=== PATIENT | female | born 1980 | race American Indian/Alaskan Native ===

== ENCOUNTER 2019-09-05 09:51 | Emergency (ER) | payer SELFPAY ==
[2019-09-05] MEDS ORDERED: ALBUTEROL 2.5 MG/3 ML NEBU IH ONE (10:27)
[2019-09-05] MEDS ORDERED: IPRATROPIUM 0.02% NEBU 2.5 ML IH ONE (10:27)
[2019-09-05] MEDS ORDERED: methylPREDNISolone Sod Succinate 125 MG/2 ML INJ IV ONE (10:27)
[2019-09-05] MEDS ORDERED: FUROSEMIDE 40 MG/4 ML INJ IV ONE ×2 (10:30→14:28)
[2019-09-05] MEDS ORDERED: NITROGLYCERIN 2% OINT 1 GM TP ONE (10:32)
--- NOTE | 2019-09-05 10:34 | Emergency Department Report ---
ED Shortness of Breath HPI - General Chief Complaint: Dyspnea/Respdistress Stated Complaint: DIFFICULTY BREATHING Time Seen by Provider: 09/05/19 10:14 Source: patient Mode of arrival: Stretcher Limitations: No Limitations - History of Present Illness Initial Comments: Mrs. Mclean is a 39-year-old female with history of hypertension who presents with cough wheezing fever for 2 weeks. [place] No other sick contacts. No previous history of lung disease. She arrived per EMS. She has not been taking her blood pressure medication on a regular basis. MD Complaint: shortness of breath -: Gradual, week(s) (2) Severity: severe Consistency: constant Improves With: nothing Worsens With: nothing - Related Data Home Medications Medication Instructions Recorded Confirmed Last Taken Amlodipine Besylate [Norvasc] 10 mg PO DAILY 09/05/19 09/05/19 09/04/19 Allergies Allergy/AdvReac Type Severity Reaction Status Date / Time No Known Allergies Allergy Unverified 09/05/19 10:15 ED Review of Systems ROS: Stated complaint: DIFFICULTY BREATHING Other details as noted in HPI Comment: All other systems reviewed and negative Constitutional: denies: fever, malaise Respiratory: cough, shortness of breath, wheezing Cardiovascular: denies: chest pain Gastrointestinal: denies: abdominal pain, nausea, vomiting ED Past Medical Hx - Past Medical History Previous Medical History?: Yes Hx Hypertension: Yes Hx Heart Attack/AMI: Yes - Surgical History Past Surgical History?: Yes Additional Surgical History: c section - Social History Smoking Status: Never Smoker Substance Use Type: None - Medications Home Medications: Home Medications Medication Instructions Recorded Confirmed Last Taken Type Amlodipine Besylate [Norvasc] 10 mg PO DAILY 09/05/19 09/05/19 09/04/19 History ED Physical Exam - General Limitations: No Limitations General appearance: alert, anxious, in distress, other (Tripod position obvious work of breathing patient appears uncomfortable) - Head Head exam: Present: atraumatic, normocephalic - Eye Eye exam: Present: normal appearance - ENT ENT exam: Present: mucous membranes moist - Neck Neck exam: Present: normal inspection, full ROM - Respiratory Respiratory exam: Present: respiratory distress, rales, decreased breath sounds, prolonged expiratory. Absent: chest wall tenderness - Cardiovascular Cardiovascular Exam: Present: normal rhythm, tachycardia, normal heart sounds. Absent: systolic murmur, diastolic murmur, rubs, gallop - GI/Abdominal GI/Abdominal exam: Present: soft, normal bowel sounds. Absent: distended, tenderness, guarding, rebound - Extremities Exam Extremities exam: Present: normal inspection - Neurological Exam Neurological exam: Present: alert, oriented X3 - Psychiatric Psychiatric exam: Present: normal affect, normal mood - Skin Skin exam: Present: warm, dry, intact, normal color. Absent: rash ED Course Vital Signs 09/05/19 09/05/19 09/05/19 10:00 10:10 10:30 Temperature 98.5 F Pulse Rate 110 H 114 H 106 H Respiratory 22 22 16 Rate Blood Pressure 251/168 251/168 Blood Pressure [Left] O2 Sat by Pulse 97 96 Oximetry 09/05/19 09/05/19 09/05/19 10:58 11:00 11:30 Temperature Pulse Rate 104 H 92 H 90 Respiratory 15 17 Rate Blood Pressure 249/144 249/144 225/149 Blood Pressure 225/149 [Left] O2 Sat by Pulse 97 98 Oximetry 09/05/19 09/05/19 09/05/19 12:04 12:25 12:30 Temperature Pulse Rate 92 H 85 Respiratory 13 Rate Blood Pressure 218/130 234/137 234/137 Blood Pressure [Left] O2 Sat by Pulse 97 99 Oximetry 09/05/19 09/05/19 09/05/19 12:46 12:58 13:27 Temperature Pulse Rate 87 86 82 Respiratory 15 Rate Blood Pressure 195/137 Blood Pressure 195/137 182/115 [Left] O2 Sat by Pulse Oximetry ED Medical Decision Making - Lab Data Result diagrams: 09/05/19 10:43 09/05/19 10:43 - Radiology Data Radiology results: report reviewed AP portable chest: Mild cardiomegaly with interstitial pulmonary edema no infiltrate - Medical Decision Making Hypertensive urgency, acute new onset congestive heart failure, pulmonary edema, admitted to the hospital service. Critical care attestation.: If time is entered above; I have spent that time in minutes in the direct care of this critically ill patient, excluding procedure time. ED Disposition Clinical Impression: New onset of congestive heart failure, Hypertensive emergency, Pulmonary edema Disposition: OP ADMIT IP TO THIS HOSP Is pt being admited?: Yes Does the pt Need Aspirin: No Condition: Stable
[2019-09-05 11:04] LABS: Basophils # (Auto) 0.1 K/mm3 (0.0-0.1); Basophils % (Auto) 0.9 % (0.0-1.8); Eosinophils # (Auto) 0.3 K/mm3 (0.0-0.4); Eosinophils % (Auto) 2.1 % (0.0-4.3); Hematocrit 30.7 % (30.3-42.9); Hemoglobin 9.4 gm/dl (10.1-14.3); Lymphocytes # (Auto) 2.1 K/mm3 (1.2-5.4); Mean Corpuscular HGB Conc 31 % (30-34); Mean Corpuscular Volume 71 fl (79-97); Monocytes # (Auto) 0.7 K/mm3 (0.0-0.8); Monocytes % (Auto) 5.9 % (0.0-7.3); Platelet Count 550 K/mm3 (140-440); Red Blood Count 4.35 M/mm3 (3.65-5.03); Red Cell Distribution Width 17.8 % (13.2-15.2)
--- NOTE | 2019-09-05 11:05 | XRay Report ---
CHEST 1 VIEW INDICATION: Dyspnea. Shortness of breath for 3 weeks COMPARISON: None FINDINGS: Support devices: None. Heart: Mild cardiomegaly. Lungs/Pleura: Mild edema. No pleural effusion. Additional findings: None. IMPRESSION: 1. Mild cardiomegaly with mild edema. Signer Name: Reinier Barrow MD Signed: 09/05/2019 11:00 AM Workstation Name: [id number]
[2019-09-05 11:23] LABS: C-Reactive Protein 0.7 mg/dL (0.00-1.30)
--- NOTE | 2019-09-05 14:17 | Event Note ---
Date: 09/05/19 39-year-old female presents to ED for evaluation. Patient seen and evaluated in the emergency department and found to have accelerated hypertension secondary to medication noncompliance. Patient treated with antihypertensive therapy and supportive care with resolution of symptoms. Patient medically optimized and back to usual state of health. Patient counseled regarding medication noncompliance. Patient reports noncompliance with antihypertensive therapy for the past 2 months. Patient counseled and informed that noncompliance with medi cation may result in worsening symptoms and even . Patient knowledges understanding instructions. Patient reports she will attempt to be more compliant in the future. Patient instructed to follow-up with primary care physician within 3 to 5 days with blood pressure log that is taken twice a day before meals. Patient struck to follow-up with cardiology as directed. ED Physical Exam - General Limitations: No Limitations General appearance: alert, anxious, in distress, other (Tripod position obvious work of breathing patient appears uncomfortable) - Head Head exam: Present: atraumatic, normocephalic - Eye Eye exam: Present: normal appearance - ENT ENT exam: Present: mucous membranes moist - Neck Neck exam: Present: normal inspection, full ROM - Respiratory Respiratory exam: Present: respiratory distress, rales, decreased breath sounds, prolonged expiratory. Absent: chest wall tenderness - Cardiovascular Cardiovascular Exam: Present: normal rhythm, tachycardia, normal heart sounds. Absent: systolic murmur, diastolic murmur, rubs, gallop - GI/Abdominal GI/Abdominal exam: Present: soft, normal bowel sounds. Absent: distended, tenderness, guarding, rebound - Extremities Exam Extremities exam: Present: normal inspection - Neurological Exam Neurological exam: Present: alert, oriented X3 - Psychiatric Psychiatric exam: Present: normal affect, normal mood - Skin Skin exam: Present: warm, dry, intact, normal color. Absent: rash
[2019-09-05] MEDS ORDERED: LISINOPRIL 10 MG TAB PO ONE (14:20)
[2019-09-05] MEDS ORDERED: METOPROLOL TARTRATE 50 MG TAB PO ONE (15:32)
[2019-09-05] MEDS ORDERED: amLODIPine 5 MG TAB PO ONE (15:32)
[2019-09-05] MEDS ORDERED: METOPROLOL TARTRATE 25 MG TAB PO ONE (16:00)
[2019-09-05] MEDS ORDERED: amLODIPine 10 MG TAB PO ONE (16:00)
[2019-09-05 18:17] VITALS: BP 175/119
== END 2019-09-05 19:02 | disposition admitted as inpatient to this hospital (09) ==
LOC: ED 09:51
DX: I11.0 Hypertensive heart disease with heart failure (principal); I50.1 Left ventricular failure, unspecified; I16.1 Hypertensive emergency; I25.2 Old myocardial infarction; Z98.890 Other specified postprocedural states
CPT/HCPCS: 36415; 71045; 80048; 82728; 83615; 83880; 84484; 85025; 86140; 87040; 96374; 96375; 96376; 99284; J1940

== ENCOUNTER 2020-02-24 02:04 | Inpatient (IN) | payer OTHER, SELFPAY ==
[2020-02-24] MEDS ORDERED: KETOROLAC 30 MG/1 ML INJ IV ONE ×2 (02:25→15:26)
[2020-02-24] MEDS ORDERED: ONDANSETRON 4 MG/2 ML INJ IV ONE (02:25)
[2020-02-24] MEDS ORDERED: HYDROmorphone 1 MG/1 ML INJ IV ONE ×3 (02:25→06:00)
--- NOTE | 2020-02-24 02:52 | Emergency Department Report ---
ED Abdominal Pain HPI - General Chief Complaint: Abdominal Pain Stated Complaint: ABD/BACK PAIN Time Seen by Provider: 02/24/20 02:43 Source: EMS Mode of arrival: Ambulatory Limitations: No Limitations - History of Present Illness Initial Comments: 39-year-old female the past medical history of obesity, hypertension, kidney stones presents the hospital planing of abdominal pain x1 day. Pain is across to the mid and top abdomen and radiates to the right flank and back. Pain is constant feels like her stomach is "balling up" and aggravated with movement and palpation. Pain is rated 10/10 in intensity without aggravating or alleviating factors reported. She denies nausea, vomiting, melena, hematochezia, diarrhea, dysuria, or hematuria. Patient also presents with significant hypertension has been out of her blood pressure medication x1 week. She currently denies headache, blurred vision, chest pain, shortness of breath, change in urine outp ut. Currently on menstrual cycle Severity scale (0 -10): 10 - Related Data Home Medications Medication Instructions Recorded Confirmed Last Taken Amlodipine Besylate [Norvasc] 10 mg PO DAILY 09/05/19 09/05/19 09/04/19 Previous Rx's Medication Instructions Recorded Last Taken Type Furosemide [Lasix] 20 mg PO QDAY #30 tablet 09/05/19 Unknown Rx Lisinopril [Zestril] 5 mg PO DAILY #30 tablet 09/05/19 Unknown Rx Metoprolol [Lopressor TAB] 25 mg PO BID #60 tablet 09/05/19 Unknown Rx Simvastatin 40 mg PO DAILY #30 tablet 09/05/19 Unknown Rx Allergies Allergy/AdvReac Type Severity Reaction Status Date / Time No Known Allergies Allergy Unverified 09/05/19 10:15 ED Review of Systems ROS: Stated complaint: ABD/BACK PAIN Other details as noted in HPI Comment: All other systems reviewed and negative ED Past Medical Hx - Past Medical History Hx Hypertension: Yes Hx Heart Attack/AMI: Yes Additional medical history: Chronic renal insufficiency - Surgical History Additional Surgical History: c section - Social History Smoking Status: Former Smoker Substance Use Type: None - Medications Home Medications: Home Medications Medication Instructions Recorded Confirmed Last Taken Type Amlodipine Besylate [Norvasc] 10 mg PO DAILY 09/05/19 09/05/19 09/04/19 History Furosemide [Lasix] 20 mg PO QDAY #30 tablet 09/05/19 Unknown Rx Lisinopril [Zestril] 5 mg PO DAILY #30 tablet 09/05/19 Unknown Rx Metoprolol [Lopressor TAB] 25 mg PO BID #60 tablet 09/05/19 Unknown Rx Simvastatin 40 mg PO DAILY #30 tablet 09/05/19 Unknown Rx ED Physical Exam - General Limitations: No Limitations - Other Other exam information: General: Positive distress secondary to pain Head: Atraumatic Eyes: normal appearance ENT: Moist mucous membranes Neck: Normal appearance, no midline tenderness Chest: Clear to auscultation bilaterally CV: Regular rate and rhythm Abdomen: Soft, normal bowel sounds, mid and upper abdominal tenderness greatest in the epigastric and right upper quadrant, nondistended, no rebound or guarding Back: Normal inspection Extremity: Normal inspection, full range of motion Neuro: Alert O x 3, no facial asymmetry, speech clear, no gross motor sensory deficit Psych: Appropriate behavior Skin: No rash ED Course Vital Signs 02/24/20 02/24/20 02/24/20 02:14 02:19 03:10 Temperature 98.9 F 98.7 F Pulse Rate 100 H 98 H 80 Respiratory 18 17 Rate Blood Pressure 262/168 Blood Pressure 262/168 237/141 [Left] O2 Sat by Pulse 99 97 Oximetry 02/24/20 02/24/20 02/24/20 04:31 04:55 05:22 Temperature Pulse Rate 87 80 82 Respiratory 17 18 16 Rate Blood Pressure Blood Pressure 239/143 231/130 219/132 [Left] O2 Sat by Pulse 97 96 98 Oximetry ED Medical Decision Making - Lab Data Result diagrams: 02/24/20 02:53 02/24/20 02:53 Lab Results 02/24/20 02/24/20 02/24/20 Range/Units 02:53 02:53 02:53 WBC 12.7 H (4.5-11.0) K/mm3 RBC 4.65 (3.65-5.03) M/mm3 Hgb 10.0 L (10.1-14.3) gm/dl Hct 32.6 (30.3-42.9) % MCV 70 L (79-97) fl MCH 22 L (28-32) pg MCHC 31 (30-34) % RDW 17.9 H (13.2-15.2) % Plt Count 458 H (140-440) K/mm3 Lymph % (Auto) 8.9 L (13.4-35.0) % [place] % (Auto) 4.4 (0.0-7.3) % Eos % (Auto) 1.9 (0.0-4.3) % Baso % (Auto) 0.6 (0.0-1.8) % Lymph # 1.1 L (1.2-5.4) K/mm3 [place] # 0.6 (0.0-0.8) K/mm3 Eos # 0.2 (0.0-0.4) K/mm3 Baso # 0.1 (0.0-0.1) K/mm3 Seg Neutrophils % 84.2 H (40.0-70.0) % Seg Neutrophils # 10.7 H (1.8-7.7) K/mm3 Sodium 137 (137-145) mmol/L Potassium 4.2 (3.6-5.0) mmol/L Chloride 98.8 (98-107) mmol/L Carbon Dioxide 26 (22-30) mmol/L Anion Gap 16 mmol/L BUN 27 H (7-17) mg/dL Creatinine 1.7 H (0.6-1.2) mg/dL Estimated GFR 40 ml/min BUN/Creatinine Ratio 16 % Glucose 118 H (65-100) mg/dL Calcium 10.1 (8.4-10.2) mg/dL Total Bilirubin 0.20 (0.1-1.2) mg/dL AST 18 (5-40) units/L ALT 13 (7-56) units/L Alkaline Phosphatase 94 (35-129) units/L Total Protein 7.9 (6.3-8.2) g/dL Albumin 3.9 (3.9-5) g/dL Albumin/Globulin Ratio 1.0 % Lipase 232 H (13-60) units/L HCG, Qual Negative (Negative) - Radiology Data Radiology results: report reviewed CT ABDOMEN AND PELVIS WITHOUT CONTRAST INDICATION: mid and right sided abd pain. TECHNIQUE: Axial CT images were obtained through the abdomen and pelvis without IV contrast. All CT scans at this location are performed using CT dose reduction for ALARA by means of automated exposure control. COMPARISON: None available. FINDINGS: LOWER CHEST: Moderate cardiomegaly LIVER: No significant abnormality. GALLBLADDER: Surgically absent BILE DUCTS: No significant abnormality. PANCREAS: Moderate acute pancreatitis with focal 3 mm calcification in the pancreatic duct ampullary region SPLEEN: No significant abnormality. ADRENALS: No significant abnormality. RIGHT KIDNEY and URETER: 2.8 cm right renal cyst. LEFT KIDNEY and URETER: Moderately atrophic STOMACH and SMALL BOWEL: Thickening involving the third portion of duodenum likely reactive from adjacent pancreatitis COLON: No significant abnormality. APPENDIX: Normal. PERITONEUM: No free fluid. No free air. No fluid collection. LYMPH NODES: No significant adenopathy. AORTA and ARTERIES: No significant abnormality. IVC and VEINS: No significant abnormality. URINARY BLADDER: No significant abnormality. REPRODUCTIVE ORGANS: No significant abnormality. ADDITIONAL FINDINGS: None. SKELETAL SYSTEM: No significant abnormality. IMPRESSION: 1. Moderate acute pancreatitis. 2. No urinary tract calculi or hydronephrosis. - Medical Decision Making CT laboratory findings of acute pancreatitis. Patient states she drinks alcohol only on occasion and has never had pancreatitis before. Given findings of new onset pancreatitis, continued pain, and poorly controlled blood pressure despite repeated doses of labetalol IV patient will be admitted to the hospital service for further treatment. At this time patient does not have symptoms of hypertensive emergency and denies headache, shortness of breath/pulmonary edema, blurry vision, or chest pain. As per medical record patient does have previous findings of renal sufficiency and her current creatinine is Similar to her baseline Case discussed with hospitalist. Patient receiving a labetalol 20 mg IV dose at time of disposition for persistent hypertension. It is however, trending downward since initial presentation. Admission orders placed MedSurg and can be upgraded as needed if patient requires an IV drip for blood pressure control as per hospitalist discretion Critical Care Time: No Critical care attestation.: If time is entered above; I have spent that time in minutes in the direct care of this critically ill patient, excluding procedure time. ED Disposition Clinical Impression: Uncontrolled hypertension, Noncompliance with diet and medication regimen, Acute pancreatitis Disposition: OP ADMIT IP TO THIS HOSP Is pt being admited?: Yes Condition: Stable Time of Disposition: 05:41 (Dr Jay/hosp)
[2020-02-24 03:36] LABS: Basophils # (Auto) 0.1 K/mm3 (0.0-0.1); Basophils % (Auto) 0.6 % (0.0-1.8); Eosinophils # (Auto) 0.2 K/mm3 (0.0-0.4); Eosinophils % (Auto) 1.9 % (0.0-4.3); Hematocrit 32.6 % (30.3-42.9); Lymphocytes # (Auto) 1.1 K/mm3 (1.2-5.4); Lymphocytes % (Auto) 8.9 % (13.4-35.0); Mean Corpuscular HGB Conc 31 % (30-34); Mean Corpuscular Volume 70 fl (79-97); Monocytes # (Auto) 0.6 K/mm3 (0.0-0.8); Monocytes % (Auto) 4.4 % (0.0-7.3); Platelet Count 458 K/mm3 (140-440); Red Blood Count 4.65 M/mm3 (3.65-5.03); Red Cell Distribution Width 17.9 % (13.2-15.2)
[2020-02-24 04:18] LABS: Albumin 3.9 g/dL (3.9-5); Calcium 10.1 mg/dL (8.4-10.2)
[2020-02-24] MEDS: ONDANSETRON 4 MG/2 ML INJ IV ONE (04:36)
--- NOTE | 2020-02-24 05:04 | Cat Scan Report ---
CT ABDOMEN AND PELVIS WITHOUT CONTRAST INDICATION: mid and right sided abd pain. TECHNIQUE: Axial CT images were obtained through the abdomen and pelvis without IV contrast. All CT scans at [facility] location are performed using CT dose reduction for ALARA by means of automated exposure control. COMPARISON: None available. FINDINGS: LOWER CHEST: Moderate cardiomegaly LIVER: No significant abnormality. GALLBLADDER: Surgically absent BILE DUCTS: No significant abnormality. PANCREAS: Moderate acute pancreatitis with focal 3 mm calcification in the pancreatic duct ampullary region SPLEEN: No significant abnormality. ADRENALS: No significant abnormality. RIGHT KIDNEY and URETER: 2.8 cm right renal cyst. LEFT KIDNEY and URETER: Moderately atrophic STOMACH and SMALL BOWEL: Thickening involving the third portion of duodenum likely reactive from [facility] pancreatitis COLON: No significant abnormality. APPENDIX: Normal. PERITONEUM: No free fluid. No free air. No fluid collection. LYMPH NODES: No significant adenopathy. AORTA and ARTERIES: No significant abnormality. IVC and VEINS: No significant abnormality. URINARY BLADDER: No significant abnormality. REPRODUCTIVE ORGANS: No significant abnormality. ADDITIONAL FINDINGS: None. SKELETAL SYSTEM: No significant abnormality. IMPRESSION: 1. Moderate acute pancreatitis. 2. No urinary tract calculi or hydronephrosis. Signer Name: Guanakito Degroot MD Signed: 02/24/2020 5:00 AM Workstation Name: [id number]
--- NOTE | 2020-02-24 07:00 | History and Physical Report ---
History of Present Illness Date of examination: 02/24/20 Date of admission: 02/24/2020 Chief complaint: Abdominal Pain History of present illness: 39-year-old -[place] female with known history of hypertension, history of kidney stones, hyperlipidemia and obesity presenting to the emergency room today complaining of abdominal pain radiating towards right flank and back. Pain is said to be 10/10 in severity. No known relieving or exacerbating factor. She has known history of kidney stones in the past. She has had some nausea but no vomiting and no diarrhea. She denies any hematuria or dysuria, she denies any fever or chills. Patient states she is currently on her menses. Upon arrival in the emergency room patient had elevated blood pressure with systolic in the 200s and diastolic in the 120s. She has had multiple rounds of IV labetalol without any significant improvement. Patient admits that she has been out of her medication for a couple of weeks. Work-up in the emergency room reveals elevated lipase and CT of the abdomen and pelvis reveals acute pancreatitis. She has been started on IV fluid and IV analgesic medication. Past History Past Medical History: CAD, hypertension, hyperlipidemia, renal failure (Chronic) Past Surgical History: No surgical history Social history: smoking (Former smoker), alcohol abuse (Occasional alcohol) Family history: no significant family history Medications and Allergies Allergies Allergy/AdvReac Type Severity Reaction Status Date / Time No Known Allergies Allergy Unverified 09/05/19 10:15 Home Medications Medication Instructions Recorded Confirmed Last Taken Type Amlodipine Besylate [Norvasc] 10 mg PO DAILY 09/05/19 09/05/19 09/04/19 History Furosemide [Lasix] 20 mg PO QDAY #30 tablet 09/05/19 Unknown Rx Lisinopril [Zestril] 5 mg PO DAILY #30 tablet 09/05/19 Unknown Rx Metoprolol [Lopressor TAB] 25 mg PO BID #60 tablet 09/05/19 Unknown Rx Simvastatin 40 mg PO DAILY #30 tablet 09/05/19 Unknown Rx Active Meds: Active Medications Heparin Sodium (Porcine) (Heparin) 5,000 unit SUB-Q Q8HR INDU Hydromorphone HCl (Dilaudid) 0.5 mg IV Q3H PRN PRN Reason: Pain , Severe (7-10) Sodium Chloride (Nacl 0.9% 1000 Ml) 1,000 mls @ 125 mls/hr IV DIRECT INDU Nicardipine HCl 50 mg/ Sodium (Chloride) 250 mls @ 25 mls/hr IV TITR INDU; Protocol Ondansetron HCl (Zofran) 4 mg IV Q8H PRN PRN Reason: Nausea And Vomiting Sodium Chloride (Sodium Chloride Flush Syringe 10 Ml) 10 ml IV BID INDU Sodium Chloride (Sodium Chloride Flush Syringe 10 Ml) 10 ml IV PRN PRN PRN Reason: LINE FLUSH Review of Systems Constitutional: no fever, no chills Ears, nose, mouth and throat: no nasal congestion, no sore throat Cardiovascular: no chest pain, no palpitations Respiratory: no cough, no shortness of breath Gastrointestinal: abdominal pain, nausea, no vomiting, no diarrhea Genitourinary Female: flank pain, no dysuria, no urgency, no hematuria Menstruation: other (Currently having her menstruation.) Musculoskeletal: no neck pain, no low back pain Integumentary: no rash, no pruritis Neurological: no headaches, no confusion Psychiatric: no anxiety, no depression Exam - Constitutional Vitals: Temp Pulse Resp BP Pulse Ox 98.7 F 84 18 223/134 98 02/24/20 02:19 02/24/20 06:24 02/24/20 06:24 02/24/20 06:24 02/24/20 06:24 General appearance: Present: no acute distress, well-nourished, obese - EENT Eyes: Present: PERRL, EOM intact ENT: hearing intact, clear oral mucosa, dentition normal - Neck Neck: Present: supple, normal ROM - Respiratory Respiratory effort: normal Respiratory: bilateral: CTA - Cardiovascular Rhythm: regular Heart Sounds: Present: S1 & S2. Absent: gallop, systolic murmur, diastolic murmur, rub - Extremities Extremities: no ischemia, pulses intact, pulses symmetrical, No edema, Full ROM Peripheral Pulses: within normal limits - Abdominal General gastrointestinal: Present: soft, tender, non-distended, normal bowel sounds. Absent: mass Localized gastrointestinal: tender: epigastric periumbilical, guarding: epigastric periumbilical - Integumentary Integumentary: Present: clear, warm, dry - Musculoskeletal Musculoskeletal: strength equal bilaterally - Psychiatric Psychiatric: appropriate mood/affect, intact judgment & insight, memory intact, cooperative - Neurologic Neurologic: CNII-XII intact, no focal deficits, moves all extremities Results - Labs CBC & Chem 7: 02/24/20 02:53 02/24/20 02:53 Labs: Abnormal lab results 02/24/20 02/24/20 Range/Units 02:53 02:53 WBC 12.7 H (4.5-11.0) K/mm3 Hgb 10.0 L (10.1-14.3) gm/dl MCV 70 L (79-97) fl MCH 22 L (28-32) pg RDW 17.9 H (13.2-15.2) % Plt Count 458 H (140-440) K/mm3 Lymph % (Auto) 8.9 L (13.4-35.0) % Lymph # 1.1 L (1.2-5.4) K/mm3 Seg Neutrophils % 84.2 H (40.0-70.0) % Seg Neutrophils # 10.7 H (1.8-7.7) K/mm3 BUN 27 H (7-17) mg/dL Creatinine 1.7 H (0.6-1.2) mg/dL Glucose 118 H (65-100) mg/dL Lipase 232 H (13-60) units/L Assessment and Plan - Patient Problems (1) Acute pancreatitis Current Visit: Yes Status: Acute Plan to address problem: Patient made n.p.o. Has been placed on IV fluid and IV analgesic medication. (2) Hypertensive urgency Current Visit: Yes Status: Acute Plan to address problem: Possibly secondary to noncompliance with medications. Patient has been placed on Cardene drip and will monitor in the intensive care unit. (3) Noncompliance with diet and medication regimen Current Visit: Yes Status: Acute Plan to address problem: Counseled on compliance with medications. (4) DVT prophylaxis Current Visit: Yes Status: Acute Plan to address problem: Patient placed on subcutaneous heparin. (5) Full code status Current Visit: Yes Status: Acute
[2020-02-24] MEDS ORDERED: ONDANSETRON 4 MG/2 ML INJ ONE (08:00)
[2020-02-24] MEDS: ONDANSETRON 4 MG/2 ML INJ IV PRN ×2 (08:00→22:44)
[2020-02-24] MEDS: HYDROmorphone 1 MG/1 ML INJ IV PRN ×5 (08:00→21:28)
[2020-02-24] MEDS ORDERED: HYDROmorphone 1 MG/1 ML INJ ONE (08:00)
[2020-02-24] MEDS: niCARdipine 50 MG in SODIUM CHLORIDE 0.9% 250ML 230 ML IV SCH ×3 (08:10→21:34)
[2020-02-24 08:30] LABS: Bacteria,Urine 1+ /HPF (Negative); Bilirubin,Urine NEG (Negative); Blood,Urine LG (Negative); Color,Urine Yellow (Yellow); Mucus,Urine FEW /HPF; Urobilinogen,Urine < 2.0 mg/dL (<2.0)
[2020-02-24 08:34] LABS: Protein,Urine >500 mg/dL (Negative)
[2020-02-24] MEDS ORDERED: LISINOPRIL 5 MG TAB PO SCH (10:00)
--- NOTE | 2020-02-24 10:12 | Ultrasound Report ---
ULTRASOUND ABDOMEN, COMPLETE INDICATION: Acute pancreatitis. COMPARISON: No relevant prior imaging study available. FINDINGS: Pancreas: Not well-visualized due to overlying bowel gas. Abdominal Aorta: No significant abnormality. IVC: No significant abnormality. Liver: The liver measures 13.2 cm in length. No significant abnormality. Normal hepatopedal blood kyra w in the main portal vein. Gallbladder: Surgically absent. Bile ducts: No significant abnormality. Common bile duct measures 4 mm. Right kidney: 10.7 cm in length. 2.3 cm simple cyst laterally.. Left kidney: 10.5 cm in length. No significant abnormality. Spleen: No significant abnormality. Free fluid: None. Additional Findings: None. IMPRESSION: 1. No acute sonographic abnormality of the abdomen. 2. Pancreas not well-visualized due to overlying bowel gas. Signer Name: Chance Leon MD Signed: 02/24/2020 10:08 AM Workstation Name: [id number]
[2020-02-24] MEDS: METOPROLOL TARTRATE 25 MG TAB PO SCH ×2 (10:17→21:27)
[2020-02-24] MEDS: amLODIPine 5 MG TAB PO SCH (10:22)
[2020-02-24] MEDS: SODIUM CHLORIDE 0.9% 1000 ML 1,000 ML IV SCH ×2 (12:41→19:18)
--- NOTE | 2020-02-24 12:47 | Consultation ---
History of Present Illness Consult date: 02/24/20 Requesting physician: VIANCA SMITH History of present illness: 39-year-old -[place] female with known history of hypertension, history of kidney stones, hyperlipidemia and obesity presenting to the emergency room today complaining of abdominal pain radiating towards right flank and back. Pain is said to be 10/10 in severity. No known relieving or exacerbating factor. She has known history of kidney stones in the past. She has had some nausea but no vomiting and no diarrhea. She denies any hematuria or dysuria, she denies any fever or chills. Patient states she is currently on her mentrual cycle Upon arrival in the emergency room patient had elevated blood pressure with systolic in the 200s and diastolic in the 120s. She has had multiple rounds of IV labetalol without any significant improvement and was started on a Nicardipine infusion Patient admits that she has been out of her medication for a couple of weeks. She denies any history of tobacco use , drinks ocassionally Work-up in the emergency room reveals elevated lipase and CT of the abdomen and pelvis reveals acute pancreatitis. She has been started on IV fluid and IV analgesic medication. I have been consulted fro critical care management. Patient was seen and examined. Vitals, labs, medications, chart reviewed. She remains on Nicardipine infusion with sustained SBP in the 180s. She ongoing complaints of abdominal pain. No nausea or vomiting. Review of Systems Constitutional: no fever, no chills Ears, nose, mouth and throat: no nasal congestion, no sore throat Cardiovascular: no chest pain, no palpitations Respiratory: no cough, no shortness of breath Gastrointestinal: abdominal pain, nausea, no vomiting, no diarrhea Genitourinary Female: flank pain, no dysuria, no urgency, no hematuria Menstruation: other (Currently having her menstruation.) Musculoskeletal: no neck pain, no low back pain Integumentary: no rash, no pruritis Neurological: no headaches, no confusion Psychiatric: no anxiety, no depression Past History Past Medical History: CAD, hypertension, hyperlipidemia, renal failure (Chronic) Past Surgical History: No surgical history Social history: smoking (Former smoker), alcohol abuse (Occasional alcohol) Family history: no significant family history Medications and Allergies Allergies Allergy/AdvReac Type Severity Reaction Status Date / Time No Known Allergies Allergy Unverified 09/05/19 10:15 Home Medications Medication Instructions Recorded Confirmed Last Taken Type Amlodipine Besylate [Norvasc] 10 mg PO DAILY 09/05/19 02/24/20 09/04/19 History Furosemide [Lasix] 20 mg PO QDAY #30 tablet 09/05/19 02/24/20 Unknown Rx Lisinopril [Zestril] 5 mg PO DAILY #30 tablet 09/05/19 02/24/20 Unknown Rx Metoprolol [Lopressor TAB] 25 mg PO BID #60 tablet 09/05/19 02/24/20 Unknown Rx Active Meds: Active Medications Amlodipine Besylate (Amlodipine) 10 mg PO DAILY [facility] Last Admin: 02/24/20 10:22 Dose: 10 mg Documented by: Heparin Sodium (Porcine) (Heparin) 5,000 unit SUB-Q Q8HR INDU Hydromorphone HCl (Dilaudid) 0.5 mg IV Q3H PRN PRN Reason: Pain , Severe (7-10) Last Admin: 02/24/20 12:41 Dose: 0.5 mg Documented by: Sodium Chloride (Nacl 0.9% 1000 Ml) 1,000 mls @ 125 mls/hr IV DIRECT INDU Last Admin: 02/24/20 12:41 Dose: 125 mls/hr Documented by: Nicardipine HCl 50 mg/ Sodium (Chloride) 250 mls @ 25 mls/hr IV TITR INDU; Protocol Last Titration: 02/24/20 09:02 Dose: 15 mg/hr, 75 mls/hr Documented by: Metoprolol Tartrate (Metoprolol) 25 mg PO BID [facility] Last Admin: 02/24/20 10:17 Dose: 25 mg Documented by: Ondansetron HCl (Zofran) 4 mg IV Q8H PRN PRN Reason: Nausea And Vomiting Last Admin: 02/24/20 08:00 Dose: 4 mg Documented by: Pantoprazole Sodium (Protonix) 40 mg IV QDAY [facility] Sodium Chloride (Sodium Chloride Flush Syringe 10 Ml) 10 ml IV BID [facility] Last Admin: 02/24/20 10:23 Dose: 10 ml Documented by: Sodium Chloride (Sodium Chloride Flush Syringe 10 Ml) 10 ml IV PRN PRN PRN Reason: LINE FLUSH Physical Examination Vital signs: Vital Signs Temp Pulse BP 98.9 F 100 H 262/168 02/24/20 02:14 02/24/20 02:14 02/24/20 02:14 General appearance: appears uncomfortable, other (Obese, lying in bed) Eyes: non-icteric ENT: oropharynx moist Neck: supple, no lymphadenopathy, no JVD Effort: normal Ascultation: Bilateral: diminished breath sounds (at the bases) Cardiovascular: regular rate and rhythm, other (S1,S2) Gastrointestinal: normoactive bowel sounds, soft, non-tender, non-distended Integumentary: normal Extremities: no cyanosis, no edema, pink and warm, pulses normal normal mental status, non-focal exam, pupils equal and round, CN II-XII normal, motor strength normal and other (in pain) Results - Laboratory Findings CBC and BMP: 02/24/20 02:53 02/24/20 02:53 Abnormal lab findings: Abnormal Labs 02/24/20 02/24/20 02/24/20 02:53 02:53 Unknown WBC 12.7 H Hgb 10.0 L MCV 70 L MCH 22 L RDW 17.9 H Plt Count 458 H Lymph % (Auto) 8.9 L Lymph # 1.1 L Seg Neutrophils % 84.2 H Seg Neutrophils # 10.7 H BUN 27 H Creatinine 1.7 H Glucose 118 H Lipase 232 H Urine WBC (Auto) 11.0 H Assessment and Plan Hypertensive urgency Morbid obesity Acute pancreatitis, abdominal pain Medical non compliance -Coniteu with Nicardipine infusion, wean with target SBP <160 -Start home oral medications for hypertension -VTE prophylaxis -Analgesia -Stress ulcer prophylaxis in view of acute pancreatitis -Life style modification, and counselling on the need for medical compliance -Gentle IV hydration -Continue ICU care for now- once she is off the drip and BP is better controlled, can transfer out of the ICU Thank you for the consult. Will follow
--- NOTE | 2020-02-24 12:53 | Gastroenterology Consultation ---
History of Present Illness - Reason for Consult Consult date: 02/24/20 Pancreatitis Requesting physician: VIANCA SMITH - History of Present Illness The patient is a 39 yo female admitted with HTN urgency and acute pancreatitis. She has had bilateral upper quadrant pain radiating to the back with N/V for the past week. She has no hx of pain like this, but has had a CCY in the past. She is noncompliant with f/u (has no PCP) and is out of her BP meds for the past week, but they were not new. She rarely drinks EtOH (once a week) and uses [facility] about 3-4 x/month. She has no hx of PUD, and there is no family hx of pancreatitis. She has no hx of pancreatitis. She has had no abdominal trauma. A CT showed a questionable calcification near the ampulla, but no ductal dilation (and none seen on the US either). Past History Past Medical History: CAD, hypertension, hyperlipidemia, renal failure (Chronic) Past Surgical History: No surgical history Social history: smoking (Former smoker), alcohol abuse (Occasional alcohol) Family history: no significant family history Medications and Allergies Allergies Allergy/AdvReac Type Severity Reaction Status Date / Time No Known Allergies Allergy Unverified 09/05/19 10:15 Home Medications Medication Instructions Recorded Confirmed Last Taken Type Amlodipine Besylate [Norvasc] 10 mg PO DAILY 09/05/19 02/24/20 09/04/19 History Furosemide [Lasix] 20 mg PO QDAY #30 tablet 09/05/19 02/24/20 Unknown Rx Lisinopril [Zestril] 5 mg PO DAILY #30 tablet 09/05/19 02/24/20 Unknown Rx Metoprolol [Lopressor TAB] 25 mg PO BID #60 tablet 09/05/19 02/24/20 Unknown Rx Active Meds: Active Medications Amlodipine Besylate (Amlodipine) 10 mg PO DAILY [facility] Last Admin: 02/24/20 10:22 Dose: 10 mg Documented by: Heparin Sodium (Porcine) (Heparin) 5,000 unit SUB-Q Q8HR INDU Hydromorphone HCl (Dilaudid) 0.5 mg IV Q3H PRN PRN Reason: Pain , Severe (7-10) Last Admin: 02/24/20 12:41 Dose: 0.5 mg Documented by: Sodium Chloride (Nacl 0.9% 1000 Ml) 1,000 mls @ 125 mls/hr IV DIRECT INDU Last Admin: 02/24/20 12:41 Dose: 125 mls/hr Documented by: Nicardipine HCl 50 mg/ Sodium (Chloride) 250 mls @ 25 mls/hr IV TITR [facility]; Protocol Last Titration: 02/24/20 09:02 Dose: 15 mg/hr, 75 mls/hr Documented by: Metoprolol Tartrate (Metoprolol) 25 mg PO BID [facility] Last Admin: 02/24/20 10:17 Dose: 25 mg Documented by: Ondansetron HCl (Zofran) 4 mg IV Q8H PRN PRN Reason: Nausea And Vomiting Last Admin: 02/24/20 08:00 Dose: 4 mg Documented by: Pantoprazole Sodium (Protonix) 40 mg IV QDAY [facility] Sodium Chloride (Sodium Chloride Flush Syringe 10 Ml) 10 ml IV BID [facility] Last Admin: 02/24/20 10:23 Dose: 10 ml Documented by: Sodium Chloride (Sodium Chloride Flush Syringe 10 Ml) 10 ml IV PRN PRN PRN Reason: LINE FLUSH I HAVE REVIEWED/RECONCILED MEDICATIONS Review of Systems - Review of Systems All systems: negative (as noted in the HPI.) Exam - Constitutional Vital Signs: Temp Pulse Resp BP Pulse Ox 98.7 F 99 H 20 218/122 96 02/24/20 02:19 02/24/20 12:20 02/24/20 12:20 02/24/20 12:20 02/24/20 12:20 General appearance: mild distress - EENT Eyes: PERRL, EOM intact ENT: hearing intact, clear oral mucosa, dentition normal, no thrush - Neck Neck: supple, normal ROM - Respiratory Respiratory effort: normal Respiratory: bilateral: CTA - Cardiovascular Rhythm: regular Heart Sounds: Present: S1 & S2 Extremities: no ischemia, No edema - Gastrointestinal General gastrointestinal: Present: soft, tender (tender RUQ and LUQ without rebound), non-distended - Integumentary Integumentary: Present: clear, warm, dry - Neurologic Neurological: alert and oriented x3 - Labs CBC & Chem 7: 02/24/20 02:53 02/24/20 02:53 Lab Results: Laboratory Results - last 24 hr 02/24/20 02/24/20 02/24/20 02:53 02:53 02:53 WBC 12.7 H RBC 4.65 Hgb 10.0 L Hct 32.6 MCV 70 L MCH 22 L MCHC 31 RDW 17.9 H Plt Count 458 H Lymph % (Auto) 8.9 L [place] % (Auto) 4.4 Eos % (Auto) 1.9 Baso % (Auto) 0.6 Lymph # 1.1 L [place] # 0.6 Eos # 0.2 Baso # 0.1 Seg Neutrophils % 84.2 H Seg Neutrophils # 10.7 H Sodium 137 Potassium 4.2 Chloride 98.8 Carbon Dioxide 26 Anion Gap 16 BUN 27 H Creatinine 1.7 H Estimated GFR 40 BUN/Creatinine Ratio 16 Glucose 118 H Calcium 10.1 Total Bilirubin 0.20 AST 18 ALT 13 Alkaline Phosphatase 94 Total Protein 7.9 Albumin 3.9 Albumin/Globulin Ratio 1.0 Lipase 232 H HCG, Qual Negative Urine Color Urine Turbidity Urine pH Ur Specific [place] Urine Protein Urine Glucose (UA) Urine Ketones Urine Blood Urine Nitrite Urine Bilirubin Urine Urobilinogen Ur Leukocyte Esterase Urine WBC (Auto) Urine RBC (Auto) U Epithel Cells (Auto) Urine Bacteria (Auto) Urine Mucus 02/24/20 Unknown WBC RBC Hgb Hct MCV MCH MCHC RDW Plt Count Lymph % (Auto) [place] % (Auto) Eos % (Auto) Baso % (Auto) Lymph # [place] # Eos # Baso # Seg Neutrophils % Seg Neutrophils # Sodium Potassium Chloride Carbon Dioxide Anion Gap BUN Creatinine Estimated GFR BUN/Creatinine Ratio Glucose Calcium Total Bilirubin AST ALT Alkaline Phosphatase Total Protein Albumin Albumin/Globulin Ratio Lipase HCG, Qual Urine Color Yellow Urine Turbidity Clear Urine pH 6.0 Ur Specific [place] 1.020 Urine Protein >500 Urine Glucose (UA) 50 Urine Ketones Neg Urine Blood Lg Urine Nitrite Neg Urine Bilirubin Neg Urine Urobilinogen < 2.0 Ur Leukocyte Esterase Neg Urine WBC (Auto) 11.0 H Urine RBC (Auto) 149.0 U Epithel Cells (Auto) 5.0 Urine Bacteria (Auto) 1+ Urine Mucus Few Assessment and Plan - Patient Problems (1) Acute pancreatitis Current Visit: Yes Status: Acute Plan to address problem: - Possible gallstone, but LFTs WNL, and the CBD is normal in size; no indication for ERCP at present. - Will recheck labs tomorrow, and consider MRCP if labs not resolved to normal. - No indication for antibiotics since WBC <16K and afebrile. - If ERCP needed, will need improved BP control. Continue nifedipine gtt. - Patient should avoid NSAIDs and EtOH; I started protonix but doubt penetrating PUD in absence of free air.
[2020-02-24] MEDS: PANTOPRAZOLE 40 MG INJ IV SCH (14:38)
[2020-02-24] MEDS: HEPARIN 5,000 UNIT/1 ML VIAL SUB-Q SCH ×2 (14:39→21:31)
[2020-02-24] MEDS ORDERED: FAMOTIDINE 20 MG/2 ML INJ IV SCH (15:00)
[2020-02-24] MEDS ORDERED: oxyCODONE /ACETAMINOPHEN 5-325MG TAB PO ONE (15:00)
[2020-02-24] MEDS: oxyCODONE /ACETAMINOPHEN 5-325MG TAB PO PRN ×2 (19:15→23:49)
--- NOTE | 2020-02-24 20:46 | Progress Note ---
Assessment and Plan Assessment and plan: -- Acute pancreatitis Current Visit: Yes Status: Acute Plan to address problem: Patient made n.p.o. except meds Has been placed on IV fluid and IV analgesic medication. Abdominal ultrasound, GI consult -- Hypertensive emergency Current Visit: Yes Status: Acute Plan to address problem: Cardene drip, will add multiple oral hypoglycemics Closely monitor --Medical noncompliance with diet and medication regimen Current Visit: Yes Status: Acute Plan to address problem: Counseling strongly advised to adhere To the medications, diet, follow-up visits Patient verbalized understanding -- DVT prophylaxis Current Visit: Yes Status: Acute Plan to address problem: Patient placed on subcutaneous heparin. --Obesity; BMI 37.9 patient needs weight reduction when medically stable -- Full code status Current Visit: Yes Status: Acute Admit to ICU on Cardene drip Closely monitor Adjust management as needed Critical a critical care 35 minutes The high probability of a clinically significant, sudden or life threatening deterioration of the [GI, CVS, metabolic] system(s) required my full and direct attention, intervention and personal management. The aggregate critical care time was [35] minutes. This time is in addition to time spent performing reported procedures but includes the following: [x] Data Review and interpretation [x] Patient assessment and monitoring of vital signs [x] Documentation [x] Medication orders and management History Interval history: I have seen and examined the patient at the bedside Patient's chart and medications reviewed Patient is in severe distress because of abdominal pain due to pancreatitis As well as uncontrolled hypertension Complains of mild discomfort Denies chest pain or shortness of breath Vital signs reviewed Hospitalist Physical - Constitutional Vitals: Temp Pulse Resp BP Pulse Ox 97.9 F 41 L 16 150/93 95 02/24/20 19:25 02/24/20 20:21 02/24/20 20:00 02/24/20 20:00 02/24/20 20:00 General appearance: Present: no acute distress, well-nourished, obese - EENT Eyes: Present: PERRL, EOM intact - Neck Neck: Present: supple, normal ROM - Respiratory Respiratory effort: normal Respiratory: bilateral: diminished, negative: rales, rhonchi, wheezing - Cardiovascular Rhythm: regular Heart Sounds: Present: S1 & S2 - Extremities Extremities: no ischemia, No edema - Abdominal General gastrointestinal: soft, tender (No guarding no rigidity), normal bowel sounds - Integumentary Integumentary: Present: clear, warm - Psychiatric Psychiatric: appropriate mood/affect, cooperative - Neurologic Neurologic: moves all extremities Results - Labs CBC & Chem 7: 02/25/20 03:49 02/25/20 03:49 Labs: Laboratory Last Values WBC 12.7 K/mm3 (4.5-11.0) H 02/24/20 02:53 RBC 4.65 M/mm3 (3.65-5.03) 02/24/20 02:53 Hgb 10.0 gm/dl (10.1-14.3) L 02/24/20 02:53 Hct 32.6 % (30.3-42.9) 02/24/20 02:53 MCV 70 fl (79-97) L 02/24/20 02:53 MCH 22 pg (28-32) L 02/24/20 02:53 MCHC 31 % (30-34) 02/24/20 02:53 RDW 17.9 % (13.2-15.2) H 02/24/20 02:53 Plt Count 458 K/mm3 (140-440) H 02/24/20 02:53 Lymph % (Auto) 8.9 % (13.4-35.0) L 02/24/20 02:53 [place] % (Auto) 4.4 % (0.0-7.3) 02/24/20 02:53 Eos % (Auto) 1.9 % (0.0-4.3) 02/24/20 02:53 Baso % (Auto) 0.6 % (0.0-1.8) 02/24/20 02:53 Lymph # 1.1 K/mm3 (1.2-5.4) L 02/24/20 02:53 [place] # 0.6 K/mm3 (0.0-0.8) 02/24/20 02:53 Eos # 0.2 K/mm3 (0.0-0.4) 02/24/20 02:53 Baso # 0.1 K/mm3 (0.0-0.1) 02/24/20 02:53 Seg Neutrophils % 84.2 % (40.0-70.0) H 02/24/20 02:53 Seg Neutrophils # 10.7 K/mm3 (1.8-7.7) H 02/24/20 02:53 Sodium 137 mmol/L (137-145) 02/24/20 02:53 Potassium 4.2 mmol/L (3.6-5.0) 02/24/20 02:53 Chloride 98.8 mmol/L (98-107) 02/24/20 02:53 Carbon Dioxide 26 mmol/L (22-30) 02/24/20 02:53 Anion Gap 16 mmol/L 02/24/20 02:53 BUN 27 mg/dL (7-17) H 02/24/20 02:53 Creatinine 1.7 mg/dL (0.6-1.2) H 02/24/20 02:53 Estimated GFR 40 ml/min 02/24/20 02:53 BUN/Creatinine Ratio 16 % 02/24/20 02:53 Glucose 118 mg/dL (65-100) H 02/24/20 02:53 Calcium 10.1 mg/dL (8.4-10.2) 02/24/20 02:53 Total Bilirubin 0.20 mg/dL (0.1-1.2) 02/24/20 02:53 AST 18 units/L (5-40) 02/24/20 02:53 ALT 13 units/L (7-56) 02/24/20 02:53 Alkaline Phosphatase 94 units/L (35-129) 02/24/20 02:53 Total Protein 7.9 g/dL (6.3-8.2) 02/24/20 02:53 Albumin 3.9 g/dL (3.9-5) 02/24/20 02:53 Albumin/Globulin Ratio 1.0 % 02/24/20 02:53 Lipase 232 units/L (13-60) H 02/24/20 02:53 HCG, Qual Negative (Negative) 02/24/20 02:53 Urine Color Yellow (Yellow) 02/24/20 Unknown Urine Turbidity Clear (Clear) 02/24/20 Unknown Urine pH 6.0 (5.0-7.0) 02/24/20 Unknown Ur Specific [place] 1.020 (1.003-1.030) 02/24/20 Unknown Urine Protein >500 mg/dL (Negative) 02/24/20 Unknown Urine Glucose (UA) 50 mg/dL (Negative) 02/24/20 Unknown Urine Ketones Neg mg/dL (Negative) 02/24/20 Unknown Urine Blood Lg (Negative) 02/24/20 Unknown Urine Nitrite Neg (Negative) 02/24/20 Unknown Urine Bilirubin Neg (Negative) 02/24/20 Unknown Urine Urobilinogen < 2.0 mg/dL (<2.0) 02/24/20 Unknown Ur Leukocyte Esterase Neg (Negative) 02/24/20 Unknown Urine WBC (Auto) 11.0 /HPF (0.0-6.0) H 02/24/20 Unknown Urine RBC (Auto) 149.0 /HPF (0.0-6.0) 02/24/20 Unknown U Epithel Cells (Auto) 5.0 /HPF (0-13.0) 02/24/20 Unknown Urine Bacteria (Auto) 1+ /HPF (Negative) 02/24/20 Unknown Urine Mucus Few /HPF 02/24/20 Unknown [place]/IV: Voiding Method Toilet IV Catheter Type [Right Wrist] Peripheral IV IV Catheter Type [Right Peripheral IV Antecubital] Active Medications - Current Medications Current Medications: Generic Name Dose Route Start Last Admin Trade Name Freq PRN Reason Stop Dose Admin Amlodipine Besylate 10 mg 02/24/20 10:00 02/24/20 10:22 Amlodipine PO 10 mg DAILY INDU Administration Heparin Sodium (Porcine) 5,000 unit 02/24/20 14:00 02/24/20 14:39 Heparin SUB-Q 5,000 unit Q8HR INDU Administration Hydromorphone HCl 1 mg 02/24/20 17:52 Dilaudid IV Q4H PRN Pain , Severe (7-10) Sodium Chloride 1,000 mls @ 125 mls/hr 02/24/20 06:45 02/24/20 19:18 Nacl 0.9% 1000 Ml IV 125 mls/hr DIRECT INDU Administration Nicardipine HCl 50 mg/ Sodium 250 mls @ 25 mls/hr 02/24/20 07:00 02/24/20 15:16 Chloride IV 15 mg/hr TITR INDU 75 mls/hr Administration Protocol 5 MG/HR Metoprolol Tartrate 25 mg 02/24/20 10:00 02/24/20 10:17 Metoprolol PO 25 mg BID INDU Administration Ondansetron HCl 4 mg 02/24/20 06:45 02/24/20 08:00 Zofran IV 4 mg Q8H PRN Administration Nausea And Vomiting Oxycodone/Acetaminophen 1 tab 02/24/20 17:52 02/24/20 19:15 Percocet 5/325 PO 1 tab Q4H PRN Administration Pain, Moderate (4-6) Pantoprazole Sodium 40 mg 02/24/20 13:00 02/24/20 14:38 Protonix IV 40 mg QDAY INDU Administration Sodium Chloride 10 ml 02/24/20 10:00 02/24/20 10:23 Sodium Chloride Flush Syringe 10 Ml IV 10 ml BID INDU Administration Sodium Chloride 10 ml 02/24/20 06:45 Sodium Chloride Flush Syringe 10 Ml IV PRN PRN LINE FLUSH Nutrition/Malnutrition Assess - Dietary Evaluation Nutrition/Malnutrition Findings: Nutrition Notes Start: 02/24/20 13:42 Freq: Status: Active Protocol: Document 02/24/20 13:43 MK (Rec: 02/24/20 14:03 AMADEO [id number]) Co-Sign 02/24/20 13:43 LP Nutrition Notes Need for Assessment generated from: MD Order,Education Initial or Follow up Assessment Current Diagnosis Hypertension,Hyperlipidemia Other Pertinent Diagnosis Acute pancreatitis Current Diet NPO Labs/Tests NS 125 BP 218/122 Pertinent Medications Zofran Height 5 ft 1 in Weight 91 kg [place] Body Weight (kg) 47.72 BMI 37.9 Intake Prior to Admission Fair Weight Status Obese Subjective/Other Information MD consult for diet edu. Some edu provided. Pt in a lot of pain at time of visit and did not want to continue at this time. Burn Absent Trauma Absent GI Symptoms Nausea Current % PO Negligible Minimum of two criteria No physical signs of malnutrition #2 Nutrition Diagnosis Inadequate oral intake Etiology acute pancreatitis, abd pain As Evidenced by Signs and Symptoms NPO #1 Nutrition Diagnosis Food and nutrition-related knowledge deficit Etiology pt reports no previous diet edu As Evidenced by Signs and Symptoms pt had questions about diet Diagnosis Progress(for reassessment Continues documentation) Is patient on ventilator? No Is Patient Ambulatory and/or Out of Bed Yes REE-([place]-St. Jeor-ambulatory/OOB) [ 1972.594 [id number]] Kcal/Kg value to use for calculation 16 Approximate Energy Requirements Using 1456 kcal/Kg Calculation Used for Recommendations Kcal/kg Additional Notes Pro: 55-69g (0.8-1g/kg AdjBW 69 kg) Fluid: 1 ml/kcal Nutrition Intervention Change Diet Order: Advance when medically feasible Teaching Recipient Patient Learning Readiness Fair Teaching Methods Discussion Response to Teaching Reinforcement needed Education Handouts Provided Low Na Barriers to Learning Physical RD phone number provided Yes Patient aware of follow up options Yes Goal #1 Diet education understanding Goal #2 Advance diet when medically feasible Follow-Up By: 02/25/20 Additional Comments FU for assessment, acute pancreatitis diet edu
[2020-02-24] MEDS: hydrALAZINE 25 MG TAB PO SCH (21:27)
[2020-02-25] MEDS: niCARdipine 50 MG in SODIUM CHLORIDE 0.9% 250ML 230 ML IV SCH ×3 (01:33→23:33)
[2020-02-25] MEDS: HYDROmorphone 1 MG/1 ML INJ IV PRN ×7 (01:34→23:33)
[2020-02-25] MEDS: SODIUM CHLORIDE 0.9% 1000 ML 1,000 ML IV SCH ×2 (02:24→18:28)
[2020-02-25] MEDS: oxyCODONE /ACETAMINOPHEN 5-325MG TAB PO PRN ×2 (03:55→08:14)
[2020-02-25 04:57] LABS: Hematocrit 30.2 % (30.3-42.9); Hemoglobin 9.4 gm/dl (10.1-14.3); Mean Corpuscular HGB Conc 31 % (30-34); Mean Corpuscular Volume 71 fl (79-97); Platelet Count 525 K/mm3 (140-440); Red Blood Count 4.28 M/mm3 (3.65-5.03); Red Cell Distribution Width 18.3 % (13.2-15.2)
[2020-02-25 04:58] LABS: Basophils # (Auto) 0.1 K/mm3 (0.0-0.1); Basophils % (Auto) 0.2 % (0.0-1.8); Eosinophils % (Auto) 0.1 % (0.0-4.3); Lymphocytes % (Auto) 3.4 % (13.4-35.0); Monocytes % (Auto) 5.5 % (0.0-7.3)
[2020-02-25] MEDS: hydrALAZINE 25 MG TAB PO SCH (05:03)
[2020-02-25] MEDS: HEPARIN 5,000 UNIT/1 ML VIAL SUB-Q SCH ×3 (05:04→21:04)
[2020-02-25 05:10] LABS: INR 1.03 (0.87-1.13)
[2020-02-25 05:13] LABS: Albumin 3.6 g/dL (3.9-5); Calcium 9.3 mg/dL (8.4-10.2)
[2020-02-25] MEDS: ONDANSETRON 4 MG/2 ML INJ IV PRN ×2 (08:19→23:33)
--- NOTE | 2020-02-25 09:30 | Progress Note ---
Assessment and Plan Assessment and plan: -- Acute pancreatitis/ Worsening Current Visit: Yes Status: Acute Plan to address problem: Patient made n.p.o. except meds Continue IV fluid and IV analgesic medication. GI following, possible MRCP Pain management -- Hypertensive emergency Current Visit: Yes Status: Acute Plan to address problem: Continue Cardene drip, will hold oral hypoglycemics Due to worsening pancreatitis with symptoms IV antihypertensives, Closely monitor --Medical noncompliance with diet and medication regimen Current Visit: Yes Status: Acute Plan to address problem: Counseling done, strongly advised to adhere To the medications, diet, follow-up visits Patient verbalized understanding -- DVT prophylaxis Current Visit: Yes Status: Acute Plan to address problem: Patient placed on subcutaneous heparin. --Obesity; BMI 37.9 patient needs weight reduction when medically stable -- Full code status Current Visit: Yes Status: Acute Follow GI and pulmonary evaluation and recommendations We will closely monitor the patient and adjust the management as needed Plan of care reviewed with the patient and her nurse Closely monitor the patient and adjust management as needed The high probability of a clinically significant, sudden or life threatening deterioration of the [GI, CVS, metabolic] system(s) required my full and direct attention, intervention and personal management. The aggregate critical care time was [33] minutes. This time is in addition to time spent performing reported procedures but includes the following: [x] Data Review and interpretation [x] Patient assessment and monitoring of vital signs [x] Documentation [x] Medication orders and management History Interval history: I have seen and examined the patient at the bedside in ICU this morning Patient's chart and medications reviewed Patient remains hypertensive on Cardene drip Patient also has worsening pancreatitis And severe abdominal pain, on IV pain medications with little relief Patient is in mild distress Vital signs noted Hospitalist Physical - Constitutional Vitals: Temp Pulse Resp BP Pulse Ox 98.6 F 105 H 22 164/99 95 02/25/20 08:00 02/25/20 08:35 02/25/20 08:25 02/25/20 08:25 02/25/20 08:25 General appearance: Present: mild distress, well-nourished, obese - EENT Eyes: Present: PERRL, EOM intact - Neck Neck: Present: supple, normal ROM - Respiratory Respiratory effort: normal Respiratory: bilateral: diminished, negative: rales, rhonchi, wheezing - Cardiovascular Rhythm: regular Heart Sounds: Present: S1 & S2 - Extremities Extremities: no ischemia, No edema - Abdominal General gastrointestinal: soft, tender, non-distended, normal bowel sounds - Integumentary Integumentary: Present: clear, warm - Psychiatric Psychiatric: appropriate mood/affect, cooperative - Neurologic Neurologic: moves all extremities Results - Labs CBC & Chem 7: 02/25/20 03:49 02/25/20 03:49 Labs: Laboratory Last Values WBC 29.1 K/mm3 (4.5-11.0) H 02/25/20 03:49 RBC 4.28 M/mm3 (3.65-5.03) 02/25/20 03:49 Hgb 9.4 gm/dl (10.1-14.3) L 02/25/20 03:49 Hct 30.2 % (30.3-42.9) L 02/25/20 03:49 MCV 71 fl (79-97) L 02/25/20 03:49 MCH 22 pg (28-32) L 02/25/20 03:49 MCHC 31 % (30-34) 02/25/20 03:49 RDW 18.3 % (13.2-15.2) H 02/25/20 03:49 Plt Count 525 K/mm3 (140-440) H 02/25/20 03:49 Lymph % (Auto) 3.4 % (13.4-35.0) L 02/25/20 03:49 [place] % (Auto) 5.5 % (0.0-7.3) 02/25/20 03:49 Eos % (Auto) 0.1 % (0.0-4.3) 02/25/20 03:49 Baso % (Auto) 0.2 % (0.0-1.8) 02/25/20 03:49 Lymph # 1.0 K/mm3 (1.2-5.4) L 02/25/20 03:49 [place] # 1.0 K/mm3 (0.0-0.8) H 02/25/20 03:49 Eos # 0.0 K/mm3 (0.0-0.4) 02/25/20 03:49 Baso # 0.1 K/mm3 (0.0-0.1) 02/25/20 03:49 Seg Neutrophils % Bar Host/Hostess 02/25/20 03:49 Seg Neutrophils # 26.4 K/mm3 (1.8-7.7) H 02/25/20 03:49 PT 13.7 Sec. (12.2-14.9) 02/25/20 03:49 INR 1.03 (0.87-1.13) 02/25/20 03:49 Sodium 136 mmol/L (137-145) L 02/25/20 03:49 Potassium 4.4 mmol/L (3.6-5.0) 02/25/20 03:49 Chloride 97.9 mmol/L (98-107) L 02/25/20 03:49 Carbon Dioxide 21 mmol/L (22-30) L 02/25/20 03:49 Anion Gap 22 mmol/L 02/25/20 03:49 BUN 39 mg/dL (7-17) H 02/25/20 03:49 Creatinine 3.0 mg/dL (0.6-1.2) H D 02/25/20 03:49 Estimated GFR 21 ml/min 02/25/20 03:49 BUN/Creatinine Ratio 13 % 02/25/20 03:49 Glucose 118 mg/dL (65-100) H 02/25/20 03:49 POC Glucose 124 (70-105) H 02/25/20 05:55 Calcium 9.3 mg/dL (8.4-10.2) 02/25/20 03:49 Total Bilirubin 0.80 mg/dL (0.1-1.2) 02/25/20 03:49 AST 19 units/L (5-40) 02/25/20 03:49 ALT 12 units/L (7-56) 02/25/20 03:49 Alkaline Phosphatase 111 units/L (35-129) 02/25/20 03:49 Total Protein 7.9 g/dL (6.3-8.2) 02/25/20 03:49 Albumin 3.6 g/dL (3.9-5) L 02/25/20 03:49 Albumin/Globulin Ratio 0.8 % 02/25/20 03:49 Lipase 1486 units/L (13-60) H 02/25/20 03:49 HCG, Qual Negative (Negative) 02/24/20 02:53 Urine Color Yellow (Yellow) 02/24/20 Unknown Urine Turbidity Clear (Clear) 02/24/20 Unknown Urine pH 6.0 (5.0-7.0) 02/24/20 Unknown Ur Specific [place] 1.020 (1.003-1.030) 02/24/20 Unknown Urine Protein >500 mg/dL (Negative) 02/24/20 Unknown Urine Glucose (UA) 50 mg/dL (Negative) 02/24/20 Unknown Urine Ketones Neg mg/dL (Negative) 02/24/20 Unknown Urine Blood Lg (Negative) 02/24/20 Unknown Urine Nitrite Neg (Negative) 02/24/20 Unknown Urine Bilirubin Neg (Negative) 02/24/20 Unknown Urine Urobilinogen < 2.0 mg/dL (<2.0) 02/24/20 Unknown Ur Leukocyte Esterase Neg (Negative) 02/24/20 Unknown Urine WBC (Auto) 11.0 /HPF (0.0-6.0) H 02/24/20 Unknown Urine RBC (Auto) 149.0 /HPF (0.0-6.0) 02/24/20 Unknown U Epithel Cells (Auto) 5.0 /HPF (0-13.0) 02/24/20 Unknown Urine Bacteria (Auto) 1+ /HPF (Negative) 02/24/20 Unknown Urine Mucus Few /HPF 02/24/20 Unknown Microbiology: Microbiology 02/24/20 Unknown Urine,Clean Catch Urine Culture - Preliminary Franks/IV: Voiding Method Toilet IV Catheter Type [Right Wrist] Peripheral IV IV Catheter Type [Right Peripheral IV Antecubital] Active Medications - Current Medications Current Medications: Generic Name Dose Route Start [facility] Reason Stop Dose Admin Amlodipine Besylate 10 mg 02/24/20 10:00 02/24/20 10:22 Amlodipine PO 10 mg DAILY INDU Administration Heparin Sodium (Porcine) 5,000 unit 02/24/20 14:00 02/25/20 05:04 Heparin SUB-Q 5,000 unit Q8HR INDU Administration Hydralazine HCl 100 mg 02/25/20 09:24 Apresoline PO Q8HR INDU Hydromorphone HCl 1 mg 02/24/20 17:52 02/25/20 04:36 Dilaudid IV 1 mg Q4H PRN Administration Pain , Severe (7-10) Sodium Chloride 1,000 mls @ 125 mls/hr 02/24/20 06:45 02/25/20 02:24 Nacl 0.9% 1000 Ml IV 125 mls/hr DIRECT INDU Administration Nicardipine HCl 50 mg/ Sodium 250 mls @ 25 mls/hr 02/24/20 07:00 02/25/20 07:30 Chloride IV 7.5 mg/hr TITR INDU 37.5 mls/hr Titration Protocol 5 MG/HR Metoprolol Tartrate 50 mg 02/25/20 09:24 Metoprolol PO BID INDU Ondansetron HCl 4 mg 02/24/20 06:45 02/25/20 08:19 Zofran IV 4 mg Q8H PRN Administration Nausea And Vomiting Oxycodone/Acetaminophen 1 tab 02/24/20 17:52 02/25/20 08:14 Percocet 5/325 PO 1 tab Q4H PRN Administration Pain, Moderate (4-6) Pantoprazole Sodium 40 mg 02/24/20 13:00 02/24/20 14:38 Protonix IV 40 mg QDAY INDU Administration Sodium Chloride 10 ml 02/24/20 10:00 02/25/20 01:35 Sodium Chloride Flush Syringe 10 Ml IV 10 ml BID INDU Administration Sodium Chloride 10 ml 02/24/20 06:45 Sodium Chloride Flush Syringe 10 Ml IV PRN PRN LINE FLUSH Nutrition/Malnutrition Assess - Dietary Evaluation Nutrition/Malnutrition Findings: Nutrition Notes Start: 02/24/20 13:42 Freq: Status: Active Protocol: Document 02/24/20 13:43 (Rec: 02/24/20 14:03 [id number]) Co-Sign 02/24/20 13:43 LP Nutrition Notes Need for Assessment generated from: MD Order,Education Initial or Follow up Assessment Current Diagnosis Hypertension,Hyperlipidemia Other Pertinent Diagnosis Acute pancreatitis Current Diet NPO Labs/Tests NS 125 BP 218/122 Pertinent Medications Zofran Height 5 ft 1 in Weight 91 kg [place] Body Weight (kg) 47.72 BMI 37.9 Intake Prior to Admission Fair Weight Status Obese Subjective/Other Information MD consult for diet edu. Some edu provided. Pt in a lot of pain at time of visit and did not want to continue at this time. Burn Absent Trauma Absent GI Symptoms Nausea Current % PO Negligible Minimum of two criteria No physical signs of malnutrition #2 Nutrition Diagnosis Inadequate oral intake Etiology acute pancreatitis, abd pain As Evidenced by Signs and Symptoms NPO #1 Nutrition Diagnosis Food and nutrition-related knowledge deficit Etiology pt reports no previous diet edu As Evidenced by Signs and Symptoms pt had questions about diet Diagnosis Progress(for reassessment Continues documentation) Is patient on ventilator? No Is Patient Ambulatory and/or Out of Bed Yes REE-([place]-St. Jeor-ambulatory/OOB) [ 1972.594 [id number]] Kcal/Kg value to use for calculation 16 Approximate Energy Requirements Using 1456 kcal/Kg Calculation Used for Recommendations Kcal/kg Additional Notes Pro: 55-69g (0.8-1g/kg AdjBW 69 kg) Fluid: 1 ml/kcal Nutrition Intervention Change Diet Order: Advance when medically feasible Teaching Recipient Patient Learning Readiness Fair Teaching Methods Discussion Response to Teaching Reinforcement needed Education Handouts Provided Low Na Barriers to Learning Physical RD phone number provided Yes Patient aware of follow up options Yes Goal #1 Diet education understanding Goal #2 Advance diet when medically feasible Follow-Up By: 02/25/20 Additional Comments FU for assessment, acute pancreatitis diet edu
[2020-02-25] MEDS: PANTOPRAZOLE 40 MG INJ IV SCH (09:50)
[2020-02-25] MEDS ORDERED: METOPROLOL TARTRATE 50 MG TAB PO SCH (10:00)
[2020-02-25] MEDS ORDERED: METOPROLOL TARTRATE 25 MG TAB PO SCH (10:00)
[2020-02-25] MEDS ORDERED: hydrALAZINE 100 MG TAB PO SCH (10:00)
[2020-02-25] MEDS: amLODIPine 5 MG TAB PO SCH (10:16)
--- NOTE | 2020-02-25 10:44 | XRay Report ---
CHEST 1 VIEW INDICATION: Pulmonary edema. COMPARISON: 09/05/2019 FINDINGS: Support devices: None. Heart: Enlarged, unchanged. There is mild pulmonary venous hypertension. Lungs/Pleura: No acute pulmonary or pleural findings. IMPRESSION: 1. No acute findings. Signer Name: Ed Maradiaga MD Signed: 02/25/2020 10:40 AM Workstation Name: [email or web address]
--- NOTE | 2020-02-25 11:04 | Progress Note ---
Assessment and Plan Hypertensive urgency Morbid obesity Acute pancreatitis, abdominal pain Medical non compliance With worsening lipase, leukocytosis and ongoing abdominal pain, will make her strict NPO. Resume Nicardipine for her blood pressure management Renal consult placed for acute renal failure- multifactorial Get CXR to r/o pulmonary edema/pleural effusions- has been on IV fluids Repeat CTabdomen and pelvis with oral contrast, no IV contrast to re-image the pancreas If CT abdomen, shows worsening inflammatory changes, start TPN. If any evidence of necrosis, will start antibiotics Supplemental oxygen as needed to keep O2 sats>90% Evaluation for sleep apnea as an outpatient Continue ICU care for now -Continue with Nicardipine infusion, wean with target SBP <160 -VTE prophylaxis -Analgesia -Stress ulcer prophylaxis in view of acute pancreatitis -Life style modification, and counselling on the need for medical compliance - IV hydration Subjective Date of service: 02/25/20 Interval history: Follow up for acute pancreatitis; hypertensive urgency;morbid obesity Seen and examined. Vitals, labs, medications, chart and imaging reviewed. On going abdominal pain; no fevers. Off Cardene infusion, reported nocturnal desaturations, Respiratory and nursing staff consulted. Objective Vital Signs - 12hr 02/24/20 02/24/20 02/24/20 23:06 23:10 23:16 Temperature Pulse Rate 95 H 94 H 94 H Pulse Rate [ From Monitor] Pulse Rate [ None] Respiratory 17 15 15 Rate Blood Pressure 143/88 143/88 141/84 O2 Sat by Pulse 95 94 93 Oximetry 02/24/20 02/24/20 02/24/20 23:20 23:24 23:26 Temperature 98.2 F Pulse Rate 94 H 95 H Pulse Rate [ From Monitor] Pulse Rate [ None] Respiratory 16 17 Rate Blood Pressure 141/84 141/84 O2 Sat by Pulse 95 95 Oximetry 02/24/20 02/24/20 02/24/20 23:30 23:36 23:40 Temperature Pulse Rate 95 H 94 H 97 H Pulse Rate [ From Monitor] Pulse Rate [ None] Respiratory 17 17 16 Rate Blood Pressure 141/84 156/81 156/81 O2 Sat by Pulse 97 95 97 Oximetry 02/24/20 02/24/20 02/24/20 23:46 23:50 23:55 Temperature Pulse Rate 94 H 95 H 95 H Pulse Rate [ From Monitor] Pulse Rate [ None] Respiratory 19 17 16 Rate Blood Pressure 156/81 162/87 O2 Sat by Pulse 96 95 96 Oximetry 02/24/20 02/25/20 02/25/20 23:56 00:00 00:06 Temperature Pulse Rate 96 H 96 H 96 H Pulse Rate [ From Monitor] Pulse Rate [ None] Respiratory 17 15 20 Rate Blood Pressure 162/87 162/87 153/85 O2 Sat by Pulse 97 98 97 Oximetry 02/25/20 02/25/20 02/25/20 00:10 00:16 00:20 Temperature Pulse Rate 94 H 95 H 95 H Pulse Rate [ From Monitor] Pulse Rate [ None] Respiratory 18 18 17 Rate Blood Pressure 153/85 151/87 151/87 O2 Sat by Pulse 96 92 95 Oximetry 02/25/20 02/25/20 02/25/20 00:26 00:30 00:36 Temperature Pulse Rate 94 H 96 H 96 H Pulse Rate [ From Monitor] Pulse Rate [ None] Respiratory 17 18 19 Rate Blood Pressure 151/87 151/87 146/87 O2 Sat by Pulse 95 95 94 Oximetry 02/25/20 02/25/20 02/25/20 00:40 00:42 00:46 Temperature Pulse Rate 95 H 95 H Pulse Rate [ From Monitor] Pulse Rate [ None] Respiratory 18 16 17 Rate Blood Pressure 146/87 126/89 O2 Sat by Pulse 95 92 Oximetry 02/25/20 02/25/20 02/25/20 00:50 00:56 01:00 Temperature Pulse Rate 96 H 96 H 98 H Pulse Rate [ From Monitor] Pulse Rate [ None] Respiratory 18 19 18 Rate Blood Pressure 126/89 126/89 126/89 O2 Sat by Pulse 95 95 94 Oximetry 02/25/20 02/25/20 02/25/20 01:06 01:10 01:16 Temperature Pulse Rate 103 H 103 H 100 H Pulse Rate [ From Monitor] Pulse Rate [ None] Respiratory 19 18 22 Rate Blood Pressure 140/89 140/89 140/89 O2 Sat by Pulse 98 Oximetry 02/25/20 02/25/20 02/25/20 01:20 01:26 01:30 Temperature Pulse Rate 95 H 94 H 95 H Pulse Rate [ From Monitor] Pulse Rate [ None] Respiratory 18 19 17 Rate Blood Pressure 140/92 140/92 140/92 O2 Sat by Pulse 97 97 96 Oximetry 02/25/20 02/25/2020 01:34 01:35 01:36 Temperature Pulse Rate 97 H Pulse Rate [ From Monitor] Pulse Rate [ None] Respiratory 19 16 19 Rate Blood Pressure 154/91 O2 Sat by Pulse 96 96 Oximetry 02/25/20 02/25/20 02/25/20 01:40 01:45 01:50 Temperature Pulse Rate 95 H 95 H 96 H Pulse Rate [ From Monitor] Pulse Rate [ None] Respiratory 18 19 17 Rate Blood Pressure 154/91 155/94 155/94 O2 Sat by Pulse 95 93 94 Oximetry 02/25/20 02/25/20 02/25/20 01:56 02:00 02:04 Temperature Pulse Rate 97 H 97 H Pulse Rate [ From Monitor] Pulse Rate [ None] Respiratory 17 18 14 Rate Blood Pressure 155/94 155/94 O2 Sat by Pulse 95 95 Oximetry 02/25/20 02/25/20 02/25/20 02:06 02:08 02:10 Temperature Pulse Rate 98 H 97 H Pulse Rate [ From Monitor] Pulse Rate [ None] Respiratory 17 16 18 Rate Blood Pressure 149/90 155/94 O2 Sat by Pulse 94 96 94 Oximetry 02/25/20 02/25/20 02/25/20 02:16 02:20 02:26 Temperature Pulse Rate 97 H 100 H 99 H Pulse Rate [ From Monitor] Pulse Rate [ None] Respiratory 16 18 20 Rate Blood Pressure 135/90 135/90 135/90 O2 Sat by Pulse 92 95 95 Oximetry 02/25/20 02/25/20 02/25/20 02:30 02:36 02:40 Temperature Pulse Rate 96 H 98 H 99 H Pulse Rate [ From Monitor] Pulse Rate [ None] Respiratory 16 17 18 Rate Blood Pressure 135/90 149/101 149/101 O2 Sat by Pulse 96 96 96 Oximetry 02/25/20 02/25/20 02/25/20 02:46 02:50 02:56 Temperature Pulse Rate 98 H 98 H 100 H Pulse Rate [ From Monitor] Pulse Rate [ None] Respiratory 16 18 17 Rate Blood Pressure 148/95 148/95 148/95 O2 Sat by Pulse 93 94 96 Oximetry 02/25/20 02/25/20 02/25/20 03:00 03:06 03:10 Temperature Pulse Rate 98 H 101 H 105 H Pulse Rate [ From Monitor] Pulse Rate [ None] Respiratory 17 18 17 Rate Blood Pressure 148/95 163/98 163/98 O2 Sat by Pulse 96 97 Oximetry 02/25/20 02/25/20 02/25/20 03:16 03:20 03:26 Temperature Pulse Rate 95 H 95 H 97 H Pulse Rate [ From Monitor] Pulse Rate [ None] Respiratory 19 17 19 Rate Blood Pressure 173/108 173/108 173/108 O2 Sat by Pulse 95 98 97 Oximetry 02/25/20 02/25/20 02/25/20 03:30 03:36 03:40 Temperature Pulse Rate 97 H 98 H 98 H Pulse Rate [ From Monitor] Pulse Rate [ 100 H None] Respiratory 17 18 17 Rate Blood Pressure 173/108 182/110 182/110 O2 Sat by Pulse 95 96 96 Oximetry 02/25/20 02/25/20 02/25/20 03:46 03:50 03:55 Temperature Pulse Rate 99 H 98 H Pulse Rate [ From Monitor] Pulse Rate [ None] Respiratory 16 19 17 Rate Blood Pressure 194/109 194/109 O2 Sat by Pulse 95 97 Oximetry 02/25/20 02/25/20 02/25/20 03:56 04:00 04:06 Temperature 98.6 F Pulse Rate 99 H 99 H 97 H Pulse Rate [ From Monitor] Pulse Rate [ None] Respiratory 16 22 16 Rate Blood Pressure 194/109 194/109 192/108 O2 Sat by Pulse 96 97 96 Oximetry 02/25/20 02/25/20 02/25/20 04:10 04:16 04:20 Temperature Pulse Rate 98 H 99 H 100 H Pulse Rate [ From Monitor] Pulse Rate [ None] Respiratory 19 16 18 Rate Blood Pressure 192/108 198/105 198/105 O2 Sat by Pulse 95 92 96 Oximetry 02/25/20 02/25/20 02/25/20 04:26 04:30 04:36 Temperature Pulse Rate 101 H 101 H 101 H Pulse Rate [ From Monitor] Pulse Rate [ None] Respiratory 19 17 19 Rate Blood Pressure 198/105 198/105 196/117 O2 Sat by Pulse 95 97 95 Oximetry 02/25/20 02/25/20 02/25/20 04:40 04:46 04:49 Temperature Pulse Rate 104 H 98 H 99 H Pulse Rate [ From Monitor] Pulse Rate [ None] Respiratory 21 16 18 Rate Blood Pressure 196/117 177/123 177/123 O2 Sat by Pulse 97 92 94 Oximetry 02/25/20 02/25/20 02/25/20 04:51 04:56 05:00 Temperature Pulse Rate 98 H 99 H Pulse Rate [ From Monitor] Pulse Rate [ None] Respiratory 17 16 16 Rate Blood Pressure 177/123 177/123 O2 Sat by Pulse 93 94 Oximetry 02/25/20 02/25/20 02/25/20 05:03 05:06 05:10 Temperature Pulse Rate 99 H 102 H 100 H Pulse Rate [ From Monitor] Pulse Rate [ None] Respiratory 16 17 Rate Blood Pressure 158/88 158/88 158/88 O2 Sat by Pulse 96 96 Oximetry 02/25/20 02/25/20 02/25/20 05:16 05:20 05:26 Temperature Pulse Rate 100 H 98 H 100 H Pulse Rate [ From Monitor] Pulse Rate [ None] Respiratory 16 16 17 Rate Blood Pressure 158/88 153/82 153/82 O2 Sat by Pulse 95 96 94 Oximetry 02/25/20 02/25/20 02/25/20 05:30 05:35 05:41 Temperature Pulse Rate 101 H 101 H 102 H Pulse Rate [ From Monitor] Pulse Rate [ None] Respiratory 18 17 18 Rate Blood Pressure 153/82 163/106 163/106 O2 Sat by Pulse 95 95 95 Oximetry 02/25/20 02/25/20 02/25/20 05:45 05:51 05:55 Temperature Pulse Rate 102 H 103 H 104 H Pulse Rate [ From Monitor] Pulse Rate [ None] Respiratory 19 17 18 Rate Blood Pressure 176/102 176/102 176/102 O2 Sat by Pulse 95 95 95 Oximetry 02/25/20 02/25/20 02/25/20 06:00 06:05 06:11 Temperature Pulse Rate 105 H 103 H 103 H Pulse Rate [ From Monitor] Pulse Rate [ None] Respiratory 21 17 17 Rate Blood Pressure 200/102 200/102 200/102 O2 Sat by Pulse 95 95 96 Oximetry 02/25/20 02/25/20 02/25/20 06:15 06:21 06:25 Temperature Pulse Rate 110 H 107 H 105 H Pulse Rate [ From Monitor] Pulse Rate [ None] Respiratory 19 16 21 Rate Blood Pressure 201/128 176/102 176/102 O2 Sat by Pulse 97 99 98 Oximetry 02/25/20 02/25/20 02/25/20 06:31 06:35 06:41 Temperature Pulse Rate 109 H 105 H 105 H Pulse Rate [ From Monitor] Pulse Rate [ None] Respiratory 18 22 20 Rate Blood Pressure 176/102 176/102 176/102 O2 Sat by Pulse 97 Oximetry 02/25/20 02/25/20 02/25/20 06:45 06:51 06:55 Temperature Pulse Rate 108 H 104 H 105 H Pulse Rate [ From Monitor] Pulse Rate [ None] Respiratory 24 19 18 Rate Blood Pressure 176/102 176/102 176/102 O2 Sat by Pulse 98 99 Oximetry 02/25/20 02/25/20 02/25/20 07:00 07:05 07:11 Temperature Pulse Rate 107 H 105 H 108 H Pulse Rate [ From Monitor] Pulse Rate [ None] Respiratory 18 18 18 Rate Blood Pressure 161/114 161/114 161/114 O2 Sat by Pulse 91 99 74 L Oximetry 02/25/20 02/25/20 02/25/20 07:15 07:21 07:25 Temperature Pulse Rate 112 H 108 H 107 H Pulse Rate [ From Monitor] Pulse Rate [ None] Respiratory 19 30 H 12 Rate Blood Pressure 211/134 211/134 211/134 O2 Sat by Pulse 96 96 Oximetry 02/25/20 02/25/20 02/25/20 07:30 07:35 07:41 Temperature Pulse Rate 106 H 106 H 105 H Pulse Rate [ From Monitor] Pulse Rate [ None] Respiratory 22 21 20 Rate Blood Pressure 173/100 173/100 173/100 O2 Sat by Pulse 96 95 93 Oximetry 02/25/20 02/25/20 02/25/20 07:45 07:51 07:55 Temperature Pulse Rate 106 H 106 H 106 H Pulse Rate [ From Monitor] Pulse Rate [ None] Respiratory 22 20 20 Rate Blood Pressure 168/97 168/97 168/97 O2 Sat by Pulse 93 93 93 Oximetry 02/25/20 02/25/20 02/25/20 08:00 08:05 08:11 Temperature 98.6 F Pulse Rate 107 H 105 H 106 H Pulse Rate [ 107 H From Monitor] Pulse Rate [ None] Respiratory 21 20 21 Rate Blood Pressure 163/102 163/102 163/102 O2 Sat by Pulse 94 93 95 Oximetry 02/25/20 02/25/20 02/25/20 08:15 08:21 08:25 Temperature Pulse Rate 107 H 105 H 106 H Pulse Rate [ From Monitor] Pulse Rate [ None] Respiratory 23 17 22 Rate Blood Pressure 164/99 164/99 164/99 O2 Sat by Pulse 94 94 95 Oximetry 02/25/20 02/25/20 02/25/20 08:30 08:35 08:41 Temperature Pulse Rate 104 H 105 H 103 H Pulse Rate [ From Monitor] Pulse Rate [ None] Respiratory 23 19 20 Rate Blood Pressure 168/96 168/96 168/96 O2 Sat by Pulse 95 94 93 Oximetry 02/25/20 02/25/20 02/25/20 08:45 08:51 08:55 Temperature Pulse Rate 104 H 106 H 104 H Pulse Rate [ From Monitor] Pulse Rate [ None] Respiratory 19 23 20 Rate Blood Pressure 180/101 180/101 168/96 O2 Sat by Pulse 93 92 93 Oximetry 02/25/20 02/25/20 02/25/20 09:00 09:05 09:11 Temperature Pulse Rate 106 H 106 H 105 H Pulse Rate [ From Monitor] Pulse Rate [ None] Respiratory 22 26 H 21 Rate Blood Pressure 175/99 175/99 175/99 O2 Sat by Pulse 92 93 93 Oximetry 02/25/20 02/25/20 02/25/20 09:15 09:21 09:25 Temperature Pulse Rate 106 H 106 H 106 H Pulse Rate [ From Monitor] Pulse Rate [ None] Respiratory 21 20 22 Rate Blood Pressure 170/99 170/99 175/99 O2 Sat by Pulse 93 92 93 Oximetry 02/25/20 02/25/20 02/25/20 09:30 09:35 09:41 Temperature Pulse Rate 107 H 107 H 108 H Pulse Rate [ From Monitor] Pulse Rate [ None] Respiratory 19 22 25 H Rate Blood Pressure 166/103 166/103 166/103 O2 Sat by Pulse 94 94 93 Oximetry 02/25/20 02/25/20 02/25/20 09:45 09:51 09:55 Temperature Pulse Rate 109 H 104 H 102 H Pulse Rate [ From Monitor] Pulse Rate [ None] Respiratory 17 22 22 Rate Blood Pressure 169/110 169/110 169/110 O2 Sat by Pulse 94 94 92 Oximetry 02/25/20 02/25/20 02/25/20 10:00 10:05 10:11 Temperature Pulse Rate 102 H 101 H 103 H Pulse Rate [ From Monitor] Pulse Rate [ None] Respiratory 18 18 20 Rate Blood Pressure 143/89 143/89 143/89 O2 Sat by Pulse 93 94 93 Oximetry 02/25/20 02/25/20 02/25/20 10:15 10:16 10:17 Temperature Pulse Rate 102 H 101 H 102 H Pulse Rate [ From Monitor] Pulse Rate [ None] Respiratory 18 Rate Blood Pressure 152/95 152/95 152/95 O2 Sat by Pulse 94 Oximetry 02/25/20 02/25/20 02/25/20 10:21 10:25 10:30 Temperature Pulse Rate 104 H 99 H 100 H Pulse Rate [ From Monitor] Pulse Rate [ None] Respiratory 22 18 19 Rate Blood Pressure 152/95 152/95 148/95 O2 Sat by Pulse 95 93 96 Oximetry Constitutional: appears uncomfortable, other (Obese, lying in bed) Eyes: non-icteric ENT: oropharynx moist Neck: supple, no lymphadenopathy, no JVD Effort: normal Ascultation: Bilateral: diminished breath sounds (at the bases) Cardiovascular: regular rate and rhythm, other (S1,S2) Gastrointestinal: normoactive bowel sounds, soft, non-tender, non-distended Integumentary: normal Extremities: no cyanosis, no edema, pink and warm, pulses normal Neurologic: normal mental status, non-focal exam, pupils equal and round, CN II- XII normal, motor strength normal and Psychiatric: mood appropriate, affect normal CBC and BMP: 02/26/20 04:39 02/26/20 04:39 ABG, PT/INR, D-dimer: PT/INR, D-dimer PT 13.7 Sec. (12.2-14.9) 02/25/20 03:49 INR 1.03 (0.87-1.13) 02/25/20 03:49 Abnormal lab findings: Abnormal Labs 02/24/20 02/24/20 02/24/20 02:53 02:53 Unknown WBC 12.7 H Hgb 10.0 L Hct MCV 70 L MCH 22 L RDW 17.9 H Plt Count 458 H Lymph % (Auto) 8.9 L Lymph # 1.1 L Chaves # Seg Neutrophils % 84.2 H Seg Neutrophils # 10.7 H Sodium Chloride Carbon Dioxide BUN 27 H Creatinine 1.7 H Glucose 118 H POC Glucose Albumin Lipase 232 H Urine WBC (Auto) 11.0 H 02/25/20 02/25/2002/24/20 00:03 03:49 03:49 WBC 29.1 H Hgb 9.4 L Hct 30.2 L MCV 71 L MCH 22 L RDW 18.3 H Plt Count 525 H Lymph % (Auto) 3.4 L Lymph # 1.0 L Chaves # 1.0 H Seg Neutrophils % Seg Neutrophils # 26.4 H Sodium Chloride Carbon Dioxide BUN Creatinine Glucose POC Glucose 126 H Albumin Lipase 1486 H Urine WBC (Auto) 02/25/20 02/25/20 03:49 05:55 WBC Hgb Hct MCV MCH RDW Plt Count Lymph % (Auto) Lymph # Chaves # Seg Neutrophils % Seg Neutrophils # Sodium 136 L Chloride 97.9 L Carbon Dioxide 21 L BUN 39 H Creatinine 3.0 H D Glucose 118 H POC Glucose 124 H Albumin 3.6 L Lipase Urine WBC (Auto) Chest x-ray: image reviewed Allied health notes reviewed: nursing
--- NOTE | 2020-02-25 11:37 | Consultation ---
History of Present Illness - Reason for Consult Consult date: 02/25/20 pancreatitis Requesting physician: BERNABE BOOGIE - History of Present Illness 39 years old female with history of hypertension, previous kidney stone, hyperlipidemia and obesity admitted on 02/24/2020 due to a week history of severe epigastric abdominal pain radiated to the right flank and back. Pain is 10 out of 10. Patient reports all nausea but denies any vomiting or diarrhea. Patient denies any urinary symptoms. Patient denies any previous episodes. She denies any alcohol abuse. On arrival, temperature 98.9, HR 100, BP 162/168, RR 18, O2 sat 99%. Initial WBC 12,700 which went up to 29,000. Creatinine 1.7, now 3. LFTs are normal. Lipase 232, now 1486. Urinalysis with 11 WBCs. Negative leukocyte esterase. Urine culture grew 10-100,[address] of the abdomen shows moderate acute pancreatitis with a focal 3 mm calcification in the pancreatic duct ampullary region. Review of Systems: positive in bold print General: fever, chills, malaise Cutaneous: rash, pruritus Head: headaches or injury Eyes: changes in vision, eye pain, double vision Ears: ear pain, ear discharge, ringing or hearing loss Nose: nose bleeding, stuffiness Mouth & throat: bleeding gums, horseness, no dental problems, or swollen glands Neck: no pain, node enlargement/lumps, tyroid enlargement or tenderness Respiratory: SOB, cough, PUCKETT, wheezing, sputum, hemoptysis, pleuritic chest pain Cardiovascular: chest pain, leg edema, cyanosis, PUCKETT, orthopnea Musculoskeletal: edema, deformities, pain Gastrointestinal: Abdominal pain, nausea, vomiting, hematemesis, diarrhea, constipation, melena, bright red blood in stools, fecal incontinence, jaundice Genitourinary/Reproductive: frequent urination, dysuria, hematuria, incontinence Neurogical: seizures, headaches, weakness, paresthesias, loss of speech or vision; memory loss, vertigo, tremors, numbness Psychiatric: stable mood; excessive anxiety, sadness or moodiness Past History Past Medical History: CAD, hypertension, hyperlipidemia, renal failure (Chronic) Past Surgical History: No surgical history Social history: smoking (Former smoker), alcohol abuse (Occasional alcohol) Family history: no significant family history Medications and Allergies Allergies Allergy/AdvReac Type Severity Reaction Status Date / Time No Known Allergies Allergy Unverified 09/05/19 10:15 Home Medications Medication Instructions Recorded Confirmed Last Taken Type Amlodipine Besylate [Norvasc] 10 mg PO DAILY 09/05/19 02/24/20 09/04/19 History Furosemide [Lasix] 20 mg PO QDAY #30 tablet 09/05/19 02/24/20 Unknown Rx Lisinopril [Zestril] 5 mg PO DAILY #30 tablet 09/05/19 02/24/20 Unknown Rx Metoprolol [Lopressor TAB] 25 mg PO BID #60 tablet 09/05/19 02/24/20 Unknown Rx Active Meds: Active Medications Heparin Sodium (Porcine) (Heparin) 5,000 unit SUB-Q Q8HR [facility] Last Admin: 02/25/20 05:04 Dose: 5,000 unit Documented by: Hydromorphone HCl (Dilaudid) 1 mg IV Q3HR PRN PRN Reason: Pain , Severe (7-10) Sodium Chloride (Nacl 0.9% 1000 Ml) 1,000 mls @ 125 mls/hr IV DIRECT [facility] Last Admin: 02/25/20 02:24 Dose: 125 mls/hr Documented by: Nicardipine HCl 50 mg/ Sodium (Chloride) 250 mls @ 25 mls/hr IV TITR INDU; Pro tocol Last Titration: 02/25/20 11:35 Dose: Infused Documented by: Ondansetron HCl (Zofran) 4 mg IV Q8H PRN PRN Reason: Nausea And Vomiting Last Admin: 02/25/20 08:19 Dose: 4 mg Documented by: Pantoprazole Sodium (Protonix) 40 mg IV QDAY [facility] Last Admin: 02/25/20 09:50 Dose: 40 mg Documented by: Sodium Chloride (Sodium Chloride Flush Syringe 10 Ml) 10 ml IV BID [facility] Last Admin: 02/25/20 09:53 Dose: 10 ml Documented by: Sodium Chloride (Sodium Chloride Flush Syringe 10 Ml) 10 ml IV PRN PRN PRN Reason: LINE FLUSH Physical Examination - Physical Exam Narrative exam: General appearance: Somnolent in no acute distress Eyes: anicteric sclerae, moist conjunctivae; no lid-lag; PERRLA HENT: Atraumatic; oropharynx clear with moist mucous membranes and no oral thrush; normal hard and soft palate. Lungs: Clear to auscultation bilaterally CV: RRR no murmur Abdomen: Tense, diffuse tenderness decreased bowel sounds Extremities: no edema, no cyanosis Skin: No rash. Psych: Somnolent Neuro: Somnolent but answers questions and oriented x 3. Moving all extermities - Constitutional Vitals: Vital Signs Temp Pulse Resp BP Pulse Ox 98.6 F 100 H 19 148/95 96 02/25/20 08:00 02/25/20 10:30 02/25/20 10:30 02/25/20 10:30 02/25/20 10:30 Temperature -Last 24 Hours Temperature 98.6 F Temperature 98.6 F Temperature 98.2 F Temperature 97.9 F Temperature 98.4 F Temperature 98.3 F Results - Labs CBC & Chem 7: 02/25/20 03:49 02/25/20 03:49 Labs: Abnormal lab results 02/25/20 02/25/20 02/25/20 Range/Units 00:03 03:49 03:49 WBC 29.1 H (4.5-11.0) K/mm3 Hgb 9.4 L (10.1-14.3) gm/dl Hct 30.2 L (30.3-42.9) % MCV 71 L (79-97) fl MCH 22 L (28-32) pg RDW 18.3 H (13.2-15.2) % Plt Count 525 H (140-440) K/mm3 Lymph % (Auto) 3.4 L (13.4-35.0) % Lymph # 1.0 L (1.2-5.4) K/mm3 Carlton # 1.0 H (0.0-0.8) K/mm3 Seg Neutrophils # 26.4 H (1.8-7.7) K/mm3 Sodium (137-145) mmol/L Chloride (98-107) mmol/L Carbon Dioxide (22-30) mmol/L BUN (7-17) mg/dL Creatinine (0.6-1.2) mg/dL Glucose (65-100) mg/dL POC Glucose 126 H (70-105) Albumin (3.9-5) g/dL Lipase 1486 H (13-60) units/L 02/25/20 02/25/20 Range/Units 03:49 05:55 WBC (4.5-11.0) K/mm3 Hgb (10.1-14.3) gm/dl Hct (30.3-42.9) % MCV (79-97) fl MCH (28-32) pg RDW (13.2-15.2) % Plt Count (140-440) K/mm3 Lymph % (Auto) (13.4-35.0) % Lymph # (1.2-5.4) K/mm3 Carlton # (0.0-0.8) K/mm3 Seg Neutrophils # (1.8-7.7) K/mm3 Sodium 136 L (137-145) mmol/L Chloride 97.9 L (98-107) mmol/L Carbon Dioxide 21 L (22-30) mmol/L BUN 39 H (7-17) mg/dL Creatinine 3.0 H D (0.6-1.2) mg/dL Glucose 118 H (65-100) mg/dL POC Glucose 124 H (70-105) Albumin 3.6 L (3.9-5) g/dL Lipase (13-60) units/L Assessment and Plan Cultures: Urine culture grew 10-100,000 usual skin xavier. Assessment: 39 years old female with history of hypertension, previous kidney stone, hyperlipidemia and obesity admitted on 02/24/2020 due to a week history of severe epigastric abdominal pain radiated to the right flank and back: #Acute sepsis: Present on admission with tachycardia, leukocytosis, secondary to pancreatitis. Noted increasing leukocytosis. Urinalysis with minimal pyuria however negative leukocyte esterase. Doubt UTI. #Acute severe pancreatitis: Noncontrasted CT shows no evidence of necrosis or pseudocyst or abscess formation. #JUANIS: Likely secondary to pancreatitis Recommendations: -GI medicine evaluation -Bowel rest, may need TPN -Pain management -No prophylactic antibiotics recommended, there is no evidence of necrotic pancreatitis -Consider repeating CT abdomen or CT MRI if no improvement -Monitor creatinine Will follow. Nallely Ty MD Infectious Diseases [facility] [place] ([facility] M [phone] O [phone]
--- NOTE | 2020-02-25 13:48 | Cat Scan Report ---
CT ABDOMEN AND PELVIS WITHOUT CONTRAST INDICATION / CLINICAL INFORMATION: Abdominal pain. TECHNIQUE: Axial CT images were obtained through the abdomen and pelvis without IV contrast. All CT scans at th is location are performed using CT dose reduction for ALARA by means of automated exposure control. COMPARISON: 02/24/2020. FINDINGS: LOWER CHEST: Mild hypoventilatory changes noted in the bilateral lung bases. Heart size is stable sin ce prior exam. LIVER: No significant abnormality. GALLBLADDER: Cholecystectomy clips are stable. BILE DUCTS: No significant abnormality. PANCREAS: Interval worsening of inflammatory changes to the pancreatic parenchyma extending now to th e pancreatic body with significant interval worsening of peripancreatic fat stranding and surrounding disorganized fluid. The previously noted calcification near the pancreatic duct ampulla is stable. SPLEEN: No significant abnormality. ADRENALS: No significant abnormality. RIGHT KIDNEY / URETER: Interval development of right sided perinephric fat stranding. Hypoattenuating lesion of the right inferior renal pole is unchanged from prior LEFT KIDNEY / URETER: No significant abnormality. STOMACH / SMALL BOWEL: Reactive thickening of the duodenum is minimally worsened since prior exam COLON: No significant abnormality. APPENDIX: No significant abnormality. PERITONEUM: No free fluid. No free air. No fluid collection. LYMPH NODES: No significant adenopathy. AORTA / ARTERIES: No significant abnormality. IVC / VEINS: No significant abnormality. URINARY BLADDER: No significant abnormality. REPRODUCTIVE ORGANS: No significant abnormality. ADDITIONAL FINDINGS: None. SKELETAL SYSTEM: No significant abnormality. IMPRESSION: 1. Findings consistent with worsening acute pancreatitis with increased peripancreatic fat stranding and disorganized fluid. 2. Interval development of right-sided perinephric fat stranding may be secondary to local reactive c hanges. 3. Reactive inflammatory changes of the small bowel are minimally worsened since prior exam. Signer Name: King De Leon MD Signed: 02/25/2020 1:43 PM Workstation Name: [id number]
--- NOTE | 2020-02-25 16:30 | Gastroenterology Progress Note ---
Assessment and Plan - Patient Problems (1) Acute pancreatitis Current Visit: Yes Status: Acute Plan to address problem: - Possible gallstone, but LFTs WNL, and the CBD is normal in size; no indication for ERCP at present. - Will recheck labs tomorrow, and consider MRCP if patient can tolerate tomorrow; with normal LFTs I doubt small calcification seen on CT in region of pancreas head is a stone in the CBD or PD (no upstream dilation). - If ERCP needed, will need improved BP control. Continue nifedipine gtt. - Patient should avoid NSAIDs and EtOH; I started protonix but doubt penetrating PUD in absence of free air. Subjective Date of service: 02/25/20 Principal diagnosis: Pancreatitis Interval history: The patient's abdominal pain increased overnight. She has no vomiting, but nausea is present. A CT showed worsening inflammatory changes. She is passing flatus. Objective - Constitutional Vitals: Temp Pulse Resp BP Pulse Ox 97.5 F L 103 H 21 148/105 93 02/25/20 16:00 02/25/20 16:00 02/25/20 16:00 02/25/20 16:00 02/25/20 16:00 General appearance: no acute distress - Respiratory Respiratory effort: normal Respiratory: bilateral: CTA - Cardiovascular Rhythm: regular Heart Sounds: Present: S1 & S2 - Gastrointestinal General gastrointestinal: Present: soft, non-tender, non-distended - Labs CBC & Chem 7: 02/25/20 03:49 02/25/20 03:49 Labs: Laboratory Results - last 24 hr 02/25/20 02/25/20 02/25/20 00:03 03:49 03:49 WBC 29.1 H RBC 4.28 Hgb 9.4 L Hct 30.2 L MCV 71 L MCH 22 L MCHC 31 RDW 18.3 H Plt Count 525 H Lymph % (Auto) 3.4 L [place] % (Auto) 5.5 Eos % (Auto) 0.1 Baso % (Auto) 0.2 Lymph # 1.0 L [place] # 1.0 H Eos # 0.0 Baso # 0.1 Seg Neutrophils % Boat Loader Helper Seg Neutrophils # 26.4 H PT 13.7 INR 1.03 Sodium Potassium Chloride Carbon Dioxide Anion Gap BUN Creatinine Estimated GFR BUN/Creatinine Ratio Glucose POC Glucose 126 H Calcium Total Bilirubin AST ALT Alkaline Phosphatase Total Protein Albumin Albumin/Globulin Ratio Lipase 02/25/20 02/25/20 02/25/20 03:49 03:49 05:55 WBC RBC Hgb Hct MCV MCH MCHC RDW Plt Count Lymph % (Auto) [place] % (Auto) Eos % (Auto) Baso % (Auto) Lymph # [place] # Eos # Baso # Seg Neutrophils % Seg Neutrophils # PT INR Sodium 136 L Potassium 4.4 Chloride 97.9 L Carbon Dioxide 21 L Anion Gap 22 BUN 39 H Creatinine 3.0 H D Estimated GFR 21 BUN/Creatinine Ratio 13 Glucose 118 H POC Glucose 124 H Calcium 9.3 Total Bilirubin 0.80 AST 19 ALT 12 Alkaline Phosphatase 111 Total Protein 7.9 Albumin 3.6 L Albumin/Globulin Ratio 0.8 Lipase 1486 H
--- NOTE | 2020-02-25 18:10 | Consultation ---
History of Present Illness - Reason for Consult Consult date: 02/25/20 acute renal failure, hyperkalemia - History of Present Illness This is a 39-year-old -[place] woman with known history of hypertension, history of kidney stones, hyperlipidemia, and obesity who presented with abdomi nal pain, with concerns for pancreatitis. Feeling better now, no pain, no nausea or vomiting currently. No edema, no chest pain, notes normal urination. Noted to have extremely high BPs on arrival, no prior knowledge of kidney disease. Does admit to not having medications recently. She has known history of kidney stones in the past. Past History Past Medical History: CAD, hypertension, hyperlipidemia, renal failure (Chronic) Past Surgical History: No surgical history Social history: smoking (Former smoker), alcohol abuse (Occasional alcohol) Family history: no significant family history Medications and Allergies Allergies Allergy/AdvReac Type Severity Reaction Status Date / Time No Known Allergies Allergy Unverified 09/05/19 10:15 Home Medications Medication Instructions Recorded Confirmed Last Taken Type Amlodipine Besylate [Norvasc] 10 mg PO DAILY 09/05/19 02/24/20 09/04/19 History Furosemide [Lasix] 20 mg PO QDAY #30 tablet 09/05/19 02/24/20 Unknown Rx Lisinopril [Zestril] 5 mg PO DAILY #30 tablet 09/05/19 02/24/20 Unknown Rx Metoprolol [Lopressor TAB] 25 mg PO BID #60 tablet 09/05/19 02/24/20 Unknown Rx Active Meds: Active Medications Heparin Sodium (Porcine) (Heparin) 5,000 unit SUB-Q Q8HR INDU Last Admin: 02/25/20 13:44 Dose: 5,000 unit Documented by: Hydromorphone HCl (Dilaudid) 1 mg IV Q3HR PRN PRN Reason: Pain , Severe (7-10) Last Admin: 02/25/20 13:44 Dose: 1 mg Documented by: Sodium Chloride (Nacl 0.9% 1000 Ml) 1,000 mls @ 125 mls/hr IV DIRECT INDU Last Admin: 02/25/20 02:24 Dose: 125 mls/hr Documented by: Nicardipine HCl 50 mg/ Sodium (Chloride) 250 mls @ 25 mls/hr IV TITR INDU; Protocol Last Titration: 02/25/20 15:45 Dose: 5 mg/hr, 25 mls/hr Documented by: Ondansetron HCl (Zofran) 4 mg IV Q8H PRN PRN Reason: Nausea And Vomiting Last Admin: 02/25/20 08:19 Dose: 4 mg Documented by: Pantoprazole Sodium (Protonix) 40 mg IV QDAY [facility] Last Admin: 02/25/20 09:50 Dose: 40 mg Documented by: Sodium Chloride (Sodium Chloride Flush Syringe 10 Ml) 10 ml IV BID [facility] Last Admin: 02/25/20 09:53 Dose: 10 ml Documented by: Sodium Chloride (Sodium Chloride Flush Syringe 10 Ml) 10 ml IV PRN PRN PRN Reason: LINE FLUSH Review of Systems All systems: negative (as per HPI) Exam - Vital Signs Vital signs: Vital Signs Temp Pulse BP 98.9 F 100 H 262/168 02/24/20 02:14 02/24/20 02:14 02/24/20 02:14 - Physical Exam Narrative exam: General appearance: well appearing, in no acute distress Eyes: anicteric sclerae HENT: Atraumatic; oropharynx Lungs: Clear to auscultation bilaterally CV: RRR, no murmur Abdomen: Tenseds Extremities: no edema Skin: No rash. Psych: awake now Neuro: alert and oriented x 3. Moving all extermities Results - Lab Results 02/25/20 03:49 02/25/20 03:49 Most recent lab results Calcium 9.3 mg/dL (8.4-10.2) 02/25/20 03:49 Assessment and Plan # Acute Kidney Injury: suspect JUANIS in setting of hypertensive urgency and pre- renal injury from pancreatitis. Additional JUANIS risk factors include use of NSAID (Toradol) and PPI. Creatinine 1.5 in September 2019, may have underlying CKD. Creatinine has worsened from 1.7->3.0 since admission. - avoid NSAIDs as able - consider alternative to PPI if able - IVF as tolerated - strict Is/Os - ordered serologies, UP/C, PTH; reviewed urinalysis which does show hematuria and proteinuria - BP control as below # Hypertensive Emergency: agree with Nyasia gtt, can titrate back to home amlodipine, metoprolol once able to tolerate po regimen. On HANNA-I at home, hold for now. Did discuss importance of medication and diet compliance # Pancreatitis: appreciate GI, pain management per primary. Continue aggressive IVF as tolerated # Thrombocytosis # Leukocytosis
[2020-02-25 23:31] LABS: Protein/Creatinine Ratio,Urine 0.93
[2020-02-26] MEDS: HYDROmorphone 1 MG/1 ML INJ IV PRN ×4 (01:56→10:25)
[2020-02-26] MEDS: SODIUM CHLORIDE 0.9% 1000 ML 1,000 ML IV SCH ×3 (04:07→20:05)
[2020-02-26] MEDS: niCARdipine 50 MG in SODIUM CHLORIDE 0.9% 250ML 230 ML IV SCH ×3 (04:29→18:44)
[2020-02-26] MEDS: HEPARIN 5,000 UNIT/1 ML VIAL SUB-Q SCH ×3 (05:40→21:55)
[2020-02-26 05:47] LABS: Calcium 8.1 mg/dL (8.4-10.2)
[2020-02-26 05:49] LABS: Hematocrit 29.8 % (30.3-42.9); Hemoglobin 9.1 gm/dl (10.1-14.3); Mean Corpuscular HGB Conc 30 % (30-34); Mean Corpuscular Volume 71 fl (79-97); Platelet Count 530 K/mm3 (140-440); Red Blood Count 4.19 M/mm3 (3.65-5.03); Red Cell Distribution Width 18.2 % (13.2-15.2)
--- NOTE | 2020-02-26 09:11 | Progress Note ---
Assessment and Plan Hypertensive urgency Morbid obesity Acute pancreatitis, abdominal pain Medical non compliance With worsening lipase, leukocytosis and ongoing abdominal pain, will continue strict NPO. Continue Nicardipine for her blood pressure management Dilaudid MATERIAL FLOW ANALYST for pain management Place PICC for TPN, Avoid nephrotoxins, adjust all medications for CrCL and GFR Get transthoracic echocardigram, has severe cardiomegally on CXR Supplemental oxygen as needed to keep O2 sats>90% Evaluation for sleep apnea as an outpatient Continue ICU care for now -VTE prophylaxis -Analgesia -Stress ulcer prophylaxis in view of acute pancreatitis-Pantoprazole -Life style modification, and counselling on the need for medical compliance - IV hydration Subjective Date of service: 02/26/20 Principal diagnosis: Pancreatitis Interval history: Follow up for acute pancreatitis; hypertensive urgency;morbid obesity Seen and examined. Vitals, labs, medications, chart and imaging reviewed. On going abdominal pain; no fevers. On Cardene infusion Respiratory and nursing staff consulted. Objective Vital Signs - 12hr 02/25/20 02/25/20 02/25/20 21:15 21:21 21:25 Temperature Pulse Rate 109 H 110 H 111 H Pulse Rate [ From Monitor] Respiratory 25 H 24 24 Rate Blood Pressure 191/93 191/93 191/93 O2 Sat by Pulse 95 91 92 Oximetry 02/25/20 02/25/20 02/25/20 21:30 21:35 21:41 Temperature Pulse Rate 110 H 111 H 111 H Pulse Rate [ From Monitor] Respiratory 24 20 26 H Rate Blood Pressure 169/91 169/91 169/91 O2 Sat by Pulse 92 92 92 Oximetry 02/25/20 02/25/20 02/25/20 21:45 21:51 21:55 Temperature Pulse Rate 111 H 112 H 111 H Pulse Rate [ From Monitor] Respiratory 18 21 23 Rate Blood Pressure 172/92 172/92 172/92 O2 Sat by Pulse 91 92 93 Oximetry 02/25/20 02/25/20 02/25/20 22:00 22:05 22:11 Temperature Pulse Rate 111 H 112 H 113 H Pulse Rate [ From Monitor] Respiratory 23 22 24 Rate Blood Pressure 186/99 186/99 186/99 O2 Sat by Pulse 91 92 93 Oximetry 02/25/20 02/25/20 02/25/20 22:15 22:21 22:25 Temperature Pulse Rate 116 H 114 H 114 H Pulse Rate [ From Monitor] Respiratory 27 H 24 25 H Rate Blood Pressure 183/102 183/102 183/102 O2 Sat by Pulse 93 93 93 Oximetry 02/25/20 02/25/20 02/25/20 22:30 22:35 22:41 Temperature Pulse Rate 115 H 115 H 114 H Pulse Rate [ From Monitor] Respiratory 25 H 22 24 Rate Blood Pressure 170/90 170/90 170/90 O2 Sat by Pulse 91 93 93 Oximetry 02/25/20 02/25/20 02/25/20 22:45 22:51 22:55 Temperature Pulse Rate 122 H 118 H 118 H Pulse Rate [ From Monitor] Respiratory 31 H 17 27 H Rate Blood Pressure 170/90 170/90 170/90 O2 Sat by Pulse Oximetry 02/25/20 02/25/20 02/25/20 23:00 23:05 23:11 Temperature Pulse Rate 114 H 113 H 115 H Pulse Rate [ From Monitor] Respiratory 24 27 H 27 H Rate Blood Pressure 191/95 191/95 191/95 O2 Sat by Pulse 92 93 93 Oximetry 02/25/20 02/25/20 02/25/20 23:15 23:21 23:25 Temperature Pulse Rate 115 H 114 H 116 H Pulse Rate [ From Monitor] Respiratory 34 H 25 H 22 Rate Blood Pressure 181/98 181/98 181/98 O2 Sat by Pulse 93 93 93 Oximetry 02/25/20 02/25/20 02/25/20 23:30 23:35 23:41 Temperature Pulse Rate 115 H 113 H 112 H Pulse Rate [ From Monitor] Respiratory 26 H 29 H 23 Rate Blood Pressure 175/96 175/96 175/96 O2 Sat by Pulse 91 93 94 Oximetry 02/25/20 02/25/20 02/25/20 23:45 23:51 23:55 Temperature Pulse Rate 112 H 113 H 113 H Pulse Rate [ From Monitor] Respiratory 24 28 H 25 H Rate Blood Pressure 172/98 172/98 172/98 O2 Sat by Pulse 92 91 93 Oximetry 02/26/20 02/26/20 02/26/20 00:00 00:05 00:11 Temperature 98.7 F Pulse Rate 115 H 113 H 114 H Pulse Rate [ 113 H From Monitor] Respiratory 18 24 25 H Rate Blood Pressure 182/98 182/98 182/98 O2 Sat by Pulse 93 93 93 Oximetry 02/26/20 02/26/20 02/26/20 00:15 00:21 00:23 Temperature 98.7 F Pulse Rate 115 H 115 H Pulse Rate [ From Monitor] Respiratory 29 H 23 Rate Blood Pressure 183/104 182/98 O2 Sat by Pulse 92 93 Oximetry 02/26/20 02/26/20 02/26/20 00:25 00:30 00:35 Temperature Pulse Rate 115 H 114 H 116 H Pulse Rate [ From Monitor] Respiratory 24 28 H 25 H Rate Blood Pressure 182/98 191/108 191/108 O2 Sat by Pulse 92 93 94 Oximetry 02/26/20 02/26/20 02/26/20 00:41 00:45 00:51 Temperature Pulse Rate 114 H 115 H 114 H Pulse Rate [ From Monitor] Respiratory 26 H 32 H 25 H Rate Blood Pressure 191/108 166/89 166/89 O2 Sat by Pulse 93 91 93 Oximetry 02/26/20 02/26/20 02/26/20 00:55 01:00 01:05 Temperature Pulse Rate 116 H 116 H 117 H Pulse Rate [ From Monitor] Respiratory 26 H 31 H 28 H Rate Blood Pressure 166/89 152/98 152/98 O2 Sat by Pulse 94 91 93 Oximetry 02/26/20 02/26/20 02/26/20 01:11 01:15 01:21 Temperature Pulse Rate 118 H 116 H 116 H Pulse Rate [ From Monitor] Respiratory 25 H 31 H 29 H Rate Blood Pressure 152/98 152/103 152/98 O2 Sat by Pulse 94 90 93 Oximetry 02/26/20 02/26/20 02/26/20 01:25 01:30 01:35 Temperature Pulse Rate 116 H 116 H 117 H Pulse Rate [ From Monitor] Respiratory 29 H 29 H 26 H Rate Blood Pressure 152/98 165/89 165/89 O2 Sat by Pulse 93 94 93 Oximetry 02/26/20 02/26/20 02/26/20 01:41 01:45 01:51 Temperature Pulse Rate 119 H 119 H 120 H Pulse Rate [ From Monitor] Respiratory 18 26 H 33 H Rate Blood Pressure 165/89 165/89 165/89 O2 Sat by Pulse Oximetry 02/26/20 02/26/20 02/26/20 01:55 02:00 02:05 Temperature Pulse Rate 114 H 111 H 112 H Pulse Rate [ From Monitor] Respiratory 26 H 24 25 H Rate Blood Pressure 159/93 170/86 170/86 O2 Sat by Pulse 97 90 90 Oximetry 02/26/20 02/26/20 02/26/20 02:11 02:15 02:21 Temperature Pulse Rate 112 H 112 H 113 H Pulse Rate [ From Monitor] Respiratory 21 24 26 H Rate Blood Pressure 170/86 160/84 170/86 O2 Sat by Pulse 91 89 90 Oximetry 02/26/20 02/26/20 02/26/20 02:25 02:30 02:35 Temperature Pulse Rate 112 H 112 H 113 H Pulse Rate [ From Monitor] Respiratory 22 22 26 H Rate Blood Pressure 170/86 141/90 141/90 O2 Sat by Pulse 92 91 89 Oximetry 02/26/20 02/26/20 02/26/20 02:41 02:45 02:51 Temperature Pulse Rate 115 H 113 H 112 H Pulse Rate [ From Monitor] Respiratory 25 H 22 22 Rate Blood Pressure 141/90 140/89 141/90 O2 Sat by Pulse 92 90 92 Oximetry 02/26/20 02/26/20 02/26/20 02:55 03:00 03:05 Temperature Pulse Rate 113 H 115 H 114 H Pulse Rate [ From Monitor] Respiratory 25 H 27 H 21 Rate Blood Pressure 141/90 165/97 165/97 O2 Sat by Pulse 92 91 92 Oximetry 02/26/20 02/26/20 02/26/20 03:11 03:15 03:21 Temperature Pulse Rate 115 H 115 H 116 H Pulse Rate [ From Monitor] Respiratory 26 H 26 H 26 H Rate Blood Pressure 165/97 170/92 170/92 O2 Sat by Pulse 93 93 93 Oximetry 02/26/20 02/26/20 02/26/20 03:25 03:30 03:34 Temperature 99.4 F Pulse Rate 114 H 114 H Pulse Rate [ From Monitor] Respiratory 26 H 26 H Rate Blood Pressure 165/97 151/89 O2 Sat by Pulse 93 91 Oximetry 02/26/20 02/26/20 02/26/20 03:35 03:41 03:45 Temperature Pulse Rate 114 H 115 H 115 H Pulse Rate [ From Monitor] Respiratory 25 H 24 28 H Rate Blood Pressure 151/89 151/89 170/98 O2 Sat by Pulse 93 92 90 Oximetry 02/26/20 02/26/20 02/26/20 03:51 03:55 04:00 Temperature Pulse Rate 115 H 119 H 121 H Pulse Rate [ 121 H From Monitor] Respiratory 26 H 22 29 H Rate Blood Pressure 170/98 170/98 O2 Sat by Pulse 93 92 Oximetry 02/26/20 02/26/20 02/26/20 04:01 04:05 04:10 Temperature Pulse Rate 120 H 119 H 118 H Pulse Rate [ From Monitor] Respiratory 20 28 H 29 H Rate Blood Pressure 170/98 170/98 158/92 O2 Sat by Pulse 96 Oximetry 02/26/20 02/26/20 02/26/20 04:15 04:21 04:25 Temperature Pulse Rate 118 H 116 H 116 H Pulse Rate [ From Monitor] Respiratory 31 H 27 H 29 H Rate Blood Pressure 160/92 160/92 158/92 O2 Sat by Pulse 92 91 92 Oximetry 02/26/20 02/26/20 02/26/20 04:30 04:35 04:41 Temperature Pulse Rate 114 H 113 H 114 H Pulse Rate [ From Monitor] Respiratory 27 H 28 H 27 H Rate Blood Pressure 164/86 164/86 164/86 O2 Sat by Pulse 92 90 92 Oximetry 02/26/20 02/26/20 02/26/20 04:45 04:51 04:55 Temperature Pulse Rate 115 H 114 H 114 H Pulse Rate [ From Monitor] Respiratory 28 H 26 H 26 H Rate Blood Pressure 164/86 164/86 164/86 O2 Sat by Pulse 91 90 91 Oximetry 02/26/20 02/26/20 02/26/20 05:00 05:05 05:11 Temperature Pulse Rate 114 H 114 H 116 H Pulse Rate [ From Monitor] Respiratory 27 H 27 H 26 H Rate Blood Pressure 142/88 142/88 142/88 O2 Sat by Pulse 91 91 91 Oximetry 02/26/20 02/26/20 02/26/20 05:15 05:21 05:25 Temperature Pulse Rate 115 H 115 H 114 H Pulse Rate [ From Monitor] Respiratory 27 H 27 H 25 H Rate Blood Pressure 166/89 166/89 142/88 O2 Sat by Pulse 91 92 92 Oximetry 02/26/20 02/26/20 02/26/20 05:30 05:35 05:41 Temperature Pulse Rate 114 H 115 H 116 H Pulse Rate [ From Monitor] Respiratory 25 H 26 H 28 H Rate Blood Pressure 149/84 149/84 149/84 O2 Sat by Pulse 91 92 93 Oximetry 02/26/20 02/26/20 02/26/20 05:45 05:51 05:55 Temperature Pulse Rate 115 H 116 H 118 H Pulse Rate [ From Monitor] Respiratory 25 H 25 H 22 Rate Blood Pressure 170/83 170/83 170/83 O2 Sat by Pulse 93 92 91 Oximetry 02/26/20 02/26/20 02/26/20 06:00 06:05 06:11 Temperature Pulse Rate 119 H 116 H 115 H Pulse Rate [ From Monitor] Respiratory 27 H 28 H 27 H Rate Blood Pressure 157/100 157/100 157/100 O2 Sat by Pulse 94 93 93 Oximetry 02/26/20 02/26/20 02/26/20 06:15 06:21 06:25 Temperature Pulse Rate 118 H 118 H 122 H Pulse Rate [ From Monitor] Respiratory 29 H 27 H 27 H Rate Blood Pressure 179/106 179/106 179/106 O2 Sat by Pulse 92 94 Oximetry 02/26/20 02/26/20 02/26/20 06:30 06:35 06:41 Temperature Pulse Rate 120 H 117 H 116 H Pulse Rate [ From Monitor] Respiratory 27 H 27 H 28 H Rate Blood Pressure 160/87 160/87 160/87 O2 Sat by Pulse 95 95 93 Oximetry 02/26/20 02/26/20 02/26/20 06:45 06:51 06:55 Temperature Pulse Rate 116 H 116 H 118 H Pulse Rate [ From Monitor] Respiratory 29 H 26 H 26 H Rate Blood Pressure 156/84 156/84 156/84 O2 Sat by Pulse 92 93 92 Oximetry 02/26/20 02/26/20 02/26/20 07:00 07:05 07:11 Temperature Pulse Rate 121 H 120 H 119 H Pulse Rate [ From Monitor] Respiratory 25 H 27 H 34 H Rate Blood Pressure 174/91 174/91 174/91 O2 Sat by Pulse 94 91 94 Oximetry 02/26/20 02/26/20 02/26/20 07:15 07:21 07:25 Temperature Pulse Rate 121 H 119 H 118 H Pulse Rate [ From Monitor] Respiratory 33 H 28 H 29 H Rate Blood Pressure 168/92 168/92 168/92 O2 Sat by Pulse 90 95 93 Oximetry 02/26/20 02/26/20 02/26/20 07:30 07:35 07:41 Temperature Pulse Rate 117 H 116 H 115 H Pulse Rate [ From Monitor] Respiratory 27 H 28 H 28 H Rate Blood Pressure 142/91 142/91 142/91 O2 Sat by Pulse 93 91 90 Oximetry 02/26/20 02/26/20 02/26/20 07:43 07:45 07:51 Temperature Pulse Rate 116 H 116 H Pulse Rate [ 115 H From Monitor] Respiratory 25 H 29 H 29 H Rate Blood Pressure 160/88 160/88 O2 Sat by Pulse 91 89 91 Oximetry 02/26/20 02/26/20 07:55 08:00 Temperature Pulse Rate 116 H 117 H Pulse Rate [ From Monitor] Respiratory 30 H 27 H Rate Blood Pressure 160/88 149/92 O2 Sat by Pulse 91 91 Oximetry Constitutional: appears uncomfortable, other (Obese, lying in bed) Eyes: non-icteric ENT: oropharynx moist Neck: supple, no lymphadenopathy, no JVD Effort: normal Ascultation: Bilateral: diminished breath sounds (at the bases) Cardiovascular: regular rate and rhythm, other (S1,S2) Gastrointestinal: normoactive bowel sounds, soft, non-tender, non-distended Integumentary: normal Extremities: no cyanosis, no edema, pink and warm, pulses normal Neurologic: normal mental status, non-focal exam, pupils equal and round, CN II-XII normal, motor strength normal and Psychiatric: mood appropriate, affect normal CBC and BMP: 03/02/20 05:36 03/02/20 05:36 ABG, PT/INR, D-dimer: PT/INR, D-dimer PT 13.7 Sec. (12.2-14.9) 02/25/20 03:49 INR 1.03 (0.87-1.13) 02/25/20 03:49 Abnormal lab findings: Abnormal Labs 02/24/20 02/24/20 02/24/20 02:53 02:53 Unknown WBC 12.7 H Hgb 10.0 L Hct MCV 70 L MCH 22 L RDW 17.9 H Plt Count 458 H Lymph % (Auto) 8.9 L Lymph # 1.1 L [place] # Seg Neutrophils % 84.2 H Seg Neutrophils # 10.7 H Sodium Chloride Carbon Dioxide BUN 27 H Creatinine 1.7 H Glucose 118 H POC Glucose Calcium Albumin Lipase 232 H Urine WBC (Auto) 11.0 H Urine Creatinine Urine Total Protein 02/25/20 02/25/20 02/25/20 00:03 03:49 03:49 WBC 29.1 H Hgb 9.4 L Hct 30.2 L MCV 71 L MCH 22 L RDW 18.3 H Plt Count 525 H Lymph % (Auto) 3.4 L Lymph # 1.0 L [place] # 1.0 H Seg Neutrophils % Seg Neutrophils # 26.4 H Sodium Chloride Carbon Dioxide BUN Creatinine Glucose POC Glucose 126 H Calcium Albumin Lipase 1486 H Urine WBC (Auto) Urine Creatinine Urine Total Protein 02/25/20 02/25/20 02/25/20 03:49 05:55 22:55 WBC Hgb Hct MCV MCH RDW Plt Count Lymph % (Auto) Lymph # [place] # Seg Neutrophils % Seg Neutrophils # Sodium 136 L Chloride 97.9 L Carbon Dioxide 21 L BUN 39 H Creatinine 3.0 H D Glucose 118 H POC Glucose 124 H Calcium Albumin 3.6 L Lipase Urine WBC (Auto) Urine Creatinine 161.0 H Urine Total Protein 150 H 02/26/20 02/26/20 04:39 04:39 WBC 30.3 H Hgb 9.1 L Hct 29.8 L MCV 71 L MCH 22 L RDW 18.2 H Plt Count 530 H Lymph % (Auto) Lymph # [place] # Seg Neutrophils % Seg Neutrophils # Sodium Chloride Carbon Dioxide 19 L BUN 44 H Creatinine 3.1 H Glucose 106 H POC Glucose Calcium 8.1 L Albumin Lipase 540 H Urine WBC (Auto) Urine Creatinine Urine Total Protein Allied health notes reviewed: nursing
[2020-02-26] MEDS: PANTOPRAZOLE 40 MG INJ IV SCH (09:22)
--- NOTE | 2020-02-26 10:09 | Progress Note ---
Assessment and Plan Assessment and plan: -- Acute pancreatitis Current Visit: Yes Status: Acute Plan to address problem: Mild improvement of symptoms Lipase trending down Lipase [phone] Continue n.p.o. status, IV Protonix IV fluid and IV pain medication. GI following, possible MRCP Ice chips as needed -- Hypertensive emergency Current Visit: Yes Status: Acute Plan to address problem: Continue Cardene drip, will hold oral antihypertensives Due to worsening pancreatitis with symptoms IV antihypertensives, Closely monitor --Medical noncompliance with diet and medication regimen Current Visit: Yes Status: Acute Plan to address problem: Counseling done, strongly advised to adhere To the medications, diet, follow-up visits Patient verbalized understanding -- DVT prophylaxis Current Visit: Yes Status: Acute Plan to address problem: Patient placed on subcutaneous heparin. --Obesity; BMI 37.9 patient needs weight reduction when medically stable -- Full code status Current Visit: Yes Status: Acute Follow GI and pulmonary evaluation and recommendations We will closely monitor the patient and adjust the management as needed Plan of care reviewed with the patient and her nurse Closely monitor the patient and adjust management as needed I called patient's daughter at [phone] Ms. Jewell and discussed with her patient's condition treatment plan Answered all her questions The high probability of a clinically significant, sudden or life threatening deterioration of the [GI, CVS, metabolic] system(s) required my full and direct attention, intervention and personal management. The aggregate critical care time was [32] minutes. This time is in addition to time spent performing reported procedures but includes the following: [x] Data Review and interpretation [x] Patient assessment and monitoring of vital signs [x] Documentation [x] Medication orders and management History Interval history: I have seen and examined the patient at the bedside Patient's chart and medications reviewed Patient is on Cardene drip for hypertensive emergency Also has acute pancreatitis n.p.o. status Vital signs reviewed Hospitalist Physical - Constitutional Vitals: Temp Pulse Resp BP Pulse Ox 99.6 F 119 H 32 H 149/92 91 02/26/20 08:00 02/26/20 10:05 02/26/20 10:05 02/26/20 10:05 02/26/20 10:05 General appearance: Present: mild distress, well-nourished, obese - EENT Eyes: Present: PERRL, EOM intact - Neck Neck: Present: supple, normal ROM - Respiratory Respiratory effort: normal Respiratory: bilateral: diminished, negative: rales, rhonchi, wheezing - Cardiovascular Rhythm: regular Heart Sounds: Present: S1 & S2 - Extremities Extremities: no ischemia, No edema - Abdominal General gastrointestinal: soft, tender (No guarding no rigidity), non-distended, normal bowel sounds - Integumentary Integumentary: Present: clear, warm - Psychiatric Psychiatric: appropriate mood/affect, cooperative - Neurologic Neurologic: moves all extremities Results - Labs CBC & Chem 7: 02/27/20 04:18 02/28/20 05:07 Labs: Laboratory Last Values WBC 30.3 K/mm3 (4.5-11.0) H 02/26/20 04:39 RBC 4.19 M/mm3 (3.65-5.03) 02/26/20 04:39 Hgb 9.1 gm/dl (10.1-14.3) L 02/26/20 04:39 Hct 29.8 % (30.3-42.9) L 02/26/20 04:39 MCV 71 fl (79-97) L 02/26/20 04:39 MCH 22 pg (28-32) L 02/26/20 04:39 MCHC 30 % (30-34) 02/26/20 04:39 RDW 18.2 % (13.2-15.2) H 02/26/20 04:39 Plt Count 530 K/mm3 (140-440) H 02/26/20 04:39 Lymph % (Auto) 3.4 % (13.4-35.0) L 02/25/20 03:49 [place] % (Auto) 5.5 % (0.0-7.3) 02/25/20 03:49 Eos % (Auto) 0.1 % (0.0-4.3) 02/25/20 03:49 Baso % (Auto) 0.2 % (0.0-1.8) 02/25/20 03:49 Lymph # 1.0 K/mm3 (1.2-5.4) L 02/25/20 03:49 [place] # 1.0 K/mm3 (0.0-0.8) H 02/25/20 03:49 Eos # 0.0 K/mm3 (0.0-0.4) 02/25/20 03:49 Baso # 0.1 K/mm3 (0.0-0.1) 02/25/20 03:49 Seg Neutrophils % Customer Account Technician 02/25/20 03:49 Seg Neutrophils # 26.4 K/mm3 (1.8-7.7) H 02/25/20 03:49 PT 13.7 Sec. (12.2-14.9) 02/25/20 03:49 INR 1.03 (0.87-1.13) 02/25/20 03:49 Sodium 139 mmol/L (137-145) 02/26/20 04:39 Potassium 4.1 mmol/L (3.6-5.0) 02/26/20 04:39 Chloride 104.0 mmol/L (98-107) 02/26/20 04:39 Carbon Dioxide 19 mmol/L (22-30) L 02/26/20 04:39 Anion Gap 20 mmol/L 02/26/20 04:39 BUN 44 mg/dL (7-17) H 02/26/20 04:39 Creatinine 3.1 mg/dL (0.6-1.2) H 02/26/20 04:39 Estimated GFR 20 ml/min 02/26/20 04:39 BUN/Creatinine Ratio 14 % 02/26/20 04:39 Glucose 106 mg/dL (65-100) H 02/26/20 04:39 POC Glucose 99 (70-105) 02/25/20 17:34 Calcium 8.1 mg/dL (8.4-10.2) L 02/26/20 04:39 Total Bilirubin 0.80 mg/dL (0.1-1.2) 02/25/20 03:49 AST 19 units/L (5-40) 02/25/20 03:49 ALT 12 units/L (7-56) 02/25/20 03:49 Alkaline Phosphatase 111 units/L (35-129) 02/25/20 03:49 Phosphorus 2.50 mg/dL (2.5-4.5) 02/26/20 04:39 Magnesium 1.80 mg/dL (1.7-2.3) 02/26/20 04:39 Total Protein 7.9 g/dL (6.3-8.2) 02/25/20 03:49 Albumin 3.6 g/dL (3.9-5) L 02/25/20 03:49 Albumin/Globulin Ratio 0.8 % 02/25/20 03:49 Triglycerides 118 mg/dL (2-149) 02/26/20 04:39 Lipase 540 units/L (13-60) H 02/26/20 04:39 HCG, Qual Negative (Negative) 02/24/20 02:53 PTH Intact 911.3 pg/mL (15-65) H 02/26/20 08:15 Urine Color Yellow (Yellow) 02/24/20 Unknown Urine Turbidity Clear (Clear) 02/24/20 Unknown Urine pH 6.0 (5.0-7.0) 02/24/20 Unknown Ur Specific Victor 1.020 (1.003-1.030) 02/24/20 Unknown Urine Protein >500 mg/dL (Negative) 02/24/20 Unknown Urine Glucose (UA) 50 mg/dL (Negative) 02/24/20 Unknown Urine Ketones Neg mg/dL (Negative) 02/24/20 Unknown Urine Blood Lg (Negative) 02/24/20 Unknown Urine Nitrite Neg (Negative) 02/24/20 Unknown Urine Bilirubin Neg (Negative) 02/24/20 Unknown Urine Urobilinogen < 2.0 mg/dL (<2.0) 02/24/20 Unknown Ur Leukocyte Esterase Neg (Negative) 02/24/20 Unknown Urine WBC (Auto) 11.0 /HPF (0.0-6.0) H 02/24/20 Unknown Urine RBC (Auto) 149.0 /HPF (0.0-6.0) 02/24/20 Unknown U Epithel Cells (Auto) 5.0 /HPF (0-13.0) 02/24/20 Unknown Urine Bacteria (Auto) 1+ /HPF (Negative) 02/24/20 Unknown Urine Mucus Few /HPF 02/24/20 Unknown Urine Creatinine 161.0 mg/dL (0.1-20.0) H 02/25/20 22:55 Protein/Creatinin Ratio 0.93 02/25/20 22:55 Urine Total Protein 150 mg/dL (5-11.8) H 02/25/20 22:55 Microbiology: Microbiology 02/24/20 Unknown Urine,Clean Catch Urine Culture - Preliminary Franks/IV: Voiding Method Toilet IV Catheter Type [Right Wrist] Peripheral IV IV Catheter Type [Right Peripheral IV Antecubital] Active Medications - Current Medications Current Medications: Generic Name Dose Route Start Last Admin Trade Name Freq PRN Reason Stop Dose Admin Heparin Sodium (Porcine) 5,000 unit 02/24/20 14:00 02/26/20 05:40 Heparin SUB-Q Not Given Q8HR INDU Hydromorphone HCl 1 mg 02/25/20 10:32 02/26/20 07:30 Dilaudid IV 1 mg Q3HR PRN Administration Pain , Severe (7-10) Hydromorphone/Sodium Chloride 0 mg 02/26/20 10:00 Dilaudid [place] 6mg/30ml IV DIRECT INDU Protocol Sodium Chloride 1,000 mls @ 125 mls/hr 02/24/20 06:45 02/26/20 04:07 Nacl 0.9% 1000 Ml IV 125 mls/hr DIRECT INDU Administration Nicardipine HCl 50 mg/ Sodium 250 mls @ 25 mls/hr 02/24/20 07:00 02/26/20 09:24 Chloride IV 5 mg/hr TITR INDU 25 mls/hr Administration Protocol 5 MG/HR Ondansetron HCl 4 mg 02/24/20 06:45 02/25/20 23:33 Zofran IV 4 mg Q8H PRN Administration Nausea And Vomiting Pantoprazole Sodium 40 mg 02/24/20 13:00 02/26/20 09:22 Protonix IV 40 mg QDAY INDU Administration Sodium Chloride 10 ml 02/24/20 10:00 02/26/20 09:22 Sodium Chloride Flush Syringe 10 Ml IV 10 ml BID INDU Administration Sodium Chloride 10 ml 02/24/20 06:45 Sodium Chloride Flush Syringe 10 Ml IV PRN PRN LINE FLUSH Nutrition/Malnutrition Assess - Dietary Evaluation Nutrition/Malnutrition Findings: Nutrition Notes Start: 02/24/20 13:42 Freq: Status: Active Protocol: Document 02/25/20 13:21 [email or web address] (Rec: 02/25/20 14:37 [email or web address]) Co-Sign 02/25/20 13:21 NHALL Nutrition Notes Initial or Follow up Reassessment Current Diagnosis Hypertension,Hyperlipidemia Other Pertinent Diagnosis Acute pancreatitis Current Diet NPO Labs/Tests Na 136 BUN 39 Cr 3 Lipase 1486 Pertinent Medications Zofran Height 5 ft 1 in Weight 91 kg [place] Body Weight (kg) 47.72 BMI 37.9 Weight Status Obese Subjective/Other Information F/U for diet education. Pt not appropraite for diet eductation at this time. Per MD, Strict NPO. Per MD, pt may require TPN. Burn Absent Trauma Absent GI Symptoms Nausea Current % PO Negligible Minimum of two criteria No physical signs of malnutrition #2 Nutrition Diagnosis Inadequate oral intake Diagnosis Progress(for reassessment Continues documentation) #1 Nutrition Diagnosis Food and nutrition-related knowledge deficit Diagnosis Progress(for reassessment Continues documentation) Is patient on ventilator? No Is Patient Ambulatory and/or Out of Bed Yes REE-([place]. Jeor-ambulatory/OOB) [ 1972.594 [id number]] Kcal/Kg value to use for calculation 16 Approximate Energy Requirements Using 1456 kcal/Kg Additional Notes Protein needs: 55-69g (0.8-1g/ kg AdjBW 69 kg) Fluid needs: 1 ml/kcal Nutrition Intervention Change Diet Order: Advance when medically feasible Goal #2 Advance diet when medically feasible Anticipated Discharge Needs: Undetermined at this time Follow-Up By: 02/27/20 Additional Comments F/U for diet advancement vs need for PN
--- NOTE | 2020-02-26 10:20 | Event Note ---
Date: 02/26/20 I called patient's daughter at [phone] Ms. Jewell and discussed with her patient's condition treatment plan Answered all her questions. She wants to come and visit the patient, I asked her to check with the nurse about the visiting restrictions
--- NOTE | 2020-02-26 10:20 | Gastroenterology Progress Note ---
Assessment and Plan - Patient Problems (1) Acute pancreatitis Current Visit: Yes Status: Acute Plan to address problem: - Possible passed gallstone, but LFTs WNL, no stones on US, and the CBD is normal in size; no indication for ERCP at present. Does have a hx of EtOH, but minimal per patient. - Will recheck labs tomorrow, and get MRCP if patient can tolerate; with normal LFTs I doubt small calcification seen on CT in region of pancreas head is a stone in the CBD or PD (no upstream dilation). - If ERCP needed, will need improved BP control. Continue nifedipine gtt. - Patient should avoid NSAIDs and EtOH; I started protonix but doubt penetrating PUD in absence of free air. Subjective Date of service: 02/26/20 Principal diagnosis: Pancreatitis Interval history: The patient feels a little better today with no N/V (wants to eat) and less abdominal pain. She has not had a BM. Objective - Constitutional Vitals: Temp Pulse Resp BP Pulse Ox 99.6 F 119 H 32 H 149/92 91 02/26/20 08:00 02/26/20 10:05 02/26/20 10:05 02/26/20 10:05 02/26/20 10:05 General appearance: no acute distress - EENT Eyes: PERRL, EOM intact - Respiratory Respiratory effort: normal Respiratory: bilateral: CTA - Cardiovascular Heart Rate: 115 Rhythm: regular Heart Sounds: Present: S1 & S2 - Gastrointestinal General gastrointestinal: Present: soft, tender (Minimal without guard), non- distended - Labs CBC & Chem 7: 02/26/20 04:39 02/26/20 04:39 Labs: Laboratory Results - last 24 hr 02/25/20 02/25/20 02/26/20 17:34 22:55 04:39 WBC 30.3 H RBC 4.19 Hgb 9.1 L Hct 29.8 L MCV 71 L MCH 22 L MCHC 30 RDW 18.2 H Plt Count 530 H Sodium Potassium Chloride Carbon Dioxide Anion Gap BUN Creatinine Estimated GFR BUN/Creatinine Ratio Glucose POC Glucose 99 Calcium Phosphorus Magnesium Triglycerides Lipase PTH Intact Urine Creatinine 161.0 H Protein/Creatinin Ratio 0.93 Urine Total Protein 150 H 02/26/20 02/26/20 04:39 08:15 WBC RBC Hgb Hct MCV MCH MCHC RDW Plt Count Sodium 139 Potassium 4.1 Chloride 104.0 Carbon Dioxide 19 L Anion Gap 20 BUN 44 H Creatinine 3.1 H Estimated GFR 20 BUN/Creatinine Ratio 14 Glucose 106 H POC Glucose Calcium 8.1 L Phosphorus 2.50 Magnesium 1.80 Triglycerides 118 Lipase 540 H PTH Intact 911.3 H Urine Creatinine Protein/Creatinin Ratio Urine Total Protein
--- NOTE | 2020-02-26 11:21 | Progress Note ---
Assessment and Plan Cultures: Urine culture grew 10-100,000 usual skin xavier. Assessment: 39 years old female with history of hypertension, previous kidney stone, hyperlipidemia and obesity admitted on 02/24/2020 due to a week history of severe epigastric abdominal pain radiated to the right flank and back: #Acute sepsis: Noted increasing leukocytosis. Urinalysis with minimal pyuria however negative leukocyte esterase. Doubt UTI. Likely secondary to severe pancreatitis. #Acute severe pancreatitis: Noncontrasted CT shows no evidence of necrosis or pseudocyst or abscess formation. No evidence of infected necrotic pancreatitis. #JUANIS: Likely secondary to pancreatitis, not better. Recommendations: -Appreciate GI medicine evaluation -Bowel rest -Pain management -No prophylactic antibiotics recommended, there is no evidence of infected necrotic pancreatitis -Consider repeating CT abdomen or CT MRI if no improvement -Monitor creatinine and leukocytosis Will follow. Nallely Ty MD Infectious Diseases Per Diem [facility] ([facility]) M [phone] O [phone] Subjective Date of service: 02/26/20 Principal diagnosis: Pancreatitis Interval history: Patient reports feeling some better, abdominal pain 6 out of 10, no fever, on Cardizem drip tachycardia on monitor Objective - Exam Narrative Exam: General appearance: Alert no acute distress Eyes: anicteric sclerae, moist conjunctivae; no lid-lag; PERRLA HENT: Atraumatic; oropharynx clear with moist mucous membranes and no oral thrush; normal hard and soft palate. Lungs: Clear to auscultation bilaterally CV: Tachycardic Abdomen: Tense, diffuse tenderness decreased bowel sounds Extremities: no edema, no cyanosis Skin: No rash. Psych: No agitated Neuro: Alert and oriented x 3. Moving all extermities - Constitutional Vitals: Vital Signs Temp Pulse Resp BP Pulse Ox 99.6 F 119 H 32 H 149/92 91 02/26/20 08:00 02/26/20 10:05 02/26/20 10:05 02/26/20 10:05 02/26/20 10:05 Temperature -Last 24 Hours Temperature 99.6 F Temperature 99.4 F Temperature 98.7 F Temperature 98.7 F Temperature 98.9 F Temperature 97.5 F Temperature 98.7 F - Labs CBC & Chem 7: 02/26/20 04:39 02/26/20 04:39 Labs: Abnormal lab results 02/25/20 02/26/20 02/26/20 Range/Units 22:55 04:39 04:39 WBC 30.3 H (4.5-11.0) K/mm3 Hgb 9.1 L (10.1-14.3) gm/dl Hct 29.8 L (30.3-42.9) % MCV 71 L (79-97) fl MCH 22 L (28-32) pg RDW 18.2 H (13.2-15.2) % Plt Count 530 H (140-440) K/mm3 Carbon Dioxide 19 L (22-30) mmol/L BUN 44 H (7-17) mg/dL Creatinine 3.1 H (0.6-1.2) mg/dL Glucose 106 H (65-100) mg/dL Calcium 8.1 L (8.4-10.2) mg/dL Lipase 540 H (13-60) units/L PTH Intact (15-65) pg/mL Urine Creatinine 161.0 H (0.1-20.0) mg/dL Urine Total Protein 150 H (5-11.8) mg/dL 02/26/20 Range/Units 08:15 WBC (4.5-11.0) K/mm3 Hgb (10.1-14.3) gm/dl Hct (30.3-42.9) % MCV (79-97) fl MCH (28-32) pg RDW (13.2-15.2) % Plt Count (140-440) K/mm3 Carbon Dioxide (22-30) mmol/L BUN (7-17) mg/dL Creatinine (0.6-1.2) mg/dL Glucose (65-100) mg/dL Calcium (8.4-10.2) mg/dL Lipase (13-60) units/L PTH Intact 911.3 H (15-65) pg/mL Urine Creatinine (0.1-20.0) mg/dL Urine Total Protein (5-11.8) mg/dL
[2020-02-26] MEDS: HYDROmorphone/NS 6 MG/30 ML PCA INJ IV SCH (11:44)
--- NOTE | 2020-02-26 12:06 | Progress Note ---
Assessment and Plan # Acute Kidney Injury: suspect JUANIS in setting of hypertensive urgency and pre- renal injury from pancreatitis. Additional JUANIS risk factors include use of NSAID (Toradol) and PPI. Creatinine 1.5 in September 2019, may have underlying CKD, PTH is higher than expected potentially reflective of secondary hyperparathyroidism of CKD. Creatinine has worsened from 1.7->3.0->3.1 since admission. - avoid NSAIDs as able - consider alternative to PPI if able - IVF as tolerated - strict Is/Os - ordered serologies; minimal proteinuria per UP/C, PTH at goal for CKD; reviewed urinalysis which does show hematuria and proteinuria - BP control as below # Hypertensive Emergency: agree with Cardene gtt, can titrate back to home amlodipine, metoprolol once able to tolerate po regimen. On HANNA-I at home, hold for now. Did discuss importance of medication and diet compliance # Pancreatitis: appreciate GI, pain management per primary. Continue aggressive IVF as tolerated # Thrombocytosis # Leukocytosis Subjective Date of service: 02/26/20 Principal diagnosis: Pancreatitis Interval history: No acute changes noted, remains NPO Objective - Exam Narrative Exam: General appearance: well appearing, in no acute distress Eyes: anicteric sclerae HENT: Atraumatic; oropharynx Lungs: Clear to auscultation bilaterally CV: RRR, no murmur Abdomen: Tenseds Extremities: no edema Skin: No rash. Psych: awake now Neuro: alert and oriented x 3. Moving all extermities - Vital Signs Vital signs: Vital Signs - 12hr 02/26/20 02/26/20 02/26/20 00:05 00:11 00:15 Temperature Pulse Rate 113 H 114 H 115 H Pulse Rate [ From Monitor] Respiratory 24 25 H 29 H Rate Blood Pressure 182/98 182/98 183/104 O2 Sat by Pulse 93 93 92 Oximetry 02/26/20 02/26/20 02/26/20 00:21 00:23 00:25 Temperature 98.7 F Pulse Rate 115 H 115 H Pulse Rate [ From Monitor] Respiratory 23 24 Rate Blood Pressure 182/98 182/98 O2 Sat by Pulse 93 92 Oximetry 02/26/20 02/26/20 02/26/20 00:30 00:35 00:41 Temperature Pulse Rate 114 H 116 H 114 H Pulse Rate [ From Monitor] Respiratory 28 H 25 H 26 H Rate Blood Pressure 191/108 191/108 191/108 O2 Sat by Pulse 93 94 93 Oximetry 02/26/20 02/26/20 02/26/20 00:45 00:51 00:55 Temperature Pulse Rate 115 H 114 H 116 H Pulse Rate [ From Monitor] Respiratory 32 H 25 H 26 H Rate Blood Pressure 166/89 166/89 166/89 O2 Sat by Pulse 91 93 94 Oximetry 02/26/20 02/26/20 02/26/20 01:00 01:05 01:11 Temperature Pulse Rate 116 H 117 H 118 H Pulse Rate [ From Monitor] Respiratory 31 H 28 H 25 H Rate Blood Pressure 152/98 152/98 152/98 O2 Sat by Pulse 91 93 94 Oximetry 02/26/20 02/26/20 02/26/20 01:15 01:21 01:25 Temperature Pulse Rate 116 H 116 H 116 H Pulse Rate [ From Monitor] Respiratory 31 H 29 H 29 H Rate Blood Pressure 152/103 152/98 152/98 O2 Sat by Pulse 90 93 93 Oximetry 02/26/20 02/26/20 02/26/20 01:30 01:35 01:41 Temperature Pulse Rate 116 H 117 H 119 H Pulse Rate [ From Monitor] Respiratory 29 H 26 H 18 Rate Blood Pressure 165/89 165/89 165/89 O2 Sat by Pulse 94 93 Oximetry 02/26/20 02/26/20 02/26/20 01:45 01:51 01:55 Temperature Pulse Rate 119 H 120 H 114 H Pulse Rate [ From Monitor] Respiratory 26 H 33 H 26 H Rate Blood Pressure 165/89 165/89 159/93 O2 Sat by Pulse 97 Oximetry 02/26/20 02/26/20 02/26/20 02:00 02:05 02:11 Temperature Pulse Rate 111 H 112 H 112 H Pulse Rate [ From Monitor] Respiratory 24 25 H 21 Rate Blood Pressure 170/86 170/86 170/86 O2 Sat by Pulse 90 90 91 Oximetry 02/26/20 02/26/20 02/26/20 02:15 02:21 02:25 Temperature Pulse Rate 112 H 113 H 112 H Pulse Rate [ From Monitor] Respiratory 24 26 H 22 Rate Blood Pressure 160/84 170/86 170/86 O2 Sat by Pulse 89 90 92 Oximetry 02/26/20 02/26/20 02/26/20 02:30 02:35 02:41 Temperature Pulse Rate 112 H 113 H 115 H Pulse Rate [ From Monitor] Respiratory 22 26 H 25 H Rate Blood Pressure 141/90 141/90 141/90 O2 Sat by Pulse 91 89 92 Oximetry 02/26/20 02/26/20 02/26/20 02:45 02:51 02:55 Temperature Pulse Rate 113 H 112 H 113 H Pulse Rate [ From Monitor] Respiratory 22 22 25 H Rate Blood Pressure 140/89 141/90 141/90 O2 Sat by Pulse 90 92 92 Oximetry 02/26/20 02/26/20 02/26/20 03:00 03:05 03:11 Temperature Pulse Rate 115 H 114 H 115 H Pulse Rate [ From Monitor] Respiratory 27 H 21 26 H Rate Blood Pressure 165/97 165/97 165/97 O2 Sat by Pulse 91 92 93 Oximetry 02/26/20 02/26/20 02/26/20 03:15 03:21 03:25 Temperature Pulse Rate 115 H 116 H 114 H Pulse Rate [ From Monitor] Respiratory 26 H 26 H 26 H Rate Blood Pressure 170/92 170/92 165/97 O2 Sat by Pulse 93 93 93 Oximetry 02/26/20 02/26/20 02/26/20 03:30 03:34 03:35 Temperature 99.4 F Pulse Rate 114 H 114 H Pulse Rate [ From Monitor] Respiratory 26 H 25 H Rate Blood Pressure 151/89 151/89 O2 Sat by Pulse 91 93 Oximetry 02/26/20 02/26/20 02/26/20 03:41 03:45 03:51 Temperature Pulse Rate 115 H 115 H 115 H Pulse Rate [ From Monitor] Respiratory 24 28 H 26 H Rate Blood Pressure 151/89 170/98 170/98 O2 Sat by Pulse 92 90 93 Oximetry 02/26/20 02/26/20 02/26/20 03:55 04:00 04:01 Temperature Pulse Rate 119 H 121 H 120 H Pulse Rate [ 121 H From Monitor] Respiratory 22 29 H 20 Rate Blood Pressure 170/98 170/98 O2 Sat by Pulse 92 Oximetry 02/26/20 02/26/20 02/26/20 04:05 04:10 04:15 Temperature Pulse Rate 119 H 118 H 118 H Pulse Rate [ From Monitor] Respiratory 28 H 29 H 31 H Rate Blood Pressure 170/98 158/92 160/92 O2 Sat by Pulse 96 92 Oximetry 02/26/20 02/26/20 02/26/20 04:21 04:25 04:30 Temperature Pulse Rate 116 H 116 H 114 H Pulse Rate [ From Monitor] Respiratory 27 H 29 H 27 H Rate Blood Pressure 160/92 158/92 164/86 O2 Sat by Pulse 91 92 92 Oximetry 02/26/20 02/26/20 02/26/20 04:35 04:41 04:45 Temperature Pulse Rate 113 H 114 H 115 H Pulse Rate [ From Monitor] Respiratory 28 H 27 H 28 H Rate Blood Pressure 164/86 164/86 164/86 O2 Sat by Pulse 90 92 91 Oximetry 02/26/20 02/26/20 02/26/20 04:51 04:55 05:00 Temperature Pulse Rate 114 H 114 H 114 H Pulse Rate [ From Monitor] Respiratory 26 H 26 H 27 H Rate Blood Pressure 164/86 164/86 142/88 O2 Sat by Pulse 90 91 91 Oximetry 02/26/20 02/26/20 02/26/20 05:05 05:11 05:15 Temperature Pulse Rate 114 H 116 H 115 H Pulse Rate [ From Monitor] Respiratory 27 H 26 H 27 H Rate Blood Pressure 142/88 142/88 166/89 O2 Sat by Pulse 91 91 91 Oximetry 02/26/20 02/26/20 02/26/20 05:21 05:25 05:30 Temperature Pulse Rate 115 H 114 H 114 H Pulse Rate [ From Monitor] Respiratory 27 H 25 H 25 H Rate Blood Pressure 166/89 142/88 149/84 O2 Sat by Pulse 92 92 91 Oximetry 02/26/20 02/26/20 02/26/20 05:35 05:41 05:45 Temperature Pulse Rate 115 H 116 H 115 H Pulse Rate [ From Monitor] Respiratory 26 H 28 H 25 H Rate Blood Pressure 149/84 149/84 170/83 O2 Sat by Pulse 92 93 93 Oximetry 02/26/20 02/26/20 02/26/20 05:51 05:55 06:00 Temperature Pulse Rate 116 H 118 H 119 H Pulse Rate [ From Monitor] Respiratory 25 H 22 27 H Rate Blood Pressure 170/83 170/83 157/100 O2 Sat by Pulse 92 91 94 Oximetry 02/26/20 02/26/20 02/26/20 06:05 06:11 06:15 Temperature Pulse Rate 116 H 115 H 118 H Pulse Rate [ From Monitor] Respiratory 28 H 27 H 29 H Rate Blood Pressure 157/100 157/100 179/106 O2 Sat by Pulse 93 93 92 Oximetry 02/26/20 02/26/20 02/26/20 06:21 06:25 06:30 Temperature Pulse Rate 118 H 122 H 120 H Pulse Rate [ From Monitor] Respiratory 27 H 27 H 27 H Rate Blood Pressure 179/106 179/106 160/87 O2 Sat by Pulse 94 95 Oximetry 02/26/20 02/26/20 02/26/20 06:35 06:41 06:45 Temperature Pulse Rate 117 H 116 H 116 H Pulse Rate [ From Monitor] Respiratory 27 H 28 H 29 H Rate Blood Pressure 160/87 160/87 156/84 O2 Sat by Pulse 95 93 92 Oximetry 02/26/20 02/26/20 02/26/20 06:51 06:55 07:00 Temperature Pulse Rate 116 H 118 H 121 H Pulse Rate [ From Monitor] Respiratory 26 H 26 H 25 H Rate Blood Pressure 156/84 156/84 174/91 O2 Sat by Pulse 93 92 94 Oximetry 02/26/20 02/26/20 02/26/20 07:05 07:11 07:15 Temperature Pulse Rate 120 H 119 H 121 H Pulse Rate [ From Monitor] Respiratory 27 H 34 H 33 H Rate Blood Pressure 174/91 174/91 168/92 O2 Sat by Pulse 91 94 90 Oximetry 02/26/20 02/26/20 02/26/20 07:21 07:25 07:30 Temperature Pulse Rate 119 H 118 H 117 H Pulse Rate [ From Monitor] Respiratory 28 H 29 H 27 H Rate Blood Pressure 168/92 168/92 142/91 O2 Sat by Pulse 95 93 93 Oximetry 02/26/20 02/26/20 02/26/20 07:35 07:41 07:43 Temperature Pulse Rate 116 H 115 H Pulse Rate [ 115 H From Monitor] Respiratory 28 H 28 H 25 H Rate Blood Pressure 142/91 142/91 O2 Sat by Pulse 91 90 91 Oximetry 02/26/20 02/26/20 02/26/20 07:45 07:51 07:55 Temperature Pulse Rate 116 H 116 H 116 H Pulse Rate [ From Monitor] Respiratory 29 H 29 H 30 H Rate Blood Pressure 160/88 160/88 160/88 O2 Sat by Pulse 89 91 91 Oximetry 02/26/20 02/26/20 02/26/20 08:00 08:05 08:11 Temperature 99.6 F Pulse Rate 117 H 117 H 119 H Pulse Rate [ From Monitor] Respiratory 27 H 27 H 28 H Rate Blood Pressure 149/92 149/92 149/92 O2 Sat by Pulse 91 91 94 Oximetry 02/26/20 02/26/20 02/26/20 08:15 08:21 08:25 Temperature Pulse Rate 119 H 118 H 116 H Pulse Rate [ From Monitor] Respiratory 28 H 29 H 29 H Rate Blood Pressure 138/93 138/93 138/93 O2 Sat by Pulse 92 90 91 Oximetry 02/26/20 02/26/20 02/26/20 08:30 08:35 08:41 Temperature Pulse Rate 118 H 121 H 119 H Pulse Rate [ From Monitor] Respiratory 29 H 28 H 24 Rate Blood Pressure 164/91 164/91 164/91 O2 Sat by Pulse 89 91 95 Oximetry 02/26/20 02/26/20 02/26/20 08:45 08:51 08:55 Temperature Pulse Rate 117 H 119 H 118 H Pulse Rate [ From Monitor] Respiratory 28 H 27 H 30 H Rate Blood Pressure 154/100 154/100 154/100 O2 Sat by Pulse 93 93 94 Oximetry 02/26/20 02/26/20 02/26/20 09:00 09:05 09:11 Temperature Pulse Rate 117 H 117 H 120 H Pulse Rate [ From Monitor] Respiratory 33 H 30 H 29 H Rate Blood Pressure 152/95 152/95 152/95 O2 Sat by Pulse 93 94 95 Oximetry 02/26/20 02/26/20 02/26/20 09:15 09:21 09:25 Temperature Pulse Rate 119 H 120 H 119 H Pulse Rate [ From Monitor] Respiratory 29 H 27 H 29 H Rate Blood Pressure 175/100 175/100 143/86 O2 Sat by Pulse 91 95 93 Oximetry 02/26/20 02/26/20 02/26/20 09:30 09:35 09:41 Temperature Pulse Rate 119 H 121 H 120 H Pulse Rate [ From Monitor] Respiratory 25 H 29 H 29 H Rate Blood Pressure 156/88 156/88 156/88 O2 Sat by Pulse 95 91 93 Oximetry 02/26/20 02/26/20 02/26/20 09:45 09:51 09:55 Temperature Pulse Rate 118 H 120 H 119 H Pulse Rate [ From Monitor] Respiratory 28 H 33 H 29 H Rate Blood Pressure 150/87 150/87 150/87 O2 Sat by Pulse 94 93 93 Oximetry 02/26/20 02/26/20 10:00 10:05 Temperature Pulse Rate 121 H 119 H Pulse Rate [ From Monitor] Respiratory 22 32 H Rate Blood Pressure 149/92 149/92 O2 Sat by Pulse 94 91 Oximetry - Lab 02/26/20 04:39 02/26/20 04:39 Most recent lab results Calcium 8.1 mg/dL (8.4-10.2) L 02/26/20 04:39 Phosphorus 2.50 mg/dL (2.5-4.5) 02/26/20 04:39 Magnesium 1.80 mg/dL (1.7-2.3) 02/26/20 04:39 Urine Creatinine 161.0 mg/dL (0.1-20.0) H 02/25/20 22:55 Urine Total Protein 150 mg/dL (5-11.8) H 02/25/20 22:55 Medications & Allergies - Medications Allergies/Adverse Reactions: Allergies No Known Allergies Allergy (Unverified 09/05/19 10:15) Home Medications: Home Medications Medication Instructions Recorded Confirmed Last Taken Type Amlodipine Besylate [Norvasc] 10 mg PO DAILY 09/05/19 02/24/20 09/04/19 History Furosemide [Lasix] 20 mg PO QDAY #30 tablet 09/05/19 02/24/20 Unknown Rx Lisinopril [Zestril] 5 mg PO DAILY #30 tablet 09/05/19 02/24/20 Unknown Rx Metoprolol [Lopressor TAB] 25 mg PO BID #60 tablet 09/05/19 02/24/20 Unknown Rx Active Medications: Generic Name Dose Route Start Last Admin Trade Name Freq PRN Reason Stop Dose Admin Heparin Sodium (Porcine) 5,000 unit 02/24/20 14:00 02/26/20 05:40 Heparin SUB-Q Not Given Q8HR INDU Hydromorphone HCl 1 mg 02/25/20 10:32 02/26/20 10:25 Dilaudid IV 1 mg Q3HR PRN Administration Pain , Severe (7-10) Hydromorphone/Sodium Chloride 0 mg 02/26/20 10:00 02/26/20 11:44 Dilaudid Dry Cell Assembly Supervisor 6mg/30ml IV 1 cart DIRECT INDU Administration Protocol Sodium Chloride 1,000 mls @ 125 mls/hr 02/24/20 06:45 02/26/20 11:35 Nacl 0.9% 1000 Ml IV 125 mls/hr DIRECT INDU Administration Nicardipine HCl 50 mg/ Sodium 250 mls @ 25 mls/hr 02/24/20 07:00 02/26/20 09:24 Chloride IV 5 mg/hr TITR INDU 25 mls/hr Administration Protocol 5 MG/HR Ondansetron HCl 4 mg 02/24/20 06:45 02/25/20 23:33 Zofran IV 4 mg Q8H PRN Administration Nausea And Vomiting Pantoprazole Sodium 40 mg 02/24/20 13:00 02/26/20 09:22 Protonix IV 40 mg QDAY INDU Administration Sodium Chloride 10 ml 02/24/20 10:00 02/26/20 09:22 Sodium Chloride Flush Syringe 10 Ml IV 10 ml BID INDU Administration Sodium Chloride 10 ml 02/24/20 06:45 Sodium Chloride Flush Syringe 10 Ml IV PRN PRN LINE FLUSH
[2020-02-26] MEDS: ACETAMINOPHEN 325 MG TAB PO PRN (16:37)
[2020-02-26] MEDS: PIPERACIL-TAZO 2.25 GM/50 ML 2.25 GM/50 ML BAG IV SCH (18:44)
[2020-02-26] MEDS ORDERED: TOTAL PARENTERAL NUTRITION 2,016 ML IV SCH (20:00)
[2020-02-27] MEDS: HYDROmorphone/NS 6 MG/30 ML PCA INJ IV SCH ×2 (00:03→09:35)
[2020-02-27] MEDS: PIPERACIL-TAZO 2.25 GM/50 ML 2.25 GM/50 ML BAG IV SCH ×2 (02:09→09:49)
[2020-02-27 05:45] LABS: Hematocrit 26.3 % (30.3-42.9); Hemoglobin 7.9 gm/dl (10.1-14.3); Mean Corpuscular HGB Conc 30 % (30-34); Mean Corpuscular Volume 70 fl (79-97); Platelet Count 513 K/mm3 (140-440); Red Blood Count 3.76 M/mm3 (3.65-5.03)
[2020-02-27] MEDS: HEPARIN 5,000 UNIT/1 ML VIAL SUB-Q SCH ×3 (05:48→21:41)
[2020-02-27 06:15] LABS: Calcium 7.4 mg/dL (8.4-10.2); Calcium 7.5 mg/dL (8.4-10.2)
[2020-02-27 06:29] LABS: C-Reactive Protein 37.3 mg/dL (0.00-1.30)
[2020-02-27] MEDS: SODIUM CHLORIDE 0.9% 1000 ML 1,000 ML IV SCH (06:42)
[2020-02-27] MEDS: niCARdipine 50 MG in SODIUM CHLORIDE 0.9% 250ML 230 ML IV SCH ×2 (06:43→18:36)
--- NOTE | 2020-02-27 09:11 | Progress Note ---
Assessment and Plan Cultures: Urine culture grew 10-100,000 usual skin xavier. Assessment: 39 years old female with history of hypertension, previous kidney stone, hyperlipidemia and obesity admitted on 02/24/2020 due to a week history of severe epigastric abdominal pain radiated to the right flank and back: #Acute sepsis: leukocytosis improving, noted fever 101.5. Urinalysis with minimal pyuria however negative leukocyte esterase. Doubt UTI. Likely secondary to severe pancreatitis. #Acute severe pancreatitis: patient tolerating fluids. Noncontrasted CT shows no evidence of necrosis or pseudocyst or abscess formation. No evidence of infected necrotic pancreatitis. Repeat CT shows Interval worsening of inflammatory changes to the pancreatic parenchyma extending now to the pancreat ic body with significant interval worsening of peripancreatic fat stranding and surrounding disorganized fluid. #JUANIS: Likely secondary to pancreatitis, not better, renal on board Recommendations: -f/u blood culture -f/u MRCP -zosyn started -Bowel rest -Pain management -Monitor creatinine and leukocytosis Will follow. Nallely Ty MD Infectious Diseases Shipper/Receiver [facility] M [phone] O [phone] Subjective Date of service: 02/27/20 Principal diagnosis: Pancreatitis Interval history: Patient reports feeling some better, abdominal pain 5 out of 10, no fever, tachycardia on monitor, isolated fever 101.5 Objective - Exam Narrative Exam: General appearance: Alert no acute distress Eyes: anicteric sclerae, moist conjunctivae; no lid-lag; PERRLA HENT: Atraumatic; oropharynx clear Lungs: Clear to auscultation bilaterally CV: Tachycardic Abdomen: soft, diffuse tenderness decreased bowel sounds Extremities: no edema, no cyanosis Skin: No rash. Psych: No agitated Neuro: Alert and oriented x 3. Moving all extermities - Constitutional Vitals: Vital Signs Temp Pulse Resp BP Pulse Ox 98.4 F 117 H 26 H 177/90 93 02/27/20 07:47 02/27/20 08:30 02/27/20 08:44 02/27/20 08:30 02/27/20 08:48 Temperature -Last 24 Hours Temperature 98.4 F Temperature 99.1 F Temperature 98.9 F Temperature 99.4 F Temperature 101.5 F Temperature 98.3 F - Labs CBC & Chem 7: 02/27/20 04:18 02/27/20 04:18 Labs: Abnormal lab results 02/26/20 02/26/20 02/27/20 Range/Units 08:15 12:14 04:18 WBC (4.5-11.0) K/mm3 Hgb (10.1-14.3) gm/dl Hct (30.3-42.9) % MCV (79-97) fl MCH (28-32) pg RDW (13.2-15.2) % Plt Count (140-440) K/mm3 Sodium 135 L (137-145) mmol/L Carbon Dioxide 15 L (22-30) mmol/L BUN 50 H (7-17) mg/dL Creatinine 3.4 H (0.6-1.2) mg/dL POC Glucose 112 H (70-105) Calcium 7.4 L (8.4-10.2) mg/dL C-Reactive Protein (0.00-1.30) mg/dL Albumin (3.9-5) g/dL Lipase (13-60) units/L PTH Intact 911.3 H (15-65) pg/mL 02/27/20 02/27/20 Range/Units 04:18 04:18 WBC 26.8 H (4.5-11.0) K/mm3 Hgb 7.9 L (10.1-14.3) gm/dl Hct 26.3 L (30.3-42.9) % MCV 70 L (79-97) fl MCH 21 L (28-32) pg RDW 18.0 H (13.2-15.2) % Plt Count 513 H (140-440) K/mm3 Sodium 135 L (137-145) mmol/L Carbon Dioxide 16 L (22-30) mmol/L BUN 51 H (7-17) mg/dL Creatinine 3.4 H (0.6-1.2) mg/dL POC Glucose (70-105) Calcium 7.5 L (8.4-10.2) mg/dL C-Reactive Protein 37.30 H (0.00-1.30) mg/dL Albumin 3.0 L (3.9-5) g/dL Lipase 177 H (13-60) units/L PTH Intact (15-65) pg/mL
--- NOTE | 2020-02-27 09:31 | Progress Note ---
Assessment and Plan # Acute Kidney Injury: suspect JUANIS in setting of hypertensive urgency and pre- renal injury from pancreatitis. Additional JUANIS risk factors include use of NSAID (Toradol) and PPI. Creatinine 1.5 in September 2019, may have underlying CKD, PTH is higher than expected potentially reflective of secondary hyperparathyroidism of CKD. Creatinine has worsened from 1.7->3.0->3.1->3.4 since admission. - avoid NSAIDs as able - consider alternative to PPI if able - IVF as tolerated - strict Is/Os - ordered serologies; minimal proteinuria per UP/C, PTH high for CKD; reviewed urinalysis which does show hematuria and proteinuria - BP control as below # Hypertensive Emergency: agree with Cardene gtt, can titrate back to home amlodipine, metoprolol once able to tolerate po regimen. On HANNA-I at home, hold for now. Did discuss importance of medication and diet compliance # Acidosis: start po HCO3 once able to take oral meds # Pancreatitis: appreciate GI, pain management per primary. Continue aggressive IVF as tolerated # Thrombocytosis # Leukocytosis Subjective Date of service: 02/27/20 Principal diagnosis: Pancreatitis Interval history: No acute changes noted, now on clear liquid diet Objective - Exam Narrative Exam: General appearance: well appearing, in no acute distress Eyes: anicteric sclerae HENT: Atraumatic; oropharynx Lungs: Clear to auscultation bilaterally CV: RRR, no murmur Abdomen: Tense Extremities: no edema Skin: No rash. Psych: awake now Neuro: alert and oriented x 3. Moving all extermities - Vital Signs Vital signs: Vital Signs - 12hr 02/26/20 02/26/20 02/26/20 21:30 21:46 22:00 Temperature Pulse Rate 115 H 115 H 115 H Pulse Rate [ From Monitor] Respiratory 24 30 H 31 H Rate Blood Pressure 144/81 144/81 153/71 O2 Sat by Pulse Oximetry 02/26/20 02/26/20 02/26/20 22:03 22:15 22:28 Temperature Pulse Rate 113 H 114 H 114 H Pulse Rate [ From Monitor] Respiratory 32 H 30 H 31 H Rate Blood Pressure 153/71 139/73 139/73 O2 Sat by Pulse 91 Oximetry 02/26/20 02/26/20 02/26/20 22:30 22:46 23:00 Temperature Pulse Rate 116 H 120 H 115 H Pulse Rate [ From Monitor] Respiratory 32 H 28 H 25 H Rate Blood Pressure 143/83 164/84 168/82 O2 Sat by Pulse 90 93 93 Oximetry 02/26/20 02/26/20 02/26/20 23:15 23:30 23:45 Temperature Pulse Rate 114 H 115 H 113 H Pulse Rate [ From Monitor] Respiratory 26 H 32 H 34 H Rate Blood Pressure 160/88 160/86 139/81 O2 Sat by Pulse 92 91 92 Oximetry 02/27/20 02/27/20 02/27/20 00:00 00:15 00:23 Temperature 98.9 F Pulse Rate 118 H 116 H Pulse Rate [ 114 H From Monitor] Respiratory 27 H 25 H 29 H Rate Blood Pressure 143/86 159/83 O2 Sat by Pulse 92 93 92 Oximetry 02/27/20 02/27/20 02/27/20 00:30 00:45 01:00 Temperature Pulse Rate 114 H 115 H 115 H Pulse Rate [ From Monitor] Respiratory 31 H 34 H 33 H Rate Blood Pressure 163/90 165/93 154/86 O2 Sat by Pulse 92 92 92 Oximetry 02/27/20 02/27/20 02/27/20 01:15 01:30 01:45 Temperature Pulse Rate 116 H 114 H 114 H Pulse Rate [ From Monitor] Respiratory 32 H 33 H 29 H Rate Blood Pressure 147/87 170/80 165/79 O2 Sat by Pulse 93 94 92 Oximetry 02/27/20 02/27/20 02/27/20 02:00 02:03 02:15 Temperature Pulse Rate 115 H 115 H Pulse Rate [ From Monitor] Respiratory 26 H 29 H 28 H Rate Blood Pressure 156/86 162/84 O2 Sat by Pulse 94 92 Oximetry 02/27/20 02/27/20 02/27/20 02:30 02:45 03:00 Temperature Pulse Rate 113 H 117 H 121 H Pulse Rate [ From Monitor] Respiratory 33 H 29 H 33 H Rate Blood Pressure 169/90 176/97 176/97 O2 Sat by Pulse 92 90 Oximetry 02/27/20 02/27/20 02/27/20 03:16 03:30 03:45 Temperature Pulse Rate 115 H 119 H 113 H Pulse Rate [ From Monitor] Respiratory 27 H 27 H 29 H Rate Blood Pressure 142/77 161/89 134/73 O2 Sat by Pulse 90 96 91 Oximetry 02/27/20 02/27/20 02/27/20 04:00 04:15 04:30 Temperature 99.1 F Pulse Rate 114 H 115 H 115 H Pulse Rate [ 114 H From Monitor] Respiratory 29 H 34 H 31 H Rate Blood Pressure 134/73 144/88 132/83 O2 Sat by Pulse 91 88 91 Oximetry 02/27/20 02/27/20 02/27/20 04:46 05:00 05:15 Temperature Pulse Rate 119 H 113 H 114 H Pulse Rate [ From Monitor] Respiratory 27 H 29 H 32 H Rate Blood Pressure 144/88 168/87 193/76 O2 Sat by Pulse 93 90 92 Oximetry 02/27/20 02/27/20 02/27/20 05:30 05:45 05:51 Temperature Pulse Rate 114 H 116 H Pulse Rate [ From Monitor] Respiratory 30 H 29 H 28 H Rate Blood Pressure 162/85 172/92 O2 Sat by Pulse 93 93 Oximetry 02/27/20 02/27/20 02/27/20 06:00 06:03 06:16 Temperature Pulse Rate 116 H 120 H Pulse Rate [ From Monitor] Respiratory 28 H 25 H 28 H Rate Blood Pressure 143/77 172/92 O2 Sat by Pulse 92 Oximetry 02/27/20 02/27/20 02/27/20 06:30 06:45 07:00 Temperature Pulse Rate 114 H 115 H 115 H Pulse Rate [ From Monitor] Respiratory 26 H 28 H 28 H Rate Blood Pressure 175/86 166/88 158/91 O2 Sat by Pulse 90 93 92 Oximetry 02/27/20 02/27/20 02/27/20 07:15 07:30 07:45 Temperature Pulse Rate 116 H 116 H 117 H Pulse Rate [ From Monitor] Respiratory 29 H 26 H 32 H Rate Blood Pressure 165/99 168/101 193/97 O2 Sat by Pulse 93 93 Oximetry 02/27/20 02/27/20 02/27/20 07:47 08:00 08:15 Temperature 98.4 F Pulse Rate 117 H 119 H Pulse Rate [ From Monitor] Respiratory 17 26 H Rate Blood Pressure 169/93 179/89 O2 Sat by Pulse 94 95 Oximetry 02/27/20 02/27/20 02/27/20 08:30 08:44 08:48 Temperature Pulse Rate 117 H Pulse Rate [ From Monitor] Respiratory 28 H 26 H Rate Blood Pressure 177/90 O2 Sat by Pulse 91 93 Oximetry - Lab 02/27/20 04:18 02/27/20 04:18 Most recent lab results Calcium 7.4 mg/dL (8.4-10.2) L 02/27/20 04:18 Calcium 7.5 mg/dL (8.4-10.2) L 02/27/20 04:18 Phosphorus 2.50 mg/dL (2.5-4.5) 02/26/20 04:39 Magnesium 1.80 mg/dL (1.7-2.3) 02/26/20 04:39 Urine Creatinine 161.0 mg/dL (0.1-20.0) H 02/25/20 22:55 Urine Total Protein 150 mg/dL (5-11.8) H 02/25/20 22:55 Medications & Allergies - Medications Allergies/Adverse Reactions: Allergies No Known Allergies Allergy (Unverified 09/05/19 10:15) Home Medications: Home Medications Medication Instructions Recorded Confirmed Last Taken Type Amlodipine Besylate [Norvasc] 10 mg PO DAILY 09/05/19 02/24/20 09/04/19 History Furosemide [Lasix] 20 mg PO QDAY #30 tablet 09/05/19 02/24/20 Unknown Rx Lisinopril [Zestril] 5 mg PO DAILY #30 tablet 09/05/19 02/24/20 Unknown Rx Metoprolol [Lopressor TAB] 25 mg PO BID #60 tablet 09/05/19 02/24/20 Unknown Rx Active Medications: Generic Name Dose Route Start Last Admin Trade Name Freq PRN Reason Stop Dose Admin Acetaminophen 650 mg 02/26/20 16:23 02/26/20 16:37 Tylenol PO 650 mg Q4H PRN Administration Pain, Mild (1-3)/ Temp >100. Heparin Sodium (Porcine) 5,000 unit 02/24/20 14:00 02/27/20 05:48 Heparin SUB-Q 5,000 unit Q8HR INDU Administration Hydromorphone/Sodium Chloride 0 mg 02/26/20 10:00 02/27/20 00:03 Dilaudid Checkering Machine Operator 6mg/30ml IV 6 mg DIRECT INDU Administration Protocol Nicardipine HCl 50 mg/ Sodium 250 mls @ 25 mls/hr 02/24/20 07:00 02/27/20 06:43 Chloride IV 5 mg/hr TITR INDU 25 mls/hr Administration Protocol 5 MG/HR Piperacillin Sod/Tazobactam Sod 2.25 gm in 50 mls @ 100 mls/hr 02/26/20 18:30 02/27/20 02:09 Zosyn/Ns 2.25 Gm/50ml IV 100 mls/hr Q8H INDU Administration Protocol Ondansetron HCl 4 mg 02/24/20 06:45 02/25/20 23:33 Zofran IV 4 mg Q8H PRN Administration Nausea And Vomiting Pantoprazole Sodium 40 mg 02/24/20 13:00 02/26/20 09:22 Protonix IV 40 mg QDAY INDU Administration Sodium Chloride 10 ml 02/24/20 10:00 02/26/20 21:56 Sodium Chloride Flush Syringe 10 Ml IV 10 ml BID INDU Administration Sodium Chloride 10 ml 02/24/20 06:45 Sodium Chloride Flush Syringe 10 Ml IV PRN PRN LINE FLUSH
[2020-02-27] MEDS: PANTOPRAZOLE 40 MG INJ IV SCH (09:49)
--- NOTE | 2020-02-27 10:10 | Progress Note ---
Assessment and Plan Assessment and plan: Pending MRCP study -- Acute pancreatitis Current Visit: Yes Status: Acute Plan to address problem: Mild improvement of symptoms Lipase trending down Lipase [phone] Continue n.p.o. status, IV Protonix IV fluid and IV pain medication. GI following, possible MRCP Ice chips as needed -- Hypertensive emergency Current Visit: Yes Status: Acute Plan to address problem: Continue Cardene drip, will hold oral antihypertensives Due to worsening pancreatitis with symptoms IV antihypertensives, Closely monitor --Medical noncompliance with diet and medication regimen Current Visit: Yes Status: Acute Plan to address problem: Counseling done, strongly advised to adhere To the medications, diet, follow-up visits Patient verbalized understanding -- DVT prophylaxis Current Visit: Yes Status: Acute Plan to address problem: Patient placed on subcutaneous heparin. --Obesity; BMI 37.9 patient needs weight reduction when medically stable -- Full code status Current Visit: Yes Status: Acute Follow GI and pulmonary evaluation and recommendations We will closely monitor the patient and adjust the management as needed Plan of care reviewed with the patient and her nurse Closely monitor the patient and adjust management as needed I called patient's daughter at [phone] Ms. Jewell and discussed with her patient's condition treatment plan Answered all her questions The high probability of a clinically significant, sudden or life threatening deterioration of the [GI, CVS, metabolic] system(s) required my full and direct attention, intervention and personal management. The aggregate critical care time was [32] minutes. This time is in addition to time spent performing reported procedures but includes the following: [x] Data Review and interpretation [x] Patient assessment and monitoring of vital signs [x] Documentation [x] Medication orders and management History Interval history: I have seen and examined the patient at the bedside Patient feels slightly better lipase levels significantly improved On Cardene drip, RE[employer] LEAD pump Scheduled for MRCP today Vital signs reviewed Hospitalist Physical - Constitutional Vitals: Temp Pulse Resp BP Pulse Ox 98.4 F 117 H 26 H 177/90 93 02/27/20 07:47 02/27/20 08:30 02/27/20 08:44 02/27/20 08:30 02/27/20 08:48 General appearance: Present: mild distress, well-nourished, obese - EENT Eyes: Present: PERRL, EOM intact - Neck Neck: Present: supple, normal ROM - Respiratory Respiratory effort: normal Respiratory: bilateral: diminished, rhonchi, negative: rales, wheezing - Cardiovascular Rhythm: regular Heart Sounds: Present: S1 & S2 - Extremities Extremities: no ischemia, No edema - Abdominal General gastrointestinal: soft, tender (No guarding no rigidity), non-distended, normal bowel sounds - Integumentary Integumentary: Present: clear, warm - Psychiatric Psychiatric: appropriate mood/affect, cooperative - Neurologic Neurologic: moves all extremities Results - Labs CBC & Chem 7: 02/27/20 04:18 02/28/20 05:07 Labs: Laboratory Last Values WBC 26.8 K/mm3 (4.5-11.0) H 02/27/20 04:18 RBC 3.76 M/mm3 (3.65-5.03) 02/27/20 04:18 Hgb 7.9 gm/dl (10.1-14.3) L 02/27/20 04:18 Hct 26.3 % (30.3-42.9) L 02/27/20 04:18 MCV 70 fl (79-97) L 02/27/20 04:18 MCH 21 pg (28-32) L 02/27/20 04:18 MCHC 30 % (30-34) 02/27/20 04:18 RDW 18.0 % (13.2-15.2) H 02/27/20 04:18 Plt Count 513 K/mm3 (140-440) H 02/27/20 04:18 Lymph % (Auto) 3.4 % (13.4-35.0) L 02/25/20 03:49 [place] % (Auto) 5.5 % (0.0-7.3) 02/25/20 03:49 Eos % (Auto) 0.1 % (0.0-4.3) 02/25/20 03:49 Baso % (Auto) 0.2 % (0.0-1.8) 02/25/20 03:49 Lymph # 1.0 K/mm3 (1.2-5.4) L 02/25/20 03:49 [place] # 1.0 K/mm3 (0.0-0.8) H 02/25/20 03:49 Eos # 0.0 K/mm3 (0.0-0.4) 02/25/20 03:49 Baso # 0.1 K/mm3 (0.0-0.1) 02/25/20 03:49 Seg Neutrophils % Information Assoc 02/25/20 03:49 Seg Neutrophils # 26.4 K/mm3 (1.8-7.7) H 02/25/20 03:49 PT 13.7 Sec. (12.2-14.9) 02/25/20 03:49 INR 1.03 (0.87-1.13) 02/25/20 03:49 Sodium 135 mmol/L (137-145) L 02/27/20 04:18 Sodium 135 mmol/L (137-145) L 02/27/20 04:18 Potassium 4.2 mmol/L (3.6-5.0) 02/27/20 04:18 Potassium 4.3 mmol/L (3.6-5.0) 02/27/20 04:18 Chloride 100.8 mmol/L (98-107) 02/27/20 04:18 Chloride 101.5 mmol/L (98-107) 02/27/20 04:18 Carbon Dioxide 15 mmol/L (22-30) L 02/27/20 04:18 Carbon Dioxide 16 mmol/L (22-30) L 02/27/20 04:18 Anion Gap 22 mmol/L 02/27/20 04:18 Anion Gap 23 mmol/L 02/27/20 04:18 BUN 50 mg/dL (7-17) H 02/27/20 04:18 BUN 51 mg/dL (7-17) H 02/27/20 04:18 Creatinine 3.4 mg/dL (0.6-1.2) H 02/27/20 04:18 Creatinine 3.4 mg/dL (0.6-1.2) H 02/27/20 04:18 Estimated GFR 18 ml/min 02/27/20 04:18 Estimated GFR 18 ml/min 02/27/20 04:18 BUN/Creatinine Ratio 15 % 02/27/20 04:18 BUN/Creatinine Ratio 15 % 02/27/20 04:18 Glucose 91 mg/dL (65-100) 02/27/20 04:18 Glucose 91 mg/dL (65-100) 02/27/20 04:18 POC Glucose 92 (70-105) 02/27/20 05:58 Calcium 7.4 mg/dL (8.4-10.2) L 02/27/20 04:18 Calcium 7.5 mg/dL (8.4-10.2) L 02/27/20 04:18 Phosphorus 2.50 mg/dL (2.5-4.5) 02/26/20 04:39 Magnesium 1.80 mg/dL (1.7-2.3) 02/26/20 04:39 Total Bilirubin 0.70 mg/dL (0.1-1.2) 02/27/20 04:18 AST 22 units/L (5-40) 02/27/20 04:18 ALT 9 units/L (7-56) 02/27/20 04:18 Alkaline Phosphatase 102 units/L (35-129) 02/27/20 04:18 C-Reactive Protein 37.30 mg/dL (0.00-1.30) H 02/27/20 04:18 Total Protein 6.9 g/dL (6.3-8.2) 02/27/20 04:18 Albumin 3.0 g/dL (3.9-5) L 02/27/20 04:18 Albumin/Globulin Ratio 0.8 % 02/27/20 04:18 Triglycerides 118 mg/dL (2-149) 02/26/20 04:39 Lipase 177 units/L (13-60) H 02/27/20 04:18 HCG, Qual Negative (Negative) 02/24/20 02:53 PTH Intact 911.3 pg/mL (15-65) H 02/26/20 08:15 Urine Color Yellow (Yellow) 02/24/20 Unknown Urine Turbidity Clear (Clear) 02/24/20 Unknown Urine pH 6.0 (5.0-7.0) 02/24/20 Unknown Ur Specific [place] 1.020 (1.003-1.030) 02/24/20 Unknown Urine Protein >500 mg/dL (Negative) 02/24/20 Unknown Urine Glucose (UA) 50 mg/dL (Negative) 02/24/20 Unknown Urine Ketones Neg mg/dL (Negative) 02/24/20 Unknown Urine Blood Lg (Negative) 02/24/20 Unknown Urine Nitrite Neg (Negative) 02/24/20 Unknown Urine Bilirubin Neg (Negative) 02/24/20 Unknown Urine Urobilinogen < 2.0 mg/dL (<2.0) 02/24/20 Unknown Ur Leukocyte Esterase Neg (Negative) 02/24/20 Unknown Urine WBC (Auto) 11.0 /HPF (0.0-6.0) H 02/24/20 Unknown Urine RBC (Auto) 149.0 /HPF (0.0-6.0) 02/24/20 Unknown U Epithel Cells (Auto) 5.0 /HPF (0-13.0) 02/24/20 Unknown Urine Bacteria (Auto) 1+ /HPF (Negative) 02/24/20 Unknown Urine Mucus Few /HPF 02/24/20 Unknown Urine Creatinine 161.0 mg/dL (0.1-20.0) H 02/25/20 22:55 Protein/Creatinin Ratio 0.93 02/25/20 22:55 Urine Total Protein 150 mg/dL (5-11.8) H 02/25/20 22:55 Microbiology: Microbiology 02/26/20 18:56 Peripheral/Venous Blood Culture - Preliminary Culture in Progress 02/26/20 18:56 Peripheral/Venous Blood Culture - Preliminary Culture in Progress 02/24/20 Unknown Urine,Clean Catch Urine Culture - Final - Diagnostic Impressions Diagnostic Impressions: Echocardiogram 02/26/20 09:11 Transthoracic Echocardiogram Indication: Cardiomegaly BP: 149/92 HR: 122 Conclusions *Global left ventricular systolic function is normal. *The estimated ejection fraction is 60-65%. *Moderate to severe concentric left ventricular hypertrophy is observed. *The left atrium is mild to moderately dilated. *The aortic valve leaflets are moderately thickened. *A mean gradient of 22.39 mmHg across the outflow tract is likely not due to but hyperdynamic flow and LVH. *There is trace tricuspid regurgitation. Findings Left Ventricle: The left ventricular chamber size is normal. Moderate to severe concentric left ventricular hypertrophy is observed. Global left ventricular systolic function is normal. The estimated ejection fraction is 60-65%. Left Atrium: The left atrium is mild to moderately dilated. Right Ventricle: The right ventricular cavity size is normal. The right ventricular global systolic function is normal. Right Atrium: The right atrial cavity size is normal. Aortic Valve: The aortic valve leaflets are moderately thickened. There is no evidence of aortic regurgitation. The mean gradient of the aortic valve is 22.39 mmHg. Mitral Valve: The mitral valve leaflets are mildly thickened. There is trace of mitral regurgitation. There is no evidence of mitral stenosis. Tricuspid Valve: There is trace tricuspid regurgitation. No pulmonary hypertension is noted. Pulmonic Valve: There is trace pulmonic regurgitation. Pericardium: There is no pericardial effusion. Aorta: There is no dilatation of the ascending aorta. There is no dilatation of the aortic root. Venous: The inferior vena cava appears normal in size. Measurements Chambers 2D Name Value Normal Range IVSd (2D) 1.8 cm (0.6 - 1.1) LVPWd (2D) 1.74 cm (0.6 - 1.1) LVIDd (2D) 4.57 cm (3.7 - 5.6) LVIDs (2D) 2.73 cm (2 - 3.8) LV FS (2D) 40.27 % - EF Teichholz (2D) 71.04 % - Ao root diameter (2D) 2.79 cm (2 - 3.7) Volumes/Mass Name Value Normal Range LA ESV SP 4CH (A/L) 54.18 ml - LA ESV SP 2CH (A/L) 61.84 ml - LA ESV BP (A/L) 58.1 ml - LA ESV BP (A/L) index 30.74 ml/m2 - LA ESV SP 4CH (MOD) 52.89 ml - LA ESV SP 2CH (MOD) 60.65 ml - LA ESV BP (MOD) 56.77 ml - LA ESV BP (MOD) index 30.04 ml/m2 - LV EDV SP 4CH (MOD) 164.2 ml - LV ESV SP 4CH (MOD) 58.04 ml - EF SP 4CH (MOD) 64.65 % - Diastolic/Systolic Function Name Value Normal Range MV E-wave Vmax 1.38 m/sec - MV deceleration time 92.78 msec - MV A-wave Vmax 1.44 m/sec - MV E:A ratio 0.95 ratio - Aortic Valve Name Value Normal Range AV Vmax 3.08 m/sec - AV VTI 36.74 cm - AV peak gradient 37.98 mmHg - AV mean gradient 22.39 mmHg - LVOT diameter 2.01 cm - LVOT Vmax 2.45 m/sec - LVOT VTI 29.85 cm - LVOT peak gradient 24.04 mmHg - LVOT mean gradient 11.11 mmHg - SV LVOT 94.73 ml - JADA (continuity Vmax) 2.52 cm2 - JADA (continuity VTI) 2.58 cm2 - Ascending Ao 2.64 cm - Mitral Valve Name Value Normal Range MV PHT 37.88 msec - MVA (PHT) 5.81 cm2 - Tricuspid Valve Name Value Normal Range IVC diameter 1.93 cm (1.2 - 2.3) Pulmonic Valve/Qp:Qs Name Value Normal Range PV Vmax 2.83 m/sec - PV VTI 45.88 cm - PV peak gradient 32.06 mmHg - PV mean gradient 16.11 mmHg - HI end-diastolic Vmax 0.81 m/sec - RVOT Vmax 1.82 m/sec - RVOT VTI 25.12 cm - RVOT peak gradient 13.3 mmHg - Franks/IV: Voiding Method Toilet IV Catheter Type [Right Wrist] Peripheral IV IV Catheter Type [Right Peripheral IV Antecubital] Active Medications - Current Medications Current Medications: Generic Name Dose Route Start Last Admin Trade Name Freq PRN Reason Stop Dose Admin Acetaminophen 650 mg 02/26/20 16:23 02/26/20 16:37 Tylenol PO 650 mg Q4H PRN Administration Pain, Mild (1-3)/ Temp >100. Heparin Sodium (Porcine) 5,000 unit 02/24/20 14:00 02/27/20 05:48 Heparin SUB-Q 5,000 unit Q8HR INDU Administration Hydromorphone/Sodium Chloride 0 mg 02/26/20 10:00 02/27/20 09:35 Dilaudid Drapery Cutter Machine 6mg/30ml IV 1 cartstart DIRECT INDU Administration Protocol Nicardipine HCl 50 mg/ Sodium 250 mls @ 25 mls/hr 02/24/20 07:00 02/27/20 06:43 Chloride IV 5 mg/hr TITR INDU 25 mls/hr Administration Protocol 5 MG/HR Piperacillin Sod/Tazobactam Sod 2.25 gm in 50 mls @ 100 mls/hr 02/26/20 18:30 02/27/20 09:49 Zosyn/Ns 2.25 Gm/50ml IV 100 mls/hr Q8H INDU Administration Protocol Ondansetron HCl 4 mg 02/24/20 06:45 02/25/20 23:33 Zofran IV 4 mg Q8H PRN Administration Nausea And Vomiting Pantoprazole Sodium 40 mg 02/24/20 13:00 02/27/20 09:49 Protonix IV 40 mg QDAY INDU Administration Sodium Chloride 10 ml 02/24/20 10:00 02/26/20 21:56 Sodium Chloride Flush Syringe 10 Ml IV 10 ml BID INDU Administration Sodium Chloride 10 ml 02/24/20 06:45 Sodium Chloride Flush Syringe 10 Ml IV PRN PRN LINE FLUSH Nutrition/Malnutrition Assess - Dietary Evaluation Nutrition/Malnutrition Findings: Nutrition Notes Start: 02/24/20 13:42 Freq: Status: Active Protocol: Document 02/26/20 11:43 AMADEO (Rec: 02/26/20 11:56 [email or web address] [id number]) Co-Sign 02/26/20 11:43 LP Nutrition Notes Initial or Follow up Reassessment Current Diagnosis Acute Kidney Injury, Hypertension,Hyperlipidemia Other Pertinent Diagnosis Acute pancreatitis Current Diet NPO Labs/Tests Co2 19 BUN 44 Cr 3.1 Lipase 540 Pertinent Medications NS at 125 ml/hr Height 5 ft 1 in Weight 91 kg [place] Body Weight (kg) 47.72 BMI 37.9 Weight Status Obese Subjective/Other Information FU for diet advancement. Per MD being advanced to clear liq . Percent of energy/protein needs met: 0%/0% Burn Absent Trauma Absent GI Symptoms None Current % PO Negligible Minimum of two criteria No Fluid Accumulation Moderate to Severe (severe) #2 Nutrition Diagnosis Inadequate oral intake As Evidenced by Signs and Symptoms NPO Diagnosis Progress(for reassessment Continues documentation) #1 Nutrition Diagnosis Food and nutrition-related knowledge deficit Diagnosis Progress(for reassessment Continues documentation) Is patient on ventilator? No Is Patient Ambulatory and/or Out of Bed Yes REE-([place]-St. Jeor-ambulatory/OOB) [ 1972.594 [id number]] Kcal/Kg value to use for calculation 16 Approximate Energy Requirements Using 1456 kcal/Kg Additional Notes Pro: 55-82.8 (0.8-1.2g/kg AdjBW 69kg) Fluid: 1ml/kcal Nutrition Intervention Goal #1 Meet energy and protein needs as best as possible via PO intakes Anticipated Discharge Needs: Undetermined at this time Follow-Up By: 02/28/20 Additional Comments FU for diet advancement, tolerance to cl liq
[2020-02-27] MEDS ORDERED: LORazepam 2 MG/ML VIAL IV NR (11:15)
--- NOTE | 2020-02-27 12:35 | Progress Note ---
Assessment and Plan Hypertensive urgency Morbid obesity Acute pancreatitis, abdominal pain Medical non compliance - get CXR and address re: increased work of breathing - advance diet per Surgeon - follow repeat CT abd/pelvis - follow MRCP - continue Zosyn; de-escalate per ID rec's - continue Nicardipine for her blood pressure management till taking orally (target BP < 160 mmHg) - JUANIS per car shunter - Repeat CTabdomen and pelvis with oral contrast, no IV contrast to re-image the pancreas - Supplemental oxygen as needed to keep O2 sats > 90% - Evaluation for sleep apnea as an outpatient - VTE prophylaxis - prn Analgesia per pain score - Stress ulcer prophylaxis in view of acute pancreatitis - Life style modification, and counselling on the need for medical compliance - IV hydration - tobacco abstinence counseled - continue opther care per attending / other consultants - tentatively transfer to [facility] in am if no overnight setbacks ..... re-evaluate in am & prn CONDITION: CRITICAL PROGNOSIS: GUARDED CODE STATUS: FULL CODE The high probability of a clinically significant, sudden or life-threatening deterioration of the [respiratory, cardiovascular & GI] system(s) required my full and direct attention, intervention and personal management. The aggregate critical care time was [34] minutes without overlap. Time includes spent on; [x] Data Review and interpretation [x] Patient assessment and monitoring of vital signs [x] Documentation [x] Medication orders and management Subjective Date of service: 02/27/20 Principal diagnosis: HTNsive urgency; Morbid obesity; Ac. pancreatitis; Abdominal pain Interval history: Patient is seen today for: Hypertensive urgency; Morbid obesity; Acute pancreatitis; abdominal pain; Medical non compliance Seen and examined at bedside; 24hour events reviewed; nursing and respiratory care staff consulted; no adverse overnight events reported to me; resting peacefully in bed; remains SOB with tachypnea and orthopnea; denies chest pain; tolerated liquid diet; still with abdominal pain but better; NO emesis or overt aspiration; afebrile Objective Vital Signs - 12hr 02/27/20 02/27/20 02/27/20 00:45 01:00 01:15 Temperature Pulse Rate 115 H 115 H 116 H Pulse Rate [ From Monitor] Respiratory 34 H 33 H 32 H Rate Blood Pressure 165/93 154/86 147/87 O2 Sat by Pulse 92 92 93 Oximetry 02/27/20 02/27/20 02/27/20 01:30 01:45 02:00 Temperature Pulse Rate 114 H 114 H 115 H Pulse Rate [ From Monitor] Respiratory 33 H 29 H 26 H Rate Blood Pressure 170/80 165/79 156/86 O2 Sat by Pulse 94 92 94 Oximetry 02/27/20 02/27/20 02/27/20 02:03 02:15 02:30 Temperature Pulse Rate 115 H 113 H Pulse Rate [ From Monitor] Respiratory 29 H 28 H 33 H Rate Blood Pressure 162/84 169/90 O2 Sat by Pulse 92 92 Oximetry 02/27/20 02/27/20 02/27/20 02:45 03:00 03:16 Temperature Pulse Rate 117 H 121 H 115 H Pulse Rate [ From Monitor] Respiratory 29 H 33 H 27 H Rate Blood Pressure 176/97 176/97 142/77 O2 Sat by Pulse 90 90 Oximetry 02/27/20 02/27/20 02/27/20 03:30 03:45 04:00 Temperature 99.1 F Pulse Rate 119 H 113 H 114 H Pulse Rate [ 114 H From Monitor] Respiratory 27 H 29 H 29 H Rate Blood Pressure 161/89 134/73 134/73 O2 Sat by Pulse 96 91 91 Oximetry 02/27/20 02/27/20 02/27/20 04:15 04:30 04:46 Temperature Pulse Rate 115 H 115 H 119 H Pulse Rate [ From Monitor] Respiratory 34 H 31 H 27 H Rate Blood Pressure 144/88 132/83 144/88 O2 Sat by Pulse 88 91 93 Oximetry 02/27/20 02/27/20 02/27/20 05:00 05:15 05:30 Temperature Pulse Rate 113 H 114 H 114 H Pulse Rate [ From Monitor] Respiratory 29 H 32 H 30 H Rate Blood Pressure 168/87 193/76 162/85 O2 Sat by Pulse 90 92 93 Oximetry 02/27/20 02/27/20 02/27/20 05:45 05:51 06:00 Temperature Pulse Rate 116 H 116 H Pulse Rate [ From Monitor] Respiratory 29 H 28 H 28 H Rate Blood Pressure 172/92 143/77 O2 Sat by Pulse 93 92 Oximetry 02/27/20 02/27/20 02/27/20 06:03 06:16 06:30 Temperature Pulse Rate 120 H 114 H Pulse Rate [ From Monitor] Respiratory 25 H 28 H 26 H Rate Blood Pressure 172/92 175/86 O2 Sat by Pulse 90 Oximetry 02/27/20 02/27/20 02/27/20 06:45 07:00 07:15 Temperature Pulse Rate 115 H 115 H 116 H Pulse Rate [ From Monitor] Respiratory 28 H 28 H 29 H Rate Blood Pressure 166/88 158/91 165/99 O2 Sat by Pulse 93 92 Oximetry 02/27/20 02/27/20 02/27/20 07:30 07:45 07:47 Temperature 98.4 F Pulse Rate 116 H 117 H Pulse Rate [ From Monitor] Respiratory 26 H 32 H Rate Blood Pressure 168/101 193/97 O2 Sat by Pulse 93 93 Oximetry 02/27/20 02/27/20 02/27/20 08:00 08:15 08:30 Temperature Pulse Rate 115 H 119 H 117 H Pulse Rate [ From Monitor] Respiratory 17 26 H 28 H Rate Blood Pressure 169/93 179/89 177/90 O2 Sat by Pulse 94 95 91 Oximetry 02/27/20 02/27/20 02/27/20 08:44 08:46 08:48 Temperature Pulse Rate 116 H Pulse Rate [ From Monitor] Respiratory 26 H 27 H Rate Blood Pressure 162/86 O2 Sat by Pulse 92 93 Oximetry 02/27/20 02/27/20 02/27/20 09:00 09:15 09:30 Temperature Pulse Rate 117 H 118 H 120 H Pulse Rate [ From Monitor] Respiratory 31 H 26 H 17 Rate Blood Pressure 169/79 175/94 162/86 O2 Sat by Pulse 94 94 Oximetry 02/27/20 02/27/20 02/27/20 09:46 10:00 10:15 Temperature Pulse Rate 117 H 117 H 115 H Pulse Rate [ From Monitor] Respiratory 23 26 H 32 H Rate Blood Pressure 162/86 175/94 133/108 O2 Sat by Pulse 95 88 Oximetry 02/27/20 02/27/20 02/27/20 10:30 10:45 10:58 Temperature Pulse Rate 117 H 114 H Pulse Rate [ From Monitor] Respiratory 25 H 35 H 28 H Rate Blood Pressure 142/110 155/83 O2 Sat by Pulse 94 90 Oximetry 02/27/20 02/27/20 11:00 11:15 Temperature Pulse Rate 117 H 115 H Pulse Rate [ From Monitor] Respiratory 28 H 26 H Rate Blood Pressure 156/84 179/80 O2 Sat by Pulse 93 94 Oximetry Constitutional: appears uncomfortable, other (Obese female with increased respiratory effort at rest) Eyes: non-icteric ENT: oropharynx moist Neck: supple, no lymphadenopathy, no JVD Effort: normal Ascultation: Bilateral: diminished breath sounds (at the bases), rales (bases) Percussion: Bilateral: not dull Cardiovascular: regular rate and rhythm, other (S1,S2) Gastrointestinal: normoactive bowel sounds, soft, tender (epigastrium), non- distended Integumentary: normal Extremities: no cyanosis, no edema, pulses normal, no ischemia or petechiae Neurologic: normal mental status, non-focal exam, pupils equal and round, CN II- XII normal, motor strength normal and Psychiatric: mood appropriate, anxious CBC and BMP: 02/27/20 04:18 02/27/20 04:18 ABG, PT/INR, D-dimer: PT/INR, D-dimer PT 13.7 Sec. (12.2-14.9) 02/25/20 03:49 INR 1.03 (0.87-1.13) 02/25/20 03:49 Abnormal lab findings: Abnormal Labs 02/24/20 02/24/20 02/24/20 02:53 02:53 Unknown WBC 12.7 H Hgb 10.0 L Hct MCV 70 L MCH 22 L RDW 17.9 H Plt Count 458 H Lymph % (Auto) 8.9 L Lymph # 1.1 L [place] # Seg Neutrophils % 84.2 H Seg Neutrophils # 10.7 H Sodium Chloride Carbon Dioxide BUN 27 H Creatinine 1.7 H Glucose 118 H POC Glucose Calcium Albumin C-Reactive Protein Lipase 232 H PTH Intact Urine WBC (Auto) 11.0 H Urine Creatinine Urine Total Protein 02/25/20 02/25/20 02/25/20 00:03 03:49 03:49 WBC 29.1 H Hgb 9.4 L Hct 30.2 L MCV 71 L MCH 22 L RDW 18.3 H Plt Count 525 H Lymph % (Auto) 3.4 L Lymph # 1.0 L [place] # 1.0 H Seg Neutrophils % Seg Neutrophils # 26.4 H Sodium Chloride Carbon Dioxide BUN Creatinine Glucose POC Glucose 126 H Calcium Albumin C-Reactive Protein Lipase 1486 H PTH Intact Urine WBC (Auto) Urine Creatinine Urine Total Protein 02/25/20 02/25/20 02/25/20 03:49 05:55 22:55 WBC Hgb Hct MCV MCH RDW Plt Count Lymph % (Auto) Lymph # [place] # Seg Neutrophils % Seg Neutrophils # Sodium 136 L Chloride 97.9 L Carbon Dioxide 21 L BUN 39 H Creatinine 3.0 H D Glucose 118 H POC Glucose 124 H Calcium Albumin 3.6 L C-Reactive Protein Lipase PTH Intact Urine WBC (Auto) Urine Creatinine 161.0 H Urine Total Protein 150 H 02/26/20 02/26/20 02/26/20 04:39 04:39 08:15 WBC 30.3 H Hgb 9.1 L Hct 29.8 L MCV 71 L MCH 22 L RDW 18.2 H Plt Count 530 H Lymph % (Auto) Lymph # [place] # Seg Neutrophils % Seg Neutrophils # Sodium Chloride Carbon Dioxide 19 L BUN 44 H Creatinine 3.1 H Glucose 106 H POC Glucose Calcium 8.1 L Albumin C-Reactive Protein Lipase 540 H PTH Intact 911.3 H Urine WBC (Auto) Urine Creatinine Urine Total Protein 02/26/20 02/27/20 02/27/20 12:14 04:18 04:18 WBC 26.8 H Hgb 7.9 L Hct 26.3 L MCV 70 L MCH 21 L RDW 18.0 H Plt Count 513 H Lymph % (Auto) Lymph # [place] # Seg Neutrophils % Seg Neutrophils # Sodium 135 L Chloride Carbon Dioxide 15 L BUN 50 H Creatinine 3.4 H Glucose POC Glucose 112 H Calcium 7.4 L Albumin C-Reactive Protein Lipase PTH Intact Urine WBC (Auto) Urine Creatinine Urine Total Protein 02/27/20 04:18 WBC Hgb Hct MCV MCH RDW Plt Count Lymph % (Auto) Lymph # [place] # Seg Neutrophils % Seg Neutrophils # Sodium 135 L Chloride Carbon Dioxide 16 L BUN 51 H Creatinine 3.4 H Glucose POC Glucose Calcium 7.5 L Albumin 3.0 L C-Reactive Protein 37.30 H Lipase 177 H PTH Intact Urine WBC (Auto) Urine Creatinine Urine Total Protein Chest x-ray: pending Allied health notes reviewed: nursing
[2020-02-27] MEDS ORDERED: LORazepam 2 MG/ML VIAL IV ONE ×2 (12:45→22:47)
--- NOTE | 2020-02-27 15:16 | XRay Report ---
CHEST 1 VIEW INDICATION / CLINICAL INFORMATION: Pneumonia. COMPARISON: 02/25/2020 FINDINGS: SUPPORT DEVICES: None. HEART / MEDIASTINUM: No significant abnormality. LUNGS / PLEURA: There is increased density in the retrocardiac region of the left suggesting airspace opacity. No pneumothorax. ADDITIONAL FINDINGS: No significant additional findings. IMPRESSION: 1. There appears to be mild airspace opacity in the left lung base which could represent atelectasis or evolving pneumonia Signer Name: Femi Mosquera MD Signed: 02/27/2020 3:12 PM Workstation Name: [id number][id number]
--- NOTE | 2020-02-27 15:43 | Gastroenterology Progress Note ---
Assessment and Plan - Patient Problems (1) Acute pancreatitis Current Visit: Yes Status: Acute Plan to address problem: - Possible passed gallstone, but LFTs WNL, no stones on US, and the CBD is normal in size; no indication for ERCP at present. Does have a hx of EtOH, but minimal per patient. - Will recheck labs tomorrow, and get MRCP when patient can tolerate; with normal LFTs I doubt small calcification seen on CT in region of pancreas head is a stone in the CBD or PD (no upstream dilation). - If ERCP needed, will need improved BP control. Continue nifedipine gtt. - Patient should avoid NSAIDs and EtOH; I started protonix but doubt penetrating PUD in absence of free air. (2) Dyspnea Current Visit: Yes Status: Acute Plan to address problem: - Cxray ordered by Pulmonary and pending. Suspect fluid overload as well as NIDIA from obesity and ileus with abdominal distention. - Will defer to Pulmonary. Subjective Date of service: 02/27/20 Principal diagnosis: Pancreatitis Interval history: The patient is more SOB today, but had no N/V with clear liquids. She says her abdominal pain is better, but she was unable to lay flat for the MRCP due to SOB . She feels more "swollen" today, and is retaining gross fluid. Objective - Constitutional Vitals: Temp Pulse Resp BP Pulse Ox 98.4 F 117 H 38 H 164/91 96 02/27/20 07:47 02/27/20 15:00 02/27/20 15:00 02/27/20 15:00 02/27/20 15:00 General appearance: mild distress - EENT Eyes: PERRL, EOM intact - Respiratory Respiratory effort: labored Respiratory: bilateral: rales - Cardiovascular Heart Rate: 115 Rhythm: regular Heart Sounds: Present: S1 & S2 - Gastrointestinal General gastrointestinal: Present: soft, non-tender, distended (Scant bowel sounds) - Labs CBC & Chem 7: 02/27/20 04:18 02/27/20 04:18 Labs: Laboratory Results - last 24 hr 02/26/20 02/26/20 02/27/20 17:32 23:58 04:18 WBC RBC Hgb Hct MCV MCH MCHC RDW Plt Count Sodium 135 L Potassium 4.3 Chloride 101.5 Carbon Dioxide 15 L Anion Gap 23 BUN 50 H Creatinine 3.4 H Estimated GFR 18 BUN/Creatinine Ratio 15 Glucose 91 POC Glucose 95 104 Calcium 7.4 L Total Bilirubin AST ALT Alkaline Phosphatase C-Reactive Protein Total Protein Albumin Albumin/Globulin Ratio Lipase 02/27/20 02/27/20 02/27/20 04:18 04:18 05:58 WBC 26.8 H RBC 3.76 Hgb 7.9 L Hct 26.3 L MCV 70 L MCH 21 L MCHC 30 RDW 18.0 H Plt Count 513 H Sodium 135 L Potassium 4.2 Chloride 100.8 Carbon Dioxide 16 L Anion Gap 22 BUN 51 H Creatinine 3.4 H Estimated GFR 18 BUN/Creatinine Ratio 15 Glucose 91 POC Glucose 92 Calcium 7.5 L Total Bilirubin 0.70 AST 22 ALT 9 Alkaline Phosphatase 102 C-Reactive Protein 37.30 H Total Protein 6.9 Albumin 3.0 L Albumin/Globulin Ratio 0.8 Lipase 177 H 02/27/20 14:00 WBC RBC Hgb Hct MCV MCH MCHC RDW Plt Count Sodium Potassium Chloride Carbon Dioxide Anion Gap BUN Creatinine Estimated GFR BUN/Creatinine Ratio Glucose POC Glucose 104 Calcium Total Bilirubin AST ALT Alkaline Phosphatase C-Reactive Protein Total Protein Albumin Albumin/Globulin Ratio Lipase
[2020-02-27 17:12] LABS: ABG Base Excess -8.4 mmol/L (-2.0-3.0); ABG HCO3 16.4 mmol/L (20.0-26.0); ABG Methemoglobin 0.6 % (0.0-1.5); ABG Oxygen Saturation 88.2 % (95.0-99.0); ABG PCO2 31.3 mm Hg; ABG PH 7.336 pH Units (7.350-7.450)
[2020-02-27] MEDS ORDERED: ALBUTEROL 2.5 MG/3 ML NEBU IH PRN (17:55)
[2020-02-27] MEDS: ALBUTEROL 2.5 MG/3 ML NEBU IH SCH (20:55)
[2020-02-28] MEDS: PIPERACIL-TAZO 2.25 GM/50 ML 2.25 GM/50 ML BAG IV SCH ×5 (03:00→18:47)
[2020-02-28] MEDS ORDERED: ZIPRASIDONE MESYLATE 20 MG VIAL IM ONE (04:58)
[2020-02-28] MEDS: LORazepam 2 MG/ML VIAL IV PRN ×5 (05:00→21:02)
[2020-02-28] MEDS ORDERED: WATER FOR INJ Sterile (PF) 10 ML ONE (05:09)
[2020-02-28 06:03] LABS: Calcium 8.2 mg/dL (8.4-10.2)
[2020-02-28] MEDS: HEPARIN 5,000 UNIT/1 ML VIAL SUB-Q SCH ×3 (06:17→21:03)
--- NOTE | 2020-02-28 08:41 | Progress Note ---
Assessment and Plan Assessment and plan: MRCP not done yesterday due to claustrophobia Will follow GI recommendations --Acute hypoxic respiratory failure; requiring BiPAP Current Visit: Yes Status: Acute Plan to address problem: Secondary to pancreatitis, lung infiltrate, possible ARDS Oxygen titrate O2 sats to more than 90%, BiPAP as needed DuoNeb, If no improvement intubate Pulmonary critical following Empiric antibiotics Follow cultures -- Acute pancreatitis Or Dr. Ronal Gaona glad to see you ICU patient did not get a chance to say Mild improvement of symptoms Lipase trending down Lipase [phone]. Continue n.p.o. status, IV Protonix IV fluid and IV pain medication. GI following, possible MRCP Ice chips as needed -- Hypertensive emergency Current Visit: Yes Status: Acute Plan to address problem: Continue Cardene drip, will hold oral antihypertensives Due to worsening pancreatitis with symptoms IV antihypertensives, Closely monitor --JUANIS/probably secto hypertensive nephropathy gentle hydration, monitor renal function, avoid nephrotoxins, nephrology following --Medical noncompliance Current Visit: Yes Status: Acute Plan to address problem: Counseling done, strongly advised to adhere To the medications, diet, follow-up visits Patient verbalized understanding -- DVT prophylaxis Current Visit: Yes Status: Acute Plan to address problem: Patient placed on subcutaneous heparin. --Obesity; BMI 37.9 patient needs weight reduction when medically stable. --Possible alcohol withdrawal symptoms; Current Visit: Yes Status: Acute Plan to address problem: Discussed with GI Dr. eD La Rosa , agree with CIWA closely monitor , Ativan as needed will add CIWA protocol -- Full code status Current Visit: Yes Status: Acute Follow GI and pulmonary evaluation and recommendations We will closely monitor the patient and adjust the management as needed Plan of care reviewed with the patient and her nurse Closely monitor the patient and adjust management as needed I called patient's daughter at [phone] Ms. Jewell and discussed with her patient's condition treatment plan Answered all her questions The high probability of a clinically significant, sudden or life threatening deterioration of the [GI, CVS, metabolic] system(s) required my full and direct attention, intervention and personal management. The aggregate critical care time was [33] minutes. This time is in addition to time spent performing reported procedures but includes the following: [x] Data Review and interpretation [x] Patient assessment and monitoring of vital signs [x] Documentation [x] Medication orders and management History Interval history: I have seen and examined the patient at the bedside Overnight events reviewed Patient is severely agitated requiring restraints, restless Complaining of abdominal pain on LOADERS pump Anxious, on IV Ativan as needed Vital signs reviewed Hospitalist Physical - Constitutional Vitals: Temp Pulse Resp BP Pulse Ox 100.1 F H 109 H 29 H 193/100 96 02/28/20 03:26 02/28/20 08:15 02/28/20 08:15 02/28/20 08:15 02/28/20 06:15 General appearance: Present: mild distress, well-nourished, obese, other (Anxi ous and agitated) - EENT Eyes: Present: PERRL, EOM intact - Neck Neck: Present: supple, normal ROM - Respiratory Respiratory effort: normal Respiratory: bilateral: diminished, rhonchi, negative: rales, wheezing - Cardiovascular Rhythm: regular Heart Sounds: Present: S1 & S2 - Extremities Extremities: no ischemia, No edema - Abdominal General gastrointestinal: soft, non-tender, non-distended, normal bowel sounds - Integumentary Integumentary: Present: clear, warm - Psychiatric Psychiatric: agitated, other (Anxious) - Neurologic Neurologic: moves all extremities Results - Labs CBC & Chem 7: 02/27/20 04:18 02/28/20 05:07 Labs: Laboratory Last Values WBC 26.8 K/mm3 (4.5-11.0) H 02/27/20 04:18 RBC 3.76 M/mm3 (3.65-5.03) 02/27/20 04:18 Hgb 7.9 gm/dl (10.1-14.3) L 02/27/20 04:18 Hct 26.3 % (30.3-42.9) L 02/27/20 04:18 MCV 70 fl (79-97) L 02/27/20 04:18 MCH 21 pg (28-32) L 02/27/20 04:18 MCHC 30 % (30-34) 02/27/20 04:18 RDW 18.0 % (13.2-15.2) H 02/27/20 04:18 Plt Count 513 K/mm3 (140-440) H 02/27/20 04:18 Lymph % (Auto) 3.4 % (13.4-35.0) L 02/25/20 03:49 [place] % (Auto) 5.5 % (0.0-7.3) 02/25/20 03:49 Eos % (Auto) 0.1 % (0.0-4.3) 02/25/20 03:49 Baso % (Auto) 0.2 % (0.0-1.8) 02/25/20 03:49 Lymph # 1.0 K/mm3 (1.2-5.4) L 02/25/20 03:49 [place] # 1.0 K/mm3 (0.0-0.8) H 02/25/20 03:49 Eos # 0.0 K/mm3 (0.0-0.4) 02/25/20 03:49 Baso # 0.1 K/mm3 (0.0-0.1) 02/25/20 03:49 Seg Neutrophils % [employer] P[employer] 02/25/20 03:49 Seg Neutrophils # 26.4 K/mm3 (1.8-7.7) H 02/25/20 03:49 PT 13.7 Sec. (12.2-14.9) 02/25/20 03:49 INR 1.03 (0.87-1.13) 02/25/20 03:49 ABG pH 7.336 pH Units (7.350-7.450) L 02/27/20 16:57 ABG pCO2 31.3 mm Hg 02/27/20 16:57 ABG pO2 57.0 mm Hg (80.0-90.0) L 02/27/20 16:57 ABG HCO3 16.4 mmol/L (20.0-26.0) L 02/27/20 16:57 ABG O2 Saturation 88.2 % (95.0-99.0) L 02/27/20 16:57 ABG O2 Content 12.6 (0.0-44) 02/27/20 16:57 ABG Base Excess -8.4 mmol/L (-2.0-3.0) L 02/27/20 16:57 ABG Hemoglobin 10.4 gm/dl (12.0-16.0) L 02/27/20 16:57 ABG Carboxyhemoglobin 2.2 % (0.0-5.0) 02/27/20 16:57 ABG Methemoglobin 0.6 % (0.0-1.5) 02/27/20 16:57 Oxyhemoglobin 85.7 % (95.0-99.0) L 02/27/20 16:57 FiO2 21 % 02/27/20 16:57 Sodium 138 mmol/L (137-145) 02/28/20 05:07 Potassium 4.2 mmol/L (3.6-5.0) 02/28/20 05:07 Chloride 99.2 mmol/L (98-107) 02/28/20 05:07 Carbon Dioxide 14 mmol/L (22-30) L 02/28/20 05:07 Anion Gap 29 mmol/L 02/28/20 05:07 BUN 60 mg/dL (7-17) H 02/28/20 05:07 Creatinine 4.2 mg/dL (0.6-1.2) H 02/28/20 05:07 Estimated GFR 14 ml/min 02/28/20 05:07 BUN/Creatinine Ratio 14 % 02/28/20 05:07 Glucose 98 mg/dL (65-100) 02/28/20 05:07 POC Glucose 115 (70-105) H 02/28/20 05:56 Lactic Acid 0.90 mmol/L (0.7-2.0) 02/27/20 19:33 Calcium 8.2 mg/dL (8.4-10.2) L 02/28/20 05:07 Phosphorus 2.50 mg/dL (2.5-4.5) 02/26/20 04:39 Magnesium 1.80 mg/dL (1.7-2.3) 02/26/20 04:39 Total Bilirubin 0.70 mg/dL (0.1-1.2) 02/27/20 04:18 AST 22 units/L (5-40) 02/27/20 04:18 ALT 9 units/L (7-56) 02/27/20 04:18 Alkaline Phosphatase 102 units/L (35-129) 02/27/20 04:18 C-Reactive Protein 37.30 mg/dL (0.00-1.30) H 02/27/20 04:18 Total Protein 6.9 g/dL (6.3-8.2) 02/27/20 04:18 Albumin 3.0 g/dL (3.9-5) L 02/27/20 04:18 Albumin/Globulin Ratio 0.8 % 02/27/20 04:18 Triglycerides 118 mg/dL (2-149) 02/26/20 04:39 Lipase 177 units/L (13-60) H 02/27/20 04:18 HCG, Qual Negative (Negative) 02/24/20 02:53 PTH Intact 911.3 pg/mL (15-65) H 02/26/20 08:15 Urine Color Yellow (Yellow) 02/24/20 Unknown Urine Turbidity Clear (Clear) 02/24/20 Unknown Urine pH 6.0 (5.0-7.0) 02/24/20 Unknown Ur Specific [place] 1.020 (1.003-1.030) 02/24/20 Unknown Urine Protein >500 mg/dL (Negative) 02/24/20 Unknown Urine Glucose (UA) 50 mg/dL (Negative) 02/24/20 Unknown Urine Ketones Neg mg/dL (Negative) 02/24/20 Unknown Urine Blood Lg (Negative) 02/24/20 Unknown Urine Nitrite Neg (Negative) 02/24/20 Unknown Urine Bilirubin Neg (Negative) 02/24/20 Unknown Urine Urobilinogen < 2.0 mg/dL (<2.0) 02/24/20 Unknown Ur Leukocyte Esterase Neg (Negative) 02/24/20 Unknown Urine WBC (Auto) 11.0 /HPF (0.0-6.0) H 02/24/20 Unknown Urine RBC (Auto) 149.0 /HPF (0.0-6.0) 02/24/20 Unknown U Epithel Cells (Auto) 5.0 /HPF (0-13.0) 02/24/20 Unknown Urine Bacteria (Auto) 1+ /HPF (Negative) 02/24/20 Unknown Urine Mucus Few /HPF 02/24/20 Unknown Urine Creatinine 161.0 mg/dL (0.1-20.0) H 02/25/20 22:55 Protein/Creatinin Ratio 0.93 02/25/20 22:55 Urine Total Protein 150 mg/dL (5-11.8) H 02/25/20 22:55 Microbiology: Microbiology 02/26/20 18:56 Peripheral/Venous Blood Culture - Preliminary NO GROWTH AFTER 24 HOURS 02/26/20 18:56 Peripheral/Venous Blood Culture - Preliminary NO GROWTH AFTER 24 HOURS - Diagnostic Impressions Diagnostic Impressions: Echocardiogram 02/26/20 09:11 Transthoracic Echocardiogram Indication: Cardiomegaly BP: 149/92 HR: 122 Conclusions *Global left ventricular systolic function is normal. *The estimated ejection fraction is 60-65%. *Moderate to severe concentric left ventricular hypertrophy is observed. *The left atrium is mild to moderately dilated. *The aortic valve leaflets are moderately thickened. *A mean gradient of 22.39 mmHg across the outflow tract is likely not due to but hyperdynamic flow and LVH. *There is trace tricuspid regurgitation. Findings Left Ventricle: The left ventricular chamber size is normal. Moderate to severe concentric left ventricular hypertrophy is observed. Global left ventricular systolic function is normal. The estimated ejection fraction is 60-65%. Left Atrium: The left atrium is mild to moderately dilated. Right Ventricle: The right ventricular cavity size is normal. The right ventricular global systolic function is normal. Right Atrium: The right atrial cavity size is normal. Aortic Valve: The aortic valve leaflets are moderately thickened. There is no evidence of aortic regurgitation. The mean gradient of the aortic valve is 22.39 mmHg. Mitral Valve: The mitral valve leaflets are mildly thickened. There is trace of mitral regurgitation. There is no evidence of mitral stenosis. Tricuspid Valve: There is trace tricuspid regurgitation. No pulmonary hypertension is noted. Pulmonic Valve: There is trace pulmonic regurgitation. Pericardium: There is no pericardial effusion. Aorta: There is no dilatation of the ascending aorta. There is no dilatation of the aortic root. Venous: The inferior vena cava appears normal in size. Measurements Chambers 2D Name Value Normal Range IVSd (2D) 1.8 cm (0.6 - 1.1) LVPWd (2D) 1.74 cm (0.6 - 1.1) LVIDd (2D) 4.57 cm (3.7 - 5.6) LVIDs (2D) 2.73 cm (2 - 3.8) LV FS (2D) 40.27 % - EF Teichholz (2D) 71.04 % - Ao root diameter (2D) 2.79 cm (2 - 3.7) Volumes/Mass Name Value Normal Range LA ESV SP 4CH (A/L) 54.18 ml - LA ESV SP 2CH (A/L) 61.84 ml - LA ESV BP (A/L) 58.1 ml - LA ESV BP (A/L) index 30.74 ml/m2 - LA ESV SP 4CH (MOD) 52.89 ml - LA ESV SP 2CH (MOD) 60.65 ml - LA ESV BP (MOD) 56.77 ml - LA ESV BP (MOD) index 30.04 ml/m2 - LV EDV SP 4CH (MOD) 164.2 ml - LV ESV SP 4CH (MOD) 58.04 ml - EF SP 4CH (MOD) 64.65 % - Diastolic/Systolic Function Name Value Normal Range MV E-wave Vmax 1.38 m/sec - MV deceleration time 92.78 msec - MV A-wave Vmax 1.44 m/sec - MV E:A ratio 0.95 ratio - Aortic Valve Name Value Normal Range AV Vmax 3.08 m/sec - AV VTI 36.74 cm - AV peak gradient 37.98 mmHg - AV mean gradient 22.39 mmHg - LVOT diameter 2.01 cm - LVOT Vmax 2.45 m/sec - LVOT VTI 29.85 cm - LVOT peak gradient 24.04 mmHg - LVOT mean gradient 11.11 mmHg - SV LVOT 94.73 ml - JADA (continuity Vmax) 2.52 cm2 - JADA (continuity VTI) 2.58 cm2 - Ascending Ao 2.64 cm - Mitral Valve Name Value Normal Range MV PHT 37.88 msec - MVA (PHT) 5.81 cm2 - Tricuspid Valve Name Value Normal Range IVC diameter 1.93 cm (1.2 - 2.3) Pulmonic Valve/Qp:Qs Name Value Normal Range PV Vmax 2.83 m/sec - PV VTI 45.88 cm - PV peak gradient 32.06 mmHg - PV mean gradient 16.11 mmHg - MI end-diastolic Vmax 0.81 m/sec - RVOT Vmax 1.82 m/sec - RVOT VTI 25.12 cm - RVOT peak gradient 13.3 mmHg - Franks/IV: Voiding Method External Female Catheter IV Catheter Type [Right Wrist] Peripheral IV IV Catheter Type [Right Peripheral IV Antecubital] Active Medications - Current Medications Current Medications: Generic Name Dose Route Start Last Admin Trade Name Freq PRN Reason Stop Dose Admin Acetaminophen 650 mg 02/26/20 16:23 02/26/20 16:37 Tylenol PO 650 mg Q4H PRN Administration Pain, Mild (1-3)/ Temp >100. Albuterol 2.5 mg 02/27/20 20:00 02/27/20 20:55 Proventil IH 2.5 mg TIDRT INDU Administration Albuterol 2.5 mg 02/27/20 17:55 Proventil IH Q4HRT PRN Shortness Of Breath Amlodipine Besylate 10 mg 02/28/20 10:00 Amlodipine PO QDAY INDU Heparin Sodium (Porcine) 5,000 unit 02/24/20 14:00 02/28/20 06:17 Heparin SUB-Q 5,000 unit Q8HR INDU Administration Hydralazine HCl 50 mg 02/28/20 14:00 Apresoline PO Q8HR INDU Hydromorphone/Sodium Chloride 0 mg 02/26/20 10:00 02/27/20 09:35 Dilaudid [employer] 6mg/30ml IV 1 cartstart DIRECT INDU Administration Protocol Nicardipine HCl 50 mg/ Sodium 250 mls @ 25 mls/hr 02/24/20 07:00 02/27/20 18:36 Chloride IV 5 mg/hr TITR INDU 25 mls/hr Administration Protocol 5 MG/HR Piperacillin Sod/Tazobactam Sod 2.25 gm in 50 mls @ 100 mls/hr 02/26/20 18:30 02/28/20 07:33 Zosyn/Ns 2.25 Gm/50ml IV Not Given Q8H [facility] Protocol Labetalol HCl 10 mg 02/28/20 09:00 Labetalol IV Q4H PRN Hypertension Lorazepam 1 mg 02/28/20 04:20 02/28/20 05:00 Ativan IV 1 mg Q4H PRN Administration Agitation Metoprolol Tartrate 25 mg 02/28/20 10:00 Metoprolol PO BID [facility] Ondansetron HCl 4 mg 02/24/20 06:45 02/25/20 23:33 Zofran IV 4 mg Q8H PRN Administration Nausea And Vomiting Pantoprazole Sodium 40 mg 02/24/20 13:00 09/24/20 09:49 Protonix IV 40 mg QDAY INDU Administration Sodium Chloride 10 ml 02/24/20 10:00 02/28/20 07:33 Sodium Chloride Flush Syringe 10 Ml IV Not Given BID INDU Sodium Chloride 10 ml 02/24/20 06:45 Sodium Chloride Flush Syringe 10 Ml IV PRN PRN LINE FLUSH Nutrition/Malnutrition Assess - Dietary Evaluation Nutrition/Malnutrition Findings: Nutrition Notes Start: 02/24/20 13:42 Freq: Status: Active Protocol: Document 02/26/20 11:43 MK (Rec: 02/26/20 11:56 MK [id number]) Co-Sign 02/26/20 11:43 LP Nutrition Notes Initial or Follow up Reassessment Current Diagnosis Acute Kidney Injury, Hypertension,Hyperlipidemia Other Pertinent Diagnosis Acute pancreatitis Current Diet NPO Labs/Tests Co2 19 BUN 44 Cr 3.1 Lipase 540 Pertinent Medications NS at 125 ml/hr Height 5 ft 1 in Weight 91 kg [place] Body Weight (kg) 47.72 BMI 37.9 Weight Status Obese Subjective/Other Information FU for diet advancement. Per MD being advanced to clear liq . Percent of energy/protein needs met: 0%/0% Burn Absent Trauma Absent GI Symptoms None Current % PO Negligible Minimum of two criteria No Fluid Accumulation Moderate to Severe (severe) #2 Nutrition Diagnosis Inadequate oral intake As Evidenced by Signs and Symptoms NPO Diagnosis Progress(for reassessment Continues documentation) #1 Nutrition Diagnosis Food and nutrition-related knowledge deficit Diagnosis Progress(for reassessment Continues documentation) Is patient on ventilator? No Is Patient Ambulatory and/or Out of Bed Yes REE-([facility]-ambulatory/OOB) [ 1972.594 [id number]] Kcal/Kg value to use for calculation 16 Approximate Energy Requirements Using 1456 kcal/Kg Additional Notes Pro: 55-82.8 (0.8-1.2g/kg AdjBW 69kg) Fluid: 1ml/kcal Nutrition Intervention Goal #1 Meet energy and protein needs as best as possible via PO intakes Anticipated Discharge Needs: Undetermined at this time Follow-Up By: 02/28/20 Additional Comments FU for diet advancement, tolerance to cl liq
[2020-02-28] MEDS: niCARdipine 50 MG in SODIUM CHLORIDE 0.9% 250ML 230 ML IV SCH ×2 (08:43→10:59)
[2020-02-28] MEDS: ALBUTEROL 2.5 MG/3 ML NEBU IH SCH (08:50)
--- NOTE | 2020-02-28 09:14 | Progress Note ---
Assessment and Plan Cultures: Urine culture grew 10-100,000 usual skin xavier. Blood culture 02/26/2020 no growth today Assessment: 39 years old female with history of hypertension, previous kidney stone, hyperlipidemia and obesity admitted on 02/24/2020 due to a week history of severe epigastric abdominal pain radiated to the right flank and back: #Acute sepsis: leukocytosis improving, remains with low-grade fever. Urinalysis with minimal pyuria however negative leukocyte esterase. Doubt UTI. Likely secondary to severe pancreatitis. #Acute severe pancreatitis: ? Worsening. Initial noncontrasted CT shows no evidence of necrosis or pseudocyst or abscess formation. No evidence of in fected necrotic pancreatitis. Repeat CT shows Interval worsening of inflammatory changes to the pancreatic parenchyma extending now to the pancreatic body with significant interval worsening of peripancreatic fat stranding and surrounding disorganized fluid. #JUANIS: Likely secondary to pancreatitis, worsening, renal on board #Acute respiratory hypoxic failure: ? ARDS secondary to pancreatitis. Chest x- ray with new left lower lobe infiltrate. Recommendations: -f/u blood culture -f/u MRCP -pending, when stable -Continue zosyn renally adjusted. -Bowel rest -Pain management -Monitor creatinine and leukocytosis -GI medicine on board I will be covering the weekend, Dr. Graves will be rounding on Monday Will follow. Nallely Ty MD Infectious Diseases System Programmer [facility], [facility] M [phone] O [phone] Subjective Date of service: 02/28/20 Principal diagnosis: Pancreatitis Interval history: Patient is now on BiPAP, somnolent, nonverbal, tachycardic on monitor, T-max 100.9. Objective - Exam Narrative Exam: General appearance: Somnolent on BiPAP Eyes: anicteric sclerae, limited HENT: Atraumatic; oropharynx limited due to BiPAP mask Lungs: Diminished breath sounds bilaterally CV: Tachycardic Abdomen: Tense, distended, decreased bowel sounds Extremities: no edema, no cyanosis Skin: No rash. Psych: Somnolent today Neuro: Somnolent today. - Constitutional Vitals: Vital Signs Temp Pulse Resp BP Pulse Ox 98.5 F 116 H 30 H 193/100 100 02/28/20 08:00 02/28/20 09:02 02/28/20 09:02 02/28/20 08:15 02/28/20 09:04 Temperature -Last 24 Hours Temperature 98.5 F Temperature 100.1 F Temperature 98.9 F Temperature 100.9 F Temperature 98.7 F Temperature 98.2 F - Labs CBC & Chem 7: 02/27/20 04:18 02/28/20 05:07 Labs: Abnormal lab results 02/27/20 02/28/20 02/28/20 Range/Units 16:57 05:07 05:56 ABG pH 7.336 L (7.350-7.450) pH Units ABG pO2 57.0 L (80.0-90.0) mm Hg ABG HCO3 16.4 L (20.0-26.0) mmol/L ABG O2 Saturation 88.2 L (95.0-99.0) % ABG Base Excess -8.4 L (-2.0-3.0) mmol/L ABG Hemoglobin 10.4 L (12.0-16.0) gm/dl Oxyhemoglobin 85.7 L (95.0-99.0) % Carbon Dioxide 14 L (22-30) mmol/L BUN 60 H (7-17) mg/dL Creatinine 4.2 H (0.6-1.2) mg/dL POC Glucose 115 H (70-105) Calcium 8.2 L (8.4-10.2) mg/dL
--- NOTE | 2020-02-28 09:22 | Progress Note ---
Assessment and Plan # Acute Kidney Injury/Chronic Kidney Disease: suspect JUANIS in setting of hypertensive urgency and pre-renal injury from pancreatitis. Additional JUANIS risk factors include use of NSAID (Toradol) and PPI. 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 Creatinine has worsened from 1.7->3.0->3.1->3.4->4.2 since admission, with ongoing clinical deterioration, uncontrolled BPs, agitation today. - will trial diuretic stress test, Lasix 80mg IV x1 today, given respiratory status and worsening renal function. No indication for renal replacement therapy currently, non-oliguric - avoid NSAIDs as able - consider alternative to PPI if able - IVF as tolerated - strict Is/Os - ordered serologies; minimal proteinuria per UP/C, PTH high for CKD; reviewed urinalysis which does show hematuria and proteinuria - BP control as below # Hypertensive Emergency: agree with Cardene gtt, agree to titrate back to home amlodipine, metoprolol once able to tolerate po regimen. On HANNA-I at home, hold for now. Did discuss importance of medication and diet compliance # Acidosis: start po HCO3 # Pancreatitis: appreciate GI, pain management per primary. MRCP pending # Thrombocytosis # Leukocytosis Subjective Date of service: 02/28/20 Principal diagnosis: Pancreatitis Interval history: Patient appears agitated this AM, was on Bipap overnight, currently on Venti- mask. Thought to be due to withdrawal. Objective - Exam Narrative Exam: General appearance: anxious, agitated, ill appearing Eyes: anicteric sclerae HENT: Atraumatic; oropharynx Lungs: Clear to auscultation bilaterally CV: RRR, no murmur Abdomen: Tense Extremities: no edema Skin: No rash. Psych: awake now Neuro: drowsy and unable to communicate. Moving all extermities - Vital Signs Vital signs: Vital Signs - 12hr 02/27/20 02/27/20 02/27/20 21:30 21:46 22:00 Temperature Pulse Rate 110 H 127 H 109 H Pulse Rate [ Anterior Bilateral Throughout] Pulse Rate [ From Monitor] Respiratory 34 H 37 H 30 H Rate Respiratory Rate [Anterior Bilateral Throughout] Blood Pressure 151/78 151/78 127/75 O2 Sat by Pulse 100 Oximetry 02/27/20 02/27/20 02/27/20 22:16 22:30 22:46 Temperature 98.9 F Pulse Rate 108 H 122 H 131 H Pulse Rate [ Anterior Bilateral Throughout] Pulse Rate [ From Monitor] Respiratory 28 H 39 H Rate Respiratory Rate [Anterior Bilateral Throughout] Blood Pressure 148/54 148/54 148/54 O2 Sat by Pulse 100 Oximetry 02/27/20 02/27/20 02/27/20 23:00 23:16 23:30 Temperature Pulse Rate 111 H 106 H 104 H Pulse Rate [ Anterior Bilateral Throughout] Pulse Rate [ From Monitor] Respiratory 37 H 33 H 29 H Rate Respiratory Rate [Anterior Bilateral Throughout] Blood Pressure 148/54 129/72 135/76 O2 Sat by Pulse 99 97 Oximetry 02/27/20 02/28/20 02/28/20 23:46 00:00 00:16 Temperature Pulse Rate 102 H 103 H 103 H Pulse Rate [ Anterior Bilateral Throughout] Pulse Rate [ 117 H From Monitor] Respiratory 35 H 34 H 33 H Rate Respiratory Rate [Anterior Bilateral Throughout] Blood Pressure 135/76 143/77 143/77 O2 Sat by Pulse 99 97 99 Oximetry 02/28/20 02/28/20 02/28/20 00:30 00:46 00:53 Temperature Pulse Rate 102 H 106 H 99 H Pulse Rate [ Anterior Bilateral Throughout] Pulse Rate [ From Monitor] Respiratory 30 H 31 H 33 H Rate Respiratory Rate [Anterior Bilateral Throughout] Blood Pressure 145/68 145/68 O2 Sat by Pulse 92 100 97 Oximetry 02/28/20 02/28/20 02/28/20 01:00 01:15 01:31 Temperature Pulse Rate 107 H 113 H 121 H Pulse Rate [ Anterior Bilateral Throughout] Pulse Rate [ From Monitor] Respiratory 32 H 44 H 42 H Rate Respiratory Rate [Anterior Bilateral Throughout] Blood Pressure 145/68 146/61 146/61 O2 Sat by Pulse 99 95 Oximetry 02/28/20 02/28/20 02/28/20 01:45 02:01 02:15 Temperature Pulse Rate 113 H 111 H 107 H Pulse Rate [ Anterior Bilateral Throughout] Pulse Rate [ From Monitor] Respiratory 36 H 36 H 31 H Rate Respiratory Rate [Anterior Bilateral Throughout] Blood Pressure 143/70 150/79 150/79 O2 Sat by Pulse 100 100 100 Oximetry 02/28/20 02/28/20 02/28/20 02:30 02:45 03:00 Temperature Pulse Rate 103 H 102 H 105 H Pulse Rate [ Anterior Bilateral Throughout] Pulse Rate [ From Monitor] Respiratory 28 H 35 H 30 H Rate Respiratory Rate [Anterior Bilateral Throughout] Blood Pressure 141/76 141/76 143/75 O2 Sat by Pulse 99 99 98 Oximetry 02/28/20 02/28/20 02/28/20 03:15 03:26 03:30 Temperature 100.1 F H Pulse Rate 104 H 103 H Pulse Rate [ Anterior Bilateral Throughout] Pulse Rate [ From Monitor] Respiratory 31 H 32 H Rate Respiratory Rate [Anterior Bilateral Throughout] Blood Pressure 143/75 144/70 O2 Sat by Pulse 100 98 Oximetry 02/28/20 02/28/20 02/28/20 03:45 04:00 04:15 Temperature Pulse Rate 105 H 104 H 108 H Pulse Rate [ Anterior Bilateral Throughout] Pulse Rate [ 110 H From Monitor] Respiratory 31 H 31 H 30 H Rate Respiratory Rate [Anterior Bilateral Throughout] Blood Pressure 144/70 146/80 146/80 O2 Sat by Pulse 99 99 99 Oximetry 02/28/20 02/28/20 02/28/20 04:26 04:30 04:45 Temperature Pulse Rate 108 H 111 H 114 H Pulse Rate [ Anterior Bilateral Throughout] Pulse Rate [ From Monitor] Respiratory 34 H 36 H 37 H Rate Respiratory Rate [Anterior Bilateral Throughout] Blood Pressure 151/100 151/100 O2 Sat by Pulse 98 100 Oximetry 02/28/20 02/28/20 02/28/20 05:01 05:15 05:30 Temperature Pulse Rate 121 H 126 H 108 H Pulse Rate [ Anterior Bilateral Throughout] Pulse Rate [ From Monitor] Respiratory 31 H 40 H 34 H Rate Respiratory Rate [Anterior Bilateral Throughout] Blood Pressure 151/100 151/100 168/73 O2 Sat by Pulse Oximetry 02/28/20 02/28/20 02/28/20 05:45 06:01 06:15 Temperature Pulse Rate 105 H 106 H 106 H Pulse Rate [ Anterior Bilateral Throughout] Pulse Rate [ From Monitor] Respiratory 36 H 32 H 32 H Rate Respiratory Rate [Anterior Bilateral Throughout] Blood Pressure 168/73 182/84 182/84 O2 Sat by Pulse 96 Oximetry 02/28/20 02/28/20 02/28/20 06:31 06:45 07:01 Temperature Pulse Rate 105 H 107 H 106 H Pulse Rate [ Anterior Bilateral Throughout] Pulse Rate [ From Monitor] Respiratory 33 H 32 H 31 H Rate Respiratory Rate [Anterior Bilateral Throughout] Blood Pressure 188/80 188/80 189/79 O2 Sat by Pulse Oximetry 02/28/20 02/28/20 02/28/20 07:15 07:31 07:45 Temperature Pulse Rate 107 H 108 H 107 H Pulse Rate [ Anterior Bilateral Throughout] Pulse Rate [ From Monitor] Respiratory 31 H 29 H 29 H Rate Respiratory Rate [Anterior Bilateral Throughout] Blood Pressure 189/79 193/82 193/82 O2 Sat by Pulse Oximetry 02/28/20 02/28/20 02/28/20 08:00 08:01 08:15 Temperature 98.5 F Pulse Rate 109 H 109 H 109 H Pulse Rate [ Anterior Bilateral Throughout] Pulse Rate [ From Monitor] Respiratory 30 H 29 H Rate Respiratory Rate [Anterior Bilateral Throughout] Blood Pressure 193/100 193/100 O2 Sat by Pulse Oximetry 02/28/20 02/28/20 09:02 09:04 Temperature Pulse Rate Pulse Rate [ 116 H Anterior Bilateral Throughout] Pulse Rate [ From Monitor] Respiratory Rate Respiratory 30 H Rate [Anterior Bilateral Throughout] Blood Pressure O2 Sat by Pulse 100 Oximetry - Lab 02/27/20 04:18 02/28/20 05:07 Most recent lab results ABG pH 7.336 pH Units (7.350-7.450) L 02/27/20 16:57 ABG pCO2 31.3 mm Hg 02/27/20 16:57 ABG pO2 57.0 mm Hg (80.0-90.0) L 02/27/20 16:57 ABG HCO3 16.4 mmol/L (20.0-26.0) L 02/27/20 16:57 ABG O2 Saturation 88.2 % (95.0-99.0) L 02/27/20 16:57 Calcium 8.2 mg/dL (8.4-10.2) L 02/28/20 05:07 Phosphorus 2.50 mg/dL (2.5-4.5) 02/26/20 04:39 Magnesium 1.80 mg/dL (1.7-2.3) 02/26/20 04:39 Urine Creatinine 161.0 mg/dL (0.1-20.0) H 02/25/20 22:55 Urine Total Protein 150 mg/dL (5-11.8) H 02/25/20 22:55 Medications & Allergies - Medications Allergies/Adverse Reactions: Allergies No Known Allergies Allergy (Unverified 09/05/19 10:15) Home Medications: Home Medications Medication Instructions Recorded Confirmed Last Taken Type Amlodipine Besylate [Norvasc] 10 mg PO DAILY 09/05/19 02/24/20 09/04/19 History Furosemide [Lasix] 20 mg PO QDAY #30 tablet 09/05/19 02/24/20 Unknown Rx Lisinopril [Zestril] 5 mg PO DAILY #30 tablet 09/05/19 02/24/20 Unknown Rx Metoprolol [Lopressor TAB] 25 mg PO BID #60 tablet 09/05/19 02/24/20 Unknown Rx Active Medications: Generic Name Dose Route Start Last Admin Trade Name Freq PRN Reason Stop Dose Admin Acetaminophen 650 mg 02/26/20 16:23 02/26/20 16:37 Tylenol PO 650 mg Q4H PRN Administration Pain, Mild (1-3)/ Temp >100. Albuterol 2.5 mg 02/27/20 20:00 02/28/20 08:50 Proventil IH 2.5 mg TIDRT INDU Administration Albuterol 2.5 mg 02/27/20 17:55 Proventil IH Q4HRT PRN Shortness Of Breath Amlodipine Besylate 10 mg 02/28/20 10:00 Amlodipine PO QDAY INDU Heparin Sodium (Porcine) 5,000 unit 02/24/20 14:00 02/28/20 06:17 Heparin SUB-Q 5,000 unit Q8HR INDU Administration Hydralazine HCl 50 mg 02/28/20 14:00 Apresoline PO Q8HR INDU Hydromorphone/Sodium Chloride 0 mg 02/26/20 10:00 02/27/20 09:35 Dilaudid Hide Paster 6mg/30ml IV 1 cartstart DIRECT INDU Administration Protocol Nicardipine HCl 50 mg/ Sodium 250 mls @ 25 mls/hr 02/24/20 07:00 02/28/20 08:43 Chloride IV 10 mg/hr TITR INDU 50 mls/hr Administration Protocol 5 MG/HR Piperacillin Sod/Tazobactam Sod 2.25 gm in 50 mls @ 100 mls/hr 02/26/20 18:30 02/28/20 07:33 Zosyn/Ns 2.25 Gm/50ml IV Not Given Q8H [facility] Protocol Labetalol HCl 10 mg 02/28/20 09:00 Labetalol IV Q4H PRN Hypertension Lorazepam 1 mg 02/28/20 04:20 02/28/20 05:00 Ativan IV 1 mg Q4H PRN Administration Agitation Metoprolol Tartrate 25 mg 02/28/20 10:00 Metoprolol PO BID [facility] Ondansetron HCl 4 mg 02/24/20 06:45 02/25/20 23:33 Zofran IV 4 mg Q8H PRN Administration Nausea And Vomiting Pantoprazole Sodium 40 mg 02/24/20 13:00 02/27/20 09:49 Protonix IV 40 mg QDAY INDU Administration Sodium Chloride 10 ml 02/24/20 10:00 02/28/20 07:33 Sodium Chloride Flush Syringe 10 Ml IV Not Given BID [facility] Sodium Chloride 10 ml 02/24/20 06:45 Sodium Chloride Flush Syringe 10 Ml IV PRN PRN LINE FLUSH
[2020-02-28] MEDS ORDERED: FUROSEMIDE 100 MG/10 ML INJ IV NR (09:23)
[2020-02-28] MEDS: amLODIPine 10 MG TAB PO SCH (09:36)
[2020-02-28] MEDS: METOPROLOL TARTRATE 25 MG TAB PO SCH ×2 (09:36→21:07)
[2020-02-28] MEDS: PANTOPRAZOLE 40 MG INJ IV SCH (09:36)
[2020-02-28 11:25] LABS: ABG Base Excess -8.9 mmol/L (-2.0-3.0); ABG HCO3 16.4 mmol/L (20.0-26.0); ABG Methemoglobin 0.4 % (0.0-1.5); ABG PCO2 32.8 mm Hg; ABG PH 7.317 pH Units (7.350-7.450); ABG PO2 84.2 mm Hg (80.0-90.0)
[2020-02-28] MEDS: HALOPERIDOL LACTATE 5 MG/1 ML INJ IV PRN (11:51)
--- NOTE | 2020-02-28 12:21 | Gastroenterology Progress Note ---
Assessment and Plan - Patient Problems (1) Acute pancreatitis Current Visit: Yes Status: Acute Plan to address problem: - Possible passed gallstone, but LFTs WNL, no stones on US, and the CBD is normal in size; no indication for ERCP at present. Does have a hx of EtOH, but minimal per patient. Now that delerious 3 days after admit, I am concerned her EtOH level was higher than reported. - Will recheck labs tomorrow, and get MRCP when patient can tolerate; with normal LFTs I doubt small calcification seen on CT in region of pancreas head is a stone in the CBD or PD (no upstream dilation). - If ERCP needed, will need improved BP control. Continue nifedipine gtt. - Patient should avoid NSAIDs and EtOH; I started protonix but doubt penetrating PUD to cause pancreatitis in absence of free air. (2) Altered mental status Current Visit: Yes Status: Acute Plan to address problem: - Worsening mental status possibly from pancreatitis and acute kidney injury, but EtOH withdrawal also possible. - Patient has been started on CIWA protocol, and narcotics to be weaned. - If unable to advance diet by Monday, will need PPN/TPN, or a Dobhoff. Subjective Date of service: 02/28/20 Principal diagnosis: Pancreatitis Interval history: The patient has been more delerious, pulling at facemask and IVs. She has no complaints of pain at present, just "wants to get out of here." She had to be restrained from pulling off support devices while I was in the room. Objective - Constitutional Vitals: Temp Pulse Resp BP Pulse Ox 99.7 F H 109 H 41 H 137/111 98 02/28/20 12:00 02/28/20 12:00 02/28/20 12:00 02/28/20 12:02/28/20 11:00 General appearance: mild distress - EENT Eyes: PERRL, EOM intact - Respiratory Respiratory effort: labored Respiratory: bilateral: diminished - Cardiovascular Heart Rate: 115 Rhythm: regular Heart Sounds: Present: S1 & S2 - Gastrointestinal General gastrointestinal: Present: soft, non-tender, distended (Mildly distended) - Neurologic Neurological: oriented to person, other (Agitated and can only briefly follow commands) - Labs CBC & Chem 7: 02/27/20 04:18 02/28/20 05:07 Labs: Laboratory Results - last 24 hr 02/27/20 02/27/20 02/27/20 14:00 16:57 18:30 ABG pH 7.336 L ABG pCO2 31.3 ABG pO2 57.0 L ABG HCO3 16.4 L ABG O2 Saturation 88.2 L ABG O2 Content 12.6 ABG Base Excess -8.4 L ABG Hemoglobin 10.4 L ABG Carboxyhemoglobin 2.2 ABG Methemoglobin 0.6 Oxyhemoglobin 85.7 L FiO2 21 Sodium Potassium Chloride Carbon Dioxide Anion Gap BUN Creatinine Estimated GFR BUN/Creatinine Ratio Glucose POC Glucose 104 85 Lactic Acid Calcium Lipase 02/27/20 02/27/20 02/28/20 19:33 23:55 05:07 ABG pH ABG pCO2 ABG pO2 ABG HCO3 ABG O2 Saturation ABG O2 Content ABG Base Excess ABG Hemoglobin ABG Carboxyhemoglobin ABG Methemoglobin Oxyhemoglobin FiO2 Sodium 138 Potassium 4.2 Chloride 99.2 Carbon Dioxide 14 L Anion Gap 29 BUN 60 H Creatinine 4.2 H Estimated GFR 14 BUN/Creatinine Ratio 14 Glucose 98 POC Glucose 97 Lactic Acid 0.90 Calcium 8.2 L Lipase 02/28/20 02/28/20 02/28/20 05:07 05:56 11:05 ABG pH 7.317 L ABG pCO2 32.8 ABG pO2 84.2 ABG HCO3 16.4 L ABG O2 Saturation 97.0 ABG O2 Content 8.9 ABG Base Excess -8.9 L ABG Hemoglobin 6.6 L ABG Carboxyhemoglobin 2.2 ABG Methemoglobin 0.4 Oxyhemoglobin 94.6 L FiO2 50 Sodium Potassium Chloride Carbon Dioxide Anion Gap BUN Creatinine Estimated GFR BUN/Creatinine Ratio Glucose POC Glucose 115 H Lactic Acid Calcium Lipase 155 H
[2020-02-28] MEDS: IPRATROPIUM/ALBUTEROL SULFATE 3 ML AMPUL.NEB IH SCH ×3 (12:24→21:13)
[2020-02-28] MEDS: DEXMEDETOMIDINE 400 MCG in SODIUM CHLORIDE 0.9% 100 ML IV SCH ×2 (12:47→18:47)
--- NOTE | 2020-02-28 13:08 | Progress Note ---
Assessment and Plan Hypertensive urgency Morbid obesity Acute pancreatitis, abdominal pain Medical non compliance - CXR reviewed and addressed, no acute process - begin CIND protocol for tentative EtOH withdrawal - begin Precedex drip re: delirium - continue NIV - intubation if does not improve or tolerate BIPAP - advance diet per Surgeon (may need feeding tuibe if remains BIPAP dependent in short term) - continue care as below otherwise; - follow repeat CT abd/pelvis - follow MRCP - continue Zosyn; de-escalate per ID rec's - continue Nicardipine for her blood pressure management till taking orally (target BP < 160 mmHg) - JUANIS per sr. strategic sourcing manager - Repeat CTabdomen and pelvis with oral contrast, no IV contrast to re-image the pancreas - Supplemental oxygen as needed to keep O2 sats > 90% - Evaluation for sleep apnea as an outpatient - VTE prophylaxis - prn Analgesia per CPOT score - Stress ulcer prophylaxis in view of acute pancreatitis - Life style modification, and counselling on the need for medical compliance - IV hydration - tobacco abstinence counseled - continue opther care per attending / other consultants - tentatively transfer to IMCU in am if no overnight setbacks ..... re-evaluate in am & prn CONDITION: CRITICAL PROGNOSIS: GUARDED CODE STATUS: FULL CODE The high probability of a clinically significant, sudden or life-threatening deterioration of the [respiratory, cardiovascular & GI] system(s) required my fu ll and direct attention, intervention and personal management. The aggregate critical care time was [32] minutes without overlap. Time includes spent on; [x] Data Review and interpretation [x] Patient assessment and monitoring of vital signs [x] Documentation [x] Medication orders and management Subjective Date of service: 02/28/20 Principal diagnosis: HTNsive urgency; Morbid obesity; Ac. pancreatitis; Abdomina l pain Interval history: Patient is seen today for: Hypertensive urgency; Morbid obesity; Acute pancreatitis; abdominal pain; Medical non compliance Seen and examined at bedside; 24hour events reviewed; nursing and respiratory care staff consulted; no adverse overnight events reported to me; laying in bed; definitely delirious now; no emesis or overt aspiration; agitated overnight per RN; attempted to reach next of kin unsuccesfully to get a more detailed EtOH use history; no overt hypotension Objective Vital Signs - 12hr 02/28/20 02/28/20 02/28/20 01:15 01:31 01:45 Temperature Pulse Rate 113 H 121 H 113 H Pulse Rate [ Anterior Bilateral Throughout] Pulse Rate [ From Monitor] Respiratory 44 H 42 H 36 H Rate Respiratory Rate [Anterior Bilateral Throughout] Blood Pressure 146/61 146/61 143/70 O2 Sat by Pulse 95 100 Oximetry 02/28/20 02/28/20 02/28/20 02:01 02:15 02:30 Temperature Pulse Rate 111 H 107 H 103 H Pulse Rate [ Anterior Bilateral Throughout] Pulse Rate [ From Monitor] Respiratory 36 H 31 H 28 H Rate Respiratory Rate [Anterior Bilateral Throughout] Blood Pressure 150/79 150/79 141/76 O2 Sat by Pulse 100 100 99 Oximetry 02/28/20 02/28/20 02/28/20 02:45 03:00 03:15 Temperature Pulse Rate 102 H 105 H 104 H Pulse Rate [ Anterior Bilateral Throughout] Pulse Rate [ From Monitor] Respiratory 35 H 30 H 31 H Rate Respiratory Rate [Anterior Bilateral Throughout] Blood Pressure 141/76 143/75 143/75 O2 Sat by Pulse 99 98 100 Oximetry 02/28/20 02/28/20 02/28/20 03:26 03:30 03:45 Temperature 100.1 F H Pulse Rate 103 H 105 H Pulse Rate [ Anterior Bilateral Throughout] Pulse Rate [ From Monitor] Respiratory 32 H 31 H Rate Respiratory Rate [Anterior Bilateral Throughout] Blood Pressure 144/70 144/70 O2 Sat by Pulse 98 99 Oximetry 02/28/20 02/28/20 02/28/20 04:00 04:15 04:26 Temperature Pulse Rate 104 H 108 H 108 H Pulse Rate [ Anterior Bilateral Throughout] Pulse Rate [ 110 H From Monitor] Respiratory 31 H 30 H 34 H Rate Respiratory Rate [Anterior Bilateral Throughout] Blood Pressure 146/80 146/80 O2 Sat by Pulse 99 99 98 Oximetry 02/28/20 02/28/20 02/28/20 04:30 04:45 05:01 Temperature Pulse Rate 111 H 114 H 121 H Pulse Rate [ Anterior Bilateral Throughout] Pulse Rate [ From Monitor] Respiratory 36 H 37 H 31 H Rate Respiratory Rate [Anterior Bilateral Throughout] Blood Pressure 151/100 151/100 151/100 O2 Sat by Pulse 100 Oximetry 02/28/20 02/28/20 02/28/20 05:15 05:30 05:45 Temperature Pulse Rate 126 H 108 H 105 H Pulse Rate [ Anterior Bilateral Throughout] Pulse Rate [ From Monitor] Respiratory 40 H 34 H 36 H Rate Respiratory Rate [Anterior Bilateral Throughout] Blood Pressure 151/100 168/73 168/73 O2 Sat by Pulse Oximetry 02/28/20 02/28/20 02/28/20 06:01 06:15 06:31 Temperature Pulse Rate 106 H 106 H 105 H Pulse Rate [ Anterior Bilateral Throughout] Pulse Rate [ From Monitor] Respiratory 32 H 32 H 33 H Rate Respiratory Rate [Anterior Bilateral Throughout] Blood Pressure 182/84 182/84 188/80 O2 Sat by Pulse 96 Oximetry 02/28/20 02/28/20 02/28/20 06:45 07:01 07:15 Temperature Pulse Rate 107 H 106 H 107 H Pulse Rate [ Anterior Bilateral Throughout] Pulse Rate [ From Monitor] Respiratory 32 H 31 H 31 H Rate Respiratory Rate [Anterior Bilateral Throughout] Blood Pressure 188/80 189/79 189/79 O2 Sat by Pulse Oximetry 02/28/20 02/28/20 02/28/20 07:31 07:45 08:00 Temperature 98.5 F Pulse Rate 108 H 107 H 109 H Pulse Rate [ Anterior Bilateral Throughout] Pulse Rate [ From Monitor] Respiratory 29 H 29 H Rate Respiratory Rate [Anterior Bilateral Throughout] Blood Pressure 193/82 193/82 O2 Sat by Pulse Oximetry 02/28/20 02/28/20 02/28/20 08:01 08:15 08:31 Temperature Pulse Rate 109 H 109 H 111 H Pulse Rate [ Anterior Bilateral Throughout] Pulse Rate [ From Monitor] Respiratory 30 H 29 H 30 H Rate Respiratory Rate [Anterior Bilateral Throughout] Blood Pressure 193/100 193/100 217/81 O2 Sat by Pulse Oximetry 02/28/20 02/28/20 02/28/20 08:45 09:01 09:02 Temperature Pulse Rate 121 H 118 H Pulse Rate [ 116 H Anterior Bilateral Throughout] Pulse Rate [ From Monitor] Respiratory 36 H 39 H Rate Respiratory 30 H Rate [Anterior Bilateral Throughout] Blood Pressure 217/81 175/119 O2 Sat by Pulse Oximetry 02/28/20 02/28/20 02/28/20 09:04 09:15 09:31 Temperature Pulse Rate 116 H 115 H Pulse Rate [ Anterior Bilateral Throughout] Pulse Rate [ From Monitor] Respiratory 42 H 42 H Rate Respiratory Rate [Anterior Bilateral Throughout] Blood Pressure 175/119 194/89 O2 Sat by Pulse 100 94 Oximetry 02/28/20 02/28/20 02/28/20 09:45 10:01 10:15 Temperature Pulse Rate 113 H 114 H Pulse Rate [ Anterior Bilateral Throughout] Pulse Rate [ From Monitor] Respiratory 39 H 46 H Rate Respiratory Rate [Anterior Bilateral Throughout] Blood Pressure 194/89 186/84 186/84 O2 Sat by Pulse 97 96 Oximetry 02/28/20 02/28/20 02/28/20 10:36 10:45 11:00 Temperature Pulse Rate 106 H 105 H Pulse Rate [ Anterior Bilateral Throughout] Pulse Rate [ From Monitor] Respiratory 48 H 46 H Rate Respiratory Rate [Anterior Bilateral Throughout] Blood Pressure 186/84 195/84 150/81 O2 Sat by Pulse 80 L 91 98 Oximetry 02/28/20 02/28/20 02/28/20 11:15 11:30 11:45 Temperature Pulse Rate 108 H 107 H 109 H Pulse Rate [ Anterior Bilateral Throughout] Pulse Rate [ From Monitor] Respiratory 48 H 39 H 43 H Rate Respiratory Rate [Anterior Bilateral Throughout] Blood Pressure 162/84 137/86 137/86 O2 Sat by Pulse Oximetry 02/28/20 02/28/20 12:00 12:05 Temperature 99.7 F H Pulse Rate 109 H Pulse Rate [ 112 H Anterior Bilateral Throughout] Pulse Rate [ From Monitor] Respiratory 41 H Rate Respiratory 46 H Rate [Anterior Bilateral Throughout] Blood Pressure 137/111 O2 Sat by Pulse Oximetry Constitutional: appears uncomfortable, other (Obese female with moderately increased respiratory effort at rest) Eyes: non-icteric ENT: oropharynx moist, other (BIPAP FFM) Neck: supple, no lymphadenopathy, no JVD Effort: mildly labored Ascultation: Bilateral: diminished breath sounds, wheezes (expiratory), rhonchi (scant) Percussion: Bilateral: not dull Cardiovascular: regular rate and rhythm, other (S1,S2) Gastrointestinal: normoactive bowel sounds, soft, tender (epigastrium), non- distended Integumentary: normal Extremities: no cyanosis, no edema, pulses normal, no ischemia or petechiae Neurologic: normal mental status, non-focal exam, pupils equal and round, motor strength normal and Psychiatric: other (delirious) CBC and BMP: 02/27/20 04:18 02/28/20 05:07 ABG, PT/INR, D-dimer: ABG ABG pH 7.317 pH Units (7.350-7.450) L 02/28/20 11:05 ABG pCO2 32.8 mm Hg 02/28/20 11:05 ABG pO2 84.2 mm Hg (80.0-90.0) 02/28/20 11:05 ABG O2 Saturation 97.0 % (95.0-99.0) 02/28/20 11:05 PT/INR, D-dimer PT 13.7 Sec. (12.2-14.9) 02/25/20 03:49 INR 1.03 (0.87-1.13) 02/25/20 03:49 Abnormal lab findings: Abnormal Labs 02/24/20 02/24/20 02/24/20 02:53 02:53 Unknown WBC 12.7 H Hgb 10.0 L Hct MCV 70 L MCH 22 L RDW 17.9 H Plt Count 458 H Lymph % (Auto) 8.9 L Lymph # 1.1 L [place] # Seg Neutrophils % 84.2 H Seg Neutrophils # 10.7 H ABG pH ABG pO2 ABG HCO3 ABG O2 Saturation ABG Base Excess ABG Hemoglobin Oxyhemoglobin Sodium Chloride Carbon Dioxide BUN 27 H Creatinine 1.7 H Glucose 118 H POC Glucose Calcium Albumin C-Reactive Protein Lipase 232 H PTH Intact Urine WBC (Auto) 11.0 H Urine Creatinine Urine Total Protein 02/25/20 02/25/20 02/25/20 00:03 03:49 03:49 WBC 29.1 H Hgb 9.4 L Hct 30.2 L MCV 71 L MCH 22 L RDW 18.3 H Plt Count 525 H Lymph % (Auto) 3.4 L Lymph # 1.0 L [place] # 1.0 H Seg Neutrophils % Seg Neutrophils # 26.4 H ABG pH ABG pO2 ABG HCO3 ABG O2 Saturation ABG Base Excess ABG Hemoglobin Oxyhemoglobin Sodium Chloride Carbon Dioxide BUN Creatinine Glucose POC Glucose 126 H Calcium Albumin C-Reactive Protein Lipase 1486 H PTH Intact Urine WBC (Auto) Urine Creatinine Urine Total Protein 02/25/20 02/25/20 02/25/20 03:49 05:55 22:55 WBC Hgb Hct MCV MCH RDW Plt Count Lymph % (Auto) Lymph # [place] # Seg Neutrophils % Seg Neutrophils # ABG pH ABG pO2 ABG HCO3 ABG O2 Saturation ABG Base Excess ABG Hemoglobin Oxyhemoglobin Sodium 136 L Chloride 97.9 L Carbon Dioxide 21 L BUN 39 H Creatinine 3.0 H D Glucose 118 H POC Glucose 124 H Calcium Albumin 3.6 L C-Reactive Protein Lipase PTH Intact Urine WBC (Auto) Urine Creatinine 161.0 H Urine Total Protein 150 H 02/26/20 02/26/20 02/26/20 04:39 04:39 08:15 WBC 30.3 H Hgb 9.1 L Hct 29.8 L MCV 71 L MCH 22 L RDW 18.2 H Plt Count 530 H Lymph % (Auto) Lymph # [place] # Seg Neutrophils % Seg Neutrophils # ABG pH ABG pO2 ABG HCO3 ABG O2 Saturation ABG Base Excess ABG Hemoglobin Oxyhemoglobin Sodium Chloride Carbon Dioxide 19 L BUN 44 H Creatinine 3.1 H Glucose 106 H POC Glucose Calcium 8.1 L Albumin C-Reactive Protein Lipase 540 H PTH Intact 911.3 H Urine WBC (Auto) Urine Creatinine Urine Total Protein 02/26/20 02/27/20 02/27/20 12:14 04:18 04:18 WBC 26.8 H Hgb 7.9 L Hct 26.3 L MCV 70 L MCH 21 L RDW 18.0 H Plt Count 513 H Lymph % (Auto) Lymph # [place] # Seg Neutrophils % Seg Neutrophils # ABG pH ABG pO2 ABG HCO3 ABG O2 Saturation ABG Base Excess ABG Hemoglobin Oxyhemoglobin Sodium 135 L Chloride Carbon Dioxide 15 L BUN 50 H Creatinine 3.4 H Glucose POC Glucose 112 H Calcium 7.4 L Albumin C-Reactive Protein Lipase PTH Intact Urine WBC (Auto) Urine Creatinine Urine Total Protein 02/27/20 02/27/20 02/28/20 04:18 16:57 05:07 WBC Hgb Hct MCV MCH RDW Plt Count Lymph % (Auto) Lymph # [place] # Seg Neutrophils % Seg Neutrophils # ABG pH 7.336 L ABG pO2 57.0 L ABG HCO3 16.4 L ABG O2 Saturation 88.2 L ABG Base Excess -8.4 L ABG Hemoglobin 10.4 L Oxyhemoglobin 85.7 L Sodium 135 L Chloride Carbon Dioxide 16 L 14 L BUN 51 H 60 H Creatinine 3.4 H 4.2 H Glucose POC Glucose Calcium 7.5 L 8.2 L Albumin 3.0 L C-Reactive Protein 37.30 H Lipase 177 H PTH Intact Urine WBC (Auto) Urine Creatinine Urine Total Protein 02/28/20 02/28/20 02/28/20 05:07 05:56 11:05 WBC Hgb Hct MCV MCH RDW Plt Count Lymph % (Auto) Lymph # [place] # Seg Neutrophils % Seg Neutrophils # ABG pH 7.317 L ABG pO2 ABG HCO3 16.4 L ABG O2 Saturation ABG Base Excess -8.9 L ABG Hemoglobin 6.6 L Oxyhemoglobin 94.6 L Sodium Chloride Carbon Dioxide BUN Creatinine Glucose POC Glucose 115 H Calcium Albumin C-Reactive Protein Lipase 155 H PTH Intact Urine WBC (Auto) Urine Creatinine Urine Total Protein Chest x-ray: image reviewed Allied health notes reviewed: nursing
[2020-02-28] MEDS ORDERED: IPRATROPIUM/ALBUTEROL SULFATE 3 ML AMPUL.NEB IH SCH (14:00)
[2020-02-28] MEDS: hydrALAZINE 25 MG TAB PO SCH ×2 (14:16→21:07)
[2020-02-28] MEDS: SODIUM BICARBONATE 650 MG TAB PO SCH ×2 (14:16→21:07)
[2020-02-28 19:46] LABS: ABG Base Excess -10.5 mmol/L (-2.0-3.0); ABG Methemoglobin 0.6 % (0.0-1.5); ABG Oxygen Saturation 98.1 % (95.0-99.0); ABG PCO2 31.2 mm Hg; ABG PH 7.3 pH Units (7.350-7.450); ABG PO2 117.5 mm Hg (80.0-90.0)
[2020-02-29] MEDS: DEXMEDETOMIDINE 400 MCG in SODIUM CHLORIDE 0.9% 100 ML IV SCH ×3 (00:21→10:57)
[2020-02-29] MEDS: PIPERACIL-TAZO 2.25 GM/50 ML 2.25 GM/50 ML BAG IV SCH ×3 (02:44→17:52)
[2020-02-29] MEDS: IPRATROPIUM/ALBUTEROL SULFATE 3 ML AMPUL.NEB IH SCH ×4 (05:13→19:54)
[2020-02-29] MEDS: hydrALAZINE 25 MG TAB PO SCH ×3 (06:06→22:00)
[2020-02-29] MEDS: HEPARIN 5,000 UNIT/1 ML VIAL SUB-Q SCH ×3 (06:50→21:10)
[2020-02-29 06:56] LABS: Myeloperoxidase Antibody <1.0 AI (<1.0)
[2020-02-29] MEDS: SODIUM BICARBONATE 650 MG TAB PO SCH ×3 (08:10→22:00)
--- NOTE | 2020-02-29 08:31 | Progress Note ---
Assessment and Plan Assessment and plan: Patient is severely tachypneic on continuous BiPAP --Acute hypoxic respiratory failure; requiring BiPAP Current Visit: Yes Status: Acute Plan to address problem: Secondary to pancreatitis, lung infiltrate, possible ARDS Oxygen titrate O2 sats to more than 90%, BiPAP as needed. DuoNeb, If no improvement intubate Pulmonary critical following Empiric antibiotics, Follow cultures --Severe metabolic encephalopathy/AMS Current Visit: Yes Status: Acute Plan to address problem: Probably secondary alcohol withdrawal symptoms Treat the underlying cause, neurochecks [place] protocol, supportive care --Possible alcohol withdrawal symptoms; Current Visit: Yes Status: Acute Plan to address problem: Discussed with GI Dr. De La Rosa , agree with CIWA closely monitor , Ativan as needed Continue CIWA protocol --Sepsis secondary to pneumonia ; Current Visit: Yes Status: Acute Plan to address problem: Leukocytosis, tachycardia, tachypnea, fever, infiltrate on chest x-ray Continue Zosyn, follow cultures, ID following -- Acute pancreatitis Current Visit: Yes Status: Acute Plan to address problem: Mild improvement of symptoms Lipase trending down Lipase [id number]. IV fluid and IV pain medication. GI following, possible MRCP Ice chips as needed -- Hypertensive emergency Current Visit: Yes Status: Acute Plan to address problem: Continue Cardene drip, will hold oral antihypertensives Due to worsening pancreatitis with symptoms IV antihypertensives, Closely monitor --JUANIS/worsening renal function Current Visit: Yes Status: Acute Plan to address problem: Vasomotor nephropathy gentle hydration, monitor renal function, avoid nephrotoxins,nephrology following --Severe metabolic acidosis; Current Visit: Yes Status: Acute Plan to address problem: nephrology following --Medical noncompliance Current Visit: Yes Status: Acute Plan to address problem: Counseling done, strongly advised to adhere To the medications, diet, follow-up visits Patient verbalized understanding -- DVT prophylaxis Current Visit: Yes Status: Acute Plan to address problem: Patient placed on subcutaneous heparin. --Obesity; BMI 37.9 Current Visit: Yes Status: Acute Plan to address problem: patient needs weight reduction when medically stable. -- Full code status Current Visit: Yes Status: Acute Follow GI and pulmonary evaluation and recommendations We will closely monitor the patient and adjust the management as needed Plan of care reviewed with the patient and her nurse Closely monitor the patient and adjust management as needed. Patient is critically ill with multiple medical problems Prognosis poor, try to reach the family and update patient's condition The high probability of a clinically significant, sudden or life threatening deterioration of the [GI, CVS, metabolic] system(s) required my full and direct attention, intervention and personal management. The aggregate critical care time was [33] minutes. This time is in addition to time spent performing reported procedures but includes the following: [x] Data Review and interpretation [x] Patient assessment and monitoring of vital signs [x] Documentation [x] Medication orders and management History Interval history: I have seen and examined the patient in ICU this morning Patient is on continuous BiPAP tachypneic, lethargic Restraint for safety, patient is on CIWA protocol Mild distress, vital signs reviewed Hospitalist Physical - Constitutional Vitals: Temp Pulse Resp BP Pulse Ox 100.8 F H 83 34 H 139/76 99 02/29/20 03:32 02/29/20 07:00 02/29/20 07:00 02/29/20 07:00 02/29/20 07:00 General appearance: Present: mild distress, well-nourished, obese, other (Anxious and agitated) - EENT Eyes: Present: PERRL, EOM intact - Neck Neck: Present: supple, normal ROM - Respiratory Respiratory effort: labored Respiratory: bilateral: diminished, rales, rhonchi, negative: wheezing - Cardiovascular Rhythm: regular Heart Sounds: Present: S1 & S2 - Extremities Extremities: no ischemia - Abdominal General gastrointestinal: soft, non-tender, non-distended, normal bowel sounds, other (Obese) - Integumentary Integumentary: Present: clear, warm - Psychiatric Psychiatric: agitated, other (Confused) - Neurologic Neurologic: moves all extremities Results - Labs CBC & Chem 7: 02/27/20 04:18 02/29/20 14:22 Labs: Laboratory Last Values WBC 26.8 K/mm3 (4.5-11.0) H 02/27/20 04:18 RBC 3.76 M/mm3 (3.65-5.03) 02/27/20 04:18 Hgb 7.9 gm/dl (10.1-14.3) L 02/27/20 04:18 Hct 26.3 % (30.3-42.9) L 02/27/20 04:18 MCV 70 fl (79-97) L 02/27/20 04:18 MCH 21 pg (28-32) L 02/27/20 04:18 MCHC 30 % (30-34) 02/27/20 04:18 RDW 18.0 % (13.2-15.2) H 02/27/20 04:18 Plt Count 513 K/mm3 (140-440) H 02/27/20 04:18 Lymph % (Auto) 3.4 % (13.4-35.0) L 02/25/20 03:49 Bacon % (Auto) 5.5 % (0.0-7.3) 02/25/20 03:49 Eos % (Auto) 0.1 % (0.0-4.3) 02/25/20 03:49 Baso % (Auto) 0.2 % (0.0-1.8) 02/25/20 03:49 Lymph # 1.0 K/mm3 (1.2-5.4) L 02/25/20 03:49 Bacon # 1.0 K/mm3 (0.0-0.8) H 02/25/20 03:49 Eos # 0.0 K/mm3 (0.0-0.4) 02/25/20 03:49 Baso # 0.1 K/mm3 (0.0-0.1) 02/25/20 03:49 Seg Neutrophils % Instrument Mechanic 02/25/20 03:49 Seg Neutrophils # 26.4 K/mm3 (1.8-7.7) H 02/25/20 03:49 PT 13.7 Sec. (12.2-14.9) 02/25/20 03:49 INR 1.03 (0.87-1.13) 02/25/20 03:49 ABG pH 7.300 pH Units (7.350-7.450) L 02/28/20 19:39 ABG pCO2 31.2 mm Hg 02/28/20 19:39 POC ABG pO2 76.2 mmHg (83-108) L 02/28/20 11:05 ABG pO2 117.5 mm Hg (80.0-90.0) H 02/28/20 19:39 ABG HCO3 15.0 mmol/L (20.0-26.0) L 02/28/20 19:39 ABG O2 Saturation 98.1 % (95.0-99.0) 02/28/20 19:39 ABG O2 Content 8.9 (0.0-44) 02/28/20 19:39 ABG Base Excess -10.5 mmol/L (-2.0-3.0) L 02/28/20 19:39 ABG Hemoglobin 6.4 gm/dl (12.0-16.0) L 02/28/20 19:39 ABG Carboxyhemoglobin 1.8 % (0.0-5.0) 02/28/20 19:39 ABG Methemoglobin 0.6 % (0.0-1.5) 02/28/20 19:39 Oxyhemoglobin 95.8 % (95.0-99.0) 02/28/20 19:39 Carboxyhemoglobin 0.7 (0.5-1.5) 02/28/20 11:05 FiO2 50 % 02/28/20 19:39 Sodium 138 mmol/L (137-145) 02/28/20 05:07 Potassium 4.2 mmol/L (3.6-5.0) 02/28/20 05:07 Chloride 99.2 mmol/L (98-107) 02/28/20 05:07 Carbon Dioxide 14 mmol/L (22-30) L 02/28/20 05:07 Anion Gap 29 mmol/L 02/28/20 05:07 BUN 60 mg/dL (7-17) H 02/28/20 05:07 Creatinine 4.2 mg/dL (0.6-1.2) H 02/28/20 05:07 Estimated GFR 14 ml/min 02/28/20 05:07 BUN/Creatinine Ratio 14 % 02/28/20 05:07 Glucose 98 mg/dL (65-100) 02/28/20 05:07 POC Glucose 65 (70-105) L 02/29/20 05:45 Lactic Acid 0.90 mmol/L (0.7-2.0) 02/27/20 19:33 Calcium 8.2 mg/dL (8.4-10.2) L 02/28/20 05:07 Phosphorus 2.50 mg/dL (2.5-4.5) 02/26/20 04:39 Magnesium 1.80 mg/dL (1.7-2.3) 02/26/20 04:39 Total Bilirubin 0.70 mg/dL (0.1-1.2) 02/27/20 04:18 AST 22 units/L (5-40) 02/27/20 04:18 ALT 9 units/L (7-56) 02/27/20 04:18 Alkaline Phosphatase 102 units/L (35-129) 02/27/20 04:18 C-Reactive Protein 37.30 mg/dL (0.00-1.30) H 02/27/20 04:18 Total Protein 6.9 g/dL (6.3-8.2) 02/27/20 04:18 Albumin 3.0 g/dL (3.9-5) L 02/27/20 04:18 Albumin/Globulin Ratio 0.8 % 02/27/20 04:18 Triglycerides 118 mg/dL (2-149) 02/26/20 04:39 Lipase 155 units/L (13-60) H 02/28/20 05:07 HCG, Qual Negative (Negative) 02/24/20 02:53 PTH Intact 911.3 pg/mL (15-65) H 02/26/20 08:15 Urine Color Yellow (Yellow) 02/24/20 Unknown Urine Turbidity Clear (Clear) 02/24/20 Unknown Urine pH 6.0 (5.0-7.0) 02/24/20 Unknown Ur Specific [place] 1.020 (1.003-1.030) 02/24/20 Unknown Urine Protein >500 mg/dL (Negative) 02/24/20 Unknown Urine Glucose (UA) 50 mg/dL (Negative) 02/24/20 Unknown Urine Ketones Neg mg/dL (Negative) 02/24/20 Unknown Urine Blood Lg (Negative) 02/24/20 Unknown Urine Nitrite Neg (Negative) 02/24/20 Unknown Urine Bilirubin Neg (Negative) 02/24/20 Unknown Urine Urobilinogen < 2.0 mg/dL (<2.0) 02/24/20 Unknown Ur Leukocyte Esterase Neg (Negative) 02/24/20 Unknown Urine WBC (Auto) 11.0 /HPF (0.0-6.0) H 02/24/20 Unknown Urine RBC (Auto) 149.0 /HPF (0.0-6.0) 02/24/20 Unknown U Epithel Cells (Auto) 5.0 /HPF (0-13.0) 02/24/20 Unknown Urine Bacteria (Auto) 1+ /HPF (Negative) 02/24/20 Unknown Urine Mucus Few /HPF 02/24/20 Unknown Urine Creatinine 161.0 mg/dL (0.1-20.0) H 02/25/20 22:55 Protein/Creatinin Ratio 0.93 02/25/20 22:55 Urine Total Protein 150 mg/dL (5-11.8) H 02/25/20 22:55 Proteinase 3 (PR3) Ab <1.0 AI (<1.0) 02/26/20 04:39 Myeloperoxidase Ab <1.0 AI (<1.0) 02/26/20 04:39 Microbiology: Microbiology 02/26/20 18:56 Peripheral/Venous Blood Culture - Preliminary NO GROWTH AFTER 48 HOURS 02/26/20 18:56 Peripheral/Venous Blood Culture - Preliminary NO GROWTH AFTER 48 HOURS 02/26/20 17:00 Urine,Catheterized - Straight Catheter Urine Culture - Preliminary NO GROWTH AFTER 24 HOURS - Diagnostic Impressions Diagnostic Impressions: Echocardiogram 02/26/20 09:11 Transthoracic Echocardiogram Indication: Cardiomegaly BP: 149/92 HR: 122 Conclusions *Global left ventricular systolic function is normal. *The estimated ejection fraction is 60-65%. *Moderate to severe concentric left ventricular hypertrophy is observed. *The left atrium is mild to moderately dilated. *The aortic valve leaflets are moderately thickened. *A mean gradient of 22.39 mmHg across the outflow tract is likely not due to but hyperdynamic flow and LVH. *There is trace tricuspid regurgitation. Findings Left Ventricle: The left ventricular chamber size is normal. Moderate to severe concentric left ventricular hypertrophy is observed. Global left ventricular systolic function is normal. The estimated ejection fraction is 60-65%. Left Atrium: The left atrium is mild to moderately dilated. Right Ventricle: The right ventricular cavity size is normal. The right ventricular global systolic function is normal. Right Atrium: The right atrial cavity size is normal. Aortic Valve: The aortic valve leaflets are moderately thickened. There is no evidence of aortic regurgitation. The mean gradient of the aortic valve is 22.39 mmHg. Mitral Valve: The mitral valve leaflets are mildly thickened. There is trace of mitral regurgitation. There is no evidence of mitral stenosis. Tricuspid Valve: There is trace tricuspid regurgitation. No pulmonary hypertension is noted. Pulmonic Valve: There is trace pulmonic regurgitation. Pericardium: There is no pericardial effusion. Aorta: There is no dilatation of the ascending aorta. There is no dilatation of the aortic root. Venous: The inferior vena cava appears normal in size. Measurements Chambers 2D Name Value Normal Range IVSd (2D) 1.8 cm (0.6 - 1.1) LVPWd (2D) 1.74 cm (0.6 - 1.1) LVIDd (2D) 4.57 cm (3.7 - 5.6) LVIDs (2D) 2.73 cm (2 - 3.8) LV FS (2D) 40.27 % - EF Teichholz (2D) 71.04 % - Ao root diameter (2D) 2.79 cm (2 - 3.7) Volumes/Mass Name Value Normal Range LA ESV SP 4CH (A/L) 54.18 ml - LA ESV SP 2CH (A/L) 61.84 ml - LA ESV BP (A/L) 58.1 ml - LA ESV BP (A/L) index 30.74 ml/m2 - LA ESV SP 4CH (MOD) 52.89 ml - LA ESV SP 2CH (MOD) 60.65 ml - LA ESV BP (MOD) 56.77 ml - LA ESV BP (MOD) index 30.04 ml/m2 - LV EDV SP 4CH (MOD) 164.2 ml - LV ESV SP 4CH (MOD) 58.04 ml - EF SP 4CH (MOD) 64.65 % - Diastolic/Systolic Function Name Value Normal Range MV E-wave Vmax 1.38 m/sec - MV deceleration time 92.78 msec - MV A-wave Vmax 1.44 m/sec - MV E:A ratio 0.95 ratio - Aortic Valve Name Value Normal Range AV Vmax 3.08 m/sec - AV VTI 36.74 cm - AV peak gradient 37.98 mmHg - AV mean gradient 22.39 mmHg - LVOT diameter 2.01 cm - LVOT Vmax 2.45 m/sec - LVOT VTI 29.85 cm - LVOT peak gradient 24.04 mmHg - LVOT mean gradient 11.11 mmHg - SV LVOT 94.73 ml - JADA (continuity Vmax) 2.52 cm2 - JADA (continuity VTI) 2.58 cm2 - Ascending Ao 2.64 cm - Mitral Valve Name Value Normal Range MV PHT 37.88 msec - MVA (PHT) 5.81 cm2 - Tricuspid Valve Name Value Normal Range IVC diameter 1.93 cm (1.2 - 2.3) Pulmonic Valve/Qp:Qs Name Value Normal Range PV Vmax 2.83 m/sec - PV VTI 45.88 cm - PV peak gradient 32.06 mmHg - PV mean gradient 16.11 mmHg - MI end-diastolic Vmax 0.81 m/sec - RVOT Vmax 1.82 m/sec - RVOT VTI 25.12 cm - RVOT peak gradient 13.3 mmHg - Franks/IV: Voiding Method External Female Catheter IV Catheter Type [Right INT / Saline Lock Forearm] IV Catheter Type [Right Wrist] Peripheral IV IV Catheter Type [Right Peripheral IV Antecubital] Active Medications - Current Medications Current Medications: Generic Name Dose Route Start Last Admin Trade Name Freq PRN Reason Stop Dose Admin Acetaminophen 650 mg 02/26/20 16:23 02/26/20 16:37 Tylenol PO 650 mg Q4H PRN Administration Pain, Mild (1-3)/ Temp >100. Albuterol 2.5 mg 02/27/20 17:55 Proventil IH Q4HRT PRN Shortness Of Breath Albuterol/Ipratropium 1 ampul 02/28/20 12:17 02/29/20 05:13 Duoneb *Not For Prn Use* IH 1 ampul Q6HRT INDU Administration Amlodipine Besylate 10 mg 02/28/20 10:00 02/28/20 09:36 Amlodipine PO 10 mg QDAY INDU Administration Dextrose 50 ml 02/29/20 08:00 D50w (25gm) Syringe IV Q30MIN PRN HYPOGLYCEMIA Protocol Haloperidol Lactate 5 mg 02/28/20 11:30 02/28/20 11:51 Haldol IV 5 mg Q1H PRN Administration Unrespon. to mult. doses BZD's Heparin Sodium (Porcine) 5,000 unit 02/24/20 14:00 02/29/20 06:50 Heparin SUB-Q 5,000 unit Q8HR INDU Administration Hydralazine HCl 50 mg 02/28/20 14:00 02/29/20 06:06 Apresoline PO Not Given Q8HR INDU Nicardipine HCl 50 mg/ Sodium 250 mls @ 25 mls/hr 02/24/20 07:00 02/28/20 12:51 Chloride IV 0 mg/hr TITR INDU 0 mls/hr Titration Protocol 5 MG/HR Piperacillin Sod/Tazobactam Sod 2.25 gm in 50 mls @ 100 mls/hr 02/26/20 18:30 02/29/20 02:44 Zosyn/Ns 2.25 Gm/50ml IV 100 mls/hr Q8H INDU Administration Protocol Dexmedetomidine HCl 400 mcg/ 104 mls @ 16.562 mls/hr 02/28/20 13:00 02/29/20 05:30 Sodium Chloride IV 0.9 mcg/kg/hr TITRATE INDU 21.294 mls/hr Administration Protocol 0.7 MCG/KG/HR Labetalol HCl 10 mg 02/28/20 09:00 Labetalol IV Q4H PRN Hypertension Lorazepam 1 mg 02/28/20 04:20 02/28/20 11:05 Ativan IV 1 mg Q4H PRN Administration Agitation Lorazepam 2 mg 02/28/20 11:30 Ativan IV Q1H PRN CIWA-Ar 8-15 Lorazepam 4 mg 02/28/20 11:30 02/28/20 21:02 Ativan IV 4 mg Q1H PRN Administration CIWA-Ar 16-25 Metoprolol Tartrate 25 mg 02/28/20 10:00 02/28/20 21:07 Metoprolol PO Not Given BID INDU Ondansetron HCl 4 mg 02/24/20 06:45 02/25/20 23:33 Zofran IV 4 mg Q8H PRN Administration Nausea And Vomiting Pantoprazole Sodium 40 mg 02/24/20 13:00 02/28/20 09:36 Protonix IV 40 mg QDAY INDU Administration Sodium Bicarbonate 650 mg 02/28/20 14:00 02/28/20 21:07 Sodium Bicarbonate PO Not Given TID INDU Sodium Chloride 10 ml 02/24/20 10:00 02/28/20 21:07 Sodium Chloride Flush Syringe 10 Ml IV 10 ml BID INDU Administration Sodium Chloride 10 ml 02/24/20 06:45 Sodium Chloride Flush Syringe 10 Ml IV PRN PRN LINE FLUSH Nutrition/Malnutrition Assess - Dietary Evaluation Nutrition/Malnutrition Findings: Nutrition Notes Start: 02/24/20 13:4 2 Freq: Status: Active Protocol: Document 02/28/20 14:09 [email or web address] (Rec: 02/28/20 14:51 [email or web address]) Co-Sign 02/28/20 14:09 LP Nutrition Notes Initial or Follow up Reassessment Current Diagnosis Acute Kidney Injury, Hypertension,Hyperlipidemia Other Pertinent Diagnosis Acute pancreatitis Current Diet Clear Liquids Labs/Tests BUN 60 Cr 4.2 Lipase 155 Pertinent Medications Reviewed Height 5 ft 1 in Weight 91 kg [place] Body Weight (kg) 47.72 BMI 37.9 Weight Status Obese Subjective/Other Information F/U for diet advancement. Per RN, Pt on Bipap and no intakes . Pt combative and unable to give education. Percent of energy/protein needs met: 0%/0% Burn Absent Trauma Absent GI Symptoms None Current % PO Negligible Minimum of two criteria No physical signs of malnutrition Fluid Accumulation Moderate to Severe (severe) #2 Nutrition Diagnosis Inadequate oral intake Diagnosis Progress(for reassessment Continues documentation) #1 Nutrition Diagnosis Food and nutrition-related knowledge deficit Diagnosis Progress(for reassessment Continues documentation) Is patient on ventilator? No Is Patient Ambulatory and/or Out of Bed Yes REE-([facility]-ambulatory/OOB) [ 1972.594 [id number]] Kcal/Kg value to use for calculation 16 Approximate Energy Requirements Using 1456 kcal/Kg Calculation Used for Recommendations Kcal/kg Additional Notes Pro: 55-82.8 (0.8-1.2g/kg AdjBW 69kg) Fluid: 1ml/kcal Nutrition Intervention Change Diet Order: advance diet when medically feasible Add Supplement/Snack (indicate name/kcal Ensure Clear TID /protein ) Provides kCal: 720 Provides Protein (gm) 24 Goal #1 Diet advancement Anticipated Discharge Needs: Undetermined at this time Follow-Up By: 03/03/20 Additional Comments F/U for diet advancement and intakes
[2020-02-29] MEDS: PANTOPRAZOLE 40 MG INJ IV SCH (10:51)
[2020-02-29] MEDS: amLODIPine 10 MG TAB PO SCH (11:00)
[2020-02-29] MEDS: METOPROLOL TARTRATE 25 MG TAB PO SCH ×2 (11:00→22:00)
[2020-02-29] MEDS: LORazepam 2 MG/ML VIAL IV PRN ×2 (11:43→16:19)
[2020-02-29] MEDS: DEXTROSE 50% IN WATER (25GM) 50 ML SYRINGE IV PRN (12:18)
--- NOTE | 2020-02-29 14:16 | Progress Note ---
Hospitalist Physical - Constitutional Vitals: Temp Pulse Resp BP Pulse Ox 99.0 F 81 40 H 139/85 99 02/29/20 12:00 02/29/20 13:51 02/29/20 13:51 02/29/20 13:51 02/29/20 13:51 General appearance: Present: mild distress, well-nourished, obese - EENT Eyes: Present: PERRL, EOM intact - Neck Neck: Present: supple, normal ROM - Respiratory Respiratory effort: normal Respiratory: bilateral: diminished, negative: rales, rhonchi, wheezing - Cardiovascular Rhythm: regular Heart Sounds: Present: S1 & S2 - Extremities Extremities: no ischemia, No edema - Abdominal General gastrointestinal: soft, non-tender, non-distended, normal bowel sounds - Integumentary Integumentary: Present: clear, warm - Psychiatric Psychiatric: cooperative - Neurologic Neurologic: moves all extremities Results - Labs CBC & Chem 7: 02/27/20 04:18 02/28/20 05:07 Labs: Laboratory Last Values WBC 26.8 K/mm3 (4.5-11.0) H 02/27/20 04:18 RBC 3.76 M/mm3 (3.65-5.03) 02/27/20 04:18 Hgb 7.9 gm/dl (10.1-14.3) L 02/27/20 04:18 Hct 26.3 % (30.3-42.9) L 02/27/20 04:18 MCV 70 fl (79-97) L 02/27/20 04:18 MCH 21 pg (28-32) L 02/27/20 04:18 MCHC 30 % (30-34) 02/27/20 04:18 RDW 18.0 % (13.2-15.2) H 02/27/20 04:18 Plt Count 513 K/mm3 (140-440) H 02/27/20 04:18 Lymph % (Auto) 3.4 % (13.4-35.0) L 02/25/20 03:49 [place] % (Auto) 5.5 % (0.0-7.3) 02/25/20 03:49 Eos % (Auto) 0.1 % (0.0-4.3) 02/25/20 03:49 Baso % (Auto) 0.2 % (0.0-1.8) 02/25/20 03:49 Lymph # 1.0 K/mm3 (1.2-5.4) L 02/25/20 03:49 Peach # 1.0 K/mm3 (0.0-0.8) H 02/25/20 03:49 Eos # 0.0 K/mm3 (0.0-0.4) 02/25/20 03:49 Baso # 0.1 K/mm3 (0.0-0.1) 02/25/20 03:49 Seg Neutrophils % [employer] 02/25/20 03:49 Seg Neutrophils # 26.4 K/mm3 (1.8-7.7) H 02/25/20 03:49 PT 13.7 Sec. (12.2-14.9) 02/25/20 03:49 INR 1.03 (0.87-1.13) 02/25/20 03:49 ABG pH 7.212 (7.320-7.450) L 02/29/20 12:31 POC ABG pCO2 36.5 mmHg (32.0-48.0) 02/29/20 12:31 ABG pCO2 31.2 mm Hg 02/28/20 19:39 POC ABG pO2 93.4 mmHg (83-108) 02/29/20 12:31 ABG pO2 117.5 mm Hg (80.0-90.0) H 02/28/20 19:39 POC ABG HCO3 14.3 02/29/20 12:31 ABG HCO3 15.0 mmol/L (20.0-26.0) L 02/28/20 19:39 ABG O2 Saturation 98.1 % (95.0-99.0) 02/28/20 19:39 ABG O2 Content 8.9 (0.0-44) 02/28/20 19:39 POC ABG Base Excess -12.5 02/29/20 12:31 ABG Base Excess -10.5 mmol/L (-2.0-3.0) L 02/28/20 19:39 ABG Hemoglobin 7.4 (12.0-17.5) L 02/29/20 12:31 ABG Carboxyhemoglobin 1.8 % (0.0-5.0) 02/28/20 19:39 ABG Methemoglobin 0.6 % (0.0-1.5) 02/28/20 19:39 Oxyhemoglobin 95.8 % (95.0-99.0) 02/28/20 19:39 Carboxyhemoglobin 0.7 (0.5-1.5) 02/28/20 11:05 FiO2 35.0 02/29/20 12:31 Sodium 138 mmol/L (137-145) 02/28/20 05:07 Potassium 4.2 mmol/L (3.6-5.0) 02/28/20 05:07 Chloride 99.2 mmol/L (98-107) 02/28/20 05:07 Carbon Dioxide 14 mmol/L (22-30) L 02/28/20 05:07 Anion Gap 29 mmol/L 02/28/20 05:07 BUN 60 mg/dL (7-17) H 02/28/20 05:07 Creatinine 4.2 mg/dL (0.6-1.2) H 02/28/20 05:07 Estimated GFR 14 ml/min 02/28/20 05:07 BUN/Creatinine Ratio 14 % 02/28/20 05:07 Glucose 98 mg/dL (65-100) 02/28/20 05:07 POC Glucose 64 (70-105) L 02/29/20 12:04 Lactic Acid 0.90 mmol/L (0.7-2.0) 02/27/20 19:33 Calcium 8.2 mg/dL (8.4-10.2) L 02/28/20 05:07 Phosphorus 2.50 mg/dL (2.5-4.5) 02/26/20 04:39 Magnesium 1.80 mg/dL (1.7-2.3) 02/26/20 04:39 Total Bilirubin 0.70 mg/dL (0.1-1.2) 02/27/20 04:18 AST 22 units/L (5-40) 02/27/20 04:18 ALT 9 units/L (7-56) 02/27/20 04:18 Alkaline Phosphatase 102 units/L (35-129) 02/27/20 04:18 C-Reactive Protein 37.30 mg/dL (0.00-1.30) H 02/27/20 04:18 Total Protein 6.9 g/dL (6.3-8.2) 02/27/20 04:18 Albumin 3.0 g/dL (3.9-5) L 02/27/20 04:18 Albumin/Globulin Ratio 0.8 % 02/27/20 04:18 Triglycerides 118 mg/dL (2-149) 02/26/20 04:39 Lipase 155 units/L (13-60) H 02/28/20 05:07 HCG, Qual Negative (Negative) 02/24/20 02:53 PTH Intact 911.3 pg/mL (15-65) H 02/26/20 08:15 Urine Color Yellow (Yellow) 02/24/20 Unknown Urine Turbidity Clear (Clear) 02/24/20 Unknown Urine pH 6.0 (5.0-7.0) 02/24/20 Unknown Ur Specific [place] 1.020 (1.003-1.030) 02/24/20 Unknown Urine Protein >500 mg/dL (Negative) 02/24/20 Unknown Urine Glucose (UA) 50 mg/dL (Negative) 02/24/20 Unknown Urine Ketones Neg mg/dL (Negative) 02/24/20 Unknown Urine Blood Lg (Negative) 02/24/20 Unknown Urine Nitrite Neg (Negative) 02/24/20 Unknown Urine Bilirubin Neg (Negative) 02/24/20 Unknown Urine Urobilinogen < 2.0 mg/dL (<2.0) 02/24/20 Unknown Ur Leukocyte Esterase Neg (Negative) 02/24/20 Unknown Urine WBC (Auto) 11.0 /HPF (0.0-6.0) H 02/24/20 Unknown Urine RBC (Auto) 149.0 /HPF (0.0-6.0) 02/24/20 Unknown U Epithel Cells (Auto) 5.0 /HPF (0-13.0) 02/24/20 Unknown Urine Bacteria (Auto) 1+ /HPF (Negative) 02/24/20 Unknown Urine Mucus Few /HPF 02/24/20 Unknown Urine Creatinine 161.0 mg/dL (0.1-20.0) H 02/25/20 22:55 Protein/Creatinin Ratio 0.93 02/25/20 22:55 Urine Total Protein 150 mg/dL (5-11.8) H 02/25/20 22:55 Proteinase 3 (PR3) Ab <1.0 AI (<1.0) 02/26/20 04:39 Myeloperoxidase Ab <1.0 AI (<1.0) 02/26/20 04:39 Microbiology: Microbiology 02/26/20 17:00 Urine,Catheterized - Straight Catheter Urine Culture - Final NO GROWTH AFTER 48 HOURS 02/26/20 18:56 Peripheral/Venous Blood Culture - Preliminary NO GROWTH AFTER 48 HOURS 02/26/20 18:56 Peripheral/Venous Blood Culture - Preliminary NO GROWTH AFTER 48 HOURS - Diagnostic Impressions Diagnostic Impressions: Echocardiogram 02/26/20 09:11 Transthoracic Echocardiogram Indication: Cardiomegaly BP: 149/92 HR: 122 Conclusions *Global left ventricular systolic function is normal. *The estimated ejection fraction is 60-65%. *Moderate to severe concentric left ventricular hypertrophy is observed. *The left atrium is mild to moderately dilated. *The aortic valve leaflets are moderately thickened. *A mean gradient of 22.39 mmHg across the outflow tract is likely not due to but hyperdynamic flow and LVH. *There is trace tricuspid regurgitation. Findings Left Ventricle: The left ventricular chamber size is normal. Moderate to severe concentric left ventricular hypertrophy is observed. Global left ventricular systolic function is normal. The estimated ejection fraction is 60-65%. Left Atrium: The left atrium is mild to moderately dilated. Right Ventricle: The right ventricular cavity size is normal. The right ventricular global systolic function is normal. Right Atrium: The right atrial cavity size is normal. Aortic Valve: The aortic valve leaflets are moderately thickened. There is no evidence of aortic regurgitation. The mean gradient of the aortic valve is 22.39 mmHg. Mitral Valve: The mitral valve leaflets are mildly thickened. There is trace of mitral regurgitation. There is no evidence of mitral stenosis. Tricuspid Valve: There is trace tricuspid regurgitation. No pulmonary hypertension is noted. Pulmonic Valve: There is trace pulmonic regurgitation. Pericardium: There is no pericardial effusion. Aorta: There is no dilatation of the ascending aorta. There is no dilatation of the aortic root. Venous: The inferior vena cava appears normal in size. Measurements Chambers 2D Name Value Normal Range IVSd (2D) 1.8 cm (0.6 - 1.1) LVPWd (2D) 1.74 cm (0.6 - 1.1) LVIDd (2D) 4.57 cm (3.7 - 5.6) LVIDs (2D) 2.73 cm (2 - 3.8) LV FS (2D) 40.27 % - EF Teichholz (2D) 71.04 % - Ao root diameter (2D) 2.79 cm (2 - 3.7) Volumes/Mass Name Value Normal Range LA ESV SP 4CH (A/L) 54.18 ml - LA ESV SP 2CH (A/L) 61.84 ml - LA ESV BP (A/L) 58.1 ml - LA ESV BP (A/L) index 30.74 ml/m2 - LA ESV SP 4CH (MOD) 52.89 ml - LA ESV SP 2CH (MOD) 60.65 ml - LA ESV BP (MOD) 56.77 ml - LA ESV BP (MOD) index 30.04 ml/m2 - LV EDV SP 4CH (MOD) 164.2 ml - LV ESV SP 4CH (MOD) 58.04 ml - EF SP 4CH (MOD) 64.65 % - Diastolic/Systolic Function Name Value Normal Range MV E-wave Vmax 1.38 m/sec - MV deceleration time 92.78 msec - MV A-wave Vmax 1.44 m/sec - MV E:A ratio 0.95 ratio - Aortic Valve Name Value Normal Range AV Vmax 3.08 m/sec - AV VTI 36.74 cm - AV peak gradient 37.98 mmHg - AV mean gradient 22.39 mmHg - LVOT diameter 2.01 cm - LVOT Vmax 2.45 m/sec - LVOT VTI 29.85 cm - LVOT peak gradient 24.04 mmHg - LVOT mean gradient 11.11 mmHg - SV LVOT 94.73 ml - JADA (continuity Vmax) 2.52 cm2 - JADA (continuity VTI) 2.58 cm2 - Ascending Ao 2.64 cm - Mitral Valve Name Value Normal Range MV PHT 37.88 msec - MVA (PHT) 5.81 cm2 - Tricuspid Valve Name Value Normal Range IVC diameter 1.93 cm (1.2 - 2.3) Pulmonic Valve/Qp:Qs Name Value Normal Range PV Vmax 2.83 m/sec - PV VTI 45.88 cm - PV peak gradient 32.06 mmHg - PV mean gradient 16.11 mmHg - CA end-diastolic Vmax 0.81 m/sec - RVOT Vmax 1.82 m/sec - RVOT VTI 25.12 cm - RVOT peak gradient 13.3 mmHg - Franks/IV: Voiding Method External Female Catheter IV Catheter Type [Right INT / Saline Lock Forearm] IV Catheter Type [Right Wrist] Peripheral IV IV Catheter Type [Right Peripheral IV Antecubital] Active Medications - Current Medications Current Medications: Generic Name Dose Route Start Last Admin Trade Name Freq PRN Reason Stop Dose Admin Acetaminophen 650 mg 02/26/20 16:23 02/26/20 16:37 Tylenol PO 650 mg Q4H PRN Administration Pain, Mild (1-3)/ Temp >100. Albuterol 2.5 mg 02/27/20 17:55 Proventil IH Q4HRT PRN Shortness Of Breath Albuterol/Ipratropium 1 ampul 02/28/20 12:17 02/29/20 10:20 Duoneb *Not For Prn Use* IH Not Given Q6HRT INDU Amlodipine Besylate 10 mg 02/28/20 10:00 02/29/20 11:00 Amlodipine PO 10 mg QDAY INDU Administration Dextrose 50 ml 02/29/20 08:00 02/29/20 12:18 D50w (25gm) Syringe IV 15 ml Q30MIN PRN Administration HYPOGLYCEMIA Protocol Haloperidol Lactate 5 mg 02/28/20 11:30 02/28/20 11:51 Haldol IV 5 mg Q1H PRN Administration Unrespon. to mult. doses BZD's Heparin Sodium (Porcine) 5,000 unit 02/24/20 14:00 02/29/20 06:50 Heparin SUB-Q 5,000 unit Q8HR INDU Administration Hydralazine HCl 50 mg 02/28/20 14:00 02/29/20 06:06 Apresoline PO Not Given Q8HR INDU Nicardipine HCl 50 mg/ Sodium 250 mls @ 25 mls/hr 02/24/20 07:00 02/28/20 12:51 Chloride IV 0 mg/hr TITR INDU 0 mls/hr Titration Protocol 5 MG/HR Piperacillin Sod/Tazobactam Sod 2.25 gm in 50 mls @ 100 mls/hr 02/26/20 18:30 02/29/20 10:59 Zosyn/Ns 2.25 Gm/50ml IV 100 mls/hr Q8H INDU Administration Protocol Dexmedetomidine HCl 400 mcg/ 104 mls @ 16.562 mls/hr 02/28/20 13:00 02/29/20 10:57 Sodium Chloride IV 0.9 mcg/kg/hr TITRATE INDU 21.294 mls/hr Administration Protocol 0.7 MCG/KG/HR Labetalol HCl 10 mg 02/28/20 09:00 Labetalol IV Q4H PRN Hypertension Lorazepam 1 mg 02/28/20 04:20 02/28/20 11:05 Ativan IV 1 mg Q4H PRN Administration Agitation Lorazepam 2 mg 02/28/20 11:30 02/29/20 11:43 Ativan IV 2 mg Q1H PRN Administration CIWA-Ar 8-15 Lorazepam 4 mg 02/28/20 11:30 02/28/20 21:02 Ativan IV 4 mg Q1H PRN Administration CIWA-Ar 16-25 Metoprolol Tartrate 25 mg 02/28/20 10:00 02/29/20 11:00 Metoprolol PO 25 mg BID INDU Administration Ondansetron HCl 4 mg 02/24/20 06:45 02/25/20 23:33 Zofran IV 4 mg Q8H PRN Administration Nausea And Vomiting Pantoprazole Sodium 40 mg 02/24/20 13:00 02/29/20 10:51 Protonix IV 40 mg QDAY INDU Administration Sodium Bicarbonate 650 mg 02/28/20 14:00 02/29/20 08:10 Sodium Bicarbonate PO Not Given TID INDU Sodium Chloride 10 ml 02/24/20 10:00 02/29/20 11:00 Sodium Chloride Flush Syringe 10 Ml IV 10 ml BID INDU Administration Sodium Chloride 10 ml 02/24/20 06:45 Sodium Chloride Flush Syringe 10 Ml IV PRN PRN LINE FLUSH Nutrition/Malnutrition Assess - Dietary Evaluation Nutrition/Malnutrition Findings: Nutrition Notes Start: 02/24/20 13:42 Freq: Status: Active Protocol: Document 02/28/20 14:09 [email or web address] (Rec: 02/28/20 14:51 [email or web address]) Co-Sign 02/28/20 14:09 LP Nutrition Notes Initial or Follow up Reassessment Current Diagnosis Acute Kidney Injury, Hypertension,Hyperlipidemia Other Pertinent Diagnosis Acute pancreatitis Current Diet Clear Liquids Labs/Tests BUN 60 Cr 4.2 Lipase 155 Pertinent Medications Reviewed Height 5 ft 1 in Weight 91 kg [place] Body Weight (kg) 47.72 BMI 37.9 Weight Status Obese Subjective/Other Information F/U for diet advancement. Per RN, Pt on Bipap and no intakes . Pt combative and unable to give education. Percent of energy/protein needs met: 0%/0% Burn Absent Trauma Absent GI Symptoms None Current % PO Negligible Minimum of two criteria No physical signs of malnutrition Fluid Accumulation Moderate to Severe (severe) #2 Nutrition Diagnosis Inadequate oral intake Diagnosis Progress(for reassessment Continues documentation) #1 Nutrition Diagnosis Food and nutrition-related knowledge deficit Diagnosis Progress(for reassessment Continues documentation) Is patient on ventilator? No Is Patient Ambulatory and/or Out of Bed Yes REE-([facility]-ambulatory/OOB) [ 1972.594 [id number]] Kcal/Kg value to use for calculation 16 Approximate Energy Requirements Using 1456 kcal/Kg Calculation Used for Recommendations Kcal/kg Additional Notes Pro: 55-82.8 (0.8-1.2g/kg AdjBW 69kg) Fluid: 1ml/kcal Nutrition Intervention Change Diet Order: advance diet when medically feasible Add Supplement/Snack (indicate name/kcal Ensure Clear TID /protein ) Provides kCal: 720 Provides Protein (gm) 24 Goal #1 Diet advancement Anticipated Discharge Needs: Undetermined at this time Follow-Up By: 03/03/20 Additional Comments F/U for diet advancement and intakes
[2020-02-29] MEDS ORDERED: SODIUM BICARB 8.4% 50 MEQ/50 ML SYRINGE IV ONE (15:01)
[2020-02-29 15:08] LABS: Albumin 2.3 g/dL (3.9-5); Bilirubin,Direct 0.2 mg/dL (0-0.2)
[2020-02-29] MEDS ORDERED: LIP THERAPY VASELINE TP PRN (15:35)
[2020-02-29] MEDS ORDERED: MINERAL OIL/PETROLATUM, WHITE OPHTH OINT 3.5 GM OU PRN (15:35)
--- NOTE | 2020-02-29 15:58 | XRay Report ---
ABDOMEN AP SUPINE 1509 INDICATION: NGT placement COMPARISON: None available. FINDINGS: Nasogastric tube extends well into the stomach. Signer Name: Inderjit Hammond MD Signed: 02/29/2020 3:53 PM Workstation Name: [id number]
[2020-02-29] MEDS: fentaNYL 100 MCG/2 ML INJ IV PRN (16:10)
[2020-02-29] MEDS: MIDAZOLAM 2 MG/2 ML INJ IV PRN ×2 (16:17→17:00)
[2020-02-29] MEDS ORDERED: FUROSEMIDE 100 MG/10 ML INJ IV ONE (16:19)
--- NOTE | 2020-02-29 16:22 | Progress Note ---
Assessment and Plan # Acute Kidney Injury/Chronic Kidney Disease: suspect JUANIS in setting of hypertensive urgency and pre-renal injury from pancreatitis. Additional JUANIS risk factors include use of NSAID (Toradol) and PPI. 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 Creatinine has worsened from 1.7->3.0->3.1->3.4->4.2->4.7 since admission, with ongoing clinical deterioration - will trial diuretic stress test, Lasix 80mg IV x1 yesterday, decent response noted, will trial 120mg x1 now, given respiratory status and worsening renal function. No indication for renal replacement therapy currently, non-oliguric - avoid NSAIDs as able - consider alternative to PPI if able - IVF as tolerated - strict Is/Os - ordered serologies-> ANCA negative; minimal proteinuria per UP/C, PTH high for CKD; reviewed urinalysis which does show hematuria and proteinuria - BP control as below # Hypertensive Emergency: BPs improved, off Cardene gtt, agree to titrate back to home amlodipine, metoprolol. On HANNA-I at home, hold for now. Did discuss importance of medication and diet compliance # Acidosis: continue po HCO3 # Pancreatitis: appreciate GI, pain management per primary. MRCP pending # Thrombocytosis # Leukocytosis Subjective Date of service: 02/29/20 Principal diagnosis: HTNsive urgency; Morbid obesity; Ac. pancreatitis; Abdominal pain Interval history: Remains on Bipap today. Objective - Exam Narrative Exam: General appearance: anxious, agitated, ill appearing on Bipap Eyes: anicteric sclerae HENT: Atraumatic; oropharynx Lungs: Clear to auscultation bilaterally CV: RRR, no murmur Abdomen: Tense Extremities: no edema Skin: No rash. Psych: awake now Neuro: drowsy and unable to communicate. Moving all extermities - Vital Signs Vital signs: Vital Signs - 12hr 02/29/20 02/29/20 02/29/20 04:30 04:45 05:00 Temperature Pulse Rate 81 81 82 Respiratory 32 H 34 H 32 H Rate Blood Pressure 128/73 125/60 116/72 O2 Sat by Pulse 100 100 100 Oximetry 02/29/20 02/29/20 02/29/20 05:15 05:31 05:45 Temperature Pulse Rate 80 81 82 Respiratory 31 H 31 H 32 H Rate Blood Pressure 119/74 122/74 130/79 O2 Sat by Pulse 100 100 99 Oximetry 02/29/20 02/29/20 02/29/20 06:00 06:15 06:30 Temperature Pulse Rate 88 81 80 Respiratory 29 H 34 H 32 H Rate Blood Pressure 142/88 131/78 124/75 O2 Sat by Pulse 99 99 99 Oximetry 02/29/20 02/29/20 02/29/20 06:45 07:00 07:15 Temperature Pulse Rate 88 83 82 Respiratory 34 H 34 H 33 H Rate Blood Pressure 117/75 139/76 123/71 O2 Sat by Pulse 100 99 100 Oximetry 02/29/20 02/29/20 02/29/20 07:30 07:45 08:00 Temperature 99.3 F Pulse Rate 82 82 81 Respiratory 33 H 33 H 35 H Rate Blood Pressure 126/75 134/78 124/72 O2 Sat by Pulse 100 100 100 Oximetry 02/29/20 02/29/20 02/29/20 08:15 08:23 08:31 Temperature Pulse Rate 80 85 97 H Respiratory 34 H 33 H 46 H Rate Blood Pressure 128/72 128/72 165/97 O2 Sat by Pulse 100 0 L 98 Oximetry 02/29/20 02/29/20 02/29/20 08:45 09:00 09:15 Temperature Pulse Rate 81 80 80 Respiratory 37 H 40 H 35 H Rate Blood Pressure 129/79 135/72 128/72 O2 Sat by Pulse 99 99 99 Oximetry 02/29/20 02/29/20 02/29/20 09:30 09:45 10:00 Temperature Pulse Rate 81 84 81 Respiratory 35 H 38 H 35 H Rate Blood Pressure 129/75 140/74 139/88 O2 Sat by Pulse 99 99 99 Oximetry 02/29/20 02/29/20 02/29/20 10:15 10:30 10:45 Temperature Pulse Rate 81 81 93 H Respiratory 37 H 37 H 45 H Rate Blood Pressure 132/69 137/73 142/101 O2 Sat by Pulse 99 99 98 Oximetry 02/29/20 02/29/20 02/29/20 11:00 11:15 11:30 Temperature Pulse Rate 83 91 H 88 Respiratory 40 H 43 H 40 H Rate Blood Pressure 148/79 152/89 145/81 O2 Sat by Pulse 99 100 100 Oximetry 02/29/20 02/29/20 02/29/20 11:45 12:00 12:15 Temperature 99.0 F Pulse Rate 93 H 93 H 92 H Respiratory 44 H 44 H 43 H Rate Blood Pressure 147/95 149/110 148/83 O2 Sat by Pulse 98 97 96 Oximetry 02/29/20 02/29/20 02/29/20 12:30 12:45 13:00 Temperature Pulse Rate 91 H 85 84 Respiratory 47 H 39 H 37 H Rate Blood Pressure 146/86 142/78 144/77 O2 Sat by Pulse 98 99 99 Oximetry 02/29/20 02/29/20 02/29/20 13:15 13:42 13:51 Temperature Pulse Rate 84 83 81 Respiratory 39 H 38 H 40 H Rate Blood Pressure 143/86 134/85 139/85 O2 Sat by Pulse 100 100 99 Oximetry 02/29/20 02/29/20 14:26 16:10 Temperature Pulse Rate 85 Respiratory 32 H Rate Blood Pressure 143/86 O2 Sat by Pulse Oximetry - Lab 02/27/20 04:18 02/29/20 14:22 Most recent lab results ABG pH 7.212 (7.320-7.450) L 02/29/20 12:31 ABG pCO2 31.2 mm Hg 02/28/20 19:39 ABG pO2 117.5 mm Hg (80.0-90.0) H 02/28/20 19:39 ABG HCO3 15.0 mmol/L (20.0-26.0) L 02/28/20 19:39 ABG O2 Saturation 98.1 % (95.0-99.0) 02/28/20 19:39 Calcium 9.0 mg/dL (8.4-10.2) 02/29/20 14:22 Phosphorus 7.50 mg/dL (2.5-4.5) H 02/29/20 14:22 Magnesium 2.60 mg/dL (1.7-2.3) H 02/29/20 14:22 Urine Creatinine 161.0 mg/dL (0.1-20.0) H 02/25/20 22:55 Urine Total Protein 150 mg/dL (5-11.8) H 02/25/20 22:55 Medications & Allergies - Medications Allergies/Adverse Reactions: Allergies No Known Allergies Allergy (Unverified 09/05/19 10:15) Home Medications: Home Medications Medication Instructions Recorded Confirmed Last Taken Type Amlodipine Besylate [Norvasc] 10 mg PO DAILY 09/05/19 02/24/20 09/04/19 History Furosemide [Lasix] 20 mg PO QDAY #30 tablet 09/05/19 02/24/20 Unknown Rx Lisinopril [Zestril] 5 mg PO DAILY #30 tablet 09/05/19 02/24/20 Unknown Rx Metoprolol [Lopressor TAB] 25 mg PO BID #60 tablet 09/05/19 02/24/20 Unknown Rx Active Medications: Generic Name Dose Route Start Last Admin Trade Name Freq PRN Reason Stop Dose Admin Acetaminophen 650 mg 02/26/20 16:23 02/26/20 16:37 Tylenol PO 650 mg Q4H PRN Administration Pain, Mild (1-3)/ Temp >100. Albuterol 2.5 mg 02/27/20 17:55 Proventil IH Q4HRT PRN Shortness Of Breath Albuterol/Ipratropium 1 ampul 02/28/20 12:17 02/29/20 10:20 Duoneb *Not For Prn Use* IH Not Given Q6HRT INDU Amlodipine Besylate 10 mg 02/28/20 10:00 02/29/20 11:00 Amlodipine PO 10 mg QDAY INDU Administration Dextrose 50 ml 02/29/20 08:00 02/29/20 12:18 D50w (25gm) Syringe IV 15 ml Q30MIN PRN Administration HYPOGLYCEMIA Protocol Fentanyl 50 mcg 02/29/20 15:35 02/29/20 16:10 Sublimaze IV 50 mcg Q10MIN PRN Administration ANALGESIA Haloperidol Lactate 5 mg 02/28/20 11:30 02/28/20 11:51 Haldol IV 5 mg Q1H PRN Administration Unrespon. to mult. doses BZD's Heparin Sodium (Porcine) 5,000 unit 02/24/20 14:00 02/29/20 14:29 Heparin SUB-Q 5,000 unit Q8HR INDU Administration Hydralazine HCl 50 mg 02/28/20 14:00 02/29/20 14:26 Apresoline PO 50 mg Q8HR INDU Administration Hydrophilic Ointment 1 applic 02/29/20 15:35 Vaseline Lip Therapy TP Q2HR PRN Dry Lips Nicardipine HCl 50 mg/ Sodium 250 mls @ 25 mls/hr 02/24/20 07:00 02/28/20 12:51 Chloride IV 0 mg/hr TITR INDU 0 mls/hr Titration Protocol 5 MG/HR Piperacillin Sod/Tazobactam Sod 2.25 gm in 50 mls @ 100 mls/hr 02/26/20 18:30 02/29/20 10:59 Zosyn/Ns 2.25 Gm/50ml IV 100 mls/hr Q8H INDU Administration Protocol Dexmedetomidine HCl 400 mcg/ 104 mls @ 16.562 mls/hr 02/28/20 13:00 02/29/20 10:57 Sodium Chloride IV 0.9 mcg/kg/hr TITRATE INDU 21.294 mls/hr Administration Protocol 0.7 MCG/KG/HR Fentanyl Citrate 2,000 mcg in 100 mls @ 4.55 mls/hr 02/29/20 16:00 Fentanyl Drip Premix IV TITR INDU Protocol 1 MCG/KG/HR Midazolam HCl 100 mg/ Sodium 100 mls @ 2 mls/hr 02/29/20 16:00 Chloride IV TITR INDU Protocol 2 MG/HR Labetalol HCl 10 mg 02/28/20 09:00 Labetalol IV Q4H PRN Hypertension Lorazepam 1 mg 02/28/20 04:20 02/28/20 11:05 Ativan IV 1 mg Q4H PRN Administration Agitation Lorazepam 2 mg 02/28/20 11:30 02/29/20 11:43 Ativan IV 2 mg Q1H PRN Administration CIWA-Ar 8-15 Lorazepam 4 mg 02/28/20 11:30 02/29/20 16:19 Ativan IV 4 mg Q1H PRN Administration CIWA-Ar 16-25 Metoprolol Tartrate 25 mg 02/28/20 10:00 02/29/20 11:00 Metoprolol PO 25 mg BID INDU Administration Midazolam HCl 2 mg 02/29/20 15:35 02/29/20 16:17 Versed IV 2 mg Q10MIN PRN Administration Sedation Multi-Ingred Cream/Lotion/Oil/Oint 1 applic 02/29/20 15:35 Artificial Tears Ophth Oint OU Q4HR PRN Dry Eye(s) Ondansetron HCl 4 mg 02/24/20 06:45 02/25/20 23:33 Zofran IV 4 mg Q8H PRN Administration Nausea And Vomiting Pantoprazole Sodium 40 mg 02/24/20 13:00 02/29/20 10:51 Protonix IV 40 mg QDAY INDU Administration Sodium Bicarbonate 650 mg 02/28/20 14:00 02/29/20 14:26 Sodium Bicarbonate PO 650 mg TID INDU Administration Sodium Chloride 10 ml 02/24/20 10:00 02/29/20 11:00 Sodium Chloride Flush Syringe 10 Ml IV 10 ml BID INDU Administration Sodium Chloride 10 ml 02/24/20 06:45 Sodium Chloride Flush Syringe 10 Ml IV PRN PRN LINE FLUSH
[2020-02-29] MEDS: fentaNYL DRIP Premix 2,000 MCG/100 ML BAG IV SCH ×2 (16:27→21:08)
[2020-02-29] MEDS: MIDAZOLAM 100 MG in SODIUM CHLORIDE 0.9% 80 ML IV SCH (16:28)
--- NOTE | 2020-02-29 17:02 | Progress Note ---
Assessment and Plan Acute Hypoxemic Respiratory Failure on MVS Severe Sepsis Acute Toxic-Metabolic Encephalopathy Hypertensive urgency Morbid obesity Acute pancreatitis, abdominal pain Medical non compliance Oropharyngeal Dysphagia - Intubated - AC / 500 / 25 / 6 / 50% then get ABG and adjust vent settings accordingly - fentanyl and Versed for sedation - begin daily SAT and SBT assessment as tolerated - accuchecks with glycemic control per SSI (While critically ill target blood glucose of 140-180 mg/dL; avoid hypoglycemia) - sedation prn for target RASS -1 to -2 - continue to wean supplemental oxygen for target O2 sat's > 90% acutely - VAP bundle addressed - continue lung protective strategies - continue bronchodilators with pulmonary hygiene per RT - wean per pulmonary driven protocols otherwise - place feeding tube; then enteral nutritiuon at goal rate as tolerated - continue Zosyn; de-escalate per ID rec's - continue Nicardipine for her blood pressure management till taking orally (target BP < 160 mmHg) - JUANIS per bias binding folder - Evaluation for sleep apnea as an outpatient - VTE prophylaxis - prn Analgesia per CPOT score - avoid nephrotoxins, renally dose all medications - Maintenance of sleep-wake cycle, avoid delirium - G.I. & VTE prophylaxis - PT/OT/ROM exercises - mobility protocols for pressure ulcer prophylaxis - Monitor hemodynamics closely - continue other care per attending / other consultants - discharge planning ongoing concurrently ..... re-evaluate in am & prn CONDITION: CRITICAL PROGNOSIS: GUARDED CODE STATUS: FULL CODE The high probability of a clinically significant, sudden or life-threatening d eterioration of the [respiratory, cardiovascular & GI] system(s) required my full and direct attention, intervention and personal management. The aggregate critical care time was [38] minutes without overlap. Time includes spent on; [x] Data Review and interpretation [x] Patient assessment and monitoring of vital signs [x] Documentation [x] Medication orders and management Subjective Date of service: 02/29/20 Principal diagnosis: HTNsive urgency; Morbid obesity; Ac. pancreatitis; Abdominal pain Interval history: Patient is seen today for: Hypertensive urgency; Morbid obesity; Acute pancreatitis; abdominal pain; Medical non compliance; Acute Toxic Metabolic Encephalopathy Seen and examined at bedside; 24hour events reviewed; nursing and respiratory ca re staff consulted; no adverse overnight events reported to me; laying in bed; has remained BIPAP dependent but work of breathing remains increased and ABG worse; no emesis or overt aspiration; remains on Precedex and CIWA protocol but still encephalopathic Objective Vital Signs - 12hr 02/29/20 02/29/20 02/29/20 05:00 05:15 05:31 Temperature Pulse Rate 82 80 81 Respiratory 32 H 31 H 31 H Rate Blood Pressure 116/72 119/74 122/74 O2 Sat by Pulse 100 100 100 Oximetry 02/29/20 02/29/20 02/29/20 05:45 06:00 06:15 Temperature Pulse Rate 82 88 81 Respiratory 32 H 29 H 34 H Rate Blood Pressure 130/79 142/88 131/78 O2 Sat by Pulse 99 99 99 Oximetry 02/29/20 02/29/20 02/29/20 06:30 06:45 07:00 Temperature Pulse Rate 80 88 83 Respiratory 32 H 34 H 34 H Rate Blood Pressure 124/75 117/75 139/76 O2 Sat by Pulse 99 100 99 Oximetry 02/29/20 02/29/20 02/29/20 07:15 07:30 07:45 Temperature Pulse Rate 82 82 82 Respiratory 33 H 33 H 33 H Rate Blood Pressure 123/71 126/75 134/78 O2 Sat by Pulse 100 100 100 Oximetry 02/29/20 02/29/20 02/29/20 08:00 08:15 08:23 Temperature 99.3 F Pulse Rate 81 80 85 Respiratory 35 H 34 H 33 H Rate Blood Pressure 124/72 128/72 128/72 O2 Sat by Pulse 100 100 0 L Oximetry 02/29/20 02/29/20 02/29/20 08:31 08:45 09:00 Temperature Pulse Rate 97 H 81 80 Respiratory 46 H 37 H 40 H Rate Blood Pressure 165/97 129/79 135/72 O2 Sat by Pulse 98 99 99 Oximetry 02/29/20 02/29/20 02/29/20 09:15 09:30 09:45 Temperature Pulse Rate 80 81 84 Respiratory 35 H 35 H 38 H Rate Blood Pressure 128/72 129/75 140/74 O2 Sat by Pulse 99 99 99 Oximetry 02/29/20 02/29/20 02/29/20 10:00 10:15 10:30 Temperature Pulse Rate 81 81 81 Respiratory 35 H 37 H 37 H Rate Blood Pressure 139/88 132/69 137/73 O2 Sat by Pulse 99 99 99 Oximetry 02/29/20 02/29/20 02/29/20 10:45 11:00 11:15 Temperature Pulse Rate 93 H 83 91 H Respiratory 45 H 40 H 43 H Rate Blood Pressure 142/101 148/79 152/89 O2 Sat by Pulse 98 99 100 Oximetry 02/29/20 02/29/20 02/29/20 11:30 11:45 12:00 Temperature 99.0 F Pulse Rate 88 93 H 93 H Respiratory 40 H 44 H 44 H Rate Blood Pressure 145/81 147/95 149/110 O2 Sat by Pulse 100 98 97 Oximetry 02/29/20 02/29/20 02/29/20 12:15 12:30 12:45 Temperature Pulse Rate 92 H 91 H 85 Respiratory 43 H 47 H 39 H Rate Blood Pressure 148/83 146/86 142/78 O2 Sat by Pulse 96 98 99 Oximetry 02/29/20 02/29/20 02/29/20 13:00 13:15 13:42 Temperature Pulse Rate 84 84 83 Respiratory 37 H 39 H 38 H Rate Blood Pressure 144/77 143/86 134/85 O2 Sat by Pulse 99 100 100 Oximetry 02/29/20 02/29/20 02/29/20 13:51 14:26 16:10 Temperature Pulse Rate 81 85 Respiratory 40 H 32 H Rate Blood Pressure 139/85 143/86 O2 Sat by Pulse 99 Oximetry Constitutional: appears uncomfortable, other (Obese female with moderately in creased respiratory effort at rest) Eyes: non-icteric ENT: oropharynx moist, other (BIPAP FFM) Neck: supple, no lymphadenopathy, no JVD Effort: mildly labored Ascultation: Bilateral: diminished breath sounds, wheezes (expiratory), rales Percussion: Bilateral: not dull Cardiovascular: regular rate and rhythm, other (S1,S2) Gastrointestinal: normoactive bowel sounds, soft, tender (epigastrium), non- distended Integumentary: normal Extremities: no cyanosis, no edema, pulses normal, no ischemia or petechiae Neurologic: normal mental status, non-focal exam, pupils equal and round, motor strength normal and Psychiatric: other (delirious) CBC and BMP: 02/27/20 04:18 03/01/20 11:06 ABG, PT/INR, D-dimer: ABG ABG pH 7.212 (7.320-7.450) L 02/29/20 12:31 POC ABG pCO2 36.5 mmHg (32.0-48.0) 02/29/20 12:31 ABG pCO2 31.2 mm Hg 02/28/20 19:39 POC ABG pO2 93.4 mmHg (83-108) 02/29/20 12:31 ABG pO2 117.5 mm Hg (80.0-90.0) H 02/28/20 19:39 POC ABG HCO3 14.3 02/29/20 12:31 ABG O2 Saturation 98.1 % (95.0-99.0) 02/28/20 19:39 PT/INR, D-dimer PT 13.7 Sec. (12.2-14.9) 02/25/20 03:49 INR 1.03 (0.87-1.13) 02/25/20 03:49 Abnormal lab findings: Abnormal Labs 02/24/20 02/24/20 02/24/20 02:53 02:53 Unknown WBC 12.7 H Hgb 10.0 L Hct MCV 70 L MCH 22 L RDW 17.9 H Plt Count 458 H Lymph % (Auto) 8.9 L Lymph # 1.1 L [place] # Seg Neutrophils % 84.2 H Seg Neutrophils # 10.7 H ABG pH POC ABG pO2 ABG pO2 ABG HCO3 ABG O2 Saturation ABG Base Excess ABG Hemoglobin Oxyhemoglobin Sodium Chloride Carbon Dioxide BUN 27 H Creatinine 1.7 H Glucose 118 H POC Glucose Calcium Phosphorus Magnesium Albumin C-Reactive Protein Lipase 232 H PTH Intact Urine WBC (Auto) 11.0 H Urine Creatinine Urine Total Protein 02/25/20 02/25/20 02/25/20 00:03 03:49 03:49 WBC 29.1 H Hgb 9.4 L Hct 30.2 L MCV 71 L MCH 22 L RDW 18.3 H Plt Count 525 H Lymph % (Auto) 3.4 L Lymph # 1.0 L [place] # 1.0 H Seg Neutrophils % Seg Neutrophils # 26.4 H ABG pH POC ABG pO2 ABG pO2 ABG HCO3 ABG O2 Saturation ABG Base Excess ABG Hemoglobin Oxyhemoglobin Sodium Chloride Carbon Dioxide BUN Creatinine Glucose POC Glucose 126 H Calcium Phosphorus Magnesium Albumin C-Reactive Protein Lipase 1486 H PTH Intact Urine WBC (Auto) Urine Creatinine Urine Total Protein 02/25/20 02/25/20 02/25/20 03:49 05:55 22:55 WBC Hgb Hct MCV MCH RDW Plt Count Lymph % (Auto) Lymph # [place] # Seg Neutrophils % Seg Neutrophils # ABG pH POC ABG pO2 ABG pO2 ABG HCO3 ABG O2 Saturation ABG Base Excess ABG Hemoglobin Oxyhemoglobin Sodium 136 L Chloride 97.9 L Carbon Dioxide 21 L BUN 39 H Creatinine 3.0 H D Glucose 118 H POC Glucose 124 H Calcium Phosphorus Magnesium Albumin 3.6 L C-Reactive Protein Lipase PTH Intact Urine WBC (Auto) Urine Creatinine 161.0 H Urine Total Protein 150 H 02/26/20 02/26/20 02/26/20 04:39 04:39 08:15 WBC 30.3 H Hgb 9.1 L Hct 29.8 L MCV 71 L MCH 22 L RDW 18.2 H Plt Count 530 H Lymph % (Auto) Lymph # [place] # Seg Neutrophils % Seg Neutrophils # ABG pH POC ABG pO2 ABG pO2 ABG HCO3 ABG O2 Saturation ABG Base Excess ABG Hemoglobin Oxyhemoglobin Sodium Chloride Carbon Dioxide 19 L BUN 44 H Creatinine 3.1 H Glucose 106 H POC Glucose Calcium 8.1 L Phosphorus Magnesium Albumin C-Reactive Protein Lipase 540 H PTH Intact 911.3 H Urine WBC (Auto) Urine Creatinine Urine Total Protein 02/26/20 02/27/20 02/27/20 12:14 04:18 04:18 WBC 26.8 H Hgb 7.9 L Hct 26.3 L MCV 70 L MCH 21 L RDW 18.0 H Plt Count 513 H Lymph % (Auto) Lymph # [place] # Seg Neutrophils % Seg Neutrophils # ABG pH POC ABG pO2 ABG pO2 ABG HCO3 ABG O2 Saturation ABG Base Excess ABG Hemoglobin Oxyhemoglobin Sodium 135 L Chloride Carbon Dioxide 15 L BUN 50 H Creatinine 3.4 H Glucose POC Glucose 112 H Calcium 7.4 L Phosphorus Magnesium Albumin C-Reactive Protein Lipase PTH Intact Urine WBC (Auto) Urine Creatinine Urine Total Protein 02/27/20 02/27/20 02/28/20 04:18 16:57 05:07 WBC Hgb Hct MCV MCH RDW Plt Count Lymph % (Auto) Lymph # [place] # Seg Neutrophils % Seg Neutrophils # ABG pH 7.336 L POC ABG pO2 ABG pO2 57.0 L ABG HCO3 16.4 L ABG O2 Saturation 88.2 L ABG Base Excess -8.4 L ABG Hemoglobin 10.4 L Oxyhemoglobin 85.7 L Sodium 135 L Chloride Carbon Dioxide 16 L 14 L BUN 51 H 60 H Creatinine 3.4 H 4.2 H Glucose POC Glucose Calcium 7.5 L 8.2 L Phosphorus Magnesium Albumin 3.0 L C-Reactive Protein 37.30 H Lipase 177 H PTH Intact Urine WBC (Auto) Urine Creatinine Urine Total Protein 02/28/20 02/28/20 02/28/20 05:07 05:56 11:05 WBC Hgb Hct MCV MCH RDW Plt Count Lymph % (Auto) Lymph # [place] # Seg Neutrophils % Seg Neutrophils # ABG pH 7.317 L POC ABG pO2 ABG pO2 ABG HCO3 16.4 L ABG O2 Saturation ABG Base Excess -8.9 L ABG Hemoglobin 6.6 L Oxyhemoglobin 94.6 L Sodium Chloride Carbon Dioxide BUN Creatinine Glucose POC Glucose 115 H Calcium Phosphorus Magnesium Albumin C-Reactive Protein Lipase 155 H PTH Intact Urine WBC (Auto) Urine Creatinine Urine Total Protein 02/28/20 02/28/20 02/28/20 11:05 17:39 19:39 WBC Hgb Hct MCV MCH RDW Plt Count Lymph % (Auto) Lymph # [place] # Seg Neutrophils % Seg Neutrophils # ABG pH 7.300 L POC ABG pO2 76.2 L ABG pO2 117.5 H ABG HCO3 15.0 L ABG O2 Saturation ABG Base Excess -10.5 L ABG Hemoglobin 7.6 L 6.4 L Oxyhemoglobin Sodium Chloride Carbon Dioxide BUN Creatinine Glucose POC Glucose 120 H Calcium Phosphorus Magnesium Albumin C-Reactive Protein Lipase PTH Intact Urine WBC (Auto) Urine Creatinine Urine Total Protein 02/29/20 02/29/20 02/29/20 05:43 05:45 12:04 WBC Hgb Hct MCV MCH RDW Plt Count Lymph % (Auto) Lymph # [place] # Seg Neutrophils % Seg Neutrophils # ABG pH POC ABG pO2 ABG pO2 ABG HCO3 ABG O2 Saturation ABG Base Excess ABG Hemoglobin Oxyhemoglobin Sodium Chloride Carbon Dioxide BUN Creatinine Glucose POC Glucose 66 L 65 L 64 L Calcium Phosphorus Magnesium Albumin C-Reactive Protein Lipase PTH Intact Urine WBC (Auto) Urine Creatinine Urine Total Protein 02/29/20 02/29/20 02/29/20 12:31 14:22 14:22 WBC Hgb Hct MCV MCH RDW Plt Count Lymph % (Auto) Lymph # [place] # Seg Neutrophils % Seg Neutrophils # ABG pH 7.212 L POC ABG pO2 ABG pO2 ABG HCO3 ABG O2 Saturation ABG Base Excess ABG Hemoglobin 7.4 L Oxyhemoglobin Sodium Chloride Carbon Dioxide 16 L BUN 77 H Creatinine 4.7 H Glucose POC Glucose Calcium Phosphorus 7.50 H Magnesium 2.60 H Albumin 2.3 L C-Reactive Protein Lipase PTH Intact Urine WBC (Auto) Urine Creatinine Urine Total Protein Chest x-ray: image reviewed (ETT in good position) Allied health notes reviewed: nursing
--- NOTE | 2020-02-29 17:53 | XRay Report ---
ABDOMEN AP PORTABLE SUPINE 1652 INDICATION: NGT placement COMPARISON: 1509 FINDINGS: Nasogastric tube is coiled in the proximal stomach with tip extending into the mid to dista l stomach. Signer Name: Inderjit Hammond MD Signed: 02/29/2020 5:49 PM Workstation Name: [id number]
--- NOTE | 2020-02-29 17:54 | XRay Report ---
CHEST 1 VIEW INDICATION / CLINICAL INFORMATION: ETT placement. COMPARISON: 02/27/2020 FINDINGS: SUPPORT DEVICES: Interval placement of NG tube with its tip and sidehole projected over the gastric l umen. Interval placement of ET tube with its tip projected at the level of the clavicles. HEART / MEDIASTINUM: Stable. LUNGS / PLEURA: Persistent left lower lobe atelectasis. No pneumothorax. ADDITIONAL FINDINGS: No significant additional findings. IMPRESSION: 1. Interval placement of NG and ET tubes in appropriate position. 2. Persistent left lung base atelectasis. Signer Name: King De Leon MD Signed: 02/29/2020 5:49 PM Workstation Name: [id number]
--- NOTE | 2020-02-29 18:49 | Progress Note ---
Assessment and Plan (1) Acute pancreatitis - improved by lipase level coming down. Could be developing complications related to local and systemic effects. Etiology of pancreatitis unclear, but may be EtOH given course with possible DTs, though now seems to be developing multi-organ failure. - given calcification in HOP, MRCP at some point in future is reasonable, but no need urgently - based on course, repeat CT to monitor evolution of pancreatitis, usu q 2 wks (2) Altered mental status - now intubated and sedated. Current Visit: Yes Status: Acute Plan to address problem: - Consider nutritional support with Dob[place], and monitor pancreatitis. Subjective Date of service: 02/29/20 Principal diagnosis: HTNsive urgency; Morbid obesity; Ac. pancreatitis; Abdominal pain Interval history: Pt developed respiratory distress, metabolic acidosis, and was intubated. She is currently sedated, on ventilator. Objective - Constitutional Vitals: Vital Signs - 12hr 02/29/20 02/29/20 02/29/20 06:45 07:00 07:15 Temperature Pulse Rate 88 83 82 Respiratory 34 H 34 H 33 H Rate Blood Pressure 117/75 139/76 123/71 O2 Sat by Pulse 100 99 100 Oximetry 02/29/20 02/29/20 02/29/20 07:30 07:45 08:00 Temperature 99.3 F Pulse Rate 82 82 81 Respiratory 33 H 33 H 35 H Rate Blood Pressure 126/75 134/78 124/72 O2 Sat by Pulse 100 100 100 Oximetry 02/29/20 02/29/20 02/29/20 08:15 08:23 08:31 Temperature Pulse Rate 80 85 97 H Respiratory 34 H 33 H 46 H Rate Blood Pressure 128/72 128/72 165/97 O2 Sat by Pulse 100 0 L 98 Oximetry 02/29/20 02/29/20 02/29/20 08:45 09:00 09:15 Temperature Pulse Rate 81 80 80 Respiratory 37 H 40 H 35 H Rate Blood Pressure 129/79 135/72 128/72 O2 Sat by Pulse 99 99 99 Oximetry 02/29/20 02/29/20 02/29/20 09:30 09:45 10:00 Temperature Pulse Rate 81 84 81 Respiratory 35 H 38 H 35 H Rate Blood Pressure 129/75 140/74 139/88 O2 Sat by Pulse 99 99 99 Oximetry 02/29/20 02/29/20 02/29/20 10:15 10:30 10:45 Temperature Pulse Rate 81 81 93 H Respiratory 37 H 37 H 45 H Rate Blood Pressure 132/69 137/73 142/101 O2 Sat by Pulse 99 99 98 Oximetry 02/29/20 02/29/20 02/29/20 11:00 11:15 11:30 Temperature Pulse Rate 83 91 H 88 Respiratory 40 H 43 H 40 H Rate Blood Pressure 148/79 152/89 145/81 O2 Sat by Pulse 99 100 100 Oximetry 02/29/20 02/29/20 02/29/20 11:45 12:00 12:15 Temperature 99.0 F Pulse Rate 93 H 93 H 92 H Respiratory 44 H 44 H 43 H Rate Blood Pressure 147/95 149/110 148/83 O2 Sat by Pulse 98 97 96 Oximetry 02/29/20 02/29/20 02/29/20 12:30 12:45 13:00 Temperature Pulse Rate 91 H 85 84 Respiratory 47 H 39 H 37 H Rate Blood Pressure 146/86 142/78 144/77 O2 Sat by Pulse 98 99 99 Oximetry 02/29/20 02/29/20 02/29/20 13:15 13:42 13:51 Temperature Pulse Rate 84 83 81 Respiratory 39 H 38 H 40 H Rate Blood Pressure 143/86 134/85 139/85 O2 Sat by Pulse 100 100 99 Oximetry 02/29/20 02/29/20 02/29/20 14:26 16:10 17:00 Temperature Pulse Rate 85 101 H Respiratory 32 H Rate Blood Pressure 143/86 146/95 O2 Sat by Pulse 100 Oximetry General appearance: Present: no acute distress, other (Intubated and sedated.) - Gastrointestinal General gastrointestinal: Present: soft, hypoactive bowel sounds - Labs CBC & Chem 7: 02/27/20 04:18 02/29/20 14:22 Labs: Abnormal lab results 02/28/20 02/29/20 02/29/20 Range/Units 19:39 05:43 05:45 ABG pH 7.300 L (7.350-7.450) pH Units ABG pO2 117.5 H (80.0-90.0) mm Hg ABG HCO3 15.0 L (20.0-26.0) mmol/L ABG Base Excess -10.5 L (-2.0-3.0) mmol/L ABG Hemoglobin 6.4 L (12.0-16.0) gm/dl ABG Oxyhemoglobin (94-98) Carbon Dioxide (22-30) mmol/L BUN (7-17) mg/dL Creatinine (0.6-1.2) mg/dL POC Glucose 66 L 65 L (70-105) Phosphorus (2.5-4.5) mg/dL Magnesium (1.7-2.3) mg/dL Albumin (3.9-5) g/dL 02/29/20 02/29/20 02/29/20 Range/Units 12:04 12:31 14:22 ABG pH 7.212 L (7.350-7.450) pH Units ABG pO2 (80.0-90.0) mm Hg ABG HCO3 (20.0-26.0) mmol/L ABG Base Excess (-2.0-3.0) mmol/L ABG Hemoglobin 7.4 L (12.0-16.0) gm/dl ABG Oxyhemoglobin (94-98) Carbon Dioxide 16 L (22-30) mmol/L BUN 77 H (7-17) mg/dL Creatinine 4.7 H (0.6-1.2) mg/dL POC Glucose 64 L (70-105) Phosphorus (2.5-4.5) mg/dL Magnesium (1.7-2.3) mg/dL Albumin (3.9-5) g/dL 02/29/20 02/29/20 02/29/20 Range/Units 14:22 18:20 18:24 ABG pH 7.271 L (7.350-7.450) pH Units ABG pO2 (80.0-90.0) mm Hg ABG HCO3 (20.0-26.0) mmol/L ABG Base Excess (-2.0-3.0) mmol/L ABG Hemoglobin 7.2 L (12.0-16.0) gm/dl ABG Oxyhemoglobin 93.4 L (94-98) Carbon Dioxide (22-30) mmol/L BUN (7-17) mg/dL Creatinine (0.6-1.2) mg/dL POC Glucose 66 L (70-105) Phosphorus 7.50 H (2.5-4.5) mg/dL Magnesium 2.60 H (1.7-2.3) mg/dL Albumin 2.3 L (3.9-5) g/dL Medications & Allergies - Medications Allergies/Adverse Reactions: Allergies No Known Allergies Allergy (Unverified 09/05/19 10:15) Home Medications: Home Medications Medication Instructions Recorded Confirmed Last Taken Type Amlodipine Besylate [Norvasc] 10 mg PO DAILY 09/05/19 02/24/20 09/04/19 History Furosemide [Lasix] 20 mg PO QDAY #30 tablet 09/05/19 02/24/20 Unknown Rx Lisinopril [Zestril] 5 mg PO DAILY #30 tablet 09/05/19 02/24/20 Unknown Rx Metoprolol [Lopressor TAB] 25 mg PO BID #60 tablet 09/05/19 02/24/20 Unknown Rx Active Medications: Generic Name Dose Route Start Last Admin Trade Name Freq PRN Reason Stop Dose Admin Acetaminophen 650 mg 02/26/20 16:23 02/26/20 16:37 Tylenol PO 650 mg Q4H PRN Administration Pain, Mild (1-3)/ Temp >100. Albuterol 2.5 mg 02/27/20 17:55 Proventil IH Q4HRT PRN Shortness Of Breath Albuterol/Ipratropium 1 ampul 02/28/20 12:17 02/29/20 17:28 Duoneb *Not For Prn Use* IH Not Given Q6HRT [facility] Amlodipine Besylate 10 mg 02/28/20 10:00 02/29/20 11:00 Amlodipine PO 10 mg QDAY INDU Administration Dextrose 50 ml 02/29/20 08:00 02/29/20 12:18 D50w (25gm) Syringe IV 15 ml Q30MIN PRN Administration HYPOGLYCEMIA Protocol Fentanyl 50 mcg 02/29/20 15:35 02/29/20 16:10 Sublimaze IV 50 mcg Q10MIN PRN Administration ANALGESIA Haloperidol Lactate 5 mg 02/28/20 11:30 02/28/20 11:51 Haldol IV 5 mg Q1H PRN Administration Unrespon. to mult. doses BZD's Heparin Sodium (Porcine) 5,000 unit 02/24/20 14:00 02/29/20 14:29 Heparin SUB-Q 5,000 unit Q8HR INDU Administration Hydralazine HCl 50 mg 02/28/20 14:00 02/29/20 14:26 Apresoline PO 50 mg Q8HR INDU Administration Hydrophilic Ointment 1 applic 02/29/20 15:35 Vaseline Lip Therapy TP Q2HR PRN Dry Lips Nicardipine HCl 50 mg/ Sodium 250 mls @ 25 mls/hr 02/24/20 07:00 02/28/20 12:51 Chloride IV 0 mg/hr TITR INDU 0 mls/hr Titration Protocol 5 MG/HR Piperacillin Sod/Tazobactam Sod 2.25 gm in 50 mls @ 100 mls/hr 02/26/20 18:30 02/29/20 17:52 Zosyn/Ns 2.25 Gm/50ml IV 100 mls/hr Q8H INDU Administration Protocol Fentanyl Citrate 2,000 mcg in 100 mls @ 4.55 mls/hr 02/29/20 16:00 02/29/20 17:39 Fentanyl Drip Premix IV 4 mcg/kg/hr TITR INDU 18.2 mls/hr Titration Protocol 1 MCG/KG/HR Midazolam HCl 100 mg/ Sodium 100 mls @ 2 mls/hr 02/29/20 16:00 02/29/20 17:30 Chloride IV 5 mg/hr TITR INDU 5 mls/hr Titration Protocol 2 MG/HR Propofol 1,000 mg in 100 mls @ 2.73 mls/hr 02/29/20 18:00 Diprivan 10 Mg/Ml IV TITR INDU Protocol 5 MCG/KG/MIN Labetalol HCl 10 mg 02/28/20 09:00 Labetalol IV Q4H PRN Hypertension Lorazepam 1 mg 02/28/20 04:20 02/28/20 11:05 Ativan IV 1 mg Q4H PRN Administration Agitation Lorazepam 2 mg 02/28/20 11:30 02/29/20 11:43 Ativan IV 2 mg Q1H PRN Administration CIWA-Ar 8-15 Lorazepam 4 mg 02/28/20 11:30 02/29/20 16:19 Ativan IV 4 mg Q1H PRN Administration CIWA-Ar 16-25 Metoprolol Tartrate 25 mg 02/28/20 10:00 02/29/20 11:00 Metoprolol PO 25 mg BID INDU Administration Midazolam HCl 2 mg 02/29/20 15:35 02/29/20 17:00 Versed IV 2 mg Q10MIN PRN Administration Sedation Multi-Ingred Cream/Lotion/Oil/Oint 1 applic 02/29/20 15:35 Artificial Tears Ophth Oint OU Q4HR PRN Dry Eye(s) Ondansetron HCl 4 mg 02/24/20 06:45 02/25/20 23:33 Zofran IV 4 mg Q8H PRN Administration Nausea And Vomiting Pantoprazole Sodium 40 mg 02/24/20 13:00 02/29/20 10:51 Protonix IV 40 mg QDAY INDU Administration Sodium Bicarbonate 650 mg 02/28/20 14:00 02/29/20 14:26 Sodium Bicarbonate PO 650 mg TID INDU Administration Sodium Chloride 10 ml 02/24/20 10:00 02/29/20 11:00 Sodium Chloride Flush Syringe 10 Ml IV 10 ml BID INDU Administration Sodium Chloride 10 ml 02/24/20 06:45 Sodium Chloride Flush Syringe 10 Ml IV PRN PRN LINE FLUSH
[2020-03-01] MEDS: DEXTROSE 50% IN WATER (25GM) 50 ML SYRINGE IV PRN (00:20)
[2020-03-01] MEDS: PIPERACIL-TAZO 2.25 GM/50 ML 2.25 GM/50 ML BAG IV SCH ×3 (02:15→17:57)
[2020-03-01] MEDS: fentaNYL DRIP Premix 2,000 MCG/100 ML BAG IV SCH ×4 (02:41→19:27)
[2020-03-01] MEDS: IPRATROPIUM/ALBUTEROL SULFATE 3 ML AMPUL.NEB IH SCH ×4 (03:53→20:30)
[2020-03-01 04:42] LABS: ABG Base Excess -8.9 mmol/L (-2.0-3.0); ABG HCO3 15.8 mmol/L (20.0-26.0); ABG Methemoglobin 0.5 % (0.0-1.5); ABG Oxygen Saturation 98.6 % (95.0-99.0); ABG PCO2 29.4 mm Hg; ABG PH 7.347 pH Units (7.350-7.450); ABG PO2 133.5 mm Hg (80.0-90.0)
--- NOTE | 2020-03-01 05:16 | XRay Report ---
CHEST 1 VIEW 03/01/2020 4:05 AM INDICATION / CLINICAL INFORMATION: follow up respiratory failure. COMPARISON: 02/29/2020 FINDINGS: SUPPORT DEVICES: Stable, satisfactory device positioning. HEART / MEDIASTINUM: Stable. LUNGS / PLEURA: Worsening bibasilar pulmonary opacities. No pneumothorax. ADDITIONAL FINDINGS: No significant additional findings. IMPRESSION: 1. Worsening bibasilar pulmonary opacities. Signer Name: Chance Leon MD Signed: 03/01/2020 5:12 AM Workstation Name: [email or web address]
[2020-03-01 05:28] LABS: Calcium 8.7 mg/dL (8.4-10.2)
[2020-03-01] MEDS: hydrALAZINE 25 MG TAB PO SCH ×3 (06:41→22:19)
[2020-03-01] MEDS: HEPARIN 5,000 UNIT/1 ML VIAL SUB-Q SCH ×3 (06:44→22:22)
[2020-03-01] MEDS: MIDAZOLAM 100 MG in SODIUM CHLORIDE 0.9% 80 ML IV SCH (08:04)
[2020-03-01] MEDS: SODIUM BICARBONATE 650 MG TAB PO SCH ×3 (08:06→22:19)
--- NOTE | 2020-03-01 08:09 | Progress Note ---
Assessment and Plan Assessment and plan: --Acute hypoxic respiratory failure; intubated /mechanical ventilation Current Visit: Yes Status: Acute Plan to address problem: Secondary to pancreatitis, lung infiltrate, possible ARDS Nebulizers, supportive care Pulmonary critical following Wean as tolerated and extubate --Severe sepsis secondary to pneumonia ; Current Visit: Yes Status: Acute Plan to address problem: Worsening bibasilar opacities on chest x-ray leukocytosis, tachycardia, tachypnea, fever, infiltrate on chest x-ray. Continue Zosyn, follow cultures, ID following -- Acute pancreatitis/worsening lipase[297 today] Current Visit: Yes Status: Acute Plan to address problem: Mild improvement of symptoms Worsening lipase levels Lipase [phone] IV fluid and IV pain medication. Management per GI Repeat CT abdomen and pelvis[when patient is stable] --Anemia; Current Visit: Yes Status: Acute Plan to address problem: monitor H&H and transfuse as needed. --Severe metabolic encephalopathy/AMS Current Visit: Yes Status: Acute Plan to address problem: Probably secondary alcohol withdrawal symptoms Treat the underlying cause,CIWA protocol, supportive care --Possible alcohol withdrawal symptoms; Current Visit: Yes Status: Acute Plan to address problem: Discussed with GI Dr. De La Rosa , agree with CIWA closely monitor , Ativan as needed Continue CIWA protocol --Worsening leukocytosis Current Visit: Yes Status: Acute Plan to address problem: Secondary to sepsis due to bibasilar pneumonia, acute pancreatitis, ID and GI following -- Hypertensive emergency Current Visit: Yes Status: Acute Plan to address problem: s/p Cardene drip, closely monitor BP well controlled oral antihypertensives IV antihypertensives, PRN --JUANIS/worsening renal function[cr 5.6] Current Visit: Yes Status: Acute Plan to address problem: Vasomotor nephropathy gentle hydration, avoid nephrotoxins,nephrology following --Severe metabolic acidosis; Current Visit: Yes Status: Acute Plan to address problem: Management per nephrology --Medical noncompliance Current Visit: Yes Status: Acute Plan to address problem: Patient was counseled upon admission -- DVT prophylaxis Current Visit: Yes Status: Acute Plan to address problem: Patient placed on subcutaneous heparin. --Obesity; BMI 37.9 Current Visit: Yes Status: Acute Plan to address problem: patient needs weight reduction when medically stable. -- Full code status Current Visit: Yes Status: Acute Follow GI and pulmonary evaluation and recommendations We will closely monitor the patient and adjust the management as needed Closely monitor the patient and adjust management as needed. Patient is critically ill with multiple medical problems Prognosis poor, family aware The high probability of a clinically significant, sudden or life threatening deterioration of the [GI, CVS, renal, respiratory and metabolic] system(s) required my full and direct attention, intervention and personal management. The aggregate critical care time was [33] minutes. This time is in addition to time spent performing reported procedures but includes the following: [x] Data Review and interpretation [x] Patient assessment and monitoring of vital signs [x] Documentation [x] Medication orders and management History Interval history: I have seen and examined the patient at the bedside this morning Patient is intubated on ventilatory support Patient is critically ill Chest x-ray worsening bi basilar opacities Worsening renal function creatinine is 5.6 Vital signs reviewed Low-grade fever Hospitalist Physical - Constitutional Vitals: Temp Pulse Resp BP Pulse Ox 99.8 F H 94 H 25 H 138/70 98 03/01/20 03:05 03/01/20 07:31 03/01/20 07:31 03/01/20 07:31 03/01/20 07:31 General appearance: Present: no acute distress, well-nourished, obese, other (Intubated and sedated.) - EENT Eyes: Present: PERRL, EOM intact - Neck Neck: Present: supple, normal ROM - Respiratory Respiratory effort: normal Respiratory: bilateral: diminished, rhonchi, negative: rales, wheezing - Cardiovascular Rhythm: regular Heart Sounds: Present: S1 & S2 (Tachycardia) - Extremities Extremities: no ischemia, No edema - Abdominal General gastrointestinal: soft, tender, distended (Mild), hypoactive bowel sounds - Integumentary Integumentary: Present: clear, warm - Psychiatric Psychiatric: other (Intubated on mechanical ventilation) - Neurologic Neurologic: other (Intubated on vent) Results - Labs CBC & Chem 7: 03/01/20 16:22 03/01/20 11:06 Labs: Laboratory Last Values WBC 26.8 K/mm3 (4.5-11.0) H 02/27/20 04:18 RBC 3.76 M/mm3 (3.65-5.03) 02/27/20 04:18 Hgb 7.9 gm/dl (10.1-14.3) L 02/27/20 04:18 Hct 26.3 % (30.3-42.9) L 02/27/20 04:18 MCV 70 fl (79-97) L 02/27/20 04:18 MCH 21 pg (28-32) L 02/27/20 04:18 MCHC 30 % (30-34) 02/27/20 04:18 RDW 18.0 % (13.2-15.2) H 02/27/20 04:18 Plt Count 513 K/mm3 (140-440) H 02/27/20 04:18 Lymph % (Auto) 3.4 % (13.4-35.0) L 02/25/20 03:49 [place] % (Auto) 5.5 % (0.0-7.3) 02/25/20 03:49 Eos % (Auto) 0.1 % (0.0-4.3) 02/25/20 03:49 Baso % (Auto) 0.2 % (0.0-1.8) 02/25/20 03:49 Lymph # 1.0 K/mm3 (1.2-5.4) L 02/25/20 03:49 [place] # 1.0 K/mm3 (0.0-0.8) H 02/25/20 03:49 Eos # 0.0 K/mm3 (0.0-0.4) 02/25/20 03:49 Baso # 0.1 K/mm3 (0.0-0.1) 02/25/20 03:49 Seg 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 (12.2-14.9) 02/25/20 03:49 INR 1.03 (0.87-1.13) 02/25/20 03:49 ABG pH 7.347 pH Units (7.350-7.450) L 03/01/20 04:05 POC ABG pCO2 35.0 mmHg (32.0-48.0) 02/29/20 18:24 ABG pCO2 29.4 mm Hg 03/01/20 04:05 POC ABG pO2 83.7 mmHg (83-108) 02/29/20 18:24 ABG pO2 133.5 mm Hg (80.0-90.0) H 03/01/20 04:05 POC ABG HCO3 15.7 02/29/20 18:24 ABG HCO3 15.8 mmol/L (20.0-26.0) L 03/01/20 04:05 ABG O2 Saturation 98.6 % (95.0-99.0) 03/01/20 04:05 ABG O2 Content 10.6 (0.0-44) 03/01/20 04:05 POC ABG Base Excess -10.2 02/29/20 18:24 ABG Base Excess -8.9 mmol/L (-2.0-3.0) L 03/01/20 04:05 ABG Hemoglobin 7.6 gm/dl (12.0-16.0) L 03/01/20 04:05 ABG Oxyhemoglobin 93.4 (94-98) L 02/29/20 18:24 ABG Carboxyhemoglobin 1.8 % (0.0-5.0) 03/01/20 04:05 ABG Methemoglobin 0.5 % (0.0-1.5) 03/01/20 04:05 Oxyhemoglobin 96.3 % (95.0-99.0) 03/01/20 04:05 Carboxyhemoglobin 1.0 (0.5-1.5) 02/29/20 18:24 FiO2 40 % 03/01/20 04:05 Sodium 144 mmol/L (137-145) 03/01/20 04:37 Potassium 4.3 mmol/L (3.6-5.0) 03/01/20 04:37 Chloride 107.6 mmol/L (98-107) H 03/01/20 04:37 Carbon Dioxide 14 mmol/L (22-30) L 03/01/20 04:37 Anion Gap 27 mmol/L 03/01/20 04:37 BUN 83 mg/dL (7-17) H 03/01/20 04:37 Creatinine 5.6 mg/dL (0.6-1.2) H 03/01/20 04:37 Estimated GFR 10 ml/min 03/01/20 04:37 BUN/Creatinine Ratio 15 % 03/01/20 04:37 Glucose 81 mg/dL (65-100) 03/01/20 04:37 POC Glucose 81 (70-105) 03/01/20 05:32 Lactic Acid 0.90 mmol/L (0.7-2.0) 02/27/20 19:33 Calcium 8.7 mg/dL (8.4-10.2) 03/01/20 04:37 Phosphorus 6.10 mg/dL (2.5-4.5) H 03/01/20 04:37 Magnesium 2.40 mg/dL (1.7-2.3) H 03/01/20 04:37 Total Bilirubin 0.40 mg/dL (0.1-1.2) 02/29/20 14:22 Direct Bilirubin 0.2 mg/dL (0-0.2) 02/29/20 14:22 Indirect Bilirubin 0.2 mg/dL 02/29/20 14:22 AST 30 units/L (5-40) 02/29/20 14:22 ALT 14 units/L (7-56) 02/29/20 14:22 Alkaline Phosphatase 80 units/L (35-129) 02/29/20 14:22 C-Reactive Protein 37.30 mg/dL (0.00-1.30) H 02/27/20 04:18 Total Protein 6.6 g/dL (6.3-8.2) 02/29/20 14:22 Albumin 2.3 g/dL (3.9-5) L 02/29/20 14:22 Albumin/Globulin Ratio 0.5 % 02/29/20 14:22 Triglycerides 118 mg/dL (2-149) 02/26/20 04:39 Lipase 155 units/L (13-60) H 02/28/20 05:07 HCG, Qual Negative (Negative) 02/24/20 02:53 PTH Intact 911.3 pg/mL (15-65) H 02/26/20 08:15 Urine Color Yellow (Yellow) 02/24/20 Unknown Urine Turbidity Clear (Clear) 02/24/20 Unknown Urine pH 6.0 (5.0-7.0) 02/24/20 Unknown Ur Specific [place] 1.020 (1.003-1.030) 02/24/20 Unknown Urine Protein >500 mg/dL (Negative) 02/24/20 Unknown Urine Glucose (UA) 50 mg/dL (Negative) 02/24/20 Unknown Urine Ketones Neg mg/dL (Negative) 02/24/20 Unknown Urine Blood Lg (Negative) 02/24/20 Unknown Urine Nitrite Neg (Negative) 02/24/20 Unknown Urine Bilirubin Neg (Negative) 02/24/20 Unknown Urine Urobilinogen < 2.0 mg/dL (<2.0) 02/24/20 Unknown Ur Leukocyte Esterase Neg (Negative) 02/24/20 Unknown Urine WBC (Auto) 11.0 /HPF (0.0-6.0) H 02/24/20 Unknown Urine RBC (Auto) 149.0 /HPF (0.0-6.0) 02/24/20 Unknown U Epithel Cells (Auto) 5.0 /HPF (0-13.0) 02/24/20 Unknown Urine Bacteria (Auto) 1+ /HPF (Negative) 02/24/20 Unknown Urine Mucus Few /HPF 02/24/20 Unknown Urine Creatinine 161.0 mg/dL (0.1-20.0) H 02/25/20 22:55 Protein/Creatinin Ratio 0.93 02/25/20 22:55 Urine Total Protein 150 mg/dL (5-11.8) H 02/25/20 22:55 Proteinase 3 (PR3) Ab <1.0 AI (<1.0) 02/26/20 04:39 Myeloperoxidase Ab <1.0 AI (<1.0) 02/26/20 04:39 Microbiology: Microbiology 02/26/20 18:56 Peripheral/Venous Blood Culture - Preliminary NO GROWTH AFTER 72 HOURS 02/26/20 18:56 Peripheral/Venous Blood Culture - Preliminary NO GROWTH AFTER 72 HOURS 02/26/20 17:00 Urine,Catheterized - Straight Catheter Urine Culture - Final NO GROWTH AFTER 48 HOURS - Diagnostic Impressions Diagnostic Impressions: Echocardiogram 02/26/20 09:11 Transthoracic Echocardiogram Indication: Cardiomegaly BP: 149/92 HR: 122 Conclusions *Global left ventricular systolic function is normal. *The estimated ejection fraction is 60-65%. *Moderate to severe concentric left ventricular hypertrophy is observed. *The left atrium is mild to moderately dilated. *The aortic valve leaflets are moderately thickened. *A mean gradient of 22.39 mmHg across the outflow tract is likely not due to but hyperdynamic flow and LVH. *There is trace tricuspid regurgitation. Findings Left Ventricle: The left ventricular chamber size is normal. Moderate to severe concentric left ventricular hypertrophy is observed. Global left ventricular systolic function is normal. The estimated ejection fraction is 60-65%. Left Atrium: The left atrium is mild to moderately dilated. Right Ventricle: The right ventricular cavity size is normal. The right ventricular global systolic function is normal. Right Atrium: The right atrial cavity size is normal. Aortic Valve: The aortic valve leaflets are moderately thickened. There is no evidence of aortic regurgitation. The mean gradient of the aortic valve is 22.39 mmHg. Mitral Valve: The mitral valve leaflets are mildly thickened. There is trace of mitral regurgitation. There is no evidence of mitral stenosis. Tricuspid Valve: There is trace tricuspid regurgitation. No pulmonary hypertension is noted. Pulmonic Valve: There is trace pulmonic regurgitation. Pericardium: There is no pericardial effusion. Aorta: There is no dilatation of the ascending aorta. There is no dilatation of the aortic root. Venous: The inferior vena cava appears normal in size. Measurements Chambers 2D Name Value Normal Range IVSd (2D) 1.8 cm (0.6 - 1.1) LVPWd (2D) 1.74 cm (0.6 - 1.1) LVIDd (2D) 4.57 cm (3.7 - 5.6) LVIDs (2D) 2.73 cm (2 - 3.8) LV FS (2D) 40.27 % - EF Teichholz (2D) 71.04 % - Ao root diameter (2D) 2.79 cm (2 - 3.7) Volumes/Mass Name Value Normal Range LA ESV SP 4CH (A/L) 54.18 ml - LA ESV SP 2CH (A/L) 61.84 ml - LA ESV BP (A/L) 58.1 ml - LA ESV BP (A/L) index 30.74 ml/m2 - LA ESV SP 4CH (MOD) 52.89 ml - LA ESV SP 2CH (MOD) 60.65 ml - LA ESV BP (MOD) 56.77 ml - LA ESV BP (MOD) index 30.04 ml/m2 - LV EDV SP 4CH (MOD) 164.2 ml - LV ESV SP 4CH (MOD) 58.04 ml - EF SP 4CH (MOD) 64.65 % - Diastolic/Systolic Function Name Value Normal Range MV E-wave Vmax 1.38 m/sec - MV deceleration time 92.78 msec - MV A-wave Vmax 1.44 m/sec - MV E:A ratio 0.95 ratio - Aortic Valve Name Value Normal Range AV Vmax 3.08 m/sec - AV VTI 36.74 cm - AV peak gradient 37.98 mmHg - AV mean gradient 22.39 mmHg - LVOT diameter 2.01 cm - LVOT Vmax 2.45 m/sec - LVOT VTI 29.85 cm - LVOT peak gradient 24.04 mmHg - LVOT mean gradient 11.11 mmHg - SV LVOT 94.73 ml - JADA (continuity Vmax) 2.52 cm2 - JADA (continuity VTI) 2.58 cm2 - Ascending Ao 2.64 cm - Mitral Valve Name Value Normal Range MV PHT 37.88 msec - MVA (PHT) 5.81 cm2 - Tricuspid Valve Name Value Normal Range IVC diameter 1.93 cm (1.2 - 2.3) Pulmonic Valve/Qp:Qs Name Value Normal Range PV Vmax 2.83 m/sec - PV VTI 45.88 cm - PV peak gradient 32.06 mmHg - PV mean gradient 16.11 mmHg - NV end-diastolic Vmax 0.81 m/sec - RVOT Vmax 1.82 m/sec - RVOT VTI 25.12 cm - RVOT peak gradient 13.3 mmHg - Franks/IV: Voiding Method External Female Catheter IV Catheter Type [Left Upper INT / Saline Lock arm] IV Catheter Type [Right Upper INT / Saline Lock arm] IV Catheter Type [Right INT / Saline Lock Forearm] IV Catheter Type [Right Wrist] Peripheral IV IV Catheter Type [Right Peripheral IV Antecubital] Active Medications - Current Medications Current Medications: Generic Name Dose Route Start Last Admin Trade Name Freq PRN Reason Stop Dose Admin Acetaminophen 650 mg 02/26/20 16:23 02/26/20 16:37 Tylenol PO 650 mg Q4H PRN Administration Pain, Mild (1-3)/ Temp >100. Albuterol 2.5 mg 02/27/20 17:55 Proventil IH Q4HRT PRN Shortness Of Breath Albuterol/Ipratropium 1 ampul 02/28/20 12:17 03/01/20 07:31 Duoneb *Not For Prn Use* IH 1 ampul Q6HRT INDU Administration Amlodipine Besylate 10 mg 02/28/20 10:00 02/29/20 11:00 Amlodipine PO 10 mg QDAY INDU Administration Dextrose 50 ml 02/29/20 08:00 03/01/20 00:20 D50w (25gm) Syringe IV 10 ml Q30MIN PRN Administration HYPOGLYCEMIA Protocol Fentanyl 50 mcg 02/29/20 15:35 02/29/20 16:10 Sublimaze IV 50 mcg Q10MIN PRN Administration ANALGESIA Haloperidol Lactate 5 mg 02/28/20 11:30 02/28/20 11:51 Haldol IV 5 mg Q1H PRN Administration Unrespon. to mult. doses BZD's Heparin Sodium (Porcine) 5,000 unit 02/24/20 14:00 03/01/20 06:44 Heparin SUB-Q 5,000 unit Q8HR INDU Administration Hydralazine HCl 50 mg 02/28/20 14:00 03/01/20 06:41 Apresoline PO Not Given Q8HR INDU Hydrophilic Ointment 1 applic 02/29/20 15:35 Vaseline Lip Therapy TP Q2HR PRN Dry Lips Nicardipine HCl 50 mg/ Sodium 250 mls @ 25 mls/hr 02/24/20 07:00 02/28/20 12:51 Chloride IV 0 mg/hr TITR INDU 0 mls/hr Titration Protocol 5 MG/HR Piperacillin Sod/Tazobactam Sod 2.25 gm in 50 mls @ 100 mls/hr 02/26/20 18:30 03/01/20 02:15 Zosyn/Ns 2.25 Gm/50ml IV 100 mls/hr Q8H INDU Administration Protocol Fentanyl Citrate 2,000 mcg in 100 mls @ 4.55 mls/hr 02/29/20 16:00 03/01/20 02:41 Fentanyl Drip Premix IV 4 mcg/kg/hr TITR INDU 18.2 mls/hr Administration Protocol 1 MCG/KG/HR Midazolam HCl 100 mg/ Sodium 100 mls @ 2 mls/hr 02/29/20 16:00 02/29/20 17:30 Chloride IV 5 mg/hr TITR INDU 5 mls/hr Titration Protocol 2 MG/HR Propofol 1,000 mg in 100 mls @ 2.73 mls/hr 02/29/20 18:00 Diprivan 10 Mg/Ml IV TITR INDU Protocol 5 MCG/KG/MIN Labetalol HCl 10 mg 02/28/20 09:00 Labetalol IV Q4H PRN Hypertension Lorazepam 1 mg 02/28/20 04:20 02/28/20 11:05 Ativan IV 1 mg Q4H PRN Administration Agitation Lorazepam 2 mg 02/28/20 11:30 02/29/20 11:43 Ativan IV 2 mg Q1H PRN Administration CIWA-Ar 8-15 Lorazepam 4 mg 02/28/20 11:30 02/29/20 16:19 Ativan IV 4 mg Q1H PRN Administration CIWA-Ar 16-25 Metoprolol Tartrate 25 mg 02/28/20 10:00 02/29/20 22:00 Metoprolol PO Not Given BID INDU Midazolam HCl 2 mg 02/29/20 15:35 02/29/20 17:00 Versed IV 2 mg Q10MIN PRN Administration Sedation Multi-Ingred Cream/Lotion/Oil/Oint 1 applic 02/29/20 15:35 Artificial Tears Ophth Oint OU Q4HR PRN Dry Eye(s) Ondansetron HCl 4 mg 02/24/20 06:45 02/25/20 23:33 Zofran IV 4 mg Q8H PRN Administration Nausea And Vomiting Pantoprazole Sodium 40 mg 02/24/20 13:00 02/29/20 10:51 Protonix IV 40 mg QDAY INDU Administration Sodium Bicarbonate 650 mg 02/28/20 14:00 02/29/20 22:00 Sodium Bicarbonate PO Not Given TID NIDU Sodium Chloride 10 ml 02/24/20 10:00 02/29/20 22:00 Sodium Chloride Flush Syringe 10 Ml IV 10 ml BID INDU Administration Sodium Chloride 10 ml 02/24/20 06:45 Sodium Chloride Flush Syringe 10 Ml IV PRN PRN LINE FLUSH Nutrition/Malnutrition Assess - Dietary Evaluation Nutrition/Malnutrition Findings: Nutrition Notes Start: 02/24/20 13:42 Freq: Status: Active Protocol: Document 02/28/20 14:09 [email or web address] (Rec: 02/28/20 14:51 [email or web address]) Co-Sign 02/28/20 14:09 LP Nutrition Notes Initial or Follow up Reassessment Current Diagnosis Acute Kidney Injury, Hypertension,Hyperlipidemia Other Pertinent Diagnosis Acute pancreatitis Current Diet Clear Liquids Labs/Tests BUN 60 Cr 4.2 Lipase 155 Pertinent Medications Reviewed Height 5 ft 1 in Weight 91 kg Kimberly Body Weight (kg) 47.72 BMI 37.9 Weight Status Obese Subjective/Other Information F/U for diet advancement. Per RN, Pt on Bipap and no intakes . Pt combative and unable to give education. Percent of energy/protein needs met: 0%/0% Burn Absent Trauma Absent GI Symptoms None Current % PO Negligible Minimum of two criteria No physical signs of malnutrition Fluid Accumulation Moderate to Severe (severe) #2 Nutrition Diagnosis Inadequate oral intake Diagnosis Progress(for reassessment Continues documentation) #1 Nutrition Diagnosis Food and nutrition-related knowledge deficit Diagnosis Progress(for reassessment Continues documentation) Is patient on ventilator? No Is Patient Ambulatory and/or Out of Bed Yes REE-([place]-St. Jeor-ambulatory/OOB) [ 1972.594 [id number]] Kcal/Kg value to use for calculation 16 Approximate Energy Requirements Using 1456 kcal/Kg Calculation Used for Recommendations Kcal/kg Additional Notes Pro: 55-82.8 (0.8-1.2g/kg AdjBW 69kg) Fluid: 1ml/kcal Nutrition Intervention Change Diet Order: advance diet when medically feasible Add Supplement/Snack (indicate name/kcal Ensure Clear TID /protein ) Provides kCal: 720 Provides Protein (gm) 24 Goal #1 Diet advancement Anticipated Discharge Needs: Undetermined at this time Follow-Up By: 03/03/20 Additional Comments F/U for diet advancement and intakes
[2020-03-01 08:17] LABS: Albumin 2.8 g/dL (3.8-4.8); Gamma Globulin 1.2 g/dL (0.8-1.7)
[2020-03-01] MEDS ORDERED: LIPASE 10,500/PROTEASE 25,000/AMYLASE 43,750 (UNITS) DR CAP FEEDTUBE PRN (08:46)
[2020-03-01] MEDS ORDERED: SODIUM BICARBONATE 325 MG TAB FEEDTUBE PRN (08:46)
[2020-03-01] MEDS ORDERED: SIMPLE SYRUP 15 ML FEEDTUBE PRN ×2 (08:46)
[2020-03-01] MEDS: METOPROLOL TARTRATE 25 MG TAB PO SCH ×2 (09:53→22:19)
[2020-03-01] MEDS: amLODIPine 10 MG TAB PO SCH (09:53)
[2020-03-01] MEDS: PANTOPRAZOLE 40 MG INJ IV SCH (09:53)
--- NOTE | 2020-03-01 10:07 | Progress Note ---
Assessment and Plan Cultures: Urine culture grew 10-100,000 usual skin xavier. Blood culture 02/26/2020 no growth today Assessment: 39 years old female with history of hypertension, previous kidney stone, hyperlipidemia and obesity admitted on 02/24/2020 due to a week history of severe epigastric abdominal pain radiated to the right flank and back: #Acute sepsis: leukocytosis improving, remains with low-grade fever. Urinalysis with minimal pyuria however negative leukocyte esterase. Doubt UTI. Likely secondary to severe pancreatitis +/- DTs. #Acute severe pancreatitis: ? Worsening. Unclear etiology. Initial noncontrasted CT shows no evidence of necrosis or pseudocyst or abscess fo rmation. No evidence of infected necrotic pancreatitis. Repeat CT shows Interval worsening of inflammatory changes to the pancreatic parenchyma extending now to the pancreatic body with significant interval worsening of peripancreatic fat stranding and surrounding disorganized fluid. #JUANIS: Likely secondary to pancreatitis, worsening, renal on board #Acute respiratory hypoxic failure: ? ARDS secondary to pancreatitis. Chest x- ray with new left lower lobe infiltrate. #Alcohol abuse ?DTs Recommendations: -f/u blood culture -f/u MRCP -pending, when stable -Continue zosyn renally adjusted. Given no evidence of infected necrotic pancreatitis or positive blood culture will probably stop soon. -Bowel rest -Pain management -Monitor creatinine and leukocytosis -ordered CBC and CMP -GI medicine on board Dr. Graves will be rounding on Monday Will follow. Nallely Ty MD Infectious Diseases Is [facility] M [phone] O [phone] Subjective Date of service: 03/01/20 Principal diagnosis: HTNsive urgency; Morbid obesity; Ac. pancreatitis; Abdominal pain Interval history: Patient is now intubated overnight, minimal ventilator settings due to airway protection and tachypnea, remains with low-grade fever T-max 100.8. Sedated on fentanyl and Versed. Tachycardic on monitor. Objective - Exam Narrative Exam: General appearance: Sedated now intubated Eyes: anicteric sclerae, limited HENT: Atraumatic; oropharynx endotracheal tube in place Lungs: Diminished breath sounds bilaterally CV: Tachycardic Abdomen: Tense, distended, decreased bowel sounds Extremities: no edema, no cyanosis Skin: No rash. Psych: Sedated Neuro: Sedated - Constitutional Vitals: Vital Signs Temp Pulse Resp BP Pulse Ox 99.8 F H 100 H 25 H 140/72 98 03/01/20 03:05 03/01/20 09:53 03/01/20 07:31 03/01/20 09:53 03/01/20 07:31 Temperature -Last 24 Hours Temperature 99.8 F Temperature 99.8 F Temperature 99.4 F Temperature 99.0 F - Labs CBC & Chem 7: 02/27/20 04:18 03/01/20 04:37 Labs: Abnormal lab results 02/26/20 02/29/20 02/29/20 Range/Units 04:39 12:04 12:31 ABG pH 7.212 L (7.320-7.450) ABG pO2 (80.0-90.0) mm Hg ABG HCO3 (20.0-26.0) mmol/L ABG Base Excess (-2.0-3.0) mmol/L ABG Hemoglobin 7.4 L (12.0-17.5) ABG Oxyhemoglobin (94-98) Chloride (98-107) mmol/L Carbon Dioxide (22-30) mmol/L BUN (7-17) mg/dL Creatinine (0.6-1.2) mg/dL POC Glucose 64 L (70-105) Phosphorus (2.5-4.5) mg/dL Magnesium (1.7-2.3) mg/dL Albumin 2.8 L (3.8-4.8) g/dL Tmpbj-9-Dtignrrax 0.7 H (0.2-0.3) g/dL PEP Interpretation see below H Lipase (13-60) units/L 02/29/20 02/29/20 02/29/20 Range/Units 14:22 14:22 18:20 ABG pH (7.320-7.450) ABG pO2 (80.0-90.0) mm Hg ABG HCO3 (20.0-26.0) mmol/L ABG Base Excess (-2.0-3.0) mmol/L ABG Hemoglobin (12.0-17.5) ABG Oxyhemoglobin (94-98) Chloride (98-107) mmol/L Carbon Dioxide 16 L (22-30) mmol/L BUN 77 H (7-17) mg/dL Creatinine 4.7 H (0.6-1.2) mg/dL POC Glucose 66 L (70-105) Phosphorus 7.50 H (2.5-4.5) mg/dL Magnesium 2.60 H (1.7-2.3) mg/dL Albumin 2.3 L (3.8-4.8) g/dL Xpcyu-3-Hmgvdvppb (0.2-0.3) g/dL PEP Interpretation Lipase (13-60) units/L 02/29/20 03/01/20 03/01/20 Range/Units 18:24 04:05 04:37 ABG pH 7.271 L 7.347 L (7.320-7.450) ABG pO2 133.5 H (80.0-90.0) mm Hg ABG HCO3 15.8 L (20.0-26.0) mmol/L ABG Base Excess -8.9 L (-2.0-3.0) mmol/L ABG Hemoglobin 7.2 L 7.6 L (12.0-17.5) ABG Oxyhemoglobin 93.4 L (94-98) Chloride 107.6 H (98-107) mmol/L Carbon Dioxide 14 L (22-30) mmol/L BUN 83 H (7-17) mg/dL Creatinine 5.6 H (0.6-1.2) mg/dL POC Glucose (70-105) Phosphorus 6.10 H (2.5-4.5) mg/dL Magnesium 2.40 H (1.7-2.3) mg/dL Albumin (3.8-4.8) g/dL Ixbxx-2-Attwcfdhb (0.2-0.3) g/dL PEP Interpretation Lipase (13-60) units/L 03/01/20 Range/Units Unknown ABG pH (7.320-7.450) ABG pO2 (80.0-90.0) mm Hg ABG HCO3 (20.0-26.0) mmol/L ABG Base Excess (-2.0-3.0) mmol/L ABG Hemoglobin (12.0-17.5) ABG Oxyhemoglobin (94-98) Chloride (98-107) mmol/L Carbon Dioxide (22-30) mmol/L BUN (7-17) mg/dL Creatinine (0.6-1.2) mg/dL POC Glucose (70-105) Phosphorus (2.5-4.5) mg/dL Magnesium (1.7-2.3) mg/dL Albumin (3.8-4.8) g/dL Ujidz-9-Fllgcmrga (0.2-0.3) g/dL PEP Interpretation Lipase 297 H (13-60) units/L
[2020-03-01 12:15] LABS: Calcium 9.5 mg/dL (8.4-10.2)
[2020-03-01 12:52] LABS: C-Reactive Protein 36.5 mg/dL (0.00-1.30)
--- NOTE | 2020-03-01 15:34 | Progress Note ---
Assessment and Plan Acute Hypoxemic Respiratory Failure on MVS Severe Sepsis Acute Toxic-Metabolic Encephalopathy Hypertensive urgency Morbid obesity Acute pancreatitis, abdominal pain Medical non compliance Oropharyngeal Dysphagia - begin flomax 0.4 mg p.o. daily (1st dose now) - prn bladder scans +/- straight cath in short term - azotemia per nephrology, may be headed towards dialysis - continue current vent settings - continue fentanyl and Versed for sedation - contiunue care as below otherwise; - daily SAT and SBT assessment as tolerated - accuchecks with glycemic control per SSI (While critically ill target blood glucose of 140-180 mg/dL; avoid hypoglycemia) - sedation prn for target RASS -1 to -2 - continue to wean supplemental oxygen for target O2 sat's > 90% acutely - VAP bundle addressed - continue lung protective strategies - continue bronchodilators with pulmonary hygiene per RT - wean per pulmonary driven protocols otherwise - continue enteral nutritiuon at goal rate as tolerated - continue Zosyn; de-escalate per ID rec's - continue Nicardipine for her blood pressure management till taking orally (target BP < 160 mmHg) - JUANIS per first sampler - Evaluation for sleep apnea as an outpatient - VTE prophylaxis - prn Analgesia per CPOT score - avoid nephrotoxins, renally dose all medications - Maintenance of sleep-wake cycle, avoid delirium - G.I. & VTE prophylaxis - PT/OT/ROM exercises - mobility protocols for pressure ulcer prophylaxis - Monitor hemodynamics closely - continue other care per attending / other consultants - discharge planning ongoing concurrently ..... re-evaluate in am & prn CONDITION: CRITICAL PROGNOSIS: GUARDED CODE STATUS: FULL CODE The high probability of a clinically significant, sudden or life-threatening deterioration of the [respiratory, cardiovascular & GI] system(s) required my full and direct attention, intervention and personal management. The aggregate critical care time was [32] minutes without overlap. Time includes spent on; [x] Data Review and interpretation [x] Patient assessment and monitoring of vital signs [x] Documentation [x] Medication orders and management Subjective Date of service: 03/01/20 Principal diagnosis: HTNsive urgency; Morbid obesity; Ac. pancreatitis; Ab dominal pain Interval history: Patient is seen today for: Hypertensive urgency; Morbid obesity; Acute pancreatitis; abdominal pain; Medical non compliance; Acute Toxic Metabolic Encephalopathy Seen and examined at bedside; 24hour events reviewed; nursing and respiratory care staff consulted; no adverse overnight events reported to me; resting peacefully in bed; remains on MVS; calm; not voiding and with high residuals per RN; no emesis or overt aspiration Objective Vital Signs - 12hr 03/01/20 03/01/20 03/01/20 03:45 03:53 04:00 Temperature Pulse Rate 86 90 Pulse Rate [ 89 Anterior Bilateral Throughout] Pulse Rate [ From Monitor] Respiratory 25 H 25 H Rate Respiratory Rate [Abdomen] Respiratory 25 H Rate [Anterior Bilateral Throughout] Blood Pressure 122/69 128/105 O2 Sat by Pulse 100 100 Oximetry 03/01/20 03/01/20 03/01/20 04:02 04:15 04:30 Temperature Pulse Rate 89 90 91 H Pulse Rate [ Anterior Bilateral Throughout] Pulse Rate [ From Monitor] Respiratory 25 H 25 H Rate Respiratory Rate [Abdomen] Respiratory Rate [Anterior Bilateral Throughout] Blood Pressure 125/66 124/65 O2 Sat by Pulse 100 100 100 Oximetry 03/01/20 03/01/20 03/01/20 04:45 05:00 05:15 Temperature Pulse Rate 92 H 92 H 92 H Pulse Rate [ Anterior Bilateral Throughout] Pulse Rate [ From Monitor] Respiratory 25 H 25 H 25 H Rate Respiratory Rate [Abdomen] Respiratory Rate [Anterior Bilateral Throughout] Blood Pressure 130/67 128/67 127/71 O2 Sat by Pulse 100 100 100 Oximetry 03/01/20 03/01/20 03/01/20 05:30 05:45 05:53 Temperature Pulse Rate 91 H 92 H Pulse Rate [ Anterior Bilateral Throughout] Pulse Rate [ From Monitor] Respiratory 25 H 25 H Rate Respiratory Rate [Abdomen] Respiratory Rate [Anterior Bilateral Throughout] Blood Pressure 133/66 130/72 O2 Sat by Pulse 100 100 98 Oximetry 03/01/20 03/01/20 03/01/20 06:00 06:15 06:30 Temperature Pulse Rate 91 H 92 H 92 H Pulse Rate [ Anterior Bilateral Throughout] Pulse Rate [ From Monitor] Respiratory 25 H 25 H 25 H Rate Respiratory Rate [Abdomen] Respiratory Rate [Anterior Bilateral Throughout] Blood Pressure 130/73 133/73 134/70 O2 Sat by Pulse 100 98 97 Oximetry 03/01/20 03/01/20 03/01/20 06:45 07:00 07:15 Temperature Pulse Rate 93 H 94 H 93 H Pulse Rate [ Anterior Bilateral Throughout] Pulse Rate [ From Monitor] Respiratory 25 H 25 H 25 H Rate Respiratory Rate [Abdomen] Respiratory Rate [Anterior Bilateral Throughout] Blood Pressure 133/72 139/71 131/71 O2 Sat by Pulse 97 98 98 Oximetry 03/01/20 03/01/20 03/01/20 07:30 07:31 07:45 Temperature Pulse Rate 94 H 93 H 94 H Pulse Rate [ 94 H Anterior Bilateral Throughout] Pulse Rate [ From Monitor] Respiratory 25 H 25 H Rate Respiratory Rate [Abdomen] Respiratory 25 H Rate [Anterior Bilateral Throughout] Blood Pressure 138/70 138/70 136/70 O2 Sat by Pulse 98 98 98 Oximetry 03/01/20 03/01/20 03/01/20 08:00 08:15 08:30 Temperature 100.6 F H Pulse Rate 101 H 101 H 102 H Pulse Rate [ Anterior Bilateral Throughout] Pulse Rate [ 102 H From Monitor] Respiratory 25 H 25 H 25 H Rate Respiratory Rate [Abdomen] Respiratory Rate [Anterior Bilateral Throughout] Blood Pressure 153/72 145/70 137/70 O2 Sat by Pulse 96 96 96 Oximetry 03/01/20 03/01/20 03/01/20 08:45 09:00 09:15 Temperature Pulse Rate 102 H 103 H 102 H Pulse Rate [ Anterior Bilateral Throughout] Pulse Rate [ From Monitor] Respiratory 25 H 25 H 25 H Rate Respiratory Rate [Abdomen] Respiratory Rate [Anterior Bilateral Throughout] Blood Pressure 139/69 144/76 136/72 O2 Sat by Pulse 96 97 97 Oximetry 03/01/20 03/01/20 03/01/20 09:30 09:45 09:53 Temperature Pulse Rate 101 H 100 H 99 H Pulse Rate [ Anterior Bilateral Throughout] Pulse Rate [ From Monitor] Respiratory 25 H 25 H Rate Respiratory Rate [Abdomen] Respiratory Rate [Anterior Bilateral Throughout] Blood Pressure 145/71 140/72 140/72 O2 Sat by Pulse 97 97 Oximetry 03/01/20 03/01/20 03/01/20 10:00 10:15 10:30 Temperature Pulse Rate 102 H 103 H 98 H Pulse Rate [ Anterior Bilateral Throughout] Pulse Rate [ From Monitor] Respiratory 25 H 25 H 25 H Rate Respiratory 25 H Rate [Abdomen] Respiratory Rate [Anterior Bilateral Throughout] Blood Pressure 147/75 140/74 136/77 O2 Sat by Pulse 97 95 96 Oximetry 03/01/20 03/01/20 03/01/20 10:45 11:00 11:09 Temperature Pulse Rate 95 H 93 H 97 H Pulse Rate [ Anterior Bilateral Throughout] Pulse Rate [ From Monitor] Respiratory 25 H 25 H Rate Respiratory Rate [Abdomen] Respiratory Rate [Anterior Bilateral Throughout] Blood Pressure 129/75 129/74 136/77 O2 Sat by Pulse 97 97 97 Oximetry 03/01/20 03/01/20 03/01/20 11:15 11:30 11:45 Temperature Pulse Rate 93 H 94 H 93 H Pulse Rate [ Anterior Bilateral Throughout] Pulse Rate [ From Monitor] Respiratory 25 H 25 H 25 H Rate Respiratory Rate [Abdomen] Respiratory Rate [Anterior Bilateral Throughout] Blood Pressure 134/81 142/80 139/80 O2 Sat by Pulse 97 97 96 Oximetry 03/01/20 03/01/20 12:00 13:50 Temperature 99.8 F H Pulse Rate 92 H 92 H Pulse Rate [ Anterior Bilateral Throughout] Pulse Rate [ 91 H From Monitor] Respiratory 25 H Rate Respiratory Rate [Abdomen] Respiratory Rate [Anterior Bilateral Throughout] Blood Pressure 133/75 135/78 O2 Sat by Pulse 97 Oximetry Constitutional: no acute distress, other (Obese female with mildly increased respiratory effort at rest on MVS) Eyes: non-icteric ENT: oropharynx moist, other (ETT 24 cm TY) Neck: supple, no lymphadenopathy, no JVD Effort: mildly labored Ascultation: Bilateral: diminished breath sounds, rhonchi (scant) Percussion: Bilateral: not dull Cardiovascular: regular rate and rhythm, other (S1,S2) Gastrointestinal: normoactive bowel sounds, soft, tender (epigastrium), non- distended Integumentary: normal Extremities: no cyanosis, no edema, pulses normal, no ischemia or petechiae Neurologic: normal mental status, non-focal exam, pupils equal and round, motor strength normal and Psychiatric: other (delirious) CBC and BMP: 02/27/20 04:18 03/01/20 11:06 ABG, PT/INR, D-dimer: ABG ABG pH 7.347 pH Units (7.350-7.450) L 03/01/20 04:05 POC ABG pCO2 35.0 mmHg (32.0-48.0) 02/29/20 18:24 ABG pCO2 29.4 mm Hg 03/01/20 04:05 POC ABG pO2 83.7 mmHg (83-108) 02/29/20 18:24 ABG pO2 133.5 mm Hg (80.0-90.0) H 03/01/20 04:05 POC ABG HCO3 15.7 02/29/20 18:24 ABG O2 Saturation 98.6 % (95.0-99.0) 03/01/20 04:05 PT/INR, D-dimer PT 13.7 Sec. (12.2-14.9) 02/25/20 03:49 INR 1.03 (0.87-1.13) 02/25/20 03:49 Abnormal lab findings: Abnormal Labs 02/24/20 02/24/20 02/24/20 02:53 02:53 Unknown WBC 12.7 H Hgb 10.0 L Hct MCV 70 L MCH 22 L RDW 17.9 H Plt Count 458 H Lymph % (Auto) 8.9 L Lymph # 1.1 L [place] # Seg Neutrophils % 84.2 H Seg Neutrophils # 10.7 H ABG pH POC ABG pO2 ABG pO2 ABG HCO3 ABG O2 Saturation ABG Base Excess ABG Hemoglobin ABG Oxyhemoglobin Oxyhemoglobin Sodium Potassium Chloride Carbon Dioxide BUN 27 H Creatinine 1.7 H Glucose 118 H POC Glucose Calcium Phosphorus Magnesium Albumin C-Reactive Protein [id number] PEP Interpretation Lipase 232 H PTH Intact Urine WBC (Auto) 11.0 H Urine Creatinine Urine Total Protein 02/25/20 02/25/20 02/25/20 00:03 03:49 03:49 WBC 29.1 H Hgb 9.4 L Hct 30.2 L MCV 71 L MCH 22 L RDW 18.3 H Plt Count 525 H Lymph % (Auto) 3.4 L Lymph # 1.0 L [place] # 1.0 H Seg Neutrophils % Seg Neutrophils # 26.4 H ABG pH POC ABG pO2 ABG pO2 ABG HCO3 ABG O2 Saturation ABG Base Excess ABG Hemoglobin ABG Oxyhemoglobin Oxyhemoglobin Sodium Potassium Chloride Carbon Dioxide BUN Creatinine Glucose POC Glucose 126 H Calcium Phosphorus Magnesium Albumin C-Reactive Protein Ugjof-6-Ylgmerazl PEP Interpretation Lipase 1486 H PTH Intact Urine WBC (Auto) Urine Creatinine Urine Total Protein 02/25/20 02/25/20 02/25/20 03:49 05:55 22:55 WBC Hgb Hct MCV MCH RDW Plt Count Lymph % (Auto) Lymph # [place] # Seg Neutrophils % Seg Neutrophils # ABG pH POC ABG pO2 ABG pO2 ABG HCO3 ABG O2 Saturation ABG Base Excess ABG Hemoglobin ABG Oxyhemoglobin Oxyhemoglobin Sodium 136 L Potassium Chloride 97.9 L Carbon Dioxide 21 L BUN 39 H Creatinine 3.0 H D Glucose 118 H POC Glucose 124 H Calcium Phosphorus Magnesium Albumin 3.6 L C-Reactive Protein [id number]-[id number] PEP Interpretation Lipase PTH Intact Urine WBC (Auto) Urine Creatinine 161.0 H Urine Total Protein 150 H 02/26/20 02/26/20 02/26/20 04:39 04:39 04:39 WBC 30.3 H Hgb 9.1 L Hct 29.8 L MCV 71 L MCH 22 L RDW 18.2 H Plt Count 530 H Lymph % (Auto) Lymph # [place] # Seg Neutrophils % Seg Neutrophils # ABG pH POC ABG pO2 ABG pO2 ABG HCO3 ABG O2 Saturation ABG Base Excess ABG Hemoglobin ABG Oxyhemoglobin Oxyhemoglobin Sodium Potassium Chloride Carbon Dioxide 19 L BUN 44 H Creatinine 3.1 H Glucose 106 H POC Glucose Calcium 8.1 L Phosphorus Magnesium Albumin 2.8 L C-Reactive Protein Yddpy-5-Nyzxitwsx 0.7 H PEP Interpretation see below H Lipase 540 H PTH Intact Urine WBC (Auto) Urine Creatinine Urine Total Protein 02/26/20 02/26/20 02/27/20 08:15 12:14 04:18 WBC Hgb Hct MCV MCH RDW Plt Count Lymph % (Auto) Lymph # [place] # Seg Neutrophils % Seg Neutrophils # ABG pH POC ABG pO2 ABG pO2 ABG HCO3 ABG O2 Saturation ABG Base Excess ABG Hemoglobin ABG Oxyhemoglobin Oxyhemoglobin Sodium 135 L Potassium Chloride Carbon Dioxide 15 L BUN 50 H Creatinine 3.4 H Glucose POC Glucose 112 H Calcium 7.4 L Phosphorus Magnesium Albumin C-Reactive Protein Zypnr-2-Svbanezso PEP Interpretation Lipase PTH Intact 911.3 H Urine WBC (Auto) Urine Creatinine Urine Total Protein 02/27/20 02/27/20 02/27/20 04:18 04:18 16:57 WBC 26.8 H Hgb 7.9 L Hct 26.3 L MCV 70 L MCH 21 L RDW 18.0 H Plt Count 513 H Lymph % (Auto) Lymph # [place] # Seg Neutrophils % Seg Neutrophils # ABG pH 7.336 L POC ABG pO2 ABG pO2 57.0 L ABG HCO3 16.4 L ABG O2 Saturation 88.2 L ABG Base Excess -8.4 L ABG Hemoglobin 10.4 L ABG Oxyhemoglobin Oxyhemoglobin 85.7 L Sodium 135 L Potassium Chloride Carbon Dioxide 16 L BUN 51 H Creatinine 3.4 H Glucose POC Glucose Calcium 7.5 L Phosphorus Magnesium Albumin 3.0 L C-Reactive Protein 37.30 H Qljoi-8-Bcesbanbh PEP Interpretation Lipase 177 H PTH Intact Urine WBC (Auto) Urine Creatinine Urine Total Protein 02/28/20 02/28/20 02/28/20 05:07 05:07 05:56 WBC Hgb Hct MCV MCH RDW Plt Count Lymph % (Auto) Lymph # [place] # Seg Neutrophils % Seg Neutrophils # ABG pH POC ABG pO2 ABG pO2 ABG HCO3 ABG O2 Saturation ABG Base Excess ABG Hemoglobin ABG Oxyhemoglobin Oxyhemoglobin Sodium Potassium Chloride Carbon Dioxide 14 L BUN 60 H Creatinine 4.2 H Glucose POC Glucose 115 H Calcium 8.2 L Phosphorus Magnesium Albumin C-Reactive Protein Mhtkl-9-Twmydzyev PEP Interpretation Lipase 155 H PTH Intact Urine WBC (Auto) Urine Creatinine Urine Total Protein 02/28/20 02/28/20 02/28/20 11:05 11:05 17:39 WBC Hgb Hct MCV MCH RDW Plt Count Lymph % (Auto) Lymph # [place] # Seg Neutrophils % Seg Neutrophils # ABG pH 7.317 L POC ABG pO2 76.2 L ABG pO2 ABG HCO3 16.4 L ABG O2 Saturation ABG Base Excess -8.9 L ABG Hemoglobin 6.6 L 7.6 L ABG Oxyhemoglobin Oxyhemoglobin 94.6 L Sodium Potassium Chloride Carbon Dioxide BUN Creatinine Glucose POC Glucose 120 H Calcium Phosphorus Magnesium Albumin C-Reactive Protein Guabz-1-Bvaoybgei PEP Interpretation Lipase PTH Intact Urine WBC (Auto) Urine Creatinine Urine Total Protein 02/28/20 02/29/20 02/29/20 19:39 05:43 05:45 WBC Hgb Hct MCV MCH RDW Plt Count Lymph % (Auto) Lymph # [place] # Seg Neutrophils % Seg Neutrophils # ABG pH 7.300 L POC ABG pO2 ABG pO2 117.5 H ABG HCO3 15.0 L ABG O2 Saturation ABG Base Excess -10.5 L ABG Hemoglobin 6.4 L ABG Oxyhemoglobin Oxyhemoglobin Sodium Potassium Chloride Carbon Dioxide BUN Creatinine Glucose POC Glucose 66 L 65 L Calcium Phosphorus Magnesium Albumin C-Reactive Protein Fkffi-1-Pmllmzfcw PEP Interpretation Lipase PTH Intact Urine WBC (Auto) Urine Creatinine Urine Total Protein 02/29/20 02/29/20 02/29/20 12:04 12:31 14:22 WBC Hgb Hct MCV MCH RDW Plt Count Lymph % (Auto) Lymph # [place] # Seg Neutrophils % Seg Neutrophils # ABG pH 7.212 L POC ABG pO2 ABG pO2 ABG HCO3 ABG O2 Saturation ABG Base Excess ABG Hemoglobin 7.4 L ABG Oxyhemoglobin Oxyhemoglobin Sodium Potassium Chloride Carbon Dioxide 16 L BUN 77 H Creatinine 4.7 H Glucose POC Glucose 64 L Calcium Phosphorus Magnesium Albumin C-Reactive Protein Lwruh-2-Hahxzndoc PEP Interpretation Lipase PTH Intact Urine WBC (Auto) Urine Creatinine Urine Total Protein 02/29/20 02/29/20 02/29/20 14:22 18:20 18:24 WBC Hgb Hct MCV MCH RDW Plt Count Lymph % (Auto) Lymph # [place] # Seg Neutrophils % Seg Neutrophils # ABG pH 7.271 L POC ABG pO2 ABG pO2 ABG HCO3 ABG O2 Saturation ABG Base Excess ABG Hemoglobin 7.2 L ABG Oxyhemoglobin 93.4 L Oxyhemoglobin Sodium Potassium Chloride Carbon Dioxide BUN Creatinine Glucose POC Glucose 66 L Calcium Phosphorus 7.50 H Magnesium 2.60 H Albumin 2.3 L C-Reactive Protein Aiwfw-6-Zuqulbipz PEP Interpretation Lipase PTH Intact Urine WBC (Auto) Urine Creatinine Urine Total Protein 03/01/20 03/01/20 03/01/20 04:05 04:37 11:06 WBC Hgb Hct MCV MCH RDW Plt Count Lymph % (Auto) Lymph # [place] # Seg Neutrophils % Seg Neutrophils # ABG pH 7.347 L POC ABG pO2 ABG pO2 133.5 H ABG HCO3 15.8 L ABG O2 Saturation ABG Base Excess -8.9 L ABG Hemoglobin 7.6 L ABG Oxyhemoglobin Oxyhemoglobin Sodium Potassium 5.3 H D Chloride 107.6 H Carbon Dioxide 14 L 11 L BUN 83 H 77 H Creatinine 5.6 H 5.0 H Glucose 54 L POC Glucose Calcium Phosphorus 6.10 H Magnesium 2.40 H Albumin 3.0 L C-Reactive Protein 36.50 H Kiugd-6-Ribkuinnx PEP Interpretation Lipase PTH Intact Urine WBC (Auto) Urine Creatinine Urine Total Protein 03/01/20 Unknown WBC Hgb Hct MCV MCH RDW Plt Count Lymph % (Auto) Lymph # [place] # Seg Neutrophils % Seg Neutrophils # ABG pH POC ABG pO2 ABG pO2 ABG HCO3 ABG O2 Saturation ABG Base Excess ABG Hemoglobin ABG Oxyhemoglobin Oxyhemoglobin Sodium Potassium Chloride Carbon Dioxide BUN Creatinine Glucose POC Glucose Calcium Phosphorus Magnesium Albumin C-Reactive Protein Yzaun-3-Jqjhpktdi PEP Interpretation Lipase 297 H PTH Intact Urine WBC (Auto) Urine Creatinine Urine Total Protein Chest x-ray: image reviewed (ETT in good position; no focal infiltrate) Allied health notes reviewed: nursing
--- NOTE | 2020-03-01 16:44 | Progress Note ---
Assessment and Plan # Acute Kidney Injury/Chronic Kidney Disease: suspect JUANIS in setting of hypertensive urgency and pre-renal injury from pancreatitis. Additional JUANIS risk factors include use of NSAID (Toradol) and PPI. 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 Creatinine has worsened from 1.7->3.0->3.1->3.4->4.2->4.7->5.6->5.0 since admission, now intubated - has responded fairly well to Lasix 80mg IV x1 02/27, 120mg x1 02/28, continue with additional Lasix 120mg trial today - did speak with patient's daughter regarding potential renal replacement therapy needs, no acute indication for HD today but will need to monitor acidosis, urine output. Daughter did consent for dialysis if needed but will update her as needed - avoid NSAIDs as able - consider alternative to PPI if able - IVF as tolerated - strict Is/Os - ordered serologies-> ANCA negative; minimal proteinuria per UP/C, PTH high for CKD; reviewed urinalysis which does show hematuria and proteinuria - BP control as below # Hypertensive Emergency: BPs improved, off Cardene gtt, agree to titrate back to home amlodipine, metoprolol. On HANNA-I at home, hold for now. # Acidosis: continue po HCO3, dose increased, may need IV HCO3 but avoiding fluids # Pancreatitis: appreciate GI, pain management per primary. MRCP pending # Thrombocytosis # Leukocytosis Subjective Date of service: 03/01/20 Principal diagnosis: HTNsive urgency; Morbid obesity; Ac. pancreatitis; Abdominal pain Interval history: Intubated since last visit Objective - Exam Narrative Exam: General appearance: intubated Eyes: anicteric sclerae HENT: Atraumatic; oropharynx Lungs: mechanical breath sounds CV: RRR, no murmur Abdomen: Tense Extremities: no edema Skin: No rash. Psych: sedated Neuro: sedated - Vital Signs Vital signs: Vital Signs - 12hr 03/01/20 03/01/20 03/01/20 04:45 05:00 05:15 Temperature Pulse Rate 92 H 92 H 92 H Pulse Rate [ Anterior Bilateral Throughout] Pulse Rate [ From Monitor] Respiratory 25 H 25 H 25 H Rate Respiratory Rate [Abdomen] Respiratory Rate [Anterior Bilateral Throughout] Blood Pressure 130/67 128/67 127/71 O2 Sat by Pulse 100 100 100 Oximetry 03/01/20 03/01/20 03/01/20 05:30 05:45 05:53 Temperature Pulse Rate 91 H 92 H Pulse Rate [ Anterior Bilateral Throughout] Pulse Rate [ From Monitor] Respiratory 25 H 25 H Rate Respiratory Rate [Abdomen] Respiratory Rate [Anterior Bilateral Throughout] Blood Pressure 133/66 130/72 O2 Sat by Pulse 100 100 98 Oximetry 03/01/20 03/01/20 03/01/20 06:00 06:15 06:30 Temperature Pulse Rate 91 H 92 H 92 H Pulse Rate [ Anterior Bilateral Throughout] Pulse Rate [ From Monitor] Respiratory 25 H 25 H 25 H Rate Respiratory Rate [Abdomen] Respiratory Rate [Anterior Bilateral Throughout] Blood Pressure 130/73 133/73 134/70 O2 Sat by Pulse 100 98 97 Oximetry 03/01/20 03/01/20 03/01/20 06:45 07:00 07:15 Temperature Pulse Rate 93 H 94 H 93 H Pulse Rate [ Anterior Bilateral Throughout] Pulse Rate [ From Monitor] Respiratory 25 H 25 H 25 H Rate Respiratory Rate [Abdomen] Respiratory Rate [Anterior Bilateral Throughout] Blood Pressure 133/72 139/71 131/71 O2 Sat by Pulse 97 98 98 Oximetry 03/01/20 03/01/20 03/01/20 07:30 07:31 07:45 Temperature Pulse Rate 94 H 93 H 94 H Pulse Rate [ 94 H Anterior Bilateral Throughout] Pulse Rate [ From Monitor] Respiratory 25 H 25 H Rate Respiratory Rate [Abdomen] Respiratory 25 H Rate [Anterior Bilateral Throughout] Blood Pressure 138/70 138/70 136/70 O2 Sat by Pulse 98 98 98 Oximetry 03/01/20 03/01/20 03/01/20 08:00 08:15 08:30 Temperature 100.6 F H Pulse Rate 101 H 101 H 102 H Pulse Rate [ Anterior Bilateral Throughout] Pulse Rate [ 102 H From Monitor] Respiratory 25 H 25 H 25 H Rate Respiratory Rate [Abdomen] Respiratory Rate [Anterior Bilateral Throughout] Blood Pressure 153/72 145/70 137/70 O2 Sat by Pulse 96 96 96 Oximetry 03/01/20 03/01/20 03/01/20 08:45 09:00 09:15 Temperature Pulse Rate 102 H 103 H 102 H Pulse Rate [ Anterior Bilateral Throughout] Pulse Rate [ From Monitor] Respiratory 25 H 25 H 25 H Rate Respiratory Rate [Abdomen] Respiratory Rate [Anterior Bilateral Throughout] Blood Pressure 139/69 144/76 136/72 O2 Sat by Pulse 96 97 97 Oximetry 03/01/20 03/01/20 03/01/20 09:30 09:45 09:53 Temperature Pulse Rate 101 H 100 H 99 H Pulse Rate [ Anterior Bilateral Throughout] Pulse Rate [ From Monitor] Respiratory 25 H 25 H Rate Respiratory Rate [Abdomen] Respiratory Rate [Anterior Bilateral Throughout] Blood Pressure 145/71 140/72 140/72 O2 Sat by Pulse 97 97 Oximetry 03/01/20 03/01/20 03/01/20 10:00 10:15 10:30 Temperature Pulse Rate 102 H 103 H 98 H Pulse Rate [ Anterior Bilateral Throughout] Pulse Rate [ From Monitor] Respiratory 25 H 25 H 25 H Rate Respiratory 25 H Rate [Abdomen] Respiratory Rate [Anterior Bilateral Throughout] Blood Pressure 147/75 140/74 136/77 O2 Sat by Pulse 97 95 96 Oximetry 03/01/20 03/01/20 03/01/20 10:45 11:00 11:09 Temperature Pulse Rate 95 H 93 H 97 H Pulse Rate [ Anterior Bilateral Throughout] Pulse Rate [ From Monitor] Respiratory 25 H 25 H Rate Respiratory Rate [Abdomen] Respiratory Rate [Anterior Bilateral Throughout] Blood Pressure 129/75 129/74 136/77 O2 Sat by Pulse 97 97 97 Oximetry 03/01/20 03/01/20 03/01/20 11:15 11:30 11:45 Temperature Pulse Rate 93 H 94 H 93 H Pulse Rate [ Anterior Bilateral Throughout] Pulse Rate [ From Monitor] Respiratory 25 H 25 H 25 H Rate Respiratory Rate [Abdomen] Respiratory Rate [Anterior Bilateral Throughout] Blood Pressure 134/81 142/80 139/80 O2 Sat by Pulse 97 97 96 Oximetry 03/01/20 03/01/20 03/01/20 12:00 13:50 15:40 Temperature 99.8 F H Pulse Rate 92 H 92 H 100 H Pulse Rate [ Anterior Bilateral Throughout] Pulse Rate [ 91 H From Monitor] Respiratory 25 H Rate Respiratory Rate [Abdomen] Respiratory Rate [Anterior Bilateral Throughout] Blood Pressure 133/75 135/78 137/76 O2 Sat by Pulse 97 96 Oximetry - Lab 02/27/20 04:18 03/01/20 11:06 Most recent lab results ABG pH 7.347 pH Units (7.350-7.450) L 09/27/20 04:05 ABG pCO2 29.4 mm Hg 03/01/20 04:05 ABG pO2 133.5 mm Hg (80.0-90.0) H 03/01/20 04:05 ABG HCO3 15.8 mmol/L (20.0-26.0) L 03/01/20 04:05 ABG O2 Saturation 98.6 % (95.0-99.0) 03/01/20 04:05 Calcium 9.5 mg/dL (8.4-10.2) 03/01/20 11:06 Phosphorus 6.10 mg/dL (2.5-4.5) H 03/01/20 04:37 Magnesium 2.40 mg/dL (1.7-2.3) H 03/01/20 04:37 Urine Creatinine 161.0 mg/dL (0.1-20.0) H 02/25/20 22:55 Urine Total Protein 150 mg/dL (5-11.8) H 02/25/20 22:55 Medications & Allergies - Medications Allergies/Adverse Reactions: Allergies No Known Allergies Allergy (Unverified 09/05/19 10:15) Home Medications: Home Medications Medication Instructions Recorded Confirmed Last Taken Type Amlodipine Besylate [Norvasc] 10 mg PO DAILY 09/05/19 02/24/20 09/04/19 History Furosemide [Lasix] 20 mg PO QDAY #30 tablet 09/05/19 02/24/20 Unknown Rx Lisinopril [Zestril] 5 mg PO DAILY #30 tablet 09/05/19 02/24/20 Unknown Rx Metoprolol [Lopressor TAB] 25 mg PO BID #60 tablet 09/05/19 02/24/20 Unknown Rx Active Medications: Generic Name Dose Route Start Last Admin Trade Name Freq PRN Reason Stop Dose Admin Acetaminophen 650 mg 02/26/20 16:23 02/26/20 16:37 Tylenol PO 650 mg Q4H PRN Administration Pain, Mild (1-3)/ Temp >100. Albuterol 2.5 mg 02/27/20 17:55 Proventil IH Q4HRT PRN Shortness Of Breath Albuterol/Ipratropium 1 ampul 02/28/20 12:17 03/01/20 16:25 Duoneb *Not For Prn Use* IH 1 ampul Q6HRT INDU Administration Amlodipine Besylate 10 mg 02/28/20 10:00 03/01/20 09:53 Amlodipine PO 10 mg QDAY INDU Administration Lipase/Protease/Amylase 1 each 03/01/20 08:46 Pancreaze 10,500 Unit FEEDTUBE PRN PRN For Clogged Feeding Tube Dextrose 50 ml 02/29/20 08:00 03/01/20 00:20 D50w (25gm) Syringe IV 10 ml Q30MIN PRN Administration HYPOGLYCEMIA Protocol Fentanyl 50 mcg 02/29/20 15:35 02/29/20 16:10 Sublimaze IV 50 mcg Q10MIN PRN Administration ANALGESIA Haloperidol Lactate 5 mg 02/28/20 11:30 02/28/20 11:51 Haldol IV 5 mg Q1H PRN Administration Unrespon. to mult. doses BZD's Heparin Sodium (Porcine) 5,000 unit 02/24/20 14:00 03/01/20 13:50 Heparin SUB-Q 5,000 unit Q8HR INDU Administration Hydralazine HCl 50 mg 02/28/20 14:00 03/01/20 13:50 Apresoline PO 50 mg Q8HR INDU Administration Hydrophilic Ointment 1 applic 02/29/20 15:35 Vaseline Lip Therapy TP Q2HR PRN Dry Lips Nicardipine HCl 50 mg/ Sodium 250 mls @ 25 mls/hr 02/24/20 07:00 02/28/20 12:51 Chloride IV 0 mg/hr TITR INDU 0 mls/hr Titration Protocol 5 MG/HR Piperacillin Sod/Tazobactam Sod 2.25 gm in 50 mls @ 100 mls/hr 02/26/20 18:30 03/01/20 10:00 Zosyn/Ns 2.25 Gm/50ml IV 100 mls/hr Q8H INDU Administration Protocol Fentanyl Citrate 2,000 mcg in 100 mls @ 4.55 mls/hr 02/29/20 16:00 03/01/20 13:49 Fentanyl Drip Premix IV 4 mcg/kg/hr TITR INDU 18.2 mls/hr Administration Protocol 1 MCG/KG/HR Midazolam HCl 100 mg/ Sodium 100 mls @ 2 mls/hr 02/29/20 16:00 03/01/20 08:04 Chloride IV 5 mg/hr TITR INDU 5 mls/hr Administration Protocol 2 MG/HR Propofol 1,000 mg in 100 mls @ 2.73 mls/hr 02/29/20 18:00 Diprivan 10 Mg/Ml IV TITR INDU Protocol 5 MCG/KG/MIN Labetalol HCl 10 mg 02/28/20 09:00 Labetalol IV Q4H PRN Hypertension Lorazepam 1 mg 02/28/20 04:20 02/28/20 11:05 Ativan IV 1 mg Q4H PRN Administration Agitation Lorazepam 2 mg 02/28/20 11:30 02/29/20 11:43 Ativan IV 2 mg Q1H PRN Administration CIWA-Ar 8-15 Lorazepam 4 mg 02/28/20 11:30 02/29/20 16:19 Ativan IV 4 mg Q1H PRN Administration CIWA-Ar 16-25 Metoprolol Tartrate 25 mg 02/28/20 10:00 03/01/20 09:53 Metoprolol PO 25 mg BID INDU Administration Midazolam HCl 2 mg 02/29/20 15:35 02/29/20 17:00 Versed IV 2 mg Q10MIN PRN Administration Sedation Multi-Ingred Cream/Lotion/Oil/Oint 1 applic 02/29/20 15:35 Artificial Tears Ophth Oint OU Q4HR PRN Dry Eye(s) Ondansetron HCl 4 mg 02/24/20 06:45 02/25/20 23:33 Zofran IV 4 mg Q8H PRN Administration Nausea And Vomiting Pantoprazole Sodium 40 mg 02/24/20 13:00 03/01/20 09:53 Protonix IV 40 mg QDAY INDU Administration Simple Syrup 15 ml 03/01/20 08:46 Simple Syrup FEEDTUBE PRN PRN Hypoglycemia Simple Syrup 30 ml 03/01/20 08:46 Simple Syrup FEEDTUBE PRN PRN Hypoglycemia Sodium Bicarbonate 650 mg 02/28/20 14:00 03/01/20 13:50 Sodium Bicarbonate PO 650 mg TID INDU Administration Sodium Bicarbonate 325 mg 03/01/20 08:46 Sodium Bicarbonate FEEDTUBE PRN PRN For Clogged Feeding Tube Sodium Chloride 10 ml 02/24/20 10:00 03/01/20 09:54 Sodium Chloride Flush Syringe 10 Ml IV 10 ml BID INDU Administration Sodium Chloride 10 ml 02/24/20 06:45 Sodium Chloride Flush Syringe 10 Ml IV PRN PRN LINE FLUSH
[2020-03-01 16:49] LABS: Hematocrit 20.8 % (30.3-42.9); Hemoglobin 6.2 gm/dl (10.1-14.3); Mean Corpuscular HGB Conc 30 % (30-34); Mean Corpuscular Volume 71 fl (79-97); Platelet Count 560 K/mm3 (140-440); Red Blood Count 2.92 M/mm3 (3.65-5.03); Red Cell Distribution Width 18.2 % (13.2-15.2)
--- NOTE | 2020-03-01 17:26 | Progress Note ---
Assessment and Plan (1) Acute pancreatitis - improved by lipase level coming down. Could be developing complications related to local and systemic effects. Worsening renal failure, and WBC elevated. Etiology of pancreatitis unclear, but may be EtOH given course with possible DTs, though now seems to be developing multi-organ failure. - given calcification in HOP, MRCP at some point in future is reasonable, but no need urgently - based on course, repeat CT to monitor evolution of pancreatitis, usu q [address] was on 02/24. May repeat soon this week, based on course. - would place Dobhoff and initiate tube feeding and check lipase (2) Altered mental status - now intubated and sedated. 3. Anemia - on PPI. - will defer transfusion, etc to Hospitalist Spoke with pt's daughter, Ewa. Current Visit: Yes Status: Acute Plan to address problem: - Consider nutritional support with Dobhoff, and monitor pancreatitis. Subjective Date of service: 03/01/20 Principal diagnosis: HTNsive urgency; Morbid obesity; Ac. pancreatitis; Abdominal pain Interval history: Pt stable overnight. She is currently sedated, on ventilator. Objective - Constitutional Vitals: Vital Signs - 12hr 03/01/20 03/01/20 03/01/20 05:30 05:45 05:53 Temperature Pulse Rate 91 H 92 H Pulse Rate [ Anterior Bilateral Throughout] Pulse Rate [ From Monitor] Respiratory 25 H 25 H Rate Respiratory Rate [Abdomen] Respiratory Rate [Anterior Bilateral Throughout] Blood Pressure 133/66 130/72 O2 Sat by Pulse 100 100 98 Oximetry 03/01/20 03/01/20 03/01/20 06:00 06:15 06:30 Temperature Pulse Rate 91 H 92 H 92 H Pulse Rate [ Anterior Bilateral Throughout] Pulse Rate [ From Monitor] Respiratory 25 H 25 H 25 H Rate Respiratory Rate [Abdomen] Respiratory Rate [Anterior Bilateral Throughout] Blood Pressure 130/73 133/73 134/70 O2 Sat by Pulse 100 98 97 Oximetry 03/01/20 03/01/20 03/01/20 06:45 07:00 07:15 Temperature Pulse Rate 93 H 94 H 93 H Pulse Rate [ Anterior Bilateral Throughout] Pulse Rate [ From Monitor] Respiratory 25 H 25 H 25 H Rate Respiratory Rate [Abdomen] Respiratory Rate [Anterior Bilateral Throughout] Blood Pressure 133/72 139/71 131/71 O2 Sat by Pulse 97 98 98 Oximetry 03/01/20 03/01/20 03/01/20 07:30 07:31 07:45 Temperature Pulse Rate 94 H 93 H 94 H Pulse Rate [ 94 H Anterior Bilateral Throughout] Pulse Rate [ From Monitor] Respiratory 25 H 25 H Rate Respiratory Rate [Abdomen] Respiratory 25 H Rate [Anterior Bilateral Throughout] Blood Pressure 138/70 138/70 136/70 O2 Sat by Pulse 98 98 98 Oximetry 03/01/20 03/01/20 03/01/20 08:00 08:15 08:30 Temperature 100.6 F H Pulse Rate 101 H 101 H 102 H Pulse Rate [ Anterior Bilateral Throughout] Pulse Rate [ 102 H From Monitor] Respiratory 25 H 25 H 25 H Rate Respiratory Rate [Abdomen] Respiratory Rate [Anterior Bilateral Throughout] Blood Pressure 153/72 145/70 137/70 O2 Sat by Pulse 96 96 96 Oximetry 03/01/20 03/01/20 03/01/20 08:45 09:00 09:15 Temperature Pulse Rate 102 H 103 H 102 H Pulse Rate [ Anterior Bilateral Throughout] Pulse Rate [ From Monitor] Respiratory 25 H 25 H 25 H Rate Respiratory Rate [Abdomen] Respiratory Rate [Anterior Bilateral Throughout] Blood Pressure 139/69 144/76 136/72 O2 Sat by Pulse 96 97 97 Oximetry 03/01/20 03/01/20 03/01/20 09:30 09:45 09:53 Temperature Pulse Rate 101 H 100 H 99 H Pulse Rate [ Anterior Bilateral Throughout] Pulse Rate [ From Monitor] Respiratory 25 H 25 H Rate Respiratory Rate [Abdomen] Respiratory Rate [Anterior Bilateral Throughout] Blood Pressure 145/71 140/72 140/72 O2 Sat by Pulse 97 97 Oximetry 03/01/20 03/01/20 03/01/20 10:00 10:15 10:30 Temperature Pulse Rate 102 H 103 H 98 H Pulse Rate [ Anterior Bilateral Throughout] Pulse Rate [ From Monitor] Respiratory 25 H 25 H 25 H Rate Respiratory 25 H Rate [Abdomen] Respiratory Rate [Anterior Bilateral Throughout] Blood Pressure 147/75 140/74 136/77 O2 Sat by Pulse 97 95 96 Oximetry 03/01/20 03/01/20 03/01/20 10:45 11:00 11:09 Temperature Pulse Rate 95 H 93 H 97 H Pulse Rate [ Anterior Bilateral Throughout] Pulse Rate [ From Monitor] Respiratory 25 H 25 H Rate Respiratory Rate [Abdomen] Respiratory Rate [Anterior Bilateral Throughout] Blood Pressure 129/75 129/74 136/77 O2 Sat by Pulse 97 97 97 Oximetry 03/01/20 03/01/20 03/01/20 11:15 11:30 11:45 Temperature Pulse Rate 93 H 94 H 93 H Pulse Rate [ Anterior Bilateral Throughout] Pulse Rate [ From Monitor] Respiratory 25 H 25 H 25 H Rate Respiratory Rate [Abdomen] Respiratory Rate [Anterior Bilateral Throughout] Blood Pressure 134/81 142/80 139/80 O2 Sat by Pulse 97 97 96 Oximetry 03/01/20 03/01/20 03/01/20 12:00 13:50 15:40 Temperature 99.8 F H Pulse Rate 92 H 92 H 100 H Pulse Rate [ Anterior Bilateral Throughout] Pulse Rate [ 91 H From Monitor] Respiratory 25 H Rate Respiratory Rate [Abdomen] Respiratory Rate [Anterior Bilateral Throughout] Blood Pressure 133/75 135/78 137/76 O2 Sat by Pulse 97 96 Oximetry 03/01/20 16:25 Temperature Pulse Rate Pulse Rate [ 99 H Anterior Bilateral Throughout] Pulse Rate [ From Monitor] Respiratory Rate Respiratory Rate [Abdomen] Respiratory 25 H Rate [Anterior Bilateral Throughout] Blood Pressure O2 Sat by Pulse Oximetry General appearance: Present: other (Intubated, sedated) - EENT Eyes: PERRL - Gastrointestinal General gastrointestinal: Present: soft, tender (Moderate epigastric), hypoactive bowel sounds - Labs CBC & Chem 7: 03/01/20 16:22 03/01/20 11:06 Labs: Abnormal lab results 02/26/20 02/29/20 02/29/20 Range/Units 04:39 18:20 18:24 WBC (4.5-11.0) K/mm3 RBC (3.65-5.03) M/mm3 Hgb (10.1-14.3) gm/dl Hct (30.3-42.9) % MCV (79-97) fl MCH (28-32) pg RDW (13.2-15.2) % Plt Count (140-440) K/mm3 ABG pH 7.271 L (7.320-7.450) ABG pO2 (80.0-90.0) mm Hg ABG HCO3 (20.0-26.0) mmol/L ABG Base Excess (-2.0-3.0) mmol/L ABG Hemoglobin 7.2 L (12.0-17.5) ABG Oxyhemoglobin 93.4 L (94-98) Potassium (3.6-5.0) mmol/L Chloride (98-107) mmol/L Carbon Dioxide (22-30) mmol/L BUN (7-17) mg/dL Creatinine (0.6-1.2) mg/dL Glucose (65-100) mg/dL POC Glucose 66 L (70-105) Phosphorus (2.5-4.5) mg/dL Magnesium (1.7-2.3) mg/dL C-Reactive Protein (0.00-1.30) mg/dL Albumin 2.8 L (3.8-4.8) g/dL [id number] 0.7 H (0.2-0.3) g/dL PEP Interpretation see below H Lipase (13-60) units/L 03/01/20 03/01/20 03/01/20 Range/Units 04:05 04:37 11:06 WBC (4.5-11.0) K/mm3 RBC (3.65-5.03) M/mm3 Hgb (10.1-14.3) gm/dl Hct (30.3-42.9) % MCV (79-97) fl MCH (28-32) pg RDW (13.2-15.2) % Plt Count (140-440) K/mm3 ABG pH 7.347 L (7.320-7.450) ABG pO2 133.5 H (80.0-90.0) mm Hg ABG HCO3 15.8 L (20.0-26.0) mmol/L ABG Base Excess -8.9 L (-2.0-3.0) mmol/L ABG Hemoglobin 7.6 L (12.0-17.5) ABG Oxyhemoglobin (94-98) Potassium 5.3 H D (3.6-5.0) mmol/L Chloride 107.6 H (98-107) mmol/L Carbon Dioxide 14 L 11 L (22-30) mmol/L BUN 83 H 77 H (7-17) mg/dL Creatinine 5.6 H 5.0 H (0.6-1.2) mg/dL Glucose 54 L (65-100) mg/dL POC Glucose (70-105) Phosphorus 6.10 H (2.5-4.5) mg/dL Magnesium 2.40 H (1.7-2.3) mg/dL C-Reactive Protein 36.50 H (0.00-1.30) mg/dL Albumin 3.0 L (3.8-4.8) g/dL [id number]-[id number] (0.2-0.3) g/dL PEP Interpretation Lipase (13-60) units/L 03/01/20 03/01/20 Range/Units 16:22 Unknown WBC 30.5 H (4.5-11.0) K/mm3 RBC 2.92 L (3.65-5.03) M/mm3 Hgb 6.2 L (10.1-14.3) gm/dl Hct 20.8 L (30.3-42.9) % MCV 71 L (79-97) fl MCH 21 L (28-32) pg RDW 18.2 H (13.2-15.2) % Plt Count 560 H (140-440) K/mm3 ABG pH (7.320-7.450) ABG pO2 (80.0-90.0) mm Hg ABG HCO3 (20.0-26.0) mmol/L ABG Base Excess (-2.0-3.0) mmol/L ABG Hemoglobin (12.0-17.5) ABG Oxyhemoglobin (94-98) Potassium (3.6-5.0) mmol/L Chloride (98-107) mmol/L Carbon Dioxide (22-30) mmol/L BUN (7-17) mg/dL Creatinine (0.6-1.2) mg/dL Glucose (65-100) mg/dL POC Glucose (70-105) Phosphorus (2.5-4.5) mg/dL Magnesium (1.7-2.3) mg/dL C-Reactive Protein (0.00-1.30) mg/dL Albumin (3.8-4.8) g/dL Qdyxr-0-Ddemeigis (0.2-0.3) g/dL PEP Interpretation Lipase 297 H (13-60) units/L Medications & Allergies - Medications Allergies/Adverse Reactions: Allergies No Known Allergies Allergy (Unverified 09/05/19 10:15) Home Medications: Home Medications Medication Instructions Recorded Confirmed Last Taken Type Amlodipine Besylate [Norvasc] 10 mg PO DAILY 09/05/19 02/24/20 09/04/19 History Furosemide [Lasix] 20 mg PO QDAY #30 tablet 09/05/19 02/24/20 Unknown Rx Lisinopril [Zestril] 5 mg PO DAILY #30 tablet 09/05/19 02/24/20 Unknown Rx Metoprolol [Lopressor TAB] 25 mg PO BID #60 tablet 09/05/19 02/24/20 Unknown Rx Active Medications: Generic Name Dose Route Start Last Admin Trade Name Freq PRN Reason Stop Dose Admin Acetaminophen 650 mg 02/26/20 16:23 02/26/20 16:37 Tylenol PO 650 mg Q4H PRN Administration Pain, Mild (1-3)/ Temp >100. Albuterol 2.5 mg 02/27/20 17:55 Proventil IH Q4HRT PRN Shortness Of Breath Albuterol/Ipratropium 1 ampul 02/28/20 12:17 03/01/20 16:25 Duoneb *Not For Prn Use* IH 1 ampul Q6HRT INDU Administration Amlodipine Besylate 10 mg 02/28/20 10:00 03/01/20 09:53 Amlodipine PO 10 mg QDAY INDU Administration Lipase/Protease/Amylase 1 each 03/01/20 08:[address] 10,500 Unit FEEDTUBE PRN PRN For Clogged Feeding Tube Dextrose 50 ml 02/29/20 08:00 03/01/20 00:20 D50w (25gm) Syringe IV 10 ml Q30MIN PRN Administration HYPOGLYCEMIA Protocol Fentanyl 50 mcg 02/29/20 15:35 02/29/20 16:10 Sublimaze IV 50 mcg Q10MIN PRN Administration ANALGESIA Haloperidol Lactate 5 mg 02/28/20 11:30 02/28/20 11:51 Haldol IV 5 mg Q1H PRN Administration Unrespon. to mult. doses BZD's Heparin Sodium (Porcine) 5,000 unit 02/24/20 14:00 03/01/20 13:50 Heparin SUB-Q 5,000 unit Q8HR INDU Administration Hydralazine HCl 50 mg 02/28/20 14:00 03/01/20 13:50 Apresoline PO 50 mg Q8HR INDU Administration Hydrophilic Ointment 1 applic 02/29/20 15:35 Vaseline Lip Therapy TP Q2HR PRN Dry Lips Nicardipine HCl 50 mg/ Sodium 250 mls @ 25 mls/hr 02/24/20 07:00 02/28/20 12 :51 Chloride IV 0 mg/hr TITR INDU 0 mls/hr Titration Protocol 5 MG/HR Piperacillin Sod/Tazobactam Sod 2.25 gm in 50 mls @ 100 mls/hr 02/26/20 18:30 03/01/20 10:00 Zosyn/Ns 2.25 Gm/50ml IV 100 mls/hr Q8H INDU Administration Protocol Fentanyl Citrate 2,000 mcg in 100 mls @ 4.55 mls/hr 02/29/20 16:00 03/01/20 13:49 Fentanyl Drip Premix IV 4 mcg/kg/hr TITR INDU 18.2 mls/hr Administration Protocol 1 MCG/KG/HR Midazolam HCl 100 mg/ Sodium 100 mls @ 2 mls/hr 02/29/20 16:00 03/01/20 08:04 Chloride IV 5 mg/hr TITR INDU 5 mls/hr Administration Protocol 2 MG/HR Propofol 1,000 mg in 100 mls @ 2.73 mls/hr 02/29/20 18:00 Diprivan 10 Mg/Ml IV TITR INDU Protocol 5 MCG/KG/MIN Labetalol HCl 10 mg 02/28/20 09:00 Labetalol IV Q4H PRN Hypertension Lorazepam 1 mg 02/28/20 04:20 02/28/20 11:05 Ativan IV 1 mg Q4H PRN Administration Agitation Lorazepam 2 mg 02/28/20 11:30 02/29/20 11:43 Ativan IV 2 mg Q1H PRN Administration CIWA-Ar 8-15 Lorazepam 4 mg 02/28/20 11:30 02/29/20 16:19 Ativan IV 4 mg Q1H PRN Administration CIWA-Ar 16-25 Metoprolol Tartrate 25 mg 02/28/20 10:00 03/01/20 09:53 Metoprolol PO 25 mg BID INDU Administration Midazolam HCl 2 mg 02/29/20 15:35 02/29/20 17:00 Versed IV 2 mg Q10MIN PRN Administration Sedation Multi-Ingred Cream/Lotion/Oil/Oint 1 applic 02/29/20 15:35 Artificial Tears Ophth Oint OU Q4HR PRN Dry Eye(s) Ondansetron HCl 4 mg 02/24/20 06:45 02/25/20 23:33 Zofran IV 4 mg Q8H PRN Administration Nausea And Vomiting Pantoprazole Sodium 40 mg 02/24/20 13:00 03/01/20 09:53 Protonix IV 40 mg QDAY INDU Administration Simple Syrup 15 ml 03/01/20 08:46 Simple Syrup FEEDTUBE PRN PRN Hypoglycemia Simple Syrup 30 ml 03/01/20 08:46 Simple Syrup FEEDTUBE PRN PRN Hypoglycemia Sodium Bicarbonate 325 mg 03/01/20 08:46 Sodium Bicarbonate FEEDTUBE PRN PRN For Clogged Feeding Tube Sodium Bicarbonate 1,300 mg 03/01/20 16:43 Sodium Bicarbonate PO TID INDU Sodium Chloride 10 ml 02/24/20 10:00 03/01/20 09:54 Sodium Chloride Flush Syringe 10 Ml IV 10 ml BID INDU Administration Sodium Chloride 10 ml 02/24/20 06:45 Sodium Chloride Flush Syringe 10 Ml IV PRN PRN LINE FLUSH Tamsulosin HCl 0.4 mg 03/01/20 17:00 Flomax PO QDAY INDU
[2020-03-01 17:36] LABS: Band Neutrophils # (Manual) 2.7 K/mm3; Basophils % (Manual) 0 % (0.0-1.8); Eosinophils % (Manual) 0 % (0.0-4.3); Hypochromasia 2+; Total Cells Counted 100
[2020-03-01 17:37] LABS: Ovalocytes Rare
[2020-03-01 17:41] LABS: Platelet Estimate Consistent w Auto
[2020-03-01] MEDS ORDERED: SODIUM CHLORIDE 0.9% 500 ML 500 ML IV ONE (17:55)
[2020-03-01] MEDS: TAMSULOSIN 0.4 MG CAP PO SCH (17:57)
--- NOTE | 2020-03-01 18:27 | Event Note ---
Date: 02/29/20 Patient was in acute respiratory failure Patient was intubated placed on mechanical ventilation Continue supportive care, family aware Closely monitor and adjust management as needed
--- NOTE | 2020-03-01 18:29 | Event Note ---
Date: 03/01/20 Patient's hemoglobin significantly dropped to 6.2 today No external evidence of bleeding, check stool for occult blood Type and cross, transfuse 2 units of PRBC stat Discussed with patient's nurse Ms. Mancilla Closely monitor H&H and transfuse additional PRBC as needed
--- NOTE | 2020-03-01 22:30 | Cat Scan Report ---
CT ABDOMEN AND PELVIS WITHOUT CONTRAST INDICATION / CLINICAL INFORMATION: f/u ac pancreatitis. TECHNIQUE: Axial CT images were obtained through the abdomen and pelvis without IV contrast. All CT scans at is location are performed using CT dose reduction for ALARA by means of automated exposure control. COMPARISON: Prior CT abdomen and pelvis dated 02/25/2020. FINDINGS: LOWER CHEST: Interval development of moderate-sized bilateral pleural effusions with associated bibas ilar atelectasis. LIVER: No significant abnormality. GALLBLADDER: Cholecystectomy BILE DUCTS: No significant abnormality. PANCREAS: Interval worsening of previously noted pancreatic parenchymal inflammatory changes with sig nificant worsening of peripancreatic disorganized free fluid. There is interval development of 3.3 x 2.5 cm area of hypoattenuation at the pancreatic body. The previously noted calculus near the pancrea tic ampulla is again seen SPLEEN: No significant abnormality. ADRENALS: No significant abnormality. RIGHT KIDNEY / URETER: Persistent perinephric fat stranding is noted on the right. No evidence of hyd ronephrosis or calcite renal stone. LEFT KIDNEY / URETER: Interval development of left-sided perinephric fat stranding. No evidence of ca lcified renal stone or hydronephrosis STOMACH / SMALL BOWEL: NG tube noted with its tip in the distal stomach. Local inflammatory changes a re again noted of the stomach and small bowel loops. COLON: No significant abnormality. APPENDIX: No significant abnormality. PERITONEUM: Worsening simple free intraperitoneal fluid is noted collecting in the pelvis. No free ai r. No complex fluid collection. LYMPH NODES: No significant adenopathy. AORTA / ARTERIES: No significant abnormality. IVC / VEINS: No significant abnormality. URINARY BLADDER: No significant abnormality. REPRODUCTIVE ORGANS: No significant abnormality. ADDITIONAL FINDINGS: Interval development of body wall anasarca. SKELETAL SYSTEM: No significant abnormality. IMPRESSION: 1. Interval worsening of acute pancreatitis with increased peripancreatic fat stranding and disorgani zed fluid. Additionally, there is increased intraperitoneal edema and simple free fluid collection in the pelvis. 2. Local inflammatory changes are now involving the stomach, small bowel, and bilateral kidneys. 3. Interval development of bilateral pleural effusions and associated compressive atelectasis. 4. Interval development of diffuse body wall anasarca. 5. Interval placement of NG tube with its tip in the distal stomach. 6. Please see above for full details. Signer Name: King De Leon MD Signed: 03/01/2020 10:25 PM Workstation Name: [id number]
[2020-03-02 00:47] LABS: ANA Screen, IFA Positive (Negative)
[2020-03-02] MEDS: fentaNYL DRIP Premix 2,000 MCG/100 ML BAG IV SCH ×3 (01:50→22:53)
[2020-03-02] MEDS: PIPERACIL-TAZO 2.25 GM/50 ML 2.25 GM/50 ML BAG IV SCH ×3 (01:58→19:32)
--- NOTE | 2020-03-02 02:46 | XRay Report ---
CHEST 1 VIEW 03/02/2020 2:23 AM INDICATION / CLINICAL INFORMATION: follow up respiratory failure. COMPARISON: 03/01/2020 FINDINGS: SUPPORT DEVICES: Stable, satisfactory device positioning. HEART / MEDIASTINUM: Stable. LUNGS / PLEURA: Stable bilateral perihilar opacities likely reflecting edema. No pneumothorax. ADDITIONAL FINDINGS: No significant additional findings. IMPRESSION: 1. No significant change. Signer Name: Chance Leon MD Signed: 03/02/2020 2:42 AM Workstation Name: [id number]
[2020-03-02] MEDS: IPRATROPIUM/ALBUTEROL SULFATE 3 ML AMPUL.NEB IH SCH ×4 (03:50→20:40)
[2020-03-02] MEDS: MIDAZOLAM 100 MG in SODIUM CHLORIDE 0.9% 80 ML IV SCH (03:58)
[2020-03-02] MEDS: hydrALAZINE 25 MG TAB PO SCH ×3 (05:56→21:22)
[2020-03-02 05:59] LABS: Hematocrit 24.2 % (30.3-42.9); Hemoglobin 7.8 gm/dl (10.1-14.3); Mean Corpuscular HGB Conc 32 % (30-34); Mean Corpuscular Volume 74 fl (79-97); Platelet Count 508 K/mm3 (140-440); Red Blood Count 3.26 M/mm3 (3.65-5.03)
[2020-03-02 06:13] LABS: Albumin 2.3 g/dL (3.9-5)
[2020-03-02 06:15] LABS: Red Cell Distribution Width 21.3 % (13.2-15.2)
[2020-03-02] MEDS: HEPARIN 5,000 UNIT/1 ML VIAL SUB-Q SCH ×2 (06:29→21:24)
[2020-03-02 09:18] LABS: Anisocytosis 1+; Band Neutrophils # (Manual) 1.6 K/mm3; Basophils % (Manual) 0 % (0.0-1.8); Eosinophils % (Manual) 0 % (0.0-4.3); Total Cells Counted 100
[2020-03-02 09:19] LABS: Hypochromasia 2+; Platelet Estimate Consistent w Auto
--- NOTE | 2020-03-02 09:28 | Progress Note ---
Assessment and Plan # Acute Kidney Injury/Chronic Kidney Disease: suspect JUANIS in setting of hypertensive urgency and pre-renal injury from pancreatitis. Additional JUANIS risk factors include use of NSAID (Toradol) and PPI. 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 Creatinine has worsened from 1.7->3.0->3.1->3.4->4.2->4.7->5.6->5.0 since admission, now intubated - has responded fairly well to Lasix 80mg IV x1 02/27, 120mg x1 02/28, and also 120 mg of Lasix on 03/01/2020 -Dr. Robison did speak to patient's daughter regarding renal replacement therapy and she had consented to it - avoid NSAIDs as able - consider alternative to PPI if able - IVF as tolerated - strict Is/Os - ordered serologies-> ANCA negative; minimal proteinuria per UP/C, PTH high for CKD; reviewed urinalysis which does show hematuria and proteinuria - BP control as below # Hypertensive Emergency: BPs improved, off Cardene gtt, agree to titrate back to home amlodipine, metoprolol. On HANNA-I at home, hold for now. # Acidosis: Improving. Add low-volume bicarbonate drip. # Pancreatitis: appreciate GI, pain management per primary. MRCP pending # Thrombocytosis # Leukocytosis Patient is currently nonoliguric. Her hyperkalemia has been corrected. She is currently responding well to diuretics. Acidosis is also improving. No urgent indication for renal replacement therapy today. Shall continue to monitor her closely. Shall give her additional dose of Lasix today. Plan of care discussed with patient's nurse Subjective Date of service: 03/02/20 Principal diagnosis: HTNsive urgency; Morbid obesity; Ac. pancreatitis; Abdominal pain Interval history: Patient is currently on the ventilator. On 30% FiO2. Sedated. Currently has a pure wick in place. Discussed with patient's nurse. Patient was straight cathed earlier. Approximately 1800 cc of urine was obtained. Patient just received packed RBC transfusion. Oxygen saturation is 98% Objective - Vital Signs Vital signs: Vital Signs - 12hr 03/01/20 03/01/20 03/01/20 21:41 21:45 22:00 Temperature Pulse Rate 118 H 110 H 106 H Pulse Rate [ Anterior Bilateral Throughout] Respiratory 25 H 25 H 26 H Rate Respiratory Rate [Anterior Bilateral Throughout] Blood Pressure 132/78 132/78 134/77 O2 Sat by Pulse 94 100 96 Oximetry 03/01/20 03/01/20 03/01/20 22:15 22:30 22:45 Temperature Pulse Rate 100 H 96 H 94 H Pulse Rate [ Anterior Bilateral Throughout] Respiratory 25 H 25 H 25 H Rate Respiratory Rate [Anterior Bilateral Throughout] Blood Pressure 122/71 114/62 119/66 O2 Sat by Pulse 96 96 96 Oximetry 03/01/20 03/01/20 03/01/20 23:00 23:11 23:15 Temperature 98.6 F Pulse Rate 92 H 90 90 Pulse Rate [ Anterior Bilateral Throughout] Respiratory 25 H 25 H 25 H Rate Respiratory Rate [Anterior Bilateral Throughout] Blood Pressure 116/66 116/66 122/69 O2 Sat by Pulse 96 98 97 Oximetry 03/01/20 03/01/20 03/01/20 23:18 23:26 23:27 Temperature 98.9 F Pulse Rate 91 H 89 89 Pulse Rate [ Anterior Bilateral Throughout] Respiratory 25 H 25 H 25 H Rate Respiratory Rate [Anterior Bilateral Throughout] Blood Pressure 122/69 119/73 119/73 O2 Sat by Pulse 97 98 98 Oximetry 03/01/20 03/01/20 03/01/20 23:30 23:34 23:41 Temperature 98.6 F Pulse Rate 89 91 H Pulse Rate [ Anterior Bilateral Throughout] Respiratory 25 H 25 H Rate Respiratory Rate [Anterior Bilateral Throughout] Blood Pressure 123/73 122/69 O2 Sat by Pulse 98 97 Oximetry 03/01/20 03/02/20 03/02/20 23:51 00:00 00:06 Temperature Pulse Rate 89 88 85 Pulse Rate [ Anterior Bilateral Throughout] Respiratory 25 H 25 H Rate Respiratory Rate [Anterior Bilateral Throughout] Blood Pressure 122/75 122/70 122/70 O2 Sat by Pulse 97 98 100 Oximetry 03/02/20 03/02/20 03/02/20 00:11 00:21 00:30 Temperature Pulse Rate 88 88 87 Pulse Rate [ Anterior Bilateral Throughout] Respiratory 21 25 H 25 H Rate Respiratory Rate [Anterior Bilateral Throughout] Blood Pressure 122/70 123/75 119/74 O2 Sat by Pulse 100 99 98 Oximetry 03/02/20 03/02/20 03/02/20 00:41 00:51 01:00 Temperature Pulse Rate 87 87 88 Pulse Rate [ Anterior Bilateral Throughout] Respiratory 25 H 25 H 25 H Rate Respiratory Rate [Anterior Bilateral Throughout] Blood Pressure 119/74 120/76 125/76 O2 Sat by Pulse 99 99 99 Oximetry 03/02/20 03/02/20 03/02/20 01:11 01:21 01:24 Temperature 99.2 F Pulse Rate 86 88 87 Pulse Rate [ Anterior Bilateral Throughout] Respiratory 25 H 25 H 25 H Rate Respiratory Rate [Anterior Bilateral Throughout] Blood Pressure 125/76 129/77 131/83 O2 Sat by Pulse 99 99 99 Oximetry 03/02/20 03/02/20 03/02/20 01:30 01:41 01:43 Temperature 99.2 F Pulse Rate 88 88 88 Pulse Rate [ Anterior Bilateral Throughout] Respiratory 25 H 25 H 25 H Rate Respiratory Rate [Anterior Bilateral Throughout] Blood Pressure 129/77 127/82 127/82 O2 Sat by Pulse 98 98 99 Oximetry 03/02/20 03/02/20 03/02/20 01:51 02:00 02:15 Temperature 99.2 F Pulse Rate 89 91 H 88 Pulse Rate [ Anterior Bilateral Throughout] Respiratory 25 H 25 H 25 H Rate Respiratory Rate [Anterior Bilateral Throughout] Blood Pressure 132/79 135/81 128/78 O2 Sat by Pulse 99 98 99 Oximetry 03/02/20 03/02/20 03/02/20 02:30 02:45 02:49 Temperature 98.8 F Pulse Rate 89 88 Pulse Rate [ Anterior Bilateral Throughout] Respiratory 25 H 25 H Rate Respiratory Rate [Anterior Bilateral Throughout] Blood Pressure 128/80 126/79 O2 Sat by Pulse 97 98 Oximetry 03/02/20 03/02/20 03/02/20 03:00 03:15 03:30 Temperature Pulse Rate 87 88 87 Pulse Rate [ Anterior Bilateral Throughout] Respiratory 25 H 25 H 25 H Rate Respiratory Rate [Anterior Bilateral Throughout] Blood Pressure 131/76 124/79 127/77 O2 Sat by Pulse 99 99 99 Oximetry 03/02/20 03/02/20 03/02/20 03:45 03:50 04:00 Temperature Pulse Rate 85 89 Pulse Rate [ 88 Anterior Bilateral Throughout] Respiratory 25 H 25 H Rate Respiratory 25 H Rate [Anterior Bilateral Throughout] Blood Pressure 126/75 126/84 O2 Sat by Pulse 99 99 Oximetry 03/02/20 03/02/20 03/02/20 04:10 04:15 04:30 Temperature 99.2 F Pulse Rate 88 88 89 Pulse Rate [ Anterior Bilateral Throughout] Respiratory 25 H 25 H 25 H Rate Respiratory Rate [Anterior Bilateral Throughout] Blood Pressure 123/84 127/79 127/80 O2 Sat by Pulse 98 99 99 Oximetry 03/02/20 03/02/20 03/02/20 04:45 05:00 05:15 Temperature Pulse Rate 90 88 88 Pulse Rate [ Anterior Bilateral Throughout] Respiratory 25 H 25 H 25 H Rate Respiratory Rate [Anterior Bilateral Throughout] Blood Pressure 123/75 127/74 125/74 O2 Sat by Pulse 99 99 99 Oximetry 03/02/20 03/02/20 03/02/20 05:30 05:45 06:00 Temperature Pulse Rate 88 88 87 Pulse Rate [ Anterior Bilateral Throughout] Respiratory 25 H 25 H 25 H Rate Respiratory Rate [Anterior Bilateral Throughout] Blood Pressure 125/77 124/73 126/76 O2 Sat by Pulse 99 99 99 Oximetry 03/02/20 03/02/20 03/02/20 06:15 06:30 07:55 Temperature Pulse Rate 87 86 87 Pulse Rate [ 86 Anterior Bilateral Throughout] Respiratory 25 H 25 H Rate Respiratory 25 H Rate [Anterior Bilateral Throughout] Blood Pressure 130/74 128/74 128/75 O2 Sat by Pulse 99 99 87 Oximetry - General Appearance General appearance: well-developed, well-nourished, appears stated age, intubated EENT: PERRL, mucous membranes moist Neck: no JVD, no thyromegaly, no carotid bruit, supple Respiratory: Present: Decreased Breath Sounds (At the bases) Cardiology: regular, normal heart rate Gastrointestinal: normoactive bowel sounds, other (Slightly distended. Tympanitic to percussion. Bowel sounds present.) Integumentary: other (1+ edema) - Lab 03/02/20 05:36 03/02/20 05:36 Most recent lab results ABG pH 7.4 (7.320-7.450) 03/02/20 04:00 ABG pCO2 29.4 mm Hg 03/01/20 04:05 ABG pO2 133.5 mm Hg (80.0-90.0) H 03/01/20 04:05 ABG HCO3 15.8 mmol/L (20.0-26.0) L 03/01/20 04:05 ABG O2 Saturation 98.6 % (95.0-99.0) 03/01/20 04:05 Calcium 9.0 mg/dL (8.4-10.2) 03/02/20 05:36 Phosphorus 6.10 mg/dL (2.5-4.5) H 03/01/20 04:37 Magnesium 2.50 mg/dL (1.7-2.3) H 03/02/20 05:36 Urine Creatinine 161.0 mg/dL (0.1-20.0) H 02/25/20 22:55 Urine Total Protein 150 mg/dL (5-11.8) H 02/25/20 22:55 Medications & Allergies - Medications Allergies/Adverse Reactions: Allergies No Known Allergies Allergy (Unverified 09/05/19 10:15) Home Medications: Home Medications Medication Instructions Recorded Confirmed Last Taken Type Amlodipine Besylate [Norvasc] 10 mg PO DAILY 09/05/19 02/24/20 09/04/19 History Furosemide [Lasix] 20 mg PO QDAY #30 tablet 09/05/19 02/24/20 Unknown Rx Lisinopril [Zestril] 5 mg PO DAILY #30 tablet 09/05/19 02/24/20 Unknown Rx Metoprolol [Lopressor TAB] 25 mg PO BID #60 tablet 09/05/19 02/24/20 Unknown Rx Active Medications: Generic Name Dose Route Start Last Admin Trade Name Freq PRN Reason Stop Dose Admin Acetaminophen 650 mg 02/26/20 16:23 02/26/20 16:37 Tylenol PO 650 mg Q4H PRN Administration Pain, Mild (1-3)/ Temp >100. Albuterol 2.5 mg 02/27/20 17:55 Proventil IH Q4HRT PRN Shortness Of Breath Albuterol/Ipratropium 1 ampul 02/28/20 12:17 03/02/20 07:54 Duoneb *Not For Prn Use* IH 1 ampul Q6HRT INDU Administration Amlodipine Besylate 10 mg 02/28/20 10:00 03/01/20 09:53 Amlodipine PO 10 mg QDAY INDU Administration Lipase/Protease/Amylase 1 each 03/01/20 08:46 Pancrealivia Davis 10,500 Unit FEEDTUBE PRN PRN For Clogged Feeding Tube Dextrose 50 ml 02/29/20 08:00 03/01/20 00:20 D50w (25gm) Syringe IV 10 ml Q30MIN PRN Administration HYPOGLYCEMIA Protocol Fentanyl 50 mcg 02/29/20 15:35 02/29/20 16:10 Sublimaze IV 50 mcg Q10MIN PRN Administration ANALGESIA Haloperidol Lactate 5 mg 02/28/20 11:30 02/28/20 11:51 Haldol IV 5 mg Q1H PRN Administration Unrespon. to mult. doses BZD's Heparin Sodium (Porcine) 5,000 unit 02/24/20 14:00 03/02/20 06:29 Heparin SUB-Q 5,000 unit Q8HR INDU Administration Hydralazine HCl 50 mg 02/28/20 14:00 03/02/20 05:56 Apresoline PO Not Given Q8HR INDU Hydrophilic Ointment 1 applic 02/29/20 15:35 Vaseline Lip Therapy TP Q2HR PRN Dry Lips Nicardipine HCl 50 mg/ Sodium 250 mls @ 25 mls/hr 02/24/20 07:00 02/28/20 12:51 Chloride IV 0 mg/hr TITR INDU 0 mls/hr Titration Protocol 5 MG/HR Piperacillin Sod/Tazobactam Sod 2.25 gm in 50 mls @ 100 mls/hr 02/26/20 18:30 03/02/20 01:58 Zosyn/Ns 2.25 Gm/50ml IV 100 mls/hr Q8H INDU Administration Protocol Fentanyl Citrate 2,000 mcg in 100 mls @ 4.55 mls/hr 02/29/20 16:00 03/02/20 01:50 Fentanyl Drip Premix IV 3 mcg/kg/hr TITR INDU 13.65 mls/hr Administration Protocol 1 MCG/KG/HR Midazolam HCl 100 mg/ Sodium 100 mls @ 2 mls/hr 02/29/20 16:00 03/02/20 03:58 Chloride IV 3 mg/hr TITR INDU 3 mls/hr Administration Protocol 2 MG/HR Propofol 1,000 mg in 100 mls @ 2.73 mls/hr 02/29/20 18:00 Diprivan 10 Mg/Ml IV TITR INDU Protocol 5 MCG/KG/MIN Labetalol HCl 10 mg 02/28/20 09:00 Labetalol IV Q4H PRN Hypertension Lorazepam 1 mg 02/28/20 04:20 02/28/20 11:05 Ativan IV 1 mg Q4H PRN Administration Agitation Lorazepam 2 mg 02/28/20 11:30 02/29/20 11:43 Ativan IV 2 mg Q1H PRN Administration CIWA-Ar 8-15 Lorazepam 4 mg 02/28/20 11:30 02/29/20 16:19 Ativan IV 4 mg Q1H PRN Administration CIWA-Ar 16-25 Metoprolol Tartrate 25 mg 02/28/20 10:00 03/01/20 22:19 Metoprolol PO Not Given BID INDU Midazolam HCl 2 mg 02/29/20 15:35 02/29/20 17:00 Versed IV 2 mg Q10MIN PRN Administration Sedation Multi-Ingred Cream/Lotion/Oil/Oint 1 applic 02/29/20 15:35 Artificial Tears Ophth Oint OU Q4HR PRN Dry Eye(s) Ondansetron HCl 4 mg 02/24/20 06:45 02/25/20 23:33 Zofran IV 4 mg Q8H PRN Administration Nausea And Vomiting Pantoprazole Sodium 40 mg 02/24/20 13:00 03/01/20 09:53 Protonix IV 40 mg QDAY INDU Administration Simple Syrup 15 ml 03/01/20 08:46 Simple Syrup FEEDTUBE PRN PRN Hypoglycemia Simple Syrup 30 ml 03/01/20 08:46 Simple Syrup FEEDTUBE PRN PRN Hypoglycemia Sodium Bicarbonate 325 mg 03/01/20 08:46 Sodium Bicarbonate FEEDTUBE PRN PRN For Clogged Feeding Tube Sodium Bicarbonate 1,300 mg 03/01/20 16:43 03/01/20 22:19 Sodium Bicarbonate PO Not Given TID INDU Sodium Chloride 10 ml 02/24/20 10:00 03/01/20 22:23 Sodium Chloride Flush Syringe 10 Ml IV 10 ml BID INDU Administration Sodium Chloride 10 ml 02/24/20 06:45 Sodium Chloride Flush Syringe 10 Ml IV PRN PRN LINE FLUSH Tamsulosin HCl 0.4 mg 03/01/20 17:00 03/01/20 17:57 Flomax PO 0.4 mg QDAY INDU Administration
[2020-03-02] MEDS: PANTOPRAZOLE 40 MG INJ IV SCH (09:51)
[2020-03-02] MEDS: METOPROLOL TARTRATE 25 MG TAB PO SCH ×2 (09:52→21:23)
[2020-03-02] MEDS: TAMSULOSIN 0.4 MG CAP PO SCH (09:52)
[2020-03-02] MEDS: amLODIPine 10 MG TAB PO SCH (10:00)
[2020-03-02] MEDS ORDERED: DEXTROSE 5% IN WATER 1,000 ML with SODIUM BICARBONATE 150 MEQ IV SCH (10:00)
[2020-03-02] MEDS ORDERED: FUROSEMIDE 40 MG/4 ML INJ IV ONE ×2 (10:00→15:21)
--- NOTE | 2020-03-02 10:37 | Progress Note ---
Assessment and Plan Cultures: Urine culture grew 10-100,000 usual xavier. Blood culture 02/26/2020 no growth 02/29/2020 sputum culture: rare usual xavier Assessment: 39 years old female with history of hypertension, previous kidney stone, hyperlipidemia and obesity admitted on 02/24/2020 due to a week history of severe epigastric abdominal pain radiated to the right flank and back: #Acute sepsis: Likely secondary to severe pancreatitis #Acute severe pancreatitis: Unclear etiology. Initial non-contrasted CT showed no evidence of necrosis or pseudocyst or abscess formation. No evidence of infected necrotic pancreatitis. Repeat CT with interval worsening of inflammatory changes to the pancreatic parenchyma extending now to the pancreatic body with significant interval worsening of peripancreatic fat stranding and surrounding disorganized fluid. #JUANIS: Likely secondary to pancreatitis, worsening, renal on board. #Acute respiratory hypoxic failure: on the vent. #?Alcohol abuse Recommendations: -continue IV Zosyn, renally adjusted, plan to stop tomorrow -sepsis/SIRS is likely from severe acute pancreatitis, no infectious process has been identified -continue supportive care per primary, GI and ICU team Louie Graves MD, FACP [facility], [facility] C: [phone] O: [phone] F: [phone] Subjective Date of service: 03/02/20 Principal diagnosis: HTNsive urgency; Morbid obesity; Ac. pancreatitis; Abdominal pain Interval history: Low grade fever yesterday. Remains intubated on the vent. Objective - Exam Narrative Exam: Physical Exam: Constitutional: sedated, intubated, on the vent Head, Ears, Nose: Normocephalic, atraumatic. External ears, nose normal Eyes: Conjunctivae/corneas clear. No icterus. No ptosis. Neck: intubated Oral: intubated Cardiovascular: S1, S2 + Respiratory: AE fair but reduced in the bases GI: distended, bowel sounds hypo Musculoskeletal: No pedal edema, no cyanosis. Skin: No rash or abscess Hem/Lymphatic: No palpable cervical or supraclavicular nodes. No lymphangitis Psych: no agitation Neurological: sedated, intubated, on the vent, exam limited - Constitutional Vitals: Vital Signs Temp Pulse Resp BP Pulse Ox 99.0 F 90 25 H 132/78 98 03/02/20 08:00 03/02/20 10:15 03/02/20 10:15 03/02/20 10:15 03/02/20 10:15 Temperature -Last 24 Hours Temperature 99.0 F Temperature 99.2 F Temperature 98.8 F Temperature 99.2 F Temperature 99.2 F Temperature 99.2 F Temperature 98.6 F Temperature 98.9 F Temperature 98.6 F Temperature 98.8 F Temperature 99.8 F - Labs CBC & Chem 7: 03/02/20 05:36 03/02/20 05:36 Labs: Abnormal lab results 02/26/20 03/01/20 03/01/20 Range/Units 04:39 11:06 16:22 WBC 30.5 H (4.5-11.0) K/mm3 RBC 2.92 L (3.65-5.03) M/mm3 Hgb 6.2 L (10.1-14.3) gm/dl Hct 20.8 L (30.3-42.9) % MCV 71 L (79-97) fl MCH 21 L (28-32) pg RDW 18.2 H (13.2-15.2) % Plt Count 560 H (140-440) K/mm3 Seg Neuts % (Manual) 79.0 H (40.0-70.0) % Lymphocytes % (Manual) 3.0 L (13.4-35.0) % Nucleated RBC % (0.0-0.9) % Seg Neutrophils # Man 24.1 H (1.8-7.7) K/mm3 Lymphocytes # (Manual) 0.9 L (1.2-5.4) K/mm3 Monocytes # (Manual) 2.1 H (0.0-0.8) K/mm3 POC ABG pCO2 (32.0-48.0) mmHg ABG Hemoglobin (12.0-17.5) Potassium 5.3 H D (3.6-5.0) mmol/L Carbon Dioxide 11 L (22-30) mmol/L BUN 77 H (7-17) mg/dL Creatinine 5.0 H (0.6-1.2) mg/dL Glucose 54 L (65-100) mg/dL POC Glucose (70-105) Magnesium (1.7-2.3) mg/dL C-Reactive Protein 36.50 H (0.00-1.30) mg/dL Albumin 3.0 L (3.9-5) g/dL ZINA Screen Positive H (Negative) Crossmatch 03/01/20 03/01/20 03/01/20 Range/Units 18:12 18:30 23:37 WBC (4.5-11.0) K/mm3 RBC (3.65-5.03) M/mm3 Hgb (10.1-14.3) gm/dl Hct (30.3-42.9) % MCV (79-97) fl MCH (28-32) pg RDW (13.2-15.2) % Plt Count (140-440) K/mm3 Seg Neuts % (Manual) (40.0-70.0) % Lymphocytes % (Manual) (13.4-35.0) % Nucleated RBC % (0.0-0.9) % Seg Neutrophils # Man (1.8-7.7) K/mm3 Lymphocytes # (Manual) (1.2-5.4) K/mm3 Monocytes # (Manual) (0.0-0.8) K/mm3 POC ABG pCO2 (32.0-48.0) mmHg ABG Hemoglobin (12.0-17.5) Potassium (3.6-5.0) mmol/L Carbon Dioxide (22-30) mmol/L BUN (7-17) mg/dL Creatinine (0.6-1.2) mg/dL Glucose (65-100) mg/dL POC Glucose 121 H 125 H (70-105) Magnesium (1.7-2.3) mg/dL C-Reactive Protein (0.00-1.30) mg/dL Albumin (3.9-5) g/dL ZINA Screen (Negative) Crossmatch See Detail 03/02/20 03/02/20 03/02/20 Range/Units 04:00 05:36 05:36 WBC 26.0 H (4.5-11.0) K/mm3 RBC 3.26 L (3.65-5.03) M/mm3 Hgb 7.8 L (10.1-14.3) gm/dl Hct 24.2 L (30.3-42.9) % MCV 74 L (79-97) fl MCH 24 L (28-32) pg RDW 21.3 H (13.2-15.2) % Plt Count 508 H (140-440) K/mm3 Seg Neuts % (Manual) 86.0 H (40.0-70.0) % Lymphocytes % (Manual) 4.0 L (13.4-35.0) % Nucleated RBC % 2.0 H (0.0-0.9) % Seg Neutrophils # Man 22.4 H (1.8-7.7) K/mm3 Lymphocytes # (Manual) 1.0 L (1.2-5.4) K/mm3 Monocytes # (Manual) (0.0-0.8) K/mm3 POC ABG pCO2 27.8 L (32.0-48.0) mmHg ABG Hemoglobin 8 L (12.0-17.5) Potassium (3.6-5.0) mmol/L Carbon Dioxide 17 L (22-30) mmol/L BUN 85 H (7-17) mg/dL Creatinine 5.6 H (0.6-1.2) mg/dL Glucose 109 H (65-100) mg/dL POC Glucose (70-105) Magnesium 2.50 H (1.7-2.3) mg/dL C-Reactive Protein (0.00-1.30) mg/dL Albumin 2.3 L (3.9-5) g/dL ZINA Screen (Negative) Crossmatch
[2020-03-02] MEDS: fentaNYL 100 MCG/2 ML INJ IV PRN (12:19)
--- NOTE | 2020-03-02 13:03 | Progress Note ---
Assessment and Plan Acute Hypoxemic Respiratory Failure on MVS Severe Sepsis Acute Toxic-Metabolic Encephalopathy Hypertensive urgency Morbid obesity Acute pancreatitis, abdominal pain Medical non compliance Oropharyngeal Dysphagia - NGT at 55 cm but RN unable to suction gastric contents or administer fluids; will get KUB - stopped Versed re: Azotemia - remains non-oliguric; no plans for immediate dialysis - continue flomax 0.4 mg p.o. daily (1st dose now) - prn bladder scans +/- straight cath in short term - continue current vent settings - continue fentanyl for sedation +/- propofol - contiunue care as below otherwise; - daily SAT and SBT assessment as tolerated - accuchecks with glycemic control per SSI (While critically ill target blood glucose of 140-180 mg/dL; avoid hypoglycemia) - sedation prn for target RASS -1 to -2 - continue to wean supplemental oxygen for target O2 sat's > 90% acutely - VAP bundle addressed - continue lung protective strategies - continue bronchodilators with pulmonary hygiene per RT - wean per pulmonary driven protocols otherwise - continue enteral nutritiuon at goal rate as tolerated - continue Zosyn; de-escalate per ID rec's - continue Nicardipine for her blood pressure management till taking orally (target BP < 160 mmHg) - JUANIS per layout designer - Evaluation for sleep apnea as an outpatient - VTE prophylaxis - prn Analgesia per CPOT score - avoid nephrotoxins, renally dose all medications - Maintenance of sleep-wake cycle, avoid delirium - G.I. & VTE prophylaxis - PT/OT/ROM exercises - mobility protocols for pressure ulcer prophylaxis - Monitor hemodynamics closely - continue other care per attending / other consultants - discharge planning ongoing concurrently ..... re-evaluate in am & prn CONDITION: CRITICAL PROGNOSIS: GUARDED CODE STATUS: FULL CODE The high probability of a clinically significant, sudden or life-threatening deterioration of the [respiratory, cardiovascular & GI] system(s) required my full and direct attention, intervention and personal management. The aggregate critical care time was [35] minutes without overlap. Time includes spent on; [x] Data Review and interpretation [x] Patient assessment and monitoring of vital signs [x] Documentation [x] Medication orders and management Subjective Date of service: 03/02/20 Principal diagnosis: HTNsive urgency; Morbid obesity; Ac. pancreatitis; Abdominal pain Interval history: Patient is seen today for: Hypertensive urgency; Morbid obesity; Acute pancreatitis; abdominal pain; Medical non compliance; Acute Toxic Metabolic Encephalopathy Seen and examined at bedside; 24hour events reviewed; nursing and respiratory care staff consulted; no adverse overnight events reported to me; resting peacefully in bed; remains on MVS; sedated; no emesis or overt aspiration; abdominal distension persistent but soft; no high grade fevers; Azotemia is worse Objective Vital Signs - 12hr 03/02/20 03/02/20 03/02/20 01:11 01:21 01:24 Temperature 99.2 F Pulse Rate 86 88 87 Pulse Rate [ Anterior Bilateral Throughout] Respiratory 25 H 25 H 25 H Rate Respiratory Rate [Abdomen] Respiratory Rate [Anterior Bilateral Throughout] Blood Pressure 125/76 129/77 131/83 O2 Sat by Pulse 99 99 99 Oximetry 03/02/20 03/02/20 03/02/20 01:30 01:41 01:43 Temperature 99.2 F Pulse Rate 88 88 88 Pulse Rate [ Anterior Bilateral Throughout] Respiratory 25 H 25 H 25 H Rate Respiratory Rate [Abdomen] Respiratory Rate [Anterior Bilateral Throughout] Blood Pressure 129/77 127/82 127/82 O2 Sat by Pulse 98 98 99 Oximetry 03/02/20 03/02/20 03/02/20 01:51 02:00 02:15 Temperature 99.2 F Pulse Rate 89 91 H 88 Pulse Rate [ Anterior Bilateral Throughout] Respiratory 25 H 25 H 25 H Rate Respiratory Rate [Abdomen] Respiratory Rate [Anterior Bilateral Throughout] Blood Pressure 132/79 135/81 128/78 O2 Sat by Pulse 99 98 99 Oximetry 03/02/20 03/02/20 03/02/20 02:30 02:45 02:49 Temperature 98.8 F Pulse Rate 89 88 Pulse Rate [ Anterior Bilateral Throughout] Respiratory 25 H 25 H Rate Respiratory Rate [Abdomen] Respiratory Rate [Anterior Bilateral Throughout] Blood Pressure 128/80 126/79 O2 Sat by Pulse 97 98 Oximetry 03/02/20 03/02/20 03/02/20 03:00 03:15 03:30 Temperature Pulse Rate 87 88 87 Pulse Rate [ Anterior Bilateral Throughout] Respiratory 25 H 25 H 25 H Rate Respiratory Rate [Abdomen] Respiratory Rate [Anterior Bilateral Throughout] Blood Pressure 131/76 124/79 127/77 O2 Sat by Pulse 99 99 99 Oximetry 03/02/20 03/02/20 03/02/20 03:45 03:50 04:00 Temperature Pulse Rate 85 89 Pulse Rate [ 88 Anterior Bilateral Throughout] Respiratory 25 H 25 H Rate Respiratory Rate [Abdomen] Respiratory 25 H Rate [Anterior Bilateral Throughout] Blood Pressure 126/75 126/84 O2 Sat by Pulse 99 99 Oximetry 03/02/20 03/02/20 03/02/20 04:10 04:15 04:30 Temperature 99.2 F Pulse Rate 88 88 89 Pulse Rate [ Anterior Bilateral Throughout] Respiratory 25 H 25 H 25 H Rate Respiratory Rate [Abdomen] Respiratory Rate [Anterior Bilateral Throughout] Blood Pressure 123/84 127/79 127/80 O2 Sat by Pulse 98 99 99 Oximetry 03/02/20 03/02/20 03/02/20 04:45 05:00 05:15 Temperature Pulse Rate 90 88 88 Pulse Rate [ Anterior Bilateral Throughout] Respiratory 25 H 25 H 25 H Rate Respiratory Rate [Abdomen] Respiratory Rate [Anterior Bilateral Throughout] Blood Pressure 123/75 127/74 125/74 O2 Sat by Pulse 99 99 99 Oximetry 03/02/20 03/02/20 03/02/20 05:30 05:45 06:00 Temperature Pulse Rate 88 88 87 Pulse Rate [ Anterior Bilateral Throughout] Respiratory 25 H 25 H 25 H Rate Respiratory Rate [Abdomen] Respiratory Rate [Anterior Bilateral Throughout] Blood Pressure 125/77 124/73 126/76 O2 Sat by Pulse 99 99 99 Oximetry 03/02/20 03/02/20 03/02/20 06:15 06:30 06:45 Temperature Pulse Rate 87 86 90 Pulse Rate [ Anterior Bilateral Throughout] Respiratory 25 H 25 H 25 H Rate Respiratory Rate [Abdomen] Respiratory Rate [Anterior Bilateral Throughout] Blood Pressure 130/74 128/74 135/79 O2 Sat by Pulse 99 99 98 Oximetry 03/02/20 03/02/20 03/02/20 07:00 07:15 07:30 Temperature Pulse Rate 87 88 87 Pulse Rate [ Anterior Bilateral Throughout] Respiratory 25 H 25 H 25 H Rate Respiratory Rate [Abdomen] Respiratory Rate [Anterior Bilateral Throughout] Blood Pressure 127/74 128/77 129/76 O2 Sat by Pulse 98 98 98 Oximetry 03/02/20 03/02/20 03/02/20 07:45 07:55 08:00 Temperature 99.0 F Pulse Rate 87 87 87 Pulse Rate [ 86 Anterior Bilateral Throughout] Respiratory 25 H 25 H Rate Respiratory Rate [Abdomen] Respiratory 25 H Rate [Anterior Bilateral Throughout] Blood Pressure 127/76 128/75 127/76 O2 Sat by Pulse 99 87 99 Oximetry 03/02/20 03/02/20 03/02/20 08:15 08:30 08:45 Temperature Pulse Rate 88 89 88 Pulse Rate [ Anterior Bilateral Throughout] Respiratory 25 H 25 H 25 H Rate Respiratory Rate [Abdomen] Respiratory Rate [Anterior Bilateral Throughout] Blood Pressure 129/75 127/74 124/75 O2 Sat by Pulse 99 99 99 Oximetry 03/02/20 03/02/20 03/02/20 09:00 09:15 09:30 Temperature Pulse Rate 90 90 89 Pulse Rate [ Anterior Bilateral Throughout] Respiratory 24 25 H 25 H Rate Respiratory Rate [Abdomen] Respiratory Rate [Anterior Bilateral Throughout] Blood Pressure 133/84 130/79 129/77 O2 Sat by Pulse 99 98 99 Oximetry 03/02/20 03/02/20 03/02/20 09:45 09:52 10:00 Temperature Pulse Rate 89 91 H 92 H Pulse Rate [ Anterior Bilateral Throughout] Respiratory 25 H 25 H Rate Respiratory 25 H Rate [Abdomen] Respiratory Rate [Anterior Bilateral Throughout] Blood Pressure 130/79 130/79 135/80 O2 Sat by Pulse 99 98 Oximetry 03/02/20 03/02/20 10:15 11:55 Temperature Pulse Rate 90 90 Pulse Rate [ Anterior Bilateral Throughout] Respiratory 25 H Rate Respiratory Rate [Abdomen] Respiratory Rate [Anterior Bilateral Throughout] Blood Pressure 132/78 136/81 O2 Sat by Pulse 98 99 Oximetry Constitutional: no acute distress, other (Obese female with mildly increased re spiratory effort at rest on MVS) Eyes: non-icteric ENT: oropharynx moist Neck: supple, no lymphadenopathy, no JVD Effort: normal Ascultation: Bilateral: diminished breath sounds (at the bases), rhonchi (scant) Percussion: Bilateral: not dull Cardiovascular: regular rate and rhythm, other (S1,S2) Gastrointestinal: normoactive bowel sounds, hypoactive bowel sounds, soft, non- tender, other (distended but soft) Integumentary: normal Extremities: no cyanosis, no edema, pink and warm, pulses normal Neurologic: normal mental status, non-focal exam (grossly), pupils equal and round, CN II-XII normal, motor strength normal and Psychiatric: mood appropriate, affect normal CBC and BMP: 03/02/20 05:36 03/02/20 05:36 ABG, PT/INR, D-dimer: ABG ABG pH 7.4 (7.320-7.450) 03/02/20 04:00 POC ABG pCO2 27.8 mmHg (32.0-48.0) L 03/02/20 04:00 ABG pCO2 29.4 mm Hg 03/01/20 04:05 POC ABG pO2 89.9 mmHg (83-108) 03/02/20 04:00 ABG pO2 133.5 mm Hg (80.0-90.0) H 03/01/20 04:05 POC ABG HCO3 16.8 03/02/20 04:00 ABG O2 Saturation 98.6 % (95.0-99.0) 03/01/20 04:05 PT/INR, D-dimer PT 13.7 Sec. (12.2-14.9) 02/25/20 03:49 INR 1.03 (0.87-1.13) 02/25/20 03:49 Abnormal lab findings: Abnormal Labs 02/24/20 02/24/20 02/24/20 02:53 02:53 Unknown WBC 12.7 H Hgb 10.0 L RBC Hct MCV 70 L MCH 22 L RDW 17.9 H Plt Count 458 H Lymph % (Auto) 8.9 L Lymph # 1.1 L [place] # Seg Neutrophils % 84.2 H Seg Neutrophils # 10.7 H Seg Neuts % (Manual) Lymphocytes % (Manual) Nucleated RBC % Seg Neutrophils # Man Lymphocytes # (Manual) Monocytes # (Manual) ABG pH POC ABG pCO2 POC ABG pO2 ABG pO2 ABG HCO3 ABG O2 Saturation ABG Base Excess ABG Hemoglobin ABG Oxyhemoglobin Oxyhemoglobin Sodium Potassium Chloride Carbon Dioxide BUN 27 H Creatinine 1.7 H Glucose 118 H POC Glucose Calcium Phosphorus Magnesium Albumin C-Reactive Protein Uquwl-6-Zuatstyxx PEP Interpretation Lipase 232 H PTH Intact Urine WBC (Auto) 11.0 H Urine Creatinine Urine Total Protein ZINA Screen Crossmatch 02/25/20 02/25/20 02/25/20 00:03 03:49 03:49 WBC 29.1 H Hgb 9.4 L RBC Hct 30.2 L MCV 71 L MCH 22 L RDW 18.3 H Plt Count 525 H Lymph % (Auto) 3.4 L Lymph # 1.0 L [place] # 1.0 H Seg Neutrophils % Seg Neutrophils # 26.4 H Seg Neuts % (Manual) Lymphocytes % (Manual) Nucleated RBC % Seg Neutrophils # Man Lymphocytes # (Manual) Monocytes # (Manual) ABG pH POC ABG pCO2 POC ABG pO2 ABG pO2 ABG HCO3 ABG O2 Saturation ABG Base Excess ABG Hemoglobin ABG Oxyhemoglobin Oxyhemoglobin Sodium Potassium Chloride Carbon Dioxide BUN Creatinine Glucose POC Glucose 126 H Calcium Phosphorus Magnesium Albumin C-Reactive Protein Eqfdj-5-Samfyofeg PEP Interpretation Lipase 1486 H PTH Intact Urine WBC (Auto) Urine Creatinine Urine Total Protein ZINA Screen Crossmatch 02/25/20 02/25/20 02/25/20 03:49 05:55 22:55 WBC Hgb RBC Hct MCV MCH RDW Plt Count Lymph % (Auto) Lymph # [place] # Seg Neutrophils % Seg Neutrophils # Seg Neuts % (Manual) Lymphocytes % (Manual) Nucleated RBC % Seg Neutrophils # Man Lymphocytes # (Manual) Monocytes # (Manual) ABG pH POC ABG pCO2 POC ABG pO2 ABG pO2 ABG HCO3 ABG O2 Saturation ABG Base Excess ABG Hemoglobin ABG Oxyhemoglobin Oxyhemoglobin Sodium 136 L Potassium Chloride 97.9 L Carbon Dioxide 21 L BUN 39 H Creatinine 3.0 H D Glucose 118 H POC Glucose 124 H Calcium Phosphorus Magnesium Albumin 3.6 L C-Reactive Protein Emovf-7-Ucgltbabz PEP Interpretation Lipase PTH Intact Urine WBC (Auto) Urine Creatinine 161.0 H Urine Total Protein 150 H ZINA Screen Crossmatch 02/26/20 02/26/20 02/26/20 04:39 04:39 04:39 WBC 30.3 H Hgb 9.1 L RBC Hct 29.8 L MCV 71 L MCH 22 L RDW 18.2 H Plt Count 530 H Lymph % (Auto) Lymph # [place] # Seg Neutrophils % Seg Neutrophils # Seg Neuts % (Manual) Lymphocytes % (Manual) Nucleated RBC % Seg Neutrophils # Man Lymphocytes # (Manual) Monocytes # (Manual) ABG pH POC ABG pCO2 POC ABG pO2 ABG pO2 ABG HCO3 ABG O2 Saturation ABG Base Excess ABG Hemoglobin ABG Oxyhemoglobin Oxyhemoglobin Sodium Potassium Chloride Carbon Dioxide 19 L BUN 44 H Creatinine 3.1 H Glucose 106 H POC Glucose Calcium 8.1 L Phosphorus Magnesium Albumin C-Reactive Protein Bghzu-5-Ofttjwuxb PEP Interpretation Lipase 540 H PTH Intact Urine WBC (Auto) Urine Creatinine Urine Total Protein ZINA Screen Positive H Crossmatch 02/26/20 02/26/20 02/26/20 04:39 08:15 12:14 WBC Hgb RBC Hct MCV MCH RDW Plt Count Lymph % (Auto) Lymph # [place] # Seg Neutrophils % Seg Neutrophils # Seg Neuts % (Manual) Lymphocytes % (Manual) Nucleated RBC % Seg Neutrophils # Man Lymphocytes # (Manual) Monocytes # (Manual) ABG pH POC ABG pCO2 POC ABG pO2 ABG pO2 ABG HCO3 ABG O2 Saturation ABG Base Excess ABG Hemoglobin ABG Oxyhemoglobin Oxyhemoglobin Sodium Potassium Chloride Carbon Dioxide BUN Creatinine Glucose POC Glucose 112 H Calcium Phosphorus Magnesium Albumin 2.8 L C-Reactive Protein Qkpnp-4-Nrsaafahj 0.7 H PEP Interpretation see below H Lipase PTH Intact 911.3 H Urine WBC (Auto) Urine Creatinine Urine Total Protein ZINA Screen Crossmatch 02/27/20 02/27/20 02/27/20 04:18 04:18 04:18 WBC 26.8 H Hgb 7.9 L RBC Hct 26.3 L MCV 70 L MCH 21 L RDW 18.0 H Plt Count 513 H Lymph % (Auto) Lymph # [place] # Seg Neutrophils % Seg Neutrophils # Seg Neuts % (Manual) Lymphocytes % (Manual) Nucleated RBC % Seg Neutrophils # Man Lymphocytes # (Manual) Monocytes # (Manual) ABG pH POC ABG pCO2 POC ABG pO2 ABG pO2 ABG HCO3 ABG O2 Saturation ABG Base Excess ABG Hemoglobin ABG Oxyhemoglobin Oxyhemoglobin Sodium 135 L 135 L Potassium Chloride Carbon Dioxide 15 L 16 L BUN 50 H 51 H Creatinine 3.4 H 3.4 H Glucose POC Glucose Calcium 7.4 L 7.5 L Phosphorus Magnesium Albumin 3.0 L C-Reactive Protein 37.30 H Ucbup-6-Acndukksj PEP Interpretation Lipase 177 H PTH Intact Urine WBC (Auto) Urine Creatinine Urine Total Protein ZINA Screen Crossmatch 02/27/20 02/28/20 02/28/20 16:57 05:07 05:07 WBC Hgb RBC Hct MCV MCH RDW Plt Count Lymph % (Auto) Lymph # [place] # Seg Neutrophils % Seg Neutrophils # Seg Neuts % (Manual) Lymphocytes % (Manual) Nucleated RBC % Seg Neutrophils # Man Lymphocytes # (Manual) Monocytes # (Manual) ABG pH 7.336 L POC ABG pCO2 POC ABG pO2 ABG pO2 57.0 L ABG HCO3 16.4 L ABG O2 Saturation 88.2 L ABG Base Excess -8.4 L ABG Hemoglobin 10.4 L ABG Oxyhemoglobin Oxyhemoglobin 85.7 L Sodium Potassium Chloride Carbon Dioxide 14 L BUN 60 H Creatinine 4.2 H Glucose POC Glucose Calcium 8.2 L Phosphorus Magnesium Albumin C-Reactive Protein Mhnsg-7-Ybvdtpdml PEP Interpretation Lipase 155 H PTH Intact Urine WBC (Auto) Urine Creatinine Urine Total Protein ZINA Screen Crossmatch 02/28/20 02/28/20 02/28/20 05:56 11:05 11:05 WBC Hgb RBC Hct MCV MCH RDW Plt Count Lymph % (Auto) Lymph # [place] # Seg Neutrophils % Seg Neutrophils # Seg Neuts % (Manual) Lymphocytes % (Manual) Nucleated RBC % Seg Neutrophils # Man Lymphocytes # (Manual) Monocytes # (Manual) ABG pH 7.317 L POC ABG pCO2 POC ABG pO2 76.2 L ABG pO2 ABG HCO3 16.4 L ABG O2 Saturation ABG Base Excess -8.9 L ABG Hemoglobin 6.6 L 7.6 L ABG Oxyhemoglobin Oxyhemoglobin 94.6 L Sodium Potassium Chloride Carbon Dioxide BUN Creatinine Glucose POC Glucose 115 H Calcium Phosphorus Magnesium Albumin C-Reactive Protein Qyfyi-5-Babuyduuz PEP Interpretation Lipase PTH Intact Urine WBC (Auto) Urine Creatinine Urine Total Protein ZINA Screen Crossmatch 02/28/20 02/28/20 02/29/20 17:39 19:39 05:43 WBC Hgb RBC Hct MCV MCH RDW Plt Count Lymph % (Auto) Lymph # [place] # Seg Neutrophils % Seg Neutrophils # Seg Neuts % (Manual) Lymphocytes % (Manual) Nucleated RBC % Seg Neutrophils # Man Lymphocytes # (Manual) Monocytes # (Manual) ABG pH 7.300 L POC ABG pCO2 POC ABG pO2 ABG pO2 117.5 H ABG HCO3 15.0 L ABG O2 Saturation ABG Base Excess -10.5 L ABG Hemoglobin 6.4 L ABG Oxyhemoglobin Oxyhemoglobin Sodium Potassium Chloride Carbon Dioxide BUN Creatinine Glucose POC Glucose 120 H 66 L Calcium Phosphorus Magnesium Albumin C-Reactive Protein Ytnmj-9-Ctuzazeoz PEP Interpretation Lipase PTH Intact Urine WBC (Auto) Urine Creatinine Urine Total Protein ZINA Screen Crossmatch 02/29/20 02/29/20 02/29/20 05:45 12:04 12:31 WBC Hgb RBC Hct MCV MCH RDW Plt Count Lymph % (Auto) Lymph # [place] # Seg Neutrophils % Seg Neutrophils # Seg Neuts % (Manual) Lymphocytes % (Manual) Nucleated RBC % Seg Neutrophils # Man Lymphocytes # (Manual) Monocytes # (Manual) ABG pH 7.212 L POC ABG pCO2 POC ABG pO2 ABG pO2 ABG HCO3 ABG O2 Saturation ABG Base Excess ABG Hemoglobin 7.4 L ABG Oxyhemoglobin Oxyhemoglobin Sodium Potassium Chloride Carbon Dioxide BUN Creatinine Glucose POC Glucose 65 L 64 L Calcium Phosphorus Magnesium Albumin C-Reactive Protein Xvwbq-4-Tuoxufadi PEP Interpretation Lipase PTH Intact Urine WBC (Auto) Urine Creatinine Urine Total Protein ZIAN Screen Crossmatch 02/29/20 02/29/20 02/29/20 14:22 14:22 18:20 WBC Hgb RBC Hct MCV MCH RDW Plt Count Lymph % (Auto) Lymph # [place] # Seg Neutrophils % Seg Neutrophils # Seg Neuts % (Manual) Lymphocytes % (Manual) Nucleated RBC % Seg Neutrophils # Man Lymphocytes # (Manual) Monocytes # (Manual) ABG pH POC ABG pCO2 POC ABG pO2 ABG pO2 ABG HCO3 ABG O2 Saturation ABG Base Excess ABG Hemoglobin ABG Oxyhemoglobin Oxyhemoglobin Sodium Potassium Chloride Carbon Dioxide 16 L BUN 77 H Creatinine 4.7 H Glucose POC Glucose 66 L Calcium Phosphorus 7.50 H Magnesium 2.60 H Albumin 2.3 L C-Reactive Protein Mmvjg-8-Cfchasxle PEP Interpretation Lipase PTH Intact Urine WBC (Auto) Urine Creatinine Urine Total Protein ZINA Screen Crossmatch 02/29/20 03/01/20 03/01/20 18:24 04:05 04:37 WBC Hgb RBC Hct MCV MCH RDW Plt Count Lymph % (Auto) Lymph # [place] # Seg Neutrophils % Seg Neutrophils # Seg Neuts % (Manual) Lymphocytes % (Manual) Nucleated RBC % Seg Neutrophils # Man Lymphocytes # (Manual) Monocytes # (Manual) ABG pH 7.271 L 7.347 L POC ABG pCO2 POC ABG pO2 ABG pO2 133.5 H ABG HCO3 15.8 L ABG O2 Saturation ABG Base Excess -8.9 L ABG Hemoglobin 7.2 L 7.6 L ABG Oxyhemoglobin 93.4 L Oxyhemoglobin Sodium Potassium Chloride 107.6 H Carbon Dioxide 14 L BUN 83 H Creatinine 5.6 H Glucose POC Glucose Calcium Phosphorus 6.10 H Magnesium 2.40 H Albumin C-Reactive Protein Qkofa-8-Urxfcbwvi PEP Interpretation Lipase PTH Intact Urine WBC (Auto) Urine Creatinine Urine Total Protein ZINA Screen Crossmatch 03/01/20 03/01/20 03/01/20 11:06 16:22 18:12 WBC 30.5 H Hgb 6.2 L RBC 2.92 L Hct 20.8 L MCV 71 L MCH 21 L RDW 18.2 H Plt Count 560 H Lymph % (Auto) Lymph # [place] # Seg Neutrophils % Seg Neutrophils # Seg Neuts % (Manual) 79.0 H Lymphocytes % (Manual) 3.0 L Nucleated RBC % Seg Neutrophils # Man 24.1 H Lymphocytes # (Manual) 0.9 L Monocytes # (Manual) 2.1 H ABG pH POC ABG pCO2 POC ABG pO2 ABG pO2 ABG HCO3 ABG O2 Saturation ABG Base Excess ABG Hemoglobin ABG Oxyhemoglobin Oxyhemoglobin Sodium Potassium 5.3 H D Chloride Carbon Dioxide 11 L BUN 77 H Creatinine 5.0 H Glucose 54 L POC Glucose 121 H Calcium Phosphorus Magnesium Albumin 3.0 L C-Reactive Protein 36.50 H Hwgbe-3-Vinabzvwo PEP Interpretation Lipase PTH Intact Urine WBC (Auto) Urine Creatinine Urine Total Protein ZINA Screen Crossmatch 03/01/20 03/01/20 03/01/20 18:30 23:37 Unknown WBC Hgb RBC Hct MCV MCH RDW Plt Count Lymph % (Auto) Lymph # [place] # Seg Neutrophils % Seg Neutrophils # Seg Neuts % (Manual) Lymphocytes % (Manual) Nucleated RBC % Seg Neutrophils # Man Lymphocytes # (Manual) Monocytes # (Manual) ABG pH POC ABG pCO2 POC ABG pO2 ABG pO2 ABG HCO3 ABG O2 Saturation ABG Base Excess ABG Hemoglobin ABG Oxyhemoglobin Oxyhemoglobin Sodium Potassium Chloride Carbon Dioxide BUN Creatinine Glucose POC Glucose 125 H Calcium Phosphorus Magnesium Albumin C-Reactive Protein Lvlcg-4-Ofvvbnqxz PEP Interpretation Lipase 297 H PTH Intact Urine WBC (Auto) Urine Creatinine Urine Total Protein ZINA Screen Crossmatch See Detail 03/02/20 03/02/20 03/02/20 04:00 05:36 05:36 WBC 26.0 H Hgb 7.8 L RBC 3.26 L Hct 24.2 L MCV 74 L MCH 24 L RDW 21.3 H Plt Count 508 H Lymph % (Auto) Lymph # [place] # Seg Neutrophils % Seg Neutrophils # Seg Neuts % (Manual) 86.0 H Lymphocytes % (Manual) 4.0 L Nucleated RBC % 2.0 H Seg Neutrophils # Man 22.4 H Lymphocytes # (Manual) 1.0 L Monocytes # (Manual) ABG pH POC ABG pCO2 27.8 L POC ABG pO2 ABG pO2 ABG HCO3 ABG O2 Saturation ABG Base Excess ABG Hemoglobin 8 L ABG Oxyhemoglobin Oxyhemoglobin Sodium Potassium Chloride Carbon Dioxide 17 L BUN 85 H Creatinine 5.6 H Glucose 109 H POC Glucose Calcium Phosphorus Magnesium 2.50 H Albumin 2.3 L C-Reactive Protein Ybsug-7-Kwutwpioo PEP Interpretation Lipase PTH Intact Urine WBC (Auto) Urine Creatinine Urine Total Protein ZINA Screen Crossmatch Additional Studies: CT abd/pelvis reviewed; no bowel obstruction or perforation; + severe pancreatitis with jessica-pancreatic inflammation ; + small bilateral p-leural effusions Allied health notes reviewed: nursing
--- NOTE | 2020-03-02 14:40 | Progress Note ---
Assessment and Plan Assessment and plan: -- Acute pancreatitis/worsening lipase[297 today] Current Visit: Yes Status: Acute Plan to address problem: Mild improvement of symptoms Worsening lipase levels Lipase [phone] IV fluid and IV pain medication. Management per GI Repeat CT abdomen and pelvis 03/01/2020 Interval worsening of acute pancreatitis with increased jessica-pancreatic fat stranding and disorganized fluid Increased intraperitoneal edema simple free fluid collection in the pelvis Local inflammatory changes involving stomach small bowel and bilateral kidneys Interval development of bilateral pleural effusions and associated compressive atelectasis Interval development of diffuse body wall anasarca --JUANIS/worsening renal function[cr 5.6] Current Visit: Yes Status: Acute Plan to address problem: Vasomotor nephropathy gentle hydration, avoid nephrotoxins,nephrology following --Acute hypoxic respiratory failure; intubated /mechanical ventilation Current Visit: Yes Status: Acute Plan to address problem: Secondary to pancreatitis, lung infiltrate, possible ARDS Nebulizers, supportive care Pulmonary critical following Wean as tolerated and extubate --Severe sepsis secondary to pneumonia ; Current Visit: Yes Status: Acute Plan to address problem: Worsening bibasilar opacities on chest x-ray leukocytosis, tachycardia, tachypnea, fever, infiltrate on chest x-ray. Continue Zosyn, follow cultures, ID following --Anemia; Current Visit: Yes Status: Acute Plan to address problem: monitor H&H and transfuse as needed. --Severe metabolic encephalopathy/AMS Current Visit: Yes Status: Acute Plan to address problem: Probably secondary alcohol withdrawal symptoms Treat the underlying cause,CIWA protocol, supportive care --Possible alcohol withdrawal symptoms; Current Visit: Yes Status: Acute Plan to address problem: Discussed with GI Dr. De La Rosa , agree with CIWA closely monitor , Ativan as needed Continue CIWA protocol --Worsening leukocytosis Current Visit: Yes Status: Acute Plan to address problem: Secondary to sepsis due to bibasilar pneumonia, acute pancreatitis, ID and GI following -- Hypertensive emergency Current Visit: Yes Status: Acute Plan to address problem: s/p Cardene drip, closely monitor BP well controlled oral antihypertensives IV antihypertensives, PRN --Severe metabolic acidosis; Current Visit: Yes Status: Acute Plan to address problem: Management per nephrology --Medical noncompliance Current Visit: Yes Status: Acute Plan to address problem: Patient was counseled upon admission -- DVT prophylaxis Current Visit: Yes Status: Acute Plan to address problem: Patient placed on subcutaneous heparin. --Obesity; BMI 37.9 Current Visit: Yes Status: Acute Plan to address problem: patient needs weight reduction when medically stable. -- Full code status Current Visit: Yes Status: Acute Follow GI and pulmonary evaluation and recommendations We will closely monitor the patient and adjust the management as needed Closely monitor the patient and adjust management as needed. Patient is critically ill with multiple medical problems Prognosis poor, family aware The high probability of a clinically significant, sudden or life threatening deterioration of the [GI, CVS, renal, respiratory and metabolic] system(s) required my full and direct attention, intervention and personal management. The aggregate critical care time was [35] minutes. This time is in addition to time spent performing reported procedures but includes the following: [x] Data Review and interpretation [x] Patient assessment and monitoring of vital signs [x] Documentation [x] Medication orders and management History Interval history: I have seen and examined the patient at the bedside this morning Patient's chart and medications reviewed Patient critically ill, intubated on ventilatory support Repeat CT abdomen and pelvis done yesterday, findings reviewed Worsening edema, generalized anasarca Vital signs noted Hospitalist Physical - Constitutional Vitals: Temp Pulse Resp BP Pulse Ox 99.0 F 90 25 H 136/81 99 03/02/20 08:00 03/02/20 11:55 03/02/20 10:15 03/02/20 11:55 03/02/20 11:55 General appearance: Present: no acute distress, well-nourished, obese, other (Intubated and sedated.) - EENT Eyes: Present: PERRL, EOM intact - Neck Neck: Present: supple, normal ROM - Respiratory Respiratory effort: normal Respiratory: bilateral: diminished, rales, rhonchi, negative: wheezing - Cardiovascular Rhythm: regular Heart Sounds: Present: S1 & S2 - Extremities Extremities: no ischemia, No edema - Abdominal General gastrointestinal: soft, non-tender, non-distended, normal bowel sounds - Integumentary Integumentary: Present: clear, warm - Psychiatric Psychiatric: other (Intubated on vent) - Neurologic Neurologic: other (Intubated on vent) Results - Labs CBC & Chem 7: 03/02/20 05:36 03/02/20 05:36 Labs: Laboratory Last Values WBC 26.0 K/mm3 (4.5-11.0) H 03/02/20 05:36 RBC 3.26 M/mm3 (3.65-5.03) L 03/02/20 05:36 Hgb 7.8 gm/dl (10.1-14.3) L 03/02/20 05:36 Hct 24.2 % (30.3-42.9) L 03/02/20 05:36 MCV 74 fl (79-97) L 03/02/20 05:36 MCH 24 pg (28-32) L 03/02/20 05:36 MCHC 32 % (30-34) 03/02/20 05:36 RDW 21.3 % (13.2-15.2) H 03/02/20 05:36 Plt Count 508 K/mm3 (140-440) H 03/02/20 05:36 Lymph % (Auto) 3.4 % (13.4-35.0) L 02/25/20 03:49 Glades % (Auto) 5.5 % (0.0-7.3) 02/25/20 03:49 Eos % (Auto) 0.1 % (0.0-4.3) 02/25/20 03:49 Baso % (Auto) 0.2 % (0.0-1.8) 02/25/20 03:49 Lymph # 1.0 K/mm3 (1.2-5.4) L 02/25/20 03:49 Glades # 1.0 K/mm3 (0.0-0.8) H 02/25/20 03:49 Eos # 0.0 K/mm3 (0.0-0.4) 02/25/20 03:49 Baso # 0.1 K/mm3 (0.0-0.1) 02/25/20 03:49 Seg Neutrophils % Data Warehouse Architect 02/25/20 03:49 Add Manual Diff Complete 03/02/20 05:36 Total Counted 100 03/02/20 05:36 Seg Neutrophils # 26.4 K/mm3 (1.8-7.7) H 02/25/20 03:49 Seg Neuts % (Manual) 86.0 % (40.0-70.0) H 03/02/20 05:36 Band Neutrophils % 6.0 % 03/02/20 05:36 Lymphocytes % (Manual) 4.0 % (13.4-35.0) L 03/02/20 05:36 Reactive Lymphs % (Man) 0 % 03/02/20 05:36 Monocytes % (Manual) 2.0 % (0.0-7.3) 03/02/20 05:36 Eosinophils % (Manual) 0 % (0.0-4.3) 03/02/20 05:36 Basophils % (Manual) 0 % (0.0-1.8) 03/02/20 05:36 Metamyelocytes % 2.0 % 03/02/20 05:36 Myelocytes % 0 % 03/02/20 05:36 Promyelocytes % 0 % 03/02/20 05:36 Blast Cells % 0 % 03/02/20 05:36 Nucleated RBC % 2.0 % (0.0-0.9) H 03/02/20 05:36 Seg Neutrophils # Man 22.4 K/mm3 (1.8-7.7) H 03/02/20 05:36 Band Neutrophils # 1.6 K/mm3 03/02/20 05:36 Lymphocytes # (Manual) 1.0 K/mm3 (1.2-5.4) L 03/02/20 05:36 Abs React Lymphs (Man) 0.0 K/mm3 03/02/20 05:36 Monocytes # (Manual) 0.5 K/mm3 (0.0-0.8) 03/02/20 05:36 Eosinophils # (Manual) 0.0 K/mm3 (0.0-0.4) 03/02/20 05:36 Basophils # (Manual) 0.0 K/mm3 (0.0-0.1) 03/02/20 05:36 Metamyelocytes # 0.5 K/mm3 03/02/20 05:36 Myelocytes # 0.0 K/mm3 03/02/20 05:36 Promyelocytes # 0.0 K/mm3 03/02/20 05:36 Blast Cells # 0.0 K/mm3 03/02/20 05:36 WBC Morphology Not Reportable 03/02/20 05:36 Hypersegmented Neuts Not Reportable 03/02/20 05:36 Hyposegmented Neuts Not Reportable 03/02/20 05:36 Hypogranular Neuts Not Reportable 03/02/20 05:36 Smudge Cells Not Reportable 03/02/20 05:36 Toxic Granulation Not Reportable 03/02/20 05:36 Toxic Vacuolation Not Reportable 03/02/20 05:36 Dohle Bodies Not Reportable 03/02/20 05:36 Pelger-Huet Anomaly Not Reportable 03/02/20 05:36 Maia Rods Not Reportable 03/02/20 05:36 Platelet Estimate Consistent w auto 03/02/20 05:36 Clumped Platelets Not Reportable 03/02/20 05:36 Plt Clumps, EDTA Not Reportable 03/02/20 05:36 Large Platelets Not Reportable 03/02/20 05:36 Giant Platelets Not Reportable 03/02/20 05:36 Platelet Satelliting Not Reportable 03/02/20 05:36 Plt Morphology Comment Not Reportable 03/02/20 05:36 RBC Morphology Not Reportable 03/02/20 05:36 Dimorphic RBCs Not Reportable 03/02/20 05:36 Polychromasia Not Reportable 03/02/20 05:36 Hypochromasia 2+ 03/02/20 05:36 Poikilocytosis Not Reportable 03/02/20 05:36 Anisocytosis 1+ 03/02/20 05:36 Microcytosis Not Reportable 03/02/20 05:36 Macrocytosis Not Reportable 03/02/20 05:36 Spherocytes Not Reportable 03/02/20 05:36 Pappenheimer Bodies Not Reportable 03/02/20 05:36 Sickle Cells Not Reportable 03/02/20 05:36 Target Cells Not Reportable 03/02/20 05:36 Tear Drop Cells Not Reportable 03/02/20 05:36 Ovalocytes Not Reportable 03/02/20 05:36 Helmet Cells Not Reportable 03/02/20 05:36 Jackson-Reedy Bodies Not Reportable 03/02/20 05:36 Dowagiac Rings Not Reportable 03/02/20 05:36 Mirna Cells Not Reportable 03/02/20 05:36 Bite Cells Not Reportable 03/02/20 05:36 Crenated Cell Not Reportable 03/02/20 05:36 Elliptocytes Not Reportable 03/02/20 05:36 Acanthocytes (Spur) Not Reportable 03/02/20 05:36 Rouleaux Not Reportable 03/02/20 05:36 Hemoglobin C Crystals Not Reportable 03/02/20 05:36 Schistocytes Not Reportable 03/02/20 05:36 Malaria parasites Not Reportable 03/02/20 05:36 Edgardo Bodies Not Reportable 03/02/20 05:36 Hem Pathologist Commnt No 03/02/20 05:36 PT 13.7 Sec. (12.2-14.9) 02/25/20 03:49 INR 1.03 (0.87-1.13) 02/25/20 03:49 ABG pH 7.4 (7.320-7.450) 03/02/20 04:00 POC ABG pCO2 27.8 mmHg (32.0-48.0) L 03/02/20 04:00 ABG pCO2 29.4 mm Hg 03/01/20 04:05 POC ABG pO2 89.9 mmHg (83-108) 03/02/20 04:00 ABG pO2 133.5 mm Hg (80.0-90.0) H 03/01/20 04:05 POC ABG HCO3 16.8 03/02/20 04:00 ABG HCO3 15.8 mmol/L (20.0-26.0) L 03/01/20 04:05 ABG O2 Saturation 98.6 % (95.0-99.0) 03/01/20 04:05 ABG O2 Content 10.6 (0.0-44) 03/01/20 04:05 POC ABG Base Excess -7.1 03/02/20 04:00 ABG Base Excess -8.9 mmol/L (-2.0-3.0) L 03/01/20 04:05 ABG Hemoglobin 8 (12.0-17.5) L 03/02/20 04:00 ABG Oxyhemoglobin 93.4 (94-98) L 02/29/20 18:24 ABG Carboxyhemoglobin 1.8 % (0.0-5.0) 03/01/20 04:05 ABG Methemoglobin 0.5 % (0.0-1.5) 03/01/20 04:05 Oxyhemoglobin 96.3 % (95.0-99.0) 03/01/20 04:05 Carboxyhemoglobin 1.0 (0.5-1.5) 02/29/20 18:24 FiO2 30 03/02/20 04:00 Sodium 143 mmol/L (137-145) 03/02/20 05:36 Potassium 4.0 mmol/L (3.6-5.0) D 03/02/20 05:36 Chloride 106.8 mmol/L (98-107) 03/02/20 05:36 Carbon Dioxide 17 mmol/L (22-30) L 03/02/20 05:36 Anion Gap 23 mmol/L 03/02/20 05:36 BUN 85 mg/dL (7-17) H 03/02/20 05:36 Creatinine 5.6 mg/dL (0.6-1.2) H 03/02/20 05:36 Estimated GFR 10 ml/min 03/02/20 05:36 BUN/Creatinine Ratio 15 % 03/02/20 05:36 Glucose 109 mg/dL (65-100) H 03/02/20 05:36 POC Glucose 95 (70-105) 03/02/20 11:47 Lactic Acid 0.90 mmol/L (0.7-2.0) 02/27/20 19:33 Calcium 9.0 mg/dL (8.4-10.2) 03/02/20 05:36 Phosphorus 6.10 mg/dL (2.5-4.5) H 03/01/20 04:37 Magnesium 2.50 mg/dL (1.7-2.3) H 03/02/20 05:36 Total Bilirubin 1.20 mg/dL (0.1-1.2) 03/02/20 05:36 Direct Bilirubin 0.2 mg/dL (0-0.2) 02/29/20 14:22 Indirect Bilirubin 0.2 mg/dL 02/29/20 14:22 AST 21 units/L (5-40) 03/02/20 05:36 ALT 12 units/L (7-56) 03/02/20 05:36 Alkaline Phosphatase 90 units/L (35-129) 03/02/20 05:36 C-Reactive Protein 36.50 mg/dL (0.00-1.30) H 03/01/20 11:06 Serum Total Protein 6.3 g/dL (6.1-8.1) 02/26/20 04:39 Total Protein 6.4 g/dL (6.3-8.2) 03/02/20 05:36 Albumin 2.3 g/dL (3.9-5) L 03/02/20 05:36 Albumin/Globulin Ratio 0.6 % 03/02/20 05:36 Xysha-6-Vslizvezu 0.7 g/dL (0.2-0.3) H 02/26/20 04:39 Kwuts-0-Bcgybwzlf 0.8 g/dL (0.5-0.9) 02/26/20 04:39 Beta Globulins 0.4 g/dL (0.2-0.5) 02/26/20 04:39 Gamma Globulins 1.2 g/dL (0.8-1.7) 02/26/20 04:39 Abnorm Protein Band 1 see below 02/26/20 04:39 PEP Interpretation see below H 02/26/20 04:39 Triglycerides 118 mg/dL (2-149) 02/26/20 04:39 Lipase 297 units/L (13-60) H 03/01/20 Unknown HCG, Qual Negative (Negative) 02/24/20 02:53 PTH Intact 911.3 pg/mL (15-65) H 02/26/20 08:15 Urine Color Yellow (Yellow) 02/24/20 Unknown Urine Turbidity Clear (Clear) 02/24/20 Unknown Urine pH 6.0 (5.0-7.0) 02/24/20 Unknown Ur Specific [place] 1.020 (1.003-1.030) 02/24/20 Unknown Urine Protein >500 mg/dL (Negative) 02/24/20 Unknown Urine Glucose (UA) 50 mg/dL (Negative) 02/24/20 Unknown Urine Ketones Neg mg/dL (Negative) 02/24/20 Unknown Urine Blood Lg (Negative) 02/24/20 Unknown Urine Nitrite Neg (Negative) 02/24/20 Unknown Urine Bilirubin Neg (Negative) 02/24/20 Unknown Urine Urobilinogen < 2.0 mg/dL (<2.0) 02/24/20 Unknown Ur Leukocyte Esterase Neg (Negative) 02/24/20 Unknown Urine WBC (Auto) 11.0 /HPF (0.0-6.0) H 02/24/20 Unknown Urine RBC (Auto) 149.0 /HPF (0.0-6.0) 02/24/20 Unknown U Epithel Cells (Auto) 5.0 /HPF (0-13.0) 02/24/20 Unknown Urine Bacteria (Auto) 1+ /HPF (Negative) 02/24/20 Unknown Urine Mucus Few /HPF 02/24/20 Unknown Urine Creatinine 161.0 mg/dL (0.1-20.0) H 02/25/20 22:55 Protein/Creatinin Ratio 0.93 02/25/20 22:55 Urine Total Protein 150 mg/dL (5-11.8) H 02/25/20 22:55 ZINA Screen Positive (Negative) H 02/26/20 04:39 Proteinase 3 (PR3) Ab <1.0 AI (<1.0) 02/26/20 04:39 Myeloperoxidase Ab <1.0 AI (<1.0) 02/26/20 04:39 Blood Type AB POSITIVE 03/01/20 18:30 Antibody Screen Negative 03/01/20 18:30 Crossmatch See Detail 03/01/20 18:30 Microbiology: Microbiology 02/29/20 Unknown Tracheal Aspirate Sputum Culture - Preliminary 02/26/20 18:56 Peripheral/Venous Blood Culture - Preliminary NO GROWTH AFTER 4 DAYS 02/26/20 18:56 Peripheral/Venous Blood Culture - Preliminary NO GROWTH AFTER 4 DAYS - Diagnostic Impressions Diagnostic Impressions: Echocardiogram 02/26/20 09:11 Transthoracic Echocardiogram Indication: Cardiomegaly BP: 149/92 HR: 122 Conclusions *Global left ventricular systolic function is normal. *The estimated ejection fraction is 60-65%. *Moderate to severe concentric left ventricular hypertrophy is observed. *The left atrium is mild to moderately dilated. *The aortic valve leaflets are moderately thickened. *A mean gradient of 22.39 mmHg across the outflow tract is likely not due to but hyperdynamic flow and LVH. *There is trace tricuspid regurgitation. Findings Left Ventricle: The left ventricular chamber size is normal. Moderate to severe concentric left ventricular hypertrophy is observed. Global left ventricular systolic function is normal. The estimated ejection fraction is 60-65%. Left Atrium: The left atrium is mild to moderately dilated. Right Ventricle: The right ventricular cavity size is normal. The right ventricular global systolic function is normal. Right Atrium: The right atrial cavity size is normal. Aortic Valve: The aortic valve leaflets are moderately thickened. There is no evidence of aortic regurgitation. The mean gradient of the aortic valve is 22.39 mmHg. Mitral Valve: The mitral valve leaflets are mildly thickened. There is trace of mitral regurgitation. There is no evidence of mitral stenosis. Tricuspid Valve: There is trace tricuspid regurgitation. No pulmonary hypertension is noted. Pulmonic Valve: There is trace pulmonic regurgitation. Pericardium: There is no pericardial effusion. Aorta: There is no dilatation of the ascending aorta. There is no dilatation of the aortic root. Venous: The inferior vena cava appears normal in size. Measurements Chambers 2D Name Value Normal Range IVSd (2D) 1.8 cm (0.6 - 1.1) LVPWd (2D) 1.74 cm (0.6 - 1.1) LVIDd (2D) 4.57 cm (3.7 - 5.6) LVIDs (2D) 2.73 cm (2 - 3.8) LV FS (2D) 40.27 % - EF Teichholz (2D) 71.04 % - Ao root diameter (2D) 2.79 cm (2 - 3.7) Volumes/Mass Name Value Normal Range LA ESV SP 4CH (A/L) 54.18 ml - LA ESV SP 2CH (A/L) 61.84 ml - LA ESV BP (A/L) 58.1 ml - LA ESV BP (A/L) index 30.74 ml/m2 - LA ESV SP 4CH (MOD) 52.89 ml - LA ESV SP 2CH (MOD) 60.65 ml - LA ESV BP (MOD) 56.77 ml - LA ESV BP (MOD) index 30.04 ml/m2 - LV EDV SP 4CH (MOD) 164.2 ml - LV ESV SP 4CH (MOD) 58.04 ml - EF SP 4CH (MOD) 64.65 % - Diastolic/Systolic Function Name Value Normal Range MV E-wave Vmax 1.38 m/sec - MV deceleration time 92.78 msec - MV A-wave Vmax 1.44 m/sec - MV E:A ratio 0.95 ratio - Aortic Valve Name Value Normal Range AV Vmax 3.08 m/sec - AV VTI 36.74 cm - AV peak gradient 37.98 mmHg - AV mean gradient 22.39 mmHg - LVOT diameter 2.01 cm - LVOT Vmax 2.45 m/sec - LVOT VTI 29.85 cm - LVOT peak gradient 24.04 mmHg - LVOT mean gradient 11.11 mmHg - SV LVOT 94.73 ml - JADA (continuity Vmax) 2.52 cm2 - JADA (continuity VTI) 2.58 cm2 - Ascending Ao 2.64 cm - Mitral Valve Name Value Normal Range MV PHT 37.88 msec - MVA (PHT) 5.81 cm2 - Tricuspid Valve Name Value Normal Range IVC diameter 1.93 cm (1.2 - 2.3) Pulmonic Valve/Qp:Qs Name Value Normal Range PV Vmax 2.83 m/sec - PV VTI 45.88 cm - PV peak gradient 32.06 mmHg - PV mean gradient 16.11 mmHg - ME end-diastolic Vmax 0.81 m/sec - RVOT Vmax 1.82 m/sec - RVOT VTI 25.12 cm - RVOT peak gradient 13.3 mmHg - Franks/IV: Voiding Method External Female Catheter IV Catheter Type [Left Upper INT / Saline Lock arm] IV Catheter Type [Right Upper INT / Saline Lock arm] IV Catheter Type [Right INT / Saline Lock Forearm] IV Catheter Type [Right Wrist] Peripheral IV IV Catheter Type [Right Peripheral IV Antecubital] Active Medications - Current Medications Current Medications: Generic Name Dose Route Start Last Admin Trade Name Freq PRN Reason Stop Dose Admin Acetaminophen 650 mg 02/26/20 16:23 02/26/20 16:37 Tylenol PO 650 mg Q4H PRN Administration Pain, Mild (1-3)/ Temp >100. Albuterol 2.5 mg 02/27/20 17:55 Proventil IH Q4HRT PRN Shortness Of Breath Albuterol/Ipratropium 1 ampul 02/28/20 12:17 03/02/20 07:54 Duoneb *Not For Prn Use* IH 1 ampul Q6HRT INDU Administration Amlodipine Besylate 10 mg 02/28/20 10:00 03/01/20 09:53 Amlodipine PO 10 mg QDAY INDU Administration Lipase/Protease/Amylase 1 each 03/01/20 08:46 Pancrealivia Davis 10,500 Unit FEEDTUBE PRN PRN For Clogged Feeding Tube Dextrose 50 ml 02/29/20 08:00 03/01/20 00:20 D50w (25gm) Syringe IV 10 ml Q30MIN PRN Administration HYPOGLYCEMIA Protocol Fentanyl 50 mcg 02/29/20 15:35 03/02/20 12:19 Sublimaze IV 50 mcg Q10MIN PRN Administration ANALGESIA Haloperidol Lactate 5 mg 02/28/20 11:30 02/28/20 11:51 Haldol IV 5 mg Q1H PRN Administration Unrespon. to mult. doses BZD's Heparin Sodium (Porcine) 5,000 unit 02/24/20 14:00 03/02/20 06:29 Heparin SUB-Q 5,000 unit Q8HR INDU Administration Hydralazine HCl 50 mg 02/28/20 14:00 03/02/20 05:56 Apresoline PO Not Given Q8HR INDU Hydrophilic Ointment 1 applic 02/29/20 15:35 Vaseline Lip Therapy TP Q2HR PRN Dry Lips Nicardipine HCl 50 mg/ Sodium 250 mls @ 25 mls/hr 02/24/20 07:00 02/28/20 12:51 Chloride IV 0 mg/hr TITR INDU 0 mls/hr Titration Protocol 5 MG/HR Piperacillin Sod/Tazobactam Sod 2.25 gm in 50 mls @ 100 mls/hr 02/26/20 18:30 03/02/20 01:58 Zosyn/Ns 2.25 Gm/50ml IV 100 mls/hr Q8H INDU Administration Protocol Fentanyl Citrate 2,000 mcg in 100 mls @ 4.55 mls/hr 02/29/20 16:00 03/02/20 09:40 Fentanyl Drip Premix IV 3 mcg/kg/hr TITR INDU 13.65 mls/hr Administration Protocol 1 MCG/KG/HR Midazolam HCl 100 mg/ Sodium 100 mls @ 2 mls/hr 02/29/20 16:00 03/02/20 03:58 Chloride IV 3 mg/hr TITR INDU 3 mls/hr Administration Protocol 2 MG/HR Propofol 1,000 mg in 100 mls @ 2.73 mls/hr 02/29/20 18:00 Diprivan 10 Mg/Ml IV TITR INDU Protocol 5 MCG/KG/MIN Sodium Bicarbonate 150 meq/ 1,150 mls @ 42 mls/hr 03/02/20 10:00 Dextrose IV DIRECT INDU Labetalol HCl 10 mg 02/28/20 09:00 Labetalol IV Q4H PRN Hypertension Lorazepam 1 mg 02/28/20 04:20 02/28/20 11:05 Ativan IV 1 mg Q4H PRN Administration Agitation Lorazepam 2 mg 02/28/20 11:30 02/29/20 11:43 Ativan IV 2 mg Q1H PRN Administration CIWA-Ar 8-15 Lorazepam 4 mg 02/28/20 11:30 02/29/20 16:19 Ativan IV 4 mg Q1H PRN Administration [facility] 16-25 Metoprolol Tartrate 25 mg 02/28/20 10:00 03/02/20 09:52 Metoprolol PO 25 mg BID INDU Administration Midazolam HCl 2 mg 02/29/20 15:35 02/29/20 17:00 Versed IV 2 mg Q10MIN PRN Administration Sedation Multi-Ingred Cream/Lotion/Oil/Oint 1 applic 02/29/20 15:35 Artificial Tears Ophth Oint OU Q4HR PRN Dry Eye(s) Ondansetron HCl 4 mg 02/24/20 06:45 02/25/20 23:33 Zofran IV 4 mg Q8H PRN Administration Nausea And Vomiting Pantoprazole Sodium 40 mg 02/24/20 13:00 03/02/20 09:51 Protonix IV 40 mg QDAY INDU Administration Simple Syrup 15 ml 03/01/20 08:46 Simple Syrup FEEDTUBE PRN PRN Hypoglycemia Simple Syrup 30 ml 03/01/20 08:46 Simple Syrup FEEDTUBE PRN PRN Hypoglycemia Sodium Bicarbonate 325 mg 03/01/20 08:46 Sodium Bicarbonate FEEDTUBE PRN PRN For Clogged Feeding Tube Sodium Bicarbonate 1,300 mg 03/01/20 16:43 03/01/20 22:19 Sodium Bicarbonate PO Not Given TID INDU Sodium Chloride 10 ml 02/24/20 10:00 03/02/20 09:51 Sodium Chloride Flush Syringe 10 Ml IV 10 ml BID INDU Administration Sodium Chloride 10 ml 02/24/20 06:45 Sodium Chloride Flush Syringe 10 Ml IV PRN PRN LINE FLUSH Tamsulosin HCl 0.4 mg 03/01/20 17:00 03/02/20 09:52 Flomax PO 0.4 mg QDAY INDU Administration Nutrition/Malnutrition Assess - Dietary Evaluation Nutrition/Malnutrition Findings: Nutrition Notes Start: 02/24/20 13:42 Freq: Status: Active Protocol: Document 03/01/20 08:37 LM (Rec: 03/01/20 08:46 LM [email or web address]) Nutrition Notes Need for Assessment generated from: MD Order Initial or Follow up Reassessment Current Diagnosis Acute Kidney Injury,Sepsis, Hypertension,Respiratory Failure,Hyperlipidemia Other Pertinent Diagnosis Acute pancreatitis Current Diet TF Labs/Tests Phos 6.1 Mg 2.4 BUN 83 Cr 5.6 Pertinent Medications Reviewed Height 5 ft 1 in Weight 91 kg [place] Body Weight (kg) 47.72 BMI 37.9 Weight Status Obese Subjective/Other Information MD consult for TF. Pt intubated yesterday. Percent of energy/protein needs met: 0%/0% Burn Absent Trauma Absent GI Symptoms None Current % PO Negligible Minimum of two criteria No Fluid Accumulation Moderate to Severe (severe) #2 Nutrition Diagnosis Inadequate oral intake Diagnosis Progress(for reassessment Continues documentation) #1 Nutrition Diagnosis Food and nutrition-related knowledge deficit Diagnosis Progress(for reassessment Continues documentation) Is patient on ventilator? Yes Is Patient Ambulatory and/or Out of Bed No REE-([facility]-confined to bed) 1823.604 Kcal/Kg value to use for calculation 16 Approximate Energy Requirements Using 1456 kcal/Kg Calculation Used for Recommendations Kcal/kg Additional Notes Pro: 96g (>2g/kg using IBW 48kg) Fluid: 1ml/kcal Nutrition Intervention Change Diet Order: TF Nutrition Support: Nepro 1.8 at 35ml/hr Flush 150ml q4h Kcal 1,512 Protein (gm) 68 Fluid (mL) 611 Add Supplement/Snack (indicate name/kcal D/C /protein ) Goal #1 TF start/tolerance Anticipated Discharge Needs: Undetermined at this time Follow-Up By: 03/03/20 Additional Comments F/U for TF start/tolerance, Phos lab
[2020-03-02] MEDS: SODIUM BICARBONATE 650 MG TAB PO SCH ×3 (15:00→19:54)
--- NOTE | 2020-03-02 15:16 | XRay Report ---
ABDOMEN 1 VIEW(S) INDICATION / CLINICAL INFORMATION: NGT location. COMPARISON: 02/29/2020 FINDINGS: TUBES / LINES: The distal tip of the nasogastric tube terminates at the pylorus. BOWEL GAS PATTERN: Mildly dilated loops of small bowel in the central abdomen are suspected which marek ears grossly unchanged. FREE AIR / EXTRALUMINAL GAS: None seen. ADDITIONAL FINDINGS: No significant additional findings. IMPRESSION: The nasogastric tube terminates in the distal stomach. Signer Name: Serjio Gill Jr, MD Signed: 03/02/2020 3:11 PM Workstation Name: [id number]
--- NOTE | 2020-03-02 20:49 | Progress Note ---
Assessment and Plan (1) Acute pancreatitis - Developing complications related to local and systemic effects. Worsening renal failure, and WBC elevated. Etiology of pancreatitis unclear, but may be EtOH given course with possible DTs, though now seems to be developing multi-organ failure. - given calcification in HOP, MRCP at some point in future is reasonable, but no need urgently - based on course, repeat CT to monitor evolution of pancreatitis, usu q [address] was on 02/24. May repeat soon this week, based on course. - would place Dobhoff and initiate tube feeding and check lipase (2) Altered mental status - now intubated and sedated. 3. Anemia - on PPI. Hgb up to 7.2. - will defer transfusion, etc to Hospitalist Current Visit: Yes Status: Acute Plan to address problem: - Consider nutritional support with Dobhoff, and monitor pancreatitis. Subjective Date of service: 03/02/20 Principal diagnosis: HTNsive urgency; Morbid obesity; Ac. pancreatitis; Abdomi nal pain Interval history: Pt stable overnight. She is currently sedated, on ventilator. Objective - Constitutional Vitals: Vital Signs - 12hr 03/02/20 03/02/20 03/02/20 09:00 09:15 09:30 Temperature Pulse Rate 90 90 89 Respiratory 24 25 H 25 H Rate Respiratory Rate [Abdomen] Blood Pressure 133/84 130/79 129/77 O2 Sat by Pulse 99 98 99 Oximetry 03/02/20 03/02/20 03/02/20 09:45 09:52 10:00 Temperature Pulse Rate 89 91 H 92 H Respiratory 25 H 25 H Rate Respiratory 25 H Rate [Abdomen] Blood Pressure 130/79 130/79 135/80 O2 Sat by Pulse 99 98 Oximetry 03/02/20 03/02/20 03/02/20 10:15 10:30 10:45 Temperature Pulse Rate 90 89 89 Respiratory 25 H 25 H 25 H Rate Respiratory Rate [Abdomen] Blood Pressure 132/78 132/80 135/78 O2 Sat by Pulse 98 98 99 Oximetry 03/02/20 03/02/20 03/02/20 11:00 11:15 11:30 Temperature Pulse Rate 89 88 93 H Respiratory 25 H 25 H 25 H Rate Respiratory Rate [Abdomen] Blood Pressure 134/77 134/81 155/96 O2 Sat by Pulse 99 99 97 Oximetry 09/03/02/20 03/02/20 11:45 11:55 12:00 Temperature 99.2 F Pulse Rate 90 90 90 Respiratory 25 H 25 H Rate Respiratory Rate [Abdomen] Blood Pressure 136/81 136/81 132/80 O2 Sat by Pulse 98 99 98 Oximetry 03/02/20 03/02/20 03/02/20 12:15 12:30 12:45 Temperature Pulse Rate 88 89 89 Respiratory 25 H 25 H 25 H Rate Respiratory Rate [Abdomen] Blood Pressure 129/77 128/78 131/82 O2 Sat by Pulse 99 99 98 Oximetry 03/02/20 03/02/20 03/02/20 13:00 13:15 13:30 Temperature Pulse Rate 90 89 88 Respiratory 25 H 25 H 25 H Rate Respiratory Rate [Abdomen] Blood Pressure 130/84 130/81 132/82 O2 Sat by Pulse 98 98 99 Oximetry 03/02/20 03/02/20 03/02/20 13:45 14:00 14:15 Temperature Pulse Rate 90 89 90 Respiratory 25 H 25 H 25 H Rate Respiratory Rate [Abdomen] Blood Pressure 135/84 131/82 133/83 O2 Sat by Pulse 99 98 99 Oximetry 03/02/20 03/02/20 03/02/20 14:30 14:45 15:01 Temperature Pulse Rate 89 93 H 98 H Respiratory 25 H 25 H 25 H Rate Respiratory Rate [Abdomen] Blood Pressure 130/85 129/87 142/94 O2 Sat by Pulse 98 98 97 Oximetry 03/02/20 03/02/20 03/02/20 15:15 15:30 15:45 Temperature Pulse Rate 97 H 97 H 97 H Respiratory 25 H 25 H 25 H Rate Respiratory Rate [Abdomen] Blood Pressure 148/92 150/91 146/95 O2 Sat by Pulse 96 97 97 Oximetry 03/02/20 03/02/20 03/02/20 16:00 16:01 16:15 Temperature 101.1 F H Pulse Rate 97 H 104 H 101 H Respiratory 25 H 25 H Rate Respiratory Rate [Abdomen] Blood Pressure 184/103 153/96 O2 Sat by Pulse 96 96 Oximetry 03/02/20 03/02/20 03/02/20 16:30 16:45 16:49 Temperature Pulse Rate 99 H 97 H 98 H Respiratory 25 H 25 H Rate Respiratory Rate [Abdomen] Blood Pressure 156/91 146/87 146/87 O2 Sat by Pulse 97 97 97 Oximetry 03/02/20 03/02/20 03/02/20 17:00 17:15 17:30 Temperature Pulse Rate 97 H 98 H 98 H Respiratory 25 H 25 H 25 H Rate Respiratory Rate [Abdomen] Blood Pressure 149/90 145/91 144/94 O2 Sat by Pulse 96 97 96 Oximetry 03/02/20 03/02/20 03/02/20 17:45 18:00 18:15 Temperature Pulse Rate 97 H 98 H 97 H Respiratory 25 H 25 H 25 H Rate Respiratory Rate [Abdomen] Blood Pressure 144/88 134/92 152/92 O2 Sat by Pulse 97 97 97 Oximetry 03/02/20 03/02/20 18:30 20:00 Temperature 100.4 F H Pulse Rate 98 H Respiratory 25 H Rate Respiratory Rate [Abdomen] Blood Pressure 153/95 O2 Sat by Pulse 98 Oximetry General appearance: Present: other (Intubated and sedated. Moans with abd pressure.) - Gastrointestinal General gastrointestinal: Present: tender (Mild diffuse), hypoactive bowel sounds - Labs CBC & Chem 7: 03/02/20 05:36 03/02/20 05:36 Labs: Abnormal lab results 02/26/20 03/01/20 03/01/20 Range/Units 04:39 18:30 23:37 WBC (4.5-11.0) K/mm3 RBC (3.65-5.03) M/mm3 Hgb (10.1-14.3) gm/dl Hct (30.3-42.9) % MCV (79-97) fl MCH (28-32) pg RDW (13.2-15.2) % Plt Count (140-440) K/mm3 Seg Neuts % (Manual) (40.0-70.0) % Lymphocytes % (Manual) (13.4-35.0) % Nucleated RBC % (0.0-0.9) % Seg Neutrophils # Man (1.8-7.7) K/mm3 Lymphocytes # (Manual) (1.2-5.4) K/mm3 POC ABG pCO2 (32.0-48.0) mmHg ABG Hemoglobin (12.0-17.5) Carbon Dioxide (22-30) mmol/L BUN (7-17) mg/dL Creatinine (0.6-1.2) mg/dL Glucose (65-100) mg/dL POC Glucose 125 H (70-105) Magnesium (1.7-2.3) mg/dL Albumin (3.9-5) g/dL ZINA Screen Positive H (Negative) Crossmatch See Detail 03/02/20 03/02/20 03/02/20 Range/Units 04:00 05:36 05:36 WBC 26.0 H (4.5-11.0) K/mm3 RBC 3.26 L (3.65-5.03) M/mm3 Hgb 7.8 L (10.1-14.3) gm/dl Hct 24.2 L (30.3-42.9) % MCV 74 L (79-97) fl MCH 24 L (28-32) pg RDW 21.3 H (13.2-15.2) % Plt Count 508 H (140-440) K/mm3 Seg Neuts % (Manual) 86.0 H (40.0-70.0) % Lymphocytes % (Manual) 4.0 L (13.4-35.0) % Nucleated RBC % 2.0 H (0.0-0.9) % Seg Neutrophils # Man 22.4 H (1.8-7.7) K/mm3 Lymphocytes # (Manual) 1.0 L (1.2-5.4) K/mm3 POC ABG pCO2 27.8 L (32.0-48.0) mmHg ABG Hemoglobin 8 L (12.0-17.5) Carbon Dioxide 17 L (22-30) mmol/L BUN 85 H (7-17) mg/dL Creatinine 5.6 H (0.6-1.2) mg/dL Glucose 109 H (65-100) mg/dL POC Glucose (70-105) Magnesium 2.50 H (1.7-2.3) mg/dL Albumin 2.3 L (3.9-5) g/dL ZINA Screen (Negative) Crossmatch Medications & Allergies - Medications Allergies/Adverse Reactions: Allergies No Known Allergies Allergy (Unverified 09/05/19 10:15) Home Medications: Home Medications Medication Instructions Recorded Confirmed Last Taken Type Amlodipine Besylate [Norvasc] 10 mg PO DAILY 09/05/19 02/24/20 09/04/19 History Furosemide [Lasix] 20 mg PO QDAY #30 tablet 09/05/19 02/24/20 Unknown Rx Lisinopril [Zestril] 5 mg PO DAILY #30 tablet 09/05/19 02/24/20 Unknown Rx Metoprolol [Lopressor TAB] 25 mg PO BID #60 tablet 09/05/19 02/24/20 Unknown Rx Active Medications: Generic Name Dose Route Start Last Admin Trade Name Freq PRN Reason Stop Dose Admin Acetaminophen 650 mg 02/26/20 16:23 02/26/20 16:37 Tylenol PO 650 mg Q4H PRN Administration Pain, Mild (1-3)/ Temp >100. Albuterol 2.5 mg 02/27/20 17:55 Proventil IH Q4HRT PRN Shortness Of Breath Albuterol/Ipratropium 1 ampul 02/28/20 12:17 03/02/20 20:40 Duoneb *Not For Prn Use* IH 1 ampul Q6HRT INDU Administration Amlodipine Besylate 10 mg 02/28/20 10:00 03/02/20 10:00 Amlodipine PO Not Given QDAY [facility] Lipase/Protease/Amylase 1 each 03/01/20 08:[address] 10,500 Unit FEEDTUBE PRN PRN For Clogged Feeding Tube Dextrose 50 ml 02/29/20 08:00 03/01/20 00:20 D50w (25gm) Syringe IV 10 ml Q30MIN PRN Administration HYPOGLYCEMIA Protocol Fentanyl 50 mcg 02/29/20 15:35 03/02/20 12:19 Sublimaze IV 50 mcg Q10MIN PRN Administration ANALGESIA Haloperidol Lactate 5 mg 02/28/20 11:30 02/28/20 11:51 Haldol IV 5 mg Q1H PRN Administration Unrespon. to mult. doses BZD's Heparin Sodium (Porcine) 5,000 unit 02/24/20 14:00 03/02/20 06:29 Heparin SUB-Q 5,000 unit Q8HR INDU Administration Hydralazine HCl 50 mg 02/28/20 14:00 03/02/20 15:01 Apresoline PO 50 mg Q8HR INDU Administration Hydrophilic Ointment 1 applic 02/29/20 15:35 Vaseline Lip Therapy TP Q2HR PRN Dry Lips Nicardipine HCl 50 mg/ Sodium 250 mls @ 25 mls/hr 02/24/20 07:00 02/28/20 12:51 Chloride IV 0 mg/hr TITR INDU 0 mls/hr Titration Protocol 5 MG/HR Piperacillin Sod/Tazobactam Sod 2.25 gm in 50 mls @ 100 mls/hr 02/26/20 18:30 03/02/20 19:32 Zosyn/Ns 2.25 Gm/50ml IV 100 mls/hr Q8H INDU Administration Protocol Fentanyl Citrate 2,000 mcg in 100 mls @ 4.55 mls/hr 02/29/20 16:00 03/02/20 09:40 Fentanyl Drip Premix IV 3 mcg/kg/hr TITR INDU 13.65 mls/hr Administration Protocol 1 MCG/KG/HR Midazolam HCl 100 mg/ Sodium 100 mls @ 2 mls/hr 02/29/20 16:00 03/02/20 15:35 Chloride IV 0 mg/hr TITR INDU 0 mls/hr Titration Protocol 2 MG/HR Propofol 1,000 mg in 100 mls @ 2.73 mls/hr 02/29/20 18:00 Diprivan 10 Mg/Ml IV TITR INDU Protocol 5 MCG/KG/MIN Sodium Bicarbonate 150 meq/ 1,150 mls @ 42 mls/hr 03/02/20 10:00 Dextrose IV DIRECT INDU Labetalol HCl 10 mg 02/28/20 09:00 Labetalol IV Q4H PRN Hypertension Lorazepam 1 mg 02/28/20 04:20 02/28/20 11:05 Ativan IV 1 mg Q4H PRN Administration Agitation Lorazepam 2 mg 02/28/20 11:30 02/29/20 11:43 Ativan IV 2 mg Q1H PRN Administration CIWA-Ar 8-15 Lorazepam 4 mg 02/28/20 11:30 02/29/20 16:19 Ativan IV 4 mg Q1H PRN Administration CIWA-Ar 16-25 Metoprolol Tartrate 25 mg 02/28/20 10:00 03/02/20 09:52 Metoprolol PO 25 mg BID INDU Administration Midazolam HCl 2 mg 02/29/20 15:35 02/29/20 17:00 Versed IV 2 mg Q10MIN PRN Administration Sedation Multi-Ingred Cream/Lotion/Oil/Oint 1 applic 02/29/20 15:35 Artificial Tears Ophth Oint OU Q4HR PRN Dry Eye(s) Ondansetron HCl 4 mg 02/24/20 06:45 02/25/20 23:33 Zofran IV 4 mg Q8H PRN Administration Nausea And Vomiting Pantoprazole Sodium 40 mg 02/24/20 13:00 03/02/20 09:51 Protonix IV 40 mg QDAY INDU Administration Simple Syrup 15 ml 03/01/20 08:46 Simple Syrup FEEDTUBE PRN PRN Hypoglycemia Simple Syrup 30 ml 03/01/20 08:46 Simple Syrup FEEDTUBE PRN PRN Hypoglycemia Sodium Bicarbonate 325 mg 03/01/20 08:46 Sodium Bicarbonate FEEDTUBE PRN PRN For Clogged Feeding Tube Sodium Bicarbonate 1,300 mg 03/01/20 16:43 03/02/20 19:54 Sodium Bicarbonate PO 1,300 mg TID INDU Administration Sodium Chloride 10 ml 02/24/20 10:00 03/02/20 09:51 Sodium Chloride Flush Syringe 10 Ml IV 10 ml BID INDU Administration Sodium Chloride 10 ml 02/24/20 06:45 Sodium Chloride Flush Syringe 10 Ml IV PRN PRN LINE FLUSH Tamsulosin HCl 0.4 mg 03/01/20 17:00 03/02/20 09:52 Flomax PO 0.4 mg QDAY INDU Administration
[2020-03-03] MEDS: PIPERACIL-TAZO 2.25 GM/50 ML 2.25 GM/50 ML BAG IV SCH ×2 (02:43→09:31)
[2020-03-03] MEDS: IPRATROPIUM/ALBUTEROL SULFATE 3 ML AMPUL.NEB IH SCH ×4 (03:55→20:11)
--- NOTE | 2020-03-03 04:42 | XRay Report ---
CHEST 1 VIEW 03/03/2020 3:32 AM INDICATION / CLINICAL INFORMATION: follow up respiratory failure. COMPARISON: 03/02/2020 FINDINGS: SUPPORT DEVICES: Stable, satisfactory device positioning. HEART / MEDIASTINUM: Stable. LUNGS / PLEURA: Stable bilateral perihilar opacities. No pneumothorax. ADDITIONAL FINDINGS: No significant additional findings. IMPRESSION: 1. No significant change. Signer Name: Chance Leon MD Signed: 03/03/2020 4:37 AM Workstation Name: [email or web address]
[2020-03-03 05:36] LABS: Hematocrit 25.3 % (30.3-42.9); Hemoglobin 8.1 gm/dl (10.1-14.3); Mean Corpuscular HGB Conc 32 % (30-34); Mean Corpuscular Volume 74 fl (79-97); Platelet Count 557 K/mm3 (140-440); Red Blood Count 3.41 M/mm3 (3.65-5.03)
[2020-03-03 05:44] LABS: Red Cell Distribution Width 20.8 % (13.2-15.2)
[2020-03-03 05:48] LABS: Albumin 2.4 g/dL (3.9-5); Calcium 9.4 mg/dL (8.4-10.2)
[2020-03-03] MEDS: fentaNYL DRIP Premix 2,000 MCG/100 ML BAG IV SCH ×3 (06:03→18:50)
[2020-03-03] MEDS: HEPARIN 5,000 UNIT/1 ML VIAL SUB-Q SCH ×4 (06:04→21:00)
[2020-03-03] MEDS: hydrALAZINE 25 MG TAB PO SCH ×3 (06:06→21:00)
[2020-03-03 06:37] LABS: Anisocytosis 1+; Band Neutrophils # (Manual) 1.7 K/mm3; Basophils % (Manual) 0 % (0.0-1.8); Hypochromasia 1+; Total Cells Counted 100
[2020-03-03 06:38] LABS: Ovalocytes Few; Platelet Estimate Consistent w Auto; Target Cells Few
--- NOTE | 2020-03-03 08:16 | Progress Note ---
Assessment and Plan Acute Hypoxemic Respiratory Failure on MVS Severe Sepsis Acute Toxic-Metabolic Encephalopathy Hypertensive urgency Morbid obesity Acute pancreatitis, abdominal pain Medical non compliance Oropharyngeal Dysphagia - HD/UF for toxin and volume clearance - daily SAT and SBT assessment as tolerated - continue current vent settings - continue fentanyl for sedation +/- propofol - continue care as below otherwise; - accuchecks with glycemic control per SSI (While critically ill target blood glucose of 140-180 mg/dL; avoid hypoglycemia) - sedation prn for target RASS -1 to -2 - continue to wean supplemental oxygen for target O2 sat's > 90% acutely - VAP bundle addressed - continue lung protective strategies - continue bronchodilators with pulmonary hygiene per RT - wean per pulmonary driven protocols otherwise - continue enteral nutritiuon at goal rate as tolerated - continue Zosyn; de-escalate per ID rec's - continue Nicardipine for her blood pressure management till taking orally (target BP < 160 mmHg) - JUANIS per organ grinder - prn bladder scans +/- straight cath in short term - Evaluation for sleep apnea as an outpatient - VTE prophylaxis - prn Analgesia per CPOT score - avoid nephrotoxins, renally dose all medications - Maintenance of sleep-wake cycle, avoid delirium - G.I. & VTE prophylaxis - PT/OT/ROM exercises - mobility protocols for pressure ulcer prophylaxis - Monitor hemodynamics closely - continue other care per attending / other consultants - discharge planning ongoing concurrently ..... re-evaluate in am & prn CONDITION: CRITICAL PROGNOSIS: GUARDED CODE STATUS: FULL CODE The high probability of a clinically significant, sudden or life-threatening deterioration of the [respiratory, cardiovascular & GI] system(s) required my full and direct attention, intervention and personal management. The aggregate critical care time was [32] minutes without overlap. Time includes spent on; [x] Data Review and interpretation [x] Patient assessment and monitoring of vital signs [x] Documentation [x] Medication orders and management Subjective Date of service: 03/03/20 Principal diagnosis: HTNsive urgency; Morbid obesity; Ac. pancreatitis; Abdominal pain Interval history: Patient is seen today for: Hypertensive urgency; Morbid obesity; Acute pancreatitis; abdominal pain; Medical non compliance; Acute Toxic Metabolic Encephalopathy Seen and examined at bedside; 24hour events reviewed; nursing and respiratory care staff consulted; no adverse overnight events reported to me; resting peacefully in bed; remains on MVS; for vascath today and to begin HD/UF; no emesis or overt aspiration; afebrile Objective Vital Signs - 12hr 03/02/20 03/02/20 03/02/20 20:30 20:41 20:45 Temperature Pulse Rate 109 H 103 H 102 H Pulse Rate [ 105 H Anterior Bilateral Throughout] Respiratory 25 H 25 H Rate Respiratory 25 H Rate [Anterior Bilateral Throughout] Blood Pressure 163/112 175/100 175/100 O2 Sat by Pulse 95 96 96 Oximetry 03/02/20 03/02/20 03/02/20 21:00 21:15 21:22 Temperature Pulse Rate 102 H 101 H 101 H Pulse Rate [ Anterior Bilateral Throughout] Respiratory 25 H 25 H Rate Respiratory Rate [Anterior Bilateral Throughout] Blood Pressure 166/98 168/101 168/101 O2 Sat by Pulse 96 97 Oximetry 03/02/20 03/02/20 03/02/20 21:23 21:30 21:45 Temperature Pulse Rate 102 H 101 H 95 H Pulse Rate [ Anterior Bilateral Throughout] Respiratory 25 H 25 H Rate Respiratory Rate [Anterior Bilateral Throughout] Blood Pressure 168/101 167/98 164/103 O2 Sat by Pulse 97 96 Oximetry 03/02/20 03/02/20 03/02/20 22:00 22:15 22:30 Temperature Pulse Rate 93 H 94 H 91 H Pulse Rate [ Anterior Bilateral Throughout] Respiratory 25 H 25 H 25 H Rate Respiratory Rate [Anterior Bilateral Throughout] Blood Pressure 147/87 143/87 150/86 O2 Sat by Pulse 96 96 97 Oximetry 03/02/20 03/02/20 03/02/20 22:45 23:00 23:15 Temperature Pulse Rate 92 H 91 H 90 Pulse Rate [ Anterior Bilateral Throughout] Respiratory 25 H 25 H 25 H Rate Respiratory Rate [Anterior Bilateral Throughout] Blood Pressure 144/87 143/87 146/89 O2 Sat by Pulse 97 97 98 Oximetry 03/02/20 03/02/20 03/03/20 23:30 23:45 00:00 Temperature 98.8 F Pulse Rate 92 H 95 H 94 H Pulse Rate [ Anterior Bilateral Throughout] Respiratory 25 H 25 H 25 H Rate Respiratory Rate [Anterior Bilateral Throughout] Blood Pressure 154/94 153/91 154/94 O2 Sat by Pulse 98 97 97 Oximetry 03/03/20 03/03/20 03/03/20 00:06 00:15 00:30 Temperature Pulse Rate 94 H 94 H 95 H Pulse Rate [ Anterior Bilateral Throughout] Respiratory 25 H 25 H Rate Respiratory Rate [Anterior Bilateral Throughout] Blood Pressure 154/94 155/93 156/99 O2 Sat by Pulse 97 97 97 Oximetry 03/03/20 03/03/20 03/03/20 00:45 01:00 01:15 Temperature Pulse Rate 94 H 96 H 95 H Pulse Rate [ Anterior Bilateral Throughout] Respiratory 25 H 25 H 25 H Rate Respiratory Rate [Anterior Bilateral Throughout] Blood Pressure 151/92 161/96 155/91 O2 Sat by Pulse 97 97 98 Oximetry 03/03/20 03/03/20 03/03/20 01:30 01:45 02:00 Temperature Pulse Rate 95 H 94 H 96 H Pulse Rate [ Anterior Bilateral Throughout] Respiratory 25 H 25 H 25 H Rate Respiratory Rate [Anterior Bilateral Throughout] Blood Pressure 157/93 156/96 162/96 O2 Sat by Pulse 98 98 98 Oximetry 03/03/20 03/03/20 03/03/20 02:15 02:30 02:45 Temperature Pulse Rate 93 H 93 H 96 H Pulse Rate [ Anterior Bilateral Throughout] Respiratory 25 H 25 H 25 H Rate Respiratory Rate [Anterior Bilateral Throughout] Blood Pressure 151/93 155/92 175/106 O2 Sat by Pulse 98 98 97 Oximetry 03/03/20 03/03/20 03/03/20 03:00 03:15 03:30 Temperature 100.7 F H Pulse Rate 95 H 94 H 92 H Pulse Rate [ Anterior Bilateral Throughout] Respiratory 25 H 25 H 25 H Rate Respiratory Rate [Anterior Bilateral Throughout] Blood Pressure 166/95 164/96 157/96 O2 Sat by Pulse 98 98 98 Oximetry 03/03/20 03/03/20 03/03/20 03:45 04:00 04:15 Temperature Pulse Rate 99 H 93 H 93 H Pulse Rate [ Anterior Bilateral Throughout] Respiratory 25 H 25 H 25 H Rate Respiratory Rate [Anterior Bilateral Throughout] Blood Pressure 172/104 154/96 155/96 O2 Sat by Pulse 98 99 98 Oximetry 03/03/20 03/03/20 03/03/20 04:30 04:44 04:45 Temperature Pulse Rate 93 H 93 H 93 H Pulse Rate [ 93 H Anterior Bilateral Throughout] Respiratory 26 H 25 H Rate Respiratory 25 H Rate [Anterior Bilateral Throughout] Blood Pressure 151/93 142/82 142/82 O2 Sat by Pulse 98 98 98 Oximetry 03/03/20 03/03/20 03/03/20 05:00 05:15 05:30 Temperature Pulse Rate 93 H 94 H 99 H Pulse Rate [ Anterior Bilateral Throughout] Respiratory 25 H 25 H 25 H Rate Respiratory Rate [Anterior Bilateral Throughout] Blood Pressure 146/87 147/84 147/84 O2 Sat by Pulse 98 98 97 Oximetry 03/03/20 03/03/20 03/03/20 05:46 06:00 06:15 Temperature Pulse Rate 107 H 98 H 97 H Pulse Rate [ Anterior Bilateral Throughout] Respiratory 25 H 25 H 25 H Rate Respiratory Rate [Anterior Bilateral Throughout] Blood Pressure 168/100 156/105 175/97 O2 Sat by Pulse 98 98 Oximetry 03/03/20 03/03/20 03/03/20 06:30 06:45 07:00 Temperature Pulse Rate 98 H 99 H 100 H Pulse Rate [ Anterior Bilateral Throughout] Respiratory 25 H 25 H 25 H Rate Respiratory Rate [Anterior Bilateral Throughout] Blood Pressure 175/97 158/86 152/90 O2 Sat by Pulse 98 98 99 Oximetry 03/03/20 03/03/20 03/03/20 07:15 07:30 07:38 Temperature Pulse Rate 100 H 96 H 111 H Pulse Rate [ Anterior Bilateral Throughout] Respiratory 25 H 25 H Rate Respiratory Rate [Anterior Bilateral Throughout] Blood Pressure 158/96 149/87 O2 Sat by Pulse 99 99 Oximetry 03/03/20 03/03/20 07:52 08:05 Temperature Pulse Rate 111 H Pulse Rate [ 95 H Anterior Bilateral Throughout] Respiratory 16 Rate Respiratory 16 Rate [Anterior Bilateral Throughout] Blood Pressure 149/87 O2 Sat by Pulse 99 Oximetry Constitutional: no acute distress, other (Obese female with mildly increased respiratory effort at rest on MVS) Eyes: non-icteric ENT: oropharynx moist, other (ETT 24 cm TY) Neck: supple, no lymphadenopathy, no JVD Effort: normal Ascultation: Bilateral: diminished breath sounds (at the bases), rhonchi (scant) Percussion: Bilateral: not dull Cardiovascular: regular rate and rhythm, other (S1,S2) Gastrointestinal: normoactive bowel sounds, hypoactive bowel sounds, soft, non- tender, other (distended but soft) Integumentary: normal Extremities: no cyanosis, no edema, pink and warm, pulses normal Neurologic: normal mental status, non-focal exam (grossly), pupils equal and round, CN II-XII normal, motor strength normal and Psychiatric: mood appropriate, affect normal CBC and BMP: 03/04/20 04:05 03/04/20 04:05 ABG, PT/INR, D-dimer: ABG ABG pH 7.364 (7.320-7.450) 03/03/20 04:00 POC ABG pCO2 31.8 mmHg (32.0-48.0) L 03/03/20 04:00 ABG pCO2 29.4 mm Hg 03/01/20 04:05 POC ABG pO2 83.1 mmHg (83-108) 03/03/20 04:00 ABG pO2 133.5 mm Hg (80.0-90.0) H 03/01/20 04:05 POC ABG HCO3 17.7 03/03/20 04:00 ABG O2 Saturation 98.6 % (95.0-99.0) 03/01/20 04:05 PT/INR, D-dimer PT 13.7 Sec. (12.2-14.9) 02/25/20 03:49 INR 1.03 (0.87-1.13) 02/25/20 03:49 Abnormal lab findings: Abnormal Labs 02/24/20 02/24/20 02/24/20 02:53 02:53 Unknown WBC 12.7 H Hgb 10.0 L RBC Hct MCV 70 L MCH 22 L RDW 17.9 H Plt Count 458 H Lymph % (Auto) 8.9 L Lymph # 1.1 L [place] # Seg Neutrophils % 84.2 H Seg Neutrophils # 10.7 H Seg Neuts % (Manual) Lymphocytes % (Manual) Nucleated RBC % Seg Neutrophils # Man Lymphocytes # (Manual) Monocytes # (Manual) ABG pH POC ABG pCO2 POC ABG pO2 ABG pO2 ABG HCO3 ABG O2 Saturation ABG Base Excess ABG Hemoglobin ABG Oxyhemoglobin Oxyhemoglobin Sodium Potassium Chloride Carbon Dioxide BUN 27 H Creatinine 1.7 H Glucose 118 H POC Glucose Calcium Phosphorus Magnesium Direct Bilirubin Albumin C-Reactive Protein Vcyjy-9-Pccvwlvou PEP Interpretation Lipase 232 H PTH Intact Urine WBC (Auto) 11.0 H Urine Creatinine Urine Total Protein ZINA Screen Crossmatch 02/25/20 02/25/20 02/25/20 00:03 03:49 03:49 WBC 29.1 H Hgb 9.4 L RBC Hct 30.2 L MCV 71 L MCH 22 L RDW 18.3 H Plt Count 525 H Lymph % (Auto) 3.4 L Lymph # 1.0 L [place] # 1.0 H Seg Neutrophils % Seg Neutrophils # 26.4 H Seg Neuts % (Manual) Lymphocytes % (Manual) Nucleated RBC % Seg Neutrophils # Man Lymphocytes # (Manual) Monocytes # (Manual) ABG pH POC ABG pCO2 POC ABG pO2 ABG pO2 ABG HCO3 ABG O2 Saturation ABG Base Excess ABG Hemoglobin ABG Oxyhemoglobin Oxyhemoglobin Sodium Potassium Chloride Carbon Dioxide BUN Creatinine Glucose POC Glucose 126 H Calcium Phosphorus Magnesium Direct Bilirubin Albumin C-Reactive Protein Hcvvw-9-Qmisnzhiz PEP Interpretation Lipase 1486 H PTH Intact Urine WBC (Auto) Urine Creatinine Urine Total Protein ZINA Screen Crossmatch 02/25/20 02/25/20 02/25/20 03:49 05:55 22:55 WBC Hgb RBC Hct MCV MCH RDW Plt Count Lymph % (Auto) Lymph # [place] # Seg Neutrophils % Seg Neutrophils # Seg Neuts % (Manual) Lymphocytes % (Manual) Nucleated RBC % Seg Neutrophils # Man Lymphocytes # (Manual) Monocytes # (Manual) ABG pH POC ABG pCO2 POC ABG pO2 ABG pO2 ABG HCO3 ABG O2 Saturation ABG Base Excess ABG Hemoglobin ABG Oxyhemoglobin Oxyhemoglobin Sodium 136 L Potassium Chloride 97.9 L Carbon Dioxide 21 L BUN 39 H Creatinine 3.0 H D Glucose 118 H POC Glucose 124 H Calcium Phosphorus Magnesium Direct Bilirubin Albumin 3.6 L C-Reactive Protein Phnxj-6-Bdithrpyw PEP Interpretation Lipase PTH Intact Urine WBC (Auto) Urine Creatinine 161.0 H Urine Total Protein 150 H ZINA Screen Crossmatch 02/26/20 02/26/20 02/26/20 04:39 04:39 04:39 WBC 30.3 H Hgb 9.1 L RBC Hct 29.8 L MCV 71 L MCH 22 L RDW 18.2 H Plt Count 530 H Lymph % (Auto) Lymph # [place] # Seg Neutrophils % Seg Neutrophils # Seg Neuts % (Manual) Lymphocytes % (Manual) Nucleated RBC % Seg Neutrophils # Man Lymphocytes # (Manual) Monocytes # (Manual) ABG pH POC ABG pCO2 POC ABG pO2 ABG pO2 ABG HCO3 ABG O2 Saturation ABG Base Excess ABG Hemoglobin ABG Oxyhemoglobin Oxyhemoglobin Sodium Potassium Chloride Carbon Dioxide 19 L BUN 44 H Creatinine 3.1 H Glucose 106 H POC Glucose Calcium 8.1 L Phosphorus Magnesium Direct Bilirubin Albumin C-Reactive Protein Ccraa-2-Zxqnmttyi PEP Interpretation Lipase 540 H PTH Intact Urine WBC (Auto) Urine Creatinine Urine Total Protein ZINA Screen Positive H Crossmatch 02/26/20 02/26/20 02/26/20 04:39 08:15 12:14 WBC Hgb RBC Hct MCV MCH RDW Plt Count Lymph % (Auto) Lymph # [place] # Seg Neutrophils % Seg Neutrophils # Seg Neuts % (Manual) Lymphocytes % (Manual) Nucleated RBC % Seg Neutrophils # Man Lymphocytes # (Manual) Monocytes # (Manual) ABG pH POC ABG pCO2 POC ABG pO2 ABG pO2 ABG HCO3 ABG O2 Saturation ABG Base Excess ABG Hemoglobin ABG Oxyhemoglobin Oxyhemoglobin Sodium Potassium Chloride Carbon Dioxide BUN Creatinine Glucose POC Glucose 112 H Calcium Phosphorus Magnesium Direct Bilirubin Albumin 2.8 L C-Reactive Protein Eczgr-2-Ykncmkyca 0.7 H PEP Interpretation see below H Lipase PTH Intact 911.3 H Urine WBC (Auto) Urine Creatinine Urine Total Protein ZINA Screen Crossmatch 02/27/20 02/27/20 02/27/20 04:18 04:18 04:18 WBC 26.8 H Hgb 7.9 L RBC Hct 26.3 L MCV 70 L MCH 21 L RDW 18.0 H Plt Count 513 H Lymph % (Auto) Lymph # [place] # Seg Neutrophils % Seg Neutrophils # Seg Neuts % (Manual) Lymphocytes % (Manual) Nucleated RBC % Seg Neutrophils # Man Lymphocytes # (Manual) Monocytes # (Manual) ABG pH POC ABG pCO2 POC ABG pO2 ABG pO2 ABG HCO3 ABG O2 Saturation ABG Base Excess ABG Hemoglobin ABG Oxyhemoglobin Oxyhemoglobin Sodium 135 L 135 L Potassium Chloride Carbon Dioxide 15 L 16 L BUN 50 H 51 H Creatinine 3.4 H 3.4 H Glucose POC Glucose Calcium 7.4 L 7.5 L Phosphorus Magnesium Direct Bilirubin Albumin 3.0 L C-Reactive Protein 37.30 H Gecdc-4-Udmzutvoh PEP Interpretation Lipase 177 H PTH Intact Urine WBC (Auto) Urine Creatinine Urine Total Protein ZINA Screen Crossmatch 02/27/20 02/28/20 02/28/20 16:57 05:07 05:07 WBC Hgb RBC Hct MCV MCH RDW Plt Count Lymph % (Auto) Lymph # [place] # Seg Neutrophils % Seg Neutrophils # Seg Neuts % (Manual) Lymphocytes % (Manual) Nucleated RBC % Seg Neutrophils # Man Lymphocytes # (Manual) Monocytes # (Manual) ABG pH 7.336 L POC ABG pCO2 POC ABG pO2 ABG pO2 57.0 L ABG HCO3 16.4 L ABG O2 Saturation 88.2 L ABG Base Excess -8.4 L ABG Hemoglobin 10.4 L ABG Oxyhemoglobin Oxyhemoglobin 85.7 L Sodium Potassium Chloride Carbon Dioxide 14 L BUN 60 H Creatinine 4.2 H Glucose POC Glucose Calcium 8.2 L Phosphorus Magnesium Direct Bilirubin Albumin C-Reactive Protein Csrsw-2-Wtjhfknwr PEP Interpretation Lipase 155 H PTH Intact Urine WBC (Auto) Urine Creatinine Urine Total Protein ZINA Screen Crossmatch 02/28/20 02/28/20 02/28/20 05:56 11:05 11:05 WBC Hgb RBC Hct MCV MCH RDW Plt Count Lymph % (Auto) Lymph # [place] # Seg Neutrophils % Seg Neutrophils # Seg Neuts % (Manual) Lymphocytes % (Manual) Nucleated RBC % Seg Neutrophils # Man Lymphocytes # (Manual) Monocytes # (Manual) ABG pH 7.317 L POC ABG pCO2 POC ABG pO2 76.2 L ABG pO2 ABG HCO3 16.4 L ABG O2 Saturation ABG Base Excess -8.9 L ABG Hemoglobin 6.6 L 7.6 L ABG Oxyhemoglobin Oxyhemoglobin 94.6 L Sodium Potassium Chloride Carbon Dioxide BUN Creatinine Glucose POC Glucose 115 H Calcium Phosphorus Magnesium Direct Bilirubin Albumin C-Reactive Protein Chbwr-8-Jbykmdjnq PEP Interpretation Lipase PTH Intact Urine WBC (Auto) Urine Creatinine Urine Total Protein ZINA Screen Crossmatch 02/28/20 02/28/20 02/29/20 17:39 19:39 05:43 WBC Hgb RBC Hct MCV MCH RDW Plt Count Lymph % (Auto) Lymph # [place] # Seg Neutrophils % Seg Neutrophils # Seg Neuts % (Manual) Lymphocytes % (Manual) Nucleated RBC % Seg Neutrophils # Man Lymphocytes # (Manual) Monocytes # (Manual) ABG pH 7.300 L POC ABG pCO2 POC ABG pO2 ABG pO2 117.5 H ABG HCO3 15.0 L ABG O2 Saturation ABG Base Excess -10.5 L ABG Hemoglobin 6.4 L ABG Oxyhemoglobin Oxyhemoglobin Sodium Potassium Chloride Carbon Dioxide BUN Creatinine Glucose POC Glucose 120 H 66 L Calcium Phosphorus Magnesium Direct Bilirubin Albumin C-Reactive Protein Tvkeb-1-Nasasmpry PEP Interpretation Lipase PTH Intact Urine WBC (Auto) Urine Creatinine Urine Total Protein ZINA Screen Crossmatch 02/29/20 02/29/20 02/29/20 05:45 12:04 12:31 WBC Hgb RBC Hct MCV MCH RDW Plt Count Lymph % (Auto) Lymph # [place] # Seg Neutrophils % Seg Neutrophils # Seg Neuts % (Manual) Lymphocytes % (Manual) Nucleated RBC % Seg Neutrophils # Man Lymphocytes # (Manual) Monocytes # (Manual) ABG pH 7.212 L POC ABG pCO2 POC ABG pO2 ABG pO2 ABG HCO3 ABG O2 Saturation ABG Base Excess ABG Hemoglobin 7.4 L ABG Oxyhemoglobin Oxyhemoglobin Sodium Potassium Chloride Carbon Dioxide BUN Creatinine Glucose POC Glucose 65 L 64 L Calcium Phosphorus Magnesium Direct Bilirubin Albumin C-Reactive Protein Njnaw-9-Iejcrttqs PEP Interpretation Lipase PTH Intact Urine WBC (Auto) Urine Creatinine Urine Total Protein ZINA Screen Crossmatch 02/29/20 02/29/20 02/29/20 14:22 14:22 18:20 WBC Hgb RBC Hct MCV MCH RDW Plt Count Lymph % (Auto) Lymph # [place] # Seg Neutrophils % Seg Neutrophils # Seg Neuts % (Manual) Lymphocytes % (Manual) Nucleated RBC % Seg Neutrophils # Man Lymphocytes # (Manual) Monocytes # (Manual) ABG pH POC ABG pCO2 POC ABG pO2 ABG pO2 ABG HCO3 ABG O2 Saturation ABG Base Excess ABG Hemoglobin ABG Oxyhemoglobin Oxyhemoglobin Sodium Potassium Chloride Carbon Dioxide 16 L BUN 77 H Creatinine 4.7 H Glucose POC Glucose 66 L Calcium Phosphorus 7.50 H Magnesium 2.60 H Direct Bilirubin Albumin 2.3 L C-Reactive Protein Kllwi-4-Xkxocxsub PEP Interpretation Lipase PTH Intact Urine WBC (Auto) Urine Creatinine Urine Total Protein ZINA Screen Crossmatch 02/29/20 03/01/20 03/01/20 18:24 04:05 04:37 WBC Hgb RBC Hct MCV MCH RDW Plt Count Lymph % (Auto) Lymph # [place] # Seg Neutrophils % Seg Neutrophils # Seg Neuts % (Manual) Lymphocytes % (Manual) Nucleated RBC % Seg Neutrophils # Man Lymphocytes # (Manual) Monocytes # (Manual) ABG pH 7.271 L 7.347 L POC ABG pCO2 POC ABG pO2 ABG pO2 133.5 H ABG HCO3 15.8 L ABG O2 Saturation ABG Base Excess -8.9 L ABG Hemoglobin 7.2 L 7.6 L ABG Oxyhemoglobin 93.4 L Oxyhemoglobin Sodium Potassium Chloride 107.6 H Carbon Dioxide 14 L BUN 83 H Creatinine 5.6 H Glucose POC Glucose Calcium Phosphorus 6.10 H Magnesium 2.40 H Direct Bilirubin Albumin C-Reactive Protein Upsjy-1-Grusrnwvp PEP Interpretation Lipase PTH Intact Urine WBC (Auto) Urine Creatinine Urine Total Protein ZINA Screen Crossmatch 03/01/20 03/01/20 03/01/20 11:06 16:22 18:12 WBC 30.5 H Hgb 6.2 L RBC 2.92 L Hct 20.8 L MCV 71 L MCH 21 L RDW 18.2 H Plt Count 560 H Lymph % (Auto) Lymph # [place] # Seg Neutrophils % Seg Neutrophils # Seg Neuts % (Manual) 79.0 H Lymphocytes % (Manual) 3.0 L Nucleated RBC % Seg Neutrophils # Man 24.1 H Lymphocytes # (Manual) 0.9 L Monocytes # (Manual) 2.1 H ABG pH POC ABG pCO2 POC ABG pO2 ABG pO2 ABG HCO3 ABG O2 Saturation ABG Base Excess ABG Hemoglobin ABG Oxyhemoglobin Oxyhemoglobin Sodium Potassium 5.3 H D Chloride Carbon Dioxide 11 L BUN 77 H Creatinine 5.0 H Glucose 54 L POC Glucose 121 H Calcium Phosphorus Magnesium Direct Bilirubin Albumin 3.0 L C-Reactive Protein 36.50 H Xjmbh-4-Cblxatkek PEP Interpretation Lipase PTH Intact Urine WBC (Auto) Urine Creatinine Urine Total Protein ZINA Screen Crossmatch 03/01/20 03/01/20 03/01/20 18:30 23:37 Unknown WBC Hgb RBC Hct MCV MCH RDW Plt Count Lymph % (Auto) Lymph # [place] # Seg Neutrophils % Seg Neutrophils # Seg Neuts % (Manual) Lymphocytes % (Manual) Nucleated RBC % Seg Neutrophils # Man Lymphocytes # (Manual) Monocytes # (Manual) ABG pH POC ABG pCO2 POC ABG pO2 ABG pO2 ABG HCO3 ABG O2 Saturation ABG Base Excess ABG Hemoglobin ABG Oxyhemoglobin Oxyhemoglobin Sodium Potassium Chloride Carbon Dioxide BUN Creatinine Glucose POC Glucose 125 H Calcium Phosphorus Magnesium Direct Bilirubin Albumin C-Reactive Protein Egfdc-5-Mrrbnugfb PEP Interpretation Lipase 297 H PTH Intact Urine WBC (Auto) Urine Creatinine Urine Total Protein ZINA Screen Crossmatch See Detail 03/02/20 03/02/20 03/02/20 04:00 05:36 05:36 WBC 26.0 H Hgb 7.8 L RBC 3.26 L Hct 24.2 L MCV 74 L MCH 24 L RDW 21.3 H Plt Count 508 H Lymph % (Auto) Lymph # [place] # Seg Neutrophils % Seg Neutrophils # Seg Neuts % (Manual) 86.0 H Lymphocytes % (Manual) 4.0 L Nucleated RBC % 2.0 H Seg Neutrophils # Man 22.4 H Lymphocytes # (Manual) 1.0 L Monocytes # (Manual) ABG pH POC ABG pCO2 27.8 L POC ABG pO2 ABG pO2 ABG HCO3 ABG O2 Saturation ABG Base Excess ABG Hemoglobin 8 L ABG Oxyhemoglobin Oxyhemoglobin Sodium Potassium Chloride Carbon Dioxide 17 L BUN 85 H Creatinine 5.6 H Glucose 109 H POC Glucose Calcium Phosphorus Magnesium 2.50 H Direct Bilirubin Albumin 2.3 L C-Reactive Protein Unlnz-0-Rwvvbttnd PEP Interpretation Lipase PTH Intact Urine WBC (Auto) Urine Creatinine Urine Total Protein ZINA Screen Crossmatch 03/03/20 03/03/20 03/03/20 04:00 04:36 04:36 WBC Hgb RBC Hct MCV MCH RDW Plt Count Lymph % (Auto) Lymph # [place] # Seg Neutrophils % Seg Neutrophils # Seg Neuts % (Manual) Lymphocytes % (Manual) Nucleated RBC % Seg Neutrophils # Man Lymphocytes # (Manual) Monocytes # (Manual) ABG pH POC ABG pCO2 31.8 L POC ABG pO2 ABG pO2 ABG HCO3 ABG O2 Saturation ABG Base Excess ABG Hemoglobin 8.6 L ABG Oxyhemoglobin Oxyhemoglobin Sodium 147 H Potassium Chloride 108.4 H Carbon Dioxide 16 L BUN 87 H Creatinine 6.2 H Glucose POC Glucose Calcium Phosphorus Magnesium 2.50 H Direct Bilirubin 1.0 H Albumin 2.4 L C-Reactive Protein Lnsxz-5-Whoujotfc PEP Interpretation Lipase 119 H PTH Intact Urine WBC (Auto) Urine Creatinine Urine Total Protein ZINA Screen Crossmatch 03/03/20 04:36 WBC 28.0 H Hgb 8.1 L RBC 3.41 L Hct 25.3 L MCV 74 L MCH 24 L RDW 20.8 H Plt Count 557 H Lymph % (Auto) Lymph # [place] # Seg Neutrophils % Seg Neutrophils # Seg Neuts % (Manual) 82.0 H Lymphocytes % (Manual) 4.0 L Nucleated RBC % Seg Neutrophils # Man 23.0 H Lymphocytes # (Manual) 1.1 L Monocytes # (Manual) 2.0 H ABG pH POC ABG pCO2 POC ABG pO2 ABG pO2 ABG HCO3 ABG O2 Saturation ABG Base Excess ABG Hemoglobin ABG Oxyhemoglobin Oxyhemoglobin Sodium Potassium Chloride Carbon Dioxide BUN Creatinine Glucose POC Glucose Calcium Phosphorus Magnesium Direct Bilirubin Albumin C-Reactive Protein Xmtmt-1-Vwodevphd PEP Interpretation Lipase PTH Intact Urine WBC (Auto) Urine Creatinine Urine Total Protein ZINA Screen Crossmatch Chest x-ray: image reviewed (LLL partial atelectasis; RLL infiltrate) Allied health notes reviewed: nursing
--- NOTE | 2020-03-03 08:32 | Progress Note ---
Assessment and Plan Assessment and plan: --JUANIS/worsening renal function[cr 5.6-6.2] Current Visit: Yes Status: Acute Plan to address problem: Worsening renal function, avoid nephrotoxins Nephrology following, if no improvement consider hemodialysis Patient has fluid overload generalized anasarca on CT abdomen --Acute hypoxic respiratory failure; intubated /mechanical ventilation Current Visit: Yes Status: Acute Plan to address problem: Secondary to pancreatitis, lung infiltrate, possible ARDS Nebulizers, supportive care Pulmonary critical following Wean as tolerated and extubate --Severe sepsis secondary to pneumonia ; Current Visit: Yes Status: Acute Plan to address problem: Worsening bibasilar opacities on chest x-ray leukocytosis, tachycardia, tachypnea, fever, infiltrate on chest x-ray. Continue Zosyn, follow cultures, ID following -- Acute pancreatitis/worsening lipase[[id number] today] Current Visit: Yes Status: Acute Plan to address problem: Mild improvement of symptoms Worsening lipase levels Lipase [phone] IV fluid and IV pain medication. Management per GI Hepatitis panel negative Repeat CT abdomen and pelvis 03/01/2020 Interval worsening of acute pancreatitis with increased jessica-pancreatic fat stranding and disorganized fluid Increased intraperitoneal edema simple free fluid collection in the pelvis Local inflammatory changes involving stomach small bowel and bilateral kidneys Interval development of bilateral pleural effusions and associated compressive atelectasis Interval development of diffuse body wall anasarca --Anemia; Current Visit: Yes Status: Acute Plan to address problem: monitor H&H and transfuse as needed. --Severe metabolic encephalopathy/AMS Current Visit: Yes Status: Acute Plan to address problem: Probably secondary alcohol withdrawal symptoms Treat the underlying cause,[facility] protocol, supportive care --Possible alcohol withdrawal symptoms; Current Visit: Yes Status: Acute Plan to address problem: Discussed with GI Dr. De La Rosa , agree with [place] closely monitor , Ativan as needed Continue [facility] protocol --Worsening leukocytosis Current Visit: Yes Status: Acute Plan to address problem: Secondary to sepsis due to bibasilar pneumonia, acute pancreatitis, ID and GI following -- Hypertensive emergency Current Visit: Yes Status: Acute Plan to address problem: s/p Cardene drip, closely monitor BP well controlled oral antihypertensives IV antihypertensives, PRN --Severe metabolic acidosis; Current Visit: Yes Status: Acute Plan to address problem: Management per nephrology --Medical noncompliance Current Visit: Yes Status: Acute Plan to address problem: Patient was counseled upon admission -- DVT prophylaxis Current Visit: Yes Status: Acute Plan to address problem: Patient placed on subcutaneous heparin. --Obesity; BMI 37.9 Current Visit: Yes Status: Acute Plan to address problem: patient needs weight reduction when medically stable. -- Full code status Current Visit: Yes Status: Acute Follow GI and pulmonary evaluation and recommendations We will closely monitor the patient and adjust the management as needed Closely monitor the patient and adjust management as needed. Patient is critically ill with multiple medical problems Prognosis poor, family aware The high probability of a clinically significant, sudden or life threatening deterioration of the [GI, CVS, renal, respiratory and metabolic] system(s) required my full and direct attention, intervention and personal management. The aggregate critical care time was [35] minutes. This time is in addition to time spent performing reported procedures but includes the following: [x] Data Review and interpretation [x] Patient assessment and monitoring of vital signs [x] Documentation [x] Medication orders and management 03/03; patient had worsening renal function, considering Vas-Cath placement and initiating hemodialysis Patient is critically ill with multiple organ involvement, family aware History Interval history: Have seen and examined the patient at the bedside this morning Patient's chart and medications reviewed Patient remains intubated on ventilatory support Critically ill, Worsening renal function Vital signs noted Hospitalist Physical - Constitutional Vitals: Temp Pulse Resp BP Pulse Ox 100.7 F H 95 H 16 149/87 99 03/03/20 03:30 03/03/20 08:05 03/03/20 08:05 03/03/20 07:52 03/03/20 07:52 General appearance: Present: no acute distress, severe distress, well-nourished, other (Intubated and sedated. Moans with abd pressure.) - EENT Eyes: Present: PERRL, EOM intact - Neck Neck: Present: supple, normal ROM - Respiratory Respiratory effort: normal Respiratory: bilateral: diminished, rhonchi, negative: rales, wheezing - Cardiovascular Rhythm: regular Heart Sounds: Present: S1 & S2 - Extremities Extremities: no ischemia Extremity abnormal: edema - Abdominal General gastrointestinal: soft, non-tender, hypoactive bowel sounds - Integumentary Integumentary: Present: clear, warm - Psychiatric Psychiatric: other (Intubated on ventilatory support) - Neurologic Neurologic: other (Intubated on ventilatory support) Results - Labs CBC & Chem 7: 03/03/20 04:36 03/03/20 04:36 Labs: Laboratory Last Values WBC 28.0 K/mm3 (4.5-11.0) H 03/03/20 04:36 RBC 3.41 M/mm3 (3.65-5.03) L 03/03/20 04:36 Hgb 8.1 gm/dl (10.1-14.3) L 03/03/20 04:36 Hct 25.3 % (30.3-42.9) L 03/03/20 04:36 MCV 74 fl (79-97) L 03/03/20 04:36 MCH 24 pg (28-32) L 03/03/20 04:36 MCHC 32 % (30-34) 03/03/20 04:36 RDW 20.8 % (13.2-15.2) H 03/03/20 04:36 Plt Count 557 K/mm3 (140-440) H 03/03/20 04:36 Lymph % (Auto) 3.4 % (13.4-35.0) L 02/25/20 03:49 [place] % (Auto) 5.5 % (0.0-7.3) 02/25/20 03:49 Eos % (Auto) 0.1 % (0.0-4.3) 02/25/20 03:49 Baso % (Auto) 0.2 % (0.0-1.8) 02/25/20 03:49 Lymph # 1.0 K/mm3 (1.2-5.4) L 02/25/20 03:49 [place] # 1.0 K/mm3 (0.0-0.8) H 02/25/20 03:49 Eos # 0.0 K/mm3 (0.0-0.4) 02/25/20 03:49 Baso # 0.1 K/mm3 (0.0-0.1) 02/25/20 03:49 Seg Neutrophils % [employer] 02/25/20 03:49 Add Manual Diff Complete 03/03/20 04:36 Total Counted 100 03/03/20 04:36 Seg Neutrophils # 26.4 K/mm3 (1.8-7.7) H 02/25/20 03:49 Seg Neuts % (Manual) 82.0 % (40.0-70.0) H 03/03/20 04:36 Band Neutrophils % 6.0 % 03/03/20 04:36 Lymphocytes % (Manual) 4.0 % (13.4-35.0) L 03/03/20 04:36 Reactive Lymphs % (Man) 0 % 03/03/20 04:36 Monocytes % (Manual) 7.0 % (0.0-7.3) 03/03/20 04:36 Eosinophils % (Manual) 1.0 % (0.0-4.3) 03/03/20 04:36 Basophils % (Manual) 0 % (0.0-1.8) 03/03/20 04:36 Metamyelocytes % 0 % 03/03/20 04:36 Myelocytes % 0 % 03/03/20 04:36 Promyelocytes % 0 % 03/03/20 04:36 Blast Cells % 0 % 03/03/20 04:36 Nucleated RBC % Not Reportable 03/03/20 04:36 Seg Neutrophils # Man 23.0 K/mm3 (1.8-7.7) H 03/03/20 04:36 Band Neutrophils # 1.7 K/mm3 03/03/20 04:36 Lymphocytes # (Manual) 1.1 K/mm3 (1.2-5.4) L 03/03/20 04:36 Abs React Lymphs (Man) 0.0 K/mm3 03/03/20 04:36 Monocytes # (Manual) 2.0 K/mm3 (0.0-0.8) H 03/03/20 04:36 Eosinophils # (Manual) 0.3 K/mm3 (0.0-0.4) 03/03/20 04:36 Basophils # (Manual) 0.0 K/mm3 (0.0-0.1) 03/03/20 04:36 Metamyelocytes # 0.0 K/mm3 03/03/20 04:36 Myelocytes # 0.0 K/mm3 03/03/20 04:36 Promyelocytes # 0.0 K/mm3 03/03/20 04:36 Blast Cells # 0.0 K/mm3 03/03/20 04:36 WBC Morphology Not Reportable 03/03/20 04:36 Hypersegmented Neuts Not Reportable 03/03/20 04:36 Hyposegmented Neuts Not Reportable 03/03/20 04:36 Hypogranular Neuts Not Reportable 03/03/20 04:36 Smudge Cells Not Reportable 03/03/20 04:36 Toxic Granulation Not Reportable 03/03/20 04:36 Toxic Vacuolation Not Reportable 03/03/20 04:36 Dohle Bodies Not Reportable 03/03/20 04:36 Pelger-Huet Anomaly Not Reportable 03/03/20 04:36 Maia Rods Not Reportable 03/03/20 04:36 Platelet Estimate Consistent w auto 03/03/20 04:36 Clumped Platelets Not Reportable 03/03/20 04:36 Plt Clumps, EDTA Not Reportable 03/03/20 04:36 Large Platelets Not Reportable 03/03/20 04:36 Giant Platelets Not Reportable 03/03/20 04:36 Platelet Satelliting Not Reportable 03/03/20 04:36 Plt Morphology Comment Not Reportable 03/03/20 04:36 RBC Morphology Not Reportable 03/03/20 04:36 Dimorphic RBCs Not Reportable 03/03/20 04:36 Polychromasia Few 03/03/20 04:36 Hypochromasia 1+ 03/03/20 04:36 Poikilocytosis Not Reportable 03/03/20 04:36 Anisocytosis 1+ 03/03/20 04:36 Microcytosis Not Reportable 03/03/20 04:36 Macrocytosis Not Reportable 03/03/20 04:36 Spherocytes Not Reportable 03/03/20 04:36 Pappenheimer Bodies Not Reportable 03/03/20 04:36 Sickle Cells Not Reportable 03/03/20 04:36 Target Cells Few 03/03/20 04:36 Tear Drop Cells Not Reportable 03/03/20 04:36 Ovalocytes Few 03/03/20 04:36 Helmet Cells Not Reportable 03/03/20 04:36 [place] Bodies Not Reportable 03/03/20 04:36 Spring Rings Not Reportable 03/03/20 04:36 Mirna Cells Not Reportable 03/03/20 04:36 Bite Cells Not Reportable 03/03/20 04:36 Crenated Cell Not Reportable 03/03/20 04:36 Elliptocytes Not Reportable 03/03/20 04:36 Acanthocytes (Spur) Not Reportable 03/03/20 04:36 Rouleaux Not Reportable 03/03/20 04:36 Hemoglobin C Crystals Not Reportable 03/03/20 04:36 Schistocytes Not Reportable 03/03/20 04:36 Malaria parasites Not Reportable 03/03/20 04:36 Edgrado Bodies Not Reportable 03/03/20 04:36 Hem Pathologist Commnt No 03/03/20 04:36 PT 13.7 Sec. (12.2-14.9) 02/25/20 03:49 INR 1.03 (0.87-1.13) 02/25/20 03:49 ABG pH 7.364 (7.320-7.450) 03/03/20 04:00 POC ABG pCO2 31.8 mmHg (32.0-48.0) L 03/03/20 04:00 ABG pCO2 29.4 mm Hg 03/01/20 04:05 POC ABG pO2 83.1 mmHg (83-108) 03/03/20 04:00 ABG pO2 133.5 mm Hg (80.0-90.0) H 03/01/20 04:05 POC ABG HCO3 17.7 03/03/20 04:00 ABG HCO3 15.8 mmol/L (20.0-26.0) L 03/01/20 04:05 ABG O2 Saturation 98.6 % (95.0-99.0) 03/01/20 04:05 ABG O2 Content 10.6 (0.0-44) 03/01/20 04:05 POC ABG Base Excess -6.9 03/03/20 04:00 ABG Base Excess -8.9 mmol/L (-2.0-3.0) L 03/01/20 04:05 ABG Hemoglobin 8.6 (12.0-17.5) L 03/03/20 04:00 ABG Oxyhemoglobin 94.7 (94-98) 03/03/20 04:00 ABG Carboxyhemoglobin 1.8 % (0.0-5.0) 03/01/20 04:05 ABG Methemoglobin 0.3 (0.0-1.5) 03/03/20 04:00 Oxyhemoglobin 96.3 % (95.0-99.0) 03/01/20 04:05 Carboxyhemoglobin 0.8 (0.5-1.5) 03/03/20 04:00 FiO2 30.0 03/03/20 04:00 Sodium 147 mmol/L (137-145) H 03/03/20 04:36 Potassium 4.1 mmol/L (3.6-5.0) 03/03/20 04:36 Chloride 108.4 mmol/L (98-107) H 03/03/20 04:36 Carbon Dioxide 16 mmol/L (22-30) L 03/03/20 04:36 Anion Gap 27 mmol/L 03/03/20 04:36 BUN 87 mg/dL (7-17) H 03/03/20 04:36 Creatinine 6.2 mg/dL (0.6-1.2) H 03/03/20 04:36 Estimated GFR 9 ml/min 03/03/20 04:36 BUN/Creatinine Ratio 14 % 03/03/20 04:36 Glucose 89 mg/dL (65-100) 03/03/20 04:36 POC Glucose 105 (70-105) 03/03/20 05:25 Lactic Acid 0.90 mmol/L (0.7-2.0) 02/27/20 19:33 Calcium 9.4 mg/dL (8.4-10.2) 03/03/20 04:36 Phosphorus 6.10 mg/dL (2.5-4.5) H 03/01/20 04:37 Magnesium 2.50 mg/dL (1.7-2.3) H 03/03/20 04:36 Total Bilirubin 1.20 mg/dL (0.1-1.2) 03/03/20 04:36 Direct Bilirubin 1.0 mg/dL (0-0.2) H 03/03/20 04:36 Indirect Bilirubin 0.2 mg/dL 03/03/20 04:36 AST 26 units/L (5-40) 03/03/20 04:36 ALT 16 units/L (7-56) 03/03/20 04:36 Alkaline Phosphatase 109 units/L (35-129) 03/03/20 04:36 C-Reactive Protein 36.50 mg/dL (0.00-1.30) H 03/01/20 11:06 Serum Total Protein 6.3 g/dL (6.1-8.1) 02/26/20 04:39 Total Protein 6.8 g/dL (6.3-8.2) 03/03/20 04:36 Albumin 2.4 g/dL (3.9-5) L 03/03/20 04:36 Albumin/Globulin Ratio 0.5 % 03/03/20 04:36 Ambsj-8-Dpzuofmcr 0.7 g/dL (0.2-0.3) H 02/26/20 04:39 Htkwl-6-Yctaefpwm 0.8 g/dL (0.5-0.9) 02/26/20 04:39 Beta Globulins 0.4 g/dL (0.2-0.5) 02/26/20 04:39 Gamma Globulins 1.2 g/dL (0.8-1.7) 02/26/20 04:39 Abnorm Protein Band 1 see below 02/26/20 04:39 PEP Interpretation see below H 02/26/20 04:39 Triglycerides 118 mg/dL (2-149) 02/26/20 04:39 Lipase 119 units/L (13-60) H 03/03/20 04:36 HCG, Qual Negative (Negative) 02/24/20 02:53 PTH Intact 911.3 pg/mL (15-65) H 02/26/20 08:15 Urine Color Yellow (Yellow) 02/24/20 Unknown Urine Turbidity Clear (Clear) 02/24/20 Unknown Urine pH 6.0 (5.0-7.0) 02/24/20 Unknown Ur Specific [place] 1.020 (1.003-1.030) 02/24/20 Unknown Urine Protein >500 mg/dL (Negative) 02/24/20 Unknown Urine Glucose (UA) 50 mg/dL (Negative) 02/24/20 Unknown Urine Ketones Neg mg/dL (Negative) 02/24/20 Unknown Urine Blood Lg (Negative) 02/24/20 Unknown Urine Nitrite Neg (Negative) 02/24/20 Unknown Urine Bilirubin Neg (Negative) 02/24/20 Unknown Urine Urobilinogen < 2.0 mg/dL (<2.0) 02/24/20 Unknown Ur Leukocyte Esterase Neg (Negative) 02/24/20 Unknown Urine WBC (Auto) 11.0 /HPF (0.0-6.0) H 02/24/20 Unknown Urine RBC (Auto) 149.0 /HPF (0.0-6.0) 02/24/20 Unknown U Epithel Cells (Auto) 5.0 /HPF (0-13.0) 02/24/20 Unknown Urine Bacteria (Auto) 1+ /HPF (Negative) 02/24/20 Unknown Urine Mucus Few /HPF 02/24/20 Unknown Urine Creatinine 161.0 mg/dL (0.1-20.0) H 02/25/20 22:55 Protein/Creatinin Ratio 0.93 02/25/20 22:55 Urine Total Protein 150 mg/dL (5-11.8) H 02/25/20 22:55 ZINA Screen Positive (Negative) H 02/26/20 04:39 Proteinase 3 (PR3) Ab <1.0 AI (<1.0) 02/26/20 04:39 Myeloperoxidase Ab <1.0 AI (<1.0) 02/26/20 04:39 Complement C3 153 mg/dL (83-193) 02/26/20 04:39 Complement C4 35 mg/dL (15-57) 02/26/20 04:39 Blood Type AB POSITIVE 03/01/20 18:30 Antibody Screen Negative 03/01/20 18:30 Crossmatch See Detail 03/01/20 18:30 Microbiology: Microbiology 02/26/20 18:56 Peripheral/Venous Blood Culture - Final NO GROWTH AFTER 5 DAYS 02/26/20 18:56 Peripheral/Venous Blood Culture - Final NO GROWTH AFTER 5 DAYS 02/29/20 Unknown Tracheal Aspirate Sputum Culture - Preliminary - Diagnostic Impressions Diagnostic Impressions: Echocardiogram 02/26/20 09:11 Transthoracic Echocardiogram Indication: Cardiomegaly BP: 149/92 HR: 122 Conclusions *Global left ventricular systolic function is normal. *The estimated ejection fraction is 60-65%. *Moderate to severe concentric left ventricular hypertrophy is observed. *The left atrium is mild to moderately dilated. *The aortic valve leaflets are moderately thickened. *A mean gradient of 22.39 mmHg across the outflow tract is likely not due to but hyperdynamic flow and LVH. *There is trace tricuspid regurgitation. Findings Left Ventricle: The left ventricular chamber size is normal. Moderate to severe concentric left ventricular hypertrophy is observed. Global left ventricular systolic function is normal. The estimated ejection fraction is 60-65%. Left Atrium: The left atrium is mild to moderately dilated. Right Ventricle: The right ventricular cavity size is normal. The right ventricular global systolic function is normal. Right Atrium: The right atrial cavity size is normal. Aortic Valve: The aortic valve leaflets are moderately thickened. There is no evidence of aortic regurgitation. The mean gradient of the aortic valve is 22.39 mmHg. Mitral Valve: The mitral valve leaflets are mildly thickened. There is trace of mitral regurgitation. There is no evidence of mitral stenosis. Tricuspid Valve: There is trace tricuspid regurgitation. No pulmonary hypertension is noted. Pulmonic Valve: There is trace pulmonic regurgitation. Pericardium: There is no pericardial effusion. Aorta: There is no dilatation of the ascending aorta. There is no dilatation of the aortic root. Venous: The inferior vena cava appears normal in size. Measurements Chambers 2D Name Value Normal Range IVSd (2D) 1.8 cm (0.6 - 1.1) LVPWd (2D) 1.74 cm (0.6 - 1.1) LVIDd (2D) 4.57 cm (3.7 - 5.6) LVIDs (2D) 2.73 cm (2 - 3.8) LV FS (2D) 40.27 % - EF Teichholz (2D) 71.04 % - Ao root diameter (2D) 2.79 cm (2 - 3.7) Volumes/Mass Name Value Normal Range LA ESV SP 4CH (A/L) 54.18 ml - LA ESV SP 2CH (A/L) 61.84 ml - LA ESV BP (A/L) 58.1 ml - LA ESV BP (A/L) index 30.74 ml/m2 - LA ESV SP 4CH (MOD) 52.89 ml - LA ESV SP 2CH (MOD) 60.65 ml - LA ESV BP (MOD) 56.77 ml - LA ESV BP (MOD) index 30.04 ml/m2 - LV EDV SP 4CH (MOD) 164.2 ml - LV ESV SP 4CH (MOD) 58.04 ml - EF SP 4CH (MOD) 64.65 % - Diastolic/Systolic Function Name Value Normal Range MV E-wave Vmax 1.38 m/sec - MV deceleration time 92.78 msec - MV A-wave Vmax 1.44 m/sec - MV E:A ratio 0.95 ratio - Aortic Valve Name Value Normal Range AV Vmax 3.08 m/sec - AV VTI 36.74 cm - AV peak gradient 37.98 mmHg - AV mean gradient 22.39 mmHg - LVOT diameter 2.01 cm - LVOT Vmax 2.45 m/sec - LVOT VTI 29.85 cm - LVOT peak gradient 24.04 mmHg - LVOT mean gradient 11.11 mmHg - SV LVOT 94.73 ml - JADA (continuity Vmax) 2.52 cm2 - JADA (continuity VTI) 2.58 cm2 - Ascending Ao 2.64 cm - Mitral Valve Name Value Normal Range MV PHT 37.88 msec - MVA (PHT) 5.81 cm2 - Tricuspid Valve Name Value Normal Range IVC diameter 1.93 cm (1.2 - 2.3) Pulmonic Valve/Qp:Qs Name Value Normal Range PV Vmax 2.83 m/sec - PV VTI 45.88 cm - PV peak gradient 32.06 mmHg - PV mean gradient 16.11 mmHg - IN end-diastolic Vmax 0.81 m/sec - RVOT Vmax 1.82 m/sec - RVOT VTI 25.12 cm - RVOT peak gradient 13.3 mmHg - Franks/IV: Voiding Method External Female Catheter IV Catheter Type [Left Upper INT / Saline Lock arm] IV Catheter Type [Right Upper INT / Saline Lock arm] IV Catheter Type [Right INT / Saline Lock Forearm] IV Catheter Type [Right Wrist] Peripheral IV IV Catheter Type [Right Peripheral IV Antecubital] Active Medications - Current Medications Current Medications: Generic Name Dose Route Start Last Admin Trade Name Freq PRN Reason Stop Dose Admin Acetaminophen 650 mg 02/26/20 16:23 02/26/20 16:37 Tylenol PO 650 mg Q4H PRN Administration Pain, Mild (1-3)/ Temp >100. Albuterol 2.5 mg 02/27/20 17:55 Proventil IH Q4HRT PRN Shortness Of Breath Albuterol/Ipratropium 1 ampul 02/28/20 12:17 03/03/20 08:05 Duoneb *Not For Prn Use* IH 1 ampul Q6HRT INDU Administration Amlodipine Besylate 10 mg 02/28/20 10:00 03/02/20 10:00 Amlodipine PO Not Given QDAY INDU Lipase/Protease/Amylase 1 each 03/01/20 08:46 Pancreazeaston [place] 10,500 Unit FEEDTUBE PRN PRN For Clogged Feeding Tube Dextrose 50 ml 02/29/20 08:00 03/01/20 00:20 D50w (25gm) Syringe IV 10 ml Q30MIN PRN Administration HYPOGLYCEMIA Protocol Fentanyl 50 mcg 02/29/20 15:35 03/02/20 12:19 Sublimaze IV 50 mcg Q10MIN PRN Administration ANALGESIA Haloperidol Lactate 5 mg 02/28/20 11:30 02/28/20 11:51 Haldol IV 5 mg Q1H PRN Administration Unrespon. to mult. doses BZD's Heparin Sodium (Porcine) 5,000 unit 02/24/20 14:00 03/03/20 06:04 Heparin SUB-Q 5,000 unit Q8HR INDU Administration Hydralazine HCl 50 mg 02/28/20 14:00 03/03/20 06:06 Apresoline PO 50 mg Q8HR INDU Administration Hydrophilic Ointment 1 applic 02/29/20 15:35 Vaseline Lip Therapy TP Q2HR PRN Dry Lips Nicardipine HCl 50 mg/ Sodium 250 mls @ 25 mls/hr 02/24/20 07:00 02/28/20 12:51 Chloride IV 0 mg/hr TITR INDU 0 mls/hr Titration Protocol 5 MG/HR Piperacillin Sod/Tazobactam Sod 2.25 gm in 50 mls @ 100 mls/hr 02/26/20 18:30 03/03/20 02:43 Zosyn/Ns 2.25 Gm/50ml IV 100 mls/hr Q8H INDU Administration Protocol Fentanyl Citrate 2,000 mcg in 100 mls @ 4.55 mls/hr 02/29/20 16:00 03/03/20 06:03 Fentanyl Drip Premix IV 4 mcg/kg/hr TITR INDU 18.2 mls/hr Administration Protocol 1 MCG/KG/HR Midazolam HCl 100 mg/ Sodium 100 mls @ 2 mls/hr 02/29/20 16:00 03/02/20 15:35 Chloride IV 0 mg/hr TITR INDU 0 mls/hr Titration Protocol 2 MG/HR Propofol 1,000 mg in 100 mls @ 2.73 mls/hr 02/29/20 18:00 Diprivan 10 Mg/Ml IV TITR INDU Protocol 5 MCG/KG/MIN Sodium Bicarbonate 150 meq/ 1,150 mls @ 42 mls/hr 03/02/20 10:00 Dextrose IV DIRECT INDU Labetalol HCl 10 mg 02/28/20 09:00 Labetalol IV Q4H PRN Hypertension Lorazepam 1 mg 02/28/20 04:20 02/28/20 11:05 Ativan IV 1 mg Q4H PRN Administration Agitation Lorazepam 2 mg 02/28/20 11:30 02/29/20 11:43 Ativan IV 2 mg Q1H PRN Administration CIWA-Ar 8-15 Lorazepam 4 mg 02/28/20 11:30 02/29/20 16:19 Ativan IV 4 mg Q1H PRN Administration CIWA-Ar 16-25 Metoprolol Tartrate 25 mg 02/28/20 10:00 03/02/20 21:23 Metoprolol PO 25 mg BID INDU Administration Midazolam HCl 2 mg 02/29/20 15:35 02/29/20 17:00 Versed IV 2 mg Q10MIN PRN Administration Sedation Multi-Ingred Cream/Lotion/Oil/Oint 1 applic 02/29/20 15:35 Artificial Tears Ophth Oint OU Q4HR PRN Dry Eye(s) Ondansetron HCl 4 mg 02/24/20 06:45 02/25/20 23:33 Zofran IV 4 mg Q8H PRN Administration Nausea And Vomiting Pantoprazole Sodium 40 mg 02/24/20 13:00 03/02/20 09:51 Protonix IV 40 mg QDAY INDU Administration Simple Syrup 15 ml 03/01/20 08:46 Simple Syrup FEEDTUBE PRN PRN Hypoglycemia Simple Syrup 30 ml 03/01/20 08:46 Simple Syrup FEEDTUBE PRN PRN Hypoglycemia Sodium Bicarbonate 325 mg 03/01/20 08:46 Sodium Bicarbonate FEEDTUBE PRN PRN For Clogged Feeding Tube Sodium Bicarbonate 1,300 mg 03/01/20 16:43 09/28/20 19:54 Sodium Bicarbonate PO 1,300 mg TID INDU Administration Sodium Chloride 10 ml 02/24/20 10:00 03/03/20 06:06 Sodium Chloride Flush Syringe 10 Ml IV 10 ml BID INDU Administration Sodium Chloride 10 ml 02/24/20 06:45 Sodium Chloride Flush Syringe 10 Ml IV PRN PRN LINE FLUSH Tamsulosin HCl 0.4 mg 03/01/20 17:00 03/02/20 09:52 Flomax PO 0.4 mg QDAY INDU Administration Nutrition/Malnutrition Assess - Dietary Evaluation Nutrition/Malnutrition Findings: Nutrition Notes Start: 02/24/20 13:42 Freq: Status: Active Protocol: Document 03/02/20 15:05 AMADEO (Rec: 03/02/20 15:09 AMADEO [id number]) Co-Sign 03/02/20 15:05 LP Nutrition Notes Need for Assessment generated from: MD Order Initial or Follow up Reassessment Current Diagnosis Acute Kidney Injury,Sepsis, Hypertension,Respiratory Failure,Hyperlipidemia Other Pertinent Diagnosis Acute pancreatitis Current Diet Nepro 1.8 at 35 ml/hr Labs/Tests BUN 85 Cr 5.6 Mg 2.5 Pertinent Medications Reviewed Height 5 ft 1 in Weight 91 kg [place] Body Weight (kg) 47.72 BMI 37.9 Weight Status Obese Subjective/Other Information MD consult for TF. Per chart TF stopped this AM. Per MD start TF at 10ml/hr. Percent of energy/protein needs met: 0%/0% Burn Absent Trauma Absent GI Symptoms None Current % PO Negligible Minimum of two criteria No Fluid Accumulation Moderate to Severe (severe) #2 Nutrition Diagnosis Inadequate oral intake Diagnosis Progress(for reassessment Continues documentation) #1 Nutrition Diagnosis Food and nutrition-related knowledge deficit Diagnosis Progress(for reassessment Continues documentation) Is patient on ventilator? Yes Is Patient Ambulatory and/or Out of Bed No [facility] 1823.604 Kcal/Kg value to use for calculation 16 Approximate Energy Requirements Using 1456 kcal/Kg Calculation Used for Recommendations Kcal/kg Additional Notes Pro: 96g (>2g/kg using IBW 48kg) Fluid: 1ml/kcal Nutrition Intervention Change Diet Order: TF Nutrition Support: Nepro 1.8 at 35ml/hr Flush 150ml q4h Kcal 1,512 Protein (gm) 68 Fluid (mL) 611 Goal #1 TF start/tolerance Anticipated Discharge Needs: Undetermined at this time Follow-Up By: 03/04/20 Additional Comments F/U for TF start/tolerance
--- NOTE | 2020-03-03 09:07 | Progress Note ---
Assessment and Plan # Acute Kidney Injury/Chronic Kidney Disease: suspect JUANIS in setting of hypertensive urgency and pre-renal injury from pancreatitis. Additional JUANIS risk factors include use of NSAID (Toradol) and PPI. 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 Creatinine has worsened from 1.7->3.0->3.1->3.4->4.2->4.7->5.6->5.0> 6.2 since admission, now intubated -Patient's renal function is getting worse. Acidosis is worsening again despite bicarbonate drip. She is clinically volume overloaded as well. Spoke with patient's daughter Ewa Dunbar at [phone] . Discussed the need for renal replacement therapy. She has consented to it. -Consult vascular surgery for Vas-Cath placement. -Initiate dialysis after access. - strict Is/Os - ordered serologies-> ANCA negative; minimal proteinuria per UP/C, PTH high for CKD; reviewed urinalysis which does show hematuria and proteinuria - BP control as below # Hypertensive Emergency: BPs improved, off Cardene gtt, agree to titrate back to home amlodipine, metoprolol. On HANNA-I at home, hold for now. # Acidosis: Continue bicarbonate drip for now . # Pancreatitis: appreciate GI, pain management per primary. MRCP pending # Thrombocytosis # Leukocytosis Subjective Date of service: 03/03/20 Principal diagnosis: HTNsive urgency; Morbid obesity; Ac. pancreatitis; Abdominal pain Interval history: Patient is currently on the ventilator. On 30% FiO2. Sedated. Currently has a pure wick in place. Oxygen saturation is 96% Objective - Vital Signs Vital signs: Vital Signs - 12hr 03/02/20 03/02/20 03/02/20 21:15 21:22 21:23 Temperature Pulse Rate 101 H 101 H 102 H Pulse Rate [ Anterior Bilateral Throughout] Respiratory 25 H Rate Respiratory Rate [Anterior Bilateral Throughout] Blood Pressure 168/101 168/101 168/101 O2 Sat by Pulse 97 Oximetry 03/02/20 03/02/20 03/02/20 21:30 21:45 22:00 Temperature Pulse Rate 101 H 95 H 93 H Pulse Rate [ Anterior Bilateral Throughout] Respiratory 25 H 25 H 25 H Rate Respiratory Rate [Anterior Bilateral Throughout] Blood Pressure 167/98 164/103 147/87 O2 Sat by Pulse 97 96 96 Oximetry 03/02/20 03/02/20 03/02/20 22:15 22:30 22:45 Temperature Pulse Rate 94 H 91 H 92 H Pulse Rate [ Anterior Bilateral Throughout] Respiratory 25 H 25 H 25 H Rate Respiratory Rate [Anterior Bilateral Throughout] Blood Pressure 143/87 150/86 144/87 O2 Sat by Pulse 96 97 97 Oximetry 03/02/20 03/02/20 03/02/20 23:00 23:15 23:30 Temperature 98.8 F Pulse Rate 91 H 90 92 H Pulse Rate [ Anterior Bilateral Throughout] Respiratory 25 H 25 H 25 H Rate Respiratory Rate [Anterior Bilateral Throughout] Blood Pressure 143/87 146/89 154/94 O2 Sat by Pulse 97 98 98 Oximetry 03/02/20 03/03/20 03/03/20 23:45 00:00 00:06 Temperature Pulse Rate 95 H 94 H 94 H Pulse Rate [ Anterior Bilateral Throughout] Respiratory 25 H 25 H Rate Respiratory Rate [Anterior Bilateral Throughout] Blood Pressure 153/91 154/94 154/94 O2 Sat by Pulse 97 97 97 Oximetry 03/03/20 03/03/20 03/03/20 00:15 00:30 00:45 Temperature Pulse Rate 94 H 95 H 94 H Pulse Rate [ Anterior Bilateral Throughout] Respiratory 25 H 25 H 25 H Rate Respiratory Rate [Anterior Bilateral Throughout] Blood Pressure 155/93 156/99 151/92 O2 Sat by Pulse 97 97 97 Oximetry 03/03/20 03/03/20 03/03/20 01:00 01:15 01:30 Temperature Pulse Rate 96 H 95 H 95 H Pulse Rate [ Anterior Bilateral Throughout] Respiratory 25 H 25 H 25 H Rate Respiratory Rate [Anterior Bilateral Throughout] Blood Pressure 161/96 155/91 157/93 O2 Sat by Pulse 97 98 98 Oximetry 03/03/20 03/03/20 03/03/20 01:45 02:00 02:15 Temperature Pulse Rate 94 H 96 H 93 H Pulse Rate [ Anterior Bilateral Throughout] Respiratory 25 H 25 H 25 H Rate Respiratory Rate [Anterior Bilateral Throughout] Blood Pressure 156/96 162/96 151/93 O2 Sat by Pulse 98 98 98 Oximetry 03/03/20 03/03/20 03/03/20 02:30 02:45 03:00 Temperature Pulse Rate 93 H 96 H 95 H Pulse Rate [ Anterior Bilateral Throughout] Respiratory 25 H 25 H 25 H Rate Respiratory Rate [Anterior Bilateral Throughout] Blood Pressure 155/92 175/106 166/95 O2 Sat by Pulse 98 97 98 Oximetry 03/03/20 03/03/20 03/03/20 03:15 03:30 03:45 Temperature 100.7 F H Pulse Rate 94 H 92 H 99 H Pulse Rate [ Anterior Bilateral Throughout] Respiratory 25 H 25 H 25 H Rate Respiratory Rate [Anterior Bilateral Throughout] Blood Pressure 164/96 157/96 172/104 O2 Sat by Pulse 98 98 98 Oximetry 03/03/20 03/03/20 03/03/20 04:00 04:15 04:30 Temperature Pulse Rate 93 H 93 H 93 H Pulse Rate [ Anterior Bilateral Throughout] Respiratory 25 H 25 H 26 H Rate Respiratory Rate [Anterior Bilateral Throughout] Blood Pressure 154/96 155/96 151/93 O2 Sat by Pulse 99 98 98 Oximetry 03/03/20 03/03/20 03/03/20 04:44 04:45 05:00 Temperature Pulse Rate 93 H 93 H 93 H Pulse Rate [ 93 H Anterior Bilateral Throughout] Respiratory 25 H 25 H Rate Respiratory 25 H Rate [Anterior Bilateral Throughout] Blood Pressure 142/82 142/82 146/87 O2 Sat by Pulse 98 98 98 Oximetry 03/03/20 03/03/20 03/03/20 05:15 05:30 05:46 Temperature Pulse Rate 94 H 99 H 107 H Pulse Rate [ Anterior Bilateral Throughout] Respiratory 25 H 25 H 25 H Rate Respiratory Rate [Anterior Bilateral Throughout] Blood Pressure 147/84 147/84 168/100 O2 Sat by Pulse 98 97 Oximetry 03/03/20 03/03/20 03/03/20 06:00 06:15 06:30 Temperature Pulse Rate 98 H 97 H 98 H Pulse Rate [ Anterior Bilateral Throughout] Respiratory 25 H 25 H 25 H Rate Respiratory Rate [Anterior Bilateral Throughout] Blood Pressure 156/105 175/97 175/97 O2 Sat by Pulse 98 98 98 Oximetry 03/03/20 03/03/20 03/03/20 06:45 07:00 07:15 Temperature Pulse Rate 99 H 100 H 100 H Pulse Rate [ Anterior Bilateral Throughout] Respiratory 25 H 25 H 25 H Rate Respiratory Rate [Anterior Bilateral Throughout] Blood Pressure 158/86 152/90 158/96 O2 Sat by Pulse 98 99 99 Oximetry 03/03/20 03/03/20 03/03/20 07:30 07:38 07:52 Temperature Pulse Rate 96 H 111 H 111 H Pulse Rate [ Anterior Bilateral Throughout] Respiratory 25 H 16 Rate Respiratory Rate [Anterior Bilateral Throughout] Blood Pressure 149/87 149/87 O2 Sat by Pulse 99 99 Oximetry 03/03/20 08:05 Temperature Pulse Rate Pulse Rate [ 95 H Anterior Bilateral Throughout] Respiratory Rate Respiratory 16 Rate [Anterior Bilateral Throughout] Blood Pressure O2 Sat by Pulse Oximetry - General Appearance General appearance: well-developed, well-nourished, appears stated age, intubated EENT: PERRL, mucous membranes moist Neck: no JVD, no thyromegaly, no carotid bruit, supple Respiratory: Present: Ronchi (Bilateral scattered rhonchi) Cardiology: regular, normal heart rate, S1S2, no murmurs Gastrointestinal: normoactive bowel sounds, distended (Slightly distended.), other (Tympanitic to percussion) Integumentary: other (1+ edema) - Lab 03/03/20 04:36 03/03/20 04:36 Most recent lab results ABG pH 7.364 (7.320-7.450) 03/03/20 04:00 ABG pCO2 29.4 mm Hg 03/01/20 04:05 ABG pO2 133.5 mm Hg (80.0-90.0) H 03/01/20 04:05 ABG HCO3 15.8 mmol/L (20.0-26.0) L 03/01/20 04:05 ABG O2 Saturation 98.6 % (95.0-99.0) 03/01/20 04:05 Calcium 9.4 mg/dL (8.4-10.2) 03/03/20 04:36 Phosphorus 6.10 mg/dL (2.5-4.5) H 03/01/20 04:37 Magnesium 2.50 mg/dL (1.7-2.3) H 03/03/20 04:36 Urine Creatinine 161.0 mg/dL (0.1-20.0) H 02/25/20 22:55 Urine Total Protein 150 mg/dL (5-11.8) H 02/25/20 22:55 Medications & Allergies - Medications Allergies/Adverse Reactions: Allergies No Known Allergies Allergy (Unverified 09/05/19 10:15) Home Medications: Home Medications Medication Instructions Recorded Confirmed Last Taken Type Amlodipine Besylate [Norvasc] 10 mg PO DAILY 09/05/19 02/24/20 09/04/19 History Furosemide [Lasix] 20 mg PO QDAY #30 tablet 09/05/19 02/24/20 Unknown Rx Lisinopril [Zestril] 5 mg PO DAILY #30 tablet 09/05/19 02/24/20 Unknown Rx Metoprolol [Lopressor TAB] 25 mg PO BID #60 tablet 09/05/19 02/24/20 Unknown Rx Active Medications: Generic Name Dose Route Start Last Admin Trade Name Freq PRN Reason Stop Dose Admin Acetaminophen 650 mg 02/26/20 16:23 02/26/20 16:37 Tylenol PO 650 mg Q4H PRN Administration Pain, Mild (1-3)/ Temp >100. Albuterol 2.5 mg 02/27/20 17:55 Proventil IH Q4HRT PRN Shortness Of Breath Albuterol/Ipratropium 1 ampul 02/28/20 12:17 03/03/20 08:05 Duoneb *Not For Prn Use* IH 1 ampul Q6HRT INDU Administration Amlodipine Besylate 10 mg 02/28/20 10:00 03/02/20 10:00 Amlodipine PO Not Given QDAY [facility] Lipase/Protease/Amylase 1 each 03/01/20 08:46 Pancreaze 10,500 Unit FEEDTUBE PRN PRN For Clogged Feeding Tube Dextrose 50 ml 02/29/20 08:00 03/01/20 00:20 D50w (25gm) Syringe IV 10 ml Q30MIN PRN Administration HYPOGLYCEMIA Protocol Fentanyl 50 mcg 02/29/20 15:35 03/02/20 12:19 Sublimaze IV 50 mcg Q10MIN PRN Administration ANALGESIA Haloperidol Lactate 5 mg 02/28/20 11:30 02/28/20 11:51 Haldol IV 5 mg Q1H PRN Administration Unrespon. to mult. doses BZD's Heparin Sodium (Porcine) 5,000 unit 02/24/20 14:00 03/03/20 06:04 Heparin SUB-Q 5,000 unit Q8HR INDU Administration Hydralazine HCl 50 mg 02/28/20 14:00 03/03/20 06:06 Apresoline PO 50 mg Q8HR INDU Administration Hydrophilic Ointment 1 applic 02/29/20 15:35 Vaseline Lip Therapy TP Q2HR PRN Dry Lips Nicardipine HCl 50 mg/ Sodium 250 mls @ 25 mls/hr 02/24/20 07:00 02/28/20 12:51 Chloride IV 0 mg/hr TITR INDU 0 mls/hr Titration Protocol 5 MG/HR Piperacillin Sod/Tazobactam Sod 2.25 gm in 50 mls @ 100 mls/hr 02/26/20 18:30 03/03/20 02:43 Zosyn/Ns 2.25 Gm/50ml IV 100 mls/hr Q8H INDU Administration Protocol Fentanyl Citrate 2,000 mcg in 100 mls @ 4.55 mls/hr 02/29/20 16:00 03/03/20 06:03 Fentanyl Drip Premix IV 4 mcg/kg/hr TITR INDU 18.2 mls/hr Administration Protocol 1 MCG/KG/HR Midazolam HCl 100 mg/ Sodium 100 mls @ 2 mls/hr 02/29/20 16:00 03/02/20 15:35 Chloride IV 0 mg/hr TITR INDU 0 mls/hr Titration Protocol 2 MG/HR Propofol 1,000 mg in 100 mls @ 2.73 mls/hr 02/29/20 18:00 Diprivan 10 Mg/Ml IV TITR INDU Protocol 5 MCG/KG/MIN Sodium Bicarbonate 150 meq/ 1,150 mls @ 42 mls/hr 03/02/20 10:00 Dextrose IV DIRECT INDU Labetalol HCl 10 mg 02/28/20 09:00 Labetalol IV Q4H PRN Hypertension Lorazepam 1 mg 02/28/20 04:20 02/28/20 11:05 Ativan IV 1 mg Q4H PRN Administration Agitation Lorazepam 2 mg 02/28/20 11:30 02/29/20 11:43 Ativan IV 2 mg Q1H PRN Administration CIWA-Ar 8-15 Lorazepam 4 mg 02/28/20 11:30 02/29/20 16:19 Ativan IV 4 mg Q1H PRN Administration CIWA-Ar 16-25 Metoprolol Tartrate 25 mg 02/28/20 10:00 03/02/20 21:23 Metoprolol PO 25 mg BID INDU Administration Midazolam HCl 2 mg 02/29/20 15:35 02/29/20 17:00 Versed IV 2 mg Q10MIN PRN Administration Sedation Multi-Ingred Cream/Lotion/Oil/Oint 1 applic 02/29/20 15:35 Artificial Tears Ophth Oint OU Q4HR PRN Dry Eye(s) Ondansetron HCl 4 mg 02/24/20 06:45 02/25/20 23:33 Zofran IV 4 mg Q8H PRN Administration Nausea And Vomiting Pantoprazole Sodium 40 mg 02/24/20 13:00 03/02/20 09:51 Protonix IV 40 mg QDAY INDU Administration Simple Syrup 15 ml 03/01/20 08:46 Simple Syrup FEEDTUBE PRN PRN Hypoglycemia Simple Syrup 30 ml 03/01/20 08:46 Simple Syrup FEEDTUBE PRN PRN Hypoglycemia Sodium Bicarbonate 325 mg 03/01/20 08:46 Sodium Bicarbonate FEEDTUBE PRN PRN For Clogged Feeding Tube Sodium Bicarbonate 1,300 mg 03/01/20 16:43 03/02/20 19:54 Sodium Bicarbonate PO 1,300 mg TID INDU Administration Sodium Chloride 10 ml 02/24/20 10:00 03/03/20 06:06 Sodium Chloride Flush Syringe 10 Ml IV 10 ml BID INDU Administration Sodium Chloride 10 ml 02/24/20 06:45 Sodium Chloride Flush Syringe 10 Ml IV PRN PRN LINE FLUSH Tamsulosin HCl 0.4 mg 03/01/20 17:00 03/02/20 09:52 Flomax PO 0.4 mg QDAY INDU Administration
[2020-03-03] MEDS ORDERED: SODIUM CHLORIDE 0.9% 100 ML IV PRN (09:08)
[2020-03-03] MEDS: SODIUM BICARBONATE 650 MG TAB PO SCH ×2 (09:22→20:54)
[2020-03-03] MEDS: METOPROLOL TARTRATE 25 MG TAB PO SCH ×2 (09:22→21:02)
[2020-03-03] MEDS: TAMSULOSIN 0.4 MG CAP PO SCH (09:23)
[2020-03-03] MEDS: amLODIPine 10 MG TAB PO SCH (09:23)
[2020-03-03] MEDS: PANTOPRAZOLE 40 MG INJ IV SCH (09:24)
--- NOTE | 2020-03-03 12:26 | Operative Report ---
Operative Report Operative Report: EXAM: 1. Ultrasound-guided puncture of the right internal jugular vein 2. Placement of a right internal jugular vein nontunneled noncuffed hemodialysis catheter. DATE: 03/03/2020 INDICATION: Acute renal failure requiring hemodialysis access. MEDICATIONS: Local anesthetic (1% lidocaine). DEVICES: Triple lumen nontunneled noncuffed hemodialysis catheter SATIN FINISHER: LIEN CABALLERO MD CONTRAST: None PROCEDURE: The risks, benefits, and alternatives were discussed and informed consent was obtained. The patient's right internal jugular vein was assessed with ultrasound at bedside and determined to be patent prior to procedure. The patient was prepped and draped in a sterile fashion. The puncture site was anesthetized. Under sonographic guidance, the right internal jugular vein was punctured with a 18-gauge micropuncture needle and a 0.035 inch wire was advanced through the needle. Over the 0.035 inch wire, dilatation was performed. The catheter was advanced over the wire. 2-0 silk suture was used to secure the catheter. The central lumen of the catheter was charged with saline. The peripheral lumens were charged with heparinized saline, 1000 units/mL of space. Biopatch and sterile dressing were applied. Chest x ray was ordered and the patient tolerated the procedure without immediate post procedual complication. FNDINGS: 1. Ultrasound documented patency of the right internal jugular vein. The vessel was accessed under direct ultrasound guidance. 2. On the post procedural chest x ray, the catheter tip is appropriately placed in the proximal right atrium. IMPRESSION: 1. Successful ultrasound guided bedside placement of a right internal jugular nontunneled noncuffed triple lumen hemodialysis catheter.
--- NOTE | 2020-03-03 12:26 | XRay Report ---
CHEST 1 VIEW INDICATION / CLINICAL INFORMATION: confrim vas cath placement. COMPARISON: 03/03/2020 at 0352 hours FINDINGS: SUPPORT DEVICES: Endotracheal tube, nasogastric tube, right central venous line HEART / MEDIASTINUM: No significant abnormality. LUNGS / PLEURA: No significant pulmonary or pleural abnormality. No pneumothorax. ADDITIONAL FINDINGS: No significant additional findings. IMPRESSION: Right-sided central venous catheter has been placed with the tip superimposed over the expected posit ion of the atriocaval junction. No evidence of a right-sided pneumothorax Signer Name: John Ríos MD FACR Signed: 03/03/2020 12:21 PM Workstation Name: [id number]
--- NOTE | 2020-03-03 13:20 | Progress Note ---
Assessment and Plan Cultures: Urine culture grew 10-100,000 usual xavier. Blood culture 02/26/2020 no growth 02/29/2020 sputum culture: rare usual xavier Assessment: 39 years old female with history of hypertension, previous kidney stone, hyperlipidemia and obesity admitted on 02/24/2020 due to a week history of severe epigastric abdominal pain radiated to the right flank and back: #Acute sepsis: Likely secondary to severe pancreatitis and related complications. #Acute severe pancreatitis: Unclear etiology. Initial non-contrasted CT showed no evidence of necrosis or pseudocyst or abscess formation. No evidence of infected necrotic pancreatitis. Repeat CT with interval worsening of inflammatory changes to the pancreatic parenchyma extending now to the pancreatic body with significant interval worsening of peripancreatic fat stranding and surrounding disorganized fluid. #Acute renal failure: now requiring dialysis. Nephrology on board. #Acute respiratory hypoxic failure: on the vent. #?Alcohol abuse Recommendations: -sepsis/SIRS is likely from severe acute pancreatitis, no infectious process has been identified, however given bandemia, will switch Zosyn to renally dosed m eropenem -continue supportive care per primary, GI and ICU team Louie Graves MD, FACP [facility] C: [phone] O: [phone] F: [phone] Subjective Date of service: 03/03/20 Principal diagnosis: HTNsive urgency; Morbid obesity; Ac. pancreatitis; Abdominal pain Interval history: Febrile. Remains intubated on the vent. Got started on dialysis. Objective - Exam Narrative Exam: Physical Exam: Constitutional: sedated, intubated, on the vent Head, Ears, Nose: Normocephalic, atraumatic. External ears, nose normal Eyes: Conjunctivae/corneas clear. No icterus. No ptosis. Neck: intubated Oral: intubated Cardiovascular: S1, S2 + Respiratory: AE fair but reduced in the bases GI: distended, bowel sounds absent Musculoskeletal: No pedal edema, no cyanosis. HD cath + Skin: No rash or abscess Hem/Lymphatic: No palpable cervical or supraclavicular nodes. No lymphangitis Psych: no agitation Neurological: sedated, intubated, on the vent, exam limited - Constitutional Vitals: Vital Signs Temp Pulse Resp BP Pulse Ox 98.7 F 114 H 30 H 156/93 93 03/03/20 08:00 03/03/20 12:00 03/03/20 10:30 03/03/20 12:00 03/03/20 12:00 Temperature -Last 24 Hours Temperature 98.7 F Temperature 100.7 F Temperature 98.8 F Temperature 100.4 F Temperature 101.1 F - Labs CBC & Chem 7: 03/03/20 04:36 03/03/20 04:36 Labs: Abnormal lab results 03/03/20 03/03/20 03/03/20 Range/Units 04:00 04:36 04:36 WBC (4.5-11.0) K/mm3 RBC (3.65-5.03) M/mm3 Hgb (10.1-14.3) gm/dl Hct (30.3-42.9) % MCV (79-97) fl MCH (28-32) pg RDW (13.2-15.2) % Plt Count (140-440) K/mm3 Seg Neuts % (Manual) (40.0-70.0) % Lymphocytes % (Manual) (13.4-35.0) % Seg Neutrophils # Man (1.8-7.7) K/mm3 Lymphocytes # (Manual) (1.2-5.4) K/mm3 Monocytes # (Manual) (0.0-0.8) K/mm3 POC ABG pCO2 31.8 L (32.0-48.0) mmHg ABG Hemoglobin 8.6 L (12.0-17.5) Sodium 147 H (137-145) mmol/L Chloride 108.4 H (98-107) mmol/L Carbon Dioxide 16 L (22-30) mmol/L BUN 87 H (7-17) mg/dL Creatinine 6.2 H (0.6-1.2) mg/dL Magnesium 2.50 H (1.7-2.3) mg/dL Direct Bilirubin 1.0 H (0-0.2) mg/dL Albumin 2.4 L (3.9-5) g/dL Lipase 119 H (13-60) units/L 03/03/20 Range/Units 04:36 WBC 28.0 H (4.5-11.0) K/mm3 RBC 3.41 L (3.65-5.03) M/mm3 Hgb 8.1 L (10.1-14.3) gm/dl Hct 25.3 L (30.3-42.9) % MCV 74 L (79-97) fl MCH 24 L (28-32) pg RDW 20.8 H (13.2-15.2) % Plt Count 557 H (140-440) K/mm3 Seg Neuts % (Manual) 82.0 H (40.0-70.0) % Lymphocytes % (Manual) 4.0 L (13.4-35.0) % Seg Neutrophils # Man 23.0 H (1.8-7.7) K/mm3 Lymphocytes # (Manual) 1.1 L (1.2-5.4) K/mm3 Monocytes # (Manual) 2.0 H (0.0-0.8) K/mm3 POC ABG pCO2 (32.0-48.0) mmHg ABG Hemoglobin (12.0-17.5) Sodium (137-145) mmol/L Chloride (98-107) mmol/L Carbon Dioxide (22-30) mmol/L BUN (7-17) mg/dL Creatinine (0.6-1.2) mg/dL Magnesium (1.7-2.3) mg/dL Direct Bilirubin (0-0.2) mg/dL Albumin (3.9-5) g/dL Lipase (13-60) units/L
--- NOTE | 2020-03-03 13:27 | Progress Note ---
Assessment and Plan (1) Acute pancreatitis - Developing complications related to local and systemic effects. Worsening renal failure, and WBC elevated. Etiology of pancreatitis unclear, but may be EtOH given course with possible DTs, though now seems to be developing multi-organ failure. - given calcification in HOP, MRCP at some point in future is reasonable, but no need urgently - based on course, repeat CT to monitor evolution of pancreatitis, usu q [address] was on 02/24. May repeat soon this week, based on course. - tube feeding and check lipase in AM - will repeat CT once better, but may avoid IV contrast due to renal failure, though, may consider if it will make difference in management, soniya as regards consideration of surgical debridement (2) Altered mental status - now intubated and sedated. 3. Anemia - on PPI. Hgb up to 7.2. - will defer transfusion, etc to Hospitalist Current Visit: Yes Status: Acute Plan to address problem: - Consider nutritional support with Dobhoff, and monitor pancreatitis. Subjective Date of service: 03/03/20 Principal diagnosis: HTNsive urgency; Morbid obesity; Ac. pancreatitis; Abdominal pain Interval history: Pt stable overnight. She is currently sedated, on ventilator. Has ongoing low grade fever. NG feeding initiated. Objective - Constitutional Vitals: Vital Signs - 12hr 03/03/20 03/03/20 03/03/20 01:30 01:45 02:00 Temperature Pulse Rate 95 H 94 H 96 H Pulse Rate [ Anterior Bilateral Throughout] Respiratory 25 H 25 H 25 H Rate Respiratory Rate [Abdomen] Respiratory Rate [Anterior Bilateral Throughout] Blood Pressure 157/93 156/96 162/96 O2 Sat by Pulse 98 98 98 Oximetry 03/03/20 03/03/20 03/03/20 02:15 02:30 02:45 Temperature Pulse Rate 93 H 93 H 96 H Pulse Rate [ Anterior Bilateral Throughout] Respiratory 25 H 25 H 25 H Rate Respiratory Rate [Abdomen] Respiratory Rate [Anterior Bilateral Throughout] Blood Pressure 151/93 155/92 175/106 O2 Sat by Pulse 98 98 97 Oximetry 03/03/20 03/03/20 03/03/20 03:00 03:15 03:30 Temperature 100.7 F H Pulse Rate 95 H 94 H 92 H Pulse Rate [ Anterior Bilateral Throughout] Respiratory 25 H 25 H 25 H Rate Respiratory Rate [Abdomen] Respiratory Rate [Anterior Bilateral Throughout] Blood Pressure 166/95 164/96 157/96 O2 Sat by Pulse 98 98 98 Oximetry 03/03/20 03/03/20 03/03/20 03:45 04:00 04:15 Temperature Pulse Rate 99 H 93 H 93 H Pulse Rate [ Anterior Bilateral Throughout] Respiratory 25 H 25 H 25 H Rate Respiratory Rate [Abdomen] Respiratory Rate [Anterior Bilateral Throughout] Blood Pressure 172/104 154/96 155/96 O2 Sat by Pulse 98 99 98 Oximetry 03/03/20 03/03/20 03/03/20 04:30 04:44 04:45 Temperature Pulse Rate 93 H 93 H 93 H Pulse Rate [ 93 H Anterior Bilateral Throughout] Respiratory 26 H 25 H Rate Respiratory Rate [Abdomen] Respiratory 25 H Rate [Anterior Bilateral Throughout] Blood Pressure 151/93 142/82 142/82 O2 Sat by Pulse 98 98 98 Oximetry 03/03/20 03/03/20 03/03/20 05:00 05:15 05:30 Temperature Pulse Rate 93 H 94 H 99 H Pulse Rate [ Anterior Bilateral Throughout] Respiratory 25 H 25 H 25 H Rate Respiratory Rate [Abdomen] Respiratory Rate [Anterior Bilateral Throughout] Blood Pressure 146/87 147/84 147/84 O2 Sat by Pulse 98 98 97 Oximetry 03/03/20 03/03/20 03/03/20 05:46 06:00 06:15 Temperature Pulse Rate 107 H 98 H 97 H Pulse Rate [ Anterior Bilateral Throughout] Respiratory 25 H 25 H 25 H Rate Respiratory Rate [Abdomen] Respiratory Rate [Anterior Bilateral Throughout] Blood Pressure 168/100 156/105 175/97 O2 Sat by Pulse 98 98 Oximetry 03/03/20 03/03/20 03/03/20 06:30 06:45 07:00 Temperature Pulse Rate 98 H 99 H 100 H Pulse Rate [ Anterior Bilateral Throughout] Respiratory 25 H 25 H 25 H Rate Respiratory Rate [Abdomen] Respiratory Rate [Anterior Bilateral Throughout] Blood Pressure 175/97 158/86 152/90 O2 Sat by Pulse 98 98 99 Oximetry 03/03/20 03/03/20 03/03/20 07:15 07:30 07:38 Temperature Pulse Rate 100 H 96 H 111 H Pulse Rate [ Anterior Bilateral Throughout] Respiratory 25 H 25 H Rate Respiratory Rate [Abdomen] Respiratory Rate [Anterior Bilateral Throughout] Blood Pressure 158/96 149/87 O2 Sat by Pulse 99 99 Oximetry 03/03/20 03/03/20 03/03/20 07:45 07:52 08:00 Temperature 98.7 F Pulse Rate 112 H 111 H 110 H Pulse Rate [ Anterior Bilateral Throughout] Respiratory 20 16 22 Rate Respiratory Rate [Abdomen] Respiratory Rate [Anterior Bilateral Throughout] Blood Pressure 170/95 149/87 163/92 O2 Sat by Pulse 95 99 96 Oximetry 03/03/20 03/03/20 03/03/20 08:05 08:15 08:30 Temperature Pulse Rate 115 H 115 H Pulse Rate [ 95 H Anterior Bilateral Throughout] Respiratory 24 24 Rate Respiratory Rate [Abdomen] Respiratory 16 Rate [Anterior Bilateral Throughout] Blood Pressure 173/98 156/90 O2 Sat by Pulse 96 97 Oximetry 03/03/20 03/03/20 03/03/20 08:45 09:00 09:15 Temperature Pulse Rate 117 H 117 H 115 H Pulse Rate [ Anterior Bilateral Throughout] Respiratory 23 22 23 Rate Respiratory Rate [Abdomen] Respiratory Rate [Anterior Bilateral Throughout] Blood Pressure 154/97 159/94 151/95 O2 Sat by Pulse 96 96 95 Oximetry 03/03/20 03/03/20 03/03/20 09:22 09:23 09:30 Temperature Pulse Rate 117 H 116 H 117 H Pulse Rate [ Anterior Bilateral Throughout] Respiratory 24 Rate Respiratory Rate [Abdomen] Respiratory Rate [Anterior Bilateral Throughout] Blood Pressure 151/95 151/95 160/88 O2 Sat by Pulse 96 Oximetry 03/03/20 03/03/20 03/03/20 09:45 10:00 10:15 Temperature Pulse Rate 111 H 110 H 111 H Pulse Rate [ Anterior Bilateral Throughout] Respiratory 26 H 25 H 29 H Rate Respiratory 25 H Rate [Abdomen] Respiratory Rate [Anterior Bilateral Throughout] Blood Pressure 165/93 156/91 166/92 O2 Sat by Pulse 95 95 94 Oximetry 03/03/20 03/03/20 10:30 12:00 Temperature Pulse Rate 114 H 114 H Pulse Rate [ Anterior Bilateral Throughout] Respiratory 30 H Rate Respiratory Rate [Abdomen] Respiratory Rate [Anterior Bilateral Throughout] Blood Pressure 156/93 156/93 O2 Sat by Pulse 93 93 Oximetry General appearance: Present: no acute distress, other (Sedated and intubated) - Gastrointestinal General gastrointestinal: Present: soft, tender (Less tender, and abd softer by exam with less distress to patient) - Labs CBC & Chem 7: 03/03/20 04:36 03/03/20 04:36 Labs: Abnormal lab results 03/03/20 03/03/20 03/03/20 Range/Units 04:00 04:36 04:36 WBC (4.5-11.0) K/mm3 RBC (3.65-5.03) M/mm3 Hgb (10.1-14.3) gm/dl Hct (30.3-42.9) % MCV (79-97) fl MCH (28-32) pg RDW (13.2-15.2) % Plt Count (140-440) K/mm3 Seg Neuts % (Manual) (40.0-70.0) % Lymphocytes % (Manual) (13.4-35.0) % Seg Neutrophils # Man (1.8-7.7) K/mm3 Lymphocytes # (Manual) (1.2-5.4) K/mm3 Monocytes # (Manual) (0.0-0.8) K/mm3 POC ABG pCO2 31.8 L (32.0-48.0) mmHg ABG Hemoglobin 8.6 L (12.0-17.5) Sodium 147 H (137-145) mmol/L Chloride 108.4 H (98-107) mmol/L Carbon Dioxide 16 L (22-30) mmol/L BUN 87 H (7-17) mg/dL Creatinine 6.2 H (0.6-1.2) mg/dL Magnesium 2.50 H (1.7-2.3) mg/dL Direct Bilirubin 1.0 H (0-0.2) mg/dL Albumin 2.4 L (3.9-5) g/dL Lipase 119 H (13-60) units/L 03/03/20 Range/Units 04:36 WBC 28.0 H (4.5-11.0) K/mm3 RBC 3.41 L (3.65-5.03) M/mm3 Hgb 8.1 L (10.1-14.3) gm/dl Hct 25.3 L (30.3-42.9) % MCV 74 L (79-97) fl MCH 24 L (28-32) pg RDW 20.8 H (13.2-15.2) % Plt Count 557 H (140-440) K/mm3 Seg Neuts % (Manual) 82.0 H (40.0-70.0) % Lymphocytes % (Manual) 4.0 L (13.4-35.0) % Seg Neutrophils # Man 23.0 H (1.8-7.7) K/mm3 Lymphocytes # (Manual) 1.1 L (1.2-5.4) K/mm3 Monocytes # (Manual) 2.0 H (0.0-0.8) K/mm3 POC ABG pCO2 (32.0-48.0) mmHg ABG Hemoglobin (12.0-17.5) Sodium (137-145) mmol/L Chloride (98-107) mmol/L Carbon Dioxide (22-30) mmol/L BUN (7-17) mg/dL Creatinine (0.6-1.2) mg/dL Magnesium (1.7-2.3) mg/dL Direct Bilirubin (0-0.2) mg/dL Albumin (3.9-5) g/dL Lipase (13-60) units/L Medications & Allergies - Medications Allergies/Adverse Reactions: Allergies No Known Allergies Allergy (Unverified 09/05/19 10:15) Home Medications: Home Medications Medication Instructions Recorded Confirmed Last Taken Type Amlodipine Besylate [Norvasc] 10 mg PO DAILY 09/05/19 02/24/20 09/04/19 History Furosemide [Lasix] 20 mg PO QDAY #30 tablet 09/05/19 02/24/20 Unknown Rx Lisinopril [Zestril] 5 mg PO DAILY #30 tablet 09/05/19 02/24/20 Unknown Rx Metoprolol [Lopressor TAB] 25 mg PO BID #60 tablet 09/05/19 02/24/20 Unknown Rx Active Medications: Generic Name Dose Route Start Last Admin Trade Name Freq PRN Reason Stop Dose Admin Acetaminophen 650 mg 02/26/20 16:23 02/26/20 16:37 Tylenol PO 650 mg Q4H PRN Administration Pain, Mild (1-3)/ Temp >100. Albuterol 2.5 mg 02/27/20 17:55 Proventil IH Q4HRT PRN Shortness Of Breath Albuterol/Ipratropium 1 ampul 02/28/20 12:17 03/03/20 08:05 Duoneb *Not For Prn Use* IH 1 ampul Q6HRT INDU Administration Amlodipine Besylate 10 mg 02/28/20 10:00 03/03/20 09:23 Amlodipine PO 10 mg QDAY INDU Administration Lipase/Protease/Amylase 1 each 03/01/20 08:46 Pancreaze 10,500 Unit FEEDTUBE PRN PRN For Clogged Feeding Tube Dextrose 50 ml 02/29/20 08:00 03/01/20 00:20 D50w (25gm) Syringe IV 10 ml Q30MIN PRN Administration HYPOGLYCEMIA Protocol Fentanyl 50 mcg 02/29/20 15:35 03/02/20 12:19 Sublimaze IV 50 mcg Q10MIN PRN Administration ANALGESIA Haloperidol Lactate 5 mg 02/28/20 11:30 02/28/20 11:51 Haldol IV 5 mg Q1H PRN Administration Unrespon. to mult. doses BZD's Heparin Sodium (Porcine) 5,000 unit 02/24/20 14:00 03/03/20 09:31 Heparin SUB-Q Not Given Q8HR INDU Hydralazine HCl 50 mg 02/28/20 14:00 03/03/20 06:06 Apresoline PO 50 mg Q8HR INDU Administration Hydrophilic Ointment 1 applic 02/29/20 15:35 Vaseline Lip Therapy TP Q2HR PRN Dry Lips Nicardipine HCl 50 mg/ Sodium 250 mls @ 25 mls/hr 02/24/20 07:00 02/28/20 12:51 Chloride IV 0 mg/hr TITR INDU 0 mls/hr Titration Protocol 5 MG/HR Fentanyl Citrate 2,000 mcg in 100 mls @ 4.55 mls/hr 02/29/20 16:00 03/03/20 13:04 Fentanyl Drip Premix IV 4 mcg/kg/hr TITR INDU 18.2 mls/hr Administration Protocol 1 MCG/KG/HR Midazolam HCl 100 mg/ Sodium 100 mls @ 2 mls/hr 02/29/20 16:00 03/02/20 15:35 Chloride IV 0 mg/hr TITR INDU 0 mls/hr Titration Protocol 2 MG/HR Propofol 1,000 mg in 100 mls @ 2.73 mls/hr 02/29/20 18:00 Diprivan 10 Mg/Ml IV TITR INDU Protocol 5 MCG/KG/MIN Sodium Bicarbonate 150 meq/ 1,150 mls @ 42 mls/hr 03/02/20 10:00 03/03/20 09:25 Dextrose IV 42 mls/hr DIRECT INDU Administration Sodium Chloride 100 mls @ 999 mls/hr 03/03/20 09:08 Nacl 0.9% IV NIKOLAY PRN Hypotension MEROPENEM/NS 1 GRAM/100 ML 1 gram in 100 mls @ 100 mls/hr 03/03/20 18:00 Merrem/Ns 1 Gram/100 Ml IV QPM INDU Protocol Labetalol HCl 10 mg 02/28/20 09:00 Labetalol IV Q4H PRN Hypertension Lorazepam 1 mg 02/28/20 04:20 02/28/20 11:05 Ativan IV 1 mg Q4H PRN Administration Agitation Lorazepam 2 mg 02/28/20 11:30 02/29/20 11:43 Ativan IV 2 mg Q1H PRN Administration CIWA-Ar 8-15 Lorazepam 4 mg 02/28/20 11:30 02/29/20 16:19 Ativan IV 4 mg Q1H PRN Administration CIWA-Ar 16-25 Metoprolol Tartrate 25 mg 02/28/20 10:00 03/03/20 09:22 Metoprolol PO 25 mg BID INDU Administration Midazolam HCl 2 mg 02/29/20 15:35 02/29/20 17:00 Versed IV 2 mg Q10MIN PRN Administration Sedation Multi-Ingred Cream/Lotion/Oil/Oint 1 applic 02/29/20 15:35 Artificial Tears Ophth Oint OU Q4HR PRN Dry Eye(s) Ondansetron HCl 4 mg 02/24/20 06:45 02/25/20 23:33 Zofran IV 4 mg Q8H PRN Administration Nausea And Vomiting Pantoprazole Sodium 40 mg 02/24/20 13:00 03/03/20 09:24 Protonix IV 40 mg QDAY INDU Administration Simple Syrup 15 ml 03/01/20 08:46 Simple Syrup FEEDTUBE PRN PRN Hypoglycemia Simple Syrup 30 ml 03/01/20 08:46 Simple Syrup FEEDTUBE PRN PRN Hypoglycemia Sodium Bicarbonate 325 mg 03/01/20 08:46 Sodium Bicarbonate FEEDTUBE PRN PRN For Clogged Feeding Tube Sodium Bicarbonate 1,300 mg 03/01/20 16:43 03/03/20 09:22 Sodium Bicarbonate PO 1,300 mg TID INDU Administration Sodium Chloride 10 ml 02/24/20 10:00 03/03/20 06:06 Sodium Chloride Flush Syringe 10 Ml IV 10 ml BID INDU Administration Sodium Chloride 10 ml 02/24/20 06:45 Sodium Chloride Flush Syringe 10 Ml IV PRN PRN LINE FLUSH Tamsulosin HCl 0.4 mg 03/01/20 17:00 03/03/20 09:23 Flomax PO 0.4 mg QDAY INDU Administration
[2020-03-03 13:33] LABS: Hepatitis B Surface Antigen Non-Reactive (Negative); Hepatitis C Virus Antibody Non-Reactive (NonReactive)
[2020-03-03] MEDS ORDERED: SODIUM CHLORIDE 0.9% P/F 10 ML VIAL ONE (16:40)
[2020-03-03] MEDS ORDERED: HEPARIN 10,000 UNIT/1 ML VIAL ONE (16:40)
[2020-03-03] MEDS: MEROPENEM/NS 1 GRAM/100 ML 1 GRAM/100 ML BAG IV SCH (18:49)
[2020-03-04] MEDS: IPRATROPIUM/ALBUTEROL SULFATE 3 ML AMPUL.NEB IH SCH ×4 (02:25→20:16)
[2020-03-04 04:35] LABS: Hematocrit 25.2 % (30.3-42.9); Hemoglobin 8.2 gm/dl (10.1-14.3); Mean Corpuscular HGB Conc 32 % (30-34); Mean Corpuscular Volume 73 fl (79-97); Platelet Count 554 K/mm3 (140-440); Red Blood Count 3.44 M/mm3 (3.65-5.03)
[2020-03-04 04:55] LABS: Red Cell Distribution Width 20.7 % (13.2-15.2)
[2020-03-04 04:56] LABS: Albumin 2.5 g/dL (3.9-5); Basophils % (Auto) 0.3 % (0.0-1.8); Bilirubin,Direct 0.7 mg/dL (0-0.2); Calcium 8.8 mg/dL (8.4-10.2); Eosinophils % (Auto) 1.1 % (0.0-4.3); Lymphocytes % (Auto) 3.3 % (13.4-35.0); Monocytes % (Auto) 6.7 % (0.0-7.3)
[2020-03-04 04:57] LABS: Basophils # (Auto) 0.1 K/mm3 (0.0-0.1); Eosinophils # (Auto) 0.3 K/mm3 (0.0-0.4)
[2020-03-04] MEDS: hydrALAZINE 25 MG TAB PO SCH ×3 (05:07→21:38)
[2020-03-04] MEDS: fentaNYL DRIP Premix 2,000 MCG/100 ML BAG IV SCH ×3 (05:07→20:54)
[2020-03-04] MEDS: HEPARIN 5,000 UNIT/1 ML VIAL SUB-Q SCH ×3 (05:07→21:39)
--- NOTE | 2020-03-04 06:38 | XRay Report ---
CHEST 1 VIEW 03/04/2020 5:28 AM INDICATION / CLINICAL INFORMATION: follow up respiratory failure. COMPARISON: 03/03/2020 FINDINGS: SUPPORT DEVICES: Stable, satisfactory device positioning. HEART / MEDIASTINUM: Stable. LUNGS / PLEURA: Mild worsening bibasilar pulmonary opacities. No pneumothorax. ADDITIONAL FINDINGS: No significant additional findings. IMPRESSION: 1. Mild worsening in bibasilar pulmonary opacities. Signer Name: Chance Leon MD Signed: 03/04/2020 6:34 AM Workstation Name: [employer]
[2020-03-04] MEDS: SODIUM BICARBONATE 650 MG TAB PO SCH ×3 (08:49→20:39)
[2020-03-04 08:53] LABS: ABG Base Excess 2.5 mmol/L (-2.0-3.0); ABG HCO3 27.2 mmol/L (20.0-26.0); ABG PCO2 42.7 mm Hg; ABG PH 7.422 pH Units (7.350-7.450); ABG PO2 57.4 mm Hg (80.0-90.0)
[2020-03-04] MEDS ORDERED: SODIUM CHLORIDE 0.9% 100 ML IV PRN (08:56)
--- NOTE | 2020-03-04 08:56 | Progress Note ---
Assessment and Plan # Acute Kidney Injury/Chronic Kidney Disease: suspect JUANIS in setting of hypertensive urgency and pre-renal injury from pancreatitis. Additional JUANIS risk factors include use of NSAID (Toradol) and PPI. 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 Creatinine has worsened from 1.7->3.0->3.1->3.4->4.2->4.7->5.6->5.0> 6.2 since admission, now intubated -Status post Vas-Cath placement on 12/02/2019 and initiation of dialysis. -Urine output is borderline and patient is clinically still volume overloaded. Continue maintenance dialysis. Schedule patient for dialysis treatment today . - strict Is/Os - ordered serologies-> ANCA negative; minimal proteinuria per UP/C, PTH high for CKD; reviewed urinalysis which does show hematuria and proteinuria - BP control as below # Hypertensive Emergency: BPs improved, off Cardene gtt, agree to titrate back to home amlodipine, metoprolol. On HANNA-I at home, hold for now. # Acidosis: Bicarbonate level is back up to 24. Discontinue bicarbonate drip . # Pancreatitis: appreciate GI, pain management per primary. # Thrombocytosis # Leukocytosis Subjective Date of service: 03/04/20 Principal diagnosis: HTNsive urgency; Morbid obesity; Ac. pancreatitis; Abdominal pain Interval history: Patient remains on the ventilator. Status post IJ Vas-Cath placement and initiation of dialysis. Patient remains unresponsive. Currently on 30% FiO2. Oxygen saturation 95% Objective - Vital Signs Vital signs: Vital Signs - 12hr 03/03/20 03/03/20 03/03/20 21:00 21:02 21:30 Temperature Pulse Rate 105 H 105 H 101 H Pulse Rate [ Anterior Bilateral Throughout] Respiratory 25 H 25 H Rate Respiratory Rate [Anterior Bilateral Throughout] Blood Pressure 147/82 147/82 146/83 O2 Sat by Pulse 97 97 Oximetry 03/03/20 03/03/20 03/03/20 22:00 22:30 23:00 Temperature Pulse Rate 97 H 99 H 98 H Pulse Rate [ Anterior Bilateral Throughout] Respiratory 25 H 25 H 25 H Rate Respiratory Rate [Anterior Bilateral Throughout] Blood Pressure 140/84 146/85 143/83 O2 Sat by Pulse 97 97 97 Oximetry 09/03/03/20 03/03/20 23:04 23:30 23:32 Temperature Pulse Rate 98 H 112 H 109 H Pulse Rate [ Anterior Bilateral Throughout] Respiratory 25 H 26 H Rate Respiratory Rate [Anterior Bilateral Throughout] Blood Pressure 145/84 193/121 O2 Sat by Pulse 94 96 Oximetry 03/03/20 03/04/20 03/04/20 23:49 00:00 00:19 Temperature 100.2 F H Pulse Rate 94 H 93 H Pulse Rate [ Anterior Bilateral Throughout] Respiratory 25 H Rate Respiratory Rate [Anterior Bilateral Throughout] Blood Pressure 145/83 141/83 O2 Sat by Pulse 100 98 Oximetry 03/04/20 03/04/20 03/04/20 00:30 01:00 01:30 Temperature Pulse Rate 93 H 93 H 92 H Pulse Rate [ Anterior Bilateral Throughout] Respiratory 25 H 25 H 25 H Rate Respiratory Rate [Anterior Bilateral Throughout] Blood Pressure 138/81 138/82 141/81 O2 Sat by Pulse 98 98 98 Oximetry 03/04/20 03/04/20 03/04/20 02:00 02:25 02:30 Temperature Pulse Rate 111 H 113 H Pulse Rate [ 115 H Anterior Bilateral Throughout] Respiratory 22 20 Rate Respiratory 27 H Rate [Anterior Bilateral Throughout] Blood Pressure 146/85 O2 Sat by Pulse 95 97 Oximetry 03/04/20 03/04/20 03/04/20 03:00 03:30 03:59 Temperature Pulse Rate 106 H 101 H Pulse Rate [ Anterior Bilateral Throughout] Respiratory 26 H 25 H Rate Respiratory Rate [Anterior Bilateral Throughout] Blood Pressure 155/92 150/89 O2 Sat by Pulse 97 98 100 Oximetry 03/04/20 03/04/20 03/04/20 04:00 04:06 04:30 Temperature 100.6 F H Pulse Rate 99 H 108 H 105 H Pulse Rate [ Anterior Bilateral Throughout] Respiratory 25 H 38 H Rate Respiratory Rate [Anterior Bilateral Throughout] Blood Pressure 154/92 154/92 176/107 O2 Sat by Pulse 98 98 98 Oximetry 03/04/20 03/04/20 03/04/20 05:00 05:07 05:30 Temperature Pulse Rate 104 H 103 H 116 H Pulse Rate [ Anterior Bilateral Throughout] Respiratory 25 H 21 Rate Respiratory Rate [Anterior Bilateral Throughout] Blood Pressure 169/103 O2 Sat by Pulse 98 96 Oximetry 03/04/20 03/04/20 03/04/20 06:00 06:30 06:45 Temperature Pulse Rate 112 H 116 H 122 H Pulse Rate [ Anterior Bilateral Throughout] Respiratory 25 H 25 H Rate Respiratory Rate [Anterior Bilateral Throughout] Blood Pressure 182/106 164/95 210/110 O2 Sat by Pulse 97 97 Oximetry 03/04/20 03/04/20 07:00 07:58 Temperature 99.9 F H Pulse Rate 93 H Pulse Rate [ Anterior Bilateral Throughout] Respiratory 25 H Rate Respiratory Rate [Anterior Bilateral Throughout] Blood Pressure 133/76 O2 Sat by Pulse 97 Oximetry - General Appearance General appearance: well-developed, well-nourished, appears stated age, intubated EENT: PERRL, mucous membranes moist Neck: other (Right IJ Vas-Cath in place) Respiratory: Present: Ronchi (Bilateral scattered rhonchi) Cardiology: regular, normal heart rate Gastrointestinal: normoactive bowel sounds, distended (Slightly distended. Tympanitic to percussion) Integumentary: other (Trace to 1+ edema) - Lab 03/04/20 04:05 03/04/20 04:05 Most recent lab results ABG pH 7.364 (7.320-7.450) 03/03/20 04:00 ABG pCO2 29.4 mm Hg 03/01/20 04:05 ABG pO2 133.5 mm Hg (80.0-90.0) H 03/01/20 04:05 ABG HCO3 15.8 mmol/L (20.0-26.0) L 03/01/20 04:05 ABG O2 Saturation 98.6 % (95.0-99.0) 03/01/20 04:05 Calcium 8.8 mg/dL (8.4-10.2) 03/04/20 04:05 Phosphorus 6.10 mg/dL (2.5-4.5) H 03/01/20 04:37 Magnesium 2.20 mg/dL (1.7-2.3) 03/04/20 04:05 Urine Creatinine 161.0 mg/dL (0.1-20.0) H 02/25/20 22:55 Urine Total Protein 150 mg/dL (5-11.8) H 02/25/20 22:55 Medications & Allergies - Medications Allergies/Adverse Reactions: Allergies No Known Allergies Allergy (Unverified 09/05/19 10:15) Home Medications: Home Medications Medication Instructions Recorded Confirmed Last Taken Type Amlodipine Besylate [Norvasc] 10 mg PO DAILY 09/05/19 02/24/20 09/04/19 History Furosemide [Lasix] 20 mg PO QDAY #30 tablet 09/05/19 02/24/20 Unknown Rx Lisinopril [Zestril] 5 mg PO DAILY #30 tablet 09/05/19 02/24/20 Unknown Rx Metoprolol [Lopressor TAB] 25 mg PO BID #60 tablet 09/05/19 02/24/20 Unknown Rx Active Medications: Generic Name Dose Route Start Last Admin Trade Name Freq PRN Reason Stop Dose Admin Acetaminophen 650 mg 02/26/20 16:23 02/26/20 16:37 Tylenol PO 650 mg Q4H PRN Administration Pain, Mild (1-3)/ Temp >100. Albuterol 2.5 mg 02/27/20 17:55 Proventil IH Q4HRT PRN Shortness Of Breath Albuterol/Ipratropium 1 ampul 02/28/20 12:17 03/04/20 02:25 Duoneb *Not For Prn Use* IH 1 ampul Q6HRT INDU Administration Amlodipine Besylate 10 mg 02/28/20 10:00 03/03/20 09:23 Amlodipine PO 10 mg QDAY INDU Administration Lipase/Protease/Amylase 1 each 03/01/20 08:46 Pancreazeaston Davis 10,500 Unit FEEDTUBE PRN PRN For Clogged Feeding Tube Dextrose 50 ml 02/29/20 08:00 03/01/20 00:20 D50w (25gm) Syringe IV 10 ml Q30MIN PRN Administration HYPOGLYCEMIA Protocol Fentanyl 50 mcg 02/29/20 15:35 03/02/20 12:19 Sublimaze IV 50 mcg Q10MIN PRN Administration ANALGESIA Haloperidol Lactate 5 mg 02/28/20 11:30 02/28/20 11:51 Haldol IV 5 mg Q1H PRN Administration Unrespon. to mult. doses BZD's Heparin Sodium (Porcine) 5,000 unit 02/24/20 14:00 03/04/20 05:07 Heparin SUB-Q 5,000 unit Q8HR INDU Administration Hydralazine HCl 50 mg 02/28/20 14:00 03/04/20 05:07 Apresoline PO 50 mg Q8HR INDU Administration Hydrophilic Ointment 1 applic 02/29/20 15:35 Vaseline Lip Therapy TP Q2HR PRN Dry Lips Nicardipine HCl 50 mg/ Sodium 250 mls @ 25 mls/hr 02/24/20 07:00 02/28/20 12:51 Chloride IV 0 mg/hr TITR INDU 0 mls/hr Titration Protocol 5 MG/HR Fentanyl Citrate 2,000 mcg in 100 mls @ 4.55 mls/hr 02/29/20 16:00 03/04/20 08:50 Fentanyl Drip Premix IV 4 mcg/kg/hr TITR INDU 18.2 mls/hr Titration Protocol 1 MCG/KG/HR Sodium Bicarbonate 150 meq/ 1,150 mls @ 42 mls/hr 03/02/20 10:00 03/03/20 09:25 Dextrose IV 42 mls/hr DIRECT INDU Administration Sodium Chloride 100 mls @ 999 mls/hr 03/03/20 09:08 Nacl 0.9% IV NIKOLAY PRN Hypotension MEROPENEM/NS 1 GRAM/100 ML 1 gram in 100 mls @ 100 mls/hr 03/03/20 18:00 03/03/20 18:49 Merrem/Ns 1 Gram/100 Ml IV 100 mls/hr QPM INDU Administration Protocol Labetalol HCl 10 mg 02/28/20 09:00 03/04/20 06:45 Labetalol IV 10 mg Q4H PRN Administration Hypertension Lorazepam 1 mg 02/28/20 04:20 02/28/20 11:05 Ativan IV 1 mg Q4H PRN Administration Agitation Lorazepam 2 mg 02/28/20 11:30 02/29/20 11:43 Ativan IV 2 mg Q1H PRN Administration CIWA-Ar 8-15 Lorazepam 4 mg 02/28/20 11:30 02/29/20 16:19 Ativan IV 4 mg Q1H PRN Administration CIWA-Ar 16-25 Metoprolol Tartrate 25 mg 02/28/20 10:00 03/03/20 21:02 Metoprolol PO 25 mg BID INDU Administration Midazolam HCl 2 mg 02/29/20 15:35 02/29/20 17:00 Versed IV 2 mg Q10MIN PRN Administration Sedation Multi-Ingred Cream/Lotion/Oil/Oint 1 applic 02/29/20 15:35 Artificial Tears Ophth Oint OU Q4HR PRN Dry Eye(s) Ondansetron HCl 4 mg 02/24/20 06:45 02/25/20 23:33 Zofran IV 4 mg Q8H PRN Administration Nausea And Vomiting Pantoprazole Sodium 40 mg 02/24/20 13:00 03/03/20 09:24 Protonix IV 40 mg QDAY INDU Administration Potassium Chloride 20 meq 03/04/20 10:00 Potassium Chloride FEEDTUBE 03/04/20 10:01 ONCE ONE Simple Syrup 15 ml 03/01/20 08:46 Simple Syrup FEEDTUBE PRN PRN Hypoglycemia Simple Syrup 30 ml 03/01/20 08:46 Simple Syrup FEEDTUBE PRN PRN Hypoglycemia Sodium Bicarbonate 325 mg 03/01/20 08:46 Sodium Bicarbonate FEEDTUBE PRN PRN For Clogged Feeding Tube Sodium Bicarbonate 1,300 mg 03/01/20 16:43 03/04/20 08:49 Sodium Bicarbonate PO 1,300 mg TID INDU Administration Sodium Chloride 10 ml 02/24/20 10:00 03/03/20 21:03 Sodium Chloride Flush Syringe 10 Ml IV 10 ml BID INDU Administration Sodium Chloride 10 ml 02/24/20 06:45 Sodium Chloride Flush Syringe 10 Ml IV PRN PRN LINE FLUSH Tamsulosin HCl 0.4 mg 03/01/20 17:00 03/03/20 09:23 Flomax PO 0.4 mg QDAY INDU Administration
[2020-03-04 08:57] LABS: ABG Methemoglobin 0.3 % (0.0-1.5); ABG Oxygen Saturation 88.6 % (95.0-99.0)
[2020-03-04] MEDS: PANTOPRAZOLE 40 MG INJ IV SCH (09:15)
[2020-03-04] MEDS: TAMSULOSIN 0.4 MG CAP PO SCH (09:15)
[2020-03-04] MEDS: amLODIPine 10 MG TAB PO SCH (09:16)
[2020-03-04] MEDS: METOPROLOL TARTRATE 25 MG TAB PO SCH ×2 (09:16→21:38)
--- NOTE | 2020-03-04 09:24 | Progress Note ---
Assessment and Plan Assessment and plan: --JUANIS/worsening renal function[cr 5.6-6.2] Current Visit: Yes Status: Acute Plan to address problem: Worsening renal function, Initiated hemodialysis yesterday 03/03/2020 Hemodialysis again today per nephrology --Ac.hypoxic resp failure; intubated 02/29/20 Current Visit: Yes Status: Acute Plan to address problem: Mechanical ventilation , supportive care secondary to pancreatitis, lung infiltrate, possible ARDS Fluid overload.acute kidney injury Wean as tolerated and extubate Pulmonary critical following Chest x-ray today; worsening infiltrates --Severe sepsis secondary to pneumonia ; Current Visit: Yes Status: Acute Plan to address problem: Worsening bibasilar opacities on chest x-ray leukocytosis, tachycardia, tachypnea, fever, infiltrate on chest x-ray. Continue Zosyn, follow cultures, ID following -- Acute pancreatitis/lipase trending down Current Visit: Yes Status: Acute Plan to address problem: Mild improvement of symptoms Lipase trending down IV fluid and IV pain medication. Management per GI Hepatitis panel negative Repeat CT abdomen and pelvis 03/01/2020 Interval worsening of acute pancreatitis with increased jessica-pancreatic fat stranding and disorganized fluid Increased intraperitoneal edema simple free fluid collection in the pelvis Local inflammatory changes involving stomach small bowel and bilateral kidneys Interval development of bilateral pleural effusions and associated compressive atelectasis Interval development of diffuse body wall anasarca --Anemia; Current Visit: Yes Status: Acute Plan to address problem: monitor H&H and transfuse as needed. --Severe metabolic encephalopathy/AMS Current Visit: Yes Status: Acute Plan to address problem: Probably secondary alcohol withdrawal symptoms Treat the underlying cause,WA protocol, supportive care --Possible alcohol withdrawal symptoms; Current Visit: Yes Status: Acute Plan to address problem: Discussed with GI Dr. De La Rosa , agree with CIWA closely monitor , Ativan as needed Continue CIWA protocol --Worsening leukocytosis Current Visit: Yes Status: Acute Plan to address problem: Secondary to sepsis due to bibasilar pneumonia, acute pancreatitis, ID and GI following -- Hypertensive emergency POA Current Visit: Yes Status: Acute Plan to address problem: s/p Cardene drip, closely monitor Blood pressures uncontrolled Add hydralazine 25 mg 3 times a day Patient is already on amlodipine and metoprolol IV labetalol, PRN --Severe metabolic acidosis; Current Visit: Yes Status: Acute Plan to address problem: Management per nephrology --Medical noncompliance Current Visit: Yes Status: Acute Plan to address problem: Patient was counseled upon admission -- DVT prophylaxis Current Visit: Yes Status: Acute Plan to address problem: Patient placed on subcutaneous heparin. --Obesity; BMI 37.9 Current Visit: Yes Status: Acute Plan to address problem: patient needs weight reduction when medically stable. -- Full code status Current Visit: Yes Status: Acute Follow GI and pulmonary evaluation and recommendations We will closely monitor the patient and adjust the management as needed Closely monitor the patient and adjust management as needed. Patient is critically ill with multiple medical problems Prognosis poor, family aware The high probability of a clinically significant, sudden or life threatening deterioration of the [GI, CVS, renal, respiratory and metabolic] system(s) required my full and direct attention, intervention and personal management. The aggregate critical care time was [35] minutes. This time is in addition to time spent performing reported procedures but includes the following: [x] Data Review and interpretation [x] Patient assessment and monitoring of vital signs [x] Documentation [x] Medication orders and management 03/03; patient had worsening renal function, considering Vas-Cath placement and initiating hemodialysis Patient is critically ill with multiple organ involvement, family aware 03/04; patient remains critically ill on vent, initiated dialysis, poor prognosis multiorgan involvement Countersinker recommendations noted and appreciated History Interval history: I have seen and examined the patient at the bedside this morning Patient's chart and medications reviewed Patient remains intubated on ventilatory support Received hemodialysis yesterday Scheduled for HD today Vital signs noted Hospitalist Physical - Constitutional Vitals: Temp Pulse Resp BP Pulse Ox 99.9 F H 99 H 27 H 168/87 98 03/04/20 07:58 03/04/20 09:16 03/04/20 09:01 03/04/20 09:16 03/04/20 08:37 General appearance: Present: no acute distress, well-nourished, other (Intubated and sedated. Moans with abd pressure.) - EENT Eyes: Present: PERRL, EOM intact - Neck Neck: Present: supple, other (ET tube and Dobbhoff in place) - Respiratory Respiratory effort: normal Respiratory: bilateral: diminished, rhonchi, negative: rales, wheezing - Cardiovascular Rhythm: regular Heart Sounds: Present: S1 & S2 - Extremities Extremities: no ischemia Extremity abnormal: edema - Abdominal General gastrointestinal: soft, non-tender, non-distended, normal bowel sounds - Integumentary Integumentary: Present: clear, warm - Psychiatric Psychiatric: other (Intubated on vent) - Neurologic Neurologic: other (Intubated on vent) Results - Labs CBC & Chem 7: 03/04/20 04:05 03/04/20 04:05 Labs: Laboratory Last Values WBC 30.1 K/mm3 (4.5-11.0) H 03/04/20 04:05 RBC 3.44 M/mm3 (3.65-5.03) L 03/04/20 04:05 Hgb 8.2 gm/dl (10.1-14.3) L 03/04/20 04:05 Hct 25.2 % (30.3-42.9) L 03/04/20 04:05 MCV 73 fl (79-97) L 03/04/20 04:05 MCH 24 pg (28-32) L 03/04/20 04:05 MCHC 32 % (30-34) 03/04/20 04:05 RDW 20.7 % (13.2-15.2) H 03/04/20 04:05 Plt Count 554 K/mm3 (140-440) H 03/04/20 04:05 Lymph % (Auto) 3.3 % (13.4-35.0) L 03/04/20 04:05 [place] % (Auto) 6.7 % (0.0-7.3) 03/04/20 04:05 Eos % (Auto) 1.1 % (0.0-4.3) 03/04/20 04:05 Baso % (Auto) 0.3 % (0.0-1.8) 03/04/20 04:05 Lymph # (Auto) 1.0 K/mm3 (1.2-5.4) L 03/04/20 04:05 [place] # (Auto) 2.0 K/mm3 (0.0-0.8) H 03/04/20 04:05 Eos # (Auto) 0.3 K/mm3 (0.0-0.4) 03/04/20 04:05 Baso # (Auto) 0.1 K/mm3 (0.0-0.1) 03/04/20 04:05 Add Manual Diff Complete 03/03/20 04:36 Total Counted 100 03/03/20 04:36 Seg Neutrophils % 88.6 % (40.0-70.0) H 03/04/20 04:05 Seg Neuts % (Manual) 82.0 % (40.0-70.0) H 03/03/20 04:36 Band Neutrophils % 6.0 % 03/03/20 04:36 Lymphocytes % (Manual) 4.0 % (13.4-35.0) L 03/03/20 04:36 Reactive Lymphs % (Man) 0 % 03/03/20 04:36 Monocytes % (Manual) 7.0 % (0.0-7.3) 03/03/20 04:36 Eosinophils % (Manual) 1.0 % (0.0-4.3) 03/03/20 04:36 Basophils % (Manual) 0 % (0.0-1.8) 03/03/20 04:36 Metamyelocytes % 0 % 03/03/20 04:36 Myelocytes % 0 % 03/03/20 04:36 Promyelocytes % 0 % 03/03/20 04:36 Blast Cells % 0 % 03/03/20 04:36 Nucleated RBC % Not Reportable 03/03/20 04:36 Seg Neutrophils # 26.6 K/mm3 (1.8-7.7) H 03/04/20 04:05 Seg Neutrophils # Man 23.0 K/mm3 (1.8-7.7) H 03/03/20 04:36 Band Neutrophils # 1.7 K/mm3 03/03/20 04:36 Lymphocytes # (Manual) 1.1 K/mm3 (1.2-5.4) L 03/03/20 04:36 Abs React Lymphs (Man) 0.0 K/mm3 03/03/20 04:36 Monocytes # (Manual) 2.0 K/mm3 (0.0-0.8) H 03/03/20 04:36 Eosinophils # (Manual) 0.3 K/mm3 (0.0-0.4) 03/03/20 04:36 Basophils # (Manual) 0.0 K/mm3 (0.0-0.1) 03/03/20 04:36 Metamyelocytes # 0.0 K/mm3 03/03/20 04:36 Myelocytes # 0.0 K/mm3 03/03/20 04:36 Promyelocytes # 0.0 K/mm3 03/03/20 04:36 Blast Cells # 0.0 K/mm3 03/03/20 04:36 WBC Morphology Not Reportable 03/03/20 04:36 Hypersegmented Neuts Not Reportable 03/03/20 04:36 Hyposegmented Neuts Not Reportable 03/03/20 04:36 Hypogranular Neuts Not Reportable 03/03/20 04:36 Smudge Cells Not Reportable 03/03/20 04:36 Toxic Granulation Not Reportable 03/03/20 04:36 Toxic Vacuolation Not Reportable 03/03/20 04:36 Dohle Bodies Not Reportable 03/03/20 04:36 Pelger-Huet Anomaly Not Reportable 03/03/20 04:36 Maia Rods Not Reportable 03/03/20 04:36 Platelet Estimate Consistent w auto 03/03/20 04:36 Clumped Platelets Not Reportable 03/03/20 04:36 Plt Clumps, EDTA Not Reportable 03/03/20 04:36 Large Platelets Not Reportable 03/03/20 04:36 Giant Platelets Not Reportable 03/03/20 04:36 Platelet Satelliting Not Reportable 03/03/20 04:36 Plt Morphology Comment Not Reportable 03/03/20 04:36 RBC Morphology Not Reportable 03/03/20 04:36 Dimorphic RBCs Not Reportable 03/03/20 04:36 Polychromasia Few 03/03/20 04:36 Hypochromasia 1+ 03/03/20 04:36 Poikilocytosis Not Reportable 03/03/20 04:36 Anisocytosis 1+ 03/03/20 04:36 Microcytosis Not Reportable 03/03/20 04:36 Macrocytosis Not Reportable 03/03/20 04:36 Spherocytes Not Reportable 03/03/20 04:36 Pappenheimer Bodies Not Reportable 03/03/20 04:36 Sickle Cells Not Reportable 03/03/20 04:36 Target Cells Few 03/03/20 04:36 Tear Drop Cells Not Reportable 03/03/20 04:36 Ovalocytes Few 03/03/20 04:36 Helmet Cells Not Reportable 03/03/20 04:36 Jackson-Burchard Bodies Not Reportable 03/03/20 04:36 [place] Rings Not Reportable 03/03/20 04:36 [place] Cells Not Reportable 03/03/20 04:36 Bite Cells Not Reportable 03/03/20 04:36 Crenated Cell Not Reportable 03/03/20 04:36 Elliptocytes Not Reportable 03/03/20 04:36 Acanthocytes (Spur) Not Reportable 03/03/20 04:36 Rouleaux Not Reportable 03/03/20 04:36 Hemoglobin C Crystals Not Reportable 03/03/20 04:36 Schistocytes Not Reportable 03/03/20 04:36 Malaria parasites Not Reportable 03/03/20 04:36 Edgardo Bodies Not Reportable 03/03/20 04:36 Hem Pathologist Commnt No 03/03/20 04:36 PT 13.7 Sec. (12.2-14.9) 02/25/20 03:49 INR 1.03 (0.87-1.13) 02/25/20 03:49 ABG pH 7.422 pH Units (7.350-7.450) 03/04/20 03:43 POC ABG pCO2 31.8 mmHg (32.0-48.0) L 03/03/20 04:00 ABG pCO2 42.7 mm Hg 03/04/20 03:43 POC ABG pO2 83.1 mmHg (83-108) 03/03/20 04:00 ABG pO2 57.4 mm Hg (80.0-90.0) L 03/04/20 03:43 POC ABG HCO3 17.7 03/03/20 04:00 ABG HCO3 27.2 mmol/L (20.0-26.0) H 03/04/20 03:43 ABG O2 Saturation 88.6 % (95.0-99.0) L 03/04/20 03:43 ABG O2 Content 10.6 (0.0-44) 03/01/20 04:05 POC ABG Base Excess -6.9 03/03/20 04:00 ABG Base Excess 2.5 mmol/L (-2.0-3.0) 03/04/20 03:43 ABG Hemoglobin 8.6 (12.0-17.5) L 03/03/20 04:00 ABG Oxyhemoglobin 94.7 (94-98) 03/03/20 04:00 ABG Carboxyhemoglobin 1.8 % (0.0-5.0) 03/01/20 04:05 ABG Methemoglobin 0.3 % (0.0-1.5) 03/04/20 03:43 Oxyhemoglobin 96.3 % (95.0-99.0) 03/01/20 04:05 Carboxyhemoglobin 0.8 (0.5-1.5) 03/03/20 04:00 FiO2 30.0 % 03/04/20 03:43 Sodium 144 mmol/L (137-145) 03/04/20 04:05 Potassium 3.3 mmol/L (3.6-5.0) L 03/04/20 04:05 Chloride 102.7 mmol/L (98-107) 03/04/20 04:05 Carbon Dioxide 24 mmol/L (22-30) D 03/04/20 04:05 Anion Gap 21 mmol/L 03/04/20 04:05 BUN 65 mg/dL (7-17) H 03/04/20 04:05 Creatinine 5.3 mg/dL (0.6-1.2) H 03/04/20 04:05 Estimated GFR 11 ml/min 03/04/20 04:05 BUN/Creatinine Ratio 12 % 03/04/20 04:05 Glucose 152 mg/dL (65-100) H 03/04/20 04:05 POC Glucose 136 (70-105) H 03/04/20 05:26 Lactic Acid 0.90 mmol/L (0.7-2.0) 02/27/20 19:33 Calcium 8.8 mg/dL (8.4-10.2) 03/04/20 04:05 Phosphorus 6.10 mg/dL (2.5-4.5) H 03/01/20 04:37 Magnesium 2.20 mg/dL (1.7-2.3) 03/04/20 04:05 Total Bilirubin 1.00 mg/dL (0.1-1.2) 03/04/20 04:05 Direct Bilirubin 0.7 mg/dL (0-0.2) H 03/04/20 04:05 Indirect Bilirubin 0.3 mg/dL 03/04/20 04:05 AST 24 units/L (5-40) 03/04/20 04:05 ALT 15 units/L (7-56) 03/04/20 04:05 Alkaline Phosphatase 114 units/L (35-129) 03/04/20 04:05 C-Reactive Protein 36.50 mg/dL (0.00-1.30) H 03/01/20 11:06 Serum Total Protein 6.3 g/dL (6.1-8.1) 02/26/20 04:39 Total Protein 7.1 g/dL (6.3-8.2) 03/04/20 04:05 Albumin 2.5 g/dL (3.9-5) L 03/04/20 04:05 Albumin/Globulin Ratio 0.5 % 03/04/20 04:05 Owxkb-6-Kuegxuoew 0.7 g/dL (0.2-0.3) H 02/26/20 04:39 Yxvly-7-Oarnhdsgy 0.8 g/dL (0.5-0.9) 02/26/20 04:39 Beta Globulins 0.4 g/dL (0.2-0.5) 02/26/20 04:39 Gamma Globulins 1.2 g/dL (0.8-1.7) 02/26/20 04:39 Abnorm Protein Band 1 see below 02/26/20 04:39 PEP Interpretation see below H 02/26/20 04:39 Triglycerides 118 mg/dL (2-149) 02/26/20 04:39 Lipase 119 units/L (13-60) H 03/03/20 04:36 HCG, Qual Negative (Negative) 02/24/20 02:53 PTH Intact 911.3 pg/mL (15-65) H 02/26/20 08:15 Urine Color Yellow (Yellow) 02/24/20 Unknown Urine Turbidity Clear (Clear) 02/24/20 Unknown Urine pH 6.0 (5.0-7.0) 02/24/20 Unknown Ur Specific [place] 1.020 (1.003-1.030) 02/24/20 Unknown Urine Protein >500 mg/dL (Negative) 02/24/20 Unknown Urine Glucose (UA) 50 mg/dL (Negative) 02/24/20 Unknown Urine Ketones Neg mg/dL (Negative) 02/24/20 Unknown Urine Blood Lg (Negative) 02/24/20 Unknown Urine Nitrite Neg (Negative) 02/24/20 Unknown Urine Bilirubin Neg (Negative) 02/24/20 Unknown Urine Urobilinogen < 2.0 mg/dL (<2.0) 02/24/20 Unknown Ur Leukocyte Esterase Neg (Negative) 02/24/20 Unknown Urine WBC (Auto) 11.0 /HPF (0.0-6.0) H 02/24/20 Unknown Urine RBC (Auto) 149.0 /HPF (0.0-6.0) 02/24/20 Unknown U Epithel Cells (Auto) 5.0 /HPF (0-13.0) 02/24/20 Unknown Urine Bacteria (Auto) 1+ /HPF (Negative) 02/24/20 Unknown Urine Mucus Few /HPF 02/24/20 Unknown Urine Creatinine 161.0 mg/dL (0.1-20.0) H 02/25/20 22:55 Protein/Creatinin Ratio 0.93 02/25/20 22:55 Urine Total Protein 150 mg/dL (5-11.8) H 02/25/20 22:55 ZINA Screen Positive (Negative) H 02/26/20 04:39 Proteinase 3 (PR3) Ab <1.0 AI (<1.0) 02/26/20 04:39 Myeloperoxidase Ab <1.0 AI (<1.0) 02/26/20 04:39 Complement C3 153 mg/dL (83-193) 02/26/20 04:39 Complement C4 35 mg/dL (15-57) 02/26/20 04:39 Hepatitis A IgM Ab Non-reactive (NonReactive) 03/03/20 12:34 Hep Bs Antigen Non-reactive (Negative) 03/03/20 12:34 Hep B Core IgM Ab Non-reactive (NonReactive) 03/03/20 12:34 Hepatitis C Antibody Non-reactive (NonReactive) 03/03/20 12:34 Blood Type AB POSITIVE 03/01/20 18:30 Antibody Screen Negative 03/01/20 18:30 Crossmatch See Detail 03/01/20 18:30 Microbiology: Microbiology 02/29/20 Unknown Tracheal Aspirate Sputum Culture - Final - Diagnostic Impressions Diagnostic Impressions: Echocardiogram 02/26/20 09:11 Transthoracic Echocardiogram Indication: Cardiomegaly BP: 149/92 HR: 122 Conclusions *Global left ventricular systolic function is normal. *The estimated ejection fraction is 60-65%. *Moderate to severe concentric left ventricular hypertrophy is observed. *The left atrium is mild to moderately dilated. *The aortic valve leaflets are moderately thickened. *A mean gradient of 22.39 mmHg across the outflow tract is likely not due to but hyperdynamic flow and LVH. *There is trace tricuspid regurgitation. Findings Left Ventricle: The left ventricular chamber size is normal. Moderate to severe concentric left ventricular hypertrophy is observed. Global left ventricular systolic function is normal. The estimated ejection fraction is 60-65%. Left Atrium: The left atrium is mild to moderately dilated. Right Ventricle: The right ventricular cavity size is normal. The right ventricular global systolic function is normal. Right Atrium: The right atrial cavity size is normal. Aortic Valve: The aortic valve leaflets are moderately thickened. There is no evidence of aortic regurgitation. The mean gradient of the aortic valve is 22.39 mmHg. Mitral Valve: The mitral valve leaflets are mildly thickened. There is trace of mitral regurgitation. There is no evidence of mitral stenosis. Tricuspid Valve: There is trace tricuspid regurgitation. No pulmonary hypertension is noted. Pulmonic Valve: There is trace pulmonic regurgitation. Pericardium: There is no pericardial effusion. Aorta: There is no dilatation of the ascending aorta. There is no dilatation of the aortic root. Venous: The inferior vena cava appears normal in size. Measurements Chambers 2D Name Value Normal Range IVSd (2D) 1.8 cm (0.6 - 1.1) LVPWd (2D) 1.74 cm (0.6 - 1.1) LVIDd (2D) 4.57 cm (3.7 - 5.6) LVIDs (2D) 2.73 cm (2 - 3.8) LV FS (2D) 40.27 % - EF Teichholz (2D) 71.04 % - Ao root diameter (2D) 2.79 cm (2 - 3.7) Volumes/Mass Name Value Normal Range LA ESV SP 4CH (A/L) 54.18 ml - LA ESV SP 2CH (A/L) 61.84 ml - LA ESV BP (A/L) 58.1 ml - LA ESV BP (A/L) index 30.74 ml/m2 - LA ESV SP 4CH (MOD) 52.89 ml - LA ESV SP 2CH (MOD) 60.65 ml - LA ESV BP (MOD) 56.77 ml - LA ESV BP (MOD) index 30.04 ml/m2 - LV EDV SP 4CH (MOD) 164.2 ml - LV ESV SP 4CH (MOD) 58.04 ml - EF SP 4CH (MOD) 64.65 % - Diastolic/Systolic Function Name Value Normal Range MV E-wave Vmax 1.38 m/sec - MV deceleration time 92.78 msec - MV A-wave Vmax 1.44 m/sec - MV E:A ratio 0.95 ratio - Aortic Valve Name Value Normal Range AV Vmax 3.08 m/sec - AV VTI 36.74 cm - AV peak gradient 37.98 mmHg - AV mean gradient 22.39 mmHg - LVOT diameter 2.01 cm - LVOT Vmax 2.45 m/sec - LVOT VTI 29.85 cm - LVOT peak gradient 24.04 mmHg - LVOT mean gradient 11.11 mmHg - SV LVOT 94.73 ml - JADA (continuity Vmax) 2.52 cm2 - JADA (continuity VTI) 2.58 cm2 - Ascending Ao 2.64 cm - Mitral Valve Name Value Normal Range MV PHT 37.88 msec - MVA (PHT) 5.81 cm2 - Tricuspid Valve Name Value Normal Range IVC diameter 1.93 cm (1.2 - 2.3) Pulmonic Valve/Qp:Qs Name Value Normal Range PV Vmax 2.83 m/sec - PV VTI 45.88 cm - PV peak gradient 32.06 mmHg - PV mean gradient 16.11 mmHg - MO end-diastolic Vmax 0.81 m/sec - RVOT Vmax 1.82 m/sec - RVOT VTI 25.12 cm - RVOT peak gradient 13.3 mmHg - Franks/IV: Voiding Method External Female Catheter IV Catheter Type [Right VAS Cath Internal Jugular] IV Catheter Type [Left Upper INT / Saline Lock arm] IV Catheter Type [Right Upper INT / Saline Lock arm] IV Catheter Type [Right INT / Saline Lock Forearm] IV Catheter Type [Right Wrist] Peripheral IV IV Catheter Type [Right Peripheral IV Antecubital] Active Medications - Current Medications Current Medications: Generic Name Dose Route Start Last Admin Trade Name Freq PRN Reason Stop Dose Admin Acetaminophen 650 mg 02/26/20 16:23 02/26/20 16:37 Tylenol PO 650 mg Q4H PRN Administration Pain, Mild (1-3)/ Temp >100. Albuterol 2.5 mg 02/27/20 17:55 Proventil IH Q4HRT PRN Shortness Of Breath Albuterol/Ipratropium 1 ampul 02/28/20 12:17 03/04/20 09:01 Duoneb *Not For Prn Use* IH 1 ampul Q6HRT INDU Administration Amlodipine Besylate 10 mg 02/28/20 10:00 03/04/20 09:16 Amlodipine PO 10 mg QDAY INDU Administration Lipase/Protease/Amylase 1 each 03/01/20 08:[address] 10,500 Unit FEEDTUBE PRN PRN For Clogged Feeding Tube Dextrose 50 ml 02/29/20 08:00 03/01/20 00:20 D50w (25gm) Syringe IV 10 ml Q30MIN PRN Administration HYPOGLYCEMIA Protocol Fentanyl 50 mcg 02/29/20 15:35 03/02/20 12:19 Sublimaze IV 50 mcg Q10MIN PRN Administration ANALGESIA Haloperidol Lactate 5 mg 02/28/20 11:30 02/28/20 11:51 Haldol IV 5 mg Q1H PRN Administration Unrespon. to mult. doses BZD's Heparin Sodium (Porcine) 5,000 unit 02/24/20 14:00 03/04/20 05:07 Heparin SUB-Q 5,000 unit Q8HR INDU Administration Hydralazine HCl 50 mg 02/28/20 14:00 03/04/20 05:07 Apresoline PO 50 mg Q8HR INDU Administration Hydrophilic Ointment 1 applic 02/29/20 15:35 Vaseline Lip Therapy TP Q2HR PRN Dry Lips Nicardipine HCl 50 mg/ Sodium 250 mls @ 25 mls/hr 02/24/20 07:00 02/28/20 12:51 Chloride IV 0 mg/hr TITR INDU 0 mls/hr Titration Protocol 5 MG/HR Fentanyl Citrate 2,000 mcg in 100 mls @ 4.55 mls/hr 02/29/20 16:00 03/04/20 08:50 Fentanyl Drip Premix IV 3 mcg/kg/hr TITR INDU 13.65 mls/hr Titration Protocol 1 MCG/KG/HR Sodium Chloride 100 mls @ 999 mls/hr 03/03/20 09:08 Nacl 0.9% IV NIKOLAY PRN Hypotension MEROPENEM/NS 1 GRAM/100 ML 1 gram in 100 mls @ 100 mls/hr 03/03/20 18:00 03/03/20 18:49 Merrem/Ns 1 Gram/100 Ml IV 100 mls/hr QPM INDU Administration Protocol Sodium Chloride 100 mls @ 999 mls/hr 03/04/20 08:56 Nacl 0.9% IV NIKOLAY PRN Hypotension Labetalol HCl 10 mg 02/28/20 09:00 03/04/20 06:45 Labetalol IV 10 mg Q4H PRN Administration Hypertension Lorazepam 1 mg 02/28/20 04:20 02/28/20 11:05 Ativan IV 1 mg Q4H PRN Administration Agitation Lorazepam 2 mg 02/28/20 11:30 02/29/20 11:43 Ativan IV 2 mg Q1H PRN Administration CIWA-Ar 8-15 Lorazepam 4 mg 02/28/20 11:30 02/29/20 16:19 Ativan IV 4 mg Q1H PRN Administration CIWA-Ar 16-25 Metoprolol Tartrate 25 mg 02/28/20 10:00 03/04/20 09:16 Metoprolol PO 25 mg BID INDU Administration Midazolam HCl 2 mg 02/29/20 15:35 02/29/20 17:00 Versed IV 2 mg Q10MIN PRN Administration Sedation Multi-Ingred Cream/Lotion/Oil/Oint 1 applic 02/29/20 15:35 Artificial Tears Ophth Oint OU Q4HR PRN Dry Eye(s) Ondansetron HCl 4 mg 02/24/20 06:45 02/25/20 23:33 Zofran IV 4 mg Q8H PRN Administration Nausea And Vomiting Pantoprazole Sodium 40 mg 02/24/20 13:00 03/04/20 09:15 Protonix IV 40 mg QDAY INDU Administration Potassium Chloride 20 meq 03/04/20 10:00 03/04/20 09:15 Potassium Chloride FEEDTUBE 03/04/20 10:01 20 meq ONCE ONE Administration Simple Syrup 15 ml 03/01/20 08:46 Simple Syrup FEEDTUBE PRN PRN Hypoglycemia Simple Syrup 30 ml 03/01/20 08:46 Simple Syrup FEEDTUBE PRN PRN Hypoglycemia Sodium Bicarbonate 325 mg 03/01/20 08:46 Sodium Bicarbonate FEEDTUBE PRN PRN For Clogged Feeding Tube Sodium Bicarbonate 1,300 mg 03/01/20 16:43 03/04/20 08:49 Sodium Bicarbonate PO 1,300 mg TID INDU Administration Sodium Chloride 10 ml 02/24/20 10:00 03/04/20 09:17 Sodium Chloride Flush Syringe 10 Ml IV 10 ml BID INDU Administration Sodium Chloride 10 ml 02/24/20 06:45 Sodium Chloride Flush Syringe 10 Ml IV PRN PRN LINE FLUSH Tamsulosin HCl 0.4 mg 03/01/20 17:00 03/04/20 09:15 Flomax PO 0.4 mg QDAY INDU Administration Nutrition/Malnutrition Assess - Dietary Evaluation Nutrition/Malnutrition Findings: Nutrition Notes Start: 02/24/20 13:42 Freq: Status: Active Protocol: Document 03/02/20 15:05 (Rec: 03/02/20 15:09 [id number]) Co-Sign 03/02/20 15:05 LP Nutrition Notes Need for Assessment generated from: MD Order Initial or Follow up Reassessment Current Diagnosis Acute Kidney Injury,Sepsis, Hypertension,Respiratory Failure,Hyperlipidemia Other Pertinent Diagnosis Acute pancreatitis Current Diet Nepro 1.8 at 35 ml/hr Labs/Tests BUN 85 Cr 5.6 Mg 2.5 Pertinent Medications Reviewed Height 5 ft 1 in Weight 91 kg [place] Body Weight (kg) 47.72 BMI 37.9 Weight Status Obese Subjective/Other Information MD consult for TF. Per chart TF stopped this AM. Per MD start TF at 10ml/hr. Percent of energy/protein needs met: 0%/0% Burn Absent Trauma Absent GI Symptoms None Current % PO Negligible Minimum of two criteria No Fluid Accumulation Moderate to Severe (severe) #2 Nutrition Diagnosis Inadequate oral intake Diagnosis Progress(for reassessment Continues documentation) #1 Nutrition Diagnosis Food and nutrition-related knowledge deficit Diagnosis Progress(for reassessment Continues documentation) Is patient on ventilator? Yes Is Patient Ambulatory and/or Out of Bed No REE-([place]-St. Jeor-confined to bed) 1823.604 Kcal/Kg value to use for calculation 16 Approximate Energy Requirements Using 1456 kcal/Kg Calculation Used for Recommendations Kcal/kg Additional Notes Pro: 96g (>2g/kg using IBW 48kg) Fluid: 1ml/kcal Nutrition Intervention Change Diet Order: TF Nutrition Support: Nepro 1.8 at 35ml/hr Flush 150ml q4h Kcal 1,512 Protein (gm) 68 Fluid (mL) 611 Goal #1 TF start/tolerance Anticipated Discharge Needs: Undetermined at this time Follow-Up By: 03/04/20 Additional Comments F/U for TF start/tolerance
[2020-03-04] MEDS ORDERED: POTASSIUM CHLORIDE 20 MEQ PACKET FEEDTUBE ONE (10:00)
--- NOTE | 2020-03-04 10:27 | Progress Note ---
Assessment and Plan Cultures: Urine culture grew 10-100,000 usual xavier. Blood culture 02/26/2020 no growth 02/29/2020 sputum culture: rare usual xavier Assessment: 39 years old female with history of hypertension, previous kidney stone, hyperlipidemia and obesity admitted on 02/24/2020 due to a week history of severe epigastric abdominal pain radiated to the right flank and back: #Acute sepsis: Likely secondary to severe pancreatitis and related complications. #Acute severe pancreatitis: Unclear etiology. Initial non-contrasted CT showed no evidence of necrosis or pseudocyst or abscess formation. No evidence of infected necrotic pancreatitis. Repeat CT with interval worsening of inflammatory changes to the pancreatic parenchyma extending now to the pancreatic body with significant interval worsening of peripancreatic fat stranding and surrounding disorganized fluid. #Acute renal failure: now requiring dialysis. Nephrology on board. #Acute respiratory hypoxic failure: on the vent. #?Alcohol abuse Recommendations: -sepsis/SIRS is likely from severe acute pancreatitis and related complications, continue with IV Meropenem, renally dosed -may need evaluation for pancreatic necrosis. Renal failure limits ability to give IV contrast. Defer to GI and nephrology Louie Graves MD, FACP [facility] ([facility]) C: [phone] O: [phone] F: [phone] Subjective Date of service: 03/04/20 Principal diagnosis: HTNsive urgency; Morbid obesity; Ac. pancreatitis; Abdo gold pain Interval history: Low grade fever. Remains intubated on the vent. Getting HD. Seems a little restless Objective - Exam Narrative Exam: Physical Exam: Constitutional: sedated, intubated, on the vent Head, Ears, Nose: Normocephalic, atraumatic. External ears, nose normal Eyes: Conjunctivae/corneas clear. No icterus. No ptosis. Neck: intubated Oral: intubated Cardiovascular: S1, S2 + Respiratory: AE fair but reduced in the bases GI: distended, bowel sounds hypoactive Musculoskeletal: No pedal edema, no cyanosis. HD cath + Skin: No rash or abscess Hem/Lymphatic: No palpable cervical or supraclavicular nodes. No lymphangitis Psych: no agitation, but restless on the vent Neurological: sedated, intubated, on the vent, exam limited - Constitutional Vitals: Vital Signs Temp Pulse Resp BP Pulse Ox 99.9 F H 99 H 27 H 168/87 98 03/04/20 07:58 03/04/20 09:16 03/04/20 09:01 03/04/20 09:16 03/04/20 08:37 Temperature -Last 24 Hours Temperature 99.9 F Temperature 100.6 F Temperature 100.2 F Temperature 100.1 F Temperature 99.1 F Temperature 98.4 F Temperature 99.8 F Temperature 99.0 F - Labs CBC & Chem 7: 03/04/20 04:05 03/04/20 04:05 Labs: Abnormal lab results 03/03/20 03/03/20 03/03/20 Range/Units 12:48 17:48 23:43 WBC (4.5-11.0) K/mm3 RBC (3.65-5.03) M/mm3 Hgb (10.1-14.3) gm/dl Hct (30.3-42.9) % MCV (79-97) fl MCH (28-32) pg RDW (13.2-15.2) % Plt Count (140-440) K/mm3 Lymph % (Auto) (13.4-35.0) % Lymph # (Auto) (1.2-5.4) K/mm3 [place] # (Auto) (0.0-0.8) K/mm3 Seg Neutrophils % (40.0-70.0) % Seg Neutrophils # (1.8-7.7) K/mm3 ABG pO2 (80.0-90.0) mm Hg ABG HCO3 (20.0-26.0) mmol/L ABG O2 Saturation (95.0-99.0) % Potassium (3.6-5.0) mmol/L BUN (7-17) mg/dL Creatinine (0.6-1.2) mg/dL Glucose (65-100) mg/dL POC Glucose 131 H 113 H 149 H (70-105) Direct Bilirubin (0-0.2) mg/dL Albumin (3.9-5) g/dL 03/04/20 03/04/20 03/04/20 Range/Units 03:43 04:05 04:05 WBC 30.1 H (4.5-11.0) K/mm3 RBC 3.44 L (3.65-5.03) M/mm3 Hgb 8.2 L (10.1-14.3) gm/dl Hct 25.2 L (30.3-42.9) % MCV 73 L (79-97) fl MCH 24 L (28-32) pg RDW 20.7 H (13.2-15.2) % Plt Count 554 H (140-440) K/mm3 Lymph % (Auto) 3.3 L (13.4-35.0) % Lymph # (Auto) 1.0 L (1.2-5.4) K/mm3 [place] # (Auto) 2.0 H (0.0-0.8) K/mm3 Seg Neutrophils % 88.6 H (40.0-70.0) % Seg Neutrophils # 26.6 H (1.8-7.7) K/mm3 ABG pO2 57.4 L (80.0-90.0) mm Hg ABG HCO3 27.2 H (20.0-26.0) mmol/L ABG O2 Saturation 88.6 L (95.0-99.0) % Potassium 3.3 L (3.6-5.0) mmol/L BUN 65 H (7-17) mg/dL Creatinine 5.3 H (0.6-1.2) mg/dL Glucose 152 H (65-100) mg/dL POC Glucose (70-105) Direct Bilirubin 0.7 H (0-0.2) mg/dL Albumin 2.5 L (3.9-5) g/dL 03/04/20 Range/Units 05:26 WBC (4.5-11.0) K/mm3 RBC (3.65-5.03) M/mm3 Hgb (10.1-14.3) gm/dl Hct (30.3-42.9) % MCV (79-97) fl MCH (28-32) pg RDW (13.2-15.2) % Plt Count (140-440) K/mm3 Lymph % (Auto) (13.4-35.0) % Lymph # (Auto) (1.2-5.4) K/mm3 [place] # (Auto) (0.0-0.8) K/mm3 Seg Neutrophils % (40.0-70.0) % Seg Neutrophils # (1.8-7.7) K/mm3 ABG pO2 (80.0-90.0) mm Hg ABG HCO3 (20.0-26.0) mmol/L ABG O2 Saturation (95.0-99.0) % Potassium (3.6-5.0) mmol/L BUN (7-17) mg/dL Creatinine (0.6-1.2) mg/dL Glucose (65-100) mg/dL POC Glucose 136 H (70-105) Direct Bilirubin (0-0.2) mg/dL Albumin (3.9-5) g/dL
--- NOTE | 2020-03-04 12:42 | Progress Note ---
Assessment and Plan Acute Hypoxemic Respiratory Failure on MVS Severe Sepsis Acute Toxic-Metabolic Encephalopathy Hypertensive urgency Morbid obesity Acute pancreatitis, abdominal pain Medical non compliance Oropharyngeal Dysphagia - reduced set rate to 20 - add scopolamine patch - electrolytes replaced earlier - CT abd/pelvis with oral contrast ordered - continue care as below otherwise; - HD/UF for toxin and volume clearance - daily SAT and SBT assessment as tolerated - continue fentanyl for sedation +/- propofol - accuchecks with glycemic control per SSI (While critically ill target blood glucose of 140-180 mg/dL; avoid hypoglycemia) - sedation prn for target RASS -1 to -2 - continue to wean supplemental oxygen for target O2 sat's > 90% acutely - VAP bundle addressed - continue lung protective strategies - continue bronchodilators with pulmonary hygiene per RT - wean per pulmonary driven protocols otherwise - continue enteral nutritiuon at goal rate as tolerated - continue Zosyn; de-escalate per ID rec's - continue Nicardipine for her blood pressure management till taking orally (target BP < 160 mmHg) - JUANIS per water resources project manager - prn bladder scans +/- straight cath in short term - Evaluation for sleep apnea as an outpatient - VTE prophylaxis - prn Analgesia per CPOT score - avoid nephrotoxins, renally dose all medications - Maintenance of sleep-wake cycle, avoid delirium - G.I. & VTE prophylaxis - PT/OT/ROM exercises - mobility protocols for pressure ulcer prophylaxis - Monitor hemodynamics closely - continue other care per attending / other consultants - discharge planning ongoing concurrently ..... re-evaluate in am & prn CONDITION: CRITICAL PROGNOSIS: GUARDED CODE STATUS: FULL CODE The high probability of a clinically significant, sudden or life-threatening deterioration of the [respiratory, cardiovascular & GI] system(s) required my full and direct attention, intervention and personal management. The aggregate critical care time was [34] minutes without overlap. Time includes spent on; [x] Data Review and interpretation [x] Patient assessment and monitoring of vital signs [x] Documentation [x] Medication orders and management Subjective Date of service: 03/04/20 Principal diagnosis: HTNsive urgency; Morbid obesity; Ac. pancreatitis; Abdominal pain Interval history: Patient is seen today for: Hypertensive urgency; Morbid obesity; Acute pancrea titis; abdominal pain; Medical non compliance; Acute Toxic Metabolic Encephalopathy Seen and examined at bedside; 24hour events reviewed; nursing and respiratory care staff consulted; no adverse overnight events reported to me; resting peacefully in bed; remains on MVS; tolerating HD/UF well so far; tentatively for repeat CT abd/pelvis with oral contrast Objective Vital Signs - 12hr 03/04/20 03/04/20 03/04/20 01:00 01:30 02:00 Temperature Pulse Rate 93 H 92 H 111 H Pulse Rate [ Anterior Bilateral Throughout] Pulse Rate [ From Monitor] Respiratory 25 H 25 H 22 Rate Respiratory Rate [Anterior Bilateral Throughout] Blood Pressure 138/82 141/81 146/85 O2 Sat by Pulse 98 98 95 Oximetry 03/04/20 03/04/20 03/04/20 02:25 02:30 03:00 Temperature Pulse Rate 113 H 106 H Pulse Rate [ 115 H Anterior Bilateral Throughout] Pulse Rate [ From Monitor] Respiratory 20 26 H Rate Respiratory 27 H Rate [Anterior Bilateral Throughout] Blood Pressure 155/92 O2 Sat by Pulse 97 97 Oximetry 03/04/20 03/04/20 03/04/20 03:30 03:59 04:00 Temperature 100.6 F H Pulse Rate 101 H 99 H Pulse Rate [ Anterior Bilateral Throughout] Pulse Rate [ From Monitor] Respiratory 25 H 25 H Rate Respiratory Rate [Anterior Bilateral Throughout] Blood Pressure 150/89 154/92 O2 Sat by Pulse 98 100 98 Oximetry 03/04/20 03/04/20 03/04/20 04:06 04:30 05:00 Temperature Pulse Rate 108 H 105 H 104 H Pulse Rate [ Anterior Bilateral Throughout] Pulse Rate [ From Monitor] Respiratory 38 H 25 H Rate Respiratory Rate [Anterior Bilateral Throughout] Blood Pressure 154/92 176/107 O2 Sat by Pulse 98 98 98 Oximetry 03/04/20 03/04/20 03/04/20 05:07 05:30 06:00 Temperature Pulse Rate 103 H 116 H 112 H Pulse Rate [ Anterior Bilateral Throughout] Pulse Rate [ From Monitor] Respiratory 21 25 H Rate Respiratory Rate [Anterior Bilateral Throughout] Blood Pressure 169/103 182/106 O2 Sat by Pulse 96 97 Oximetry 03/04/20 03/04/20 03/04/20 06:30 06:45 07:00 Temperature Pulse Rate 116 H 122 H 93 H Pulse Rate [ Anterior Bilateral Throughout] Pulse Rate [ From Monitor] Respiratory 25 H 25 H Rate Respiratory Rate [Anterior Bilateral Throughout] Blood Pressure 164/95 210/110 133/76 O2 Sat by Pulse 97 97 Oximetry 03/04/20 03/04/20 03/04/20 07:30 07:58 08:00 Temperature 99.9 F H Pulse Rate 93 H 101 H Pulse Rate [ Anterior Bilateral Throughout] Pulse Rate [ 101 H From Monitor] Respiratory 25 H 26 H Rate Respiratory Rate [Anterior Bilateral Throughout] Blood Pressure 145/84 145/84 O2 Sat by Pulse 97 97 Oximetry 03/04/20 03/04/20 03/04/20 08:30 08:37 09:00 Temperature Pulse Rate 95 H 101 H 99 H Pulse Rate [ Anterior Bilateral Throughout] Pulse Rate [ From Monitor] Respiratory 25 H 25 H Rate Respiratory Rate [Anterior Bilateral Throughout] Blood Pressure 158/82 163/92 O2 Sat by Pulse 98 98 98 Oximetry 03/04/20 03/04/20 03/04/20 09:01 09:16 09:30 Temperature Pulse Rate 99 H 98 H Pulse Rate [ 99 H Anterior Bilateral Throughout] Pulse Rate [ From Monitor] Respiratory 25 H Rate Respiratory 27 H Rate [Anterior Bilateral Throughout] Blood Pressure 168/87 155/83 O2 Sat by Pulse 97 Oximetry 03/04/20 03/04/20 03/04/20 10:00 10:30 11:00 Temperature Pulse Rate 88 92 H 97 H Pulse Rate [ Anterior Bilateral Throughout] Pulse Rate [ From Monitor] Respiratory 25 H 25 H 25 H Rate Respiratory Rate [Anterior Bilateral Throughout] Blood Pressure 148/80 148/87 155/95 O2 Sat by Pulse 99 99 99 Oximetry 03/04/20 03/04/20 11:30 12:00 Temperature 98.6 F Pulse Rate 98 H 101 H Pulse Rate [ Anterior Bilateral Throughout] Pulse Rate [ 105 H From Monitor] Respiratory 25 H 25 H Rate Respiratory Rate [Anterior Bilateral Throughout] Blood Pressure 164/96 155/93 O2 Sat by Pulse 98 97 Oximetry Constitutional: no acute distress, other (Obese female with mildly increased respiratory effort at rest on MVS) Eyes: non-icteric ENT: oropharynx moist, other (ETT 24 cm TY) Neck: supple, no lymphadenopathy, no JVD Effort: normal Ascultation: Bilateral: diminished breath sounds, rhonchi Percussion: Bilateral: not dull Cardiovascular: regular rate and rhythm, other (S1,S2) Gastrointestinal: normoactive bowel sounds, hypoactive bowel sounds, soft, non- tender, other (distended but soft) Integumentary: normal Extremities: no cyanosis, no edema, pink and warm, pulses normal Neurologic: normal mental status, non-focal exam (grossly), pupils equal and round, CN II-XII normal, motor strength normal and Psychiatric: mood appropriate, affect normal CBC and BMP: 03/07/20 05:03 03/07/20 05:03 ABG, PT/INR, D-dimer: ABG ABG pH 7.422 pH Units (7.350-7.450) 03/04/20 03:43 POC ABG pCO2 31.8 mmHg (32.0-48.0) L 03/03/20 04:00 ABG pCO2 42.7 mm Hg 03/04/20 03:43 POC ABG pO2 83.1 mmHg (83-108) 03/03/20 04:00 ABG pO2 57.4 mm Hg (80.0-90.0) L 03/04/20 03:43 POC ABG HCO3 17.7 03/03/20 04:00 ABG O2 Saturation 88.6 % (95.0-99.0) L 03/04/20 03:43 PT/INR, D-dimer PT 13.7 Sec. (12.2-14.9) 02/25/20 03:49 INR 1.03 (0.87-1.13) 02/25/20 03:49 Abnormal lab findings: Abnormal Labs 02/24/20 02/24/20 02/24/20 02:53 02:53 Unknown WBC 12.7 H Hgb 10.0 L RBC Hct MCV 70 L MCH 22 L RDW 17.9 H Plt Count 458 H Lymph % (Auto) 8.9 L Lymph # 1.1 L Frio # Lymph # (Auto) Frio # (Auto) Seg Neutrophils % 84.2 H Seg Neutrophils # 10.7 H Seg Neuts % (Manual) Lymphocytes % (Manual) Nucleated RBC % Seg Neutrophils # Man Lymphocytes # (Manual) Monocytes # (Manual) ABG pH POC ABG pCO2 POC ABG pO2 ABG pO2 ABG HCO3 ABG O2 Saturation ABG Base Excess ABG Hemoglobin ABG Oxyhemoglobin Oxyhemoglobin Sodium Potassium Chloride Carbon Dioxide BUN 27 H Creatinine 1.7 H Glucose 118 H POC Glucose Calcium Phosphorus Magnesium Direct Bilirubin Albumin C-Reactive Protein Dunhi-7-Tvhjahinw PEP Interpretation Lipase 232 H PTH Intact Urine WBC (Auto) 11.0 H Urine Creatinine Urine Total Protein ZINA Screen Crossmatch 02/25/20 02/25/20 02/25/20 00:03 03:49 03:49 WBC 29.1 H Hgb 9.4 L RBC Hct 30.2 L MCV 71 L MCH 22 L RDW 18.3 H Plt Count 525 H Lymph % (Auto) 3.4 L Lymph # 1.0 L Frio # 1.0 H Lymph # (Auto) Frio # (Auto) Seg Neutrophils % Seg Neutrophils # 26.4 H Seg Neuts % (Manual) Lymphocytes % (Manual) Nucleated RBC % Seg Neutrophils # Man Lymphocytes # (Manual) Monocytes # (Manual) ABG pH POC ABG pCO2 POC ABG pO2 ABG pO2 ABG HCO3 ABG O2 Saturation ABG Base Excess ABG Hemoglobin ABG Oxyhemoglobin Oxyhemoglobin Sodium Potassium Chloride Carbon Dioxide BUN Creatinine Glucose POC Glucose 126 H Calcium Phosphorus Magnesium Direct Bilirubin Albumin C-Reactive Protein Ndxrr-2-Nqtbudmzm PEP Interpretation Lipase 1486 H PTH Intact Urine WBC (Auto) Urine Creatinine Urine Total Protein ZINA Screen Crossmatch 02/25/20 02/25/20 02/25/20 03:49 05:55 22:55 WBC Hgb RBC Hct MCV MCH RDW Plt Count Lymph % (Auto) Lymph # Frio # Lymph # (Auto) Frio # (Auto) Seg Neutrophils % Seg Neutrophils # Seg Neuts % (Manual) Lymphocytes % (Manual) Nucleated RBC % Seg Neutrophils # Man Lymphocytes # (Manual) Monocytes # (Manual) ABG pH POC ABG pCO2 POC ABG pO2 ABG pO2 ABG HCO3 ABG O2 Saturation ABG Base Excess ABG Hemoglobin ABG Oxyhemoglobin Oxyhemoglobin Sodium 136 L Potassium Chloride 97.9 L Carbon Dioxide 21 L BUN 39 H Creatinine 3.0 H D Glucose 118 H POC Glucose 124 H Calcium Phosphorus Magnesium Direct Bilirubin Albumin 3.6 L C-Reactive Protein Resyx-5-Qtydzpyzq PEP Interpretation Lipase PTH Intact Urine WBC (Auto) Urine Creatinine 161.0 H Urine Total Protein 150 H ZINA Screen Crossmatch 02/26/20 02/26/20 02/26/20 04:39 04:39 04:39 WBC 30.3 H Hgb 9.1 L RBC Hct 29.8 L MCV 71 L MCH 22 L RDW 18.2 H Plt Count 530 H Lymph % (Auto) Lymph # Frio # Lymph # (Auto) Frio # (Auto) Seg Neutrophils % Seg Neutrophils # Seg Neuts % (Manual) Lymphocytes % (Manual) Nucleated RBC % Seg Neutrophils # Man Lymphocytes # (Manual) Monocytes # (Manual) ABG pH POC ABG pCO2 POC ABG pO2 ABG pO2 ABG HCO3 ABG O2 Saturation ABG Base Excess ABG Hemoglobin ABG Oxyhemoglobin Oxyhemoglobin Sodium Potassium Chloride Carbon Dioxide 19 L BUN 44 H Creatinine 3.1 H Glucose 106 H POC Glucose Calcium 8.1 L Phosphorus Magnesium Direct Bilirubin Albumin C-Reactive Protein Oisqz-5-Myrphfypd PEP Interpretation Lipase 540 H PTH Intact Urine WBC (Auto) Urine Creatinine Urine Total Protein ZINA Screen Positive H Crossmatch 02/26/20 02/26/20 02/26/20 04:39 08:15 12:14 WBC Hgb RBC Hct MCV MCH RDW Plt Count Lymph % (Auto) Lymph # Frio # Lymph # (Auto) Frio # (Auto) Seg Neutrophils % Seg Neutrophils # Seg Neuts % (Manual) Lymphocytes % (Manual) Nucleated RBC % Seg Neutrophils # Man Lymphocytes # (Manual) Monocytes # (Manual) ABG pH POC ABG pCO2 POC ABG pO2 ABG pO2 ABG HCO3 ABG O2 Saturation ABG Base Excess ABG Hemoglobin ABG Oxyhemoglobin Oxyhemoglobin Sodium Potassium Chloride Carbon Dioxide BUN Creatinine Glucose POC Glucose 112 H Calcium Phosphorus Magnesium Direct Bilirubin Albumin 2.8 L C-Reactive Protein Flnxh-8-Gujvthrfb 0.7 H PEP Interpretation see below H Lipase PTH Intact 911.3 H Urine WBC (Auto) Urine Creatinine Urine Total Protein ZINA Screen Crossmatch 02/27/20 02/27/20 02/27/20 04:18 04:18 04:18 WBC 26.8 H Hgb 7.9 L RBC Hct 26.3 L MCV 70 L MCH 21 L RDW 18.0 H Plt Count 513 H Lymph % (Auto) Lymph # Frio # Lymph # (Auto) Frio # (Auto) Seg Neutrophils % Seg Neutrophils # Seg Neuts % (Manual) Lymphocytes % (Manual) Nucleated RBC % Seg Neutrophils # Man Lymphocytes # (Manual) Monocytes # (Manual) ABG pH POC ABG pCO2 POC ABG pO2 ABG pO2 ABG HCO3 ABG O2 Saturation ABG Base Excess ABG Hemoglobin ABG Oxyhemoglobin Oxyhemoglobin Sodium 135 L 135 L Potassium Chloride Carbon Dioxide 15 L 16 L BUN 50 H 51 H Creatinine 3.4 H 3.4 H Glucose POC Glucose Calcium 7.4 L 7.5 L Phosphorus Magnesium Direct Bilirubin Albumin 3.0 L C-Reactive Protein 37.30 H Uonwo-9-Lsyyofzkj PEP Interpretation Lipase 177 H PTH Intact Urine WBC (Auto) Urine Creatinine Urine Total Protein ZINA Screen Crossmatch 02/27/20 02/28/20 02/28/20 16:57 05:07 05:07 WBC Hgb RBC Hct MCV MCH RDW Plt Count Lymph % (Auto) Lymph # Frio # Lymph # (Auto) Frio # (Auto) Seg Neutrophils % Seg Neutrophils # Seg Neuts % (Manual) Lymphocytes % (Manual) Nucleated RBC % Seg Neutrophils # Man Lymphocytes # (Manual) Monocytes # (Manual) ABG pH 7.336 L POC ABG pCO2 POC ABG pO2 ABG pO2 57.0 L ABG HCO3 16.4 L ABG O2 Saturation 88.2 L ABG Base Excess -8.4 L ABG Hemoglobin 10.4 L ABG Oxyhemoglobin Oxyhemoglobin 85.7 L Sodium Potassium Chloride Carbon Dioxide 14 L BUN 60 H Creatinine 4.2 H Glucose POC Glucose Calcium 8.2 L Phosphorus Magnesium Direct Bilirubin Albumin C-Reactive Protein Lcoiz-9-Lbkvsfmsr PEP Interpretation Lipase 155 H PTH Intact Urine WBC (Auto) Urine Creatinine Urine Total Protein ZINA Screen Crossmatch 02/28/20 02/28/20 02/28/20 05:56 11:05 11:05 WBC Hgb RBC Hct MCV MCH RDW Plt Count Lymph % (Auto) Lymph # Frio # Lymph # (Auto) Frio # (Auto) Seg Neutrophils % Seg Neutrophils # Seg Neuts % (Manual) Lymphocytes % (Manual) Nucleated RBC % Seg Neutrophils # Man Lymphocytes # (Manual) Monocytes # (Manual) ABG pH 7.317 L POC ABG pCO2 POC ABG pO2 76.2 L ABG pO2 ABG HCO3 16.4 L ABG O2 Saturation ABG Base Excess -8.9 L ABG Hemoglobin 6.6 L 7.6 L ABG Oxyhemoglobin Oxyhemoglobin 94.6 L Sodium Potassium Chloride Carbon Dioxide BUN Creatinine Glucose POC Glucose 115 H Calcium Phosphorus Magnesium Direct Bilirubin Albumin C-Reactive Protein Hjwxm-4-Hrrgsmavq PEP Interpretation Lipase PTH Intact Urine WBC (Auto) Urine Creatinine Urine Total Protein ZINA Screen Crossmatch 02/28/20 02/28/20 02/29/20 17:39 19:39 05:43 WBC Hgb RBC Hct MCV MCH RDW Plt Count Lymph % (Auto) Lymph # Frio # Lymph # (Auto) Frio # (Auto) Seg Neutrophils % Seg Neutrophils # Seg Neuts % (Manual) Lymphocytes % (Manual) Nucleated RBC % Seg Neutrophils # Man Lymphocytes # (Manual) Monocytes # (Manual) ABG pH 7.300 L POC ABG pCO2 POC ABG pO2 ABG pO2 117.5 H ABG HCO3 15.0 L ABG O2 Saturation ABG Base Excess -10.5 L ABG Hemoglobin 6.4 L ABG Oxyhemoglobin Oxyhemoglobin Sodium Potassium Chloride Carbon Dioxide BUN Creatinine Glucose POC Glucose 120 H 66 L Calcium Phosphorus Magnesium Direct Bilirubin Albumin C-Reactive Protein Lkxdu-3-Ksjhnvhbc PEP Interpretation Lipase PTH Intact Urine WBC (Auto) Urine Creatinine Urine Total Protein ZINA Screen Crossmatch 02/29/20 02/29/20 02/29/20 05:45 12:04 12:31 WBC Hgb RBC Hct MCV MCH RDW Plt Count Lymph % (Auto) Lymph # Frio # Lymph # (Auto) Frio # (Auto) Seg Neutrophils % Seg Neutrophils # Seg Neuts % (Manual) Lymphocytes % (Manual) Nucleated RBC % Seg Neutrophils # Man Lymphocytes # (Manual) Monocytes # (Manual) ABG pH 7.212 L POC ABG pCO2 POC ABG pO2 ABG pO2 ABG HCO3 ABG O2 Saturation ABG Base Excess ABG Hemoglobin 7.4 L ABG Oxyhemoglobin Oxyhemoglobin Sodium Potassium Chloride Carbon Dioxide BUN Creatinine Glucose POC Glucose 65 L 64 L Calcium Phosphorus Magnesium Direct Bilirubin Albumin C-Reactive Protein Vsfju-7-Eeuyusekp PEP Interpretation Lipase PTH Intact Urine WBC (Auto) Urine Creatinine Urine Total Protein ZINA Screen Crossmatch 02/29/20 02/29/20 02/29/20 14:22 14:22 18:20 WBC Hgb RBC Hct MCV MCH RDW Plt Count Lymph % (Auto) Lymph # Frio # Lymph # (Auto) Frio # (Auto) Seg Neutrophils % Seg Neutrophils # Seg Neuts % (Manual) Lymphocytes % (Manual) Nucleated RBC % Seg Neutrophils # Man Lymphocytes # (Manual) Monocytes # (Manual) ABG pH POC ABG pCO2 POC ABG pO2 ABG pO2 ABG HCO3 ABG O2 Saturation ABG Base Excess ABG Hemoglobin ABG Oxyhemoglobin Oxyhemoglobin Sodium Potassium Chloride Carbon Dioxide 16 L BUN 77 H Creatinine 4.7 H Glucose POC Glucose 66 L Calcium Phosphorus 7.50 H Magnesium 2.60 H Direct Bilirubin Albumin 2.3 L C-Reactive Protein Mabky-7-Ybhgzhstd PEP Interpretation Lipase PTH Intact Urine WBC (Auto) Urine Creatinine Urine Total Protein ZINA Screen Crossmatch 02/29/20 03/01/20 03/01/20 18:24 04:05 04:37 WBC Hgb RBC Hct MCV MCH RDW Plt Count Lymph % (Auto) Lymph # Frio # Lymph # (Auto) Frio # (Auto) Seg Neutrophils % Seg Neutrophils # Seg Neuts % (Manual) Lymphocytes % (Manual) Nucleated RBC % Seg Neutrophils # Man Lymphocytes # (Manual) Monocytes # (Manual) ABG pH 7.271 L 7.347 L POC ABG pCO2 POC ABG pO2 ABG pO2 133.5 H ABG HCO3 15.8 L ABG O2 Saturation ABG Base Excess -8.9 L ABG Hemoglobin 7.2 L 7.6 L ABG Oxyhemoglobin 93.4 L Oxyhemoglobin Sodium Potassium Chloride 107.6 H Carbon Dioxide 14 L BUN 83 H Creatinine 5.6 H Glucose POC Glucose Calcium Phosphorus 6.10 H Magnesium 2.40 H Direct Bilirubin Albumin C-Reactive Protein Fbtxn-5-Ajtvelstf PEP Interpretation Lipase PTH Intact Urine WBC (Auto) Urine Creatinine Urine Total Protein ZINA Screen Crossmatch 03/01/20 03/01/20 03/01/20 11:06 16:22 18:12 WBC 30.5 H Hgb 6.2 L RBC 2.92 L Hct 20.8 L MCV 71 L MCH 21 L RDW 18.2 H Plt Count 560 H Lymph % (Auto) Lymph # Frio # Lymph # (Auto) Frio # (Auto) Seg Neutrophils % Seg Neutrophils # Seg Neuts % (Manual) 79.0 H Lymphocytes % (Manual) 3.0 L Nucleated RBC % Seg Neutrophils # Man 24.1 H Lymphocytes # (Manual) 0.9 L Monocytes # (Manual) 2.1 H ABG pH POC ABG pCO2 POC ABG pO2 ABG pO2 ABG HCO3 ABG O2 Saturation ABG Base Excess ABG Hemoglobin ABG Oxyhemoglobin Oxyhemoglobin Sodium Potassium 5.3 H D Chloride Carbon Dioxide 11 L BUN 77 H Creatinine 5.0 H Glucose 54 L POC Glucose 121 H Calcium Phosphorus Magnesium Direct Bilirubin Albumin 3.0 L C-Reactive Protein 36.50 H Ssksh-9-Oqmqyolhi PEP Interpretation Lipase PTH Intact Urine WBC (Auto) Urine Creatinine Urine Total Protein ZINA Screen Crossmatch 03/01/20 03/01/20 03/01/20 18:30 23:37 Unknown WBC Hgb RBC Hct MCV MCH RDW Plt Count Lymph % (Auto) Lymph # Frio # Lymph # (Auto) Frio # (Auto) Seg Neutrophils % Seg Neutrophils # Seg Neuts % (Manual) Lymphocytes % (Manual) Nucleated RBC % Seg Neutrophils # Man Lymphocytes # (Manual) Monocytes # (Manual) ABG pH POC ABG pCO2 POC ABG pO2 ABG pO2 ABG HCO3 ABG O2 Saturation ABG Base Excess ABG Hemoglobin ABG Oxyhemoglobin Oxyhemoglobin Sodium Potassium Chloride Carbon Dioxide BUN Creatinine Glucose POC Glucose 125 H Calcium Phosphorus Magnesium Direct Bilirubin Albumin C-Reactive Protein Udvhi-1-Dyrrlbjbo PEP Interpretation Lipase 297 H PTH Intact Urine WBC (Auto) Urine Creatinine Urine Total Protein ZINA Screen Crossmatch See Detail 03/02/20 03/02/20 03/02/20 04:00 05:36 05:36 WBC 26.0 H Hgb 7.8 L RBC 3.26 L Hct 24.2 L MCV 74 L MCH 24 L RDW 21.3 H Plt Count 508 H Lymph % (Auto) Lymph # Frio # Lymph # (Auto) Frio # (Auto) Seg Neutrophils % Seg Neutrophils # Seg Neuts % (Manual) 86.0 H Lymphocytes % (Manual) 4.0 L Nucleated RBC % 2.0 H Seg Neutrophils # Man 22.4 H Lymphocytes # (Manual) 1.0 L Monocytes # (Manual) ABG pH POC ABG pCO2 27.8 L POC ABG pO2 ABG pO2 ABG HCO3 ABG O2 Saturation ABG Base Excess ABG Hemoglobin 8 L ABG Oxyhemoglobin Oxyhemoglobin Sodium Potassium Chloride Carbon Dioxide 17 L BUN 85 H Creatinine 5.6 H Glucose 109 H POC Glucose Calcium Phosphorus Magnesium 2.50 H Direct Bilirubin Albumin 2.3 L C-Reactive Protein Mfwbj-1-Evxisgxaf PEP Interpretation Lipase PTH Intact Urine WBC (Auto) Urine Creatinine Urine Total Protein ZINA Screen Crossmatch 03/03/20 03/03/20 03/03/20 04:00 04:36 04:36 WBC Hgb RBC Hct MCV MCH RDW Plt Count Lymph % (Auto) Lymph # Frio # Lymph # (Auto) Frio # (Auto) Seg Neutrophils % Seg Neutrophils # Seg Neuts % (Manual) Lymphocytes % (Manual) Nucleated RBC % Seg Neutrophils # Man Lymphocytes # (Manual) Monocytes # (Manual) ABG pH POC ABG pCO2 31.8 L POC ABG pO2 ABG pO2 ABG HCO3 ABG O2 Saturation ABG Base Excess ABG Hemoglobin 8.6 L ABG Oxyhemoglobin Oxyhemoglobin Sodium 147 H Potassium Chloride 108.4 H Carbon Dioxide 16 L BUN 87 H Creatinine 6.2 H Glucose POC Glucose Calcium Phosphorus Magnesium 2.50 H Direct Bilirubin 1.0 H Albumin 2.4 L C-Reactive Protein Aizxw-9-Uajzyfqef PEP Interpretation Lipase 119 H PTH Intact Urine WBC (Auto) Urine Creatinine Urine Total Protein ZINA Screen Crossmatch 03/03/20 03/03/20 03/03/20 04:36 12:48 17:48 WBC 28.0 H Hgb 8.1 L RBC 3.41 L Hct 25.3 L MCV 74 L MCH 24 L RDW 20.8 H Plt Count 557 H Lymph % (Auto) Lymph # Frio # Lymph # (Auto) Frio # (Auto) Seg Neutrophils % Seg Neutrophils # Seg Neuts % (Manual) 82.0 H Lymphocytes % (Manual) 4.0 L Nucleated RBC % Seg Neutrophils # Man 23.0 H Lymphocytes # (Manual) 1.1 L Monocytes # (Manual) 2.0 H ABG pH POC ABG pCO2 POC ABG pO2 ABG pO2 ABG HCO3 ABG O2 Saturation ABG Base Excess ABG Hemoglobin ABG Oxyhemoglobin Oxyhemoglobin Sodium Potassium Chloride Carbon Dioxide BUN Creatinine Glucose POC Glucose 131 H 113 H Calcium Phosphorus Magnesium Direct Bilirubin Albumin C-Reactive Protein Kgtio-1-Lnixyexbx PEP Interpretation Lipase PTH Intact Urine WBC (Auto) Urine Creatinine Urine Total Protein ZINA Screen Crossmatch 03/03/20 03/04/20 03/04/20 23:43 03:43 04:05 WBC Hgb RBC Hct MCV MCH RDW Plt Count Lymph % (Auto) Lymph # Frio # Lymph # (Auto) Frio # (Auto) Seg Neutrophils % Seg Neutrophils # Seg Neuts % (Manual) Lymphocytes % (Manual) Nucleated RBC % Seg Neutrophils # Man Lymphocytes # (Manual) Monocytes # (Manual) ABG pH POC ABG pCO2 POC ABG pO2 ABG pO2 57.4 L ABG HCO3 27.2 H ABG O2 Saturation 88.6 L ABG Base Excess ABG Hemoglobin ABG Oxyhemoglobin Oxyhemoglobin Sodium Potassium 3.3 L Chloride Carbon Dioxide BUN 65 H Creatinine 5.3 H Glucose 152 H POC Glucose 149 H Calcium Phosphorus Magnesium Direct Bilirubin 0.7 H Albumin 2.5 L C-Reactive Protein Wbatt-4-Qwhfomzyh PEP Interpretation Lipase PTH Intact Urine WBC (Auto) Urine Creatinine Urine Total Protein ZINA Screen Crossmatch 03/04/20 03/04/20 04:05 05:26 WBC 30.1 H Hgb 8.2 L RBC 3.44 L Hct 25.2 L MCV 73 L MCH 24 L RDW 20.7 H Plt Count 554 H Lymph % (Auto) 3.3 L Lymph # Frio # Lymph # (Auto) 1.0 L Frio # (Auto) 2.0 H Seg Neutrophils % 88.6 H Seg Neutrophils # 26.6 H Seg Neuts % (Manual) Lymphocytes % (Manual) Nucleated RBC % Seg Neutrophils # Man Lymphocytes # (Manual) Monocytes # (Manual) ABG pH POC ABG pCO2 POC ABG pO2 ABG pO2 ABG HCO3 ABG O2 Saturation ABG Base Excess ABG Hemoglobin ABG Oxyhemoglobin Oxyhemoglobin Sodium Potassium Chloride Carbon Dioxide BUN Creatinine Glucose POC Glucose 136 H Calcium Phosphorus Magnesium Direct Bilirubin Albumin C-Reactive Protein Gqjfy-4-Ufmoqgdos PEP Interpretation Lipase PTH Intact Urine WBC (Auto) Urine Creatinine Urine Total Protein ZINA Screen Crossmatch Chest x-ray: pending Allied health notes reviewed: nursing
--- NOTE | 2020-03-04 14:02 | Progress Note ---
Assessment and Plan (1) Acute pancreatitis - Developing complications related to local and systemic effects. On dialysis, and WBC increasing. Etiology of pancreatitis unclear, and has now developed multi-organ failure. - given calcification in HOP, MRCP at some point in future is reasonable, but no need urgently - repeat CT without IV contrast for now, to monitor evolution of pancreatitis soniya given increasing WBC. Last CT was on 02/24. - nutrition via Dobhoff (2) Altered mental status - now intubated and sedated. 3. Anemia - on PPI. Hgb up to 7.2. - will defer transfusion, etc to Hospitalist Current Visit: Yes Status: Acute Plan to address problem: Subjective Date of service: 03/04/20 Principal diagnosis: HTNsive urgency; Morbid obesity; Ac. pancreatitis; Abdominal pain Interval history: Pt stable overnight. More awake, but not purposeful. Objective - Constitutional Vitals: Vital Signs - 12hr 03/04/20 03/04/20 03/04/20 02:00 02:25 02:30 Temperature Pulse Rate 111 H 113 H Pulse Rate [ 115 H Anterior Bilateral Throughout] Pulse Rate [ From Monitor] Respiratory 22 20 Rate Respiratory 27 H Rate [Anterior Bilateral Throughout] Blood Pressure 146/85 O2 Sat by Pulse 95 97 Oximetry 03/04/20 03/04/20 03/04/20 03:00 03:30 03:59 Temperature Pulse Rate 106 H 101 H Pulse Rate [ Anterior Bilateral Throughout] Pulse Rate [ From Monitor] Respiratory 26 H 25 H Rate Respiratory Rate [Anterior Bilateral Throughout] Blood Pressure 155/92 150/89 O2 Sat by Pulse 97 98 100 Oximetry 03/04/20 03/04/20 03/04/20 04:00 04:06 04:30 Temperature 100.6 F H Pulse Rate 99 H 108 H 105 H Pulse Rate [ Anterior Bilateral Throughout] Pulse Rate [ From Monitor] Respiratory 25 H 38 H Rate Respiratory Rate [Anterior Bilateral Throughout] Blood Pressure 154/92 154/92 176/107 O2 Sat by Pulse 98 98 98 Oximetry 03/04/20 03/04/20 03/04/20 05:00 05:07 05:30 Temperature Pulse Rate 104 H 103 H 116 H Pulse Rate [ Anterior Bilateral Throughout] Pulse Rate [ From Monitor] Respiratory 25 H 21 Rate Respiratory Rate [Anterior Bilateral Throughout] Blood Pressure 169/103 O2 Sat by Pulse 98 96 Oximetry 09/03/04/20 03/04/20 06:00 06:30 06:45 Temperature Pulse Rate 112 H 116 H 122 H Pulse Rate [ Anterior Bilateral Throughout] Pulse Rate [ From Monitor] Respiratory 25 H 25 H Rate Respiratory Rate [Anterior Bilateral Throughout] Blood Pressure 182/106 164/95 210/110 O2 Sat by Pulse 97 97 Oximetry 03/04/20 03/04/20 03/04/20 07:00 07:30 07:58 Temperature 99.9 F H Pulse Rate 93 H 93 H Pulse Rate [ Anterior Bilateral Throughout] Pulse Rate [ From Monitor] Respiratory 25 H 25 H Rate Respiratory Rate [Anterior Bilateral Throughout] Blood Pressure 133/76 145/84 O2 Sat by Pulse 97 97 Oximetry 03/04/20 03/04/20 03/04/20 08:00 08:30 08:37 Temperature Pulse Rate 101 H 95 H 101 H Pulse Rate [ Anterior Bilateral Throughout] Pulse Rate [ 101 H From Monitor] Respiratory 26 H 25 H Rate Respiratory Rate [Anterior Bilateral Throughout] Blood Pressure 145/84 158/82 O2 Sat by Pulse 97 98 98 Oximetry 03/04/20 03/04/20 03/04/20 09:00 09:01 09:16 Temperature Pulse Rate 99 H 99 H Pulse Rate [ 99 H Anterior Bilateral Throughout] Pulse Rate [ From Monitor] Respiratory 25 H Rate Respiratory 27 H Rate [Anterior Bilateral Throughout] Blood Pressure 163/92 168/87 O2 Sat by Pulse 98 Oximetry 03/04/20 03/04/20 03/04/20 09:30 10:00 10:30 Temperature Pulse Rate 98 H 88 92 H Pulse Rate [ Anterior Bilateral Throughout] Pulse Rate [ From Monitor] Respiratory 25 H 25 H 25 H Rate Respiratory Rate [Anterior Bilateral Throughout] Blood Pressure 155/83 148/80 148/87 O2 Sat by Pulse 97 99 99 Oximetry 03/04/20 03/04/20 03/04/20 11:00 11:30 12:00 Temperature 98.6 F Pulse Rate 97 H 98 H 101 H Pulse Rate [ Anterior Bilateral Throughout] Pulse Rate [ 105 H From Monitor] Respiratory 25 H 25 H 25 H Rate Respiratory Rate [Anterior Bilateral Throughout] Blood Pressure 155/95 164/96 155/93 O2 Sat by Pulse 99 98 97 Oximetry 03/04/20 03/04/20 12:30 13:00 Temperature Pulse Rate 104 H 104 H Pulse Rate [ Anterior Bilateral Throughout] Pulse Rate [ From Monitor] Respiratory 25 H 25 H Rate Respiratory Rate [Anterior Bilateral Throughout] Blood Pressure 147/102 146/93 O2 Sat by Pulse 98 97 Oximetry General appearance: Present: no acute distress, other (Intubated and sedated) - EENT Eyes: PERRL, EOM intact ENT: hearing intact - Gastrointestinal General gastrointestinal: Present: tender (Moderate diffuse), distended (Moderately), hypoactive bowel sounds - Labs CBC & Chem 7: 03/04/20 04:05 03/04/20 04:05 Labs: Abnormal lab results 03/03/20 03/03/20 03/03/20 Range/Units 12:48 17:48 23:43 WBC (4.5-11.0) K/mm3 RBC (3.65-5.03) M/mm3 Hgb (10.1-14.3) gm/dl Hct (30.3-42.9) % MCV (79-97) fl MCH (28-32) pg RDW (13.2-15.2) % Plt Count (140-440) K/mm3 Lymph % (Auto) (13.4-35.0) % Lymph # (Auto) (1.2-5.4) K/mm3 Yates # (Auto) (0.0-0.8) K/mm3 Seg Neutrophils % (40.0-70.0) % Seg Neutrophils # (1.8-7.7) K/mm3 ABG pO2 (80.0-90.0) mm Hg ABG HCO3 (20.0-26.0) mmol/L ABG O2 Saturation (95.0-99.0) % Potassium (3.6-5.0) mmol/L BUN (7-17) mg/dL Creatinine (0.6-1.2) mg/dL Glucose (65-100) mg/dL POC Glucose 131 H 113 H 149 H (70-105) Direct Bilirubin (0-0.2) mg/dL Albumin (3.9-5) g/dL 03/04/20 03/04/20 03/04/20 Range/Units 03:43 04:05 04:05 WBC 30.1 H (4.5-11.0) K/mm3 RBC 3.44 L (3.65-5.03) M/mm3 Hgb 8.2 L (10.1-14.3) gm/dl Hct 25.2 L (30.3-42.9) % MCV 73 L (79-97) fl MCH 24 L (28-32) pg RDW 20.7 H (13.2-15.2) % Plt Count 554 H (140-440) K/mm3 Lymph % (Auto) 3.3 L (13.4-35.0) % Lymph # (Auto) 1.0 L (1.2-5.4) K/mm3 Yates # (Auto) 2.0 H (0.0-0.8) K/mm3 Seg Neutrophils % 88.6 H (40.0-70.0) % Seg Neutrophils # 26.6 H (1.8-7.7) K/mm3 ABG pO2 57.4 L (80.0-90.0) mm Hg ABG HCO3 27.2 H (20.0-26.0) mmol/L ABG O2 Saturation 88.6 L (95.0-99.0) % Potassium 3.3 L (3.6-5.0) mmol/L BUN 65 H (7-17) mg/dL Creatinine 5.3 H (0.6-1.2) mg/dL Glucose 152 H (65-100) mg/dL POC Glucose (70-105) Direct Bilirubin 0.7 H (0-0.2) mg/dL Albumin 2.5 L (3.9-5) g/dL 03/04/20 Range/Units 05:26 WBC (4.5-11.0) K/mm3 RBC (3.65-5.03) M/mm3 Hgb (10.1-14.3) gm/dl Hct (30.3-42.9) % MCV (79-97) fl MCH (28-32) pg RDW (13.2-15.2) % Plt Count (140-440) K/mm3 Lymph % (Auto) (13.4-35.0) % Lymph # (Auto) (1.2-5.4) K/mm3 Yates # (Auto) (0.0-0.8) K/mm3 Seg Neutrophils % (40.0-70.0) % Seg Neutrophils # (1.8-7.7) K/mm3 ABG pO2 (80.0-90.0) mm Hg ABG HCO3 (20.0-26.0) mmol/L ABG O2 Saturation (95.0-99.0) % Potassium (3.6-5.0) mmol/L BUN (7-17) mg/dL Creatinine (0.6-1.2) mg/dL Glucose (65-100) mg/dL POC Glucose 136 H (70-105) Direct Bilirubin (0-0.2) mg/dL Albumin (3.9-5) g/dL Medications & Allergies - Medications Allergies/Adverse Reactions: Allergies No Known Allergies Allergy (Unverified 09/05/19 10:15) Home Medications: Home Medications Medication Instructions Recorded Confirmed Last Taken Type Amlodipine Besylate [Norvasc] 10 mg PO DAILY 09/05/19 02/24/20 09/04/19 History Furosemide [Lasix] 20 mg PO QDAY #30 tablet 09/05/19 02/24/20 Unknown Rx Lisinopril [Zestril] 5 mg PO DAILY #30 tablet 09/05/19 02/24/20 Unknown Rx Metoprolol [Lopressor TAB] 25 mg PO BID #60 tablet 09/05/19 02/24/20 Unknown Rx Active Medications: Generic Name Dose Route Start Last Admin Trade Name Freq PRN Reason Stop Dose Admin Acetaminophen 650 mg 02/26/20 16:23 02/26/20 16:37 Tylenol PO 650 mg Q4H PRN Administration Pain, Mild (1-3)/ Temp >100. Albuterol 2.5 mg 02/27/20 17:55 Proventil IH Q4HRT PRN Shortness Of Breath Albuterol/Ipratropium 1 ampul 02/28/20 12:17 03/04/20 09:01 Duoneb *Not For Prn Use* IH 1 ampul Q6HRT INDU Administration Amlodipine Besylate 10 mg 02/28/20 10:00 03/04/20 09:16 Amlodipine PO 10 mg QDAY INDU Administration Lipase/Protease/Amylase 1 each 03/01/20 08:46 Pancrealivia Davis 10,500 Unit FEEDTUBE PRN PRN For Clogged Feeding Tube Dextrose 50 ml 02/29/20 08:00 03/01/20 00:20 D50w (25gm) Syringe IV 10 ml Q30MIN PRN Administration HYPOGLYCEMIA Protocol Fentanyl 50 mcg 02/29/20 15:35 03/02/20 12:19 Sublimaze IV 50 mcg Q10MIN PRN Administration ANALGESIA Haloperidol Lactate 5 mg 02/28/20 11:30 02/28/20 11:51 Haldol IV 5 mg Q1H PRN Administration Unrespon. to mult. doses BZD's Heparin Sodium (Porcine) 5,000 unit 02/24/20 14:00 03/04/20 05:07 Heparin SUB-Q 5,000 unit Q8HR INDU Administration Hydralazine HCl 25 mg 03/04/20 14:00 Apresoline PO Q8HR INDU Hydrophilic Ointment 1 applic 02/29/20 15:35 Vaseline Lip Therapy TP Q2HR PRN Dry Lips Nicardipine HCl 50 mg/ Sodium 250 mls @ 25 mls/hr 02/24/20 07:00 02/28/20 12:51 Chloride IV 0 mg/hr TITR INDU 0 mls/hr Titration Protocol 5 MG/HR Fentanyl Citrate 2,000 mcg in 100 mls @ 4.55 mls/hr 02/29/20 16:00 03/04/20 08:50 Fentanyl Drip Premix IV 3 mcg/kg/hr TITR INDU 13.65 mls/hr Titration Protocol 1 MCG/KG/HR Sodium Chloride 100 mls @ 999 mls/hr 03/03/20 09:08 Nacl 0.9% IV NIKOLAY PRN Hypotension MEROPENEM/NS 1 GRAM/100 ML 1 gram in 100 mls @ 100 mls/hr 03/03/20 18:00 03/03/20 18:49 Merrem/Ns 1 Gram/100 Ml IV 100 mls/hr QPM INDU Administration Protocol Sodium Chloride 100 mls @ 999 mls/hr 03/04/20 08:56 Nacl 0.9% IV NIKOLAY PRN Hypotension Labetalol HCl 10 mg 02/28/20 09:00 03/04/20 06:45 Labetalol IV 10 mg Q4H PRN Administration Hypertension Lorazepam 1 mg 02/28/20 04:20 02/28/20 11:05 Ativan IV 1 mg Q4H PRN Administration Agitation Lorazepam 2 mg 02/28/20 11:30 02/29/20 11:43 Ativan IV 2 mg Q1H PRN Administration CIWA-Ar 8-15 Lorazepam 4 mg 02/28/20 11:30 02/29/20 16:19 Ativan IV 4 mg Q1H PRN Administration CIWA-Ar 16-25 Metoprolol Tartrate 25 mg 02/28/20 10:00 03/04/20 09:16 Metoprolol PO 25 mg BID INDU Administration Midazolam HCl 2 mg 02/29/20 15:35 02/29/20 17:00 Versed IV 2 mg Q10MIN PRN Administration Sedation Multi-Ingred Cream/Lotion/Oil/Oint 1 applic 02/29/20 15:35 Artificial Tears Ophth Oint OU Q4HR PRN Dry Eye(s) Ondansetron HCl 4 mg 02/24/20 06:45 02/25/20 23:33 Zofran IV 4 mg Q8H PRN Administration Nausea And Vomiting Pantoprazole Sodium 40 mg 02/24/20 13:00 03/04/20 09:15 Protonix IV 40 mg QDAY INDU Administration Simple Syrup 15 ml 03/01/20 08:46 Simple Syrup FEEDTUBE PRN PRN Hypoglycemia Simple Syrup 30 ml 03/01/20 08:46 Simple Syrup FEEDTUBE PRN PRN Hypoglycemia Sodium Bicarbonate 325 mg 03/01/20 08:46 Sodium Bicarbonate FEEDTUBE PRN PRN For Clogged Feeding Tube Sodium Bicarbonate 1,300 mg 03/01/20 16:43 03/04/20 08:49 Sodium Bicarbonate PO 1,300 mg TID INDU Administration Sodium Chloride 10 ml 02/24/20 10:00 03/04/20 09:17 Sodium Chloride Flush Syringe 10 Ml IV 10 ml BID INDU Administration Sodium Chloride 10 ml 02/24/20 06:45 Sodium Chloride Flush Syringe 10 Ml IV PRN PRN LINE FLUSH Tamsulosin HCl 0.4 mg 03/01/20 17:00 03/04/20 09:15 Flomax PO 0.4 mg QDAY INDU Administration
[2020-03-04] MEDS: SCOPOLAMINE TRANSDERMAL PATCH 72 HR TD SCH (15:58)
[2020-03-04] MEDS: MEROPENEM/NS 1 GRAM/100 ML 1 GRAM/100 ML BAG IV SCH (18:26)
[2020-03-04] MEDS: HALOPERIDOL LACTATE 5 MG/1 ML INJ IV PRN (20:25)
[2020-03-04] MEDS: fentaNYL 100 MCG/2 ML INJ IV PRN (20:35)
[2020-03-04] MEDS: ACETAMINOPHEN 325 MG TAB PO PRN (21:50)
[2020-03-05] MEDS: IPRATROPIUM/ALBUTEROL SULFATE 3 ML AMPUL.NEB IH SCH ×4 (02:11→20:07)
[2020-03-05] MEDS: fentaNYL DRIP Premix 2,000 MCG/100 ML BAG IV SCH ×4 (02:28→23:24)
--- NOTE | 2020-03-05 03:30 | XRay Report ---
CHEST 1 VIEW 03/05/2020 2:20 AM INDICATION / CLINICAL INFORMATION: follow up respiratory failure. COMPARISON: 03/04/2020 FINDINGS: SUPPORT DEVICES: Stable, satisfactory device positioning. HEART / MEDIASTINUM: Stable. LUNGS / PLEURA: Improved bibasilar pulmonary opacities. No pneumothorax. ADDITIONAL FINDINGS: No significant additional findings. IMPRESSION: 1. Improved bibasilar pulmonary opacities since the prior exam. Signer Name: Chance Leon MD Signed: 03/05/2020 3:25 AM Workstation Name: [email or web address]
[2020-03-05 05:18] LABS: ABG Base Excess 1.5 mmol/L (-2.0-3.0); ABG HCO3 26.4 mmol/L (20.0-26.0); ABG Methemoglobin 0.5 % (0.0-1.5); ABG Oxygen Saturation 92.1 % (95.0-99.0); ABG PCO2 43.1 mm Hg; ABG PH 7.405 pH Units (7.350-7.450); ABG PO2 62.5 mm Hg (80.0-90.0)
[2020-03-05] MEDS: hydrALAZINE 25 MG TAB PO SCH ×3 (05:59→21:34)
[2020-03-05] MEDS: HEPARIN 5,000 UNIT/1 ML VIAL SUB-Q SCH ×3 (05:59→21:34)
[2020-03-05 06:50] LABS: Albumin 2.5 g/dL (3.9-5); Bilirubin,Direct 0.6 mg/dL (0-0.2); Calcium 9.1 mg/dL (8.4-10.2)
[2020-03-05] MEDS: SODIUM BICARBONATE 650 MG TAB PO SCH (08:12)
[2020-03-05] MEDS: LORazepam 2 MG/ML VIAL IV PRN ×3 (08:21→21:47)
[2020-03-05] MEDS: amLODIPine 10 MG TAB PO SCH (10:46)
[2020-03-05] MEDS: PANTOPRAZOLE 40 MG INJ IV SCH (10:46)
[2020-03-05] MEDS: METOPROLOL TARTRATE 25 MG TAB PO SCH ×2 (10:47→21:33)
[2020-03-05] MEDS: TAMSULOSIN 0.4 MG CAP PO SCH (10:47)
[2020-03-05] MEDS: HALOPERIDOL LACTATE 5 MG/1 ML INJ IV PRN (10:48)
--- NOTE | 2020-03-05 11:04 | Progress Note ---
Assessment and Plan Acute Hypoxemic Respiratory Failure on MVS Severe Sepsis Acute Toxic-Metabolic Encephalopathy Hypertensive urgency Morbid obesity Acute pancreatitis, abdominal pain Medical non compliance Oropharyngeal Dysphagia - CT abd/pelvis with oral contrast reviewed with GI - HD/UF for toxin and volume clearance per Renal service, no HD/UF today but will plan for tomorrow - daily SAT and SBT assessment as tolerated - on minimal vent settings at this time - continue current vent settings - continue fentanyl for sedation , add Seroquel. Get 12 lead EKG now and daily for 3 days, monitor for QTc - accuchecks with glycemic control per SSI (While critically ill target blood glucose of 140-180 mg/dL; avoid hypoglycemia) - sedation for target RASS -1 to -2 - continue to wean supplemental oxygen for target O2 sats > 90% - VAP bundle addressed - continue lung protective strategies - continue bronchodilators with pulmonary hygiene per RT - wean per pulmonary driven protocols otherwise - continue enteral nutritiuon at goal rate as tolerated - continue Meropenem; de-escalate per ID rec's - JUANIS per chief console operator, MED CARE MANAGER - VTE prophylaxis-Heparin - prn Analgesia per CPOT score - avoid nephrotoxins, renally dose all medications - Maintenance of sleep-wake cycle, avoid delirium - Stress ulcer prophylaxis-PPI - mobility protocol, off loading and frequent turning for pressure ulcer prevention - Monitor hemodynamics closely CONDITION: CRITICAL PROGNOSIS: GUARDED CODE STATUS: FULL CODE The high probability of a clinically significant, sudden or life-threatening deterioration of the [respiratory, cardiovascular & GI] system(s) required my full and direct attention, intervention and personal management. The aggregate critical care time was [34] minutes without overlap. Time includes spent on; [x] Data Review and interpretation [x] Patient assessment and monitoring of vital signs [x] Documentation [x] Medication orders and management Subjective Date of service: 03/05/20 Principal diagnosis: HTNsive urgency; Morbid obesity; Ac. pancreatitis; A bdominal pain Interval history: Patient is seen today for: Hypertensive urgency; Morbid obesity; Acute pancreatitis; abdominal pain; Medical non compliance; Acute Toxic Metabolic Encephalopathy Seen and examined at bedside; 24hour events reviewed; nursing and respiratory care staff consulted; no adverse overnight events reported to me; resting peacefully in bed; remains on MVS; episodes of agitation overnight requiring prn doses of Lorazepam; On Klonipin, Fentanyl continuous infusion; Objective Vital Signs - 12hr 03/04/20 03/04/20 03/05/20 23:08 23:31 00:00 Temperature 100.6 F H Pulse Rate 90 91 H 89 Pulse Rate [ Anterior Bilateral Throughout] Pulse Rate [ 89 From Monitor] Respiratory 20 20 20 Rate Respiratory Rate [Anterior Bilateral Throughout] Blood Pressure 122/71 142/86 122/73 O2 Sat by Pulse 98 98 99 Oximetry 03/05/20 03/05/20 03/05/20 00:30 01:00 01:30 Temperature Pulse Rate 87 89 92 H Pulse Rate [ Anterior Bilateral Throughout] Pulse Rate [ From Monitor] Respiratory 20 20 20 Rate Respiratory Rate [Anterior Bilateral Throughout] Blood Pressure 122/72 125/78 137/84 O2 Sat by Pulse 99 99 99 Oximetry 03/05/20 03/05/20 03/05/20 02:00 02:30 03:01 Temperature Pulse Rate 92 H 113 H 128 H Pulse Rate [ 93 H Anterior Bilateral Throughout] Pulse Rate [ From Monitor] Respiratory 20 22 31 H Rate Respiratory 20 Rate [Anterior Bilateral Throughout] Blood Pressure 138/84 179/104 225/139 O2 Sat by Pulse 99 97 95 Oximetry 03/05/20 03/05/20 03/05/20 03:30 04:00 04:10 Temperature 98.8 F Pulse Rate 119 H 121 H 121 H Pulse Rate [ Anterior Bilateral Throughout] Pulse Rate [ 121 H From Monitor] Respiratory 29 H 21 Rate Respiratory Rate [Anterior Bilateral Throughout] Blood Pressure 174/119 182/95 182/95 O2 Sat by Pulse 97 97 Oximetry 03/05/20 03/05/20 03/05/20 04:31 04:54 05:00 Temperature Pulse Rate 111 H 100 H 103 H Pulse Rate [ Anterior Bilateral Throughout] Pulse Rate [ From Monitor] Respiratory 24 20 Rate Respiratory Rate [Anterior Bilateral Throughout] Blood Pressure 161/92 156/97 153/97 O2 Sat by Pulse 95 97 98 Oximetry 03/05/20 03/05/20 03/05/20 05:30 05:59 06:00 Temperature Pulse Rate 98 H 98 H 98 H Pulse Rate [ Anterior Bilateral Throughout] Pulse Rate [ From Monitor] Respiratory 20 20 Rate Respiratory Rate [Anterior Bilateral Throughout] Blood Pressure 134/76 130/83 136/81 O2 Sat by Pulse 98 99 Oximetry 03/05/20 03/05/20 03/05/20 06:30 07:00 07:31 Temperature Pulse Rate 96 H 94 H 129 H Pulse Rate [ Anterior Bilateral Throughout] Pulse Rate [ From Monitor] Respiratory 20 20 33 H Rate Respiratory Rate [Anterior Bilateral Throughout] Blood Pressure 143/81 128/77 O2 Sat by Pulse 99 99 97 Oximetry 03/05/20 03/05/20 03/05/20 08:00 08:30 08:43 Temperature 98.6 F Pulse Rate 119 H 119 H 117 H Pulse Rate [ Anterior Bilateral Throughout] Pulse Rate [ 119 H From Monitor] Respiratory 24 23 Rate Respiratory Rate [Anterior Bilateral Throughout] Blood Pressure 156/92 161/91 174/111 O2 Sat by Pulse 98 99 99 Oximetry 03/05/20 03/05/20 03/05/20 08:52 09:00 10:46 Temperature Pulse Rate 112 H 107 H Pulse Rate [ 115 H Anterior Bilateral Throughout] Pulse Rate [ From Monitor] Respiratory 21 Rate Respiratory 23 Rate [Anterior Bilateral Throughout] Blood Pressure 143/83 135/75 O2 Sat by Pulse 98 Oximetry 03/05/20 10:47 Temperature Pulse Rate 107 H Pulse Rate [ Anterior Bilateral Throughout] Pulse Rate [ From Monitor] Respiratory Rate Respiratory Rate [Anterior Bilateral Throughout] Blood Pressure 135/75 O2 Sat by Pulse Oximetry Constitutional: no acute distress, other (Obese female with mildly increased respiratory effort at rest on MVS, sedated) Eyes: non-icteric ENT: oropharynx moist, other (ETT 24 cm TY, NIGEL HD trialysis catheter) Neck: supple, no lymphadenopathy, no JVD Effort: normal Ascultation: Bilateral: diminished breath sounds (at the bases), rhonchi Percussion: Bilateral: not dull Cardiovascular: regular rate and rhythm, other (S1,S2) Gastrointestinal: hypoactive bowel sounds, non-tender, other (distended and firm) Integumentary: normal Extremities: no cyanosis, no edema, pink and warm, pulses normal Neurologic: pupils equal and round, unable to assess (sedated) Psychiatric: mood appropriate, affect normal CBC and BMP: 03/04/20 04:05 03/06/20 04:40 ABG, PT/INR, D-dimer: ABG ABG pH 7.405 pH Units (7.350-7.450) 03/05/20 05:04 POC ABG pCO2 31.8 mmHg (32.0-48.0) L 03/03/20 04:00 ABG pCO2 43.1 mm Hg 03/05/20 05:04 POC ABG pO2 83.1 mmHg (83-108) 03/03/20 04:00 ABG pO2 62.5 mm Hg (80.0-90.0) L 03/05/20 05:04 POC ABG HCO3 17.7 03/03/20 04:00 ABG O2 Saturation 92.1 % (95.0-99.0) L 03/05/20 05:04 PT/INR, D-dimer PT 13.7 Sec. (12.2-14.9) 02/25/20 03:49 INR 1.03 (0.87-1.13) 02/25/20 03:49 Abnormal lab findings: Abnormal Labs 02/24/20 02/24/20 02/24/20 02:53 02:53 Unknown WBC 12.7 H Hgb 10.0 L RBC Hct MCV 70 L MCH 22 L RDW 17.9 H Plt Count 458 H Lymph % (Auto) 8.9 L Lymph # 1.1 L Crisp # Lymph # (Auto) Crisp # (Auto) Seg Neutrophils % 84.2 H Seg Neutrophils # 10.7 H Seg Neuts % (Manual) Lymphocytes % (Manual) Nucleated RBC % Seg Neutrophils # Man Lymphocytes # (Manual) Monocytes # (Manual) ABG pH POC ABG pCO2 POC ABG pO2 ABG pO2 ABG HCO3 ABG O2 Saturation ABG Base Excess ABG Hemoglobin ABG Oxyhemoglobin Oxyhemoglobin Sodium Potassium Chloride Carbon Dioxide BUN 27 H Creatinine 1.7 H Glucose 118 H POC Glucose Calcium Phosphorus Magnesium Direct Bilirubin Alkaline Phosphatase Albumin C-Reactive Protein Grwli-6-Ayabkltkm PEP Interpretation Lipase 232 H PTH Intact Urine WBC (Auto) 11.0 H Urine Creatinine Urine Total Protein ZINA Screen Crossmatch 02/25/20 02/25/20 02/25/20 00:03 03:49 03:49 WBC 29.1 H Hgb 9.4 L RBC Hct 30.2 L MCV 71 L MCH 22 L RDW 18.3 H Plt Count 525 H Lymph % (Auto) 3.4 L Lymph # 1.0 L Crisp # 1.0 H Lymph # (Auto) Crisp # (Auto) Seg Neutrophils % Seg Neutrophils # 26.4 H Seg Neuts % (Manual) Lymphocytes % (Manual) Nucleated RBC % Seg Neutrophils # Man Lymphocytes # (Manual) Monocytes # (Manual) ABG pH POC ABG pCO2 POC ABG pO2 ABG pO2 ABG HCO3 ABG O2 Saturation ABG Base Excess ABG Hemoglobin ABG Oxyhemoglobin Oxyhemoglobin Sodium Potassium Chloride Carbon Dioxide BUN Creatinine Glucose POC Glucose 126 H Calcium Phosphorus Magnesium Direct Bilirubin Alkaline Phosphatase Albumin C-Reactive Protein Zzwwv-2-Ansunkadp PEP Interpretation Lipase 1486 H PTH Intact Urine WBC (Auto) Urine Creatinine Urine Total Protein ZINA Screen Crossmatch 02/25/20 02/25/20 02/25/20 03:49 05:55 22:55 WBC Hgb RBC Hct MCV MCH RDW Plt Count Lymph % (Auto) Lymph # Crisp # Lymph # (Auto) Crisp # (Auto) Seg Neutrophils % Seg Neutrophils # Seg Neuts % (Manual) Lymphocytes % (Manual) Nucleated RBC % Seg Neutrophils # Man Lymphocytes # (Manual) Monocytes # (Manual) ABG pH POC ABG pCO2 POC ABG pO2 ABG pO2 ABG HCO3 ABG O2 Saturation ABG Base Excess ABG Hemoglobin ABG Oxyhemoglobin Oxyhemoglobin Sodium 136 L Potassium Chloride 97.9 L Carbon Dioxide 21 L BUN 39 H Creatinine 3.0 H D Glucose 118 H POC Glucose 124 H Calcium Phosphorus Magnesium Direct Bilirubin Alkaline Phosphatase Albumin 3.6 L C-Reactive Protein Iguql-4-Sjjvqtrgl PEP Interpretation Lipase PTH Intact Urine WBC (Auto) Urine Creatinine 161.0 H Urine Total Protein 150 H ZINA Screen Crossmatch 02/26/20 02/26/20 02/26/20 04:39 04:39 04:39 WBC 30.3 H Hgb 9.1 L RBC Hct 29.8 L MCV 71 L MCH 22 L RDW 18.2 H Plt Count 530 H Lymph % (Auto) Lymph # Crisp # Lymph # (Auto) Crisp # (Auto) Seg Neutrophils % Seg Neutrophils # Seg Neuts % (Manual) Lymphocytes % (Manual) Nucleated RBC % Seg Neutrophils # Man Lymphocytes # (Manual) Monocytes # (Manual) ABG pH POC ABG pCO2 POC ABG pO2 ABG pO2 ABG HCO3 ABG O2 Saturation ABG Base Excess ABG Hemoglobin ABG Oxyhemoglobin Oxyhemoglobin Sodium Potassium Chloride Carbon Dioxide 19 L BUN 44 H Creatinine 3.1 H Glucose 106 H POC Glucose Calcium 8.1 L Phosphorus Magnesium Direct Bilirubin Alkaline Phosphatase Albumin C-Reactive Protein Ajplx-3-Wwjdjrdjh PEP Interpretation Lipase 540 H PTH Intact Urine WBC (Auto) Urine Creatinine Urine Total Protein ZINA Screen Positive H Crossmatch 02/26/20 02/26/20 02/26/20 04:39 08:15 12:14 WBC Hgb RBC Hct MCV MCH RDW Plt Count Lymph % (Auto) Lymph # Crisp # Lymph # (Auto) Crisp # (Auto) Seg Neutrophils % Seg Neutrophils # Seg Neuts % (Manual) Lymphocytes % (Manual) Nucleated RBC % Seg Neutrophils # Man Lymphocytes # (Manual) Monocytes # (Manual) ABG pH POC ABG pCO2 POC ABG pO2 ABG pO2 ABG HCO3 ABG O2 Saturation ABG Base Excess ABG Hemoglobin ABG Oxyhemoglobin Oxyhemoglobin Sodium Potassium Chloride Carbon Dioxide BUN Creatinine Glucose POC Glucose 112 H Calcium Phosphorus Magnesium Direct Bilirubin Alkaline Phosphatase Albumin 2.8 L C-Reactive Protein Vhiay-8-Gowzxkxnn 0.7 H PEP Interpretation see below H Lipase PTH Intact 911.3 H Urine WBC (Auto) Urine Creatinine Urine Total Protein ZINA Screen Crossmatch 02/27/20 02/27/20 02/27/20 04:18 04:18 04:18 WBC 26.8 H Hgb 7.9 L RBC Hct 26.3 L MCV 70 L MCH 21 L RDW 18.0 H Plt Count 513 H Lymph % (Auto) Lymph # Crisp # Lymph # (Auto) Crisp # (Auto) Seg Neutrophils % Seg Neutrophils # Seg Neuts % (Manual) Lymphocytes % (Manual) Nucleated RBC % Seg Neutrophils # Man Lymphocytes # (Manual) Monocytes # (Manual) ABG pH POC ABG pCO2 POC ABG pO2 ABG pO2 ABG HCO3 ABG O2 Saturation ABG Base Excess ABG Hemoglobin ABG Oxyhemoglobin Oxyhemoglobin Sodium 135 L 135 L Potassium Chloride Carbon Dioxide 15 L 16 L BUN 50 H 51 H Creatinine 3.4 H 3.4 H Glucose POC Glucose Calcium 7.4 L 7.5 L Phosphorus Magnesium Direct Bilirubin Alkaline Phosphatase Albumin 3.0 L C-Reactive Protein 37.30 H Jokwe-8-Ofmbfrbdz PEP Interpretation Lipase 177 H PTH Intact Urine WBC (Auto) Urine Creatinine Urine Total Protein ZIAN Screen Crossmatch 02/27/20 02/28/20 02/28/20 16:57 05:07 05:07 WBC Hgb RBC Hct MCV MCH RDW Plt Count Lymph % (Auto) Lymph # Crisp # Lymph # (Auto) Crisp # (Auto) Seg Neutrophils % Seg Neutrophils # Seg Neuts % (Manual) Lymphocytes % (Manual) Nucleated RBC % Seg Neutrophils # Man Lymphocytes # (Manual) Monocytes # (Manual) ABG pH 7.336 L POC ABG pCO2 POC ABG pO2 ABG pO2 57.0 L ABG HCO3 16.4 L ABG O2 Saturation 88.2 L ABG Base Excess -8.4 L ABG Hemoglobin 10.4 L ABG Oxyhemoglobin Oxyhemoglobin 85.7 L Sodium Potassium Chloride Carbon Dioxide 14 L BUN 60 H Creatinine 4.2 H Glucose POC Glucose Calcium 8.2 L Phosphorus Magnesium Direct Bilirubin Alkaline Phosphatase Albumin C-Reactive Protein Xczzp-5-Ominxrrvu PEP Interpretation Lipase 155 H PTH Intact Urine WBC (Auto) Urine Creatinine Urine Total Protein ZINA Screen Crossmatch 02/28/20 02/28/20 02/28/20 05:56 11:05 11:05 WBC Hgb RBC Hct MCV MCH RDW Plt Count Lymph % (Auto) Lymph # Crisp # Lymph # (Auto) Crisp # (Auto) Seg Neutrophils % Seg Neutrophils # Seg Neuts % (Manual) Lymphocytes % (Manual) Nucleated RBC % Seg Neutrophils # Man Lymphocytes # (Manual) Monocytes # (Manual) ABG pH 7.317 L POC ABG pCO2 POC ABG pO2 76.2 L ABG pO2 ABG HCO3 16.4 L ABG O2 Saturation ABG Base Excess -8.9 L ABG Hemoglobin 6.6 L 7.6 L ABG Oxyhemoglobin Oxyhemoglobin 94.6 L Sodium Potassium Chloride Carbon Dioxide BUN Creatinine Glucose POC Glucose 115 H Calcium Phosphorus Magnesium Direct Bilirubin Alkaline Phosphatase Albumin C-Reactive Protein Hmdsu-6-Gtwnekdio PEP Interpretation Lipase PTH Intact Urine WBC (Auto) Urine Creatinine Urine Total Protein ZINA Screen Crossmatch 02/28/20 02/28/20 02/29/20 17:39 19:39 05:43 WBC Hgb RBC Hct MCV MCH RDW Plt Count Lymph % (Auto) Lymph # Crisp # Lymph # (Auto) Crisp # (Auto) Seg Neutrophils % Seg Neutrophils # Seg Neuts % (Manual) Lymphocytes % (Manual) Nucleated RBC % Seg Neutrophils # Man Lymphocytes # (Manual) Monocytes # (Manual) ABG pH 7.300 L POC ABG pCO2 POC ABG pO2 ABG pO2 117.5 H ABG HCO3 15.0 L ABG O2 Saturation ABG Base Excess -10.5 L ABG Hemoglobin 6.4 L ABG Oxyhemoglobin Oxyhemoglobin Sodium Potassium Chloride Carbon Dioxide BUN Creatinine Glucose POC Glucose 120 H 66 L Calcium Phosphorus Magnesium Direct Bilirubin Alkaline Phosphatase Albumin C-Reactive Protein Myqxk-1-Bycuruaxa PEP Interpretation Lipase PTH Intact Urine WBC (Auto) Urine Creatinine Urine Total Protein ZINA Screen Crossmatch 02/29/20 02/29/20 02/29/20 05:45 12:04 12:31 WBC Hgb RBC Hct MCV MCH RDW Plt Count Lymph % (Auto) Lymph # Crisp # Lymph # (Auto) Crisp # (Auto) Seg Neutrophils % Seg Neutrophils # Seg Neuts % (Manual) Lymphocytes % (Manual) Nucleated RBC % Seg Neutrophils # Man Lymphocytes # (Manual) Monocytes # (Manual) ABG pH 7.212 L POC ABG pCO2 POC ABG pO2 ABG pO2 ABG HCO3 ABG O2 Saturation ABG Base Excess ABG Hemoglobin 7.4 L ABG Oxyhemoglobin Oxyhemoglobin Sodium Potassium Chloride Carbon Dioxide BUN Creatinine Glucose POC Glucose 65 L 64 L Calcium Phosphorus Magnesium Direct Bilirubin Alkaline Phosphatase Albumin C-Reactive Protein Zthgy-1-Cxavgxxmv PEP Interpretation Lipase PTH Intact Urine WBC (Auto) Urine Creatinine Urine Total Protein ZINA Screen Crossmatch 02/29/20 02/29/20 02/29/20 14:22 14:22 18:20 WBC Hgb RBC Hct MCV MCH RDW Plt Count Lymph % (Auto) Lymph # Crisp # Lymph # (Auto) Crisp # (Auto) Seg Neutrophils % Seg Neutrophils # Seg Neuts % (Manual) Lymphocytes % (Manual) Nucleated RBC % Seg Neutrophils # Man Lymphocytes # (Manual) Monocytes # (Manual) ABG pH POC ABG pCO2 POC ABG pO2 ABG pO2 ABG HCO3 ABG O2 Saturation ABG Base Excess ABG Hemoglobin ABG Oxyhemoglobin Oxyhemoglobin Sodium Potassium Chloride Carbon Dioxide 16 L BUN 77 H Creatinine 4.7 H Glucose POC Glucose 66 L Calcium Phosphorus 7.50 H Magnesium 2.60 H Direct Bilirubin Alkaline Phosphatase Albumin 2.3 L C-Reactive Protein Hegsc-5-Jsaimkodu PEP Interpretation Lipase PTH Intact Urine WBC (Auto) Urine Creatinine Urine Total Protein ZINA Screen Crossmatch 02/29/20 03/01/20 03/01/20 18:24 04:05 04:37 WBC Hgb RBC Hct MCV MCH RDW Plt Count Lymph % (Auto) Lymph # Crisp # Lymph # (Auto) Crisp # (Auto) Seg Neutrophils % Seg Neutrophils # Seg Neuts % (Manual) Lymphocytes % (Manual) Nucleated RBC % Seg Neutrophils # Man Lymphocytes # (Manual) Monocytes # (Manual) ABG pH 7.271 L 7.347 L POC ABG pCO2 POC ABG pO2 ABG pO2 133.5 H ABG HCO3 15.8 L ABG O2 Saturation ABG Base Excess -8.9 L ABG Hemoglobin 7.2 L 7.6 L ABG Oxyhemoglobin 93.4 L Oxyhemoglobin Sodium Potassium Chloride 107.6 H Carbon Dioxide 14 L BUN 83 H Creatinine 5.6 H Glucose POC Glucose Calcium Phosphorus 6.10 H Magnesium 2.40 H Direct Bilirubin Alkaline Phosphatase Albumin C-Reactive Protein Izzss-3-Lkejuxqfa PEP Interpretation Lipase PTH Intact Urine WBC (Auto) Urine Creatinine Urine Total Protein ZINA Screen Crossmatch 03/01/20 03/01/20 03/01/20 11:06 16:22 18:12 WBC 30.5 H Hgb 6.2 L RBC 2.92 L Hct 20.8 L MCV 71 L MCH 21 L RDW 18.2 H Plt Count 560 H Lymph % (Auto) Lymph # Crisp # Lymph # (Auto) Crisp # (Auto) Seg Neutrophils % Seg Neutrophils # Seg Neuts % (Manual) 79.0 H Lymphocytes % (Manual) 3.0 L Nucleated RBC % Seg Neutrophils # Man 24.1 H Lymphocytes # (Manual) 0.9 L Monocytes # (Manual) 2.1 H ABG pH POC ABG pCO2 POC ABG pO2 ABG pO2 ABG HCO3 ABG O2 Saturation ABG Base Excess ABG Hemoglobin ABG Oxyhemoglobin Oxyhemoglobin Sodium Potassium 5.3 H D Chloride Carbon Dioxide 11 L BUN 77 H Creatinine 5.0 H Glucose 54 L POC Glucose 121 H Calcium Phosphorus Magnesium Direct Bilirubin Alkaline Phosphatase Albumin 3.0 L C-Reactive Protein 36.50 H Rxxen-5-Jliwpmzll PEP Interpretation Lipase PTH Intact Urine WBC (Auto) Urine Creatinine Urine Total Protein ZINA Screen Crossmatch 03/01/20 03/01/20 03/01/20 18:30 23:37 Unknown WBC Hgb RBC Hct MCV MCH RDW Plt Count Lymph % (Auto) Lymph # Crisp # Lymph # (Auto) Crisp # (Auto) Seg Neutrophils % Seg Neutrophils # Seg Neuts % (Manual) Lymphocytes % (Manual) Nucleated RBC % Seg Neutrophils # Man Lymphocytes # (Manual) Monocytes # (Manual) ABG pH POC ABG pCO2 POC ABG pO2 ABG pO2 ABG HCO3 ABG O2 Saturation ABG Base Excess ABG Hemoglobin ABG Oxyhemoglobin Oxyhemoglobin Sodium Potassium Chloride Carbon Dioxide BUN Creatinine Glucose POC Glucose 125 H Calcium Phosphorus Magnesium Direct Bilirubin Alkaline Phosphatase Albumin C-Reactive Protein Rnjdp-3-Muoqdajug PEP Interpretation Lipase 297 H PTH Intact Urine WBC (Auto) Urine Creatinine Urine Total Protein ZINA Screen Crossmatch See Detail 03/02/20 03/02/20 03/02/20 04:00 05:36 05:36 WBC 26.0 H Hgb 7.8 L RBC 3.26 L Hct 24.2 L MCV 74 L MCH 24 L RDW 21.3 H Plt Count 508 H Lymph % (Auto) Lymph # Crisp # Lymph # (Auto) Crisp # (Auto) Seg Neutrophils % Seg Neutrophils # Seg Neuts % (Manual) 86.0 H Lymphocytes % (Manual) 4.0 L Nucleated RBC % 2.0 H Seg Neutrophils # Man 22.4 H Lymphocytes # (Manual) 1.0 L Monocytes # (Manual) ABG pH POC ABG pCO2 27.8 L POC ABG pO2 ABG pO2 ABG HCO3 ABG O2 Saturation ABG Base Excess ABG Hemoglobin 8 L ABG Oxyhemoglobin Oxyhemoglobin Sodium Potassium Chloride Carbon Dioxide 17 L BUN 85 H Creatinine 5.6 H Glucose 109 H POC Glucose Calcium Phosphorus Magnesium 2.50 H Direct Bilirubin Alkaline Phosphatase Albumin 2.3 L C-Reactive Protein Gsgjy-1-Awywowbar PEP Interpretation Lipase PTH Intact Urine WBC (Auto) Urine Creatinine Urine Total Protein ZINA Screen Crossmatch 03/03/20 03/03/20 03/03/20 04:00 04:36 04:36 WBC Hgb RBC Hct MCV MCH RDW Plt Count Lymph % (Auto) Lymph # Crisp # Lymph # (Auto) Crisp # (Auto) Seg Neutrophils % Seg Neutrophils # Seg Neuts % (Manual) Lymphocytes % (Manual) Nucleated RBC % Seg Neutrophils # Man Lymphocytes # (Manual) Monocytes # (Manual) ABG pH POC ABG pCO2 31.8 L POC ABG pO2 ABG pO2 ABG HCO3 ABG O2 Saturation ABG Base Excess ABG Hemoglobin 8.6 L ABG Oxyhemoglobin Oxyhemoglobin Sodium 147 H Potassium Chloride 108.4 H Carbon Dioxide 16 L BUN 87 H Creatinine 6.2 H Glucose POC Glucose Calcium Phosphorus Magnesium 2.50 H Direct Bilirubin 1.0 H Alkaline Phosphatase Albumin 2.4 L C-Reactive Protein Bteev-3-Khrwnsctu PEP Interpretation Lipase 119 H PTH Intact Urine WBC (Auto) Urine Creatinine Urine Total Protein ZINA Screen Crossmatch 03/03/20 03/03/20 03/03/20 04:36 12:48 17:48 WBC 28.0 H Hgb 8.1 L RBC 3.41 L Hct 25.3 L MCV 74 L MCH 24 L RDW 20.8 H Plt Count 557 H Lymph % (Auto) Lymph # Crisp # Lymph # (Auto) Crisp # (Auto) Seg Neutrophils % Seg Neutrophils # Seg Neuts % (Manual) 82.0 H Lymphocytes % (Manual) 4.0 L Nucleated RBC % Seg Neutrophils # Man 23.0 H Lymphocytes # (Manual) 1.1 L Monocytes # (Manual) 2.0 H ABG pH POC ABG pCO2 POC ABG pO2 ABG pO2 ABG HCO3 ABG O2 Saturation ABG Base Excess ABG Hemoglobin ABG Oxyhemoglobin Oxyhemoglobin Sodium Potassium Chloride Carbon Dioxide BUN Creatinine Glucose POC Glucose 131 H 113 H Calcium Phosphorus Magnesium Direct Bilirubin Alkaline Phosphatase Albumin C-Reactive Protein Wphpk-9-Qvfbxrtfy PEP Interpretation Lipase PTH Intact Urine WBC (Auto) Urine Creatinine Urine Total Protein ZINA Screen Crossmatch 03/03/20 03/04/20 03/04/20 23:43 03:43 04:05 WBC Hgb RBC Hct MCV MCH RDW Plt Count Lymph % (Auto) Lymph # Crisp # Lymph # (Auto) Crisp # (Auto) Seg Neutrophils % Seg Neutrophils # Seg Neuts % (Manual) Lymphocytes % (Manual) Nucleated RBC % Seg Neutrophils # Man Lymphocytes # (Manual) Monocytes # (Manual) ABG pH POC ABG pCO2 POC ABG pO2 ABG pO2 57.4 L ABG HCO3 27.2 H ABG O2 Saturation 88.6 L ABG Base Excess ABG Hemoglobin ABG Oxyhemoglobin Oxyhemoglobin Sodium Potassium 3.3 L Chloride Carbon Dioxide BUN 65 H Creatinine 5.3 H Glucose 152 H POC Glucose 149 H Calcium Phosphorus Magnesium Direct Bilirubin 0.7 H Alkaline Phosphatase Albumin 2.5 L C-Reactive Protein Etcyf-0-Wbigwvgve PEP Interpretation Lipase PTH Intact Urine WBC (Auto) Urine Creatinine Urine Total Protein ZINA Screen Crossmatch 03/04/20 03/04/20 03/04/20 04:05 05:26 12:21 WBC 30.1 H Hgb 8.2 L RBC 3.44 L Hct 25.2 L MCV 73 L MCH 24 L RDW 20.7 H Plt Count 554 H Lymph % (Auto) 3.3 L Lymph # Crisp # Lymph # (Auto) 1.0 L Crisp # (Auto) 2.0 H Seg Neutrophils % 88.6 H Seg Neutrophils # 26.6 H Seg Neuts % (Manual) Lymphocytes % (Manual) Nucleated RBC % Seg Neutrophils # Man Lymphocytes # (Manual) Monocytes # (Manual) ABG pH POC ABG pCO2 POC ABG pO2 ABG pO2 ABG HCO3 ABG O2 Saturation ABG Base Excess ABG Hemoglobin ABG Oxyhemoglobin Oxyhemoglobin Sodium Potassium Chloride Carbon Dioxide BUN Creatinine Glucose POC Glucose 136 H 155 H Calcium Phosphorus Magnesium Direct Bilirubin Alkaline Phosphatase Albumin C-Reactive Protein Ejmhm-0-Nlssfbukt PEP Interpretation Lipase PTH Intact Urine WBC (Auto) Urine Creatinine Urine Total Protein ZINA Screen Crossmatch 03/04/20 03/04/20 03/04/20 18:02 19:00 23:24 WBC Hgb RBC Hct MCV MCH RDW Plt Count Lymph % (Auto) Lymph # Crisp # Lymph # (Auto) Crisp # (Auto) Seg Neutrophils % Seg Neutrophils # Seg Neuts % (Manual) Lymphocytes % (Manual) Nucleated RBC % Seg Neutrophils # Man Lymphocytes # (Manual) Monocytes # (Manual) ABG pH POC ABG pCO2 POC ABG pO2 ABG pO2 ABG HCO3 ABG O2 Saturation ABG Base Excess ABG Hemoglobin ABG Oxyhemoglobin Oxyhemoglobin Sodium Potassium Chloride Carbon Dioxide BUN Creatinine Glucose POC Glucose 124 H 115 H Calcium Phosphorus Magnesium Direct Bilirubin Alkaline Phosphatase Albumin C-Reactive Protein Kyqbg-8-Uldjunvgh PEP Interpretation Lipase 72 H PTH Intact Urine WBC (Auto) Urine Creatinine Urine Total Protein ZINA Screen Crossmatch 03/05/20 03/05/20 03/05/20 05:04 05:29 06:00 WBC Hgb RBC Hct MCV MCH RDW Plt Count Lymph % (Auto) Lymph # Crisp # Lymph # (Auto) Crisp # (Auto) Seg Neutrophils % Seg Neutrophils # Seg Neuts % (Manual) Lymphocytes % (Manual) Nucleated RBC % Seg Neutrophils # Man Lymphocytes # (Manual) Monocytes # (Manual) ABG pH POC ABG pCO2 POC ABG pO2 ABG pO2 62.5 L ABG HCO3 26.4 H ABG O2 Saturation 92.1 L ABG Base Excess ABG Hemoglobin 9.3 L ABG Oxyhemoglobin Oxyhemoglobin 89.9 L Sodium Potassium Chloride Carbon Dioxide BUN 54 H Creatinine 5.4 H Glucose 125 H POC Glucose 134 H Calcium Phosphorus Magnesium Direct Bilirubin 0.6 H Alkaline Phosphatase 133 H Albumin 2.5 L C-Reactive Protein Neffd-5-Gspxfiblr PEP Interpretation Lipase PTH Intact Urine WBC (Auto) Urine Creatinine Urine Total Protein ZINA Screen Crossmatch Chest x-ray: image reviewed Allied health notes reviewed: RT
--- NOTE | 2020-03-05 11:14 | Cat Scan Report ---
CT ABDOMEN AND PELVIS WITHOUT CONTRAST INDICATION / CLINICAL INFORMATION: Acute Pancreatitis. TECHNIQUE: Axial CT images were obtained through the abdomen and pelvis without IV contrast. All CT scans at [facility] location are performed using CT dose reduction for ALARA by means of automated exposure control. COMPARISON: CT abdomen and pelvis without contrast from 03/01/2020. FINDINGS: LOWER CHEST: Interval decrease in size of the pleural effusions with improved associated atelectasis. Cardiomegaly is stable. LIVER: No significant abnormality. GALLBLADDER: Surgically absent. BILE DUCTS: No significant abnormality. PANCREAS: Previously described acute pancreatitis has progressed with increased peripancreatic inflam mation and disorganized fluid. No distinct necrosis or hemorrhage. No other significant abnormality. SPLEEN: No significant abnormality. ADRENALS: No significant abnormality. RIGHT KIDNEY / URETER: No significant abnormality. LEFT KIDNEY / URETER: No significant abnormality. STOMACH / SMALL BOWEL: Stable positioning of the NG tube. Contrast administered through the NG tube o pacifies the stomach and small bowel as expected. No acute abnormality. COLON: Mild sigmoid diverticulosis without evidence of diverticulitis. No other significant abnormali ty. There is expected opacification of the colon by contrast. APPENDIX: No significant abnormality. PERITONEUM: There is a small amount of free fluid along the pelvis that is similar to the prior study . No free air. No fluid collection. Generalized edema/congestion has worsened. LYMPH NODES: No significant adenopathy. AORTA / ARTERIES: No significant abnormality. IVC / VEINS: No significant abnormality. URINARY BLADDER: No significant abnormality. REPRODUCTIVE ORGANS: No significant abnormality. ADDITIONAL FINDINGS: None. SKELETAL SYSTEM: No acute abnormality or significant change. IMPRESSION: 1. Worsening of acute pancreatitis without distinct associated necrosis or hemorrhage by noncontrast imaging. No associated organized drainable fluid collection/abscess is seen. 2. Additional findings as above. Signer Name: Nic Olvera MD Signed: 03/05/2020 11:09 AM Workstation Name: [id number]
--- NOTE | 2020-03-05 11:51 | Progress Note ---
Assessment and Plan Cultures: Urine culture grew 10-100,000 usual xavier. Blood culture 02/26/2020 no growth 02/29/2020 sputum culture: rare usual xavier Assessment: 39 years old female with history of hypertension, previous kidney stone, hyperlipidemia and obesity admitted on 02/24/2020 due to a week history of severe epigastric abdominal pain radiated to the right flank and back: #Acute sepsis: Likely secondary to severe pancreatitis and related complications. Remains critically ill. #Acute severe pancreatitis: Unclear etiology. Initial non-contrasted CT showed no evidence of necrosis or pseudocyst or abscess formation. Repeat CT 03/05 with interval worsening of acute pancreatitis without clear evidence of necrosis, h owever was done without IV contrast due to her renal function. #Acute renal failure: now requiring dialysis. Nephrology on board. #Acute respiratory hypoxic failure: on the vent. #?Alcohol abuse Recommendations: -continue with IV Meropenem, renally dosed Louie Graves MD, FACP [facility] C: [phone] O: [phone] F: [phone] Subjective Date of service: 03/05/20 Principal diagnosis: HTNsive urgency; Morbid obesity; Ac. pancreatitis; Abdominal pain Interval history: Low grade fevers continue. Remains intubated on the vent. Objective - Exam Narrative Exam: Physical Exam: Constitutional: sedated, intubated, on the vent Head, Ears, Nose: Normocephalic, atraumatic. External ears, nose normal Eyes: Conjunctivae/corneas clear. No icterus. No ptosis. Neck: intubated Oral: intubated Cardiovascular: S1, S2 + Respiratory: AE fair but reduced in the bases GI: distended, bowel sounds hypoactive Musculoskeletal: No pedal edema, no cyanosis. HD cath + Skin: No rash or abscess Hem/Lymphatic: No palpable cervical or supraclavicular nodes. No lymphangitis Psych: no agitation, calm Neurological: sedated, intubated, on the vent, exam limited - Constitutional Vitals: Vital Signs Temp Pulse Resp BP Pulse Ox 98.6 F 104 H 20 125/76 98 03/05/20 08:00 03/05/20 11:00 03/05/20 11:00 03/05/20 11:00 03/05/20 11:00 Temperature -Last 24 Hours Temperature 98.6 F Temperature 98.8 F Temperature 100.6 F Temperature 100.6 F Temperature 100.3 F Temperature 100.8 F Temperature 97.9 F Temperature 98.6 F - Labs CBC & Chem 7: 03/04/20 04:05 03/05/20 06:00 Labs: Abnormal lab results 03/04/20 03/04/20 03/04/20 Range/Units 12:21 18:02 19:00 ABG pO2 (80.0-90.0) mm Hg ABG HCO3 (20.0-26.0) mmol/L ABG O2 Saturation (95.0-99.0) % ABG Hemoglobin (12.0-16.0) gm/dl Oxyhemoglobin (95.0-99.0) % BUN (7-17) mg/dL Creatinine (0.6-1.2) mg/dL Glucose (65-100) mg/dL POC Glucose 155 H 124 H (70-105) Direct Bilirubin (0-0.2) mg/dL Alkaline Phosphatase (35-129) units/L Albumin (3.9-5) g/dL Lipase 72 H (13-60) units/L 03/04/20 03/05/20 03/05/20 Range/Units 23:24 05:04 05:29 ABG pO2 62.5 L (80.0-90.0) mm Hg ABG HCO3 26.4 H (20.0-26.0) mmol/L ABG O2 Saturation 92.1 L (95.0-99.0) % ABG Hemoglobin 9.3 L (12.0-16.0) gm/dl Oxyhemoglobin 89.9 L (95.0-99.0) % BUN (7-17) mg/dL Creatinine (0.6-1.2) mg/dL Glucose (65-100) mg/dL POC Glucose 115 H 134 H (70-105) Direct Bilirubin (0-0.2) mg/dL Alkaline Phosphatase (35-129) units/L Albumin (3.9-5) g/dL Lipase (13-60) units/L 03/05/20 Range/Units 06:00 ABG pO2 (80.0-90.0) mm Hg ABG HCO3 (20.0-26.0) mmol/L ABG O2 Saturation (95.0-99.0) % ABG Hemoglobin (12.0-16.0) gm/dl Oxyhemoglobin (95.0-99.0) % BUN 54 H (7-17) mg/dL Creatinine 5.4 H (0.6-1.2) mg/dL Glucose 125 H (65-100) mg/dL POC Glucose (70-105) Direct Bilirubin 0.6 H (0-0.2) mg/dL Alkaline Phosphatase 133 H (35-129) units/L Albumin 2.5 L (3.9-5) g/dL Lipase (13-60) units/L
[2020-03-05] MEDS ORDERED: SODIUM CHLORIDE 0.9% 100 ML IV PRN (12:08)
--- NOTE | 2020-03-05 12:39 | Progress Note ---
Assessment and Plan # Acute Kidney Injury/Chronic Kidney Disease: suspect JUANIS in setting of hypertensive urgency and pre-renal injury from pancreatitis. Additional JUANIS risk factors include use of NSAID (Toradol) and PPI. 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 Creatinine has worsened from 1.7->3.0->3.1->3.4->4.2->4.7->5.6->5.0> 6.2 since admission, now intubated -Status post Vas-Cath placement on 12/02/2019 and initiation of dialysis. -Hyperkalemia and acidosis has been corrected. Volume status is improving. Urine output however has declined. Shall plan to dialyze patient again tomorrow. Shall give 1 dose of loop diuretic today . - strict Is/Os - ordered serologies-> ANCA negative; minimal proteinuria per UP/C, PTH high for CKD; reviewed urinalysis which does show hematuria and proteinuria - BP control as below # Hypertensive Emergency: BPs improved, off Cardene gtt, agree to titrate back to home amlodipine, metoprolol. On HANNA-I at home, hold for now. # Acidosis: Bicarbonate level is back up to 24. Discontinue bicarbonate drip . # Pancreatitis: appreciate GI, pain management per primary. # Thrombocytosis # Leukocytosis Subjective Date of service: 03/05/20 Principal diagnosis: HTNsive urgency; Morbid obesity; Ac. pancreatitis; Abdominal pain Interval history: Patient remains on the ventilator. Sedated. Currently on 30% FiO2. Uneventful hemodialysis yesterday. Objective - Vital Signs Vital signs: Vital Signs - 12hr 03/05/20 03/05/20 03/05/20 01:00 01:30 02:00 Temperature Pulse Rate 89 92 H 92 H Pulse Rate [ 93 H Anterior Bilateral Throughout] Pulse Rate [ From Monitor] Respiratory 20 20 20 Rate Respiratory Rate [Abdomen] Respiratory 20 Rate [Anterior Bilateral Throughout] Blood Pressure 125/78 137/84 138/84 O2 Sat by Pulse 99 99 99 Oximetry 03/05/20 03/05/20 03/05/20 02:30 03:01 03:30 Temperature Pulse Rate 113 H 128 H 119 H Pulse Rate [ Anterior Bilateral Throughout] Pulse Rate [ From Monitor] Respiratory 22 31 H 29 H Rate Respiratory Rate [Abdomen] Respiratory Rate [Anterior Bilateral Throughout] Blood Pressure 179/104 225/139 174/119 O2 Sat by Pulse 97 95 97 Oximetry 03/05/20 03/05/20 03/05/20 04:00 04:10 04:31 Temperature 98.8 F Pulse Rate 121 H 121 H 111 H Pulse Rate [ Anterior Bilateral Throughout] Pulse Rate [ 121 H From Monitor] Respiratory 21 24 Rate Respiratory Rate [Abdomen] Respiratory Rate [Anterior Bilateral Throughout] Blood Pressure 182/95 182/95 161/92 O2 Sat by Pulse 97 95 Oximetry 03/05/20 03/05/20 03/05/20 04:54 05:00 05:30 Temperature Pulse Rate 100 H 103 H 98 H Pulse Rate [ Anterior Bilateral Throughout] Pulse Rate [ From Monitor] Respiratory 20 20 Rate Respiratory Rate [Abdomen] Respiratory Rate [Anterior Bilateral Throughout] Blood Pressure 156/97 153/97 134/76 O2 Sat by Pulse 97 98 98 Oximetry 03/05/20 03/05/20 03/05/20 05:59 06:00 06:30 Temperature Pulse Rate 98 H 98 H 96 H Pulse Rate [ Anterior Bilateral Throughout] Pulse Rate [ From Monitor] Respiratory 20 20 Rate Respiratory Rate [Abdomen] Respiratory Rate [Anterior Bilateral Throughout] Blood Pressure 130/83 136/81 143/81 O2 Sat by Pulse 99 99 Oximetry 03/05/20 03/05/20 03/05/20 07:00 07:31 08:00 Temperature 98.6 F Pulse Rate 94 H 129 H 119 H Pulse Rate [ Anterior Bilateral Throughout] Pulse Rate [ 119 H From Monitor] Respiratory 20 33 H 24 Rate Respiratory Rate [Abdomen] Respiratory Rate [Anterior Bilateral Throughout] Blood Pressure 128/77 156/92 O2 Sat by Pulse 99 97 98 Oximetry 03/05/20 03/05/20 03/05/20 08:30 08:43 08:52 Temperature Pulse Rate 119 H 117 H Pulse Rate [ 115 H Anterior Bilateral Throughout] Pulse Rate [ From Monitor] Respiratory 23 Rate Respiratory Rate [Abdomen] Respiratory 23 Rate [Anterior Bilateral Throughout] Blood Pressure 161/91 174/111 O2 Sat by Pulse 99 99 Oximetry 03/05/20 03/05/20 03/05/20 09:00 09:30 10:00 Temperature Pulse Rate 112 H 108 H Pulse Rate [ Anterior Bilateral Throughout] Pulse Rate [ From Monitor] Respiratory 21 22 Rate Respiratory 26 H Rate [Abdomen] Respiratory Rate [Anterior Bilateral Throughout] Blood Pressure 143/83 150/82 O2 Sat by Pulse 98 99 Oximetry 03/05/20 03/05/20 03/05/20 10:25 10:31 10:46 Temperature Pulse Rate 121 H 123 H 107 H Pulse Rate [ Anterior Bilateral Throughout] Pulse Rate [ From Monitor] Respiratory 26 H 21 Rate Respiratory Rate [Abdomen] Respiratory Rate [Anterior Bilateral Throughout] Blood Pressure 135/75 O2 Sat by Pulse 98 98 Oximetry 03/05/20 03/05/20 03/05/20 10:47 11:00 11:30 Temperature Pulse Rate 107 H 104 H 86 Pulse Rate [ Anterior Bilateral Throughout] Pulse Rate [ From Monitor] Respiratory 20 20 Rate Respiratory Rate [Abdomen] Respiratory Rate [Anterior Bilateral Throughout] Blood Pressure 135/75 125/76 124/71 O2 Sat by Pulse 98 99 Oximetry 03/05/20 12:00 Temperature 98.4 F Pulse Rate 84 Pulse Rate [ Anterior Bilateral Throughout] Pulse Rate [ 84 From Monitor] Respiratory 20 Rate Respiratory Rate [Abdomen] Respiratory Rate [Anterior Bilateral Throughout] Blood Pressure 116/67 O2 Sat by Pulse 98 Oximetry - General Appearance General appearance: well-developed, well-nourished, appears stated age, intubated EENT: PERRL, mucous membranes moist Neck: no JVD, no thyromegaly Respiratory: Present: Clear to Ascultation Cardiology: regular, normal heart rate Gastrointestinal: normal, other (Bowel sounds hypoactive) Integumentary: no rash, other (No edema) - Lab 03/04/20 04:05 03/05/20 06:00 Most recent lab results ABG pH 7.405 pH Units (7.350-7.450) 03/05/20 05:04 ABG pCO2 43.1 mm Hg 03/05/20 05:04 ABG pO2 62.5 mm Hg (80.0-90.0) L 03/05/20 05:04 ABG HCO3 26.4 mmol/L (20.0-26.0) H 03/05/20 05:04 ABG O2 Saturation 92.1 % (95.0-99.0) L 03/05/20 05:04 Calcium 9.1 mg/dL (8.4-10.2) 03/05/20 06:00 Phosphorus 6.10 mg/dL (2.5-4.5) H 03/01/20 04:37 Magnesium 2.20 mg/dL (1.7-2.3) 03/04/20 04:05 Urine Creatinine 161.0 mg/dL (0.1-20.0) H 02/25/20 22:55 Urine Total Protein 150 mg/dL (5-11.8) H 02/25/20 22:55 Medications & Allergies - Medications Allergies/Adverse Reactions: Allergies No Known Allergies Allergy (Unverified 09/05/19 10:15) Home Medications: Home Medications Medication Instructions Recorded Confirmed Last Taken Type Amlodipine Besylate [Norvasc] 10 mg PO DAILY 09/05/19 02/24/20 09/04/19 History Furosemide [Lasix] 20 mg PO QDAY #30 tablet 09/05/19 02/24/20 Unknown Rx Lisinopril [Zestril] 5 mg PO DAILY #30 tablet 09/05/19 02/24/20 Unknown Rx Metoprolol [Lopressor TAB] 25 mg PO BID #60 tablet 09/05/19 02/24/20 Unknown Rx Active Medications: Generic Name Dose Route Start Last Admin Trade Name Freq PRN Reason Stop Dose Admin Acetaminophen 650 mg 02/26/20 16:23 03/04/20 21:50 Tylenol PO 650 mg Q4H PRN Administration Pain, Mild (1-3)/ Temp >100. Albuterol 2.5 mg 02/27/20 17:55 Proventil IH Q4HRT PRN Shortness Of Breath Albuterol/Ipratropium 1 ampul 02/28/20 12:17 03/05/20 08:52 Duoneb *Not For Prn Use* IH 1 ampul Q6HRT INDU Administration Amlodipine Besylate 10 mg 02/28/20 10:00 03/05/20 10:46 Amlodipine PO 10 mg QDAY INDU Administration Lipase/Protease/Amylase 1 each 03/01/20 08:46 Pancrealivia Davis 10,500 Unit FEEDTUBE PRN PRN For Clogged Feeding Tube Dextrose 50 ml 02/29/20 08:00 03/01/20 00:20 D50w (25gm) Syringe IV 10 ml Q30MIN PRN Administration HYPOGLYCEMIA Protocol Fentanyl 50 mcg 02/29/20 15:35 03/04/20 20:35 Sublimaze IV 50 mcg Q10MIN PRN Administration ANALGESIA Haloperidol Lactate 5 mg 02/28/20 11:30 03/05/20 10:48 Haldol IV 5 mg Q1H PRN Administration Unrespon. to mult. doses BZD's Heparin Sodium (Porcine) 5,000 unit 02/24/20 14:00 03/05/20 05:59 Heparin SUB-Q 5,000 unit Q8HR INDU Administration Hydralazine HCl 25 mg 03/04/20 14:00 03/05/20 05:59 Apresoline PO 25 mg Q8HR INDU Administration Hydrophilic Ointment 1 applic 02/29/20 15:35 Vaseline Lip Therapy TP Q2HR PRN Dry Lips Nicardipine HCl 50 mg/ Sodium 250 mls @ 25 mls/hr 02/24/20 07:00 02/28/20 12:51 Chloride IV 0 mg/hr TITR INDU 0 mls/hr Titration Protocol 5 MG/HR Fentanyl Citrate 2,000 mcg in 100 mls @ 4.55 mls/hr 02/29/20 16:00 03/05/20 12:05 Fentanyl Drip Premix IV 3 mcg/kg/hr TITR INDU 13.65 mls/hr Titration Protocol 1 MCG/KG/HR MEROPENEM/NS 1 GRAM/100 ML 1 gram in 100 mls @ 100 mls/hr 03/03/20 18:00 03/04/20 18:26 Merrem/Ns 1 Gram/100 Ml IV 100 mls/hr QPM INDU Administration Protocol Sodium Chloride 100 mls @ 999 mls/hr 03/04/20 08:56 Nacl 0.9% IV NIKOLAY PRN Hypotension Sodium Chloride 100 mls @ 999 mls/hr 03/05/20 12:08 Nacl 0.9% IV NIKOLAY PRN Hypotension Labetalol HCl 10 mg 02/28/20 09:00 03/05/20 04:10 Labetalol IV 10 mg Q4H PRN Administration Hypertension Lorazepam 1 mg 02/28/20 04:20 03/05/20 10:48 Ativan IV 1 mg Q4H PRN Administration Agitation Lorazepam 2 mg 02/28/20 11:30 02/29/20 11:43 Ativan IV 2 mg Q1H PRN Administration CIWA-Ar 8-15 Lorazepam 4 mg 02/28/20 11:30 02/29/20 16:19 Ativan IV 4 mg Q1H PRN Administration CIWA-Ar 16-25 Metoprolol Tartrate 25 mg 02/28/20 10:00 03/05/20 10:47 Metoprolol PO 25 mg BID INDU Administration Midazolam HCl 2 mg 02/29/20 15:35 02/29/20 17:00 Versed IV 2 mg Q10MIN PRN Administration Sedation Multi-Ingred Cream/Lotion/Oil/Oint 1 applic 02/29/20 15:35 Artificial Tears Ophth Oint OU Q4HR PRN Dry Eye(s) Ondansetron HCl 4 mg 02/24/20 06:45 02/25/20 23:33 Zofran IV 4 mg Q8H PRN Administration Nausea And Vomiting Pantoprazole Sodium 40 mg 02/24/20 13:00 03/05/20 10:46 Protonix IV 40 mg QDAY INDU Administration Quetiapine Fumarate 100 mg 03/05/20 12:00 Seroquel PO BID INDU Scopolamine 1 each 03/04/20 16:00 03/04/20 15:58 Transderm-Scop TD 1 each Q3D INDU Administration Simple Syrup 15 ml 03/01/20 08:46 Simple Syrup FEEDTUBE PRN PRN Hypoglycemia Simple Syrup 30 ml 03/01/20 08:46 Simple Syrup FEEDTUBE PRN PRN Hypoglycemia Sodium Bicarbonate 325 mg 03/01/20 08:46 Sodium Bicarbonate FEEDTUBE PRN PRN For Clogged Feeding Tube Sodium Chloride 10 ml 02/24/20 10:00 03/05/20 12:07 Sodium Chloride Flush Syringe 10 Ml IV 10 ml BID INDU Administration Sodium Chloride 10 ml 02/24/20 06:45 Sodium Chloride Flush Syringe 10 Ml IV PRN PRN LINE FLUSH Tamsulosin HCl 0.4 mg 03/01/20 17:00 03/05/20 10:47 Flomax PO 0.4 mg QDAY INDU Administration
--- NOTE | 2020-03-05 12:45 | Progress Note ---
Assessment and Plan (1) Acute pancreatitis - judith TF, and lipase yesterday was normal. CT done this AM, and report shows worsening inflammation, as expected with evolution. Developing complications related to local and systemic effects. On dialysis. Etiology of pancreatitis unclear, and has now developed multi-organ failure. - given calcification in HOP, MRCP at some point in future is reasonable, but no need urgently - continue supportive care - nutrition via Dobhoff (2) Altered mental status - now intubated and sedated. 3. Anemia - on PPI. - will defer transfusion, etc to Hospitalist Current Visit: Yes Status: Acute Plan to address problem: Subjective Date of service: 03/05/20 Principal diagnosis: HTNsive urgency; Morbid obesity; Ac. pancreatitis; Abdominal pain Interval history: Pt stable overnight. More awake, but not purposeful. Reacts to voice. Objective - Constitutional Vitals: Vital Signs - 12hr 03/05/20 03/05/20 03/05/20 01:00 01:30 02:00 Temperature Pulse Rate 89 92 H 92 H Pulse Rate [ 93 H Anterior Bilateral Throughout] Pulse Rate [ From Monitor] Respiratory 20 20 20 Rate Respiratory Rate [Abdomen] Respiratory 20 Rate [Anterior Bilateral Throughout] Blood Pressure 125/78 137/84 138/84 O2 Sat by Pulse 99 99 99 Oximetry 03/05/20 03/05/20 03/05/20 02:30 03:01 03:30 Temperature Pulse Rate 113 H 128 H 119 H Pulse Rate [ Anterior Bilateral Throughout] Pulse Rate [ From Monitor] Respiratory 22 31 H 29 H Rate Respiratory Rate [Abdomen] Respiratory Rate [Anterior Bilateral Throughout] Blood Pressure 179/104 225/139 174/119 O2 Sat by Pulse 97 95 97 Oximetry 03/05/20 03/05/20 03/05/20 04:00 04:10 04:31 Temperature 98.8 F Pulse Rate 121 H 121 H 111 H Pulse Rate [ Anterior Bilateral Throughout] Pulse Rate [ 121 H From Monitor] Respiratory 21 24 Rate Respiratory Rate [Abdomen] Respiratory Rate [Anterior Bilateral Throughout] Blood Pressure 182/95 182/95 161/92 O2 Sat by Pulse 97 95 Oximetry 03/05/20 03/05/20 03/05/20 04:54 05:00 05:30 Temperature Pulse Rate 100 H 103 H 98 H Pulse Rate [ Anterior Bilateral Throughout] Pulse Rate [ From Monitor] Respiratory 20 20 Rate Respiratory Rate [Abdomen] Respiratory Rate [Anterior Bilateral Throughout] Blood Pressure 156/97 153/97 134/76 O2 Sat by Pulse 97 98 98 Oximetry 03/05/20 03/05/20 03/05/20 05:59 06:00 06:30 Temperature Pulse Rate 98 H 98 H 96 H Pulse Rate [ Anterior Bilateral Throughout] Pulse Rate [ From Monitor] Respiratory 20 20 Rate Respiratory Rate [Abdomen] Respiratory Rate [Anterior Bilateral Throughout] Blood Pressure 130/83 136/81 143/81 O2 Sat by Pulse 99 99 Oximetry 03/05/20 03/05/20 03/05/20 07:00 07:31 08:00 Temperature 98.6 F Pulse Rate 94 H 129 H 119 H Pulse Rate [ Anterior Bilateral Throughout] Pulse Rate [ 119 H From Monitor] Respiratory 20 33 H 24 Rate Respiratory Rate [Abdomen] Respiratory Rate [Anterior Bilateral Throughout] Blood Pressure 128/77 156/92 O2 Sat by Pulse 99 97 98 Oximetry 03/05/20 03/05/20 03/05/20 08:30 08:43 08:52 Temperature Pulse Rate 119 H 117 H Pulse Rate [ 115 H Anterior Bilateral Throughout] Pulse Rate [ From Monitor] Respiratory 23 Rate Respiratory Rate [Abdomen] Respiratory 23 Rate [Anterior Bilateral Throughout] Blood Pressure 161/91 174/111 O2 Sat by Pulse 99 99 Oximetry 03/05/20 03/05/20 03/05/20 09:00 09:30 10:00 Temperature Pulse Rate 112 H 108 H Pulse Rate [ Anterior Bilateral Throughout] Pulse Rate [ From Monitor] Respiratory 21 22 Rate Respiratory 26 H Rate [Abdomen] Respiratory Rate [Anterior Bilateral Throughout] Blood Pressure 143/83 150/82 O2 Sat by Pulse 98 99 Oximetry 03/05/20 03/05/20 03/05/20 10:25 10:31 10:46 Temperature Pulse Rate 121 H 123 H 107 H Pulse Rate [ Anterior Bilateral Throughout] Pulse Rate [ From Monitor] Respiratory 26 H 21 Rate Respiratory Rate [Abdomen] Respiratory Rate [Anterior Bilateral Throughout] Blood Pressure 135/75 O2 Sat by Pulse 98 98 Oximetry 03/05/20 03/05/20 03/05/20 10:47 11:00 11:30 Temperature Pulse Rate 107 H 104 H 86 Pulse Rate [ Anterior Bilateral Throughout] Pulse Rate [ From Monitor] Respiratory 20 20 Rate Respiratory Rate [Abdomen] Respiratory Rate [Anterior Bilateral Throughout] Blood Pressure 135/75 125/76 124/71 O2 Sat by Pulse 98 99 Oximetry 03/05/20 03/05/20 12:00 12:34 Temperature 98.4 F Pulse Rate 84 86 Pulse Rate [ Anterior Bilateral Throughout] Pulse Rate [ 84 From Monitor] Respiratory 20 Rate Respiratory Rate [Abdomen] Respiratory Rate [Anterior Bilateral Throughout] Blood Pressure 116/67 118/76 O2 Sat by Pulse 98 98 Oximetry General appearance: Present: no acute distress, other (Intubated) - EENT Eyes: PERRL ENT: hearing intact - Gastrointestinal General gastrointestinal: Present: tender (Mild, diffuse), distended (Moderately), hypoactive bowel sounds - Labs CBC & Chem 7: 03/04/20 04:05 03/05/20 06:00 Labs: Abnormal lab results 03/04/20 03/04/20 03/04/20 Range/Units 12:21 18:02 19:00 ABG pO2 (80.0-90.0) mm Hg ABG HCO3 (20.0-26.0) mmol/L ABG O2 Saturation (95.0-99.0) % ABG Hemoglobin (12.0-16.0) gm/dl Oxyhemoglobin (95.0-99.0) % BUN (7-17) mg/dL Creatinine (0.6-1.2) mg/dL Glucose (65-100) mg/dL POC Glucose 155 H 124 H (70-105) Direct Bilirubin (0-0.2) mg/dL Alkaline Phosphatase (35-129) units/L Albumin (3.9-5) g/dL Lipase 72 H (13-60) units/L 03/04/20 03/05/20 03/05/20 Range/Units 23:24 05:04 05:29 ABG pO2 62.5 L (80.0-90.0) mm Hg ABG HCO3 26.4 H (20.0-26.0) mmol/L ABG O2 Saturation 92.1 L (95.0-99.0) % ABG Hemoglobin 9.3 L (12.0-16.0) gm/dl Oxyhemoglobin 89.9 L (95.0-99.0) % BUN (7-17) mg/dL Creatinine (0.6-1.2) mg/dL Glucose (65-100) mg/dL POC Glucose 115 H 134 H (70-105) Direct Bilirubin (0-0.2) mg/dL Alkaline Phosphatase (35-129) units/L Albumin (3.9-5) g/dL Lipase (13-60) units/L 03/05/20 03/05/20 Range/Units 06:00 12:18 ABG pO2 (80.0-90.0) mm Hg ABG HCO3 (20.0-26.0) mmol/L ABG O2 Saturation (95.0-99.0) % ABG Hemoglobin (12.0-16.0) gm/dl Oxyhemoglobin (95.0-99.0) % BUN 54 H (7-17) mg/dL Creatinine 5.4 H (0.6-1.2) mg/dL Glucose 125 H (65-100) mg/dL POC Glucose 118 H (70-105) Direct Bilirubin 0.6 H (0-0.2) mg/dL Alkaline Phosphatase 133 H (35-129) units/L Albumin 2.5 L (3.9-5) g/dL Lipase (13-60) units/L Medications & Allergies - Medications Allergies/Adverse Reactions: Allergies No Known Allergies Allergy (Unverified 09/05/19 10:15) Home Medications: Home Medications Medication Instructions Recorded Confirmed Last Taken Type Amlodipine Besylate [Norvasc] 10 mg PO DAILY 09/05/19 02/24/20 09/04/19 History Furosemide [Lasix] 20 mg PO QDAY #30 tablet 09/05/19 02/24/20 Unknown Rx Lisinopril [Zestril] 5 mg PO DAILY #30 tablet 09/05/19 02/24/20 Unknown Rx Metoprolol [Lopressor TAB] 25 mg PO BID #60 tablet 09/05/19 02/24/20 Unknown Rx Active Medications: Generic Name Dose Route Start Last Admin Trade Name Freq PRN Reason Stop Dose Admin Acetaminophen 650 mg 02/26/20 16:23 03/04/20 21:50 Tylenol PO 650 mg Q4H PRN Administration Pain, Mild (1-3)/ Temp >100. Albuterol 2.5 mg 02/27/20 17:55 Proventil IH Q4HRT PRN Shortness Of Breath Albuterol/Ipratropium 1 ampul 02/28/20 12:17 03/05/20 08:52 Duoneb *Not For Prn Use* IH 1 ampul Q6HRT INDU Administration Amlodipine Besylate 10 mg 02/28/20 10:00 03/05/20 10:46 Amlodipine PO 10 mg QDAY INDU Administration Lipase/Protease/Amylase 1 each 03/01/20 08:46 Pancreaze 10,500 Unit FEEDTUBE PRN PRN For Clogged Feeding Tube Dextrose 50 ml 02/29/20 08:00 03/01/20 00:20 D50w (25gm) Syringe IV 10 ml Q30MIN PRN Administration HYPOGLYCEMIA Protocol Fentanyl 50 mcg 02/29/20 15:35 03/04/20 20:35 Sublimaze IV 50 mcg Q10MIN PRN Administration ANALGESIA Furosemide 100 mg 03/05/20 12:40 Lasix IV 03/05/20 12:41 ONCE ONE Haloperidol Lactate 5 mg 02/28/20 11:30 03/05/20 10:48 Haldol IV 5 mg Q1H PRN Administration Unrespon. to mult. doses BZD's Heparin Sodium (Porcine) 5,000 unit 02/24/20 14:00 03/05/20 05:59 Heparin SUB-Q 5,000 unit Q8HR INDU Administration Hydralazine HCl 25 mg 03/04/20 14:00 03/05/20 05:59 Apresoline PO 25 mg Q8HR INDU Administration Hydrophilic Ointment 1 applic 02/29/20 15:35 Vaseline Lip Therapy TP Q2HR PRN Dry Lips Nicardipine HCl 50 mg/ Sodium 250 mls @ 25 mls/hr 02/24/20 07:00 02/28/20 12:51 Chloride IV 0 mg/hr TITR INDU 0 mls/hr Titration Protocol 5 MG/HR Fentanyl Citrate 2,000 mcg in 100 mls @ 4.55 mls/hr 02/29/20 16:00 03/05/20 12:05 Fentanyl Drip Premix IV 3 mcg/kg/hr TITR INDU 13.65 mls/hr Titration Protocol 1 MCG/KG/HR MEROPENEM/NS 1 GRAM/100 ML 1 gram in 100 mls @ 100 mls/hr 03/03/20 18:00 03/04/20 18:26 Merrem/Ns 1 Gram/100 Ml IV 100 mls/hr QPM INDU Administration Protocol Sodium Chloride 100 mls @ 999 mls/hr 03/04/20 08:56 Nacl 0.9% IV NIKOLAY PRN Hypotension Sodium Chloride 100 mls @ 999 mls/hr 03/05/20 12:08 Nacl 0.9% IV NIKOLAY PRN Hypotension Labetalol HCl 10 mg 02/28/20 09:00 03/05/20 04:10 Labetalol IV 10 mg Q4H PRN Administration Hypertension Lorazepam 1 mg 02/28/20 04:20 03/05/20 10:48 Ativan IV 1 mg Q4H PRN Administration Agitation Lorazepam 2 mg 02/28/20 11:30 02/29/20 11:43 Ativan IV 2 mg Q1H PRN Administration [facility]K-Ar 8-15 Lorazepam 4 mg 02/28/20 11:30 02/29/20 16:19 Ativan IV 4 mg Q1H PRN Administration [facility] 16-25 Metoprolol Tartrate 25 mg 02/28/20 10:00 03/05/20 10:47 Metoprolol PO 25 mg BID INDU Administration Midazolam HCl 2 mg 02/29/20 15:35 02/29/20 17:00 Versed IV 2 mg Q10MIN PRN Administration Sedation Multi-Ingred Cream/Lotion/Oil/Oint 1 applic 02/29/20 15:35 Artificial Tears Ophth Oint OU Q4HR PRN Dry Eye(s) Ondansetron HCl 4 mg 02/24/20 06:45 02/25/20 23:33 Zofran IV 4 mg Q8H PRN Administration Nausea And Vomiting Pantoprazole Sodium 40 mg 02/24/20 13:00 03/05/20 10:46 Protonix IV 40 mg QDAY INDU Administration Quetiapine Fumarate 100 mg 03/05/20 12:00 Seroquel PO BID INDU Scopolamine 1 each 03/04/20 16:00 03/04/20 15:58 Transderm-Scop TD 1 each Q3D INDU Administration Simple Syrup 15 ml 03/01/20 08:46 Simple Syrup FEEDTUBE PRN PRN Hypoglycemia Simple Syrup 30 ml 03/01/20 08:46 Simple Syrup FEEDTUBE PRN PRN Hypoglycemia Sodium Bicarbonate 325 mg 03/01/20 08:46 Sodium Bicarbonate FEEDTUBE PRN PRN For Clogged Feeding Tube Sodium Chloride 10 ml 02/24/20 10:00 03/05/20 12:07 Sodium Chloride Flush Syringe 10 Ml IV 10 ml BID INDU Administration Sodium Chloride 10 ml 02/24/20 06:45 Sodium Chloride Flush Syringe 10 Ml IV PRN PRN LINE FLUSH Tamsulosin HCl 0.4 mg 03/01/20 17:00 03/05/20 10:47 Flomax PO 0.4 mg QDAY INDU Administration
[2020-03-05] MEDS: QUEtiapine 100 MG TAB PO SCH ×2 (12:48→21:34)
[2020-03-05] MEDS ORDERED: FUROSEMIDE 100 MG/10 ML INJ IV ONE (13:00)
[2020-03-05] MEDS: MEROPENEM/NS 1 GRAM/100 ML 1 GRAM/100 ML BAG IV SCH (18:40)
--- NOTE | 2020-03-05 19:17 | Progress Note ---
Assessment and Plan Assessment and plan: --JUANIS/worsening renal function[cr 5.6-6.2] Current Visit: Yes Status: Acute Plan to address problem: Worsening renal function, Initiated hemodialysis 03/03/2020 Hemodialysis per nephrology --Ac.hypoxic resp failure; intubated 02/29/20 Current Visit: Yes Status: Acute Plan to address problem: Mechanical ventilation , supportive care secondary to pancreatitis, lung infiltrate, possible ARDS Fluid overload.acute kidney injury Wean as tolerated and extubate Pulmonary critical following Chest x-ray today; worsening infiltrates --Severe sepsis secondary to pneumonia ; Current Visit: Yes Status: Acute Plan to address problem: Worsening bibasilar opacities on chest x-ray leukocytosis, tachycardia, tachypnea, fever, infiltrate on chest x-ray. Continue Zosyn, follow cultures, ID following -- Acute pancreatitis/lipase trending down Current Visit: Yes Status: Acute Plan to address problem: Mild improvement of symptoms Lipase trending down IV fluid and IV pain medication. Management per GI Hepatitis panel negative Repeat CT abdomen and pelvis 03/01/2020 Interval worsening of acute pancreatitis with increased jessica-pancreatic fat st randing and disorganized fluid Increased intraperitoneal edema simple free fluid collection in the pelvis Local inflammatory changes involving stomach small bowel and bilateral kidneys Interval development of bilateral pleural effusions and associated compressive atelectasis Interval development of diffuse body wall anasarca --Anemia; Current Visit: Yes Status: Acute Plan to address problem: monitor H&H and transfuse as needed. --Severe metabolic encephalopathy/AMS Current Visit: Yes Status: Acute Plan to address problem: Probably secondary alcohol withdrawal symptoms Treat the underlying cause,WA protocol, supportive care --Possible alcohol withdrawal symptoms; Current Visit: Yes Status: Acute Plan to address problem: Discussed with GI Dr. De La Rosa , agree with WA closely monitor , Ativan as needed Continue CIWA protocol --Worsening leukocytosis Current Visit: Yes Status: Acute Plan to address problem: Secondary to sepsis due to bibasilar pneumonia, acute pancreatitis, ID and GI following -- Hypertensive emergency POA Current Visit: Yes Status: Acute Plan to address problem: s/p Cardene drip, closely monitor Blood pressures uncontrolled Add hydralazine 25 mg 3 times a day Patient is already on amlodipine and metoprolol IV labetalol, PRN --Severe metabolic acidosis; Current Visit: Yes Status: Acute Plan to address problem: Management per nephrology --Medical noncompliance Current Visit: Yes Status: Acute Plan to address problem: Patient was counseled upon admission -- DVT prophylaxis Current Visit: Yes Status: Acute Plan to address problem: Patient placed on subcutaneous heparin. --Obesity; BMI 37.9 Current Visit: Yes Status: Acute Plan to address problem: patient needs weight reduction when medically stable. -- Full code status Current Visit: Yes Status: Acute Follow GI and pulmonary evaluation and recommendations We will closely monitor the patient and adjust the management as needed Closely monitor the patient and adjust management as needed. Patient is critically ill with multiple medical problems Prognosis poor, family aware The high probability of a clinically significant, sudden or life threatening deterioration of the [GI, CVS, renal, respiratory and metabolic] system(s) required my full and direct attention, intervention and personal management. The aggregate critical care time was [35] minutes. This time is in addition to time spent performing reported procedures but includes the following: [x] Data Review and interpretation [x] Patient assessment and monitoring of vital signs [x] Documentation [x] Medication orders and management 03/03; patient had worsening renal function, considering Vas-Cath placement and initiating hemodialysis Patient is critically ill with multiple organ involvement, family aware 03/04; patient remains critically ill on vent, initiated dialysis, poor prognosis multiorgan involvement Freight Checker recommendations noted and appreciated History Interval history: I have seen and examined the patient at the bedside in ICU this morning Patient's chart and medications reviewed Patient remains intubated on ventilatory support Well-controlled blood pressures Patient is receiving hemodialysis per schedule Vital signs noted Hospitalist Physical - Constitutional Vitals: Temp Pulse Resp BP Pulse Ox 99.6 F 110 H 21 132/77 98 03/05/20 16:00 03/05/20 18:00 03/05/20 18:00 03/05/20 18:00 03/05/20 18:00 General appearance: Present: no acute distress, well-nourished, obese, other (Intubated) - EENT Eyes: Present: PERRL, EOM intact - Neck Neck: Present: supple, normal ROM - Respiratory Respiratory effort: normal Respiratory: bilateral: diminished, rhonchi, negative: rales, wheezing - Cardiovascular Rhythm: regular Heart Sounds: Present: S1 & S2 - Extremities Extremities: no ischemia, No edema - Abdominal General gastrointestinal: soft, non-tender, non-distended, normal bowel sounds - Integumentary Integumentary: Present: clear, warm - Psychiatric Psychiatric: other (Intubated on vent) - Neurologic Neurologic: other (Intubated on vent) Results - Labs CBC & Chem 7: 03/04/20 04:05 03/05/20 06:00 Labs: Laboratory Last Values WBC 30.1 K/mm3 (4.5-11.0) H 03/04/20 04:05 RBC 3.44 M/mm3 (3.65-5.03) L 03/04/20 04:05 Hgb 8.2 gm/dl (10.1-14.3) L 03/04/20 04:05 Hct 25.2 % (30.3-42.9) L 03/04/20 04:05 MCV 73 fl (79-97) L 03/04/20 04:05 MCH 24 pg (28-32) L 03/04/20 04:05 MCHC 32 % (30-34) 03/04/20 04:05 RDW 20.7 % (13.2-15.2) H 03/04/20 04:05 Plt Count 554 K/mm3 (140-440) H 03/04/20 04:05 Lymph % (Auto) 3.3 % (13.4-35.0) L 03/04/20 04:05 [place] % (Auto) 6.7 % (0.0-7.3) 03/04/20 04:05 Eos % (Auto) 1.1 % (0.0-4.3) 03/04/20 04:05 Baso % (Auto) 0.3 % (0.0-1.8) 03/04/20 04:05 Lymph # (Auto) 1.0 K/mm3 (1.2-5.4) L 03/04/20 04:05 [place] # (Auto) 2.0 K/mm3 (0.0-0.8) H 03/04/20 04:05 Eos # (Auto) 0.3 K/mm3 (0.0-0.4) 03/04/20 04:05 Baso # (Auto) 0.1 K/mm3 (0.0-0.1) 03/04/20 04:05 Add Manual Diff Complete 03/03/20 04:36 Total Counted 100 03/03/20 04:36 Seg Neutrophils % 88.6 % (40.0-70.0) H 03/04/20 04:05 Seg Neuts % (Manual) 82.0 % (40.0-70.0) H 03/03/20 04:36 Band Neutrophils % 6.0 % 03/03/20 04:36 Lymphocytes % (Manual) 4.0 % (13.4-35.0) L 03/03/20 04:36 Reactive Lymphs % (Man) 0 % 03/03/20 04:36 Monocytes % (Manual) 7.0 % (0.0-7.3) 03/03/20 04:36 Eosinophils % (Manual) 1.0 % (0.0-4.3) 03/03/20 04:36 Basophils % (Manual) 0 % (0.0-1.8) 03/03/20 04:36 Metamyelocytes % 0 % 03/03/20 04:36 Myelocytes % 0 % 03/03/20 04:36 Promyelocytes % 0 % 03/03/20 04:36 Blast Cells % 0 % 03/03/20 04:36 Nucleated RBC % Not Reportable 03/03/20 04:36 Seg Neutrophils # 26.6 K/mm3 (1.8-7.7) H 03/04/20 04:05 Seg Neutrophils # Man 23.0 K/mm3 (1.8-7.7) H 03/03/20 04:36 Band Neutrophils # 1.7 K/mm3 03/03/20 04:36 Lymphocytes # (Manual) 1.1 K/mm3 (1.2-5.4) L 03/03/20 04:36 Abs React Lymphs (Man) 0.0 K/mm3 03/03/20 04:36 Monocytes # (Manual) 2.0 K/mm3 (0.0-0.8) H 03/03/20 04:36 Eosinophils # (Manual) 0.3 K/mm3 (0.0-0.4) 03/03/20 04:36 Basophils # (Manual) 0.0 K/mm3 (0.0-0.1) 03/03/20 04:36 Metamyelocytes # 0.0 K/mm3 03/03/20 04:36 Myelocytes # 0.0 K/mm3 03/03/20 04:36 Promyelocytes # 0.0 K/mm3 03/03/20 04:36 Blast Cells # 0.0 K/mm3 03/03/20 04:36 WBC Morphology Not Reportable 03/03/20 04:36 Hypersegmented Neuts Not Reportable 03/03/20 04:36 Hyposegmented Neuts Not Reportable 03/03/20 04:36 Hypogranular Neuts Not Reportable 03/03/20 04:36 Smudge Cells Not Reportable 03/03/20 04:36 Toxic Granulation Not Reportable 03/03/20 04:36 Toxic Vacuolation Not Reportable 03/03/20 04:36 Dohle Bodies Not Reportable 03/03/20 04:36 Pelger-Huet Anomaly Not Reportable 03/03/20 04:36 Maia Rods Not Reportable 03/03/20 04:36 Platelet Estimate Consistent w auto 03/03/20 04:36 Clumped Platelets Not Reportable 03/03/20 04:36 Plt Clumps, EDTA Not Reportable 03/03/20 04:36 Large Platelets Not Reportable 03/03/20 04:36 Giant Platelets Not Reportable 03/03/20 04:36 Platelet Satelliting Not Reportable 03/03/20 04:36 Plt Morphology Comment Not Reportable 03/03/20 04:36 RBC Morphology Not Reportable 03/03/20 04:36 Dimorphic RBCs Not Reportable 03/03/20 04:36 Polychromasia Few 03/03/20 04:36 Hypochromasia 1+ 03/03/20 04:36 Poikilocytosis Not Reportable 03/03/20 04:36 Anisocytosis 1+ 03/03/20 04:36 Microcytosis Not Reportable 03/03/20 04:36 Macrocytosis Not Reportable 03/03/20 04:36 Spherocytes Not Reportable 03/03/20 04:36 Pappenheimer Bodies Not Reportable 03/03/20 04:36 Sickle Cells Not Reportable 03/03/20 04:36 Target Cells Few 03/03/20 04:36 Tear Drop Cells Not Reportable 03/03/20 04:36 Ovalocytes Few 03/03/20 04:36 Helmet Cells Not Reportable 03/03/20 04:36 [place] Bodies Not Reportable 03/03/20 04:36 [place] Rings Not Reportable 03/03/20 04:36 [place] Cells Not Reportable 03/03/20 04:36 Bite Cells Not Reportable 03/03/20 04:36 Crenated Cell Not Reportable 03/03/20 04:36 Elliptocytes Not Reportable 03/03/20 04:36 Acanthocytes (Spur) Not Reportable 03/03/20 04:36 Rouleaux Not Reportable 03/03/20 04:36 Hemoglobin C Crystals Not Reportable 03/03/20 04:36 Schistocytes Not Reportable 03/03/20 04:36 Malaria parasites Not Reportable 03/03/20 04:36 Edgardo Bodies Not Reportable 03/03/20 04:36 Hem Pathologist Commnt No 03/03/20 04:36 PT 13.7 Sec. (12.2-14.9) 02/25/20 03:49 INR 1.03 (0.87-1.13) 02/25/20 03:49 ABG pH 7.405 pH Units (7.350-7.450) 03/05/20 05:04 POC ABG pCO2 31.8 mmHg (32.0-48.0) L 03/03/20 04:00 ABG pCO2 43.1 mm Hg 03/05/20 05:04 POC ABG pO2 83.1 mmHg (83-108) 03/03/20 04:00 ABG pO2 62.5 mm Hg (80.0-90.0) L 03/05/20 05:04 POC ABG HCO3 17.7 03/03/20 04:00 ABG HCO3 26.4 mmol/L (20.0-26.0) H 03/05/20 05:04 ABG O2 Saturation 92.1 % (95.0-99.0) L 03/05/20 05:04 ABG O2 Content 11.9 (0.0-44) 03/05/20 05:04 POC ABG Base Excess -6.9 03/03/20 04:00 ABG Base Excess 1.5 mmol/L (-2.0-3.0) 03/05/20 05:04 ABG Hemoglobin 9.3 gm/dl (12.0-16.0) L 03/05/20 05:04 ABG Oxyhemoglobin 94.7 (94-98) 03/03/20 04:00 ABG Carboxyhemoglobin 1.9 % (0.0-5.0) 03/05/20 05:04 ABG Methemoglobin 0.5 % (0.0-1.5) 03/05/20 05:04 Oxyhemoglobin 89.9 % (95.0-99.0) L 03/05/20 05:04 Carboxyhemoglobin 0.8 (0.5-1.5) 03/03/20 04:00 FiO2 30 % 03/05/20 05:04 Sodium 144 mmol/L (137-145) 03/05/20 06:00 Potassium 3.6 mmol/L (3.6-5.0) 03/05/20 06:00 Chloride 99.5 mmol/L (98-107) 03/05/20 06:00 Carbon Dioxide 29 mmol/L (22-30) 03/05/20 06:00 Anion Gap 19 mmol/L 03/05/20 06:00 BUN 54 mg/dL (7-17) H 03/05/20 06:00 Creatinine 5.4 mg/dL (0.6-1.2) H 03/05/20 06:00 Estimated GFR 11 ml/min 03/05/20 06:00 BUN/Creatinine Ratio 10 % 03/05/20 06:00 Glucose 125 mg/dL (65-100) H 03/05/20 06:00 POC Glucose 108 (70-105) H 03/05/20 18:01 Lactic Acid 0.90 mmol/L (0.7-2.0) 02/27/20 19:33 Calcium 9.1 mg/dL (8.4-10.2) 03/05/20 06:00 Phosphorus 6.10 mg/dL (2.5-4.5) H 03/01/20 04:37 Magnesium 2.20 mg/dL (1.7-2.3) 03/04/20 04:05 Total Bilirubin 0.90 mg/dL (0.1-1.2) 03/05/20 06:00 Direct Bilirubin 0.6 mg/dL (0-0.2) H 03/05/20 06:00 Indirect Bilirubin 0.3 mg/dL 03/05/20 06:00 AST 39 units/L (5-40) 03/05/20 06:00 ALT 18 units/L (7-56) 03/05/20 06:00 Alkaline Phosphatase 133 units/L (35-129) H 03/05/20 06:00 C-Reactive Protein 36.50 mg/dL (0.00-1.30) H 03/01/20 11:06 Serum Total Protein 6.3 g/dL (6.1-8.1) 02/26/20 04:39 Total Protein 7.2 g/dL (6.3-8.2) 03/05/20 06:00 Albumin 2.5 g/dL (3.9-5) L 03/05/20 06:00 Albumin/Globulin Ratio 0.5 % 03/05/20 06:00 Jmets-1-Omzisdzlx 0.7 g/dL (0.2-0.3) H 02/26/20 04:39 Kfqcu-8-Rpeiitncd 0.8 g/dL (0.5-0.9) 02/26/20 04:39 Beta Globulins 0.4 g/dL (0.2-0.5) 02/26/20 04:39 Gamma Globulins 1.2 g/dL (0.8-1.7) 02/26/20 04:39 Abnorm Protein Band 1 see below 02/26/20 04:39 PEP Interpretation see below H 02/26/20 04:39 Triglycerides 118 mg/dL (2-149) 02/26/20 04:39 Lipase 72 units/L (13-60) H 03/04/20 19:00 HCG, Qual Negative (Negative) 02/24/20 02:53 PTH Intact 911.3 pg/mL (15-65) H 02/26/20 08:15 Urine Color Yellow (Yellow) 02/24/20 Unknown Urine Turbidity Clear (Clear) 02/24/20 Unknown Urine pH 6.0 (5.0-7.0) 02/24/20 Unknown Ur Specific [place] 1.020 (1.003-1.030) 02/24/20 Unknown Urine Protein >500 mg/dL (Negative) 02/24/20 Unknown Urine Glucose (UA) 50 mg/dL (Negative) 02/24/20 Unknown Urine Ketones Neg mg/dL (Negative) 02/24/20 Unknown Urine Blood Lg (Negative) 02/24/20 Unknown Urine Nitrite Neg (Negative) 02/24/20 Unknown Urine Bilirubin Neg (Negative) 02/24/20 Unknown Urine Urobilinogen < 2.0 mg/dL (<2.0) 02/24/20 Unknown Ur Leukocyte Esterase Neg (Negative) 02/24/20 Unknown Urine WBC (Auto) 11.0 /HPF (0.0-6.0) H 02/24/20 Unknown Urine RBC (Auto) 149.0 /HPF (0.0-6.0) 02/24/20 Unknown U Epithel Cells (Auto) 5.0 /HPF (0-13.0) 02/24/20 Unknown Urine Bacteria (Auto) 1+ /HPF (Negative) 02/24/20 Unknown Urine Mucus Few /HPF 02/24/20 Unknown Urine Creatinine 161.0 mg/dL (0.1-20.0) H 02/25/20 22:55 Protein/Creatinin Ratio 0.93 02/25/20 22:55 Urine Total Protein 150 mg/dL (5-11.8) H 02/25/20 22:55 ZINA Screen Positive (Negative) H 02/26/20 04:39 Proteinase 3 (PR3) Ab <1.0 AI (<1.0) 02/26/20 04:39 Myeloperoxidase Ab <1.0 AI (<1.0) 02/26/20 04:39 Complement C3 153 mg/dL (83-193) 02/26/20 04:39 Complement C4 35 mg/dL (15-57) 02/26/20 04:39 Hepatitis A IgM Ab Non-reactive (NonReactive) 03/03/20 12:34 Hep Bs Antigen Non-reactive (Negative) 03/03/20 12:34 Hep B Core IgM Ab Non-reactive (NonReactive) 03/03/20 12:34 Hepatitis C Antibody Non-reactive (NonReactive) 03/03/20 12:34 Blood Type AB POSITIVE 03/01/20 18:30 Antibody Screen Negative 03/01/20 18:30 Crossmatch See Detail 03/01/20 18:30 - Diagnostic Impressions Diagnostic Impressions: Echocardiogram 02/26/20 09:11 Transthoracic Echocardiogram Indication: Cardiomegaly BP: 149/92 HR: 122 Conclusions *Global left ventricular systolic function is normal. *The estimated ejection fraction is 60-65%. *Moderate to severe concentric left ventricular hypertrophy is observed. *The left atrium is mild to moderately dilated. *The aortic valve leaflets are moderately thickened. *A mean gradient of 22.39 mmHg across the outflow tract is likely not due to but hyperdynamic flow and LVH. *There is trace tricuspid regurgitation. Findings Left Ventricle: The left ventricular chamber size is normal. Moderate to severe concentric left ventricular hypertrophy is observed. Global left ventricular systolic function is normal. The estimated ejection fraction is 60-65%. Left Atrium: The left atrium is mild to moderately dilated. Right Ventricle: The right ventricular cavity size is normal. The right ventricular global systolic function is normal. Right Atrium: The right atrial cavity size is normal. Aortic Valve: The aortic valve leaflets are moderately thickened. There is no evidence of aortic regurgitation. The mean gradient of the aortic valve is 22.39 mmHg. Mitral Valve: The mitral valve leaflets are mildly thickened. There is trace of mitral regurgitation. There is no evidence of mitral stenosis. Tricuspid Valve: There is trace tricuspid regurgitation. No pulmonary hypertension is noted. Pulmonic Valve: There is trace pulmonic regurgitation. Pericardium: There is no pericardial effusion. Aorta: There is no dilatation of the ascending aorta. There is no dilatation of the aortic root. Venous: The inferior vena cava appears normal in size. Measurements Chambers 2D Name Value Normal Range IVSd (2D) 1.8 cm (0.6 - 1.1) LVPWd (2D) 1.74 cm (0.6 - 1.1) LVIDd (2D) 4.57 cm (3.7 - 5.6) LVIDs (2D) 2.73 cm (2 - 3.8) LV FS (2D) 40.27 % - EF Teichholz (2D) 71.04 % - Ao root diameter (2D) 2.79 cm (2 - 3.7) Volumes/Mass Name Value Normal Range LA ESV SP 4CH (A/L) 54.18 ml - LA ESV SP 2CH (A/L) 61.84 ml - LA ESV BP (A/L) 58.1 ml - LA ESV BP (A/L) index 30.74 ml/m2 - LA ESV SP 4CH (MOD) 52.89 ml - LA ESV SP 2CH (MOD) 60.65 ml - LA ESV BP (MOD) 56.77 ml - LA ESV BP (MOD) index 30.04 ml/m2 - LV EDV SP 4CH (MOD) 164.2 ml - LV ESV SP 4CH (MOD) 58.04 ml - EF SP 4CH (MOD) 64.65 % - Diastolic/Systolic Function Name Value Normal Range MV E-wave Vmax 1.38 m/sec - MV deceleration time 92.78 msec - MV A-wave Vmax 1.44 m/sec - MV E:A ratio 0.95 ratio - Aortic Valve Name Value Normal Range AV Vmax 3.08 m/sec - AV VTI 36.74 cm - AV peak gradient 37.98 mmHg - AV mean gradient 22.39 mmHg - LVOT diameter 2.01 cm - LVOT Vmax 2.45 m/sec - LVOT VTI 29.85 cm - LVOT peak gradient 24.04 mmHg - LVOT mean gradient 11.11 mmHg - SV LVOT 94.73 ml - JADA (continuity Vmax) 2.52 cm2 - JADA (continuity VTI) 2.58 cm2 - Ascending Ao 2.64 cm - Mitral Valve Name Value Normal Range MV PHT 37.88 msec - MVA (PHT) 5.81 cm2 - Tricuspid Valve Name Value Normal Range IVC diameter 1.93 cm (1.2 - 2.3) Pulmonic Valve/Qp:Qs Name Value Normal Range PV Vmax 2.83 m/sec - PV VTI 45.88 cm - PV peak gradient 32.06 mmHg - PV mean gradient 16.11 mmHg - SC end-diastolic Vmax 0.81 m/sec - RVOT Vmax 1.82 m/sec - RVOT VTI 25.12 cm - RVOT peak gradient 13.3 mmHg - Franks/IV: Voiding Method External Female Catheter IV Catheter Type [Right VAS Cath Internal Jugular] IV Catheter Type [Left Upper INT / Saline Lock arm] IV Catheter Type [Right Upper INT / Saline Lock arm] IV Catheter Type [Right INT / Saline Lock Forearm] IV Catheter Type [Right Wrist] Peripheral IV IV Catheter Type [Right Peripheral IV Antecubital] Active Medications - Current Medications Current Medications: Generic Name Dose Route Start Last Admin Trade Name Freq PRN Reason Stop Dose Admin Acetaminophen 650 mg 02/26/20 16:23 03/04/20 21:50 Tylenol PO 650 mg Q4H PRN Administration Pain, Mild (1-3)/ Temp >100. Albuterol 2.5 mg 02/27/20 17:55 Proventil IH Q4HRT PRN Shortness Of Breath Albuterol/Ipratropium 1 ampul 02/28/20 12:17 03/05/20 13:52 Duoneb *Not For Prn Use* IH 1 ampul Q6HRT INDU Administration Amlodipine Besylate 10 mg 02/28/20 10:00 03/05/20 10:46 Amlodipine PO 10 mg QDAY INDU Administration Lipase/Protease/Amylase 1 each 03/01/20 08:[address] 10,500 Unit FEEDTUBE PRN PRN For Clogged Feeding Tube Dextrose 50 ml 02/29/20 08:00 03/01/20 00:20 D50w (25gm) Syringe IV 10 ml Q30MIN PRN Administration HYPOGLYCEMIA Protocol Fentanyl 50 mcg 02/29/20 15:35 03/04/20 20:35 Sublimaze IV 50 mcg Q10MIN PRN Administration ANALGESIA Haloperidol Lactate 5 mg 02/28/20 11:30 03/05/20 10:48 Haldol IV 5 mg Q1H PRN Administration Unrespon. to mult. doses BZD's Heparin Sodium (Porcine) 5,000 unit 02/24/20 14:00 03/05/20 13:44 Heparin SUB-Q 5,000 unit Q8HR INDU Administration Hydralazine HCl 25 mg 03/04/20 14:00 03/05/20 14:33 Apresoline PO 25 mg Q8HR INDU Administration Hydrophilic Ointment 1 applic 02/29/20 15:35 Vaseline Lip Therapy TP Q2HR PRN Dry Lips Nicardipine HCl 50 mg/ Sodium 250 mls @ 25 mls/hr 02/24/20 07:00 02/28/20 12:51 Chloride IV 0 mg/hr TITR INDU 0 mls/hr Titration Protocol 5 MG/HR Fentanyl Citrate 2,000 mcg in 100 mls @ 4.55 mls/hr 02/29/20 16:00 03/05/20 17:10 Fentanyl Drip Premix IV 3 mcg/kg/hr TITR INDU 13.65 mls/hr Titration Protocol 1 MCG/KG/HR MEROPENEM/NS 1 GRAM/100 ML 1 gram in 100 mls @ 100 mls/hr 03/03/20 18:00 03/05/20 18:40 Merrem/Ns 1 Gram/100 Ml IV 100 mls/hr QPM INDU Administration Protocol Sodium Chloride 100 mls @ 999 mls/hr 03/04/20 08:56 Nacl 0.9% IV NIKOLAY PRN Hypotension Sodium Chloride 100 mls @ 999 mls/hr 03/05/20 12:08 Nacl 0.9% IV NIKOLAY PRN Hypotension Labetalol HCl 10 mg 02/28/20 09:00 03/05/20 04:10 Labetalol IV 10 mg Q4H PRN Administration Hypertension Lorazepam 1 mg 02/28/20 04:20 03/05/20 10:48 Ativan IV 1 mg Q4H PRN Administration Agitation Lorazepam 2 mg 02/28/20 11:30 02/29/20 11:43 Ativan IV 2 mg Q1H PRN Administration CIWA-Ar 8-15 Lorazepam 4 mg 02/28/20 11:30 02/29/20 16:19 Ativan IV 4 mg Q1H PRN Administration CIWA-Ar 16-25 Metoprolol Tartrate 25 mg 02/28/20 10:00 03/05/20 10:47 Metoprolol PO 25 mg BID INDU Administration Midazolam HCl 2 mg 02/29/20 15:35 02/29/20 17:00 Versed IV 2 mg Q10MIN PRN Administration Sedation Multi-Ingred Cream/Lotion/Oil/Oint 1 applic 02/29/20 15:35 Artificial Tears Ophth Oint OU Q4HR PRN Dry Eye(s) Ondansetron HCl 4 mg 02/24/20 06:45 02/25/20 23:33 Zofran IV 4 mg Q8H PRN Administration Nausea And Vomiting Pantoprazole Sodium 40 mg 02/24/20 13:00 03/05/20 10:46 Protonix IV 40 mg QDAY INDU Administration Quetiapine Fumarate 100 mg 03/05/20 12:00 03/05/20 12:48 Seroquel PO 100 mg BID INDU Administration Scopolamine 1 each 03/04/20 16:00 03/04/20 15:58 Transderm-Scop TD 1 each Q3D INDU Administration Simple Syrup 15 ml 03/01/20 08:46 Simple Syrup FEEDTUBE PRN PRN Hypoglycemia Simple Syrup 30 ml 03/01/20 08:46 Simple Syrup FEEDTUBE PRN PRN Hypoglycemia Sodium Bicarbonate 325 mg 03/01/20 08:46 Sodium Bicarbonate FEEDTUBE PRN PRN For Clogged Feeding Tube Sodium Chloride 10 ml 02/24/20 10:00 03/05/20 12:07 Sodium Chloride Flush Syringe 10 Ml IV 10 ml BID INDU Administration Sodium Chloride 10 ml 02/24/20 06:45 Sodium Chloride Flush Syringe 10 Ml IV PRN PRN LINE FLUSH Tamsulosin HCl 0.4 mg 03/01/20 17:00 03/05/20 10:47 Flomax PO 0.4 mg QDAY INDU Administration Nutrition/Malnutrition Assess - Dietary Evaluation Nutrition/Malnutrition Findings: Nutrition Notes Start: 02/24/20 13:42 Freq: Status: Active Protocol: Document 03/04/20 11:10 [email or web address] (Rec: 03/04/20 11:56 [email or web address]) Co-Sign 03/04/20 11:10 LP Nutrition Notes Initial or Follow up Reassessment Current Diagnosis Acute Kidney Injury,Sepsis, Hypertension,Respiratory Failure,Hyperlipidemia Other Pertinent Diagnosis Acute pancreatitis, HD Current Diet Nepro 1.8 at 35ml/hr Labs/Tests K 3.3 BUN 65 Cr 5.3 BG 152 Pertinent Medications Reviewed Height 5 ft 1 in Weight 91 kg [place] Body Weight (kg) 47.72 BMI 37.9 Weight Status Obese Subjective/Other Information F/U for TF start/tolerance. TF running at goal rate. Pt receiving HD today. Percent of energy/protein needs met: 100%/70% Burn Absent Trauma Absent GI Symptoms None Current % PO Negligible Minimum of two criteria No Fluid Accumulation Moderate to Severe (severe) #2 Nutrition Diagnosis Inadequate oral intake Diagnosis Progress(for reassessment Continues documentation) #1 Nutrition Diagnosis Food and nutrition-related knowledge deficit Diagnosis Progress(for reassessment Continues documentation) Is patient on ventilator? Yes Is Patient Ambulatory and/or Out of Bed No REE-([place] [place]-confined to bed) 1823.604 Kcal/Kg value to use for calculation 16 Approximate Energy Requirements Using 1456 kcal/Kg Calculation Used for Recommendations Kcal/kg Additional Notes Pro: 96g (>2g/kg IBW) Fluid: 1ml/kcal Nutrition Intervention Change Diet Order: Continue TF Nutrition Support: Nepro 1.8 at 35ml/hr Flush 150ml q4h Kcal 1,512 Protein (gm) 68 Fluid (mL) 611 Goal #1 TF tolerance Goal #2 Meet at least 80% of energy and protein needs via TF Anticipated Discharge Needs: Undetermined at this time Follow-Up By: 03/06/20 Additional Comments FU stable TF
--- NOTE | 2020-03-06 01:56 | XRay Report ---
CHEST 1 VIEW 03/06/2020 12:48 AM INDICATION / CLINICAL INFORMATION: follow up respiratory failure. COMPARISON: Chest x-ray on 03/05/2020 FINDINGS: SUPPORT DEVICES: Stable, satisfactory device positioning. HEART / MEDIASTINUM: Stable. LUNGS / PLEURA: Stable mild bibasilar opacities. No pneumothorax. ADDITIONAL FINDINGS: No significant additional findings. IMPRESSION: 1. No significant change. Signer Name: Chance Leon MD Signed: 03/06/2020 1:51 AM Workstation Name: [employer]
[2020-03-06] MEDS: LORazepam 2 MG/ML VIAL IV PRN ×3 (04:28→21:12)
[2020-03-06] MEDS: IPRATROPIUM/ALBUTEROL SULFATE 3 ML AMPUL.NEB IH SCH ×4 (04:30→20:24)
[2020-03-06] MEDS: hydrALAZINE 25 MG TAB PO SCH ×3 (05:09→21:13)
[2020-03-06] MEDS: HEPARIN 5,000 UNIT/1 ML VIAL SUB-Q SCH ×3 (05:10→21:14)
[2020-03-06 06:37] LABS: Calcium 9.8 mg/dL (8.4-10.2)
[2020-03-06] MEDS: fentaNYL DRIP Premix 2,000 MCG/100 ML BAG IV SCH ×3 (06:52→21:45)
--- NOTE | 2020-03-06 08:55 | Progress Note ---
Assessment and Plan Assessment and plan: --JUANIS/worsening renal function[cr 5.6-6.2] Current Visit: Yes Status: Acute Plan to address problem: Worsening renal function, Initiated hemodialysis 03/03/2020 Hemodialysis per nephrology --Ac.hypoxic resp failure; intubated 02/29/20 Current Visit: Yes Status: Acute Plan to address problem: Mechanical ventilation , supportive care secondary to pancreatitis, lung infiltrate, possible ARDS Fluid overload.acute kidney injury Wean as tolerated and extubate Pulmonary critical following Chest x-ray today; worsening infiltrates --Severe sepsis secondary to pneumonia ; Current Visit: Yes Status: Acute Plan to address problem: Worsening bibasilar opacities on chest x-ray leukocytosis, tachycardia, tachypnea, fever, infiltrate on chest x-ray. Continue Zosyn, follow cultures, ID following -- Acute pancreatitis/lipase trending down Current Visit: Yes Status: Acute Plan to address problem: Mild improvement of symptoms Lipase trending down IV fluid and IV pain medication. Management per GI Hepatitis panel negative Repeat CT abdomen and pelvis 03/01/2020 Interval worsening of acute pancreatitis with increased jessica-pancreatic fat st randing and disorganized fluid Increased intraperitoneal edema simple free fluid collection in the pelvis Local inflammatory changes involving stomach small bowel and bilateral kidneys Interval development of bilateral pleural effusions and associated compressive atelectasis Interval development of diffuse body wall anasarca --Anemia; Current Visit: Yes Status: Acute Plan to address problem: monitor H&H and transfuse as needed. --Severe metabolic encephalopathy/AMS Current Visit: Yes Status: Acute Plan to address problem: Probably secondary alcohol withdrawal symptoms Treat the underlying cause,WA protocol, supportive care --Possible alcohol withdrawal symptoms; Current Visit: Yes Status: Acute Plan to address problem: Discussed with GI Dr. De La Rosa , agree with WA closely monitor , Ativan as needed Continue CIWA protocol --Worsening leukocytosis Current Visit: Yes Status: Acute Plan to address problem: Secondary to sepsis due to bibasilar pneumonia, acute pancreatitis, ID and GI following -- Hypertensive emergency POA Current Visit: Yes Status: Acute Plan to address problem: s/p Cardene drip, closely monitor Blood pressures uncontrolled Add hydralazine 25 mg 3 times a day Patient is already on amlodipine and metoprolol IV labetalol, PRN --Severe metabolic acidosis; Current Visit: Yes Status: Acute Plan to address problem: Management per nephrology --Medical noncompliance Current Visit: Yes Status: Acute Plan to address problem: Patient was counseled upon admission -- DVT prophylaxis Current Visit: Yes Status: Acute Plan to address problem: Patient placed on subcutaneous heparin. --Obesity; BMI 37.9 Current Visit: Yes Status: Acute Plan to address problem: patient needs weight reduction when medically stable. -- Full code status Current Visit: Yes Status: Acute Follow GI and pulmonary evaluation and recommendations We will closely monitor the patient and adjust the management as needed Closely monitor the patient and adjust management as needed. Patient is critically ill with multiple medical problems Prognosis poor, family aware The high probability of a clinically significant, sudden or life threatening deterioration of the [GI, CVS, renal, respiratory and metabolic] system(s) required my full and direct attention, intervention and personal management. The aggregate critical care time was [35] minutes. This time is in addition to time spent performing reported procedures but includes the following: [x] Data Review and interpretation [x] Patient assessment and monitoring of vital signs [x] Documentation [x] Medication orders and management 03/03; patient had worsening renal function, considering Vas-Cath placement and initiating hemodialysis Patient is critically ill with multiple organ involvement, family aware 03/04; patient remains critically ill on vent, initiated dialysis, poor prognosis multiorgan involvement Stonecutter Assistant recommendations noted and appreciated History Interval history: I have seen and examined the patient at the bedside Patient's chart and medications reviewed Orally intubated on ventilatory support Vital signs noted Hospitalist Physical - Constitutional Vitals: Temp Pulse Resp BP Pulse Ox 99.5 F 106 H 20 127/78 96 03/06/20 08:00 03/06/20 08:00 03/06/20 08:00 03/06/20 08:00 03/06/20 08:00 General appearance: Present: no acute distress, well-nourished, obese, other (Intubated) - EENT Eyes: Present: PERRL, EOM intact - Neck Neck: Present: supple, normal ROM - Respiratory Respiratory effort: normal Respiratory: bilateral: diminished, rhonchi, negative: rales, wheezing - Cardiovascular Rhythm: regular Heart Sounds: Present: S1 & S2 - Extremities Extremities: no ischemia Extremity abnormal: edema - Abdominal General gastrointestinal: soft, non-tender, non-distended, normal bowel sounds - Integumentary Integumentary: Present: clear, warm - Psychiatric Psychiatric: other (Intubated on vent) - Neurologic Neurologic: other (Intubated and sedated on vent) Results - Labs CBC & Chem 7: 03/06/20 08:54 03/06/20 04:40 Labs: Laboratory Last Values WBC 30.1 K/mm3 (4.5-11.0) H 03/04/20 04:05 RBC 3.44 M/mm3 (3.65-5.03) L 03/04/20 04:05 Hgb 8.2 gm/dl (10.1-14.3) L 03/04/20 04:05 Hct 25.2 % (30.3-42.9) L 03/04/20 04:05 MCV 73 fl (79-97) L 03/04/20 04:05 MCH 24 pg (28-32) L 03/04/20 04:05 MCHC 32 % (30-34) 03/04/20 04:05 RDW 20.7 % (13.2-15.2) H 03/04/20 04:05 Plt Count 554 K/mm3 (140-440) H 03/04/20 04:05 Lymph % (Auto) 3.3 % (13.4-35.0) L 03/04/20 04:05 [place] % (Auto) 6.7 % (0.0-7.3) 03/04/20 04:05 Eos % (Auto) 1.1 % (0.0-4.3) 03/04/20 04:05 Baso % (Auto) 0.3 % (0.0-1.8) 03/04/20 04:05 Lymph # (Auto) 1.0 K/mm3 (1.2-5.4) L 03/04/20 04:05 [place] # (Auto) 2.0 K/mm3 (0.0-0.8) H 03/04/20 04:05 Eos # (Auto) 0.3 K/mm3 (0.0-0.4) 03/04/20 04:05 Baso # (Auto) 0.1 K/mm3 (0.0-0.1) 03/04/20 04:05 Add Manual Diff Complete 03/03/20 04:36 Total Counted 100 03/03/20 04:36 Seg Neutrophils % 88.6 % (40.0-70.0) H 03/04/20 04:05 Seg Neuts % (Manual) 82.0 % (40.0-70.0) H 03/03/20 04:36 Band Neutrophils % 6.0 % 03/03/20 04:36 Lymphocytes % (Manual) 4.0 % (13.4-35.0) L 03/03/20 04:36 Reactive Lymphs % (Man) 0 % 03/03/20 04:36 Monocytes % (Manual) 7.0 % (0.0-7.3) 03/03/20 04:36 Eosinophils % (Manual) 1.0 % (0.0-4.3) 03/03/20 04:36 Basophils % (Manual) 0 % (0.0-1.8) 03/03/20 04:36 Metamyelocytes % 0 % 03/03/20 04:36 Myelocytes % 0 % 03/03/20 04:36 Promyelocytes % 0 % 03/03/20 04:36 Blast Cells % 0 % 03/03/20 04:36 Nucleated RBC % Not Reportable 03/03/20 04:36 Seg Neutrophils # 26.6 K/mm3 (1.8-7.7) H 03/04/20 04:05 Seg Neutrophils # Man 23.0 K/mm3 (1.8-7.7) H 03/03/20 04:36 Band Neutrophils # 1.7 K/mm3 03/03/20 04:36 Lymphocytes # (Manual) 1.1 K/mm3 (1.2-5.4) L 03/03/20 04:36 Abs React Lymphs (Man) 0.0 K/mm3 03/03/20 04:36 Monocytes # (Manual) 2.0 K/mm3 (0.0-0.8) H 03/03/20 04:36 Eosinophils # (Manual) 0.3 K/mm3 (0.0-0.4) 03/03/20 04:36 Basophils # (Manual) 0.0 K/mm3 (0.0-0.1) 03/03/20 04:36 Metamyelocytes # 0.0 K/mm3 03/03/20 04:36 Myelocytes # 0.0 K/mm3 03/03/20 04:36 Promyelocytes # 0.0 K/mm3 03/03/20 04:36 Blast Cells # 0.0 K/mm3 03/03/20 04:36 WBC Morphology Not Reportable 03/03/20 04:36 Hypersegmented Neuts Not Reportable 03/03/20 04:36 Hyposegmented Neuts Not Reportable 03/03/20 04:36 Hypogranular Neuts Not Reportable 03/03/20 04:36 Smudge Cells Not Reportable 03/03/20 04:36 Toxic Granulation Not Reportable 03/03/20 04:36 Toxic Vacuolation Not Reportable 03/03/20 04:36 Dohle Bodies Not Reportable 03/03/20 04:36 Pelger-Huet Anomaly Not Reportable 03/03/20 04:36 Maia Rods Not Reportable 03/03/20 04:36 Platelet Estimate Consistent w auto 03/03/20 04:36 Clumped Platelets Not Reportable 03/03/20 04:36 Plt Clumps, EDTA Not Reportable 03/03/20 04:36 Large Platelets Not Reportable 03/03/20 04:36 Giant Platelets Not Reportable 03/03/20 04:36 Platelet Satelliting Not Reportable 03/03/20 04:36 Plt Morphology Comment Not Reportable 03/03/20 04:36 RBC Morphology Not Reportable 03/03/20 04:36 Dimorphic RBCs Not Reportable 03/03/20 04:36 Polychromasia Few 03/03/20 04:36 Hypochromasia 1+ 03/03/20 04:36 Poikilocytosis Not Reportable 03/03/20 04:36 Anisocytosis 1+ 03/03/20 04:36 Microcytosis Not Reportable 03/03/20 04:36 Macrocytosis Not Reportable 03/03/20 04:36 Spherocytes Not Reportable 03/03/20 04:36 Pappenheimer Bodies Not Reportable 03/03/20 04:36 Sickle Cells Not Reportable 03/03/20 04:36 Target Cells Few 03/03/20 04:36 Tear Drop Cells Not Reportable 03/03/20 04:36 Ovalocytes Few 03/03/20 04:36 Helmet Cells Not Reportable 03/03/20 04:36 [place] Bodies Not Reportable 03/03/20 04:36 [place] Rings Not Reportable 03/03/20 04:36 Mirna Cells Not Reportable 03/03/20 04:36 Bite Cells Not Reportable 03/03/20 04:36 Crenated Cell Not Reportable 03/03/20 04:36 Elliptocytes Not Reportable 03/03/20 04:36 Acanthocytes (Spur) Not Reportable 03/03/20 04:36 Rouleaux Not Reportable 03/03/20 04:36 Hemoglobin C Crystals Not Reportable 03/03/20 04:36 Schistocytes Not Reportable 03/03/20 04:36 Malaria parasites Not Reportable 03/03/20 04:36 Edgardo Bodies Not Reportable 03/03/20 04:36 Hem Pathologist Commnt No 03/03/20 04:36 PT 13.7 Sec. (12.2-14.9) 02/25/20 03:49 INR 1.03 (0.87-1.13) 02/25/20 03:49 ABG pH 7.380 (7.320-7.450) 03/06/20 04:41 POC ABG pCO2 46.4 mmHg (32.0-48.0) 03/06/20 04:41 ABG pCO2 43.1 mm Hg 03/05/20 05:04 POC ABG pO2 64.9 mmHg (83-108) L 03/06/20 04:41 ABG pO2 62.5 mm Hg (80.0-90.0) L 03/05/20 05:04 POC ABG HCO3 26.8 03/06/20 04:41 ABG HCO3 26.4 mmol/L (20.0-26.0) H 03/05/20 05:04 ABG O2 Saturation 92.1 % (95.0-99.0) L 03/05/20 05:04 ABG O2 Content 11.9 (0.0-44) 03/05/20 05:04 POC ABG Base Excess 1.4 03/06/20 04:41 ABG Base Excess 1.5 mmol/L (-2.0-3.0) 03/05/20 05:04 ABG Hemoglobin 9.9 (12.0-17.5) L 03/06/20 04:41 ABG Oxyhemoglobin 90.5 (94-98) L 03/06/20 04:41 ABG Carboxyhemoglobin 1.9 % (0.0-5.0) 03/05/20 05:04 ABG Methemoglobin 0.3 (0.0-1.5) 03/06/20 04:41 Oxyhemoglobin 89.9 % (95.0-99.0) L 03/05/20 05:04 Carboxyhemoglobin 1 (0.5-1.5) 03/06/20 04:41 FiO2 30.0 03/06/20 04:41 Sodium 140 mmol/L (137-145) 03/06/20 04:40 Potassium 4.0 mmol/L (3.6-5.0) 03/06/20 04:40 Chloride 94.7 mmol/L (98-107) L 03/06/20 04:40 Carbon Dioxide 28 mmol/L (22-30) 03/06/20 04:40 Anion Gap 21 mmol/L 03/06/20 04:40 BUN 70 mg/dL (7-17) H 03/06/20 04:40 Creatinine 7.1 mg/dL (0.6-1.2) H 03/06/20 04:40 Estimated GFR 8 ml/min 03/06/20 04:40 BUN/Creatinine Ratio 10 % 03/06/20 04:40 Glucose 113 mg/dL (65-100) H 03/06/20 04:40 POC Glucose 134 (70-105) H 03/06/20 05:44 Lactic Acid 0.90 mmol/L (0.7-2.0) 02/27/20 19:33 Calcium 9.8 mg/dL (8.4-10.2) 03/06/20 04:40 Phosphorus 6.10 mg/dL (2.5-4.5) H 03/01/20 04:37 Magnesium 2.20 mg/dL (1.7-2.3) 03/04/20 04:05 Total Bilirubin 0.90 mg/dL (0.1-1.2) 03/05/20 06:00 Direct Bilirubin 0.6 mg/dL (0-0.2) H 03/05/20 06:00 Indirect Bilirubin 0.3 mg/dL 03/05/20 06:00 AST 39 units/L (5-40) 03/05/20 06:00 ALT 18 units/L (7-56) 03/05/20 06:00 Alkaline Phosphatase 133 units/L (35-129) H 03/05/20 06:00 C-Reactive Protein 36.50 mg/dL (0.00-1.30) H 03/01/20 11:06 Serum Total Protein 6.3 g/dL (6.1-8.1) 02/26/20 04:39 Total Protein 7.2 g/dL (6.3-8.2) 03/05/20 06:00 Albumin 2.5 g/dL (3.9-5) L 03/05/20 06:00 Albumin/Globulin Ratio 0.5 % 03/05/20 06:00 Jwcgy-0-Cqofnrypg 0.7 g/dL (0.2-0.3) H 02/26/20 04:39 Rsprp-4-Ynyavtfid 0.8 g/dL (0.5-0.9) 02/26/20 04:39 Beta Globulins 0.4 g/dL (0.2-0.5) 02/26/20 04:39 Gamma Globulins 1.2 g/dL (0.8-1.7) 02/26/20 04:39 Abnorm Protein Band 1 see below 02/26/20 04:39 PEP Interpretation see below H 02/26/20 04:39 Triglycerides 118 mg/dL (2-149) 02/26/20 04:39 Lipase 72 units/L (13-60) H 03/04/20 19:00 HCG, Qual Negative (Negative) 02/24/20 02:53 PTH Intact 911.3 pg/mL (15-65) H 02/26/20 08:15 Urine Color Yellow (Yellow) 02/24/20 Unknown Urine Turbidity Clear (Clear) 02/24/20 Unknown Urine pH 6.0 (5.0-7.0) 02/24/20 Unknown Ur Specific [place] 1.020 (1.003-1.030) 02/24/20 Unknown Urine Protein >500 mg/dL (Negative) 02/24/20 Unknown Urine Glucose (UA) 50 mg/dL (Negative) 02/24/20 Unknown Urine Ketones Neg mg/dL (Negative) 02/24/20 Unknown Urine Blood Lg (Negative) 02/24/20 Unknown Urine Nitrite Neg (Negative) 02/24/20 Unknown Urine Bilirubin Neg (Negative) 02/24/20 Unknown Urine Urobilinogen < 2.0 mg/dL (<2.0) 02/24/20 Unknown Ur Leukocyte Esterase Neg (Negative) 02/24/20 Unknown Urine WBC (Auto) 11.0 /HPF (0.0-6.0) H 02/24/20 Unknown Urine RBC (Auto) 149.0 /HPF (0.0-6.0) 02/24/20 Unknown U Epithel Cells (Auto) 5.0 /HPF (0-13.0) 02/24/20 Unknown Urine Bacteria (Auto) 1+ /HPF (Negative) 02/24/20 Unknown Urine Mucus Few /HPF 02/24/20 Unknown Urine Creatinine 161.0 mg/dL (0.1-20.0) H 02/25/20 22:55 Protein/Creatinin Ratio 0.93 02/25/20 22:55 Urine Total Protein 150 mg/dL (5-11.8) H 02/25/20 22:55 ZINA Screen Positive (Negative) H 02/26/20 04:39 Proteinase 3 (PR3) Ab <1.0 AI (<1.0) 02/26/20 04:39 Myeloperoxidase Ab <1.0 AI (<1.0) 02/26/20 04:39 Complement C3 153 mg/dL (83-193) 02/26/20 04:39 Complement C4 35 mg/dL (15-57) 02/26/20 04:39 Hepatitis A IgM Ab Non-reactive (NonReactive) 03/03/20 12:34 Hep Bs Antigen Non-reactive (Negative) 03/03/20 12:34 Hep B Core IgM Ab Non-reactive (NonReactive) 03/03/20 12:34 Hepatitis C Antibody Non-reactive (NonReactive) 03/03/20 12:34 Blood Type AB POSITIVE 03/01/20 18:30 Antibody Screen Negative 03/01/20 18:30 Crossmatch See Detail 03/01/20 18:30 - Diagnostic Impressions Diagnostic Impressions: Echocardiogram 02/26/20 09:11 Transthoracic Echocardiogram Indication: Cardiomegaly BP: 149/92 HR: 122 Conclusions *Global left ventricular systolic function is normal. *The estimated ejection fraction is 60-65%. *Moderate to severe concentric left ventricular hypertrophy is observed. *The left atrium is mild to moderately dilated. *The aortic valve leaflets are moderately thickened. *A mean gradient of 22.39 mmHg across the outflow tract is likely not due to but hyperdynamic flow and LVH. *There is trace tricuspid regurgitation. Findings Left Ventricle: The left ventricular chamber size is normal. Moderate to severe concentric left ventricular hypertrophy is observed. Global left ventricular systolic function is normal. The estimated ejection fraction is 60-65%. Left Atrium: The left atrium is mild to moderately dilated. Right Ventricle: The right ventricular cavity size is normal. The right ventricular global systolic function is normal. Right Atrium: The right atrial cavity size is normal. Aortic Valve: The aortic valve leaflets are moderately thickened. There is no evidence of aortic regurgitation. The mean gradient of the aortic valve is 22.39 mmHg. Mitral Valve: The mitral valve leaflets are mildly thickened. There is trace of mitral regurgitation. There is no evidence of mitral stenosis. Tricuspid Valve: There is trace tricuspid regurgitation. No pulmonary hypertension is noted. Pulmonic Valve: There is trace pulmonic regurgitation. Pericardium: There is no pericardial effusion. Aorta: There is no dilatation of the ascending aorta. There is no dilatation of the aortic root. Venous: The inferior vena cava appears normal in size. Measurements Chambers 2D Name Value Normal Range IVSd (2D) 1.8 cm (0.6 - 1.1) LVPWd (2D) 1.74 cm (0.6 - 1.1) LVIDd (2D) 4.57 cm (3.7 - 5.6) LVIDs (2D) 2.73 cm (2 - 3.8) LV FS (2D) 40.27 % - EF Teichholz (2D) 71.04 % - Ao root diameter (2D) 2.79 cm (2 - 3.7) Volumes/Mass Name Value Normal Range LA ESV SP 4CH (A/L) 54.18 ml - LA ESV SP 2CH (A/L) 61.84 ml - LA ESV BP (A/L) 58.1 ml - LA ESV BP (A/L) index 30.74 ml/m2 - LA ESV SP 4CH (MOD) 52.89 ml - LA ESV SP 2CH (MOD) 60.65 ml - LA ESV BP (MOD) 56.77 ml - LA ESV BP (MOD) index 30.04 ml/m2 - LV EDV SP 4CH (MOD) 164.2 ml - LV ESV SP 4CH (MOD) 58.04 ml - EF SP 4CH (MOD) 64.65 % - Diastolic/Systolic Function Name Value Normal Range MV E-wave Vmax 1.38 m/sec - MV deceleration time 92.78 msec - MV A-wave Vmax 1.44 m/sec - MV E:A ratio 0.95 ratio - Aortic Valve Name Value Normal Range AV Vmax 3.08 m/sec - AV VTI 36.74 cm - AV peak gradient 37.98 mmHg - AV mean gradient 22.39 mmHg - LVOT diameter 2.01 cm - LVOT Vmax 2.45 m/sec - LVOT VTI 29.85 cm - LVOT peak gradient 24.04 mmHg - LVOT mean gradient 11.11 mmHg - SV LVOT 94.73 ml - JADA (continuity Vmax) 2.52 cm2 - JADA (continuity VTI) 2.58 cm2 - Ascending Ao 2.64 cm - Mitral Valve Name Value Normal Range MV PHT 37.88 msec - MVA (PHT) 5.81 cm2 - Tricuspid Valve Name Value Normal Range IVC diameter 1.93 cm (1.2 - 2.3) Pulmonic Valve/Qp:Qs Name Value Normal Range PV Vmax 2.83 m/sec - PV VTI 45.88 cm - PV peak gradient 32.06 mmHg - PV mean gradient 16.11 mmHg - NE end-diastolic Vmax 0.81 m/sec - RVOT Vmax 1.82 m/sec - RVOT VTI 25.12 cm - RVOT peak gradient 13.3 mmHg - Franks/IV: Voiding Method External Female Catheter IV Catheter Type [Right VAS Cath Internal Jugular] IV Catheter Type [Left Upper INT / Saline Lock arm] IV Catheter Type [Right Upper INT / Saline Lock arm] IV Catheter Type [Right INT / Saline Lock Forearm] IV Catheter Type [Right Wrist] Peripheral IV IV Catheter Type [Right Peripheral IV Antecubital] Active Medications - Current Medications Current Medications: Generic Name Dose Route Start Last Admin Trade Name Freq PRN Reason Stop Dose Admin Acetaminophen 650 mg 02/26/20 16:23 03/04/20 21:50 Tylenol PO 650 mg Q4H PRN Administration Pain, Mild (1-3)/ Temp >100. Albuterol 2.5 mg 02/27/20 17:55 Proventil IH Q4HRT PRN Shortness Of Breath Albuterol/Ipratropium 1 ampul 02/28/20 12:17 03/06/20 04:30 Duoneb *Not For Prn Use* IH 1 ampul Q6HRT INDU Administration Amlodipine Besylate 10 mg 02/28/20 10:00 03/05/20 10:46 Amlodipine PO 10 mg QDAY INDU Administration Lipase/Protease/Amylase 1 each 03/01/20 08:[address] 10,500 Unit FEEDTUBE PRN PRN For Clogged Feeding Tube Dextrose 50 ml 02/29/20 08:00 03/01/20 00:20 D50w (25gm) Syringe IV 10 ml Q30MIN PRN Administration HYPOGLYCEMIA Protocol Fentanyl 50 mcg 02/29/20 15:35 03/04/20 20:35 Sublimaze IV 50 mcg Q10MIN PRN Administration ANALGESIA Haloperidol Lactate 5 mg 02/28/20 11:30 03/05/20 10:48 Haldol IV 5 mg Q1H PRN Administration Unrespon. to mult. doses BZD's Heparin Sodium (Porcine) 5,000 unit 02/24/20 14:00 03/06/20 05:10 Heparin SUB-Q 5,000 unit Q8HR INDU Administration Hydralazine HCl 25 mg 03/04/20 14:00 03/06/20 05:09 Apresoline PO 25 mg Q8HR INDU Administration Hydrophilic Ointment 1 applic 02/29/20 15:35 Vaseline Lip Therapy TP Q2HR PRN Dry Lips Nicardipine HCl 50 mg/ Sodium 250 mls @ 25 mls/hr 02/24/20 07:00 02/28/20 12:51 Chloride IV 0 mg/hr TITR INDU 0 mls/hr Titration Protocol 5 MG/HR Fentanyl Citrate 2,000 mcg in 100 mls @ 4.55 mls/hr 02/29/20 16:00 03/06/20 06:52 Fentanyl Drip Premix IV 3 mcg/kg/hr TITR INDU 13.65 mls/hr Administration Protocol 1 MCG/KG/HR MEROPENEM/NS 1 GRAM/100 ML 1 gram in 100 mls @ 100 mls/hr 03/03/20 18:00 03/05/20 18:40 Merrem/Ns 1 Gram/100 Ml IV 100 mls/hr QPM INDU Administration Protocol Sodium Chloride 100 mls @ 999 mls/hr 03/04/20 08:56 Nacl 0.9% IV NIKOLAY PRN Hypotension Sodium Chloride 100 mls @ 999 mls/hr 03/05/20 12:08 Nacl 0.9% IV NIKOLAY PRN Hypotension Labetalol HCl 10 mg 02/28/20 09:00 03/05/20 04:10 Labetalol IV 10 mg Q4H PRN Administration Hypertension Lansoprazole 30 mg 03/06/20 10:00 Prevacid Solutab FEEDTUBE QDAY INDU Lorazepam 1 mg 02/28/20 04:20 03/05/20 10:48 Ativan IV 1 mg Q4H PRN Administration Agitation Lorazepam 2 mg 02/28/20 11:30 03/05/20 21:47 Ativan IV 2 mg Q1H PRN Administration CIWA-Ar 8-15 Lorazepam 4 mg 02/28/20 11:30 03/06/20 04:28 Ativan IV 4 mg Q1H PRN Administration CIWA-Ar 16-25 Metoprolol Tartrate 25 mg 02/28/20 10:00 03/05/20 21:33 Metoprolol PO 25 mg BID INDU Administration Midazolam HCl 2 mg 02/29/20 15:35 02/29/20 17:00 Versed IV 2 mg Q10MIN PRN Administration Sedation Multi-Ingred Cream/Lotion/Oil/Oint 1 applic 02/29/20 15:35 Artificial Tears Ophth Oint OU Q4HR PRN Dry Eye(s) Ondansetron HCl 4 mg 02/24/20 06:45 02/25/20 23:33 Zofran IV 4 mg Q8H PRN Administration Nausea And Vomiting Quetiapine Fumarate 100 mg 03/05/20 12:00 03/05/20 21:34 Seroquel PO 100 mg BID INDU Administration Scopolamine 1 each 03/04/20 16:00 03/04/20 15:58 Transderm-Scop TD 1 each Q3D INDU Administration Simple Syrup 15 ml 03/01/20 08:46 Simple Syrup FEEDTUBE PRN PRN Hypoglycemia Simple Syrup 30 ml 03/01/20 08:46 Simple Syrup FEEDTUBE PRN PRN Hypoglycemia Sodium Bicarbonate 325 mg 03/01/20 08:46 Sodium Bicarbonate FEEDTUBE PRN PRN For Clogged Feeding Tube Sodium Chloride 10 ml 02/24/20 10:00 03/06/20 04:29 Sodium Chloride Flush Syringe 10 Ml IV 10 ml BID INDU Administration Sodium Chloride 10 ml 02/24/20 06:45 Sodium Chloride Flush Syringe 10 Ml IV PRN PRN LINE FLUSH Tamsulosin HCl 0.4 mg 03/01/20 17:00 03/05/20 10:47 Flomax PO 0.4 mg QDAY INDU Administration Nutrition/Malnutrition Assess - Dietary Evaluation Nutrition/Malnutrition Findings: Nutrition Notes Start: 02/24/20 13:42 Freq: Status: Active Protocol: Document 03/04/20 11:10 [email or web address] (Rec: 03/04/20 11:56 [email or web address]) Co-Sign 03/04/20 11:10 LP Nutrition Notes Initial or Follow up Reassessment Current Diagnosis Acute Kidney Injury,Sepsis, Hypertension,Respiratory Failure,Hyperlipidemia Other Pertinent Diagnosis Acute pancreatitis, HD Current Diet Nepro 1.8 at 35ml/hr Labs/Tests K 3.3 BUN 65 Cr 5.3 BG 152 Pertinent Medications Reviewed Height 5 ft 1 in Weight 91 kg [place] Body Weight (kg) 47.72 BMI 37.9 Weight Status Obese Subjective/Other Information F/U for TF start/tolerance. TF running at goal rate. Pt receiving HD today. Percent of energy/protein needs met: 100%/70% Burn Absent Trauma Absent GI Symptoms None Current % PO Negligible Minimum of two criteria No Fluid Accumulation Moderate to Severe (severe) #2 Nutrition Diagnosis Inadequate oral intake Diagnosis Progress(for reassessment Continues documentation) #1 Nutrition Diagnosis Food and nutrition-related knowledge deficit Diagnosis Progress(for reassessment Continues documentation) Is patient on ventilator? Yes Is Patient Ambulatory and/or Out of Bed No REE-([facility]-confined to bed) 1823.604 Kcal/Kg value to use for calculation 16 Approximate Energy Requirements Using 1456 kcal/Kg Calculation Used for Recommendations Kcal/kg Additional Notes Pro: 96g (>2g/kg IBW) Fluid: 1ml/kcal Nutrition Intervention Change Diet Order: Continue TF Nutrition Support: Nepro 1.8 at 35ml/hr Flush 150ml q4h Kcal 1,512 Protein (gm) 68 Fluid (mL) 611 Goal #1 TF tolerance Goal #2 Meet at least 80% of energy and protein needs via TF Anticipated Discharge Needs: Undetermined at this time Follow-Up By: 03/06/20 Additional Comments FU stable TF
[2020-03-06] MEDS: amLODIPine 10 MG TAB PO SCH (10:00)
[2020-03-06] MEDS: QUEtiapine 100 MG TAB PO SCH (10:28)
[2020-03-06] MEDS: LANSOPRAZOLE 30 MG SOLUTAB FEEDTUBE SCH (10:29)
[2020-03-06] MEDS: TAMSULOSIN 0.4 MG CAP PO SCH (10:29)
--- NOTE | 2020-03-06 10:49 | Progress Note ---
Assessment and Plan Acute Hypoxemic Respiratory Failure on MVS Severe Sepsis Acute Toxic-Metabolic Encephalopathy Hypertensive urgency Morbid obesity Acute pancreatitis, abdominal pain Medical non compliance Oropharyngeal Dysphagia - CT abd/pelvis with oral contrast reviewed with GI- No need for surgical intervention at this time - HD/UF for toxin and volume clearance per Renal service, HD/UF today - daily SAT and SBT assessment as tolerated - on minimal vent settings at this time - continue current vent settings - continue fentanyl for sedation , add Seroquel. Get 12 lead front desk monitor for QTc - reviewed 12 lead, no QTc prolongation - accuchecks with glycemic control per SSI (While critically ill target blood glucose of 140-180 mg/dL; avoid hypoglycemia) - sedation for target RASS -1 to -2 - continue to wean supplemental oxygen for target O2 sats > 90% - VAP bundle addressed - continue lung protective strategies - continue bronchodilators with pulmonary hygiene per RT - wean per pulmonary driven protocols otherwise - continue enteral nutritiuon at goal rate as tolerated - continue Meropenem; de-escalate per ID rec's - JUANIS per substance abuse services director, [employer] - VTE prophylaxis-Heparin - prn Analgesia per CPOT score - avoid nephrotoxins, renally dose all medications - Maintenance of sleep-wake cycle, avoid delirium - Stress ulcer prophylaxis-PPI - mobility protocol, off loading and frequent turning for pressure ulcer prevention - Monitor hemodynamics closely CONDITION: CRITICAL PROGNOSIS: GUARDED CODE STATUS: FULL CODE The high probability of a clinically significant, sudden or life-threatening deterioration of the [respiratory, cardiovascular & GI] system(s) required my full and direct attention, intervention and personal management. The aggregate critical care time was [34] minutes without overlap. Time includes spent on; [x] Data Review and interpretation [x] Patient assessment and monitoring of vital signs [x] Documentation [x] Medication orders and management Subjective Date of service: 03/06/20 Principal diagnosis: HTNsive urgency; Morbid obesity; Ac. pancreatitis; Abdominal pain Interval history: Patient is seen today for: Hypertensive urgency; Morbid obesity; Acute pancreatitis; abdominal pain; Medical non compliance; Acute Toxic Metabolic Encephalopathy Seen and examined at bedside; 24hour events reviewed; nursing and respiratory care staff consulted; no adverse overnight events reported to me; resting peacefully in bed; remains on MVS; episodes of agitation overnight requiring prn doses of Lorazepam; On Klonipin, Fentanyl continuous infusion; Objective Vital Signs - 12hr 03/05/20 03/05/20 03/05/20 23:00 23:20 23:30 Temperature Pulse Rate 99 H 99 H 99 H Pulse Rate [ Anterior Bilateral Throughout] Pulse Rate [ 109 H From Monitor] Respiratory 22 24 20 Rate Respiratory Rate [Anterior Bilateral Throughout] Blood Pressure 124/72 121/74 O2 Sat by Pulse 98 98 98 Oximetry 03/05/20 03/05/20 03/05/20 23:32 23:35 23:59 Temperature 99.7 F H Pulse Rate 98 H 101 H Pulse Rate [ Anterior Bilateral Throughout] Pulse Rate [ From Monitor] Respiratory 20 Rate Respiratory Rate [Anterior Bilateral Throughout] Blood Pressure 121/74 130/78 O2 Sat by Pulse 98 98 Oximetry 03/06/20 03/06/20 03/06/20 00:00 00:30 01:00 Temperature Pulse Rate 100 H 100 H 102 H Pulse Rate [ Anterior Bilateral Throughout] Pulse Rate [ From Monitor] Respiratory 20 20 18 Rate Respiratory Rate [Anterior Bilateral Throughout] Blood Pressure 130/78 132/79 142/86 O2 Sat by Pulse 98 97 98 Oximetry 03/06/20 03/06/20 03/06/20 01:15 01:30 02:00 Temperature Pulse Rate 101 H 101 H Pulse Rate [ Anterior Bilateral Throughout] Pulse Rate [ 100 H From Monitor] Respiratory 24 20 20 Rate Respiratory Rate [Anterior Bilateral Throughout] Blood Pressure 133/76 136/76 O2 Sat by Pulse 98 98 99 Oximetry 03/06/20 03/06/20 03/06/20 02:30 03:00 03:05 Temperature Pulse Rate 102 H 105 H 106 H Pulse Rate [ Anterior Bilateral Throughout] Pulse Rate [ 95 H From Monitor] Respiratory 19 21 24 Rate Respiratory Rate [Anterior Bilateral Throughout] Blood Pressure 138/80 149/89 O2 Sat by Pulse 98 98 98 Oximetry 03/06/20 03/06/20 03/06/20 03:26 03:30 04:00 Temperature 100.5 F H Pulse Rate 106 H 100 H Pulse Rate [ Anterior Bilateral Throughout] Pulse Rate [ From Monitor] Respiratory 22 20 Rate Respiratory Rate [Anterior Bilateral Throughout] Blood Pressure 143/88 133/78 O2 Sat by Pulse 98 98 Oximetry 03/06/20 03/06/20 03/06/20 04:28 04:30 05:00 Temperature Pulse Rate 115 H 115 H 104 H Pulse Rate [ 110 H Anterior Bilateral Throughout] Pulse Rate [ From Monitor] Respiratory 21 20 Rate Respiratory 22 Rate [Anterior Bilateral Throughout] Blood Pressure 145/91 125/73 O2 Sat by Pulse 96 97 Oximetry 03/06/20 03/06/20 03/06/20 05:09 05:30 06:00 Temperature Pulse Rate 102 H 98 H 102 H Pulse Rate [ Anterior Bilateral Throughout] Pulse Rate [ From Monitor] Respiratory 20 20 Rate Respiratory Rate [Anterior Bilateral Throughout] Blood Pressure 125/73 121/71 123/74 O2 Sat by Pulse 97 96 Oximetry 03/06/20 03/06/20 03/06/20 06:20 06:30 07:00 Temperature Pulse Rate 102 H 105 H 108 H Pulse Rate [ Anterior Bilateral Throughout] Pulse Rate [ 95 H From Monitor] Respiratory 24 20 21 Rate Respiratory Rate [Anterior Bilateral Throughout] Blood Pressure 145/85 146/92 O2 Sat by Pulse 98 95 94 Oximetry 03/06/20 03/06/20 03/06/20 07:30 08:00 08:30 Temperature 99.5 F Pulse Rate 106 H 106 H 105 H Pulse Rate [ Anterior Bilateral Throughout] Pulse Rate [ 106 H From Monitor] Respiratory 20 20 20 Rate Respiratory Rate [Anterior Bilateral Throughout] Blood Pressure 123/78 127/78 127/81 O2 Sat by Pulse 96 96 96 Oximetry 03/06/20 03/06/20 03/06/20 08:48 09:00 10:03 Temperature Pulse Rate 106 H 110 H 108 H Pulse Rate [ Anterior Bilateral Throughout] Pulse Rate [ From Monitor] Respiratory 26 H 25 H Rate Respiratory Rate [Anterior Bilateral Throughout] Blood Pressure 135/89 134/86 137/82 O2 Sat by Pulse 96 97 95 Oximetry Constitutional: no acute distress, other (Obese female with mildly increased respiratory effort at rest on MVS, sedated) Eyes: non-icteric ENT: oropharynx moist, other (ETT 24 cm TY, RIJ HD trialysis catheter) Neck: supple, no lymphadenopathy, no JVD Effort: normal Ascultation: Bilateral: diminished breath sounds (at the bases), rhonchi Percussion: Bilateral: not dull Cardiovascular: regular rate and rhythm, other (S1,S2) Gastrointestinal: hypoactive bowel sounds, non-tender, other (distended and firm) Integumentary: normal Extremities: no cyanosis, no edema, pink and warm, pulses normal Neurologic: pupils equal and round, unable to assess (sedated) Psychiatric: mood appropriate, affect normal CBC and BMP: 03/09/20 07:53 03/09/20 04:00 ABG, PT/INR, D-dimer: ABG ABG pH 7.380 (7.320-7.450) 03/06/20 04:41 POC ABG pCO2 46.4 mmHg (32.0-48.0) 03/06/20 04:41 ABG pCO2 43.1 mm Hg 03/05/20 05:04 POC ABG pO2 64.9 mmHg (83-108) L 03/06/20 04:41 ABG pO2 62.5 mm Hg (80.0-90.0) L 03/05/20 05:04 POC ABG HCO3 26.8 03/06/20 04:41 ABG O2 Saturation 92.1 % (95.0-99.0) L 03/05/20 05:04 PT/INR, D-dimer PT 13.7 Sec. (12.2-14.9) 02/25/20 03:49 INR 1.03 (0.87-1.13) 02/25/20 03:49 Abnormal lab findings: Abnormal Labs 02/24/20 02/24/20 02/24/20 02:53 02:53 Unknown WBC 12.7 H Hgb 10.0 L RBC Hct MCV 70 L MCH 22 L RDW 17.9 H Plt Count 458 H Lymph % (Auto) 8.9 L Lymph # 1.1 L Wright # Lymph # (Auto) Wright # (Auto) Seg Neutrophils % 84.2 H Seg Neutrophils # 10.7 H Seg Neuts % (Manual) Lymphocytes % (Manual) Nucleated RBC % Seg Neutrophils # Man Lymphocytes # (Manual) Monocytes # (Manual) ABG pH POC ABG pCO2 POC ABG pO2 ABG pO2 ABG HCO3 ABG O2 Saturation ABG Base Excess ABG Hemoglobin ABG Oxyhemoglobin Oxyhemoglobin Sodium Potassium Chloride Carbon Dioxide BUN 27 H Creatinine 1.7 H Glucose 118 H POC Glucose Calcium Phosphorus Magnesium Direct Bilirubin Alkaline Phosphatase Albumin C-Reactive Protein Zawna-6-Iynetptdq PEP Interpretation Lipase 232 H PTH Intact Urine WBC (Auto) 11.0 H Urine Creatinine Urine Total Protein ZINA Screen Crossmatch 02/25/20 02/25/20 02/25/20 00:03 03:49 03:49 WBC 29.1 H Hgb 9.4 L RBC Hct 30.2 L MCV 71 L MCH 22 L RDW 18.3 H Plt Count 525 H Lymph % (Auto) 3.4 L Lymph # 1.0 L Wright # 1.0 H Lymph # (Auto) Wright # (Auto) Seg Neutrophils % Seg Neutrophils # 26.4 H Seg Neuts % (Manual) Lymphocytes % (Manual) Nucleated RBC % Seg Neutrophils # Man Lymphocytes # (Manual) Monocytes # (Manual) ABG pH POC ABG pCO2 POC ABG pO2 ABG pO2 ABG HCO3 ABG O2 Saturation ABG Base Excess ABG Hemoglobin ABG Oxyhemoglobin Oxyhemoglobin Sodium Potassium Chloride Carbon Dioxide BUN Creatinine Glucose POC Glucose 126 H Calcium Phosphorus Magnesium Direct Bilirubin Alkaline Phosphatase Albumin C-Reactive Protein Zkcmq-7-Lnvtvfiyv PEP Interpretation Lipase 1486 H PTH Intact Urine WBC (Auto) Urine Creatinine Urine Total Protein ZINA Screen Crossmatch 02/25/20 02/25/20 02/25/20 03:49 05:55 22:55 WBC Hgb RBC Hct MCV MCH RDW Plt Count Lymph % (Auto) Lymph # Wright # Lymph # (Auto) Wright # (Auto) Seg Neutrophils % Seg Neutrophils # Seg Neuts % (Manual) Lymphocytes % (Manual) Nucleated RBC % Seg Neutrophils # Man Lymphocytes # (Manual) Monocytes # (Manual) ABG pH POC ABG pCO2 POC ABG pO2 ABG pO2 ABG HCO3 ABG O2 Saturation ABG Base Excess ABG Hemoglobin ABG Oxyhemoglobin Oxyhemoglobin Sodium 136 L Potassium Chloride 97.9 L Carbon Dioxide 21 L BUN 39 H Creatinine 3.0 H D Glucose 118 H POC Glucose 124 H Calcium Phosphorus Magnesium Direct Bilirubin Alkaline Phosphatase Albumin 3.6 L C-Reactive Protein Dmrhd-8-Qticzrgci PEP Interpretation Lipase PTH Intact Urine WBC (Auto) Urine Creatinine 161.0 H Urine Total Protein 150 H ZINA Screen Crossmatch 02/26/20 02/26/20 02/26/20 04:39 04:39 04:39 WBC 30.3 H Hgb 9.1 L RBC Hct 29.8 L MCV 71 L MCH 22 L RDW 18.2 H Plt Count 530 H Lymph % (Auto) Lymph # Wright # Lymph # (Auto) Wright # (Auto) Seg Neutrophils % Seg Neutrophils # Seg Neuts % (Manual) Lymphocytes % (Manual) Nucleated RBC % Seg Neutrophils # Man Lymphocytes # (Manual) Monocytes # (Manual) ABG pH POC ABG pCO2 POC ABG pO2 ABG pO2 ABG HCO3 ABG O2 Saturation ABG Base Excess ABG Hemoglobin ABG Oxyhemoglobin Oxyhemoglobin Sodium Potassium Chloride Carbon Dioxide 19 L BUN 44 H Creatinine 3.1 H Glucose 106 H POC Glucose Calcium 8.1 L Phosphorus Magnesium Direct Bilirubin Alkaline Phosphatase Albumin C-Reactive Protein Dmmlu-1-Ggsptjjpv PEP Interpretation Lipase 540 H PTH Intact Urine WBC (Auto) Urine Creatinine Urine Total Protein ZINA Screen Positive H Crossmatch 02/26/20 02/26/20 02/26/20 04:39 08:15 12:14 WBC Hgb RBC Hct MCV MCH RDW Plt Count Lymph % (Auto) Lymph # Wright # Lymph # (Auto) Wright # (Auto) Seg Neutrophils % Seg Neutrophils # Seg Neuts % (Manual) Lymphocytes % (Manual) Nucleated RBC % Seg Neutrophils # Man Lymphocytes # (Manual) Monocytes # (Manual) ABG pH POC ABG pCO2 POC ABG pO2 ABG pO2 ABG HCO3 ABG O2 Saturation ABG Base Excess ABG Hemoglobin ABG Oxyhemoglobin Oxyhemoglobin Sodium Potassium Chloride Carbon Dioxide BUN Creatinine Glucose POC Glucose 112 H Calcium Phosphorus Magnesium Direct Bilirubin Alkaline Phosphatase Albumin 2.8 L C-Reactive Protein Qoxqf-9-Fsamqyeeg 0.7 H PEP Interpretation see below H Lipase PTH Intact 911.3 H Urine WBC (Auto) Urine Creatinine Urine Total Protein ZINA Screen Crossmatch 02/27/20 02/27/20 02/27/20 04:18 04:18 04:18 WBC 26.8 H Hgb 7.9 L RBC Hct 26.3 L MCV 70 L MCH 21 L RDW 18.0 H Plt Count 513 H Lymph % (Auto) Lymph # Wright # Lymph # (Auto) Wright # (Auto) Seg Neutrophils % Seg Neutrophils # Seg Neuts % (Manual) Lymphocytes % (Manual) Nucleated RBC % Seg Neutrophils # Man Lymphocytes # (Manual) Monocytes # (Manual) ABG pH POC ABG pCO2 POC ABG pO2 ABG pO2 ABG HCO3 ABG O2 Saturation ABG Base Excess ABG Hemoglobin ABG Oxyhemoglobin Oxyhemoglobin Sodium 135 L 135 L Potassium Chloride Carbon Dioxide 15 L 16 L BUN 50 H 51 H Creatinine 3.4 H 3.4 H Glucose POC Glucose Calcium 7.4 L 7.5 L Phosphorus Magnesium Direct Bilirubin Alkaline Phosphatase Albumin 3.0 L C-Reactive Protein 37.30 H Lrbzr-4-Esljnwroy PEP Interpretation Lipase 177 H PTH Intact Urine WBC (Auto) Urine Creatinine Urine Total Protein ZINA Screen Crossmatch 02/27/20 02/28/20 02/28/20 16:57 05:07 05:07 WBC Hgb RBC Hct MCV MCH RDW Plt Count Lymph % (Auto) Lymph # Wright # Lymph # (Auto) Wright # (Auto) Seg Neutrophils % Seg Neutrophils # Seg Neuts % (Manual) Lymphocytes % (Manual) Nucleated RBC % Seg Neutrophils # Man Lymphocytes # (Manual) Monocytes # (Manual) ABG pH 7.336 L POC ABG pCO2 POC ABG pO2 ABG pO2 57.0 L ABG HCO3 16.4 L ABG O2 Saturation 88.2 L ABG Base Excess -8.4 L ABG Hemoglobin 10.4 L ABG Oxyhemoglobin Oxyhemoglobin 85.7 L Sodium Potassium Chloride Carbon Dioxide 14 L BUN 60 H Creatinine 4.2 H Glucose POC Glucose Calcium 8.2 L Phosphorus Magnesium Direct Bilirubin Alkaline Phosphatase Albumin C-Reactive Protein Usghb-7-Brtwqevew PEP Interpretation Lipase 155 H PTH Intact Urine WBC (Auto) Urine Creatinine Urine Total Protein ZINA Screen Crossmatch 02/28/20 02/28/20 02/28/20 05:56 11:05 11:05 WBC Hgb RBC Hct MCV MCH RDW Plt Count Lymph % (Auto) Lymph # Wright # Lymph # (Auto) Wright # (Auto) Seg Neutrophils % Seg Neutrophils # Seg Neuts % (Manual) Lymphocytes % (Manual) Nucleated RBC % Seg Neutrophils # Man Lymphocytes # (Manual) Monocytes # (Manual) ABG pH 7.317 L POC ABG pCO2 POC ABG pO2 76.2 L ABG pO2 ABG HCO3 16.4 L ABG O2 Saturation ABG Base Excess -8.9 L ABG Hemoglobin 6.6 L 7.6 L ABG Oxyhemoglobin Oxyhemoglobin 94.6 L Sodium Potassium Chloride Carbon Dioxide BUN Creatinine Glucose POC Glucose 115 H Calcium Phosphorus Magnesium Direct Bilirubin Alkaline Phosphatase Albumin C-Reactive Protein Rxikg-4-Rkgvbpchv PEP Interpretation Lipase PTH Intact Urine WBC (Auto) Urine Creatinine Urine Total Protein ZINA Screen Crossmatch 02/28/20 02/28/20 02/29/20 17:39 19:39 05:43 WBC Hgb RBC Hct MCV MCH RDW Plt Count Lymph % (Auto) Lymph # Wright # Lymph # (Auto) Wright # (Auto) Seg Neutrophils % Seg Neutrophils # Seg Neuts % (Manual) Lymphocytes % (Manual) Nucleated RBC % Seg Neutrophils # Man Lymphocytes # (Manual) Monocytes # (Manual) ABG pH 7.300 L POC ABG pCO2 POC ABG pO2 ABG pO2 117.5 H ABG HCO3 15.0 L ABG O2 Saturation ABG Base Excess -10.5 L ABG Hemoglobin 6.4 L ABG Oxyhemoglobin Oxyhemoglobin Sodium Potassium Chloride Carbon Dioxide BUN Creatinine Glucose POC Glucose 120 H 66 L Calcium Phosphorus Magnesium Direct Bilirubin Alkaline Phosphatase Albumin C-Reactive Protein Wxfhr-6-Joqzqwuam PEP Interpretation Lipase PTH Intact Urine WBC (Auto) Urine Creatinine Urine Total Protein ZINA Screen Crossmatch 02/29/20 02/29/20 02/29/20 05:45 12:04 12:31 WBC Hgb RBC Hct MCV MCH RDW Plt Count Lymph % (Auto) Lymph # Wright # Lymph # (Auto) Wright # (Auto) Seg Neutrophils % Seg Neutrophils # Seg Neuts % (Manual) Lymphocytes % (Manual) Nucleated RBC % Seg Neutrophils # Man Lymphocytes # (Manual) Monocytes # (Manual) ABG pH 7.212 L POC ABG pCO2 POC ABG pO2 ABG pO2 ABG HCO3 ABG O2 Saturation ABG Base Excess ABG Hemoglobin 7.4 L ABG Oxyhemoglobin Oxyhemoglobin Sodium Potassium Chloride Carbon Dioxide BUN Creatinine Glucose POC Glucose 65 L 64 L Calcium Phosphorus Magnesium Direct Bilirubin Alkaline Phosphatase Albumin C-Reactive Protein Ryocm-7-Uhegtkrfs PEP Interpretation Lipase PTH Intact Urine WBC (Auto) Urine Creatinine Urine Total Protein ZINA Screen Crossmatch 02/29/20 02/29/20 02/29/20 14:22 14:22 18:20 WBC Hgb RBC Hct MCV MCH RDW Plt Count Lymph % (Auto) Lymph # Wright # Lymph # (Auto) Wright # (Auto) Seg Neutrophils % Seg Neutrophils # Seg Neuts % (Manual) Lymphocytes % (Manual) Nucleated RBC % Seg Neutrophils # Man Lymphocytes # (Manual) Monocytes # (Manual) ABG pH POC ABG pCO2 POC ABG pO2 ABG pO2 ABG HCO3 ABG O2 Saturation ABG Base Excess ABG Hemoglobin ABG Oxyhemoglobin Oxyhemoglobin Sodium Potassium Chloride Carbon Dioxide 16 L BUN 77 H Creatinine 4.7 H Glucose POC Glucose 66 L Calcium Phosphorus 7.50 H Magnesium 2.60 H Direct Bilirubin Alkaline Phosphatase Albumin 2.3 L C-Reactive Protein Fbonn-4-Ixmyjqyut PEP Interpretation Lipase PTH Intact Urine WBC (Auto) Urine Creatinine Urine Total Protein ZINA Screen Crossmatch 02/29/20 03/01/20 03/01/20 18:24 04:05 04:37 WBC Hgb RBC Hct MCV MCH RDW Plt Count Lymph % (Auto) Lymph # Wright # Lymph # (Auto) Wright # (Auto) Seg Neutrophils % Seg Neutrophils # Seg Neuts % (Manual) Lymphocytes % (Manual) Nucleated RBC % Seg Neutrophils # Man Lymphocytes # (Manual) Monocytes # (Manual) ABG pH 7.271 L 7.347 L POC ABG pCO2 POC ABG pO2 ABG pO2 133.5 H ABG HCO3 15.8 L ABG O2 Saturation ABG Base Excess -8.9 L ABG Hemoglobin 7.2 L 7.6 L ABG Oxyhemoglobin 93.4 L Oxyhemoglobin Sodium Potassium Chloride 107.6 H Carbon Dioxide 14 L BUN 83 H Creatinine 5.6 H Glucose POC Glucose Calcium Phosphorus 6.10 H Magnesium 2.40 H Direct Bilirubin Alkaline Phosphatase Albumin C-Reactive Protein Fzojn-0-Ctestvjlv PEP Interpretation Lipase PTH Intact Urine WBC (Auto) Urine Creatinine Urine Total Protein ZINA Screen Crossmatch 03/01/20 03/01/20 03/01/20 11:06 16:22 18:12 WBC 30.5 H Hgb 6.2 L RBC 2.92 L Hct 20.8 L MCV 71 L MCH 21 L RDW 18.2 H Plt Count 560 H Lymph % (Auto) Lymph # Wright # Lymph # (Auto) Wright # (Auto) Seg Neutrophils % Seg Neutrophils # Seg Neuts % (Manual) 79.0 H Lymphocytes % (Manual) 3.0 L Nucleated RBC % Seg Neutrophils # Man 24.1 H Lymphocytes # (Manual) 0.9 L Monocytes # (Manual) 2.1 H ABG pH POC ABG pCO2 POC ABG pO2 ABG pO2 ABG HCO3 ABG O2 Saturation ABG Base Excess ABG Hemoglobin ABG Oxyhemoglobin Oxyhemoglobin Sodium Potassium 5.3 H D Chloride Carbon Dioxide 11 L BUN 77 H Creatinine 5.0 H Glucose 54 L POC Glucose 121 H Calcium Phosphorus Magnesium Direct Bilirubin Alkaline Phosphatase Albumin 3.0 L C-Reactive Protein 36.50 H Vpakf-5-Bsxkmnoxi PEP Interpretation Lipase PTH Intact Urine WBC (Auto) Urine Creatinine Urine Total Protein ZINA Screen Crossmatch 03/01/20 03/01/20 03/01/20 18:30 23:37 Unknown WBC Hgb RBC Hct MCV MCH RDW Plt Count Lymph % (Auto) Lymph # Wright # Lymph # (Auto) Wright # (Auto) Seg Neutrophils % Seg Neutrophils # Seg Neuts % (Manual) Lymphocytes % (Manual) Nucleated RBC % Seg Neutrophils # Man Lymphocytes # (Manual) Monocytes # (Manual) ABG pH POC ABG pCO2 POC ABG pO2 ABG pO2 ABG HCO3 ABG O2 Saturation ABG Base Excess ABG Hemoglobin ABG Oxyhemoglobin Oxyhemoglobin Sodium Potassium Chloride Carbon Dioxide BUN Creatinine Glucose POC Glucose 125 H Calcium Phosphorus Magnesium Direct Bilirubin Alkaline Phosphatase Albumin C-Reactive Protein Ewzjv-5-Ebosnajun PEP Interpretation Lipase 297 H PTH Intact Urine WBC (Auto) Urine Creatinine Urine Total Protein ZINA Screen Crossmatch See Detail 03/02/20 03/02/20 03/02/20 04:00 05:36 05:36 WBC 26.0 H Hgb 7.8 L RBC 3.26 L Hct 24.2 L MCV 74 L MCH 24 L RDW 21.3 H Plt Count 508 H Lymph % (Auto) Lymph # Wright # Lymph # (Auto) Wright # (Auto) Seg Neutrophils % Seg Neutrophils # Seg Neuts % (Manual) 86.0 H Lymphocytes % (Manual) 4.0 L Nucleated RBC % 2.0 H Seg Neutrophils # Man 22.4 H Lymphocytes # (Manual) 1.0 L Monocytes # (Manual) ABG pH POC ABG pCO2 27.8 L POC ABG pO2 ABG pO2 ABG HCO3 ABG O2 Saturation ABG Base Excess ABG Hemoglobin 8 L ABG Oxyhemoglobin Oxyhemoglobin Sodium Potassium Chloride Carbon Dioxide 17 L BUN 85 H Creatinine 5.6 H Glucose 109 H POC Glucose Calcium Phosphorus Magnesium 2.50 H Direct Bilirubin Alkaline Phosphatase Albumin 2.3 L C-Reactive Protein Tkdwf-8-Jtejxmwfx PEP Interpretation Lipase PTH Intact Urine WBC (Auto) Urine Creatinine Urine Total Protein ZINA Screen Crossmatch 03/03/20 03/03/20 03/03/20 04:00 04:36 04:36 WBC Hgb RBC Hct MCV MCH RDW Plt Count Lymph % (Auto) Lymph # Wright # Lymph # (Auto) Wright # (Auto) Seg Neutrophils % Seg Neutrophils # Seg Neuts % (Manual) Lymphocytes % (Manual) Nucleated RBC % Seg Neutrophils # Man Lymphocytes # (Manual) Monocytes # (Manual) ABG pH POC ABG pCO2 31.8 L POC ABG pO2 ABG pO2 ABG HCO3 ABG O2 Saturation ABG Base Excess ABG Hemoglobin 8.6 L ABG Oxyhemoglobin Oxyhemoglobin Sodium 147 H Potassium Chloride 108.4 H Carbon Dioxide 16 L BUN 87 H Creatinine 6.2 H Glucose POC Glucose Calcium Phosphorus Magnesium 2.50 H Direct Bilirubin 1.0 H Alkaline Phosphatase Albumin 2.4 L C-Reactive Protein Tndam-5-Ncsfwkwzk PEP Interpretation Lipase 119 H PTH Intact Urine WBC (Auto) Urine Creatinine Urine Total Protein ZINA Screen Crossmatch 03/03/20 03/03/20 03/03/20 04:36 12:48 17:48 WBC 28.0 H Hgb 8.1 L RBC 3.41 L Hct 25.3 L MCV 74 L MCH 24 L RDW 20.8 H Plt Count 557 H Lymph % (Auto) Lymph # Wright # Lymph # (Auto) Wright # (Auto) Seg Neutrophils % Seg Neutrophils # Seg Neuts % (Manual) 82.0 H Lymphocytes % (Manual) 4.0 L Nucleated RBC % Seg Neutrophils # Man 23.0 H Lymphocytes # (Manual) 1.1 L Monocytes # (Manual) 2.0 H ABG pH POC ABG pCO2 POC ABG pO2 ABG pO2 ABG HCO3 ABG O2 Saturation ABG Base Excess ABG Hemoglobin ABG Oxyhemoglobin Oxyhemoglobin Sodium Potassium Chloride Carbon Dioxide BUN Creatinine Glucose POC Glucose 131 H 113 H Calcium Phosphorus Magnesium Direct Bilirubin Alkaline Phosphatase Albumin C-Reactive Protein Mtcqm-2-Zqdqtrgye PEP Interpretation Lipase PTH Intact Urine WBC (Auto) Urine Creatinine Urine Total Protein ZINA Screen Crossmatch 03/03/20 03/04/20 03/04/20 23:43 03:43 04:05 WBC Hgb RBC Hct MCV MCH RDW Plt Count Lymph % (Auto) Lymph # Wright # Lymph # (Auto) Wright # (Auto) Seg Neutrophils % Seg Neutrophils # Seg Neuts % (Manual) Lymphocytes % (Manual) Nucleated RBC % Seg Neutrophils # Man Lymphocytes # (Manual) Monocytes # (Manual) ABG pH POC ABG pCO2 POC ABG pO2 ABG pO2 57.4 L ABG HCO3 27.2 H ABG O2 Saturation 88.6 L ABG Base Excess ABG Hemoglobin ABG Oxyhemoglobin Oxyhemoglobin Sodium Potassium 3.3 L Chloride Carbon Dioxide BUN 65 H Creatinine 5.3 H Glucose 152 H POC Glucose 149 H Calcium Phosphorus Magnesium Direct Bilirubin 0.7 H Alkaline Phosphatase Albumin 2.5 L C-Reactive Protein Qbrgc-5-Ptaiaaagd PEP Interpretation Lipase PTH Intact Urine WBC (Auto) Urine Creatinine Urine Total Protein ZINA Screen Crossmatch 03/04/20 03/04/20 03/04/20 04:05 05:26 12:21 WBC 30.1 H Hgb 8.2 L RBC 3.44 L Hct 25.2 L MCV 73 L MCH 24 L RDW 20.7 H Plt Count 554 H Lymph % (Auto) 3.3 L Lymph # Wright # Lymph # (Auto) 1.0 L Wright # (Auto) 2.0 H Seg Neutrophils % 88.6 H Seg Neutrophils # 26.6 H Seg Neuts % (Manual) Lymphocytes % (Manual) Nucleated RBC % Seg Neutrophils # Man Lymphocytes # (Manual) Monocytes # (Manual) ABG pH POC ABG pCO2 POC ABG pO2 ABG pO2 ABG HCO3 ABG O2 Saturation ABG Base Excess ABG Hemoglobin ABG Oxyhemoglobin Oxyhemoglobin Sodium Potassium Chloride Carbon Dioxide BUN Creatinine Glucose POC Glucose 136 H 155 H Calcium Phosphorus Magnesium Direct Bilirubin Alkaline Phosphatase Albumin C-Reactive Protein Vznbi-8-Dnqcqefey PEP Interpretation Lipase PTH Intact Urine WBC (Auto) Urine Creatinine Urine Total Protein ZINA Screen Crossmatch 03/04/20 03/04/20 03/04/20 18:02 19:00 23:24 WBC Hgb RBC Hct MCV MCH RDW Plt Count Lymph % (Auto) Lymph # Wright # Lymph # (Auto) Wright # (Auto) Seg Neutrophils % Seg Neutrophils # Seg Neuts % (Manual) Lymphocytes % (Manual) Nucleated RBC % Seg Neutrophils # Man Lymphocytes # (Manual) Monocytes # (Manual) ABG pH POC ABG pCO2 POC ABG pO2 ABG pO2 ABG HCO3 ABG O2 Saturation ABG Base Excess ABG Hemoglobin ABG Oxyhemoglobin Oxyhemoglobin Sodium Potassium Chloride Carbon Dioxide BUN Creatinine Glucose POC Glucose 124 H 115 H Calcium Phosphorus Magnesium Direct Bilirubin Alkaline Phosphatase Albumin C-Reactive Protein Wxoos-6-Sdxkdxedn PEP Interpretation Lipase 72 H PTH Intact Urine WBC (Auto) Urine Creatinine Urine Total Protein ZINA Screen Crossmatch 03/05/20 03/05/20 03/05/20 05:04 05:29 06:00 WBC Hgb RBC Hct MCV MCH RDW Plt Count Lymph % (Auto) Lymph # Wright # Lymph # (Auto) Wright # (Auto) Seg Neutrophils % Seg Neutrophils # Seg Neuts % (Manual) Lymphocytes % (Manual) Nucleated RBC % Seg Neutrophils # Man Lymphocytes # (Manual) Monocytes # (Manual) ABG pH POC ABG pCO2 POC ABG pO2 ABG pO2 62.5 L ABG HCO3 26.4 H ABG O2 Saturation 92.1 L ABG Base Excess ABG Hemoglobin 9.3 L ABG Oxyhemoglobin Oxyhemoglobin 89.9 L Sodium Potassium Chloride Carbon Dioxide BUN 54 H Creatinine 5.4 H Glucose 125 H POC Glucose 134 H Calcium Phosphorus Magnesium Direct Bilirubin 0.6 H Alkaline Phosphatase 133 H Albumin 2.5 L C-Reactive Protein [id number] PEP Interpretation Lipase PTH Intact Urine WBC (Auto) Urine Creatinine Urine Total Protein ZINA Screen Crossmatch 03/05/20 03/05/20 03/05/20 12:18 18:01 21:39 WBC Hgb RBC Hct MCV MCH RDW Plt Count Lymph % (Auto) Lymph # Wright # Lymph # (Auto) Wright # (Auto) Seg Neutrophils % Seg Neutrophils # Seg Neuts % (Manual) Lymphocytes % (Manual) Nucleated RBC % Seg Neutrophils # Man Lymphocytes # (Manual) Monocytes # (Manual) ABG pH POC ABG pCO2 POC ABG pO2 ABG pO2 ABG HCO3 ABG O2 Saturation ABG Base Excess ABG Hemoglobin ABG Oxyhemoglobin Oxyhemoglobin Sodium Potassium Chloride Carbon Dioxide BUN Creatinine Glucose POC Glucose 118 H 108 H 123 H Calcium Phosphorus Magnesium Direct Bilirubin Alkaline Phosphatase Albumin C-Reactive Protein [id number] PEP Interpretation Lipase PTH Intact Urine WBC (Auto) Urine Creatinine Urine Total Protein ZINA Screen Crossmatch 03/06/20 03/06/20 03/06/20 04:40 04:41 05:44 WBC Hgb RBC Hct MCV MCH RDW Plt Count Lymph % (Auto) Lymph # Wright # Lymph # (Auto) Wright # (Auto) Seg Neutrophils % Seg Neutrophils # Seg Neuts % (Manual) Lymphocytes % (Manual) Nucleated RBC % Seg Neutrophils # Man Lymphocytes # (Manual) Monocytes # (Manual) ABG pH POC ABG pCO2 POC ABG pO2 64.9 L ABG pO2 ABG HCO3 ABG O2 Saturation ABG Base Excess ABG Hemoglobin 9.9 L ABG Oxyhemoglobin 90.5 L Oxyhemoglobin Sodium Potassium Chloride 94.7 L Carbon Dioxide BUN 70 H Creatinine 7.1 H Glucose 113 H POC Glucose 134 H Calcium Phosphorus Magnesium Direct Bilirubin Alkaline Phosphatase Albumin C-Reactive Protein [id number] PEP Interpretation Lipase PTH Intact Urine WBC (Auto) Urine Creatinine Urine Total Protein ZINA Screen Crossmatch Allied health notes reviewed: RT
[2020-03-06 11:18] LABS: Hematocrit 27.8 % (30.3-42.9); Hemoglobin 8.7 gm/dl (10.1-14.3); Mean Corpuscular HGB Conc 31 % (30-34); Mean Corpuscular Volume 75 fl (79-97); Platelet Count 516 K/mm3 (140-440); Red Blood Count 3.71 M/mm3 (3.65-5.03); Red Cell Distribution Width 21.2 % (13.2-15.2)
[2020-03-06] MEDS: ACETAMINOPHEN 325 MG TAB PO PRN ×2 (11:50→17:40)
--- NOTE | 2020-03-06 12:16 | Progress Note ---
Assessment and Plan Cultures: Urine culture grew 10-100,000 usual xavier. Blood culture 02/26/2020 no growth 02/29/2020 sputum culture: rare usual xavier Assessment: 39 years old female with history of hypertension, previous kidney stone, hyperlipidemia and obesity admitted on 02/24/2020 due to a week history of severe epigastric abdominal pain radiated to the right flank and back: #Acute sepsis: Likely secondary to severe pancreatitis and related complications. Remains critically ill. #Acute severe pancreatitis: Unclear etiology. Initial non-contrasted CT showed no evidence of necrosis or pseudocyst or abscess formation. Repeat CT 03/05 with interval worsening of acute pancreatitis without clear evidence of necrosis, h owever was done without IV contrast due to her renal function. #Acute renal failure: now requiring dialysis. Nephrology on board. #Acute respiratory hypoxic failure: on the vent. #?Alcohol abuse Recommendations: -continue with IV Meropenem, renally dosed, D4 today. Plan to stop once clinically better / WBC better Louie Graves MD, FACP [facility] ([facility] C: [phone] O: [phone] F: [phone] Subjective Date of service: 03/06/20 Principal diagnosis: HTNsive urgency; Morbid obesity; Ac. pancreatitis; Abdominal pain Interval history: One low grade fever. Getting HD at bedside. Remains intubated on the vent. Objective - Exam Narrative Exam: Physical Exam: Constitutional: sedated, intubated, on the vent Head, Ears, Nose: Normocephalic, atraumatic. External ears, nose normal Eyes: Conjunctivae/corneas clear. No icterus. No ptosis. Neck: intubated Oral: intubated Cardiovascular: S1, S2 + Respiratory: AE fair but reduced in the bases GI: distended, bowel sounds + Musculoskeletal: No pedal edema, no cyanosis. HD cath + Skin: No rash or abscess Hem/Lymphatic: No palpable cervical or supraclavicular nodes. No lymphangitis Psych: no agitation, calm Neurological: sedated, intubated, on the vent, exam limited - Constitutional Vitals: Vital Signs Temp Pulse Resp BP Pulse Ox 99.5 F 116 H 28 H 146/86 94 03/06/20 08:00 03/06/20 11:00 03/06/20 11:00 03/06/20 11:00 03/06/20 11:00 Temperature -Last 24 Hours Temperature 99.5 F Temperature 99.5 F Temperature 100.5 F Temperature 99.7 F Temperature 99.3 F Temperature 100.9 F Temperature 99.6 F - Labs CBC & Chem 7: 03/06/20 08:54 03/06/20 04:40 Labs: Abnormal lab results 03/05/20 03/05/20 03/05/20 Range/Units 12:18 18:01 21:39 WBC (4.5-11.0) K/mm3 Hgb (10.1-14.3) gm/dl Hct (30.3-42.9) % MCV (79-97) fl MCH (28-32) pg RDW (13.2-15.2) % Plt Count (140-440) K/mm3 POC ABG pO2 (83-108) mmHg ABG Hemoglobin (12.0-17.5) ABG Oxyhemoglobin (94-98) Chloride (98-107) mmol/L BUN (7-17) mg/dL Creatinine (0.6-1.2) mg/dL Glucose (65-100) mg/dL POC Glucose 118 H 108 H 123 H (70-105) 03/06/20 03/06/20 03/06/20 Range/Units 04:40 04:41 05:44 WBC (4.5-11.0) K/mm3 Hgb (10.1-14.3) gm/dl Hct (30.3-42.9) % MCV (79-97) fl MCH (28-32) pg RDW (13.2-15.2) % Plt Count (140-440) K/mm3 POC ABG pO2 64.9 L (83-108) mmHg ABG Hemoglobin 9.9 L (12.0-17.5) ABG Oxyhemoglobin 90.5 L (94-98) Chloride 94.7 L (98-107) mmol/L BUN 70 H (7-17) mg/dL Creatinine 7.1 H (0.6-1.2) mg/dL Glucose 113 H (65-100) mg/dL POC Glucose 134 H (70-105) 03/06/20 Range/Units 08:54 WBC 31.5 H (4.5-11.0) K/mm3 Hgb 8.7 L (10.1-14.3) gm/dl Hct 27.8 L (30.3-42.9) % MCV 75 L (79-97) fl MCH 23 L (28-32) pg RDW 21.2 H (13.2-15.2) % Plt Count 516 H (140-440) K/mm3 POC ABG pO2 (83-108) mmHg ABG Hemoglobin (12.0-17.5) ABG Oxyhemoglobin (94-98) Chloride (98-107) mmol/L BUN (7-17) mg/dL Creatinine (0.6-1.2) mg/dL Glucose (65-100) mg/dL POC Glucose (70-105)
--- NOTE | 2020-03-06 12:59 | Progress Note ---
Assessment and Plan # Acute Kidney Injury/Chronic Kidney Disease: suspect JUANIS in setting of hypertensive urgency and pre-renal injury from pancreatitis. Additional JUANIS risk factors include use of NSAID (Toradol) and PPI. 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 Creatinine has worsened from 1.7->3.0->3.1->3.4->4.2->4.7->5.6->5.0> 6.2 since admission, now intubated -Status post Vas-Cath placement on 12/02/2019 and initiation of dialysis. -Hyperkalemia and acidosis has been corrected. Volume status is improving. Urine output however has declined. Patient undergoing dialysis today. Plan to dialyze her again tomorrow. - strict Is/Os - ordered serologies-> ANCA negative; ZINA is positive. Check anti-DNA antibody. Complement levels are normal. Minimal proteinuria per UP/C, PTH high for CKD; reviewed urinalysis which does show hematuria and proteinuria - BP control as below # Hypertensive Emergency: BPs improved, off Cardene gtt, agree to titrate back to home amlodipine, metoprolol. On HANNA-I at home, hold for now. # Acidosis: Bicarbonate level is back up to 24. Discontinue bicarbonate drip . # Pancreatitis: appreciate GI, pain management per primary. # Thrombocytosis # Leukocytosis Subjective Date of service: 03/06/20 Principal diagnosis: HTNsive urgency; Morbid obesity; Ac. pancreatitis; Abdominal pain Interval history: Patient remains in the ICU. Undergoing dialysis. Tolerating well. Currently on 30% FiO2. Objective - Vital Signs Vital signs: Vital Signs - 12hr 03/06/20 03/06/20 03/06/20 01:00 01:15 01:30 Temperature Pulse Rate 102 H 101 H Pulse Rate [ Anterior Bilateral Throughout] Pulse Rate [ 100 H From Monitor] Respiratory 18 24 20 Rate Respiratory Rate [Anterior Bilateral Throughout] Blood Pressure 142/86 133/76 O2 Sat by Pulse 98 98 98 Oximetry 03/06/20 03/06/20 03/06/20 02:00 02:30 03:00 Temperature Pulse Rate 101 H 102 H 105 H Pulse Rate [ Anterior Bilateral Throughout] Pulse Rate [ From Monitor] Respiratory 20 19 21 Rate Respiratory Rate [Anterior Bilateral Throughout] Blood Pressure 136/76 138/80 149/89 O2 Sat by Pulse 99 98 98 Oximetry 03/06/20 03/06/20 03/06/20 03:05 03:26 03:30 Temperature 100.5 F H Pulse Rate 106 H 106 H Pulse Rate [ Anterior Bilateral Throughout] Pulse Rate [ 95 H From Monitor] Respiratory 24 22 Rate Respiratory Rate [Anterior Bilateral Throughout] Blood Pressure 143/88 O2 Sat by Pulse 98 98 Oximetry 03/06/20 03/06/20 03/06/20 04:00 04:28 04:30 Temperature Pulse Rate 100 H 115 H 115 H Pulse Rate [ 110 H Anterior Bilateral Throughout] Pulse Rate [ From Monitor] Respiratory 20 21 Rate Respiratory 22 Rate [Anterior Bilateral Throughout] Blood Pressure 133/78 145/91 O2 Sat by Pulse 98 96 Oximetry 03/06/20 03/06/20 03/06/20 05:00 05:09 05:30 Temperature Pulse Rate 104 H 102 H 98 H Pulse Rate [ Anterior Bilateral Throughout] Pulse Rate [ From Monitor] Respiratory 20 20 Rate Respiratory Rate [Anterior Bilateral Throughout] Blood Pressure 125/73 125/73 121/71 O2 Sat by Pulse 97 97 Oximetry 03/06/20 03/06/20 03/06/20 06:00 06:20 06:30 Temperature Pulse Rate 102 H 102 H 105 H Pulse Rate [ Anterior Bilateral Throughout] Pulse Rate [ 95 H From Monitor] Respiratory 20 24 20 Rate Respiratory Rate [Anterior Bilateral Throughout] Blood Pressure 123/74 145/85 O2 Sat by Pulse 96 98 95 Oximetry 03/06/20 03/06/20 03/06/20 07:00 07:30 08:00 Temperature 99.5 F Pulse Rate 108 H 106 H 104 H Pulse Rate [ Anterior Bilateral Throughout] Pulse Rate [ 106 H From Monitor] Respiratory 21 20 20 Rate Respiratory Rate [Anterior Bilateral Throughout] Blood Pressure 146/92 123/78 127/78 O2 Sat by Pulse 94 96 96 Oximetry 03/06/20 03/06/20 03/06/20 08:30 08:48 09:00 Temperature Pulse Rate 105 H 106 H 110 H Pulse Rate [ Anterior Bilateral Throughout] Pulse Rate [ From Monitor] Respiratory 20 26 H Rate Respiratory Rate [Anterior Bilateral Throughout] Blood Pressure 127/81 135/89 134/86 O2 Sat by Pulse 96 96 97 Oximetry 03/06/20 03/06/20 03/06/20 09:30 10:00 10:03 Temperature Pulse Rate 107 H 107 H 108 H Pulse Rate [ Anterior Bilateral Throughout] Pulse Rate [ From Monitor] Respiratory 20 20 25 H Rate Respiratory Rate [Anterior Bilateral Throughout] Blood Pressure 125/76 137/82 137/82 O2 Sat by Pulse 98 97 95 Oximetry 03/06/20 03/06/20 03/06/20 10:30 11:00 11:30 Temperature Pulse Rate 110 H 116 H 116 H Pulse Rate [ Anterior Bilateral Throughout] Pulse Rate [ From Monitor] Respiratory 28 H 28 H 29 H Rate Respiratory Rate [Anterior Bilateral Throughout] Blood Pressure 134/86 146/86 151/89 O2 Sat by Pulse 95 94 95 Oximetry 03/06/20 03/06/20 12:00 12:30 Temperature 100.7 F H Pulse Rate 118 H 112 H Pulse Rate [ Anterior Bilateral Throughout] Pulse Rate [ From Monitor] Respiratory 22 22 Rate Respiratory Rate [Anterior Bilateral Throughout] Blood Pressure 140/89 134/74 O2 Sat by Pulse 96 97 Oximetry - General Appearance General appearance: well-developed, well-nourished, appears stated age, intubated EENT: PERRL, mucous membranes moist Neck: no JVD, no thyromegaly, no carotid bruit, supple, other (Right IJ Vas-Cath in place) Respiratory: Present: Clear to Ascultation Cardiology: regular, normal heart rate Gastrointestinal: normal, normoactive bowel sounds Integumentary: other (1+ edema) - Lab 03/06/20 08:54 03/06/20 04:40 Most recent lab results ABG pH 7.380 (7.320-7.450) 03/06/20 04:41 ABG pCO2 43.1 mm Hg 03/05/20 05:04 ABG pO2 62.5 mm Hg (80.0-90.0) L 03/05/20 05:04 ABG HCO3 26.4 mmol/L (20.0-26.0) H 03/05/20 05:04 ABG O2 Saturation 92.1 % (95.0-99.0) L 03/05/20 05:04 Calcium 9.8 mg/dL (8.4-10.2) 03/06/20 04:40 Phosphorus 6.10 mg/dL (2.5-4.5) H 03/01/20 04:37 Magnesium 2.20 mg/dL (1.7-2.3) 03/04/20 04:05 Urine Creatinine 161.0 mg/dL (0.1-20.0) H 02/25/20 22:55 Urine Total Protein 150 mg/dL (5-11.8) H 02/25/20 22:55 Medications & Allergies - Medications Allergies/Adverse Reactions: Allergies No Known Allergies Allergy (Unverified 09/05/19 10:15) Home Medications: Home Medications Medication Instructions Recorded Confirmed Last Taken Type Amlodipine Besylate [Norvasc] 10 mg PO DAILY 09/05/19 02/24/20 09/04/19 History Furosemide [Lasix] 20 mg PO QDAY #30 tablet 09/05/19 02/24/20 Unknown Rx Lisinopril [Zestril] 5 mg PO DAILY #30 tablet 09/05/19 02/24/20 Unknown Rx Metoprolol [Lopressor TAB] 25 mg PO BID #60 tablet 09/05/19 02/24/20 Unknown Rx Active Medications: Generic Name Dose Route Start Last Admin Trade Name Freq PRN Reason Stop Dose Admin Acetaminophen 650 mg 02/26/20 16:23 03/06/20 11:50 Tylenol PO 650 mg Q4H PRN Administration Pain, Mild (1-3)/ Temp >100. Albuterol 2.5 mg 02/27/20 17:55 Proventil IH Q4HRT PRN Shortness Of Breath Albuterol/Ipratropium 1 ampul 02/28/20 12:17 03/06/20 08:57 Duoneb *Not For Prn Use* IH 1 ampul Q6HRT INDU Administration Amlodipine Besylate 10 mg 02/28/20 10:00 03/05/20 10:46 Amlodipine PO 10 mg QDAY INDU Administration Lipase/Protease/Amylase 1 each 03/01/20 08:46 Pancrealivia Davis 10,500 Unit FEEDTUBE PRN PRN For Clogged Feeding Tube Dextrose 50 ml 02/29/20 08:00 03/01/20 00:20 D50w (25gm) Syringe IV 10 ml Q30MIN PRN Administration HYPOGLYCEMIA Protocol Fentanyl 50 mcg 02/29/20 15:35 03/04/20 20:35 Sublimaze IV 50 mcg Q10MIN PRN Administration ANALGESIA Heparin Sodium (Porcine) 5,000 unit 02/24/20 14:00 03/06/20 05:10 Heparin SUB-Q 5,000 unit Q8HR INDU Administration Hydralazine HCl 25 mg 03/04/20 14:00 03/06/20 05:09 Apresoline PO 25 mg Q8HR INDU Administration Hydrophilic Ointment 1 applic 02/29/20 15:35 Vaseline Lip Therapy TP Q2HR PRN Dry Lips Fentanyl Citrate 2,000 mcg in 100 mls @ 4.55 mls/hr 02/29/20 16:00 03/06/20 06:52 Fentanyl Drip Premix IV 3 mcg/kg/hr TITR INDU 13.65 mls/hr Administration Protocol 1 MCG/KG/HR MEROPENEM/NS 1 GRAM/100 ML 1 gram in 100 mls @ 100 mls/hr 03/03/20 18:00 03/05/20 18:40 Merrem/Ns 1 Gram/100 Ml IV 100 mls/hr QPM INDU Administration Protocol Sodium Chloride 100 mls @ 999 mls/hr 03/05/20 12:08 Nacl 0.9% IV NIKOLAY PRN Hypotension Labetalol HCl 10 mg 02/28/20 09:00 03/05/20 04:10 Labetalol IV 10 mg Q4H PRN Administration Hypertension Lansoprazole 30 mg 03/06/20 10:00 03/06/20 10:29 Prevacid Solutab FEEDTUBE 30 mg QDAY INDU Administration Lorazepam 4 mg 03/06/20 11:00 Ativan IV Q4H PRN AGITATION Metoprolol Tartrate 25 mg 02/28/20 10:00 03/05/20 21:33 Metoprolol PO 25 mg BID INDU Administration Multi-Ingred Cream/Lotion/Oil/Oint 1 applic 02/29/20 15:35 Artificial Tears Ophth Oint OU Q4HR PRN Dry Eye(s) Ondansetron HCl 4 mg 02/24/20 06:45 02/25/20 23:33 Zofran IV 4 mg Q8H PRN Administration Nausea And Vomiting Quetiapine Fumarate 100 mg 03/06/20 10:00 03/06/20 10:28 Seroquel PO 100 mg QAM INDU Administration Quetiapine Fumarate 200 mg 03/06/20 22:00 Seroquel PO QHS INDU Scopolamine 1 each 03/04/20 16:00 03/04/20 15:58 Transderm-Scop TD 1 each Q3D INDU Administration Simple Syrup 15 ml 03/01/20 08:46 Simple Syrup FEEDTUBE PRN PRN Hypoglycemia Simple Syrup 30 ml 03/01/20 08:46 Simple Syrup FEEDTUBE PRN PRN Hypoglycemia Sodium Bicarbonate 325 mg 03/01/20 08:46 Sodium Bicarbonate FEEDTUBE PRN PRN For Clogged Feeding Tube Sodium Chloride 10 ml 02/24/20 10:00 03/06/20 12:11 Sodium Chloride Flush Syringe 10 Ml IV 10 ml BID INDU Administration Sodium Chloride 10 ml 02/24/20 06:45 Sodium Chloride Flush Syringe 10 Ml IV PRN PRN LINE FLUSH Tamsulosin HCl 0.4 mg 03/01/20 17:00 03/06/20 10:29 Flomax PO 0.4 mg QDAY INDU Administration
[2020-03-06] MEDS ORDERED: SODIUM CHLORIDE 0.9% 100 ML IV PRN (13:00)
[2020-03-06 14:24] LABS: Band Neutrophils # (Manual) 0.3 K/mm3; Basophils % (Manual) 0 % (0.0-1.8); Hypochromasia 1+; Myelocytes # (Manual) 0.3 K/mm3; Total Cells Counted 100
[2020-03-06 14:26] LABS: Anisocytosis Few; Platelet Estimate Consistent w Auto
[2020-03-06] MEDS: METOPROLOL TARTRATE 25 MG TAB PO SCH ×2 (16:24→21:14)
--- NOTE | 2020-03-06 17:03 | Gastroenterology Progress Note ---
Assessment and Plan (1) Acute pancreatitis - - unclear etiology for pancreatitis. - multi-organ failure. - remains critically ill - on HD. - CT noncontrast on 03/05 with worsening inflammation but no necrosis. Rec - cont with supportive care - nutrition via Dobhoff. - may need MRCP at some point in the future but no need urgently. . (2) Altered mental status - remains intubated and sedated. - will follow. Subjective Date of service: 03/06/20 Principal diagnosis: HTNsive urgency; Morbid obesity; Ac. pancreatitis; Abdominal pain Interval history: Patient remains intubated and sedated. Per nursing, had agitation and received IV ativan. tolerating tube feeds. No BM today. Objective - Constitutional Vitals: Temp Pulse Resp BP Pulse Ox 102.3 F H 120 H 35 H 140/82 95 03/06/20 16:00 03/06/20 16:24 03/06/20 16:00 03/06/20 16:24 03/06/20 16:00 General appearance: no acute distress - Respiratory Respiratory effort: other (on the vent) - Cardiovascular Heart Rate: 120 Heart Sounds: Present: S1 & S2 - Gastrointestinal General gastrointestinal: Present: soft, distended - Neurologic Neurological: other (sedated) - Labs CBC & Chem 7: 03/06/20 08:54 03/06/20 04:40 Labs: Laboratory Results - last 24 hr 03/05/20 03/05/20 03/06/20 18:01 21:39 00:22 WBC RBC Hgb Hct MCV MCH MCHC RDW Plt Count Add Manual Diff Total Counted Seg Neuts % (Manual) Band Neutrophils % Lymphocytes % (Manual) Reactive Lymphs % (Man) Monocytes % (Manual) Eosinophils % (Manual) Basophils % (Manual) Metamyelocytes % Myelocytes % Promyelocytes % Blast Cells % Nucleated RBC % Seg Neutrophils # Man Band Neutrophils # Lymphocytes # (Manual) Abs React Lymphs (Man) Monocytes # (Manual) Eosinophils # (Manual) Basophils # (Manual) Metamyelocytes # Myelocytes # Promyelocytes # Blast Cells # WBC Morphology Hypersegmented Neuts Hyposegmented Neuts Hypogranular Neuts Smudge Cells Toxic Granulation Toxic Vacuolation Dohle Bodies Pelger-Huet Anomaly Maia Rods Platelet Estimate Clumped Platelets Plt Clumps, EDTA Large Platelets Giant Platelets Platelet Satelliting Plt Morphology Comment RBC Morphology Dimorphic RBCs Polychromasia Hypochromasia Poikilocytosis Anisocytosis Microcytosis Macrocytosis Spherocytes Pappenheimer Bodies Sickle Cells Target Cells Tear Drop Cells Ovalocytes Helmet Cells Jackson-Eastman Bodies [place] Rings [place] Cells Bite Cells Crenated Cell Elliptocytes Acanthocytes (Spur) Rouleaux Hemoglobin C Crystals Schistocytes Malaria parasites Edgardo Bodies Hem Pathologist Commnt ABG pH POC ABG pCO2 POC ABG pO2 POC ABG HCO3 POC ABG Base Excess ABG Hemoglobin ABG Oxyhemoglobin ABG Methemoglobin Carboxyhemoglobin FiO2 Sodium Potassium Chloride Carbon Dioxide Anion Gap BUN Creatinine Estimated GFR BUN/Creatinine Ratio Glucose POC Glucose 108 H 123 H 101 Calcium 03/06/20 03/06/20 03/06/20 04:40 04:41 05:44 WBC RBC Hgb Hct MCV MCH MCHC RDW Plt Count Add Manual Diff Total Counted Seg Neuts % (Manual) Band Neutrophils % Lymphocytes % (Manual) Reactive Lymphs % (Man) Monocytes % (Manual) Eosinophils % (Manual) Basophils % (Manual) Metamyelocytes % Myelocytes % Promyelocytes % Blast Cells % Nucleated RBC % Seg Neutrophils # Man Band Neutrophils # Lymphocytes # (Manual) Abs React Lymphs (Man) Monocytes # (Manual) Eosinophils # (Manual) Basophils # (Manual) Metamyelocytes # Myelocytes # Promyelocytes # Blast Cells # WBC Morphology Hypersegmented Neuts Hyposegmented Neuts Hypogranular Neuts Smudge Cells Toxic Granulation Toxic Vacuolation Dohle Bodies Pelger-Huet Anomaly Maia Rods Platelet Estimate Clumped Platelets Plt Clumps, EDTA Large Platelets Giant Platelets Platelet Satelliting Plt Morphology Comment RBC Morphology Dimorphic RBCs Polychromasia Hypochromasia Poikilocytosis Anisocytosis Microcytosis Macrocytosis Spherocytes Pappenheimer Bodies Sickle Cells Target Cells Tear Drop Cells Ovalocytes Helmet Cells Jackson-Eastman Bodies [place] Rings [place] Cells Bite Cells Crenated Cell Elliptocytes Acanthocytes (Spur) Rouleaux Hemoglobin C Crystals Schistocytes Malaria parasites Edgardo Bodies Hem Pathologist Commnt ABG pH 7.380 POC ABG pCO2 46.4 POC ABG pO2 64.9 L POC ABG HCO3 26.8 POC ABG Base Excess 1.4 ABG Hemoglobin 9.9 L ABG Oxyhemoglobin 90.5 L ABG Methemoglobin 0.3 Carboxyhemoglobin 1 FiO2 30.0 Sodium 140 Potassium 4.0 Chloride 94.7 L Carbon Dioxide 28 Anion Gap 21 BUN 70 H Creatinine 7.1 H Estimated GFR 8 BUN/Creatinine Ratio 10 Glucose 113 H POC Glucose 134 H Calcium 9.8 03/06/20 08:54 WBC 31.5 H RBC 3.71 Hgb 8.7 L Hct 27.8 L MCV 75 L MCH 23 L MCHC 31 RDW 21.2 H Plt Count 516 H Add Manual Diff Complete Total Counted 100 Seg Neuts % (Manual) 93.0 H Band Neutrophils % 1.0 Lymphocytes % (Manual) 2.0 L Reactive Lymphs % (Man) 0 Monocytes % (Manual) 1.0 Eosinophils % (Manual) 2.0 Basophils % (Manual) 0 Metamyelocytes % 0 Myelocytes % 1.0 Promyelocytes % 0 Blast Cells % 0 Nucleated RBC % Not Reportable Seg Neutrophils # Man 29.3 H Band Neutrophils # 0.3 Lymphocytes # (Manual) 0.6 L Abs React Lymphs (Man) 0.0 Monocytes # (Manual) 0.3 Eosinophils # (Manual) 0.6 H Basophils # (Manual) 0.0 Metamyelocytes # 0.0 Myelocytes # 0.3 Promyelocytes # 0.0 Blast Cells # 0.0 WBC Morphology Not Reportable Hypersegmented Neuts Not Reportable Hyposegmented Neuts Not Reportable Hypogranular Neuts Not Reportable Smudge Cells Not Reportable Toxic Granulation Not Reportable Toxic Vacuolation Not Reportable Dohle Bodies Not Reportable Pelger-Huet Anomaly Not Reportable Maia Rods Not Reportable Platelet Estimate Consistent w auto Clumped Platelets Not Reportable Plt Clumps, EDTA Not Reportable Large Platelets Not Reportable Giant Platelets Not Reportable Platelet Satelliting Not Reportable Plt Morphology Comment Not Reportable RBC Morphology Not Reportable Dimorphic RBCs Not Reportable Polychromasia Not Reportable Hypochromasia 1+ Poikilocytosis Not Reportable Anisocytosis Few Microcytosis Few Macrocytosis Not Reportable Spherocytes Not Reportable Pappenheimer Bodies Not Reportable Sickle Cells Not Reportable Target Cells Not Reportable Tear Drop Cells Not Reportable Ovalocytes Not Reportable Helmet Cells Not Reportable Jackson-Eastman Bodies Not Reportable [place] Rings Not Reportable [place] Cells Not Reportable Bite Cells Not Reportable Crenated Cell Not Reportable Elliptocytes Not Reportable Acanthocytes (Spur) Not Reportable Rouleaux Not Reportable Hemoglobin C Crystals Not Reportable Schistocytes Not Reportable Malaria parasites Not Reportable Edgardo Bodies Not Reportable Hem Pathologist Commnt No ABG pH POC ABG pCO2 POC ABG pO2 POC ABG HCO3 POC ABG Base Excess ABG Hemoglobin ABG Oxyhemoglobin ABG Methemoglobin Carboxyhemoglobin FiO2 Sodium Potassium Chloride Carbon Dioxide Anion Gap BUN Creatinine Estimated GFR BUN/Creatinine Ratio Glucose POC Glucose Calcium
--- NOTE | 2020-03-06 18:29 | Event Note ---
Date: 03/06/20 Patient spiked fever, patient is already on meropenem Get a set of blood cultures, urine culture and sputum culture Antipyretic Tylenol as needed Chest x-ray this morning; stable bibasilar infiltrates ID following. We will closely monitor the patient and adjust management as needed
[2020-03-06] MEDS: MEROPENEM/NS 1 GRAM/100 ML 1 GRAM/100 ML BAG IV SCH (18:35)
[2020-03-06] MEDS: QUEtiapine 200 MG TAB PO SCH (21:13)
[2020-03-07] MEDS: IPRATROPIUM/ALBUTEROL SULFATE 3 ML AMPUL.NEB IH SCH ×4 (01:39→21:05)
--- NOTE | 2020-03-07 02:19 | XRay Report ---
CHEST 1 VIEW INDICATION: follow up respiratory failure COMPARISON: One day prior. FINDINGS: Support devices: Unchanged. Heart: Enlarged but stable Lungs/Pleura: Slight left basilar density, unchanged, atelectasis versus consolidation. IMPRESSION: 1. Persistent left basilar density. No new disease. Signer Name: Danny Lopez MD Signed: 03/07/2020 2:15 AM Workstation Name: [id number]
[2020-03-07 05:55] LABS: Hematocrit 26.6 % (30.3-42.9); Hemoglobin 8.3 gm/dl (10.1-14.3); Mean Corpuscular HGB Conc 31 % (30-34); Mean Corpuscular Volume 76 fl (79-97); Platelet Count 470 K/mm3 (140-440)
[2020-03-07 05:59] LABS: Red Cell Distribution Width 21.3 % (13.2-15.2)
[2020-03-07] MEDS: HEPARIN 5,000 UNIT/1 ML VIAL SUB-Q SCH ×3 (06:04→21:27)
[2020-03-07] MEDS: hydrALAZINE 25 MG TAB PO SCH ×3 (06:06→21:29)
[2020-03-07 06:11] LABS: Albumin 2.5 g/dL (3.9-5); Calcium 9.2 mg/dL (8.4-10.2)
[2020-03-07] MEDS: LORazepam 2 MG/ML VIAL IV PRN ×3 (06:18→18:12)
--- NOTE | 2020-03-07 08:28 | Gastroenterology Progress Note ---
Assessment and Plan (1) Acute pancreatitis - - unclear etiology for pancreatitis. - multi-organ failure. - remains critically ill - on HD. - CT noncontrast on 03/05 with worsening inflammation but no necrosis. - recurrent fever on 03/06/2020. - wbc trending down. Rec - cont with supportive care - nutrition via [place]. - may need MRCP at some point in the future but no need urgently. - ID on board. currently on meropenem. . (2) Altered mental status - remains intubated and sedated. - will follow. Subjective Date of service: 03/07/20 Principal diagnosis: HTNsive urgency; Morbid obesity; Ac. pancreatitis; Abdominal pain Interval history: Patient had temp up to 100.9 overnight. Remains intubated and sedated on fentanyl. No BM overnight per nursing. Objective - Constitutional Vitals: Temp Pulse Resp BP Pulse Ox 99.7 F H 103 H 20 121/75 96 03/07/20 03:30 03/07/20 08:08 03/07/20 07:00 03/07/20 08:08 03/07/20 08:08 General appearance: other (intubated and sedated) - Respiratory Respiratory effort: other (intubated on the vent) - Cardiovascular Rhythm: regular Heart Sounds: Present: S1 & S2 - Gastrointestinal General gastrointestinal: Present: soft, distended - Integumentary Integumentary: Present: warm - Neurologic Neurological: other (sedated) - Labs CBC & Chem 7: 03/07/20 05:03 03/07/20 05:03 Labs: Laboratory Results - last 24 hr 03/06/20 03/06/20 03/06/20 08:54 11:56 18:19 WBC 31.5 H RBC 3.71 Hgb 8.7 L Hct 27.8 L MCV 75 L MCH 23 L MCHC 31 RDW 21.2 H Plt Count 516 H Add Manual Diff Complete Total Counted 100 Seg Neuts % (Manual) 93.0 H Band Neutrophils % 1.0 Lymphocytes % (Manual) 2.0 L Reactive Lymphs % (Man) 0 Monocytes % (Manual) 1.0 Eosinophils % (Manual) 2.0 Basophils % (Manual) 0 Metamyelocytes % 0 Myelocytes % 1.0 Promyelocytes % 0 Blast Cells % 0 Nucleated RBC % Not Reportable Seg Neutrophils # Man 29.3 H Band Neutrophils # 0.3 Lymphocytes # (Manual) 0.6 L Abs React Lymphs (Man) 0.0 Monocytes # (Manual) 0.3 Eosinophils # (Manual) 0.6 H Basophils # (Manual) 0.0 Metamyelocytes # 0.0 Myelocytes # 0.3 Promyelocytes # 0.0 Blast Cells # 0.0 WBC Morphology Not Reportable Hypersegmented Neuts Not Reportable Hyposegmented Neuts Not Reportable Hypogranular Neuts Not Reportable Smudge Cells Not Reportable Toxic Granulation Not Reportable Toxic Vacuolation Not Reportable Dohle Bodies Not Reportable Pelger-Huet Anomaly Not Reportable Maia Rods Not Reportable Platelet Estimate Consistent w auto Clumped Platelets Not Reportable Plt Clumps, EDTA Not Reportable Large Platelets Not Reportable Giant Platelets Not Reportable Platelet Satelliting Not Reportable Plt Morphology Comment Not Reportable RBC Morphology Not Reportable Dimorphic RBCs Not Reportable Polychromasia Not Reportable Hypochromasia 1+ Poikilocytosis Not Reportable Anisocytosis Few Microcytosis Few Macrocytosis Not Reportable Spherocytes Not Reportable Pappenheimer Bodies Not Reportable Sickle Cells Not Reportable Target Cells Not Reportable Tear Drop Cells Not Reportable Ovalocytes Not Reportable Helmet Cells Not Reportable Jackson-Sophia Bodies Not Reportable Boron Rings Not Reportable Rowe Cells Not Reportable Bite Cells Not Reportable Crenated Cell Not Reportable Elliptocytes Not Reportable Acanthocytes (Spur) Not Reportable Rouleaux Not Reportable Hemoglobin C Crystals Not Reportable Schistocytes Not Reportable Malaria parasites Not Reportable Edgardo Bodies Not Reportable Hem Pathologist Commnt No Sodium Potassium Chloride Carbon Dioxide Anion Gap BUN Creatinine Estimated GFR BUN/Creatinine Ratio Glucose POC Glucose 131 H 117 H Calcium Magnesium Total Bilirubin AST ALT Alkaline Phosphatase Total Protein Albumin Albumin/Globulin Ratio 03/07/20 03/07/20 03/07/20 00:22 05:03 05:03 WBC 26.9 H RBC 3.50 L Hgb 8.3 L Hct 26.6 L MCV 76 L MCH 24 L MCHC 31 RDW 21.3 H Plt Count 470 H Add Manual Diff Total Counted Seg Neuts % (Manual) Band Neutrophils % Lymphocytes % (Manual) Reactive Lymphs % (Man) Monocytes % (Manual) Eosinophils % (Manual) Basophils % (Manual) Metamyelocytes % Myelocytes % Promyelocytes % Blast Cells % Nucleated RBC % Seg Neutrophils # Man Band Neutrophils # Lymphocytes # (Manual) Abs React Lymphs (Man) Monocytes # (Manual) Eosinophils # (Manual) Basophils # (Manual) Metamyelocytes # Myelocytes # Promyelocytes # Blast Cells # WBC Morphology Hypersegmented Neuts Hyposegmented Neuts Hypogranular Neuts Smudge Cells Toxic Granulation Toxic Vacuolation Dohle Bodies Pelger-Huet Anomaly Maia Rods Platelet Estimate Clumped Platelets Plt Clumps, EDTA Large Platelets Giant Platelets Platelet Satelliting Plt Morphology Comment RBC Morphology Dimorphic RBCs Polychromasia Hypochromasia Poikilocytosis Anisocytosis Microcytosis Macrocytosis Spherocytes Pappenheimer Bodies Sickle Cells Target Cells Tear Drop Cells Ovalocytes Helmet Cells Jackson-Sophia Bodies Boron Rings Rowe Cells Bite Cells Crenated Cell Elliptocytes Acanthocytes (Spur) Rouleaux Hemoglobin C Crystals Schistocytes Malaria parasites Edgardo Bodies Hem Pathologist Commnt Sodium 141 Potassium 3.8 Chloride 94.8 L Carbon Dioxide 28 Anion Gap 22 BUN 52 H Creatinine 6.3 H Estimated GFR 9 BUN/Creatinine Ratio 8 Glucose 106 H POC Glucose 103 Calcium 9.2 Magnesium 2.00 Total Bilirubin 0.50 AST 40 ALT 19 Alkaline Phosphatase 132 H Total Protein 6.7 Albumin 2.5 L Albumin/Globulin Ratio 0.6 03/07/20 05:49 WBC RBC Hgb Hct MCV MCH MCHC RDW Plt Count Add Manual Diff Total Counted Seg Neuts % (Manual) Band Neutrophils % Lymphocytes % (Manual) Reactive Lymphs % (Man) Monocytes % (Manual) Eosinophils % (Manual) Basophils % (Manual) Metamyelocytes % Myelocytes % Promyelocytes % Blast Cells % Nucleated RBC % Seg Neutrophils # Man Band Neutrophils # Lymphocytes # (Manual) Abs React Lymphs (Man) Monocytes # (Manual) Eosinophils # (Manual) Basophils # (Manual) Metamyelocytes # Myelocytes # Promyelocytes # Blast Cells # WBC Morphology Hypersegmented Neuts Hyposegmented Neuts Hypogranular Neuts Smudge Cells Toxic Granulation Toxic Vacuolation Dohle Bodies Pelger-Huet Anomaly Maia Rods Platelet Estimate Clumped Platelets Plt Clumps, EDTA Large Platelets Giant Platelets Platelet Satelliting Plt Morphology Comment RBC Morphology Dimorphic RBCs Polychromasia Hypochromasia Poikilocytosis Anisocytosis Microcytosis Macrocytosis Spherocytes Pappenheimer Bodies Sickle Cells Target Cells Tear Drop Cells Ovalocytes Helmet Cells Jackson-Sophia Bodies Boron Rings Mirna Cells Bite Cells Crenated Cell Elliptocytes Acanthocytes (Spur) Rouleaux Hemoglobin C Crystals Schistocytes Malaria parasites Edgardo Bodies Hem Pathologist Commnt Sodium Potassium Chloride Carbon Dioxide Anion Gap BUN Creatinine Estimated GFR BUN/Creatinine Ratio Glucose POC Glucose 102 Calcium Magnesium Total Bilirubin AST ALT Alkaline Phosphatase Total Protein Albumin Albumin/Globulin Ratio
--- NOTE | 2020-03-07 08:44 | Progress Note ---
Assessment and Plan Assessment and plan: --JUANIS/worsening renal function[cr 5.6-6.2] Worsening renal function, Initiated hemodialysis 03/03/2020 Hemodialysis per nephrology --Acute hypoxic resp failure; intubated 02/29/20 Mechanical ventilation , supportive care secondary to pancreatitis, lung infiltrate, possible ARDS Fluid overload.acute kidney injury Wean as tolerated and extubate Pulmonary critical following Chest x-ray today; worsening infiltrates --Severe sepsis secondary to pneumonia and pancreatitis; Worsening bibasilar opacities on chest x-ray leukocytosis, tachycardia, tachypnea, fever, infiltrate on chest x-ray. Continue antibiotic, follow cultures, ID following -- Acute severe pancreatitis Initial non-contrasted CT showed no evidence of necrosis or pseudocyst or abscess formation. Repeat CT 03/05 with interval worsening of acute pancreatitis without clear evidence of necrosis with increased jessica-pancreatic fat stranding and disorganized fluid, however was done without IV contrast due to her renal function. -- Bilateral pleural effusions. Etiology secondary to above Compressive atelectasis --Anemia monitor H&H and transfuse as needed. Anasarca --Severe metabolic encephalopathy Probably secondary alcohol withdrawal symptoms Treat the underlying cause,CIWA protocol, supportive care --Alcohol withdrawal closely monitor , Ativan as needed Continue CIWA protocol --Worsening leukocytosis Secondary to sepsis due to bibasilar pneumonia, acute pancreatitis, ID and GI following -- Hypertensive emergency POA s/p Cardene drip, closely monitor Blood pressures uncontrolled IV labetalol, PRN --Severe metabolic acidosis; Management per nephrology --Medical noncompliance Patient was counseled upon admission -- DVT prophylaxis Patient placed on subcutaneous heparin. --Obesity; BMI 37.9 patient needs weight reduction when medically stable. -- Full code status Follow GI and pulmonary evaluation and recommendations We will closely monitor the patient and adjust the management as needed Closely monitor the patient and adjust management as needed. Patient is critically ill with multiple medical problems Prognosis poor, family aware The high probability of a clinically significant, sudden or life threatening deterioration of the [GI, CVS, renal, respiratory and metabolic] system(s) required my full and direct attention, intervention and personal management. The aggregate critical care time was [32] minutes. This time is in addition to time spent performing reported procedures but includes the following: [x] Data Review and interpretation [x] Patient assessment and monitoring of vital signs [x] Documentation [x] Medication orders and management 03/03; patient had worsening renal function, considering Vas-Cath placement and initiating hemodialysis Patient is critically ill with multiple organ involvement, family aware 03/04; patient remains critically ill on vent, initiated dialysis, poor prognosis multiorgan involvement Set Up Mechanic Automatic Line recommendations noted and appreciated 04/03/2020. Patient remains critically ill on mechanical ventilation AC mode rate 20, tidal volume 450, FiO2 30% with a PEEP of 6. Patient with multiorgan failure. Continue hemodialysis per nephrology. GI believes patient may need MRCP at some point in the future but no need urgently. Continue fentanyl drip for sedation and wean as tolerated. Patient currently with meropenem/ID following. Hospitalist Physical - Constitutional Vitals: Temp Pulse Resp BP Pulse Ox 99.7 F H 103 H 20 121/75 96 03/07/20 03:30 03/07/20 08:08 03/07/20 08:00 03/07/20 08:08 03/07/20 08:08 General appearance: Present: no acute distress, well-nourished, obese, other (Intubated) Results - Labs CBC & Chem 7: 03/07/20 05:03 03/07/20 05:03 Labs: Laboratory Last Values WBC 26.9 K/mm3 (4.5-11.0) H 03/07/20 05:03 RBC 3.50 M/mm3 (3.65-5.03) L 03/07/20 05:03 Hgb 8.3 gm/dl (10.1-14.3) L 03/07/20 05:03 Hct 26.6 % (30.3-42.9) L 03/07/20 05:03 MCV 76 fl (79-97) L 03/07/20 05:03 MCH 24 pg (28-32) L 03/07/20 05:03 MCHC 31 % (30-34) 03/07/20 05:03 RDW 21.3 % (13.2-15.2) H 03/07/20 05:03 Plt Count 470 K/mm3 (140-440) H 03/07/20 05:03 Lymph % (Auto) 3.3 % (13.4-35.0) L 03/04/20 04:05 [place] % (Auto) 6.7 % (0.0-7.3) 03/04/20 04:05 Eos % (Auto) 1.1 % (0.0-4.3) 03/04/20 04:05 Baso % (Auto) 0.3 % (0.0-1.8) 03/04/20 04:05 Lymph # (Auto) 1.0 K/mm3 (1.2-5.4) L 03/04/20 04:05 [place] # (Auto) 2.0 K/mm3 (0.0-0.8) H 03/04/20 04:05 Eos # (Auto) 0.3 K/mm3 (0.0-0.4) 03/04/20 04:05 Baso # (Auto) 0.1 K/mm3 (0.0-0.1) 03/04/20 04:05 Add Manual Diff Complete 03/06/20 08:54 Total Counted 100 03/06/20 08:54 Seg Neutrophils % 88.6 % (40.0-70.0) H 03/04/20 04:05 Seg Neuts % (Manual) 93.0 % (40.0-70.0) H 03/06/20 08:54 Band Neutrophils % 1.0 % 03/06/20 08:54 Lymphocytes % (Manual) 2.0 % (13.4-35.0) L 03/06/20 08:54 Reactive Lymphs % (Man) 0 % 03/06/20 08:54 Monocytes % (Manual) 1.0 % (0.0-7.3) 03/06/20 08:54 Eosinophils % (Manual) 2.0 % (0.0-4.3) 03/06/20 08:54 Basophils % (Manual) 0 % (0.0-1.8) 03/06/20 08:54 Metamyelocytes % 0 % 03/06/20 08:54 Myelocytes % 1.0 % 03/06/20 08:54 Promyelocytes % 0 % 03/06/20 08:54 Blast Cells % 0 % 03/06/20 08:54 Nucleated RBC % Not Reportable 03/06/20 08:54 Seg Neutrophils # 26.6 K/mm3 (1.8-7.7) H 03/04/20 04:05 Seg Neutrophils # Man 29.3 K/mm3 (1.8-7.7) H 03/06/20 08:54 Band Neutrophils # 0.3 K/mm3 03/06/20 08:54 Lymphocytes # (Manual) 0.6 K/mm3 (1.2-5.4) L 03/06/20 08:54 Abs React Lymphs (Man) 0.0 K/mm3 03/06/20 08:54 Monocytes # (Manual) 0.3 K/mm3 (0.0-0.8) 03/06/20 08:54 Eosinophils # (Manual) 0.6 K/mm3 (0.0-0.4) H 03/06/20 08:54 Basophils # (Manual) 0.0 K/mm3 (0.0-0.1) 03/06/20 08:54 Metamyelocytes # 0.0 K/mm3 03/06/20 08:54 Myelocytes # 0.3 K/mm3 03/06/20 08:54 Promyelocytes # 0.0 K/mm3 03/06/20 08:54 Blast Cells # 0.0 K/mm3 03/06/20 08:54 WBC Morphology Not Reportable 03/06/20 08:54 Hypersegmented Neuts Not Reportable 03/06/20 08:54 Hyposegmented Neuts Not Reportable 03/06/20 08:54 Hypogranular Neuts Not Reportable 03/06/20 08:54 Smudge Cells Not Reportable 03/06/20 08:54 Toxic Granulation Not Reportable 03/06/20 08:54 Toxic Vacuolation Not Reportable 03/06/20 08:54 Dohle Bodies Not Reportable 03/06/20 08:54 Pelger-Huet Anomaly Not Reportable 03/06/20 08:54 Maia Rods Not Reportable 03/06/20 08:54 Platelet Estimate Consistent w auto 03/06/20 08:54 Clumped Platelets Not Reportable 03/06/20 08:54 Plt Clumps, EDTA Not Reportable 03/06/20 08:54 Large Platelets Not Reportable 03/06/20 08:54 Giant Platelets Not Reportable 03/06/20 08:54 Platelet Satelliting Not Reportable 03/06/20 08:54 Plt Morphology Comment Not Reportable 03/06/20 08:54 RBC Morphology Not Reportable 03/06/20 08:54 Dimorphic RBCs Not Reportable 03/06/20 08:54 Polychromasia Not Reportable 03/06/20 08:54 Hypochromasia 1+ 03/06/20 08:54 Poikilocytosis Not Reportable 03/06/20 08:54 Anisocytosis Few 03/06/20 08:54 Microcytosis Few 03/06/20 08:54 Macrocytosis Not Reportable 03/06/20 08:54 Spherocytes Not Reportable 03/06/20 08:54 Pappenheimer Bodies Not Reportable 03/06/20 08:54 Sickle Cells Not Reportable 03/06/20 08:54 Target Cells Not Reportable 03/06/20 08:54 Tear Drop Cells Not Reportable 03/06/20 08:54 Ovalocytes Not Reportable 03/06/20 08:54 Helmet Cells Not Reportable 03/06/20 08:54 [place] Bodies Not Reportable 03/06/20 08:54 [place] Rings Not Reportable 03/06/20 08:54 [place] Cells Not Reportable 03/06/20 08:54 Bite Cells Not Reportable 03/06/20 08:54 Crenated Cell Not Reportable 03/06/20 08:54 Elliptocytes Not Reportable 03/06/20 08:54 Acanthocytes (Spur) Not Reportable 03/06/20 08:54 Rouleaux Not Reportable 03/06/20 08:54 Hemoglobin C Crystals Not Reportable 03/06/20 08:54 Schistocytes Not Reportable 03/06/20 08:54 Malaria parasites Not Reportable 03/06/20 08:54 Edgardo Bodies Not Reportable 03/06/20 08:54 Hem Pathologist Commnt No 03/06/20 08:54 PT 13.7 Sec. (12.2-14.9) 02/25/20 03:49 INR 1.03 (0.87-1.13) 02/25/20 03:49 ABG pH 7.380 (7.320-7.450) 03/06/20 04:41 POC ABG pCO2 46.4 mmHg (32.0-48.0) 03/06/20 04:41 ABG pCO2 43.1 mm Hg 03/05/20 05:04 POC ABG pO2 64.9 mmHg (83-108) L 03/06/20 04:41 ABG pO2 62.5 mm Hg (80.0-90.0) L 03/05/20 05:04 POC ABG HCO3 26.8 03/06/20 04:41 ABG HCO3 26.4 mmol/L (20.0-26.0) H 03/05/20 05:04 ABG O2 Saturation 92.1 % (95.0-99.0) L 03/05/20 05:04 ABG O2 Content 11.9 (0.0-44) 03/05/20 05:04 POC ABG Base Excess 1.4 03/06/20 04:41 ABG Base Excess 1.5 mmol/L (-2.0-3.0) 03/05/20 05:04 ABG Hemoglobin 9.9 (12.0-17.5) L 03/06/20 04:41 ABG Oxyhemoglobin 90.5 (94-98) L 03/06/20 04:41 ABG Carboxyhemoglobin 1.9 % (0.0-5.0) 03/05/20 05:04 ABG Methemoglobin 0.3 (0.0-1.5) 03/06/20 04:41 Oxyhemoglobin 89.9 % (95.0-99.0) L 03/05/20 05:04 Carboxyhemoglobin 1 (0.5-1.5) 03/06/20 04:41 FiO2 30.0 03/06/20 04:41 Sodium 141 mmol/L (137-145) 03/07/20 05:03 Potassium 3.8 mmol/L (3.6-5.0) 03/07/20 05:03 Chloride 94.8 mmol/L (98-107) L 03/07/20 05:03 Carbon Dioxide 28 mmol/L (22-30) 03/07/20 05:03 Anion Gap 22 mmol/L 03/07/20 05:03 BUN 52 mg/dL (7-17) H 03/07/20 05:03 Creatinine 6.3 mg/dL (0.6-1.2) H 03/07/20 05:03 Estimated GFR 9 ml/min 03/07/20 05:03 BUN/Creatinine Ratio 8 % 03/07/20 05:03 Glucose 106 mg/dL (65-100) H 03/07/20 05:03 POC Glucose 102 (70-105) 03/07/20 05:49 Lactic Acid 0.90 mmol/L (0.7-2.0) 02/27/20 19:33 Calcium 9.2 mg/dL (8.4-10.2) 03/07/20 05:03 Phosphorus 6.10 mg/dL (2.5-4.5) H 03/01/20 04:37 Magnesium 2.00 mg/dL (1.7-2.3) 03/07/20 05:03 Total Bilirubin 0.50 mg/dL (0.1-1.2) 03/07/20 05:03 Direct Bilirubin 0.6 mg/dL (0-0.2) H 03/05/20 06:00 Indirect Bilirubin 0.3 mg/dL 03/05/20 06:00 AST 40 units/L (5-40) 03/07/20 05:03 ALT 19 units/L (7-56) 03/07/20 05:03 Alkaline Phosphatase 132 units/L (35-129) H 03/07/20 05:03 C-Reactive Protein 36.50 mg/dL (0.00-1.30) H 03/01/20 11:06 Serum Total Protein 6.3 g/dL (6.1-8.1) 02/26/20 04:39 Total Protein 6.7 g/dL (6.3-8.2) 03/07/20 05:03 Albumin 2.5 g/dL (3.9-5) L 03/07/20 05:03 Albumin/Globulin Ratio 0.6 % 03/07/20 05:03 Uyrkj-6-Adqlpdcek 0.7 g/dL (0.2-0.3) H 02/26/20 04:39 Zogxm-8-Paimarxam 0.8 g/dL (0.5-0.9) 02/26/20 04:39 Beta Globulins 0.4 g/dL (0.2-0.5) 02/26/20 04:39 Gamma Globulins 1.2 g/dL (0.8-1.7) 02/26/20 04:39 Abnorm Protein Band 1 see below 02/26/20 04:39 PEP Interpretation see below H 02/26/20 04:39 Triglycerides 118 mg/dL (2-149) 02/26/20 04:39 Lipase 72 units/L (13-60) H 03/04/20 19:00 HCG, Qual Negative (Negative) 02/24/20 02:53 PTH Intact 911.3 pg/mL (15-65) H 02/26/20 08:15 Urine Color Yellow (Yellow) 02/24/20 Unknown Urine Turbidity Clear (Clear) 02/24/20 Unknown Urine pH 6.0 (5.0-7.0) 02/24/20 Unknown Ur Specific [place] 1.020 (1.003-1.030) 02/24/20 Unknown Urine Protein >500 mg/dL (Negative) 02/24/20 Unknown Urine Glucose (UA) 50 mg/dL (Negative) 02/24/20 Unknown Urine Ketones Neg mg/dL (Negative) 02/24/20 Unknown Urine Blood Lg (Negative) 02/24/20 Unknown Urine Nitrite Neg (Negative) 02/24/20 Unknown Urine Bilirubin Neg (Negative) 02/24/20 Unknown Urine Urobilinogen < 2.0 mg/dL (<2.0) 02/24/20 Unknown Ur Leukocyte Esterase Neg (Negative) 02/24/20 Unknown Urine WBC (Auto) 11.0 /HPF (0.0-6.0) H 02/24/20 Unknown Urine RBC (Auto) 149.0 /HPF (0.0-6.0) 02/24/20 Unknown U Epithel Cells (Auto) 5.0 /HPF (0-13.0) 02/24/20 Unknown Urine Bacteria (Auto) 1+ /HPF (Negative) 02/24/20 Unknown Urine Mucus Few /HPF 02/24/20 Unknown Urine Creatinine 161.0 mg/dL (0.1-20.0) H 02/25/20 22:55 Protein/Creatinin Ratio 0.93 02/25/20 22:55 Urine Total Protein 150 mg/dL (5-11.8) H 02/25/20 22:55 ZINA Screen Positive (Negative) H 02/26/20 04:39 Proteinase 3 (PR3) Ab <1.0 AI (<1.0) 02/26/20 04:39 Myeloperoxidase Ab <1.0 AI (<1.0) 02/26/20 04:39 Complement C3 153 mg/dL (83-193) 02/26/20 04:39 Complement C4 35 mg/dL (15-57) 02/26/20 04:39 Hepatitis A IgM Ab Non-reactive (NonReactive) 03/03/20 12:34 Hep Bs Antigen Non-reactive (Negative) 03/03/20 12:34 Hep B Core IgM Ab Non-reactive (NonReactive) 03/03/20 12:34 Hepatitis C Antibody Non-reactive (NonReactive) 03/03/20 12:34 Blood Type AB POSITIVE 03/01/20 18:30 Antibody Screen Negative 03/01/20 18:30 Crossmatch See Detail 03/01/20 18:30 Microbiology: Microbiology 03/06/20 18:18 Peripheral/Venous Blood Culture - Preliminary Culture in Progress - Diagnostic Impressions Diagnostic Impressions: Echocardiogram 02/26/20 09:11 Transthoracic Echocardiogram Indication: Cardiomegaly BP: 149/92 HR: 122 Conclusions *Global left ventricular systolic function is normal. *The estimated ejection fraction is 60-65%. *Moderate to severe concentric left ventricular hypertrophy is observed. *The left atrium is mild to moderately dilated. *The aortic valve leaflets are moderately thickened. *A mean gradient of 22.39 mmHg across the outflow tract is likely not due to but hyperdynamic flow and LVH. *There is trace tricuspid regurgitation. Findings Left Ventricle: The left ventricular chamber size is normal. Moderate to severe concentric left ventricular hypertrophy is observed. Global left ventricular systolic function is normal. The estimated ejection fraction is 60-65%. Left Atrium: The left atrium is mild to moderately dilated. Right Ventricle: The right ventricular cavity size is normal. The right ventricular global systolic function is normal. Right Atrium: The right atrial cavity size is normal. Aortic Valve: The aortic valve leaflets are moderately thickened. There is no evidence of aortic regurgitation. The mean gradient of the aortic valve is 22.39 mmHg. Mitral Valve: The mitral valve leaflets are mildly thickened. There is trace of mitral regurgitation. There is no evidence of mitral stenosis. Tricuspid Valve: There is trace tricuspid regurgitation. No pulmonary hypertension is noted. Pulmonic Valve: There is trace pulmonic regurgitation. Pericardium: There is no pericardial effusion. Aorta: There is no dilatation of the ascending aorta. There is no dilatation of the aortic root. Venous: The inferior vena cava appears normal in size. Measurements Chambers 2D Name Value Normal Range IVSd (2D) 1.8 cm (0.6 - 1.1) LVPWd (2D) 1.74 cm (0.6 - 1.1) LVIDd (2D) 4.57 cm (3.7 - 5.6) LVIDs (2D) 2.73 cm (2 - 3.8) LV FS (2D) 40.27 % - EF Teichholz (2D) 71.04 % - Ao root diameter (2D) 2.79 cm (2 - 3.7) Volumes/Mass Name Value Normal Range LA ESV SP 4CH (A/L) 54.18 ml - LA ESV SP 2CH (A/L) 61.84 ml - LA ESV BP (A/L) 58.1 ml - LA ESV BP (A/L) index 30.74 ml/m2 - LA ESV SP 4CH (MOD) 52.89 ml - LA ESV SP 2CH (MOD) 60.65 ml - LA ESV BP (MOD) 56.77 ml - LA ESV BP (MOD) index 30.04 ml/m2 - LV EDV SP 4CH (MOD) 164.2 ml - LV ESV SP 4CH (MOD) 58.04 ml - EF SP 4CH (MOD) 64.65 % - Diastolic/Systolic Function Name Value Normal Range MV E-wave Vmax 1.38 m/sec - MV deceleration time 92.78 msec - MV A-wave Vmax 1.44 m/sec - MV E:A ratio 0.95 ratio - Aortic Valve Name Value Normal Range AV Vmax 3.08 m/sec - AV VTI 36.74 cm - AV peak gradient 37.98 mmHg - AV mean gradient 22.39 mmHg - LVOT diameter 2.01 cm - LVOT Vmax 2.45 m/sec - LVOT VTI 29.85 cm - LVOT peak gradient 24.04 mmHg - LVOT mean gradient 11.11 mmHg - SV LVOT 94.73 ml - JADA (continuity Vmax) 2.52 cm2 - JADA (continuity VTI) 2.58 cm2 - Ascending Ao 2.64 cm - Mitral Valve Name Value Normal Range MV PHT 37.88 msec - MVA (PHT) 5.81 cm2 - Tricuspid Valve Name Value Normal Range IVC diameter 1.93 cm (1.2 - 2.3) Pulmonic Valve/Qp:Qs Name Value Normal Range PV Vmax 2.83 m/sec - PV VTI 45.88 cm - PV peak gradient 32.06 mmHg - PV mean gradient 16.11 mmHg - KS end-diastolic Vmax 0.81 m/sec - RVOT Vmax 1.82 m/sec - RVOT VTI 25.12 cm - RVOT peak gradient 13.3 mmHg - Franks/IV: Voiding Method Indwelling Catheter IV Catheter Type [Right VAS Cath Internal Jugular] IV Catheter Type [Left Upper INT / Saline Lock arm] IV Catheter Type [Right Upper INT / Saline Lock arm] IV Catheter Type [Right INT / Saline Lock Forearm] IV Catheter Type [Right Wrist] Peripheral IV IV Catheter Type [Right Peripheral IV Antecubital] Active Medications - Current Medications Current Medications: Generic Name Dose Route Start Last Admin Trade Name Freq PRN Reason Stop Dose Admin Acetaminophen 650 mg 02/26/20 16:23 03/06/20 17:40 Tylenol PO 650 mg Q4H PRN Administration Pain, Mild (1-3)/ Temp >100. Albuterol 2.5 mg 02/27/20 17:55 Proventil IH Q4HRT PRN Shortness Of Breath Albuterol/Ipratropium 1 ampul 02/28/20 12:17 03/07/20 08:15 Duoneb *Not For Prn Use* IH 1 ampul Q6HRT INDU Administration Amlodipine Besylate 10 mg 02/28/20 10:00 03/06/20 10:00 Amlodipine PO Not Given QDAY INDU Lipase/Protease/Amylase 1 each 03/01/20 08:[address] 10,500 Unit FEEDTUBE PRN PRN For Clogged Feeding Tube Dextrose 50 ml 02/29/20 08:00 03/01/20 00:20 D50w (25gm) Syringe IV 10 ml Q30MIN PRN Administration HYPOGLYCEMIA Protocol Fentanyl 50 mcg 02/29/20 15:35 03/04/20 20:35 Sublimaze IV 50 mcg Q10MIN PRN Administration ANALGESIA Heparin Sodium (Porcine) 5,000 unit 02/24/20 14:00 03/07/20 06:04 Heparin SUB-Q 5,000 unit Q8HR INDU Administration Hydralazine HCl 25 mg 03/04/20 14:00 03/07/20 06:06 Apresoline PO 25 mg Q8HR INDU Administration Hydrophilic Ointment 1 applic 02/29/20 15:35 Vaseline Lip Therapy TP Q2HR PRN Dry Lips Fentanyl Citrate 2,000 mcg in 100 mls @ 4.55 mls/hr 02/29/20 16:00 03/06/20 21:45 Fentanyl Drip Premix IV 2 mcg/kg/hr TITR INDU 9.1 mls/hr Administration Protocol 1 MCG/KG/HR MEROPENEM/NS 1 GRAM/100 ML 1 gram in 100 mls @ 100 mls/hr 03/03/20 18:00 03/06/20 18:35 Merrem/Ns 1 Gram/100 Ml IV 100 mls/hr QPM INDU Administration Protocol Sodium Chloride 100 mls @ 999 mls/hr 03/06/20 13:00 Nacl 0.9% IV NIKOLAY PRN Hypotension Labetalol HCl 10 mg 02/28/20 09:00 03/05/20 04:10 Labetalol IV 10 mg Q4H PRN Administration Hypertension Lansoprazole 30 mg 03/06/20 10:00 03/06/20 10:29 Prevacid Solutab FEEDTUBE 30 mg QDAY INDU Administration Lorazepam 4 mg 03/06/20 11:00 03/07/20 06:18 Ativan IV 4 mg Q4H PRN Administration AGITATION Metoprolol Tartrate 25 mg 02/28/20 10:00 03/06/20 21:14 Metoprolol PO 25 mg BID INDU Administration Multi-Ingred Cream/Lotion/Oil/Oint 1 applic 02/29/20 15:35 Artificial Tears Ophth Oint OU Q4HR PRN Dry Eye(s) Ondansetron HCl 4 mg 02/24/20 06:45 02/25/20 23:33 Zofran IV 4 mg Q8H PRN Administration Nausea And Vomiting Quetiapine Fumarate 100 mg 03/06/20 10:00 03/06/20 10:28 Seroquel PO 100 mg QAM INDU Administration Quetiapine Fumarate 200 mg 03/06/20 22:00 03/06/20 21:13 Seroquel PO 200 mg QHS INDU Administration Scopolamine 1 each 03/04/20 16:00 03/04/20 15:58 Transderm-Scop TD 1 each Q3D INDU Administration Simple Syrup 15 ml 03/01/20 08:46 Simple Syrup FEEDTUBE PRN PRN Hypoglycemia Simple Syrup 30 ml 03/01/20 08:46 Simple Syrup FEEDTUBE PRN PRN Hypoglycemia Sodium Bicarbonate 325 mg 03/01/20 08:46 Sodium Bicarbonate FEEDTUBE PRN PRN For Clogged Feeding Tube Sodium Chloride 10 ml 02/24/20 10:00 03/06/20 21:22 Sodium Chloride Flush Syringe 10 Ml IV 10 ml BID INDU Administration Sodium Chloride 10 ml 02/24/20 06:45 Sodium Chloride Flush Syringe 10 Ml IV PRN PRN LINE FLUSH Tamsulosin HCl 0.4 mg 03/01/20 17:00 03/06/20 10:29 Flomax PO 0.4 mg QDAY INDU Administration Nutrition/Malnutrition Assess - Dietary Evaluation Nutrition/Malnutrition Findings: Nutrition Notes Start: 02/24/20 13:42 Freq: Status: Active Protocol: Document 03/06/20 13:32 [email or web address] (Rec: 03/06/20 13:41 [email or web address]) Co-Sign 03/06/20 13:32 MK Nutrition Notes Initial or Follow up Reassessment Current Diagnosis Acute Kidney Injury,Sepsis, Hypertension,Respiratory Failure,Hyperlipidemia Other Pertinent Diagnosis Acute pancreatitis, HD Current Diet Nepro 1.8 at 35ml/hr Labs/Tests BUN 70 Cr 7.1 BG 113 Pertinent Medications Reviewed Height 5 ft 1 in Weight 91 kg [place] Body Weight (kg) 47.72 BMI 37.9 Weight Status Obese Subjective/Other Information F/U for stable TF. Pt TF running at goal rate and tolerating. Percent of energy/protein needs met: 100%/70% Burn Absent Trauma Absent GI Symptoms None Current % PO Negligible Minimum of two criteria No Fluid Accumulation Moderate to Severe (severe) #2 Nutrition Diagnosis Inadequate oral intake Diagnosis Progress(for reassessment Continues documentation) #1 Nutrition Diagnosis Food and nutrition-related knowledge deficit Diagnosis Progress(for reassessment Continues documentation) Is patient on ventilator? Yes Is Patient Ambulatory and/or Out of Bed No REE-([place]-St. Jeor-confined to bed) 1823.604 Kcal/Kg value to use for calculation 16 Approximate Energy Requirements Using 1456 kcal/Kg Calculation Used for Recommendations Kcal/kg Additional Notes Pro: 96g (>2g/kg IBW) Fluid: 1ml/kcal Nutrition Intervention Change Diet Order: Continue TF Nutrition Support: Nepro 1.8 at 35ml/hr Flush 150ml q4h Kcal 1,512 Protein (gm) 68 Fluid (mL) 611 Goal #1 TF tolerance Goal #2 Meet at least 80% of energy and protein needs via TF Anticipated Discharge Needs: Undetermined at this time Follow-Up By: 03/11/20 Additional Comments F/U stable TF
[2020-03-07] MEDS: fentaNYL DRIP Premix 2,000 MCG/100 ML BAG IV SCH ×2 (08:45→19:22)
[2020-03-07 11:00] LABS: Anisocytosis 1+; Band Neutrophils # (Manual) 0.5 K/mm3; Eosinophils % (Manual) 0 % (0.0-4.3); Hypochromasia 1+; Myelocytes # (Manual) 0.3 K/mm3; Total Cells Counted 100
[2020-03-07 11:01] LABS: Platelet Estimate Consistent w Auto
[2020-03-07] MEDS: METOPROLOL TARTRATE 25 MG TAB PO SCH ×2 (11:52→21:28)
[2020-03-07] MEDS: amLODIPine 10 MG TAB PO SCH (11:53)
[2020-03-07] MEDS: TAMSULOSIN 0.4 MG CAP PO SCH (11:53)
[2020-03-07] MEDS: QUEtiapine 100 MG TAB PO SCH (11:53)
[2020-03-07] MEDS: LANSOPRAZOLE 30 MG SOLUTAB FEEDTUBE SCH (11:53)
[2020-03-07] MEDS: SCOPOLAMINE TRANSDERMAL PATCH 72 HR TD SCH (11:54)
--- NOTE | 2020-03-07 15:24 | Progress Note ---
Assessment and Plan Acute Hypoxemic Respiratory Failure on MVS Severe Sepsis Acute Toxic-Metabolic Encephalopathy Hypertensive urgency Morbid obesity Acute pancreatitis, abdominal pain Medical non compliance Oropharyngeal Dysphagia - continue scopolamine patch - continue HD/UF for toxin and volume clearance - CT abd/pelvis with oral contrast prn - continue care as below otherwise; - continue daily SAT and SBT assessment as tolerated - continue fentanyl for sedation +/- propofol - accuchecks with glycemic control per SSI (While critically ill target blood glucose of 140-180 mg/dL; avoid hypoglycemia) - sedation prn for target RASS -1 to -2 - continue to wean supplemental oxygen for target O2 sat's > 90% acutely - VAP bundle addressed - continue lung protective strategies - continue bronchodilators with pulmonary hygiene per RT - wean per pulmonary driven protocols otherwise - continue enteral nutritiuon at goal rate as tolerated - completed AB's (Zosyn) per ID rec's - JUANIS per elementary supervisor - Evaluation for sleep apnea as an outpatient - VTE prophylaxis - prn Analgesia per CPOT score - avoid nephrotoxins, renally dose all medications - Maintenance of sleep-wake cycle, avoid delirium - G.I. & VTE prophylaxis - PT/OT/ROM exercises - mobility protocols for pressure ulcer prophylaxis - Monitor hemodynamics closely - continue other care per attending / other consultants - discharge planning ongoing concurrently ..... re-evaluate in am & prn CONDITION: CRITICAL PROGNOSIS: GUARDED CODE STATUS: FULL CODE The high probability of a clinically significant, sudden or life-threatening deterioration of the [respiratory, cardiovascular & GI] system(s) required my full and direct attention, intervention and personal management. The aggregate critical care time was [32] minutes without overlap. Time includes spent on; [x] Data Review and interpretation [x] Patient assessment and monitoring of vital signs [x] Documentation [x] Medication orders and management Subjective Date of service: 03/07/20 Principal diagnosis: HTNsive urgency; Morbid obesity; Ac. pancreatitis; Abdominal pain Interval history: Patient is seen today for: Hypertensive urgency; Morbid obesity; Acute p ancreatitis; abdominal pain; Medical non compliance; Acute Toxic Metabolic Encephalopathy Seen and examined at bedside; 24hour events reviewed; nursing and respiratory care staff consulted; no adverse overnight events reported to me; resting peacefully in bed; remains on MVS; tolerating HD/UF; follows simple p[rompts; tolerating SBT's but tenuously; No N/V/F/C Objective Vital Signs - 12hr 03/07/20 03/07/20 03/07/20 03:30 03:39 04:01 Temperature 99.7 F H Pulse Rate 105 H 101 H 112 H Pulse Rate [ Anterior Bilateral Throughout] Pulse Rate [ From Monitor] Respiratory 20 21 Rate Respiratory Rate [Anterior Bilateral Throughout] Blood Pressure 142/94 142/94 166/101 O2 Sat by Pulse 95 96 95 Oximetry O2 Sat by Pulse Oximetry [ Anterior Bilateral Throughout] 03/07/20 03/07/20 03/07/20 04:05 04:30 05:00 Temperature Pulse Rate 112 H 104 H 108 H Pulse Rate [ Anterior Bilateral Throughout] Pulse Rate [ From Monitor] Respiratory 21 20 21 Rate Respiratory Rate [Anterior Bilateral Throughout] Blood Pressure 126/76 151/92 O2 Sat by Pulse 97 97 96 Oximetry O2 Sat by Pulse Oximetry [ Anterior Bilateral Throughout] 03/07/20 03/07/20 03/07/20 05:30 05:50 06:00 Temperature Pulse Rate 107 H 107 H 103 H Pulse Rate [ Anterior Bilateral Throughout] Pulse Rate [ From Monitor] Respiratory 20 20 20 Rate Respiratory Rate [Anterior Bilateral Throughout] Blood Pressure 142/92 127/78 O2 Sat by Pulse 96 97 96 Oximetry O2 Sat by Pulse Oximetry [ Anterior Bilateral Throughout] 03/07/20 03/07/20 03/07/20 06:06 06:30 07:00 Temperature Pulse Rate 114 H 109 H 104 H Pulse Rate [ Anterior Bilateral Throughout] Pulse Rate [ From Monitor] Respiratory 21 20 Rate Respiratory Rate [Anterior Bilateral Throughout] Blood Pressure 127/78 139/88 126/81 O2 Sat by Pulse 96 97 Oximetry O2 Sat by Pulse Oximetry [ Anterior Bilateral Throughout] 03/07/20 03/07/20 03/07/20 07:30 08:00 08:08 Temperature 100.0 F H Pulse Rate 103 H 103 H 103 H Pulse Rate [ Anterior Bilateral Throughout] Pulse Rate [ 114 H From Monitor] Respiratory 20 20 Rate Respiratory Rate [Anterior Bilateral Throughout] Blood Pressure 127/78 121/75 121/75 O2 Sat by Pulse 97 97 96 Oximetry O2 Sat by Pulse Oximetry [ Anterior Bilateral Throughout] 03/07/20 03/07/20 03/07/20 08:15 08:30 08:35 Temperature 100.0 F H Pulse Rate 115 H 101 H Pulse Rate [ 84 Anterior Bilateral Throughout] Pulse Rate [ From Monitor] Respiratory 26 H 22 Rate Respiratory 27 H Rate [Anterior Bilateral Throughout] Blood Pressure 144/84 140/81 O2 Sat by Pulse 97 Oximetry O2 Sat by Pulse 96 Oximetry [ Anterior Bilateral Throughout] 03/07/20 03/07/20 03/07/20 08:40 08:45 09:00 Temperature Pulse Rate 114 H 121 H 112 H Pulse Rate [ Anterior Bilateral Throughout] Pulse Rate [ From Monitor] Respiratory 22 Rate Respiratory Rate [Anterior Bilateral Throughout] Blood Pressure 144/84 174/97 128/84 O2 Sat by Pulse 96 Oximetry O2 Sat by Pulse Oximetry [ Anterior Bilateral Throughout] 03/07/20 03/07/20 03/07/20 09:15 09:30 09:45 Temperature Pulse Rate 107 H 107 H 107 H Pulse Rate [ Anterior Bilateral Throughout] Pulse Rate [ From Monitor] Respiratory 24 Rate Respiratory Rate [Anterior Bilateral Throughout] Blood Pressure 128/76 140/84 132/85 O2 Sat by Pulse 96 Oximetry O2 Sat by Pulse Oximetry [ Anterior Bilateral Throughout] 03/07/20 03/07/20 03/07/20 10:00 10:15 10:30 Temperature Pulse Rate 108 H 108 H 109 H Pulse Rate [ Anterior Bilateral Throughout] Pulse Rate [ From Monitor] Respiratory 29 H 24 Rate Respiratory Rate [Anterior Bilateral Throughout] Blood Pressure 129/83 137/86 126/81 O2 Sat by Pulse 96 97 Oximetry O2 Sat by Pulse Oximetry [ Anterior Bilateral Throughout] 03/07/20 03/07/20 03/07/20 10:45 11:00 11:15 Temperature Pulse Rate 109 H 109 H 110 H Pulse Rate [ Anterior Bilateral Throughout] Pulse Rate [ From Monitor] Respiratory 24 Rate Respiratory Rate [Anterior Bilateral Throughout] Blood Pressure 128/86 136/85 149/90 O2 Sat by Pulse 97 Oximetry O2 Sat by Pulse Oximetry [ Anterior Bilateral Throughout] 03/07/20 03/07/20 03/07/20 11:30 11:31 11:40 Temperature Pulse Rate 110 H 110 H 120 H Pulse Rate [ Anterior Bilateral Throughout] Pulse Rate [ From Monitor] Respiratory 30 H Rate Respiratory Rate [Anterior Bilateral Throughout] Blood Pressure 134/87 146/110 O2 Sat by Pulse 97 Oximetry O2 Sat by Pulse Oximetry [ Anterior Bilateral Throughout] 03/07/20 03/07/20 03/07/20 11:45 11:50 11:52 Temperature Pulse Rate 114 H 106 H 112 H Pulse Rate [ Anterior Bilateral Throughout] Pulse Rate [ From Monitor] Respiratory 30 H 23 Rate Respiratory Rate [Anterior Bilateral Throughout] Blood Pressure 137/91 137/91 137/91 O2 Sat by Pulse 97 Oximetry O2 Sat by Pulse 99 Oximetry [ Anterior Bilateral Throughout] 03/07/20 03/07/20 03/07/20 11:53 12:00 12:30 Temperature 99.8 F H Pulse Rate 113 H 114 H 102 H Pulse Rate [ Anterior Bilateral Throughout] Pulse Rate [ 108 H From Monitor] Respiratory 29 H 27 H Rate Respiratory Rate [Anterior Bilateral Throughout] Blood Pressure 137/91 140/94 138/80 O2 Sat by Pulse 97 97 Oximetry O2 Sat by Pulse Oximetry [ Anterior Bilateral Throughout] 03/07/20 03/07/20 03/07/20 13:00 13:30 14:00 Temperature Pulse Rate 101 H 108 H 104 H Pulse Rate [ Anterior Bilateral Throughout] Pulse Rate [ From Monitor] Respiratory 26 H 34 H 29 H Rate Respiratory Rate [Anterior Bilateral Throughout] Blood Pressure 116/86 122/72 114/70 O2 Sat by Pulse 98 95 96 Oximetry O2 Sat by Pulse Oximetry [ Anterior Bilateral Throughout] 03/07/20 03/07/20 03/07/20 14:30 14:47 15:00 Temperature Pulse Rate 104 H 105 H Pulse Rate [ 106 H Anterior Bilateral Throughout] Pulse Rate [ From Monitor] Respiratory 32 H 29 H Rate Respiratory 30 H Rate [Anterior Bilateral Throughout] Blood Pressure 118/70 128/75 O2 Sat by Pulse 96 96 Oximetry O2 Sat by Pulse Oximetry [ Anterior Bilateral Throughout] Constitutional: no acute distress, other (Obese female with mildly increased respiratory effort at rest on MVS) Eyes: non-icteric ENT: oropharynx moist, other (ETT 24 cm TY) Neck: supple, no lymphadenopathy, no JVD Effort: normal Ascultation: Bilateral: diminished breath sounds, rales Percussion: Bilateral: not dull Cardiovascular: regular rate and rhythm, other (S1,S2) Gastrointestinal: normoactive bowel sounds, hypoactive bowel sounds, soft, non- tender, other (distended but soft) Integumentary: normal Extremities: no cyanosis, no edema, pink and warm, pulses normal Neurologic: normal mental status, non-focal exam (grossly), pupils equal and round, CN II-XII normal, motor strength normal and Psychiatric: mood appropriate, affect normal CBC and BMP: 03/07/20 05:03 03/08/20 04:50 ABG, PT/INR, D-dimer: ABG ABG pH 7.380 (7.320-7.450) 03/06/20 04:41 POC ABG pCO2 46.4 mmHg (32.0-48.0) 03/06/20 04:41 ABG pCO2 43.1 mm Hg 03/05/20 05:04 POC ABG pO2 64.9 mmHg (83-108) L 03/06/20 04:41 ABG pO2 62.5 mm Hg (80.0-90.0) L 03/05/20 05:04 POC ABG HCO3 26.8 03/06/20 04:41 ABG O2 Saturation 92.1 % (95.0-99.0) L 03/05/20 05:04 PT/INR, D-dimer PT 13.7 Sec. (12.2-14.9) 02/25/20 03:49 INR 1.03 (0.87-1.13) 02/25/20 03:49 Abnormal lab findings: Abnormal Labs 02/24/20 02/24/20 02/24/20 02:53 02:53 Unknown WBC 12.7 H Hgb 10.0 L RBC Hct MCV 70 L MCH 22 L RDW 17.9 H Plt Count 458 H Lymph % (Auto) 8.9 L Lymph # 1.1 L [place] # Lymph # (Auto) [place] # (Auto) Seg Neutrophils % 84.2 H Seg Neutrophils # 10.7 H Seg Neuts % (Manual) Lymphocytes % (Manual) Nucleated RBC % Seg Neutrophils # Man Lymphocytes # (Manual) Monocytes # (Manual) Eosinophils # (Manual) Basophils # (Manual) ABG pH POC ABG pCO2 POC ABG pO2 ABG pO2 ABG HCO3 ABG O2 Saturation ABG Base Excess ABG Hemoglobin ABG Oxyhemoglobin Oxyhemoglobin Sodium Potassium Chloride Carbon Dioxide BUN 27 H Creatinine 1.7 H Glucose 118 H POC Glucose Calcium Phosphorus Magnesium Direct Bilirubin Alkaline Phosphatase Albumin C-Reactive Protein Lniao-1-Oimbvahfy PEP Interpretation Lipase 232 H PTH Intact Urine WBC (Auto) 11.0 H Urine Creatinine Urine Total Protein ZINA Screen Crossmatch 02/25/20 02/25/20 02/25/20 00:03 03:49 03:49 WBC 29.1 H Hgb 9.4 L RBC Hct 30.2 L MCV 71 L MCH 22 L RDW 18.3 H Plt Count 525 H Lymph % (Auto) 3.4 L Lymph # 1.0 L [place] # 1.0 H Lymph # (Auto) [place] # (Auto) Seg Neutrophils % Seg Neutrophils # 26.4 H Seg Neuts % (Manual) Lymphocytes % (Manual) Nucleated RBC % Seg Neutrophils # Man Lymphocytes # (Manual) Monocytes # (Manual) Eosinophils # (Manual) Basophils # (Manual) ABG pH POC ABG pCO2 POC ABG pO2 ABG pO2 ABG HCO3 ABG O2 Saturation ABG Base Excess ABG Hemoglobin ABG Oxyhemoglobin Oxyhemoglobin Sodium Potassium Chloride Carbon Dioxide BUN Creatinine Glucose POC Glucose 126 H Calcium Phosphorus Magnesium Direct Bilirubin Alkaline Phosphatase Albumin C-Reactive Protein Uuriz-8-Nzrnxyzni PEP Interpretation Lipase 1486 H PTH Intact Urine WBC (Auto) Urine Creatinine Urine Total Protein ZINA Screen Crossmatch 02/25/20 02/25/20 02/25/20 03:49 05:55 22:55 WBC Hgb RBC Hct MCV MCH RDW Plt Count Lymph % (Auto) Lymph # [place] # Lymph # (Auto) [place] # (Auto) Seg Neutrophils % Seg Neutrophils # Seg Neuts % (Manual) Lymphocytes % (Manual) Nucleated RBC % Seg Neutrophils # Man Lymphocytes # (Manual) Monocytes # (Manual) Eosinophils # (Manual) Basophils # (Manual) ABG pH POC ABG pCO2 POC ABG pO2 ABG pO2 ABG HCO3 ABG O2 Saturation ABG Base Excess ABG Hemoglobin ABG Oxyhemoglobin Oxyhemoglobin Sodium 136 L Potassium Chloride 97.9 L Carbon Dioxide 21 L BUN 39 H Creatinine 3.0 H D Glucose 118 H POC Glucose 124 H Calcium Phosphorus Magnesium Direct Bilirubin Alkaline Phosphatase Albumin 3.6 L C-Reactive Protein Lhpkm-9-Ywzdugnju PEP Interpretation Lipase PTH Intact Urine WBC (Auto) Urine Creatinine 161.0 H Urine Total Protein 150 H ZINA Screen Crossmatch 02/26/20 02/26/20 02/26/20 04:39 04:39 04:39 WBC 30.3 H Hgb 9.1 L RBC Hct 29.8 L MCV 71 L MCH 22 L RDW 18.2 H Plt Count 530 H Lymph % (Auto) Lymph # [place] # Lymph # (Auto) [place] # (Auto) Seg Neutrophils % Seg Neutrophils # Seg Neuts % (Manual) Lymphocytes % (Manual) Nucleated RBC % Seg Neutrophils # Man Lymphocytes # (Manual) Monocytes # (Manual) Eosinophils # (Manual) Basophils # (Manual) ABG pH POC ABG pCO2 POC ABG pO2 ABG pO2 ABG HCO3 ABG O2 Saturation ABG Base Excess ABG Hemoglobin ABG Oxyhemoglobin Oxyhemoglobin Sodium Potassium Chloride Carbon Dioxide 19 L BUN 44 H Creatinine 3.1 H Glucose 106 H POC Glucose Calcium 8.1 L Phosphorus Magnesium Direct Bilirubin Alkaline Phosphatase Albumin C-Reactive Protein Tqaqs-4-Zbnopyaeg PEP Interpretation Lipase 540 H PTH Intact Urine WBC (Auto) Urine Creatinine Urine Total Protein ZINA Screen Positive H Crossmatch 02/26/20 02/26/20 02/26/20 04:39 08:15 12:14 WBC Hgb RBC Hct MCV MCH RDW Plt Count Lymph % (Auto) Lymph # [place] # Lymph # (Auto) [place] # (Auto) Seg Neutrophils % Seg Neutrophils # Seg Neuts % (Manual) Lymphocytes % (Manual) Nucleated RBC % Seg Neutrophils # Man Lymphocytes # (Manual) Monocytes # (Manual) Eosinophils # (Manual) Basophils # (Manual) ABG pH POC ABG pCO2 POC ABG pO2 ABG pO2 ABG HCO3 ABG O2 Saturation ABG Base Excess ABG Hemoglobin ABG Oxyhemoglobin Oxyhemoglobin Sodium Potassium Chloride Carbon Dioxide BUN Creatinine Glucose POC Glucose 112 H Calcium Phosphorus Magnesium Direct Bilirubin Alkaline Phosphatase Albumin 2.8 L C-Reactive Protein Cryzl-1-Kjpuyythc 0.7 H PEP Interpretation see below H Lipase PTH Intact 911.3 H Urine WBC (Auto) Urine Creatinine Urine Total Protein ZINA Screen Crossmatch 02/27/20 02/27/20 02/27/20 04:18 04:18 04:18 WBC 26.8 H Hgb 7.9 L RBC Hct 26.3 L MCV 70 L MCH 21 L RDW 18.0 H Plt Count 513 H Lymph % (Auto) Lymph # [place] # Lymph # (Auto) [place] # (Auto) Seg Neutrophils % Seg Neutrophils # Seg Neuts % (Manual) Lymphocytes % (Manual) Nucleated RBC % Seg Neutrophils # Man Lymphocytes # (Manual) Monocytes # (Manual) Eosinophils # (Manual) Basophils # (Manual) ABG pH POC ABG pCO2 POC ABG pO2 ABG pO2 ABG HCO3 ABG O2 Saturation ABG Base Excess ABG Hemoglobin ABG Oxyhemoglobin Oxyhemoglobin Sodium 135 L 135 L Potassium Chloride Carbon Dioxide 15 L 16 L BUN 50 H 51 H Creatinine 3.4 H 3.4 H Glucose POC Glucose Calcium 7.4 L 7.5 L Phosphorus Magnesium Direct Bilirubin Alkaline Phosphatase Albumin 3.0 L C-Reactive Protein 37.30 H Eyxwp-9-Dsozerrmr PEP Interpretation Lipase 177 H PTH Intact Urine WBC (Auto) Urine Creatinine Urine Total Protein ZINA Screen Crossmatch 02/27/20 02/28/20 02/28/20 16:57 05:07 05:07 WBC Hgb RBC Hct MCV MCH RDW Plt Count Lymph % (Auto) Lymph # [place] # Lymph # (Auto) [place] # (Auto) Seg Neutrophils % Seg Neutrophils # Seg Neuts % (Manual) Lymphocytes % (Manual) Nucleated RBC % Seg Neutrophils # Man Lymphocytes # (Manual) Monocytes # (Manual) Eosinophils # (Manual) Basophils # (Manual) ABG pH 7.336 L POC ABG pCO2 POC ABG pO2 ABG pO2 57.0 L ABG HCO3 16.4 L ABG O2 Saturation 88.2 L ABG Base Excess -8.4 L ABG Hemoglobin 10.4 L ABG Oxyhemoglobin Oxyhemoglobin 85.7 L Sodium Potassium Chloride Carbon Dioxide 14 L BUN 60 H Creatinine 4.2 H Glucose POC Glucose Calcium 8.2 L Phosphorus Magnesium Direct Bilirubin Alkaline Phosphatase Albumin C-Reactive Protein Vctlj-7-Ydrdfxqhh PEP Interpretation Lipase 155 H PTH Intact Urine WBC (Auto) Urine Creatinine Urine Total Protein ZINA Screen Crossmatch 02/28/20 02/28/20 02/28/20 05:56 11:05 11:05 WBC Hgb RBC Hct MCV MCH RDW Plt Count Lymph % (Auto) Lymph # [place] # Lymph # (Auto) [place] # (Auto) Seg Neutrophils % Seg Neutrophils # Seg Neuts % (Manual) Lymphocytes % (Manual) Nucleated RBC % Seg Neutrophils # Man Lymphocytes # (Manual) Monocytes # (Manual) Eosinophils # (Manual) Basophils # (Manual) ABG pH 7.317 L POC ABG pCO2 POC ABG pO2 76.2 L ABG pO2 ABG HCO3 16.4 L ABG O2 Saturation ABG Base Excess -8.9 L ABG Hemoglobin 6.6 L 7.6 L ABG Oxyhemoglobin Oxyhemoglobin 94.6 L Sodium Potassium Chloride Carbon Dioxide BUN Creatinine Glucose POC Glucose 115 H Calcium Phosphorus Magnesium Direct Bilirubin Alkaline Phosphatase Albumin C-Reactive Protein Ebtiq-1-Hbboxvemt PEP Interpretation Lipase PTH Intact Urine WBC (Auto) Urine Creatinine Urine Total Protein ZINA Screen Crossmatch 02/28/20 02/28/20 02/29/20 17:39 19:39 05:43 WBC Hgb RBC Hct MCV MCH RDW Plt Count Lymph % (Auto) Lymph # [place] # Lymph # (Auto) [place] # (Auto) Seg Neutrophils % Seg Neutrophils # Seg Neuts % (Manual) Lymphocytes % (Manual) Nucleated RBC % Seg Neutrophils # Man Lymphocytes # (Manual) Monocytes # (Manual) Eosinophils # (Manual) Basophils # (Manual) ABG pH 7.300 L POC ABG pCO2 POC ABG pO2 ABG pO2 117.5 H ABG HCO3 15.0 L ABG O2 Saturation ABG Base Excess -10.5 L ABG Hemoglobin 6.4 L ABG Oxyhemoglobin Oxyhemoglobin Sodium Potassium Chloride Carbon Dioxide BUN Creatinine Glucose POC Glucose 120 H 66 L Calcium Phosphorus Magnesium Direct Bilirubin Alkaline Phosphatase Albumin C-Reactive Protein Cutrn-7-Sthbjjqhm PEP Interpretation Lipase PTH Intact Urine WBC (Auto) Urine Creatinine Urine Total Protein ZINA Screen Crossmatch 02/29/20 02/29/20 02/29/20 05:45 12:04 12:31 WBC Hgb RBC Hct MCV MCH RDW Plt Count Lymph % (Auto) Lymph # [place] # Lymph # (Auto) [place] # (Auto) Seg Neutrophils % Seg Neutrophils # Seg Neuts % (Manual) Lymphocytes % (Manual) Nucleated RBC % Seg Neutrophils # Man Lymphocytes # (Manual) Monocytes # (Manual) Eosinophils # (Manual) Basophils # (Manual) ABG pH 7.212 L POC ABG pCO2 POC ABG pO2 ABG pO2 ABG HCO3 ABG O2 Saturation ABG Base Excess ABG Hemoglobin 7.4 L ABG Oxyhemoglobin Oxyhemoglobin Sodium Potassium Chloride Carbon Dioxide BUN Creatinine Glucose POC Glucose 65 L 64 L Calcium Phosphorus Magnesium Direct Bilirubin Alkaline Phosphatase Albumin C-Reactive Protein Amiyi-8-Odqzorxwr PEP Interpretation Lipase PTH Intact Urine WBC (Auto) Urine Creatinine Urine Total Protein ZINA Screen Crossmatch 02/29/20 02/29/20 02/29/20 14:22 14:22 18:20 WBC Hgb RBC Hct MCV MCH RDW Plt Count Lymph % (Auto) Lymph # [place] # Lymph # (Auto) [place] # (Auto) Seg Neutrophils % Seg Neutrophils # Seg Neuts % (Manual) Lymphocytes % (Manual) Nucleated RBC % Seg Neutrophils # Man Lymphocytes # (Manual) Monocytes # (Manual) Eosinophils # (Manual) Basophils # (Manual) ABG pH POC ABG pCO2 POC ABG pO2 ABG pO2 ABG HCO3 ABG O2 Saturation ABG Base Excess ABG Hemoglobin ABG Oxyhemoglobin Oxyhemoglobin Sodium Potassium Chloride Carbon Dioxide 16 L BUN 77 H Creatinine 4.7 H Glucose POC Glucose 66 L Calcium Phosphorus 7.50 H Magnesium 2.60 H Direct Bilirubin Alkaline Phosphatase Albumin 2.3 L C-Reactive Protein Glsiw-7-Mddlbqepg PEP Interpretation Lipase PTH Intact Urine WBC (Auto) Urine Creatinine Urine Total Protein ZINA Screen Crossmatch 02/29/20 03/01/20 03/01/20 18:24 04:05 04:37 WBC Hgb RBC Hct MCV MCH RDW Plt Count Lymph % (Auto) Lymph # [place] # Lymph # (Auto) [place] # (Auto) Seg Neutrophils % Seg Neutrophils # Seg Neuts % (Manual) Lymphocytes % (Manual) Nucleated RBC % Seg Neutrophils # Man Lymphocytes # (Manual) Monocytes # (Manual) Eosinophils # (Manual) Basophils # (Manual) ABG pH 7.271 L 7.347 L POC ABG pCO2 POC ABG pO2 ABG pO2 133.5 H ABG HCO3 15.8 L ABG O2 Saturation ABG Base Excess -8.9 L ABG Hemoglobin 7.2 L 7.6 L ABG Oxyhemoglobin 93.4 L Oxyhemoglobin Sodium Potassium Chloride 107.6 H Carbon Dioxide 14 L BUN 83 H Creatinine 5.6 H Glucose POC Glucose Calcium Phosphorus 6.10 H Magnesium 2.40 H Direct Bilirubin Alkaline Phosphatase Albumin C-Reactive Protein Jjxlt-8-Rrqempasq PEP Interpretation Lipase PTH Intact Urine WBC (Auto) Urine Creatinine Urine Total Protein ZINA Screen Crossmatch 03/01/20 03/01/20 03/01/20 11:06 16:22 18:12 WBC 30.5 H Hgb 6.2 L RBC 2.92 L Hct 20.8 L MCV 71 L MCH 21 L RDW 18.2 H Plt Count 560 H Lymph % (Auto) Lymph # [place] # Lymph # (Auto) [place] # (Auto) Seg Neutrophils % Seg Neutrophils # Seg Neuts % (Manual) 79.0 H Lymphocytes % (Manual) 3.0 L Nucleated RBC % Seg Neutrophils # Man 24.1 H Lymphocytes # (Manual) 0.9 L Monocytes # (Manual) 2.1 H Eosinophils # (Manual) Basophils # (Manual) ABG pH POC ABG pCO2 POC ABG pO2 ABG pO2 ABG HCO3 ABG O2 Saturation ABG Base Excess ABG Hemoglobin ABG Oxyhemoglobin Oxyhemoglobin Sodium Potassium 5.3 H D Chloride Carbon Dioxide 11 L BUN 77 H Creatinine 5.0 H Glucose 54 L POC Glucose 121 H Calcium Phosphorus Magnesium Direct Bilirubin Alkaline Phosphatase Albumin 3.0 L C-Reactive Protein 36.50 H Hodkg-7-Rvdwvayir PEP Interpretation Lipase PTH Intact Urine WBC (Auto) Urine Creatinine Urine Total Protein ZINA Screen Crossmatch 03/01/20 03/01/20 03/01/20 18:30 23:37 Unknown WBC Hgb RBC Hct MCV MCH RDW Plt Count Lymph % (Auto) Lymph # [place] # Lymph # (Auto) [place] # (Auto) Seg Neutrophils % Seg Neutrophils # Seg Neuts % (Manual) Lymphocytes % (Manual) Nucleated RBC % Seg Neutrophils # Man Lymphocytes # (Manual) Monocytes # (Manual) Eosinophils # (Manual) Basophils # (Manual) ABG pH POC ABG pCO2 POC ABG pO2 ABG pO2 ABG HCO3 ABG O2 Saturation ABG Base Excess ABG Hemoglobin ABG Oxyhemoglobin Oxyhemoglobin Sodium Potassium Chloride Carbon Dioxide BUN Creatinine Glucose POC Glucose 125 H Calcium Phosphorus Magnesium Direct Bilirubin Alkaline Phosphatase Albumin C-Reactive Protein Rlafv-0-Hkdqpycqy PEP Interpretation Lipase 297 H PTH Intact Urine WBC (Auto) Urine Creatinine Urine Total Protein ZINA Screen Crossmatch See Detail 03/02/20 03/02/20 03/02/20 04:00 05:36 05:36 WBC 26.0 H Hgb 7.8 L RBC 3.26 L Hct 24.2 L MCV 74 L MCH 24 L RDW 21.3 H Plt Count 508 H Lymph % (Auto) Lymph # [place] # Lymph # (Auto) [place] # (Auto) Seg Neutrophils % Seg Neutrophils # Seg Neuts % (Manual) 86.0 H Lymphocytes % (Manual) 4.0 L Nucleated RBC % 2.0 H Seg Neutrophils # Man 22.4 H Lymphocytes # (Manual) 1.0 L Monocytes # (Manual) Eosinophils # (Manual) Basophils # (Manual) ABG pH POC ABG pCO2 27.8 L POC ABG pO2 ABG pO2 ABG HCO3 ABG O2 Saturation ABG Base Excess ABG Hemoglobin 8 L ABG Oxyhemoglobin Oxyhemoglobin Sodium Potassium Chloride Carbon Dioxide 17 L BUN 85 H Creatinine 5.6 H Glucose 109 H POC Glucose Calcium Phosphorus Magnesium 2.50 H Direct Bilirubin Alkaline Phosphatase Albumin 2.3 L C-Reactive Protein Iwzhu-4-Tcrtczwsk PEP Interpretation Lipase PTH Intact Urine WBC (Auto) Urine Creatinine Urine Total Protein ZINA Screen Crossmatch 03/03/20 03/03/20 03/03/20 04:00 04:36 04:36 WBC Hgb RBC Hct MCV MCH RDW Plt Count Lymph % (Auto) Lymph # [place] # Lymph # (Auto) [place] # (Auto) Seg Neutrophils % Seg Neutrophils # Seg Neuts % (Manual) Lymphocytes % (Manual) Nucleated RBC % Seg Neutrophils # Man Lymphocytes # (Manual) Monocytes # (Manual) Eosinophils # (Manual) Basophils # (Manual) ABG pH POC ABG pCO2 31.8 L POC ABG pO2 ABG pO2 ABG HCO3 ABG O2 Saturation ABG Base Excess ABG Hemoglobin 8.6 L ABG Oxyhemoglobin Oxyhemoglobin Sodium 147 H Potassium Chloride 108.4 H Carbon Dioxide 16 L BUN 87 H Creatinine 6.2 H Glucose POC Glucose Calcium Phosphorus Magnesium 2.50 H Direct Bilirubin 1.0 H Alkaline Phosphatase Albumin 2.4 L C-Reactive Protein Oyxdp-6-Mhdqfoowh PEP Interpretation Lipase 119 H PTH Intact Urine WBC (Auto) Urine Creatinine Urine Total Protein ZINA Screen Crossmatch 03/03/20 03/03/20 03/03/20 04:36 12:48 17:48 WBC 28.0 H Hgb 8.1 L RBC 3.41 L Hct 25.3 L MCV 74 L MCH 24 L RDW 20.8 H Plt Count 557 H Lymph % (Auto) Lymph # [place] # Lymph # (Auto) [place] # (Auto) Seg Neutrophils % Seg Neutrophils # Seg Neuts % (Manual) 82.0 H Lymphocytes % (Manual) 4.0 L Nucleated RBC % Seg Neutrophils # Man 23.0 H Lymphocytes # (Manual) 1.1 L Monocytes # (Manual) 2.0 H Eosinophils # (Manual) Basophils # (Manual) ABG pH POC ABG pCO2 POC ABG pO2 ABG pO2 ABG HCO3 ABG O2 Saturation ABG Base Excess ABG Hemoglobin ABG Oxyhemoglobin Oxyhemoglobin Sodium Potassium Chloride Carbon Dioxide BUN Creatinine Glucose POC Glucose 131 H 113 H Calcium Phosphorus Magnesium Direct Bilirubin Alkaline Phosphatase Albumin C-Reactive Protein [id number] PEP Interpretation Lipase PTH Intact Urine WBC (Auto) Urine Creatinine Urine Total Protein ZINA Screen Crossmatch 03/03/20 03/04/20 03/04/20 23:43 03:43 04:05 WBC Hgb RBC Hct MCV MCH RDW Plt Count Lymph % (Auto) Lymph # [place] # Lymph # (Auto) [place] # (Auto) Seg Neutrophils % Seg Neutrophils # Seg Neuts % (Manual) Lymphocytes % (Manual) Nucleated RBC % Seg Neutrophils # Man Lymphocytes # (Manual) Monocytes # (Manual) Eosinophils # (Manual) Basophils # (Manual) ABG pH POC ABG pCO2 POC ABG pO2 ABG pO2 57.4 L ABG HCO3 27.2 H ABG O2 Saturation 88.6 L ABG Base Excess ABG Hemoglobin ABG Oxyhemoglobin Oxyhemoglobin Sodium Potassium 3.3 L Chloride Carbon Dioxide BUN 65 H Creatinine 5.3 H Glucose 152 H POC Glucose 149 H Calcium Phosphorus Magnesium Direct Bilirubin 0.7 H Alkaline Phosphatase Albumin 2.5 L C-Reactive Protein Nmctg-4-Jogsturkr PEP Interpretation Lipase PTH Intact Urine WBC (Auto) Urine Creatinine Urine Total Protein ZINA Screen Crossmatch 03/04/20 03/04/20 03/04/20 04:05 05:26 12:21 WBC 30.1 H Hgb 8.2 L RBC 3.44 L Hct 25.2 L MCV 73 L MCH 24 L RDW 20.7 H Plt Count 554 H Lymph % (Auto) 3.3 L Lymph # [place] # Lymph # (Auto) 1.0 L [place] # (Auto) 2.0 H Seg Neutrophils % 88.6 H Seg Neutrophils # 26.6 H Seg Neuts % (Manual) Lymphocytes % (Manual) Nucleated RBC % Seg Neutrophils # Man Lymphocytes # (Manual) Monocytes # (Manual) Eosinophils # (Manual) Basophils # (Manual) ABG pH POC ABG pCO2 POC ABG pO2 ABG pO2 ABG HCO3 ABG O2 Saturation ABG Base Excess ABG Hemoglobin ABG Oxyhemoglobin Oxyhemoglobin Sodium Potassium Chloride Carbon Dioxide BUN Creatinine Glucose POC Glucose 136 H 155 H Calcium Phosphorus Magnesium Direct Bilirubin Alkaline Phosphatase Albumin C-Reactive Protein Ulwrh-0-Ckoioklzy PEP Interpretation Lipase PTH Intact Urine WBC (Auto) Urine Creatinine Urine Total Protein ZINA Screen Crossmatch 03/04/20 03/04/20 03/04/20 18:02 19:00 23:24 WBC Hgb RBC Hct MCV MCH RDW Plt Count Lymph % (Auto) Lymph # [place] # Lymph # (Auto) [place] # (Auto) Seg Neutrophils % Seg Neutrophils # Seg Neuts % (Manual) Lymphocytes % (Manual) Nucleated RBC % Seg Neutrophils # Man Lymphocytes # (Manual) Monocytes # (Manual) Eosinophils # (Manual) Basophils # (Manual) ABG pH POC ABG pCO2 POC ABG pO2 ABG pO2 ABG HCO3 ABG O2 Saturation ABG Base Excess ABG Hemoglobin ABG Oxyhemoglobin Oxyhemoglobin Sodium Potassium Chloride Carbon Dioxide BUN Creatinine Glucose POC Glucose 124 H 115 H Calcium Phosphorus Magnesium Direct Bilirubin Alkaline Phosphatase Albumin C-Reactive Protein Uqfsu-1-Xjtwomqnd PEP Interpretation Lipase 72 H PTH Intact Urine WBC (Auto) Urine Creatinine Urine Total Protein ZINA Screen Crossmatch 03/05/20 03/05/20 03/05/20 05:04 05:29 06:00 WBC Hgb RBC Hct MCV MCH RDW Plt Count Lymph % (Auto) Lymph # [place] # Lymph # (Auto) [place] # (Auto) Seg Neutrophils % Seg Neutrophils # Seg Neuts % (Manual) Lymphocytes % (Manual) Nucleated RBC % Seg Neutrophils # Man Lymphocytes # (Manual) Monocytes # (Manual) Eosinophils # (Manual) Basophils # (Manual) ABG pH POC ABG pCO2 POC ABG pO2 ABG pO2 62.5 L ABG HCO3 26.4 H ABG O2 Saturation 92.1 L ABG Base Excess ABG Hemoglobin 9.3 L ABG Oxyhemoglobin Oxyhemoglobin 89.9 L Sodium Potassium Chloride Carbon Dioxide BUN 54 H Creatinine 5.4 H Glucose 125 H POC Glucose 134 H Calcium Phosphorus Magnesium Direct Bilirubin 0.6 H Alkaline Phosphatase 133 H Albumin 2.5 L C-Reactive Protein Qirro-2-Cyghmsbwt PEP Interpretation Lipase PTH Intact Urine WBC (Auto) Urine Creatinine Urine Total Protein ZINA Screen Crossmatch 03/05/20 03/05/20 03/05/20 12:18 18:01 21:39 WBC Hgb RBC Hct MCV MCH RDW Plt Count Lymph % (Auto) Lymph # [place] # Lymph # (Auto) [place] # (Auto) Seg Neutrophils % Seg Neutrophils # Seg Neuts % (Manual) Lymphocytes % (Manual) Nucleated RBC % Seg Neutrophils # Man Lymphocytes # (Manual) Monocytes # (Manual) Eosinophils # (Manual) Basophils # (Manual) ABG pH POC ABG pCO2 POC ABG pO2 ABG pO2 ABG HCO3 ABG O2 Saturation ABG Base Excess ABG Hemoglobin ABG Oxyhemoglobin Oxyhemoglobin Sodium Potassium Chloride Carbon Dioxide BUN Creatinine Glucose POC Glucose 118 H 108 H 123 H Calcium Phosphorus Magnesium Direct Bilirubin Alkaline Phosphatase Albumin C-Reactive Protein Aujev-3-Qjhuogwum PEP Interpretation Lipase PTH Intact Urine WBC (Auto) Urine Creatinine Urine Total Protein ZINA Screen Crossmatch 03/06/20 03/06/20 03/06/20 04:40 04:41 05:44 WBC Hgb RBC Hct MCV MCH RDW Plt Count Lymph % (Auto) Lymph # [place] # Lymph # (Auto) [place] # (Auto) Seg Neutrophils % Seg Neutrophils # Seg Neuts % (Manual) Lymphocytes % (Manual) Nucleated RBC % Seg Neutrophils # Man Lymphocytes # (Manual) Monocytes # (Manual) Eosinophils # (Manual) Basophils # (Manual) ABG pH POC ABG pCO2 POC ABG pO2 64.9 L ABG pO2 ABG HCO3 ABG O2 Saturation ABG Base Excess ABG Hemoglobin 9.9 L ABG Oxyhemoglobin 90.5 L Oxyhemoglobin Sodium Potassium Chloride 94.7 L Carbon Dioxide BUN 70 H Creatinine 7.1 H Glucose 113 H POC Glucose 134 H Calcium Phosphorus Magnesium Direct Bilirubin Alkaline Phosphatase Albumin C-Reactive Protein Czpjp-2-Kekkvjtqo PEP Interpretation Lipase PTH Intact Urine WBC (Auto) Urine Creatinine Urine Total Protein ZINA Screen Crossmatch 03/06/20 03/06/20 03/06/20 08:54 11:56 18:19 WBC 31.5 H Hgb 8.7 L RBC Hct 27.8 L MCV 75 L MCH 23 L RDW 21.2 H Plt Count 516 H Lymph % (Auto) Lymph # [place] # Lymph # (Auto) [place] # (Auto) Seg Neutrophils % Seg Neutrophils # Seg Neuts % (Manual) 93.0 H Lymphocytes % (Manual) 2.0 L Nucleated RBC % Seg Neutrophils # Man 29.3 H Lymphocytes # (Manual) 0.6 L Monocytes # (Manual) Eosinophils # (Manual) 0.6 H Basophils # (Manual) ABG pH POC ABG pCO2 POC ABG pO2 ABG pO2 ABG HCO3 ABG O2 Saturation ABG Base Excess ABG Hemoglobin ABG Oxyhemoglobin Oxyhemoglobin Sodium Potassium Chloride Carbon Dioxide BUN Creatinine Glucose POC Glucose 131 H 117 H Calcium Phosphorus Magnesium Direct Bilirubin Alkaline Phosphatase Albumin C-Reactive Protein Wjzel-4-Ouvxacxzl PEP Interpretation Lipase PTH Intact Urine WBC (Auto) Urine Creatinine Urine Total Protein ZINA Screen Crossmatch 03/07/20 03/07/20 03/07/20 05:03 05:03 12:08 WBC 26.9 H Hgb 8.3 L RBC 3.50 L Hct 26.6 L MCV 76 L MCH 24 L RDW 21.3 H Plt Count 470 H Lymph % (Auto) Lymph # [place] # Lymph # (Auto) [place] # (Auto) Seg Neutrophils % Seg Neutrophils # Seg Neuts % (Manual) 89.0 H Lymphocytes % (Manual) 4.0 L Nucleated RBC % Seg Neutrophils # Man 23.9 H Lymphocytes # (Manual) 1.1 L Monocytes # (Manual) Eosinophils # (Manual) Basophils # (Manual) 0.3 H ABG pH POC ABG pCO2 POC ABG pO2 ABG pO2 ABG HCO3 ABG O2 Saturation ABG Base Excess ABG Hemoglobin ABG Oxyhemoglobin Oxyhemoglobin Sodium Potassium Chloride 94.8 L Carbon Dioxide BUN 52 H Creatinine 6.3 H Glucose 106 H POC Glucose 114 H Calcium Phosphorus Magnesium Direct Bilirubin Alkaline Phosphatase 132 H Albumin 2.5 L C-Reactive Protein Ipkwe-8-Bhrttgers PEP Interpretation Lipase PTH Intact Urine WBC (Auto) Urine Creatinine Urine Total Protein ZINA Screen Crossmatch Chest x-ray: other (none today) Allied health notes reviewed: nursing
--- NOTE | 2020-03-07 15:26 | Progress Note ---
Assessment and Plan Cultures: Urine culture grew 10-100,000 usual xavier. Blood culture 02/26/2020 no growth 02/29/2020 sputum culture: rare usual xavier 03/06/2020 blood culture: in process Assessment: 39 years old female with history of hypertension, previous kidney stone, hyperlipidemia and obesity admitted on 02/24/2020 due to a week history of severe epigastric abdominal pain radiated to the right flank and back: #Acute sepsis: Likely secondary to severe pancreatitis and related complications. Remains critically ill. #Acute severe pancreatitis: Unclear etiology. Initial non-contrasted CT showed no evidence of necrosis or pseudocyst or abscess formation. Repeat CT 03/05 with interval worsening of acute pancreatitis without clear evidence of necrosis, however was done without IV contrast due to her renal function. #Acute renal failure: now requiring dialysis. Nephrology on board. #Acute respiratory hypoxic failure: on the vent. #?Alcohol abuse Recommendations: -continue with IV Meropenem, renally dosed, D5 today. Plan to stop once clinically better / WBC better -ongoing fevers likely to due severe pancreatitis Louie Graves MD, FACP [facility] ([facility] C: [phone] O: [phone] F: [phone] Subjective Date of service: 03/07/20 Principal diagnosis: HTNsive urgency; Morbid obesity; Ac. pancreatitis; Abdominal pain Interval history: Remains intermittently febrile. Sedated, intubated on the vent. Objective - Exam Narrative Exam: Physical Exam: Constitutional: sedated, intubated, on the vent Head, Ears, Nose: Normocephalic, atraumatic. External ears, nose normal Eyes: Conjunctivae/corneas clear. No icterus. No ptosis. Neck: intubated Oral: intubated Cardiovascular: S1, S2 + Respiratory: AE fair but reduced in the bases GI: distended, bowel sounds + Musculoskeletal: No pedal edema, no cyanosis. HD cath + Skin: No rash or abscess Hem/Lymphatic: No palpable cervical or supraclavicular nodes. No lymphangitis Psych: no agitation, calm Neurological: sedated, intubated, on the vent, exam limited - Constitutional Vitals: Vital Signs Temp Pulse Resp BP Pulse Ox 99.8 F H 105 H 29 H 128/75 96 03/07/20 12:00 03/07/20 15:00 03/07/20 15:00 03/07/20 15:00 03/07/20 15:00 Temperature -Last 24 Hours Temperature 99.8 F Temperature 100.0 F Temperature 100.0 F Temperature 99.7 F Temperature 99.3 F Temperature 100.9 F Temperature 99.3 F Temperature 100.3 F Temperature 102.3 F - Labs CBC & Chem 7: 03/07/20 05:03 03/07/20 05:03 Labs: Abnormal lab results 03/06/20 03/06/20 03/07/20 Range/Units 11:56 18:19 05:03 WBC (4.5-11.0) K/mm3 RBC (3.65-5.03) M/mm3 Hgb (10.1-14.3) gm/dl Hct (30.3-42.9) % MCV (79-97) fl MCH (28-32) pg RDW (13.2-15.2) % Plt Count (140-440) K/mm3 Seg Neuts % (Manual) (40.0-70.0) % Lymphocytes % (Manual) (13.4-35.0) % Seg Neutrophils # Man (1.8-7.7) K/mm3 Lymphocytes # (Manual) (1.2-5.4) K/mm3 Basophils # (Manual) (0.0-0.1) K/mm3 Chloride 94.8 L (98-107) mmol/L BUN 52 H (7-17) mg/dL Creatinine 6.3 H (0.6-1.2) mg/dL Glucose 106 H (65-100) mg/dL POC Glucose 131 H 117 H (70-105) Alkaline Phosphatase 132 H (35-129) units/L Albumin 2.5 L (3.9-5) g/dL 03/07/20 03/07/20 Range/Units 05:03 12:08 WBC 26.9 H (4.5-11.0) K/mm3 RBC 3.50 L (3.65-5.03) M/mm3 Hgb 8.3 L (10.1-14.3) gm/dl Hct 26.6 L (30.3-42.9) % MCV 76 L (79-97) fl MCH 24 L (28-32) pg RDW 21.3 H (13.2-15.2) % Plt Count 470 H (140-440) K/mm3 Seg Neuts % (Manual) 89.0 H (40.0-70.0) % Lymphocytes % (Manual) 4.0 L (13.4-35.0) % Seg Neutrophils # Man 23.9 H (1.8-7.7) K/mm3 Lymphocytes # (Manual) 1.1 L (1.2-5.4) K/mm3 Basophils # (Manual) 0.3 H (0.0-0.1) K/mm3 Chloride (98-107) mmol/L BUN (7-17) mg/dL Creatinine (0.6-1.2) mg/dL Glucose (65-100) mg/dL POC Glucose 114 H (70-105) Alkaline Phosphatase (35-129) units/L Albumin (3.9-5) g/dL
--- NOTE | 2020-03-07 16:47 | Progress Note ---
Assessment and Plan # Acute Kidney Injury/Chronic Kidney Disease: suspect JUANIS in setting of hypertensive urgency and pre-renal injury from pancreatitis. Additional JUANIS risk factors include use of NSAID (Toradol) and PPI. 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 Creatinine has worsened from 1.7->3.0->3.1->3.4->4.2->4.7->5.6->5.0> 6.2 since admission, now intubated -Status post Vas-Cath placement on 12/02/2019 and initiation of dialysis. -Hyperkalemia and acidosis has been corrected. Volume status is improving. Urine output however has declined. Had uneventful hemodialysis today - strict Is/Os - ordered serologies-> ANCA negative; ZINA is positive. Check anti-DNA antibody. Complement levels are normal. Minimal proteinuria per UP/C, PTH high for CKD; reviewed urinalysis which does show hematuria and proteinuria - BP control as below # Hypertensive Emergency: BPs improved, off Cardene gtt, agree to titrate back to home amlodipine, metoprolol. On HANNA-I at home, hold for now. # Acidosis: Bicarbonate level is back up to 24. Discontinue bicarbonate drip . # Pancreatitis: appreciate GI, pain management per primary. # Thrombocytosis # Leukocytosis Subjective Date of service: 03/07/20 Principal diagnosis: HTNsive urgency; Morbid obesity; Ac. pancreatitis; Abdominal pain Interval history: Patient remains in the ICU. Uneventful hemodialysis this morning . Currently on 30% FiO2. Objective - Vital Signs Vital signs: Vital Signs - 12hr 03/07/20 03/07/20 03/07/20 05:00 05:30 05:50 Temperature Pulse Rate 108 H 107 H 107 H Pulse Rate [ Anterior Bilateral Throughout] Pulse Rate [ From Monitor] Respiratory 21 20 20 Rate Respiratory Rate [Anterior Bilateral Throughout] Blood Pressure 151/92 142/92 O2 Sat by Pulse 96 96 97 Oximetry O2 Sat by Pulse Oximetry [ Anterior Bilateral Throughout] 03/07/20 03/07/20 03/07/20 06:00 06:06 06:30 Temperature Pulse Rate 103 H 114 H 109 H Pulse Rate [ Anterior Bilateral Throughout] Pulse Rate [ From Monitor] Respiratory 20 21 Rate Respiratory Rate [Anterior Bilateral Throughout] Blood Pressure 127/78 127/78 139/88 O2 Sat by Pulse 96 96 Oximetry O2 Sat by Pulse Oximetry [ Anterior Bilateral Throughout] 03/07/20 03/07/20 03/07/20 07:00 07:30 08:00 Temperature 100.0 F H Pulse Rate 104 H 103 H 103 H Pulse Rate [ Anterior Bilateral Throughout] Pulse Rate [ 114 H From Monitor] Respiratory 20 20 20 Rate Respiratory Rate [Anterior Bilateral Throughout] Blood Pressure 126/81 127/78 121/75 O2 Sat by Pulse 97 97 97 Oximetry O2 Sat by Pulse Oximetry [ Anterior Bilateral Throughout] 03/07/20 03/07/20 03/07/20 08:08 08:15 08:30 Temperature Pulse Rate 103 H 115 H Pulse Rate [ 84 Anterior Bilateral Throughout] Pulse Rate [ From Monitor] Respiratory 26 H Rate Respiratory 27 H Rate [Anterior Bilateral Throughout] Blood Pressure 121/75 144/84 O2 Sat by Pulse 96 97 Oximetry O2 Sat by Pulse Oximetry [ Anterior Bilateral Throughout] 03/07/20 03/07/20 03/07/20 08:35 08:40 08:45 Temperature 100.0 F H Pulse Rate 101 H 114 H 121 H Pulse Rate [ Anterior Bilateral Throughout] Pulse Rate [ From Monitor] Respiratory 22 Rate Respiratory Rate [Anterior Bilateral Throughout] Blood Pressure 140/81 144/84 174/97 O2 Sat by Pulse Oximetry O2 Sat by Pulse 96 Oximetry [ Anterior Bilateral Throughout] 03/07/20 03/07/20 03/07/20 09:00 09:15 09:30 Temperature Pulse Rate 112 H 107 H 107 H Pulse Rate [ Anterior Bilateral Throughout] Pulse Rate [ From Monitor] Respiratory 22 24 Rate Respiratory Rate [Anterior Bilateral Throughout] Blood Pressure 128/84 128/76 140/84 O2 Sat by Pulse 96 96 Oximetry O2 Sat by Pulse Oximetry [ Anterior Bilateral Throughout] 03/07/20 03/07/20 03/07/20 09:45 10:00 10:15 Temperature Pulse Rate 107 H 108 H 108 H Pulse Rate [ Anterior Bilateral Throughout] Pulse Rate [ From Monitor] Respiratory 29 H Rate Respiratory Rate [Anterior Bilateral Throughout] Blood Pressure 132/85 129/83 137/86 O2 Sat by Pulse 96 Oximetry O2 Sat by Pulse Oximetry [ Anterior Bilateral Throughout] 03/07/20 03/07/20 03/07/20 10:30 10:45 11:00 Temperature Pulse Rate 109 H 109 H 109 H Pulse Rate [ Anterior Bilateral Throughout] Pulse Rate [ From Monitor] Respiratory 24 24 Rate Respiratory Rate [Anterior Bilateral Throughout] Blood Pressure 126/81 128/86 136/85 O2 Sat by Pulse 97 97 Oximetry O2 Sat by Pulse Oximetry [ Anterior Bilateral Throughout] 03/07/20 03/07/20 03/07/20 11:15 11:30 11:31 Temperature Pulse Rate 110 H 110 H 110 H Pulse Rate [ Anterior Bilateral Throughout] Pulse Rate [ From Monitor] Respiratory 30 H Rate Respiratory Rate [Anterior Bilateral Throughout] Blood Pressure 149/90 134/87 O2 Sat by Pulse 97 Oximetry O2 Sat by Pulse Oximetry [ Anterior Bilateral Throughout] 03/07/20 03/07/20 03/07/20 11:40 11:45 11:50 Temperature Pulse Rate 120 H 114 H 106 H Pulse Rate [ Anterior Bilateral Throughout] Pulse Rate [ From Monitor] Respiratory 30 H 23 Rate Respiratory Rate [Anterior Bilateral Throughout] Blood Pressure 146/110 137/91 137/91 O2 Sat by Pulse 97 Oximetry O2 Sat by Pulse 99 Oximetry [ Anterior Bilateral Throughout] 03/07/20 03/07/20 03/07/20 11:52 11:53 12:00 Temperature 99.8 F H Pulse Rate 112 H 113 H 114 H Pulse Rate [ Anterior Bilateral Throughout] Pulse Rate [ 108 H From Monitor] Respiratory 29 H Rate Respiratory Rate [Anterior Bilateral Throughout] Blood Pressure 137/91 137/91 140/94 O2 Sat by Pulse 97 Oximetry O2 Sat by Pulse Oximetry [ Anterior Bilateral Throughout] 03/07/20 03/07/20 03/07/20 12:30 13:00 13:30 Temperature Pulse Rate 102 H 101 H 108 H Pulse Rate [ Anterior Bilateral Throughout] Pulse Rate [ From Monitor] Respiratory 27 H 26 H 34 H Rate Respiratory Rate [Anterior Bilateral Throughout] Blood Pressure 138/80 116/86 122/72 O2 Sat by Pulse 97 98 95 Oximetry O2 Sat by Pulse Oximetry [ Anterior Bilateral Throughout] 03/07/20 03/07/20 03/07/20 14:00 14:30 14:47 Temperature Pulse Rate 104 H 104 H Pulse Rate [ 106 H Anterior Bilateral Throughout] Pulse Rate [ From Monitor] Respiratory 29 H 32 H Rate Respiratory 30 H Rate [Anterior Bilateral Throughout] Blood Pressure 114/70 118/70 O2 Sat by Pulse 96 96 Oximetry O2 Sat by Pulse Oximetry [ Anterior Bilateral Throughout] 03/07/20 03/07/20 03/07/20 15:00 15:30 16:00 Temperature Pulse Rate 105 H 112 H 108 H Pulse Rate [ Anterior Bilateral Throughout] Pulse Rate [ 107 H From Monitor] Respiratory 29 H 33 H 33 H Rate Respiratory Rate [Anterior Bilateral Throughout] Blood Pressure 128/75 130/76 127/78 O2 Sat by Pulse 96 96 96 Oximetry O2 Sat by Pulse Oximetry [ Anterior Bilateral Throughout] 03/07/20 16:11 Temperature Pulse Rate 107 H Pulse Rate [ Anterior Bilateral Throughout] Pulse Rate [ From Monitor] Respiratory 33 H Rate Respiratory Rate [Anterior Bilateral Throughout] Blood Pressure 127/78 O2 Sat by Pulse 95 Oximetry O2 Sat by Pulse Oximetry [ Anterior Bilateral Throughout] - General Appearance General appearance: well-developed, well-nourished, appears stated age, intubated EENT: PERRL, mucous membranes moist Neck: no JVD, no thyromegaly, no carotid bruit, supple, other (Right IJ Vas-Cath in place) Respiratory: Present: Clear to Ascultation Cardiology: regular, normal heart rate, S1S2, no murmurs Gastrointestinal: normal, normoactive bowel sounds Integumentary: other (No edema) - Lab 03/07/20 05:03 03/07/20 05:03 Most recent lab results ABG pH 7.380 (7.320-7.450) 03/06/20 04:41 ABG pCO2 43.1 mm Hg 03/05/20 05:04 ABG pO2 62.5 mm Hg (80.0-90.0) L 03/05/20 05:04 ABG HCO3 26.4 mmol/L (20.0-26.0) H 03/05/20 05:04 ABG O2 Saturation 92.1 % (95.0-99.0) L 03/05/20 05:04 Calcium 9.2 mg/dL (8.4-10.2) 03/07/20 05:03 Phosphorus 6.10 mg/dL (2.5-4.5) H 03/01/20 04:37 Magnesium 2.00 mg/dL (1.7-2.3) 03/07/20 05:03 Urine Creatinine 161.0 mg/dL (0.1-20.0) H 02/25/20 22:55 Urine Total Protein 150 mg/dL (5-11.8) H 02/25/20 22:55 Medications & Allergies - Medications Allergies/Adverse Reactions: Allergies No Known Allergies Allergy (Unverified 09/05/19 10:15) Home Medications: Home Medications Medication Instructions Recorded Confirmed Last Taken Type Amlodipine Besylate [Norvasc] 10 mg PO DAILY 09/05/19 02/24/20 09/04/19 History Furosemide [Lasix] 20 mg PO QDAY #30 tablet 09/05/19 02/24/20 Unknown Rx Lisinopril [Zestril] 5 mg PO DAILY #30 tablet 09/05/19 02/24/20 Unknown Rx Metoprolol [Lopressor TAB] 25 mg PO BID #60 tablet 09/05/19 02/24/20 Unknown Rx Active Medications: Generic Name Dose Route Start Last Admin Trade Name Freq PRN Reason Stop Dose Admin Acetaminophen 650 mg 02/26/20 16:23 03/06/20 17:40 Tylenol PO 650 mg Q4H PRN Administration Pain, Mild (1-3)/ Temp >100. Albuterol 2.5 mg 02/27/20 17:55 Proventil IH Q4HRT PRN Shortness Of Breath Albuterol/Ipratropium 1 ampul 02/28/20 12:17 03/07/20 14:46 Duoneb *Not For Prn Use* IH 1 ampul Q6HRT INDU Administration Amlodipine Besylate 10 mg 02/28/20 10:00 03/07/20 11:53 Amlodipine PO 10 mg QDAY INDU Administration Lipase/Protease/Amylase 1 each 03/01/20 08:46 Graciela Davis 10,500 Unit FEEDTUBE PRN PRN For Clogged Feeding Tube Dextrose 50 ml 02/29/20 08:00 03/01/20 00:20 D50w (25gm) Syringe IV 10 ml Q30MIN PRN Administration HYPOGLYCEMIA Protocol Fentanyl 50 mcg 02/29/20 15:35 03/04/20 20:35 Sublimaze IV 50 mcg Q10MIN PRN Administration ANALGESIA Heparin Sodium (Porcine) 5,000 unit 02/24/20 14:00 03/07/20 06:04 Heparin SUB-Q 5,000 unit Q8HR INDU Administration Hydralazine HCl 25 mg 03/04/20 14:00 03/07/20 06:06 Apresoline PO 25 mg Q8HR INDU Administration Hydrophilic Ointment 1 applic 02/29/20 15:35 Vaseline Lip Therapy TP Q2HR PRN Dry Lips Fentanyl Citrate 2,000 mcg in 100 mls @ 4.55 mls/hr 02/29/20 16:00 03/06/20 21:45 Fentanyl Drip Premix IV 2 mcg/kg/hr TITR INDU 9.1 mls/hr Administration Protocol 1 MCG/KG/HR MEROPENEM/NS 1 GRAM/100 ML 1 gram in 100 mls @ 100 mls/hr 03/03/20 18:00 03/06/20 18:35 Merrem/Ns 1 Gram/100 Ml IV 100 mls/hr QPM INDU Administration Protocol Sodium Chloride 100 mls @ 999 mls/hr 03/06/20 13:00 Nacl 0.9% IV NIKOLAY PRN Hypotension Labetalol HCl 10 mg 02/28/20 09:00 03/05/20 04:10 Labetalol IV 10 mg Q4H PRN Administration Hypertension Lansoprazole 30 mg 03/06/20 10:00 03/07/20 11:53 Prevacid Solutab FEEDTUBE 30 mg QDAY INDU Administration Lorazepam 4 mg 03/06/20 11:00 03/07/20 13:15 Ativan IV 4 mg Q4H PRN Administration AGITATION Metoprolol Tartrate 25 mg 02/28/20 10:00 03/07/20 11:52 Metoprolol PO 25 mg BID INDU Administration Multi-Ingred Cream/Lotion/Oil/Oint 1 applic 02/29/20 15:35 Artificial Tears Ophth Oint OU Q4HR PRN Dry Eye(s) Ondansetron HCl 4 mg 02/24/20 06:45 02/25/20 23:33 Zofran IV 4 mg Q8H PRN Administration Nausea And Vomiting Quetiapine Fumarate 100 mg 03/06/20 10:00 03/07/20 11:53 Seroquel PO 100 mg QAM INDU Administration Quetiapine Fumarate 200 mg 03/06/20 22:00 03/06/20 21:13 Seroquel PO 200 mg QHS INDU Administration Scopolamine 1 each 03/04/20 16:00 03/07/20 11:54 Transderm-Scop TD 1 each Q3D INDU Administration Simple Syrup 15 ml 03/01/20 08:46 Simple Syrup FEEDTUBE PRN PRN Hypoglycemia Simple Syrup 30 ml 03/01/20 08:46 Simple Syrup FEEDTUBE PRN PRN Hypoglycemia Sodium Bicarbonate 325 mg 03/01/20 08:46 Sodium Bicarbonate FEEDTUBE PRN PRN For Clogged Feeding Tube Sodium Chloride 10 ml 02/24/20 10:00 03/07/20 11:54 Sodium Chloride Flush Syringe 10 Ml IV 10 ml BID INDU Administration Sodium Chloride 10 ml 02/24/20 06:45 Sodium Chloride Flush Syringe 10 Ml IV PRN PRN LINE FLUSH Tamsulosin HCl 0.4 mg 03/01/20 17:00 03/07/20 11:53 Flomax PO 0.4 mg QDAY INDU Administration
[2020-03-07] MEDS: MEROPENEM/NS 1 GRAM/100 ML 1 GRAM/100 ML BAG IV SCH (18:13)
[2020-03-07] MEDS: QUEtiapine 200 MG TAB PO SCH (21:27)
[2020-03-08] MEDS: HEPARIN 5,000 UNIT/1 ML VIAL SUB-Q SCH ×3 (05:10→21:44)
[2020-03-08] MEDS: hydrALAZINE 25 MG TAB PO SCH ×3 (05:12→21:44)
[2020-03-08] MEDS: IPRATROPIUM/ALBUTEROL SULFATE 3 ML AMPUL.NEB IH SCH ×4 (05:21→20:56)
[2020-03-08] MEDS: fentaNYL DRIP Premix 2,000 MCG/100 ML BAG IV SCH ×2 (05:58→16:42)
[2020-03-08 07:50] LABS: Calcium 9.5 mg/dL (8.4-10.2)
[2020-03-08] MEDS: ACETAMINOPHEN 325 MG TAB PO PRN ×2 (08:14→16:43)
--- NOTE | 2020-03-08 09:32 | Progress Note ---
Assessment and Plan Assessment and plan: --JUANIS/worsening renal function[cr 5.6-6.2] Worsening renal function, Initiated hemodialysis 03/03/2020 Hemodialysis per nephrology --Acute hypoxic resp failure; intubated 02/29/20 Mechanical ventilation , supportive care secondary to pancreatitis, lung infiltrate, possible ARDS Fluid overload.acute kidney injury Wean as tolerated and extubate Pulmonary critical following Chest x-ray today; worsening infiltrates --Severe sepsis secondary to pneumonia and pancreatitis; Worsening bibasilar opacities on chest x-ray leukocytosis, tachycardia, tachypnea, fever, infiltrate on chest x-ray. Continue antibiotic, follow cultures, ID following -- Acute severe pancreatitis Initial non-contrasted CT showed no evidence of necrosis or pseudocyst or abscess formation. Repeat CT 03/05 with interval worsening of acute pancreatitis without clear evidence of necrosis with increased jessica-pancreatic fat stranding and disorganized fluid, however was done without IV contrast due to her renal function. -- Bilateral pleural effusions. Etiology secondary to above Compressive atelectasis --Anemia monitor H&H and transfuse as needed. Anasarca --Severe metabolic encephalopathy Probably secondary alcohol withdrawal symptoms Treat the underlying cause,CIWA protocol, supportive care --Alcohol withdrawal closely monitor , Ativan as needed Continue CIWA protocol --Worsening leukocytosis Secondary to sepsis due to bibasilar pneumonia, acute pancreatitis, ID and GI following -- Hypertensive emergency POA s/p Cardene drip, closely monitor Blood pressures uncontrolled IV labetalol, PRN --Severe metabolic acidosis; Management per nephrology --Medical noncompliance Patient was counseled upon admission -- DVT prophylaxis Patient placed on subcutaneous heparin. --Obesity; BMI 37.9 patient needs weight reduction when medically stable. -- Full code status Follow GI and pulmonary evaluation and recommendations We will closely monitor the patient and adjust the management as needed Closely monitor the patient and adjust management as needed. Patient is critically ill with multiple medical problems Prognosis poor, family aware 03/03; patient had worsening renal function, considering Vas-Cath placement and initiating hemodialysis Patient is critically ill with multiple organ involvement, family aware 03/04; patient remains critically ill on vent, initiated dialysis, poor prognosis multiorgan involvement Lard Bleacher recommendations noted and appreciated 03/07/2020. Patient remains critically ill on mechanical ventilation AC mode rate 20, tidal volume 450, FiO2 30% with a PEEP of 6. Patient with multiorgan failure. Continue hemodialysis per nephrology. GI believes patient may need MRCP at some point in the future but no need urgently. Continue fentanyl drip for sedation and wean as tolerated. Patient currently with meropenem/ID following. 03/08/2020. Patient remains critically ill on mechanical ventilation AC mode rate 20, tidal volume 450, FiO2 30% with a PEEP of 6. Continue IV meropenem per ID recommendations. Persistent fevers likely associated to acute severe pancreatitis. Creatinine 1.5 in September 2019, may have underlying CKD. Creatinine has worsened from 1.7->3.0->3.1->3.4->4.2->4.7->5.6->5.0> 6.2 since admission. Status post Vas-Cath placement on 03/03/2020 and initiation of d ialysis. The high probability of a clinically significant, sudden or life threatening deterioration of the [GI, CVS, renal, respiratory and metabolic] system(s) required my full and direct attention, intervention and personal management. The aggregate critical care time was [32] minutes. This t humberto is in addition to time spent performing reported procedures but includes the following: [x] Data Review and interpretation [x] Patient assessment and monitoring of vital signs [x] Documentation [x] Medication orders and management History Interval history: No new issues overnight. Hospitalist Physical - Constitutional Vitals: Temp Pulse Resp BP Pulse Ox 100.1 F H 95 H 20 101/53 99 03/08/20 04:00 03/08/20 08:10 03/08/20 06:00 03/08/20 08:10 03/08/20 08:10 General appearance: Present: no acute distress, well-nourished, obese, other (Intubated) - EENT Eyes: Present: PERRL, EOM intact ENT: hearing intact, clear oral mucosa, dentition normal - Neck Neck: Present: supple, normal ROM - Respiratory Respiratory effort: normal Respiratory: bilateral: CTA - Cardiovascular Rhythm: regular Heart Sounds: Present: S1 & S2. Absent: gallop, rub - Extremities Extremities: no ischemia, No edema, Full ROM - Abdominal General gastrointestinal: soft, non-tender, non-distended, normal bowel sounds - Integumentary Integumentary: Present: clear, warm, dry - Neurologic Neurologic: CNII-XII intact, moves all extremities Results - Labs CBC & Chem 7: 03/07/20 05:03 03/08/20 04:50 Labs: Laboratory Last Values WBC 26.9 K/mm3 (4.5-11.0) H 03/07/20 05:03 RBC 3.50 M/mm3 (3.65-5.03) L 03/07/20 05:03 Hgb 8.3 gm/dl (10.1-14.3) L 03/07/20 05:03 Hct 26.6 % (30.3-42.9) L 03/07/20 05:03 MCV 76 fl (79-97) L 03/07/20 05:03 MCH 24 pg (28-32) L 03/07/20 05:03 MCHC 31 % (30-34) 03/07/20 05:03 RDW 21.3 % (13.2-15.2) H 03/07/20 05:03 Plt Count 470 K/mm3 (140-440) H 03/07/20 05:03 Lymph % (Auto) 3.3 % (13.4-35.0) L 03/04/20 04:05 [place] % (Auto) 6.7 % (0.0-7.3) 03/04/20 04:05 Eos % (Auto) 1.1 % (0.0-4.3) 03/04/20 04:05 Baso % (Auto) 0.3 % (0.0-1.8) 03/04/20 04:05 Lymph # (Auto) 1.0 K/mm3 (1.2-5.4) L 03/04/20 04:05 [place] # (Auto) 2.0 K/mm3 (0.0-0.8) H 03/04/20 04:05 Eos # (Auto) 0.3 K/mm3 (0.0-0.4) 03/04/20 04:05 Baso # (Auto) 0.1 K/mm3 (0.0-0.1) 03/04/20 04:05 Add Manual Diff Complete 03/07/20 05:03 Total Counted 100 03/07/20 05:03 Seg Neutrophils % 88.6 % (40.0-70.0) H 03/04/20 04:05 Seg Neuts % (Manual) 89.0 % (40.0-70.0) H 03/07/20 05:03 Band Neutrophils % 2.0 % 03/07/20 05:03 Lymphocytes % (Manual) 4.0 % (13.4-35.0) L 03/07/20 05:03 Reactive Lymphs % (Man) 0 % 03/07/20 05:03 Monocytes % (Manual) 3.0 % (0.0-7.3) 03/07/20 05:03 Eosinophils % (Manual) 0 % (0.0-4.3) 03/07/20 05:03 Basophils % (Manual) 1.0 % (0.0-1.8) 03/07/20 05:03 Metamyelocytes % 0 % 03/07/20 05:03 Myelocytes % 1.0 % 03/07/20 05:03 Promyelocytes % 0 % 03/07/20 05:03 Blast Cells % 0 % 03/07/20 05:03 Nucleated RBC % Not Reportable 03/07/20 05:03 Seg Neutrophils # 26.6 K/mm3 (1.8-7.7) H 03/04/20 04:05 Seg Neutrophils # Man 23.9 K/mm3 (1.8-7.7) H 03/07/20 05:03 Band Neutrophils # 0.5 K/mm3 03/07/20 05:03 Lymphocytes # (Manual) 1.1 K/mm3 (1.2-5.4) L 03/07/20 05:03 Abs React Lymphs (Man) 0.0 K/mm3 03/07/20 05:03 Monocytes # (Manual) 0.8 K/mm3 (0.0-0.8) 03/07/20 05:03 Eosinophils # (Manual) 0.0 K/mm3 (0.0-0.4) 03/07/20 05:03 Basophils # (Manual) 0.3 K/mm3 (0.0-0.1) H 03/07/20 05:03 Metamyelocytes # 0.0 K/mm3 03/07/20 05:03 Myelocytes # 0.3 K/mm3 03/07/20 05:03 Promyelocytes # 0.0 K/mm3 03/07/20 05:03 Blast Cells # 0.0 K/mm3 03/07/20 05:03 WBC Morphology Not Reportable 03/07/20 05:03 Hypersegmented Neuts Not Reportable 03/07/20 05:03 Hyposegmented Neuts Not Reportable 03/07/20 05:03 Hypogranular Neuts Not Reportable 03/07/20 05:03 Smudge Cells Not Reportable 03/07/20 05:03 Toxic Granulation Not Reportable 03/07/20 05:03 Toxic Vacuolation Not Reportable 03/07/20 05:03 Dohle Bodies Not Reportable 03/07/20 05:03 Pelger-Huet Anomaly Not Reportable 03/07/20 05:03 Maia Rods Not Reportable 03/07/20 05:03 Platelet Estimate Consistent w auto 03/07/20 05:03 Clumped Platelets Not Reportable 03/07/20 05:03 Plt Clumps, EDTA Not Reportable 03/07/20 05:03 Large Platelets Not Reportable 03/07/20 05:03 Giant Platelets Not Reportable 03/07/20 05:03 Platelet Satelliting Not Reportable 03/07/20 05:03 Plt Morphology Comment Not Reportable 03/07/20 05:03 RBC Morphology Not Reportable 03/07/20 05:03 Dimorphic RBCs Not Reportable 03/07/20 05:03 Polychromasia Not Reportable 03/07/20 05:03 Hypochromasia 1+ 03/07/20 05:03 Poikilocytosis Not Reportable 03/07/20 05:03 Anisocytosis 1+ 03/07/20 05:03 Microcytosis Few 03/07/20 05:03 Macrocytosis Not Reportable 03/07/20 05:03 Spherocytes Not Reportable 03/07/20 05:03 Pappenheimer Bodies Not Reportable 03/07/20 05:03 Sickle Cells Not Reportable 03/07/20 05:03 Target Cells Not Reportable 03/07/20 05:03 Tear Drop Cells Not Reportable 03/07/20 05:03 Ovalocytes Not Reportable 03/07/20 05:03 Helmet Cells Not Reportable 03/07/20 05:03 Jackson-[place]more Bodies Not Reportable 03/07/20 05:03 [place] Rings Not Reportable 03/07/20 05:03 Mirna Cells Not Reportable 03/07/20 05:03 Bite Cells Not Reportable 03/07/20 05:03 Crenated Cell Not Reportable 03/07/20 05:03 Elliptocytes Not Reportable 03/07/20 05:03 Acanthocytes (Spur) Not Reportable 03/07/20 05:03 Rouleaux Not Reportable 03/07/20 05:03 Hemoglobin C Crystals Not Reportable 03/07/20 05:03 Schistocytes Not Reportable 03/07/20 05:03 Malaria parasites Not Reportable 03/07/20 05:03 Edgardo Bodies Not Reportable 03/07/20 05:03 Hem Pathologist Commnt No 03/07/20 05:03 PT 13.7 Sec. (12.2-14.9) 02/25/20 03:49 INR 1.03 (0.87-1.13) 02/25/20 03:49 ABG pH 7.380 (7.320-7.450) 03/06/20 04:41 POC ABG pCO2 46.4 mmHg (32.0-48.0) 03/06/20 04:41 ABG pCO2 43.1 mm Hg 03/05/20 05:04 POC ABG pO2 64.9 mmHg (83-108) L 03/06/20 04:41 ABG pO2 62.5 mm Hg (80.0-90.0) L 03/05/20 05:04 POC ABG HCO3 26.8 03/06/20 04:41 ABG HCO3 26.4 mmol/L (20.0-26.0) H 03/05/20 05:04 ABG O2 Saturation 92.1 % (95.0-99.0) L 03/05/20 05:04 ABG O2 Content 11.9 (0.0-44) 03/05/20 05:04 POC ABG Base Excess 1.4 03/06/20 04:41 ABG Base Excess 1.5 mmol/L (-2.0-3.0) 03/05/20 05:04 ABG Hemoglobin 9.9 (12.0-17.5) L 03/06/20 04:41 ABG Oxyhemoglobin 90.5 (94-98) L 03/06/20 04:41 ABG Carboxyhemoglobin 1.9 % (0.0-5.0) 03/05/20 05:04 ABG Methemoglobin 0.3 (0.0-1.5) 03/06/20 04:41 Oxyhemoglobin 89.9 % (95.0-99.0) L 03/05/20 05:04 Carboxyhemoglobin 1 (0.5-1.5) 03/06/20 04:41 FiO2 30.0 03/06/20 04:41 Sodium 140 mmol/L (137-145) 03/08/20 04:50 Potassium 3.9 mmol/L (3.6-5.0) 03/08/20 04:50 Chloride 95.5 mmol/L (98-107) L 03/08/20 04:50 Carbon Dioxide 22 mmol/L (22-30) 03/08/20 04:50 Anion Gap 26 mmol/L 03/08/20 04:50 BUN 52 mg/dL (7-17) H 03/08/20 04:50 Creatinine 6.2 mg/dL (0.6-1.2) H 03/08/20 04:50 Estimated GFR 9 ml/min 03/08/20 04:50 BUN/Creatinine Ratio 8 % 03/08/20 04:50 Glucose 109 mg/dL (65-100) H 03/08/20 04:50 POC Glucose 96 (70-105) 03/08/20 05:26 Lactic Acid 0.90 mmol/L (0.7-2.0) 02/27/20 19:33 Calcium 9.5 mg/dL (8.4-10.2) 03/08/20 04:50 Phosphorus 6.10 mg/dL (2.5-4.5) H 03/01/20 04:37 Magnesium 2.00 mg/dL (1.7-2.3) 03/07/20 05:03 Total Bilirubin 0.50 mg/dL (0.1-1.2) 03/07/20 05:03 Direct Bilirubin 0.6 mg/dL (0-0.2) H 03/05/20 06:00 Indirect Bilirubin 0.3 mg/dL 03/05/20 06:00 AST 40 units/L (5-40) 03/07/20 05:03 ALT 19 units/L (7-56) 03/07/20 05:03 Alkaline Phosphatase 132 units/L (35-129) H 03/07/20 05:03 C-Reactive Protein 36.50 mg/dL (0.00-1.30) H 03/01/20 11:06 Serum Total Protein 6.3 g/dL (6.1-8.1) 02/26/20 04:39 Total Protein 6.7 g/dL (6.3-8.2) 03/07/20 05:03 Albumin 2.5 g/dL (3.9-5) L 03/07/20 05:03 Albumin/Globulin Ratio 0.6 % 03/07/20 05:03 Nloxb-7-Pmkjgcmiy 0.7 g/dL (0.2-0.3) H 02/26/20 04:39 Nasyf-6-Nzoidoqpe 0.8 g/dL (0.5-0.9) 02/26/20 04:39 Beta Globulins 0.4 g/dL (0.2-0.5) 02/26/20 04:39 Gamma Globulins 1.2 g/dL (0.8-1.7) 02/26/20 04:39 Abnorm Protein Band 1 see below 02/26/20 04:39 PEP Interpretation see below H 02/26/20 04:39 Triglycerides 118 mg/dL (2-149) 02/26/20 04:39 Lipase 72 units/L (13-60) H 03/04/20 19:00 HCG, Qual Negative (Negative) 02/24/20 02:53 PTH Intact 911.3 pg/mL (15-65) H 02/26/20 08:15 Urine Color Yellow (Yellow) 02/24/20 Unknown Urine Turbidity Clear (Clear) 02/24/20 Unknown Urine pH 6.0 (5.0-7.0) 02/24/20 Unknown Ur Specific [place] 1.020 (1.003-1.030) 02/24/20 Unknown Urine Protein >500 mg/dL (Negative) 02/24/20 Unknown Urine Glucose (UA) 50 mg/dL (Negative) 02/24/20 Unknown Urine Ketones Neg mg/dL (Negative) 02/24/20 Unknown Urine Blood Lg (Negative) 02/24/20 Unknown Urine Nitrite Neg (Negative) 02/24/20 Unknown Urine Bilirubin Neg (Negative) 02/24/20 Unknown Urine Urobilinogen < 2.0 mg/dL (<2.0) 02/24/20 Unknown Ur Leukocyte Esterase Neg (Negative) 02/24/20 Unknown Urine WBC (Auto) 11.0 /HPF (0.0-6.0) H 02/24/20 Unknown Urine RBC (Auto) 149.0 /HPF (0.0-6.0) 02/24/20 Unknown U Epithel Cells (Auto) 5.0 /HPF (0-13.0) 02/24/20 Unknown Urine Bacteria (Auto) 1+ /HPF (Negative) 02/24/20 Unknown Urine Mucus Few /HPF 02/24/20 Unknown Urine Creatinine 161.0 mg/dL (0.1-20.0) H 02/25/20 22:55 Protein/Creatinin Ratio 0.93 02/25/20 22:55 Urine Total Protein 150 mg/dL (5-11.8) H 02/25/20 22:55 ZINA Screen Positive (Negative) H 02/26/20 04:39 Proteinase 3 (PR3) Ab <1.0 AI (<1.0) 02/26/20 04:39 Myeloperoxidase Ab <1.0 AI (<1.0) 02/26/20 04:39 Complement C3 153 mg/dL (83-193) 02/26/20 04:39 Complement C4 35 mg/dL (15-57) 02/26/20 04:39 Hepatitis A IgM Ab Non-reactive (NonReactive) 03/03/20 12:34 Hep Bs Antigen Non-reactive (Negative) 03/03/20 12:34 Hep B Core IgM Ab Non-reactive (NonReactive) 03/03/20 12:34 Hepatitis C Antibody Non-reactive (NonReactive) 03/03/20 12:34 Blood Type AB POSITIVE 03/01/20 18:30 Antibody Screen Negative 03/01/20 18:30 Crossmatch See Detail 03/01/20 18:30 Microbiology: Microbiology 03/06/20 18:18 Peripheral/Venous Blood Culture - Preliminary NO GROWTH AFTER 24 HOURS - Diagnostic Impressions Diagnostic Impressions: Echocardiogram 02/26/20 09:11 Transthoracic Echocardiogram Indication: Cardiomegaly BP: 149/92 HR: 122 Conclusions *Global left ventricular systolic function is normal. *The estimated ejection fraction is 60-65%. *Moderate to severe concentric left ventricular hypertrophy is observed. *The left atrium is mild to moderately dilated. *The aortic valve leaflets are moderately thickened. *A mean gradient of 22.39 mmHg across the outflow tract is likely not due to but hyperdynamic flow and LVH. *There is trace tricuspid regurgitation. Findings Left Ventricle: The left ventricular chamber size is normal. Moderate to severe concentric left ventricular hypertrophy is observed. Global left ventricular systolic function is normal. The estimated ejection fraction is 60-65%. Left Atrium: The left atrium is mild to moderately dilated. Right Ventricle: The right ventricular cavity size is normal. The right ventricular global systolic function is normal. Right Atrium: The right atrial cavity size is normal. Aortic Valve: The aortic valve leaflets are moderately thickened. There is no evidence of aortic regurgitation. The mean gradient of the aortic valve is 22.39 mmHg. Mitral Valve: The mitral valve leaflets are mildly thickened. There is trace of mitral regurgitation. There is no evidence of mitral stenosis. Tricuspid Valve: There is trace tricuspid regurgitation. No pulmonary hypertension is noted. Pulmonic Valve: There is trace pulmonic regurgitation. Pericardium: There is no pericardial effusion. Aorta: There is no dilatation of the ascending aorta. There is no dilatation of the aortic root. Venous: The inferior vena cava appears normal in size. Measurements Chambers 2D Name Value Normal Range IVSd (2D) 1.8 cm (0.6 - 1.1) LVPWd (2D) 1.74 cm (0.6 - 1.1) LVIDd (2D) 4.57 cm (3.7 - 5.6) LVIDs (2D) 2.73 cm (2 - 3.8) LV FS (2D) 40.27 % - EF Teichholz (2D) 71.04 % - Ao root diameter (2D) 2.79 cm (2 - 3.7) Volumes/Mass Name Value Normal Range LA ESV SP 4CH (A/L) 54.18 ml - LA ESV SP 2CH (A/L) 61.84 ml - LA ESV BP (A/L) 58.1 ml - LA ESV BP (A/L) index 30.74 ml/m2 - LA ESV SP 4CH (MOD) 52.89 ml - LA ESV SP 2CH (MOD) 60.65 ml - LA ESV BP (MOD) 56.77 ml - LA ESV BP (MOD) index 30.04 ml/m2 - LV EDV SP 4CH (MOD) 164.2 ml - LV ESV SP 4CH (MOD) 58.04 ml - EF SP 4CH (MOD) 64.65 % - Diastolic/Systolic Function Name Value Normal Range MV E-wave Vmax 1.38 m/sec - MV deceleration time 92.78 msec - MV A-wave Vmax 1.44 m/sec - MV E:A ratio 0.95 ratio - Aortic Valve Name Value Normal Range AV Vmax 3.08 m/sec - AV VTI 36.74 cm - AV peak gradient 37.98 mmHg - AV mean gradient 22.39 mmHg - LVOT diameter 2.01 cm - LVOT Vmax 2.45 m/sec - LVOT VTI 29.85 cm - LVOT peak gradient 24.04 mmHg - LVOT mean gradient 11.11 mmHg - SV LVOT 94.73 ml - JADA (continuity Vmax) 2.52 cm2 - JADA (continuity VTI) 2.58 cm2 - Ascending Ao 2.64 cm - Mitral Valve Name Value Normal Range MV PHT 37.88 msec - MVA (PHT) 5.81 cm2 - Tricuspid Valve Name Value Normal Range IVC diameter 1.93 cm (1.2 - 2.3) Pulmonic Valve/Qp:Qs Name Value Normal Range PV Vmax 2.83 m/sec - PV VTI 45.88 cm - PV peak gradient 32.06 mmHg - PV mean gradient 16.11 mmHg - NE end-diastolic Vmax 0.81 m/sec - RVOT Vmax 1.82 m/sec - RVOT VTI 25.12 cm - RVOT peak gradient 13.3 mmHg - Franks/IV: Voiding Method External Female Catheter IV Catheter Type [Right VAS Cath Internal Jugular] IV Catheter Type [Left Upper INT / Saline Lock arm] IV Catheter Type [Right Upper INT / Saline Lock arm] IV Catheter Type [Right INT / Saline Lock Forearm] IV Catheter Type [Right Wrist] Peripheral IV IV Catheter Type [Right Peripheral IV Antecubital] Active Medications - Current Medications Current Medications: Generic Name Dose Route Start Last Admin Trade Name Freq PRN Reason Stop Dose Admin Acetaminophen 650 mg 02/26/20 16:23 03/08/20 08:14 Tylenol PO 650 mg Q4H PRN Administration Pain, Mild (1-3)/ Temp >100. Albuterol 2.5 mg 02/27/20 17:55 Proventil IH Q4HRT PRN Shortness Of Breath Albuterol/Ipratropium 1 ampul 02/28/20 12:17 03/08/20 08:09 Duoneb *Not For Prn Use* IH 1 ampul Q6HRT INDU Administration Amlodipine Besylate 10 mg 02/28/20 10:00 03/07/20 11:53 Amlodipine PO 10 mg QDAY INDU Administration Lipase/Protease/Amylase 1 each 03/01/20 08:[address] 10,500 Unit FEEDTUBE PRN PRN For Clogged Feeding Tube Dextrose 50 ml 02/29/20 08:00 03/01/20 00:20 D50w (25gm) Syringe IV 10 ml Q30MIN PRN Administration HYPOGLYCEMIA Protocol Fentanyl 50 mcg 02/29/20 15:35 03/04/20 20:35 Sublimaze IV 50 mcg Q10MIN PRN Administration ANALGESIA Heparin Sodium (Porcine) 5,000 unit 02/24/20 14:00 03/08/20 05:10 Heparin SUB-Q 5,000 unit Q8HR [facility] Administration Hydralazine HCl 25 mg 03/04/20 14:00 03/08/20 05:12 Apresoline PO Not Given Q8HR [facility] Hydrophilic Ointment 1 applic 02/29/20 15:35 Vaseline Lip Therapy TP Q2HR PRN Dry Lips Fentanyl Citrate 2,000 mcg in 100 mls @ 4.55 mls/hr 02/29/20 16:00 03/08/20 05:58 Fentanyl Drip Premix IV 2 mcg/kg/hr TITR INDU 9.1 mls/hr Administration Protocol 1 MCG/KG/HR MEROPENEM/NS 1 GRAM/100 ML 1 gram in 100 mls @ 100 mls/hr 03/03/20 18:00 03/07/20 18:13 Merrem/Ns 1 Gram/100 Ml IV 100 mls/hr QPM INDU Administration Protocol Sodium Chloride 100 mls @ 999 mls/hr 03/06/20 13:00 Nacl 0.9% IV NIKOLAY PRN Hypotension Labetalol HCl 10 mg 02/28/20 09:00 03/05/20 04:10 Labetalol IV 10 mg Q4H PRN Administration Hypertension Lansoprazole 30 mg 03/06/20 10:00 03/07/20 11:53 Prevacid Solutab FEEDTUBE 30 mg QDAY INDU Administration Lorazepam 4 mg 03/06/20 11:00 03/07/20 18:12 Ativan IV 4 mg Q4H PRN Administration AGITATION Metoprolol Tartrate 25 mg 02/28/20 10:00 03/07/20 21:28 Metoprolol PO 25 mg BID INDU Administration Multi-Ingred Cream/Lotion/Oil/Oint 1 applic 02/29/20 15:35 Artificial Tears Ophth Oint OU Q4HR PRN Dry Eye(s) Ondansetron HCl 4 mg 02/24/20 06:45 02/25/20 23:33 Zofran IV 4 mg Q8H PRN Administration Nausea And Vomiting Quetiapine Fumarate 100 mg 03/06/20 10:00 03/07/20 11:53 Seroquel PO 100 mg QAM INDU Administration Quetiapine Fumarate 200 mg 03/06/20 22:00 03/07/20 21:27 Seroquel PO 200 mg QHS INDU Administration Scopolamine 1 each 03/04/20 16:00 03/07/20 11:54 Transderm-Scop TD 1 each Q3D INDU Administration Simple Syrup 15 ml 03/01/20 08:46 Simple Syrup FEEDTUBE PRN PRN Hypoglycemia Simple Syrup 30 ml 03/01/20 08:46 Simple Syrup FEEDTUBE PRN PRN Hypoglycemia Sodium Bicarbonate 325 mg 03/01/20 08:46 Sodium Bicarbonate FEEDTUBE PRN PRN For Clogged Feeding Tube Sodium Chloride 10 ml 02/24/20 10:00 03/07/20 22:30 Sodium Chloride Flush Syringe 10 Ml IV 10 ml BID INDU Administration Sodium Chloride 10 ml 02/24/20 06:45 Sodium Chloride Flush Syringe 10 Ml IV PRN PRN LINE FLUSH Tamsulosin HCl 0.4 mg 03/01/20 17:00 03/07/20 11:53 Flomax PO 0.4 mg QDAY INDU Administration Nutrition/Malnutrition Assess - Dietary Evaluation Nutrition/Malnutrition Findings: Nutrition Notes Start: 02/24/20 13:42 Freq: Status: Active Protocol: Document 03/06/20 13:32 [email or web address] (Rec: 03/06/20 13:41 [email or web address]) Co-Sign 03/06/20 13:32 Nutrition Notes Initial or Follow up Reassessment Current Diagnosis Acute Kidney Injury,Sepsis, Hypertension,Respiratory Failure,Hyperlipidemia Other Pertinent Diagnosis Acute pancreatitis, HD Current Diet Nepro 1.8 at 35ml/hr Labs/Tests BUN 70 Cr 7.1 BG 113 Pertinent Medications Reviewed Height 5 ft 1 in Weight 91 kg [place] Body Weight (kg) 47.72 BMI 37.9 Weight Status Obese Subjective/Other Information F/U for stable TF. Pt TF running at goal rate and tolerating. Percent of energy/protein needs met: 100%/70% Burn Absent Trauma Absent GI Symptoms None Current % PO Negligible Minimum of two criteria No Fluid Accumulation Moderate to Severe (severe) #2 Nutrition Diagnosis Inadequate oral intake Diagnosis Progress(for reassessment Continues documentation) #1 Nutrition Diagnosis Food and nutrition-related knowledge deficit Diagnosis Progress(for reassessment Continues documentation) Is patient on ventilator? Yes Is Patient Ambulatory and/or Out of Bed No REE-([facility]-confined to bed) 1823.604 Kcal/Kg value to use for calculation 16 Approximate Energy Requirements Using 1456 kcal/Kg Calculation Used for Recommendations Kcal/kg Additional Notes Pro: 96g (>2g/kg IBW) Fluid: 1ml/kcal Nutrition Intervention Change Diet Order: Continue TF Nutrition Support: Nepro 1.8 at 35ml/hr Flush 150ml q4h Kcal 1,512 Protein (gm) 68 Fluid (mL) 611 Goal #1 TF tolerance Goal #2 Meet at least 80% of energy and protein needs via TF Anticipated Discharge Needs: Undetermined at this time Follow-Up By: 03/11/20 Additional Comments F/U stable TF
[2020-03-08] MEDS: TAMSULOSIN 0.4 MG CAP PO SCH (09:40)
[2020-03-08] MEDS: LANSOPRAZOLE 30 MG SOLUTAB FEEDTUBE SCH (09:41)
[2020-03-08] MEDS: QUEtiapine 100 MG TAB PO SCH (09:41)
[2020-03-08] MEDS: amLODIPine 10 MG TAB PO SCH (10:47)
[2020-03-08] MEDS: METOPROLOL TARTRATE 25 MG TAB PO SCH ×2 (10:52→21:44)
--- NOTE | 2020-03-08 11:59 | Gastroenterology Progress Note ---
Assessment and Plan (1) Acute pancreatitis - - unclear etiology for pancreatitis. 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 No bile duct dilation noted on imaging. H/o alcohol use. - multi-organ failure. - remains critically ill - on HD. - CT noncontrast on 03/05 with worsening inflammation but no necrosis. - persistent recurrent fever. - wbc trending down. No cbc done this morning. Rec - cont with supportive care - nutrition via [place]. - may need MRCP at some point in the future but no need urgently. - ID on board. currently on meropenem. . (2) Altered mental status - remains intubated and sedated. - will follow. Subjective Date of service: 03/08/20 Principal diagnosis: HTNsive urgency; Morbid obesity; Ac. pancreatitis; Abdominal pain Interval history: No acute events. Continues to have fever. Remains intubated and sedated. Objective - Constitutional Vitals: Temp Pulse Resp BP Pulse Ox 101.4 F H 95 H 31 H 100/51 98 03/08/20 08:00 03/08/20 10:52 03/08/20 10:00 03/08/20 10:52 03/08/20 10:00 General appearance: no acute distress, obese - Respiratory Respiratory effort: other (on the vent) - Cardiovascular Rhythm: regular Heart Sounds: Present: S1 & S2 - Gastrointestinal General gastrointestinal: Present: soft, distended - Integumentary Integumentary: Present: warm - Neurologic Neurological: other (sedated) - Labs CBC & Chem 7: 03/07/20 05:03 03/08/20 04:50 Labs: Laboratory Results - last 24 hr 03/07/20 03/07/20 03/07/20 12:08 18:05 23:29 Sodium Potassium Chloride Carbon Dioxide Anion Gap BUN Creatinine Estimated GFR BUN/Creatinine Ratio Glucose POC Glucose 114 H 111 H 118 H Calcium 03/08/20 03/08/20 04:50 05:26 Sodium 140 Potassium 3.9 Chloride 95.5 L Carbon Dioxide 22 Anion Gap 26 BUN 52 H Creatinine 6.2 H Estimated GFR 9 BUN/Creatinine Ratio 8 Glucose 109 H POC Glucose 96 Calcium 9.5
--- NOTE | 2020-03-08 13:08 | Progress Note ---
Assessment and Plan Cultures: Urine culture grew 10-100,000 usual xavier. Blood culture 02/26/2020 no growth 02/29/2020 sputum culture: rare usual xavier 03/06/2020 blood culture: no growth Assessment: 39 years old female with history of hypertension, previous kidney stone, hyperlipidemia and obesity admitted on 02/24/2020 due to a week history of severe epigastric abdominal pain radiated to the right flank and back: #Acute sepsis: Likely secondary to severe pancreatitis and related complications. Remains critically ill. #Acute severe pancreatitis: Unclear etiology. Initial non-contrasted CT showed no evidence of necrosis or pseudocyst or abscess formation. Repeat CT 03/05 with interval worsening of acute pancreatitis without clear evidence of necrosis, however was done without IV contrast due to her renal function. #Acute renal failure: now requiring dialysis. Nephrology on board. #Acute respiratory hypoxic failure: on the vent. #?Alcohol abuse Recommendations: -continue with IV Meropenem, renally dosed, D6 today. Plan to stop once clinically better / WBC better -ongoing fevers likely to due severe pancreatitis -f/u blood cultures from 03/06/2020 Louie Graves MD, FACP [facility] ([facility] C: [phone] O: [phone] F: [phone] Subjective Date of service: 03/08/20 Principal diagnosis: HTNsive urgency; Morbid obesity; Ac. pancreatitis; Abdominal pain Interval history: Remains febrile. Sedated, intubated on the vent. Objective - Exam Narrative Exam: Physical Exam: Constitutional: sedated, intubated, on the vent Head, Ears, Nose: Normocephalic, atraumatic. External ears, nose normal Eyes: Conjunctivae/corneas clear. No icterus. No ptosis. Neck: intubated Oral: intubated Cardiovascular: S1, S2 + Respiratory: AE fair but reduced in the bases GI: distended, bowel sounds + Musculoskeletal: No pedal edema, no cyanosis. HD cath + Skin: No rash or abscess Hem/Lymphatic: No palpable cervical or supraclavicular nodes. No lymphangitis Psych: no agitation, calm Neurological: sedated, intubated, on the vent, exam limited - Constitutional Vitals: Vital Signs Temp Pulse Resp BP Pulse Ox 101.4 F H 98 H 26 H 98/46 98 03/08/20 08:00 03/08/20 12:10 03/08/20 12:10 03/08/20 12:10 03/08/20 12:10 Temperature -Last 24 Hours Temperature 101.4 F Temperature 100.1 F Temperature 100.9 F Temperature 100.7 F Temperature 99.5 F - Labs CBC & Chem 7: 03/07/20 05:03 03/08/20 04:50 Labs: Abnormal lab results 03/07/20 03/07/20 03/08/20 Range/Units 18:05 23:29 04:50 Chloride 95.5 L (98-107) mmol/L BUN 52 H (7-17) mg/dL Creatinine 6.2 H (0.6-1.2) mg/dL Glucose 109 H (65-100) mg/dL POC Glucose 111 H 118 H (70-105)
--- NOTE | 2020-03-08 15:46 | Progress Note ---
Assessment and Plan Acute Hypoxemic Respiratory Failure on MVS Severe Sepsis Acute Toxic-Metabolic Encephalopathy Hypertensive urgency Morbid obesity Acute pancreatitis, abdominal pain Medical non compliance Oropharyngeal Dysphagia - continue scopolamine patch but add Robinul for better secretion control - continue HD/UF for toxin and volume clearance - repeat CXR in am - continue care as below otherwise; - continue daily SAT and SBT assessment as tolerated - continue fentanyl for sedation +/- propofol - accuchecks with glycemic control per SSI (While critically ill target blood glucose of 140-180 mg/dL; avoid hypoglycemia) - sedation prn for target RASS -1 to -2 - continue to wean supplemental oxygen for target O2 sat's > 90% acutely - VAP bundle addressed - continue lung protective strategies - continue bronchodilators with pulmonary hygiene per RT - wean per pulmonary driven protocols otherwise - continue enteral nutritiuon at goal rate as tolerated - completed AB's (Zosyn) per ID rec's - JUANIS per gum cook - Evaluation for sleep apnea as an outpatient - VTE prophylaxis - prn Analgesia per CPOT score - avoid nephrotoxins, renally dose all medications - Maintenance of sleep-wake cycle, avoid delirium - G.I. & VTE prophylaxis - PT/OT/ROM exercises - mobility protocols for pressure ulcer prophylaxis - Monitor hemodynamics closely - continue other care per attending / other consultants - discharge planning ongoing concurrently ..... re-evaluate in am & prn CONDITION: CRITICAL PROGNOSIS: GUARDED CODE STATUS: FULL CODE The high probability of a clinically significant, sudden or life-threatening deterioration of the [respiratory, cardiovascular & GI] system(s) required my full and direct attention, intervention and personal management. The aggregate critical care time was [35] minutes without overlap. Time includes spent on; [x] Data Review and interpretation [x] Patient assessment and monitoring of vital signs [x] Documentation [x] Medication orders and management Subjective Date of service: 03/08/20 Principal diagnosis: HTNsive urgency; Morbid obesity; Ac. pancreatitis; Abdominal pain Interval history: Patient is seen today for: Hypertensive urgency; Morbid obesity; Acute lopez creatitis; abdominal pain; Medical non compliance; Acute Toxic Metabolic Encephalopathy Seen and examined at bedside; 24hour events reviewed; nursing and respiratory care staff consulted; no adverse overnight events reported to me; resting peacefully in bed; remains on MVS; oral secretions increased; weaning tenuously today and placed back on full support Objective Vital Signs - 12hr 03/08/20 03/08/20 03/08/20 04:00 04:30 05:00 Temperature 100.1 F H Pulse Rate 100 H 97 H 95 H Pulse Rate [ Anterior Bilateral Throughout] Pulse Rate [ From Monitor] Respiratory 20 20 20 Rate Respiratory Rate [Anterior Bilateral Throughout] Blood Pressure 103/59 99/53 97/51 O2 Sat by Pulse 100 99 99 Oximetry 03/08/20 03/08/20 03/08/20 05:12 05:22 05:30 Temperature Pulse Rate 91 H 92 H 94 H Pulse Rate [ 91 H Anterior Bilateral Throughout] Pulse Rate [ From Monitor] Respiratory 20 Rate Respiratory 20 Rate [Anterior Bilateral Throughout] Blood Pressure 95/50 91/48 103/54 O2 Sat by Pulse 99 99 Oximetry 03/08/20 03/08/20 03/08/20 06:00 06:30 07:00 Temperature Pulse Rate 91 H 92 H 92 H Pulse Rate [ Anterior Bilateral Throughout] Pulse Rate [ From Monitor] Respiratory 20 20 20 Rate Respiratory Rate [Anterior Bilateral Throughout] Blood Pressure 100/48 99/50 98/50 O2 Sat by Pulse 100 100 100 Oximetry 03/08/20 03/08/20 03/08/20 07:30 08:00 08:09 Temperature 101.4 F H Pulse Rate 94 H 99 H Pulse Rate [ 98 H Anterior Bilateral Throughout] Pulse Rate [ 92 H From Monitor] Respiratory 20 20 Rate Respiratory 26 H Rate [Anterior Bilateral Throughout] Blood Pressure 96/48 101/53 O2 Sat by Pulse 99 99 Oximetry 03/08/20 03/08/20 03/08/20 08:10 08:30 09:00 Temperature Pulse Rate 95 H 107 H 101 H Pulse Rate [ Anterior Bilateral Throughout] Pulse Rate [ From Monitor] Respiratory 28 H 31 H Rate Respiratory Rate [Anterior Bilateral Throughout] Blood Pressure 101/53 115/68 103/56 O2 Sat by Pulse 99 96 98 Oximetry 03/08/20 03/08/20 03/08/20 09:30 10:00 10:30 Temperature Pulse Rate 98 H 97 H 97 H Pulse Rate [ Anterior Bilateral Throughout] Pulse Rate [ From Monitor] Respiratory 31 H 31 H 31 H Rate Respiratory Rate [Anterior Bilateral Throughout] Blood Pressure 98/50 97/50 103/48 O2 Sat by Pulse 98 98 99 Oximetry 03/08/20 03/08/20 03/08/20 10:47 10:52 11:00 Temperature Pulse Rate 95 H 95 H 96 H Pulse Rate [ Anterior Bilateral Throughout] Pulse Rate [ From Monitor] Respiratory 28 H Rate Respiratory Rate [Anterior Bilateral Throughout] Blood Pressure 99/51 100/51 94/49 O2 Sat by Pulse 99 Oximetry 03/08/20 03/08/20 03/08/20 11:30 12:00 12:10 Temperature 99.7 F H Pulse Rate 86 84 98 H Pulse Rate [ Anterior Bilateral Throughout] Pulse Rate [ 84 From Monitor] Respiratory 27 H 26 H 26 H Rate Respiratory Rate [Anterior Bilateral Throughout] Blood Pressure 98/49 98/46 98/46 O2 Sat by Pulse 99 99 98 Oximetry 03/08/20 03/08/20 03/08/20 12:30 13:00 13:30 Temperature Pulse Rate 86 89 92 H Pulse Rate [ Anterior Bilateral Throughout] Pulse Rate [ From Monitor] Respiratory 25 H 29 H 24 Rate Respiratory Rate [Anterior Bilateral Throughout] Blood Pressure 99/47 91/48 95/48 O2 Sat by Pulse 98 98 98 Oximetry 03/08/20 03/08/20 03/08/20 13:36 14:00 14:30 Temperature Pulse Rate 92 H 93 H 97 H Pulse Rate [ 98 H Anterior Bilateral Throughout] Pulse Rate [ From Monitor] Respiratory 29 H 26 H Rate Respiratory 26 H Rate [Anterior Bilateral Throughout] Blood Pressure 95/48 108/62 123/74 O2 Sat by Pulse 98 97 Oximetry Constitutional: no acute distress, other (Obese female with mildly increased respiratory effort at rest on MVS) Eyes: non-icteric ENT: oropharynx moist, other (ETT 24 cm TY) Neck: supple, no lymphadenopathy, no JVD Effort: normal Ascultation: Bilateral: diminished breath sounds, rhonchi Percussion: Bilateral: not dull Cardiovascular: regular rate and rhythm, other (S1,S2) Gastrointestinal: normoactive bowel sounds, hypoactive bowel sounds, soft, non-tender, other (distended but soft) Integumentary: normal Extremities: no cyanosis, no edema, pink and warm, pulses normal Neurologic: normal mental status, non-focal exam (grossly), pupils equal and round, CN II-XII normal, motor strength normal and Psychiatric: mood appropriate, affect normal CBC and BMP: 03/07/20 05:03 03/08/20 04:50 ABG, PT/INR, D-dimer: ABG ABG pH 7.380 (7.320-7.450) 03/06/20 04:41 POC ABG pCO2 46.4 mmHg (32.0-48.0) 03/06/20 04:41 ABG pCO2 43.1 mm Hg 03/05/20 05:04 POC ABG pO2 64.9 mmHg (83-108) L 03/06/20 04:41 ABG pO2 62.5 mm Hg (80.0-90.0) L 03/05/20 05:04 POC ABG HCO3 26.8 03/06/20 04:41 ABG O2 Saturation 92.1 % (95.0-99.0) L 03/05/20 05:04 PT/INR, D-dimer PT 13.7 Sec. (12.2-14.9) 02/25/20 03:49 INR 1.03 (0.87-1.13) 02/25/20 03:49 Abnormal lab findings: Abnormal Labs 02/24/20 02/24/20 02/24/20 02:53 02:53 Unknown WBC 12.7 H Hgb 10.0 L RBC Hct MCV 70 L MCH 22 L RDW 17.9 H Plt Count 458 H Lymph % (Auto) 8.9 L Lymph # 1.1 L [place] # Lymph # (Auto) [place] # (Auto) Seg Neutrophils % 84.2 H Seg Neutrophils # 10.7 H Seg Neuts % (Manual) Lymphocytes % (Manual) Nucleated RBC % Seg Neutrophils # Man Lymphocytes # (Manual) Monocytes # (Manual) Eosinophils # (Manual) Basophils # (Manual) ABG pH POC ABG pCO2 POC ABG pO2 ABG pO2 ABG HCO3 ABG O2 Saturation ABG Base Excess ABG Hemoglobin ABG Oxyhemoglobin Oxyhemoglobin Sodium Potassium Chloride Carbon Dioxide BUN 27 H Creatinine 1.7 H Glucose 118 H POC Glucose Calcium Phosphorus Magnesium Direct Bilirubin Alkaline Phosphatase Albumin C-Reactive Protein Vicxy-3-Vjqlpgady PEP Interpretation Lipase 232 H PTH Intact Urine WBC (Auto) 11.0 H Urine Creatinine Urine Total Protein ZINA Screen Crossmatch 02/25/20 02/25/20 02/25/20 00:03 03:49 03:49 WBC 29.1 H Hgb 9.4 L RBC Hct 30.2 L MCV 71 L MCH 22 L RDW 18.3 H Plt Count 525 H Lymph % (Auto) 3.4 L Lymph # 1.0 L [place] # 1.0 H Lymph # (Auto) [place] # (Auto) Seg Neutrophils % Seg Neutrophils # 26.4 H Seg Neuts % (Manual) Lymphocytes % (Manual) Nucleated RBC % Seg Neutrophils # Man Lymphocytes # (Manual) Monocytes # (Manual) Eosinophils # (Manual) Basophils # (Manual) ABG pH POC ABG pCO2 POC ABG pO2 ABG pO2 ABG HCO3 ABG O2 Saturation ABG Base Excess ABG Hemoglobin ABG Oxyhemoglobin Oxyhemoglobin Sodium Potassium Chloride Carbon Dioxide BUN Creatinine Glucose POC Glucose 126 H Calcium Phosphorus Magnesium Direct Bilirubin Alkaline Phosphatase Albumin C-Reactive Protein Ahvco-1-Idusjoenh PEP Interpretation Lipase 1486 H PTH Intact Urine WBC (Auto) Urine Creatinine Urine Total Protein ZINA Screen Crossmatch 02/25/20 02/25/20 02/25/20 03:49 05:55 22:55 WBC Hgb RBC Hct MCV MCH RDW Plt Count Lymph % (Auto) Lymph # [place] # Lymph # (Auto) [place] # (Auto) Seg Neutrophils % Seg Neutrophils # Seg Neuts % (Manual) Lymphocytes % (Manual) Nucleated RBC % Seg Neutrophils # Man Lymphocytes # (Manual) Monocytes # (Manual) Eosinophils # (Manual) Basophils # (Manual) ABG pH POC ABG pCO2 POC ABG pO2 ABG pO2 ABG HCO3 ABG O2 Saturation ABG Base Excess ABG Hemoglobin ABG Oxyhemoglobin Oxyhemoglobin Sodium 136 L Potassium Chloride 97.9 L Carbon Dioxide 21 L BUN 39 H Creatinine 3.0 H D Glucose 118 H POC Glucose 124 H Calcium Phosphorus Magnesium Direct Bilirubin Alkaline Phosphatase Albumin 3.6 L C-Reactive Protein Cxhwl-7-Uymlwszwr PEP Interpretation Lipase PTH Intact Urine WBC (Auto) Urine Creatinine 161.0 H Urine Total Protein 150 H ZINA Screen Crossmatch 02/26/20 02/26/20 02/26/20 04:39 04:39 04:39 WBC 30.3 H Hgb 9.1 L RBC Hct 29.8 L MCV 71 L MCH 22 L RDW 18.2 H Plt Count 530 H Lymph % (Auto) Lymph # [place] # Lymph # (Auto) [place] # (Auto) Seg Neutrophils % Seg Neutrophils # Seg Neuts % (Manual) Lymphocytes % (Manual) Nucleated RBC % Seg Neutrophils # Man Lymphocytes # (Manual) Monocytes # (Manual) Eosinophils # (Manual) Basophils # (Manual) ABG pH POC ABG pCO2 POC ABG pO2 ABG pO2 ABG HCO3 ABG O2 Saturation ABG Base Excess ABG Hemoglobin ABG Oxyhemoglobin Oxyhemoglobin Sodium Potassium Chloride Carbon Dioxide 19 L BUN 44 H Creatinine 3.1 H Glucose 106 H POC Glucose Calcium 8.1 L Phosphorus Magnesium Direct Bilirubin Alkaline Phosphatase Albumin C-Reactive Protein Xvjcx-6-Aixthyiyo PEP Interpretation Lipase 540 H PTH Intact Urine WBC (Auto) Urine Creatinine Urine Total Protein ZINA Screen Positive H Crossmatch 02/26/20 02/26/20 02/26/20 04:39 08:15 12:14 WBC Hgb RBC Hct MCV MCH RDW Plt Count Lymph % (Auto) Lymph # [place] # Lymph # (Auto) [place] # (Auto) Seg Neutrophils % Seg Neutrophils # Seg Neuts % (Manual) Lymphocytes % (Manual) Nucleated RBC % Seg Neutrophils # Man Lymphocytes # (Manual) Monocytes # (Manual) Eosinophils # (Manual) Basophils # (Manual) ABG pH POC ABG pCO2 POC ABG pO2 ABG pO2 ABG HCO3 ABG O2 Saturation ABG Base Excess ABG Hemoglobin ABG Oxyhemoglobin Oxyhemoglobin Sodium Potassium Chloride Carbon Dioxide BUN Creatinine Glucose POC Glucose 112 H Calcium Phosphorus Magnesium Direct Bilirubin Alkaline Phosphatase Albumin 2.8 L C-Reactive Protein Hagvv-4-Djihlydlg 0.7 H PEP Interpretation see below H Lipase PTH Intact 911.3 H Urine WBC (Auto) Urine Creatinine Urine Total Protein ZINA Screen Crossmatch 02/27/20 02/27/20 02/27/20 04:18 04:18 04:18 WBC 26.8 H Hgb 7.9 L RBC Hct 26.3 L MCV 70 L MCH 21 L RDW 18.0 H Plt Count 513 H Lymph % (Auto) Lymph # [place] # Lymph # (Auto) [place] # (Auto) Seg Neutrophils % Seg Neutrophils # Seg Neuts % (Manual) Lymphocytes % (Manual) Nucleated RBC % Seg Neutrophils # Man Lymphocytes # (Manual) Monocytes # (Manual) Eosinophils # (Manual) Basophils # (Manual) ABG pH POC ABG pCO2 POC ABG pO2 ABG pO2 ABG HCO3 ABG O2 Saturation ABG Base Excess ABG Hemoglobin ABG Oxyhemoglobin Oxyhemoglobin Sodium 135 L 135 L Potassium Chloride Carbon Dioxide 15 L 16 L BUN 50 H 51 H Creatinine 3.4 H 3.4 H Glucose POC Glucose Calcium 7.4 L 7.5 L Phosphorus Magnesium Direct Bilirubin Alkaline Phosphatase Albumin 3.0 L C-Reactive Protein 37.30 H Wdzyi-7-Rhxkawnlw PEP Interpretation Lipase 177 H PTH Intact Urine WBC (Auto) Urine Creatinine Urine Total Protein ZINA Screen Crossmatch 02/27/20 02/28/20 02/28/20 16:57 05:07 05:07 WBC Hgb RBC Hct MCV MCH RDW Plt Count Lymph % (Auto) Lymph # [place] # Lymph # (Auto) [place] # (Auto) Seg Neutrophils % Seg Neutrophils # Seg Neuts % (Manual) Lymphocytes % (Manual) Nucleated RBC % Seg Neutrophils # Man Lymphocytes # (Manual) Monocytes # (Manual) Eosinophils # (Manual) Basophils # (Manual) ABG pH 7.336 L POC ABG pCO2 POC ABG pO2 ABG pO2 57.0 L ABG HCO3 16.4 L ABG O2 Saturation 88.2 L ABG Base Excess -8.4 L ABG Hemoglobin 10.4 L ABG Oxyhemoglobin Oxyhemoglobin 85.7 L Sodium Potassium Chloride Carbon Dioxide 14 L BUN 60 H Creatinine 4.2 H Glucose POC Glucose Calcium 8.2 L Phosphorus Magnesium Direct Bilirubin Alkaline Phosphatase Albumin C-Reactive Protein Kdpdl-8-Lchjtoclq PEP Interpretation Lipase 155 H PTH Intact Urine WBC (Auto) Urine Creatinine Urine Total Protein ZINA Screen Crossmatch 02/28/20 02/28/20 02/28/20 05:56 11:05 11:05 WBC Hgb RBC Hct MCV MCH RDW Plt Count Lymph % (Auto) Lymph # [place] # Lymph # (Auto) [place] # (Auto) Seg Neutrophils % Seg Neutrophils # Seg Neuts % (Manual) Lymphocytes % (Manual) Nucleated RBC % Seg Neutrophils # Man Lymphocytes # (Manual) Monocytes # (Manual) Eosinophils # (Manual) Basophils # (Manual) ABG pH 7.317 L POC ABG pCO2 POC ABG pO2 76.2 L ABG pO2 ABG HCO3 16.4 L ABG O2 Saturation ABG Base Excess -8.9 L ABG Hemoglobin 6.6 L 7.6 L ABG Oxyhemoglobin Oxyhemoglobin 94.6 L Sodium Potassium Chloride Carbon Dioxide BUN Creatinine Glucose POC Glucose 115 H Calcium Phosphorus Magnesium Direct Bilirubin Alkaline Phosphatase Albumin C-Reactive Protein Jifni-6-Lxqtezkzy PEP Interpretation Lipase PTH Intact Urine WBC (Auto) Urine Creatinine Urine Total Protein ZINA Screen Crossmatch 02/28/20 02/28/20 02/29/20 17:39 19:39 05:43 WBC Hgb RBC Hct MCV MCH RDW Plt Count Lymph % (Auto) Lymph # [place] # Lymph # (Auto) [place] # (Auto) Seg Neutrophils % Seg Neutrophils # Seg Neuts % (Manual) Lymphocytes % (Manual) Nucleated RBC % Seg Neutrophils # Man Lymphocytes # (Manual) Monocytes # (Manual) Eosinophils # (Manual) Basophils # (Manual) ABG pH 7.300 L POC ABG pCO2 POC ABG pO2 ABG pO2 117.5 H ABG HCO3 15.0 L ABG O2 Saturation ABG Base Excess -10.5 L ABG Hemoglobin 6.4 L ABG Oxyhemoglobin Oxyhemoglobin Sodium Potassium Chloride Carbon Dioxide BUN Creatinine Glucose POC Glucose 120 H 66 L Calcium Phosphorus Magnesium Direct Bilirubin Alkaline Phosphatase Albumin C-Reactive Protein Ofgzu-8-Wwmqjeqyt PEP Interpretation Lipase PTH Intact Urine WBC (Auto) Urine Creatinine Urine Total Protein ZINA Screen Crossmatch 02/29/20 02/29/20 02/29/20 05:45 12:04 12:31 WBC Hgb RBC Hct MCV MCH RDW Plt Count Lymph % (Auto) Lymph # [place] # Lymph # (Auto) [place] # (Auto) Seg Neutrophils % Seg Neutrophils # Seg Neuts % (Manual) Lymphocytes % (Manual) Nucleated RBC % Seg Neutrophils # Man Lymphocytes # (Manual) Monocytes # (Manual) Eosinophils # (Manual) Basophils # (Manual) ABG pH 7.212 L POC ABG pCO2 POC ABG pO2 ABG pO2 ABG HCO3 ABG O2 Saturation ABG Base Excess ABG Hemoglobin 7.4 L ABG Oxyhemoglobin Oxyhemoglobin Sodium Potassium Chloride Carbon Dioxide BUN Creatinine Glucose POC Glucose 65 L 64 L Calcium Phosphorus Magnesium Direct Bilirubin Alkaline Phosphatase Albumin C-Reactive Protein Lxkns-0-Zzkhawnse PEP Interpretation Lipase PTH Intact Urine WBC (Auto) Urine Creatinine Urine Total Protein ZINA Screen Crossmatch 02/29/20 02/29/20 02/29/20 14:22 14:22 18:20 WBC Hgb RBC Hct MCV MCH RDW Plt Count Lymph % (Auto) Lymph # [place] # Lymph # (Auto) [place] # (Auto) Seg Neutrophils % Seg Neutrophils # Seg Neuts % (Manual) Lymphocytes % (Manual) Nucleated RBC % Seg Neutrophils # Man Lymphocytes # (Manual) Monocytes # (Manual) Eosinophils # (Manual) Basophils # (Manual) ABG pH POC ABG pCO2 POC ABG pO2 ABG pO2 ABG HCO3 ABG O2 Saturation ABG Base Excess ABG Hemoglobin ABG Oxyhemoglobin Oxyhemoglobin Sodium Potassium Chloride Carbon Dioxide 16 L BUN 77 H Creatinine 4.7 H Glucose POC Glucose 66 L Calcium Phosphorus 7.50 H Magnesium 2.60 H Direct Bilirubin Alkaline Phosphatase Albumin 2.3 L C-Reactive Protein Bvfaj-2-Cxtlqoibs PEP Interpretation Lipase PTH Intact Urine WBC (Auto) Urine Creatinine Urine Total Protein ZINA Screen Crossmatch 02/29/20 03/01/20 03/01/20 18:24 04:05 04:37 WBC Hgb RBC Hct MCV MCH RDW Plt Count Lymph % (Auto) Lymph # [place] # Lymph # (Auto) [place] # (Auto) Seg Neutrophils % Seg Neutrophils # Seg Neuts % (Manual) Lymphocytes % (Manual) Nucleated RBC % Seg Neutrophils # Man Lymphocytes # (Manual) Monocytes # (Manual) Eosinophils # (Manual) Basophils # (Manual) ABG pH 7.271 L 7.347 L POC ABG pCO2 POC ABG pO2 ABG pO2 133.5 H ABG HCO3 15.8 L ABG O2 Saturation ABG Base Excess -8.9 L ABG Hemoglobin 7.2 L 7.6 L ABG Oxyhemoglobin 93.4 L Oxyhemoglobin Sodium Potassium Chloride 107.6 H Carbon Dioxide 14 L BUN 83 H Creatinine 5.6 H Glucose POC Glucose Calcium Phosphorus 6.10 H Magnesium 2.40 H Direct Bilirubin Alkaline Phosphatase Albumin C-Reactive Protein Qmsbk-4-Jvkfcdohi PEP Interpretation Lipase PTH Intact Urine WBC (Auto) Urine Creatinine Urine Total Protein ZINA Screen Crossmatch 03/01/20 03/01/20 03/01/20 11:06 16:22 18:12 WBC 30.5 H Hgb 6.2 L RBC 2.92 L Hct 20.8 L MCV 71 L MCH 21 L RDW 18.2 H Plt Count 560 H Lymph % (Auto) Lymph # [place] # Lymph # (Auto) [place] # (Auto) Seg Neutrophils % Seg Neutrophils # Seg Neuts % (Manual) 79.0 H Lymphocytes % (Manual) 3.0 L Nucleated RBC % Seg Neutrophils # Man 24.1 H Lymphocytes # (Manual) 0.9 L Monocytes # (Manual) 2.1 H Eosinophils # (Manual) Basophils # (Manual) ABG pH POC ABG pCO2 POC ABG pO2 ABG pO2 ABG HCO3 ABG O2 Saturation ABG Base Excess ABG Hemoglobin ABG Oxyhemoglobin Oxyhemoglobin Sodium Potassium 5.3 H D Chloride Carbon Dioxide 11 L BUN 77 H Creatinine 5.0 H Glucose 54 L POC Glucose 121 H Calcium Phosphorus Magnesium Direct Bilirubin Alkaline Phosphatase Albumin 3.0 L C-Reactive Protein 36.50 H Wdrut-1-Qhmhtmyvx PEP Interpretation Lipase PTH Intact Urine WBC (Auto) Urine Creatinine Urine Total Protein ZINA Screen Crossmatch 03/01/20 03/01/20 03/01/20 18:30 23:37 Unknown WBC Hgb RBC Hct MCV MCH RDW Plt Count Lymph % (Auto) Lymph # [place] # Lymph # (Auto) [place] # (Auto) Seg Neutrophils % Seg Neutrophils # Seg Neuts % (Manual) Lymphocytes % (Manual) Nucleated RBC % Seg Neutrophils # Man Lymphocytes # (Manual) Monocytes # (Manual) Eosinophils # (Manual) Basophils # (Manual) ABG pH POC ABG pCO2 POC ABG pO2 ABG pO2 ABG HCO3 ABG O2 Saturation ABG Base Excess ABG Hemoglobin ABG Oxyhemoglobin Oxyhemoglobin Sodium Potassium Chloride Carbon Dioxide BUN Creatinine Glucose POC Glucose 125 H Calcium Phosphorus Magnesium Direct Bilirubin Alkaline Phosphatase Albumin C-Reactive Protein Odbxb-3-Ybfpadkel PEP Interpretation Lipase 297 H PTH Intact Urine WBC (Auto) Urine Creatinine Urine Total Protein ZINA Screen Crossmatch See Detail 03/02/20 03/02/20 03/02/20 04:00 05:36 05:36 WBC 26.0 H Hgb 7.8 L RBC 3.26 L Hct 24.2 L MCV 74 L MCH 24 L RDW 21.3 H Plt Count 508 H Lymph % (Auto) Lymph # [place] # Lymph # (Auto) [place] # (Auto) Seg Neutrophils % Seg Neutrophils # Seg Neuts % (Manual) 86.0 H Lymphocytes % (Manual) 4.0 L Nucleated RBC % 2.0 H Seg Neutrophils # Man 22.4 H Lymphocytes # (Manual) 1.0 L Monocytes # (Manual) Eosinophils # (Manual) Basophils # (Manual) ABG pH POC ABG pCO2 27.8 L POC ABG pO2 ABG pO2 ABG HCO3 ABG O2 Saturation ABG Base Excess ABG Hemoglobin 8 L ABG Oxyhemoglobin Oxyhemoglobin Sodium Potassium Chloride Carbon Dioxide 17 L BUN 85 H Creatinine 5.6 H Glucose 109 H POC Glucose Calcium Phosphorus Magnesium 2.50 H Direct Bilirubin Alkaline Phosphatase Albumin 2.3 L C-Reactive Protein Pfrrx-0-Awinepwra PEP Interpretation Lipase PTH Intact Urine WBC (Auto) Urine Creatinine Urine Total Protein ZINA Screen Crossmatch 03/03/20 03/03/20 03/03/20 04:00 04:36 04:36 WBC Hgb RBC Hct MCV MCH RDW Plt Count Lymph % (Auto) Lymph # [place] # Lymph # (Auto) [place] # (Auto) Seg Neutrophils % Seg Neutrophils # Seg Neuts % (Manual) Lymphocytes % (Manual) Nucleated RBC % Seg Neutrophils # Man Lymphocytes # (Manual) Monocytes # (Manual) Eosinophils # (Manual) Basophils # (Manual) ABG pH POC ABG pCO2 31.8 L POC ABG pO2 ABG pO2 ABG HCO3 ABG O2 Saturation ABG Base Excess ABG Hemoglobin 8.6 L ABG Oxyhemoglobin Oxyhemoglobin Sodium 147 H Potassium Chloride 108.4 H Carbon Dioxide 16 L BUN 87 H Creatinine 6.2 H Glucose POC Glucose Calcium Phosphorus Magnesium 2.50 H Direct Bilirubin 1.0 H Alkaline Phosphatase Albumin 2.4 L C-Reactive Protein Ffynz-2-Keczvhgdy PEP Interpretation Lipase 119 H PTH Intact Urine WBC (Auto) Urine Creatinine Urine Total Protein ZINA Screen Crossmatch 03/03/20 03/03/20 03/03/20 04:36 12:48 17:48 WBC 28.0 H Hgb 8.1 L RBC 3.41 L Hct 25.3 L MCV 74 L MCH 24 L RDW 20.8 H Plt Count 557 H Lymph % (Auto) Lymph # [place] # Lymph # (Auto) [place] # (Auto) Seg Neutrophils % Seg Neutrophils # Seg Neuts % (Manual) 82.0 H Lymphocytes % (Manual) 4.0 L Nucleated RBC % Seg Neutrophils # Man 23.0 H Lymphocytes # (Manual) 1.1 L Monocytes # (Manual) 2.0 H Eosinophils # (Manual) Basophils # (Manual) ABG pH POC ABG pCO2 POC ABG pO2 ABG pO2 ABG HCO3 ABG O2 Saturation ABG Base Excess ABG Hemoglobin ABG Oxyhemoglobin Oxyhemoglobin Sodium Potassium Chloride Carbon Dioxide BUN Creatinine Glucose POC Glucose 131 H 113 H Calcium Phosphorus Magnesium Direct Bilirubin Alkaline Phosphatase Albumin C-Reactive Protein Vmeno-7-Rxxbwlmvs PEP Interpretation Lipase PTH Intact Urine WBC (Auto) Urine Creatinine Urine Total Protein ZINA Screen Crossmatch 03/03/20 03/04/20 03/04/20 23:43 03:43 04:05 WBC Hgb RBC Hct MCV MCH RDW Plt Count Lymph % (Auto) Lymph # [place] # Lymph # (Auto) [place] # (Auto) Seg Neutrophils % Seg Neutrophils # Seg Neuts % (Manual) Lymphocytes % (Manual) Nucleated RBC % Seg Neutrophils # Man Lymphocytes # (Manual) Monocytes # (Manual) Eosinophils # (Manual) Basophils # (Manual) ABG pH POC ABG pCO2 POC ABG pO2 ABG pO2 57.4 L ABG HCO3 27.2 H ABG O2 Saturation 88.6 L ABG Base Excess ABG Hemoglobin ABG Oxyhemoglobin Oxyhemoglobin Sodium Potassium 3.3 L Chloride Carbon Dioxide BUN 65 H Creatinine 5.3 H Glucose 152 H POC Glucose 149 H Calcium Phosphorus Magnesium Direct Bilirubin 0.7 H Alkaline Phosphatase Albumin 2.5 L C-Reactive Protein Xqjkg-7-Oyxnypwog PEP Interpretation Lipase PTH Intact Urine WBC (Auto) Urine Creatinine Urine Total Protein ZINA Screen Crossmatch 03/04/20 03/04/20 03/04/20 04:05 05:26 12:21 WBC 30.1 H Hgb 8.2 L RBC 3.44 L Hct 25.2 L MCV 73 L MCH 24 L RDW 20.7 H Plt Count 554 H Lymph % (Auto) 3.3 L Lymph # [place] # Lymph # (Auto) 1.0 L [place] # (Auto) 2.0 H Seg Neutrophils % 88.6 H Seg Neutrophils # 26.6 H Seg Neuts % (Manual) Lymphocytes % (Manual) Nucleated RBC % Seg Neutrophils # Man Lymphocytes # (Manual) Monocytes # (Manual) Eosinophils # (Manual) Basophils # (Manual) ABG pH POC ABG pCO2 POC ABG pO2 ABG pO2 ABG HCO3 ABG O2 Saturation ABG Base Excess ABG Hemoglobin ABG Oxyhemoglobin Oxyhemoglobin Sodium Potassium Chloride Carbon Dioxide BUN Creatinine Glucose POC Glucose 136 H 155 H Calcium Phosphorus Magnesium Direct Bilirubin Alkaline Phosphatase Albumin C-Reactive Protein Yihhx-5-Kdvujlvwt PEP Interpretation Lipase PTH Intact Urine WBC (Auto) Urine Creatinine Urine Total Protein ZINA Screen Crossmatch 03/04/20 03/04/20 03/04/20 18:02 19:00 23:24 WBC Hgb RBC Hct MCV MCH RDW Plt Count Lymph % (Auto) Lymph # [place] # Lymph # (Auto) [place] # (Auto) Seg Neutrophils % Seg Neutrophils # Seg Neuts % (Manual) Lymphocytes % (Manual) Nucleated RBC % Seg Neutrophils # Man Lymphocytes # (Manual) Monocytes # (Manual) Eosinophils # (Manual) Basophils # (Manual) ABG pH POC ABG pCO2 POC ABG pO2 ABG pO2 ABG HCO3 ABG O2 Saturation ABG Base Excess ABG Hemoglobin ABG Oxyhemoglobin Oxyhemoglobin Sodium Potassium Chloride Carbon Dioxide BUN Creatinine Glucose POC Glucose 124 H 115 H Calcium Phosphorus Magnesium Direct Bilirubin Alkaline Phosphatase Albumin C-Reactive Protein [id number] PEP Interpretation Lipase 72 H PTH Intact Urine WBC (Auto) Urine Creatinine Urine Total Protein ZINA Screen Crossmatch 03/05/20 03/05/20 03/05/20 05:04 05:29 06:00 WBC Hgb RBC Hct MCV MCH RDW Plt Count Lymph % (Auto) Lymph # [place] # Lymph # (Auto) [place] # (Auto) Seg Neutrophils % Seg Neutrophils # Seg Neuts % (Manual) Lymphocytes % (Manual) Nucleated RBC % Seg Neutrophils # Man Lymphocytes # (Manual) Monocytes # (Manual) Eosinophils # (Manual) Basophils # (Manual) ABG pH POC ABG pCO2 POC ABG pO2 ABG pO2 62.5 L ABG HCO3 26.4 H ABG O2 Saturation 92.1 L ABG Base Excess ABG Hemoglobin 9.3 L ABG Oxyhemoglobin Oxyhemoglobin 89.9 L Sodium Potassium Chloride Carbon Dioxide BUN 54 H Creatinine 5.4 H Glucose 125 H POC Glucose 134 H Calcium Phosphorus Magnesium Direct Bilirubin 0.6 H Alkaline Phosphatase 133 H Albumin 2.5 L C-Reactive Protein [id number] PEP Interpretation Lipase PTH Intact Urine WBC (Auto) Urine Creatinine Urine Total Protein ZINA Screen Crossmatch 03/05/20 03/05/20 03/05/20 12:18 18:01 21:39 WBC Hgb RBC Hct MCV MCH RDW Plt Count Lymph % (Auto) Lymph # [place] # Lymph # (Auto) [place] # (Auto) Seg Neutrophils % Seg Neutrophils # Seg Neuts % (Manual) Lymphocytes % (Manual) Nucleated RBC % Seg Neutrophils # Man Lymphocytes # (Manual) Monocytes # (Manual) Eosinophils # (Manual) Basophils # (Manual) ABG pH POC ABG pCO2 POC ABG pO2 ABG pO2 ABG HCO3 ABG O2 Saturation ABG Base Excess ABG Hemoglobin ABG Oxyhemoglobin Oxyhemoglobin Sodium Potassium Chloride Carbon Dioxide BUN Creatinine Glucose POC Glucose 118 H 108 H 123 H Calcium Phosphorus Magnesium Direct Bilirubin Alkaline Phosphatase Albumin C-Reactive Protein [id number] PEP Interpretation Lipase PTH Intact Urine WBC (Auto) Urine Creatinine Urine Total Protein ZINA Screen Crossmatch 03/06/20 03/06/20 03/06/20 04:40 04:41 05:44 WBC Hgb RBC Hct MCV MCH RDW Plt Count Lymph % (Auto) Lymph # [place] # Lymph # (Auto) [place] # (Auto) Seg Neutrophils % Seg Neutrophils # Seg Neuts % (Manual) Lymphocytes % (Manual) Nucleated RBC % Seg Neutrophils # Man Lymphocytes # (Manual) Monocytes # (Manual) Eosinophils # (Manual) Basophils # (Manual) ABG pH POC ABG pCO2 POC ABG pO2 64.9 L ABG pO2 ABG HCO3 ABG O2 Saturation ABG Base Excess ABG Hemoglobin 9.9 L ABG Oxyhemoglobin 90.5 L Oxyhemoglobin Sodium Potassium Chloride 94.7 L Carbon Dioxide BUN 70 H Creatinine 7.1 H Glucose 113 H POC Glucose 134 H Calcium Phosphorus Magnesium Direct Bilirubin Alkaline Phosphatase Albumin C-Reactive Protein [id number] PEP Interpretation Lipase PTH Intact Urine WBC (Auto) Urine Creatinine Urine Total Protein ZINA Screen Crossmatch 03/06/20 03/06/20 03/06/20 08:54 11:56 18:19 WBC 31.5 H Hgb 8.7 L RBC Hct 27.8 L MCV 75 L MCH 23 L RDW 21.2 H Plt Count 516 H Lymph % (Auto) Lymph # [place] # Lymph # (Auto) [place] # (Auto) Seg Neutrophils % Seg Neutrophils # Seg Neuts % (Manual) 93.0 H Lymphocytes % (Manual) 2.0 L Nucleated RBC % Seg Neutrophils # Man 29.3 H Lymphocytes # (Manual) 0.6 L Monocytes # (Manual) Eosinophils # (Manual) 0.6 H Basophils # (Manual) ABG pH POC ABG pCO2 POC ABG pO2 ABG pO2 ABG HCO3 ABG O2 Saturation ABG Base Excess ABG Hemoglobin ABG Oxyhemoglobin Oxyhemoglobin Sodium Potassium Chloride Carbon Dioxide BUN Creatinine Glucose POC Glucose 131 H 117 H Calcium Phosphorus Magnesium Direct Bilirubin Alkaline Phosphatase Albumin C-Reactive Protein [id number] PEP Interpretation Lipase PTH Intact Urine WBC (Auto) Urine Creatinine Urine Total Protein ZINA Screen Crossmatch 03/07/20 03/07/20 03/07/20 05:03 05:03 12:08 WBC 26.9 H Hgb 8.3 L RBC 3.50 L Hct 26.6 L MCV 76 L MCH 24 L RDW 21.3 H Plt Count 470 H Lymph % (Auto) Lymph # [place] # Lymph # (Auto) [place] # (Auto) Seg Neutrophils % Seg Neutrophils # Seg Neuts % (Manual) 89.0 H Lymphocytes % (Manual) 4.0 L Nucleated RBC % Seg Neutrophils # Man 23.9 H Lymphocytes # (Manual) 1.1 L Monocytes # (Manual) Eosinophils # (Manual) Basophils # (Manual) 0.3 H ABG pH POC ABG pCO2 POC ABG pO2 ABG pO2 ABG HCO3 ABG O2 Saturation ABG Base Excess ABG Hemoglobin ABG Oxyhemoglobin Oxyhemoglobin Sodium Potassium Chloride 94.8 L Carbon Dioxide BUN 52 H Creatinine 6.3 H Glucose 106 H POC Glucose 114 H Calcium Phosphorus Magnesium Direct Bilirubin Alkaline Phosphatase 132 H Albumin 2.5 L C-Reactive Protein [id number]-[id number] PEP Interpretation Lipase PTH Intact Urine WBC (Auto) Urine Creatinine Urine Total Protein ZINA Screen Crossmatch 03/07/20 03/07/20 03/08/20 18:05 23:29 04:50 WBC Hgb RBC Hct MCV MCH RDW Plt Count Lymph % (Auto) Lymph # [place] # Lymph # (Auto) [place] # (Auto) Seg Neutrophils % Seg Neutrophils # Seg Neuts % (Manual) Lymphocytes % (Manual) Nucleated RBC % Seg Neutrophils # Man Lymphocytes # (Manual) Monocytes # (Manual) Eosinophils # (Manual) Basophils # (Manual) ABG pH POC ABG pCO2 POC ABG pO2 ABG pO2 ABG HCO3 ABG O2 Saturation ABG Base Excess ABG Hemoglobin ABG Oxyhemoglobin Oxyhemoglobin Sodium Potassium Chloride 95.5 L Carbon Dioxide BUN 52 H Creatinine 6.2 H Glucose 109 H POC Glucose 111 H 118 H Calcium Phosphorus Magnesium Direct Bilirubin Alkaline Phosphatase Albumin C-Reactive Protein [id number] PEP Interpretation Lipase PTH Intact Urine WBC (Auto) Urine Creatinine Urine Total Protein ZINA Screen Crossmatch Chest x-ray: other (none today) Allied health notes reviewed: nursing
[2020-03-08] MEDS ORDERED: SODIUM CHLORIDE 0.9% 100 ML IV PRN (17:05)
--- NOTE | 2020-03-08 17:05 | Progress Note ---
Assessment and Plan # Acute Kidney Injury/Chronic Kidney Disease: suspect JUANIS in setting of hypertensive urgency and pre-renal injury from pancreatitis. Additional JUANIS risk factors include use of NSAID (Toradol) and PPI. 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 Creatinine has worsened from 1.7->3.0->3.1->3.4->4.2->4.7->5.6->5.0> 6.2 since admission, now intubated -Status post Vas-Cath placement on 12/02/2019 and initiation of dialysis. -Hyperkalemia and acidosis has been corrected. Volume status is improving. Urine output however has declined. - strict Is/Os - ordered serologies-> ANCA negative; ZINA is positive. Check anti-DNA antibody. Complement levels are normal. Minimal proteinuria per UP/C, PTH high for CKD; reviewed urinalysis which does show hematuria and proteinuria - BP control as below # Hypertensive Emergency: BPs improved, off Cardene gtt, agree to titrate back to home amlodipine, metoprolol. On HANNA-I at home, hold for now. # Acidosis: Bicarbonate level is back up to 24. Discontinue bicarbonate drip . # Pancreatitis: appreciate GI, pain management per primary. # Thrombocytosis # Leukocytosis No evidence of renal recovery at this time. Shall arrange for hemodialysis for tomorrow and keep her on MWF schedule for now Subjective Date of service: 03/08/20 Principal diagnosis: HTNsive urgency; Morbid obesity; Ac. pancreatitis; Abdominal pain Interval history: Patient remains in the ICU. Currently on 30% FiO2. O2 saturation 95% Objective - Vital Signs Vital signs: Vital Signs - 12hr 03/08/20 03/08/20 03/08/20 05:12 05:22 05:30 Temperature Pulse Rate 91 H 92 H 94 H Pulse Rate [ 91 H Anterior Bilateral Throughout] Pulse Rate [ From Monitor] Respiratory 20 Rate Respiratory 20 Rate [Anterior Bilateral Throughout] Blood Pressure 95/50 91/48 103/54 O2 Sat by Pulse 99 99 Oximetry 03/08/20 03/08/20 03/08/20 06:00 06:30 07:00 Temperature Pulse Rate 91 H 92 H 92 H Pulse Rate [ Anterior Bilateral Throughout] Pulse Rate [ From Monitor] Respiratory 20 20 20 Rate Respiratory Rate [Anterior Bilateral Throughout] Blood Pressure 100/48 99/50 98/50 O2 Sat by Pulse 100 100 100 Oximetry 03/08/20 03/08/20 03/08/20 07:30 08:00 08:09 Temperature 101.4 F H Pulse Rate 94 H 99 H Pulse Rate [ 98 H Anterior Bilateral Throughout] Pulse Rate [ 92 H From Monitor] Respiratory 20 20 Rate Respiratory 26 H Rate [Anterior Bilateral Throughout] Blood Pressure 96/48 101/53 O2 Sat by Pulse 99 99 Oximetry 03/08/20 03/08/20 03/08/20 08:10 08:30 09:00 Temperature Pulse Rate 95 H 107 H 101 H Pulse Rate [ Anterior Bilateral Throughout] Pulse Rate [ From Monitor] Respiratory 28 H 31 H Rate Respiratory Rate [Anterior Bilateral Throughout] Blood Pressure 101/53 115/68 103/56 O2 Sat by Pulse 99 96 98 Oximetry 03/08/20 03/08/20 03/08/20 09:30 10:00 10:30 Temperature Pulse Rate 98 H 97 H 97 H Pulse Rate [ Anterior Bilateral Throughout] Pulse Rate [ From Monitor] Respiratory 31 H 31 H 31 H Rate Respiratory Rate [Anterior Bilateral Throughout] Blood Pressure 98/50 97/50 103/48 O2 Sat by Pulse 98 98 99 Oximetry 03/08/20 03/08/20 03/08/20 10:47 10:52 11:00 Temperature Pulse Rate 95 H 95 H 96 H Pulse Rate [ Anterior Bilateral Throughout] Pulse Rate [ From Monitor] Respiratory 28 H Rate Respiratory Rate [Anterior Bilateral Throughout] Blood Pressure 99/51 100/51 94/49 O2 Sat by Pulse 99 Oximetry 03/08/20 03/08/20 03/08/20 11:30 12:00 12:10 Temperature 99.7 F H Pulse Rate 86 84 98 H Pulse Rate [ Anterior Bilateral Throughout] Pulse Rate [ 84 From Monitor] Respiratory 27 H 26 H 26 H Rate Respiratory Rate [Anterior Bilateral Throughout] Blood Pressure 98/49 98/46 98/46 O2 Sat by Pulse 99 99 98 Oximetry 03/08/20 03/08/20 03/08/20 12:30 13:00 13:30 Temperature Pulse Rate 86 89 92 H Pulse Rate [ Anterior Bilateral Throughout] Pulse Rate [ From Monitor] Respiratory 25 H 29 H 24 Rate Respiratory Rate [Anterior Bilateral Throughout] Blood Pressure 99/47 91/48 95/48 O2 Sat by Pulse 98 98 98 Oximetry 03/08/20 03/08/20 03/08/20 13:36 14:00 14:30 Temperature Pulse Rate 92 H 93 H 97 H Pulse Rate [ 98 H Anterior Bilateral Throughout] Pulse Rate [ From Monitor] Respiratory 29 H 26 H Rate Respiratory 26 H Rate [Anterior Bilateral Throughout] Blood Pressure 95/48 108/62 123/74 O2 Sat by Pulse 98 97 Oximetry - General Appearance General appearance: well-developed, well-nourished, appears stated age, intubated EENT: PERRL, mucous membranes moist Neck: no JVD, no thyromegaly, other (Right IJ Vas-Cath in place) Respiratory: Present: Ronchi (Few scattered rhonchi) Cardiology: regular, normal heart rate, S1S2, no murmurs Gastrointestinal: normal, normoactive bowel sounds Integumentary: other (Trace edema) - Lab 03/07/20 05:03 03/08/20 04:50 Most recent lab results ABG pH 7.380 (7.320-7.450) 03/06/20 04:41 ABG pCO2 43.1 mm Hg 03/05/20 05:04 ABG pO2 62.5 mm Hg (80.0-90.0) L 03/05/20 05:04 ABG HCO3 26.4 mmol/L (20.0-26.0) H 03/05/20 05:04 ABG O2 Saturation 92.1 % (95.0-99.0) L 03/05/20 05:04 Calcium 9.5 mg/dL (8.4-10.2) 03/08/20 04:50 Phosphorus 6.10 mg/dL (2.5-4.5) H 03/01/20 04:37 Magnesium 2.00 mg/dL (1.7-2.3) 03/07/20 05:03 Urine Creatinine 161.0 mg/dL (0.1-20.0) H 02/25/20 22:55 Urine Total Protein 150 mg/dL (5-11.8) H 02/25/20 22:55 Medications & Allergies - Medications Allergies/Adverse Reactions: Allergies No Known Allergies Allergy (Unverified 09/05/19 10:15) Home Medications: Home Medications Medication Instructions Recorded Confirmed Last Taken Type Amlodipine Besylate [Norvasc] 10 mg PO DAILY 09/05/19 02/24/20 09/04/19 History Furosemide [Lasix] 20 mg PO QDAY #30 tablet 09/05/19 02/24/20 Unknown Rx Lisinopril [Zestril] 5 mg PO DAILY #30 tablet 09/05/19 02/24/20 Unknown Rx Metoprolol [Lopressor TAB] 25 mg PO BID #60 tablet 09/05/19 02/24/20 Unknown Rx Active Medications: Generic Name Dose Route Start Last Admin Trade Name Freq PRN Reason Stop Dose Admin Acetaminophen 650 mg 02/26/20 16:23 03/08/20 16:43 Tylenol PO 650 mg Q4H PRN Administration Pain, Mild (1-3)/ Temp >100. Albuterol 2.5 mg 02/27/20 17:55 Proventil IH Q4HRT PRN Shortness Of Breath Albuterol/Ipratropium 1 ampul 02/28/20 12:17 03/08/20 14:18 Duoneb *Not For Prn Use* IH 1 ampul Q6HRT INDU Administration Amlodipine Besylate 10 mg 02/28/20 10:00 03/08/20 10:47 Amlodipine PO Not Given QDAY INDU Lipase/Protease/Amylase 1 each 03/01/20 08:46 Pancrealivia Davis 10,500 Unit FEEDTUBE PRN PRN For Clogged Feeding Tube Dextrose 50 ml 02/29/20 08:00 03/01/20 00:20 D50w (25gm) Syringe IV 10 ml Q30MIN PRN Administration HYPOGLYCEMIA Protocol Fentanyl 50 mcg 02/29/20 15:35 03/04/20 20:35 Sublimaze IV 50 mcg Q10MIN PRN Administration ANALGESIA Heparin Sodium (Porcine) 5,000 unit 02/24/20 14:00 03/08/20 13:46 Heparin SUB-Q 5,000 unit Q8HR INDU Administration Hydralazine HCl 25 mg 03/04/20 14:00 03/08/20 13:36 Apresoline PO Not Given Q8HR INDU Hydrophilic Ointment 1 applic 02/29/20 15:35 Vaseline Lip Therapy TP Q2HR PRN Dry Lips Fentanyl Citrate 2,000 mcg in 100 mls @ 4.55 mls/hr 02/29/20 16:00 03/08/20 16:42 Fentanyl Drip Premix IV 2 mcg/kg/hr TITR INDU 9.1 mls/hr Administration Protocol 1 MCG/KG/HR MEROPENEM/NS 1 GRAM/100 ML 1 gram in 100 mls @ 100 mls/hr 03/03/20 18:00 03/07/20 18:13 Merrem/Ns 1 Gram/100 Ml IV 100 mls/hr QPM INDU Administration Protocol Sodium Chloride 100 mls @ 999 mls/hr 03/06/20 13:00 Nacl 0.9% IV NIKOLAY PRN Hypotension Labetalol HCl 10 mg 02/28/20 09:00 03/05/20 04:10 Labetalol IV 10 mg Q4H PRN Administration Hypertension Lansoprazole 30 mg 03/06/20 10:00 03/08/20 09:41 Prevacid Solutab FEEDTUBE 30 mg QDAY INDU Administration Lorazepam 4 mg 03/06/20 11:00 03/07/20 18:12 Ativan IV 4 mg Q4H PRN Administration AGITATION Metoprolol Tartrate 25 mg 02/28/20 10:00 03/08/20 10:52 Metoprolol PO 25 mg BID INDU Administration Multi-Ingred Cream/Lotion/Oil/Oint 1 applic 02/29/20 15:35 Artificial Tears Ophth Oint OU Q4HR PRN Dry Eye(s) Ondansetron HCl 4 mg 02/24/20 06:45 02/25/20 23:33 Zofran IV 4 mg Q8H PRN Administration Nausea And Vomiting Quetiapine Fumarate 100 mg 03/06/20 10:00 03/08/20 09:41 Seroquel PO 100 mg QAM INDU Administration Quetiapine Fumarate 200 mg 03/06/20 22:00 03/07/20 21:27 Seroquel PO 200 mg QHS INDU Administration Scopolamine 1 each 03/04/20 16:00 03/07/20 11:54 Transderm-Scop TD 1 each Q3D INDU Administration Simple Syrup 15 ml 03/01/20 08:46 Simple Syrup FEEDTUBE PRN PRN Hypoglycemia Simple Syrup 30 ml 03/01/20 08:46 Simple Syrup FEEDTUBE PRN PRN Hypoglycemia Sodium Bicarbonate 325 mg 03/01/20 08:46 Sodium Bicarbonate FEEDTUBE PRN PRN For Clogged Feeding Tube Sodium Chloride 10 ml 02/24/20 10:00 03/08/20 09:41 Sodium Chloride Flush Syringe 10 Ml IV 10 ml BID INDU Administration Sodium Chloride 10 ml 02/24/20 06:45 Sodium Chloride Flush Syringe 10 Ml IV PRN PRN LINE FLUSH Tamsulosin HCl 0.4 mg 03/01/20 17:00 03/08/20 09:40 Flomax PO 0.4 mg QDAY INDU Administration
[2020-03-08] MEDS: MEROPENEM/NS 1 GRAM/100 ML 1 GRAM/100 ML BAG IV SCH (18:32)
[2020-03-08] MEDS: QUEtiapine 200 MG TAB PO SCH (21:44)
--- NOTE | 2020-03-09 04:03 | XRay Report ---
CHEST 1 VIEW INDICATION: Pneumonia COMPARISON: 03/07/2020 FINDINGS: Support devices: Unchanged. Heart: Mildly enlarged but stable Lungs/Pleura: Left basilar density appears resolved. No acute disease on today's exam. IMPRESSION: 1. No acute disease. Signer Name: Danny Lopez MD Signed: 03/09/2020 3:59 AM Workstation Name: [id number]
[2020-03-09] MEDS: IPRATROPIUM/ALBUTEROL SULFATE 3 ML AMPUL.NEB IH SCH ×4 (04:16→20:26)
[2020-03-09] MEDS: fentaNYL DRIP Premix 2,000 MCG/100 ML BAG IV SCH ×4 (05:31→22:21)
[2020-03-09] MEDS: HEPARIN 5,000 UNIT/1 ML VIAL SUB-Q SCH ×3 (05:31→21:16)
[2020-03-09] MEDS: hydrALAZINE 25 MG TAB PO SCH ×3 (05:34→21:18)
[2020-03-09 05:50] LABS: Calcium 9.3 mg/dL (8.4-10.2)
[2020-03-09 08:10] LABS: Hematocrit 24.3 % (30.3-42.9); Hemoglobin 7.5 gm/dl (10.1-14.3); Mean Corpuscular HGB Conc 31 % (30-34); Mean Corpuscular Volume 74 fl (79-97); Platelet Count 488 K/mm3 (140-440); Red Blood Count 3.27 M/mm3 (3.65-5.03)
[2020-03-09 08:11] LABS: Red Cell Distribution Width 20.9 % (13.2-15.2)
[2020-03-09] MEDS: QUEtiapine 100 MG TAB PO SCH (09:11)
[2020-03-09] MEDS: amLODIPine 10 MG TAB PO SCH (09:11)
[2020-03-09] MEDS: METOPROLOL TARTRATE 25 MG TAB PO SCH ×2 (09:12→21:19)
[2020-03-09] MEDS: LANSOPRAZOLE 30 MG SOLUTAB FEEDTUBE SCH (09:13)
[2020-03-09] MEDS: TAMSULOSIN 0.4 MG CAP PO SCH (09:13)
--- NOTE | 2020-03-09 09:51 | Progress Note ---
Assessment and Plan Assessment * Acute kidney injury attributed to prerenal azotemia/ATN related to pancreatitis vs NSAID induced nephropathy vs PPI --Serologies: ANCA, C3, C4 - negative; ZINA positive * Acute hypoxic respiratory failure * Metabolic acidosis * Acute severe pancreatitis * Accelerated hypertension * Anemia Plan: * Hemodialysis today - UF as tolerated; vascath in place * Continue MWF schedule for now * Monitor SCr trend and UOP for evidence of recovery * Await dsDNA * Continue antiHTN medications * Vent management per pulm * Abx per ID - currently on Meropenem * GI recommendations reviewed * Hold ACEi for now * Dose medications for renal function * Avoid potential nephrotoxins Subjective Date of service: 03/09/20 Principal diagnosis: HTNsive urgency; Morbid obesity; Ac. pancreatitis; Abdominal pain Interval history: No acute events overnight Objective - Vital Signs Vital signs: Vital Signs - 12hr 03/08/20 03/08/20 03/08/20 21:55 22:00 22:05 Temperature Pulse Rate 109 H 101 H 99 H Pulse Rate [ Anterior Bilateral Throughout] Pulse Rate [ From Monitor] Respiratory 20 20 20 Rate Respiratory Rate [Anterior Bilateral Throughout] Blood Pressure 134/76 113/68 113/68 O2 Sat by Pulse 96 96 96 Oximetry 03/08/20 03/08/20 03/08/20 22:30 23:00 23:30 Temperature Pulse Rate 92 H 88 86 Pulse Rate [ Anterior Bilateral Throughout] Pulse Rate [ From Monitor] Respiratory 21 21 21 Rate Respiratory Rate [Anterior Bilateral Throughout] Blood Pressure 112/64 107/60 111/60 O2 Sat by Pulse 96 96 96 Oximetry 03/08/20 03/09/20 03/09/20 23:46 00:00 00:01 Temperature 99.9 F H Pulse Rate 107 H 102 H 100 H Pulse Rate [ Anterior Bilateral Throughout] Pulse Rate [ From Monitor] Respiratory 20 Rate Respiratory Rate [Anterior Bilateral Throughout] Blood Pressure 111/60 O2 Sat by Pulse 94 96 Oximetry 03/09/20 03/09/20 03/09/20 00:31 01:00 01:30 Temperature Pulse Rate 99 H 97 H 97 H Pulse Rate [ Anterior Bilateral Throughout] Pulse Rate [ From Monitor] Respiratory 20 20 20 Rate Respiratory Rate [Anterior Bilateral Throughout] Blood Pressure 111/60 122/79 134/84 O2 Sat by Pulse 96 97 97 Oximetry 03/09/20 03/09/20 03/09/20 02:00 02:30 03:00 Temperature Pulse Rate 96 H 98 H 92 H Pulse Rate [ Anterior Bilateral Throughout] Pulse Rate [ From Monitor] Respiratory 20 20 20 Rate Respiratory Rate [Anterior Bilateral Throughout] Blood Pressure 123/78 125/79 113/66 O2 Sat by Pulse 98 97 98 Oximetry 03/09/20 03/09/20 03/09/20 03:30 04:00 04:16 Temperature 100.2 F H Pulse Rate 92 H 86 88 Pulse Rate [ 88 Anterior Bilateral Throughout] Pulse Rate [ From Monitor] Respiratory 20 20 Rate Respiratory 20 Rate [Anterior Bilateral Throughout] Blood Pressure 117/64 104/53 113/62 O2 Sat by Pulse 99 99 99 Oximetry 03/09/20 03/09/20 03/09/20 04:30 05:00 05:30 Temperature Pulse Rate 89 88 88 Pulse Rate [ Anterior Bilateral Throughout] Pulse Rate [ From Monitor] Respiratory 20 20 20 Rate Respiratory Rate [Anterior Bilateral Throughout] Blood Pressure 109/62 111/63 113/65 O2 Sat by Pulse 99 99 98 Oximetry 03/09/20 03/09/20 03/09/20 05:34 06:00 06:30 Temperature Pulse Rate 88 86 Pulse Rate [ Anterior Bilateral Throughout] Pulse Rate [ From Monitor] Respiratory 20 20 Rate Respiratory Rate [Anterior Bilateral Throughout] Blood Pressure 113/65 119/69 118/72 O2 Sat by Pulse 99 100 Oximetry 03/09/20 03/09/20 03/09/20 07:00 07:20 07:30 Temperature Pulse Rate 87 108 H 110 H Pulse Rate [ 108 H Anterior Bilateral Throughout] Pulse Rate [ From Monitor] Respiratory 20 21 Rate Respiratory 23 Rate [Anterior Bilateral Throughout] Blood Pressure 115/68 172/109 152/96 O2 Sat by Pulse 99 98 98 Oximetry 03/09/20 03/09/20 03/09/20 07:35 08:00 08:30 Temperature 99.8 F H Pulse Rate 115 H 113 H 112 H Pulse Rate [ Anterior Bilateral Throughout] Pulse Rate [ 111 H From Monitor] Respiratory 27 H 25 H 26 H Rate Respiratory Rate [Anterior Bilateral Throughout] Blood Pressure 134/89 158/95 144/88 O2 Sat by Pulse 98 96 97 Oximetry 03/09/20 03/09/20 09:11 09:12 Temperature Pulse Rate 117 H 119 H Pulse Rate [ Anterior Bilateral Throughout] Pulse Rate [ From Monitor] Respiratory Rate Respiratory Rate [Anterior Bilateral Throughout] Blood Pressure 134/89 134/89 O2 Sat by Pulse Oximetry - General Appearance General appearance: well-developed EENT: ATNC, other (ETT in place) Respiratory: Present: Other (coarse BS) Cardiology: regular, S1S2 Gastrointestinal: normoactive bowel sounds, distended Integumentary: no rash, warm and dry Neurologic: other (interactive, nods head to questions) Musculoskeletal: other (no edema) Psychiatric: cooperative - Lab 03/09/20 07:53 03/09/20 04:00 Most recent lab results ABG pH 7.380 (7.320-7.450) 03/06/20 04:41 ABG pCO2 43.1 mm Hg 03/05/20 05:04 ABG pO2 62.5 mm Hg (80.0-90.0) L 03/05/20 05:04 ABG HCO3 26.4 mmol/L (20.0-26.0) H 03/05/20 05:04 ABG O2 Saturation 92.1 % (95.0-99.0) L 03/05/20 05:04 Calcium 9.3 mg/dL (8.4-10.2) 03/09/20 04:00 Phosphorus 6.10 mg/dL (2.5-4.5) H 03/01/20 04:37 Magnesium 2.00 mg/dL (1.7-2.3) 03/07/20 05:03 Urine Creatinine 161.0 mg/dL (0.1-20.0) H 02/25/20 22:55 Urine Total Protein 150 mg/dL (5-11.8) H 02/25/20 22:55 Medications & Allergies - Medications Allergies/Adverse Reactions: Allergies No Known Allergies Allergy (Unverified 09/05/19 10:15) Home Medications: Home Medications Medication Instructions Recorded Confirmed Last Taken Type Amlodipine Besylate [Norvasc] 10 mg PO DAILY 09/05/19 02/24/20 09/04/19 History Furosemide [Lasix] 20 mg PO QDAY #30 tablet 09/05/19 02/24/20 Unknown Rx Lisinopril [Zestril] 5 mg PO DAILY #30 tablet 09/05/19 02/24/20 Unknown Rx Metoprolol [Lopressor TAB] 25 mg PO BID #60 tablet 09/05/19 02/24/20 Unknown Rx Active Medications: Generic Name Dose Route Start Last Admin Trade Name Freq PRN Reason Stop Dose Admin Acetaminophen 650 mg 02/26/20 16:23 03/08/20 16:43 Tylenol PO 650 mg Q4H PRN Administration Pain, Mild (1-3)/ Temp >100. Albuterol 2.5 mg 02/27/20 17:55 Proventil IH Q4HRT PRN Shortness Of Breath Albuterol/Ipratropium 1 ampul 02/28/20 12:17 03/09/20 07:20 Duoneb *Not For Prn Use* IH 1 ampul Q6HRT INDU Administration Amlodipine Besylate 10 mg 02/28/20 10:00 03/09/20 09:11 Amlodipine PO 10 mg QDAY INDU Administration Lipase/Protease/Amylase 1 each 03/01/20 08:[address] 10,500 Unit FEEDTUBE PRN PRN For Clogged Feeding Tube Dextrose 50 ml 02/29/20 08:00 03/01/20 00:20 D50w (25gm) Syringe IV 10 ml Q30MIN PRN Administration HYPOGLYCEMIA Protocol Fentanyl 50 mcg 02/29/20 15:35 03/04/20 20:35 Sublimaze IV 50 mcg Q10MIN PRN Administration ANALGESIA Heparin Sodium (Porcine) 5,000 unit 02/24/20 14:00 03/09/20 05:31 Heparin SUB-Q 5,000 unit Q8HR INDU Administration Hydralazine HCl 25 mg 03/04/20 14:00 03/09/20 05:34 Apresoline PO Not Given Q8HR [facility] Hydrophilic Ointment 1 applic 02/29/20 15:35 Vaseline Lip Therapy TP Q2HR PRN Dry Lips Fentanyl Citrate 2,000 mcg in 100 mls @ 4.55 mls/hr 02/29/20 16:00 03/09/20 08:20 Fentanyl Drip Premix IV 0 mcg/kg/hr TITR INDU 0 mls/hr Titration Protocol 1 MCG/KG/HR MEROPENEM/NS 1 GRAM/100 ML 1 gram in 100 mls @ 100 mls/hr 03/03/20 18:00 03/08/20 18:32 Merrem/Ns 1 Gram/100 Ml IV 100 mls/hr QPM INDU Administration Protocol Sodium Chloride 100 mls @ 999 mls/hr 03/08/20 17:05 Nacl 0.9% IV NIKOLAY PRN Hypotension Labetalol HCl 10 mg 02/28/20 09:00 03/05/20 04:10 Labetalol IV 10 mg Q4H PRN Administration Hypertension Lansoprazole 30 mg 03/06/20 10:00 03/09/20 09:13 Prevacid Solutab FEEDTUBE 30 mg QDAY INDU Administration Lorazepam 4 mg 03/06/20 11:00 03/07/20 18:12 Ativan IV 4 mg Q4H PRN Administration AGITATION Metoprolol Tartrate 25 mg 02/28/20 10:00 03/09/20 09:12 Metoprolol PO 25 mg BID INDU Administration Multi-Ingred Cream/Lotion/Oil/Oint 1 applic 02/29/20 15:35 Artificial Tears Ophth Oint OU Q4HR PRN Dry Eye(s) Ondansetron HCl 4 mg 02/24/20 06:45 02/25/20 23:33 Zofran IV 4 mg Q8H PRN Administration Nausea And Vomiting Quetiapine Fumarate 100 mg 03/06/20 10:00 03/09/20 09:11 Seroquel PO 100 mg QAM INDU Administration Quetiapine Fumarate 200 mg 03/06/20 22:00 03/08/20 21:44 Seroquel PO 200 mg QHS INDU Administration Scopolamine 1 each 03/04/20 16:00 03/07/20 11:54 Transderm-Scop TD 1 each Q3D INDU Administration Simple Syrup 15 ml 03/01/20 08:46 Simple Syrup FEEDTUBE PRN PRN Hypoglycemia Simple Syrup 30 ml 03/01/20 08:46 Simple Syrup FEEDTUBE PRN PRN Hypoglycemia Sodium Bicarbonate 325 mg 03/01/20 08:46 Sodium Bicarbonate FEEDTUBE PRN PRN For Clogged Feeding Tube Sodium Chloride 10 ml 02/24/20 10:00 03/09/20 09:13 Sodium Chloride Flush Syringe 10 Ml IV 10 ml BID INDU Administration Sodium Chloride 10 ml 02/24/20 06:45 Sodium Chloride Flush Syringe 10 Ml IV PRN PRN LINE FLUSH Tamsulosin HCl 0.4 mg 03/01/20 17:00 03/09/20 09:13 Flomax PO 0.4 mg QDAY INDU Administration
--- NOTE | 2020-03-09 09:54 | Progress Note ---
Assessment and Plan Assessment and plan: --JUANIS/worsening renal function[cr 5.6-6.2] Worsening renal function, Initiated hemodialysis 03/03/2020 Hemodialysis per nephrology --Acute hypoxic resp failure; intubated 02/29/20 Mechanical ventilation , supportive care secondary to pancreatitis, lung infiltrate, possible ARDS Fluid overload.acute kidney injury Wean as tolerated and extubate Pulmonary critical following Chest x-ray today; worsening infiltrates --Severe sepsis secondary to pneumonia and pancreatitis; Worsening bibasilar opacities on chest x-ray leukocytosis, tachycardia, tachypnea, fever, infiltrate on chest x-ray. Continue antibiotic, follow cultures, ID following -- Acute severe pancreatitis Initial non-contrasted CT showed no evidence of necrosis or pseudocyst or abscess formation. Repeat CT 03/05 with interval worsening of acute pancreatitis without clear evidence of necrosis with increased jessica-pancreatic fat stranding and disorganized fluid, however was done without IV contrast due to her renal function. -- Bilateral pleural effusions. Etiology secondary to above Compressive atelectasis --Anemia monitor H&H and transfuse as needed. Anasarca --Severe metabolic encephalopathy Probably secondary alcohol withdrawal symptoms Treat the underlying cause,CIWA protocol, supportive care --Alcohol withdrawal closely monitor , Ativan as needed Continue CIWA protocol --Worsening leukocytosis Secondary to sepsis due to bibasilar pneumonia, acute pancreatitis, ID and GI following -- Hypertensive emergency POA s/p Cardene drip, closely monitor Blood pressures uncontrolled IV labetalol, PRN --Severe metabolic acidosis; Management per nephrology --Medical noncompliance Patient was counseled upon admission -- DVT prophylaxis Patient placed on subcutaneous heparin. --Obesity; BMI 37.9 patient needs weight reduction when medically stable. -- Full code status Follow GI and pulmonary evaluation and recommendations We will closely monitor the patient and adjust the management as needed Closely monitor the patient and adjust management as needed. 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 Patient remains critically ill on mechanical ventilation AC mode rate 20, tidal volume 450, FiO2 30% with a PEEP of 6. Patient with multiorgan failure. Continue hemodialysis per nephrology. GI believes patient may need MRCP at some point in the future but no need urgently. Continue fentanyl drip for sedation and wean as tolerated. Patient currently with meropenem/ID following. 03/08/2020. Patient remains critically ill on mechanical ventilation AC mode rate 20, tidal volume 450, FiO2 30% with a PEEP of 6. Continue IV meropenem per ID recommendations. Persistent fevers likely associated to acute severe pancreatitis. Creatinine 1.5 in September 2019, may have underlying CKD. Creatinine has worsened from 1.7->3.0->3.1->3.4->4.2->4.7->5.6->5.0> 6.2 since admission. Status post Vas-Cath placement on 03/03/2020 and initiation of d ialysis. 03/09/2020. Patient currently with PSV trials FiO2 30% 03/10. JUANIS in setting of hypertensive urgency and pre-renal injury from pancreatitis. Urine output has declined but patient did have approximately 400 cc noted on bladder scan. Straight cath for now. Nephrology following. Blood pressure much better controlled. Continue IV meropenem renally dosed per ID recommendations. Persis tent fevers likely secondary to severe pancreatitis. Follow-up cultures from 03/06/2020. The high probability of a clinically significant, sudden or life threatening deterioration of the [GI, CVS, renal, respiratory and metabolic] system(s) required my full and direct attention, intervention and personal management. The aggregate critical care time was [31] minutes. This time is in addition to time spent performing reported procedures but includes the following: [x] Data Review and interpretation [x] Patient assessment and monitoring of vital signs [x] Documentation [x] Medication orders and management History Interval history: No new issues overnight. Hospitalist Physical - Constitutional Vitals: Temp Pulse Resp BP Pulse Ox 99.8 F H 119 H 26 H 134/89 97 03/09/20 08:00 03/09/20 09:12 03/09/20 08:30 03/09/20 09:12 03/09/20 08:30 General appearance: Present: no acute distress, well-nourished, obese, other (Intubated) - EENT Eyes: Present: PERRL, EOM intact ENT: hearing intact, clear oral mucosa, dentition normal - Neck Neck: Present: supple, normal ROM - Respiratory Respiratory effort: normal Respiratory: bilateral: CTA - Cardiovascular Rhythm: regular Heart Sounds: Present: S1 & S2. Absent: gallop, rub - Extremities Extremities: no ischemia, No edema, Full ROM - Abdominal General gastrointestinal: soft, non-tender, non-distended, normal bowel sounds - Integumentary Integumentary: Present: clear, warm, dry - Neurologic Neurologic: CNII-XII intact, moves all extremities Results - Labs CBC & Chem 7: 03/09/20 07:53 03/09/20 04:00 Labs: Laboratory Last Values WBC 21.9 K/mm3 (4.5-11.0) H 03/09/20 07:53 RBC 3.27 M/mm3 (3.65-5.03) L 03/09/20 07:53 Hgb 7.5 gm/dl (10.1-14.3) L 03/09/20 07:53 Hct 24.3 % (30.3-42.9) L 03/09/20 07:53 MCV 74 fl (79-97) L 03/09/20 07:53 MCH 23 pg (28-32) L 03/09/20 07:53 MCHC 31 % (30-34) 03/09/20 07:53 RDW 20.9 % (13.2-15.2) H 03/09/20 07:53 Plt Count 488 K/mm3 (140-440) H 03/09/20 07:53 Lymph % (Auto) 3.3 % (13.4-35.0) L 03/04/20 04:05 Harney % (Auto) 6.7 % (0.0-7.3) 03/04/20 04:05 Eos % (Auto) 1.1 % (0.0-4.3) 03/04/20 04:05 Baso % (Auto) 0.3 % (0.0-1.8) 03/04/20 04:05 Lymph # (Auto) 1.0 K/mm3 (1.2-5.4) L 03/04/20 04:05 [place] # (Auto) 2.0 K/mm3 (0.0-0.8) H 03/04/20 04:05 Eos # (Auto) 0.3 K/mm3 (0.0-0.4) 03/04/20 04:05 Baso # (Auto) 0.1 K/mm3 (0.0-0.1) 03/04/20 04:05 Add Manual Diff Complete 03/07/20 05:03 Total Counted 100 03/07/20 05:03 Seg Neutrophils % 88.6 % (40.0-70.0) H 03/04/20 04:05 Seg Neuts % (Manual) 89.0 % (40.0-70.0) H 03/07/20 05:03 Band Neutrophils % 2.0 % 03/07/20 05:03 Lymphocytes % (Manual) 4.0 % (13.4-35.0) L 03/07/20 05:03 Reactive Lymphs % (Man) 0 % 03/07/20 05:03 Monocytes % (Manual) 3.0 % (0.0-7.3) 03/07/20 05:03 Eosinophils % (Manual) 0 % (0.0-4.3) 03/07/20 05:03 Basophils % (Manual) 1.0 % (0.0-1.8) 03/07/20 05:03 Metamyelocytes % 0 % 03/07/20 05:03 Myelocytes % 1.0 % 03/07/20 05:03 Promyelocytes % 0 % 03/07/20 05:03 Blast Cells % 0 % 03/07/20 05:03 Nucleated RBC % Not Reportable 03/07/20 05:03 Seg Neutrophils # 26.6 K/mm3 (1.8-7.7) H 03/04/20 04:05 Seg Neutrophils # Man 23.9 K/mm3 (1.8-7.7) H 03/07/20 05:03 Band Neutrophils # 0.5 K/mm3 03/07/20 05:03 Lymphocytes # (Manual) 1.1 K/mm3 (1.2-5.4) L 03/07/20 05:03 Abs React Lymphs (Man) 0.0 K/mm3 03/07/20 05:03 Monocytes # (Manual) 0.8 K/mm3 (0.0-0.8) 03/07/20 05:03 Eosinophils # (Manual) 0.0 K/mm3 (0.0-0.4) 03/07/20 05:03 Basophils # (Manual) 0.3 K/mm3 (0.0-0.1) H 03/07/20 05:03 Metamyelocytes # 0.0 K/mm3 03/07/20 05:03 Myelocytes # 0.3 K/mm3 03/07/20 05:03 Promyelocytes # 0.0 K/mm3 03/07/20 05:03 Blast Cells # 0.0 K/mm3 03/07/20 05:03 WBC Morphology Not Reportable 03/07/20 05:03 Hypersegmented Neuts Not Reportable 03/07/20 05:03 Hyposegmented Neuts Not Reportable 03/07/20 05:03 Hypogranular Neuts Not Reportable 03/07/20 05:03 Smudge Cells Not Reportable 03/07/20 05:03 Toxic Granulation Not Reportable 03/07/20 05:03 Toxic Vacuolation Not Reportable 03/07/20 05:03 Dohle Bodies Not Reportable 03/07/20 05:03 Pelger-Huet Anomaly Not Reportable 03/07/20 05:03 Maia Rods Not Reportable 03/07/20 05:03 Platelet Estimate Consistent w auto 03/07/20 05:03 Clumped Platelets Not Reportable 03/07/20 05:03 Plt Clumps, EDTA Not Reportable 03/07/20 05:03 Large Platelets Not Reportable 03/07/20 05:03 Giant Platelets Not Reportable 03/07/20 05:03 Platelet Satelliting Not Reportable 03/07/20 05:03 Plt Morphology Comment Not Reportable 03/07/20 05:03 RBC Morphology Not Reportable 03/07/20 05:03 Dimorphic RBCs Not Reportable 03/07/20 05:03 Polychromasia Not Reportable 03/07/20 05:03 Hypochromasia 1+ 03/07/20 05:03 Poikilocytosis Not Reportable 03/07/20 05:03 Anisocytosis 1+ 03/07/20 05:03 Microcytosis Few 03/07/20 05:03 Macrocytosis Not Reportable 03/07/20 05:03 Spherocytes Not Reportable 03/07/20 05:03 Pappenheimer Bodies Not Reportable 03/07/20 05:03 Sickle Cells Not Reportable 03/07/20 05:03 Target Cells Not Reportable 03/07/20 05:03 Tear Drop Cells Not Reportable 03/07/20 05:03 Ovalocytes Not Reportable 03/07/20 05:03 Helmet Cells Not Reportable 03/07/20 05:03 [place] Bodies Not Reportable 03/07/20 05:03 Peridot Rings Not Reportable 03/07/20 05:03 Mirna Cells Not Reportable 03/07/20 05:03 Bite Cells Not Reportable 03/07/20 05:03 Crenated Cell Not Reportable 03/07/20 05:03 Elliptocytes Not Reportable 03/07/20 05:03 Acanthocytes (Spur) Not Reportable 03/07/20 05:03 Rouleaux Not Reportable 03/07/20 05:03 Hemoglobin C Crystals Not Reportable 03/07/20 05:03 Schistocytes Not Reportable 03/07/20 05:03 Malaria parasites Not Reportable 03/07/20 05:03 Edgardo Bodies Not Reportable 03/07/20 05:03 Hem Pathologist Commnt No 03/07/20 05:03 PT 13.7 Sec. (12.2-14.9) 02/25/20 03:49 INR 1.03 (0.87-1.13) 02/25/20 03:49 ABG pH 7.380 (7.320-7.450) 03/06/20 04:41 POC ABG pCO2 46.4 mmHg (32.0-48.0) 03/06/20 04:41 ABG pCO2 43.1 mm Hg 03/05/20 05:04 POC ABG pO2 64.9 mmHg (83-108) L 03/06/20 04:41 ABG pO2 62.5 mm Hg (80.0-90.0) L 03/05/20 05:04 POC ABG HCO3 26.8 03/06/20 04:41 ABG HCO3 26.4 mmol/L (20.0-26.0) H 03/05/20 05:04 ABG O2 Saturation 92.1 % (95.0-99.0) L 03/05/20 05:04 ABG O2 Content 11.9 (0.0-44) 03/05/20 05:04 POC ABG Base Excess 1.4 03/06/20 04:41 ABG Base Excess 1.5 mmol/L (-2.0-3.0) 03/05/20 05:04 ABG Hemoglobin 9.9 (12.0-17.5) L 03/06/20 04:41 ABG Oxyhemoglobin 90.5 (94-98) L 03/06/20 04:41 ABG Carboxyhemoglobin 1.9 % (0.0-5.0) 03/05/20 05:04 ABG Methemoglobin 0.3 (0.0-1.5) 03/06/20 04:41 Oxyhemoglobin 89.9 % (95.0-99.0) L 03/05/20 05:04 Carboxyhemoglobin 1 (0.5-1.5) 03/06/20 04:41 FiO2 30.0 03/06/20 04:41 Sodium 137 mmol/L (137-145) 03/09/20 04:00 Potassium 3.8 mmol/L (3.6-5.0) 03/09/20 04:00 Chloride 92.8 mmol/L (98-107) L 03/09/20 04:00 Carbon Dioxide 25 mmol/L (22-30) 03/09/20 04:00 Anion Gap 23 mmol/L 03/09/20 04:00 BUN 74 mg/dL (7-17) H 03/09/20 04:00 Creatinine 7.8 mg/dL (0.6-1.2) H 03/09/20 04:00 Estimated GFR 7 ml/min 03/09/20 04:00 BUN/Creatinine Ratio 9 % 03/09/20 04:00 Glucose 92 mg/dL (65-100) 03/09/20 04:00 POC Glucose 99 (70-105) 03/09/20 06:02 Lactic Acid 0.90 mmol/L (0.7-2.0) 02/27/20 19:33 Calcium 9.3 mg/dL (8.4-10.2) 03/09/20 04:00 Phosphorus 6.10 mg/dL (2.5-4.5) H 03/01/20 04:37 Magnesium 2.00 mg/dL (1.7-2.3) 03/07/20 05:03 Total Bilirubin 0.50 mg/dL (0.1-1.2) 03/07/20 05:03 Direct Bilirubin 0.6 mg/dL (0-0.2) H 03/05/20 06:00 Indirect Bilirubin 0.3 mg/dL 03/05/20 06:00 AST 40 units/L (5-40) 03/07/20 05:03 ALT 19 units/L (7-56) 03/07/20 05:03 Alkaline Phosphatase 132 units/L (35-129) H 03/07/20 05:03 C-Reactive Protein 36.50 mg/dL (0.00-1.30) H 03/01/20 11:06 Serum Total Protein 6.3 g/dL (6.1-8.1) 02/26/20 04:39 Total Protein 6.7 g/dL (6.3-8.2) 03/07/20 05:03 Albumin 2.5 g/dL (3.9-5) L 03/07/20 05:03 Albumin/Globulin Ratio 0.6 % 03/07/20 05:03 Lyuww-8-Fyuzzjvjb 0.7 g/dL (0.2-0.3) H 02/26/20 04:39 Qbhxk-3-Pvjrxcbne 0.8 g/dL (0.5-0.9) 02/26/20 04:39 Beta Globulins 0.4 g/dL (0.2-0.5) 02/26/20 04:39 Gamma Globulins 1.2 g/dL (0.8-1.7) 02/26/20 04:39 Abnorm Protein Band 1 see below 02/26/20 04:39 PEP Interpretation see below H 02/26/20 04:39 Triglycerides 118 mg/dL (2-149) 02/26/20 04:39 Lipase 72 units/L (13-60) H 03/04/20 19:00 HCG, Qual Negative (Negative) 02/24/20 02:53 PTH Intact 911.3 pg/mL (15-65) H 02/26/20 08:15 Urine Color Yellow (Yellow) 02/24/20 Unknown Urine Turbidity Clear (Clear) 02/24/20 Unknown Urine pH 6.0 (5.0-7.0) 02/24/20 Unknown Ur Specific [place] 1.020 (1.003-1.030) 02/24/20 Unknown Urine Protein >500 mg/dL (Negative) 02/24/20 Unknown Urine Glucose (UA) 50 mg/dL (Negative) 02/24/20 Unknown Urine Ketones Neg mg/dL (Negative) 02/24/20 Unknown Urine Blood Lg (Negative) 02/24/20 Unknown Urine Nitrite Neg (Negative) 02/24/20 Unknown Urine Bilirubin Neg (Negative) 02/24/20 Unknown Urine Urobilinogen < 2.0 mg/dL (<2.0) 02/24/20 Unknown Ur Leukocyte Esterase Neg (Negative) 02/24/20 Unknown Urine WBC (Auto) 11.0 /HPF (0.0-6.0) H 02/24/20 Unknown Urine RBC (Auto) 149.0 /HPF (0.0-6.0) 02/24/20 Unknown U Epithel Cells (Auto) 5.0 /HPF (0-13.0) 02/24/20 Unknown Urine Bacteria (Auto) 1+ /HPF (Negative) 02/24/20 Unknown Urine Mucus Few /HPF 02/24/20 Unknown Urine Creatinine 161.0 mg/dL (0.1-20.0) H 02/25/20 22:55 Protein/Creatinin Ratio 0.93 02/25/20 22:55 Urine Total Protein 150 mg/dL (5-11.8) H 02/25/20 22:55 ZINA Screen Positive (Negative) H 02/26/20 04:39 Proteinase 3 (PR3) Ab <1.0 AI (<1.0) 02/26/20 04:39 Myeloperoxidase Ab <1.0 AI (<1.0) 02/26/20 04:39 Complement C3 153 mg/dL (83-193) 02/26/20 04:39 Complement C4 35 mg/dL (15-57) 02/26/20 04:39 Hepatitis A IgM Ab Non-reactive (NonReactive) 03/03/20 12:34 Hep Bs Antigen Non-reactive (Negative) 03/03/20 12:34 Hep B Core IgM Ab Non-reactive (NonReactive) 03/03/20 12:34 Hepatitis C Antibody Non-reactive (NonReactive) 03/03/20 12:34 Blood Type AB POSITIVE 03/01/20 18:30 Antibody Screen Negative 03/01/20 18:30 Crossmatch See Detail 03/01/20 18:30 Microbiology: Microbiology 03/06/20 18:18 Peripheral/Venous Blood Culture - Preliminary NO GROWTH AFTER 48 HOURS 03/07/20 Unknown Tracheal Aspirate Sputum Culture - Preliminary - Diagnostic Impressions Diagnostic Impressions: Echocardiogram 02/26/20 09:11 Transthoracic Echocardiogram Indication: Cardiomegaly BP: 149/92 HR: 122 Conclusions *Global left ventricular systolic function is normal. *The estimated ejection fraction is 60-65%. *Moderate to severe concentric left ventricular hypertrophy is observed. *The left atrium is mild to moderately dilated. *The aortic valve leaflets are moderately thickened. *A mean gradient of 22.39 mmHg across the outflow tract is likely not due to but hyperdynamic flow and LVH. *There is trace tricuspid regurgitation. Findings Left Ventricle: The left ventricular chamber size is normal. Moderate to severe concentric left ventricular hypertrophy is observed. Global left ventricular systolic function is normal. The estimated ejection fraction is 60-65%. Left Atrium: The left atrium is mild to moderately dilated. Right Ventricle: The right ventricular cavity size is normal. The right ventricular global systolic function is normal. Right Atrium: The right atrial cavity size is normal. Aortic Valve: The aortic valve leaflets are moderately thickened. There is no evidence of aortic regurgitation. The mean gradient of the aortic valve is 22.39 mmHg. Mitral Valve: The mitral valve leaflets are mildly thickened. There is trace of mitral regurgitation. There is no evidence of mitral stenosis. Tricuspid Valve: There is trace tricuspid regurgitation. No pulmonary hypertension is noted. Pulmonic Valve: There is trace pulmonic regurgitation. Pericardium: There is no pericardial effusion. Aorta: There is no dilatation of the ascending aorta. There is no dilatation of the aortic root. Venous: The inferior vena cava appears normal in size. Measurements Chambers 2D Name Value Normal Range IVSd (2D) 1.8 cm (0.6 - 1.1) LVPWd (2D) 1.74 cm (0.6 - 1.1) LVIDd (2D) 4.57 cm (3.7 - 5.6) LVIDs (2D) 2.73 cm (2 - 3.8) LV FS (2D) 40.27 % - EF Teichholz (2D) 71.04 % - Ao root diameter (2D) 2.79 cm (2 - 3.7) Volumes/Mass Name Value Normal Range LA ESV SP 4CH (A/L) 54.18 ml - LA ESV SP 2CH (A/L) 61.84 ml - LA ESV BP (A/L) 58.1 ml - LA ESV BP (A/L) index 30.74 ml/m2 - LA ESV SP 4CH (MOD) 52.89 ml - LA ESV SP 2CH (MOD) 60.65 ml - LA ESV BP (MOD) 56.77 ml - LA ESV BP (MOD) index 30.04 ml/m2 - LV EDV SP 4CH (MOD) 164.2 ml - LV ESV SP 4CH (MOD) 58.04 ml - EF SP 4CH (MOD) 64.65 % - Diastolic/Systolic Function Name Value Normal Range MV E-wave Vmax 1.38 m/sec - MV deceleration time 92.78 msec - MV A-wave Vmax 1.44 m/sec - MV E:A ratio 0.95 ratio - Aortic Valve Name Value Normal Range AV Vmax 3.08 m/sec - AV VTI 36.74 cm - AV peak gradient 37.98 mmHg - AV mean gradient 22.39 mmHg - LVOT diameter 2.01 cm - LVOT Vmax 2.45 m/sec - LVOT VTI 29.85 cm - LVOT peak gradient 24.04 mmHg - LVOT mean gradient 11.11 mmHg - SV LVOT 94.73 ml - JADA (continuity Vmax) 2.52 cm2 - JADA (continuity VTI) 2.58 cm2 - Ascending Ao 2.64 cm - Mitral Valve Name Value Normal Range MV PHT 37.88 msec - MVA (PHT) 5.81 cm2 - Tricuspid Valve Name Value Normal Range IVC diameter 1.93 cm (1.2 - 2.3) Pulmonic Valve/Qp:Qs Name Value Normal Range PV Vmax 2.83 m/sec - PV VTI 45.88 cm - PV peak gradient 32.06 mmHg - PV mean gradient 16.11 mmHg - NC end-diastolic Vmax 0.81 m/sec - RVOT Vmax 1.82 m/sec - RVOT VTI 25.12 cm - RVOT peak gradient 13.3 mmHg - Franks/IV: Voiding Method External Female Catheter IV Catheter Type [Right VAS Cath Internal Jugular] IV Catheter Type [Left Upper INT / Saline Lock arm] IV Catheter Type [Right Upper INT / Saline Lock arm] IV Catheter Type [Right INT / Saline Lock Forearm] IV Catheter Type [Right Wrist] Peripheral IV IV Catheter Type [Right Peripheral IV Antecubital] Active Medications - Current Medications Current Medications: Generic Name Dose Route Start Last Admin Trade Name Freq PRN Reason Stop Dose Admin Acetaminophen 650 mg 02/26/20 16:23 03/08/20 16:43 Tylenol PO 650 mg Q4H PRN Administration Pain, Mild (1-3)/ Temp >100. Albuterol 2.5 mg 02/27/20 17:55 Proventil IH Q4HRT PRN Shortness Of Breath Albuterol/Ipratropium 1 ampul 02/28/20 12:17 03/09/20 07:20 Duoneb *Not For Prn Use* IH 1 ampul Q6HRT INDU Administration Amlodipine Besylate 10 mg 02/28/20 10:00 03/09/20 09:11 Amlodipine PO 10 mg QDAY INDU Administration Lipase/Protease/Amylase 1 each 03/01/20 08:[address] 10,500 Unit FEEDTUBE PRN PRN For Clogged Feeding Tube Dextrose 50 ml 02/29/20 08:00 03/01/20 00:20 D50w (25gm) Syringe IV 10 ml Q30MIN PRN Administration HYPOGLYCEMIA Protocol Fentanyl 50 mcg 02/29/20 15:35 03/04/20 20:35 Sublimaze IV 50 mcg Q10MIN PRN Administration ANALGESIA Heparin Sodium (Porcine) 5,000 unit 02/24/20 14:00 03/09/20 05:31 Heparin SUB-Q 5,000 unit Q8HR INDU Administration Hydralazine HCl 25 mg 03/04/20 14:00 03/09/20 05:34 Apresoline PO Not Given Q8HR INDU Hydrophilic Ointment 1 applic 02/29/20 15:35 Vaseline Lip Therapy TP Q2HR PRN Dry Lips Fentanyl Citrate 2,000 mcg in 100 mls @ 4.55 mls/hr 02/29/20 16:00 03/09/20 08:20 Fentanyl Drip Premix IV 0 mcg/kg/hr TITR INDU 0 mls/hr Titration Protocol 1 MCG/KG/HR MEROPENEM/NS 1 GRAM/100 ML 1 gram in 100 mls @ 100 mls/hr 03/03/20 18:00 03/08/20 18:32 Merrem/Ns 1 Gram/100 Ml IV 100 mls/hr QPM INDU Administration Protocol Sodium Chloride 100 mls @ 999 mls/hr 03/08/20 17:05 Nacl 0.9% IV NIKOLAY PRN Hypotension Labetalol HCl 10 mg 02/28/20 09:00 03/05/20 04:10 Labetalol IV 10 mg Q4H PRN Administration Hypertension Lansoprazole 30 mg 03/06/20 10:00 03/09/20 09:13 Prevacid Solutab FEEDTUBE 30 mg QDAY INDU Administration Lorazepam 4 mg 03/06/20 11:00 03/07/20 18:12 Ativan IV 4 mg Q4H PRN Administration AGITATION Metoprolol Tartrate 25 mg 02/28/20 10:00 03/09/20 09:12 Metoprolol PO 25 mg BID INDU Administration Multi-Ingred Cream/Lotion/Oil/Oint 1 applic 02/29/20 15:35 Artificial Tears Ophth Oint OU Q4HR PRN Dry Eye(s) Ondansetron HCl 4 mg 02/24/20 06:45 02/25/20 23:33 Zofran IV 4 mg Q8H PRN Administration Nausea And Vomiting Quetiapine Fumarate 100 mg 03/06/20 10:00 03/09/20 09:11 Seroquel PO 100 mg QAM INDU Administration Quetiapine Fumarate 200 mg 03/06/20 22:00 03/08/20 21:44 Seroquel PO 200 mg QHS INDU Administration Scopolamine 1 each 03/04/20 16:00 03/07/20 11:54 Transderm-Scop TD 1 each Q3D INDU Administration Simple Syrup 15 ml 03/01/20 08:46 Simple Syrup FEEDTUBE PRN PRN Hypoglycemia Simple Syrup 30 ml 03/01/20 08:46 Simple Syrup FEEDTUBE PRN PRN Hypoglycemia Sodium Bicarbonate 325 mg 03/01/20 08:46 Sodium Bicarbonate FEEDTUBE PRN PRN For Clogged Feeding Tube Sodium Chloride 10 ml 02/24/20 10:00 03/09/20 09:13 Sodium Chloride Flush Syringe 10 Ml IV 10 ml BID INDU Administration Sodium Chloride 10 ml 02/24/20 06:45 Sodium Chloride Flush Syringe 10 Ml IV PRN PRN LINE FLUSH Tamsulosin HCl 0.4 mg 03/01/20 17:00 03/09/20 09:13 Flomax PO 0.4 mg QDAY INDU Administration Nutrition/Malnutrition Assess - Dietary Evaluation Nutrition/Malnutrition Findings: Nutrition Notes Start: 02/24/20 13:42 Freq: Status: Active Protocol: Document 03/06/20 13:32 [email or web address] (Rec: 03/06/20 13:41 [email or web address]) Co-Sign 03/06/20 13:32 MK Nutrition Notes Initial or Follow up Reassessment Current Diagnosis Acute Kidney Injury,Sepsis, Hypertension,Respiratory Failure,Hyperlipidemia Other Pertinent Diagnosis Acute pancreatitis, HD Current Diet Nepro 1.8 at 35ml/hr Labs/Tests BUN 70 Cr 7.1 BG 113 Pertinent Medications Reviewed Height 5 ft 1 in Weight 91 kg [place] Body Weight (kg) 47.72 BMI 37.9 Weight Status Obese Subjective/Other Information F/U for stable TF. Pt TF running at goal rate and tolerating. Percent of energy/protein needs met: 100%/70% Burn Absent Trauma Absent GI Symptoms None Current % PO Negligible Minimum of two criteria No Fluid Accumulation Moderate to Severe (severe) #2 Nutrition Diagnosis Inadequate oral intake Diagnosis Progress(for reassessment Continues documentation) #1 Nutrition Diagnosis Food and nutrition-related knowledge deficit Diagnosis Progress(for reassessment Continues documentation) Is patient on ventilator? Yes Is Patient Ambulatory and/or Out of Bed No REE-([facility]-confined to bed) 1823.604 Kcal/Kg value to use for calculation 16 Approximate Energy Requirements Using 1456 kcal/Kg Calculation Used for Recommendations Kcal/kg Additional Notes Pro: 96g (>2g/kg IBW) Fluid: 1ml/kcal Nutrition Intervention Change Diet Order: Continue TF Nutrition Support: Nepro 1.8 at 35ml/hr Flush 150ml q4h Kcal 1,512 Protein (gm) 68 Fluid (mL) 611 Goal #1 TF tolerance Goal #2 Meet at least 80% of energy and protein needs via TF Anticipated Discharge Needs: Undetermined at this time Follow-Up By: 03/11/20 Additional Comments F/U stable TF
--- NOTE | 2020-03-09 10:45 | Progress Note ---
Assessment and Plan Cultures: Urine culture grew 10-100,000 usual xavier. Blood culture 02/26/2020 no growth 02/29/2020 sputum culture: rare usual [place]avier 03/06/2020 blood culture: no growth 03/07/2020 sputum culture: no growth thus far Assessment: 39 years old female with history of hypertension, previous kidney stone, hyperlipidemia and obesity admitted on 02/24/2020 due to a week history of severe epigastric abdominal pain radiated to the right flank and back: #Acute sepsis: Likely secondary to severe pancreatitis and related complications. Remains critically ill. #Acute severe pancreatitis: Unclear etiology. Initial non-contrasted CT showed no evidence of necrosis or pseudocyst or abscess formation. Repeat CT 03/05 with interval worsening of acute pancreatitis without clear evidence of necrosis, however was done without IV contrast due to her renal function. #Acute renal failure: now requiring dialysis. Nephrology on board. #Acute respiratory hypoxic failure: on the vent. #?Alcohol abuse Recommendations: -continue with IV Meropenem, renally dosed, D7 today. Plan to stop once clinically better / WBC better -ongoing fevers likely to due severe pancreatitis. WBC is improving Louie Graves MD, FACP [facility] ([facility] C: [phone] O: [phone] F: [phone] Subjective Date of service: 03/09/20 Principal diagnosis: HTNsive urgency; Morbid obesity; Ac. pancreatitis; Abdominal pain Interval history: Remains febrile intermittently. Awake, responsive but intubated on the vent. Says she is passing gas. Objective - Exam Narrative Exam: Physical Exam: Constitutional: awake, responsive, intubated, on the vent Head, Ears, Nose: Normocephalic, atraumatic. External ears, nose normal Eyes: Conjunctivae/corneas clear. No icterus. No ptosis. Neck: intubated Oral: intubated Cardiovascular: S1, S2 + Respiratory: AE fair but reduced in the bases GI: distended, mild tenderness, bowel sounds + Musculoskeletal: No pedal edema, no cyanosis. HD cath + Skin: No rash or abscess Hem/Lymphatic: No palpable cervical or supraclavicular nodes. No lymphangitis Psych: no agitation, calm Neurological: awake, responsive, intubated, on the vent - Constitutional Vitals: Vital Signs Temp Pulse Resp BP Pulse Ox 99.8 F H 95 H 25 H 125/72 98 03/09/20 08:00 03/09/20 10:00 03/09/20 10:00 03/09/20 10:00 03/09/20 09:00 Temperature -Last 24 Hours Temperature 99.8 F Temperature 100.2 F Temperature 99.9 F Temperature 100.1 F Temperature 101.3 F Temperature 99.7 F - Labs CBC & Chem 7: 03/09/20 07:53 03/09/20 04:00 Labs: Abnormal lab results 03/08/20 03/08/20 03/09/20 Range/Units 17:45 23:53 04:00 WBC (4.5-11.0) K/mm3 RBC (3.65-5.03) M/mm3 Hgb (10.1-14.3) gm/dl Hct (30.3-42.9) % MCV (79-97) fl MCH (28-32) pg RDW (13.2-15.2) % Plt Count (140-440) K/mm3 Chloride 92.8 L (98-107) mmol/L BUN 74 H (7-17) mg/dL Creatinine 7.8 H (0.6-1.2) mg/dL POC Glucose 106 H 106 H (70-105) 03/09/20 Range/Units 07:53 WBC 21.9 H (4.5-11.0) K/mm3 RBC 3.27 L (3.65-5.03) M/mm3 Hgb 7.5 L (10.1-14.3) gm/dl Hct 24.3 L (30.3-42.9) % MCV 74 L (79-97) fl MCH 23 L (28-32) pg RDW 20.9 H (13.2-15.2) % Plt Count 488 H (140-440) K/mm3 Chloride (98-107) mmol/L BUN (7-17) mg/dL Creatinine (0.6-1.2) mg/dL POC Glucose (70-105)
--- NOTE | 2020-03-09 11:02 | Progress Note ---
Assessment and Plan Acute Hypoxemic Respiratory Failure on MVS Severe Sepsis Acute Toxic-Metabolic Encephalopathy Hypertensive urgency Morbid obesity Acute pancreatitis, abdominal pain Medical non compliance Oropharyngeal Dysphagia If she tolerates SBT, get weaning parameters. Plan to liberate from MVS after HD today - HD/UF for toxin and volume clearance per Renal service, HD/UF today - daily SAT and SBT assessment as tolerated - on minimal vent settings at this time - continue current vent settings - continue to hold fentanyl for SBT , add Seroquel. - accuchecks with glycemic control per SSI (While critically ill target blood glucose of 140-180 mg/dL; avoid hypoglycemia) - sedation for target RASS -1 to -2 - continue to wean supplemental oxygen for target O2 sats > 90% - VAP bundle addressed - continue lung protective strategies - continue bronchodilators with pulmonary hygiene per RT - wean per pulmonary driven protocols otherwise - continue enteral nutritiuon at goal rate as tolerated - complete Meropenem; de-escalate per ID rec's - JUANIS per clinical staff rn, ARTIS[employer] - VTE prophylaxis-Heparin - prn Analgesia per CPOT score - avoid nephrotoxins, renally dose all medications - Maintenance of sleep-wake cycle, avoid delirium - Stress ulcer prophylaxis-PPI - mobility protocol, off loading and frequent turning for pressure ulcer prevention - Monitor hemodynamics closely CONDITION: CRITICAL PROGNOSIS: GUARDED CODE STATUS: FULL CODE The high probability of a clinically significant, sudden or life-threatening deterioration of the [respiratory, cardiovascular & GI] system(s) required my full and direct attention, intervention and personal management. The aggregate critical care time was [34] minutes without overlap. Time includes spent on; [x] Data Review and interpretation [x] Patient assessment and monitoring of vital signs [x] Documentation [x] Medication orders and management Subjective Date of service: 03/09/20 Principal diagnosis: HTNsive urgency; Morbid obesity; Ac. pancreatitis; Abdominal pain Interval history: Patient is seen today for: Acute hypoxemic respiratory failure on MVS; Hypertensive urgency; Morbid obesity; Acute pancreatitis; abdominal pain; Medical non compliance; Acute Toxic Metabolic Encephalopathy Seen and examined at bedside; 24hour events reviewed; nursing and respiratory care staff consulted; no adverse overnight events reported to me; resting peacefully in bed; remains on MVS; episodes of agitation overnight requiring prn doses of Lorazepam; On Klonipin, Fentanyl off on PSV 03/10, tolerating it Awaiting HD Objective Vital Signs - 12hr 10/04/20 10/04/20 10/05/20 23:30 23:46 00:00 Temperature 99.9 F H Pulse Rate 86 107 H 102 H Pulse Rate [ Anterior Bilateral Throughout] Pulse Rate [ From Monitor] Respiratory 21 Rate Respiratory Rate [Anterior Bilateral Throughout] Blood Pressure 111/60 O2 Sat by Pulse 96 94 Oximetry 03/09/20 03/09/20 03/09/20 00:01 00:31 01:00 Temperature Pulse Rate 100 H 99 H 97 H Pulse Rate [ Anterior Bilateral Throughout] Pulse Rate [ From Monitor] Respiratory 20 20 20 Rate Respiratory Rate [Anterior Bilateral Throughout] Blood Pressure 111/60 111/60 122/79 O2 Sat by Pulse 96 96 97 Oximetry 03/09/20 03/09/20 03/09/20 01:30 02:00 02:30 Temperature Pulse Rate 97 H 96 H 98 H Pulse Rate [ Anterior Bilateral Throughout] Pulse Rate [ From Monitor] Respiratory 20 20 20 Rate Respiratory Rate [Anterior Bilateral Throughout] Blood Pressure 134/84 123/78 125/79 O2 Sat by Pulse 97 98 97 Oximetry 03/09/20 03/09/20 03/09/20 03:00 03:30 04:00 Temperature 100.2 F H Pulse Rate 92 H 92 H 86 Pulse Rate [ Anterior Bilateral Throughout] Pulse Rate [ From Monitor] Respiratory 20 20 20 Rate Respiratory Rate [Anterior Bilateral Throughout] Blood Pressure 113/66 117/64 104/53 O2 Sat by Pulse 98 99 99 Oximetry 03/09/20 03/09/20 03/09/20 04:16 04:30 05:00 Temperature Pulse Rate 88 89 88 Pulse Rate [ 88 Anterior Bilateral Throughout] Pulse Rate [ From Monitor] Respiratory 20 20 Rate Respiratory 20 Rate [Anterior Bilateral Throughout] Blood Pressure 113/62 109/62 111/63 O2 Sat by Pulse 99 99 99 Oximetry 03/09/20 03/09/20 03/09/20 05:30 05:34 06:00 Temperature Pulse Rate 88 88 Pulse Rate [ Anterior Bilateral Throughout] Pulse Rate [ From Monitor] Respiratory 20 20 Rate Respiratory Rate [Anterior Bilateral Throughout] Blood Pressure 113/65 113/65 119/69 O2 Sat by Pulse 98 99 Oximetry 03/09/20 03/09/20 03/09/20 06:30 07:00 07:20 Temperature Pulse Rate 86 87 108 H Pulse Rate [ 108 H Anterior Bilateral Throughout] Pulse Rate [ From Monitor] Respiratory 20 20 Rate Respiratory 23 Rate [Anterior Bilateral Throughout] Blood Pressure 118/72 115/68 172/109 O2 Sat by Pulse 100 99 98 Oximetry 03/09/20 03/09/20 03/09/20 07:30 07:35 08:00 Temperature 99.8 F H Pulse Rate 110 H 115 H 113 H Pulse Rate [ Anterior Bilateral Throughout] Pulse Rate [ 111 H From Monitor] Respiratory 21 27 H 25 H Rate Respiratory Rate [Anterior Bilateral Throughout] Blood Pressure 152/96 134/89 158/95 O2 Sat by Pulse 98 98 96 Oximetry 03/09/20 03/09/20 03/09/20 08:30 09:00 09:11 Temperature Pulse Rate 112 H 112 H 117 H Pulse Rate [ Anterior Bilateral Throughout] Pulse Rate [ From Monitor] Respiratory 26 H 27 H Rate Respiratory Rate [Anterior Bilateral Throughout] Blood Pressure 144/88 134/89 134/89 O2 Sat by Pulse 97 98 Oximetry 03/09/20 03/09/20 03/09/20 09:12 09:30 10:00 Temperature Pulse Rate 119 H 102 H 95 H Pulse Rate [ Anterior Bilateral Throughout] Pulse Rate [ From Monitor] Respiratory 27 H 25 H Rate Respiratory Rate [Anterior Bilateral Throughout] Blood Pressure 134/89 128/69 125/72 O2 Sat by Pulse Oximetry Constitutional: no acute distress, other (Obese female with mildly increased respiratory effort at rest on MVS, ) Eyes: non-icteric ENT: oropharynx moist, other (ETT 24 cm TY, RIJ HD trialysis catheter) Neck: supple, no lymphadenopathy, no JVD Effort: normal Ascultation: Bilateral: diminished breath sounds (at the bases), wheezes (expi ratory), rales, rhonchi Percussion: Bilateral: not dull Cardiovascular: regular rate and rhythm, other (S1,S2) Gastrointestinal: hypoactive bowel sounds, non-tender, other (distended and firm) Integumentary: normal Extremities: no cyanosis, no edema, pink and warm, pulses normal Neurologic: non-focal exam, pupils equal and round, motor strength normal and Psychiatric: mood appropriate, affect normal CBC and BMP: 03/10/20 04:37 03/10/20 04:37 ABG, PT/INR, D-dimer: ABG ABG pH 7.380 (7.320-7.450) 03/06/20 04:41 POC ABG pCO2 46.4 mmHg (32.0-48.0) 03/06/20 04:41 ABG pCO2 43.1 mm Hg 03/05/20 05:04 POC ABG pO2 64.9 mmHg (83-108) L 03/06/20 04:41 ABG pO2 62.5 mm Hg (80.0-90.0) L 03/05/20 05:04 POC ABG HCO3 26.8 03/06/20 04:41 ABG O2 Saturation 92.1 % (95.0-99.0) L 03/05/20 05:04 PT/INR, D-dimer PT 13.7 Sec. (12.2-14.9) 02/25/20 03:49 INR 1.03 (0.87-1.13) 02/25/20 03:49 Abnormal lab findings: Abnormal Labs 02/24/20 02/24/20 02/24/20 02:53 02:53 Unknown WBC 12.7 H Hgb 10.0 L RBC Hct MCV 70 L MCH 22 L RDW 17.9 H Plt Count 458 H Lymph % (Auto) 8.9 L Lymph # 1.1 L [place] # Lymph # (Auto) [place] # (Auto) Seg Neutrophils % 84.2 H Seg Neutrophils # 10.7 H Seg Neuts % (Manual) Lymphocytes % (Manual) Nucleated RBC % Seg Neutrophils # Man Lymphocytes # (Manual) Monocytes # (Manual) Eosinophils # (Manual) Basophils # (Manual) ABG pH POC ABG pCO2 POC ABG pO2 ABG pO2 ABG HCO3 ABG O2 Saturation ABG Base Excess ABG Hemoglobin ABG Oxyhemoglobin Oxyhemoglobin Sodium Potassium Chloride Carbon Dioxide BUN 27 H Creatinine 1.7 H Glucose 118 H POC Glucose Calcium Phosphorus Magnesium Direct Bilirubin Alkaline Phosphatase Albumin C-Reactive Protein Liibt-6-Xocvfalez PEP Interpretation Lipase 232 H PTH Intact Urine WBC (Auto) 11.0 H Urine Creatinine Urine Total Protein ZINA Screen Crossmatch 02/25/20 02/25/20 02/25/20 00:03 03:49 03:49 WBC 29.1 H Hgb 9.4 L RBC Hct 30.2 L MCV 71 L MCH 22 L RDW 18.3 H Plt Count 525 H Lymph % (Auto) 3.4 L Lymph # 1.0 L [place] # 1.0 H Lymph # (Auto) [place] # (Auto) Seg Neutrophils % Seg Neutrophils # 26.4 H Seg Neuts % (Manual) Lymphocytes % (Manual) Nucleated RBC % Seg Neutrophils # Man Lymphocytes # (Manual) Monocytes # (Manual) Eosinophils # (Manual) Basophils # (Manual) ABG pH POC ABG pCO2 POC ABG pO2 ABG pO2 ABG HCO3 ABG O2 Saturation ABG Base Excess ABG Hemoglobin ABG Oxyhemoglobin Oxyhemoglobin Sodium Potassium Chloride Carbon Dioxide BUN Creatinine Glucose POC Glucose 126 H Calcium Phosphorus Magnesium Direct Bilirubin Alkaline Phosphatase Albumin C-Reactive Protein Uhmbj-1-Eqfhlquhi PEP Interpretation Lipase 1486 H PTH Intact Urine WBC (Auto) Urine Creatinine Urine Total Protein ZINA Screen Crossmatch 02/25/20 02/25/20 02/25/20 03:49 05:55 22:55 WBC Hgb RBC Hct MCV MCH RDW Plt Count Lymph % (Auto) Lymph # [place] # Lymph # (Auto) [place] # (Auto) Seg Neutrophils % Seg Neutrophils # Seg Neuts % (Manual) Lymphocytes % (Manual) Nucleated RBC % Seg Neutrophils # Man Lymphocytes # (Manual) Monocytes # (Manual) Eosinophils # (Manual) Basophils # (Manual) ABG pH POC ABG pCO2 POC ABG pO2 ABG pO2 ABG HCO3 ABG O2 Saturation ABG Base Excess ABG Hemoglobin ABG Oxyhemoglobin Oxyhemoglobin Sodium 136 L Potassium Chloride 97.9 L Carbon Dioxide 21 L BUN 39 H Creatinine 3.0 H D Glucose 118 H POC Glucose 124 H Calcium Phosphorus Magnesium Direct Bilirubin Alkaline Phosphatase Albumin 3.6 L C-Reactive Protein Ttusb-1-Qammlzirs PEP Interpretation Lipase PTH Intact Urine WBC (Auto) Urine Creatinine 161.0 H Urine Total Protein 150 H ZINA Screen Crossmatch 02/26/20 02/26/20 02/26/20 04:39 04:39 04:39 WBC 30.3 H Hgb 9.1 L RBC Hct 29.8 L MCV 71 L MCH 22 L RDW 18.2 H Plt Count 530 H Lymph % (Auto) Lymph # [place] # Lymph # (Auto) [place] # (Auto) Seg Neutrophils % Seg Neutrophils # Seg Neuts % (Manual) Lymphocytes % (Manual) Nucleated RBC % Seg Neutrophils # Man Lymphocytes # (Manual) Monocytes # (Manual) Eosinophils # (Manual) Basophils # (Manual) ABG pH POC ABG pCO2 POC ABG pO2 ABG pO2 ABG HCO3 ABG O2 Saturation ABG Base Excess ABG Hemoglobin ABG Oxyhemoglobin Oxyhemoglobin Sodium Potassium Chloride Carbon Dioxide 19 L BUN 44 H Creatinine 3.1 H Glucose 106 H POC Glucose Calcium 8.1 L Phosphorus Magnesium Direct Bilirubin Alkaline Phosphatase Albumin C-Reactive Protein Wddwb-5-Neqhwrcbs PEP Interpretation Lipase 540 H PTH Intact Urine WBC (Auto) Urine Creatinine Urine Total Protein ZINA Screen Positive H Crossmatch 02/26/20 02/26/20 02/26/20 04:39 08:15 12:14 WBC Hgb RBC Hct MCV MCH RDW Plt Count Lymph % (Auto) Lymph # [place] # Lymph # (Auto) [place] # (Auto) Seg Neutrophils % Seg Neutrophils # Seg Neuts % (Manual) Lymphocytes % (Manual) Nucleated RBC % Seg Neutrophils # Man Lymphocytes # (Manual) Monocytes # (Manual) Eosinophils # (Manual) Basophils # (Manual) ABG pH POC ABG pCO2 POC ABG pO2 ABG pO2 ABG HCO3 ABG O2 Saturation ABG Base Excess ABG Hemoglobin ABG Oxyhemoglobin Oxyhemoglobin Sodium Potassium Chloride Carbon Dioxide BUN Creatinine Glucose POC Glucose 112 H Calcium Phosphorus Magnesium Direct Bilirubin Alkaline Phosphatase Albumin 2.8 L C-Reactive Protein Uhqkk-8-Ainrhdetl 0.7 H PEP Interpretation see below H Lipase PTH Intact 911.3 H Urine WBC (Auto) Urine Creatinine Urine Total Protein ZINA Screen Crossmatch 02/27/20 02/27/20 02/27/20 04:18 04:18 04:18 WBC 26.8 H Hgb 7.9 L RBC Hct 26.3 L MCV 70 L MCH 21 L RDW 18.0 H Plt Count 513 H Lymph % (Auto) Lymph # [place] # Lymph # (Auto) [place] # (Auto) Seg Neutrophils % Seg Neutrophils # Seg Neuts % (Manual) Lymphocytes % (Manual) Nucleated RBC % Seg Neutrophils # Man Lymphocytes # (Manual) Monocytes # (Manual) Eosinophils # (Manual) Basophils # (Manual) ABG pH POC ABG pCO2 POC ABG pO2 ABG pO2 ABG HCO3 ABG O2 Saturation ABG Base Excess ABG Hemoglobin ABG Oxyhemoglobin Oxyhemoglobin Sodium 135 L 135 L Potassium Chloride Carbon Dioxide 15 L 16 L BUN 50 H 51 H Creatinine 3.4 H 3.4 H Glucose POC Glucose Calcium 7.4 L 7.5 L Phosphorus Magnesium Direct Bilirubin Alkaline Phosphatase Albumin 3.0 L C-Reactive Protein 37.30 H Aibab-5-Fhkiltdch PEP Interpretation Lipase 177 H PTH Intact Urine WBC (Auto) Urine Creatinine Urine Total Protein ZINA Screen Crossmatch 02/27/20 02/28/20 02/28/20 16:57 05:07 05:07 WBC Hgb RBC Hct MCV MCH RDW Plt Count Lymph % (Auto) Lymph # [place] # Lymph # (Auto) [place] # (Auto) Seg Neutrophils % Seg Neutrophils # Seg Neuts % (Manual) Lymphocytes % (Manual) Nucleated RBC % Seg Neutrophils # Man Lymphocytes # (Manual) Monocytes # (Manual) Eosinophils # (Manual) Basophils # (Manual) ABG pH 7.336 L POC ABG pCO2 POC ABG pO2 ABG pO2 57.0 L ABG HCO3 16.4 L ABG O2 Saturation 88.2 L ABG Base Excess -8.4 L ABG Hemoglobin 10.4 L ABG Oxyhemoglobin Oxyhemoglobin 85.7 L Sodium Potassium Chloride Carbon Dioxide 14 L BUN 60 H Creatinine 4.2 H Glucose POC Glucose Calcium 8.2 L Phosphorus Magnesium Direct Bilirubin Alkaline Phosphatase Albumin C-Reactive Protein Wztly-7-Rywdqubyl PEP Interpretation Lipase 155 H PTH Intact Urine WBC (Auto) Urine Creatinine Urine Total Protein ZINA Screen Crossmatch 02/28/20 02/28/20 02/28/20 05:56 11:05 11:05 WBC Hgb RBC Hct MCV MCH RDW Plt Count Lymph % (Auto) Lymph # [place] # Lymph # (Auto) [place] # (Auto) Seg Neutrophils % Seg Neutrophils # Seg Neuts % (Manual) Lymphocytes % (Manual) Nucleated RBC % Seg Neutrophils # Man Lymphocytes # (Manual) Monocytes # (Manual) Eosinophils # (Manual) Basophils # (Manual) ABG pH 7.317 L POC ABG pCO2 POC ABG pO2 76.2 L ABG pO2 ABG HCO3 16.4 L ABG O2 Saturation ABG Base Excess -8.9 L ABG Hemoglobin 6.6 L 7.6 L ABG Oxyhemoglobin Oxyhemoglobin 94.6 L Sodium Potassium Chloride Carbon Dioxide BUN Creatinine Glucose POC Glucose 115 H Calcium Phosphorus Magnesium Direct Bilirubin Alkaline Phosphatase Albumin C-Reactive Protein Unums-8-Fdizqricw PEP Interpretation Lipase PTH Intact Urine WBC (Auto) Urine Creatinine Urine Total Protein ZINA Screen Crossmatch 02/28/20 02/28/20 02/29/20 17:39 19:39 05:43 WBC Hgb RBC Hct MCV MCH RDW Plt Count Lymph % (Auto) Lymph # [place] # Lymph # (Auto) [place] # (Auto) Seg Neutrophils % Seg Neutrophils # Seg Neuts % (Manual) Lymphocytes % (Manual) Nucleated RBC % Seg Neutrophils # Man Lymphocytes # (Manual) Monocytes # (Manual) Eosinophils # (Manual) Basophils # (Manual) ABG pH 7.300 L POC ABG pCO2 POC ABG pO2 ABG pO2 117.5 H ABG HCO3 15.0 L ABG O2 Saturation ABG Base Excess -10.5 L ABG Hemoglobin 6.4 L ABG Oxyhemoglobin Oxyhemoglobin Sodium Potassium Chloride Carbon Dioxide BUN Creatinine Glucose POC Glucose 120 H 66 L Calcium Phosphorus Magnesium Direct Bilirubin Alkaline Phosphatase Albumin C-Reactive Protein Ttkxg-0-Ygmtpbsuc PEP Interpretation Lipase PTH Intact Urine WBC (Auto) Urine Creatinine Urine Total Protein ZINA Screen Crossmatch 02/29/20 02/29/20 02/29/20 05:45 12:04 12:31 WBC Hgb RBC Hct MCV MCH RDW Plt Count Lymph % (Auto) Lymph # [place] # Lymph # (Auto) [place] # (Auto) Seg Neutrophils % Seg Neutrophils # Seg Neuts % (Manual) Lymphocytes % (Manual) Nucleated RBC % Seg Neutrophils # Man Lymphocytes # (Manual) Monocytes # (Manual) Eosinophils # (Manual) Basophils # (Manual) ABG pH 7.212 L POC ABG pCO2 POC ABG pO2 ABG pO2 ABG HCO3 ABG O2 Saturation ABG Base Excess ABG Hemoglobin 7.4 L ABG Oxyhemoglobin Oxyhemoglobin Sodium Potassium Chloride Carbon Dioxide BUN Creatinine Glucose POC Glucose 65 L 64 L Calcium Phosphorus Magnesium Direct Bilirubin Alkaline Phosphatase Albumin C-Reactive Protein Zlsml-9-Qilsgzkhq PEP Interpretation Lipase PTH Intact Urine WBC (Auto) Urine Creatinine Urine Total Protein ZINA Screen Crossmatch 02/29/20 02/29/20 02/29/20 14:22 14:22 18:20 WBC Hgb RBC Hct MCV MCH RDW Plt Count Lymph % (Auto) Lymph # [place] # Lymph # (Auto) [place] # (Auto) Seg Neutrophils % Seg Neutrophils # Seg Neuts % (Manual) Lymphocytes % (Manual) Nucleated RBC % Seg Neutrophils # Man Lymphocytes # (Manual) Monocytes # (Manual) Eosinophils # (Manual) Basophils # (Manual) ABG pH POC ABG pCO2 POC ABG pO2 ABG pO2 ABG HCO3 ABG O2 Saturation ABG Base Excess ABG Hemoglobin ABG Oxyhemoglobin Oxyhemoglobin Sodium Potassium Chloride Carbon Dioxide 16 L BUN 77 H Creatinine 4.7 H Glucose POC Glucose 66 L Calcium Phosphorus 7.50 H Magnesium 2.60 H Direct Bilirubin Alkaline Phosphatase Albumin 2.3 L C-Reactive Protein Kqyhe-6-Glyxrndow PEP Interpretation Lipase PTH Intact Urine WBC (Auto) Urine Creatinine Urine Total Protein ZINA Screen Crossmatch 02/29/20 03/01/20 03/01/20 18:24 04:05 04:37 WBC Hgb RBC Hct MCV MCH RDW Plt Count Lymph % (Auto) Lymph # [place] # Lymph # (Auto) [place] # (Auto) Seg Neutrophils % Seg Neutrophils # Seg Neuts % (Manual) Lymphocytes % (Manual) Nucleated RBC % Seg Neutrophils # Man Lymphocytes # (Manual) Monocytes # (Manual) Eosinophils # (Manual) Basophils # (Manual) ABG pH 7.271 L 7.347 L POC ABG pCO2 POC ABG pO2 ABG pO2 133.5 H ABG HCO3 15.8 L ABG O2 Saturation ABG Base Excess -8.9 L ABG Hemoglobin 7.2 L 7.6 L ABG Oxyhemoglobin 93.4 L Oxyhemoglobin Sodium Potassium Chloride 107.6 H Carbon Dioxide 14 L BUN 83 H Creatinine 5.6 H Glucose POC Glucose Calcium Phosphorus 6.10 H Magnesium 2.40 H Direct Bilirubin Alkaline Phosphatase Albumin C-Reactive Protein Lvzgm-9-Mnsslxffp PEP Interpretation Lipase PTH Intact Urine WBC (Auto) Urine Creatinine Urine Total Protein ZINA Screen Crossmatch 03/01/20 03/01/20 03/01/20 11:06 16:22 18:12 WBC 30.5 H Hgb 6.2 L RBC 2.92 L Hct 20.8 L MCV 71 L MCH 21 L RDW 18.2 H Plt Count 560 H Lymph % (Auto) Lymph # [place] # Lymph # (Auto) [place] # (Auto) Seg Neutrophils % Seg Neutrophils # Seg Neuts % (Manual) 79.0 H Lymphocytes % (Manual) 3.0 L Nucleated RBC % Seg Neutrophils # Man 24.1 H Lymphocytes # (Manual) 0.9 L Monocytes # (Manual) 2.1 H Eosinophils # (Manual) Basophils # (Manual) ABG pH POC ABG pCO2 POC ABG pO2 ABG pO2 ABG HCO3 ABG O2 Saturation ABG Base Excess ABG Hemoglobin ABG Oxyhemoglobin Oxyhemoglobin Sodium Potassium 5.3 H D Chloride Carbon Dioxide 11 L BUN 77 H Creatinine 5.0 H Glucose 54 L POC Glucose 121 H Calcium Phosphorus Magnesium Direct Bilirubin Alkaline Phosphatase Albumin 3.0 L C-Reactive Protein 36.50 H Kdiwi-2-Ewzjbqumq PEP Interpretation Lipase PTH Intact Urine WBC (Auto) Urine Creatinine Urine Total Protein ZINA Screen Crossmatch 03/01/20 03/01/20 03/01/20 18:30 23:37 Unknown WBC Hgb RBC Hct MCV MCH RDW Plt Count Lymph % (Auto) Lymph # [place] # Lymph # (Auto) [place] # (Auto) Seg Neutrophils % Seg Neutrophils # Seg Neuts % (Manual) Lymphocytes % (Manual) Nucleated RBC % Seg Neutrophils # Man Lymphocytes # (Manual) Monocytes # (Manual) Eosinophils # (Manual) Basophils # (Manual) ABG pH POC ABG pCO2 POC ABG pO2 ABG pO2 ABG HCO3 ABG O2 Saturation ABG Base Excess ABG Hemoglobin ABG Oxyhemoglobin Oxyhemoglobin Sodium Potassium Chloride Carbon Dioxide BUN Creatinine Glucose POC Glucose 125 H Calcium Phosphorus Magnesium Direct Bilirubin Alkaline Phosphatase Albumin C-Reactive Protein Lnnzf-7-Erfrxizqt PEP Interpretation Lipase 297 H PTH Intact Urine WBC (Auto) Urine Creatinine Urine Total Protein ZINA Screen Crossmatch See Detail 03/02/20 03/02/20 03/02/20 04:00 05:36 05:36 WBC 26.0 H Hgb 7.8 L RBC 3.26 L Hct 24.2 L MCV 74 L MCH 24 L RDW 21.3 H Plt Count 508 H Lymph % (Auto) Lymph # [place] # Lymph # (Auto) [place] # (Auto) Seg Neutrophils % Seg Neutrophils # Seg Neuts % (Manual) 86.0 H Lymphocytes % (Manual) 4.0 L Nucleated RBC % 2.0 H Seg Neutrophils # Man 22.4 H Lymphocytes # (Manual) 1.0 L Monocytes # (Manual) Eosinophils # (Manual) Basophils # (Manual) ABG pH POC ABG pCO2 27.8 L POC ABG pO2 ABG pO2 ABG HCO3 ABG O2 Saturation ABG Base Excess ABG Hemoglobin 8 L ABG Oxyhemoglobin Oxyhemoglobin Sodium Potassium Chloride Carbon Dioxide 17 L BUN 85 H Creatinine 5.6 H Glucose 109 H POC Glucose Calcium Phosphorus Magnesium 2.50 H Direct Bilirubin Alkaline Phosphatase Albumin 2.3 L C-Reactive Protein Enfvi-4-Paocbmppd PEP Interpretation Lipase PTH Intact Urine WBC (Auto) Urine Creatinine Urine Total Protein ZINA Screen Crossmatch 03/03/20 03/03/20 03/03/20 04:00 04:36 04:36 WBC Hgb RBC Hct MCV MCH RDW Plt Count Lymph % (Auto) Lymph # [place] # Lymph # (Auto) [place] # (Auto) Seg Neutrophils % Seg Neutrophils # Seg Neuts % (Manual) Lymphocytes % (Manual) Nucleated RBC % Seg Neutrophils # Man Lymphocytes # (Manual) Monocytes # (Manual) Eosinophils # (Manual) Basophils # (Manual) ABG pH POC ABG pCO2 31.8 L POC ABG pO2 ABG pO2 ABG HCO3 ABG O2 Saturation ABG Base Excess ABG Hemoglobin 8.6 L ABG Oxyhemoglobin Oxyhemoglobin Sodium 147 H Potassium Chloride 108.4 H Carbon Dioxide 16 L BUN 87 H Creatinine 6.2 H Glucose POC Glucose Calcium Phosphorus Magnesium 2.50 H Direct Bilirubin 1.0 H Alkaline Phosphatase Albumin 2.4 L C-Reactive Protein Wulnm-7-Mmiztilzm PEP Interpretation Lipase 119 H PTH Intact Urine WBC (Auto) Urine Creatinine Urine Total Protein ZINA Screen Crossmatch 03/03/20 03/03/20 03/03/20 04:36 12:48 17:48 WBC 28.0 H Hgb 8.1 L RBC 3.41 L Hct 25.3 L MCV 74 L MCH 24 L RDW 20.8 H Plt Count 557 H Lymph % (Auto) Lymph # [place] # Lymph # (Auto) [place] # (Auto) Seg Neutrophils % Seg Neutrophils # Seg Neuts % (Manual) 82.0 H Lymphocytes % (Manual) 4.0 L Nucleated RBC % Seg Neutrophils # Man 23.0 H Lymphocytes # (Manual) 1.1 L Monocytes # (Manual) 2.0 H Eosinophils # (Manual) Basophils # (Manual) ABG pH POC ABG pCO2 POC ABG pO2 ABG pO2 ABG HCO3 ABG O2 Saturation ABG Base Excess ABG Hemoglobin ABG Oxyhemoglobin Oxyhemoglobin Sodium Potassium Chloride Carbon Dioxide BUN Creatinine Glucose POC Glucose 131 H 113 H Calcium Phosphorus Magnesium Direct Bilirubin Alkaline Phosphatase Albumin C-Reactive Protein Bofeg-1-Ysmwamgan PEP Interpretation Lipase PTH Intact Urine WBC (Auto) Urine Creatinine Urine Total Protein ZINA Screen Crossmatch 03/03/20 03/04/20 03/04/20 23:43 03:43 04:05 WBC Hgb RBC Hct MCV MCH RDW Plt Count Lymph % (Auto) Lymph # [place] # Lymph # (Auto) [place] # (Auto) Seg Neutrophils % Seg Neutrophils # Seg Neuts % (Manual) Lymphocytes % (Manual) Nucleated RBC % Seg Neutrophils # Man Lymphocytes # (Manual) Monocytes # (Manual) Eosinophils # (Manual) Basophils # (Manual) ABG pH POC ABG pCO2 POC ABG pO2 ABG pO2 57.4 L ABG HCO3 27.2 H ABG O2 Saturation 88.6 L ABG Base Excess ABG Hemoglobin ABG Oxyhemoglobin Oxyhemoglobin Sodium Potassium 3.3 L Chloride Carbon Dioxide BUN 65 H Creatinine 5.3 H Glucose 152 H POC Glucose 149 H Calcium Phosphorus Magnesium Direct Bilirubin 0.7 H Alkaline Phosphatase Albumin 2.5 L C-Reactive Protein Ojtmr-4-Cqzzyxsfs PEP Interpretation Lipase PTH Intact Urine WBC (Auto) Urine Creatinine Urine Total Protein ZINA Screen Crossmatch 03/04/20 03/04/20 03/04/20 04:05 05:26 12:21 WBC 30.1 H Hgb 8.2 L RBC 3.44 L Hct 25.2 L MCV 73 L MCH 24 L RDW 20.7 H Plt Count 554 H Lymph % (Auto) 3.3 L Lymph # [place] # Lymph # (Auto) 1.0 L [place] # (Auto) 2.0 H Seg Neutrophils % 88.6 H Seg Neutrophils # 26.6 H Seg Neuts % (Manual) Lymphocytes % (Manual) Nucleated RBC % Seg Neutrophils # Man Lymphocytes # (Manual) Monocytes # (Manual) Eosinophils # (Manual) Basophils # (Manual) ABG pH POC ABG pCO2 POC ABG pO2 ABG pO2 ABG HCO3 ABG O2 Saturation ABG Base Excess ABG Hemoglobin ABG Oxyhemoglobin Oxyhemoglobin Sodium Potassium Chloride Carbon Dioxide BUN Creatinine Glucose POC Glucose 136 H 155 H Calcium Phosphorus Magnesium Direct Bilirubin Alkaline Phosphatase Albumin C-Reactive Protein Fwdiu-1-Sjvgwykou PEP Interpretation Lipase PTH Intact Urine WBC (Auto) Urine Creatinine Urine Total Protein ZINA Screen Crossmatch 03/04/20 03/04/20 03/04/20 18:02 19:00 23:24 WBC Hgb RBC Hct MCV MCH RDW Plt Count Lymph % (Auto) Lymph # [place] # Lymph # (Auto) [place] # (Auto) Seg Neutrophils % Seg Neutrophils # Seg Neuts % (Manual) Lymphocytes % (Manual) Nucleated RBC % Seg Neutrophils # Man Lymphocytes # (Manual) Monocytes # (Manual) Eosinophils # (Manual) Basophils # (Manual) ABG pH POC ABG pCO2 POC ABG pO2 ABG pO2 ABG HCO3 ABG O2 Saturation ABG Base Excess ABG Hemoglobin ABG Oxyhemoglobin Oxyhemoglobin Sodium Potassium Chloride Carbon Dioxide BUN Creatinine Glucose POC Glucose 124 H 115 H Calcium Phosphorus Magnesium Direct Bilirubin Alkaline Phosphatase Albumin C-Reactive Protein Ffees-5-Xkfxfmawe PEP Interpretation Lipase 72 H PTH Intact Urine WBC (Auto) Urine Creatinine Urine Total Protein ZINA Screen Crossmatch 03/05/20 03/05/20 03/05/20 05:04 05:29 06:00 WBC Hgb RBC Hct MCV MCH RDW Plt Count Lymph % (Auto) Lymph # [place] # Lymph # (Auto) [place] # (Auto) Seg Neutrophils % Seg Neutrophils # Seg Neuts % (Manual) Lymphocytes % (Manual) Nucleated RBC % Seg Neutrophils # Man Lymphocytes # (Manual) Monocytes # (Manual) Eosinophils # (Manual) Basophils # (Manual) ABG pH POC ABG pCO2 POC ABG pO2 ABG pO2 62.5 L ABG HCO3 26.4 H ABG O2 Saturation 92.1 L ABG Base Excess ABG Hemoglobin 9.3 L ABG Oxyhemoglobin Oxyhemoglobin 89.9 L Sodium Potassium Chloride Carbon Dioxide BUN 54 H Creatinine 5.4 H Glucose 125 H POC Glucose 134 H Calcium Phosphorus Magnesium Direct Bilirubin 0.6 H Alkaline Phosphatase 133 H Albumin 2.5 L C-Reactive Protein [id number] PEP Interpretation Lipase PTH Intact Urine WBC (Auto) Urine Creatinine Urine Total Protein ZINA Screen Crossmatch 03/05/20 03/05/20 03/05/20 12:18 18:01 21:39 WBC Hgb RBC Hct MCV MCH RDW Plt Count Lymph % (Auto) Lymph # [place] # Lymph # (Auto) [place] # (Auto) Seg Neutrophils % Seg Neutrophils # Seg Neuts % (Manual) Lymphocytes % (Manual) Nucleated RBC % Seg Neutrophils # Man Lymphocytes # (Manual) Monocytes # (Manual) Eosinophils # (Manual) Basophils # (Manual) ABG pH POC ABG pCO2 POC ABG pO2 ABG pO2 ABG HCO3 ABG O2 Saturation ABG Base Excess ABG Hemoglobin ABG Oxyhemoglobin Oxyhemoglobin Sodium Potassium Chloride Carbon Dioxide BUN Creatinine Glucose POC Glucose 118 H 108 H 123 H Calcium Phosphorus Magnesium Direct Bilirubin Alkaline Phosphatase Albumin C-Reactive Protein Qqpby-2-Ahyvulcff PEP Interpretation Lipase PTH Intact Urine WBC (Auto) Urine Creatinine Urine Total Protein ZINA Screen Crossmatch 03/06/20 03/06/20 03/06/20 04:40 04:41 05:44 WBC Hgb RBC Hct MCV MCH RDW Plt Count Lymph % (Auto) Lymph # [place] # Lymph # (Auto) [place] # (Auto) Seg Neutrophils % Seg Neutrophils # Seg Neuts % (Manual) Lymphocytes % (Manual) Nucleated RBC % Seg Neutrophils # Man Lymphocytes # (Manual) Monocytes # (Manual) Eosinophils # (Manual) Basophils # (Manual) ABG pH POC ABG pCO2 POC ABG pO2 64.9 L ABG pO2 ABG HCO3 ABG O2 Saturation ABG Base Excess ABG Hemoglobin 9.9 L ABG Oxyhemoglobin 90.5 L Oxyhemoglobin Sodium Potassium Chloride 94.7 L Carbon Dioxide BUN 70 H Creatinine 7.1 H Glucose 113 H POC Glucose 134 H Calcium Phosphorus Magnesium Direct Bilirubin Alkaline Phosphatase Albumin C-Reactive Protein [id number]-9-Cvlqbqzpr PEP Interpretation Lipase PTH Intact Urine WBC (Auto) Urine Creatinine Urine Total Protein ZINA Screen Crossmatch 03/06/20 03/06/20 03/06/20 08:54 11:56 18:19 WBC 31.5 H Hgb 8.7 L RBC Hct 27.8 L MCV 75 L MCH 23 L RDW 21.2 H Plt Count 516 H Lymph % (Auto) Lymph # [place] # Lymph # (Auto) [place] # (Auto) Seg Neutrophils % Seg Neutrophils # Seg Neuts % (Manual) 93.0 H Lymphocytes % (Manual) 2.0 L Nucleated RBC % Seg Neutrophils # Man 29.3 H Lymphocytes # (Manual) 0.6 L Monocytes # (Manual) Eosinophils # (Manual) 0.6 H Basophils # (Manual) ABG pH POC ABG pCO2 POC ABG pO2 ABG pO2 ABG HCO3 ABG O2 Saturation ABG Base Excess ABG Hemoglobin ABG Oxyhemoglobin Oxyhemoglobin Sodium Potassium Chloride Carbon Dioxide BUN Creatinine Glucose POC Glucose 131 H 117 H Calcium Phosphorus Magnesium Direct Bilirubin Alkaline Phosphatase Albumin C-Reactive Protein [id number]-9-Xjxisaxxl PEP Interpretation Lipase PTH Intact Urine WBC (Auto) Urine Creatinine Urine Total Protein ZINA Screen Crossmatch 03/07/20 03/07/20 03/07/20 05:03 05:03 12:08 WBC 26.9 H Hgb 8.3 L RBC 3.50 L Hct 26.6 L MCV 76 L MCH 24 L RDW 21.3 H Plt Count 470 H Lymph % (Auto) Lymph # [place] # Lymph # (Auto) [place] # (Auto) Seg Neutrophils % Seg Neutrophils # Seg Neuts % (Manual) 89.0 H Lymphocytes % (Manual) 4.0 L Nucleated RBC % Seg Neutrophils # Man 23.9 H Lymphocytes # (Manual) 1.1 L Monocytes # (Manual) Eosinophils # (Manual) Basophils # (Manual) 0.3 H ABG pH POC ABG pCO2 POC ABG pO2 ABG pO2 ABG HCO3 ABG O2 Saturation ABG Base Excess ABG Hemoglobin ABG Oxyhemoglobin Oxyhemoglobin Sodium Potassium Chloride 94.8 L Carbon Dioxide BUN 52 H Creatinine 6.3 H Glucose 106 H POC Glucose 114 H Calcium Phosphorus Magnesium Direct Bilirubin Alkaline Phosphatase 132 H Albumin 2.5 L C-Reactive Protein Jscsi-1-Srlzzikpp PEP Interpretation Lipase PTH Intact Urine WBC (Auto) Urine Creatinine Urine Total Protein ZINA Screen Crossmatch 03/07/20 03/07/20 03/08/20 18:05 23:29 04:50 WBC Hgb RBC Hct MCV MCH RDW Plt Count Lymph % (Auto) Lymph # [place] # Lymph # (Auto) [place] # (Auto) Seg Neutrophils % Seg Neutrophils # Seg Neuts % (Manual) Lymphocytes % (Manual) Nucleated RBC % Seg Neutrophils # Man Lymphocytes # (Manual) Monocytes # (Manual) Eosinophils # (Manual) Basophils # (Manual) ABG pH POC ABG pCO2 POC ABG pO2 ABG pO2 ABG HCO3 ABG O2 Saturation ABG Base Excess ABG Hemoglobin ABG Oxyhemoglobin Oxyhemoglobin Sodium Potassium Chloride 95.5 L Carbon Dioxide BUN 52 H Creatinine 6.2 H Glucose 109 H POC Glucose 111 H 118 H Calcium Phosphorus Magnesium Direct Bilirubin Alkaline Phosphatase Albumin C-Reactive Protein Rmnbr-5-Difmjagrb PEP Interpretation Lipase PTH Intact Urine WBC (Auto) Urine Creatinine Urine Total Protein ZINA Screen Crossmatch 03/08/20 03/08/20 03/09/20 17:45 23:53 04:00 WBC Hgb RBC Hct MCV MCH RDW Plt Count Lymph % (Auto) Lymph # [place] # Lymph # (Auto) [place] # (Auto) Seg Neutrophils % Seg Neutrophils # Seg Neuts % (Manual) Lymphocytes % (Manual) Nucleated RBC % Seg Neutrophils # Man Lymphocytes # (Manual) Monocytes # (Manual) Eosinophils # (Manual) Basophils # (Manual) ABG pH POC ABG pCO2 POC ABG pO2 ABG pO2 ABG HCO3 ABG O2 Saturation ABG Base Excess ABG Hemoglobin ABG Oxyhemoglobin Oxyhemoglobin Sodium Potassium Chloride 92.8 L Carbon Dioxide BUN 74 H Creatinine 7.8 H Glucose POC Glucose 106 H 106 H Calcium Phosphorus Magnesium Direct Bilirubin Alkaline Phosphatase Albumin C-Reactive Protein Qofwl-1-Vnsxrwwcd PEP Interpretation Lipase PTH Intact Urine WBC (Auto) Urine Creatinine Urine Total Protein ZINA Screen Crossmatch 03/09/20 07:53 WBC 21.9 H Hgb 7.5 L RBC 3.27 L Hct 24.3 L MCV 74 L MCH 23 L RDW 20.9 H Plt Count 488 H Lymph % (Auto) Lymph # [place] # Lymph # (Auto) [place] # (Auto) Seg Neutrophils % Seg Neutrophils # Seg Neuts % (Manual) Lymphocytes % (Manual) Nucleated RBC % Seg Neutrophils # Man Lymphocytes # (Manual) Monocytes # (Manual) Eosinophils # (Manual) Basophils # (Manual) ABG pH POC ABG pCO2 POC ABG pO2 ABG pO2 ABG HCO3 ABG O2 Saturation ABG Base Excess ABG Hemoglobin ABG Oxyhemoglobin Oxyhemoglobin Sodium Potassium Chloride Carbon Dioxide BUN Creatinine Glucose POC Glucose Calcium Phosphorus Magnesium Direct Bilirubin Alkaline Phosphatase Albumin C-Reactive Protein Vbdfu-1-Rybuqpbwl PEP Interpretation Lipase PTH Intact Urine WBC (Auto) Urine Creatinine Urine Total Protein ZINA Screen Crossmatch Chest x-ray: image reviewed Allied health notes reviewed: RT
[2020-03-09] MEDS: fentaNYL 100 MCG/2 ML INJ IV PRN ×2 (12:40→18:40)
[2020-03-09] MEDS: LORazepam 2 MG/ML VIAL IV PRN ×2 (12:41→18:40)
--- NOTE | 2020-03-09 13:43 | XRay Report ---
ABDOMEN 1 VIEW 03/09/2020 1:25 PM INDICATION / CLINICAL INFORMATION: NGT placement. COMPARISON: 03/02/20 FINDINGS: TUBES / LINES: Esophagogastric tube is present in the proximal body of the stomach. BOWEL GAS PATTERN: Mildly dilated loops of small bowel. FREE AIR / EXTRALUMINAL GAS: None. ADDITIONAL FINDINGS: No significant additional findings. IMPRESSION: 1. Esophagogastric tube in expected position. Signer Name: Ford Gardner MD Signed: 03/09/2020 1:38 PM Workstation Name: [id number]
[2020-03-09] MEDS: ACETAMINOPHEN 325 MG TAB PO PRN (14:34)
--- NOTE | 2020-03-09 15:41 | Gastroenterology Progress Note ---
Assessment and Plan (1) Acute pancreatitis - - unclear etiology for pancreatitis. 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 No bile duct dilation noted on imaging. H/o alcohol use. - multi-organ failure. - remains critically ill - on HD. - CT noncontrast on 03/05 with worsening inflammation but no necrosis. - persistent recurrent fever. - wbc trending down. - attempted for extubation today. Rec - cont with supportive care - nutrition via [place]. - may need MRCP at some point in the future but no need urgently. - ID on board. currently on meropenem. . (2) Altered mental status - remains intubated and sedated. - will follow. Subjective Date of service: 03/09/20 Principal diagnosis: HTNsive urgency; Morbid obesity; Ac. pancreatitis; Abdominal pain Interval history: Attempted for extubation but patient became agitated. No BM. Objective - Constitutional Vitals: Temp Pulse Resp BP Pulse Ox 101.0 F H 97 H 20 117/59 95 03/09/20 12:00 03/09/20 15:00 03/09/20 15:00 03/09/20 15:00 03/09/20 15:00 General appearance: no acute distress - Respiratory Respiratory effort: other (on the vent) - Cardiovascular Rhythm: regular Heart Sounds: Present: S1 & S2 - Gastrointestinal General gastrointestinal: Present: soft, non-tender, non-distended - Labs CBC & Chem 7: 03/09/20 07:53 03/09/20 04:00 Labs: Laboratory Results - last 24 hr 03/07/20 03/08/20 03/08/20 04:42 17:45 23:53 WBC RBC Hgb Hct MCV MCH MCHC RDW Plt Count ABG pH 7.429 POC ABG pCO2 43.1 POC ABG pO2 68.3 L POC ABG HCO3 27.9 POC ABG Base Excess 3.2 ABG Hemoglobin 9.3 L ABG Sodium 136.0 ABG Potassium 3.6 ABG Chloride 99.0 ABG Glucose 112 H FiO2 30.0 Sodium Potassium Chloride Carbon Dioxide Anion Gap BUN Creatinine Estimated GFR BUN/Creatinine Ratio Glucose POC Glucose 106 H 106 H Calcium Arterial Blood Glucose 112 H Arterial Blood Ionized Calcium 4.8 03/09/20 03/09/20 03/09/20 04:00 06:02 07:53 WBC 21.9 H RBC 3.27 L Hgb 7.5 L Hct 24.3 L MCV 74 L MCH 23 L MCHC 31 RDW 20.9 H Plt Count 488 H ABG pH POC ABG pCO2 POC ABG pO2 POC ABG HCO3 POC ABG Base Excess ABG Hemoglobin ABG Sodium ABG Potassium ABG Chloride ABG Glucose FiO2 Sodium 137 Potassium 3.8 Chloride 92.8 L Carbon Dioxide 25 Anion Gap 23 BUN 74 H Creatinine 7.8 H Estimated GFR 7 BUN/Creatinine Ratio 9 Glucose 92 POC Glucose 99 Calcium 9.3 Arterial Blood Glucose Arterial Blood Ionized Calcium 03/09/20 12:45 WBC RBC Hgb Hct MCV MCH MCHC RDW Plt Count ABG pH POC ABG pCO2 POC ABG pO2 POC ABG HCO3 POC ABG Base Excess ABG Hemoglobin ABG Sodium ABG Potassium ABG Chloride ABG Glucose FiO2 Sodium Potassium Chloride Carbon Dioxide Anion Gap BUN Creatinine Estimated GFR BUN/Creatinine Ratio Glucose POC Glucose 91 Calcium Arterial Blood Glucose Arterial Blood Ionized Calcium
[2020-03-09] MEDS: MEROPENEM/NS 1 GRAM/100 ML 1 GRAM/100 ML BAG IV SCH (17:03)
[2020-03-09] MEDS: QUEtiapine 200 MG TAB PO SCH (21:19)
[2020-03-10] MEDS: IPRATROPIUM/ALBUTEROL SULFATE 3 ML AMPUL.NEB IH SCH ×4 (01:32→20:41)
[2020-03-10] MEDS: fentaNYL DRIP Premix 2,000 MCG/100 ML BAG IV SCH (03:30)
[2020-03-10] MEDS: HEPARIN 5,000 UNIT/1 ML VIAL SUB-Q SCH ×3 (05:29→21:10)
[2020-03-10] MEDS: hydrALAZINE 25 MG TAB PO SCH ×3 (05:30→21:09)
[2020-03-10 05:35] LABS: Hematocrit 22.4 % (30.3-42.9); Hemoglobin 7.1 gm/dl (10.1-14.3); Mean Corpuscular HGB Conc 32 % (30-34); Mean Corpuscular Volume 75 fl (79-97); Platelet Count 428 K/mm3 (140-440); Red Blood Count 2.99 M/mm3 (3.65-5.03)
[2020-03-10 05:36] LABS: Red Cell Distribution Width 21.5 % (13.2-15.2)
[2020-03-10 05:37] LABS: Basophils % (Auto) 0.4 % (0.0-1.8); Eosinophils % (Auto) 1.3 % (0.0-4.3); Lymphocytes # (Auto) 1.5 K/mm3 (1.2-5.4); Lymphocytes % (Auto) 9.2 % (13.4-35.0); Monocytes # (Auto) 1.6 K/mm3 (0.0-0.8); Monocytes % (Auto) 9.9 % (0.0-7.3)
[2020-03-10 05:38] LABS: Basophils # (Auto) 0.1 K/mm3 (0.0-0.1); Eosinophils # (Auto) 0.2 K/mm3 (0.0-0.4)
[2020-03-10 05:44] LABS: Calcium 9.1 mg/dL (8.4-10.2)
[2020-03-10] MEDS: ACETAMINOPHEN 325 MG TAB PO PRN (07:16)
[2020-03-10] MEDS: SCOPOLAMINE TRANSDERMAL PATCH 72 HR TD SCH (09:07)
[2020-03-10] MEDS: METOPROLOL TARTRATE 25 MG TAB PO SCH ×2 (09:08→21:09)
[2020-03-10] MEDS: LANSOPRAZOLE 30 MG SOLUTAB FEEDTUBE SCH (09:08)
[2020-03-10] MEDS: QUEtiapine 100 MG TAB PO SCH (09:08)
[2020-03-10] MEDS: TAMSULOSIN 0.4 MG CAP PO SCH (09:09)
[2020-03-10] MEDS: amLODIPine 10 MG TAB PO SCH (09:09)
--- NOTE | 2020-03-10 09:18 | Progress Note ---
Assessment and Plan Assessment and plan: --JUANIS/worsening renal function Worsening renal function, Initiated hemodialysis 03/03/2020 Hemodialysis per nephrology --Acute hypoxic resp failure; intubated 02/29/20 Mechanical ventilation , supportive care secondary to pancreatitis, lung infiltrate, possible ARDS Fluid overload.acute kidney injury Wean as tolerated and extubate Pulmonary critical following Chest x-ray today; worsening infiltrates --Severe sepsis secondary to pneumonia and pancreatitis; Worsening bibasilar opacities on chest x-ray leukocytosis, tachycardia, tachypnea, fever, infiltrate on chest x-ray. Continue antibiotic, follow cultures, ID following -- Acute severe pancreatitis Initial non-contrasted CT showed no evidence of necrosis or pseudocyst or abscess formation. Repeat CT 03/05 with interval worsening of acute pancreatitis without clear evidence of necrosis with increased jessica-pancreatic fat stranding and disorganized fluid, however was done without IV contrast due to her renal function. -- Bilateral pleural effusions. Etiology secondary to above Compressive atelectasis --Anemia monitor H&H and transfused total 2 units PRBC Transfuse additional as needed --Severe metabolic encephalopathy Probably secondary alcohol withdrawal symptoms Treat the underlying cause,CIWA protocol, supportive care --Alcohol withdrawal closely monitor , Ativan as needed Continue CIWA protocol --Worsening leukocytosis Secondary to sepsis due to bibasilar pneumonia, acute pancreatitis, ID and GI following -- Hypertensive emergency POA s/p Cardene drip, closely monitor Blood pressures uncontrolled IV labetalol, PRN --Severe metabolic acidosis; Management per nephrology --Medical noncompliance Patient was counseled upon admission -- DVT prophylaxis Patient placed on subcutaneous heparin. --Obesity; BMI 37.9 patient needs weight reduction when medically stable. -- Full code status Follow GI and pulmonary evaluation and recommendations We will closely monitor the patient and adjust the management as needed Closely monitor the patient and adjust management as needed. Patient is critically ill with multiple medical problems Prognosis poor, family aware 03/03; patient had worsening renal function, considering Vas-Cath placement and initiating hemodialysis Patient is critically ill with multiple organ involvement, family aware 03/04; patient remains critically ill on vent, initiated dialysis, poor prognosis multiorgan involvement Department Clinician recommendations noted and appreciated 03/07/2020. Patient remains critically ill on mechanical ventilation AC mode rate 20, tidal volume 450, FiO2 30% with a PEEP of 6. Patient with multiorgan failure. Continue hemodialysis per nephrology. GI believes patient may need MRCP at some point in the future but no need urgently. Continue fentanyl drip for sedation and wean as tolerated. Patient currently with meropenem/ID following. 03/08/2020. Patient remains critically ill on mechanical ventilation AC mode rate 20, tidal volume 450, FiO2 30% with a PEEP of 6. Continue IV meropenem per ID recommendations. Persistent fevers likely associated to acute severe pancreatitis. Creatinine 1.5 in September 2019, may have underlying CKD. Creatinine has worsened from 1.7->3.0->3.1->3.4->4.2->4.7->5.6->5.0> 6.2 since admission. Status post Vas-Cath placement on 03/03/2020 and initiation of dialysis. 03/09/2020. Patient currently with PSV trials FiO2 30% 03/10. JUANIS in setting of hypertensive urgency and pre-renal injury from pancreatitis. Urine output has declined but patient did have approximately 400 cc noted on bladder scan. Straight cath for now. Nephrology following. Blood pressure much better controlled. Continue IV meropenem renally dosed per ID recommendations. P ersistent fevers likely secondary to severe pancreatitis. Follow-up cultures from 03/06/2020. 03/10; patient is on weaning parameters, possible extubation today if patient tolerates, alert and awake The high probability of a clinically significant, sudden or life threatening deterioration of the [GI, CVS, renal, respiratory and metabolic] system(s) required my full and direct attention, intervention and personal management. The aggregate critical care time was [32] minutes. This time is in addition to time spent performing reported procedures but includes the following: [x] Data Review and interpretation [x] Patient assessment and monitoring of vital signs [x] Documentation [x] Medication orders and management History Interval history: I have seen and examined the patient at the bedside in ICU this morning Patient's chart medications tests and reports reviewed Patient is alert and awake remains intubated on ventilatory support On weaning parameters, patient responds to simple questions appropriately Vital signs noted Hospitalist Physical - Constitutional Vitals: Temp Pulse Resp BP Pulse Ox 102.3 F H 96 H 21 121/77 98 03/10/20 08:00 03/10/20 09:09 03/10/20 08:00 03/10/20 09:09 03/10/20 08:00 General appearance: Present: no acute distress, well-nourished, obese, other (Intubated on mechanical ventilation) - EENT Eyes: Present: PERRL, EOM intact - Neck Neck: Present: supple, normal ROM - Respiratory Respiratory effort: normal Respiratory: bilateral: diminished, rhonchi, negative: rales, wheezing - Cardiovascular Rhythm: regular Heart Sounds: Present: S1 & S2 - Extremities Extremities: no ischemia, No edema - Abdominal General gastrointestinal: soft, non-tender, non-distended, normal bowel sounds - Integumentary Integumentary: Present: clear, warm - Psychiatric Psychiatric: appropriate mood/affect, other (Intubated on ventilatory support) - Neurologic Neurologic: other (Intubated on mechanical ventilation) Results - Labs CBC & Chem 7: 03/10/20 04:37 03/10/20 04:37 Labs: Laboratory Last Values WBC 16.0 K/mm3 (4.5-11.0) H 03/10/20 04:37 RBC 2.99 M/mm3 (3.65-5.03) L 03/10/20 04:37 Hgb 7.1 gm/dl (10.1-14.3) L 03/10/20 04:37 Hct 22.4 % (30.3-42.9) L 03/10/20 04:37 MCV 75 fl (79-97) L 03/10/20 04:37 MCH 24 pg (28-32) L 03/10/20 04:37 MCHC 32 % (30-34) 03/10/20 04:37 RDW 21.5 % (13.2-15.2) H 03/10/20 04:37 Plt Count 428 K/mm3 (140-440) 03/10/20 04:37 Lymph % (Auto) 9.2 % (13.4-35.0) L 03/10/20 04:37 [place] % (Auto) 9.9 % (0.0-7.3) H 03/10/20 04:37 Eos % (Auto) 1.3 % (0.0-4.3) 03/10/20 04:37 Baso % (Auto) 0.4 % (0.0-1.8) 03/10/20 04:37 Lymph # (Auto) 1.5 K/mm3 (1.2-5.4) 03/10/20 04:37 [place] # (Auto) 1.6 K/mm3 (0.0-0.8) H 03/10/20 04:37 Eos # (Auto) 0.2 K/mm3 (0.0-0.4) 03/10/20 04:37 Baso # (Auto) 0.1 K/mm3 (0.0-0.1) 03/10/20 04:37 Add Manual Diff Complete 03/07/20 05:03 Total Counted 100 03/07/20 05:03 Seg Neutrophils % 79.2 % (40.0-70.0) H 03/10/20 04:37 Seg Neuts % (Manual) 89.0 % (40.0-70.0) H 03/07/20 05:03 Band Neutrophils % 2.0 % 03/07/20 05:03 Lymphocytes % (Manual) 4.0 % (13.4-35.0) L 03/07/20 05:03 Reactive Lymphs % (Man) 0 % 03/07/20 05:03 Monocytes % (Manual) 3.0 % (0.0-7.3) 03/07/20 05:03 Eosinophils % (Manual) 0 % (0.0-4.3) 03/07/20 05:03 Basophils % (Manual) 1.0 % (0.0-1.8) 03/07/20 05:03 Metamyelocytes % 0 % 03/07/20 05:03 Myelocytes % 1.0 % 03/07/20 05:03 Promyelocytes % 0 % 03/07/20 05:03 Blast Cells % 0 % 03/07/20 05:03 Nucleated RBC % Not Reportable 03/07/20 05:03 Seg Neutrophils # 12.6 K/mm3 (1.8-7.7) H 03/10/20 04:37 Seg Neutrophils # Man 23.9 K/mm3 (1.8-7.7) H 03/07/20 05:03 Band Neutrophils # 0.5 K/mm3 03/07/20 05:03 Lymphocytes # (Manual) 1.1 K/mm3 (1.2-5.4) L 03/07/20 05:03 Abs React Lymphs (Man) 0.0 K/mm3 10/03/20 05:03 Monocytes # (Manual) 0.8 K/mm3 (0.0-0.8) 03/07/20 05:03 Eosinophils # (Manual) 0.0 K/mm3 (0.0-0.4) 03/07/20 05:03 Basophils # (Manual) 0.3 K/mm3 (0.0-0.1) H 03/07/20 05:03 Metamyelocytes # 0.0 K/mm3 03/07/20 05:03 Myelocytes # 0.3 K/mm3 03/07/20 05:03 Promyelocytes # 0.0 K/mm3 03/07/20 05:03 Blast Cells # 0.0 K/mm3 03/07/20 05:03 WBC Morphology Not Reportable 03/07/20 05:03 Hypersegmented Neuts Not Reportable 03/07/20 05:03 Hyposegmented Neuts Not Reportable 03/07/20 05:03 Hypogranular Neuts Not Reportable 03/07/20 05:03 Smudge Cells Not Reportable 03/07/20 05:03 Toxic Granulation Not Reportable 03/07/20 05:03 Toxic Vacuolation Not Reportable 03/07/20 05:03 Dohle Bodies Not Reportable 03/07/20 05:03 Pelger-Huet Anomaly Not Reportable 03/07/20 05:03 Maia Rods Not Reportable 03/07/20 05:03 Platelet Estimate Consistent w auto 03/07/20 05:03 Clumped Platelets Not Reportable 03/07/20 05:03 Plt Clumps, EDTA Not Reportable 03/07/20 05:03 Large Platelets Not Reportable 03/07/20 05:03 Giant Platelets Not Reportable 03/07/20 05:03 Platelet Satelliting Not Reportable 03/07/20 05:03 Plt Morphology Comment Not Reportable 03/07/20 05:03 RBC Morphology Not Reportable 03/07/20 05:03 Dimorphic RBCs Not Reportable 03/07/20 05:03 Polychromasia Not Reportable 03/07/20 05:03 Hypochromasia 1+ 03/07/20 05:03 Poikilocytosis Not Reportable 03/07/20 05:03 Anisocytosis 1+ 03/07/20 05:03 Microcytosis Few 03/07/20 05:03 Macrocytosis Not Reportable 03/07/20 05:03 Spherocytes Not Reportable 03/07/20 05:03 Pappenheimer Bodies Not Reportable 03/07/20 05:03 Sickle Cells Not Reportable 03/07/20 05:03 Target Cells Not Reportable 03/07/20 05:03 Tear Drop Cells Not Reportable 03/07/20 05:03 Ovalocytes Not Reportable 03/07/20 05:03 Helmet Cells Not Reportable 03/07/20 05:03 [place] Bodies Not Reportable 03/07/20 05:03 [place] Rings Not Reportable 03/07/20 05:03 Mirna Cells Not Reportable 03/07/20 05:03 Bite Cells Not Reportable 03/07/20 05:03 Crenated Cell Not Reportable 03/07/20 05:03 Elliptocytes Not Reportable 03/07/20 05:03 Acanthocytes (Spur) Not Reportable 03/07/20 05:03 Rouleaux Not Reportable 03/07/20 05:03 Hemoglobin C Crystals Not Reportable 03/07/20 05:03 Schistocytes Not Reportable 03/07/20 05:03 Malaria parasites Not Reportable 03/07/20 05:03 Edgardo Bodies Not Reportable 03/07/20 05:03 Hem Pathologist Commnt No 03/07/20 05:03 PT 13.7 Sec. (12.2-14.9) 02/25/20 03:49 INR 1.03 (0.87-1.13) 02/25/20 03:49 ABG pH 7.429 (7.320-7.450) 03/07/20 04:42 POC ABG pCO2 43.1 mmHg (32.0-48.0) 03/07/20 04:42 ABG pCO2 43.1 mm Hg 03/05/20 05:04 POC ABG pO2 68.3 mmHg (83-108) L 03/07/20 04:42 ABG pO2 62.5 mm Hg (80.0-90.0) L 03/05/20 05:04 POC ABG HCO3 27.9 03/07/20 04:42 ABG HCO3 26.4 mmol/L (20.0-26.0) H 03/05/20 05:04 ABG O2 Saturation 92.1 % (95.0-99.0) L 03/05/20 05:04 ABG O2 Content 11.9 (0.0-44) 03/05/20 05:04 POC ABG Base Excess 3.2 03/07/20 04:42 ABG Base Excess 1.5 mmol/L (-2.0-3.0) 03/05/20 05:04 ABG Hemoglobin 9.3 (12.0-17.5) L 03/07/20 04:42 ABG Oxyhemoglobin 90.5 (94-98) L 03/06/20 04:41 ABG Carboxyhemoglobin 1.9 % (0.0-5.0) 03/05/20 05:04 ABG Methemoglobin 0.3 (0.0-1.5) 03/06/20 04:41 ABG Sodium 136.0 mmol/L (136.0-145.0) 03/07/20 04:42 ABG Potassium 3.6 mmol/L (3.40-4.50) 03/07/20 04:42 ABG Chloride 99.0 mmol/L (98-107) 03/07/20 04:42 ABG Glucose 112 mg/dL (65-95) H 03/07/20 04:42 Oxyhemoglobin 89.9 % (95.0-99.0) L 03/05/20 05:04 Carboxyhemoglobin 1 (0.5-1.5) 03/06/20 04:41 FiO2 30.0 03/07/20 04:42 Sodium 141 mmol/L (137-145) 03/10/20 04:37 Potassium 4.2 mmol/L (3.6-5.0) 03/10/20 04:37 Chloride 98.9 mmol/L (98-107) 03/10/20 04:37 Carbon Dioxide 28 mmol/L (22-30) 03/10/20 04:37 Anion Gap 18 mmol/L 03/10/20 04:37 BUN 45 mg/dL (7-17) H 03/10/20 04:37 Creatinine 5.6 mg/dL (0.6-1.2) H 03/10/20 04:37 Estimated GFR 10 ml/min 03/10/20 04:37 BUN/Creatinine Ratio 8 % 03/10/20 04:37 Glucose 108 mg/dL (65-100) H 03/10/20 04:37 POC Glucose 99 (70-105) 03/10/20 05:35 Lactic Acid 0.90 mmol/L (0.7-2.0) 02/27/20 19:33 Calcium 9.1 mg/dL (8.4-10.2) 03/10/20 04:37 Phosphorus 6.10 mg/dL (2.5-4.5) H 03/01/20 04:37 Magnesium 2.00 mg/dL (1.7-2.3) 03/07/20 05:03 Total Bilirubin 0.50 mg/dL (0.1-1.2) 03/07/20 05:03 Direct Bilirubin 0.6 mg/dL (0-0.2) H 03/05/20 06:00 Indirect Bilirubin 0.3 mg/dL 03/05/20 06:00 AST 40 units/L (5-40) 03/07/20 05:03 ALT 19 units/L (7-56) 03/07/20 05:03 Alkaline Phosphatase 132 units/L (35-129) H 03/07/20 05:03 C-Reactive Protein 36.50 mg/dL (0.00-1.30) H 03/01/20 11:06 Serum Total Protein 6.3 g/dL (6.1-8.1) 02/26/20 04:39 Total Protein 6.7 g/dL (6.3-8.2) 03/07/20 05:03 Albumin 2.5 g/dL (3.9-5) L 03/07/20 05:03 Albumin/Globulin Ratio 0.6 % 03/07/20 05:03 Viawt-5-Vnorlmgcg 0.7 g/dL (0.2-0.3) H 02/26/20 04:39 Xtwkr-7-Tahnvmgje 0.8 g/dL (0.5-0.9) 02/26/20 04:39 Beta Globulins 0.4 g/dL (0.2-0.5) 02/26/20 04:39 Gamma Globulins 1.2 g/dL (0.8-1.7) 02/26/20 04:39 Abnorm Protein Band 1 see below 02/26/20 04:39 PEP Interpretation see below H 02/26/20 04:39 Triglycerides 118 mg/dL (2-149) 02/26/20 04:39 Lipase 72 units/L (13-60) H 03/04/20 19:00 HCG, Qual Negative (Negative) 02/24/20 02:53 PTH Intact 911.3 pg/mL (15-65) H 02/26/20 08:15 Arterial Blood Glucose 112 mg/dL (65-95) H 03/07/20 04:42 Arterial Blood Ionized Calcium 4.8 mg/dL (4.6-5.3) 03/07/20 04:42 Urine Color Yellow (Yellow) 02/24/20 Unknown Urine Turbidity Clear (Clear) 02/24/20 Unknown Urine pH 6.0 (5.0-7.0) 02/24/20 Unknown Ur Specific [place] 1.020 (1.003-1.030) 02/24/20 Unknown Urine Protein >500 mg/dL (Negative) 02/24/20 Unknown Urine Glucose (UA) 50 mg/dL (Negative) 02/24/20 Unknown Urine Ketones Neg mg/dL (Negative) 02/24/20 Unknown Urine Blood Lg (Negative) 02/24/20 Unknown Urine Nitrite Neg (Negative) 02/24/20 Unknown Urine Bilirubin Neg (Negative) 02/24/20 Unknown Urine Urobilinogen < 2.0 mg/dL (<2.0) 02/24/20 Unknown Ur Leukocyte Esterase Neg (Negative) 02/24/20 Unknown Urine WBC (Auto) 11.0 /HPF (0.0-6.0) H 02/24/20 Unknown Urine RBC (Auto) 149.0 /HPF (0.0-6.0) 02/24/20 Unknown U Epithel Cells (Auto) 5.0 /HPF (0-13.0) 02/24/20 Unknown Urine Bacteria (Auto) 1+ /HPF (Negative) 02/24/20 Unknown Urine Mucus Few /HPF 02/24/20 Unknown Urine Creatinine 161.0 mg/dL (0.1-20.0) H 02/25/20 22:55 Protein/Creatinin Ratio 0.93 02/25/20 22:55 Urine Total Protein 150 mg/dL (5-11.8) H 02/25/20 22:55 ZINA Screen Positive (Negative) H 02/26/20 04:39 Proteinase 3 (PR3) Ab <1.0 AI (<1.0) 02/26/20 04:39 Myeloperoxidase Ab <1.0 AI (<1.0) 02/26/20 04:39 Complement C3 153 mg/dL (83-193) 02/26/20 04:39 Complement C4 35 mg/dL (15-57) 02/26/20 04:39 Hepatitis A IgM Ab Non-reactive (NonReactive) 03/03/20 12:34 Hep Bs Antigen Non-reactive (Negative) 03/03/20 12:34 Hep B Core IgM Ab Non-reactive (NonReactive) 03/03/20 12:34 Hepatitis C Antibody Non-reactive (NonReactive) 03/03/20 12:34 Blood Type AB POSITIVE 03/01/20 18:30 Antibody Screen Negative 03/01/20 18:30 Crossmatch See Detail 03/01/20 18:30 Microbiology: Microbiology 03/06/20 18:18 Peripheral/Venous Blood Culture - Preliminary NO GROWTH AFTER 72 HOURS 03/07/20 Unknown Tracheal Aspirate Sputum Culture - Preliminary 03/07/20 18:23 Urine,Clean Catch Urine Culture - Final - Diagnostic Impressions Diagnostic Impressions: Echocardiogram 02/26/20 09:11 Transthoracic Echocardiogram Indication: Cardiomegaly BP: 149/92 HR: 122 Conclusions *Global left ventricular systolic function is normal. *The estimated ejection fraction is 60-65%. *Moderate to severe concentric left ventricular hypertrophy is observed. *The left atrium is mild to moderately dilated. *The aortic valve leaflets are moderately thickened. *A mean gradient of 22.39 mmHg across the outflow tract is likely not due to but hyperdynamic flow and LVH. *There is trace tricuspid regurgitation. Findings Left Ventricle: The left ventricular chamber size is normal. Moderate to severe concentric left ventricular hypertrophy is observed. Global left ventricular systolic function is normal. The estimated ejection fraction is 60-65%. Left Atrium: The left atrium is mild to moderately dilated. Right Ventricle: The right ventricular cavity size is normal. The right ventricular global systolic function is normal. Right Atrium: The right atrial cavity size is normal. Aortic Valve: The aortic valve leaflets are moderately thickened. There is no evidence of aortic regurgitation. The mean gradient of the aortic valve is 22.39 mmHg. Mitral Valve: The mitral valve leaflets are mildly thickened. There is trace of mitral regurgitation. There is no evidence of mitral stenosis. Tricuspid Valve: There is trace tricuspid regurgitation. No pulmonary hypertension is noted. Pulmonic Valve: There is trace pulmonic regurgitation. Pericardium: There is no pericardial effusion. Aorta: There is no dilatation of the ascending aorta. There is no dilatation of the aortic root. Venous: The inferior vena cava appears normal in size. Measurements Chambers 2D Name Value Normal Range IVSd (2D) 1.8 cm (0.6 - 1.1) LVPWd (2D) 1.74 cm (0.6 - 1.1) LVIDd (2D) 4.57 cm (3.7 - 5.6) LVIDs (2D) 2.73 cm (2 - 3.8) LV FS (2D) 40.27 % - EF Teichholz (2D) 71.04 % - Ao root diameter (2D) 2.79 cm (2 - 3.7) Volumes/Mass Name Value Normal Range LA ESV SP 4CH (A/L) 54.18 ml - LA ESV SP 2CH (A/L) 61.84 ml - LA ESV BP (A/L) 58.1 ml - LA ESV BP (A/L) index 30.74 ml/m2 - LA ESV SP 4CH (MOD) 52.89 ml - LA ESV SP 2CH (MOD) 60.65 ml - LA ESV BP (MOD) 56.77 ml - LA ESV BP (MOD) index 30.04 ml/m2 - LV EDV SP 4CH (MOD) 164.2 ml - LV ESV SP 4CH (MOD) 58.04 ml - EF SP 4CH (MOD) 64.65 % - Diastolic/Systolic Function Name Value Normal Range MV E-wave Vmax 1.38 m/sec - MV deceleration time 92.78 msec - MV A-wave Vmax 1.44 m/sec - MV E:A ratio 0.95 ratio - Aortic Valve Name Value Normal Range AV Vmax 3.08 m/sec - AV VTI 36.74 cm - AV peak gradient 37.98 mmHg - AV mean gradient 22.39 mmHg - LVOT diameter 2.01 cm - LVOT Vmax 2.45 m/sec - LVOT VTI 29.85 cm - LVOT peak gradient 24.04 mmHg - LVOT mean gradient 11.11 mmHg - SV LVOT 94.73 ml - JADA (continuity Vmax) 2.52 cm2 - JADA (continuity VTI) 2.58 cm2 - Ascending Ao 2.64 cm - Mitral Valve Name Value Normal Range MV PHT 37.88 msec - MVA (PHT) 5.81 cm2 - Tricuspid Valve Name Value Normal Range IVC diameter 1.93 cm (1.2 - 2.3) Pulmonic Valve/Qp:Qs Name Value Normal Range PV Vmax 2.83 m/sec - PV VTI 45.88 cm - PV peak gradient 32.06 mmHg - PV mean gradient 16.11 mmHg - CA end-diastolic Vmax 0.81 m/sec - RVOT Vmax 1.82 m/sec - RVOT VTI 25.12 cm - RVOT peak gradient 13.3 mmHg - Franks/IV: Voiding Method Incontinent IV Catheter Type [Right VAS Cath Internal Jugular] IV Catheter Type [Left Upper INT / Saline Lock arm] IV Catheter Type [Right Upper INT / Saline Lock arm] IV Catheter Type [Right INT / Saline Lock Forearm] IV Catheter Type [Right Wrist] Peripheral IV IV Catheter Type [Right Peripheral IV Antecubital] Active Medications - Current Medications Current Medications: Generic Name Dose Route Start Last Admin Trade Name Freq PRN Reason Stop Dose Admin Acetaminophen 650 mg 02/26/20 16:23 03/10/20 07:16 Tylenol PO 650 mg Q4H PRN Administration Pain, Mild (1-3)/ Temp >100. Albuterol 2.5 mg 02/27/20 17:55 Proventil IH Q4HRT PRN Shortness Of Breath Albuterol/Ipratropium 1 ampul 02/28/20 12:17 03/10/20 07:37 Duoneb *Not For Prn Use* IH 1 ampul Q6HRT INDU Administration Amlodipine Besylate 10 mg 02/28/20 10:00 03/10/20 09:09 Amlodipine PO 10 mg QDAY INDU Administration Lipase/Protease/Amylase 1 each 03/01/20 08:46 Pancrealivia Davis 10,500 Unit FEEDTUBE PRN PRN For Clogged Feeding Tube Dextrose 50 ml 02/29/20 08:00 03/01/20 00:20 D50w (25gm) Syringe IV 10 ml Q30MIN PRN Administration HYPOGLYCEMIA Protocol Heparin Sodium (Porcine) 5,000 unit 02/24/20 14:00 03/10/20 05:29 Heparin SUB-Q 5,000 unit Q8HR INDU Administration Hydralazine HCl 25 mg 03/04/20 14:00 03/10/20 05:30 Apresoline PO 25 mg Q8HR INDU Administration Hydrophilic Ointment 1 applic 02/29/20 15:35 Vaseline Lip Therapy TP Q2HR PRN Dry Lips Fentanyl Citrate 2,000 mcg in 100 mls @ 4.55 mls/hr 02/29/20 16:00 03/10/20 07:43 Fentanyl Drip Premix IV 0 mcg/kg/hr TITR INDU 0 mls/hr Titration Protocol 1 MCG/KG/HR MEROPENEM/NS 1 GRAM/100 ML 1 gram in 100 mls @ 100 mls/hr 03/03/20 18:00 03/09/20 17:03 Merrem/Ns 1 Gram/100 Ml IV 100 mls/hr QPM INDU Administration Protocol Sodium Chloride 100 mls @ 999 mls/hr 03/08/20 17:05 Nacl 0.9% IV NIKOLAY PRN Hypotension Labetalol HCl 10 mg 02/28/20 09:00 03/05/20 04:10 Labetalol IV 10 mg Q4H PRN Administration Hypertension Lansoprazole 30 mg 03/06/20 10:00 03/10/20 09:08 Prevacid Solutab FEEDTUBE 30 mg QDAY INDU Administration Lorazepam 4 mg 03/06/20 11:00 03/09/20 18:40 Ativan IV 4 mg Q4H PRN Administration AGITATION Metoprolol Tartrate 25 mg 02/28/20 10:00 03/10/20 09:08 Metoprolol PO 25 mg BID INDU Administration Multi-Ingred Cream/Lotion/Oil/Oint 1 applic 02/29/20 15:35 Artificial Tears Ophth Oint OU Q4HR PRN Dry Eye(s) Ondansetron HCl 4 mg 02/24/20 06:45 02/25/20 23:33 Zofran IV 4 mg Q8H PRN Administration Nausea And Vomiting Quetiapine Fumarate 100 mg 03/06/20 10:00 03/10/20 09:08 Seroquel PO 100 mg QAM INDU Administration Quetiapine Fumarate 200 mg 03/06/20 22:00 03/09/20 21:19 Seroquel PO 200 mg QHS INDU Administration Scopolamine 1 each 03/04/20 16:00 03/10/20 09:07 Transderm-Scop TD 1 each Q3D INDU Administration Simple Syrup 15 ml 03/01/20 08:46 Simple Syrup FEEDTUBE PRN PRN Hypoglycemia Simple Syrup 30 ml 03/01/20 08:46 Simple Syrup FEEDTUBE PRN PRN Hypoglycemia Sodium Bicarbonate 325 mg 03/01/20 08:46 Sodium Bicarbonate FEEDTUBE PRN PRN For Clogged Feeding Tube Sodium Chloride 10 ml 02/24/20 10:00 03/10/20 09:07 Sodium Chloride Flush Syringe 10 Ml IV 10 ml BID INDU Administration Sodium Chloride 10 ml 02/24/20 06:45 03/10/20 09:06 Sodium Chloride Flush Syringe 10 Ml IV 10 ml PRN PRN Administration LINE FLUSH Tamsulosin HCl 0.4 mg 03/01/20 17:00 03/10/20 09:09 Flomax PO 0.4 mg QDAY INDU Administration Nutrition/Malnutrition Assess - Dietary Evaluation Nutrition/Malnutrition Findings: Nutrition Notes Start: 02/24/20 13:42 Freq: Status: Active Protocol: Document 03/06/20 13:32 [email or web address] (Rec: 03/06/20 13:41 [email or web address]) Co-Sign 03/06/20 13:32 Nutrition Notes Initial or Follow up Reassessment Current Diagnosis Acute Kidney Injury,Sepsis, Hypertension,Respiratory Failure,Hyperlipidemia Other Pertinent Diagnosis Acute pancreatitis, HD Current Diet Nepro 1.8 at 35ml/hr Labs/Tests BUN 70 Cr 7.1 BG 113 Pertinent Medications Reviewed Height 5 ft 1 in Weight 91 kg [place] Body Weight (kg) 47.72 BMI 37.9 Weight Status Obese Subjective/Other Information F/U for stable TF. Pt TF running at goal rate and tolerating. Percent of energy/protein needs met: 100%/70% Burn Absent Trauma Absent GI Symptoms None Current % PO Negligible Minimum of two criteria No Fluid Accumulation Moderate to Severe (severe) #2 Nutrition Diagnosis Inadequate oral intake Diagnosis Progress(for reassessment Continues documentation) #1 Nutrition Diagnosis Food and nutrition-related knowledge deficit Diagnosis Progress(for reassessment Continues documentation) Is patient on ventilator? Yes Is Patient Ambulatory and/or Out of Bed No REE-([facility]-confined to bed) 1823.604 Kcal/Kg value to use for calculation 16 Approximate Energy Requirements Using 1456 kcal/Kg Calculation Used for Recommendations Kcal/kg Additional Notes Pro: 96g (>2g/kg IBW) Fluid: 1ml/kcal Nutrition Intervention Change Diet Order: Continue TF Nutrition Support: Nepro 1.8 at 35ml/hr Flush 150ml q4h Kcal 1,512 Protein (gm) 68 Fluid (mL) 611 Goal #1 TF tolerance Goal #2 Meet at least 80% of energy and protein needs via TF Anticipated Discharge Needs: Undetermined at this time Follow-Up By: 03/11/20 Additional Comments F/U stable TF
--- NOTE | 2020-03-10 09:22 | Progress Note ---
Assessment and Plan Assessment * Acute kidney injury attributed to prerenal azotemia/ATN related to pancreatitis vs NSAID induced nephropathy vs PPI --Serologies: ANCA, C3, C4 - negative; ZINA positive * Acute hypoxic respiratory failure * Metabolic acidosis * Acute severe pancreatitis * Accelerated hypertension * Anemia Plan: * Patient is s/p HD yesterday. No acute need for HD today e * Continue MWF schedule for now- UF as tolerated; vascath in place * Monitor SCr trend and UOP for evidence of recovery * Await dsDNA * Continue antiHTN medications * Vent management per pulm * Abx per ID - currently on Meropenem * GI recommendations reviewed * Hold ACEi for now * Dose medications for renal function * Avoid potential nephrotoxins Subjective Date of service: 03/10/20 Principal diagnosis: HTNsive urgency; Morbid obesity; Ac. pancreatitis; Abdominal pain Interval history: Remains intubated. Tmax 102.4. Objective - Vital Signs Vital signs: Vital Signs - 12hr 03/09/20 03/09/20 03/09/20 21:30 21:53 22:00 Temperature Pulse Rate 102 H 92 H 91 H Pulse Rate [ Anterior Bilateral Throughout] Pulse Rate [ From Monitor] Respiratory 20 20 20 Rate Respiratory Rate [Anterior Bilateral Throughout] Blood Pressure 119/76 109/65 108/63 O2 Sat by Pulse 98 97 97 Oximetry 03/09/20 03/09/20 03/09/20 22:30 23:00 23:30 Temperature Pulse Rate 90 91 H 94 H Pulse Rate [ Anterior Bilateral Throughout] Pulse Rate [ From Monitor] Respiratory 20 20 20 Rate Respiratory Rate [Anterior Bilateral Throughout] Blood Pressure 109/62 105/60 110/63 O2 Sat by Pulse 97 97 96 Oximetry 03/10/20 03/10/20 03/10/20 00:00 00:30 00:35 Temperature 100.1 F H Pulse Rate 97 H 97 H 97 H Pulse Rate [ Anterior Bilateral Throughout] Pulse Rate [ 89 From Monitor] Respiratory 21 20 Rate Respiratory Rate [Anterior Bilateral Throughout] Blood Pressure 120/71 111/75 111/75 O2 Sat by Pulse 96 96 96 Oximetry 03/10/20 03/10/20 03/10/20 01:00 01:30 02:00 Temperature Pulse Rate 100 H 99 H 101 H Pulse Rate [ Anterior Bilateral Throughout] Pulse Rate [ From Monitor] Respiratory 20 20 20 Rate Respiratory Rate [Anterior Bilateral Throughout] Blood Pressure 115/75 106/69 115/70 O2 Sat by Pulse 97 96 96 Oximetry 03/10/20 03/10/20 03/10/20 02:30 03:00 03:30 Temperature Pulse Rate 100 H 97 H 98 H Pulse Rate [ Anterior Bilateral Throughout] Pulse Rate [ From Monitor] Respiratory 20 20 20 Rate Respiratory Rate [Anterior Bilateral Throughout] Blood Pressure 109/64 108/54 109/58 O2 Sat by Pulse 97 97 96 Oximetry 03/10/20 03/10/20 03/10/20 04:00 04:30 05:00 Temperature 102.4 F H Pulse Rate 95 H 96 H 98 H Pulse Rate [ Anterior Bilateral Throughout] Pulse Rate [ 84 From Monitor] Respiratory 20 20 21 Rate Respiratory Rate [Anterior Bilateral Throughout] Blood Pressure 98/59 112/64 111/62 O2 Sat by Pulse 97 96 98 Oximetry 03/10/20 03/10/20 03/10/20 05:30 06:00 06:30 Temperature Pulse Rate 106 H 113 H 96 H Pulse Rate [ Anterior Bilateral Throughout] Pulse Rate [ From Monitor] Respiratory 20 19 20 Rate Respiratory Rate [Anterior Bilateral Throughout] Blood Pressure 123/70 128/62 99/54 O2 Sat by Pulse 97 98 98 Oximetry 03/10/20 03/10/20 03/10/20 07:00 07:30 07:32 Temperature Pulse Rate 90 104 H 97 H Pulse Rate [ Anterior Bilateral Throughout] Pulse Rate [ From Monitor] Respiratory 20 21 Rate Respiratory Rate [Anterior Bilateral Throughout] Blood Pressure 99/58 109/77 109/77 O2 Sat by Pulse 98 100 99 Oximetry 03/10/20 03/10/20 03/10/20 07:34 07:37 08:00 Temperature 102.3 F H Pulse Rate 99 H 95 H Pulse Rate [ 103 H Anterior Bilateral Throughout] Pulse Rate [ 96 H From Monitor] Respiratory 20 27 H Rate Respiratory 27 H Rate [Anterior Bilateral Throughout] Blood Pressure 109/77 105/59 O2 Sat by Pulse 97 99 Oximetry 03/10/20 03/10/20 09:08 09:09 Temperature Pulse Rate 96 H 96 H Pulse Rate [ Anterior Bilateral Throughout] Pulse Rate [ From Monitor] Respiratory Rate Respiratory Rate [Anterior Bilateral Throughout] Blood Pressure 121/77 121/77 O2 Sat by Pulse Oximetry - General Appearance General appearance: well-developed, well-nourished EENT: ATNC, other (ETT in place) Respiratory: Present: Other (Coarse BS) Cardiology: regular, S1S2 Gastrointestinal: hypoactive bowel sounds, distended Integumentary: no rash, warm and dry Musculoskeletal: other (no edema) Psychiatric: cooperative - Lab 03/10/20 04:37 03/10/20 04:37 Most recent lab results ABG pH 7.429 (7.320-7.450) 03/07/20 04:42 ABG pCO2 43.1 mm Hg 03/05/20 05:04 ABG pO2 62.5 mm Hg (80.0-90.0) L 03/05/20 05:04 ABG HCO3 26.4 mmol/L (20.0-26.0) H 03/05/20 05:04 ABG O2 Saturation 92.1 % (95.0-99.0) L 03/05/20 05:04 Calcium 9.1 mg/dL (8.4-10.2) 03/10/20 04:37 Phosphorus 6.10 mg/dL (2.5-4.5) H 03/01/20 04:37 Magnesium 2.00 mg/dL (1.7-2.3) 03/07/20 05:03 Urine Creatinine 161.0 mg/dL (0.1-20.0) H 02/25/20 22:55 Urine Total Protein 150 mg/dL (5-11.8) H 02/25/20 22:55 Medications & Allergies - Medications Allergies/Adverse Reactions: Allergies No Known Allergies Allergy (Unverified 09/05/19 10:15) Home Medications: Home Medications Medication Instructions Recorded Confirmed Last Taken Type Amlodipine Besylate [Norvasc] 10 mg PO DAILY 09/05/19 02/24/20 09/04/19 History Furosemide [Lasix] 20 mg PO QDAY #30 tablet 09/05/19 02/24/20 Unknown Rx Lisinopril [Zestril] 5 mg PO DAILY #30 tablet 09/05/19 02/24/20 Unknown Rx Metoprolol [Lopressor TAB] 25 mg PO BID #60 tablet 09/05/19 02/24/20 Unknown Rx Active Medications: Generic Name Dose Route Start Last Admin Trade Name Freq PRN Reason Stop Dose Admin Acetaminophen 650 mg 02/26/20 16:23 03/10/20 07:16 Tylenol PO 650 mg Q4H PRN Administration Pain, Mild (1-3)/ Temp >100. Albuterol 2.5 mg 02/27/20 17:55 Proventil IH Q4HRT PRN Shortness Of Breath Albuterol/Ipratropium 1 ampul 02/28/20 12:17 03/10/20 07:37 Duoneb *Not For Prn Use* IH 1 ampul Q6HRT INDU Administration Amlodipine Besylate 10 mg 02/28/20 10:00 03/10/20 09:09 Amlodipine PO 10 mg QDAY INDU Administration Lipase/Protease/Amylase 1 each 03/01/20 08:[address] 10,500 Unit FEEDTUBE PRN PRN For Clogged Feeding Tube Dextrose 50 ml 02/29/20 08:00 03/01/20 00:20 D50w (25gm) Syringe IV 10 ml Q30MIN PRN Administration HYPOGLYCEMIA Protocol Heparin Sodium (Porcine) 5,000 unit 02/24/20 14:00 03/10/20 05:29 Heparin SUB-Q 5,000 unit Q8HR INDU Administration Hydralazine HCl 25 mg 03/04/20 14:00 03/10/20 05:30 Apresoline PO 25 mg Q8HR INDU Administration Hydrophilic Ointment 1 applic 02/29/20 15:35 Vaseline Lip Therapy TP Q2HR PRN Dry Lips Fentanyl Citrate 2,000 mcg in 100 mls @ 4.55 mls/hr 02/29/20 16:00 03/10/20 07:43 Fentanyl Drip Premix IV 0 mcg/kg/hr TITR INDU 0 mls/hr Titration Protocol 1 MCG/KG/HR MEROPENEM/NS 1 GRAM/100 ML 1 gram in 100 mls @ 100 mls/hr 03/03/20 18:00 03/09/20 17:03 Merrem/Ns 1 Gram/100 Ml IV 100 mls/hr QPM INDU Administration Protocol Sodium Chloride 100 mls @ 999 mls/hr 03/08/20 17:05 Nacl 0.9% IV NIKOLAY PRN Hypotension Labetalol HCl 10 mg 02/28/20 09:00 03/05/20 04:10 Labetalol IV 10 mg Q4H PRN Administration Hypertension Lansoprazole 30 mg 03/06/20 10:00 03/10/20 09:08 Prevacid Solutab FEEDTUBE 30 mg QDAY INDU Administration Lorazepam 4 mg 03/06/20 11:00 03/09/20 18:40 Ativan IV 4 mg Q4H PRN Administration AGITATION Metoprolol Tartrate 25 mg 02/28/20 10:00 03/10/20 09:08 Metoprolol PO 25 mg BID INDU Administration Multi-Ingred Cream/Lotion/Oil/Oint 1 applic 02/29/20 15:35 Artificial Tears Ophth Oint OU Q4HR PRN Dry Eye(s) Ondansetron HCl 4 mg 02/24/20 06:45 02/25/20 23:33 Zofran IV 4 mg Q8H PRN Administration Nausea And Vomiting Quetiapine Fumarate 100 mg 03/06/20 10:00 03/10/20 09:08 Seroquel PO 100 mg QAM INDU Administration Quetiapine Fumarate 200 mg 03/06/20 22:00 03/09/20 21:19 Seroquel PO 200 mg QHS INDU Administration Scopolamine 1 each 03/04/20 16:00 03/10/20 09:07 Transderm-Scop TD 1 each Q3D INDU Administration Simple Syrup 15 ml 03/01/20 08:46 Simple Syrup FEEDTUBE PRN PRN Hypoglycemia Simple Syrup 30 ml 03/01/20 08:46 Simple Syrup FEEDTUBE PRN PRN Hypoglycemia Sodium Bicarbonate 325 mg 03/01/20 08:46 Sodium Bicarbonate FEEDTUBE PRN PRN For Clogged Feeding Tube Sodium Chloride 10 ml 02/24/20 10:00 03/10/20 09:07 Sodium Chloride Flush Syringe 10 Ml IV 10 ml BID INDU Administration Sodium Chloride 10 ml 02/24/20 06:45 03/10/20 09:06 Sodium Chloride Flush Syringe 10 Ml IV 10 ml PRN PRN Administration LINE FLUSH Tamsulosin HCl 0.4 mg 03/01/20 17:00 03/10/20 09:09 Flomax PO 0.4 mg QDAY INDU Administration
--- NOTE | 2020-03-10 13:23 | Progress Note ---
Assessment and Plan Cultures: Urine culture grew 10-100,000 usual xavier. Blood culture 02/26/2020 no growth 02/29/2020 sputum culture: rare usual xavier 03/06/2020 blood culture: no growth 03/07/2020 sputum culture: no growth thus far Assessment: 39 years old female with history of hypertension, previous kidney stone, hyperlipidemia and obesity admitted on 02/24/2020 due to a week history of severe epigastric abdominal pain radiated to the right flank and back: #Acute sepsis: Likely secondary to severe pancreatitis and related complications. Remains critically ill. #Acute severe pancreatitis: Unclear etiology. Initial non-contrasted CT showed no evidence of necrosis or pseudocyst or abscess formation. Repeat CT 03/05 with interval worsening of acute pancreatitis without clear evidence of necrosis, however was done without IV contrast due to her renal function. #Acute renal failure: now requiring dialysis. Nephrology on board. #Acute respiratory hypoxic failure: on the vent. #?Alcohol abuse Recommendations: -continue with IV Meropenem, renally dosed, D8 today -ongoing fevers likely to due severe pancreatitis. WBC continues to improve. Louie Graves MD, FACP [facility] ([facility] C: [phone] O: [phone] F: [phone] Subjective Date of service: 03/10/20 Principal diagnosis: HTNsive urgency; Morbid obesity; Ac. pancreatitis; Abdominal pain Interval history: Remains febrile. Extubated. Feeling better. Passing gas. Denies any pain. Objective - Exam Narrative Exam: Physical Exam: Constitutional: awake, alert, no distress Head, Ears, Nose: Normocephalic, atraumatic. External ears, nose normal Eyes: Conjunctivae/corneas clear. No icterus. No ptosis. Neck: supple, no meningeal signs Cardiovascular: S1, S2 + Respiratory: AE fair but reduced in the bases GI: distended, no tenderness, bowel sounds + Musculoskeletal: No pedal edema, no cyanosis. HD cath + Skin: No rash or abscess Hem/Lymphatic: No palpable cervical or supraclavicular nodes. No lymphangitis Psych: no agitation, calm Neurological: awake, alert, answering questions - Constitutional Vitals: Vital Signs Temp Pulse Resp BP Pulse Ox 99.3 F 102 H 31 H 133/81 93 03/10/20 10:52 03/10/20 13:18 03/10/20 12:00 03/10/20 13:18 03/10/20 12:00 Temperature -Last 24 Hours Temperature 99.3 F Temperature 102.3 F Temperature 102.4 F Temperature 100.1 F Temperature 100.2 F Temperature 100.9 F Temperature 100.2 F Temperature 100.5 F - Labs CBC & Chem 7: 03/10/20 04:37 03/10/20 04:37 Labs: Abnormal lab results 03/07/20 03/09/20 03/10/20 Range/Units 04:42 18:22 04:37 WBC 16.0 H (4.5-11.0) K/mm3 RBC 2.99 L (3.65-5.03) M/mm3 Hgb 7.1 L (10.1-14.3) gm/dl Hct 22.4 L (30.3-42.9) % MCV 75 L (79-97) fl MCH 24 L (28-32) pg RDW 21.5 H (13.2-15.2) % Lymph % (Auto) 9.2 L (13.4-35.0) % Mcpherson % (Auto) 9.9 H (0.0-7.3) % Mcpherson # (Auto) 1.6 H (0.0-0.8) K/mm3 Seg Neutrophils % 79.2 H (40.0-70.0) % Seg Neutrophils # 12.6 H (1.8-7.7) K/mm3 POC ABG pO2 68.3 L (83-108) mmHg ABG Hemoglobin 9.3 L (12.0-17.5) ABG Sodium (136.0-145.0) mmol/L ABG Glucose 112 H (65-95) mg/dL BUN (7-17) mg/dL Creatinine (0.6-1.2) mg/dL Glucose (65-100) mg/dL POC Glucose 114 H (70-105) Arterial Blood Glucose 112 H (65-95) mg/dL 03/10/20 03/10/20 Range/Units 04:37 09:53 WBC (4.5-11.0) K/mm3 RBC (3.65-5.03) M/mm3 Hgb (10.1-14.3) gm/dl Hct (30.3-42.9) % MCV (79-97) fl MCH (28-32) pg RDW (13.2-15.2) % Lymph % (Auto) (13.4-35.0) % Mcpherson % (Auto) (0.0-7.3) % Mcpherson # (Auto) (0.0-0.8) K/mm3 Seg Neutrophils % (40.0-70.0) % Seg Neutrophils # (1.8-7.7) K/mm3 POC ABG pO2 (83-108) mmHg ABG Hemoglobin 7.7 L (12.0-17.5) ABG Sodium 134.7 L (136.0-145.0) mmol/L ABG Glucose 103 H (65-95) mg/dL BUN 45 H (7-17) mg/dL Creatinine 5.6 H (0.6-1.2) mg/dL Glucose 108 H (65-100) mg/dL POC Glucose (70-105) Arterial Blood Glucose 103 H (65-95) mg/dL
--- NOTE | 2020-03-10 14:33 | Progress Note ---
Assessment and Plan Acute Hypoxemic Respiratory Failure on MVS Severe Sepsis Acute Toxic-Metabolic Encephalopathy Hypertensive urgency Morbid obesity Acute pancreatitis, abdominal pain Medical non compliance Oropharyngeal Dysphagia She is tolerating SBT, get weaning parameters. Goal to liberate from MVS BIPAP qhs and prn PT/OT to evaluate and treat Bedside swallow evaluation, if she fails- CHIEF DESIGN ENGINEER to evaluate for dysphagia Incentive spirometry - HD/UF for toxin and volume clearance per Renal service, HD/UF today - daily SAT and SBT assessment as tolerated - on minimal vent settings at this time - continue current vent settings - continue to hold fentanyl for SBT - accuchecks with glycemic control per SSI (While critically ill target blood glucose of 140-180 mg/dL; avoid hypoglycemia) - sedation for target RASS -1 to -2 - continue to wean supplemental oxygen for target O2 sats > 90% - VAP bundle addressed - continue lung protective strategies - continue bronchodilators with pulmonary hygiene per RT - wean per pulmonary driven protocols otherwise - continue enteral nutritiuon at goal rate as tolerated - complete Meropenem; de-escalate per ID rec's - JUANIS per expeller worker, OUTER DIAMETER GRINDER - VTE prophylaxis-Heparin - prn Analgesia per CPOT score - avoid nephrotoxins, renally dose all medications - Maintenance of sleep-wake cycle, avoid delirium - Stress ulcer prophylaxis-PPI - mobility protocol, off loading and frequent turning for pressure ulcer prevention - Monitor hemodynamics closely CONDITION: CRITICAL PROGNOSIS: GUARDED CODE STATUS: FULL CODE The high probability of a clinically significant, sudden or life-threatening d eterioration of the [respiratory, cardiovascular & GI] system(s) required my full and direct attention, intervention and personal management. The aggregate critical care time was [34] minutes without overlap. Time includes spent on; [x] Data Review and interpretation [x] Patient assessment and monitoring of vital signs [x] Documentation [x] Medication orders and management Subjective Date of service: 03/10/20 Principal diagnosis: HTNsive urgency; Morbid obesity; Ac. pancreatitis; Abdominal pain Interval history: Patient is seen today for: Acute hypoxemic respiratory failure on MVS; Hypertensive urgency; Morbid obesity; Acute pancreatitis; abdominal pain; Medical non compliance; Acute Toxic Metabolic Encephalopathy Seen and examined at bedside; 24hour events reviewed; nursing and respiratory care staff consulted; no adverse overnight events reported to me; resting peacefully in bed; remains on MVS; episodes of agitation overnight requiring prn doses of Lorazepam; On Klonipin, Fentanyl off on PSV 03/10, tolerating it Awaiting HD Objective Vital Signs - 12hr 03/10/20 03/10/20 03/10/20 03:00 03:30 04:00 Temperature 102.4 F H Pulse Rate 97 H 98 H 95 H Pulse Rate [ Anterior Bilateral Throughout] Pulse Rate [ 84 From Monitor] Respiratory 20 20 20 Rate Respiratory Rate [Anterior Bilateral Throughout] Blood Pressure 108/54 109/58 98/59 O2 Sat by Pulse 97 96 97 Oximetry 03/10/20 03/10/20 03/10/20 04:30 05:00 05:30 Temperature Pulse Rate 96 H 98 H 106 H Pulse Rate [ Anterior Bilateral Throughout] Pulse Rate [ From Monitor] Respiratory 20 21 20 Rate Respiratory Rate [Anterior Bilateral Throughout] Blood Pressure 112/64 111/62 123/70 O2 Sat by Pulse 96 98 97 Oximetry 03/10/20 03/10/20 03/10/20 06:00 06:30 07:00 Temperature Pulse Rate 113 H 96 H 90 Pulse Rate [ Anterior Bilateral Throughout] Pulse Rate [ From Monitor] Respiratory 19 20 20 Rate Respiratory Rate [Anterior Bilateral Throughout] Blood Pressure 128/62 99/54 99/58 O2 Sat by Pulse 98 98 98 Oximetry 03/10/20 03/10/20 03/10/20 07:30 07:32 07:34 Temperature Pulse Rate 104 H 97 H 99 H Pulse Rate [ Anterior Bilateral Throughout] Pulse Rate [ From Monitor] Respiratory 21 20 Rate Respiratory Rate [Anterior Bilateral Throughout] Blood Pressure 109/77 109/77 109/77 O2 Sat by Pulse 100 99 97 Oximetry 03/10/20 03/10/20 03/10/20 07:37 08:00 08:30 Temperature 102.3 F H Pulse Rate 95 H 97 H Pulse Rate [ 103 H Anterior Bilateral Throughout] Pulse Rate [ 96 H From Monitor] Respiratory 27 H 27 H Rate Respiratory 27 H Rate [Anterior Bilateral Throughout] Blood Pressure 105/59 111/61 O2 Sat by Pulse 99 99 Oximetry 03/10/20 03/10/20 03/10/20 09:00 09:08 09:09 Temperature Pulse Rate 99 H 96 H 96 H Pulse Rate [ Anterior Bilateral Throughout] Pulse Rate [ From Monitor] Respiratory 27 H Rate Respiratory Rate [Anterior Bilateral Throughout] Blood Pressure 121/77 121/77 121/77 O2 Sat by Pulse Oximetry 03/10/20 03/10/20 03/10/20 09:30 10:00 10:30 Temperature Pulse Rate 91 H 89 88 Pulse Rate [ Anterior Bilateral Throughout] Pulse Rate [ From Monitor] Respiratory 27 H 28 H 27 H Rate Respiratory Rate [Anterior Bilateral Throughout] Blood Pressure 122/77 127/77 123/80 O2 Sat by Pulse 99 100 99 Oximetry 03/10/20 03/10/20 03/10/20 10:52 11:00 11:15 Temperature 99.3 F Pulse Rate 93 H Pulse Rate [ Anterior Bilateral Throughout] Pulse Rate [ From Monitor] Respiratory 30 H Rate Respiratory Rate [Anterior Bilateral Throughout] Blood Pressure 134/93 O2 Sat by Pulse 100 100 Oximetry 03/10/20 03/10/20 03/10/20 11:30 12:00 12:30 Temperature 99.8 F H Pulse Rate 98 H 99 H 109 H Pulse Rate [ Anterior Bilateral Throughout] Pulse Rate [ 104 H From Monitor] Respiratory 24 31 H 26 H Rate Respiratory Rate [Anterior Bilateral Throughout] Blood Pressure 143/89 125/80 149/107 O2 Sat by Pulse 99 93 97 Oximetry 03/10/20 03/10/20 03/10/20 13:00 13:18 13:30 Temperature Pulse Rate 104 H 102 H 101 H Pulse Rate [ Anterior Bilateral Throughout] Pulse Rate [ From Monitor] Respiratory 19 25 H Rate Respiratory Rate [Anterior Bilateral Throughout] Blood Pressure 137/87 133/81 128/81 O2 Sat by Pulse 98 Oximetry 03/10/20 03/10/20 14:00 14:02 Temperature Pulse Rate 101 H Pulse Rate [ 102 H Anterior Bilateral Throughout] Pulse Rate [ From Monitor] Respiratory 23 Rate Respiratory 26 H Rate [Anterior Bilateral Throughout] Blood Pressure 133/72 O2 Sat by Pulse Oximetry Constitutional: no acute distress, other (Obese female with mildly increased respiratory effort at rest on MVS, ) Eyes: non-icteric ENT: oropharynx moist, other (ETT 24 cm TY, RIJ HD trialysis catheter) Neck: supple, no lymphadenopathy, no JVD Effort: normal Ascultation: Bilateral: diminished breath sounds (at the bases), wheezes (expiratory), rales, rhonchi Percussion: Bilateral: not dull Cardiovascular: regular rate and rhythm, other (S1,S2) Gastrointestinal: hypoactive bowel sounds, non-tender, other (distended and firm) Integumentary: normal Extremities: no cyanosis, no edema, pink and warm, pulses normal Neurologic: non-focal exam, pupils equal and round, motor strength normal and Psychiatric: mood appropriate, affect normal CBC and BMP: 03/10/20 04:37 03/10/20 04:37 ABG, PT/INR, D-dimer: ABG ABG pH 7.400 (7.320-7.450) 03/10/20 09:53 POC ABG pCO2 43.9 mmHg (32.0-48.0) 03/10/20 09:53 ABG pCO2 43.1 mm Hg 03/05/20 05:04 POC ABG pO2 86.7 mmHg (83-108) 03/10/20 09:53 ABG pO2 62.5 mm Hg (80.0-90.0) L 03/05/20 05:04 POC ABG HCO3 26.6 03/10/20 09:53 ABG O2 Saturation 92.1 % (95.0-99.0) L 03/05/20 05:04 PT/INR, D-dimer PT 13.7 Sec. (12.2-14.9) 02/25/20 03:49 INR 1.03 (0.87-1.13) 02/25/20 03:49 Abnormal lab findings: Abnormal Labs 02/24/20 02/24/20 02/24/20 02:53 02:53 Unknown WBC 12.7 H Hgb 10.0 L RBC Hct MCV 70 L MCH 22 L RDW 17.9 H Plt Count 458 H Lymph % (Auto) 8.9 L Lymph # 1.1 L Rankin % (Auto) Rankin # Lymph # (Auto) Rankin # (Auto) Seg Neutrophils % 84.2 H Seg Neutrophils # 10.7 H Seg Neuts % (Manual) Lymphocytes % (Manual) Nucleated RBC % Seg Neutrophils # Man Lymphocytes # (Manual) Monocytes # (Manual) Eosinophils # (Manual) Basophils # (Manual) ABG pH POC ABG pCO2 POC ABG pO2 ABG pO2 ABG HCO3 ABG O2 Saturation ABG Base Excess ABG Hemoglobin ABG Oxyhemoglobin ABG Sodium ABG Glucose Oxyhemoglobin Sodium Potassium Chloride Carbon Dioxide BUN 27 H Creatinine 1.7 H Glucose 118 H POC Glucose Calcium Phosphorus Magnesium Direct Bilirubin Alkaline Phosphatase Albumin C-Reactive Protein Cyxon-6-Hqrebhxun PEP Interpretation Lipase 232 H PTH Intact Arterial Blood Glucose Urine WBC (Auto) 11.0 H Urine Creatinine Urine Total Protein ZINA Screen Crossmatch 02/25/20 02/25/20 02/25/20 00:03 03:49 03:49 WBC 29.1 H Hgb 9.4 L RBC Hct 30.2 L MCV 71 L MCH 22 L RDW 18.3 H Plt Count 525 H Lymph % (Auto) 3.4 L Lymph # 1.0 L Rankin % (Auto) Rankin # 1.0 H Lymph # (Auto) Rankin # (Auto) Seg Neutrophils % Seg Neutrophils # 26.4 H Seg Neuts % (Manual) Lymphocytes % (Manual) Nucleated RBC % Seg Neutrophils # Man Lymphocytes # (Manual) Monocytes # (Manual) Eosinophils # (Manual) Basophils # (Manual) ABG pH POC ABG pCO2 POC ABG pO2 ABG pO2 ABG HCO3 ABG O2 Saturation ABG Base Excess ABG Hemoglobin ABG Oxyhemoglobin ABG Sodium ABG Glucose Oxyhemoglobin Sodium Potassium Chloride Carbon Dioxide BUN Creatinine Glucose POC Glucose 126 H Calcium Phosphorus Magnesium Direct Bilirubin Alkaline Phosphatase Albumin C-Reactive Protein Xcgqs-7-Nrzjwajyo PEP Interpretation Lipase 1486 H PTH Intact Arterial Blood Glucose Urine WBC (Auto) Urine Creatinine Urine Total Protein ZINA Screen Crossmatch 02/25/20 02/25/20 02/25/20 03:49 05:55 22:55 WBC Hgb RBC Hct MCV MCH RDW Plt Count Lymph % (Auto) Lymph # Rankin % (Auto) Rankin # Lymph # (Auto) Rankin # (Auto) Seg Neutrophils % Seg Neutrophils # Seg Neuts % (Manual) Lymphocytes % (Manual) Nucleated RBC % Seg Neutrophils # Man Lymphocytes # (Manual) Monocytes # (Manual) Eosinophils # (Manual) Basophils # (Manual) ABG pH POC ABG pCO2 POC ABG pO2 ABG pO2 ABG HCO3 ABG O2 Saturation ABG Base Excess ABG Hemoglobin ABG Oxyhemoglobin ABG Sodium ABG Glucose Oxyhemoglobin Sodium 136 L Potassium Chloride 97.9 L Carbon Dioxide 21 L BUN 39 H Creatinine 3.0 H D Glucose 118 H POC Glucose 124 H Calcium Phosphorus Magnesium Direct Bilirubin Alkaline Phosphatase Albumin 3.6 L C-Reactive Protein Uvryn-2-Uddofhypj PEP Interpretation Lipase PTH Intact Arterial Blood Glucose Urine WBC (Auto) Urine Creatinine 161.0 H Urine Total Protein 150 H ZINA Screen Crossmatch 02/26/20 02/26/20 02/26/20 04:39 04:39 04:39 WBC 30.3 H Hgb 9.1 L RBC Hct 29.8 L MCV 71 L MCH 22 L RDW 18.2 H Plt Count 530 H Lymph % (Auto) Lymph # Rankin % (Auto) Rankin # Lymph # (Auto) Rankin # (Auto) Seg Neutrophils % Seg Neutrophils # Seg Neuts % (Manual) Lymphocytes % (Manual) Nucleated RBC % Seg Neutrophils # Man Lymphocytes # (Manual) Monocytes # (Manual) Eosinophils # (Manual) Basophils # (Manual) ABG pH POC ABG pCO2 POC ABG pO2 ABG pO2 ABG HCO3 ABG O2 Saturation ABG Base Excess ABG Hemoglobin ABG Oxyhemoglobin ABG Sodium ABG Glucose Oxyhemoglobin Sodium Potassium Chloride Carbon Dioxide 19 L BUN 44 H Creatinine 3.1 H Glucose 106 H POC Glucose Calcium 8.1 L Phosphorus Magnesium Direct Bilirubin Alkaline Phosphatase Albumin C-Reactive Protein Pjovm-4-Xswyxdrdp PEP Interpretation Lipase 540 H PTH Intact Arterial Blood Glucose Urine WBC (Auto) Urine Creatinine Urine Total Protein ZINA Screen Positive H Crossmatch 02/26/20 02/26/20 02/26/20 04:39 08:15 12:14 WBC Hgb RBC Hct MCV MCH RDW Plt Count Lymph % (Auto) Lymph # Rankin % (Auto) Rankin # Lymph # (Auto) Rankin # (Auto) Seg Neutrophils % Seg Neutrophils # Seg Neuts % (Manual) Lymphocytes % (Manual) Nucleated RBC % Seg Neutrophils # Man Lymphocytes # (Manual) Monocytes # (Manual) Eosinophils # (Manual) Basophils # (Manual) ABG pH POC ABG pCO2 POC ABG pO2 ABG pO2 ABG HCO3 ABG O2 Saturation ABG Base Excess ABG Hemoglobin ABG Oxyhemoglobin ABG Sodium ABG Glucose Oxyhemoglobin Sodium Potassium Chloride Carbon Dioxide BUN Creatinine Glucose POC Glucose 112 H Calcium Phosphorus Magnesium Direct Bilirubin Alkaline Phosphatase Albumin 2.8 L C-Reactive Protein Vwmqq-0-Rjnbolcuc 0.7 H PEP Interpretation see below H Lipase PTH Intact 911.3 H Arterial Blood Glucose Urine WBC (Auto) Urine Creatinine Urine Total Protein ZINA Screen Crossmatch 02/27/20 02/27/20 02/27/20 04:18 04:18 04:18 WBC 26.8 H Hgb 7.9 L RBC Hct 26.3 L MCV 70 L MCH 21 L RDW 18.0 H Plt Count 513 H Lymph % (Auto) Lymph # Rankin % (Auto) Rankin # Lymph # (Auto) Rankin # (Auto) Seg Neutrophils % Seg Neutrophils # Seg Neuts % (Manual) Lymphocytes % (Manual) Nucleated RBC % Seg Neutrophils # Man Lymphocytes # (Manual) Monocytes # (Manual) Eosinophils # (Manual) Basophils # (Manual) ABG pH POC ABG pCO2 POC ABG pO2 ABG pO2 ABG HCO3 ABG O2 Saturation ABG Base Excess ABG Hemoglobin ABG Oxyhemoglobin ABG Sodium ABG Glucose Oxyhemoglobin Sodium 135 L 135 L Potassium Chloride Carbon Dioxide 15 L 16 L BUN 50 H 51 H Creatinine 3.4 H 3.4 H Glucose POC Glucose Calcium 7.4 L 7.5 L Phosphorus Magnesium Direct Bilirubin Alkaline Phosphatase Albumin 3.0 L C-Reactive Protein 37.30 H Usyfj-1-Myjzwnnfb PEP Interpretation Lipase 177 H PTH Intact Arterial Blood Glucose Urine WBC (Auto) Urine Creatinine Urine Total Protein ZINA Screen Crossmatch 02/27/20 02/28/20 02/28/20 16:57 05:07 05:07 WBC Hgb RBC Hct MCV MCH RDW Plt Count Lymph % (Auto) Lymph # Rankin % (Auto) Rankin # Lymph # (Auto) Rankin # (Auto) Seg Neutrophils % Seg Neutrophils # Seg Neuts % (Manual) Lymphocytes % (Manual) Nucleated RBC % Seg Neutrophils # Man Lymphocytes # (Manual) Monocytes # (Manual) Eosinophils # (Manual) Basophils # (Manual) ABG pH 7.336 L POC ABG pCO2 POC ABG pO2 ABG pO2 57.0 L ABG HCO3 16.4 L ABG O2 Saturation 88.2 L ABG Base Excess -8.4 L ABG Hemoglobin 10.4 L ABG Oxyhemoglobin ABG Sodium ABG Glucose Oxyhemoglobin 85.7 L Sodium Potassium Chloride Carbon Dioxide 14 L BUN 60 H Creatinine 4.2 H Glucose POC Glucose Calcium 8.2 L Phosphorus Magnesium Direct Bilirubin Alkaline Phosphatase Albumin C-Reactive Protein Udoqu-2-Nxhzmcmoz PEP Interpretation Lipase 155 H PTH Intact Arterial Blood Glucose Urine WBC (Auto) Urine Creatinine Urine Total Protein ZINA Screen Crossmatch 02/28/20 02/28/20 02/28/20 05:56 11:05 11:05 WBC Hgb RBC Hct MCV MCH RDW Plt Count Lymph % (Auto) Lymph # Rankin % (Auto) Rankin # Lymph # (Auto) Rankin # (Auto) Seg Neutrophils % Seg Neutrophils # Seg Neuts % (Manual) Lymphocytes % (Manual) Nucleated RBC % Seg Neutrophils # Man Lymphocytes # (Manual) Monocytes # (Manual) Eosinophils # (Manual) Basophils # (Manual) ABG pH 7.317 L POC ABG pCO2 POC ABG pO2 76.2 L ABG pO2 ABG HCO3 16.4 L ABG O2 Saturation ABG Base Excess -8.9 L ABG Hemoglobin 6.6 L 7.6 L ABG Oxyhemoglobin ABG Sodium ABG Glucose Oxyhemoglobin 94.6 L Sodium Potassium Chloride Carbon Dioxide BUN Creatinine Glucose POC Glucose 115 H Calcium Phosphorus Magnesium Direct Bilirubin Alkaline Phosphatase Albumin C-Reactive Protein Ondxo-2-Vvuiztiyu PEP Interpretation Lipase PTH Intact Arterial Blood Glucose Urine WBC (Auto) Urine Creatinine Urine Total Protein ZINA Screen Crossmatch 02/28/20 02/28/20 02/29/20 17:39 19:39 05:43 WBC Hgb RBC Hct MCV MCH RDW Plt Count Lymph % (Auto) Lymph # Rankin % (Auto) Rankin # Lymph # (Auto) Rankin # (Auto) Seg Neutrophils % Seg Neutrophils # Seg Neuts % (Manual) Lymphocytes % (Manual) Nucleated RBC % Seg Neutrophils # Man Lymphocytes # (Manual) Monocytes # (Manual) Eosinophils # (Manual) Basophils # (Manual) ABG pH 7.300 L POC ABG pCO2 POC ABG pO2 ABG pO2 117.5 H ABG HCO3 15.0 L ABG O2 Saturation ABG Base Excess -10.5 L ABG Hemoglobin 6.4 L ABG Oxyhemoglobin ABG Sodium ABG Glucose Oxyhemoglobin Sodium Potassium Chloride Carbon Dioxide BUN Creatinine Glucose POC Glucose 120 H 66 L Calcium Phosphorus Magnesium Direct Bilirubin Alkaline Phosphatase Albumin C-Reactive Protein Msprg-2-Rgsibqxcr PEP Interpretation Lipase PTH Intact Arterial Blood Glucose Urine WBC (Auto) Urine Creatinine Urine Total Protein ZINA Screen Crossmatch 02/29/20 02/29/20 02/29/20 05:45 12:04 12:31 WBC Hgb RBC Hct MCV MCH RDW Plt Count Lymph % (Auto) Lymph # Rankin % (Auto) Rankin # Lymph # (Auto) Rankin # (Auto) Seg Neutrophils % Seg Neutrophils # Seg Neuts % (Manual) Lymphocytes % (Manual) Nucleated RBC % Seg Neutrophils # Man Lymphocytes # (Manual) Monocytes # (Manual) Eosinophils # (Manual) Basophils # (Manual) ABG pH 7.212 L POC ABG pCO2 POC ABG pO2 ABG pO2 ABG HCO3 ABG O2 Saturation ABG Base Excess ABG Hemoglobin 7.4 L ABG Oxyhemoglobin ABG Sodium ABG Glucose Oxyhemoglobin Sodium Potassium Chloride Carbon Dioxide BUN Creatinine Glucose POC Glucose 65 L 64 L Calcium Phosphorus Magnesium Direct Bilirubin Alkaline Phosphatase Albumin C-Reactive Protein Rqdpv-9-Wwuboosfo PEP Interpretation Lipase PTH Intact Arterial Blood Glucose Urine WBC (Auto) Urine Creatinine Urine Total Protein ZINA Screen Crossmatch 02/29/20 02/29/20 02/29/20 14:22 14:22 18:20 WBC Hgb RBC Hct MCV MCH RDW Plt Count Lymph % (Auto) Lymph # Rankin % (Auto) Rankin # Lymph # (Auto) Rankin # (Auto) Seg Neutrophils % Seg Neutrophils # Seg Neuts % (Manual) Lymphocytes % (Manual) Nucleated RBC % Seg Neutrophils # Man Lymphocytes # (Manual) Monocytes # (Manual) Eosinophils # (Manual) Basophils # (Manual) ABG pH POC ABG pCO2 POC ABG pO2 ABG pO2 ABG HCO3 ABG O2 Saturation ABG Base Excess ABG Hemoglobin ABG Oxyhemoglobin ABG Sodium ABG Glucose Oxyhemoglobin Sodium Potassium Chloride Carbon Dioxide 16 L BUN 77 H Creatinine 4.7 H Glucose POC Glucose 66 L Calcium Phosphorus 7.50 H Magnesium 2.60 H Direct Bilirubin Alkaline Phosphatase Albumin 2.3 L C-Reactive Protein Uovng-6-Nyjvjqotb PEP Interpretation Lipase PTH Intact Arterial Blood Glucose Urine WBC (Auto) Urine Creatinine Urine Total Protein ZINA Screen Crossmatch 02/29/20 03/01/20 03/01/20 18:24 04:05 04:37 WBC Hgb RBC Hct MCV MCH RDW Plt Count Lymph % (Auto) Lymph # Rankin % (Auto) Rankin # Lymph # (Auto) Rankin # (Auto) Seg Neutrophils % Seg Neutrophils # Seg Neuts % (Manual) Lymphocytes % (Manual) Nucleated RBC % Seg Neutrophils # Man Lymphocytes # (Manual) Monocytes # (Manual) Eosinophils # (Manual) Basophils # (Manual) ABG pH 7.271 L 7.347 L POC ABG pCO2 POC ABG pO2 ABG pO2 133.5 H ABG HCO3 15.8 L ABG O2 Saturation ABG Base Excess -8.9 L ABG Hemoglobin 7.2 L 7.6 L ABG Oxyhemoglobin 93.4 L ABG Sodium ABG Glucose Oxyhemoglobin Sodium Potassium Chloride 107.6 H Carbon Dioxide 14 L BUN 83 H Creatinine 5.6 H Glucose POC Glucose Calcium Phosphorus 6.10 H Magnesium 2.40 H Direct Bilirubin Alkaline Phosphatase Albumin C-Reactive Protein Wlwoj-7-Enysyankv PEP Interpretation Lipase PTH Intact Arterial Blood Glucose Urine WBC (Auto) Urine Creatinine Urine Total Protein ZINA Screen Crossmatch 03/01/20 03/01/20 03/01/20 11:06 16:22 18:12 WBC 30.5 H Hgb 6.2 L RBC 2.92 L Hct 20.8 L MCV 71 L MCH 21 L RDW 18.2 H Plt Count 560 H Lymph % (Auto) Lymph # Rankin % (Auto) Rankin # Lymph # (Auto) Rankin # (Auto) Seg Neutrophils % Seg Neutrophils # Seg Neuts % (Manual) 79.0 H Lymphocytes % (Manual) 3.0 L Nucleated RBC % Seg Neutrophils # Man 24.1 H Lymphocytes # (Manual) 0.9 L Monocytes # (Manual) 2.1 H Eosinophils # (Manual) Basophils # (Manual) ABG pH POC ABG pCO2 POC ABG pO2 ABG pO2 ABG HCO3 ABG O2 Saturation ABG Base Excess ABG Hemoglobin ABG Oxyhemoglobin ABG Sodium ABG Glucose Oxyhemoglobin Sodium Potassium 5.3 H D Chloride Carbon Dioxide 11 L BUN 77 H Creatinine 5.0 H Glucose 54 L POC Glucose 121 H Calcium Phosphorus Magnesium Direct Bilirubin Alkaline Phosphatase Albumin 3.0 L C-Reactive Protein 36.50 H Liqdy-8-Ofmtcfcbx PEP Interpretation Lipase PTH Intact Arterial Blood Glucose Urine WBC (Auto) Urine Creatinine Urine Total Protein ZINA Screen Crossmatch 03/01/20 03/01/20 03/01/20 18:30 23:37 Unknown WBC Hgb RBC Hct MCV MCH RDW Plt Count Lymph % (Auto) Lymph # Rankin % (Auto) Rankin # Lymph # (Auto) Rankin # (Auto) Seg Neutrophils % Seg Neutrophils # Seg Neuts % (Manual) Lymphocytes % (Manual) Nucleated RBC % Seg Neutrophils # Man Lymphocytes # (Manual) Monocytes # (Manual) Eosinophils # (Manual) Basophils # (Manual) ABG pH POC ABG pCO2 POC ABG pO2 ABG pO2 ABG HCO3 ABG O2 Saturation ABG Base Excess ABG Hemoglobin ABG Oxyhemoglobin ABG Sodium ABG Glucose Oxyhemoglobin Sodium Potassium Chloride Carbon Dioxide BUN Creatinine Glucose POC Glucose 125 H Calcium Phosphorus Magnesium Direct Bilirubin Alkaline Phosphatase Albumin C-Reactive Protein Bwyil-4-Rcfloefsw PEP Interpretation Lipase 297 H PTH Intact Arterial Blood Glucose Urine WBC (Auto) Urine Creatinine Urine Total Protein ZINA Screen Crossmatch See Detail 03/02/20 03/02/20 03/02/20 04:00 05:36 05:36 WBC 26.0 H Hgb 7.8 L RBC 3.26 L Hct 24.2 L MCV 74 L MCH 24 L RDW 21.3 H Plt Count 508 H Lymph % (Auto) Lymph # Rankin % (Auto) Rankin # Lymph # (Auto) Rankin # (Auto) Seg Neutrophils % Seg Neutrophils # Seg Neuts % (Manual) 86.0 H Lymphocytes % (Manual) 4.0 L Nucleated RBC % 2.0 H Seg Neutrophils # Man 22.4 H Lymphocytes # (Manual) 1.0 L Monocytes # (Manual) Eosinophils # (Manual) Basophils # (Manual) ABG pH POC ABG pCO2 27.8 L POC ABG pO2 ABG pO2 ABG HCO3 ABG O2 Saturation ABG Base Excess ABG Hemoglobin 8 L ABG Oxyhemoglobin ABG Sodium ABG Glucose Oxyhemoglobin Sodium Potassium Chloride Carbon Dioxide 17 L BUN 85 H Creatinine 5.6 H Glucose 109 H POC Glucose Calcium Phosphorus Magnesium 2.50 H Direct Bilirubin Alkaline Phosphatase Albumin 2.3 L C-Reactive Protein Ueety-2-Bpxvuclas PEP Interpretation Lipase PTH Intact Arterial Blood Glucose Urine WBC (Auto) Urine Creatinine Urine Total Protein ZINA Screen Crossmatch 03/03/20 03/03/20 03/03/20 04:00 04:36 04:36 WBC Hgb RBC Hct MCV MCH RDW Plt Count Lymph % (Auto) Lymph # Rankin % (Auto) Rankin # Lymph # (Auto) Rankin # (Auto) Seg Neutrophils % Seg Neutrophils # Seg Neuts % (Manual) Lymphocytes % (Manual) Nucleated RBC % Seg Neutrophils # Man Lymphocytes # (Manual) Monocytes # (Manual) Eosinophils # (Manual) Basophils # (Manual) ABG pH POC ABG pCO2 31.8 L POC ABG pO2 ABG pO2 ABG HCO3 ABG O2 Saturation ABG Base Excess ABG Hemoglobin 8.6 L ABG Oxyhemoglobin ABG Sodium ABG Glucose Oxyhemoglobin Sodium 147 H Potassium Chloride 108.4 H Carbon Dioxide 16 L BUN 87 H Creatinine 6.2 H Glucose POC Glucose Calcium Phosphorus Magnesium 2.50 H Direct Bilirubin 1.0 H Alkaline Phosphatase Albumin 2.4 L C-Reactive Protein Zmcyd-5-Rfhhkkcie PEP Interpretation Lipase 119 H PTH Intact Arterial Blood Glucose Urine WBC (Auto) Urine Creatinine Urine Total Protein ZINA Screen Crossmatch 03/03/20 03/03/20 03/03/20 04:36 12:48 17:48 WBC 28.0 H Hgb 8.1 L RBC 3.41 L Hct 25.3 L MCV 74 L MCH 24 L RDW 20.8 H Plt Count 557 H Lymph % (Auto) Lymph # Rankin % (Auto) Rankin # Lymph # (Auto) Rankin # (Auto) Seg Neutrophils % Seg Neutrophils # Seg Neuts % (Manual) 82.0 H Lymphocytes % (Manual) 4.0 L Nucleated RBC % Seg Neutrophils # Man 23.0 H Lymphocytes # (Manual) 1.1 L Monocytes # (Manual) 2.0 H Eosinophils # (Manual) Basophils # (Manual) ABG pH POC ABG pCO2 POC ABG pO2 ABG pO2 ABG HCO3 ABG O2 Saturation ABG Base Excess ABG Hemoglobin ABG Oxyhemoglobin ABG Sodium ABG Glucose Oxyhemoglobin Sodium Potassium Chloride Carbon Dioxide BUN Creatinine Glucose POC Glucose 131 H 113 H Calcium Phosphorus Magnesium Direct Bilirubin Alkaline Phosphatase Albumin C-Reactive Protein Lompr-8-Osbvbfcsg PEP Interpretation Lipase PTH Intact Arterial Blood Glucose Urine WBC (Auto) Urine Creatinine Urine Total Protein ZINA Screen Crossmatch 03/03/20 03/04/20 03/04/20 23:43 03:43 04:05 WBC Hgb RBC Hct MCV MCH RDW Plt Count Lymph % (Auto) Lymph # Rankin % (Auto) Rankin # Lymph # (Auto) Rankin # (Auto) Seg Neutrophils % Seg Neutrophils # Seg Neuts % (Manual) Lymphocytes % (Manual) Nucleated RBC % Seg Neutrophils # Man Lymphocytes # (Manual) Monocytes # (Manual) Eosinophils # (Manual) Basophils # (Manual) ABG pH POC ABG pCO2 POC ABG pO2 ABG pO2 57.4 L ABG HCO3 27.2 H ABG O2 Saturation 88.6 L ABG Base Excess ABG Hemoglobin ABG Oxyhemoglobin ABG Sodium ABG Glucose Oxyhemoglobin Sodium Potassium 3.3 L Chloride Carbon Dioxide BUN 65 H Creatinine 5.3 H Glucose 152 H POC Glucose 149 H Calcium Phosphorus Magnesium Direct Bilirubin 0.7 H Alkaline Phosphatase Albumin 2.5 L C-Reactive Protein Kcgrj-4-Xhxmikkou PEP Interpretation Lipase PTH Intact Arterial Blood Glucose Urine WBC (Auto) Urine Creatinine Urine Total Protein ZINA Screen Crossmatch 03/04/20 03/04/20 03/04/20 04:05 05:26 12:21 WBC 30.1 H Hgb 8.2 L RBC 3.44 L Hct 25.2 L MCV 73 L MCH 24 L RDW 20.7 H Plt Count 554 H Lymph % (Auto) 3.3 L Lymph # [place] % (Auto) [place] # Lymph # (Auto) 1.0 L [place] # (Auto) 2.0 H Seg Neutrophils % 88.6 H Seg Neutrophils # 26.6 H Seg Neuts % (Manual) Lymphocytes % (Manual) Nucleated RBC % Seg Neutrophils # Man Lymphocytes # (Manual) Monocytes # (Manual) Eosinophils # (Manual) Basophils # (Manual) ABG pH POC ABG pCO2 POC ABG pO2 ABG pO2 ABG HCO3 ABG O2 Saturation ABG Base Excess ABG Hemoglobin ABG Oxyhemoglobin ABG Sodium ABG Glucose Oxyhemoglobin Sodium Potassium Chloride Carbon Dioxide BUN Creatinine Glucose POC Glucose 136 H 155 H Calcium Phosphorus Magnesium Direct Bilirubin Alkaline Phosphatase Albumin C-Reactive Protein [id number]-[id number] PEP Interpretation Lipase PTH Intact Arterial Blood Glucose Urine WBC (Auto) Urine Creatinine Urine Total Protein ZINA Screen Crossmatch 03/04/20 03/04/20 03/04/20 18:02 19:00 23:24 WBC Hgb RBC Hct MCV MCH RDW Plt Count Lymph % (Auto) Lymph # [place] % (Auto) [place] # Lymph # (Auto) [place] # (Auto) Seg Neutrophils % Seg Neutrophils # Seg Neuts % (Manual) Lymphocytes % (Manual) Nucleated RBC % Seg Neutrophils # Man Lymphocytes # (Manual) Monocytes # (Manual) Eosinophils # (Manual) Basophils # (Manual) ABG pH POC ABG pCO2 POC ABG pO2 ABG pO2 ABG HCO3 ABG O2 Saturation ABG Base Excess ABG Hemoglobin ABG Oxyhemoglobin ABG Sodium ABG Glucose Oxyhemoglobin Sodium Potassium Chloride Carbon Dioxide BUN Creatinine Glucose POC Glucose 124 H 115 H Calcium Phosphorus Magnesium Direct Bilirubin Alkaline Phosphatase Albumin C-Reactive Protein Gyqgh-1-Lgrncmxyy PEP Interpretation Lipase 72 H PTH Intact Arterial Blood Glucose Urine WBC (Auto) Urine Creatinine Urine Total Protein ZINA Screen Crossmatch 03/05/20 03/05/20 03/05/20 05:04 05:29 06:00 WBC Hgb RBC Hct MCV MCH RDW Plt Count Lymph % (Auto) Lymph # [place] % (Auto) [place] # Lymph # (Auto) [place] # (Auto) Seg Neutrophils % Seg Neutrophils # Seg Neuts % (Manual) Lymphocytes % (Manual) Nucleated RBC % Seg Neutrophils # Man Lymphocytes # (Manual) Monocytes # (Manual) Eosinophils # (Manual) Basophils # (Manual) ABG pH POC ABG pCO2 POC ABG pO2 ABG pO2 62.5 L ABG HCO3 26.4 H ABG O2 Saturation 92.1 L ABG Base Excess ABG Hemoglobin 9.3 L ABG Oxyhemoglobin ABG Sodium ABG Glucose Oxyhemoglobin 89.9 L Sodium Potassium Chloride Carbon Dioxide BUN 54 H Creatinine 5.4 H Glucose 125 H POC Glucose 134 H Calcium Phosphorus Magnesium Direct Bilirubin 0.6 H Alkaline Phosphatase 133 H Albumin 2.5 L C-Reactive Protein Sjxng-5-Aofwdfusd PEP Interpretation Lipase PTH Intact Arterial Blood Glucose Urine WBC (Auto) Urine Creatinine Urine Total Protein ZINA Screen Crossmatch 03/05/20 03/05/20 03/05/20 12:18 18:01 21:39 WBC Hgb RBC Hct MCV MCH RDW Plt Count Lymph % (Auto) Lymph # [place] % (Auto) [place] # Lymph # (Auto) [place] # (Auto) Seg Neutrophils % Seg Neutrophils # Seg Neuts % (Manual) Lymphocytes % (Manual) Nucleated RBC % Seg Neutrophils # Man Lymphocytes # (Manual) Monocytes # (Manual) Eosinophils # (Manual) Basophils # (Manual) ABG pH POC ABG pCO2 POC ABG pO2 ABG pO2 ABG HCO3 ABG O2 Saturation ABG Base Excess ABG Hemoglobin ABG Oxyhemoglobin ABG Sodium ABG Glucose Oxyhemoglobin Sodium Potassium Chloride Carbon Dioxide BUN Creatinine Glucose POC Glucose 118 H 108 H 123 H Calcium Phosphorus Magnesium Direct Bilirubin Alkaline Phosphatase Albumin C-Reactive Protein [id number]-8-Ulvokbpnx PEP Interpretation Lipase PTH Intact Arterial Blood Glucose Urine WBC (Auto) Urine Creatinine Urine Total Protein ZINA Screen Crossmatch 03/06/20 03/06/20 03/06/20 04:40 04:41 05:44 WBC Hgb RBC Hct MCV MCH RDW Plt Count Lymph % (Auto) Lymph # [place] % (Auto) [place] # Lymph # (Auto) [place] # (Auto) Seg Neutrophils % Seg Neutrophils # Seg Neuts % (Manual) Lymphocytes % (Manual) Nucleated RBC % Seg Neutrophils # Man Lymphocytes # (Manual) Monocytes # (Manual) Eosinophils # (Manual) Basophils # (Manual) ABG pH POC ABG pCO2 POC ABG pO2 64.9 L ABG pO2 ABG HCO3 ABG O2 Saturation ABG Base Excess ABG Hemoglobin 9.9 L ABG Oxyhemoglobin 90.5 L ABG Sodium ABG Glucose Oxyhemoglobin Sodium Potassium Chloride 94.7 L Carbon Dioxide BUN 70 H Creatinine 7.1 H Glucose 113 H POC Glucose 134 H Calcium Phosphorus Magnesium Direct Bilirubin Alkaline Phosphatase Albumin C-Reactive Protein Izxvm-0-Zghhmjzjn PEP Interpretation Lipase PTH Intact Arterial Blood Glucose Urine WBC (Auto) Urine Creatinine Urine Total Protein ZINA Screen Crossmatch 03/06/20 03/06/20 03/06/20 08:54 11:56 18:19 WBC 31.5 H Hgb 8.7 L RBC Hct 27.8 L MCV 75 L MCH 23 L RDW 21.2 H Plt Count 516 H Lymph % (Auto) Lymph # [place] % (Auto) [place] # Lymph # (Auto) [place] # (Auto) Seg Neutrophils % Seg Neutrophils # Seg Neuts % (Manual) 93.0 H Lymphocytes % (Manual) 2.0 L Nucleated RBC % Seg Neutrophils # Man 29.3 H Lymphocytes # (Manual) 0.6 L Monocytes # (Manual) Eosinophils # (Manual) 0.6 H Basophils # (Manual) ABG pH POC ABG pCO2 POC ABG pO2 ABG pO2 ABG HCO3 ABG O2 Saturation ABG Base Excess ABG Hemoglobin ABG Oxyhemoglobin ABG Sodium ABG Glucose Oxyhemoglobin Sodium Potassium Chloride Carbon Dioxide BUN Creatinine Glucose POC Glucose 131 H 117 H Calcium Phosphorus Magnesium Direct Bilirubin Alkaline Phosphatase Albumin C-Reactive Protein Jyrfn-3-Ixbohibaz PEP Interpretation Lipase PTH Intact Arterial Blood Glucose Urine WBC (Auto) Urine Creatinine Urine Total Protein ZINA Screen Crossmatch 03/07/20 03/07/20 03/07/20 04:42 05:03 05:03 WBC 26.9 H Hgb 8.3 L RBC 3.50 L Hct 26.6 L MCV 76 L MCH 24 L RDW 21.3 H Plt Count 470 H Lymph % (Auto) Lymph # [place] % (Auto) [place] # Lymph # (Auto) [place] # (Auto) Seg Neutrophils % Seg Neutrophils # Seg Neuts % (Manual) 89.0 H Lymphocytes % (Manual) 4.0 L Nucleated RBC % Seg Neutrophils # Man 23.9 H Lymphocytes # (Manual) 1.1 L Monocytes # (Manual) Eosinophils # (Manual) Basophils # (Manual) 0.3 H ABG pH POC ABG pCO2 POC ABG pO2 68.3 L ABG pO2 ABG HCO3 ABG O2 Saturation ABG Base Excess ABG Hemoglobin 9.3 L ABG Oxyhemoglobin ABG Sodium ABG Glucose 112 H Oxyhemoglobin Sodium Potassium Chloride 94.8 L Carbon Dioxide BUN 52 H Creatinine 6.3 H Glucose 106 H POC Glucose Calcium Phosphorus Magnesium Direct Bilirubin Alkaline Phosphatase 132 H Albumin 2.5 L C-Reactive Protein Zrnxh-2-Kiqrprfri PEP Interpretation Lipase PTH Intact Arterial Blood Glucose 112 H Urine WBC (Auto) Urine Creatinine Urine Total Protein ZINA Screen Crossmatch 03/07/20 03/07/20 03/07/20 12:08 18:05 23:29 WBC Hgb RBC Hct MCV MCH RDW Plt Count Lymph % (Auto) Lymph # [place] % (Auto) [place] # Lymph # (Auto) [place] # (Auto) Seg Neutrophils % Seg Neutrophils # Seg Neuts % (Manual) Lymphocytes % (Manual) Nucleated RBC % Seg Neutrophils # Man Lymphocytes # (Manual) Monocytes # (Manual) Eosinophils # (Manual) Basophils # (Manual) ABG pH POC ABG pCO2 POC ABG pO2 ABG pO2 ABG HCO3 ABG O2 Saturation ABG Base Excess ABG Hemoglobin ABG Oxyhemoglobin ABG Sodium ABG Glucose Oxyhemoglobin Sodium Potassium Chloride Carbon Dioxide BUN Creatinine Glucose POC Glucose 114 H 111 H 118 H Calcium Phosphorus Magnesium Direct Bilirubin Alkaline Phosphatase Albumin C-Reactive Protein Ugwai-8-Jsebrdxys PEP Interpretation Lipase PTH Intact Arterial Blood Glucose Urine WBC (Auto) Urine Creatinine Urine Total Protein ZINA Screen Crossmatch 03/08/20 03/08/20 03/08/20 04:50 17:45 23:53 WBC Hgb RBC Hct MCV MCH RDW Plt Count Lymph % (Auto) Lymph # [place] % (Auto) [place] # Lymph # (Auto) [place] # (Auto) Seg Neutrophils % Seg Neutrophils # Seg Neuts % (Manual) Lymphocytes % (Manual) Nucleated RBC % Seg Neutrophils # Man Lymphocytes # (Manual) Monocytes # (Manual) Eosinophils # (Manual) Basophils # (Manual) ABG pH POC ABG pCO2 POC ABG pO2 ABG pO2 ABG HCO3 ABG O2 Saturation ABG Base Excess ABG Hemoglobin ABG Oxyhemoglobin ABG Sodium ABG Glucose Oxyhemoglobin Sodium Potassium Chloride 95.5 L Carbon Dioxide BUN 52 H Creatinine 6.2 H Glucose 109 H POC Glucose 106 H 106 H Calcium Phosphorus Magnesium Direct Bilirubin Alkaline Phosphatase Albumin C-Reactive Protein Cpkps-4-Ijqmidbxk PEP Interpretation Lipase PTH Intact Arterial Blood Glucose Urine WBC (Auto) Urine Creatinine Urine Total Protein ZINA Screen Crossmatch 03/09/20 03/09/20 03/09/20 04:00 07:53 18:22 WBC 21.9 H Hgb 7.5 L RBC 3.27 L Hct 24.3 L MCV 74 L MCH 23 L RDW 20.9 H Plt Count 488 H Lymph % (Auto) Lymph # [place] % (Auto) [place] # Lymph # (Auto) [place] # (Auto) Seg Neutrophils % Seg Neutrophils # Seg Neuts % (Manual) Lymphocytes % (Manual) Nucleated RBC % Seg Neutrophils # Man Lymphocytes # (Manual) Monocytes # (Manual) Eosinophils # (Manual) Basophils # (Manual) ABG pH POC ABG pCO2 POC ABG pO2 ABG pO2 ABG HCO3 ABG O2 Saturation ABG Base Excess ABG Hemoglobin ABG Oxyhemoglobin ABG Sodium ABG Glucose Oxyhemoglobin Sodium Potassium Chloride 92.8 L Carbon Dioxide BUN 74 H Creatinine 7.8 H Glucose POC Glucose 114 H Calcium Phosphorus Magnesium Direct Bilirubin Alkaline Phosphatase Albumin C-Reactive Protein Kyeul-8-Azrhkezct PEP Interpretation Lipase PTH Intact Arterial Blood Glucose Urine WBC (Auto) Urine Creatinine Urine Total Protein ZINA Screen Crossmatch 03/10/20 03/10/20 03/10/20 04:37 04:37 09:53 WBC 16.0 H Hgb 7.1 L RBC 2.99 L Hct 22.4 L MCV 75 L MCH 24 L RDW 21.5 H Plt Count Lymph % (Auto) 9.2 L Lymph # [place] % (Auto) 9.9 H [place] # Lymph # (Auto) [place] # (Auto) 1.6 H Seg Neutrophils % 79.2 H Seg Neutrophils # 12.6 H Seg Neuts % (Manual) Lymphocytes % (Manual) Nucleated RBC % Seg Neutrophils # Man Lymphocytes # (Manual) Monocytes # (Manual) Eosinophils # (Manual) Basophils # (Manual) ABG pH POC ABG pCO2 POC ABG pO2 ABG pO2 ABG HCO3 ABG O2 Saturation ABG Base Excess ABG Hemoglobin 7.7 L ABG Oxyhemoglobin ABG Sodium 134.7 L ABG Glucose 103 H Oxyhemoglobin Sodium Potassium Chloride Carbon Dioxide BUN 45 H Creatinine 5.6 H Glucose 108 H POC Glucose Calcium Phosphorus Magnesium Direct Bilirubin Alkaline Phosphatase Albumin C-Reactive Protein Synzs-4-Zpsitmkxl PEP Interpretation Lipase PTH Intact Arterial Blood Glucose 103 H Urine WBC (Auto) Urine Creatinine Urine Total Protein ZINA Screen Crossmatch Allied health notes reviewed: RT
--- NOTE | 2020-03-10 15:17 | Gastroenterology Progress Note ---
Assessment and Plan (1) Acute pancreatitis - - unclear etiology for pancreatitis. 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 No bile duct dilation noted on imaging. H/o alcohol use. - multi-organ failure. - on HD. - CT noncontrast on 03/05 with worsening inflammation but no necrosis. - persistent recurrent fever. - wbc trending down. - extubated today, 03/10/2020. Rec - cont with supportive care - nutrition via [place]. if pass with speech therapy, ok to start clear liquids. - may need MRCP at some point in the future but no need urgently. - ID on board. currently on meropenem. . (2) Altered mental status - extubated and alert today. - will follow. Subjective Date of service: 03/10/20 Principal diagnosis: HTNsive urgency; Morbid obesity; Ac. pancreatitis; Abdominal pain Interval history: Patient extubated today. Failed bedside swallow test and speech consult. No abdominal pain. Objective - Constitutional Vitals: Temp Pulse Resp BP Pulse Ox 99.8 F H 107 H 30 H 134/85 98 03/10/20 12:00 03/10/20 15:00 03/10/20 15:00 03/10/20 15:00 03/10/20 15:00 General appearance: no acute distress - EENT ENT: hearing intact - Respiratory Respiratory effort: normal - Cardiovascular Rhythm: regular Heart Sounds: Present: S1 & S2 - Gastrointestinal General gastrointestinal: Present: soft, non-tender, non-distended - Labs CBC & Chem 7: 03/10/20 04:37 03/10/20 04:37 Labs: Laboratory Results - last 24 hr 03/09/20 03/09/20 03/10/20 09:12 18:22 00:10 WBC RBC Hgb Hct MCV MCH MCHC RDW Plt Count Lymph % (Auto) [place] % (Auto) Eos % (Auto) Baso % (Auto) Lymph # (Auto) [place] # (Auto) Eos # (Auto) Baso # (Auto) Seg Neutrophils % Seg Neutrophils # ABG pH POC ABG pCO2 POC ABG pO2 POC ABG HCO3 POC ABG Base Excess ABG Hemoglobin ABG Sodium ABG Potassium ABG Chloride ABG Glucose FiO2 Sodium Potassium Chloride Carbon Dioxide Anion Gap BUN Creatinine Estimated GFR BUN/Creatinine Ratio Glucose POC Glucose 114 H 101 Calcium Arterial Blood Glucose Arterial Blood Ionized Calcium Coronavirus (PCR) Negative 03/10/20 03/10/20 03/10/20 04:37 04:37 05:35 WBC 16.0 H RBC 2.99 L Hgb 7.1 L Hct 22.4 L MCV 75 L MCH 24 L MCHC 32 RDW 21.5 H Plt Count 428 Lymph % (Auto) 9.2 L [place] % (Auto) 9.9 H Eos % (Auto) 1.3 Baso % (Auto) 0.4 Lymph # (Auto) 1.5 [place] # (Auto) 1.6 H Eos # (Auto) 0.2 Baso # (Auto) 0.1 Seg Neutrophils % 79.2 H Seg Neutrophils # 12.6 H ABG pH POC ABG pCO2 POC ABG pO2 POC ABG HCO3 POC ABG Base Excess ABG Hemoglobin ABG Sodium ABG Potassium ABG Chloride ABG Glucose FiO2 Sodium 141 Potassium 4.2 Chloride 98.9 Carbon Dioxide 28 Anion Gap 18 BUN 45 H Creatinine 5.6 H Estimated GFR 10 BUN/Creatinine Ratio 8 Glucose 108 H POC Glucose 99 Calcium 9.1 Arterial Blood Glucose Arterial Blood Ionized Calcium Coronavirus (PCR) 03/10/20 03/10/20 09:53 11:52 WBC RBC Hgb Hct MCV MCH MCHC RDW Plt Count Lymph % (Auto) [place] % (Auto) Eos % (Auto) Baso % (Auto) Lymph # (Auto) [place] # (Auto) Eos # (Auto) Baso # (Auto) Seg Neutrophils % Seg Neutrophils # ABG pH 7.400 POC ABG pCO2 43.9 POC ABG pO2 86.7 POC ABG HCO3 26.6 POC ABG Base Excess 1.6 ABG Hemoglobin 7.7 L ABG Sodium 134.7 L ABG Potassium 3.7 ABG Chloride 101.0 ABG Glucose 103 H FiO2 30.0 Sodium Potassium Chloride Carbon Dioxide Anion Gap BUN Creatinine Estimated GFR BUN/Creatinine Ratio Glucose POC Glucose 99 Calcium Arterial Blood Glucose 103 H Arterial Blood Ionized Calcium 4.8 Coronavirus (PCR)
[2020-03-10] MEDS: MEROPENEM/NS 1 GRAM/100 ML 1 GRAM/100 ML BAG IV SCH (17:01)
[2020-03-10] MEDS: LORazepam 2 MG/ML VIAL IV PRN ×2 (19:37→23:59)
[2020-03-10] MEDS: QUEtiapine 200 MG TAB PO SCH (21:09)
[2020-03-11] MEDS ORDERED: MORPHINE 2 MG/1 ML INJ IV ONE ×3 (01:08→03:59)
[2020-03-11] MEDS ORDERED: LORazepam 2 MG/ML VIAL IV ONE ×2 (01:42→02:52)
[2020-03-11] MEDS: IPRATROPIUM/ALBUTEROL SULFATE 3 ML AMPUL.NEB IH SCH ×4 (04:24→20:33)
[2020-03-11 04:53] LABS: Hemoglobin 7.8 gm/dl (10.1-14.3); Mean Corpuscular HGB Conc 31 % (30-34); Mean Corpuscular Volume 75 fl (79-97); Platelet Count 553 K/mm3 (140-440); Red Blood Count 3.32 M/mm3 (3.65-5.03)
[2020-03-11 04:54] LABS: Red Cell Distribution Width 21.4 % (13.2-15.2)
[2020-03-11 05:08] LABS: Albumin 2.7 g/dL (3.9-5)
--- NOTE | 2020-03-11 05:13 | Event Note ---
Date: 03/11/20 Called by nursing staff and informed that patient was complaining of chest pain. Stat troponin and EKG were ordered. Initial troponin was elevated. Will trend cardiac enzymes. Patient placed on aspirin ,morphine and sublingual nitroglycerin. We will start heparin drip Consult has been placed to cardiology for evaluation.
[2020-03-11] MEDS ORDERED: HEPARIN 10,000 UNITS/10 ML VIAL IV ONE (05:14)
[2020-03-11] MEDS ORDERED: NITROGLYCERIN 0.4 MG TAB SUBL SL PRN (05:14)
[2020-03-11] MEDS: LORazepam 2 MG/ML VIAL IV PRN (05:25)
[2020-03-11] MEDS ORDERED: ROCURONIUM 50 MG/5 ML INJ IV ONE (05:35)
[2020-03-11] MEDS ORDERED: ETOMIDATE 20 MG/10 ML INJ IV ONE (05:35)
[2020-03-11] MEDS ORDERED: SUCCINYLCHOLINE CHLORIDE 200 MG/10 ML INJ MDV ONE (05:35)
--- NOTE | 2020-03-11 05:57 | Event Note ---
[facility] intubation note I was requested by hospitalist to intubate the patient secondary to impending respiratory failure. Intubation note Consent was unobtainable due to patient condition Preoxygenation with 100% oxygen Patient was sedated with etomidate 10 mg IV Patient was paralyzed with succinylcholine 100 mg IV A size 7.0 mm ET tube was inserted orally on second attempt There was symmetric chest rise and bilateral breath sounds post intubation A CO2 indicator was used for confirmation and resulted in positive CO2 return Pulse oximetry post intubation was 100% ET tube was taped at 21 cm at the lips Discussed with Dr. Jay- he will order and follow-up 1 chest x-ray The patient tolerated the procedure well There were no complications
[2020-03-11] MEDS ORDERED: HEPARIN/ 0.45% NACL DRIP 25,000 UNIT/500 ML BAG IV SCH (06:00)
[2020-03-11] MEDS ORDERED: LIP THERAPY VASELINE TP PRN (06:01)
[2020-03-11] MEDS ORDERED: fentaNYL 100 MCG/2 ML INJ IV PRN (06:01)
[2020-03-11] MEDS ORDERED: MINERAL OIL/PETROLATUM, WHITE OPHTH OINT 3.5 GM OU PRN (06:01)
[2020-03-11 06:09] LABS: Anisocytosis 1+; Band Neutrophils # (Manual) 0.2 K/mm3; Hypochromasia 1+; Total Cells Counted 100
[2020-03-11 06:10] LABS: Ovalocytes Few; Platelet Estimate Consistent w Auto; Tear Drop Cells Rare
--- NOTE | 2020-03-11 06:26 | Event Note ---
Date: 03/11/20 Patient was said to have taken off her BiPAP went into respiratory distress. She was having increased work of breathing with impending respiratory failure. Patient was subsequently intubated by emergency room physician. We will follow-up on chest x-ray and EKG.
--- NOTE | 2020-03-11 06:39 | XRay Report ---
CHEST 1 VIEW INDICATION: pt intubated, ETT confirmation COMPARISON: 03/09/2020 FINDINGS: Support devices: Endotracheal tube is in good position. Right jugular line projected over the superio r vena cava. Heart: Upper limits of normal, unchanged. Lungs/Pleura: No acute pulmonary or pleural findings. IMPRESSION: 1. No acute disease and no interval change. Endotracheal tube in good position. Signer Name: Danny Lopez MD Signed: 03/11/2020 6:34 AM Workstation Name: [id number]
[2020-03-11 07:38] LABS: ABG HCO3 24.2 mmol/L (20.0-26.0); ABG Methemoglobin 0.1 % (0.0-1.5); ABG PCO2 38.1 mm Hg; ABG PH 7.421 pH Units (7.350-7.450); ABG PO2 67.8 mm Hg (80.0-90.0)
--- NOTE | 2020-03-11 08:12 | Progress Note ---
Assessment and Plan Assessment and plan: --Ac.hypoxic resp. failure /reintubated this morning[03/11/20] Due to acute hypoxic respiratory failure early this morning continue ventilatory support, pulmonary critical following Wean as tolerated and extubate --Acute hypoxic resp failure; intubated 02/29/20/extubated 03/10/20 patient was on BiPAP postextubation, patient fully pulled off BiPAP Early this morning patient went into acute respiratory failure Covering hospitalist evaluated and patient was re-intubated by ER physician last night. --Chest pain/positive troponins;NSTEMI 2 Probably nonspecific , patient has acute kidney injury on dialysis continue current med management, follow serial cardiac enzymes, follow cardiology evaluation and recommendation EF 60-65% on ECHO --JUANIS/worsening renal function Worsening renal function, Initiated hemodialysis 03/03/2020. Hemodialysis per nephrology --Severe sepsis secondary to pneumonia and pancreatitis; Worsening bibasilar opacities on chest x-ray leukocytosis, tachycardia, tachypnea, fever, infiltrate on chest x-ray. Continue meropenem, follow cultures, ID following -- Acute severe pancreatitis Initial non-contrasted CT showed no evidence of necrosis or pseudocyst or abscess formation. Repeat CT 03/05 with interval worsening of acute pancreatitis without clear evidence of necrosis with increased jessica-pancreatic fat stranding and disorganized fluid, GI following -- Bilateral pleural effusions. Etiology secondary to above Compressive atelectasis --Anemia; hemoglobin low stable monitor H&H and transfused total 2 units PRBC Transfuse additional as needed --Severe metabolic encephalopathy Probably secondary alcohol withdrawal symptoms Treat the underlying cause,[facility] protocol, supportive care --Alcohol withdrawal closely monitor , Ativan as needed Continue CIWA protocol --Worsening leukocytosis Secondary to sepsis due to bibasilar pneumonia, acute pancreatitis, ID and GI following -- Hypertensive emergency POA s/p Cardene drip, closely monitor Blood pressures uncontrolled IV labetalol, PRN --Severe metabolic acidosis; Management per nephrology --Severe protein calorie malnutrition and hypoalbuminemia Nutrition supplements, nutrition consult and supportive care --Medical noncompliance Patient was counseled upon admission. -- DVT prophylaxis Patient placed on subcutaneous heparin. --Obesity; BMI 37.9 patient needs weight reduction when medically stable. -- Full code status Follow GI and pulmonary evaluation and recommendations We will closely monitor the patient and adjust the management as needed Closely monitor the patient and adjust management as needed. Patient is critically ill with multiple medical problems Prognosis poor, family aware 03/03; patient had worsening renal function, considering Vas-Cath placement and initiating hemodialysis Patient is critically ill with multiple organ involvement, family aware 03/04; patient remains critically ill on vent, initiated dialysis, poor prognosis multiorgan involvement Java Application Engineer recommendations noted and appreciated 03/07/2020. Patient remains critically ill on mechanical ventilation AC mode rate 20, tidal volume 450, FiO2 30% with a PEEP of 6. Patient with multiorgan failure. Continue hemodialysis per nephrology. GI believes patient may need MRCP at some point in the future but no need urgently. Continue fentanyl drip for sedation and wean as tolerated. Patient currently with meropenem/ID following. 03/08/2020. Patient remains critically ill on mechanical ventilation AC mode rate 20, tidal volume 450, FiO2 30% with a PEEP of 6. Continue IV meropenem per ID recommendations. Persistent fevers likely associated to acute severe pancreatitis. Creatinine 1.5 in September 2019, may have underlying CKD. Creatinine has worsened from 1.7->3.0->3.1->3.4->4.2->4.7->5.6->5.0> 6.2 since admission. Status post Vas-Cath placement on 03/03/2020 and initiation of dialysis. 03/09/2020. Patient currently with PSV trials FiO2 30% 03/10. JUANIS in setting of hypertensive urgency and pre-renal injury from pancreatitis. Urine output has declined but patient did have approximately 400 cc noted on bladder scan. Straight cath for now. Nephrology following. Blood pressure much better controlled.Continue IV meropenem renally dosed per ID recommendations.Persistent fevers likely secondary to severe pancreatitis. Follow-up cultures from 03/06/2020. 03/10; patient is on weaning parameters, extubated . On BiPAP 03/11; last night and early this morning events noted, patient went into acute respiratory failure requiring intubation and mechanical ventilation Also had chest pain and positive troponins, covering hospitalist consulted cardiology The high probability of a clinically significant, sudden or life threatening deterioration of the [GI, CVS, renal, respiratory and metabolic] system(s) required my full and direct attention, intervention and personal management. The aggregate critical care time was [35] minutes. This time is in addition to time spent performing reported procedures but includes the following: [x] Data Review and interpretation [x] Patient assessment and monitoring of vital signs [x] Documentation [x] Medication orders and management History Interval history: I have seen and examined the patient at the bedside Patient's chart and medications reviewed Overnight events reviewed Patient went into acute respiratory failure requiring intubation and ventilatory support Vital signs noted Hospitalist Physical - Constitutional Vitals: Temp Pulse Resp BP Pulse Ox 99.0 F 94 H 24 158/95 99 03/11/20 04:01 03/11/20 06:31 03/11/20 06:31 03/11/20 06:31 03/11/20 06:31 General appearance: Present: mild distress, well-nourished, obese, other (Intubated on mechanical ventilation) - EENT Eyes: Present: PERRL, EOM intact - Neck Neck: Present: supple, normal ROM - Respiratory Respiratory effort: normal Respiratory: bilateral: diminished, negative: rales, rhonchi, wheezing - Cardiovascular Rhythm: regular Heart Sounds: Present: S1 & S2 - Extremities Extremities: no ischemia, No edema - Abdominal General gastrointestinal: soft, non-tender, non-distended, normal bowel sounds - Integumentary Integumentary: Present: clear, warm - Psychiatric Psychiatric: other (Intubated on vent) - Neurologic Neurologic: other (Intubated on vent) HEART Score - HEART Score Troponin: Troponin T 0.093 ng/mL (0.00-0.029) H 03/11/20 02:52 Results - Labs CBC & Chem 7: 03/11/20 07:31 03/11/20 04:32 Labs: Laboratory Last Values WBC 22.4 K/mm3 (4.5-11.0) H 03/11/20 04:32 RBC 3.32 M/mm3 (3.65-5.03) L 03/11/20 04:32 Hgb 7.8 gm/dl (10.1-14.3) L 03/11/20 04:32 Hct 25.0 % (30.3-42.9) L 03/11/20 04:32 MCV 75 fl (79-97) L 03/11/20 04:32 MCH 24 pg (28-32) L 03/11/20 04:32 MCHC 31 % (30-34) 03/11/20 04:32 RDW 21.4 % (13.2-15.2) H 03/11/20 04:32 Plt Count 553 K/mm3 (140-440) H 03/11/20 04:32 Lymph % (Auto) 9.2 % (13.4-35.0) L 03/10/20 04:37 [place] % (Auto) 9.9 % (0.0-7.3) H 03/10/20 04:37 Eos % (Auto) 1.3 % (0.0-4.3) 03/10/20 04:37 Baso % (Auto) 0.4 % (0.0-1.8) 03/10/20 04:37 Lymph # (Auto) 1.5 K/mm3 (1.2-5.4) 03/10/20 04:37 [place] # (Auto) 1.6 K/mm3 (0.0-0.8) H 03/10/20 04:37 Eos # (Auto) 0.2 K/mm3 (0.0-0.4) 03/10/20 04:37 Baso # (Auto) 0.1 K/mm3 (0.0-0.1) 03/10/20 04:37 Add Manual Diff Complete 03/11/20 04:32 Total Counted 100 03/11/20 04:32 Seg Neutrophils % 79.2 % (40.0-70.0) H 03/10/20 04:37 Seg Neuts % (Manual) 81.0 % (40.0-70.0) H 03/11/20 04:32 Band Neutrophils % 1.0 % 03/11/20 04:32 Lymphocytes % (Manual) 8.0 % (13.4-35.0) L 03/11/20 04:32 Reactive Lymphs % (Man) 0 % 03/11/20 04:32 Monocytes % (Manual) 8.0 % (0.0-7.3) H 03/11/20 04:32 Eosinophils % (Manual) 1.0 % (0.0-4.3) 03/11/20 04:32 Basophils % (Manual) 1.0 % (0.0-1.8) 03/11/20 04:32 Metamyelocytes % 0 % 03/11/20 04:32 Myelocytes % 0 % 03/11/20 04:32 Promyelocytes % 0 % 03/11/20 04:32 Blast Cells % 0 % 03/11/20 04:32 Nucleated RBC % Not Reportable 03/11/20 04:32 Seg Neutrophils # 12.6 K/mm3 (1.8-7.7) H 03/10/20 04:37 Seg Neutrophils # Man 18.1 K/mm3 (1.8-7.7) H 03/11/20 04:32 Band Neutrophils # 0.2 K/mm3 03/11/20 04:32 Lymphocytes # (Manual) 1.8 K/mm3 (1.2-5.4) 03/11/20 04:32 Abs React Lymphs (Man) 0.0 K/mm3 03/11/20 04:32 Monocytes # (Manual) 1.8 K/mm3 (0.0-0.8) H 03/11/20 04:32 Eosinophils # (Manual) 0.2 K/mm3 (0.0-0.4) 03/11/20 04:32 Basophils # (Manual) 0.2 K/mm3 (0.0-0.1) H 03/11/20 04:32 Metamyelocytes # 0.0 K/mm3 03/11/20 04:32 Myelocytes # 0.0 K/mm3 03/11/20 04:32 Promyelocytes # 0.0 K/mm3 03/11/20 04:32 Blast Cells # 0.0 K/mm3 03/11/20 04:32 WBC Morphology Not Reportable 03/11/20 04:32 Hypersegmented Neuts Not Reportable 03/11/20 04:32 Hyposegmented Neuts Not Reportable 03/11/20 04:32 Hypogranular Neuts Not Reportable 03/11/20 04:32 Smudge Cells Not Reportable 03/11/20 04:32 Toxic Granulation Not Reportable 03/11/20 04:32 Toxic Vacuolation Not Reportable 03/11/20 04:32 Dohle Bodies Not Reportable 03/11/20 04:32 Pelger-Huet Anomaly Not Reportable 03/11/20 04:32 Maia Rods Not Reportable 03/11/20 04:32 Platelet Estimate Consistent w auto 03/11/20 04:32 Clumped Platelets Not Reportable 03/11/20 04:32 Plt Clumps, EDTA Not Reportable 03/11/20 04:32 Large Platelets Not Reportable 03/11/20 04:32 Giant Platelets Not Reportable 03/11/20 04:32 Platelet Satelliting Not Reportable 03/11/20 04:32 Plt Morphology Comment Not Reportable 03/11/20 04:32 RBC Morphology Not Reportable 03/11/20 04:32 Dimorphic RBCs Not Reportable 03/11/20 04:32 Polychromasia Not Reportable 03/11/20 04:32 Hypochromasia 1+ 03/11/20 04:32 Poikilocytosis Not Reportable 03/11/20 04:32 Anisocytosis 1+ 03/11/20 04:32 Microcytosis Not Reportable 03/11/20 04:32 Macrocytosis Not Reportable 03/11/20 04:32 Spherocytes Not Reportable 03/11/20 04:32 Pappenheimer Bodies Not Reportable 03/11/20 04:32 Sickle Cells Not Reportable 03/11/20 04:32 Target Cells Not Reportable 03/11/20 04:32 Tear Drop Cells Rare 03/11/20 04:32 Ovalocytes Few 03/11/20 04:32 Helmet Cells Not Reportable 03/11/20 04:32 Jackson-Success Bodies Not Reportable 03/11/20 04:32 [place]bank Rings Not Reportable 03/11/20 04:32 Mirna Cells Not Reportable 03/11/20 04:32 Bite Cells Not Reportable 03/11/20 04:32 Crenated Cell Not Reportable 03/11/20 04:32 Elliptocytes Not Reportable 03/11/20 04:32 Acanthocytes (Spur) Not Reportable 03/11/20 04:32 Rouleaux Not Reportable 03/11/20 04:32 Hemoglobin C Crystals Not Reportable 03/11/20 04:32 Schistocytes Not Reportable 03/11/20 04:32 Malaria parasites Not Reportable 03/11/20 04:32 Edgardo Bodies Not Reportable 03/11/20 04:32 Hem Pathologist Commnt No 03/11/20 04:32 PT 13.7 Sec. (12.2-14.9) 02/25/20 03:49 INR 1.03 (0.87-1.13) 02/25/20 03:49 ABG pH 7.421 pH Units (7.350-7.450) 03/11/20 06:50 POC ABG pCO2 46.6 mmHg (32.0-48.0) 03/11/20 03:25 ABG pCO2 38.1 mm Hg 03/11/20 06:50 POC ABG pO2 77.5 mmHg (83-108) L 03/11/20 03:25 ABG pO2 67.8 mm Hg (80.0-90.0) L 03/11/20 06:50 POC ABG HCO3 24.9 03/11/20 03:25 ABG HCO3 24.2 mmol/L (20.0-26.0) 03/11/20 06:50 ABG O2 Saturation 98.0 % (95.0-99.0) 03/11/20 06:50 ABG O2 Content 20.2 (0.0-44) 03/11/20 06:50 POC ABG Base Excess -0.9 03/11/20 03:25 ABG Base Excess 0.0 mmol/L (-2.0-3.0) 03/11/20 06:50 ABG Hemoglobin 8.0 (12.0-17.5) L 03/11/20 03:25 ABG Oxyhemoglobin 90.5 (94-98) L 03/06/20 04:41 ABG Carboxyhemoglobin 2.2 % (0.0-5.0) 03/11/20 06:50 ABG Methemoglobin 0.1 % (0.0-1.5) 03/11/20 06:50 ABG Sodium 135.8 mmol/L (136.0-145.0) L 03/11/20 03:25 ABG Potassium 3.7 mmol/L (3.40-4.50) 03/11/20 03:25 ABG Chloride 101.0 mmol/L (98-107) 03/11/20 03:25 ABG Glucose 95 mg/dL (65-95) 03/11/20 03:25 Oxyhemoglobin 95.8 % (95.0-99.0) 03/11/20 06:50 Carboxyhemoglobin 1 (0.5-1.5) 03/06/20 04:41 FiO2 40 % 03/11/20 06:50 Sodium 141 mmol/L (137-145) 03/11/20 04:32 Potassium 4.3 mmol/L (3.6-5.0) 03/11/20 04:32 Chloride 96.6 mmol/L (98-107) L 03/11/20 04:32 Carbon Dioxide 23 mmol/L (22-30) 03/11/20 04:32 Anion Gap 26 mmol/L 03/11/20 04:32 BUN 64 mg/dL (7-17) H 03/11/20 04:32 Creatinine 6.5 mg/dL (0.6-1.2) H 03/11/20 04:32 Estimated GFR 9 ml/min 03/11/20 04:32 BUN/Creatinine Ratio 10 % 03/11/20 04:32 Glucose 101 mg/dL (65-100) H 03/11/20 04:32 POC Glucose 142 (70-105) H 03/11/20 06:16 Lactic Acid 0.90 mmol/L (0.7-2.0) 02/27/20 19:33 Calcium 10.0 mg/dL (8.4-10.2) 03/11/20 04:32 Phosphorus 6.10 mg/dL (2.5-4.5) H 03/01/20 04:37 Magnesium 2.00 mg/dL (1.7-2.3) 03/07/20 05:03 Total Bilirubin 0.30 mg/dL (0.1-1.2) 03/11/20 04:32 Direct Bilirubin 0.6 mg/dL (0-0.2) H 03/05/20 06:00 Indirect Bilirubin 0.3 mg/dL 03/05/20 06:00 AST 41 units/L (5-40) H 03/11/20 04:32 ALT 17 units/L (7-56) 03/11/20 04:32 Alkaline Phosphatase 103 units/L (35-129) 03/11/20 04:32 Troponin T 0.093 ng/mL (0.00-0.029) H 03/11/20 02:52 C-Reactive Protein 36.50 mg/dL (0.00-1.30) H 03/01/20 11:06 Serum Total Protein 6.3 g/dL (6.1-8.1) 02/26/20 04:39 Total Protein 7.8 g/dL (6.3-8.2) 03/11/20 04:32 Albumin 2.7 g/dL (3.9-5) L 03/11/20 04:32 Albumin/Globulin Ratio 0.5 % 03/11/20 04:32 Roptm-1-Kzmotmnhe 0.7 g/dL (0.2-0.3) H 02/26/20 04:39 Dhvvi-5-Xnwxzvcet 0.8 g/dL (0.5-0.9) 02/26/20 04:39 Beta Globulins 0.4 g/dL (0.2-0.5) 02/26/20 04:39 Gamma Globulins 1.2 g/dL (0.8-1.7) 02/26/20 04:39 Abnorm Protein Band 1 see below 02/26/20 04:39 PEP Interpretation see below H 02/26/20 04:39 Triglycerides 118 mg/dL (2-149) 02/26/20 04:39 Lipase 72 units/L (13-60) H 03/04/20 19:00 HCG, Qual Negative (Negative) 02/24/20 02:53 PTH Intact 911.3 pg/mL (15-65) H 02/26/20 08:15 Arterial Blood Glucose 95 mg/dL (65-95) 03/11/20 03:25 Arterial Blood Ionized Calcium 4.9 mg/dL (4.6-5.3) 03/11/20 03:25 Urine Color Yellow (Yellow) 02/24/20 Unknown Urine Turbidity Clear (Clear) 02/24/20 Unknown Urine pH 6.0 (5.0-7.0) 02/24/20 Unknown Ur Specific Farnam 1.020 (1.003-1.030) 02/24/20 Unknown Urine Protein >500 mg/dL (Negative) 02/24/20 Unknown Urine Glucose (UA) 50 mg/dL (Negative) 02/24/20 Unknown Urine Ketones Neg mg/dL (Negative) 02/24/20 Unknown Urine Blood Lg (Negative) 02/24/20 Unknown Urine Nitrite Neg (Negative) 02/24/20 Unknown Urine Bilirubin Neg (Negative) 02/24/20 Unknown Urine Urobilinogen < 2.0 mg/dL (<2.0) 02/24/20 Unknown Ur Leukocyte Esterase Neg (Negative) 02/24/20 Unknown Urine WBC (Auto) 11.0 /HPF (0.0-6.0) H 02/24/20 Unknown Urine RBC (Auto) 149.0 /HPF (0.0-6.0) 02/24/20 Unknown U Epithel Cells (Auto) 5.0 /HPF (0-13.0) 02/24/20 Unknown Urine Bacteria (Auto) 1+ /HPF (Negative) 02/24/20 Unknown Urine Mucus Few /HPF 02/24/20 Unknown Urine Creatinine 161.0 mg/dL (0.1-20.0) H 02/25/20 22:55 Protein/Creatinin Ratio 0.93 02/25/20 22:55 Urine Total Protein 150 mg/dL (5-11.8) H 02/25/20 22:55 ZINA Screen Positive (Negative) H 02/26/20 04:39 Proteinase 3 (PR3) Ab <1.0 AI (<1.0) 02/26/20 04:39 Myeloperoxidase Ab <1.0 AI (<1.0) 02/26/20 04:39 Complement C3 153 mg/dL (83-193) 02/26/20 04:39 Complement C4 35 mg/dL (15-57) 02/26/20 04:39 Coronavirus (PCR) Negative (Negative) 03/09/20 09:12 Hepatitis A IgM Ab Non-reactive (NonReactive) 03/03/20 12:34 Hep Bs Antigen Non-reactive (Negative) 03/03/20 12:34 Hep B Core IgM Ab Non-reactive (NonReactive) 03/03/20 12:34 Hepatitis C Antibody Non-reactive (NonReactive) 03/03/20 12:34 Blood Type AB POSITIVE 03/01/20 18:30 Antibody Screen Negative 03/01/20 18:30 Crossmatch See Detail 03/01/20 18:30 Microbiology: Microbiology 03/06/20 18:18 Peripheral/Venous Blood Culture - Preliminary NO GROWTH AFTER 4 DAYS 03/07/20 Unknown Tracheal Aspirate Sputum Culture - Final Ana Luisa Albicans - Diagnostic Impressions Diagnostic Impressions: Echocardiogram 02/26/20 09:11 Transthoracic Echocardiogram Indication: Cardiomegaly BP: 149/92 HR: 122 Conclusions *Global left ventricular systolic function is normal. *The estimated ejection fraction is 60-65%. *Moderate to severe concentric left ventricular hypertrophy is observed. *The left atrium is mild to moderately dilated. *The aortic valve leaflets are moderately thickened. *A mean gradient of 22.39 mmHg across the outflow tract is likely not due to but hyperdynamic flow and LVH. *There is trace tricuspid regurgitation. Findings Left Ventricle: The left ventricular chamber size is normal. Moderate to severe concentric left ventricular hypertrophy is observed. Global left ventricular systolic function is normal. The estimated ejection fraction is 60-65%. Left Atrium: The left atrium is mild to moderately dilated. Right Ventricle: The right ventricular cavity size is normal. The right ventricular global systolic function is normal. Right Atrium: The right atrial cavity size is normal. Aortic Valve: The aortic valve leaflets are moderately thickened. There is no evidence of aortic regurgitation. The mean gradient of the aortic valve is 22.39 mmHg. Mitral Valve: The mitral valve leaflets are mildly thickened. There is trace of mitral regurgitation. There is no evidence of mitral stenosis. Tricuspid Valve: There is trace tricuspid regurgitation. No pulmonary hypertension is noted. Pulmonic Valve: There is trace pulmonic regurgitation. Pericardium: There is no pericardial effusion. Aorta: There is no dilatation of the ascending aorta. There is no dilatation of the aortic root. Venous: The inferior vena cava appears normal in size. Measurements Chambers 2D Name Value Normal Range IVSd (2D) 1.8 cm (0.6 - 1.1) LVPWd (2D) 1.74 cm (0.6 - 1.1) LVIDd (2D) 4.57 cm (3.7 - 5.6) LVIDs (2D) 2.73 cm (2 - 3.8) LV FS (2D) 40.27 % - EF Teichholz (2D) 71.04 % - Ao root diameter (2D) 2.79 cm (2 - 3.7) Volumes/Mass Name Value Normal Range LA ESV SP 4CH (A/L) 54.18 ml - LA ESV SP 2CH (A/L) 61.84 ml - LA ESV BP (A/L) 58.1 ml - LA ESV BP (A/L) index 30.74 ml/m2 - LA ESV SP 4CH (MOD) 52.89 ml - LA ESV SP 2CH (MOD) 60.65 ml - LA ESV BP (MOD) 56.77 ml - LA ESV BP (MOD) index 30.04 ml/m2 - LV EDV SP 4CH (MOD) 164.2 ml - LV ESV SP 4CH (MOD) 58.04 ml - EF SP 4CH (MOD) 64.65 % - Diastolic/Systolic Function Name Value Normal Range MV E-wave Vmax 1.38 m/sec - MV deceleration time 92.78 msec - MV A-wave Vmax 1.44 m/sec - MV E:A ratio 0.95 ratio - Aortic Valve Name Value Normal Range AV Vmax 3.08 m/sec - AV VTI 36.74 cm - AV peak gradient 37.98 mmHg - AV mean gradient 22.39 mmHg - LVOT diameter 2.01 cm - LVOT Vmax 2.45 m/sec - LVOT VTI 29.85 cm - LVOT peak gradient 24.04 mmHg - LVOT mean gradient 11.11 mmHg - SV LVOT 94.73 ml - JADA (continuity Vmax) 2.52 cm2 - JADA (continuity VTI) 2.58 cm2 - Ascending Ao 2.64 cm - Mitral Valve Name Value Normal Range MV PHT 37.88 msec - MVA (PHT) 5.81 cm2 - Tricuspid Valve Name Value Normal Range IVC diameter 1.93 cm (1.2 - 2.3) Pulmonic Valve/Qp:Qs Name Value Normal Range PV Vmax 2.83 m/sec - PV VTI 45.88 cm - PV peak gradient 32.06 mmHg - PV mean gradient 16.11 mmHg - OH end-diastolic Vmax 0.81 m/sec - RVOT Vmax 1.82 m/sec - RVOT VTI 25.12 cm - RVOT peak gradient 13.3 mmHg - Franks/IV: Voiding Method Incontinent IV Catheter Type [Right VAS Cath Internal Jugular] IV Catheter Type [Left Upper INT / Saline Lock arm] IV Catheter Type [Right Upper INT / Saline Lock arm] IV Catheter Type [Right INT / Saline Lock Forearm] IV Catheter Type [Right Wrist] Peripheral IV IV Catheter Type [Right Peripheral IV Antecubital] Active Medications - Current Medications Current Medications: Generic Name Dose Route Start Last Admin Trade Name Freq PRN Reason Stop Dose Admin Acetaminophen 650 mg 02/26/20 16:23 03/10/20 07:16 Tylenol PO 650 mg Q4H PRN Administration Pain, Mild (1-3)/ Temp >100. Albuterol 2.5 mg 02/27/20 17:55 Proventil IH Q4HRT PRN Shortness Of Breath Albuterol/Ipratropium 1 ampul 02/28/20 12:17 03/11/20 04:24 Duoneb *Not For Prn Use* IH 1 ampul Q6HRT INDU Administration Amlodipine Besylate 10 mg 02/28/20 10:00 03/10/20 09:09 Amlodipine PO 10 mg QDAY INDU Administration Lipase/Protease/Amylase 1 each 03/01/20 08:46 Pancreaze 10,500 Unit FEEDTUBE PRN PRN For Clogged Feeding Tube Aspirin 325 mg 03/11/20 10:00 Ecotrin PO QDAY INDU Dextrose 50 ml 02/29/20 08:00 03/01/20 00:20 D50w (25gm) Syringe IV 10 ml Q30MIN PRN Administration HYPOGLYCEMIA Protocol Fentanyl 50 mcg 03/11/20 06:01 Sublimaze IV Q10MIN PRN ANALGESIA Hydralazine HCl 25 mg 03/04/20 14:00 03/10/20 21:09 Apresoline PO 25 mg Q8HR INDU Administration Hydrophilic Ointment 1 applic 03/11/20 06:01 Vaseline Lip Therapy TP Q2HR PRN Dry Lips MEROPENEM/NS 1 GRAM/100 ML 1 gram in 100 mls @ 100 mls/hr 03/03/20 18:00 03/10/20 17:01 Merrem/Ns 1 Gram/100 Ml IV 100 mls/hr QPM INDU Administration Protocol Sodium Chloride 100 mls @ 999 mls/hr 03/08/20 17:05 Nacl 0.9% IV NIKOLAY PRN Hypotension Heparin Sodium/Sodium Chloride 25,000 unit in 500 mls @ 20 mls/hr 03/11/20 06:00 Heparin/ 0.45% Nacl-25,000 Unit/500 Ml IV TITRATE INDU Protocol 1,000 UNITS/HR Propofol 1,000 mg in 100 mls @ 2.73 mls/hr 03/11/20 07:00 03/11/20 07:34 Diprivan 10 Mg/Ml IV 10 mcg/kg/min TITR INDU 5.46 mls/hr Titration Protocol 5 MCG/KG/MIN Fentanyl Citrate 2,000 mcg in 100 mls @ 4.55 mls/hr 03/11/20 07:00 Fentanyl Drip Premix IV TITR INDU Protocol 1 MCG/KG/HR Labetalol HCl 10 mg 02/28/20 09:00 03/11/20 03:04 Labetalol IV 10 mg Q4H PRN Administration Hypertension Lansoprazole 30 mg 03/06/20 10:00 03/10/20 09:08 Prevacid Solutab FEEDTUBE 30 mg QDAY INDU Administration Lorazepam 1 mg 03/10/20 12:00 03/11/20 05:25 Ativan IV 1 mg Q4H PRN Administration AGITATION Metoprolol Tartrate 25 mg 02/28/20 10:00 03/10/20 21:09 Metoprolol PO 25 mg BID INDU Administration Morphine Sulfate 2 mg 03/11/20 05:13 Morphine IV Q4H PRN Pain, Moderate (4-6) Multi-Ingred Cream/Lotion/Oil/Oint 1 applic 03/11/20 06:01 Artificial Tears Ophth Oint OU Q4HR PRN Dry Eye(s) Nitroglycerin 0.4 mg 03/11/20 05:14 Nitrostat SL .Q5MIN PRN Chest Pain Ondansetron HCl 4 mg 02/24/20 06:45 02/25/20 23:33 Zofran IV 4 mg Q8H PRN Administration Nausea And Vomiting Quetiapine Fumarate 100 mg 03/06/20 10:00 03/10/20 09:08 Seroquel PO 100 mg QAM INDU Administration Quetiapine Fumarate 200 mg 03/06/20 22:00 03/10/20 21:09 Seroquel PO 200 mg QHS INDU Administration Scopolamine 1 each 03/04/20 16:00 03/10/20 09:07 Transderm-Scop TD 1 each Q3D INDU Administration Simple Syrup 15 ml 03/01/20 08:46 Simple Syrup FEEDTUBE PRN PRN Hypoglycemia Simple Syrup 30 ml 03/01/20 08:46 Simple Syrup FEEDTUBE PRN PRN Hypoglycemia Sodium Bicarbonate 325 mg 03/01/20 08:46 Sodium Bicarbonate FEEDTUBE PRN PRN For Clogged Feeding Tube Sodium Chloride 10 ml 02/24/20 10:00 03/10/20 21:28 Sodium Chloride Flush Syringe 10 Ml IV 10 ml BID INDU Administration Sodium Chloride 10 ml 02/24/20 06:45 03/10/20 09:06 Sodium Chloride Flush Syringe 10 Ml IV 10 ml PRN PRN Administration LINE FLUSH Tamsulosin HCl 0.4 mg 03/01/20 17:00 03/10/20 09:09 Flomax PO 0.4 mg QDAY INDU Administration Nutrition/Malnutrition Assess - Dietary Evaluation Nutrition/Malnutrition Findings: Nutrition Notes Start: 02/24/20 13:42 Freq: Status: Active Protocol: Document 03/06/20 13:32 [email or web address] (Rec: 03/06/20 13:41 [email or web address]) Co-Sign 03/06/20 13:32 Nutrition Notes Initial or Follow up Reassessment Current Diagnosis Acute Kidney Injury,Sepsis, Hypertension,Respiratory Failure,Hyperlipidemia Other Pertinent Diagnosis Acute pancreatitis, HD Current Diet Nepro 1.8 at 35ml/hr Labs/Tests BUN 70 Cr 7.1 BG 113 Pertinent Medications Reviewed Height 5 ft 1 in Weight 91 kg [place] Body Weight (kg) 47.72 BMI 37.9 Weight Status Obese Subjective/Other Information F/U for stable TF. Pt TF running at goal rate and tolerating. Percent of energy/protein needs met: 100%/70% Burn Absent Trauma Absent GI Symptoms None Current % PO Negligible Minimum of two criteria No Fluid Accumulation Moderate to Severe (severe) #2 Nutrition Diagnosis Inadequate oral intake Diagnosis Progress(for reassessment Continues documentation) #1 Nutrition Diagnosis Food and nutrition-related knowledge deficit Diagnosis Progress(for reassessment Continues documentation) Is patient on ventilator? Yes Is Patient Ambulatory and/or Out of Bed No REE-([facility]-confined to bed) 1823.604 Kcal/Kg value to use for calculation 16 Approximate Energy Requirements Using 1456 kcal/Kg Calculation Used for Recommendations Kcal/kg Additional Notes Pro: 96g (>2g/kg IBW) Fluid: 1ml/kcal Nutrition Intervention Change Diet Order: Continue TF Nutrition Support: Nepro 1.8 at 35ml/hr Flush 150ml q4h Kcal 1,512 Protein (gm) 68 Fluid (mL) 611 Goal #1 TF tolerance Goal #2 Meet at least 80% of energy and protein needs via TF Anticipated Discharge Needs: Undetermined at this time Follow-Up By: 03/11/20 Additional Comments F/U stable TF
[2020-03-11 08:56] LABS: Hematocrit 23.7 % (30.3-42.9); Hemoglobin 7.7 gm/dl (10.1-14.3)
--- NOTE | 2020-03-11 08:58 | Progress Note ---
Assessment and Plan Assessment * Acute kidney injury attributed to prerenal azotemia/ATN related to pancreatitis vs NSAID induced nephropathy vs PPI --Serologies: ANCA, C3, C4 - negative; ZINA positive * Acute hypoxic respiratory failure * Chest pain --Elevated troponin * Metabolic acidosis * Acute severe pancreatitis * Fever * Accelerated hypertension - resolved * Anemia Plan: * HD today. Continue MWF schedule for now- UF as tolerated * Monitor SCr trend and UOP for evidence of recovery. Await dsDNA * Cardiology consultation pending * Vent management per pulm * Continue antiHTN medications * Abx per ID - currently on Meropenem * GI recommendations reviewed * Hold ACEi for now * Dose medications for renal function * Avoid potential nephrotoxins Subjective Date of service: 03/11/20 Principal diagnosis: HTNsive urgency; Morbid obesity; Ac. pancreatitis; Abdominal pain Interval history: Chart reviewed. Patient was extubated yesterday. Early this AM, patient c/o of chest pain. Subsequently reintubated this AM. Currently, FiO2 30% Objective - Exam Narrative Exam: Exam deferred - XRay in room, NGT insertion in progress - Vital Signs Vital signs: Vital Signs - 12hr 03/10/20 03/10/20 03/10/20 21:00 21:09 21:31 Temperature Pulse Rate 114 H 106 H 108 H Pulse Rate [ Anterior Bilateral Throughout] Pulse Rate [ From Monitor] Respiratory 40 H 28 H Rate Respiratory Rate [Abdomen] Respiratory Rate [Anterior Bilateral Throughout] Blood Pressure 153/95 153/95 153/95 O2 Sat by Pulse 98 98 Oximetry 03/10/20 03/10/20 03/10/20 22:00 22:31 23:00 Temperature Pulse Rate 106 H 107 H 105 H Pulse Rate [ Anterior Bilateral Throughout] Pulse Rate [ From Monitor] Respiratory 42 H 22 37 H Rate Respiratory Rate [Abdomen] Respiratory Rate [Anterior Bilateral Throughout] Blood Pressure 146/86 146/86 137/89 O2 Sat by Pulse 98 97 95 Oximetry 03/10/20 03/10/20 03/10/20 23:29 23:31 23:38 Temperature Pulse Rate 103 H 102 H 102 H Pulse Rate [ Anterior Bilateral Throughout] Pulse Rate [ From Monitor] Respiratory 41 H 39 H 40 H Rate Respiratory Rate [Abdomen] Respiratory Rate [Anterior Bilateral Throughout] Blood Pressure 137/89 137/89 137/89 O2 Sat by Pulse 99 98 99 Oximetry 1003/11/20 03/11/20 00:00 00:31 00:43 Temperature 98.9 F Pulse Rate 101 H 101 H Pulse Rate [ Anterior Bilateral Throughout] Pulse Rate [ 102 H From Monitor] Respiratory 27 H 38 H 48 H Rate Respiratory Rate [Abdomen] Respiratory Rate [Anterior Bilateral Throughout] Blood Pressure 145/85 145/85 O2 Sat by Pulse 99 97 Oximetry 03/11/20 03/11/20 03/11/20 01:00 01:13 01:31 Temperature Pulse Rate 100 H 105 H Pulse Rate [ Anterior Bilateral Throughout] Pulse Rate [ From Monitor] Respiratory 40 H 44 H 43 H Rate Respiratory 32 H Rate [Abdomen] Respiratory Rate [Anterior Bilateral Throughout] Blood Pressure 145/94 145/94 O2 Sat by Pulse 100 100 Oximetry 03/11/20 03/11/20 03/11/20 02:00 02:31 02:58 Temperature Pulse Rate 98 H 105 H Pulse Rate [ Anterior Bilateral Throughout] Pulse Rate [ From Monitor] Respiratory 39 H 44 H 48 H Rate Respiratory 45 H Rate [Abdomen] Respiratory Rate [Anterior Bilateral Throughout] Blood Pressure 147/94 147/94 O2 Sat by Pulse 98 98 Oximetry 03/11/20 03/11/20 03/11/20 03:00 03:04 03:31 Temperature Pulse Rate 111 H 107 H 91 H Pulse Rate [ Anterior Bilateral Throughout] Pulse Rate [ From Monitor] Respiratory 45 H 37 H Rate Respiratory Rate [Abdomen] Respiratory Rate [Anterior Bilateral Throughout] Blood Pressure 155/90 155/90 155/90 O2 Sat by Pulse 99 99 Oximetry 03/11/20 03/11/20 03/11/20 04:00 04:01 04:31 Temperature 99.0 F 99.0 F Pulse Rate 110 H 105 H Pulse Rate [ Anterior Bilateral Throughout] Pulse Rate [ 116 H From Monitor] Respiratory 45 H 43 H Rate Respiratory Rate [Abdomen] Respiratory Rate [Anterior Bilateral Throughout] Blood Pressure 132/76 132/76 O2 Sat by Pulse 98 96 Oximetry 03/11/20 03/11/20 03/11/20 04:51 04:53 05:00 Temperature Pulse Rate 107 H 99 H Pulse Rate [ 107 H Anterior Bilateral Throughout] Pulse Rate [ From Monitor] Respiratory 17 46 H 45 H Rate Respiratory 45 H Rate [Abdomen] Respiratory 25 H Rate [Anterior Bilateral Throughout] Blood Pressure 132/76 152/93 O2 Sat by Pulse 97 98 Oximetry 03/11/20 03/11/20 03/11/20 05:15 05:23 05:31 Temperature Pulse Rate 113 H 109 H Pulse Rate [ Anterior Bilateral Throughout] Pulse Rate [ From Monitor] Respiratory 39 H 45 H 40 H Rate Respiratory Rate [Abdomen] Respiratory Rate [Anterior Bilateral Throughout] Blood Pressure 152/93 152/93 O2 Sat by Pulse 97 94 Oximetry 03/11/20 03/11/20 03/11/20 05:45 06:00 06:12 Temperature Pulse Rate 117 H 101 H 98 H Pulse Rate [ Anterior Bilateral Throughout] Pulse Rate [ From Monitor] Respiratory 20 30 H Rate Respiratory 22 Rate [Abdomen] Respiratory Rate [Anterior Bilateral Throughout] Blood Pressure 152/93 158/95 158/95 O2 Sat by Pulse 81 L 100 99 Oximetry 03/11/20 03/11/20 03/11/20 06:15 06:31 08:00 Temperature 98.8 F Pulse Rate 96 H 94 H Pulse Rate [ Anterior Bilateral Throughout] Pulse Rate [ From Monitor] Respiratory 27 H 24 Rate Respiratory Rate [Abdomen] Respiratory Rate [Anterior Bilateral Throughout] Blood Pressure 158/95 158/95 O2 Sat by Pulse 99 99 Oximetry - Lab 03/11/20 07:31 03/11/20 04:32 Most recent lab results ABG pH 7.421 pH Units (7.350-7.450) 03/11/20 06:50 ABG pCO2 38.1 mm Hg 03/11/20 06:50 ABG pO2 67.8 mm Hg (80.0-90.0) L 03/11/20 06:50 ABG HCO3 24.2 mmol/L (20.0-26.0) 03/11/20 06:50 ABG O2 Saturation 98.0 % (95.0-99.0) 03/11/20 06:50 Calcium 10.0 mg/dL (8.4-10.2) 03/11/20 04:32 Phosphorus 6.10 mg/dL (2.5-4.5) H 03/01/20 04:37 Magnesium 2.00 mg/dL (1.7-2.3) 03/07/20 05:03 Urine Creatinine 161.0 mg/dL (0.1-20.0) H 02/25/20 22:55 Urine Total Protein 150 mg/dL (5-11.8) H 02/25/20 22:55 Medications & Allergies - Medications Allergies/Adverse Reactions: Allergies No Known Allergies Allergy (Unverified 09/05/19 10:15) Home Medications: Home Medications Medication Instructions Recorded Confirmed Last Taken Type Amlodipine Besylate [Norvasc] 10 mg PO DAILY 09/05/19 02/24/20 09/04/19 History Furosemide [Lasix] 20 mg PO QDAY #30 tablet 09/05/19 02/24/20 Unknown Rx Lisinopril [Zestril] 5 mg PO DAILY #30 tablet 09/05/19 02/24/20 Unknown Rx Metoprolol [Lopressor TAB] 25 mg PO BID #60 tablet 09/05/19 02/24/20 Unknown Rx Active Medications: Generic Name Dose Route Start Last Admin Trade Name Freq PRN Reason Stop Dose Admin Acetaminophen 650 mg 02/26/20 16:23 03/10/20 07:16 Tylenol PO 650 mg Q4H PRN Administration Pain, Mild (1-3)/ Temp >100. Albuterol 2.5 mg 02/27/20 17:55 Proventil IH Q4HRT PRN Shortness Of Breath Albuterol/Ipratropium 1 ampul 02/28/20 12:17 03/11/20 04:24 Duoneb *Not For Prn Use* IH 1 ampul Q6HRT INDU Administration Amlodipine Besylate 10 mg 02/28/20 10:00 03/10/20 09:09 Amlodipine PO 10 mg QDAY INDU Administration Lipase/Protease/Amylase 1 each 03/01/20 08:46 Pancrealivia Davis 10,500 Unit FEEDTUBE PRN PRN For Clogged Feeding Tube Aspirin 325 mg 03/11/20 10:00 Ecotrin PO QDAY INDU Dextrose 50 ml 02/29/20 08:00 03/01/20 00:20 D50w (25gm) Syringe IV 10 ml Q30MIN PRN Administration HYPOGLYCEMIA Protocol Fentanyl 50 mcg 03/11/20 06:01 Sublimaze IV Q10MIN PRN ANALGESIA Hydralazine HCl 25 mg 03/04/20 14:00 03/10/20 21:09 Apresoline PO 25 mg Q8HR INDU Administration Hydrophilic Ointment 1 applic 03/11/20 06:01 Vaseline Lip Therapy TP Q2HR PRN Dry Lips MEROPENEM/NS 1 GRAM/100 ML 1 gram in 100 mls @ 100 mls/hr 03/03/20 18:00 03/10/20 17:01 Merrem/Ns 1 Gram/100 Ml IV 100 mls/hr QPM INDU Administration Protocol Sodium Chloride 100 mls @ 999 mls/hr 03/08/20 17:05 Nacl 0.9% IV NIKOLAY PRN Hypotension Heparin Sodium/Sodium Chloride 25,000 unit in 500 mls @ 20 mls/hr 03/11/20 06:00 Heparin/ 0.45% Nacl-25,000 Unit/500 Ml IV TITRATE INDU Protocol 1,000 UNITS/HR Propofol 1,000 mg in 100 mls @ 2.73 mls/hr 03/11/20 07:00 03/11/20 07:34 Diprivan 10 Mg/Ml IV 10 mcg/kg/min TITR INDU 5.46 mls/hr Titration Protocol 5 MCG/KG/MIN Fentanyl Citrate 2,000 mcg in 100 mls @ 4.55 mls/hr 03/11/20 07:00 Fentanyl Drip Premix IV TITR INDU Protocol 1 MCG/KG/HR Labetalol HCl 10 mg 02/28/20 09:00 03/11/20 03:04 Labetalol IV 10 mg Q4H PRN Administration Hypertension Lansoprazole 30 mg 03/06/20 10:00 03/10/20 09:08 Prevacid Solutab FEEDTUBE 30 mg QDAY INDU Administration Lorazepam 1 mg 03/10/20 12:00 03/11/20 05:25 Ativan IV 1 mg Q4H PRN Administration AGITATION Metoprolol Tartrate 25 mg 02/28/20 10:00 03/10/20 21:09 Metoprolol PO 25 mg BID INDU Administration Morphine Sulfate 2 mg 03/11/20 05:13 Morphine IV Q4H PRN Pain, Moderate (4-6) Multi-Ingred Cream/Lotion/Oil/Oint 1 applic 03/11/20 06:01 Artificial Tears Ophth Oint OU Q4HR PRN Dry Eye(s) Nitroglycerin 0.4 mg 03/11/20 05:14 Nitrostat SL .Q5MIN PRN Chest Pain Ondansetron HCl 4 mg 02/24/20 06:45 02/25/20 23:33 Zofran IV 4 mg Q8H PRN Administration Nausea And Vomiting Quetiapine Fumarate 100 mg 03/06/20 10:00 03/10/20 09:08 Seroquel PO 100 mg QAM INDU Administration Quetiapine Fumarate 200 mg 03/06/20 22:00 03/10/20 21:09 Seroquel PO 200 mg QHS INDU Administration Scopolamine 1 each 03/04/20 16:00 03/10/20 09:07 Transderm-Scop TD 1 each Q3D INDU Administration Simple Syrup 15 ml 03/01/20 08:46 Simple Syrup FEEDTUBE PRN PRN Hypoglycemia Simple Syrup 30 ml 03/01/20 08:46 Simple Syrup FEEDTUBE PRN PRN Hypoglycemia Sodium Bicarbonate 325 mg 03/01/20 08:46 Sodium Bicarbonate FEEDTUBE PRN PRN For Clogged Feeding Tube Sodium Chloride 10 ml 02/24/20 10:00 03/10/20 21:28 Sodium Chloride Flush Syringe 10 Ml IV 10 ml BID INDU Administration Sodium Chloride 10 ml 02/24/20 06:45 03/10/20 09:06 Sodium Chloride Flush Syringe 10 Ml IV 10 ml PRN PRN Administration LINE FLUSH Tamsulosin HCl 0.4 mg 03/01/20 17:00 03/10/20 09:09 Flomax PO 0.4 mg QDAY INDU Administration
--- NOTE | 2020-03-11 09:22 | XRay Report ---
ABDOMEN 1 VIEW INDICATION / CLINICAL INFORMATION: NGT placement. COMPARISON: 03/09/2020 FINDINGS: TUBES / LINES: Nasogastric tube projects over the gastric bubble in the left upper quadrant, satisfac tory position. BOWEL GAS PATTERN: No dilated bowel loops visualized. Moderate gaseous distention of mostly large bow el loops. FREE AIR / EXTRALUMINAL GAS: None seen. ADDITIONAL FINDINGS: Cholecystectomy status. IMPRESSION: 1. Satisfactory nasogastric tube position, as above. Signer Name: Sabas Dyson MD Signed: 03/11/2020 9:18 AM Workstation Name: [id number]
[2020-03-11 09:28] LABS: INR 1.07 (0.87-1.13)
[2020-03-11] MEDS: hydrALAZINE 25 MG TAB PO SCH ×3 (09:54→22:42)
[2020-03-11] MEDS: fentaNYL DRIP Premix 2,000 MCG/100 ML BAG IV SCH ×3 (10:41→20:44)
[2020-03-11] MEDS: ASPIRIN EC 325 MG TAB PO SCH (10:45)
[2020-03-11] MEDS: TAMSULOSIN 0.4 MG CAP PO SCH (10:45)
[2020-03-11] MEDS: QUEtiapine 100 MG TAB PO SCH (10:45)
[2020-03-11] MEDS: LANSOPRAZOLE 30 MG SOLUTAB FEEDTUBE SCH (10:46)
[2020-03-11] MEDS: amLODIPine 10 MG TAB PO SCH (11:03)
[2020-03-11] MEDS: METOPROLOL TARTRATE 25 MG TAB PO SCH ×2 (11:03→22:41)
--- NOTE | 2020-03-11 11:18 | Progress Note ---
Assessment and Plan Acute Hypoxemic Respiratory Failure on MVS Severe Sepsis Acute Toxic-Metabolic Encephalopathy Hypertensive urgency Morbid obesity Acute pancreatitis, abdominal pain Medical non compliance Oropharyngeal Dysphagia VAP bundle addressed Resume Fentanyl for pain management, can titrate up to achieve RASS of 0 to -1 Continue all care as documented below - HD/UF for toxin and volume clearance per Renal service, HD/UF today - daily SAT and SBT assessment as tolerated - on minimal vent settings at this time - continue current vent settings - continue to hold fentanyl for SBT - accuchecks with glycemic control per SSI (While critically ill target blood glucose of 140-180 mg/dL; avoid hypoglycemia) - sedation for target RASS -1 to -2 - continue to wean supplemental oxygen for target O2 sats > 90% - VAP bundle addressed - continue lung protective strategies - continue bronchodilators with pulmonary hygiene per RT - wean per pulmonary driven protocols otherwise - continue enteral nutritiuon at goal rate as tolerated - complete Meropenem; de-escalate per ID rec's - JUANIS per senior electrical designer, [employer] - VTE prophylaxis-Heparin - prn Analgesia per CPOT score - avoid nephrotoxins, renally dose all medications - Maintenance of sleep-wake cycle, avoid delirium - Stress ulcer prophylaxis-PPI - mobility protocol, off loading and frequent turning for pressure ulcer prevention - Monitor hemodynamics closely CONDITION: CRITICAL PROGNOSIS: GUARDED CODE STATUS: FULL CODE The high probability of a clinically significant, sudden or life-threatening deterioration of the [respiratory, cardiovascular & GI] system(s) required my full and direct attention, intervention and personal management. The aggregate critical care time was [32] minutes without overlap. Time includes spent on; [x] Data Review and interpretation [x] Patient assessment and monitoring of vital signs [x] Documentation [x] Medication orders and management Subjective Date of service: 03/11/20 Principal diagnosis: HTNsive urgency; Morbid obesity; Ac. pancreatitis; Abdominal pain Interval history: Patient is seen today for: Acute hypoxemic respiratory failure on MVS; Hypertensive urgency; Morbid obesity; Acute pancreatitis; abdominal pain; Medical non compliance; Acute Toxic Metabolic Encephalopathy Seen and examined at bedside; 24hour events reviewed; nursing and respiratory care staff consulted; no adverse overnight events reported to me; resting peacefully in bed; remains on MVS; episodes of agitation overnight requiring prn doses of Lorazepam; On Klonipin, Fentanyl off on full support, required re-intubation this morning...was agitated and pulled off her BIPAP. Had increased work of breathing , tachychardia and agitation. For HD this morning Objective Vital Signs - 12hr 03/10/20 03/10/20 03/10/20 23:29 23:31 23:38 Temperature Pulse Rate 103 H 102 H 102 H Pulse Rate [ Anterior Bilateral Throughout] Pulse Rate [ From Monitor] Pulse Rate [ Left Upper Lobe ] Respiratory 41 H 39 H 40 H Rate Respiratory Rate [Abdomen] Respiratory Rate [Anterior Bilateral Throughout] Respiratory Rate [Left Upper Lobe] Blood Pressure 137/89 137/89 137/89 O2 Sat by Pulse 99 98 99 Oximetry 03/11/20 03/11/20 03/11/20 00:00 00:31 00:43 Temperature 98.9 F Pulse Rate 101 H 101 H Pulse Rate [ Anterior Bilateral Throughout] Pulse Rate [ 102 H From Monitor] Pulse Rate [ Left Upper Lobe ] Respiratory 27 H 38 H 48 H Rate Respiratory Rate [Abdomen] Respiratory Rate [Anterior Bilateral Throughout] Respiratory Rate [Left Upper Lobe] Blood Pressure 145/85 145/85 O2 Sat by Pulse 99 97 Oximetry 03/11/20 03/11/20 03/11/20 01:00 01:13 01:31 Temperature Pulse Rate 100 H 105 H Pulse Rate [ Anterior Bilateral Throughout] Pulse Rate [ From Monitor] Pulse Rate [ Left Upper Lobe ] Respiratory 40 H 44 H 43 H Rate Respiratory 32 H Rate [Abdomen] Respiratory Rate [Anterior Bilateral Throughout] Respiratory Rate [Left Upper Lobe] Blood Pressure 145/94 145/94 O2 Sat by Pulse 100 100 Oximetry 03/11/20 03/11/20 03/11/20 02:00 02:31 02:58 Temperature Pulse Rate 98 H 105 H Pulse Rate [ Anterior Bilateral Throughout] Pulse Rate [ From Monitor] Pulse Rate [ Left Upper Lobe ] Respiratory 39 H 44 H 48 H Rate Respiratory 45 H Rate [Abdomen] Respiratory Rate [Anterior Bilateral Throughout] Respiratory Rate [Left Upper Lobe] Blood Pressure 147/94 147/94 O2 Sat by Pulse 98 98 Oximetry 03/11/20 03/11/20 03/11/20 03:00 03:04 03:31 Temperature Pulse Rate 111 H 107 H 91 H Pulse Rate [ Anterior Bilateral Throughout] Pulse Rate [ From Monitor] Pulse Rate [ Left Upper Lobe ] Respiratory 45 H 37 H Rate Respiratory Rate [Abdomen] Respiratory Rate [Anterior Bilateral Throughout] Respiratory Rate [Left Upper Lobe] Blood Pressure 155/90 155/90 155/90 O2 Sat by Pulse 99 99 Oximetry 03/11/20 03/11/20 03/11/20 04:00 04:01 04:31 Temperature 99.0 F 99.0 F Pulse Rate 110 H 105 H Pulse Rate [ Anterior Bilateral Throughout] Pulse Rate [ 116 H From Monitor] Pulse Rate [ Left Upper Lobe ] Respiratory 45 H 43 H Rate Respiratory Rate [Abdomen] Respiratory Rate [Anterior Bilateral Throughout] Respiratory Rate [Left Upper Lobe] Blood Pressure 132/76 132/76 O2 Sat by Pulse 98 96 Oximetry 03/11/20 03/11/20 03/11/20 04:51 04:53 05:00 Temperature Pulse Rate 107 H 99 H Pulse Rate [ 107 H Anterior Bilateral Throughout] Pulse Rate [ From Monitor] Pulse Rate [ Left Upper Lobe ] Respiratory 17 46 H 45 H Rate Respiratory 45 H Rate [Abdomen] Respiratory 25 H Rate [Anterior Bilateral Throughout] Respiratory Rate [Left Upper Lobe] Blood Pressure 132/76 152/93 O2 Sat by Pulse 97 98 Oximetry 03/11/20 03/11/20 03/11/20 05:15 05:23 05:31 Temperature Pulse Rate 113 H 109 H Pulse Rate [ Anterior Bilateral Throughout] Pulse Rate [ From Monitor] Pulse Rate [ Left Upper Lobe ] Respiratory 39 H 45 H 40 H Rate Respiratory Rate [Abdomen] Respiratory Rate [Anterior Bilateral Throughout] Respiratory Rate [Left Upper Lobe] Blood Pressure 152/93 152/93 O2 Sat by Pulse 97 94 Oximetry 03/11/20 03/11/20 03/11/20 05:45 06:00 06:12 Temperature Pulse Rate 117 H 101 H 98 H Pulse Rate [ Anterior Bilateral Throughout] Pulse Rate [ From Monitor] Pulse Rate [ Left Upper Lobe ] Respiratory 20 30 H Rate Respiratory 22 Rate [Abdomen] Respiratory Rate [Anterior Bilateral Throughout] Respiratory Rate [Left Upper Lobe] Blood Pressure 152/93 158/95 158/95 O2 Sat by Pulse 81 L 100 99 Oximetry 03/11/20 03/11/20 03/11/20 06:15 06:31 06:45 Temperature Pulse Rate 96 H 94 H 93 H Pulse Rate [ Anterior Bilateral Throughout] Pulse Rate [ From Monitor] Pulse Rate [ Left Upper Lobe ] Respiratory 27 H 24 21 Rate Respiratory Rate [Abdomen] Respiratory Rate [Anterior Bilateral Throughout] Respiratory Rate [Left Upper Lobe] Blood Pressure 158/95 158/95 158/95 O2 Sat by Pulse 99 99 100 Oximetry 03/11/20 03/11/20 03/11/20 07:00 07:15 07:31 Temperature Pulse Rate 92 H 95 H 93 H Pulse Rate [ Anterior Bilateral Throughout] Pulse Rate [ From Monitor] Pulse Rate [ Left Upper Lobe ] Respiratory 20 23 20 Rate Respiratory Rate [Abdomen] Respiratory Rate [Anterior Bilateral Throughout] Respiratory Rate [Left Upper Lobe] Blood Pressure 144/90 144/90 144/90 O2 Sat by Pulse 100 100 100 Oximetry 03/11/20 03/11/20 03/11/20 07:45 08:00 08:15 Temperature 98.8 F Pulse Rate 94 H 95 H 95 H Pulse Rate [ Anterior Bilateral Throughout] Pulse Rate [ 95 H From Monitor] Pulse Rate [ Left Upper Lobe ] Respiratory 21 25 H 28 H Rate Respiratory Rate [Abdomen] Respiratory Rate [Anterior Bilateral Throughout] Respiratory Rate [Left Upper Lobe] Blood Pressure 144/90 152/92 152/92 O2 Sat by Pulse 100 100 100 Oximetry 03/11/20 03/11/20 03/11/20 08:31 08:45 08:50 Temperature Pulse Rate 89 92 H Pulse Rate [ Anterior Bilateral Throughout] Pulse Rate [ From Monitor] Pulse Rate [ 92 H Left Upper Lobe ] Respiratory 22 16 Rate Respiratory Rate [Abdomen] Respiratory Rate [Anterior Bilateral Throughout] Respiratory 23 Rate [Left Upper Lobe] Blood Pressure 152/92 152/92 O2 Sat by Pulse 100 100 Oximetry 03/11/20 03/11/20 03/11/20 08:55 09:01 09:15 Temperature Pulse Rate 94 H 93 H Pulse Rate [ Anterior Bilateral Throughout] Pulse Rate [ From Monitor] Pulse Rate [ Left Upper Lobe ] Respiratory 21 Rate Respiratory Rate [Abdomen] Respiratory Rate [Anterior Bilateral Throughout] Respiratory Rate [Left Upper Lobe] Blood Pressure 174/96 174/96 174/96 O2 Sat by Pulse 100 99 100 Oximetry 03/11/20 03/11/20 09:31 11:03 Temperature Pulse Rate 93 H 91 H Pulse Rate [ Anterior Bilateral Throughout] Pulse Rate [ From Monitor] Pulse Rate [ Left Upper Lobe ] Respiratory 18 Rate Respiratory Rate [Abdomen] Respiratory Rate [Anterior Bilateral Throughout] Respiratory Rate [Left Upper Lobe] Blood Pressure 159/98 170/99 O2 Sat by Pulse 99 Oximetry Constitutional: no acute distress, other (Obese female with mildly increased respiratory effort at rest on MVS, anxious and agitated) Eyes: non-icteric ENT: oropharynx moist, other (ETT 24 cm TY, RIJ HD trialysis catheter) Neck: supple, no lymphadenopathy, no JVD Effort: mildly labored Ascultation: Bilateral: diminished breath sounds (at the bases), rales, rhonchi Percussion: Bilateral: not dull Cardiovascular: regular rate and rhythm, other (S1,S2) Gastrointestinal: hypoactive bowel sounds, non-tender, other (distended and firm) Integumentary: normal Extremities: no cyanosis, no edema, pink and warm, pulses normal Neurologic: normal mental status, non-focal exam, pupils equal and round, motor strength normal and Psychiatric: anxious CBC and BMP: 03/14/20 06:15 03/14/20 06:15 ABG, PT/INR, D-dimer: ABG ABG pH 7.421 pH Units (7.350-7.450) 03/11/20 06:50 POC ABG pCO2 46.6 mmHg (32.0-48.0) 03/11/20 03:25 ABG pCO2 38.1 mm Hg 03/11/20 06:50 POC ABG pO2 77.5 mmHg (83-108) L 03/11/20 03:25 ABG pO2 67.8 mm Hg (80.0-90.0) L 03/11/20 06:50 POC ABG HCO3 24.9 03/11/20 03:25 ABG O2 Saturation 98.0 % (95.0-99.0) 03/11/20 06:50 PT/INR, D-dimer PT 14.1 Sec. (12.2-14.9) 03/11/20 07:31 INR 1.07 (0.87-1.13) 03/11/20 07:31 Abnormal lab findings: Abnormal Labs 02/24/20 02/24/20 02/24/20 02:53 02:53 Unknown WBC 12.7 H Hgb 10.0 L RBC Hct MCV 70 L MCH 22 L RDW 17.9 H Plt Count 458 H Lymph % (Auto) 8.9 L Lymph # 1.1 L [place] % (Auto) [place] # Lymph # (Auto) [place] # (Auto) Seg Neutrophils % 84.2 H Seg Neutrophils # 10.7 H Seg Neuts % (Manual) Lymphocytes % (Manual) Monocytes % (Manual) Nucleated RBC % Seg Neutrophils # Man Lymphocytes # (Manual) Monocytes # (Manual) Eosinophils # (Manual) Basophils # (Manual) ABG pH POC ABG pCO2 POC ABG pO2 ABG pO2 ABG HCO3 ABG O2 Saturation ABG Base Excess ABG Hemoglobin ABG Oxyhemoglobin ABG Sodium ABG Glucose Oxyhemoglobin Sodium Potassium Chloride Carbon Dioxide BUN 27 H Creatinine 1.7 H Glucose 118 H POC Glucose Calcium Phosphorus Magnesium Direct Bilirubin AST Alkaline Phosphatase Albumin Troponin T C-Reactive Protein Nhotc-5-Msivcocto PEP Interpretation Lipase 232 H PTH Intact Arterial Blood Glucose Urine WBC (Auto) 11.0 H Urine Creatinine Urine Total Protein ZINA Screen Crossmatch 02/25/20 02/25/20 02/25/20 00:03 03:49 03:49 WBC 29.1 H Hgb 9.4 L RBC Hct 30.2 L MCV 71 L MCH 22 L RDW 18.3 H Plt Count 525 H Lymph % (Auto) 3.4 L Lymph # 1.0 L [place] % (Auto) [place] # 1.0 H Lymph # (Auto) [place] # (Auto) Seg Neutrophils % Seg Neutrophils # 26.4 H Seg Neuts % (Manual) Lymphocytes % (Manual) Monocytes % (Manual) Nucleated RBC % Seg Neutrophils # Man Lymphocytes # (Manual) Monocytes # (Manual) Eosinophils # (Manual) Basophils # (Manual) ABG pH POC ABG pCO2 POC ABG pO2 ABG pO2 ABG HCO3 ABG O2 Saturation ABG Base Excess ABG Hemoglobin ABG Oxyhemoglobin ABG Sodium ABG Glucose Oxyhemoglobin Sodium Potassium Chloride Carbon Dioxide BUN Creatinine Glucose POC Glucose 126 H Calcium Phosphorus Magnesium Direct Bilirubin AST Alkaline Phosphatase Albumin Troponin T C-Reactive Protein Gmzvf-3-Kiuhgyyck PEP Interpretation Lipase 1486 H PTH Intact Arterial Blood Glucose Urine WBC (Auto) Urine Creatinine Urine Total Protein ZINA Screen Crossmatch 02/25/20 02/25/20 02/25/20 03:49 05:55 22:55 WBC Hgb RBC Hct MCV MCH RDW Plt Count Lymph % (Auto) Lymph # [place] % (Auto) [place] # Lymph # (Auto) [place] # (Auto) Seg Neutrophils % Seg Neutrophils # Seg Neuts % (Manual) Lymphocytes % (Manual) Monocytes % (Manual) Nucleated RBC % Seg Neutrophils # Man Lymphocytes # (Manual) Monocytes # (Manual) Eosinophils # (Manual) Basophils # (Manual) ABG pH POC ABG pCO2 POC ABG pO2 ABG pO2 ABG HCO3 ABG O2 Saturation ABG Base Excess ABG Hemoglobin ABG Oxyhemoglobin ABG Sodium ABG Glucose Oxyhemoglobin Sodium 136 L Potassium Chloride 97.9 L Carbon Dioxide 21 L BUN 39 H Creatinine 3.0 H D Glucose 118 H POC Glucose 124 H Calcium Phosphorus Magnesium Direct Bilirubin AST Alkaline Phosphatase Albumin 3.6 L Troponin T C-Reactive Protein Iimjm-4-Vtixjkykp PEP Interpretation Lipase PTH Intact Arterial Blood Glucose Urine WBC (Auto) Urine Creatinine 161.0 H Urine Total Protein 150 H ZINA Screen Crossmatch 02/26/20 02/26/20 02/26/20 04:39 04:39 04:39 WBC 30.3 H Hgb 9.1 L RBC Hct 29.8 L MCV 71 L MCH 22 L RDW 18.2 H Plt Count 530 H Lymph % (Auto) Lymph # [place] % (Auto) [place] # Lymph # (Auto) [place] # (Auto) Seg Neutrophils % Seg Neutrophils # Seg Neuts % (Manual) Lymphocytes % (Manual) Monocytes % (Manual) Nucleated RBC % Seg Neutrophils # Man Lymphocytes # (Manual) Monocytes # (Manual) Eosinophils # (Manual) Basophils # (Manual) ABG pH POC ABG pCO2 POC ABG pO2 ABG pO2 ABG HCO3 ABG O2 Saturation ABG Base Excess ABG Hemoglobin ABG Oxyhemoglobin ABG Sodium ABG Glucose Oxyhemoglobin Sodium Potassium Chloride Carbon Dioxide 19 L BUN 44 H Creatinine 3.1 H Glucose 106 H POC Glucose Calcium 8.1 L Phosphorus Magnesium Direct Bilirubin AST Alkaline Phosphatase Albumin Troponin T C-Reactive Protein Ryfoa-0-Iqeskhffq PEP Interpretation Lipase 540 H PTH Intact Arterial Blood Glucose Urine WBC (Auto) Urine Creatinine Urine Total Protein ZINA Screen Positive H Crossmatch 02/26/20 02/26/20 02/26/20 04:39 08:15 12:14 WBC Hgb RBC Hct MCV MCH RDW Plt Count Lymph % (Auto) Lymph # [place] % (Auto) [place] # Lymph # (Auto) [place] # (Auto) Seg Neutrophils % Seg Neutrophils # Seg Neuts % (Manual) Lymphocytes % (Manual) Monocytes % (Manual) Nucleated RBC % Seg Neutrophils # Man Lymphocytes # (Manual) Monocytes # (Manual) Eosinophils # (Manual) Basophils # (Manual) ABG pH POC ABG pCO2 POC ABG pO2 ABG pO2 ABG HCO3 ABG O2 Saturation ABG Base Excess ABG Hemoglobin ABG Oxyhemoglobin ABG Sodium ABG Glucose Oxyhemoglobin Sodium Potassium Chloride Carbon Dioxide BUN Creatinine Glucose POC Glucose 112 H Calcium Phosphorus Magnesium Direct Bilirubin AST Alkaline Phosphatase Albumin 2.8 L Troponin T C-Reactive Protein Npfal-5-Sjlrqeuym 0.7 H PEP Interpretation see below H Lipase PTH Intact 911.3 H Arterial Blood Glucose Urine WBC (Auto) Urine Creatinine Urine Total Protein ZINA Screen Crossmatch 02/27/20 02/27/20 02/27/20 04:18 04:18 04:18 WBC 26.8 H Hgb 7.9 L RBC Hct 26.3 L MCV 70 L MCH 21 L RDW 18.0 H Plt Count 513 H Lymph % (Auto) Lymph # [place] % (Auto) [place] # Lymph # (Auto) [place] # (Auto) Seg Neutrophils % Seg Neutrophils # Seg Neuts % (Manual) Lymphocytes % (Manual) Monocytes % (Manual) Nucleated RBC % Seg Neutrophils # Man Lymphocytes # (Manual) Monocytes # (Manual) Eosinophils # (Manual) Basophils # (Manual) ABG pH POC ABG pCO2 POC ABG pO2 ABG pO2 ABG HCO3 ABG O2 Saturation ABG Base Excess ABG Hemoglobin ABG Oxyhemoglobin ABG Sodium ABG Glucose Oxyhemoglobin Sodium 135 L 135 L Potassium Chloride Carbon Dioxide 15 L 16 L BUN 50 H 51 H Creatinine 3.4 H 3.4 H Glucose POC Glucose Calcium 7.4 L 7.5 L Phosphorus Magnesium Direct Bilirubin AST Alkaline Phosphatase Albumin 3.0 L Troponin T C-Reactive Protein 37.30 H Oqukq-8-Wouyvcrer PEP Interpretation Lipase 177 H PTH Intact Arterial Blood Glucose Urine WBC (Auto) Urine Creatinine Urine Total Protein ZINA Screen Crossmatch 02/27/20 02/28/20 02/28/20 16:57 05:07 05:07 WBC Hgb RBC Hct MCV MCH RDW Plt Count Lymph % (Auto) Lymph # [place] % (Auto) [place] # Lymph # (Auto) [place] # (Auto) Seg Neutrophils % Seg Neutrophils # Seg Neuts % (Manual) Lymphocytes % (Manual) Monocytes % (Manual) Nucleated RBC % Seg Neutrophils # Man Lymphocytes # (Manual) Monocytes # (Manual) Eosinophils # (Manual) Basophils # (Manual) ABG pH 7.336 L POC ABG pCO2 POC ABG pO2 ABG pO2 57.0 L ABG HCO3 16.4 L ABG O2 Saturation 88.2 L ABG Base Excess -8.4 L ABG Hemoglobin 10.4 L ABG Oxyhemoglobin ABG Sodium ABG Glucose Oxyhemoglobin 85.7 L Sodium Potassium Chloride Carbon Dioxide 14 L BUN 60 H Creatinine 4.2 H Glucose POC Glucose Calcium 8.2 L Phosphorus Magnesium Direct Bilirubin AST Alkaline Phosphatase Albumin Troponin T C-Reactive Protein Rtaho-1-Fefawggff PEP Interpretation Lipase 155 H PTH Intact Arterial Blood Glucose Urine WBC (Auto) Urine Creatinine Urine Total Protein ZINA Screen Crossmatch 02/28/20 02/28/20 02/28/20 05:56 11:05 11:05 WBC Hgb RBC Hct MCV MCH RDW Plt Count Lymph % (Auto) Lymph # [place] % (Auto) [place] # Lymph # (Auto) [place] # (Auto) Seg Neutrophils % Seg Neutrophils # Seg Neuts % (Manual) Lymphocytes % (Manual) Monocytes % (Manual) Nucleated RBC % Seg Neutrophils # Man Lymphocytes # (Manual) Monocytes # (Manual) Eosinophils # (Manual) Basophils # (Manual) ABG pH 7.317 L POC ABG pCO2 POC ABG pO2 76.2 L ABG pO2 ABG HCO3 16.4 L ABG O2 Saturation ABG Base Excess -8.9 L ABG Hemoglobin 6.6 L 7.6 L ABG Oxyhemoglobin ABG Sodium ABG Glucose Oxyhemoglobin 94.6 L Sodium Potassium Chloride Carbon Dioxide BUN Creatinine Glucose POC Glucose 115 H Calcium Phosphorus Magnesium Direct Bilirubin AST Alkaline Phosphatase Albumin Troponin T C-Reactive Protein Thues-8-Bpzipvoly PEP Interpretation Lipase PTH Intact Arterial Blood Glucose Urine WBC (Auto) Urine Creatinine Urine Total Protein ZINA Screen Crossmatch 02/28/20 02/28/20 02/29/20 17:39 19:39 05:43 WBC Hgb RBC Hct MCV MCH RDW Plt Count Lymph % (Auto) Lymph # [place] % (Auto) [place] # Lymph # (Auto) [place] # (Auto) Seg Neutrophils % Seg Neutrophils # Seg Neuts % (Manual) Lymphocytes % (Manual) Monocytes % (Manual) Nucleated RBC % Seg Neutrophils # Man Lymphocytes # (Manual) Monocytes # (Manual) Eosinophils # (Manual) Basophils # (Manual) ABG pH 7.300 L POC ABG pCO2 POC ABG pO2 ABG pO2 117.5 H ABG HCO3 15.0 L ABG O2 Saturation ABG Base Excess -10.5 L ABG Hemoglobin 6.4 L ABG Oxyhemoglobin ABG Sodium ABG Glucose Oxyhemoglobin Sodium Potassium Chloride Carbon Dioxide BUN Creatinine Glucose POC Glucose 120 H 66 L Calcium Phosphorus Magnesium Direct Bilirubin AST Alkaline Phosphatase Albumin Troponin T C-Reactive Protein Mfryr-3-Mwujlctzl PEP Interpretation Lipase PTH Intact Arterial Blood Glucose Urine WBC (Auto) Urine Creatinine Urine Total Protein ZINA Screen Crossmatch 02/29/20 02/29/20 02/29/20 05:45 12:04 12:31 WBC Hgb RBC Hct MCV MCH RDW Plt Count Lymph % (Auto) Lymph # [place] % (Auto) [place] # Lymph # (Auto) [place] # (Auto) Seg Neutrophils % Seg Neutrophils # Seg Neuts % (Manual) Lymphocytes % (Manual) Monocytes % (Manual) Nucleated RBC % Seg Neutrophils # Man Lymphocytes # (Manual) Monocytes # (Manual) Eosinophils # (Manual) Basophils # (Manual) ABG pH 7.212 L POC ABG pCO2 POC ABG pO2 ABG pO2 ABG HCO3 ABG O2 Saturation ABG Base Excess ABG Hemoglobin 7.4 L ABG Oxyhemoglobin ABG Sodium ABG Glucose Oxyhemoglobin Sodium Potassium Chloride Carbon Dioxide BUN Creatinine Glucose POC Glucose 65 L 64 L Calcium Phosphorus Magnesium Direct Bilirubin AST Alkaline Phosphatase Albumin Troponin T C-Reactive Protein Gnovr-7-Ohmalltpc PEP Interpretation Lipase PTH Intact Arterial Blood Glucose Urine WBC (Auto) Urine Creatinine Urine Total Protein ZINA Screen Crossmatch 02/29/20 02/29/20 02/29/20 14:22 14:22 18:20 WBC Hgb RBC Hct MCV MCH RDW Plt Count Lymph % (Auto) Lymph # [place] % (Auto) [place] # Lymph # (Auto) [place] # (Auto) Seg Neutrophils % Seg Neutrophils # Seg Neuts % (Manual) Lymphocytes % (Manual) Monocytes % (Manual) Nucleated RBC % Seg Neutrophils # Man Lymphocytes # (Manual) Monocytes # (Manual) Eosinophils # (Manual) Basophils # (Manual) ABG pH POC ABG pCO2 POC ABG pO2 ABG pO2 ABG HCO3 ABG O2 Saturation ABG Base Excess ABG Hemoglobin ABG Oxyhemoglobin ABG Sodium ABG Glucose Oxyhemoglobin Sodium Potassium Chloride Carbon Dioxide 16 L BUN 77 H Creatinine 4.7 H Glucose POC Glucose 66 L Calcium Phosphorus 7.50 H Magnesium 2.60 H Direct Bilirubin AST Alkaline Phosphatase Albumin 2.3 L Troponin T C-Reactive Protein Dpgkh-3-Hslluysbp PEP Interpretation Lipase PTH Intact Arterial Blood Glucose Urine WBC (Auto) Urine Creatinine Urine Total Protein ZINA Screen Crossmatch 02/29/20 03/01/20 03/01/20 18:24 04:05 04:37 WBC Hgb RBC Hct MCV MCH RDW Plt Count Lymph % (Auto) Lymph # [place] % (Auto) [place] # Lymph # (Auto) [place] # (Auto) Seg Neutrophils % Seg Neutrophils # Seg Neuts % (Manual) Lymphocytes % (Manual) Monocytes % (Manual) Nucleated RBC % Seg Neutrophils # Man Lymphocytes # (Manual) Monocytes # (Manual) Eosinophils # (Manual) Basophils # (Manual) ABG pH 7.271 L 7.347 L POC ABG pCO2 POC ABG pO2 ABG pO2 133.5 H ABG HCO3 15.8 L ABG O2 Saturation ABG Base Excess -8.9 L ABG Hemoglobin 7.2 L 7.6 L ABG Oxyhemoglobin 93.4 L ABG Sodium ABG Glucose Oxyhemoglobin Sodium Potassium Chloride 107.6 H Carbon Dioxide 14 L BUN 83 H Creatinine 5.6 H Glucose POC Glucose Calcium Phosphorus 6.10 H Magnesium 2.40 H Direct Bilirubin AST Alkaline Phosphatase Albumin Troponin T C-Reactive Protein Mvcia-2-Huahnxspl PEP Interpretation Lipase PTH Intact Arterial Blood Glucose Urine WBC (Auto) Urine Creatinine Urine Total Protein ZINA Screen Crossmatch 03/01/20 03/01/20 03/01/20 11:06 16:22 18:12 WBC 30.5 H Hgb 6.2 L RBC 2.92 L Hct 20.8 L MCV 71 L MCH 21 L RDW 18.2 H Plt Count 560 H Lymph % (Auto) Lymph # [place] % (Auto) [place] # Lymph # (Auto) [place] # (Auto) Seg Neutrophils % Seg Neutrophils # Seg Neuts % (Manual) 79.0 H Lymphocytes % (Manual) 3.0 L Monocytes % (Manual) Nucleated RBC % Seg Neutrophils # Man 24.1 H Lymphocytes # (Manual) 0.9 L Monocytes # (Manual) 2.1 H Eosinophils # (Manual) Basophils # (Manual) ABG pH POC ABG pCO2 POC ABG pO2 ABG pO2 ABG HCO3 ABG O2 Saturation ABG Base Excess ABG Hemoglobin ABG Oxyhemoglobin ABG Sodium ABG Glucose Oxyhemoglobin Sodium Potassium 5.3 H D Chloride Carbon Dioxide 11 L BUN 77 H Creatinine 5.0 H Glucose 54 L POC Glucose 121 H Calcium Phosphorus Magnesium Direct Bilirubin AST Alkaline Phosphatase Albumin 3.0 L Troponin T C-Reactive Protein 36.50 H Sngvj-0-Hdcnnvnab PEP Interpretation Lipase PTH Intact Arterial Blood Glucose Urine WBC (Auto) Urine Creatinine Urine Total Protein ZINA Screen Crossmatch 03/01/20 03/01/20 03/01/20 18:30 23:37 Unknown WBC Hgb RBC Hct MCV MCH RDW Plt Count Lymph % (Auto) Lymph # [place] % (Auto) [place] # Lymph # (Auto) [place] # (Auto) Seg Neutrophils % Seg Neutrophils # Seg Neuts % (Manual) Lymphocytes % (Manual) Monocytes % (Manual) Nucleated RBC % Seg Neutrophils # Man Lymphocytes # (Manual) Monocytes # (Manual) Eosinophils # (Manual) Basophils # (Manual) ABG pH POC ABG pCO2 POC ABG pO2 ABG pO2 ABG HCO3 ABG O2 Saturation ABG Base Excess ABG Hemoglobin ABG Oxyhemoglobin ABG Sodium ABG Glucose Oxyhemoglobin Sodium Potassium Chloride Carbon Dioxide BUN Creatinine Glucose POC Glucose 125 H Calcium Phosphorus Magnesium Direct Bilirubin AST Alkaline Phosphatase Albumin Troponin T C-Reactive Protein Xnvmn-3-Nuruyhimm PEP Interpretation Lipase 297 H PTH Intact Arterial Blood Glucose Urine WBC (Auto) Urine Creatinine Urine Total Protein ZINA Screen Crossmatch See Detail 03/02/20 03/02/20 03/02/20 04:00 05:36 05:36 WBC 26.0 H Hgb 7.8 L RBC 3.26 L Hct 24.2 L MCV 74 L MCH 24 L RDW 21.3 H Plt Count 508 H Lymph % (Auto) Lymph # [place] % (Auto) [place] # Lymph # (Auto) [place] # (Auto) Seg Neutrophils % Seg Neutrophils # Seg Neuts % (Manual) 86.0 H Lymphocytes % (Manual) 4.0 L Monocytes % (Manual) Nucleated RBC % 2.0 H Seg Neutrophils # Man 22.4 H Lymphocytes # (Manual) 1.0 L Monocytes # (Manual) Eosinophils # (Manual) Basophils # (Manual) ABG pH POC ABG pCO2 27.8 L POC ABG pO2 ABG pO2 ABG HCO3 ABG O2 Saturation ABG Base Excess ABG Hemoglobin 8 L ABG Oxyhemoglobin ABG Sodium ABG Glucose Oxyhemoglobin Sodium Potassium Chloride Carbon Dioxide 17 L BUN 85 H Creatinine 5.6 H Glucose 109 H POC Glucose Calcium Phosphorus Magnesium 2.50 H Direct Bilirubin AST Alkaline Phosphatase Albumin 2.3 L Troponin T C-Reactive Protein Thfqg-8-Riquhlyob PEP Interpretation Lipase PTH Intact Arterial Blood Glucose Urine WBC (Auto) Urine Creatinine Urine Total Protein ZINA Screen Crossmatch 03/03/20 03/03/20 03/03/20 04:00 04:36 04:36 WBC Hgb RBC Hct MCV MCH RDW Plt Count Lymph % (Auto) Lymph # [place] % (Auto) [place] # Lymph # (Auto) [place] # (Auto) Seg Neutrophils % Seg Neutrophils # Seg Neuts % (Manual) Lymphocytes % (Manual) Monocytes % (Manual) Nucleated RBC % Seg Neutrophils # Man Lymphocytes # (Manual) Monocytes # (Manual) Eosinophils # (Manual) Basophils # (Manual) ABG pH POC ABG pCO2 31.8 L POC ABG pO2 ABG pO2 ABG HCO3 ABG O2 Saturation ABG Base Excess ABG Hemoglobin 8.6 L ABG Oxyhemoglobin ABG Sodium ABG Glucose Oxyhemoglobin Sodium 147 H Potassium Chloride 108.4 H Carbon Dioxide 16 L BUN 87 H Creatinine 6.2 H Glucose POC Glucose Calcium Phosphorus Magnesium 2.50 H Direct Bilirubin 1.0 H AST Alkaline Phosphatase Albumin 2.4 L Troponin T C-Reactive Protein Nshsv-7-Obzzruftf PEP Interpretation Lipase 119 H PTH Intact Arterial Blood Glucose Urine WBC (Auto) Urine Creatinine Urine Total Protein ZINA Screen Crossmatch 03/03/20 03/03/20 03/03/20 04:36 12:48 17:48 WBC 28.0 H Hgb 8.1 L RBC 3.41 L Hct 25.3 L MCV 74 L MCH 24 L RDW 20.8 H Plt Count 557 H Lymph % (Auto) Lymph # [place] % (Auto) [place] # Lymph # (Auto) [place] # (Auto) Seg Neutrophils % Seg Neutrophils # Seg Neuts % (Manual) 82.0 H Lymphocytes % (Manual) 4.0 L Monocytes % (Manual) Nucleated RBC % Seg Neutrophils # Man 23.0 H Lymphocytes # (Manual) 1.1 L Monocytes # (Manual) 2.0 H Eosinophils # (Manual) Basophils # (Manual) ABG pH POC ABG pCO2 POC ABG pO2 ABG pO2 ABG HCO3 ABG O2 Saturation ABG Base Excess ABG Hemoglobin ABG Oxyhemoglobin ABG Sodium ABG Glucose Oxyhemoglobin Sodium Potassium Chloride Carbon Dioxide BUN Creatinine Glucose POC Glucose 131 H 113 H Calcium Phosphorus Magnesium Direct Bilirubin AST Alkaline Phosphatase Albumin Troponin T C-Reactive Protein Sophz-3-Juipctijc PEP Interpretation Lipase PTH Intact Arterial Blood Glucose Urine WBC (Auto) Urine Creatinine Urine Total Protein ZINA Screen Crossmatch 03/03/20 03/04/20 03/04/20 23:43 03:43 04:05 WBC Hgb RBC Hct MCV MCH RDW Plt Count Lymph % (Auto) Lymph # [place] % (Auto) [place] # Lymph # (Auto) [place] # (Auto) Seg Neutrophils % Seg Neutrophils # Seg Neuts % (Manual) Lymphocytes % (Manual) Monocytes % (Manual) Nucleated RBC % Seg Neutrophils # Man Lymphocytes # (Manual) Monocytes # (Manual) Eosinophils # (Manual) Basophils # (Manual) ABG pH POC ABG pCO2 POC ABG pO2 ABG pO2 57.4 L ABG HCO3 27.2 H ABG O2 Saturation 88.6 L ABG Base Excess ABG Hemoglobin ABG Oxyhemoglobin ABG Sodium ABG Glucose Oxyhemoglobin Sodium Potassium 3.3 L Chloride Carbon Dioxide BUN 65 H Creatinine 5.3 H Glucose 152 H POC Glucose 149 H Calcium Phosphorus Magnesium Direct Bilirubin 0.7 H AST Alkaline Phosphatase Albumin 2.5 L Troponin T C-Reactive Protein Efnzo-7-Dgjmfuokx PEP Interpretation Lipase PTH Intact Arterial Blood Glucose Urine WBC (Auto) Urine Creatinine Urine Total Protein ZINA Screen Crossmatch 03/04/20 03/04/20 03/04/20 04:05 05:26 12:21 WBC 30.1 H Hgb 8.2 L RBC 3.44 L Hct 25.2 L MCV 73 L MCH 24 L RDW 20.7 H Plt Count 554 H Lymph % (Auto) 3.3 L Lymph # [place] % (Auto) [place] # Lymph # (Auto) 1.0 L [place] # (Auto) 2.0 H Seg Neutrophils % 88.6 H Seg Neutrophils # 26.6 H Seg Neuts % (Manual) Lymphocytes % (Manual) Monocytes % (Manual) Nucleated RBC % Seg Neutrophils # Man Lymphocytes # (Manual) Monocytes # (Manual) Eosinophils # (Manual) Basophils # (Manual) ABG pH POC ABG pCO2 POC ABG pO2 ABG pO2 ABG HCO3 ABG O2 Saturation ABG Base Excess ABG Hemoglobin ABG Oxyhemoglobin ABG Sodium ABG Glucose Oxyhemoglobin Sodium Potassium Chloride Carbon Dioxide BUN Creatinine Glucose POC Glucose 136 H 155 H Calcium Phosphorus Magnesium Direct Bilirubin AST Alkaline Phosphatase Albumin Troponin T C-Reactive Protein Lltxs-2-Zxunagtwb PEP Interpretation Lipase PTH Intact Arterial Blood Glucose Urine WBC (Auto) Urine Creatinine Urine Total Protein ZINA Screen Crossmatch 03/04/20 03/04/20 03/04/20 18:02 19:00 23:24 WBC Hgb RBC Hct MCV MCH RDW Plt Count Lymph % (Auto) Lymph # [place] % (Auto) [place] # Lymph # (Auto) [place] # (Auto) Seg Neutrophils % Seg Neutrophils # Seg Neuts % (Manual) Lymphocytes % (Manual) Monocytes % (Manual) Nucleated RBC % Seg Neutrophils # Man Lymphocytes # (Manual) Monocytes # (Manual) Eosinophils # (Manual) Basophils # (Manual) ABG pH POC ABG pCO2 POC ABG pO2 ABG pO2 ABG HCO3 ABG O2 Saturation ABG Base Excess ABG Hemoglobin ABG Oxyhemoglobin ABG Sodium ABG Glucose Oxyhemoglobin Sodium Potassium Chloride Carbon Dioxide BUN Creatinine Glucose POC Glucose 124 H 115 H Calcium Phosphorus Magnesium Direct Bilirubin AST Alkaline Phosphatase Albumin Troponin T C-Reactive Protein Jedwg-6-Umckegjgz PEP Interpretation Lipase 72 H PTH Intact Arterial Blood Glucose Urine WBC (Auto) Urine Creatinine Urine Total Protein ZINA Screen Crossmatch 03/05/20 03/05/20 03/05/20 05:04 05:29 06:00 WBC Hgb RBC Hct MCV MCH RDW Plt Count Lymph % (Auto) Lymph # [place] % (Auto) [place] # Lymph # (Auto) [place] # (Auto) Seg Neutrophils % Seg Neutrophils # Seg Neuts % (Manual) Lymphocytes % (Manual) Monocytes % (Manual) Nucleated RBC % Seg Neutrophils # Man Lymphocytes # (Manual) Monocytes # (Manual) Eosinophils # (Manual) Basophils # (Manual) ABG pH POC ABG pCO2 POC ABG pO2 ABG pO2 62.5 L ABG HCO3 26.4 H ABG O2 Saturation 92.1 L ABG Base Excess ABG Hemoglobin 9.3 L ABG Oxyhemoglobin ABG Sodium ABG Glucose Oxyhemoglobin 89.9 L Sodium Potassium Chloride Carbon Dioxide BUN 54 H Creatinine 5.4 H Glucose 125 H POC Glucose 134 H Calcium Phosphorus Magnesium Direct Bilirubin 0.6 H AST Alkaline Phosphatase 133 H Albumin 2.5 L Troponin T C-Reactive Protein Qjsed-1-Wlcmvbfpd PEP Interpretation Lipase PTH Intact Arterial Blood Glucose Urine WBC (Auto) Urine Creatinine Urine Total Protein ZINA Screen Crossmatch 03/05/20 03/05/20 03/05/20 12:18 18:01 21:39 WBC Hgb RBC Hct MCV MCH RDW Plt Count Lymph % (Auto) Lymph # [place] % (Auto) [place] # Lymph # (Auto) [place] # (Auto) Seg Neutrophils % Seg Neutrophils # Seg Neuts % (Manual) Lymphocytes % (Manual) Monocytes % (Manual) Nucleated RBC % Seg Neutrophils # Man Lymphocytes # (Manual) Monocytes # (Manual) Eosinophils # (Manual) Basophils # (Manual) ABG pH POC ABG pCO2 POC ABG pO2 ABG pO2 ABG HCO3 ABG O2 Saturation ABG Base Excess ABG Hemoglobin ABG Oxyhemoglobin ABG Sodium ABG Glucose Oxyhemoglobin Sodium Potassium Chloride Carbon Dioxide BUN Creatinine Glucose POC Glucose 118 H 108 H 123 H Calcium Phosphorus Magnesium Direct Bilirubin AST Alkaline Phosphatase Albumin Troponin T C-Reactive Protein Xevbj-5-Hnwgibvzz PEP Interpretation Lipase PTH Intact Arterial Blood Glucose Urine WBC (Auto) Urine Creatinine Urine Total Protein ZINA Screen Crossmatch 03/06/20 03/06/20 03/06/20 04:40 04:41 05:44 WBC Hgb RBC Hct MCV MCH RDW Plt Count Lymph % (Auto) Lymph # [place] % (Auto) [place] # Lymph # (Auto) [place] # (Auto) Seg Neutrophils % Seg Neutrophils # Seg Neuts % (Manual) Lymphocytes % (Manual) Monocytes % (Manual) Nucleated RBC % Seg Neutrophils # Man Lymphocytes # (Manual) Monocytes # (Manual) Eosinophils # (Manual) Basophils # (Manual) ABG pH POC ABG pCO2 POC ABG pO2 64.9 L ABG pO2 ABG HCO3 ABG O2 Saturation ABG Base Excess ABG Hemoglobin 9.9 L ABG Oxyhemoglobin 90.5 L ABG Sodium ABG Glucose Oxyhemoglobin Sodium Potassium Chloride 94.7 L Carbon Dioxide BUN 70 H Creatinine 7.1 H Glucose 113 H POC Glucose 134 H Calcium Phosphorus Magnesium Direct Bilirubin AST Alkaline Phosphatase Albumin Troponin T C-Reactive Protein Uriwd-0-Cmpvliqvs PEP Interpretation Lipase PTH Intact Arterial Blood Glucose Urine WBC (Auto) Urine Creatinine Urine Total Protein ZINA Screen Crossmatch 03/06/20 03/06/20 03/06/20 08:54 11:56 18:19 WBC 31.5 H Hgb 8.7 L RBC Hct 27.8 L MCV 75 L MCH 23 L RDW 21.2 H Plt Count 516 H Lymph % (Auto) Lymph # [place] % (Auto) [place] # Lymph # (Auto) [place] # (Auto) Seg Neutrophils % Seg Neutrophils # Seg Neuts % (Manual) 93.0 H Lymphocytes % (Manual) 2.0 L Monocytes % (Manual) Nucleated RBC % Seg Neutrophils # Man 29.3 H Lymphocytes # (Manual) 0.6 L Monocytes # (Manual) Eosinophils # (Manual) 0.6 H Basophils # (Manual) ABG pH POC ABG pCO2 POC ABG pO2 ABG pO2 ABG HCO3 ABG O2 Saturation ABG Base Excess ABG Hemoglobin ABG Oxyhemoglobin ABG Sodium ABG Glucose Oxyhemoglobin Sodium Potassium Chloride Carbon Dioxide BUN Creatinine Glucose POC Glucose 131 H 117 H Calcium Phosphorus Magnesium Direct Bilirubin AST Alkaline Phosphatase Albumin Troponin T C-Reactive Protein Xixth-1-Uqjchnpaj PEP Interpretation Lipase PTH Intact Arterial Blood Glucose Urine WBC (Auto) Urine Creatinine Urine Total Protein ZINA Screen Crossmatch 03/07/20 03/07/20 03/07/20 04:42 05:03 05:03 WBC 26.9 H Hgb 8.3 L RBC 3.50 L Hct 26.6 L MCV 76 L MCH 24 L RDW 21.3 H Plt Count 470 H Lymph % (Auto) Lymph # [place] % (Auto) [place] # Lymph # (Auto) [place] # (Auto) Seg Neutrophils % Seg Neutrophils # Seg Neuts % (Manual) 89.0 H Lymphocytes % (Manual) 4.0 L Monocytes % (Manual) Nucleated RBC % Seg Neutrophils # Man 23.9 H Lymphocytes # (Manual) 1.1 L Monocytes # (Manual) Eosinophils # (Manual) Basophils # (Manual) 0.3 H ABG pH POC ABG pCO2 POC ABG pO2 68.3 L ABG pO2 ABG HCO3 ABG O2 Saturation ABG Base Excess ABG Hemoglobin 9.3 L ABG Oxyhemoglobin ABG Sodium ABG Glucose 112 H Oxyhemoglobin Sodium Potassium Chloride 94.8 L Carbon Dioxide BUN 52 H Creatinine 6.3 H Glucose 106 H POC Glucose Calcium Phosphorus Magnesium Direct Bilirubin AST Alkaline Phosphatase 132 H Albumin 2.5 L Troponin T C-Reactive Protein Tvqjo-7-Whnbxcdwl PEP Interpretation Lipase PTH Intact Arterial Blood Glucose 112 H Urine WBC (Auto) Urine Creatinine Urine Total Protein ZINA Screen Crossmatch 03/07/20 03/07/20 03/07/20 12:08 18:05 23:29 WBC Hgb RBC Hct MCV MCH RDW Plt Count Lymph % (Auto) Lymph # [place] % (Auto) [place] # Lymph # (Auto) [place] # (Auto) Seg Neutrophils % Seg Neutrophils # Seg Neuts % (Manual) Lymphocytes % (Manual) Monocytes % (Manual) Nucleated RBC % Seg Neutrophils # Man Lymphocytes # (Manual) Monocytes # (Manual) Eosinophils # (Manual) Basophils # (Manual) ABG pH POC ABG pCO2 POC ABG pO2 ABG pO2 ABG HCO3 ABG O2 Saturation ABG Base Excess ABG Hemoglobin ABG Oxyhemoglobin ABG Sodium ABG Glucose Oxyhemoglobin Sodium Potassium Chloride Carbon Dioxide BUN Creatinine Glucose POC Glucose 114 H 111 H 118 H Calcium Phosphorus Magnesium Direct Bilirubin AST Alkaline Phosphatase Albumin Troponin T C-Reactive Protein Fkkdu-0-Adclewwoa PEP Interpretation Lipase PTH Intact Arterial Blood Glucose Urine WBC (Auto) Urine Creatinine Urine Total Protein ZINA Screen Crossmatch 03/08/20 03/08/20 03/08/20 04:50 17:45 23:53 WBC Hgb RBC Hct MCV MCH RDW Plt Count Lymph % (Auto) Lymph # [place] % (Auto) [place] # Lymph # (Auto) [place] # (Auto) Seg Neutrophils % Seg Neutrophils # Seg Neuts % (Manual) Lymphocytes % (Manual) Monocytes % (Manual) Nucleated RBC % Seg Neutrophils # Man Lymphocytes # (Manual) Monocytes # (Manual) Eosinophils # (Manual) Basophils # (Manual) ABG pH POC ABG pCO2 POC ABG pO2 ABG pO2 ABG HCO3 ABG O2 Saturation ABG Base Excess ABG Hemoglobin ABG Oxyhemoglobin ABG Sodium ABG Glucose Oxyhemoglobin Sodium Potassium Chloride 95.5 L Carbon Dioxide BUN 52 H Creatinine 6.2 H Glucose 109 H POC Glucose 106 H 106 H Calcium Phosphorus Magnesium Direct Bilirubin AST Alkaline Phosphatase Albumin Troponin T C-Reactive Protein Yterv-2-Dysjyloij PEP Interpretation Lipase PTH Intact Arterial Blood Glucose Urine WBC (Auto) Urine Creatinine Urine Total Protein ZINA Screen Crossmatch 03/09/20 03/09/20 03/09/20 04:00 07:53 18:22 WBC 21.9 H Hgb 7.5 L RBC 3.27 L Hct 24.3 L MCV 74 L MCH 23 L RDW 20.9 H Plt Count 488 H Lymph % (Auto) Lymph # [place] % (Auto) [place] # Lymph # (Auto) [place] # (Auto) Seg Neutrophils % Seg Neutrophils # Seg Neuts % (Manual) Lymphocytes % (Manual) Monocytes % (Manual) Nucleated RBC % Seg Neutrophils # Man Lymphocytes # (Manual) Monocytes # (Manual) Eosinophils # (Manual) Basophils # (Manual) ABG pH POC ABG pCO2 POC ABG pO2 ABG pO2 ABG HCO3 ABG O2 Saturation ABG Base Excess ABG Hemoglobin ABG Oxyhemoglobin ABG Sodium ABG Glucose Oxyhemoglobin Sodium Potassium Chloride 92.8 L Carbon Dioxide BUN 74 H Creatinine 7.8 H Glucose POC Glucose 114 H Calcium Phosphorus Magnesium Direct Bilirubin AST Alkaline Phosphatase Albumin Troponin T C-Reactive Protein Imdks-7-Lywmkkdvt PEP Interpretation Lipase PTH Intact Arterial Blood Glucose Urine WBC (Auto) Urine Creatinine Urine Total Protein ZINA Screen Crossmatch 03/10/20 03/10/20 03/10/20 04:37 04:37 09:53 WBC 16.0 H Hgb 7.1 L RBC 2.99 L Hct 22.4 L MCV 75 L MCH 24 L RDW 21.5 H Plt Count Lymph % (Auto) 9.2 L Lymph # [place] % (Auto) 9.9 H [place] # Lymph # (Auto) [place] # (Auto) 1.6 H Seg Neutrophils % 79.2 H Seg Neutrophils # 12.6 H Seg Neuts % (Manual) Lymphocytes % (Manual) Monocytes % (Manual) Nucleated RBC % Seg Neutrophils # Man Lymphocytes # (Manual) Monocytes # (Manual) Eosinophils # (Manual) Basophils # (Manual) ABG pH POC ABG pCO2 POC ABG pO2 ABG pO2 ABG HCO3 ABG O2 Saturation ABG Base Excess ABG Hemoglobin 7.7 L ABG Oxyhemoglobin ABG Sodium 134.7 L ABG Glucose 103 H Oxyhemoglobin Sodium Potassium Chloride Carbon Dioxide BUN 45 H Creatinine 5.6 H Glucose 108 H POC Glucose Calcium Phosphorus Magnesium Direct Bilirubin AST Alkaline Phosphatase Albumin Troponin T C-Reactive Protein Nazyc-7-Yeuhsaamn PEP Interpretation Lipase PTH Intact Arterial Blood Glucose 103 H Urine WBC (Auto) Urine Creatinine Urine Total Protein ZINA Screen Crossmatch 03/10/20 03/11/20 03/11/20 23:46 02:52 03:25 WBC Hgb RBC Hct MCV MCH RDW Plt Count Lymph % (Auto) Lymph # [place] % (Auto) [place] # Lymph # (Auto) [place] # (Auto) Seg Neutrophils % Seg Neutrophils # Seg Neuts % (Manual) Lymphocytes % (Manual) Monocytes % (Manual) Nucleated RBC % Seg Neutrophils # Man Lymphocytes # (Manual) Monocytes # (Manual) Eosinophils # (Manual) Basophils # (Manual) ABG pH POC ABG pCO2 POC ABG pO2 77.5 L ABG pO2 ABG HCO3 ABG O2 Saturation ABG Base Excess ABG Hemoglobin 8.0 L ABG Oxyhemoglobin ABG Sodium 135.8 L ABG Glucose Oxyhemoglobin Sodium Potassium Chloride Carbon Dioxide BUN Creatinine Glucose POC Glucose 116 H Calcium Phosphorus Magnesium Direct Bilirubin AST Alkaline Phosphatase Albumin Troponin T 0.093 H C-Reactive Protein Ymgoj-0-Swqmfadmt PEP Interpretation Lipase PTH Intact Arterial Blood Glucose Urine WBC (Auto) Urine Creatinine Urine Total Protein ZINA Screen Crossmatch 03/11/20 03/11/20 03/11/20 04:32 04:32 06:16 WBC 22.4 H Hgb 7.8 L RBC 3.32 L Hct 25.0 L MCV 75 L MCH 24 L RDW 21.4 H Plt Count 553 H Lymph % (Auto) Lymph # [place] % (Auto) [place] # Lymph # (Auto) [place] # (Auto) Seg Neutrophils % Seg Neutrophils # Seg Neuts % (Manual) 81.0 H Lymphocytes % (Manual) 8.0 L Monocytes % (Manual) 8.0 H Nucleated RBC % Seg Neutrophils # Man 18.1 H Lymphocytes # (Manual) Monocytes # (Manual) 1.8 H Eosinophils # (Manual) Basophils # (Manual) 0.2 H ABG pH POC ABG pCO2 POC ABG pO2 ABG pO2 ABG HCO3 ABG O2 Saturation ABG Base Excess ABG Hemoglobin ABG Oxyhemoglobin ABG Sodium ABG Glucose Oxyhemoglobin Sodium Potassium Chloride 96.6 L Carbon Dioxide BUN 64 H Creatinine 6.5 H Glucose 101 H POC Glucose 142 H Calcium Phosphorus Magnesium Direct Bilirubin AST 41 H Alkaline Phosphatase Albumin 2.7 L Troponin T C-Reactive Protein Eqgyh-2-Nfofizoss PEP Interpretation Lipase PTH Intact Arterial Blood Glucose Urine WBC (Auto) Urine Creatinine Urine Total Protein ZINA Screen Crossmatch 03/11/20 03/11/20 06:50 07:31 WBC Hgb 7.7 L RBC Hct 23.7 L MCV MCH RDW Plt Count 553 H Lymph % (Auto) Lymph # [place] % (Auto) [place] # Lymph # (Auto) [place] # (Auto) Seg Neutrophils % Seg Neutrophils # Seg Neuts % (Manual) Lymphocytes % (Manual) Monocytes % (Manual) Nucleated RBC % Seg Neutrophils # Man Lymphocytes # (Manual) Monocytes # (Manual) Eosinophils # (Manual) Basophils # (Manual) ABG pH POC ABG pCO2 POC ABG pO2 ABG pO2 67.8 L ABG HCO3 ABG O2 Saturation ABG Base Excess ABG Hemoglobin ABG Oxyhemoglobin ABG Sodium ABG Glucose Oxyhemoglobin Sodium Potassium Chloride Carbon Dioxide BUN Creatinine Glucose POC Glucose Calcium Phosphorus Magnesium Direct Bilirubin AST Alkaline Phosphatase Albumin Troponin T C-Reactive Protein Gieku-2-Mmmvkdqyl PEP Interpretation Lipase PTH Intact Arterial Blood Glucose Urine WBC (Auto) Urine Creatinine Urine Total Protein ZINA Screen Crossmatch Chest x-ray: image reviewed Allied health notes reviewed: RT
--- NOTE | 2020-03-11 11:39 | Consultation ---
<SURENDRA BLANCO - Last Filed: 03/11/20 12:01> History of Present Illness Consult date: 03/11/20 Consult reason: chest pain, elevated troponin History of present illness: This is a 39-year obese old woman with known history of hypertension, hyperlipidemia, noncompliant with medications who was admitted 02/24/20 with hypertensive urgency, abdominal pain and acute pancreatitis. Hospital course complicated with acute kidney injury requiring hemodialysis, severe anemia, Sepsis with intermittent fevers, and respiratory failure. COVID 19 test was negative. An echocardiogram showed a mildly dilated left atrium, moderate to severe LVH but a normal left ventricular systolic function, ejection fraction 60-65%. Overnight, it's reported the patient removed her Bipap. She complained of chest pain, developed respiratory distress and was reintubated. A chest x-ray was norm al. Troponin measurement was mildly elevated, likely in the setting of renal failure. An ECG done shows sinus rhythm with an incomplete LBBB and LVH. Past History Past Medical History: CAD, hypertension, hyperlipidemia, renal failure (Chronic) Past Surgical History: No surgical history Social history: smoking (Former smoker), alcohol abuse (Occasional alcohol) Family history: no significant family history Medications and Allergies Allergies Allergy/AdvReac Type Severity Reaction Status Date / Time No Known Allergies Allergy Unverified 09/05/19 10:15 Home Medications Medication Instructions Recorded Confirmed Last Taken Type Amlodipine Besylate [Norvasc] 10 mg PO DAILY 09/05/19 02/24/20 09/04/19 History Furosemide [Lasix] 20 mg PO QDAY #30 tablet 09/05/19 02/24/20 Unknown Rx Lisinopril [Zestril] 5 mg PO DAILY #30 tablet 09/05/19 02/24/20 Unknown Rx Metoprolol [Lopressor TAB] 25 mg PO BID #60 tablet 09/05/19 02/24/20 Unknown Rx Active Meds: Active Medications Acetaminophen (Tylenol) 650 mg PO Q4H PRN PRN Reason: Pain, Mild (1-3)/ Temp >100. Last Admin: 03/10/20 07:16 Dose: 650 mg Documented by: Albuterol (Proventil) 2.5 mg IH Q4HRT PRN PRN Reason: Shortness Of Breath Albuterol/Ipratropium (Duoneb *Not For Prn Use*) 1 ampul IH Q6HRT [facility] Last Admin: 03/11/20 08:45 Dose: 1 ampul Documented by: Amlodipine Besylate (Amlodipine) 10 mg PO QDAY [facility] Last Admin: 03/11/20 11:03 Dose: 10 mg Documented by: Lipase/Protease/Amylase (Pancreaze Dr 10,500 Unit) 1 each FEEDTUBE PRN PRN PRN Reason: For Clogged Feeding Tube Aspirin (Ecotrin) 325 mg PO QDAY [facility] Last Admin: 03/11/20 10:45 Dose: 325 mg Documented by: Dextrose (D50w (25gm) Syringe) 50 ml IV Q30MIN PRN; Protocol PRN Reason: HYPOGLYCEMIA Last Admin: 03/01/20 00:20 Dose: 10 ml Documented by: Fentanyl (Sublimaze) 50 mcg IV Q10MIN PRN PRN Reason: ANALGESIA Heparin Sodium (Porcine) (Heparin) 5,000 unit SUB-Q Q8HR [facility] Hydralazine HCl (Apresoline) 25 mg PO Q8HR [facility] Last Admin: 03/11/20 09:54 Dose: Not Given Documented by: Hydrophilic Ointment (Vaseline Lip Therapy) 1 applic TP Q2HR PRN PRN Reason: Dry Lips MEROPENEM/NS 1 GRAM/100 ML (Merrem/Ns 1 Gram/100 Ml) 1 gram in 100 mls @ 100 mls/hr IV QPM [facility]; Protocol Last Admin: 03/10/20 17:01 Dose: 100 mls/hr Documented by: Sodium Chloride (Nacl 0.9%) 100 mls @ 999 mls/hr IV NIKOLAY PRN PRN Reason: Hypotension Fentanyl Citrate (Fentanyl Drip Premix) 2,000 mcg in 100 mls @ 4.55 mls/hr IV TITR [facility]; Protocol Last Titration: 03/11/20 10:43 Dose: 4 mcg/kg/hr, 18.2 mls/hr Documented by: Labetalol HCl (Labetalol) 10 mg IV Q4H PRN PRN Reason: Hypertension Last Admin: 03/11/20 03:04 Dose: 10 mg Documented by: Lansoprazole (Prevacid Solutab) 30 mg FEEDTUBE QDAY [facility] Last Admin: 03/11/20 10:46 Dose: 30 mg Documented by: Lorazepam (Ativan) 1 mg IV Q4H PRN PRN Reason: AGITATION Last Admin: 03/11/20 05:25 Dose: 1 mg Documented by: Metoprolol Tartrate (Metoprolol) 25 mg PO BID [facility] Last Admin: 03/11/20 11:03 Dose: 25 mg Documented by: Morphine Sulfate (Morphine) 2 mg IV Q4H PRN PRN Reason: Pain, Moderate (4-6) Multi-Ingred Cream/Lotion/Oil/Oint (Artificial Tears Ophth Oint) 1 applic OU Q4HR PRN PRN Reason: Dry Eye(s) Nitroglycerin (Nitrostat) 0.4 mg SL .Q5MIN PRN PRN Reason: Chest Pain Ondansetron HCl (Zofran) 4 mg IV Q8H PRN PRN Reason: Nausea And Vomiting Last Admin: 02/25/20 23:33 Dose: 4 mg Documented by: Quetiapine Fumarate (Seroquel) 100 mg PO QAM [facility] Last Admin: 03/11/20 10:45 Dose: 100 mg Documented by: Quetiapine Fumarate (Seroquel) 200 mg PO QHS [facility] Last Admin: 03/10/20 21:09 Dose: 200 mg Documented by: Scopolamine (Transderm-Scop) 1 each TD Q3D [facility] Last Admin: 03/10/20 09:07 Dose: 1 each Documented by: Simple Syrup (Simple Syrup) 15 ml FEEDTUBE PRN PRN PRN Reason: Hypoglycemia Simple Syrup (Simple Syrup) 30 ml FEEDTUBE PRN PRN PRN Reason: Hypoglycemia Sodium Bicarbonate (Sodium Bicarbonate) 325 mg FEEDTUBE PRN PRN PRN Reason: For Clogged Feeding Tube Sodium Chloride (Sodium Chloride Flush Syringe 10 Ml) 10 ml IV BID [facility] Last Admin: 03/11/20 10:47 Dose: 10 ml Documented by: Sodium Chloride (Sodium Chloride Flush Syringe 10 Ml) 10 ml IV PRN PRN PRN Reason: LINE FLUSH Last Admin: 03/10/20 09:06 Dose: 10 ml Documented by: Tamsulosin HCl (Flomax) 0.4 mg PO QDAY [facility] Last Admin: 03/11/20 10:45 Dose: 0.4 mg Documented by: Physical Examination Vital Signs Temp Pulse BP 98.9 F 100 H 262/168 02/24/20 02:14 02/24/20 02:14 02/24/20 02:14 General appearance: other (intubated on the vent) Cardiac: Positive: Reg Rate and Rhythm Results 03/11/20 07:31 03/11/20 04:32 Cardiac Enzymes 03/11/20 Range/Units 04:32 AST 41 H (5-40) units/L Coagulation 03/11/20 Range/Units 07:31 PT 14.1 (12.2-14.9) Sec. INR 1.07 (0.87-1.13) APTT 32.0 (24.2-36.6) Sec. CBC 03/11/20 03/11/20 Range/Units 04:32 07:31 WBC 22.4 H (4.5-11.0) K/mm3 RBC 3.32 L (3.65-5.03) M/mm3 Hgb 7.8 L 7.7 L (10.1-14.3) gm/dl Hct 25.0 L 23.7 L (30.3-42.9) % Plt Count 553 H 553 H (140-440) K/mm3 Comprehensive Metabolic Panel 03/11/20 Range/Units 04:32 Sodium 141 (137-145) mmol/L Potassium 4.3 (3.6-5.0) mmol/L Chloride 96.6 L (98-107) mmol/L Carbon Dioxide 23 (22-30) mmol/L BUN 64 H (7-17) mg/dL Creatinine 6.5 H (0.6-1.2) mg/dL Glucose 101 H (65-100) mg/dL Calcium 10.0 (8.4-10.2) mg/dL AST 41 H (5-40) units/L ALT 17 (7-56) units/L Alkaline Phosphatase 103 (35-129) units/L Total Protein 7.8 (6.3-8.2) g/dL Albumin 2.7 L (3.9-5) g/dL Assessment and Plan Nonspecific mild elevation of troponin Respiratory failure COVID 19 test was negative. Acute pancreatitis Hypertension a Acute kidney injury requiring hemodialysis Severe anemia Sepsis Intermittent fevers Echocardiogram showed a mildly dilated left atrium, moderate to severe LVH but a normal left ventricular systolic function, ejection fraction 60-65%. Optimal BP management. Conservative cardiac management for mild nonspecific elevation of troponin, likely in the setting of renal failure. <SAURABH RONDON - Last Filed: 03/12/20 21:03> History of Present Illness History of present illness: I SAW THIS PT & AGREE WITH THE Dx & Tx PLAN Medications and Allergies Active Meds: Active Medications Acetaminophen (Tylenol) 650 mg PO Q4H PRN PRN Reason: Pain, Mild (1-3)/ Temp >100. Last Admin: 03/12/20 10:05 Dose: 650 mg Documented by: Albuterol (Proventil) 2.5 mg IH Q4HRT PRN PRN Reason: Shortness Of Breath Albuterol/Ipratropium (Duoneb *Not For Prn Use*) 1 ampul IH Q6HRT [facility] Last Admin: 03/12/20 20:50 Dose: 1 ampul Documented by: Amlodipine Besylate (Amlodipine) 10 mg PO QDAY [facility] Last Admin: 03/12/20 10:04 Dose: 10 mg Documented by: Lipase/Protease/Amylase (Pancreaze Dr 10,500 Unit) 1 each FEEDTUBE PRN PRN PRN Reason: For Clogged Feeding Tube Aspirin (Ecotrin) 325 mg PO QDAY [facility] Last Admin: 03/12/20 09:42 Dose: 325 mg Documented by: Dextrose (D50w (25gm) Syringe) 50 ml IV Q30MIN PRN; Protocol PRN Reason: HYPOGLYCEMIA Last Admin: 03/01/20 00:20 Dose: 10 ml Documented by: Epoetin Prosper (Procrit) 10,000 unit IV NIKOLAY PRN PRN Reason: hemodialysis Fentanyl (Sublimaze) 50 mcg IV Q10MIN PRN PRN Reason: ANALGESIA Heparin Sodium (Porcine) (Heparin) 5,000 unit SUB-Q Q8HR [facility] Last Admin: 03/12/20 13:11 Dose: 5,000 unit Documented by: Hydralazine HCl (Apresoline) 25 mg PO Q8HR [facility] Last Admin: 03/12/20 15:34 Dose: 25 mg Documented by: Hydrophilic Ointment (Vaseline Lip Therapy) 1 applic TP Q2HR PRN PRN Reason: Dry Lips MEROPENEM/NS 1 GRAM/100 ML (Merrem/Ns 1 Gram/100 Ml) 1 gram in 100 mls @ 100 mls/hr IV QPM [facility]; Protocol Last Admin: 03/12/20 17:20 Dose: 100 mls/hr Documented by: Sodium Chloride (Nacl 0.9%) 100 mls @ 999 mls/hr IV NIKOLAY PRN PRN Reason: Hypotension Fentanyl Citrate (Fentanyl Drip Premix) 2,000 mcg in 100 mls @ 4.55 mls/hr IV TITR [facility]; Protocol Last Titration: 03/12/20 15:03 Dose: 1 mcg/kg/hr, 4.55 mls/hr Documented by: Labetalol HCl (Labetalol) 10 mg IV Q4H PRN PRN Reason: Hypertension Last Admin: 03/11/20 03:04 Dose: 10 mg Documented by: Lansoprazole (Prevacid Solutab) 30 mg FEEDTUBE QDAY [facility] Last Admin: 03/12/20 10:01 Dose: 30 mg Documented by: Lorazepam (Ativan) 1 mg IV Q4H PRN PRN Reason: AGITATION Last Admin: 03/11/20 05:25 Dose: 1 mg Documented by: Metoprolol Tartrate (Metoprolol) 25 mg PO BID [facility] Last Admin: 03/12/20 09:42 Dose: 25 mg Documented by: Morphine Sulfate (Morphine) 2 mg IV Q4H PRN PRN Reason: Pain, Moderate (4-6) Multi-Ingred Cream/Lotion/Oil/Oint (Artificial Tears Ophth Oint) 1 applic OU Q4HR PRN PRN Reason: Dry Eye(s) Nitroglycerin (Nitrostat) 0.4 mg SL .Q5MIN PRN PRN Reason: Chest Pain Ondansetron HCl (Zofran) 4 mg IV Q8H PRN PRN Reason: Nausea And Vomiting Last Admin: 02/25/20 23:33 Dose: 4 mg Documented by: Quetiapine Fumarate (Seroquel) 100 mg PO QAM [facility] Last Admin: 03/12/20 09:44 Dose: 100 mg Documented by: Quetiapine Fumarate (Seroquel) 200 mg PO QHS [facility] Last Admin: 03/11/20 22:42 Dose: 200 mg Documented by: Scopolamine (Transderm-Scop) 1 each TD Q3D [facility] Last Admin: 03/10/20 09:07 Dose: 1 each Documented by: Simple Syrup (Simple Syrup) 15 ml FEEDTUBE PRN PRN PRN Reason: Hypoglycemia Simple Syrup (Simple Syrup) 30 ml FEEDTUBE PRN PRN PRN Reason: Hypoglycemia Sodium Bicarbonate (Sodium Bicarbonate) 325 mg FEEDTUBE PRN PRN PRN Reason: For Clogged Feeding Tube Sodium Chloride (Sodium Chloride Flush Syringe 10 Ml) 10 ml IV BID [facility] Last Admin: 03/12/20 10:26 Dose: 10 ml Documented by: Sodium Chloride (Sodium Chloride Flush Syringe 10 Ml) 10 ml IV PRN PRN PRN Reason: LINE FLUSH Last Admin: 03/10/20 09:06 Dose: 10 ml Documented by: Tamsulosin HCl (Flomax) 0.4 mg PO QDAY [facility] Last Admin: 03/12/20 09:42 Dose: 0.4 mg Documented by: Physical Examination Vital Signs Temp Pulse BP 98.9 F 100 H 262/168 02/24/20 02:14 02/24/20 02:14 02/24/20 02:14 Results 03/11/20 07:31 03/11/20 04:32
--- NOTE | 2020-03-11 12:27 | Progress Note ---
Assessment and Plan Cultures: Urine culture grew 10-100,000 usual xavier. Blood culture 02/26/2020 no growth 02/29/2020 sputum culture: rare usual xavier 03/06/2020 blood culture: no growth 03/07/2020 sputum culture: no growth thus far Assessment: 39 years old female with history of hypertension, previous kidney stone, hyperlipidemia and obesity admitted on 02/24/2020 due to a week history of severe epigastric abdominal pain radiated to the right flank and back: #Acute sepsis: Likely secondary to severe pancreatitis and related complications. Remains critically ill. #Acute severe pancreatitis: Unclear etiology. Initial non-contrasted CT showed no evidence of necrosis or pseudocyst or abscess formation. Repeat CT 03/05 with interval worsening of acute pancreatitis without clear evidence of necrosis, however was done without IV contrast due to her renal function. #Acute renal failure: now requiring dialysis. Nephrology on board. #Acute respiratory hypoxic failure: re-intubated 03/11/2020, back on the vent. #?Alcohol abuse Recommendations: -continue with IV Meropenem, renally dosed, D9 today, probably stop at 14 days depending on clinical status -ongoing fevers likely to due severe pancreatitis Louie Graves MD, FACP [facility] ([facility] C: [phone] O: [phone] F: [phone] Subjective Date of service: 03/11/20 Principal diagnosis: HTNsive urgency; Morbid obesity; Ac. pancreatitis; Abdominal pain Interval history: Afebrile today but due to respiratory distress, re-intubated and back on the vent. Objective - Exam Narrative Exam: Physical Exam: Constitutional: sedated, intubated, on the vent Head, Ears, Nose: Normocephalic, atraumatic. External ears, nose normal Eyes: Conjunctivae/corneas clear. No icterus. No ptosis. Neck: intubated Cardiovascular: S1, S2 + Respiratory: AE fair but reduced in the bases GI: distended, no tenderness, bowel sounds + Musculoskeletal: No pedal edema, no cyanosis. HD cath + Skin: No rash or abscess Hem/Lymphatic: No palpable cervical or supraclavicular nodes. No lymphangitis Psych: no agitation, calm Neurological: sedated, intubated, on the vent - Constitutional Vitals: Vital Signs Temp Pulse Resp BP Pulse Ox 98.5 F 84 20 146/92 99 03/11/20 12:00 03/11/20 12:15 03/11/20 12:15 03/11/20 12:15 03/11/20 12:15 Temperature -Last 24 Hours Temperature 98.5 F Temperature 98.8 F Temperature 99.0 F Temperature 99.0 F Temperature 98.9 F Temperature 98.6 F Temperature 100.2 F - Labs CBC & Chem 7: 03/11/20 07:31 03/11/20 04:32 Labs: Abnormal lab results 03/10/20 03/10/20 03/11/20 Range/Units 09:53 23:46 02:52 WBC (4.5-11.0) K/mm3 RBC (3.65-5.03) M/mm3 Hgb (10.1-14.3) gm/dl Hct (30.3-42.9) % MCV (79-97) fl MCH (28-32) pg RDW (13.2-15.2) % Plt Count (140-440) K/mm3 Seg Neuts % (Manual) (40.0-70.0) % Lymphocytes % (Manual) (13.4-35.0) % Monocytes % (Manual) (0.0-7.3) % Seg Neutrophils # Man (1.8-7.7) K/mm3 Monocytes # (Manual) (0.0-0.8) K/mm3 Basophils # (Manual) (0.0-0.1) K/mm3 POC ABG pO2 (83-108) mmHg ABG pO2 (80.0-90.0) mm Hg ABG Hemoglobin 7.7 L (12.0-17.5) ABG Sodium 134.7 L (136.0-145.0) mmol/L ABG Glucose 103 H (65-95) mg/dL Chloride (98-107) mmol/L BUN (7-17) mg/dL Creatinine (0.6-1.2) mg/dL Glucose (65-100) mg/dL POC Glucose 116 H (70-105) AST (5-40) units/L Troponin T 0.093 H (0.00-0.029) ng/mL Albumin (3.9-5) g/dL Arterial Blood Glucose 103 H (65-95) mg/dL 03/11/20 03/11/20 03/11/20 Range/Units 03:25 04:32 04:32 WBC 22.4 H (4.5-11.0) K/mm3 RBC 3.32 L (3.65-5.03) M/mm3 Hgb 7.8 L (10.1-14.3) gm/dl Hct 25.0 L (30.3-42.9) % MCV 75 L (79-97) fl MCH 24 L (28-32) pg RDW 21.4 H (13.2-15.2) % Plt Count 553 H (140-440) K/mm3 Seg Neuts % (Manual) 81.0 H (40.0-70.0) % Lymphocytes % (Manual) 8.0 L (13.4-35.0) % Monocytes % (Manual) 8.0 H (0.0-7.3) % Seg Neutrophils # Man 18.1 H (1.8-7.7) K/mm3 Monocytes # (Manual) 1.8 H (0.0-0.8) K/mm3 Basophils # (Manual) 0.2 H (0.0-0.1) K/mm3 POC ABG pO2 77.5 L (83-108) mmHg ABG pO2 (80.0-90.0) mm Hg ABG Hemoglobin 8.0 L (12.0-17.5) ABG Sodium 135.8 L (136.0-145.0) mmol/L ABG Glucose (65-95) mg/dL Chloride 96.6 L (98-107) mmol/L BUN 64 H (7-17) mg/dL Creatinine 6.5 H (0.6-1.2) mg/dL Glucose 101 H (65-100) mg/dL POC Glucose (70-105) AST 41 H (5-40) units/L Troponin T (0.00-0.029) ng/mL Albumin 2.7 L (3.9-5) g/dL Arterial Blood Glucose (65-95) mg/dL 03/11/20 03/11/20 03/11/20 Range/Units 06:16 06:50 07:31 WBC (4.5-11.0) K/mm3 RBC (3.65-5.03) M/mm3 Hgb 7.7 L (10.1-14.3) gm/dl Hct 23.7 L (30.3-42.9) % MCV (79-97) fl MCH (28-32) pg RDW (13.2-15.2) % Plt Count 553 H (140-440) K/mm3 Seg Neuts % (Manual) (40.0-70.0) % Lymphocytes % (Manual) (13.4-35.0) % Monocytes % (Manual) (0.0-7.3) % Seg Neutrophils # Man (1.8-7.7) K/mm3 Monocytes # (Manual) (0.0-0.8) K/mm3 Basophils # (Manual) (0.0-0.1) K/mm3 POC ABG pO2 (83-108) mmHg ABG pO2 67.8 L (80.0-90.0) mm Hg ABG Hemoglobin (12.0-17.5) ABG Sodium (136.0-145.0) mmol/L ABG Glucose (65-95) mg/dL Chloride (98-107) mmol/L BUN (7-17) mg/dL Creatinine (0.6-1.2) mg/dL Glucose (65-100) mg/dL POC Glucose 142 H (70-105) AST (5-40) units/L Troponin T (0.00-0.029) ng/mL Albumin (3.9-5) g/dL Arterial Blood Glucose (65-95) mg/dL
[2020-03-11] MEDS: HEPARIN 5,000 UNIT/1 ML VIAL SUB-Q SCH ×2 (15:43→22:42)
--- NOTE | 2020-03-11 15:47 | Gastroenterology Progress Note ---
Assessment and Plan (1) Acute pancreatitis - - unclear etiology for pancreatitis. 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 No bile duct dilation noted on imaging. H/o alcohol use. - multi-organ failure. - on HD. - CT noncontrast on 03/05 with worsening inflammation but no necrosis. - persistent recurrent fever. - wbc trending down. - extubated on 03/10/2020 but reintubated for respiratory distress overnight. Rec - cont with supportive care - nutrition via [place]. - may need MRCP at some point in the future but no need urgently. - ID on board. currently on meropenem. . (2) Altered mental status - reintubated. - will follow. Subjective Date of service: 03/11/20 Principal diagnosis: HTNsive urgency; Morbid obesity; Ac. pancreatitis; Abdominal pain Interval history: Patient was reintubated for respiratory distress overnight. Objective - Constitutional Vitals: Temp Pulse Resp BP Pulse Ox 98.5 F 96 H 20 138/95 100 03/11/20 12:30 03/11/20 15:30 03/11/20 15:15 03/11/20 15:30 03/11/20 15:15 General appearance: no acute distress, other (intubated) - Respiratory Respiratory effort: normal - Cardiovascular Rhythm: regular Heart Sounds: Present: S1 & S2 - Gastrointestinal General gastrointestinal: Present: soft, distended, normal bowel sounds - Integumentary Integumentary: Present: warm - Labs CBC & Chem 7: 03/11/20 07:31 03/11/20 04:32 Labs: Laboratory Results - last 24 hr 03/10/20 03/10/20 03/11/20 17:33 23:46 02:52 WBC RBC Hgb Hct MCV MCH MCHC RDW Plt Count Add Manual Diff Total Counted Seg Neuts % (Manual) Band Neutrophils % Lymphocytes % (Manual) Reactive Lymphs % (Man) Monocytes % (Manual) Eosinophils % (Manual) Basophils % (Manual) Metamyelocytes % Myelocytes % Promyelocytes % Blast Cells % Nucleated RBC % Seg Neutrophils # Man Band Neutrophils # Lymphocytes # (Manual) Abs React Lymphs (Man) Monocytes # (Manual) Eosinophils # (Manual) Basophils # (Manual) Metamyelocytes # Myelocytes # Promyelocytes # Blast Cells # WBC Morphology Hypersegmented Neuts Hyposegmented Neuts Hypogranular Neuts Smudge Cells Toxic Granulation Toxic Vacuolation Dohle Bodies Pelger-Huet Anomaly Maia Rods Platelet Estimate Clumped Platelets Plt Clumps, EDTA Large Platelets Giant Platelets Platelet Satelliting Plt Morphology Comment RBC Morphology Dimorphic RBCs Polychromasia Hypochromasia Poikilocytosis Anisocytosis Microcytosis Macrocytosis Spherocytes Pappenheimer Bodies Sickle Cells Target Cells Tear Drop Cells Ovalocytes Helmet Cells [place] Bodies [employer] Rings [place] Cells Bite Cells Crenated Cell Elliptocytes Acanthocytes (Spur) Rouleaux Hemoglobin C Crystals Schistocytes Malaria parasites Edgardo Bodies Hem Pathologist Commnt PT INR APTT ABG pH POC ABG pCO2 ABG pCO2 POC ABG pO2 ABG pO2 POC ABG HCO3 ABG HCO3 ABG O2 Saturation ABG O2 Content POC ABG Base Excess ABG Base Excess ABG Hemoglobin ABG Carboxyhemoglobin ABG Methemoglobin ABG Sodium ABG Potassium ABG Chloride ABG Glucose Oxyhemoglobin FiO2 Sodium Potassium Chloride Carbon Dioxide Anion Gap BUN Creatinine Estimated GFR BUN/Creatinine Ratio Glucose POC Glucose 104 116 H Calcium Total Bilirubin AST ALT Alkaline Phosphatase Troponin T 0.093 H Total Protein Albumin Albumin/Globulin Ratio Arterial Blood Glucose Arterial Blood Ionized Calcium 03/11/20 03/11/20 03/11/20 03:25 04:32 04:32 WBC 22.4 H RBC 3.32 L Hgb 7.8 L Hct 25.0 L MCV 75 L MCH 24 L MCHC 31 RDW 21.4 H Plt Count 553 H Add Manual Diff Complete Total Counted 100 Seg Neuts % (Manual) 81.0 H Band Neutrophils % 1.0 Lymphocytes % (Manual) 8.0 L Reactive Lymphs % (Man) 0 Monocytes % (Manual) 8.0 H Eosinophils % (Manual) 1.0 Basophils % (Manual) 1.0 Metamyelocytes % 0 Myelocytes % 0 Promyelocytes % 0 Blast Cells % 0 Nucleated RBC % Not Reportable Seg Neutrophils # Man 18.1 H Band Neutrophils # 0.2 Lymphocytes # (Manual) 1.8 Abs React Lymphs (Man) 0.0 Monocytes # (Manual) 1.8 H Eosinophils # (Manual) 0.2 Basophils # (Manual) 0.2 H Metamyelocytes # 0.0 Myelocytes # 0.0 Promyelocytes # 0.0 Blast Cells # 0.0 WBC Morphology Not Reportable Hypersegmented Neuts Not Reportable Hyposegmented Neuts Not Reportable Hypogranular Neuts Not Reportable Smudge Cells Not Reportable Toxic Granulation Not Reportable Toxic Vacuolation Not Reportable Dohle Bodies Not Reportable Pelger-Huet Anomaly Not Reportable Maia Rods Not Reportable Platelet Estimate Consistent w auto Clumped Platelets Not Reportable Plt Clumps, EDTA Not Reportable Large Platelets Not Reportable Giant Platelets Not Reportable Platelet Satelliting Not Reportable Plt Morphology Comment Not Reportable RBC Morphology Not Reportable Dimorphic RBCs Not Reportable Polychromasia Not Reportable Hypochromasia 1+ Poikilocytosis Not Reportable Anisocytosis 1+ Microcytosis Not Reportable Macrocytosis Not Reportable Spherocytes Not Reportable Pappenheimer Bodies Not Reportable Sickle Cells Not Reportable Target Cells Not Reportable Tear Drop Cells Rare Ovalocytes Few Helmet Cells Not Reportable [place] Bodies Not Reportable [employer] Rings Not Reportable [place] Cells Not Reportable Bite Cells Not Reportable Crenated Cell Not Reportable Elliptocytes Not Reportable Acanthocytes (Spur) Not Reportable Rouleaux Not Reportable Hemoglobin C Crystals Not Reportable Schistocytes Not Reportable Malaria parasites Not Reportable Edgardo Bodies Not Reportable Hem Pathologist Commnt No PT INR APTT ABG pH 7.345 POC ABG pCO2 46.6 ABG pCO2 POC ABG pO2 77.5 L ABG pO2 POC ABG HCO3 24.9 ABG HCO3 ABG O2 Saturation ABG O2 Content POC ABG Base Excess -0.9 ABG Base Excess ABG Hemoglobin 8.0 L ABG Carboxyhemoglobin ABG Methemoglobin ABG Sodium 135.8 L ABG Potassium 3.7 ABG Chloride 101.0 ABG Glucose 95 Oxyhemoglobin FiO2 30.0 Sodium 141 Potassium 4.3 Chloride 96.6 L Carbon Dioxide 23 Anion Gap 26 BUN 64 H Creatinine 6.5 H Estimated GFR 9 BUN/Creatinine Ratio 10 Glucose 101 H POC Glucose Calcium 10.0 Total Bilirubin 0.30 AST 41 H ALT 17 Alkaline Phosphatase 103 Troponin T Total Protein 7.8 Albumin 2.7 L Albumin/Globulin Ratio 0.5 Arterial Blood Glucose 95 Arterial Blood Ionized Calcium 4.9 03/11/20 03/11/20 03/11/20 06:16 06:50 07:31 WBC RBC Hgb 7.7 L Hct 23.7 L MCV MCH MCHC RDW Plt Count 553 H Add Manual Diff Total Counted Seg Neuts % (Manual) Band Neutrophils % Lymphocytes % (Manual) Reactive Lymphs % (Man) Monocytes % (Manual) Eosinophils % (Manual) Basophils % (Manual) Metamyelocytes % Myelocytes % Promyelocytes % Blast Cells % Nucleated RBC % Seg Neutrophils # Man Band Neutrophils # Lymphocytes # (Manual) Abs React Lymphs (Man) Monocytes # (Manual) Eosinophils # (Manual) Basophils # (Manual) Metamyelocytes # Myelocytes # Promyelocytes # Blast Cells # WBC Morphology Hypersegmented Neuts Hyposegmented Neuts Hypogranular Neuts Smudge Cells Toxic Granulation Toxic Vacuolation Dohle Bodies Pelger-Huet Anomaly Maia Rods Platelet Estimate Clumped Platelets Plt Clumps, EDTA Large Platelets Giant Platelets Platelet Satelliting Plt Morphology Comment RBC Morphology Dimorphic RBCs Polychromasia Hypochromasia Poikilocytosis Anisocytosis Microcytosis Macrocytosis Spherocytes Pappenheimer Bodies Sickle Cells Target Cells Tear Drop Cells Ovalocytes Helmet Cells [place] Bodies [employer] Rings [place] Cells Bite Cells Crenated Cell Elliptocytes Acanthocytes (Spur) Rouleaux Hemoglobin C Crystals Schistocytes Malaria parasites Edgardo Bodies Hem Pathologist Commnt PT INR APTT ABG pH 7.421 POC ABG pCO2 ABG pCO2 38.1 POC ABG pO2 ABG pO2 67.8 L POC ABG HCO3 ABG HCO3 24.2 ABG O2 Saturation 98.0 ABG O2 Content 20.2 POC ABG Base Excess ABG Base Excess 0.0 ABG Hemoglobin Not Reportable ABG Carboxyhemoglobin 2.2 ABG Methemoglobin 0.1 ABG Sodium ABG Potassium ABG Chloride ABG Glucose Oxyhemoglobin 95.8 FiO2 40 Sodium Potassium Chloride Carbon Dioxide Anion Gap BUN Creatinine Estimated GFR BUN/Creatinine Ratio Glucose POC Glucose 142 H Calcium Total Bilirubin AST ALT Alkaline Phosphatase Troponin T Total Protein Albumin Albumin/Globulin Ratio Arterial Blood Glucose Arterial Blood Ionized Calcium 03/11/20 03/11/20 03/11/20 07:31 11:48 14:31 WBC RBC Hgb Hct MCV MCH MCHC RDW Plt Count Add Manual Diff Total Counted Seg Neuts % (Manual) Band Neutrophils % Lymphocytes % (Manual) Reactive Lymphs % (Man) Monocytes % (Manual) Eosinophils % (Manual) Basophils % (Manual) Metamyelocytes % Myelocytes % Promyelocytes % Blast Cells % Nucleated RBC % Seg Neutrophils # Man Band Neutrophils # Lymphocytes # (Manual) Abs React Lymphs (Man) Monocytes # (Manual) Eosinophils # (Manual) Basophils # (Manual) Metamyelocytes # Myelocytes # Promyelocytes # Blast Cells # WBC Morphology Hypersegmented Neuts Hyposegmented Neuts Hypogranular Neuts Smudge Cells Toxic Granulation Toxic Vacuolation Dohle Bodies Pelger-Huet Anomaly Maia Rods Platelet Estimate Clumped Platelets Plt Clumps, EDTA Large Platelets Giant Platelets Platelet Satelliting Plt Morphology Comment RBC Morphology Dimorphic RBCs Polychromasia Hypochromasia Poikilocytosis Anisocytosis Microcytosis Macrocytosis Spherocytes Pappenheimer Bodies Sickle Cells Target Cells Tear Drop Cells Ovalocytes Helmet Cells [place] Bodies [employer] Rings [place] Cells Bite Cells Crenated Cell Elliptocytes Acanthocytes (Spur) Rouleaux Hemoglobin C Crystals Schistocytes Malaria parasites Edgardo Bodies Hem Pathologist Commnt PT 14.1 INR 1.07 APTT 32.0 ABG pH POC ABG pCO2 ABG pCO2 POC ABG pO2 ABG pO2 POC ABG HCO3 ABG HCO3 ABG O2 Saturation ABG O2 Content POC ABG Base Excess ABG Base Excess ABG Hemoglobin ABG Carboxyhemoglobin ABG Methemoglobin ABG Sodium ABG Potassium ABG Chloride ABG Glucose Oxyhemoglobin FiO2 Sodium Potassium Chloride Carbon Dioxide Anion Gap BUN Creatinine Estimated GFR BUN/Creatinine Ratio Glucose POC Glucose 95 Calcium Total Bilirubin AST ALT Alkaline Phosphatase Troponin T 0.085 H Total Protein Albumin Albumin/Globulin Ratio Arterial Blood Glucose Arterial Blood Ionized Calcium
[2020-03-11 15:59] LABS: Chol/HDL Ratio 5.64 %
[2020-03-11] MEDS: MEROPENEM/NS 1 GRAM/100 ML 1 GRAM/100 ML BAG IV SCH (18:27)
[2020-03-11] MEDS: QUEtiapine 200 MG TAB PO SCH (22:42)
[2020-03-11] MEDS: ACETAMINOPHEN 325 MG TAB PO PRN (23:48)
[2020-03-12] MEDS: IPRATROPIUM/ALBUTEROL SULFATE 3 ML AMPUL.NEB IH SCH ×4 (01:52→20:50)
[2020-03-12] MEDS: fentaNYL DRIP Premix 2,000 MCG/100 ML BAG IV SCH ×4 (01:56→22:41)
--- NOTE | 2020-03-12 03:53 | XRay Report ---
CHEST 1 VIEW INDICATION: follow up respiratory failure COMPARISON: One day prior. FINDINGS: Support devices: Nasogastric tube has been removed. Endotracheal tube and right jugular line position s are unchanged. Heart: Stable. Lungs/Pleura: No acute pulmonary or pleural findings. IMPRESSION: 1. No acute disease and no interval change. Signer Name: Danny Lopez MD Signed: 03/12/2020 3:48 AM Workstation Name: [email or web address]
[2020-03-12] MEDS: HEPARIN 5,000 UNIT/1 ML VIAL SUB-Q SCH ×3 (05:59→22:20)
[2020-03-12] MEDS: hydrALAZINE 25 MG TAB PO SCH ×3 (06:00→22:20)
[2020-03-12] MEDS: ACETAMINOPHEN 325 MG TAB PO PRN ×3 (06:35→22:20)
--- NOTE | 2020-03-12 08:53 | Progress Note ---
Assessment and Plan Assessment * Acute kidney injury attributed to prerenal azotemia/ATN related to pancreatitis vs NSAID induced nephropathy vs PPI --Serologies: ANCA, C3, C4 - negative; ZINA positive * Acute hypoxic respiratory failure * Chest pain --Elevated troponin * Metabolic acidosis * Acute severe pancreatitis * Fever * Accelerated hypertension - resolved * Anemia Plan: * Patient is s/p HD yesterday. Continue MWF schedule for now- UF as tolerated * Monitor SCr trend and UOP for evidence of recovery. Await dsDNA * Cardiology recommendations reviewed - conservative cardiac management for now * GI recommendations reviewed - may need MRCP in future * Vent management per pulm * Continue antiHTN medications * Abx per ID - currently on Meropenem * Hold ACEi for now * Start Epogen TIW prn * Dose medications for renal function * Avoid potential nephrotoxins Subjective Date of service: 03/12/20 Principal diagnosis: HTNsive urgency; Morbid obesity; Ac. pancreatitis; Abdominal pain Interval history: No acute events overnight. Remains intubated. FiO2 30, PEEP 6 Objective - Vital Signs Vital signs: Vital Signs - 12hr 03/11/20 03/11/20 03/11/20 21:00 21:15 21:30 Temperature Pulse Rate 102 H 101 H 99 H Pulse Rate [ Anterior Bilateral Throughout] Pulse Rate [ From Monitor] Respiratory 20 20 20 Rate Respiratory Rate [Abdomen] Respiratory Rate [Anterior Bilateral Throughout] Blood Pressure 143/89 144/83 125/75 O2 Sat by Pulse 99 98 96 Oximetry 03/11/20 03/11/20 03/11/20 21:45 22:00 22:01 Temperature Pulse Rate 100 H 100 H Pulse Rate [ Anterior Bilateral Throughout] Pulse Rate [ From Monitor] Respiratory 20 20 Rate Respiratory 20 Rate [Abdomen] Respiratory Rate [Anterior Bilateral Throughout] Blood Pressure 136/80 153/93 O2 Sat by Pulse 96 99 Oximetry 03/11/20 03/11/20 03/11/20 22:15 22:30 22:41 Temperature Pulse Rate 99 H 100 H 100 H Pulse Rate [ Anterior Bilateral Throughout] Pulse Rate [ From Monitor] Respiratory 20 20 Rate Respiratory Rate [Abdomen] Respiratory Rate [Anterior Bilateral Throughout] Blood Pressure 132/83 130/84 130/84 O2 Sat by Pulse 95 95 Oximetry 03/11/20 03/11/20 03/11/20 22:42 22:45 23:00 Temperature Pulse Rate 100 H 97 H 98 H Pulse Rate [ Anterior Bilateral Throughout] Pulse Rate [ From Monitor] Respiratory 20 20 Rate Respiratory Rate [Abdomen] Respiratory Rate [Anterior Bilateral Throughout] Blood Pressure 130/84 136/84 121/75 O2 Sat by Pulse 93 96 Oximetry 03/11/20 03/11/20 03/11/20 23:15 23:19 23:30 Temperature Pulse Rate 94 H 95 H 96 H Pulse Rate [ Anterior Bilateral Throughout] Pulse Rate [ From Monitor] Respiratory 20 20 20 Rate Respiratory Rate [Abdomen] Respiratory Rate [Anterior Bilateral Throughout] Blood Pressure 133/80 133/80 118/69 O2 Sat by Pulse 98 97 96 Oximetry 03/11/20 03/11/20 03/11/20 23:35 23:45 23:48 Temperature Pulse Rate 95 H 95 H Pulse Rate [ Anterior Bilateral Throughout] Pulse Rate [ From Monitor] Respiratory 20 20 Rate Respiratory Rate [Abdomen] Respiratory Rate [Anterior Bilateral Throughout] Blood Pressure 118/67 115/65 O2 Sat by Pulse 96 96 Oximetry 03/12/20 03/12/20 03/12/20 00:00 00:15 00:30 Temperature 99.8 F H Pulse Rate 95 H 94 H 94 H Pulse Rate [ Anterior Bilateral Throughout] Pulse Rate [ 96 H From Monitor] Respiratory 20 20 20 Rate Respiratory Rate [Abdomen] Respiratory Rate [Anterior Bilateral Throughout] Blood Pressure 111/66 114/65 105/63 O2 Sat by Pulse 96 96 96 Oximetry 03/12/20 03/12/20 03/12/20 00:45 01:00 01:15 Temperature Pulse Rate 92 H 93 H 94 H Pulse Rate [ Anterior Bilateral Throughout] Pulse Rate [ From Monitor] Respiratory 20 19 20 Rate Respiratory Rate [Abdomen] Respiratory Rate [Anterior Bilateral Throughout] Blood Pressure 106/61 107/61 108/60 O2 Sat by Pulse 96 96 96 Oximetry 03/12/20 03/12/20 03/12/20 01:30 01:45 01:53 Temperature Pulse Rate 92 H 89 Pulse Rate [ 99 H Anterior Bilateral Throughout] Pulse Rate [ From Monitor] Respiratory 20 20 Rate Respiratory Rate [Abdomen] Respiratory 20 Rate [Anterior Bilateral Throughout] Blood Pressure 106/61 103/65 O2 Sat by Pulse 96 97 Oximetry 03/12/20 03/12/20 03/12/20 02:00 02:15 02:30 Temperature Pulse Rate 93 H 92 H 94 H Pulse Rate [ Anterior Bilateral Throughout] Pulse Rate [ From Monitor] Respiratory 20 20 20 Rate Respiratory Rate [Abdomen] Respiratory Rate [Anterior Bilateral Throughout] Blood Pressure 109/61 109/61 103/59 O2 Sat by Pulse 95 96 96 Oximetry 03/12/20 03/12/20 03/12/20 02:45 03:00 03:15 Temperature Pulse Rate 96 H 101 H 97 H Pulse Rate [ Anterior Bilateral Throughout] Pulse Rate [ From Monitor] Respiratory 20 20 20 Rate Respiratory Rate [Abdomen] Respiratory Rate [Anterior Bilateral Throughout] Blood Pressure 104/60 113/66 109/67 O2 Sat by Pulse 97 97 97 Oximetry 03/12/20 03/12/20 03/12/20 03:30 03:36 03:41 Temperature 100.6 F H Pulse Rate 96 H 97 H Pulse Rate [ Anterior Bilateral Throughout] Pulse Rate [ From Monitor] Respiratory 20 Rate Respiratory Rate [Abdomen] Respiratory Rate [Anterior Bilateral Throughout] Blood Pressure 111/65 111/65 O2 Sat by Pulse 97 97 Oximetry 03/12/20 03/12/20 03/12/20 03:45 04:00 04:15 Temperature Pulse Rate 95 H 98 H 97 H Pulse Rate [ Anterior Bilateral Throughout] Pulse Rate [ 99 H From Monitor] Respiratory 20 20 20 Rate Respiratory Rate [Abdomen] Respiratory Rate [Anterior Bilateral Throughout] Blood Pressure 118/62 114/65 106/65 O2 Sat by Pulse 97 97 97 Oximetry 03/12/20 03/12/20 03/12/20 04:30 04:45 05:00 Temperature Pulse Rate 97 H 95 H 98 H Pulse Rate [ Anterior Bilateral Throughout] Pulse Rate [ From Monitor] Respiratory 19 19 19 Rate Respiratory Rate [Abdomen] Respiratory Rate [Anterior Bilateral Throughout] Blood Pressure 104/67 110/65 118/72 O2 Sat by Pulse 97 97 97 Oximetry 03/12/20 03/12/20 03/12/20 05:15 05:30 05:45 Temperature Pulse Rate 100 H 109 H 106 H Pulse Rate [ Anterior Bilateral Throughout] Pulse Rate [ From Monitor] Respiratory 19 22 20 Rate Respiratory Rate [Abdomen] Respiratory Rate [Anterior Bilateral Throughout] Blood Pressure 125/71 127/80 131/75 O2 Sat by Pulse 98 98 Oximetry 03/12/20 03/12/20 03/12/20 06:00 06:15 06:30 Temperature Pulse Rate 106 H 103 H 102 H Pulse Rate [ Anterior Bilateral Throughout] Pulse Rate [ From Monitor] Respiratory 21 20 20 Rate Respiratory Rate [Abdomen] Respiratory Rate [Anterior Bilateral Throughout] Blood Pressure 129/73 135/69 124/66 O2 Sat by Pulse 97 99 97 Oximetry 03/12/20 03/12/20 03/12/20 06:45 07:00 07:15 Temperature Pulse Rate 103 H 102 H 102 H Pulse Rate [ Anterior Bilateral Throughout] Pulse Rate [ From Monitor] Respiratory 20 20 20 Rate Respiratory Rate [Abdomen] Respiratory Rate [Anterior Bilateral Throughout] Blood Pressure 117/63 131/64 107/70 O2 Sat by Pulse 97 97 97 Oximetry 03/12/20 03/12/20 03/12/20 07:30 07:45 08:00 Temperature 100.6 F H Pulse Rate 102 H 109 H 102 H Pulse Rate [ Anterior Bilateral Throughout] Pulse Rate [ 104 H From Monitor] Respiratory 20 22 20 Rate Respiratory Rate [Abdomen] Respiratory Rate [Anterior Bilateral Throughout] Blood Pressure 123/63 131/73 115/65 O2 Sat by Pulse 96 97 99 Oximetry 03/12/20 03/12/20 08:09 08:38 Temperature Pulse Rate 99 H Pulse Rate [ 102 H Anterior Bilateral Throughout] Pulse Rate [ From Monitor] Respiratory Rate Respiratory Rate [Abdomen] Respiratory 23 Rate [Anterior Bilateral Throughout] Blood Pressure 115/65 O2 Sat by Pulse 100 Oximetry - General Appearance General appearance: well-developed, well-nourished EENT: ATNC, other (ETT in place) Respiratory: Present: Clear to Ascultation Cardiology: regular, S1S2 Gastrointestinal: hypoactive bowel sounds, no tenderness, distended Integumentary: no rash, warm and dry Musculoskeletal: other (no edema) Psychiatric: cooperative - Lab 03/11/20 07:31 03/11/20 04:32 Most recent lab results ABG pH 7.421 (7.320-7.450) 03/12/20 03:46 ABG pCO2 38.1 mm Hg 03/11/20 06:50 ABG pO2 67.8 mm Hg (80.0-90.0) L 03/11/20 06:50 ABG HCO3 24.2 mmol/L (20.0-26.0) 03/11/20 06:50 ABG O2 Saturation 98.0 % (95.0-99.0) 03/11/20 06:50 Calcium 10.0 mg/dL (8.4-10.2) 03/11/20 04:32 Phosphorus 6.10 mg/dL (2.5-4.5) H 03/01/20 04:37 Magnesium 2.00 mg/dL (1.7-2.3) 03/07/20 05:03 Urine Creatinine 161.0 mg/dL (0.1-20.0) H 02/25/20 22:55 Urine Total Protein 150 mg/dL (5-11.8) H 02/25/20 22:55 Medications & Allergies - Medications Allergies/Adverse Reactions: Allergies No Known Allergies Allergy (Unverified 09/05/19 10:15) Home Medications: Home Medications Medication Instructions Recorded Confirmed Last Taken Type Amlodipine Besylate [Norvasc] 10 mg PO DAILY 09/05/19 02/24/20 09/04/19 History Furosemide [Lasix] 20 mg PO QDAY #30 tablet 09/05/19 02/24/20 Unknown Rx Lisinopril [Zestril] 5 mg PO DAILY #30 tablet 09/05/19 02/24/20 Unknown Rx Metoprolol [Lopressor TAB] 25 mg PO BID #60 tablet 09/05/19 02/24/20 Unknown Rx Active Medications: Generic Name Dose Route Start Last Admin Trade Name Freq PRN Reason Stop Dose Admin Acetaminophen 650 mg 02/26/20 16:23 03/12/20 06:35 Tylenol PO 650 mg Q4H PRN Administration Pain, Mild (1-3)/ Temp >100. Albuterol 2.5 mg 02/27/20 17:55 Proventil IH Q4HRT PRN Shortness Of Breath Albuterol/Ipratropium 1 ampul 02/28/20 12:17 03/12/20 08:16 Duoneb *Not For Prn Use* IH 1 ampul Q6HRT INDU Administration Amlodipine Besylate 10 mg 02/28/20 10:00 03/11/20 11:03 Amlodipine PO 10 mg QDAY INDU Administration Lipase/Protease/Amylase 1 each 03/01/20 08:46 Pancrealivia Davis 10,500 Unit FEEDTUBE PRN PRN For Clogged Feeding Tube Aspirin 325 mg 03/11/20 10:00 03/11/20 10:45 Ecotrin PO 325 mg QDAY INDU Administration Dextrose 50 ml 02/29/20 08:00 03/01/20 00:20 D50w (25gm) Syringe IV 10 ml Q30MIN PRN Administration HYPOGLYCEMIA Protocol Fentanyl 50 mcg 03/11/20 06:01 Sublimaze IV Q10MIN PRN ANALGESIA Heparin Sodium (Porcine) 5,000 unit 03/11/20 14:00 03/12/20 05:59 Heparin SUB-Q 5,000 unit Q8HR INDU Administration Hydralazine HCl 25 mg 03/04/20 14:00 03/12/20 06:00 Apresoline PO 25 mg Q8HR INDU Administration Hydrophilic Ointment 1 applic 03/11/20 06:01 Vaseline Lip Therapy TP Q2HR PRN Dry Lips MEROPENEM/NS 1 GRAM/100 ML 1 gram in 100 mls @ 100 mls/hr 03/03/20 18:00 03/11/20 18:27 Merrem/Ns 1 Gram/100 Ml IV 100 mls/hr QPM INDU Administration Protocol Sodium Chloride 100 mls @ 999 mls/hr 03/08/20 17:05 Nacl 0.9% IV INKOLAY PRN Hypotension Fentanyl Citrate 2,000 mcg in 100 mls @ 4.55 mls/hr 03/11/20 07:00 03/12/20 07:25 Fentanyl Drip Premix IV 4 mcg/kg/hr TITR INDU 18.2 mls/hr Administration Protocol 1 MCG/KG/HR Labetalol HCl 10 mg 02/28/20 09:00 03/11/20 03:04 Labetalol IV 10 mg Q4H PRN Administration Hypertension Lansoprazole 30 mg 03/06/20 10:00 03/11/20 10:46 Prevacid Solutab FEEDTUBE 30 mg QDAY INDU Administration Lorazepam 1 mg 03/10/20 12:00 03/11/20 05:25 Ativan IV 1 mg Q4H PRN Administration AGITATION Metoprolol Tartrate 25 mg 02/28/20 10:00 03/11/20 22:41 Metoprolol PO 25 mg BID INDU Administration Morphine Sulfate 2 mg 03/11/20 05:13 Morphine IV Q4H PRN Pain, Moderate (4-6) Multi-Ingred Cream/Lotion/Oil/Oint 1 applic 03/11/20 06:01 Artificial Tears Ophth Oint OU Q4HR PRN Dry Eye(s) Nitroglycerin 0.4 mg 03/11/20 05:14 Nitrostat SL .Q5MIN PRN Chest Pain Ondansetron HCl 4 mg 02/24/20 06:45 02/25/20 23:33 Zofran IV 4 mg Q8H PRN Administration Nausea And Vomiting Quetiapine Fumarate 100 mg 03/06/20 10:00 03/11/20 10:45 Seroquel PO 100 mg QAM INDU Administration Quetiapine Fumarate 200 mg 03/06/20 22:00 03/11/20 22:42 Seroquel PO 200 mg QHS INDU Administration Scopolamine 1 each 03/04/20 16:00 03/10/20 09:07 Transderm-Scop TD 1 each Q3D INDU Administration Simple Syrup 15 ml 03/01/20 08:46 Simple Syrup FEEDTUBE PRN PRN Hypoglycemia Simple Syrup 30 ml 03/01/20 08:46 Simple Syrup FEEDTUBE PRN PRN Hypoglycemia Sodium Bicarbonate 325 mg 03/01/20 08:46 Sodium Bicarbonate FEEDTUBE PRN PRN For Clogged Feeding Tube Sodium Chloride 10 ml 02/24/20 10:00 03/11/20 22:43 Sodium Chloride Flush Syringe 10 Ml IV 10 ml BID INDU Administration Sodium Chloride 10 ml 02/24/20 06:45 03/10/20 09:06 Sodium Chloride Flush Syringe 10 Ml IV 10 ml PRN PRN Administration LINE FLUSH Tamsulosin HCl 0.4 mg 03/01/20 17:00 03/11/20 10:45 Flomax PO 0.4 mg QDAY INDU Administration
--- NOTE | 2020-03-12 09:22 | Progress Note ---
Assessment and Plan Assessment and plan: --Ac.hypoxic resp. failure /reintubated [03/11/20] Due to acute hypoxic respiratory failure early this morning continue ventilatory support, pulmonary critical following Wean as tolerated and extubate --Acute hypoxic resp failure; intubated 02/29/20/extubated 03/10/20 Reintubated on 03/11/2020 --Chest pain/positive troponins;NSTEMI 2 Probably nonspecific , patient has acute kidney injury on dialysis continue current med management, follow serial cardiac enzymes, follow cardiology evaluation and recommendation EF 60-65% on ECHO --JUANIS/worsening renal function Worsening renal function, Initiated hemodialysis 03/03/2020. Hemodialysis per nephrology --Severe sepsis secondary to pneumonia and pancreatitis; Worsening bibasilar opacities on chest x-ray leukocytosis, tachycardia, tachypnea, fever, infiltrate on chest x-ray. Continue meropenem, follow cultures, ID following. --Persistent fevers; Probably secondary sepsis due to acute pancreatitis Patient is on meropenem Cultures negative to date -- Acute severe pancreatitis Initial non-contrasted CT showed no evidence of necrosis or pseudocyst or abscess formation. Repeat CT 03/05 with interval worsening of acute pancreatitis without clear evidence of necrosis with increased jessica-pancreatic fat stranding and disorganized fluid, GI following -- Bilateral pleural effusions. Etiology secondary to above Compressive atelectasis --Anemia; hemoglobin low stable monitor H&H and transfused total 2 units PRBC Transfuse additional as needed --Severe metabolic encephalopathy Probably secondary alcohol withdrawal symptoms Treat the underlying cause,[facility] protocol, supportive care --Alcohol withdrawal closely monitor , Ativan as needed Continue CIWA protocol --Worsening leukocytosis Secondary to sepsis due to bibasilar pneumonia, acute pancreatitis, ID and GI following -- Hypertensive emergency POA s/p Cardene drip, closely monitor Blood pressures uncontrolled IV labetalol, PRN --Severe metabolic acidosis; Management per nephrology --Severe protein calorie malnutrition and hypoalbuminemia Nutrition supplements, nutrition consult and supportive care --Medical noncompliance Patient was counseled upon admission. -- DVT prophylaxis Patient placed on subcutaneous heparin. --Obesity; BMI 37.9 patient needs weight reduction when medically stable. -- Full code status Follow GI and pulmonary evaluation and recommendations We will closely monitor the patient and adjust the management as needed The high probability of a clinically significant, sudden or life threatening deterioration of the [GI, CVS, renal, respiratory and metabolic] system(s) required my full and direct attention, intervention and personal management. The aggregate critical care time was [35] minutes. This time is in addition to time spent performing reported procedures but includes the following: [x] Data Review and interpretation [x] Patient assessment and monitoring of vital signs [x] Documentation [x] Medication orders and management History Interval history: I have seen and examined the patient at the bedside this morning Patient is more alert and awake slightly agitated No new complaints Intubated on ventilatory support Vital signs Hospitalist Physical - Constitutional Vitals: Temp Pulse Resp BP Pulse Ox 100.6 F H 96 H 20 117/61 97 03/12/20 08:00 03/12/20 09:00 03/12/20 09:00 03/12/20 09:00 03/12/20 09:00 General appearance: Present: no acute distress, well-nourished, obese, other (Intubated) - EENT Eyes: Present: PERRL, EOM intact - Neck Neck: Present: supple, normal ROM - Respiratory Respiratory effort: normal Respiratory: bilateral: diminished, negative: rales, rhonchi, wheezing - Cardiovascular Rhythm: regular Heart Sounds: Present: S1 & S2 - Extremities Extremities: no ischemia Extremity abnormal: edema - Abdominal General gastrointestinal: soft, non-tender, non-distended, normal bowel sounds - Integumentary Integumentary: Present: clear, warm - Psychiatric Psychiatric: appropriate mood/affect, cooperative - Neurologic Neurologic: other (Intubated on ventilatory support) HEART Score - HEART Score Troponin: Troponin T 0.085 ng/mL (0.00-0.029) H 03/11/20 14:31 Results - Labs CBC & Chem 7: 03/11/20 07:31 03/11/20 04:32 Labs: Laboratory Last Values WBC 22.4 K/mm3 (4.5-11.0) H 03/11/20 04:32 RBC 3.32 M/mm3 (3.65-5.03) L 03/11/20 04:32 Hgb 7.7 gm/dl (10.1-14.3) L 03/11/20 07:31 Hct 23.7 % (30.3-42.9) L 03/11/20 07:31 MCV 75 fl (79-97) L 03/11/20 04:32 MCH 24 pg (28-32) L 03/11/20 04:32 MCHC 31 % (30-34) 03/11/20 04:32 RDW 21.4 % (13.2-15.2) H 03/11/20 04:32 Plt Count 553 K/mm3 (140-440) H 03/11/20 07:31 Lymph % (Auto) 9.2 % (13.4-35.0) L 03/10/20 04:37 [place] % (Auto) 9.9 % (0.0-7.3) H 03/10/20 04:37 Eos % (Auto) 1.3 % (0.0-4.3) 03/10/20 04:37 Baso % (Auto) 0.4 % (0.0-1.8) 03/10/20 04:37 Lymph # (Auto) 1.5 K/mm3 (1.2-5.4) 03/10/20 04:37 [place] # (Auto) 1.6 K/mm3 (0.0-0.8) H 03/10/20 04:37 Eos # (Auto) 0.2 K/mm3 (0.0-0.4) 03/10/20 04:37 Baso # (Auto) 0.1 K/mm3 (0.0-0.1) 03/10/20 04:37 Add Manual Diff Complete 03/11/20 04:32 Total Counted 100 03/11/20 04:32 Seg Neutrophils % 79.2 % (40.0-70.0) H 03/10/20 04:37 Seg Neuts % (Manual) 81.0 % (40.0-70.0) H 03/11/20 04:32 Band Neutrophils % 1.0 % 03/11/20 04:32 Lymphocytes % (Manual) 8.0 % (13.4-35.0) L 03/11/20 04:32 Reactive Lymphs % (Man) 0 % 03/11/20 04:32 Monocytes % (Manual) 8.0 % (0.0-7.3) H 03/11/20 04:32 Eosinophils % (Manual) 1.0 % (0.0-4.3) 03/11/20 04:32 Basophils % (Manual) 1.0 % (0.0-1.8) 03/11/20 04:32 Metamyelocytes % 0 % 03/11/20 04:32 Myelocytes % 0 % 03/11/20 04:32 Promyelocytes % 0 % 03/11/20 04:32 Blast Cells % 0 % 03/11/20 04:32 Nucleated RBC % Not Reportable 03/11/20 04:32 Seg Neutrophils # 12.6 K/mm3 (1.8-7.7) H 03/10/20 04:37 Seg Neutrophils # Man 18.1 K/mm3 (1.8-7.7) H 03/11/20 04:32 Band Neutrophils # 0.2 K/mm3 03/11/20 04:32 Lymphocytes # (Manual) 1.8 K/mm3 (1.2-5.4) 03/11/20 04:32 Abs React Lymphs (Man) 0.0 K/mm3 03/11/20 04:32 Monocytes # (Manual) 1.8 K/mm3 (0.0-0.8) H 03/11/20 04:32 Eosinophils # (Manual) 0.2 K/mm3 (0.0-0.4) 03/11/20 04:32 Basophils # (Manual) 0.2 K/mm3 (0.0-0.1) H 03/11/20 04:32 Metamyelocytes # 0.0 K/mm3 03/11/20 04:32 Myelocytes # 0.0 K/mm3 03/11/20 04:32 Promyelocytes # 0.0 K/mm3 03/11/20 04:32 Blast Cells # 0.0 K/mm3 03/11/20 04:32 WBC Morphology Not Reportable 03/11/20 04:32 Hypersegmented Neuts Not Reportable 03/11/20 04:32 Hyposegmented Neuts Not Reportable 03/11/20 04:32 Hypogranular Neuts Not Reportable 03/11/20 04:32 Smudge Cells Not Reportable 03/11/20 04:32 Toxic Granulation Not Reportable 03/11/20 04:32 Toxic Vacuolation Not Reportable 03/11/20 04:32 Dohle Bodies Not Reportable 03/11/20 04:32 Pelger-Huet Anomaly Not Reportable 03/11/20 04:32 Maia Rods Not Reportable 03/11/20 04:32 Platelet Estimate Consistent w auto 03/11/20 04:32 Clumped Platelets Not Reportable 03/11/20 04:32 Plt Clumps, EDTA Not Reportable 03/11/20 04:32 Large Platelets Not Reportable 03/11/20 04:32 Giant Platelets Not Reportable 03/11/20 04:32 Platelet Satelliting Not Reportable 03/11/20 04:32 Plt Morphology Comment Not Reportable 03/11/20 04:32 RBC Morphology Not Reportable 03/11/20 04:32 Dimorphic RBCs Not Reportable 03/11/20 04:32 Polychromasia Not Reportable 03/11/20 04:32 Hypochromasia 1+ 03/11/20 04:32 Poikilocytosis Not Reportable 03/11/20 04:32 Anisocytosis 1+ 03/11/20 04:32 Microcytosis Not Reportable 03/11/20 04:32 Macrocytosis Not Reportable 03/11/20 04:32 Spherocytes Not Reportable 03/11/20 04:32 Pappenheimer Bodies Not Reportable 03/11/20 04:32 Sickle Cells Not Reportable 03/11/20 04:32 Target Cells Not Reportable 03/11/20 04:32 Tear Drop Cells Rare 03/11/20 04:32 Ovalocytes Few 03/11/20 04:32 Helmet Cells Not Reportable 03/11/20 04:32 [place] Bodies Not Reportable 03/11/20 04:32 Beulah Rings Not Reportable 03/11/20 04:32 Mirna Cells Not Reportable 03/11/20 04:32 Bite Cells Not Reportable 03/11/20 04:32 Crenated Cell Not Reportable 03/11/20 04:32 Elliptocytes Not Reportable 03/11/20 04:32 Acanthocytes (Spur) Not Reportable 03/11/20 04:32 Rouleaux Not Reportable 03/11/20 04:32 Hemoglobin C Crystals Not Reportable 03/11/20 04:32 Schistocytes Not Reportable 03/11/20 04:32 Malaria parasites Not Reportable 03/11/20 04:32 Edgardo Bodies Not Reportable 03/11/20 04:32 Hem Pathologist Commnt No 03/11/20 04:32 PT 14.1 Sec. (12.2-14.9) 03/11/20 07:31 INR 1.07 (0.87-1.13) 03/11/20 07:31 APTT 32.0 Sec. (24.2-36.6) 03/11/20 07:31 ABG pH 7.421 (7.320-7.450) 03/12/20 03:46 POC ABG pCO2 41.9 mmHg (32.0-48.0) 03/12/20 03:46 ABG pCO2 38.1 mm Hg 03/11/20 06:50 POC ABG pO2 78.3 mmHg (83-108) L 03/12/20 03:46 ABG pO2 67.8 mm Hg (80.0-90.0) L 03/11/20 06:50 POC ABG HCO3 26.6 03/12/20 03:46 ABG HCO3 24.2 mmol/L (20.0-26.0) 03/11/20 06:50 ABG O2 Saturation 98.0 % (95.0-99.0) 03/11/20 06:50 ABG O2 Content 20.2 (0.0-44) 03/11/20 06:50 POC ABG Base Excess 2.0 03/12/20 03:46 ABG Base Excess 0.0 mmol/L (-2.0-3.0) 03/11/20 06:50 ABG Hemoglobin 7.9 (12.0-17.5) L 03/12/20 03:46 ABG Oxyhemoglobin 90.5 (94-98) L 03/06/20 04:41 ABG Carboxyhemoglobin 2.2 % (0.0-5.0) 03/11/20 06:50 ABG Methemoglobin 0.1 % (0.0-1.5) 03/11/20 06:50 ABG Sodium 134.8 mmol/L (136.0-145.0) L 03/12/20 03:46 ABG Potassium 3.9 mmol/L (3.40-4.50) 03/12/20 03:46 ABG Chloride 100.0 mmol/L (98-107) 03/12/20 03:46 ABG Glucose 82 mg/dL (65-95) 03/12/20 03:46 Oxyhemoglobin 95.8 % (95.0-99.0) 03/11/20 06:50 Carboxyhemoglobin 1 (0.5-1.5) 03/06/20 04:41 FiO2 30.0 03/12/20 03:46 Sodium 141 mmol/L (137-145) 03/11/20 04:32 Potassium 4.3 mmol/L (3.6-5.0) 03/11/20 04:32 Chloride 96.6 mmol/L (98-107) L 03/11/20 04:32 Carbon Dioxide 23 mmol/L (22-30) 03/11/20 04:32 Anion Gap 26 mmol/L 03/11/20 04:32 BUN 64 mg/dL (7-17) H 03/11/20 04:32 Creatinine 6.5 mg/dL (0.6-1.2) H 03/11/20 04:32 Estimated GFR 9 ml/min 03/11/20 04:32 BUN/Creatinine Ratio 10 % 03/11/20 04:32 Glucose 101 mg/dL (65-100) H 03/11/20 04:32 POC Glucose 93 (70-105) 03/12/20 05:14 Lactic Acid 0.90 mmol/L (0.7-2.0) 02/27/20 19:33 Calcium 10.0 mg/dL (8.4-10.2) 03/11/20 04:32 Phosphorus 6.10 mg/dL (2.5-4.5) H 03/01/20 04:37 Magnesium 2.00 mg/dL (1.7-2.3) 03/07/20 05:03 Total Bilirubin 0.30 mg/dL (0.1-1.2) 03/11/20 04:32 Direct Bilirubin 0.6 mg/dL (0-0.2) H 03/05/20 06:00 Indirect Bilirubin 0.3 mg/dL 03/05/20 06:00 AST 41 units/L (5-40) H 03/11/20 04:32 ALT 17 units/L (7-56) 03/11/20 04:32 Alkaline Phosphatase 103 units/L (35-129) 03/11/20 04:32 Troponin T 0.085 ng/mL (0.00-0.029) H 03/11/20 14:31 C-Reactive Protein 36.50 mg/dL (0.00-1.30) H 03/01/20 11:06 Serum Total Protein 6.3 g/dL (6.1-8.1) 02/26/20 04:39 Total Protein 7.8 g/dL (6.3-8.2) 03/11/20 04:32 Albumin 2.7 g/dL (3.9-5) L 03/11/20 04:32 Albumin/Globulin Ratio 0.5 % 03/11/20 04:32 Cyzsn-4-Dolnoxbya 0.7 g/dL (0.2-0.3) H 02/26/20 04:39 Sloox-1-Lecmxycce 0.8 g/dL (0.5-0.9) 02/26/20 04:39 Beta Globulins 0.4 g/dL (0.2-0.5) 02/26/20 04:39 Gamma Globulins 1.2 g/dL (0.8-1.7) 02/26/20 04:39 Abnorm Protein Band 1 see below 02/26/20 04:39 PEP Interpretation see below H 02/26/20 04:39 Triglycerides 247 mg/dL (2-149) H 03/11/20 14:31 Cholesterol 158 mg/dL (50-199) 03/11/20 14:31 LDL Cholesterol Direct 80 mg/dL (50-130) 03/11/20 14:31 HDL Cholesterol 28 mg/dL (40-59) L 03/11/20 14:31 Cholesterol/HDL Ratio 5.64 % 03/11/20 14:31 Lipase 72 units/L (13-60) H 03/04/20 19:00 HCG, Qual Negative (Negative) 02/24/20 02:53 PTH Intact 911.3 pg/mL (15-65) H 02/26/20 08:15 Arterial Blood Glucose 82 mg/dL (65-95) 03/12/20 03:46 Arterial Blood Ionized Calcium 4.8 mg/dL (4.6-5.3) 03/12/20 03:46 Urine Color Yellow (Yellow) 02/24/20 Unknown Urine Turbidity Clear (Clear) 02/24/20 Unknown Urine pH 6.0 (5.0-7.0) 02/24/20 Unknown Ur Specific [place] 1.020 (1.003-1.030) 02/24/20 Unknown Urine Protein >500 mg/dL (Negative) 02/24/20 Unknown Urine Glucose (UA) 50 mg/dL (Negative) 02/24/20 Unknown Urine Ketones Neg mg/dL (Negative) 02/24/20 Unknown Urine Blood Lg (Negative) 02/24/20 Unknown Urine Nitrite Neg (Negative) 02/24/20 Unknown Urine Bilirubin Neg (Negative) 02/24/20 Unknown Urine Urobilinogen < 2.0 mg/dL (<2.0) 02/24/20 Unknown Ur Leukocyte Esterase Neg (Negative) 02/24/20 Unknown Urine WBC (Auto) 11.0 /HPF (0.0-6.0) H 02/24/20 Unknown Urine RBC (Auto) 149.0 /HPF (0.0-6.0) 02/24/20 Unknown U Epithel Cells (Auto) 5.0 /HPF (0-13.0) 02/24/20 Unknown Urine Bacteria (Auto) 1+ /HPF (Negative) 02/24/20 Unknown Urine Mucus Few /HPF 02/24/20 Unknown Urine Creatinine 161.0 mg/dL (0.1-20.0) H 02/25/20 22:55 Protein/Creatinin Ratio 0.93 02/25/20 22:55 Urine Total Protein 150 mg/dL (5-11.8) H 02/25/20 22:55 ZINA Screen Positive (Negative) H 02/26/20 04:39 Proteinase 3 (PR3) Ab <1.0 AI (<1.0) 02/26/20 04:39 Myeloperoxidase Ab <1.0 AI (<1.0) 02/26/20 04:39 Complement C3 153 mg/dL (83-193) 02/26/20 04:39 Complement C4 35 mg/dL (15-57) 02/26/20 04:39 Coronavirus (PCR) Negative (Negative) 03/09/20 09:12 Hepatitis A IgM Ab Non-reactive (NonReactive) 03/03/20 12:34 Hep Bs Antigen Non-reactive (Negative) 03/03/20 12:34 Hep B Core IgM Ab Non-reactive (NonReactive) 03/03/20 12:34 Hepatitis C Antibody Non-reactive (NonReactive) 03/03/20 12:34 Blood Type AB POSITIVE 03/01/20 18:30 Antibody Screen Negative 03/01/20 18:30 Crossmatch See Detail 03/01/20 18:30 Microbiology: Microbiology 03/06/20 18:18 Peripheral/Venous Blood Culture - Final NO GROWTH AFTER 5 DAYS 03/11/20 09:25 Tracheal Aspirate Sputum Culture - Preliminary - Diagnostic Impressions Diagnostic Impressions: Echocardiogram 02/26/20 09:11 Transthoracic Echocardiogram Indication: Cardiomegaly BP: 149/92 HR: 122 Conclusions *Global left ventricular systolic function is normal. *The estimated ejection fraction is 60-65%. *Moderate to severe concentric left ventricular hypertrophy is observed. *The left atrium is mild to moderately dilated. *The aortic valve leaflets are moderately thickened. *A mean gradient of 22.39 mmHg across the outflow tract is likely not due to but hyperdynamic flow and LVH. *There is trace tricuspid regurgitation. Findings Left Ventricle: The left ventricular chamber size is normal. Moderate to severe concentric left ventricular hypertrophy is observed. Global left ventricular systolic function is normal. The estimated ejection fraction is 60-65%. Left Atrium: The left atrium is mild to moderately dilated. Right Ventricle: The right ventricular cavity size is normal. The right ventricular global systolic function is normal. Right Atrium: The right atrial cavity size is normal. Aortic Valve: The aortic valve leaflets are moderately thickened. There is no evidence of aortic regurgitation. The mean gradient of the aortic valve is 22.39 mmHg. Mitral Valve: The mitral valve leaflets are mildly thickened. There is trace of mitral regurgitation. There is no evidence of mitral stenosis. Tricuspid Valve: There is trace tricuspid regurgitation. No pulmonary hypertension is noted. Pulmonic Valve: There is trace pulmonic regurgitation. Pericardium: There is no pericardial effusion. Aorta: There is no dilatation of the ascending aorta. There is no dilatation of the aortic root. Venous: The inferior vena cava appears normal in size. Measurements Chambers 2D Name Value Normal Range IVSd (2D) 1.8 cm (0.6 - 1.1) LVPWd (2D) 1.74 cm (0.6 - 1.1) LVIDd (2D) 4.57 cm (3.7 - 5.6) LVIDs (2D) 2.73 cm (2 - 3.8) LV FS (2D) 40.27 % - EF Teichholz (2D) 71.04 % - Ao root diameter (2D) 2.79 cm (2 - 3.7) Volumes/Mass Name Value Normal Range LA ESV SP 4CH (A/L) 54.18 ml - LA ESV SP 2CH (A/L) 61.84 ml - LA ESV BP (A/L) 58.1 ml - LA ESV BP (A/L) index 30.74 ml/m2 - LA ESV SP 4CH (MOD) 52.89 ml - LA ESV SP 2CH (MOD) 60.65 ml - LA ESV BP (MOD) 56.77 ml - LA ESV BP (MOD) index 30.04 ml/m2 - LV EDV SP 4CH (MOD) 164.2 ml - LV ESV SP 4CH (MOD) 58.04 ml - EF SP 4CH (MOD) 64.65 % - Diastolic/Systolic Function Name Value Normal Range MV E-wave Vmax 1.38 m/sec - MV deceleration time 92.78 msec - MV A-wave Vmax 1.44 m/sec - MV E:A ratio 0.95 ratio - Aortic Valve Name Value Normal Range AV Vmax 3.08 m/sec - AV VTI 36.74 cm - AV peak gradient 37.98 mmHg - AV mean gradient 22.39 mmHg - LVOT diameter 2.01 cm - LVOT Vmax 2.45 m/sec - LVOT VTI 29.85 cm - LVOT peak gradient 24.04 mmHg - LVOT mean gradient 11.11 mmHg - SV LVOT 94.73 ml - JADA (continuity Vmax) 2.52 cm2 - JADA (continuity VTI) 2.58 cm2 - Ascending Ao 2.64 cm - Mitral Valve Name Value Normal Range MV PHT 37.88 msec - MVA (PHT) 5.81 cm2 - Tricuspid Valve Name Value Normal Range IVC diameter 1.93 cm (1.2 - 2.3) Pulmonic Valve/Qp:Qs Name Value Normal Range PV Vmax 2.83 m/sec - PV VTI 45.88 cm - PV peak gradient 32.06 mmHg - PV mean gradient 16.11 mmHg - NH end-diastolic Vmax 0.81 m/sec - RVOT Vmax 1.82 m/sec - RVOT VTI 25.12 cm - RVOT peak gradient 13.3 mmHg - Franks/IV: Voiding Method Incontinent IV Catheter Type [Right VAS Cath Internal Jugular] IV Catheter Type [Left Upper INT / Saline Lock arm] IV Catheter Type [Right Upper INT / Saline Lock arm] IV Catheter Type [Right INT / Saline Lock Forearm] IV Catheter Type [Right Wrist] Peripheral IV IV Catheter Type [Right Peripheral IV Antecubital] Active Medications - Current Medications Current Medications: Generic Name Dose Route Start Last Admin Trade Name Freq PRN Reason Stop Dose Admin Acetaminophen 650 mg 02/26/20 16:23 03/12/20 06:35 Tylenol PO 650 mg Q4H PRN Administration Pain, Mild (1-3)/ Temp >100. Albuterol 2.5 mg 02/27/20 17:55 Proventil IH Q4HRT PRN Shortness Of Breath Albuterol/Ipratropium 1 ampul 02/28/20 12:17 03/12/20 08:16 Duoneb *Not For Prn Use* IH 1 ampul Q6HRT INDU Administration Amlodipine Besylate 10 mg 02/28/20 10:00 03/11/20 11:03 Amlodipine PO 10 mg QDAY INDU Administration Lipase/Protease/Amylase 1 each 03/01/20 08:[address] 10,500 Unit FEEDTUBE PRN PRN For Clogged Feeding Tube Aspirin 325 mg 03/11/20 10:00 03/11/20 10:45 Ecotrin PO 325 mg QDAY INDU Administration Dextrose 50 ml 02/29/20 08:00 03/01/20 00:20 D50w (25gm) Syringe IV 10 ml Q30MIN PRN Administration HYPOGLYCEMIA Protocol Fentanyl 50 mcg 03/11/20 06:01 Sublimaze IV Q10MIN PRN ANALGESIA Heparin Sodium (Porcine) 5,000 unit 03/11/20 14:00 03/12/20 05:59 Heparin SUB-Q 5,000 unit Q8HR INDU Administration Hydralazine HCl 25 mg 03/04/20 14:00 03/12/20 06:00 Apresoline PO 25 mg Q8HR INDU Administration Hydrophilic Ointment 1 applic 03/11/20 06:01 Vaseline Lip Therapy TP Q2HR PRN Dry Lips MEROPENEM/NS 1 GRAM/100 ML 1 gram in 100 mls @ 100 mls/hr 03/03/20 18:00 03/11/20 18:27 Merrem/Ns 1 Gram/100 Ml IV 100 mls/hr QPM INDU Administration Protocol Sodium Chloride 100 mls @ 999 mls/hr 03/08/20 17:05 Nacl 0.9% IV NIKOLAY PRN Hypotension Fentanyl Citrate 2,000 mcg in 100 mls @ 4.55 mls/hr 03/11/20 07:00 03/12/20 07:25 Fentanyl Drip Premix IV 4 mcg/kg/hr TITR INDU 18.2 mls/hr Administration Protocol 1 MCG/KG/HR Labetalol HCl 10 mg 02/28/20 09:00 03/11/20 03:04 Labetalol IV 10 mg Q4H PRN Administration Hypertension Lansoprazole 30 mg 03/06/20 10:00 03/11/20 10:46 Prevacid Solutab FEEDTUBE 30 mg QDAY INDU Administration Lorazepam 1 mg 03/10/20 12:00 03/11/20 05:25 Ativan IV 1 mg Q4H PRN Administration AGITATION Metoprolol Tartrate 25 mg 02/28/20 10:00 03/11/20 22:41 Metoprolol PO 25 mg BID INDU Administration Morphine Sulfate 2 mg 03/11/20 05:13 Morphine IV Q4H PRN Pain, Moderate (4-6) Multi-Ingred Cream/Lotion/Oil/Oint 1 applic 03/11/20 06:01 Artificial Tears Ophth Oint OU Q4HR PRN Dry Eye(s) Nitroglycerin 0.4 mg 03/11/20 05:14 Nitrostat SL .Q5MIN PRN Chest Pain Ondansetron HCl 4 mg 02/24/20 06:45 02/25/20 23:33 Zofran IV 4 mg Q8H PRN Administration Nausea And Vomiting Quetiapine Fumarate 100 mg 03/06/20 10:00 03/11/20 10:45 Seroquel PO 100 mg QAM INDU Administration Quetiapine Fumarate 200 mg 03/06/20 22:00 03/11/20 22:42 Seroquel PO 200 mg QHS INDU Administration Scopolamine 1 each 03/04/20 16:00 03/10/20 09:07 Transderm-Scop TD 1 each Q3D INDU Administration Simple Syrup 15 ml 03/01/20 08:46 Simple Syrup FEEDTUBE PRN PRN Hypoglycemia Simple Syrup 30 ml 03/01/20 08:46 Simple Syrup FEEDTUBE PRN PRN Hypoglycemia Sodium Bicarbonate 325 mg 03/01/20 08:46 Sodium Bicarbonate FEEDTUBE PRN PRN For Clogged Feeding Tube Sodium Chloride 10 ml 02/24/20 10:00 03/11/20 22:43 Sodium Chloride Flush Syringe 10 Ml IV 10 ml BID INDU Administration Sodium Chloride 10 ml 02/24/20 06:45 03/10/20 09:06 Sodium Chloride Flush Syringe 10 Ml IV 10 ml PRN PRN Administration LINE FLUSH Tamsulosin HCl 0.4 mg 03/01/20 17:00 03/11/20 10:45 Flomax PO 0.4 mg QDAY INDU Administration Nutrition/Malnutrition Assess - Dietary Evaluation Nutrition/Malnutrition Findings: Nutrition Notes Start: 02/24/20 13:42 Freq: Status: Active Protocol: Document 03/11/20 12:07 AVINASH (Rec: 03/11/20 12:12 AVINASH [id number]) Co-Sign 03/11/20 12:07 Nutrition Notes Initial or Follow up Reassessment Current Diagnosis Acute Kidney Injury,Sepsis, Hypertension,Respiratory Failure,Hyperlipidemia Other Pertinent Diagnosis Acute pancreatitis, HD Current Diet Nepro 1.8 at 35ml/hr Labs/Tests BUN 64 Cr 6.5 BG 101 Pertinent Medications Reviewed Height 5 ft 1 in Weight 91 kg Ethel Body Weight (kg) 47.72 BMI 37.9 Weight Status Obese Subjective/Other Information F/U for stable TF. TF not running at time of visit. Per RN, pt was reintubated this AM and plans to reinsert NG tube today. Pt receiving HD today. Percent of energy/protein needs met: 0%/0% Burn Absent Trauma Absent GI Symptoms None Current % PO Negligible Minimum of two criteria No Fluid Accumulation Moderate to Severe (severe) #2 Nutrition Diagnosis Inadequate oral intake Diagnosis Progress(for reassessment Continues documentation) #1 Nutrition Diagnosis Food and nutrition-related knowledge deficit Diagnosis Progress(for reassessment Continues documentation) Is patient on ventilator? Yes Is Patient Ambulatory and/or Out of Bed No REE-([place]-St. Jeor-confined to bed) 1823.604 Kcal/Kg value to use for calculation 16 Approximate Energy Requirements Using 1456 kcal/Kg Calculation Used for Recommendations Kcal/kg Additional Notes Pro: 96g (>2g/kg IBW) Fluid: 1ml/kcal Nutrition Intervention Change Diet Order: Continue TF Nutrition Support: Nepro 1.8 at 35ml/hr Flush 150ml q4h Kcal 1,512 Protein (gm) 68 Fluid (mL) 611 Goal #1 TF tolerance Goal #2 Meet at least 80% of energy and protein needs via TF Anticipated Discharge Needs: Undetermined at this time Follow-Up By: 03/13/20 Additional Comments F/U for TF restart/tolerance
[2020-03-12] MEDS: TAMSULOSIN 0.4 MG CAP PO SCH (09:42)
[2020-03-12] MEDS: ASPIRIN EC 325 MG TAB PO SCH (09:42)
[2020-03-12] MEDS: METOPROLOL TARTRATE 25 MG TAB PO SCH ×2 (09:42→22:20)
[2020-03-12] MEDS: QUEtiapine 100 MG TAB PO SCH (09:44)
[2020-03-12] MEDS: LANSOPRAZOLE 30 MG SOLUTAB FEEDTUBE SCH (10:01)
[2020-03-12] MEDS: amLODIPine 10 MG TAB PO SCH (10:04)
--- NOTE | 2020-03-12 10:06 | Progress Note ---
<SURENDRA BLANCO - Last Filed: 03/12/20 10:04> Assessment and Plan Nonspecific elevated troponin Respiratory failure COVID 19 test was negative. Acute pancreatitis Hypertension Acute kidney injury requiring hemodialysis Severe anemia Sepsis with intermittent fevers Echocardiogram showed a mildly dilated left atrium, moderate to severe LVH but a normal left ventricular systolic function, ejection fraction 60-65%. Conservative cardiac management for nonspecific elevated troponin. Subjective Date of service: 03/12/20 Principal diagnosis: HTNsive urgency; Morbid obesity; Ac. pancreatitis; Abdominal pain Interval history: Patient is intubated on the vent. Objective Vital Signs Temp Pulse Pulse Pulse Resp Resp Resp 03/12/20 09:42 95 H 03/12/20 09:00 96 H 20 03/12/20 08:45 97 H 20 03/12/20 08:38 102 H 23 03/12/20 08:30 98 H 20 03/12/20 08:15 104 H 24 03/12/20 08:09 99 H 03/12/20 08:00 100.6 F H 100 H 104 H 20 03/12/20 07:45 109 H 22 03/12/20 07:30 102 H 20 03/12/20 07:15 102 H 20 03/12/20 07:00 102 H 20 03/12/20 06:45 103 H 20 03/12/20 06:30 102 H 20 03/12/20 06:15 103 H 20 03/12/20 06:00 106 H 21 03/12/20 05:45 106 H 20 03/12/20 05:30 109 H 22 03/12/20 05:15 100 H 19 03/12/20 05:00 98 H 19 03/12/20 04:45 95 H 19 03/12/20 04:30 97 H 19 03/12/20 04:15 97 H 20 03/12/20 04:00 98 H 99 H 20 03/12/20 03:45 95 H 20 03/12/20 03:41 100.6 F H 03/12/20 03:36 97 H 03/12/20 03:30 96 H 20 03/12/20 03:15 97 H 20 03/12/20 03:00 101 H 20 03/12/20 02:45 96 H 20 03/12/20 02:30 94 H 20 03/12/20 02:15 92 H 20 03/12/20 02:00 93 H 20 03/12/20 01:53 99 H 20 03/12/20 01:45 89 20 03/12/20 01:30 92 H 20 03/12/20 01:15 94 H 20 03/12/20 01:00 93 H 19 03/12/20 00:45 92 H 20 03/12/20 00:30 94 H 20 03/12/20 00:15 94 H 20 03/12/20 00:00 99.8 F H 95 H 96 H 20 03/11/20 23:48 20 03/11/20 23:45 95 H 20 03/11/20 23:35 95 H 03/11/20 23:30 96 H 20 03/11/20 23:19 95 H 20 03/11/20 23:15 94 H 20 03/11/20 23:00 98 H 20 03/11/20 22:45 97 H 03/11/20 22:42 100 H 03/11/20 22:41 100 H 03/11/20 22:30 100 H 20 03/11/20 22:15 99 H 20 03/11/20 22:01 100 H 20 03/11/20 22:00 20 03/11/20 21:45 100 H 20 03/11/20 21:30 99 H 20 03/11/20 21:15 101 H 20 03/11/20 21:00 102 H 03/11/20 20:45 99 H 20 03/11/20 20:33 100 H 20 03/11/20 20:30 100 H 20 03/11/20 20:15 94 H 20 03/11/20 20:00 99.6 F 97 H 100 H 20 03/11/20 19:45 96 H 20 03/11/20 19:39 99 H 03/11/20 19:30 98 H 20 03/11/20 19:15 95 H 20 03/11/20 19:00 92 H 20 03/11/20 18:45 92 H 20 03/11/20 18:30 93 H 20 03/11/20 18:15 96 H 21 03/11/20 18:00 93 H 20 03/11/20 17:45 92 H 20 03/11/20 17:30 94 H 20 03/11/20 17:15 90 20 03/11/20 17:00 95 H 21 03/11/20 16:45 91 H 20 03/11/20 16:30 91 H 21 03/11/20 16:27 98.5 F 94 H 21 03/11/20 16:15 91 H 20 03/11/20 16:00 98.6 F 96 H 96 H 20 03/11/20 15:45 97 H 24 03/11/20 15:30 96 H 21 03/11/20 15:15 89 20 03/11/20 15:00 89 20 03/11/20 14:45 89 20 03/11/20 14:30 88 20 03/11/20 14:19 84 03/11/20 14:15 85 20 03/11/20 14:00 84 17 03/11/20 13:45 84 20 03/11/20 13:30 81 20 03/11/20 13:15 81 20 03/11/20 13:00 82 20 03/11/20 12:45 82 20 03/11/20 12:31 85 20 03/11/20 12:30 98.5 F 82 20 03/11/20 12:15 84 20 03/11/20 12:00 98.5 F 86 86 20 03/11/20 11:45 86 26 H 03/11/20 11:31 87 25 H 03/11/20 11:15 92 H 27 H 03/11/20 11:03 91 H 03/11/20 11:01 91 H 29 H 03/11/20 10:45 93 H 17 03/11/20 10:31 95 H 18 03/11/20 10:15 96 H 26 H BP Pulse Ox Pulse Ox 03/12/20 09:42 120/61 03/12/20 09:00 117/61 97 03/12/20 08:45 114/62 97 03/12/20 08:38 03/12/20 08:30 116/63 97 03/12/20 08:15 117/73 98 03/12/20 08:09 115/65 100 03/12/20 08:00 115/65 99 03/12/20 07:45 131/73 97 03/12/20 07:30 123/63 96 03/12/20 07:15 107/70 97 03/12/20 07:00 131/64 97 03/12/20 06:45 117/63 97 03/12/20 06:30 124/66 97 03/12/20 06:15 135/69 99 03/12/20 06:00 129/73 97 03/12/20 05:45 131/75 98 03/12/20 05:30 127/80 98 03/12/20 05:15 125/71 03/12/20 05:00 118/72 97 03/12/20 04:45 110/65 97 03/12/20 04:30 104/67 97 03/12/20 04:15 106/65 97 03/12/20 04:00 114/65 97 03/12/20 03:45 118/62 97 03/12/20 03:41 03/12/20 03:36 111/65 97 03/12/20 03:30 111/65 97 03/12/20 03:15 109/67 97 03/12/20 03:00 113/66 97 03/12/20 02:45 104/60 97 03/12/20 02:30 103/59 96 03/12/20 02:15 109/61 96 03/12/20 02:00 109/61 95 03/12/20 01:53 03/12/20 01:45 103/65 97 03/12/20 01:30 106/61 96 03/12/20 01:15 108/60 96 03/12/20 01:00 107/61 96 03/12/20 00:45 106/61 96 03/12/20 00:30 105/63 96 03/12/20 00:15 114/65 96 03/12/20 00:00 111/66 96 03/11/20 23:48 03/11/20 23:45 115/65 96 03/11/20 23:35 118/67 96 03/11/20 23:30 118/69 96 03/11/20 23:19 133/80 97 03/11/20 23:15 133/80 98 03/11/20 23:00 121/75 96 03/11/20 22:45 136/84 93 03/11/20 22:42 130/84 03/11/20 22:41 130/84 03/11/20 22:30 130/84 95 03/11/20 22:15 132/83 95 03/11/20 22:01 153/93 99 03/11/20 22:00 03/11/20 21:45 136/80 96 03/11/20 21:30 125/75 96 03/11/20 21:15 144/83 98 03/11/20 21:00 143/89 99 03/11/20 20:45 137/89 97 03/11/20 20:33 03/11/20 20:30 128/81 98 03/11/20 20:15 141/92 99 03/11/20 20:00 130/80 96 03/11/20 19:45 149/95 100 03/11/20 19:39 132/78 99 03/11/20 19:30 132/78 98 03/11/20 19:15 126/80 99 03/11/20 19:00 132/85 99 03/11/20 18:45 133/84 99 03/11/20 18:30 131/85 100 03/11/20 18:15 130/85 98 03/11/20 18:00 137/86 99 03/11/20 17:45 124/82 99 03/11/20 17:30 129/77 99 03/11/20 17:15 128/84 100 03/11/20 17:00 126/83 99 03/11/20 16:45 131/84 100 03/11/20 16:30 129/82 99 03/11/20 16:27 142/92 99 03/11/20 16:15 142/92 98 03/11/20 16:00 140/93 98 03/11/20 15:45 152/104 96 03/11/20 15:30 130/85 100 03/11/20 15:15 139/92 100 03/11/20 15:00 143/93 100 03/11/20 14:45 138/95 100 03/11/20 14:30 147/97 100 03/11/20 14:19 140/96 03/11/20 14:15 140/96 100 03/11/20 14:00 144/94 100 03/11/20 13:45 136/94 100 03/11/20 13:30 135/88 100 03/11/20 13:15 132/86 100 03/11/20 13:00 138/89 100 03/11/20 12:45 146/93 100 03/11/20 12:31 146/92 100 03/11/20 12:30 146/93 100 03/11/20 12:15 146/92 99 03/11/20 12:00 146/92 100 03/11/20 11:45 170/99 100 03/11/20 11:31 170/99 100 03/11/20 11:15 170/99 100 03/11/20 11:03 170/99 03/11/20 11:01 180/99 99 03/11/20 10:45 158/101 100 03/11/20 10:31 158/101 100 03/11/20 10:15 158/101 100 - Physical Examination General: Other (intubated on the vent) Cardiac: Positive: Reg Rate and Rhythm - Labs and Meds Lipids 03/11/20 Range/Units 14:31 Triglycerides 247 H (2-149) mg/dL Cholesterol 158 (50-199) mg/dL HDL Cholesterol 28 L (40-59) mg/dL Cholesterol/HDL Ratio 5.64 % - Allied health notes Allied health notes reviewed: RT <SAURABH RONDON - Last Filed: 03/12/20 21:01> Subjective Interval history: I SAW THIS PT & AGREE WITH THE Dx & Tx PLAN Objective Vital Signs Temp Pulse Pulse Pulse Resp Resp Resp 03/12/20 20:50 104 H 20 03/12/20 20:00 105 H 105 H 23 03/12/20 19:45 100.5 F H 122 H 28 H 03/12/20 19:36 106 H 28 H 03/12/20 19:30 107 H 31 H 03/12/20 19:15 112 H 31 H 03/12/20 19:01 105 H 31 H 03/12/20 18:45 108 H 25 H 03/12/20 18:31 120 H 22 03/12/20 18:15 100 H 26 H 03/12/20 18:00 100 H 25 H 03/12/20 17:45 103 H 22 03/12/20 17:30 106 H 26 H 03/12/20 17:15 111 H 22 03/12/20 17:00 106 H 32 H 03/12/20 16:45 104 H 30 H 03/12/20 16:31 109 H 30 H 03/12/20 16:15 105 H 27 H 10/08/20 16:00 99.5 F 103 H 106 H 32 H 03/12/20 15:45 107 H 21 03/12/20 15:34 107 H 03/12/20 15:30 116 H 28 H 03/12/20 15:22 103 H 23 03/12/20 15:15 92 H 21 03/12/20 15:00 91 H 20 03/12/20 14:59 87 22 03/12/20 14:45 85 20 03/12/20 14:30 86 20 03/12/20 14:15 84 20 03/12/20 14:00 86 20 03/12/20 13:45 82 20 03/12/20 13:30 87 20 03/12/20 13:15 89 20 03/12/20 13:00 84 20 03/12/20 12:45 86 15 03/12/20 12:30 86 20 03/12/20 12:15 89 20 03/12/20 12:00 100 H 89 20 03/12/20 11:56 99.4 F 03/12/20 11:52 91 H 03/12/20 11:45 94 H 22 03/12/20 11:30 91 H 20 03/12/20 11:15 87 20 03/12/20 11:00 88 20 03/12/20 10:45 88 20 03/12/20 10:30 89 20 03/12/20 10:15 95 H 20 03/12/20 10:04 99 H 03/12/20 10:00 104 H 14 03/12/20 09:45 94 H 20 03/12/20 09:42 95 H 03/12/20 09:30 96 H 20 03/12/20 09:15 96 H 20 03/12/20 09:00 96 H 20 03/12/20 08:45 97 H 20 03/12/20 08:38 102 H 23 03/12/20 08:30 98 H 20 03/12/20 08:15 104 H 24 03/12/20 08:09 99 H 03/12/20 08:00 100.6 F H 100 H 104 H 20 03/12/20 07:45 109 H 22 03/12/20 07:30 102 H 20 03/12/20 07:15 102 H 20 03/12/20 07:00 102 H 20 03/12/20 06:45 103 H 20 03/12/20 06:30 102 H 20 03/12/20 06:15 103 H 20 03/12/20 06:00 106 H 21 03/12/20 05:45 106 H 20 03/12/20 05:30 109 H 22 03/12/20 05:15 100 H 19 03/12/20 05:00 98 H 19 03/12/20 04:45 95 H 19 03/12/20 04:30 97 H 19 03/12/20 04:15 97 H 20 03/12/20 04:00 98 H 99 H 20 03/12/20 03:45 95 H 20 03/12/20 03:41 100.6 F H 03/12/20 03:36 97 H 03/12/20 03:30 96 H 20 03/12/20 03:15 97 H 20 03/12/20 03:00 101 H 20 03/12/20 02:45 96 H 20 03/12/20 02:30 94 H 20 03/12/20 02:15 92 H 20 03/12/20 02:00 93 H 20 03/12/20 01:53 99 H 20 03/12/20 01:45 89 20 03/12/20 01:30 92 H 20 03/12/20 01:15 94 H 20 03/12/20 01:00 93 H 19 03/12/20 00:45 92 H 20 03/12/20 00:30 94 H 20 03/12/20 00:15 94 H 20 03/12/20 00:00 99.8 F H 95 H 96 H 20 03/11/20 23:48 20 03/11/20 23:45 95 H 03/11/20 23:35 95 H 03/11/20 23:30 96 H 20 03/11/20 23:19 95 H 20 03/11/20 23:15 94 H 20 03/11/20 23:00 98 H 20 03/11/20 22:45 97 H 03/11/20 22:42 100 H 03/11/20 22:41 100 H 03/11/20 22:30 100 H 20 03/11/20 22:15 99 H 20 03/11/20 22:01 100 H 20 03/11/20 22:00 20 03/11/20 21:45 100 H 20 03/11/20 21:30 99 H 20 03/11/20 21:15 101 H 20 BP Pulse Ox 03/12/20 20:50 03/12/20 20:00 150/71 98 03/12/20 19:45 142/87 97 03/12/20 19:36 154/94 99 03/12/20 19:30 154/94 98 03/12/20 19:15 100 03/12/20 19:01 126/76 99 03/12/20 18:45 126/76 99 03/12/20 18:31 126/76 96 03/12/20 18:15 126/76 99 03/12/20 18:00 126/74 99 03/12/20 17:45 126/73 99 03/12/20 17:30 128/70 98 03/12/20 17:15 136/73 100 03/12/20 17:00 121/62 97 03/12/20 16:45 138/74 99 03/12/20 16:31 138/74 99 03/12/20 16:15 138/74 98 03/12/20 16:00 135/70 98 03/12/20 15:45 137/72 99 03/12/20 15:34 185/98 03/12/20 15:30 185/98 94 03/12/20 15:22 160/78 98 03/12/20 15:15 137/72 99 03/12/20 15:00 140/71 95 03/12/20 14:59 03/12/20 14:45 122/76 100 03/12/20 14:30 122/69 100 03/12/20 14:15 119/71 100 03/12/20 14:00 113/71 100 03/12/20 13:45 117/68 99 03/12/20 13:30 118/67 100 03/12/20 13:15 128/80 99 03/12/20 13:00 113/66 100 03/12/20 12:45 122/65 99 03/12/20 12:30 116/63 99 03/12/20 12:15 115/62 98 03/12/20 12:00 125/75 100 03/12/20 11:56 03/12/20 11:52 125/75 98 03/12/20 11:45 125/75 97 03/12/20 11:30 101/62 99 03/12/20 11:15 108/57 99 03/12/20 11:00 118/63 99 03/12/20 10:45 126/64 99 03/12/20 10:30 111/59 98 03/12/20 10:15 137/68 99 03/12/20 10:04 128/86 03/12/20 10:00 128/86 100 03/12/20 09:45 107/66 98 03/12/20 09:42 120/61 03/12/20 09:30 120/61 98 03/12/20 09:15 113/59 98 03/12/20 09:00 117/61 97 03/12/20 08:45 114/62 97 03/12/20 08:38 03/12/20 08:30 116/63 97 03/12/20 08:15 117/73 98 03/12/20 08:09 115/65 100 03/12/20 08:00 115/65 99 03/12/20 07:45 131/73 97 03/12/20 07:30 123/63 96 03/12/20 07:15 107/70 97 03/12/20 07:00 131/64 97 03/12/20 06:45 117/63 97 03/12/20 06:30 124/66 97 03/12/20 06:15 135/69 99 03/12/20 06:00 129/73 97 03/12/20 05:45 131/75 98 03/12/20 05:30 127/80 98 03/12/20 05:15 125/71 03/12/20 05:00 118/72 97 03/12/20 04:45 110/65 97 03/12/20 04:30 104/67 97 03/12/20 04:15 106/65 97 03/12/20 04:00 114/65 97 03/12/20 03:45 118/62 97 03/12/20 03:41 03/12/20 03:36 111/65 97 03/12/20 03:30 111/65 97 03/12/20 03:15 109/67 97 03/12/20 03:00 113/66 97 03/12/20 02:45 104/60 97 03/12/20 02:30 103/59 96 03/12/20 02:15 109/61 96 03/12/20 02:00 109/61 95 03/12/20 01:53 03/12/20 01:45 103/65 97 03/12/20 01:30 106/61 96 03/12/20 01:15 108/60 96 03/12/20 01:00 107/61 96 03/12/20 00:45 106/61 96 03/12/20 00:30 105/63 96 03/12/20 00:15 114/65 96 03/12/20 00:00 111/66 96 03/11/20 23:48 03/11/20 23:45 115/65 96 03/11/20 23:35 118/67 96 03/11/20 23:30 118/69 96 03/11/20 23:19 133/80 97 03/11/20 23:15 133/80 98 03/11/20 23:00 121/75 96 03/11/20 22:45 136/84 93 03/11/20 22:42 130/84 03/11/20 22:41 130/84 03/11/20 22:30 130/84 95 03/11/20 22:15 132/83 95 03/11/20 22:01 153/93 99 03/11/20 22:00 03/11/20 21:45 136/80 96 03/11/20 21:30 125/75 96 03/11/20 21:15 144/83 98
--- NOTE | 2020-03-12 11:23 | Progress Note ---
Assessment and Plan Acute Hypoxemic Respiratory Failure on MVS Severe Sepsis Acute Toxic-Metabolic Encephalopathy Hypertensive urgency Morbid obesity Acute pancreatitis, abdominal pain Medical non compliance Oropharyngeal Dysphagia - RT asked to resume SBT's now - rest overnight on AC and tentatively extubate post dialysis - continue HD/UF for toxin and volume clearance - continue care as below otherwise; - continue daily SAT and SBT assessment as tolerated - continue fentanyl for sedation +/- propofol - accuchecks with glycemic control per SSI (While critically ill target blood glucose of 140-180 mg/dL; avoid hypoglycemia) - sedation prn for target RASS -1 to -2 - continue to wean supplemental oxygen for target O2 sat's > 90% acutely - VAP bundle addressed - continue lung protective strategies - continue bronchodilators with pulmonary hygiene per RT - wean per pulmonary driven protocols otherwise - continue enteral nutritiuon at goal rate as tolerated - completed AB's (Merrem) per ID rec's - JUANIS per straightening roll operator - Evaluation for sleep apnea as an outpatient - VTE prophylaxis - prn Analgesia per CPOT score - avoid nephrotoxins, renally dose all medications - Maintenance of sleep-wake cycle, avoid delirium - G.I. & VTE prophylaxis - PT/OT/ROM exercises - mobility protocols for pressure ulcer prophylaxis - Monitor hemodynamics closely - continue other care per attending / other consultants - discharge planning ongoing concurrently ..... re-evaluate in am & prn CONDITION: CRITICAL PROGNOSIS: GUARDED CODE STATUS: FULL CODE The high probability of a clinically significant, sudden or life-threatening deterioration of the [respiratory, cardiovascular & GI] system(s) required my full and direct attention, intervention and personal management. The aggregate critical care time was [32] minutes without overlap. Time includes spent on; [x] Data Review and interpretation [x] Patient assessment and monitoring of vital signs [x] Documentation [x] Medication orders and management Subjective Date of service: 03/12/20 Principal diagnosis: HTNsive urgency; Morbid obesity; Ac. pancreatitis; Abdominal pain Interval history: Patient is seen today for: Hypertensive urgency; Morbid obesity; Acute pancreatitis; abdominal pain; Medical non compliance; Acute Toxic Metabolic Encephalopathy Seen and examined at bedside; 24hour events reviewed; nursing and respiratory care staff consulted; no adverse overnight events reported to me; resting peace fully in bed; remains on MVS; not weaned earlier today; she has had agitation issues; denies chest pains; NO N/V/F/C; remains dialysis dependent Objective Vital Signs - 12hr 03/11/20 03/11/20 03/11/20 23:30 23:35 23:45 Temperature Pulse Rate 96 H 95 H 95 H Pulse Rate [ Anterior Bilateral Throughout] Pulse Rate [ From Monitor] Respiratory 20 20 Rate Respiratory Rate [Anterior Bilateral Throughout] Blood Pressure 118/69 118/67 115/65 O2 Sat by Pulse 96 96 96 Oximetry 03/11/20 03/12/20 03/12/20 23:48 00:00 00:15 Temperature 99.8 F H Pulse Rate 95 H 94 H Pulse Rate [ Anterior Bilateral Throughout] Pulse Rate [ 96 H From Monitor] Respiratory 20 20 20 Rate Respiratory Rate [Anterior Bilateral Throughout] Blood Pressure 111/66 114/65 O2 Sat by Pulse 96 96 Oximetry 03/12/20 03/12/20 03/12/20 00:30 00:45 01:00 Temperature Pulse Rate 94 H 92 H 93 H Pulse Rate [ Anterior Bilateral Throughout] Pulse Rate [ From Monitor] Respiratory 20 20 19 Rate Respiratory Rate [Anterior Bilateral Throughout] Blood Pressure 105/63 106/61 107/61 O2 Sat by Pulse 96 96 96 Oximetry 03/12/20 03/12/20 03/12/20 01:15 01:30 01:45 Temperature Pulse Rate 94 H 92 H 89 Pulse Rate [ Anterior Bilateral Throughout] Pulse Rate [ From Monitor] Respiratory 20 20 20 Rate Respiratory Rate [Anterior Bilateral Throughout] Blood Pressure 108/60 106/61 103/65 O2 Sat by Pulse 96 96 97 Oximetry 03/12/20 03/12/20 03/12/20 01:53 02:00 02:15 Temperature Pulse Rate 93 H 92 H Pulse Rate [ 99 H Anterior Bilateral Throughout] Pulse Rate [ From Monitor] Respiratory 20 20 Rate Respiratory 20 Rate [Anterior Bilateral Throughout] Blood Pressure 109/61 109/61 O2 Sat by Pulse 95 96 Oximetry 03/12/20 03/12/20 03/12/20 02:30 02:45 03:00 Temperature Pulse Rate 94 H 96 H 101 H Pulse Rate [ Anterior Bilateral Throughout] Pulse Rate [ From Monitor] Respiratory 20 20 20 Rate Respiratory Rate [Anterior Bilateral Throughout] Blood Pressure 103/59 104/60 113/66 O2 Sat by Pulse 96 97 97 Oximetry 03/12/20 03/12/20 03/12/20 03:15 03:30 03:36 Temperature Pulse Rate 97 H 96 H 97 H Pulse Rate [ Anterior Bilateral Throughout] Pulse Rate [ From Monitor] Respiratory 20 20 Rate Respiratory Rate [Anterior Bilateral Throughout] Blood Pressure 109/67 111/65 111/65 O2 Sat by Pulse 97 97 97 Oximetry 03/12/20 03/12/20 03/12/20 03:41 03:45 04:00 Temperature 100.6 F H Pulse Rate 95 H 98 H Pulse Rate [ Anterior Bilateral Throughout] Pulse Rate [ 99 H From Monitor] Respiratory 20 20 Rate Respiratory Rate [Anterior Bilateral Throughout] Blood Pressure 118/62 114/65 O2 Sat by Pulse 97 97 Oximetry 03/12/20 03/12/20 03/12/20 04:15 04:30 04:45 Temperature Pulse Rate 97 H 97 H 95 H Pulse Rate [ Anterior Bilateral Throughout] Pulse Rate [ From Monitor] Respiratory 20 19 19 Rate Respiratory Rate [Anterior Bilateral Throughout] Blood Pressure 106/65 104/67 110/65 O2 Sat by Pulse 97 97 97 Oximetry 03/12/20 03/12/20 03/12/20 05:00 05:15 05:30 Temperature Pulse Rate 98 H 100 H 109 H Pulse Rate [ Anterior Bilateral Throughout] Pulse Rate [ From Monitor] Respiratory 19 19 22 Rate Respiratory Rate [Anterior Bilateral Throughout] Blood Pressure 118/72 125/71 127/80 O2 Sat by Pulse 97 98 Oximetry 03/12/20 03/12/20 03/12/20 05:45 06:00 06:15 Temperature Pulse Rate 106 H 106 H 103 H Pulse Rate [ Anterior Bilateral Throughout] Pulse Rate [ From Monitor] Respiratory 20 21 20 Rate Respiratory Rate [Anterior Bilateral Throughout] Blood Pressure 131/75 129/73 135/69 O2 Sat by Pulse 98 97 99 Oximetry 03/12/20 03/12/20 03/12/20 06:30 06:45 07:00 Temperature Pulse Rate 102 H 103 H 102 H Pulse Rate [ Anterior Bilateral Throughout] Pulse Rate [ From Monitor] Respiratory 20 20 20 Rate Respiratory Rate [Anterior Bilateral Throughout] Blood Pressure 124/66 117/63 131/64 O2 Sat by Pulse 97 97 97 Oximetry 03/12/20 03/12/20 03/12/20 07:15 07:30 07:45 Temperature Pulse Rate 102 H 102 H 109 H Pulse Rate [ Anterior Bilateral Throughout] Pulse Rate [ From Monitor] Respiratory 20 20 22 Rate Respiratory Rate [Anterior Bilateral Throughout] Blood Pressure 107/70 123/63 131/73 O2 Sat by Pulse 97 96 97 Oximetry 03/12/20 03/12/20 03/12/20 08:00 08:09 08:15 Temperature 100.6 F H Pulse Rate 100 H 99 H 104 H Pulse Rate [ Anterior Bilateral Throughout] Pulse Rate [ 104 H From Monitor] Respiratory 20 24 Rate Respiratory Rate [Anterior Bilateral Throughout] Blood Pressure 115/65 115/65 117/73 O2 Sat by Pulse 99 100 98 Oximetry 03/12/20 03/12/20 03/12/20 08:30 08:38 08:45 Temperature Pulse Rate 98 H 97 H Pulse Rate [ 102 H Anterior Bilateral Throughout] Pulse Rate [ From Monitor] Respiratory 20 20 Rate Respiratory 23 Rate [Anterior Bilateral Throughout] Blood Pressure 116/63 114/62 O2 Sat by Pulse 97 97 Oximetry 03/12/20 03/12/20 03/12/20 09:00 09:15 09:30 Temperature Pulse Rate 96 H 96 H 96 H Pulse Rate [ Anterior Bilateral Throughout] Pulse Rate [ From Monitor] Respiratory 20 20 20 Rate Respiratory Rate [Anterior Bilateral Throughout] Blood Pressure 117/61 113/59 120/61 O2 Sat by Pulse 97 98 98 Oximetry 03/12/20 03/12/20 03/12/20 09:42 09:45 10:00 Temperature Pulse Rate 95 H 94 H 104 H Pulse Rate [ Anterior Bilateral Throughout] Pulse Rate [ From Monitor] Respiratory 20 14 Rate Respiratory Rate [Anterior Bilateral Throughout] Blood Pressure 120/61 107/66 128/86 O2 Sat by Pulse 98 100 Oximetry 03/12/20 03/12/20 10:04 10:15 Temperature Pulse Rate 99 H 95 H Pulse Rate [ Anterior Bilateral Throughout] Pulse Rate [ From Monitor] Respiratory 20 Rate Respiratory Rate [Anterior Bilateral Throughout] Blood Pressure 128/86 137/68 O2 Sat by Pulse 99 Oximetry Constitutional: appears uncomfortable, other (Obese female with mildly increased respiratory effort at rest on MVS, ) Eyes: non-icteric ENT: oropharynx moist, other (ETT 24 cm TY, RIJ HD trialysis catheter) Neck: supple, no lymphadenopathy, no JVD Effort: normal Ascultation: Bilateral: rhonchi (scant) Percussion: Bilateral: not dull Cardiovascular: regular rate and rhythm, other (S1,S2) Gastrointestinal: normoactive bowel sounds, hypoactive bowel sounds, soft, non- tender, other (distended but soft) Integumentary: normal Extremities: no cyanosis, no edema, pulses normal, no ischemia or petechiae Neurologic: non-focal exam, pupils equal and round, CN II-XII normal, motor strength normal and Psychiatric: mood appropriate, anxious CBC and BMP: 03/13/20 08:20 03/11/20 04:32 ABG, PT/INR, D-dimer: ABG ABG pH 7.421 (7.320-7.450) 03/12/20 03:46 POC ABG pCO2 41.9 mmHg (32.0-48.0) 03/12/20 03:46 ABG pCO2 38.1 mm Hg 03/11/20 06:50 POC ABG pO2 78.3 mmHg (83-108) L 03/12/20 03:46 ABG pO2 67.8 mm Hg (80.0-90.0) L 03/11/20 06:50 POC ABG HCO3 26.6 03/12/20 03:46 ABG O2 Saturation 98.0 % (95.0-99.0) 03/11/20 06:50 PT/INR, D-dimer PT 14.1 Sec. (12.2-14.9) 03/11/20 07:31 INR 1.07 (0.87-1.13) 03/11/20 07:31 Abnormal lab findings: Abnormal Labs 02/24/20 02/24/20 02/24/20 02:53 02:53 Unknown WBC 12.7 H Hgb 10.0 L RBC Hct MCV 70 L MCH 22 L RDW 17.9 H Plt Count 458 H Lymph % (Auto) 8.9 L Lymph # 1.1 L [place] % (Auto) [place] # Lymph # (Auto) [place] # (Auto) Seg Neutrophils % 84.2 H Seg Neutrophils # 10.7 H Seg Neuts % (Manual) Lymphocytes % (Manual) Monocytes % (Manual) Nucleated RBC % Seg Neutrophils # Man Lymphocytes # (Manual) Monocytes # (Manual) Eosinophils # (Manual) Basophils # (Manual) ABG pH POC ABG pCO2 POC ABG pO2 ABG pO2 ABG HCO3 ABG O2 Saturation ABG Base Excess ABG Hemoglobin ABG Oxyhemoglobin ABG Sodium ABG Glucose Oxyhemoglobin Sodium Potassium Chloride Carbon Dioxide BUN 27 H Creatinine 1.7 H Glucose 118 H POC Glucose Calcium Phosphorus Magnesium Direct Bilirubin AST Alkaline Phosphatase Albumin Troponin T C-Reactive Protein Yobud-3-Obrmbbdsf PEP Interpretation Triglycerides Lipase 232 H HDL Cholesterol PTH Intact Arterial Blood Glucose Urine WBC (Auto) 11.0 H Urine Creatinine Urine Total Protein ZINA Screen Crossmatch 02/25/20 02/25/20 02/25/20 00:03 03:49 03:49 WBC 29.1 H Hgb 9.4 L RBC Hct 30.2 L MCV 71 L MCH 22 L RDW 18.3 H Plt Count 525 H Lymph % (Auto) 3.4 L Lymph # 1.0 L [place] % (Auto) [place] # 1.0 H Lymph # (Auto) [place] # (Auto) Seg Neutrophils % Seg Neutrophils # 26.4 H Seg Neuts % (Manual) Lymphocytes % (Manual) Monocytes % (Manual) Nucleated RBC % Seg Neutrophils # Man Lymphocytes # (Manual) Monocytes # (Manual) Eosinophils # (Manual) Basophils # (Manual) ABG pH POC ABG pCO2 POC ABG pO2 ABG pO2 ABG HCO3 ABG O2 Saturation ABG Base Excess ABG Hemoglobin ABG Oxyhemoglobin ABG Sodium ABG Glucose Oxyhemoglobin Sodium Potassium Chloride Carbon Dioxide BUN Creatinine Glucose POC Glucose 126 H Calcium Phosphorus Magnesium Direct Bilirubin AST Alkaline Phosphatase Albumin Troponin T C-Reactive Protein Cgicx-6-Ajjlghnai PEP Interpretation Triglycerides Lipase 1486 H HDL Cholesterol PTH Intact Arterial Blood Glucose Urine WBC (Auto) Urine Creatinine Urine Total Protein ZINA Screen Crossmatch 02/25/20 02/25/20 02/25/20 03:49 05:55 22:55 WBC Hgb RBC Hct MCV MCH RDW Plt Count Lymph % (Auto) Lymph # [place] % (Auto) [place] # Lymph # (Auto) [place] # (Auto) Seg Neutrophils % Seg Neutrophils # Seg Neuts % (Manual) Lymphocytes % (Manual) Monocytes % (Manual) Nucleated RBC % Seg Neutrophils # Man Lymphocytes # (Manual) Monocytes # (Manual) Eosinophils # (Manual) Basophils # (Manual) ABG pH POC ABG pCO2 POC ABG pO2 ABG pO2 ABG HCO3 ABG O2 Saturation ABG Base Excess ABG Hemoglobin ABG Oxyhemoglobin ABG Sodium ABG Glucose Oxyhemoglobin Sodium 136 L Potassium Chloride 97.9 L Carbon Dioxide 21 L BUN 39 H Creatinine 3.0 H D Glucose 118 H POC Glucose 124 H Calcium Phosphorus Magnesium Direct Bilirubin AST Alkaline Phosphatase Albumin 3.6 L Troponin T C-Reactive Protein Kctoy-4-Ffyibtadp PEP Interpretation Triglycerides Lipase HDL Cholesterol PTH Intact Arterial Blood Glucose Urine WBC (Auto) Urine Creatinine 161.0 H Urine Total Protein 150 H ZINA Screen Crossmatch 02/26/20 02/26/20 02/26/20 04:39 04:39 04:39 WBC 30.3 H Hgb 9.1 L RBC Hct 29.8 L MCV 71 L MCH 22 L RDW 18.2 H Plt Count 530 H Lymph % (Auto) Lymph # [place] % (Auto) [place] # Lymph # (Auto) [place] # (Auto) Seg Neutrophils % Seg Neutrophils # Seg Neuts % (Manual) Lymphocytes % (Manual) Monocytes % (Manual) Nucleated RBC % Seg Neutrophils # Man Lymphocytes # (Manual) Monocytes # (Manual) Eosinophils # (Manual) Basophils # (Manual) ABG pH POC ABG pCO2 POC ABG pO2 ABG pO2 ABG HCO3 ABG O2 Saturation ABG Base Excess ABG Hemoglobin ABG Oxyhemoglobin ABG Sodium ABG Glucose Oxyhemoglobin Sodium Potassium Chloride Carbon Dioxide 19 L BUN 44 H Creatinine 3.1 H Glucose 106 H POC Glucose Calcium 8.1 L Phosphorus Magnesium Direct Bilirubin AST Alkaline Phosphatase Albumin Troponin T C-Reactive Protein Ofuyu-0-Nbhrvmnje PEP Interpretation Triglycerides Lipase 540 H HDL Cholesterol PTH Intact Arterial Blood Glucose Urine WBC (Auto) Urine Creatinine Urine Total Protein ZINA Screen Positive H Crossmatch 02/26/20 02/26/20 02/26/20 04:39 08:15 12:14 WBC Hgb RBC Hct MCV MCH RDW Plt Count Lymph % (Auto) Lymph # [place] % (Auto) [place] # Lymph # (Auto) [place] # (Auto) Seg Neutrophils % Seg Neutrophils # Seg Neuts % (Manual) Lymphocytes % (Manual) Monocytes % (Manual) Nucleated RBC % Seg Neutrophils # Man Lymphocytes # (Manual) Monocytes # (Manual) Eosinophils # (Manual) Basophils # (Manual) ABG pH POC ABG pCO2 POC ABG pO2 ABG pO2 ABG HCO3 ABG O2 Saturation ABG Base Excess ABG Hemoglobin ABG Oxyhemoglobin ABG Sodium ABG Glucose Oxyhemoglobin Sodium Potassium Chloride Carbon Dioxide BUN Creatinine Glucose POC Glucose 112 H Calcium Phosphorus Magnesium Direct Bilirubin AST Alkaline Phosphatase Albumin 2.8 L Troponin T C-Reactive Protein Fqgrh-1-Fdpehuqen 0.7 H PEP Interpretation see below H Triglycerides Lipase HDL Cholesterol PTH Intact 911.3 H Arterial Blood Glucose Urine WBC (Auto) Urine Creatinine Urine Total Protein ZINA Screen Crossmatch 02/27/20 02/27/20 02/27/20 04:18 04:18 04:18 WBC 26.8 H Hgb 7.9 L RBC Hct 26.3 L MCV 70 L MCH 21 L RDW 18.0 H Plt Count 513 H Lymph % (Auto) Lymph # [place] % (Auto) [place] # Lymph # (Auto) [place] # (Auto) Seg Neutrophils % Seg Neutrophils # Seg Neuts % (Manual) Lymphocytes % (Manual) Monocytes % (Manual) Nucleated RBC % Seg Neutrophils # Man Lymphocytes # (Manual) Monocytes # (Manual) Eosinophils # (Manual) Basophils # (Manual) ABG pH POC ABG pCO2 POC ABG pO2 ABG pO2 ABG HCO3 ABG O2 Saturation ABG Base Excess ABG Hemoglobin ABG Oxyhemoglobin ABG Sodium ABG Glucose Oxyhemoglobin Sodium 135 L 135 L Potassium Chloride Carbon Dioxide 15 L 16 L BUN 50 H 51 H Creatinine 3.4 H 3.4 H Glucose POC Glucose Calcium 7.4 L 7.5 L Phosphorus Magnesium Direct Bilirubin AST Alkaline Phosphatase Albumin 3.0 L Troponin T C-Reactive Protein 37.30 H Asltx-6-Ttldjfevx PEP Interpretation Triglycerides Lipase 177 H HDL Cholesterol PTH Intact Arterial Blood Glucose Urine WBC (Auto) Urine Creatinine Urine Total Protein ZINA Screen Crossmatch 02/27/20 02/28/20 02/28/20 16:57 05:07 05:07 WBC Hgb RBC Hct MCV MCH RDW Plt Count Lymph % (Auto) Lymph # [place] % (Auto) [place] # Lymph # (Auto) [place] # (Auto) Seg Neutrophils % Seg Neutrophils # Seg Neuts % (Manual) Lymphocytes % (Manual) Monocytes % (Manual) Nucleated RBC % Seg Neutrophils # Man Lymphocytes # (Manual) Monocytes # (Manual) Eosinophils # (Manual) Basophils # (Manual) ABG pH 7.336 L POC ABG pCO2 POC ABG pO2 ABG pO2 57.0 L ABG HCO3 16.4 L ABG O2 Saturation 88.2 L ABG Base Excess -8.4 L ABG Hemoglobin 10.4 L ABG Oxyhemoglobin ABG Sodium ABG Glucose Oxyhemoglobin 85.7 L Sodium Potassium Chloride Carbon Dioxide 14 L BUN 60 H Creatinine 4.2 H Glucose POC Glucose Calcium 8.2 L Phosphorus Magnesium Direct Bilirubin AST Alkaline Phosphatase Albumin Troponin T C-Reactive Protein Yjqve-2-Ptgsattgk PEP Interpretation Triglycerides Lipase 155 H HDL Cholesterol PTH Intact Arterial Blood Glucose Urine WBC (Auto) Urine Creatinine Urine Total Protein ZINA Screen Crossmatch 02/28/20 02/28/20 02/28/20 05:56 11:05 11:05 WBC Hgb RBC Hct MCV MCH RDW Plt Count Lymph % (Auto) Lymph # [place] % (Auto) [place] # Lymph # (Auto) [place] # (Auto) Seg Neutrophils % Seg Neutrophils # Seg Neuts % (Manual) Lymphocytes % (Manual) Monocytes % (Manual) Nucleated RBC % Seg Neutrophils # Man Lymphocytes # (Manual) Monocytes # (Manual) Eosinophils # (Manual) Basophils # (Manual) ABG pH 7.317 L POC ABG pCO2 POC ABG pO2 76.2 L ABG pO2 ABG HCO3 16.4 L ABG O2 Saturation ABG Base Excess -8.9 L ABG Hemoglobin 6.6 L 7.6 L ABG Oxyhemoglobin ABG Sodium ABG Glucose Oxyhemoglobin 94.6 L Sodium Potassium Chloride Carbon Dioxide BUN Creatinine Glucose POC Glucose 115 H Calcium Phosphorus Magnesium Direct Bilirubin AST Alkaline Phosphatase Albumin Troponin T C-Reactive Protein Poszj-8-Wpcrqsthv PEP Interpretation Triglycerides Lipase HDL Cholesterol PTH Intact Arterial Blood Glucose Urine WBC (Auto) Urine Creatinine Urine Total Protein ZINA Screen Crossmatch 02/28/20 02/28/20 02/29/20 17:39 19:39 05:43 WBC Hgb RBC Hct MCV MCH RDW Plt Count Lymph % (Auto) Lymph # [place] % (Auto) [place] # Lymph # (Auto) [place] # (Auto) Seg Neutrophils % Seg Neutrophils # Seg Neuts % (Manual) Lymphocytes % (Manual) Monocytes % (Manual) Nucleated RBC % Seg Neutrophils # Man Lymphocytes # (Manual) Monocytes # (Manual) Eosinophils # (Manual) Basophils # (Manual) ABG pH 7.300 L POC ABG pCO2 POC ABG pO2 ABG pO2 117.5 H ABG HCO3 15.0 L ABG O2 Saturation ABG Base Excess -10.5 L ABG Hemoglobin 6.4 L ABG Oxyhemoglobin ABG Sodium ABG Glucose Oxyhemoglobin Sodium Potassium Chloride Carbon Dioxide BUN Creatinine Glucose POC Glucose 120 H 66 L Calcium Phosphorus Magnesium Direct Bilirubin AST Alkaline Phosphatase Albumin Troponin T C-Reactive Protein Cxvfd-9-Imqaphckq PEP Interpretation Triglycerides Lipase HDL Cholesterol PTH Intact Arterial Blood Glucose Urine WBC (Auto) Urine Creatinine Urine Total Protein ZINA Screen Crossmatch 02/29/20 02/29/20 02/29/20 05:45 12:04 12:31 WBC Hgb RBC Hct MCV MCH RDW Plt Count Lymph % (Auto) Lymph # [place] % (Auto) [place] # Lymph # (Auto) [place] # (Auto) Seg Neutrophils % Seg Neutrophils # Seg Neuts % (Manual) Lymphocytes % (Manual) Monocytes % (Manual) Nucleated RBC % Seg Neutrophils # Man Lymphocytes # (Manual) Monocytes # (Manual) Eosinophils # (Manual) Basophils # (Manual) ABG pH 7.212 L POC ABG pCO2 POC ABG pO2 ABG pO2 ABG HCO3 ABG O2 Saturation ABG Base Excess ABG Hemoglobin 7.4 L ABG Oxyhemoglobin ABG Sodium ABG Glucose Oxyhemoglobin Sodium Potassium Chloride Carbon Dioxide BUN Creatinine Glucose POC Glucose 65 L 64 L Calcium Phosphorus Magnesium Direct Bilirubin AST Alkaline Phosphatase Albumin Troponin T C-Reactive Protein Cvhlo-2-Wpgpxelqa PEP Interpretation Triglycerides Lipase HDL Cholesterol PTH Intact Arterial Blood Glucose Urine WBC (Auto) Urine Creatinine Urine Total Protein ZINA Screen Crossmatch 02/29/20 02/29/20 02/29/20 14:22 14:22 18:20 WBC Hgb RBC Hct MCV MCH RDW Plt Count Lymph % (Auto) Lymph # [place] % (Auto) [place] # Lymph # (Auto) [place] # (Auto) Seg Neutrophils % Seg Neutrophils # Seg Neuts % (Manual) Lymphocytes % (Manual) Monocytes % (Manual) Nucleated RBC % Seg Neutrophils # Man Lymphocytes # (Manual) Monocytes # (Manual) Eosinophils # (Manual) Basophils # (Manual) ABG pH POC ABG pCO2 POC ABG pO2 ABG pO2 ABG HCO3 ABG O2 Saturation ABG Base Excess ABG Hemoglobin ABG Oxyhemoglobin ABG Sodium ABG Glucose Oxyhemoglobin Sodium Potassium Chloride Carbon Dioxide 16 L BUN 77 H Creatinine 4.7 H Glucose POC Glucose 66 L Calcium Phosphorus 7.50 H Magnesium 2.60 H Direct Bilirubin AST Alkaline Phosphatase Albumin 2.3 L Troponin T C-Reactive Protein Jdctx-7-Zrpxfxgvq PEP Interpretation Triglycerides Lipase HDL Cholesterol PTH Intact Arterial Blood Glucose Urine WBC (Auto) Urine Creatinine Urine Total Protein ZINA Screen Crossmatch 02/29/20 03/01/20 03/01/20 18:24 04:05 04:37 WBC Hgb RBC Hct MCV MCH RDW Plt Count Lymph % (Auto) Lymph # [place] % (Auto) [place] # Lymph # (Auto) [place] # (Auto) Seg Neutrophils % Seg Neutrophils # Seg Neuts % (Manual) Lymphocytes % (Manual) Monocytes % (Manual) Nucleated RBC % Seg Neutrophils # Man Lymphocytes # (Manual) Monocytes # (Manual) Eosinophils # (Manual) Basophils # (Manual) ABG pH 7.271 L 7.347 L POC ABG pCO2 POC ABG pO2 ABG pO2 133.5 H ABG HCO3 15.8 L ABG O2 Saturation ABG Base Excess -8.9 L ABG Hemoglobin 7.2 L 7.6 L ABG Oxyhemoglobin 93.4 L ABG Sodium ABG Glucose Oxyhemoglobin Sodium Potassium Chloride 107.6 H Carbon Dioxide 14 L BUN 83 H Creatinine 5.6 H Glucose POC Glucose Calcium Phosphorus 6.10 H Magnesium 2.40 H Direct Bilirubin AST Alkaline Phosphatase Albumin Troponin T C-Reactive Protein Wmszn-9-Gwskaoscy PEP Interpretation Triglycerides Lipase HDL Cholesterol PTH Intact Arterial Blood Glucose Urine WBC (Auto) Urine Creatinine Urine Total Protein ZINA Screen Crossmatch 03/01/20 03/01/20 03/01/20 11:06 16:22 18:12 WBC 30.5 H Hgb 6.2 L RBC 2.92 L Hct 20.8 L MCV 71 L MCH 21 L RDW 18.2 H Plt Count 560 H Lymph % (Auto) Lymph # [place] % (Auto) [place] # Lymph # (Auto) [place] # (Auto) Seg Neutrophils % Seg Neutrophils # Seg Neuts % (Manual) 79.0 H Lymphocytes % (Manual) 3.0 L Monocytes % (Manual) Nucleated RBC % Seg Neutrophils # Man 24.1 H Lymphocytes # (Manual) 0.9 L Monocytes # (Manual) 2.1 H Eosinophils # (Manual) Basophils # (Manual) ABG pH POC ABG pCO2 POC ABG pO2 ABG pO2 ABG HCO3 ABG O2 Saturation ABG Base Excess ABG Hemoglobin ABG Oxyhemoglobin ABG Sodium ABG Glucose Oxyhemoglobin Sodium Potassium 5.3 H D Chloride Carbon Dioxide 11 L BUN 77 H Creatinine 5.0 H Glucose 54 L POC Glucose 121 H Calcium Phosphorus Magnesium Direct Bilirubin AST Alkaline Phosphatase Albumin 3.0 L Troponin T C-Reactive Protein 36.50 H Fccnu-2-Fpctfsnym PEP Interpretation Triglycerides Lipase HDL Cholesterol PTH Intact Arterial Blood Glucose Urine WBC (Auto) Urine Creatinine Urine Total Protein ZINA Screen Crossmatch 03/01/20 03/01/20 03/01/20 18:30 23:37 Unknown WBC Hgb RBC Hct MCV MCH RDW Plt Count Lymph % (Auto) Lymph # [place] % (Auto) [place] # Lymph # (Auto) [place] # (Auto) Seg Neutrophils % Seg Neutrophils # Seg Neuts % (Manual) Lymphocytes % (Manual) Monocytes % (Manual) Nucleated RBC % Seg Neutrophils # Man Lymphocytes # (Manual) Monocytes # (Manual) Eosinophils # (Manual) Basophils # (Manual) ABG pH POC ABG pCO2 POC ABG pO2 ABG pO2 ABG HCO3 ABG O2 Saturation ABG Base Excess ABG Hemoglobin ABG Oxyhemoglobin ABG Sodium ABG Glucose Oxyhemoglobin Sodium Potassium Chloride Carbon Dioxide BUN Creatinine Glucose POC Glucose 125 H Calcium Phosphorus Magnesium Direct Bilirubin AST Alkaline Phosphatase Albumin Troponin T C-Reactive Protein Fdmnc-8-Jfwdggmdk PEP Interpretation Triglycerides Lipase 297 H HDL Cholesterol PTH Intact Arterial Blood Glucose Urine WBC (Auto) Urine Creatinine Urine Total Protein ZINA Screen Crossmatch See Detail 03/02/20 03/02/20 03/02/20 04:00 05:36 05:36 WBC 26.0 H Hgb 7.8 L RBC 3.26 L Hct 24.2 L MCV 74 L MCH 24 L RDW 21.3 H Plt Count 508 H Lymph % (Auto) Lymph # [place] % (Auto) [place] # Lymph # (Auto) [place] # (Auto) Seg Neutrophils % Seg Neutrophils # Seg Neuts % (Manual) 86.0 H Lymphocytes % (Manual) 4.0 L Monocytes % (Manual) Nucleated RBC % 2.0 H Seg Neutrophils # Man 22.4 H Lymphocytes # (Manual) 1.0 L Monocytes # (Manual) Eosinophils # (Manual) Basophils # (Manual) ABG pH POC ABG pCO2 27.8 L POC ABG pO2 ABG pO2 ABG HCO3 ABG O2 Saturation ABG Base Excess ABG Hemoglobin 8 L ABG Oxyhemoglobin ABG Sodium ABG Glucose Oxyhemoglobin Sodium Potassium Chloride Carbon Dioxide 17 L BUN 85 H Creatinine 5.6 H Glucose 109 H POC Glucose Calcium Phosphorus Magnesium 2.50 H Direct Bilirubin AST Alkaline Phosphatase Albumin 2.3 L Troponin T C-Reactive Protein Olhux-7-Gmvwhzfof PEP Interpretation Triglycerides Lipase HDL Cholesterol PTH Intact Arterial Blood Glucose Urine WBC (Auto) Urine Creatinine Urine Total Protein ZINA Screen Crossmatch 03/03/20 03/03/20 03/03/20 04:00 04:36 04:36 WBC Hgb RBC Hct MCV MCH RDW Plt Count Lymph % (Auto) Lymph # [place] % (Auto) [place] # Lymph # (Auto) [place] # (Auto) Seg Neutrophils % Seg Neutrophils # Seg Neuts % (Manual) Lymphocytes % (Manual) Monocytes % (Manual) Nucleated RBC % Seg Neutrophils # Man Lymphocytes # (Manual) Monocytes # (Manual) Eosinophils # (Manual) Basophils # (Manual) ABG pH POC ABG pCO2 31.8 L POC ABG pO2 ABG pO2 ABG HCO3 ABG O2 Saturation ABG Base Excess ABG Hemoglobin 8.6 L ABG Oxyhemoglobin ABG Sodium ABG Glucose Oxyhemoglobin Sodium 147 H Potassium Chloride 108.4 H Carbon Dioxide 16 L BUN 87 H Creatinine 6.2 H Glucose POC Glucose Calcium Phosphorus Magnesium 2.50 H Direct Bilirubin 1.0 H AST Alkaline Phosphatase Albumin 2.4 L Troponin T C-Reactive Protein Pnjnq-6-Ydlhaipsw PEP Interpretation Triglycerides Lipase 119 H HDL Cholesterol PTH Intact Arterial Blood Glucose Urine WBC (Auto) Urine Creatinine Urine Total Protein ZINA Screen Crossmatch 03/03/20 03/03/20 03/03/20 04:36 12:48 17:48 WBC 28.0 H Hgb 8.1 L RBC 3.41 L Hct 25.3 L MCV 74 L MCH 24 L RDW 20.8 H Plt Count 557 H Lymph % (Auto) Lymph # [place] % (Auto) [place] # Lymph # (Auto) [place] # (Auto) Seg Neutrophils % Seg Neutrophils # Seg Neuts % (Manual) 82.0 H Lymphocytes % (Manual) 4.0 L Monocytes % (Manual) Nucleated RBC % Seg Neutrophils # Man 23.0 H Lymphocytes # (Manual) 1.1 L Monocytes # (Manual) 2.0 H Eosinophils # (Manual) Basophils # (Manual) ABG pH POC ABG pCO2 POC ABG pO2 ABG pO2 ABG HCO3 ABG O2 Saturation ABG Base Excess ABG Hemoglobin ABG Oxyhemoglobin ABG Sodium ABG Glucose Oxyhemoglobin Sodium Potassium Chloride Carbon Dioxide BUN Creatinine Glucose POC Glucose 131 H 113 H Calcium Phosphorus Magnesium Direct Bilirubin AST Alkaline Phosphatase Albumin Troponin T C-Reactive Protein Fgdyi-9-Mrosbeckv PEP Interpretation Triglycerides Lipase HDL Cholesterol PTH Intact Arterial Blood Glucose Urine WBC (Auto) Urine Creatinine Urine Total Protein ZINA Screen Crossmatch 03/03/20 03/04/20 03/04/20 23:43 03:43 04:05 WBC Hgb RBC Hct MCV MCH RDW Plt Count Lymph % (Auto) Lymph # [place] % (Auto) [place] # Lymph # (Auto) [place] # (Auto) Seg Neutrophils % Seg Neutrophils # Seg Neuts % (Manual) Lymphocytes % (Manual) Monocytes % (Manual) Nucleated RBC % Seg Neutrophils # Man Lymphocytes # (Manual) Monocytes # (Manual) Eosinophils # (Manual) Basophils # (Manual) ABG pH POC ABG pCO2 POC ABG pO2 ABG pO2 57.4 L ABG HCO3 27.2 H ABG O2 Saturation 88.6 L ABG Base Excess ABG Hemoglobin ABG Oxyhemoglobin ABG Sodium ABG Glucose Oxyhemoglobin Sodium Potassium 3.3 L Chloride Carbon Dioxide BUN 65 H Creatinine 5.3 H Glucose 152 H POC Glucose 149 H Calcium Phosphorus Magnesium Direct Bilirubin 0.7 H AST Alkaline Phosphatase Albumin 2.5 L Troponin T C-Reactive Protein Xszbo-7-Uctaixsry PEP Interpretation Triglycerides Lipase HDL Cholesterol PTH Intact Arterial Blood Glucose Urine WBC (Auto) Urine Creatinine Urine Total Protein ZINA Screen Crossmatch 03/04/20 03/04/20 03/04/20 04:05 05:26 12:21 WBC 30.1 H Hgb 8.2 L RBC 3.44 L Hct 25.2 L MCV 73 L MCH 24 L RDW 20.7 H Plt Count 554 H Lymph % (Auto) 3.3 L Lymph # [place] % (Auto) [place] # Lymph # (Auto) 1.0 L [place] # (Auto) 2.0 H Seg Neutrophils % 88.6 H Seg Neutrophils # 26.6 H Seg Neuts % (Manual) Lymphocytes % (Manual) Monocytes % (Manual) Nucleated RBC % Seg Neutrophils # Man Lymphocytes # (Manual) Monocytes # (Manual) Eosinophils # (Manual) Basophils # (Manual) ABG pH POC ABG pCO2 POC ABG pO2 ABG pO2 ABG HCO3 ABG O2 Saturation ABG Base Excess ABG Hemoglobin ABG Oxyhemoglobin ABG Sodium ABG Glucose Oxyhemoglobin Sodium Potassium Chloride Carbon Dioxide BUN Creatinine Glucose POC Glucose 136 H 155 H Calcium Phosphorus Magnesium Direct Bilirubin AST Alkaline Phosphatase Albumin Troponin T C-Reactive Protein Lsykk-3-Wbtyxxwfu PEP Interpretation Triglycerides Lipase HDL Cholesterol PTH Intact Arterial Blood Glucose Urine WBC (Auto) Urine Creatinine Urine Total Protein ZINA Screen Crossmatch 03/04/20 03/04/20 03/04/20 18:02 19:00 23:24 WBC Hgb RBC Hct MCV MCH RDW Plt Count Lymph % (Auto) Lymph # [place] % (Auto) [place] # Lymph # (Auto) [place] # (Auto) Seg Neutrophils % Seg Neutrophils # Seg Neuts % (Manual) Lymphocytes % (Manual) Monocytes % (Manual) Nucleated RBC % Seg Neutrophils # Man Lymphocytes # (Manual) Monocytes # (Manual) Eosinophils # (Manual) Basophils # (Manual) ABG pH POC ABG pCO2 POC ABG pO2 ABG pO2 ABG HCO3 ABG O2 Saturation ABG Base Excess ABG Hemoglobin ABG Oxyhemoglobin ABG Sodium ABG Glucose Oxyhemoglobin Sodium Potassium Chloride Carbon Dioxide BUN Creatinine Glucose POC Glucose 124 H 115 H Calcium Phosphorus Magnesium Direct Bilirubin AST Alkaline Phosphatase Albumin Troponin T C-Reactive Protein Umylj-6-Eprnnyfrx PEP Interpretation Triglycerides Lipase 72 H HDL Cholesterol PTH Intact Arterial Blood Glucose Urine WBC (Auto) Urine Creatinine Urine Total Protein ZINA Screen Crossmatch 03/05/20 03/05/20 03/05/20 05:04 05:29 06:00 WBC Hgb RBC Hct MCV MCH RDW Plt Count Lymph % (Auto) Lymph # [place] % (Auto) [place] # Lymph # (Auto) [place] # (Auto) Seg Neutrophils % Seg Neutrophils # Seg Neuts % (Manual) Lymphocytes % (Manual) Monocytes % (Manual) Nucleated RBC % Seg Neutrophils # Man Lymphocytes # (Manual) Monocytes # (Manual) Eosinophils # (Manual) Basophils # (Manual) ABG pH POC ABG pCO2 POC ABG pO2 ABG pO2 62.5 L ABG HCO3 26.4 H ABG O2 Saturation 92.1 L ABG Base Excess ABG Hemoglobin 9.3 L ABG Oxyhemoglobin ABG Sodium ABG Glucose Oxyhemoglobin 89.9 L Sodium Potassium Chloride Carbon Dioxide BUN 54 H Creatinine 5.4 H Glucose 125 H POC Glucose 134 H Calcium Phosphorus Magnesium Direct Bilirubin 0.6 H AST Alkaline Phosphatase 133 H Albumin 2.5 L Troponin T C-Reactive Protein Vtfxm-2-Kpnavdjoi PEP Interpretation Triglycerides Lipase HDL Cholesterol PTH Intact Arterial Blood Glucose Urine WBC (Auto) Urine Creatinine Urine Total Protein ZINA Screen Crossmatch 03/05/20 03/05/20 03/05/20 12:18 18:01 21:39 WBC Hgb RBC Hct MCV MCH RDW Plt Count Lymph % (Auto) Lymph # [place] % (Auto) [place] # Lymph # (Auto) [place] # (Auto) Seg Neutrophils % Seg Neutrophils # Seg Neuts % (Manual) Lymphocytes % (Manual) Monocytes % (Manual) Nucleated RBC % Seg Neutrophils # Man Lymphocytes # (Manual) Monocytes # (Manual) Eosinophils # (Manual) Basophils # (Manual) ABG pH POC ABG pCO2 POC ABG pO2 ABG pO2 ABG HCO3 ABG O2 Saturation ABG Base Excess ABG Hemoglobin ABG Oxyhemoglobin ABG Sodium ABG Glucose Oxyhemoglobin Sodium Potassium Chloride Carbon Dioxide BUN Creatinine Glucose POC Glucose 118 H 108 H 123 H Calcium Phosphorus Magnesium Direct Bilirubin AST Alkaline Phosphatase Albumin Troponin T C-Reactive Protein Wdtfl-8-Mqdwivljy PEP Interpretation Triglycerides Lipase HDL Cholesterol PTH Intact Arterial Blood Glucose Urine WBC (Auto) Urine Creatinine Urine Total Protein ZINA Screen Crossmatch 03/06/20 03/06/20 03/06/20 04:40 04:41 05:44 WBC Hgb RBC Hct MCV MCH RDW Plt Count Lymph % (Auto) Lymph # [place] % (Auto) [place] # Lymph # (Auto) [place] # (Auto) Seg Neutrophils % Seg Neutrophils # Seg Neuts % (Manual) Lymphocytes % (Manual) Monocytes % (Manual) Nucleated RBC % Seg Neutrophils # Man Lymphocytes # (Manual) Monocytes # (Manual) Eosinophils # (Manual) Basophils # (Manual) ABG pH POC ABG pCO2 POC ABG pO2 64.9 L ABG pO2 ABG HCO3 ABG O2 Saturation ABG Base Excess ABG Hemoglobin 9.9 L ABG Oxyhemoglobin 90.5 L ABG Sodium ABG Glucose Oxyhemoglobin Sodium Potassium Chloride 94.7 L Carbon Dioxide BUN 70 H Creatinine 7.1 H Glucose 113 H POC Glucose 134 H Calcium Phosphorus Magnesium Direct Bilirubin AST Alkaline Phosphatase Albumin Troponin T C-Reactive Protein Fiptg-6-Vcwjmwxqn PEP Interpretation Triglycerides Lipase HDL Cholesterol PTH Intact Arterial Blood Glucose Urine WBC (Auto) Urine Creatinine Urine Total Protein ZINA Screen Crossmatch 03/06/20 03/06/20 03/06/20 08:54 11:56 18:19 WBC 31.5 H Hgb 8.7 L RBC Hct 27.8 L MCV 75 L MCH 23 L RDW 21.2 H Plt Count 516 H Lymph % (Auto) Lymph # [place] % (Auto) [place] # Lymph # (Auto) [place] # (Auto) Seg Neutrophils % Seg Neutrophils # Seg Neuts % (Manual) 93.0 H Lymphocytes % (Manual) 2.0 L Monocytes % (Manual) Nucleated RBC % Seg Neutrophils # Man 29.3 H Lymphocytes # (Manual) 0.6 L Monocytes # (Manual) Eosinophils # (Manual) 0.6 H Basophils # (Manual) ABG pH POC ABG pCO2 POC ABG pO2 ABG pO2 ABG HCO3 ABG O2 Saturation ABG Base Excess ABG Hemoglobin ABG Oxyhemoglobin ABG Sodium ABG Glucose Oxyhemoglobin Sodium Potassium Chloride Carbon Dioxide BUN Creatinine Glucose POC Glucose 131 H 117 H Calcium Phosphorus Magnesium Direct Bilirubin AST Alkaline Phosphatase Albumin Troponin T C-Reactive Protein Paged-0-Fwreawzmy PEP Interpretation Triglycerides Lipase HDL Cholesterol PTH Intact Arterial Blood Glucose Urine WBC (Auto) Urine Creatinine Urine Total Protein ZINA Screen Crossmatch 03/07/20 03/07/20 03/07/20 04:42 05:03 05:03 WBC 26.9 H Hgb 8.3 L RBC 3.50 L Hct 26.6 L MCV 76 L MCH 24 L RDW 21.3 H Plt Count 470 H Lymph % (Auto) Lymph # [place] % (Auto) [place] # Lymph # (Auto) [place] # (Auto) Seg Neutrophils % Seg Neutrophils # Seg Neuts % (Manual) 89.0 H Lymphocytes % (Manual) 4.0 L Monocytes % (Manual) Nucleated RBC % Seg Neutrophils # Man 23.9 H Lymphocytes # (Manual) 1.1 L Monocytes # (Manual) Eosinophils # (Manual) Basophils # (Manual) 0.3 H ABG pH POC ABG pCO2 POC ABG pO2 68.3 L ABG pO2 ABG HCO3 ABG O2 Saturation ABG Base Excess ABG Hemoglobin 9.3 L ABG Oxyhemoglobin ABG Sodium ABG Glucose 112 H Oxyhemoglobin Sodium Potassium Chloride 94.8 L Carbon Dioxide BUN 52 H Creatinine 6.3 H Glucose 106 H POC Glucose Calcium Phosphorus Magnesium Direct Bilirubin AST Alkaline Phosphatase 132 H Albumin 2.5 L Troponin T C-Reactive Protein Ovxdz-6-Evkdgroma PEP Interpretation Triglycerides Lipase HDL Cholesterol PTH Intact Arterial Blood Glucose 112 H Urine WBC (Auto) Urine Creatinine Urine Total Protein ZINA Screen Crossmatch 03/07/20 03/07/20 03/07/20 12:08 18:05 23:29 WBC Hgb RBC Hct MCV MCH RDW Plt Count Lymph % (Auto) Lymph # [place] % (Auto) [place] # Lymph # (Auto) [place] # (Auto) Seg Neutrophils % Seg Neutrophils # Seg Neuts % (Manual) Lymphocytes % (Manual) Monocytes % (Manual) Nucleated RBC % Seg Neutrophils # Man Lymphocytes # (Manual) Monocytes # (Manual) Eosinophils # (Manual) Basophils # (Manual) ABG pH POC ABG pCO2 POC ABG pO2 ABG pO2 ABG HCO3 ABG O2 Saturation ABG Base Excess ABG Hemoglobin ABG Oxyhemoglobin ABG Sodium ABG Glucose Oxyhemoglobin Sodium Potassium Chloride Carbon Dioxide BUN Creatinine Glucose POC Glucose 114 H 111 H 118 H Calcium Phosphorus Magnesium Direct Bilirubin AST Alkaline Phosphatase Albumin Troponin T C-Reactive Protein Cweqw-2-Sotoujpjs PEP Interpretation Triglycerides Lipase HDL Cholesterol PTH Intact Arterial Blood Glucose Urine WBC (Auto) Urine Creatinine Urine Total Protein ZINA Screen Crossmatch 03/08/20 03/08/20 03/08/20 04:50 17:45 23:53 WBC Hgb RBC Hct MCV MCH RDW Plt Count Lymph % (Auto) Lymph # [place] % (Auto) [place] # Lymph # (Auto) [place] # (Auto) Seg Neutrophils % Seg Neutrophils # Seg Neuts % (Manual) Lymphocytes % (Manual) Monocytes % (Manual) Nucleated RBC % Seg Neutrophils # Man Lymphocytes # (Manual) Monocytes # (Manual) Eosinophils # (Manual) Basophils # (Manual) ABG pH POC ABG pCO2 POC ABG pO2 ABG pO2 ABG HCO3 ABG O2 Saturation ABG Base Excess ABG Hemoglobin ABG Oxyhemoglobin ABG Sodium ABG Glucose Oxyhemoglobin Sodium Potassium Chloride 95.5 L Carbon Dioxide BUN 52 H Creatinine 6.2 H Glucose 109 H POC Glucose 106 H 106 H Calcium Phosphorus Magnesium Direct Bilirubin AST Alkaline Phosphatase Albumin Troponin T C-Reactive Protein Wjscf-3-Xelaihnrk PEP Interpretation Triglycerides Lipase HDL Cholesterol PTH Intact Arterial Blood Glucose Urine WBC (Auto) Urine Creatinine Urine Total Protein ZINA Screen Crossmatch 03/09/20 03/09/20 03/09/20 04:00 07:53 18:22 WBC 21.9 H Hgb 7.5 L RBC 3.27 L Hct 24.3 L MCV 74 L MCH 23 L RDW 20.9 H Plt Count 488 H Lymph % (Auto) Lymph # [place] % (Auto) [place] # Lymph # (Auto) [place] # (Auto) Seg Neutrophils % Seg Neutrophils # Seg Neuts % (Manual) Lymphocytes % (Manual) Monocytes % (Manual) Nucleated RBC % Seg Neutrophils # Man Lymphocytes # (Manual) Monocytes # (Manual) Eosinophils # (Manual) Basophils # (Manual) ABG pH POC ABG pCO2 POC ABG pO2 ABG pO2 ABG HCO3 ABG O2 Saturation ABG Base Excess ABG Hemoglobin ABG Oxyhemoglobin ABG Sodium ABG Glucose Oxyhemoglobin Sodium Potassium Chloride 92.8 L Carbon Dioxide BUN 74 H Creatinine 7.8 H Glucose POC Glucose 114 H Calcium Phosphorus Magnesium Direct Bilirubin AST Alkaline Phosphatase Albumin Troponin T C-Reactive Protein Zcvxn-7-Tzdzaccua PEP Interpretation Triglycerides Lipase HDL Cholesterol PTH Intact Arterial Blood Glucose Urine WBC (Auto) Urine Creatinine Urine Total Protein ZINA Screen Crossmatch 03/10/20 03/10/20 03/10/20 04:37 04:37 09:53 WBC 16.0 H Hgb 7.1 L RBC 2.99 L Hct 22.4 L MCV 75 L MCH 24 L RDW 21.5 H Plt Count Lymph % (Auto) 9.2 L Lymph # [place] % (Auto) 9.9 H [place] # Lymph # (Auto) [place] # (Auto) 1.6 H Seg Neutrophils % 79.2 H Seg Neutrophils # 12.6 H Seg Neuts % (Manual) Lymphocytes % (Manual) Monocytes % (Manual) Nucleated RBC % Seg Neutrophils # Man Lymphocytes # (Manual) Monocytes # (Manual) Eosinophils # (Manual) Basophils # (Manual) ABG pH POC ABG pCO2 POC ABG pO2 ABG pO2 ABG HCO3 ABG O2 Saturation ABG Base Excess ABG Hemoglobin 7.7 L ABG Oxyhemoglobin ABG Sodium 134.7 L ABG Glucose 103 H Oxyhemoglobin Sodium Potassium Chloride Carbon Dioxide BUN 45 H Creatinine 5.6 H Glucose 108 H POC Glucose Calcium Phosphorus Magnesium Direct Bilirubin AST Alkaline Phosphatase Albumin Troponin T C-Reactive Protein Szssw-4-Cpzrffqcf PEP Interpretation Triglycerides Lipase HDL Cholesterol PTH Intact Arterial Blood Glucose 103 H Urine WBC (Auto) Urine Creatinine Urine Total Protein ZINA Screen Crossmatch 03/10/20 03/11/20 03/11/20 23:46 02:52 03:25 WBC Hgb RBC Hct MCV MCH RDW Plt Count Lymph % (Auto) Lymph # [place] % (Auto) [place] # Lymph # (Auto) [place] # (Auto) Seg Neutrophils % Seg Neutrophils # Seg Neuts % (Manual) Lymphocytes % (Manual) Monocytes % (Manual) Nucleated RBC % Seg Neutrophils # Man Lymphocytes # (Manual) Monocytes # (Manual) Eosinophils # (Manual) Basophils # (Manual) ABG pH POC ABG pCO2 POC ABG pO2 77.5 L ABG pO2 ABG HCO3 ABG O2 Saturation ABG Base Excess ABG Hemoglobin 8.0 L ABG Oxyhemoglobin ABG Sodium 135.8 L ABG Glucose Oxyhemoglobin Sodium Potassium Chloride Carbon Dioxide BUN Creatinine Glucose POC Glucose 116 H Calcium Phosphorus Magnesium Direct Bilirubin AST Alkaline Phosphatase Albumin Troponin T 0.093 H C-Reactive Protein Vieup-7-Tsawtiiwt PEP Interpretation Triglycerides Lipase HDL Cholesterol PTH Intact Arterial Blood Glucose Urine WBC (Auto) Urine Creatinine Urine Total Protein ZINA Screen Crossmatch 03/11/20 03/11/20 03/11/20 04:32 04:32 06:16 WBC 22.4 H Hgb 7.8 L RBC 3.32 L Hct 25.0 L MCV 75 L MCH 24 L RDW 21.4 H Plt Count 553 H Lymph % (Auto) Lymph # [place] % (Auto) [place] # Lymph # (Auto) [place] # (Auto) Seg Neutrophils % Seg Neutrophils # Seg Neuts % (Manual) 81.0 H Lymphocytes % (Manual) 8.0 L Monocytes % (Manual) 8.0 H Nucleated RBC % Seg Neutrophils # Man 18.1 H Lymphocytes # (Manual) Monocytes # (Manual) 1.8 H Eosinophils # (Manual) Basophils # (Manual) 0.2 H ABG pH POC ABG pCO2 POC ABG pO2 ABG pO2 ABG HCO3 ABG O2 Saturation ABG Base Excess ABG Hemoglobin ABG Oxyhemoglobin ABG Sodium ABG Glucose Oxyhemoglobin Sodium Potassium Chloride 96.6 L Carbon Dioxide BUN 64 H Creatinine 6.5 H Glucose 101 H POC Glucose 142 H Calcium Phosphorus Magnesium Direct Bilirubin AST 41 H Alkaline Phosphatase Albumin 2.7 L Troponin T C-Reactive Protein Vaezo-6-Ilubzdjpi PEP Interpretation Triglycerides Lipase HDL Cholesterol PTH Intact Arterial Blood Glucose Urine WBC (Auto) Urine Creatinine Urine Total Protein ZINA Screen Crossmatch 03/11/20 03/11/20 03/11/20 06:50 07:31 14:31 WBC Hgb 7.7 L RBC Hct 23.7 L MCV MCH RDW Plt Count 553 H Lymph % (Auto) Lymph # [place] % (Auto) [place] # Lymph # (Auto) [place] # (Auto) Seg Neutrophils % Seg Neutrophils # Seg Neuts % (Manual) Lymphocytes % (Manual) Monocytes % (Manual) Nucleated RBC % Seg Neutrophils # Man Lymphocytes # (Manual) Monocytes # (Manual) Eosinophils # (Manual) Basophils # (Manual) ABG pH POC ABG pCO2 POC ABG pO2 ABG pO2 67.8 L ABG HCO3 ABG O2 Saturation ABG Base Excess ABG Hemoglobin ABG Oxyhemoglobin ABG Sodium ABG Glucose Oxyhemoglobin Sodium Potassium Chloride Carbon Dioxide BUN Creatinine Glucose POC Glucose Calcium Phosphorus Magnesium Direct Bilirubin AST Alkaline Phosphatase Albumin Troponin T 0.085 H C-Reactive Protein [place]-7-Wgytvfrlj PEP Interpretation Triglycerides 247 H Lipase HDL Cholesterol 28 L PTH Intact Arterial Blood Glucose Urine WBC (Auto) Urine Creatinine Urine Total Protein ZINA Screen Crossmatch 03/12/20 03:46 WBC Hgb RBC Hct MCV MCH RDW Plt Count Lymph % (Auto) Lymph # [place] % (Auto) [place] # Lymph # (Auto) [place] # (Auto) Seg Neutrophils % Seg Neutrophils # Seg Neuts % (Manual) Lymphocytes % (Manual) Monocytes % (Manual) Nucleated RBC % Seg Neutrophils # Man Lymphocytes # (Manual) Monocytes # (Manual) Eosinophils # (Manual) Basophils # (Manual) ABG pH POC ABG pCO2 POC ABG pO2 78.3 L ABG pO2 ABG HCO3 ABG O2 Saturation ABG Base Excess ABG Hemoglobin 7.9 L ABG Oxyhemoglobin ABG Sodium 134.8 L ABG Glucose Oxyhemoglobin Sodium Potassium Chloride Carbon Dioxide BUN Creatinine Glucose POC Glucose Calcium Phosphorus Magnesium Direct Bilirubin AST Alkaline Phosphatase Albumin Troponin T C-Reactive Protein Wrwto-2-Dejmzcfid PEP Interpretation Triglycerides Lipase HDL Cholesterol PTH Intact Arterial Blood Glucose Urine WBC (Auto) Urine Creatinine Urine Total Protein ZINA Screen Crossmatch Chest x-ray: image reviewed (mild interstitial edema overall improved) Allied health notes reviewed: nursing
--- NOTE | 2020-03-12 12:22 | Progress Note ---
Assessment and Plan Cultures: Urine culture grew 10-100,000 usual xavier. Blood culture 02/26/2020 no growth 02/29/2020 sputum culture: rare usual xavier 03/06/2020 blood culture: no growth 03/07/2020 sputum culture: no growth thus far 03/11/2020 ET aspirate: no growth thus far Assessment: 39 years old female with history of hypertension, previous kidney stone, hyperlipidemia and obesity admitted on 02/24/2020 due to a week history of severe epigastric abdominal pain radiated to the right flank and back: #Acute sepsis: Likely secondary to severe pancreatitis and related complications. Remains critically ill. #Acute severe pancreatitis: Unclear etiology. Initial non-contrasted CT showed no evidence of necrosis or pseudocyst or abscess formation. Repeat CT 03/05 with interval worsening of acute pancreatitis without clear evidence of necrosis, however was done without IV contrast due to her renal function. #Acute renal failure: now requiring dialysis. Nephrology on board. #Acute respiratory hypoxic failure: re-intubated 03/11/2020, back on the vent. #?Alcohol abuse Recommendations: -continue with IV Meropenem, renally dosed, D10 today, probably stop at 14 days depending on clinical status -ongoing fevers likely to due severe pancreatitis and ?related complications Louie Graves MD, FACP [facility] ([facility] C: [phone] O: [phone] F: [phone] Subjective Date of service: 03/12/20 Principal diagnosis: HTNsive urgency; Morbid obesity; Ac. pancreatitis; Abdom inal pain Interval history: Low grade temperatures continue. Remains on the vent. Objective - Exam Narrative Exam: Physical Exam: Constitutional: sedated, intubated, on the vent Head, Ears, Nose: Normocephalic, atraumatic. External ears, nose normal Eyes: Conjunctivae/corneas clear. No icterus. No ptosis. Neck: intubated Cardiovascular: S1, S2 + Respiratory: AE fair but reduced in the bases GI: distended, no tenderness, bowel sounds + Musculoskeletal: No pedal edema, no cyanosis. HD cath + Skin: No rash or abscess Hem/Lymphatic: No palpable cervical or supraclavicular nodes. No lymphangitis Psych: no agitation, calm Neurological: sedated, intubated, on the vent - Constitutional Vitals: Vital Signs Temp Pulse Resp BP Pulse Ox 99.4 F 91 H 20 125/75 98 03/12/20 11:56 03/12/20 11:52 03/12/20 10:15 03/12/20 11:52 03/12/20 11:52 Temperature -Last 24 Hours Temperature 99.4 F Temperature 100.6 F Temperature 100.6 F Temperature 99.8 F Temperature 99.6 F Temperature 98.5 F Temperature 98.6 F Temperature 98.5 F - Labs CBC & Chem 7: 03/11/20 07:31 03/11/20 04:32 Labs: Abnormal lab results 03/11/20 03/12/20 Range/Units 14:31 03:46 POC ABG pO2 78.3 L (83-108) mmHg ABG Hemoglobin 7.9 L (12.0-17.5) ABG Sodium 134.8 L (136.0-145.0) mmol/L Troponin T 0.085 H (0.00-0.029) ng/mL Triglycerides 247 H (2-149) mg/dL HDL Cholesterol 28 L (40-59) mg/dL
--- NOTE | 2020-03-12 12:25 | Vascular Lab Report ---
DUPLEX DOPPLER LOWER EXTREMITY VEINS, BILATERAL INDICATION / CLINICAL INFORMATION: Morbidly obese. History of sepsis and acute pancreatitis. Renal failure. Altered mental status. Venti lator patient. TECHNIQUE: Duplex doppler imaging was performed through the veins of both lower extremities using venous angle whit and other maneuvers. COMPARISON: None available. FINDINGS: RIGHT COMMON FEMORAL VEIN: Negative. RIGHT FEMORAL VEIN: Negative. RIGHT POPLITEAL VEIN: Negative. RIGHT CALF VEINS: Negative. LEFT COMMON FEMORAL VEIN: Negative. LEFT FEMORAL VEIN: Negative. LEFT POPLITEAL VEIN: Negative. LEFT CALF VEINS: Negative. ADDITIONAL FINDINGS: There is no evidence of a popliteal cyst or other significant abnormality. IMPRESSION: No sonographic evidence for DVT in either lower extremity. Signer Name: Sabas Garber MD Signed: 03/12/2020 12:20 PM Workstation Name: [id number]
--- NOTE | 2020-03-12 17:07 | Gastroenterology Progress Note ---
Assessment and Plan (1) Acute pancreatitis - - unclear etiology for pancreatitis. 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 No bile duct dilation noted on imaging. H/o alcohol use. - multi-organ failure. - on HD. - CT noncontrast on 03/05 with worsening inflammation but no necrosis. - persistent recurrent fever. - wbc trending down. - extubated on 03/10/2020 but reintubated for respiratory distress on 03/10/2020. - on CPAP trial today. Alert. Rec - cont with supportive care - nutrition via [place]. - may need MRCP at some point in the future but no need urgently. - ID on board. currently on meropenem. . (2) Altered mental status - more alert today. - will follow. Subjective Date of service: 03/12/20 Principal diagnosis: HTNsive urgency; Morbid obesity; Ac. pancreatitis; Abdominal pain Interval history: Remains intubated. doing CPAP trial. Alert. Objective - Constitutional Vitals: Temp Pulse Resp BP Pulse Ox 99.5 F 106 H 28 H 135/70 98 03/12/20 16:00 03/12/20 16:00 03/12/20 16:00 03/12/20 16:00 03/12/20 16:00 General appearance: no acute distress - EENT ENT: hearing intact - Respiratory Respiratory effort: normal - Cardiovascular Rhythm: regular Heart Sounds: Present: S1 & S2 - Gastrointestinal General gastrointestinal: Present: soft, non-tender, non-distended - Labs CBC & Chem 7: 03/11/20 07:31 03/11/20 04:32 Labs: Laboratory Results - last 24 hr 03/11/20 03/11/20 03/12/20 17:47 23:31 03:46 ABG pH 7.421 POC ABG pCO2 41.9 POC ABG pO2 78.3 L POC ABG HCO3 26.6 POC ABG Base Excess 2.0 ABG Hemoglobin 7.9 L ABG Sodium 134.8 L ABG Potassium 3.9 ABG Chloride 100.0 ABG Glucose 82 FiO2 30.0 POC Glucose 83 100 Arterial Blood Glucose 82 Arterial Blood Ionized Calcium 4.8 03/12/20 03/12/20 05:14 12:07 ABG pH POC ABG pCO2 POC ABG pO2 POC ABG HCO3 POC ABG Base Excess ABG Hemoglobin ABG Sodium ABG Potassium ABG Chloride ABG Glucose FiO2 POC Glucose 93 90 Arterial Blood Glucose Arterial Blood Ionized Calcium
[2020-03-12] MEDS: MEROPENEM/NS 1 GRAM/100 ML 1 GRAM/100 ML BAG IV SCH (17:20)
[2020-03-12] MEDS: QUEtiapine 200 MG TAB PO SCH (22:19)
[2020-03-13] MEDS: fentaNYL DRIP Premix 2,000 MCG/100 ML BAG IV SCH ×3 (04:15→19:22)
[2020-03-13] MEDS: IPRATROPIUM/ALBUTEROL SULFATE 3 ML AMPUL.NEB IH SCH ×4 (04:28→21:20)
[2020-03-13 04:32] LABS: ABG HCO3 27.4 mmol/L (20.0-26.0); ABG Methemoglobin 0.5 % (0.0-1.5); ABG Oxygen Saturation 96.8 % (95.0-99.0); ABG PCO2 46.6 mm Hg; ABG PH 7.387 pH Units (7.350-7.450); ABG PO2 83.2 mm Hg (80.0-90.0)
[2020-03-13 05:31] LABS: Hemoglobin 6.6 gm/dl (10.1-14.3)
[2020-03-13 05:36] LABS: Hematocrit 19.5 % (30.3-42.9)
--- NOTE | 2020-03-13 06:00 | XRay Report ---
CHEST 1 VIEW INDICATION: follow up respiratory failure COMPARISON: One day prior. FINDINGS: Support devices: Unchanged. Heart: Enlarged but stable Lungs/Pleura: Atelectasis in the left base has improved slightly. No definite acute disease. IMPRESSION: 1. No acute disease. Signer Name: Danny Lopez MD Signed: 03/13/2020 5:56 AM Workstation Name: [id number]
[2020-03-13] MEDS: hydrALAZINE 25 MG TAB PO SCH ×3 (06:41→21:54)
[2020-03-13] MEDS: HEPARIN 5,000 UNIT/1 ML VIAL SUB-Q SCH ×3 (06:42→21:54)
--- NOTE | 2020-03-13 08:07 | Progress Note ---
<SURENDRA BLANCO - Last Filed: 03/13/20 08:06> Assessment and Plan Nonspecific elevated troponin Respiratory failure COVID 19 test was negative. Acute pancreatitis Hypertension Acute kidney injury requiring hemodialysis Severe anemia s/p transfusion of PRBCs Sepsis with intermittent fevers Echocardiogram showed a mildly dilated left atrium, moderate to severe LVH but a normal left ventricular systolic function, ejection fraction 60-65%. Conservative cardiac management. Subjective Date of service: 03/13/20 Principal diagnosis: HTNsive urgency; Morbid obesity; Ac. pancreatitis; Abdominal pain Interval history: Patient remains intubated on the vent. Objective Vital Signs Temp Pulse Pulse Pulse Resp Resp Resp 03/13/20 08:01 96 H 21 03/13/20 07:59 93 H 03/13/20 07:45 98 H 19 03/13/20 07:30 91 H 20 03/13/20 07:15 91 H 20 03/13/20 07:00 91 H 20 03/13/20 06:45 92 H 20 03/13/20 06:41 87 03/13/20 06:30 87 20 03/13/20 06:15 88 20 03/13/20 06:00 90 20 03/13/20 05:45 91 H 20 03/13/20 05:30 92 H 20 03/13/20 05:15 94 H 20 03/13/20 05:00 92 H 20 03/13/20 04:45 91 H 20 03/13/20 04:30 93 H 19 03/13/20 04:26 96 H 03/13/20 04:15 91 H 20 03/13/20 04:00 94 H 90 16 03/13/20 03:45 91 H 20 03/13/20 03:30 89 20 03/13/20 03:29 99.2 F 03/13/20 03:28 99.2 F 03/13/20 03:15 89 20 03/13/20 03:00 89 20 03/13/20 02:45 89 20 03/13/20 02:30 89 20 03/13/20 02:15 91 H 20 03/13/20 02:00 89 20 03/13/20 01:45 92 H 20 03/13/20 01:30 93 H 20 03/13/20 01:15 93 H 20 03/13/20 01:00 93 H 20 03/13/20 00:45 92 H 21 03/13/20 00:30 93 H 20 03/13/20 00:15 95 H 20 03/13/20 00:00 99.4 F 93 H 95 H 20 03/12/20 23:49 95 H 20 03/12/20 23:45 96 H 20 03/12/20 23:40 95 H 03/12/20 23:30 96 H 20 03/12/20 23:15 98 H 22 03/12/20 23:00 96 H 20 03/12/20 22:45 104 H 20 03/12/20 22:30 105 H 20 03/12/20 22:20 109 H 03/12/20 22:15 125 H 37 H 03/12/20 22:00 101 H 19 20 03/12/20 21:45 101 H 20 03/12/20 21:30 101 H 21 03/12/20 21:15 100 H 20 03/12/20 21:00 103 H 18 03/12/20 20:50 106 H 20 03/12/20 20:45 101 H 19 03/12/20 20:30 107 H 24 03/12/20 20:15 108 H 20 03/12/20 20:00 105 H 105 H 23 03/12/20 19:45 100.5 F H 122 H 28 H 03/12/20 19:36 106 H 28 H 03/12/20 19:30 107 H 31 H 03/12/20 19:15 112 H 31 H 03/12/20 19:01 105 H 31 H 03/12/20 18:45 108 H 25 H 03/12/20 18:31 120 H 22 03/12/20 18:15 100 H 26 H 03/12/20 18:00 100 H 25 H 03/12/20 17:45 103 H 22 03/12/20 17:30 106 H 26 H 03/12/20 17:15 111 H 22 03/12/20 17:00 106 H 32 H 03/12/20 16:45 104 H 30 H 03/12/20 16:31 109 H 30 H 03/12/20 16:15 105 H 27 H 03/12/20 16:00 99.5 F 103 H 106 H 32 H 03/12/20 15:45 107 H 21 03/12/20 15:34 107 H 03/12/20 15:30 116 H 28 H 03/12/20 15:22 103 H 23 03/12/20 15:15 92 H 21 03/12/20 15:00 91 H 20 03/12/20 14:59 87 22 03/12/20 14:45 85 20 03/12/20 14:30 86 20 03/12/20 14:15 84 20 03/12/20 14:00 86 20 03/12/20 13:45 82 20 03/12/20 13:30 87 20 03/12/20 13:15 89 20 03/12/20 13:00 84 20 03/12/20 12:45 86 15 03/12/20 12:30 86 20 03/12/20 12:15 89 20 03/12/20 12:00 100 H 89 20 03/12/20 11:56 99.4 F 03/12/20 11:52 91 H 03/12/20 11:45 94 H 22 03/12/20 11:30 91 H 20 03/12/20 11:15 87 20 03/12/20 11:00 88 20 03/12/20 10:45 88 20 03/12/20 10:30 89 20 03/12/20 10:15 95 H 20 03/12/20 10:04 99 H 03/12/20 10:00 104 H 14 03/12/20 09:45 94 H 20 03/12/20 09:42 95 H 03/12/20 09:30 96 H 20 03/12/20 09:15 96 H 20 03/12/20 09:00 96 H 20 03/12/20 08:45 97 H 20 03/12/20 08:38 102 H 23 03/12/20 08:30 98 H 20 03/12/20 08:15 104 H 24 03/12/20 08:09 99 H BP Pulse Ox 03/13/20 08:01 137/88 100 03/13/20 07:59 137/88 100 03/13/20 07:45 137/85 98 03/13/20 07:30 121/75 97 03/13/20 07:15 119/73 97 03/13/20 07:00 122/77 98 03/13/20 06:45 140/92 98 03/13/20 06:41 118/72 03/13/20 06:30 118/72 100 03/13/20 06:15 119/72 100 03/13/20 06:00 122/76 99 03/13/20 05:45 123/82 98 03/13/20 05:30 131/79 100 03/13/20 05:15 127/79 98 03/13/20 05:00 128/77 97 03/13/20 04:45 123/78 98 03/13/20 04:30 124/82 98 03/13/20 04:26 115/72 98 03/13/20 04:15 115/72 100 03/13/20 04:00 112/73 100 03/13/20 03:45 112/62 97 03/13/20 03:30 108/64 96 03/13/20 03:29 03/13/20 03:28 03/13/20 03:15 110/70 97 03/13/20 03:00 116/70 97 03/13/20 02:45 109/69 97 03/13/20 02:30 107/69 97 03/13/20 02:15 116/71 97 03/13/20 02:00 111/66 97 03/13/20 01:45 110/70 97 03/13/20 01:30 89/47 97 03/13/20 01:15 113/65 97 03/13/20 01:00 101/61 100 03/13/20 00:45 111/60 99 03/13/20 00:30 105/64 100 03/13/20 00:15 108/62 100 03/13/20 00:00 106/59 100 03/12/20 23:49 113/56 100 03/12/20 23:45 113/56 100 03/12/20 23:40 113/66 100 03/12/20 23:30 113/66 100 03/12/20 23:15 117/71 99 03/12/20 23:00 116/71 100 03/12/20 22:45 131/78 99 03/12/20 22:30 121/81 99 03/12/20 22:20 157/102 03/12/20 22:15 131/83 97 03/12/20 22:00 131/83 97 03/12/20 21:45 134/82 98 03/12/20 21:30 128/74 98 03/12/20 21:15 126/79 98 03/12/20 21:00 134/82 96 03/12/20 20:50 03/12/20 20:45 140/81 100 03/12/20 20:30 148/79 98 03/12/20 20:15 145/71 100 03/12/20 20:00 150/71 98 03/12/20 19:45 142/87 97 03/12/20 19:36 154/94 99 03/12/20 19:30 154/94 98 03/12/20 19:15 100 03/12/20 19:01 126/76 99 03/12/20 18:45 126/76 99 03/12/20 18:31 126/76 96 03/12/20 18:15 126/76 99 03/12/20 18:00 126/74 99 03/12/20 17:45 126/73 99 03/12/20 17:30 128/70 98 03/12/20 17:15 136/73 100 03/12/20 17:00 121/62 97 03/12/20 16:45 138/74 99 03/12/20 16:31 138/74 99 03/12/20 16:15 138/74 98 03/12/20 16:00 135/70 98 03/12/20 15:45 137/72 99 03/12/20 15:34 185/98 03/12/20 15:30 185/98 94 03/12/20 15:22 160/78 98 03/12/20 15:15 137/72 99 03/12/20 15:00 140/71 95 03/12/20 14:59 03/12/20 14:45 122/76 100 03/12/20 14:30 122/69 100 03/12/20 14:15 119/71 100 03/12/20 14:00 113/71 100 03/12/20 13:45 117/68 99 03/12/20 13:30 118/67 100 03/12/20 13:15 128/80 99 03/12/20 13:00 113/66 100 03/12/20 12:45 122/65 99 03/12/20 12:30 116/63 99 03/12/20 12:15 115/62 98 03/12/20 12:00 125/75 100 03/12/20 11:56 03/12/20 11:52 125/75 98 03/12/20 11:45 125/75 97 03/12/20 11:30 101/62 99 03/12/20 11:15 108/57 99 03/12/20 11:00 118/63 99 03/12/20 10:45 126/64 99 03/12/20 10:30 111/59 98 03/12/20 10:15 137/68 99 03/12/20 10:04 128/86 03/12/20 10:00 128/86 100 03/12/20 09:45 107/66 98 03/12/20 09:42 120/61 03/12/20 09:30 120/61 98 03/12/20 09:15 113/59 98 03/12/20 09:00 117/61 97 03/12/20 08:45 114/62 97 03/12/20 08:38 03/12/20 08:30 116/63 97 03/12/20 08:15 117/73 98 03/12/20 08:09 115/65 100 - Physical Examination General: Other (intubated on the vent) Cardiac: Positive: Reg Rate and Rhythm - Labs and Meds CBC 03/13/20 Range/Units 04:00 Hgb 6.6 L (10.1-14.3) gm/dl Hct 19.5 L* (30.3-42.9) % Plt Count 603 H (140-440) K/mm3 - Allied health notes Allied health notes reviewed: RT <SAURABH RONDON - Last Filed: 03/24/20 23:17> Assessment and Plan I SAWT HIS PT & AGREE WITH THE Dx & Tx PLAN. Objective Vital Signs Temp Pulse Resp BP Pulse Ox 03/24/20 15:59 98.2 F 96 H 20 160/102 98 03/24/20 11:23 98 03/24/20 11:17 110 H 151/94 03/24/20 04:31 98.6 F 102 H 20 113/73 96 - Labs and Meds Comprehensive Metabolic Panel 03/24/20 Range/Units 04:18 Sodium 136 L (137-145) mmol/L Potassium 4.2 (3.6-5.0) mmol/L Chloride 94.4 L (98-107) mmol/L Carbon Dioxide 25 (22-30) mmol/L BUN 21 H (7-17) mg/dL Creatinine 3.6 H (0.6-1.2) mg/dL Glucose 80 (65-100) mg/dL Calcium 9.9 (8.4-10.2) mg/dL
[2020-03-13] MEDS ORDERED: SODIUM CHLORIDE 0.9% 500 ML 500 ML IV ONE (08:16)
--- NOTE | 2020-03-13 08:23 | Progress Note ---
Assessment and Plan Assessment and plan: --Anemia; hemoglobin 6.6 today No external evidence of bleeding Patient already received 2 units PRBC in the past Transfuse additional 1 unit PRBC today GI following --JUANIS/worsening renal function Initiated hemodialysis 03/03/2020. Hemodialysis per schedule nephrology following --Ac.hypoxic resp. failure /reintubated [03/11/20] Due to acute hypoxic respiratory failure early this morning continue ventilatory support, pulmonary critical following Wean as tolerated and extubate --Acute hypoxic resp failure; intubated 02/29/20/extubated 03/10/20 Reintubated on 03/11/2020 --Chest pain/positive troponins;NSTEMI 2 Probably nonspecific , patient has acute kidney injury on dialysis continue current med management, follow serial cardiac enzymes, follow cardiology evaluation and recommendation EF 60-65% on ECHO --Severe sepsis secondary to pneumonia and pancreatitis; Worsening bibasilar opacities on chest x-ray leukocytosis, tachycardia, tachypnea, fever, infiltrate on chest x-ray. Continue meropenem, follow cultures, ID following. --Persistent fevers; Probably secondary sepsis due to acute pancreatitis Patient is on meropenem Cultures negative to date -- Acute severe pancreatitis Initial non-contrasted CT showed no evidence of necrosis or pseudocyst or abscess formation. Repeat CT 03/05 with interval worsening of acute pancreatitis without clear evidence of necrosis with increased jessica-pancreatic fat stranding and disorganized fluid, GI following -- Bilateral pleural effusions. Etiology secondary to above Compressive atelectasis --Severe metabolic encephalopathy Probably secondary alcohol withdrawal symptoms Treat the underlying cause,[facility] protocol, supportive care --Alcohol withdrawal closely monitor , Ativan as needed Continue [facility] protocol --Worsening leukocytosis Secondary to sepsis due to bibasilar pneumonia, acute pancreatitis, ID and GI following -- Hypertensive emergency POA s/p Cardene drip, closely monitor Blood pressures uncontrolled IV labetalol, PRN --Severe metabolic acidosis; Management per nephrology --Severe protein calorie malnutrition and hypoalbuminemia Nutrition supplements, nutrition consult and supportive care --Medical noncompliance Patient was counseled upon admission. -- DVT prophylaxis Patient placed on subcutaneous heparin. --Obesity; BMI 37.9 patient needs weight reduction when medically stable. -- Full code status Follow GI and pulmonary evaluation and recommendations We will closely monitor the patient and adjust the management as needed Restraints for agitation The high probability of a clinically significant, sudden or life threatening deterioration of the [GI, CVS, renal, respiratory and metabolic] system(s) required my full and direct attention, intervention and personal management. The aggregate critical care time was [32] minutes. This time is in addition to time spent performing reported procedures but includes the fol lowing: [x] Data Review and interpretation [x] Patient assessment and monitoring of vital signs [x] Documentation [x] Medication orders and management History Interval history: I have seen and examined the patient at the bedside in ICU Patient's chart and medications reviewed Patient's remains intubated on ventilator support Alert and awake Significant drop in H&H No external evidence of bleeding Vital signs reviewed Hospitalist Physical - Constitutional Vitals: Temp Pulse Resp BP Pulse Ox 98.3 F 97 H 21 133/82 100 03/13/20 07:30 03/13/20 08:15 03/13/20 08:01 03/13/20 08:15 03/13/20 08:01 General appearance: Present: no acute distress, well-nourished, obese, other (Intubated) - EENT Eyes: Present: PERRL, EOM intact - Neck Neck: Present: supple, normal ROM - Respiratory Respiratory effort: normal Respiratory: bilateral: diminished, rhonchi, negative: rales, wheezing - Cardiovascular Rhythm: regular Heart Sounds: Present: S1 & S2 - Extremities Extremities: no ischemia Extremity abnormal: edema - Abdominal General gastrointestinal: soft, non-tender, non-distended, normal bowel sounds - Integumentary Integumentary: Present: clear, warm - Psychiatric Psychiatric: other (Intubated on vent) - Neurologic Neurologic: other (Intubated on vent) HEART Score - HEART Score Troponin: Troponin T 0.085 ng/mL (0.00-0.029) H 03/11/20 14:31 Results - Labs CBC & Chem 7: 03/13/20 08:20 03/13/20 15:38 Labs: Laboratory Last Values WBC 22.4 K/mm3 (4.5-11.0) H 03/11/20 04:32 RBC 3.32 M/mm3 (3.65-5.03) L 03/11/20 04:32 Hgb 6.6 gm/dl (10.1-14.3) L 03/13/20 04:00 Hct 19.5 % (30.3-42.9) L* 03/13/20 04:00 MCV 75 fl (79-97) L 03/11/20 04:32 MCH 24 pg (28-32) L 03/11/20 04:32 MCHC 31 % (30-34) 03/11/20 04:32 RDW 21.4 % (13.2-15.2) H 03/11/20 04:32 Plt Count 603 K/mm3 (140-440) H 03/13/20 04:00 Lymph % (Auto) 9.2 % (13.4-35.0) L 03/10/20 04:37 [place] % (Auto) 9.9 % (0.0-7.3) H 03/10/20 04:37 Eos % (Auto) 1.3 % (0.0-4.3) 03/10/20 04:37 Baso % (Auto) 0.4 % (0.0-1.8) 03/10/20 04:37 Lymph # (Auto) 1.5 K/mm3 (1.2-5.4) 03/10/20 04:37 [place] # (Auto) 1.6 K/mm3 (0.0-0.8) H 03/10/20 04:37 Eos # (Auto) 0.2 K/mm3 (0.0-0.4) 03/10/20 04:37 Baso # (Auto) 0.1 K/mm3 (0.0-0.1) 03/10/20 04:37 Add Manual Diff Complete 03/11/20 04:32 Total Counted 100 03/11/20 04:32 Seg Neutrophils % 79.2 % (40.0-70.0) H 03/10/20 04:37 Seg Neuts % (Manual) 81.0 % (40.0-70.0) H 03/11/20 04:32 Band Neutrophils % 1.0 % 03/11/20 04:32 Lymphocytes % (Manual) 8.0 % (13.4-35.0) L 03/11/20 04:32 Reactive Lymphs % (Man) 0 % 03/11/20 04:32 Monocytes % (Manual) 8.0 % (0.0-7.3) H 03/11/20 04:32 Eosinophils % (Manual) 1.0 % (0.0-4.3) 03/11/20 04:32 Basophils % (Manual) 1.0 % (0.0-1.8) 03/11/20 04:32 Metamyelocytes % 0 % 03/11/20 04:32 Myelocytes % 0 % 03/11/20 04:32 Promyelocytes % 0 % 03/11/20 04:32 Blast Cells % 0 % 03/11/20 04:32 Nucleated RBC % Not Reportable 03/11/20 04:32 Seg Neutrophils # 12.6 K/mm3 (1.8-7.7) H 03/10/20 04:37 Seg Neutrophils # Man 18.1 K/mm3 (1.8-7.7) H 03/11/20 04:32 Band Neutrophils # 0.2 K/mm3 03/11/20 04:32 Lymphocytes # (Manual) 1.8 K/mm3 (1.2-5.4) 03/11/20 04:32 Abs React Lymphs (Man) 0.0 K/mm3 03/11/20 04:32 Monocytes # (Manual) 1.8 K/mm3 (0.0-0.8) H 03/11/20 04:32 Eosinophils # (Manual) 0.2 K/mm3 (0.0-0.4) 03/11/20 04:32 Basophils # (Manual) 0.2 K/mm3 (0.0-0.1) H 03/11/20 04:32 Metamyelocytes # 0.0 K/mm3 03/11/20 04:32 Myelocytes # 0.0 K/mm3 03/11/20 04:32 Promyelocytes # 0.0 K/mm3 03/11/20 04:32 Blast Cells # 0.0 K/mm3 03/11/20 04:32 WBC Morphology Not Reportable 03/11/20 04:32 Hypersegmented Neuts Not Reportable 03/11/20 04:32 Hyposegmented Neuts Not Reportable 03/11/20 04:32 Hypogranular Neuts Not Reportable 03/11/20 04:32 Smudge Cells Not Reportable 03/11/20 04:32 Toxic Granulation Not Reportable 03/11/20 04:32 Toxic Vacuolation Not Reportable 03/11/20 04:32 Dohle Bodies Not Reportable 03/11/20 04:32 Pelger-Huet Anomaly Not Reportable 03/11/20 04:32 Maia Rods Not Reportable 03/11/20 04:32 Platelet Estimate Consistent w auto 03/11/20 04:32 Clumped Platelets Not Reportable 03/11/20 04:32 Plt Clumps, EDTA Not Reportable 03/11/20 04:32 Large Platelets Not Reportable 03/11/20 04:32 Giant Platelets Not Reportable 03/11/20 04:32 Platelet Satelliting Not Reportable 03/11/20 04:32 Plt Morphology Comment Not Reportable 03/11/20 04:32 RBC Morphology Not Reportable 03/11/20 04:32 Dimorphic RBCs Not Reportable 03/11/20 04:32 Polychromasia Not Reportable 03/11/20 04:32 Hypochromasia 1+ 03/11/20 04:32 Poikilocytosis Not Reportable 03/11/20 04:32 Anisocytosis 1+ 03/11/20 04:32 Microcytosis Not Reportable 03/11/20 04:32 Macrocytosis Not Reportable 03/11/20 04:32 Spherocytes Not Reportable 03/11/20 04:32 Pappenheimer Bodies Not Reportable 03/11/20 04:32 Sickle Cells Not Reportable 03/11/20 04:32 Target Cells Not Reportable 03/11/20 04:32 Tear Drop Cells Rare 03/11/20 04:32 Ovalocytes Few 03/11/20 04:32 Helmet Cells Not Reportable 03/11/20 04:32 Jackson-Cass Bodies Not Reportable 03/11/20 04:32 [place] Rings Not Reportable 03/11/20 04:32 Mirna Cells Not Reportable 03/11/20 04:32 Bite Cells Not Reportable 03/11/20 04:32 Crenated Cell Not Reportable 03/11/20 04:32 Elliptocytes Not Reportable 03/11/20 04:32 Acanthocytes (Spur) Not Reportable 03/11/20 04:32 Rouleaux Not Reportable 03/11/20 04:32 Hemoglobin C Crystals Not Reportable 03/11/20 04:32 Schistocytes Not Reportable 03/11/20 04:32 Malaria parasites Not Reportable 03/11/20 04:32 Edgardo Bodies Not Reportable 03/11/20 04:32 Hem Pathologist Commnt No 03/11/20 04:32 PT 14.1 Sec. (12.2-14.9) 03/11/20 07:31 INR 1.07 (0.87-1.13) 03/11/20 07:31 APTT 32.0 Sec. (24.2-36.6) 03/11/20 07:31 ABG pH 7.387 pH Units (7.350-7.450) 03/13/20 04:00 POC ABG pCO2 41.9 mmHg (32.0-48.0) 03/12/20 03:46 ABG pCO2 46.6 mm Hg 03/13/20 04:00 POC ABG pO2 78.3 mmHg (83-108) L 03/12/20 03:46 ABG pO2 83.2 mm Hg (80.0-90.0) 03/13/20 04:00 POC ABG HCO3 26.6 03/12/20 03:46 ABG HCO3 27.4 mmol/L (20.0-26.0) H 03/13/20 04:00 ABG O2 Saturation 96.8 % (95.0-99.0) 03/13/20 04:00 ABG O2 Content 11.7 (0.0-44) 03/13/20 04:00 POC ABG Base Excess 2.0 03/12/20 03:46 ABG Base Excess 2.0 mmol/L (-2.0-3.0) 03/13/20 04:00 ABG Hemoglobin 8.7 gm/dl (12.0-16.0) L 03/13/20 04:00 ABG Oxyhemoglobin 90.5 (94-98) L 03/06/20 04:41 ABG Carboxyhemoglobin 1.8 % (0.0-5.0) 03/13/20 04:00 ABG Methemoglobin 0.5 % (0.0-1.5) 03/13/20 04:00 ABG Sodium 134.8 mmol/L (136.0-145.0) L 03/12/20 03:46 ABG Potassium 3.9 mmol/L (3.40-4.50) 03/12/20 03:46 ABG Chloride 100.0 mmol/L (98-107) 03/12/20 03:46 ABG Glucose 82 mg/dL (65-95) 03/12/20 03:46 Oxyhemoglobin 94.6 % (95.0-99.0) L 03/13/20 04:00 Carboxyhemoglobin 1 (0.5-1.5) 03/06/20 04:41 FiO2 30 % 03/13/20 04:00 Sodium 141 mmol/L (137-145) 03/11/20 04:32 Potassium 4.3 mmol/L (3.6-5.0) 03/11/20 04:32 Chloride 96.6 mmol/L (98-107) L 03/11/20 04:32 Carbon Dioxide 23 mmol/L (22-30) 03/11/20 04:32 Anion Gap 26 mmol/L 03/11/20 04:32 BUN 64 mg/dL (7-17) H 03/11/20 04:32 Creatinine 6.5 mg/dL (0.6-1.2) H 03/11/20 04:32 Estimated GFR 9 ml/min 03/11/20 04:32 BUN/Creatinine Ratio 10 % 03/11/20 04:32 Glucose 101 mg/dL (65-100) H 03/11/20 04:32 POC Glucose 90 (70-105) 03/13/20 05:23 Lactic Acid 0.90 mmol/L (0.7-2.0) 02/27/20 19:33 Calcium 10.0 mg/dL (8.4-10.2) 03/11/20 04:32 Phosphorus 6.10 mg/dL (2.5-4.5) H 03/01/20 04:37 Magnesium 2.00 mg/dL (1.7-2.3) 03/07/20 05:03 Total Bilirubin 0.30 mg/dL (0.1-1.2) 03/11/20 04:32 Direct Bilirubin 0.6 mg/dL (0-0.2) H 03/05/20 06:00 Indirect Bilirubin 0.3 mg/dL 03/05/20 06:00 AST 41 units/L (5-40) H 03/11/20 04:32 ALT 17 units/L (7-56) 03/11/20 04:32 Alkaline Phosphatase 103 units/L (35-129) 03/11/20 04:32 Troponin T 0.085 ng/mL (0.00-0.029) H 03/11/20 14:31 C-Reactive Protein 36.50 mg/dL (0.00-1.30) H 03/01/20 11:06 Serum Total Protein 6.3 g/dL (6.1-8.1) 02/26/20 04:39 Total Protein 7.8 g/dL (6.3-8.2) 03/11/20 04:32 Albumin 2.7 g/dL (3.9-5) L 03/11/20 04:32 Albumin/Globulin Ratio 0.5 % 03/11/20 04:32 Bevxx-8-Vscydldxn 0.7 g/dL (0.2-0.3) H 02/26/20 04:39 Crddv-1-Dmbobmaij 0.8 g/dL (0.5-0.9) 02/26/20 04:39 Beta Globulins 0.4 g/dL (0.2-0.5) 02/26/20 04:39 Gamma Globulins 1.2 g/dL (0.8-1.7) 02/26/20 04:39 Abnorm Protein Band 1 see below 02/26/20 04:39 PEP Interpretation see below H 02/26/20 04:39 Triglycerides 247 mg/dL (2-149) H 03/11/20 14:31 Cholesterol 158 mg/dL (50-199) 03/11/20 14:31 LDL Cholesterol Direct 80 mg/dL (50-130) 03/11/20 14:31 HDL Cholesterol 28 mg/dL (40-59) L 03/11/20 14:31 Cholesterol/HDL Ratio 5.64 % 03/11/20 14:31 Lipase 72 units/L (13-60) H 03/04/20 19:00 HCG, Qual Negative (Negative) 02/24/20 02:53 PTH Intact 911.3 pg/mL (15-65) H 02/26/20 08:15 Arterial Blood Glucose 82 mg/dL (65-95) 03/12/20 03:46 Arterial Blood Ionized Calcium 4.8 mg/dL (4.6-5.3) 03/12/20 03:46 Urine Color Yellow (Yellow) 02/24/20 Unknown Urine Turbidity Clear (Clear) 02/24/20 Unknown Urine pH 6.0 (5.0-7.0) 02/24/20 Unknown Ur Specific [place] 1.020 (1.003-1.030) 02/24/20 Unknown Urine Protein >500 mg/dL (Negative) 02/24/20 Unknown Urine Glucose (UA) 50 mg/dL (Negative) 02/24/20 Unknown Urine Ketones Neg mg/dL (Negative) 02/24/20 Unknown Urine Blood Lg (Negative) 02/24/20 Unknown Urine Nitrite Neg (Negative) 02/24/20 Unknown Urine Bilirubin Neg (Negative) 02/24/20 Unknown Urine Urobilinogen < 2.0 mg/dL (<2.0) 02/24/20 Unknown Ur Leukocyte Esterase Neg (Negative) 02/24/20 Unknown Urine WBC (Auto) 11.0 /HPF (0.0-6.0) H 02/24/20 Unknown Urine RBC (Auto) 149.0 /HPF (0.0-6.0) 02/24/20 Unknown U Epithel Cells (Auto) 5.0 /HPF (0-13.0) 02/24/20 Unknown Urine Bacteria (Auto) 1+ /HPF (Negative) 02/24/20 Unknown Urine Mucus Few /HPF 02/24/20 Unknown Urine Creatinine 161.0 mg/dL (0.1-20.0) H 02/25/20 22:55 Protein/Creatinin Ratio 0.93 02/25/20 22:55 Urine Total Protein 150 mg/dL (5-11.8) H 02/25/20 22:55 ZINA Screen Positive (Negative) H 02/26/20 04:39 Proteinase 3 (PR3) Ab <1.0 AI (<1.0) 02/26/20 04:39 Myeloperoxidase Ab <1.0 AI (<1.0) 02/26/20 04:39 Double Strand DNA Ab See scanned result 03/06/20 14:46 Complement C3 153 mg/dL (83-193) 02/26/20 04:39 Complement C4 35 mg/dL (15-57) 02/26/20 04:39 Coronavirus (PCR) Negative (Negative) 10/05/20 09:12 Hepatitis A IgM Ab Non-reactive (NonReactive) 03/03/20 12:34 Hep Bs Antigen Non-reactive (Negative) 03/03/20 12:34 Hep B Core IgM Ab Non-reactive (NonReactive) 03/03/20 12:34 Hepatitis C Antibody Non-reactive (NonReactive) 03/03/20 12:34 Blood Type AB POSITIVE 03/01/20 18:30 Antibody Screen Negative 03/01/20 18:30 Crossmatch See Detail 03/01/20 18:30 Microbiology: Microbiology 03/11/20 09:25 Tracheal Aspirate Sputum Culture - Preliminary - Diagnostic Impressions Diagnostic Impressions: Echocardiogram 02/26/20 09:11 Transthoracic Echocardiogram Indication: Cardiomegaly BP: 149/92 HR: 122 Conclusions *Global left ventricular systolic function is normal. *The estimated ejection fraction is 60-65%. *Moderate to severe concentric left ventricular hypertrophy is observed. *The left atrium is mild to moderately dilated. *The aortic valve leaflets are moderately thickened. *A mean gradient of 22.39 mmHg across the outflow tract is likely not due to but hyperdynamic flow and LVH. *There is trace tricuspid regurgitation. Findings Left Ventricle: The left ventricular chamber size is normal. Moderate to severe concentric left ventricular hypertrophy is observed. Global left ventricular systolic function is normal. The estimated ejection fraction is 60-65%. Left Atrium: The left atrium is mild to moderately dilated. Right Ventricle: The right ventricular cavity size is normal. The right ventricular global systolic function is normal. Right Atrium: The right atrial cavity size is normal. Aortic Valve: The aortic valve leaflets are moderately thickened. There is no evidence of aortic regurgitation. The mean gradient of the aortic valve is 22.39 mmHg. Mitral Valve: The mitral valve leaflets are mildly thickened. There is trace of mitral regurgitation. There is no evidence of mitral stenosis. Tricuspid Valve: There is trace tricuspid regurgitation. No pulmonary hypertension is noted. Pulmonic Valve: There is trace pulmonic regurgitation. Pericardium: There is no pericardial effusion. Aorta: There is no dilatation of the ascending aorta. There is no dilatation of the aortic root. Venous: The inferior vena cava appears normal in size. Measurements Chambers 2D Name Value Normal Range IVSd (2D) 1.8 cm (0.6 - 1.1) LVPWd (2D) 1.74 cm (0.6 - 1.1) LVIDd (2D) 4.57 cm (3.7 - 5.6) LVIDs (2D) 2.73 cm (2 - 3.8) LV FS (2D) 40.27 % - EF Teichholz (2D) 71.04 % - Ao root diameter (2D) 2.79 cm (2 - 3.7) Volumes/Mass Name Value Normal Range LA ESV SP 4CH (A/L) 54.18 ml - LA ESV SP 2CH (A/L) 61.84 ml - LA ESV BP (A/L) 58.1 ml - LA ESV BP (A/L) index 30.74 ml/m2 - LA ESV SP 4CH (MOD) 52.89 ml - LA ESV SP 2CH (MOD) 60.65 ml - LA ESV BP (MOD) 56.77 ml - LA ESV BP (MOD) index 30.04 ml/m2 - LV EDV SP 4CH (MOD) 164.2 ml - LV ESV SP 4CH (MOD) 58.04 ml - EF SP 4CH (MOD) 64.65 % - Diastolic/Systolic Function Name Value Normal Range MV E-wave Vmax 1.38 m/sec - MV deceleration time 92.78 msec - MV A-wave Vmax 1.44 m/sec - MV E:A ratio 0.95 ratio - Aortic Valve Name Value Normal Range AV Vmax 3.08 m/sec - AV VTI 36.74 cm - AV peak gradient 37.98 mmHg - AV mean gradient 22.39 mmHg - LVOT diameter 2.01 cm - LVOT Vmax 2.45 m/sec - LVOT VTI 29.85 cm - LVOT peak gradient 24.04 mmHg - LVOT mean gradient 11.11 mmHg - SV LVOT 94.73 ml - JADA (continuity Vmax) 2.52 cm2 - JADA (continuity VTI) 2.58 cm2 - Ascending Ao 2.64 cm - Mitral Valve Name Value Normal Range MV PHT 37.88 msec - MVA (PHT) 5.81 cm2 - Tricuspid Valve Name Value Normal Range IVC diameter 1.93 cm (1.2 - 2.3) Pulmonic Valve/Qp:Qs Name Value Normal Range PV Vmax 2.83 m/sec - PV VTI 45.88 cm - PV peak gradient 32.06 mmHg - PV mean gradient 16.11 mmHg - WA end-diastolic Vmax 0.81 m/sec - RVOT Vmax 1.82 m/sec - RVOT VTI 25.12 cm - RVOT peak gradient 13.3 mmHg - Fransk/IV: Voiding Method Incontinent IV Catheter Type [Right VAS Cath Internal Jugular] IV Catheter Type [Left Upper INT / Saline Lock arm] IV Catheter Type [Right Upper INT / Saline Lock arm] IV Catheter Type [Right INT / Saline Lock Forearm] IV Catheter Type [Right Wrist] Peripheral IV IV Catheter Type [Right Peripheral IV Antecubital] Active Medications - Current Medications Current Medications: Generic Name Dose Route Start Last Admin Trade Name Freq PRN Reason Stop Dose Admin Acetaminophen 650 mg 02/26/20 16:23 03/12/20 22:20 Tylenol PO 650 mg Q4H PRN Administration Pain, Mild (1-3)/ Temp >100. Albuterol 2.5 mg 02/27/20 17:55 Proventil IH Q4HRT PRN Shortness Of Breath Albuterol/Ipratropium 1 ampul 02/28/20 12:17 03/13/20 08:03 Duoneb *Not For Prn Use* IH 1 ampul Q6HRT INDU Administration Amlodipine Besylate 10 mg 02/28/20 10:00 03/12/20 10:04 Amlodipine PO 10 mg QDAY INDU Administration Lipase/Protease/Amylase 1 each 03/01/20 08:46 Pancrealivia Davis 10,500 Unit FEEDTUBE PRN PRN For Clogged Feeding Tube Aspirin 325 mg 03/11/20 10:00 03/12/20 09:42 Ecotrin PO 325 mg QDAY INDU Administration Dextrose 50 ml 02/29/20 08:00 03/01/20 00:20 D50w (25gm) Syringe IV 10 ml Q30MIN PRN Administration HYPOGLYCEMIA Protocol Epoetin Prosper 10,000 unit 03/12/20 10:00 Procrit IV NIKOLAY PRN hemodialysis Fentanyl 50 mcg 03/11/20 06:01 Sublimaze IV Q10MIN PRN ANALGESIA Heparin Sodium (Porcine) 5,000 unit 03/11/20 14:00 03/13/20 06:42 Heparin SUB-Q 5,000 unit Q8HR INDU Administration Hydralazine HCl 25 mg 03/04/20 14:00 03/13/20 06:41 Apresoline PO 25 mg Q8HR INDU Administration Hydrophilic Ointment 1 applic 03/11/20 06:01 Vaseline Lip Therapy TP Q2HR PRN Dry Lips MEROPENEM/NS 1 GRAM/100 ML 1 gram in 100 mls @ 100 mls/hr 03/03/20 18:00 03/12/20 17:20 Merrem/Ns 1 Gram/100 Ml IV 100 mls/hr QPM INDU Administration Protocol Sodium Chloride 100 mls @ 999 mls/hr 03/08/20 17:05 Nacl 0.9% IV NIKOLAY PRN Hypotension Fentanyl Citrate 2,000 mcg in 100 mls @ 4.55 mls/hr 03/11/20 07:00 03/13/20 04:15 Fentanyl Drip Premix IV 4 mcg/kg/hr TITR INDU 18.2 mls/hr Administration Protocol 1 MCG/KG/HR Sodium Chloride 500 mls @ 0 mls/hr 03/13/20 08:16 Nacl 0.9% 500 Ml IV 03/13/20 08:17 ONCE ONE As Directed Labetalol HCl 10 mg 02/28/20 09:00 03/11/20 03:04 Labetalol IV 10 mg Q4H PRN Administration Hypertension Lansoprazole 30 mg 03/06/20 10:00 03/12/20 10:01 Prevacid Solutab FEEDTUBE 30 mg QDAY INDU Administration Lorazepam 1 mg 03/10/20 12:00 03/11/20 05:25 Ativan IV 1 mg Q4H PRN Administration AGITATION Metoprolol Tartrate 25 mg 02/28/20 10:00 03/12/20 22:20 Metoprolol PO 25 mg BID INDU Administration Morphine Sulfate 2 mg 03/11/20 05:13 Morphine IV Q4H PRN Pain, Moderate (4-6) Multi-Ingred Cream/Lotion/Oil/Oint 1 applic 03/11/20 06:01 Artificial Tears Ophth Oint OU Q4HR PRN Dry Eye(s) Nitroglycerin 0.4 mg 03/11/20 05:14 Nitrostat SL .Q5MIN PRN Chest Pain Ondansetron HCl 4 mg 02/24/20 06:45 02/25/20 23:33 Zofran IV 4 mg Q8H PRN Administration Nausea And Vomiting Quetiapine Fumarate 100 mg 03/06/20 10:00 03/12/20 09:44 Seroquel PO 100 mg QAM INDU Administration Quetiapine Fumarate 200 mg 03/06/20 22:00 03/12/20 22:19 Seroquel PO 200 mg QHS INDU Administration Scopolamine 1 each 03/04/20 16:00 03/10/20 09:07 Transderm-Scop TD 1 each Q3D INDU Administration Simple Syrup 15 ml 03/01/20 08:46 Simple Syrup FEEDTUBE PRN PRN Hypoglycemia Simple Syrup 30 ml 03/01/20 08:46 Simple Syrup FEEDTUBE PRN PRN Hypoglycemia Sodium Bicarbonate 325 mg 03/01/20 08:46 Sodium Bicarbonate FEEDTUBE PRN PRN For Clogged Feeding Tube Sodium Chloride 10 ml 02/24/20 10:00 03/12/20 22:22 Sodium Chloride Flush Syringe 10 Ml IV 10 ml BID INDU Administration Sodium Chloride 10 ml 02/24/20 06:45 03/10/20 09:06 Sodium Chloride Flush Syringe 10 Ml IV 10 ml PRN PRN Administration LINE FLUSH Tamsulosin HCl 0.4 mg 03/01/20 17:00 03/12/20 09:42 Flomax PO 0.4 mg QDAY INDU Administration Nutrition/Malnutrition Assess - Dietary Evaluation Nutrition/Malnutrition Findings: Nutrition Notes Start: 02/24/20 13:42 Freq: Status: Active Protocol: Document 03/11/20 12:07 AVINASH (Rec: 03/11/20 12:12 AVINASH [id number]) Co-Sign 03/11/20 12:07 Nutrition Notes Initial or Follow up Reassessment Current Diagnosis Acute Kidney Injury,Sepsis, Hypertension,Respiratory Failure,Hyperlipidemia Other Pertinent Diagnosis Acute pancreatitis, HD Current Diet Nepro 1.8 at 35ml/hr Labs/Tests BUN 64 Cr 6.5 BG 101 Pertinent Medications Reviewed Height 5 ft 1 in Weight 91 kg [place] Body Weight (kg) 47.72 BMI 37.9 Weight Status Obese Subjective/Other Information F/U for stable TF. TF not running at time of visit. Per RN, pt was reintubated this AM and plans to reinsert NG tube today. Pt receiving HD today. Percent of energy/protein needs met: 0%/0% Burn Absent Trauma Absent GI Symptoms None Current % PO Negligible Minimum of two criteria No Fluid Accumulation Moderate to Severe (severe) #2 Nutrition Diagnosis Inadequate oral intake Diagnosis Progress(for reassessment Continues documentation) #1 Nutrition Diagnosis Food and nutrition-related knowledge deficit Diagnosis Progress(for reassessment Continues documentation) Is patient on ventilator? Yes Is Patient Ambulatory and/or Out of Bed No REE-([place]-confined to bed) 1823.604 Kcal/Kg value to use for calculation 16 Approximate Energy Requirements Using 1456 kcal/Kg Calculation Used for Recommendations Kcal/kg Additional Notes Pro: 96g (>2g/kg IBW) Fluid: 1ml/kcal Nutrition Intervention Change Diet Order: Continue TF Nutrition Support: Nepro 1.8 at 35ml/hr Flush 150ml q4h Kcal 1,512 Protein (gm) 68 Fluid (mL) 611 Goal #1 TF tolerance Goal #2 Meet at least 80% of energy and protein needs via TF Anticipated Discharge Needs: Undetermined at this time Follow-Up By: 03/13/20 Additional Comments F/U for TF restart/tolerance
[2020-03-13 08:39] LABS: Hematocrit 21.8 % (30.3-42.9)
[2020-03-13] MEDS: TAMSULOSIN 0.4 MG CAP PO SCH (09:38)
[2020-03-13] MEDS: ASPIRIN EC 325 MG TAB PO SCH (09:38)
[2020-03-13] MEDS: LANSOPRAZOLE 30 MG SOLUTAB FEEDTUBE SCH (09:38)
[2020-03-13] MEDS: METOPROLOL TARTRATE 25 MG TAB PO SCH ×2 (09:39→21:54)
[2020-03-13] MEDS: amLODIPine 10 MG TAB PO SCH (09:39)
[2020-03-13] MEDS: QUEtiapine 100 MG TAB PO SCH (09:39)
[2020-03-13] MEDS: SCOPOLAMINE TRANSDERMAL PATCH 72 HR TD SCH (09:39)
--- NOTE | 2020-03-13 10:54 | Progress Note ---
Assessment and Plan Cultures: Urine culture grew 10-100,000 usual xavier. Blood culture 02/26/2020 no growth 02/29/2020 sputum culture: rare usual xavier 03/06/2020 blood culture: no growth 03/07/2020 sputum culture: no growth thus far 03/11/2020 ET aspirate: no growth thus far Assessment: 39 years old female with history of hypertension, previous kidney stone, hyperlipidemia and obesity admitted on 02/24/2020 due to a week history of severe epigastric abdominal pain radiated to the right flank and back: #Acute sepsis: Likely secondary to severe pancreatitis and related complications. Remains critically ill. #Acute severe pancreatitis: Unclear etiology. Initial non-contrasted CT showed no evidence of necrosis or pseudocyst or abscess formation. Repeat CT 03/05 with interval worsening of acute pancreatitis without clear evidence of necrosis, however was done without IV contrast due to her renal function. Ongoing fevers likely to due severe pancreatitis and ?related complications #Acute renal failure: now requiring dialysis. Nephrology on board. #Acute respiratory hypoxic failure: re-intubated 03/11/2020, back on the vent. #?Alcohol abuse Recommendations: - continue with IV Meropenem, renally dosed, D11 today, probably stop at 14 days depending on clinical status Louie Graves MD, FACP [facility] ([facility] C: [phone] O: [phone] F: [phone] Subjective Date of service: 03/13/20 Principal diagnosis: HTNsive urgency; Morbid obesity; Ac. pancreatitis; Abdo gold pain Interval history: No fever. Getting HD at bedside. Remains on the vent. Objective - Exam Narrative Exam: Physical Exam: Constitutional: sedated, intubated, on the vent Head, Ears, Nose: Normocephalic, atraumatic. External ears, nose normal Eyes: Conjunctivae/corneas clear. No icterus. No ptosis. Neck: intubated Cardiovascular: S1, S2 + Respiratory: AE fair but reduced in the bases GI: distended, no tenderness, bowel sounds + Musculoskeletal: No pedal edema, no cyanosis. HD cath + Skin: No rash or abscess Hem/Lymphatic: No palpable cervical or supraclavicular nodes. No lymphangitis Psych: no agitation, calm Neurological: sedated, intubated, on the vent - Constitutional Vitals: Vital Signs Temp Pulse Resp BP Pulse Ox 98.0 F 89 17 142/95 100 03/13/20 10:45 03/13/20 10:46 03/13/20 10:45 03/13/20 10:46 03/13/20 10:45 Temperature -Last 24 Hours Temperature 98.0 F Temperature 98.0 F Temperature 98.4 F Temperature 98.4 F Temperature 98.4 F Temperature 98.3 F Temperature 99.2 F Temperature 99.2 F Temperature 99.4 F Temperature 100.5 F Temperature 99.5 F Temperature 99.4 F - Labs CBC & Chem 7: 03/13/20 08:20 03/11/20 04:32 Labs: Abnormal lab results 03/12/20 03/13/20 03/13/20 Range/Units 17:33 04:00 04:00 Hgb 6.6 L (10.1-14.3) gm/dl Hct 19.5 L* (30.3-42.9) % Plt Count 603 H (140-440) K/mm3 ABG HCO3 27.4 H (20.0-26.0) mmol/L ABG Hemoglobin 8.7 L (12.0-16.0) gm/dl Oxyhemoglobin 94.6 L (95.0-99.0) % POC Glucose 107 H (70-105) Crossmatch 03/13/20 03/13/20 Range/Units 08:20 08:45 Hgb 7.0 L (10.1-14.3) gm/dl Hct 21.8 L (30.3-42.9) % Plt Count (140-440) K/mm3 ABG HCO3 (20.0-26.0) mmol/L ABG Hemoglobin (12.0-16.0) gm/dl Oxyhemoglobin (95.0-99.0) % POC Glucose (70-105) Crossmatch See Detail
--- NOTE | 2020-03-13 11:40 | Progress Note ---
Assessment and Plan Acute Hypoxemic Respiratory Failure on MVS Severe Sepsis Acute Toxic-Metabolic Encephalopathy Hypertensive urgency Morbid obesity Acute pancreatitis, abdominal pain Medical non compliance Oropharyngeal Dysphagia - SBT just started - ABG after 2-3 hours and extubate if passes - hold tube feeds nopw for tentative extubation - continue HD/UF for toxin and volume clearance (ongoing) - continue care as below otherwise; - continue daily SAT and SBT assessment as tolerated - continue fentanyl for sedation +/- propofol - accuchecks with glycemic control per SSI (While critically ill target blood glucose of 140-180 mg/dL; avoid hypoglycemia) - sedation prn for target RASS -1 to -2 - continue to wean supplemental oxygen for target O2 sat's > 90% acutely - VAP bundle addressed - continue lung protective strategies - continue bronchodilators with pulmonary hygiene per RT - wean per pulmonary driven protocols otherwise - continue enteral nutritiuon at goal rate as tolerated - completed AB's (Merrem) per ID rec's - JUANIS per director of placement - Evaluation for sleep apnea as an outpatient - VTE prophylaxis - prn Analgesia per CPOT score - avoid nephrotoxins, renally dose all medications - Maintenance of sleep-wake cycle, avoid delirium - G.I. & VTE prophylaxis - PT/OT/ROM exercises - mobility protocols for pressure ulcer prophylaxis - Monitor hemodynamics closely - continue other care per attending / other consultants - discharge planning ongoing concurrently ..... re-evaluate in am & prn CONDITION: CRITICAL PROGNOSIS: GUARDED CODE STATUS: FULL CODE The high probability of a clinically significant, sudden or life-threatening deterioration of the [respiratory, cardiovascular & GI] system(s) required my full and direct attention, intervention and personal management. The aggregate critical care time was [34] minutes without overlap. Time includes spent on; [x] Data Review and interpretation [x] Patient assessment and monitoring of vital signs [x] Documentation [x] Medication orders and management Subjective Date of service: 03/13/20 Principal diagnosis: HTNsive urgency; Morbid obesity; Ac. pancreatitis; Abdominal pain Interval history: Patient is seen today for: Hypertensive urgency; Morbid obesity; Acute pancreatitis; abdominal pain; Medical non compliance; Acute Toxic Metabolic Encephalopathy Seen and examined at bedside; 24hour events reviewed; nursing and respiratory care staff consulted; no adverse overnight events reported to me; resting peacefully in bed; remains on MVS; just placed on SBT at bedisde; HD/UF just being completed and hemodynamically stable; No N/V/F/C Objective Vital Signs - 12hr 03/12/20 03/12/20 03/12/20 23:40 23:45 23:49 Temperature Pulse Rate 95 H 96 H 95 H Pulse Rate [ From Monitor] Respiratory 20 20 Rate Respiratory Rate [Abdomen] Blood Pressure 113/66 113/56 113/56 O2 Sat by Pulse 100 100 100 Oximetry O2 Sat by Pulse Oximetry [ Anterior Bilateral Throughout] 03/13/20 03/13/20 03/13/20 00:00 00:15 00:30 Temperature 99.4 F Pulse Rate 93 H 95 H 93 H Pulse Rate [ 95 H From Monitor] Respiratory 20 20 20 Rate Respiratory Rate [Abdomen] Blood Pressure 106/59 108/62 105/64 O2 Sat by Pulse 100 100 100 Oximetry O2 Sat by Pulse Oximetry [ Anterior Bilateral Throughout] 03/13/20 03/13/20 03/13/20 00:45 01:00 01:15 Temperature Pulse Rate 92 H 93 H 93 H Pulse Rate [ From Monitor] Respiratory 21 20 20 Rate Respiratory Rate [Abdomen] Blood Pressure 111/60 101/61 113/65 O2 Sat by Pulse 99 100 97 Oximetry O2 Sat by Pulse Oximetry [ Anterior Bilateral Throughout] 03/13/20 03/13/20 03/13/20 01:30 01:45 02:00 Temperature Pulse Rate 93 H 92 H 89 Pulse Rate [ From Monitor] Respiratory 20 20 20 Rate Respiratory Rate [Abdomen] Blood Pressure 89/47 110/70 111/66 O2 Sat by Pulse 97 97 97 Oximetry O2 Sat by Pulse Oximetry [ Anterior Bilateral Throughout] 03/13/20 03/13/20 03/13/20 02:15 02:30 02:45 Temperature Pulse Rate 91 H 89 89 Pulse Rate [ From Monitor] Respiratory 20 20 20 Rate Respiratory Rate [Abdomen] Blood Pressure 116/71 107/69 109/69 O2 Sat by Pulse 97 97 97 Oximetry O2 Sat by Pulse Oximetry [ Anterior Bilateral Throughout] 03/13/20 03/13/20 03/13/20 03:00 03:15 03:28 Temperature 99.2 F Pulse Rate 89 89 Pulse Rate [ From Monitor] Respiratory 20 20 Rate Respiratory Rate [Abdomen] Blood Pressure 116/70 110/70 O2 Sat by Pulse 97 97 Oximetry O2 Sat by Pulse Oximetry [ Anterior Bilateral Throughout] 03/13/20 03/13/20 03/13/20 03:29 03:30 03:45 Temperature 99.2 F Pulse Rate 89 91 H Pulse Rate [ From Monitor] Respiratory 20 20 Rate Respiratory Rate [Abdomen] Blood Pressure 108/64 112/62 O2 Sat by Pulse 96 97 Oximetry O2 Sat by Pulse Oximetry [ Anterior Bilateral Throughout] 03/13/20 03/13/20 03/13/20 04:00 04:15 04:26 Temperature Pulse Rate 94 H 91 H 96 H Pulse Rate [ 90 From Monitor] Respiratory 16 20 Rate Respiratory Rate [Abdomen] Blood Pressure 112/73 115/72 115/72 O2 Sat by Pulse 100 100 98 Oximetry O2 Sat by Pulse Oximetry [ Anterior Bilateral Throughout] 03/13/20 03/13/20 03/13/20 04:30 04:45 05:00 Temperature Pulse Rate 93 H 91 H 92 H Pulse Rate [ From Monitor] Respiratory 19 20 20 Rate Respiratory Rate [Abdomen] Blood Pressure 124/82 123/78 128/77 O2 Sat by Pulse 98 98 97 Oximetry O2 Sat by Pulse Oximetry [ Anterior Bilateral Throughout] 03/13/20 03/13/20 03/13/20 05:15 05:30 05:45 Temperature Pulse Rate 94 H 92 H 91 H Pulse Rate [ From Monitor] Respiratory 20 20 20 Rate Respiratory Rate [Abdomen] Blood Pressure 127/79 131/79 123/82 O2 Sat by Pulse 98 100 98 Oximetry O2 Sat by Pulse Oximetry [ Anterior Bilateral Throughout] 03/13/20 03/13/20 03/13/20 06:00 06:15 06:30 Temperature Pulse Rate 90 88 87 Pulse Rate [ From Monitor] Respiratory 20 20 20 Rate Respiratory Rate [Abdomen] Blood Pressure 122/76 119/72 118/72 O2 Sat by Pulse 99 100 100 Oximetry O2 Sat by Pulse Oximetry [ Anterior Bilateral Throughout] 03/13/20 03/13/20 03/13/20 06:41 06:45 07:00 Temperature Pulse Rate 87 92 H 91 H Pulse Rate [ From Monitor] Respiratory 20 20 Rate Respiratory Rate [Abdomen] Blood Pressure 118/72 140/92 122/77 O2 Sat by Pulse 98 98 Oximetry O2 Sat by Pulse Oximetry [ Anterior Bilateral Throughout] 03/13/20 03/13/20 03/13/20 07:15 07:30 07:45 Temperature 98.3 F Pulse Rate 91 H 100 H 92 H Pulse Rate [ From Monitor] Respiratory 20 19 19 Rate Respiratory Rate [Abdomen] Blood Pressure 119/73 137/88 137/85 O2 Sat by Pulse 97 97 98 Oximetry O2 Sat by Pulse 100 Oximetry [ Anterior Bilateral Throughout] 03/13/20 03/13/20 03/13/20 07:59 08:00 08:01 Temperature 98.4 F Pulse Rate 93 H 98 H 96 H Pulse Rate [ 94 H From Monitor] Respiratory 21 21 Rate Respiratory Rate [Abdomen] Blood Pressure 137/88 137/88 137/88 O2 Sat by Pulse 100 100 100 Oximetry O2 Sat by Pulse Oximetry [ Anterior Bilateral Throughout] 03/13/20 03/13/20 03/13/20 08:15 08:30 08:45 Temperature Pulse Rate 94 H 103 H 110 H Pulse Rate [ From Monitor] Respiratory 20 20 23 Rate Respiratory Rate [Abdomen] Blood Pressure 133/82 135/91 145/88 O2 Sat by Pulse 100 100 98 Oximetry O2 Sat by Pulse Oximetry [ Anterior Bilateral Throughout] 03/13/20 03/13/20 03/13/20 09:00 09:15 09:30 Temperature Pulse Rate 98 H 97 H 100 H Pulse Rate [ From Monitor] Respiratory 20 21 21 Rate Respiratory Rate [Abdomen] Blood Pressure 140/79 132/84 147/84 O2 Sat by Pulse 100 100 100 Oximetry O2 Sat by Pulse Oximetry [ Anterior Bilateral Throughout] 03/13/20 03/13/20 03/13/20 09:39 09:45 10:00 Temperature Pulse Rate 104 H 107 H 99 H Pulse Rate [ From Monitor] Respiratory 23 21 Rate Respiratory 20 Rate [Abdomen] Blood Pressure 147/84 147/84 130/83 O2 Sat by Pulse 100 100 Oximetry O2 Sat by Pulse Oximetry [ Anterior Bilateral Throughout] 03/13/20 03/13/20 03/13/20 10:06 10:10 10:15 Temperature 98.4 F 98.4 F Pulse Rate 96 H 94 H 93 H Pulse Rate [ From Monitor] Respiratory 20 22 Rate Respiratory Rate [Abdomen] Blood Pressure 130/83 130/83 137/87 O2 Sat by Pulse 100 98 Oximetry O2 Sat by Pulse Oximetry [ Anterior Bilateral Throughout] 03/13/20 03/13/20 03/13/20 10:30 10:45 10:46 Temperature 98.0 F 98.0 F Pulse Rate 85 92 H 89 Pulse Rate [ From Monitor] Respiratory 18 18 Rate Respiratory Rate [Abdomen] Blood Pressure 140/86 142/95 142/95 O2 Sat by Pulse 100 100 Oximetry O2 Sat by Pulse Oximetry [ Anterior Bilateral Throughout] 03/13/20 03/13/20 03/13/20 11:00 11:15 11:19 Temperature 98.4 F Pulse Rate 95 H 99 H 99 H Pulse Rate [ From Monitor] Respiratory 20 24 Rate Respiratory Rate [Abdomen] Blood Pressure 154/98 146/103 146/103 O2 Sat by Pulse 100 Oximetry O2 Sat by Pulse 100 Oximetry [ Anterior Bilateral Throughout] Constitutional: no acute distress, other (Obese female with mildly increased respiratory effort at rest on MVS, ) Eyes: non-icteric ENT: oropharynx moist, other (ETT 24 cm TY, RIJ HD trialysis catheter) Neck: supple, no lymphadenopathy, no JVD Effort: normal Ascultation: Bilateral: rhonchi (scant) Percussion: Bilateral: not dull Cardiovascular: regular rate and rhythm, other (S1,S2) Gastrointestinal: normoactive bowel sounds, hypoactive bowel sounds, soft, non- tender, other (distended but soft) Integumentary: normal Extremities: no cyanosis, no edema, pulses normal, no ischemia or petechiae Neurologic: non-focal exam, pupils equal and round, CN II-XII normal, motor strength normal and Psychiatric: mood appropriate, affect normal CBC and BMP: 03/13/20 08:20 03/11/20 04:32 ABG, PT/INR, D-dimer: ABG ABG pH 7.387 pH Units (7.350-7.450) 03/13/20 04:00 POC ABG pCO2 41.9 mmHg (32.0-48.0) 03/12/20 03:46 ABG pCO2 46.6 mm Hg 03/13/20 04:00 POC ABG pO2 78.3 mmHg (83-108) L 03/12/20 03:46 ABG pO2 83.2 mm Hg (80.0-90.0) 03/13/20 04:00 POC ABG HCO3 26.6 03/12/20 03:46 ABG O2 Saturation 96.8 % (95.0-99.0) 03/13/20 04:00 PT/INR, D-dimer PT 14.1 Sec. (12.2-14.9) 03/11/20 07:31 INR 1.07 (0.87-1.13) 03/11/20 07:31 Abnormal lab findings: Abnormal Labs 02/24/20 02/24/20 02/24/20 02:53 02:53 Unknown WBC 12.7 H Hgb 10.0 L RBC Hct MCV 70 L MCH 22 L RDW 17.9 H Plt Count 458 H Lymph % (Auto) 8.9 L Lymph # 1.1 L Ross % (Auto) Ross # Lymph # (Auto) Ross # (Auto) Seg Neutrophils % 84.2 H Seg Neutrophils # 10.7 H Seg Neuts % (Manual) Lymphocytes % (Manual) Monocytes % (Manual) Nucleated RBC % Seg Neutrophils # Man Lymphocytes # (Manual) Monocytes # (Manual) Eosinophils # (Manual) Basophils # (Manual) ABG pH POC ABG pCO2 POC ABG pO2 ABG pO2 ABG HCO3 ABG O2 Saturation ABG Base Excess ABG Hemoglobin ABG Oxyhemoglobin ABG Sodium ABG Glucose Oxyhemoglobin Sodium Potassium Chloride Carbon Dioxide BUN 27 H Creatinine 1.7 H Glucose 118 H POC Glucose Calcium Phosphorus Magnesium Direct Bilirubin AST Alkaline Phosphatase Albumin Troponin T C-Reactive Protein Rwfnu-[id number]-Dteswoyzz PEP Interpretation Triglycerides Lipase 232 H HDL Cholesterol PTH Intact Arterial Blood Glucose Urine WBC (Auto) 11.0 H Urine Creatinine Urine Total Protein ZINA Screen Crossmatch 02/25/20 02/25/20 02/25/20 00:03 03:49 03:49 WBC 29.1 H Hgb 9.4 L RBC Hct 30.2 L MCV 71 L MCH 22 L RDW 18.3 H Plt Count 525 H Lymph % (Auto) 3.4 L Lymph # 1.0 L Ross % (Auto) Ross # 1.0 H Lymph # (Auto) Ross # (Auto) Seg Neutrophils % Seg Neutrophils # 26.4 H Seg Neuts % (Manual) Lymphocytes % (Manual) Monocytes % (Manual) Nucleated RBC % Seg Neutrophils # Man Lymphocytes # (Manual) Monocytes # (Manual) Eosinophils # (Manual) Basophils # (Manual) ABG pH POC ABG pCO2 POC ABG pO2 ABG pO2 ABG HCO3 ABG O2 Saturation ABG Base Excess ABG Hemoglobin ABG Oxyhemoglobin ABG Sodium ABG Glucose Oxyhemoglobin Sodium Potassium Chloride Carbon Dioxide BUN Creatinine Glucose POC Glucose 126 H Calcium Phosphorus Magnesium Direct Bilirubin AST Alkaline Phosphatase Albumin Troponin T C-Reactive Protein Uemiv-8-Euedgdbff PEP Interpretation Triglycerides Lipase 1486 H HDL Cholesterol PTH Intact Arterial Blood Glucose Urine WBC (Auto) Urine Creatinine Urine Total Protein ZINA Screen Crossmatch 02/25/20 02/25/20 02/25/20 03:49 05:55 22:55 WBC Hgb RBC Hct MCV MCH RDW Plt Count Lymph % (Auto) Lymph # Ross % (Auto) Ross # Lymph # (Auto) Ross # (Auto) Seg Neutrophils % Seg Neutrophils # Seg Neuts % (Manual) Lymphocytes % (Manual) Monocytes % (Manual) Nucleated RBC % Seg Neutrophils # Man Lymphocytes # (Manual) Monocytes # (Manual) Eosinophils # (Manual) Basophils # (Manual) ABG pH POC ABG pCO2 POC ABG pO2 ABG pO2 ABG HCO3 ABG O2 Saturation ABG Base Excess ABG Hemoglobin ABG Oxyhemoglobin ABG Sodium ABG Glucose Oxyhemoglobin Sodium 136 L Potassium Chloride 97.9 L Carbon Dioxide 21 L BUN 39 H Creatinine 3.0 H D Glucose 118 H POC Glucose 124 H Calcium Phosphorus Magnesium Direct Bilirubin AST Alkaline Phosphatase Albumin 3.6 L Troponin T C-Reactive Protein Aunxv-6-Eswlewzjf PEP Interpretation Triglycerides Lipase HDL Cholesterol PTH Intact Arterial Blood Glucose Urine WBC (Auto) Urine Creatinine 161.0 H Urine Total Protein 150 H ZINA Screen Crossmatch 02/26/20 02/26/20 02/26/20 04:39 04:39 04:39 WBC 30.3 H Hgb 9.1 L RBC Hct 29.8 L MCV 71 L MCH 22 L RDW 18.2 H Plt Count 530 H Lymph % (Auto) Lymph # Ross % (Auto) Ross # Lymph # (Auto) Ross # (Auto) Seg Neutrophils % Seg Neutrophils # Seg Neuts % (Manual) Lymphocytes % (Manual) Monocytes % (Manual) Nucleated RBC % Seg Neutrophils # Man Lymphocytes # (Manual) Monocytes # (Manual) Eosinophils # (Manual) Basophils # (Manual) ABG pH POC ABG pCO2 POC ABG pO2 ABG pO2 ABG HCO3 ABG O2 Saturation ABG Base Excess ABG Hemoglobin ABG Oxyhemoglobin ABG Sodium ABG Glucose Oxyhemoglobin Sodium Potassium Chloride Carbon Dioxide 19 L BUN 44 H Creatinine 3.1 H Glucose 106 H POC Glucose Calcium 8.1 L Phosphorus Magnesium Direct Bilirubin AST Alkaline Phosphatase Albumin Troponin T C-Reactive Protein Svkjx-3-Egdsvzimp PEP Interpretation Triglycerides Lipase 540 H HDL Cholesterol PTH Intact Arterial Blood Glucose Urine WBC (Auto) Urine Creatinine Urine Total Protein ZINA Screen Positive H Crossmatch 02/26/20 02/26/20 02/26/20 04:39 08:15 12:14 WBC Hgb RBC Hct MCV MCH RDW Plt Count Lymph % (Auto) Lymph # Ross % (Auto) Ross # Lymph # (Auto) Ross # (Auto) Seg Neutrophils % Seg Neutrophils # Seg Neuts % (Manual) Lymphocytes % (Manual) Monocytes % (Manual) Nucleated RBC % Seg Neutrophils # Man Lymphocytes # (Manual) Monocytes # (Manual) Eosinophils # (Manual) Basophils # (Manual) ABG pH POC ABG pCO2 POC ABG pO2 ABG pO2 ABG HCO3 ABG O2 Saturation ABG Base Excess ABG Hemoglobin ABG Oxyhemoglobin ABG Sodium ABG Glucose Oxyhemoglobin Sodium Potassium Chloride Carbon Dioxide BUN Creatinine Glucose POC Glucose 112 H Calcium Phosphorus Magnesium Direct Bilirubin AST Alkaline Phosphatase Albumin 2.8 L Troponin T C-Reactive Protein Gjryb-4-Gktddoujx 0.7 H PEP Interpretation see below H Triglycerides Lipase HDL Cholesterol PTH Intact 911.3 H Arterial Blood Glucose Urine WBC (Auto) Urine Creatinine Urine Total Protein ZINA Screen Crossmatch 02/27/20 02/27/20 02/27/20 04:18 04:18 04:18 WBC 26.8 H Hgb 7.9 L RBC Hct 26.3 L MCV 70 L MCH 21 L RDW 18.0 H Plt Count 513 H Lymph % (Auto) Lymph # Ross % (Auto) Ross # Lymph # (Auto) Ross # (Auto) Seg Neutrophils % Seg Neutrophils # Seg Neuts % (Manual) Lymphocytes % (Manual) Monocytes % (Manual) Nucleated RBC % Seg Neutrophils # Man Lymphocytes # (Manual) Monocytes # (Manual) Eosinophils # (Manual) Basophils # (Manual) ABG pH POC ABG pCO2 POC ABG pO2 ABG pO2 ABG HCO3 ABG O2 Saturation ABG Base Excess ABG Hemoglobin ABG Oxyhemoglobin ABG Sodium ABG Glucose Oxyhemoglobin Sodium 135 L 135 L Potassium Chloride Carbon Dioxide 15 L 16 L BUN 50 H 51 H Creatinine 3.4 H 3.4 H Glucose POC Glucose Calcium 7.4 L 7.5 L Phosphorus Magnesium Direct Bilirubin AST Alkaline Phosphatase Albumin 3.0 L Troponin T C-Reactive Protein 37.30 H Kqtvp-3-Dobdamsbc PEP Interpretation Triglycerides Lipase 177 H HDL Cholesterol PTH Intact Arterial Blood Glucose Urine WBC (Auto) Urine Creatinine Urine Total Protein ZINA Screen Crossmatch 02/27/20 02/28/20 02/28/20 16:57 05:07 05:07 WBC Hgb RBC Hct MCV MCH RDW Plt Count Lymph % (Auto) Lymph # Ross % (Auto) Ross # Lymph # (Auto) Ross # (Auto) Seg Neutrophils % Seg Neutrophils # Seg Neuts % (Manual) Lymphocytes % (Manual) Monocytes % (Manual) Nucleated RBC % Seg Neutrophils # Man Lymphocytes # (Manual) Monocytes # (Manual) Eosinophils # (Manual) Basophils # (Manual) ABG pH 7.336 L POC ABG pCO2 POC ABG pO2 ABG pO2 57.0 L ABG HCO3 16.4 L ABG O2 Saturation 88.2 L ABG Base Excess -8.4 L ABG Hemoglobin 10.4 L ABG Oxyhemoglobin ABG Sodium ABG Glucose Oxyhemoglobin 85.7 L Sodium Potassium Chloride Carbon Dioxide 14 L BUN 60 H Creatinine 4.2 H Glucose POC Glucose Calcium 8.2 L Phosphorus Magnesium Direct Bilirubin AST Alkaline Phosphatase Albumin Troponin T C-Reactive Protein Lvaxo-4-Osozbhmbe PEP Interpretation Triglycerides Lipase 155 H HDL Cholesterol PTH Intact Arterial Blood Glucose Urine WBC (Auto) Urine Creatinine Urine Total Protein ZINA Screen Crossmatch 02/28/20 02/28/20 02/28/20 05:56 11:05 11:05 WBC Hgb RBC Hct MCV MCH RDW Plt Count Lymph % (Auto) Lymph # Ross % (Auto) Ross # Lymph # (Auto) Ross # (Auto) Seg Neutrophils % Seg Neutrophils # Seg Neuts % (Manual) Lymphocytes % (Manual) Monocytes % (Manual) Nucleated RBC % Seg Neutrophils # Man Lymphocytes # (Manual) Monocytes # (Manual) Eosinophils # (Manual) Basophils # (Manual) ABG pH 7.317 L POC ABG pCO2 POC ABG pO2 76.2 L ABG pO2 ABG HCO3 16.4 L ABG O2 Saturation ABG Base Excess -8.9 L ABG Hemoglobin 6.6 L 7.6 L ABG Oxyhemoglobin ABG Sodium ABG Glucose Oxyhemoglobin 94.6 L Sodium Potassium Chloride Carbon Dioxide BUN Creatinine Glucose POC Glucose 115 H Calcium Phosphorus Magnesium Direct Bilirubin AST Alkaline Phosphatase Albumin Troponin T C-Reactive Protein Rhakk-8-Kbxaqsuvj PEP Interpretation Triglycerides Lipase HDL Cholesterol PTH Intact Arterial Blood Glucose Urine WBC (Auto) Urine Creatinine Urine Total Protein ZINA Screen Crossmatch 02/28/20 02/28/20 02/29/20 17:39 19:39 05:43 WBC Hgb RBC Hct MCV MCH RDW Plt Count Lymph % (Auto) Lymph # Ross % (Auto) Ross # Lymph # (Auto) Ross # (Auto) Seg Neutrophils % Seg Neutrophils # Seg Neuts % (Manual) Lymphocytes % (Manual) Monocytes % (Manual) Nucleated RBC % Seg Neutrophils # Man Lymphocytes # (Manual) Monocytes # (Manual) Eosinophils # (Manual) Basophils # (Manual) ABG pH 7.300 L POC ABG pCO2 POC ABG pO2 ABG pO2 117.5 H ABG HCO3 15.0 L ABG O2 Saturation ABG Base Excess -10.5 L ABG Hemoglobin 6.4 L ABG Oxyhemoglobin ABG Sodium ABG Glucose Oxyhemoglobin Sodium Potassium Chloride Carbon Dioxide BUN Creatinine Glucose POC Glucose 120 H 66 L Calcium Phosphorus Magnesium Direct Bilirubin AST Alkaline Phosphatase Albumin Troponin T C-Reactive Protein Vjngo-1-Vfsjjmxaf PEP Interpretation Triglycerides Lipase HDL Cholesterol PTH Intact Arterial Blood Glucose Urine WBC (Auto) Urine Creatinine Urine Total Protein ZINA Screen Crossmatch 02/29/20 02/29/20 02/29/20 05:45 12:04 12:31 WBC Hgb RBC Hct MCV MCH RDW Plt Count Lymph % (Auto) Lymph # Ross % (Auto) Ross # Lymph # (Auto) Ross # (Auto) Seg Neutrophils % Seg Neutrophils # Seg Neuts % (Manual) Lymphocytes % (Manual) Monocytes % (Manual) Nucleated RBC % Seg Neutrophils # Man Lymphocytes # (Manual) Monocytes # (Manual) Eosinophils # (Manual) Basophils # (Manual) ABG pH 7.212 L POC ABG pCO2 POC ABG pO2 ABG pO2 ABG HCO3 ABG O2 Saturation ABG Base Excess ABG Hemoglobin 7.4 L ABG Oxyhemoglobin ABG Sodium ABG Glucose Oxyhemoglobin Sodium Potassium Chloride Carbon Dioxide BUN Creatinine Glucose POC Glucose 65 L 64 L Calcium Phosphorus Magnesium Direct Bilirubin AST Alkaline Phosphatase Albumin Troponin T C-Reactive Protein Qbwxn-0-Usdhyhrvr PEP Interpretation Triglycerides Lipase HDL Cholesterol PTH Intact Arterial Blood Glucose Urine WBC (Auto) Urine Creatinine Urine Total Protein ZINA Screen Crossmatch 02/29/20 02/29/20 02/29/20 14:22 14:22 18:20 WBC Hgb RBC Hct MCV MCH RDW Plt Count Lymph % (Auto) Lymph # Ross % (Auto) Ross # Lymph # (Auto) Ross # (Auto) Seg Neutrophils % Seg Neutrophils # Seg Neuts % (Manual) Lymphocytes % (Manual) Monocytes % (Manual) Nucleated RBC % Seg Neutrophils # Man Lymphocytes # (Manual) Monocytes # (Manual) Eosinophils # (Manual) Basophils # (Manual) ABG pH POC ABG pCO2 POC ABG pO2 ABG pO2 ABG HCO3 ABG O2 Saturation ABG Base Excess ABG Hemoglobin ABG Oxyhemoglobin ABG Sodium ABG Glucose Oxyhemoglobin Sodium Potassium Chloride Carbon Dioxide 16 L BUN 77 H Creatinine 4.7 H Glucose POC Glucose 66 L Calcium Phosphorus 7.50 H Magnesium 2.60 H Direct Bilirubin AST Alkaline Phosphatase Albumin 2.3 L Troponin T C-Reactive Protein Iqzuy-8-Olcshwzwv PEP Interpretation Triglycerides Lipase HDL Cholesterol PTH Intact Arterial Blood Glucose Urine WBC (Auto) Urine Creatinine Urine Total Protein ZINA Screen Crossmatch 02/29/20 03/01/20 03/01/20 18:24 04:05 04:37 WBC Hgb RBC Hct MCV MCH RDW Plt Count Lymph % (Auto) Lymph # Ross % (Auto) Ross # Lymph # (Auto) Ross # (Auto) Seg Neutrophils % Seg Neutrophils # Seg Neuts % (Manual) Lymphocytes % (Manual) Monocytes % (Manual) Nucleated RBC % Seg Neutrophils # Man Lymphocytes # (Manual) Monocytes # (Manual) Eosinophils # (Manual) Basophils # (Manual) ABG pH 7.271 L 7.347 L POC ABG pCO2 POC ABG pO2 ABG pO2 133.5 H ABG HCO3 15.8 L ABG O2 Saturation ABG Base Excess -8.9 L ABG Hemoglobin 7.2 L 7.6 L ABG Oxyhemoglobin 93.4 L ABG Sodium ABG Glucose Oxyhemoglobin Sodium Potassium Chloride 107.6 H Carbon Dioxide 14 L BUN 83 H Creatinine 5.6 H Glucose POC Glucose Calcium Phosphorus 6.10 H Magnesium 2.40 H Direct Bilirubin AST Alkaline Phosphatase Albumin Troponin T C-Reactive Protein Wwvsz-9-Hxrrmiraa PEP Interpretation Triglycerides Lipase HDL Cholesterol PTH Intact Arterial Blood Glucose Urine WBC (Auto) Urine Creatinine Urine Total Protein ZINA Screen Crossmatch 03/01/20 03/01/20 03/01/20 11:06 16:22 18:12 WBC 30.5 H Hgb 6.2 L RBC 2.92 L Hct 20.8 L MCV 71 L MCH 21 L RDW 18.2 H Plt Count 560 H Lymph % (Auto) Lymph # Ross % (Auto) Ross # Lymph # (Auto) Ross # (Auto) Seg Neutrophils % Seg Neutrophils # Seg Neuts % (Manual) 79.0 H Lymphocytes % (Manual) 3.0 L Monocytes % (Manual) Nucleated RBC % Seg Neutrophils # Man 24.1 H Lymphocytes # (Manual) 0.9 L Monocytes # (Manual) 2.1 H Eosinophils # (Manual) Basophils # (Manual) ABG pH POC ABG pCO2 POC ABG pO2 ABG pO2 ABG HCO3 ABG O2 Saturation ABG Base Excess ABG Hemoglobin ABG Oxyhemoglobin ABG Sodium ABG Glucose Oxyhemoglobin Sodium Potassium 5.3 H D Chloride Carbon Dioxide 11 L BUN 77 H Creatinine 5.0 H Glucose 54 L POC Glucose 121 H Calcium Phosphorus Magnesium Direct Bilirubin AST Alkaline Phosphatase Albumin 3.0 L Troponin T C-Reactive Protein 36.50 H Tdlcs-7-Qdlelpilk PEP Interpretation Triglycerides Lipase HDL Cholesterol PTH Intact Arterial Blood Glucose Urine WBC (Auto) Urine Creatinine Urine Total Protein ZINA Screen Crossmatch 03/01/20 03/01/20 03/01/20 18:30 23:37 Unknown WBC Hgb RBC Hct MCV MCH RDW Plt Count Lymph % (Auto) Lymph # Ross % (Auto) Ross # Lymph # (Auto) Ross # (Auto) Seg Neutrophils % Seg Neutrophils # Seg Neuts % (Manual) Lymphocytes % (Manual) Monocytes % (Manual) Nucleated RBC % Seg Neutrophils # Man Lymphocytes # (Manual) Monocytes # (Manual) Eosinophils # (Manual) Basophils # (Manual) ABG pH POC ABG pCO2 POC ABG pO2 ABG pO2 ABG HCO3 ABG O2 Saturation ABG Base Excess ABG Hemoglobin ABG Oxyhemoglobin ABG Sodium ABG Glucose Oxyhemoglobin Sodium Potassium Chloride Carbon Dioxide BUN Creatinine Glucose POC Glucose 125 H Calcium Phosphorus Magnesium Direct Bilirubin AST Alkaline Phosphatase Albumin Troponin T C-Reactive Protein Rsnov-7-Mpwqudvrf PEP Interpretation Triglycerides Lipase 297 H HDL Cholesterol PTH Intact Arterial Blood Glucose Urine WBC (Auto) Urine Creatinine Urine Total Protein ZINA Screen Crossmatch See Detail 03/02/20 03/02/20 03/02/20 04:00 05:36 05:36 WBC 26.0 H Hgb 7.8 L RBC 3.26 L Hct 24.2 L MCV 74 L MCH 24 L RDW 21.3 H Plt Count 508 H Lymph % (Auto) Lymph # Ross % (Auto) Ross # Lymph # (Auto) Ross # (Auto) Seg Neutrophils % Seg Neutrophils # Seg Neuts % (Manual) 86.0 H Lymphocytes % (Manual) 4.0 L Monocytes % (Manual) Nucleated RBC % 2.0 H Seg Neutrophils # Man 22.4 H Lymphocytes # (Manual) 1.0 L Monocytes # (Manual) Eosinophils # (Manual) Basophils # (Manual) ABG pH POC ABG pCO2 27.8 L POC ABG pO2 ABG pO2 ABG HCO3 ABG O2 Saturation ABG Base Excess ABG Hemoglobin 8 L ABG Oxyhemoglobin ABG Sodium ABG Glucose Oxyhemoglobin Sodium Potassium Chloride Carbon Dioxide 17 L BUN 85 H Creatinine 5.6 H Glucose 109 H POC Glucose Calcium Phosphorus Magnesium 2.50 H Direct Bilirubin AST Alkaline Phosphatase Albumin 2.3 L Troponin T C-Reactive Protein Cfjje-1-Kbggjqjfh PEP Interpretation Triglycerides Lipase HDL Cholesterol PTH Intact Arterial Blood Glucose Urine WBC (Auto) Urine Creatinine Urine Total Protein ZINA Screen Crossmatch 03/03/20 03/03/20 03/03/20 04:00 04:36 04:36 WBC Hgb RBC Hct MCV MCH RDW Plt Count Lymph % (Auto) Lymph # Ross % (Auto) Ross # Lymph # (Auto) Ross # (Auto) Seg Neutrophils % Seg Neutrophils # Seg Neuts % (Manual) Lymphocytes % (Manual) Monocytes % (Manual) Nucleated RBC % Seg Neutrophils # Man Lymphocytes # (Manual) Monocytes # (Manual) Eosinophils # (Manual) Basophils # (Manual) ABG pH POC ABG pCO2 31.8 L POC ABG pO2 ABG pO2 ABG HCO3 ABG O2 Saturation ABG Base Excess ABG Hemoglobin 8.6 L ABG Oxyhemoglobin ABG Sodium ABG Glucose Oxyhemoglobin Sodium 147 H Potassium Chloride 108.4 H Carbon Dioxide 16 L BUN 87 H Creatinine 6.2 H Glucose POC Glucose Calcium Phosphorus Magnesium 2.50 H Direct Bilirubin 1.0 H AST Alkaline Phosphatase Albumin 2.4 L Troponin T C-Reactive Protein Iglfd-3-Uadqrxvba PEP Interpretation Triglycerides Lipase 119 H HDL Cholesterol PTH Intact Arterial Blood Glucose Urine WBC (Auto) Urine Creatinine Urine Total Protein ZINA Screen Crossmatch 03/03/20 03/03/20 03/03/20 04:36 12:48 17:48 WBC 28.0 H Hgb 8.1 L RBC 3.41 L Hct 25.3 L MCV 74 L MCH 24 L RDW 20.8 H Plt Count 557 H Lymph % (Auto) Lymph # Ross % (Auto) Ross # Lymph # (Auto) Ross # (Auto) Seg Neutrophils % Seg Neutrophils # Seg Neuts % (Manual) 82.0 H Lymphocytes % (Manual) 4.0 L Monocytes % (Manual) Nucleated RBC % Seg Neutrophils # Man 23.0 H Lymphocytes # (Manual) 1.1 L Monocytes # (Manual) 2.0 H Eosinophils # (Manual) Basophils # (Manual) ABG pH POC ABG pCO2 POC ABG pO2 ABG pO2 ABG HCO3 ABG O2 Saturation ABG Base Excess ABG Hemoglobin ABG Oxyhemoglobin ABG Sodium ABG Glucose Oxyhemoglobin Sodium Potassium Chloride Carbon Dioxide BUN Creatinine Glucose POC Glucose 131 H 113 H Calcium Phosphorus Magnesium Direct Bilirubin AST Alkaline Phosphatase Albumin Troponin T C-Reactive Protein Whslz-9-Rsolueijr PEP Interpretation Triglycerides Lipase HDL Cholesterol PTH Intact Arterial Blood Glucose Urine WBC (Auto) Urine Creatinine Urine Total Protein ZINA Screen Crossmatch 03/03/20 03/04/20 03/04/20 23:43 03:43 04:05 WBC Hgb RBC Hct MCV MCH RDW Plt Count Lymph % (Auto) Lymph # Ross % (Auto) Ross # Lymph # (Auto) Ross # (Auto) Seg Neutrophils % Seg Neutrophils # Seg Neuts % (Manual) Lymphocytes % (Manual) Monocytes % (Manual) Nucleated RBC % Seg Neutrophils # Man Lymphocytes # (Manual) Monocytes # (Manual) Eosinophils # (Manual) Basophils # (Manual) ABG pH POC ABG pCO2 POC ABG pO2 ABG pO2 57.4 L ABG HCO3 27.2 H ABG O2 Saturation 88.6 L ABG Base Excess ABG Hemoglobin ABG Oxyhemoglobin ABG Sodium ABG Glucose Oxyhemoglobin Sodium Potassium 3.3 L Chloride Carbon Dioxide BUN 65 H Creatinine 5.3 H Glucose 152 H POC Glucose 149 H Calcium Phosphorus Magnesium Direct Bilirubin 0.7 H AST Alkaline Phosphatase Albumin 2.5 L Troponin T C-Reactive Protein Xeseb-0-Fztlhoryc PEP Interpretation Triglycerides Lipase HDL Cholesterol PTH Intact Arterial Blood Glucose Urine WBC (Auto) Urine Creatinine Urine Total Protein ZINA Screen Crossmatch 03/04/20 03/04/20 03/04/20 04:05 05:26 12:21 WBC 30.1 H Hgb 8.2 L RBC 3.44 L Hct 25.2 L MCV 73 L MCH 24 L RDW 20.7 H Plt Count 554 H Lymph % (Auto) 3.3 L Lymph # Ross % (Auto) Ross # Lymph # (Auto) 1.0 L Ross # (Auto) 2.0 H Seg Neutrophils % 88.6 H Seg Neutrophils # 26.6 H Seg Neuts % (Manual) Lymphocytes % (Manual) Monocytes % (Manual) Nucleated RBC % Seg Neutrophils # Man Lymphocytes # (Manual) Monocytes # (Manual) Eosinophils # (Manual) Basophils # (Manual) ABG pH POC ABG pCO2 POC ABG pO2 ABG pO2 ABG HCO3 ABG O2 Saturation ABG Base Excess ABG Hemoglobin ABG Oxyhemoglobin ABG Sodium ABG Glucose Oxyhemoglobin Sodium Potassium Chloride Carbon Dioxide BUN Creatinine Glucose POC Glucose 136 H 155 H Calcium Phosphorus Magnesium Direct Bilirubin AST Alkaline Phosphatase Albumin Troponin T C-Reactive Protein Uddln-6-Jjatoxgjh PEP Interpretation Triglycerides Lipase HDL Cholesterol PTH Intact Arterial Blood Glucose Urine WBC (Auto) Urine Creatinine Urine Total Protein ZINA Screen Crossmatch 03/04/20 03/04/20 03/04/20 18:02 19:00 23:24 WBC Hgb RBC Hct MCV MCH RDW Plt Count Lymph % (Auto) Lymph # Ross % (Auto) Ross # Lymph # (Auto) Ross # (Auto) Seg Neutrophils % Seg Neutrophils # Seg Neuts % (Manual) Lymphocytes % (Manual) Monocytes % (Manual) Nucleated RBC % Seg Neutrophils # Man Lymphocytes # (Manual) Monocytes # (Manual) Eosinophils # (Manual) Basophils # (Manual) ABG pH POC ABG pCO2 POC ABG pO2 ABG pO2 ABG HCO3 ABG O2 Saturation ABG Base Excess ABG Hemoglobin ABG Oxyhemoglobin ABG Sodium ABG Glucose Oxyhemoglobin Sodium Potassium Chloride Carbon Dioxide BUN Creatinine Glucose POC Glucose 124 H 115 H Calcium Phosphorus Magnesium Direct Bilirubin AST Alkaline Phosphatase Albumin Troponin T C-Reactive Protein Ymaqp-9-Yaqwaltsn PEP Interpretation Triglycerides Lipase 72 H HDL Cholesterol PTH Intact Arterial Blood Glucose Urine WBC (Auto) Urine Creatinine Urine Total Protein ZINA Screen Crossmatch 03/05/20 03/05/20 03/05/20 05:04 05:29 06:00 WBC Hgb RBC Hct MCV MCH RDW Plt Count Lymph % (Auto) Lymph # Ross % (Auto) Ross # Lymph # (Auto) Ross # (Auto) Seg Neutrophils % Seg Neutrophils # Seg Neuts % (Manual) Lymphocytes % (Manual) Monocytes % (Manual) Nucleated RBC % Seg Neutrophils # Man Lymphocytes # (Manual) Monocytes # (Manual) Eosinophils # (Manual) Basophils # (Manual) ABG pH POC ABG pCO2 POC ABG pO2 ABG pO2 62.5 L ABG HCO3 26.4 H ABG O2 Saturation 92.1 L ABG Base Excess ABG Hemoglobin 9.3 L ABG Oxyhemoglobin ABG Sodium ABG Glucose Oxyhemoglobin 89.9 L Sodium Potassium Chloride Carbon Dioxide BUN 54 H Creatinine 5.4 H Glucose 125 H POC Glucose 134 H Calcium Phosphorus Magnesium Direct Bilirubin 0.6 H AST Alkaline Phosphatase 133 H Albumin 2.5 L Troponin T C-Reactive Protein Nwmpq-2-Uknmpvhfr PEP Interpretation Triglycerides Lipase HDL Cholesterol PTH Intact Arterial Blood Glucose Urine WBC (Auto) Urine Creatinine Urine Total Protein ZINA Screen Crossmatch 03/05/20 03/05/20 03/05/20 12:18 18:01 21:39 WBC Hgb RBC Hct MCV MCH RDW Plt Count Lymph % (Auto) Lymph # Ross % (Auto) Ross # Lymph # (Auto) Ross # (Auto) Seg Neutrophils % Seg Neutrophils # Seg Neuts % (Manual) Lymphocytes % (Manual) Monocytes % (Manual) Nucleated RBC % Seg Neutrophils # Man Lymphocytes # (Manual) Monocytes # (Manual) Eosinophils # (Manual) Basophils # (Manual) ABG pH POC ABG pCO2 POC ABG pO2 ABG pO2 ABG HCO3 ABG O2 Saturation ABG Base Excess ABG Hemoglobin ABG Oxyhemoglobin ABG Sodium ABG Glucose Oxyhemoglobin Sodium Potassium Chloride Carbon Dioxide BUN Creatinine Glucose POC Glucose 118 H 108 H 123 H Calcium Phosphorus Magnesium Direct Bilirubin AST Alkaline Phosphatase Albumin Troponin T C-Reactive Protein Mzflh-0-Qkogtgqcy PEP Interpretation Triglycerides Lipase HDL Cholesterol PTH Intact Arterial Blood Glucose Urine WBC (Auto) Urine Creatinine Urine Total Protein ZINA Screen Crossmatch 03/06/20 03/06/20 03/06/20 04:40 04:41 05:44 WBC Hgb RBC Hct MCV MCH RDW Plt Count Lymph % (Auto) Lymph # Ross % (Auto) Ross # Lymph # (Auto) Ross # (Auto) Seg Neutrophils % Seg Neutrophils # Seg Neuts % (Manual) Lymphocytes % (Manual) Monocytes % (Manual) Nucleated RBC % Seg Neutrophils # Man Lymphocytes # (Manual) Monocytes # (Manual) Eosinophils # (Manual) Basophils # (Manual) ABG pH POC ABG pCO2 POC ABG pO2 64.9 L ABG pO2 ABG HCO3 ABG O2 Saturation ABG Base Excess ABG Hemoglobin 9.9 L ABG Oxyhemoglobin 90.5 L ABG Sodium ABG Glucose Oxyhemoglobin Sodium Potassium Chloride 94.7 L Carbon Dioxide BUN 70 H Creatinine 7.1 H Glucose 113 H POC Glucose 134 H Calcium Phosphorus Magnesium Direct Bilirubin AST Alkaline Phosphatase Albumin Troponin T C-Reactive Protein Gnziz-2-Waurfjnhf PEP Interpretation Triglycerides Lipase HDL Cholesterol PTH Intact Arterial Blood Glucose Urine WBC (Auto) Urine Creatinine Urine Total Protein ZINA Screen Crossmatch 03/06/20 03/06/20 03/06/20 08:54 11:56 18:19 WBC 31.5 H Hgb 8.7 L RBC Hct 27.8 L MCV 75 L MCH 23 L RDW 21.2 H Plt Count 516 H Lymph % (Auto) Lymph # Ross % (Auto) Ross # Lymph # (Auto) Ross # (Auto) Seg Neutrophils % Seg Neutrophils # Seg Neuts % (Manual) 93.0 H Lymphocytes % (Manual) 2.0 L Monocytes % (Manual) Nucleated RBC % Seg Neutrophils # Man 29.3 H Lymphocytes # (Manual) 0.6 L Monocytes # (Manual) Eosinophils # (Manual) 0.6 H Basophils # (Manual) ABG pH POC ABG pCO2 POC ABG pO2 ABG pO2 ABG HCO3 ABG O2 Saturation ABG Base Excess ABG Hemoglobin ABG Oxyhemoglobin ABG Sodium ABG Glucose Oxyhemoglobin Sodium Potassium Chloride Carbon Dioxide BUN Creatinine Glucose POC Glucose 131 H 117 H Calcium Phosphorus Magnesium Direct Bilirubin AST Alkaline Phosphatase Albumin Troponin T C-Reactive Protein Sqvyr-6-Bsvptbehg PEP Interpretation Triglycerides Lipase HDL Cholesterol PTH Intact Arterial Blood Glucose Urine WBC (Auto) Urine Creatinine Urine Total Protein ZINA Screen Crossmatch 03/07/20 03/07/20 03/07/20 04:42 05:03 05:03 WBC 26.9 H Hgb 8.3 L RBC 3.50 L Hct 26.6 L MCV 76 L MCH 24 L RDW 21.3 H Plt Count 470 H Lymph % (Auto) Lymph # Ross % (Auto) Ross # Lymph # (Auto) Ross # (Auto) Seg Neutrophils % Seg Neutrophils # Seg Neuts % (Manual) 89.0 H Lymphocytes % (Manual) 4.0 L Monocytes % (Manual) Nucleated RBC % Seg Neutrophils # Man 23.9 H Lymphocytes # (Manual) 1.1 L Monocytes # (Manual) Eosinophils # (Manual) Basophils # (Manual) 0.3 H ABG pH POC ABG pCO2 POC ABG pO2 68.3 L ABG pO2 ABG HCO3 ABG O2 Saturation ABG Base Excess ABG Hemoglobin 9.3 L ABG Oxyhemoglobin ABG Sodium ABG Glucose 112 H Oxyhemoglobin Sodium Potassium Chloride 94.8 L Carbon Dioxide BUN 52 H Creatinine 6.3 H Glucose 106 H POC Glucose Calcium Phosphorus Magnesium Direct Bilirubin AST Alkaline Phosphatase 132 H Albumin 2.5 L Troponin T C-Reactive Protein Ulxgy-5-Ulzdacjfk PEP Interpretation Triglycerides Lipase HDL Cholesterol PTH Intact Arterial Blood Glucose 112 H Urine WBC (Auto) Urine Creatinine Urine Total Protein ZINA Screen Crossmatch 03/07/20 03/07/20 03/07/20 12:08 18:05 23:29 WBC Hgb RBC Hct MCV MCH RDW Plt Count Lymph % (Auto) Lymph # Ross % (Auto) Ross # Lymph # (Auto) Ross # (Auto) Seg Neutrophils % Seg Neutrophils # Seg Neuts % (Manual) Lymphocytes % (Manual) Monocytes % (Manual) Nucleated RBC % Seg Neutrophils # Man Lymphocytes # (Manual) Monocytes # (Manual) Eosinophils # (Manual) Basophils # (Manual) ABG pH POC ABG pCO2 POC ABG pO2 ABG pO2 ABG HCO3 ABG O2 Saturation ABG Base Excess ABG Hemoglobin ABG Oxyhemoglobin ABG Sodium ABG Glucose Oxyhemoglobin Sodium Potassium Chloride Carbon Dioxide BUN Creatinine Glucose POC Glucose 114 H 111 H 118 H Calcium Phosphorus Magnesium Direct Bilirubin AST Alkaline Phosphatase Albumin Troponin T C-Reactive Protein Dldzt-4-Iwvdhopnn PEP Interpretation Triglycerides Lipase HDL Cholesterol PTH Intact Arterial Blood Glucose Urine WBC (Auto) Urine Creatinine Urine Total Protein ZINA Screen Crossmatch 03/08/20 03/08/20 03/08/20 04:50 17:45 23:53 WBC Hgb RBC Hct MCV MCH RDW Plt Count Lymph % (Auto) Lymph # Ross % (Auto) Ross # Lymph # (Auto) Ross # (Auto) Seg Neutrophils % Seg Neutrophils # Seg Neuts % (Manual) Lymphocytes % (Manual) Monocytes % (Manual) Nucleated RBC % Seg Neutrophils # Man Lymphocytes # (Manual) Monocytes # (Manual) Eosinophils # (Manual) Basophils # (Manual) ABG pH POC ABG pCO2 POC ABG pO2 ABG pO2 ABG HCO3 ABG O2 Saturation ABG Base Excess ABG Hemoglobin ABG Oxyhemoglobin ABG Sodium ABG Glucose Oxyhemoglobin Sodium Potassium Chloride 95.5 L Carbon Dioxide BUN 52 H Creatinine 6.2 H Glucose 109 H POC Glucose 106 H 106 H Calcium Phosphorus Magnesium Direct Bilirubin AST Alkaline Phosphatase Albumin Troponin T C-Reactive Protein Fcuhh-7-Xmfukxzfe PEP Interpretation Triglycerides Lipase HDL Cholesterol PTH Intact Arterial Blood Glucose Urine WBC (Auto) Urine Creatinine Urine Total Protein ZINA Screen Crossmatch 03/09/20 03/09/20 03/09/20 04:00 07:53 18:22 WBC 21.9 H Hgb 7.5 L RBC 3.27 L Hct 24.3 L MCV 74 L MCH 23 L RDW 20.9 H Plt Count 488 H Lymph % (Auto) Lymph # Ross % (Auto) Ross # Lymph # (Auto) Ross # (Auto) Seg Neutrophils % Seg Neutrophils # Seg Neuts % (Manual) Lymphocytes % (Manual) Monocytes % (Manual) Nucleated RBC % Seg Neutrophils # Man Lymphocytes # (Manual) Monocytes # (Manual) Eosinophils # (Manual) Basophils # (Manual) ABG pH POC ABG pCO2 POC ABG pO2 ABG pO2 ABG HCO3 ABG O2 Saturation ABG Base Excess ABG Hemoglobin ABG Oxyhemoglobin ABG Sodium ABG Glucose Oxyhemoglobin Sodium Potassium Chloride 92.8 L Carbon Dioxide BUN 74 H Creatinine 7.8 H Glucose POC Glucose 114 H Calcium Phosphorus Magnesium Direct Bilirubin AST Alkaline Phosphatase Albumin Troponin T C-Reactive Protein Vijqx-0-Pwuwmybkn PEP Interpretation Triglycerides Lipase HDL Cholesterol PTH Intact Arterial Blood Glucose Urine WBC (Auto) Urine Creatinine Urine Total Protein ZINA Screen Crossmatch 03/10/20 03/10/20 03/10/20 04:37 04:37 09:53 WBC 16.0 H Hgb 7.1 L RBC 2.99 L Hct 22.4 L MCV 75 L MCH 24 L RDW 21.5 H Plt Count Lymph % (Auto) 9.2 L Lymph # Ross % (Auto) 9.9 H Ross # Lymph # (Auto) Ross # (Auto) 1.6 H Seg Neutrophils % 79.2 H Seg Neutrophils # 12.6 H Seg Neuts % (Manual) Lymphocytes % (Manual) Monocytes % (Manual) Nucleated RBC % Seg Neutrophils # Man Lymphocytes # (Manual) Monocytes # (Manual) Eosinophils # (Manual) Basophils # (Manual) ABG pH POC ABG pCO2 POC ABG pO2 ABG pO2 ABG HCO3 ABG O2 Saturation ABG Base Excess ABG Hemoglobin 7.7 L ABG Oxyhemoglobin ABG Sodium 134.7 L ABG Glucose 103 H Oxyhemoglobin Sodium Potassium Chloride Carbon Dioxide BUN 45 H Creatinine 5.6 H Glucose 108 H POC Glucose Calcium Phosphorus Magnesium Direct Bilirubin AST Alkaline Phosphatase Albumin Troponin T C-Reactive Protein Bmuqw-4-Dtluihwav PEP Interpretation Triglycerides Lipase HDL Cholesterol PTH Intact Arterial Blood Glucose 103 H Urine WBC (Auto) Urine Creatinine Urine Total Protein ZINA Screen Crossmatch 03/10/20 03/11/20 03/11/20 23:46 02:52 03:25 WBC Hgb RBC Hct MCV MCH RDW Plt Count Lymph % (Auto) Lymph # Ross % (Auto) Ross # Lymph # (Auto) Ross # (Auto) Seg Neutrophils % Seg Neutrophils # Seg Neuts % (Manual) Lymphocytes % (Manual) Monocytes % (Manual) Nucleated RBC % Seg Neutrophils # Man Lymphocytes # (Manual) Monocytes # (Manual) Eosinophils # (Manual) Basophils # (Manual) ABG pH POC ABG pCO2 POC ABG pO2 77.5 L ABG pO2 ABG HCO3 ABG O2 Saturation ABG Base Excess ABG Hemoglobin 8.0 L ABG Oxyhemoglobin ABG Sodium 135.8 L ABG Glucose Oxyhemoglobin Sodium Potassium Chloride Carbon Dioxide BUN Creatinine Glucose POC Glucose 116 H Calcium Phosphorus Magnesium Direct Bilirubin AST Alkaline Phosphatase Albumin Troponin T 0.093 H C-Reactive Protein Jiikx-7-Xsyhlfyld PEP Interpretation Triglycerides Lipase HDL Cholesterol PTH Intact Arterial Blood Glucose Urine WBC (Auto) Urine Creatinine Urine Total Protein ZINA Screen Crossmatch 03/11/20 03/11/20 03/11/20 04:32 04:32 06:16 WBC 22.4 H Hgb 7.8 L RBC 3.32 L Hct 25.0 L MCV 75 L MCH 24 L RDW 21.4 H Plt Count 553 H Lymph % (Auto) Lymph # Ross % (Auto) Ross # Lymph # (Auto) Ross # (Auto) Seg Neutrophils % Seg Neutrophils # Seg Neuts % (Manual) 81.0 H Lymphocytes % (Manual) 8.0 L Monocytes % (Manual) 8.0 H Nucleated RBC % Seg Neutrophils # Man 18.1 H Lymphocytes # (Manual) Monocytes # (Manual) 1.8 H Eosinophils # (Manual) Basophils # (Manual) 0.2 H ABG pH POC ABG pCO2 POC ABG pO2 ABG pO2 ABG HCO3 ABG O2 Saturation ABG Base Excess ABG Hemoglobin ABG Oxyhemoglobin ABG Sodium ABG Glucose Oxyhemoglobin Sodium Potassium Chloride 96.6 L Carbon Dioxide BUN 64 H Creatinine 6.5 H Glucose 101 H POC Glucose 142 H Calcium Phosphorus Magnesium Direct Bilirubin AST 41 H Alkaline Phosphatase Albumin 2.7 L Troponin T C-Reactive Protein Tpoqd-2-Dtyszduco PEP Interpretation Triglycerides Lipase HDL Cholesterol PTH Intact Arterial Blood Glucose Urine WBC (Auto) Urine Creatinine Urine Total Protein ZINA Screen Crossmatch 03/11/20 03/11/20 03/11/20 06:50 07:31 14:31 WBC Hgb 7.7 L RBC Hct 23.7 L MCV MCH RDW Plt Count 553 H Lymph % (Auto) Lymph # Ross % (Auto) Ross # Lymph # (Auto) Ross # (Auto) Seg Neutrophils % Seg Neutrophils # Seg Neuts % (Manual) Lymphocytes % (Manual) Monocytes % (Manual) Nucleated RBC % Seg Neutrophils # Man Lymphocytes # (Manual) Monocytes # (Manual) Eosinophils # (Manual) Basophils # (Manual) ABG pH POC ABG pCO2 POC ABG pO2 ABG pO2 67.8 L ABG HCO3 ABG O2 Saturation ABG Base Excess ABG Hemoglobin ABG Oxyhemoglobin ABG Sodium ABG Glucose Oxyhemoglobin Sodium Potassium Chloride Carbon Dioxide BUN Creatinine Glucose POC Glucose Calcium Phosphorus Magnesium Direct Bilirubin AST Alkaline Phosphatase Albumin Troponin T 0.085 H C-Reactive Protein Bgvhs-8-Lrtmfkmiy PEP Interpretation Triglycerides 247 H Lipase HDL Cholesterol 28 L PTH Intact Arterial Blood Glucose Urine WBC (Auto) Urine Creatinine Urine Total Protein ZINA Screen Crossmatch 03/12/20 03/12/20 03/13/20 03:46 17:33 04:00 WBC Hgb 6.6 L RBC Hct 19.5 L* MCV MCH RDW Plt Count 603 H Lymph % (Auto) Lymph # Ross % (Auto) Ross # Lymph # (Auto) Ross # (Auto) Seg Neutrophils % Seg Neutrophils # Seg Neuts % (Manual) Lymphocytes % (Manual) Monocytes % (Manual) Nucleated RBC % Seg Neutrophils # Man Lymphocytes # (Manual) Monocytes # (Manual) Eosinophils # (Manual) Basophils # (Manual) ABG pH POC ABG pCO2 POC ABG pO2 78.3 L ABG pO2 ABG HCO3 ABG O2 Saturation ABG Base Excess ABG Hemoglobin 7.9 L ABG Oxyhemoglobin ABG Sodium 134.8 L ABG Glucose Oxyhemoglobin Sodium Potassium Chloride Carbon Dioxide BUN Creatinine Glucose POC Glucose 107 H Calcium Phosphorus Magnesium Direct Bilirubin AST Alkaline Phosphatase Albumin Troponin T C-Reactive Protein Hxpma-0-Raidhwnhg PEP Interpretation Triglycerides Lipase HDL Cholesterol PTH Intact Arterial Blood Glucose Urine WBC (Auto) Urine Creatinine Urine Total Protein ZINA Screen Crossmatch 03/13/20 03/13/20 03/13/20 04:00 08:20 08:45 WBC Hgb 7.0 L RBC Hct 21.8 L MCV MCH RDW Plt Count Lymph % (Auto) Lymph # Ross % (Auto) Ross # Lymph # (Auto) Ross # (Auto) Seg Neutrophils % Seg Neutrophils # Seg Neuts % (Manual) Lymphocytes % (Manual) Monocytes % (Manual) Nucleated RBC % Seg Neutrophils # Man Lymphocytes # (Manual) Monocytes # (Manual) Eosinophils # (Manual) Basophils # (Manual) ABG pH POC ABG pCO2 POC ABG pO2 ABG pO2 ABG HCO3 27.4 H ABG O2 Saturation ABG Base Excess ABG Hemoglobin 8.7 L ABG Oxyhemoglobin ABG Sodium ABG Glucose Oxyhemoglobin 94.6 L Sodium Potassium Chloride Carbon Dioxide BUN Creatinine Glucose POC Glucose Calcium Phosphorus Magnesium Direct Bilirubin AST Alkaline Phosphatase Albumin Troponin T C-Reactive Protein Arsfy-5-Udupyagdl PEP Interpretation Triglycerides Lipase HDL Cholesterol PTH Intact Arterial Blood Glucose Urine WBC (Auto) Urine Creatinine Urine Total Protein ZINA Screen Crossmatch See Detail Chest x-ray: image reviewed Allied health notes reviewed: nursing
--- NOTE | 2020-03-13 16:42 | Progress Note ---
Assessment and Plan Assessment * Acute kidney injury attributed to prerenal azotemia/ATN related to pancreatitis vs NSAID induced nephropathy vs PPI --Serologies: ANCA, C3, C4 - negative; ZINA positive * Acute hypoxic respiratory failure * Chest pain --Elevated troponin * Metabolic acidosis * Acute severe pancreatitis * Fever * Accelerated hypertension - resolved * Anemia Plan: * Continue MWF schedule for now- UF as tolerated * Monitor SCr trend and UOP for evidence of recovery * Cardiology recommendations reviewed - conservative cardiac management for now * GI recommendations reviewed - may need MRCP in future * Vent management per pulm * Continue antiHTN medications * Abx per ID - currently on Meropenem * Hold ACEi for now * Start Epogen TIW prn * Dose medications for renal function * Avoid potential nephrotoxins Subjective Date of service: 03/13/20 Principal diagnosis: HTNsive urgency; Morbid obesity; Ac. pancreatitis; Abdominal pain Interval history: No acute events overnight. Remains intubated. Patient is texting on cell phone. Objective - Vital Signs Vital signs: Vital Signs - 12hr 03/13/20 03/13/20 03/13/20 04:45 05:00 05:15 Temperature Pulse Rate 91 H 92 H 94 H Pulse Rate [ Anterior Bilateral Throughout] Pulse Rate [ From Monitor] Pulse Rate [ Left Upper Lobe ] Respiratory 20 20 20 Rate Respiratory Rate [Abdomen] Respiratory Rate [Anterior Bilateral Throughout] Respiratory Rate [Left Upper Lobe] Blood Pressure 123/78 128/77 127/79 O2 Sat by Pulse 98 97 98 Oximetry O2 Sat by Pulse Oximetry [ Anterior Bilateral Throughout] 03/13/20 03/13/20 03/13/20 05:30 05:45 06:00 Temperature Pulse Rate 92 H 91 H 90 Pulse Rate [ Anterior Bilateral Throughout] Pulse Rate [ From Monitor] Pulse Rate [ Left Upper Lobe ] Respiratory 20 20 20 Rate Respiratory Rate [Abdomen] Respiratory Rate [Anterior Bilateral Throughout] Respiratory Rate [Left Upper Lobe] Blood Pressure 131/79 123/82 122/76 O2 Sat by Pulse 100 98 99 Oximetry O2 Sat by Pulse Oximetry [ Anterior Bilateral Throughout] 03/13/20 03/13/20 03/13/20 06:15 06:30 06:41 Temperature Pulse Rate 88 87 87 Pulse Rate [ Anterior Bilateral Throughout] Pulse Rate [ From Monitor] Pulse Rate [ Left Upper Lobe ] Respiratory 20 20 Rate Respiratory Rate [Abdomen] Respiratory Rate [Anterior Bilateral Throughout] Respiratory Rate [Left Upper Lobe] Blood Pressure 119/72 118/72 118/72 O2 Sat by Pulse 100 100 Oximetry O2 Sat by Pulse Oximetry [ Anterior Bilateral Throughout] 03/13/20 03/13/20 03/13/20 06:45 07:00 07:15 Temperature Pulse Rate 92 H 91 H 91 H Pulse Rate [ Anterior Bilateral Throughout] Pulse Rate [ From Monitor] Pulse Rate [ Left Upper Lobe ] Respiratory 20 20 20 Rate Respiratory Rate [Abdomen] Respiratory Rate [Anterior Bilateral Throughout] Respiratory Rate [Left Upper Lobe] Blood Pressure 140/92 122/77 119/73 O2 Sat by Pulse 98 98 97 Oximetry O2 Sat by Pulse Oximetry [ Anterior Bilateral Throughout] 03/13/20 03/13/20 03/13/20 07:30 07:45 07:59 Temperature 98.3 F Pulse Rate 100 H 92 H 93 H Pulse Rate [ Anterior Bilateral Throughout] Pulse Rate [ From Monitor] Pulse Rate [ Left Upper Lobe ] Respiratory 19 19 Rate Respiratory Rate [Abdomen] Respiratory Rate [Anterior Bilateral Throughout] Respiratory Rate [Left Upper Lobe] Blood Pressure 137/88 137/85 137/88 O2 Sat by Pulse 97 98 100 Oximetry O2 Sat by Pulse 100 Oximetry [ Anterior Bilateral Throughout] 03/13/20 03/13/20 03/13/20 08:00 08:01 08:15 Temperature 98.4 F Pulse Rate 98 H 96 H 94 H Pulse Rate [ 91 H Anterior Bilateral Throughout] Pulse Rate [ 94 H From Monitor] Pulse Rate [ 88 Left Upper Lobe ] Respiratory 21 21 20 Rate Respiratory Rate [Abdomen] Respiratory 23 Rate [Anterior Bilateral Throughout] Respiratory 23 Rate [Left Upper Lobe] Blood Pressure 137/88 137/88 133/82 O2 Sat by Pulse 100 100 100 Oximetry O2 Sat by Pulse Oximetry [ Anterior Bilateral Throughout] 03/13/20 03/13/20 03/13/20 08:30 08:45 09:00 Temperature Pulse Rate 103 H 110 H 98 H Pulse Rate [ Anterior Bilateral Throughout] Pulse Rate [ From Monitor] Pulse Rate [ Left Upper Lobe ] Respiratory 20 23 20 Rate Respiratory Rate [Abdomen] Respiratory Rate [Anterior Bilateral Throughout] Respiratory Rate [Left Upper Lobe] Blood Pressure 135/91 145/88 140/79 O2 Sat by Pulse 100 98 100 Oximetry O2 Sat by Pulse Oximetry [ Anterior Bilateral Throughout] 03/13/20 03/13/20 03/13/20 09:15 09:30 09:39 Temperature Pulse Rate 97 H 100 H 104 H Pulse Rate [ Anterior Bilateral Throughout] Pulse Rate [ From Monitor] Pulse Rate [ Left Upper Lobe ] Respiratory 21 21 Rate Respiratory Rate [Abdomen] Respiratory Rate [Anterior Bilateral Throughout] Respiratory Rate [Left Upper Lobe] Blood Pressure 132/84 147/84 147/84 O2 Sat by Pulse 100 100 Oximetry O2 Sat by Pulse Oximetry [ Anterior Bilateral Throughout] 03/13/20 03/13/20 03/13/20 09:45 10:00 10:06 Temperature 98.4 F Pulse Rate 107 H 99 H 96 H Pulse Rate [ Anterior Bilateral Throughout] Pulse Rate [ From Monitor] Pulse Rate [ Left Upper Lobe ] Respiratory 23 21 20 Rate Respiratory 20 Rate [Abdomen] Respiratory Rate [Anterior Bilateral Throughout] Respiratory Rate [Left Upper Lobe] Blood Pressure 147/84 130/83 130/83 O2 Sat by Pulse 100 100 100 Oximetry O2 Sat by Pulse Oximetry [ Anterior Bilateral Throughout] 03/13/20 03/13/20 03/13/20 10:10 10:15 10:30 Temperature 98.4 F 98.0 F Pulse Rate 94 H 93 H 85 Pulse Rate [ Anterior Bilateral Throughout] Pulse Rate [ From Monitor] Pulse Rate [ Left Upper Lobe ] Respiratory 22 18 Rate Respiratory Rate [Abdomen] Respiratory Rate [Anterior Bilateral Throughout] Respiratory Rate [Left Upper Lobe] Blood Pressure 130/83 137/87 140/86 O2 Sat by Pulse 98 100 Oximetry O2 Sat by Pulse Oximetry [ Anterior Bilateral Throughout] 03/13/20 03/13/20 03/13/20 10:45 10:46 11:00 Temperature 98.0 F Pulse Rate 92 H 89 95 H Pulse Rate [ Anterior Bilateral Throughout] Pulse Rate [ From Monitor] Pulse Rate [ Left Upper Lobe ] Respiratory 18 20 Rate Respiratory Rate [Abdomen] Respiratory Rate [Anterior Bilateral Throughout] Respiratory Rate [Left Upper Lobe] Blood Pressure 142/95 142/95 154/98 O2 Sat by Pulse 100 100 Oximetry O2 Sat by Pulse Oximetry [ Anterior Bilateral Throughout] 03/13/20 03/13/20 03/13/20 11:15 11:19 11:30 Temperature 98.4 F Pulse Rate 96 H 99 H 92 H Pulse Rate [ Anterior Bilateral Throughout] Pulse Rate [ From Monitor] Pulse Rate [ Left Upper Lobe ] Respiratory 18 24 21 Rate Respiratory Rate [Abdomen] Respiratory Rate [Anterior Bilateral Throughout] Respiratory Rate [Left Upper Lobe] Blood Pressure 146/103 146/103 136/81 O2 Sat by Pulse 100 99 Oximetry O2 Sat by Pulse 100 Oximetry [ Anterior Bilateral Throughout] 03/13/20 03/13/20 03/13/20 11:45 12:00 12:15 Temperature 98.5 F Pulse Rate 92 H 98 H 97 H Pulse Rate [ Anterior Bilateral Throughout] Pulse Rate [ 97 H From Monitor] Pulse Rate [ Left Upper Lobe ] Respiratory 21 23 20 Rate Respiratory Rate [Abdomen] Respiratory Rate [Anterior Bilateral Throughout] Respiratory Rate [Left Upper Lobe] Blood Pressure 139/82 134/80 136/87 O2 Sat by Pulse 98 100 99 Oximetry O2 Sat by Pulse Oximetry [ Anterior Bilateral Throughout] 03/13/20 03/13/20 03/13/20 12:31 12:45 13:00 Temperature Pulse Rate 104 H 106 H 99 H Pulse Rate [ Anterior Bilateral Throughout] Pulse Rate [ From Monitor] Pulse Rate [ Left Upper Lobe ] Respiratory 27 H 18 25 H Rate Respiratory Rate [Abdomen] Respiratory Rate [Anterior Bilateral Throughout] Respiratory Rate [Left Upper Lobe] Blood Pressure 158/86 129/93 134/91 O2 Sat by Pulse 100 99 Oximetry O2 Sat by Pulse Oximetry [ Anterior Bilateral Throughout] 03/13/20 03/13/20 03/13/20 13:15 14:35 16:07 Temperature Pulse Rate 99 H 97 H Pulse Rate [ 100 H Anterior Bilateral Throughout] Pulse Rate [ From Monitor] Pulse Rate [ Left Upper Lobe ] Respiratory 26 H 24 Rate Respiratory Rate [Abdomen] Respiratory 23 Rate [Anterior Bilateral Throughout] Respiratory Rate [Left Upper Lobe] Blood Pressure 124/78 129/78 O2 Sat by Pulse 99 100 Oximetry O2 Sat by Pulse Oximetry [ Anterior Bilateral Throughout] - General Appearance General appearance: well-developed, well-nourished, intubated EENT: ATNC, other (ETT in place) Respiratory: Present: Clear to Ascultation Cardiology: regular, S1S2 Gastrointestinal: normal, no tenderness, no distended Integumentary: no rash, warm and dry Neurologic: alert and oriented x3 Musculoskeletal: other Psychiatric: cooperative - Lab 03/13/20 08:20 03/13/20 15:38 Most recent lab results ABG pH 7.462 (7.320-7.450) H 03/13/20 14:23 ABG pCO2 46.6 mm Hg 03/13/20 04:00 ABG pO2 83.2 mm Hg (80.0-90.0) 03/13/20 04:00 ABG HCO3 27.4 mmol/L (20.0-26.0) H 03/13/20 04:00 ABG O2 Saturation 96.8 % (95.0-99.0) 03/13/20 04:00 Calcium 9.0 mg/dL (8.4-10.2) 03/13/20 15:38 Phosphorus 6.10 mg/dL (2.5-4.5) H 03/01/20 04:37 Magnesium 2.00 mg/dL (1.7-2.3) 03/07/20 05:03 Urine Creatinine 161.0 mg/dL (0.1-20.0) H 02/25/20 22:55 Urine Total Protein 150 mg/dL (5-11.8) H 02/25/20 22:55 Medications & Allergies - Medications Allergies/Adverse Reactions: Allergies No Known Allergies Allergy (Unverified 09/05/19 10:15) Home Medications: Home Medications Medication Instructions Recorded Confirmed Last Taken Type Amlodipine Besylate [Norvasc] 10 mg PO DAILY 09/05/19 02/24/20 09/04/19 History Furosemide [Lasix] 20 mg PO QDAY #30 tablet 09/05/19 02/24/20 Unknown Rx Lisinopril [Zestril] 5 mg PO DAILY #30 tablet 09/05/19 02/24/20 Unknown Rx Metoprolol [Lopressor TAB] 25 mg PO BID #60 tablet 09/05/19 02/24/20 Unknown Rx Active Medications: Generic Name Dose Route Start Last Admin Trade Name Freq PRN Reason Stop Dose Admin Acetaminophen 650 mg 02/26/20 16:23 03/12/20 22:20 Tylenol PO 650 mg Q4H PRN Administration Pain, Mild (1-3)/ Temp >100. Albuterol 2.5 mg 02/27/20 17:55 Proventil IH Q4HRT PRN Shortness Of Breath Albuterol/Ipratropium 1 ampul 02/28/20 12:17 03/13/20 14:20 Duoneb *Not For Prn Use* IH 1 ampul Q6HRT INDU Administration Amlodipine Besylate 10 mg 02/28/20 10:00 03/13/20 09:39 Amlodipine PO 10 mg QDAY INDU Administration Lipase/Protease/Amylase 1 each 03/01/20 08:[address] 10,500 Unit FEEDTUBE PRN PRN For Clogged Feeding Tube Aspirin 325 mg 03/11/20 10:00 03/13/20 09:38 Ecotrin PO 325 mg QDAY INDU Administration Dextrose 50 ml 02/29/20 08:00 03/01/20 00:20 D50w (25gm) Syringe IV 10 ml Q30MIN PRN Administration HYPOGLYCEMIA Protocol Epoetin Prosper 10,000 unit 03/12/20 10:00 Procrit IV NIKOLAY PRN hemodialysis Fentanyl 50 mcg 03/11/20 06:01 Sublimaze IV Q10MIN PRN ANALGESIA Heparin Sodium (Porcine) 5,000 unit 03/11/20 14:00 03/13/20 06:42 Heparin SUB-Q 5,000 unit Q8HR INDU Administration Hydralazine HCl 25 mg 03/04/20 14:00 03/13/20 06:41 Apresoline PO 25 mg Q8HR INDU Administration Hydrophilic Ointment 1 applic 03/11/20 06:01 Vaseline Lip Therapy TP Q2HR PRN Dry Lips MEROPENEM/NS 1 GRAM/100 ML 1 gram in 100 mls @ 100 mls/hr 03/03/20 18:00 01/22 17:20 Merrem/Ns 1 Gram/100 Ml IV 100 mls/hr QPM INDU Administration Protocol Sodium Chloride 100 mls @ 999 mls/hr 03/08/20 17:05 Nacl 0.9% IV NIKOLAY PRN Hypotension Fentanyl Citrate 2,000 mcg in 100 mls @ 4.55 mls/hr 03/11/20 07:00 03/13/20 11:31 Fentanyl Drip Premix IV 0 mcg/kg/hr TITR NIDU 0 mls/hr Titration Protocol 1 MCG/KG/HR Labetalol HCl 10 mg 02/28/20 09:00 03/11/20 03:04 Labetalol IV 10 mg Q4H PRN Administration Hypertension Lansoprazole 30 mg 03/06/20 10:00 03/13/20 09:38 Prevacid Solutab FEEDTUBE 30 mg QDAY INDU Administration Lorazepam 1 mg 03/10/20 12:00 03/11/20 05:25 Ativan IV 1 mg Q4H PRN Administration AGITATION Metoprolol Tartrate 25 mg 02/28/20 10:00 03/13/20 09:39 Metoprolol PO 25 mg BID INDU Administration Morphine Sulfate 2 mg 03/11/20 05:13 Morphine IV Q4H PRN Pain, Moderate (4-6) Multi-Ingred Cream/Lotion/Oil/Oint 1 applic 03/11/20 06:01 Artificial Tears Ophth Oint OU Q4HR PRN Dry Eye(s) Nitroglycerin 0.4 mg 03/11/20 05:14 Nitrostat SL .Q5MIN PRN Chest Pain Ondansetron HCl 4 mg 02/24/20 06:45 02/25/20 23:33 Zofran IV 4 mg Q8H PRN Administration Nausea And Vomiting Quetiapine Fumarate 100 mg 03/06/20 10:00 03/13/20 09:39 Seroquel PO 100 mg QAM INDU Administration Quetiapine Fumarate 200 mg 03/06/20 22:00 03/12/20 22:19 Seroquel PO 200 mg QHS INDU Administration Scopolamine 1 each 03/04/20 16:00 03/13/20 09:39 Transderm-Scop TD 1 each Q3D INDU Administration Simple Syrup 15 ml 03/01/20 08:46 Simple Syrup FEEDTUBE PRN PRN Hypoglycemia Simple Syrup 30 ml 03/01/20 08:46 Simple Syrup FEEDTUBE PRN PRN Hypoglycemia Sodium Bicarbonate 325 mg 03/01/20 08:46 Sodium Bicarbonate FEEDTUBE PRN PRN For Clogged Feeding Tube Sodium Chloride 10 ml 02/24/20 10:00 03/13/20 09:40 Sodium Chloride Flush Syringe 10 Ml IV 10 ml BID INDU Administration Sodium Chloride 10 ml 02/24/20 06:45 03/10/20 09:06 Sodium Chloride Flush Syringe 10 Ml IV 10 ml PRN PRN Administration LINE FLUSH Tamsulosin HCl 0.4 mg 03/01/20 17:00 03/13/20 09:38 Flomax PO 0.4 mg QDAY INDU Administration
[2020-03-13] MEDS: MEROPENEM/NS 1 GRAM/100 ML 1 GRAM/100 ML BAG IV SCH (17:47)
[2020-03-13] MEDS: LORazepam 2 MG/ML VIAL IV PRN (18:48)
--- NOTE | 2020-03-13 20:25 | Gastroenterology Progress Note ---
Assessment and Plan (1) Acute pancreatitis - - unclear etiology for pancreatitis. 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 No bile duct dilation noted on imaging. H/o alcohol use. - multi-organ failure. - on HD. - CT noncontrast on 03/05 with worsening inflammation but no necrosis. - wbc trending down. - extubated on 03/10/2020 but reintubated for respiratory distress on 03/10/2020. - on CPAP trial today. Alert. - no clinical changes in terms of pancreatitis. Rec - cont with supportive care - nutrition via [place]. - may need MRCP at some point in the future but no need urgently. - ID on board. currently on meropenem. - once extubated and passes speech evaluation, can start oral nutrition. (2) Altered mental status - more alert today. Subjective Date of service: 03/13/20 Principal diagnosis: HTNsive urgency; Morbid obesity; Ac. pancreatitis; Abdominal pain Interval history: Patient remains intubated this morning. Alert. No abdominal pain. Objective - Constitutional Vitals: Temp Pulse Resp BP Pulse Ox 99.6 F 103 H 15 138/96 100 03/13/20 19:59 03/13/20 18:45 03/13/20 18:45 03/13/20 18:45 03/13/20 18:45 General appearance: no acute distress - EENT ENT: hearing intact - Respiratory Respiratory effort: normal - Cardiovascular Rhythm: regular Heart Sounds: Present: S1 & S2 - Gastrointestinal General gastrointestinal: Present: soft, non-tender, non-distended - Labs CBC & Chem 7: 03/13/20 08:20 03/13/20 15:38 Labs: Laboratory Results - last 24 hr 03/06/20 03/13/20 03/13/20 14:46 00:00 04:00 Hgb 6.6 L Hct 19.5 L* Plt Count 603 H ABG pH POC ABG pCO2 ABG pCO2 POC ABG pO2 ABG pO2 POC ABG HCO3 ABG HCO3 ABG O2 Saturation ABG O2 Content POC ABG Base Excess ABG Base Excess ABG Hemoglobin ABG Carboxyhemoglobin ABG Methemoglobin ABG Sodium ABG Potassium ABG Chloride ABG Glucose Oxyhemoglobin FiO2 Sodium Potassium Chloride Carbon Dioxide Anion Gap BUN Creatinine Estimated GFR BUN/Creatinine Ratio Glucose POC Glucose 105 Calcium Arterial Blood Glucose Arterial Blood Ionized Calcium Double Strand DNA Ab See scanned result Blood Type Antibody Screen Crossmatch 03/13/20 03/13/20 03/13/20 04:00 05:23 08:20 Hgb 7.0 L Hct 21.8 L Plt Count ABG pH 7.387 POC ABG pCO2 ABG pCO2 46.6 POC ABG pO2 ABG pO2 83.2 POC ABG HCO3 ABG HCO3 27.4 H ABG O2 Saturation 96.8 ABG O2 Content 11.7 POC ABG Base Excess ABG Base Excess 2.0 ABG Hemoglobin 8.7 L ABG Carboxyhemoglobin 1.8 ABG Methemoglobin 0.5 ABG Sodium ABG Potassium ABG Chloride ABG Glucose Oxyhemoglobin 94.6 L FiO2 30 Sodium Potassium Chloride Carbon Dioxide Anion Gap BUN Creatinine Estimated GFR BUN/Creatinine Ratio Glucose POC Glucose 90 Calcium Arterial Blood Glucose Arterial Blood Ionized Calcium Double Strand DNA Ab Blood Type Antibody Screen Crossmatch 03/13/20 03/13/20 03/13/20 08:45 14:23 15:38 Hgb Hct Plt Count ABG pH 7.462 H POC ABG pCO2 40.5 ABG pCO2 POC ABG pO2 75.1 L ABG pO2 POC ABG HCO3 28.3 ABG HCO3 ABG O2 Saturation ABG O2 Content POC ABG Base Excess 4.2 ABG Base Excess ABG Hemoglobin 8.9 L ABG Carboxyhemoglobin ABG Methemoglobin ABG Sodium 135.9 L ABG Potassium 3.8 ABG Chloride 98.0 ABG Glucose 89 Oxyhemoglobin FiO2 30.0 Sodium 139 Potassium 4.0 Chloride 94.2 L Carbon Dioxide 27 Anion Gap 22 BUN 32 H Creatinine 3.6 H Estimated GFR 17 BUN/Creatinine Ratio 9 Glucose 97 POC Glucose Calcium 9.0 Arterial Blood Glucose 89 Arterial Blood Ionized Calcium 4.5 L Double Strand DNA Ab Blood Type AB POSITIVE Antibody Screen Negative Crossmatch See Detail 03/13/20 18:02 Hgb Hct Plt Count ABG pH POC ABG pCO2 ABG pCO2 POC ABG pO2 ABG pO2 POC ABG HCO3 ABG HCO3 ABG O2 Saturation ABG O2 Content POC ABG Base Excess ABG Base Excess ABG Hemoglobin ABG Carboxyhemoglobin ABG Methemoglobin ABG Sodium ABG Potassium ABG Chloride ABG Glucose Oxyhemoglobin FiO2 Sodium Potassium Chloride Carbon Dioxide Anion Gap BUN Creatinine Estimated GFR BUN/Creatinine Ratio Glucose POC Glucose 89 Calcium Arterial Blood Glucose Arterial Blood Ionized Calcium Double Strand DNA Ab Blood Type Antibody Screen Crossmatch
[2020-03-13] MEDS: QUEtiapine 200 MG TAB PO SCH (21:54)
--- NOTE | 2020-03-14 01:52 | XRay Report ---
CHEST 1 VIEW INDICATION: follow up respiratory failure. COMPARISON: One day prior. FINDINGS: Support devices: Unchanged. Heart: Stable. Lungs/Pleura: No acute findings. Presumed retrocardiac left basilar atelectasis persists. IMPRESSION: 1. No significant change. Signer Name: Ed Maradiaga MD Signed: 03/14/2020 1:48 AM Workstation Name: [email or web address]
[2020-03-14] MEDS: fentaNYL DRIP Premix 2,000 MCG/100 ML BAG IV SCH (03:21)
[2020-03-14] MEDS: ACETAMINOPHEN 325 MG TAB PO PRN ×2 (03:23→22:03)
[2020-03-14] MEDS: hydrALAZINE 25 MG TAB PO SCH ×3 (05:36→21:57)
[2020-03-14] MEDS: HEPARIN 5,000 UNIT/1 ML VIAL SUB-Q SCH ×3 (05:37→21:57)
[2020-03-14] MEDS: IPRATROPIUM/ALBUTEROL SULFATE 3 ML AMPUL.NEB IH SCH ×4 (06:02→19:08)
[2020-03-14 06:28] LABS: Hematocrit 22.4 % (30.3-42.9); Hemoglobin 7.8 gm/dl (10.1-14.3)
[2020-03-14 06:48] LABS: Calcium 9.3 mg/dL (8.4-10.2)
--- NOTE | 2020-03-14 09:33 | Gastroenterology Progress Note ---
Assessment and Plan severe acute pancreatitis - prolonged hospital course, complicated by multi- organ failure. mentation appears improved compared to previous notes, denies abd pain and tolerating tube feeds. hopefully can be extubated soon, and transition to oral intake if passes speech eval. further management per primary/ICU, will follow. Subjective Date of service: 03/14/20 Principal diagnosis: HTNsive urgency; Morbid obesity; Ac. pancreatitis; Abdominal pain Interval history: pt intubated, sleeping/arousable and nods head appropriately to questions. to lerating tube feeds and denies abd pain Objective - Exam Narrative Exam: Gen: nad, intubated, arousable/nods head appropriately to questions CV: RRR Abd: mod dist, nt, hypoactive bs - Constitutional Vitals: Temp Pulse Resp BP Pulse Ox 100.6 F H 92 H 21 121/73 94 03/14/20 03:31 03/14/20 08:42 03/14/20 08:42 03/14/20 08:42 03/14/20 08:42 - Labs CBC & Chem 7: 03/14/20 06:15 03/14/20 06:15 Labs: Laboratory Results - last 24 hr 03/13/20 03/13/20 03/13/20 08:45 14:23 15:38 Hgb Hct ABG pH 7.462 H POC ABG pCO2 40.5 POC ABG pO2 75.1 L POC ABG HCO3 28.3 POC ABG Base Excess 4.2 ABG Hemoglobin 8.9 L ABG Sodium 135.9 L ABG Potassium 3.8 ABG Chloride 98.0 ABG Glucose 89 FiO2 30.0 Sodium 139 Potassium 4.0 Chloride 94.2 L Carbon Dioxide 27 Anion Gap 22 BUN 32 H Creatinine 3.6 H Estimated GFR 17 BUN/Creatinine Ratio 9 Glucose 97 POC Glucose Calcium 9.0 Arterial Blood Glucose 89 Arterial Blood Ionized Calcium 4.5 L Blood Type AB POSITIVE Antibody Screen Negative Crossmatch See Detail 03/13/20 03/13/20 03/14/20 18:02 23:18 05:10 Hgb Hct ABG pH POC ABG pCO2 POC ABG pO2 POC ABG HCO3 POC ABG Base Excess ABG Hemoglobin ABG Sodium ABG Potassium ABG Chloride ABG Glucose FiO2 Sodium Potassium Chloride Carbon Dioxide Anion Gap BUN Creatinine Estimated GFR BUN/Creatinine Ratio Glucose POC Glucose 89 93 90 Calcium Arterial Blood Glucose Arterial Blood Ionized Calcium Blood Type Antibody Screen Crossmatch 03/14/20 03/14/20 06:15 06:15 Hgb 7.8 L Hct 22.4 L ABG pH POC ABG pCO2 POC ABG pO2 POC ABG HCO3 POC ABG Base Excess ABG Hemoglobin ABG Sodium ABG Potassium ABG Chloride ABG Glucose FiO2 Sodium 138 Potassium 4.1 Chloride 93.1 L Carbon Dioxide 28 Anion Gap 21 BUN 45 H Creatinine 4.9 H Estimated GFR 12 BUN/Creatinine Ratio 9 Glucose 93 POC Glucose Calcium 9.3 Arterial Blood Glucose Arterial Blood Ionized Calcium Blood Type Antibody Screen Crossmatch
[2020-03-14] MEDS: amLODIPine 10 MG TAB PO SCH (09:38)
[2020-03-14] MEDS: METOPROLOL TARTRATE 25 MG TAB PO SCH ×2 (09:38→21:57)
[2020-03-14] MEDS: ASPIRIN EC 325 MG TAB PO SCH (09:38)
[2020-03-14] MEDS: LANSOPRAZOLE 30 MG SOLUTAB FEEDTUBE SCH (09:39)
[2020-03-14] MEDS: QUEtiapine 100 MG TAB PO SCH (09:44)
[2020-03-14] MEDS: TAMSULOSIN 0.4 MG CAP PO SCH (09:44)
--- NOTE | 2020-03-14 09:47 | Progress Note ---
Subjective Date of service: 03/14/20 Principal diagnosis: HTNsive urgency; Morbid obesity; Ac. pancreatitis; Abdominal pain Interval history: VENT Objective Vital Signs Temp Pulse Pulse Pulse Resp Resp Resp 03/14/20 09:38 94 H 03/14/20 08:42 92 H 21 03/14/20 08:15 90 16 03/14/20 08:00 91 H 88 15 03/14/20 07:45 91 H 16 03/14/20 07:30 90 15 03/14/20 07:15 88 16 03/14/20 07:00 90 17 03/14/20 06:45 92 H 15 03/14/20 06:30 97 H 15 03/14/20 06:15 99 H 18 03/14/20 06:00 104 H 28 H 03/14/20 05:45 97 H 17 03/14/20 05:36 96 H 03/14/20 05:30 96 H 15 03/14/20 05:15 95 H 16 03/14/20 05:00 96 H 18 03/14/20 04:45 96 H 18 03/14/20 04:30 92 H 21 03/14/20 04:15 98 H 16 03/14/20 04:00 99 H 89 18 03/14/20 03:45 101 H 19 03/14/20 03:31 100.6 F H 03/14/20 03:30 100 H 18 03/14/20 03:15 98 H 17 03/14/20 03:00 98 H 15 03/14/20 02:45 98 H 18 03/14/20 02:30 100 H 03/14/20 02:15 99 H 15 03/14/20 02:00 97 H 17 03/14/20 01:45 92 H 03/14/20 01:30 97 H 17 03/14/20 01:15 98 H 21 03/14/20 01:00 93 H 15 03/14/20 00:45 93 H 16 03/14/20 00:31 94 H 03/14/20 00:30 94 H 03/14/20 00:15 95 H 7 L 03/14/20 00:00 95 H 94 H 13 03/13/20 23:45 101 H 13 03/13/20 23:35 99.8 F H 10/09/20 23:30 93 H 15 03/13/20 23:15 94 H 19 03/13/20 23:03 95 H 18 03/13/20 23:00 97 H 13 03/13/20 22:45 95 H 21 03/13/20 22:30 94 H 16 03/13/20 22:15 97 H 14 03/13/20 22:00 99 H 13 03/13/20 21:54 97 H 03/13/20 21:45 97 H 14 03/13/20 21:30 98 H 14 03/13/20 21:27 98 H 20 03/13/20 21:21 98 H 03/13/20 21:15 100 H 17 03/13/20 21:00 98 H 19 03/13/20 20:45 94 H 18 03/13/20 20:30 94 H 17 03/13/20 20:15 96 H 17 03/13/20 20:00 98 H 95 H 16 03/13/20 19:59 99.6 F 03/13/20 19:45 97 H 16 03/13/20 19:30 99 H 17 03/13/20 19:15 102 H 22 03/13/20 19:00 100 H 19 03/13/20 18:45 103 H 15 03/13/20 18:30 98 H 19 03/13/20 18:15 114 H 27 H 03/13/20 18:00 100 H 17 03/13/20 17:45 106 H 16 03/13/20 17:30 99 H 13 03/13/20 17:15 119 H 24 03/13/20 17:00 101 H 16 03/13/20 16:45 103 H 19 03/13/20 16:30 115 H 17 03/13/20 16:15 100 H 20 03/13/20 16:07 97 H 24 03/13/20 16:00 97.4 F L 99 H 97 H 24 03/13/20 15:45 99 H 24 03/13/20 15:30 103 H 25 H 03/13/20 15:15 108 H 22 03/13/20 15:01 98 H 27 H 03/13/20 14:48 102 H 03/13/20 14:45 97 H 26 H 03/13/20 14:35 100 H 23 03/13/20 14:30 99 H 26 H 03/13/20 14:15 103 H 26 H 03/13/20 14:01 102 H 29 H 03/13/20 13:45 99 H 26 H 03/13/20 13:30 96 H 24 03/13/20 13:15 99 H 26 H 03/13/20 13:00 99 H 25 H 03/13/20 12:45 106 H 18 03/13/20 12:31 104 H 27 H 03/13/20 12:15 97 H 20 03/13/20 12:00 98.5 F 107 H 97 H 23 03/13/20 11:45 92 H 21 03/13/20 11:30 92 H 21 03/13/20 11:19 98.4 F 99 H 24 03/13/20 11:15 96 H 18 03/13/20 11:00 95 H 20 03/13/20 10:46 89 03/13/20 10:45 98.0 F 92 H 18 03/13/20 10:30 98.0 F 85 18 03/13/20 10:15 98.4 F 93 H 22 03/13/20 10:10 94 H 03/13/20 10:06 98.4 F 96 H 20 03/13/20 10:00 99 H 21 20 BP Pulse Ox Pulse Ox 03/14/20 09:38 111/68 03/14/20 08:42 121/73 94 03/14/20 08:15 108/57 96 03/14/20 08:00 108/63 96 03/14/20 07:45 104/56 96 03/14/20 07:30 103/59 96 03/14/20 07:15 108/61 98 03/14/20 07:00 117/67 96 03/14/20 06:45 112/71 96 03/14/20 06:30 129/83 97 03/14/20 06:15 117/70 96 03/14/20 06:00 129/78 100 03/14/20 05:45 131/87 100 03/14/20 05:36 125/74 03/14/20 05:30 125/74 100 03/14/20 05:15 121/75 100 03/14/20 05:00 121/76 100 03/14/20 04:45 115/79 100 03/14/20 04:30 120/71 100 03/14/20 04:15 113/76 97 03/14/20 04:00 112/74 97 03/14/20 03:45 121/79 98 03/14/20 03:31 03/14/20 03:30 114/75 97 03/14/20 03:15 129/79 99 03/14/20 03:00 119/69 99 03/14/20 02:45 117/68 99 03/14/20 02:30 116/70 99 03/14/20 02:15 112/69 100 03/14/20 02:00 111/68 100 03/14/20 01:45 111/71 100 03/14/20 01:30 117/68 100 03/14/20 01:15 129/82 99 03/14/20 01:00 117/68 100 03/14/20 00:45 113/65 100 03/14/20 00:31 113/65 100 03/14/20 00:30 113/65 99 03/14/20 00:15 117/66 97 03/14/20 00:00 120/74 97 03/13/20 23:45 133/95 95 03/13/20 23:35 03/13/20 23:30 118/69 98 03/13/20 23:15 110/71 98 03/13/20 23:03 113/70 97 03/13/20 23:00 113/70 96 03/13/20 22:45 105/74 99 03/13/20 22:30 117/73 96 03/13/20 22:15 145/95 97 03/13/20 22:00 127/75 97 03/13/20 21:54 120/77 03/13/20 21:45 120/77 97 03/13/20 21:30 117/77 97 03/13/20 21:27 03/13/20 21:21 132/89 99 03/13/20 21:15 132/89 97 03/13/20 21:00 128/77 98 03/13/20 20:45 130/86 100 03/13/20 20:30 145/96 99 03/13/20 20:15 124/78 99 03/13/20 20:00 124/85 99 03/13/20 19:59 03/13/20 19:45 133/87 99 03/13/20 19:30 126/96 98 03/13/20 19:15 137/92 99 03/13/20 19:00 134/88 98 03/13/20 18:45 138/96 100 03/13/20 18:30 128/77 99 03/13/20 18:15 163/97 100 03/13/20 18:00 134/88 100 03/13/20 17:45 156/102 98 03/13/20 17:30 143/97 97 03/13/20 17:15 139/93 99 03/13/20 17:00 139/93 100 03/13/20 16:45 141/98 100 03/13/20 16:30 138/102 99 03/13/20 16:15 128/92 100 03/13/20 16:07 129/78 100 03/13/20 16:00 129/78 100 03/13/20 15:45 124/73 100 03/13/20 15:30 119/80 100 03/13/20 15:15 131/89 100 03/13/20 15:01 131/89 99 03/13/20 14:48 141/98 03/13/20 14:45 131/89 99 03/13/20 14:35 03/13/20 14:30 131/89 97 03/13/20 14:15 142/91 100 03/13/20 14:01 142/91 99 03/13/20 13:45 127/90 100 03/13/20 13:30 124/69 99 03/13/20 13:15 124/78 99 03/13/20 13:00 134/91 99 03/13/20 12:45 129/93 03/13/20 12:31 158/86 100 03/13/20 12:15 136/87 99 03/13/20 12:00 134/80 100 03/13/20 11:45 139/82 98 03/13/20 11:30 136/81 99 03/13/20 11:19 146/103 100 03/13/20 11:15 146/103 100 03/13/20 11:00 154/98 100 03/13/20 10:46 142/95 03/13/20 10:45 142/95 100 03/13/20 10:30 140/86 100 03/13/20 10:15 137/87 98 03/13/20 10:10 130/83 03/13/20 10:06 130/83 100 03/13/20 10:00 130/83 100 - Physical Examination General: Other (intubated on the vent) Cardiac: Positive: Regular Rate Lungs: Positive: clear to auscultation - Labs and Meds CBC 03/14/20 Range/Units 06:15 Hgb 7.8 L (10.1-14.3) gm/dl Hct 22.4 L (30.3-42.9) % Comprehensive Metabolic Panel 03/13/20 03/14/20 Range/Units 15:38 06:15 Sodium 139 138 (137-145) mmol/L Potassium 4.0 4.1 (3.6-5.0) mmol/L Chloride 94.2 L 93.1 L (98-107) mmol/L Carbon Dioxide 27 28 (22-30) mmol/L BUN 32 H 45 H (7-17) mg/dL Creatinine 3.6 H 4.9 H (0.6-1.2) mg/dL Glucose 97 93 (65-100) mg/dL Calcium 9.0 9.3 (8.4-10.2) mg/dL - Allied health notes Allied health notes reviewed: nursing
--- NOTE | 2020-03-14 11:00 | Progress Note ---
Assessment and Plan Assessment and plan: --Anemia; hemoglobin 6.6 -7.8 No external evidence of bleeding Total 3 units of PRBC transfusion GI following, monitor H&H transfuse additional PRBC as needed --JUANIS/worsening renal function Initiated hemodialysis 03/03/2020. Hemodialysis per schedule nephrology following --Ac.hypoxic resp. failure /reintubated [03/11/20] Due to acute hypoxic respiratory failure early this morning continue ventilatory support, pulmonary critical following Wean as tolerated and extubate --Acute hypoxic resp failure; intubated 02/29/20/extubated 03/10/20 Reintubated on 03/11/2020 --Chest pain/positive troponins;NSTEMI 2 Probably nonspecific , patient has acute kidney injury on dialysis continue current med management, follow serial cardiac enzymes, follow cardiology evaluation and recommendation EF 60-65% on ECHO --Severe sepsis secondary to pneumonia and pancreatitis; Worsening bibasilar opacities on chest x-ray leukocytosis, tachycardia, tachypnea, fever, infiltrate on chest x-ray. Continue meropenem, follow cultures, ID following. --Persistent fevers; T-max 100.6 today Probably secondary sepsis due to acute pancreatitis Patient is on meropenem, Cultures negative to date -- Acute severe pancreatitis Initial non-contrasted CT showed no evidence of necrosis or pseudocyst or abscess formation. Repeat CT 03/05 with interval worsening of acute pancreatitis without clear evidence of necrosis with increased jessica-pancreatic fat stranding and disorganized fluid, , GI following -- Bilateral pleural effusions. Etiology secondary to above Compressive atelectasis --Severe metabolic encephalopathy Patient is more alert and awake sometimes agitated and confused --Alcohol withdrawal On CIWA protocol --Worsening leukocytosis Secondary to sepsis due to bibasilar pneumonia, acute pancreatitis, ID and GI following -- Hypertensive emergency POA s/p Cardene drip, closely monitor Blood pressures uncontrolled IV labetalol, PRN --Severe metabolic acidosis; Management per nephrology --Severe protein calorie malnutrition and hypoalbuminemia Nutrition supplements, nutrition consult and supportive care --Medical noncompliance Patient was counseled upon admission. -- DVT prophylaxis Patient placed on subcutaneous heparin. --Obesity; BMI 37.9 patient needs weight reduction when medically stable. -- Full code status Follow GI and pulmonary evaluation and recommendations We will closely monitor the patient and adjust the management as needed Restraints for agitation The high probability of a clinically significant, sudden or life threatening deterioration of the [GI, CVS, renal, respiratory and metabolic] system(s) required my full and direct attention, intervention and personal management. The aggregate critical care time was [32] minutes. This time is in addition to time spent performing reported procedures but includes the following: [x] Data Review and interpretation [x] Patient assessment and monitoring of vital signs [x] Documentation [x] Medication orders and management History Interval history: Patient remains intubated on ventilatory support Patient's hemoglobin slightly improved to 7.8 posttransfusion Vital signs noted Hospitalist Physical - Constitutional Vitals: Temp Pulse Resp BP Pulse Ox 100.6 F H 82 20 99/57 97 03/14/20 03:31 03/14/20 10:15 03/14/20 10:15 03/14/20 10:15 03/14/20 10:15 General appearance: Present: no acute distress, well-nourished, obese, other (Intubated) - EENT Eyes: Present: PERRL, EOM intact - Neck Neck: Present: supple, normal ROM - Respiratory Respiratory effort: normal Respiratory: bilateral: diminished, rales, negative: rhonchi, wheezing - Cardiovascular Rhythm: regular Heart Sounds: Present: S1 & S2 - Extremities Extremities: no ischemia, No edema - Abdominal General gastrointestinal: soft, non-tender, non-distended, normal bowel sounds - Integumentary Integumentary: Present: clear, warm - Psychiatric Psychiatric: other (Intubated on mechanical ventilation) - Neurologic Neurologic: other (Intubated on mechanical ventilation) HEART Score - HEART Score Troponin: Troponin T 0.085 ng/mL (0.00-0.029) H 03/11/20 14:31 Results - Labs CBC & Chem 7: 03/14/20 Unknown 03/14/20 06:15 Labs: Laboratory Last Values WBC 22.4 K/mm3 (4.5-11.0) H 03/11/20 04:32 RBC 3.32 M/mm3 (3.65-5.03) L 03/11/20 04:32 Hgb 7.8 gm/dl (10.1-14.3) L 03/14/20 06:15 Hct 22.4 % (30.3-42.9) L 03/14/20 06:15 MCV 75 fl (79-97) L 03/11/20 04:32 MCH 24 pg (28-32) L 03/11/20 04:32 MCHC 31 % (30-34) 03/11/20 04:32 RDW 21.4 % (13.2-15.2) H 03/11/20 04:32 Plt Count 603 K/mm3 (140-440) H 03/13/20 04:00 Lymph % (Auto) 9.2 % (13.4-35.0) L 03/10/20 04:37 [place] % (Auto) 9.9 % (0.0-7.3) H 03/10/20 04:37 Eos % (Auto) 1.3 % (0.0-4.3) 03/10/20 04:37 Baso % (Auto) 0.4 % (0.0-1.8) 03/10/20 04:37 Lymph # (Auto) 1.5 K/mm3 (1.2-5.4) 03/10/20 04:37 [place] # (Auto) 1.6 K/mm3 (0.0-0.8) H 03/10/20 04:37 Eos # (Auto) 0.2 K/mm3 (0.0-0.4) 03/10/20 04:37 Baso # (Auto) 0.1 K/mm3 (0.0-0.1) 03/10/20 04:37 Add Manual Diff Complete 03/11/20 04:32 Total Counted 100 03/11/20 04:32 Seg Neutrophils % 79.2 % (40.0-70.0) H 03/10/20 04:37 Seg Neuts % (Manual) 81.0 % (40.0-70.0) H 03/11/20 04:32 Band Neutrophils % 1.0 % 03/11/20 04:32 Lymphocytes % (Manual) 8.0 % (13.4-35.0) L 03/11/20 04:32 Reactive Lymphs % (Man) 0 % 03/11/20 04:32 Monocytes % (Manual) 8.0 % (0.0-7.3) H 03/11/20 04:32 Eosinophils % (Manual) 1.0 % (0.0-4.3) 03/11/20 04:32 Basophils % (Manual) 1.0 % (0.0-1.8) 03/11/20 04:32 Metamyelocytes % 0 % 03/11/20 04:32 Myelocytes % 0 % 03/11/20 04:32 Promyelocytes % 0 % 03/11/20 04:32 Blast Cells % 0 % 03/11/20 04:32 Nucleated RBC % Not Reportable 03/11/20 04:32 Seg Neutrophils # 12.6 K/mm3 (1.8-7.7) H 03/10/20 04:37 Seg Neutrophils # Man 18.1 K/mm3 (1.8-7.7) H 03/11/20 04:32 Band Neutrophils # 0.2 K/mm3 03/11/20 04:32 Lymphocytes # (Manual) 1.8 K/mm3 (1.2-5.4) 03/11/20 04:32 Abs React Lymphs (Man) 0.0 K/mm3 03/11/20 04:32 Monocytes # (Manual) 1.8 K/mm3 (0.0-0.8) H 03/11/20 04:32 Eosinophils # (Manual) 0.2 K/mm3 (0.0-0.4) 03/11/20 04:32 Basophils # (Manual) 0.2 K/mm3 (0.0-0.1) H 03/11/20 04:32 Metamyelocytes # 0.0 K/mm3 03/11/20 04:32 Myelocytes # 0.0 K/mm3 03/11/20 04:32 Promyelocytes # 0.0 K/mm3 03/11/20 04:32 Blast Cells # 0.0 K/mm3 03/11/20 04:32 WBC Morphology Not Reportable 03/11/20 04:32 Hypersegmented Neuts Not Reportable 03/11/20 04:32 Hyposegmented Neuts Not Reportable 03/11/20 04:32 Hypogranular Neuts Not Reportable 03/11/20 04:32 Smudge Cells Not Reportable 03/11/20 04:32 Toxic Granulation Not Reportable 03/11/20 04:32 Toxic Vacuolation Not Reportable 03/11/20 04:32 Dohle Bodies Not Reportable 03/11/20 04:32 Pelger-Huet Anomaly Not Reportable 03/11/20 04:32 Maia Rods Not Reportable 03/11/20 04:32 Platelet Estimate Consistent w auto 03/11/20 04:32 Clumped Platelets Not Reportable 03/11/20 04:32 Plt Clumps, EDTA Not Reportable 03/11/20 04:32 Large Platelets Not Reportable 03/11/20 04:32 Giant Platelets Not Reportable 03/11/20 04:32 Platelet Satelliting Not Reportable 03/11/20 04:32 Plt Morphology Comment Not Reportable 03/11/20 04:32 RBC Morphology Not Reportable 03/11/20 04:32 Dimorphic RBCs Not Reportable 03/11/20 04:32 Polychromasia Not Reportable 03/11/20 04:32 Hypochromasia 1+ 03/11/20 04:32 Poikilocytosis Not Reportable 03/11/20 04:32 Anisocytosis 1+ 03/11/20 04:32 Microcytosis Not Reportable 03/11/20 04:32 Macrocytosis Not Reportable 03/11/20 04:32 Spherocytes Not Reportable 03/11/20 04:32 Pappenheimer Bodies Not Reportable 03/11/20 04:32 Sickle Cells Not Reportable 03/11/20 04:32 Target Cells Not Reportable 03/11/20 04:32 Tear Drop Cells Rare 03/11/20 04:32 Ovalocytes Few 03/11/20 04:32 Helmet Cells Not Reportable 03/11/20 04:32 Jackson-Gaines Bodies Not Reportable 03/11/20 04:32 [place] Rings Not Reportable 03/11/20 04:32 Mirna Cells Not Reportable 03/11/20 04:32 Bite Cells Not Reportable 03/11/20 04:32 Crenated Cell Not Reportable 03/11/20 04:32 Elliptocytes Not Reportable 03/11/20 04:32 Acanthocytes (Spur) Not Reportable 03/11/20 04:32 Rouleaux Not Reportable 03/11/20 04:32 Hemoglobin C Crystals Not Reportable 03/11/20 04:32 Schistocytes Not Reportable 03/11/20 04:32 Malaria parasites Not Reportable 03/11/20 04:32 Edgardo Bodies Not Reportable 03/11/20 04:32 Hem Pathologist Commnt No 03/11/20 04:32 PT 14.1 Sec. (12.2-14.9) 03/11/20 07:31 INR 1.07 (0.87-1.13) 03/11/20 07:31 APTT 32.0 Sec. (24.2-36.6) 03/11/20 07:31 ABG pH 7.462 (7.320-7.450) H 03/13/20 14:23 POC ABG pCO2 40.5 mmHg (32.0-48.0) 03/13/20 14:23 ABG pCO2 46.6 mm Hg 03/13/20 04:00 POC ABG pO2 75.1 mmHg (83-108) L 03/13/20 14:23 ABG pO2 83.2 mm Hg (80.0-90.0) 03/13/20 04:00 POC ABG HCO3 28.3 03/13/20 14:23 ABG HCO3 27.4 mmol/L (20.0-26.0) H 03/13/20 04:00 ABG O2 Saturation 96.8 % (95.0-99.0) 03/13/20 04:00 ABG O2 Content 11.7 (0.0-44) 03/13/20 04:00 POC ABG Base Excess 4.2 03/13/20 14:23 ABG Base Excess 2.0 mmol/L (-2.0-3.0) 03/13/20 04:00 ABG Hemoglobin 8.9 (12.0-17.5) L 03/13/20 14:23 ABG Oxyhemoglobin 90.5 (94-98) L 03/06/20 04:41 ABG Carboxyhemoglobin 1.8 % (0.0-5.0) 03/13/20 04:00 ABG Methemoglobin 0.5 % (0.0-1.5) 03/13/20 04:00 ABG Sodium 135.9 mmol/L (136.0-145.0) L 03/13/20 14:23 ABG Potassium 3.8 mmol/L (3.40-4.50) 03/13/20 14:23 ABG Chloride 98.0 mmol/L (98-107) 03/13/20 14:23 ABG Glucose 89 mg/dL (65-95) 03/13/20 14:23 Oxyhemoglobin 94.6 % (95.0-99.0) L 03/13/20 04:00 Carboxyhemoglobin 1 (0.5-1.5) 03/06/20 04:41 FiO2 30.0 03/13/20 14:23 Sodium 138 mmol/L (137-145) 03/14/20 06:15 Potassium 4.1 mmol/L (3.6-5.0) 03/14/20 06:15 Chloride 93.1 mmol/L (98-107) L 03/14/20 06:15 Carbon Dioxide 28 mmol/L (22-30) 03/14/20 06:15 Anion Gap 21 mmol/L 03/14/20 06:15 BUN 45 mg/dL (7-17) H 03/14/20 06:15 Creatinine 4.9 mg/dL (0.6-1.2) H 03/14/20 06:15 Estimated GFR 12 ml/min 03/14/20 06:15 BUN/Creatinine Ratio 9 % 03/14/20 06:15 Glucose 93 mg/dL (65-100) 03/14/20 06:15 POC Glucose 90 (70-105) 03/14/20 05:10 Lactic Acid 0.90 mmol/L (0.7-2.0) 02/27/20 19:33 Calcium 9.3 mg/dL (8.4-10.2) 03/14/20 06:15 Phosphorus 6.10 mg/dL (2.5-4.5) H 03/01/20 04:37 Magnesium 2.00 mg/dL (1.7-2.3) 03/07/20 05:03 Total Bilirubin 0.30 mg/dL (0.1-1.2) 03/11/20 04:32 Direct Bilirubin 0.6 mg/dL (0-0.2) H 03/05/20 06:00 Indirect Bilirubin 0.3 mg/dL 03/05/20 06:00 AST 41 units/L (5-40) H 03/11/20 04:32 ALT 17 units/L (7-56) 03/11/20 04:32 Alkaline Phosphatase 103 units/L (35-129) 03/11/20 04:32 Troponin T 0.085 ng/mL (0.00-0.029) H 03/11/20 14:31 C-Reactive Protein 36.50 mg/dL (0.00-1.30) H 03/01/20 11:06 Serum Total Protein 6.3 g/dL (6.1-8.1) 02/26/20 04:39 Total Protein 7.8 g/dL (6.3-8.2) 03/11/20 04:32 Albumin 2.7 g/dL (3.9-5) L 03/11/20 04:32 Albumin/Globulin Ratio 0.5 % 03/11/20 04:32 Nqtyx-9-Pdvzebuza 0.7 g/dL (0.2-0.3) H 02/26/20 04:39 Hwxiw-3-Utuqrumwf 0.8 g/dL (0.5-0.9) 02/26/20 04:39 Beta Globulins 0.4 g/dL (0.2-0.5) 02/26/20 04:39 Gamma Globulins 1.2 g/dL (0.8-1.7) 02/26/20 04:39 Abnorm Protein Band 1 see below 02/26/20 04:39 PEP Interpretation see below H 02/26/20 04:39 Triglycerides 247 mg/dL (2-149) H 03/11/20 14:31 Cholesterol 158 mg/dL (50-199) 03/11/20 14:31 LDL Cholesterol Direct 80 mg/dL (50-130) 03/11/20 14:31 HDL Cholesterol 28 mg/dL (40-59) L 03/11/20 14:31 Cholesterol/HDL Ratio 5.64 % 03/11/20 14:31 Lipase 72 units/L (13-60) H 03/04/20 19:00 HCG, Qual Negative (Negative) 02/24/20 02:53 PTH Intact 911.3 pg/mL (15-65) H 02/26/20 08:15 Arterial Blood Glucose 89 mg/dL (65-95) 03/13/20 14:23 Arterial Blood Ionized Calcium 4.5 mg/dL (4.6-5.3) L 03/13/20 14:23 Urine Color Yellow (Yellow) 02/24/20 Unknown Urine Turbidity Clear (Clear) 02/24/20 Unknown Urine pH 6.0 (5.0-7.0) 02/24/20 Unknown Ur Specific [place] 1.020 (1.003-1.030) 02/24/20 Unknown Urine Protein >500 mg/dL (Negative) 02/24/20 Unknown Urine Glucose (UA) 50 mg/dL (Negative) 02/24/20 Unknown Urine Ketones Neg mg/dL (Negative) 02/24/20 Unknown Urine Blood Lg (Negative) 02/24/20 Unknown Urine Nitrite Neg (Negative) 02/24/20 Unknown Urine Bilirubin Neg (Negative) 02/24/20 Unknown Urine Urobilinogen < 2.0 mg/dL (<2.0) 02/24/20 Unknown Ur Leukocyte Esterase Neg (Negative) 02/24/20 Unknown Urine WBC (Auto) 11.0 /HPF (0.0-6.0) H 02/24/20 Unknown Urine RBC (Auto) 149.0 /HPF (0.0-6.0) 02/24/20 Unknown U Epithel Cells (Auto) 5.0 /HPF (0-13.0) 02/24/20 Unknown Urine Bacteria (Auto) 1+ /HPF (Negative) 02/24/20 Unknown Urine Mucus Few /HPF 02/24/20 Unknown Urine Creatinine 161.0 mg/dL (0.1-20.0) H 02/25/20 22:55 Protein/Creatinin Ratio 0.93 02/25/20 22:55 Urine Total Protein 150 mg/dL (5-11.8) H 02/25/20 22:55 ZINA Screen Positive (Negative) H 02/26/20 04:39 Proteinase 3 (PR3) Ab <1.0 AI (<1.0) 02/26/20 04:39 Myeloperoxidase Ab <1.0 AI (<1.0) 02/26/20 04:39 Double Strand DNA Ab See scanned result 03/06/20 14:46 Complement C3 153 mg/dL (83-193) 02/26/20 04:39 Complement C4 35 mg/dL (15-57) 02/26/20 04:39 Coronavirus (PCR) Negative (Negative) 03/09/20 09:12 Hepatitis A IgM Ab Non-reactive (NonReactive) 03/03/20 12:34 Hep Bs Antigen Non-reactive (Negative) 03/03/20 12:34 Hep B Core IgM Ab Non-reactive (NonReactive) 03/03/20 12:34 Hepatitis C Antibody Non-reactive (NonReactive) 03/03/20 12:34 Blood Type AB POSITIVE 03/13/20 08:45 Antibody Screen Negative 03/13/20 08:45 Crossmatch See Detail 03/13/20 08:45 Microbiology: Microbiology 03/11/20 09:25 Tracheal Aspirate Sputum Culture - Final - Diagnostic Impressions Diagnostic Impressions: Echocardiogram 02/26/20 09:11 Transthoracic Echocardiogram Indication: Cardiomegaly BP: 149/92 HR: 122 Conclusions *Global left ventricular systolic function is normal. *The estimated ejection fraction is 60-65%. *Moderate to severe concentric left ventricular hypertrophy is observed. *The left atrium is mild to moderately dilated. *The aortic valve leaflets are moderately thickened. *A mean gradient of 22.39 mmHg across the outflow tract is likely not due to but hyperdynamic flow and LVH. *There is trace tricuspid regurgitation. Findings Left Ventricle: The left ventricular chamber size is normal. Moderate to severe concentric left ventricular hypertrophy is observed. Global left ventricular systolic function is normal. The estimated ejection fraction is 60-65%. Left Atrium: The left atrium is mild to moderately dilated. Right Ventricle: The right ventricular cavity size is normal. The right ventricular global systolic function is normal. Right Atrium: The right atrial cavity size is normal. Aortic Valve: The aortic valve leaflets are moderately thickened. There is no evidence of aortic regurgitation. The mean gradient of the aortic valve is 22.39 mmHg. Mitral Valve: The mitral valve leaflets are mildly thickened. There is trace of mitral regurgitation. There is no evidence of mitral stenosis. Tricuspid Valve: There is trace tricuspid regurgitation. No pulmonary hypertension is noted. Pulmonic Valve: There is trace pulmonic regurgitation. Pericardium: There is no pericardial effusion. Aorta: There is no dilatation of the ascending aorta. There is no dilatation of the aortic root. Venous: The inferior vena cava appears normal in size. Measurements Chambers 2D Name Value Normal Range IVSd (2D) 1.8 cm (0.6 - 1.1) LVPWd (2D) 1.74 cm (0.6 - 1.1) LVIDd (2D) 4.57 cm (3.7 - 5.6) LVIDs (2D) 2.73 cm (2 - 3.8) LV FS (2D) 40.27 % - EF Teichholz (2D) 71.04 % - Ao root diameter (2D) 2.79 cm (2 - 3.7) Volumes/Mass Name Value Normal Range LA ESV SP 4CH (A/L) 54.18 ml - LA ESV SP 2CH (A/L) 61.84 ml - LA ESV BP (A/L) 58.1 ml - LA ESV BP (A/L) index 30.74 ml/m2 - LA ESV SP 4CH (MOD) 52.89 ml - LA ESV SP 2CH (MOD) 60.65 ml - LA ESV BP (MOD) 56.77 ml - LA ESV BP (MOD) index 30.04 ml/m2 - LV EDV SP 4CH (MOD) 164.2 ml - LV ESV SP 4CH (MOD) 58.04 ml - EF SP 4CH (MOD) 64.65 % - Diastolic/Systolic Function Name Value Normal Range MV E-wave Vmax 1.38 m/sec - MV deceleration time 92.78 msec - MV A-wave Vmax 1.44 m/sec - MV E:A ratio 0.95 ratio - Aortic Valve Name Value Normal Range AV Vmax 3.08 m/sec - AV VTI 36.74 cm - AV peak gradient 37.98 mmHg - AV mean gradient 22.39 mmHg - LVOT diameter 2.01 cm - LVOT Vmax 2.45 m/sec - LVOT VTI 29.85 cm - LVOT peak gradient 24.04 mmHg - LVOT mean gradient 11.11 mmHg - SV LVOT 94.73 ml - JADA (continuity Vmax) 2.52 cm2 - JADA (continuity VTI) 2.58 cm2 - Ascending Ao 2.64 cm - Mitral Valve Name Value Normal Range MV PHT 37.88 msec - MVA (PHT) 5.81 cm2 - Tricuspid Valve Name Value Normal Range IVC diameter 1.93 cm (1.2 - 2.3) Pulmonic Valve/Qp:Qs Name Value Normal Range PV Vmax 2.83 m/sec - PV VTI 45.88 cm - PV peak gradient 32.06 mmHg - PV mean gradient 16.11 mmHg - OR end-diastolic Vmax 0.81 m/sec - RVOT Vmax 1.82 m/sec - RVOT VTI 25.12 cm - RVOT peak gradient 13.3 mmHg - Franks/IV: Voiding Method Incontinent IV Catheter Type [Right VAS Cath Internal Jugular] IV Catheter Type [Left Upper INT / Saline Lock arm] IV Catheter Type [Right Upper INT / Saline Lock arm] IV Catheter Type [Right INT / Saline Lock Forearm] IV Catheter Type [Right Wrist] Peripheral IV IV Catheter Type [Right Peripheral IV Antecubital] Active Medications - Current Medications Current Medications: Generic Name Dose Route Start Last Admin Trade Name Freq PRN Reason Stop Dose Admin Acetaminophen 650 mg 02/26/20 16:23 03/14/20 03:23 Tylenol PO 650 mg Q4H PRN Administration Pain, Mild (1-3)/ Temp >100. Albuterol 2.5 mg 02/27/20 17:55 Proventil IH Q4HRT PRN Shortness Of Breath Albuterol/Ipratropium 1 ampul 02/28/20 12:17 03/14/20 08:42 Duoneb *Not For Prn Use* IH 1 ampul Q6HRT INDU Administration Amlodipine Besylate 10 mg 02/28/20 10:00 03/14/20 09:38 Amlodipine PO 10 mg QDAY INDU Administration Lipase/Protease/Amylase 1 each 03/01/20 08:46 Pancreaze 10,500 Unit FEEDTUBE PRN PRN For Clogged Feeding Tube Aspirin 325 mg 03/11/20 10:00 03/14/20 09:38 Ecotrin PO 325 mg QDAY INDU Administration Dextrose 50 ml 02/29/20 08:00 03/01/20 00:20 D50w (25gm) Syringe IV 10 ml Q30MIN PRN Administration HYPOGLYCEMIA Protocol Epoetin Prosper 10,000 unit 03/12/20 10:00 Procrit IV NIKOLAY PRN hemodialysis Fentanyl 50 mcg 03/11/20 06:01 Sublimaze IV Q10MIN PRN ANALGESIA Heparin Sodium (Porcine) 5,000 unit 03/11/20 14:00 03/14/20 05:37 Heparin SUB-Q 5,000 unit Q8HR INDU Administration Hydralazine HCl 25 mg 03/04/20 14:00 03/14/20 05:36 Apresoline PO 25 mg Q8HR INDU Administration Hydrophilic Ointment 1 applic 03/11/20 06:01 Vaseline Lip Therapy TP Q2HR PRN Dry Lips MEROPENEM/NS 1 GRAM/100 ML 1 gram in 100 mls @ 100 mls/hr 03/03/20 18:00 03/13/20 17:47 Merrem/Ns 1 Gram/100 Ml IV 100 mls/hr QPM INDU Administration Protocol Sodium Chloride 100 mls @ 999 mls/hr 03/08/20 17:05 Nacl 0.9% IV NIKOLAY PRN Hypotension Fentanyl Citrate 2,000 mcg in 100 mls @ 4.55 mls/hr 03/11/20 07:00 03/14/20 03:21 Fentanyl Drip Premix IV 2 mcg/kg/hr TITR INDU 9.1 mls/hr Administration Protocol 1 MCG/KG/HR Labetalol HCl 10 mg 02/28/20 09:00 03/11/20 03:04 Labetalol IV 10 mg Q4H PRN Administration Hypertension Lansoprazole 30 mg 03/06/20 10:00 03/14/20 09:39 Prevacid Solutab FEEDTUBE 30 mg QDAY INDU Administration Lorazepam 1 mg 03/10/20 12:00 03/13/20 18:48 Ativan IV 1 mg Q4H PRN Administration AGITATION Metoprolol Tartrate 25 mg 02/28/20 10:00 03/14/20 09:38 Metoprolol PO 25 mg BID INDU Administration Morphine Sulfate 2 mg 03/11/20 05:13 Morphine IV Q4H PRN Pain, Moderate (4-6) Multi-Ingred Cream/Lotion/Oil/Oint 1 applic 03/11/20 06:01 Artificial Tears Ophth Oint OU Q4HR PRN Dry Eye(s) Nitroglycerin 0.4 mg 03/11/20 05:14 Nitrostat SL .Q5MIN PRN Chest Pain Ondansetron HCl 4 mg 02/24/20 06:45 02/25/20 23:33 Zofran IV 4 mg Q8H PRN Administration Nausea And Vomiting Quetiapine Fumarate 100 mg 03/06/20 10:00 03/14/20 09:44 Seroquel PO 100 mg QAM INDU Administration Quetiapine Fumarate 200 mg 03/06/20 22:00 03/13/20 21:54 Seroquel PO 200 mg QHS INDU Administration Scopolamine 1 each 03/04/20 16:00 03/13/20 09:39 Transderm-Scop TD 1 each Q3D INDU Administration Simple Syrup 15 ml 03/01/20 08:46 Simple Syrup FEEDTUBE PRN PRN Hypoglycemia Simple Syrup 30 ml 03/01/20 08:46 Simple Syrup FEEDTUBE PRN PRN Hypoglycemia Sodium Bicarbonate 325 mg 03/01/20 08:46 Sodium Bicarbonate FEEDTUBE PRN PRN For Clogged Feeding Tube Sodium Chloride 10 ml 02/24/20 10:00 03/14/20 09:45 Sodium Chloride Flush Syringe 10 Ml IV 10 ml BID INDU Administration Sodium Chloride 10 ml 02/24/20 06:45 03/10/20 09:06 Sodium Chloride Flush Syringe 10 Ml IV 10 ml PRN PRN Administration LINE FLUSH Tamsulosin HCl 0.4 mg 03/01/20 17:00 03/14/20 09:44 Flomax PO 0.4 mg QDAY INDU Administration Nutrition/Malnutrition Assess - Dietary Evaluation Nutrition/Malnutrition Findings: Nutrition Notes Start: 02/24/20 13:42 Freq: Status: Active Protocol: Document 03/13/20 11:20 AVINASH (Rec: 03/13/20 11:24 AVINASH [id number]) Co-Sign 03/13/20 11:20 Nutrition Notes Initial or Follow up Reassessment Current Diagnosis Acute Kidney Injury,Sepsis, Hypertension,Respiratory Failure,Hyperlipidemia Other Pertinent Diagnosis Acute pancreatitis, HD Current Diet Nepro 1.8 at 35ml/hr Labs/Tests No recent labs Pertinent Medications Reviewed Height 5 ft 1 in Weight 91 kg [place] Body Weight (kg) 47.72 BMI 37.9 Weight Status Obese Subjective/Other Information F/U for TF restart/tolerance. TF running at goal rate and pt tolerating. Percent of energy/protein needs met: 100%/70% Burn Absent Trauma Absent GI Symptoms None Current % PO Negligible Minimum of two criteria No Fluid Accumulation Moderate to Severe (severe) #2 Nutrition Diagnosis Inadequate oral intake Diagnosis Progress(for reassessment Continues documentation) #1 Nutrition Diagnosis Food and nutrition-related knowledge deficit Diagnosis Progress(for reassessment Continues documentation) Is patient on ventilator? Yes Is Patient Ambulatory and/or Out of Bed No REE-([facility] Jeor-confined to bed) 1823.604 Kcal/Kg value to use for calculation 16 Approximate Energy Requirements Using 1456 kcal/Kg Calculation Used for Recommendations Kcal/kg Additional Notes Pro: 96g (>2g/kg IBW) Fluid: 1ml/kcal Nutrition Intervention Change Diet Order: Continue TF Nutrition Support: Nepro 1.8 at 35ml/hr Flush 150ml q4h Kcal 1,512 Protein (gm) 68 Fluid (mL) 611 Goal #1 TF tolerance Goal #2 Meet at least 80% of energy and protein needs via TF Anticipated Discharge Needs: Undetermined at this time Follow-Up By: 03/17/20 Additional Comments F/U for TF tolerance
--- NOTE | 2020-03-14 12:36 | Progress Note ---
Assessment and Plan Acute Hypoxemic Respiratory Failure on MVS Severe Sepsis Acute Toxic-Metabolic Encephalopathy Hypertensive urgency Morbid obesity Acute pancreatitis, abdominal pain Medical non compliance Oropharyngeal Dysphagia VAP bundle addressed Trial SBT on PS 11/08, get CXR to evaluate and get weaning parameters. Plan to liberate from MVS in the morning Continue all care as documented below - HD/UF for toxin and volume clearance per Renal service, - daily SAT and SBT assessment as tolerated - on minimal vent settings at this time - continue current vent settings - continue to hold fentanyl for SBT - accuchecks with glycemic control per SSI (While critically ill target blood glucose of 140-180 mg/dL; avoid hypoglycemia) - sedation for target RASS -1 to -2 - continue to wean supplemental oxygen for target O2 sats > 90% - VAP bundle addressed - continue lung protective strategies - continue bronchodilators with pulmonary hygiene per RT - wean per pulmonary driven protocols otherwise - continue enteral nutritiuon at goal rate as tolerated - complete Meropenem; de-escalate per ID rec's - JUANIS per client services administrator, [employer] - VTE prophylaxis-Heparin - prn Analgesia per CPOT score - avoid nephrotoxins, renally dose all medications - Maintenance of sleep-wake cycle, avoid delirium - Stress ulcer prophylaxis-PPI - mobility protocol, off loading and frequent turning for pressure ulcer prevention - Monitor hemodynamics closely CONDITION: CRITICAL PROGNOSIS: GUARDED CODE STATUS: FULL CODE The high probability of a clinically significant, sudden or life-threatening deterioration of the [respiratory, cardiovascular & GI] system(s) required my full and direct attention, intervention and personal management. The aggregate critical care time was [32] minutes without overlap. Time includes spent on; [x] Data Review and interpretation [x] Patient assessment and monitoring of vital signs [x] Documentation [x] Medication orders and management Subjective Date of service: 03/14/20 Principal diagnosis: HTNsive urgency; Morbid obesity; Ac. pancreatitis; Abdominal pain Interval history: Patient is seen today for: Acute hypoxemic respiratory failure on MVS; Hypertensive urgency; Morbid obesity; Acute pancreatitis; abdominal pain; Medical non compliance; Acute Toxic Metabolic Encephalopathy Seen and examined at bedside; 24hour events reviewed; nursing and respiratory care staff consulted; no adverse overnight events reported to me; resting peacefully in bed; remains on MVS; episodes of agitation overnight requiring prn doses of Lorazepam; On Klonipin, Fentanyl off on SBT PSV 03/10. Objective Vital Signs - 12hr 03/14/20 03/14/20 03/14/20 00:45 01:00 01:15 Temperature Pulse Rate 93 H 93 H 98 H Pulse Rate [ From Monitor] Respiratory 16 15 21 Rate Respiratory Rate [Abdomen] Blood Pressure 113/65 117/68 129/82 O2 Sat by Pulse 100 100 99 Oximetry 03/14/20 03/14/20 03/14/20 01:30 01:45 02:00 Temperature Pulse Rate 97 H 92 H 97 H Pulse Rate [ From Monitor] Respiratory 17 15 17 Rate Respiratory Rate [Abdomen] Blood Pressure 117/68 111/71 111/68 O2 Sat by Pulse 100 100 100 Oximetry 03/14/20 03/14/20 03/14/20 02:15 02:30 02:45 Temperature Pulse Rate 99 H 100 H 98 H Pulse Rate [ From Monitor] Respiratory 15 15 18 Rate Respiratory Rate [Abdomen] Blood Pressure 112/69 116/70 117/68 O2 Sat by Pulse 100 99 99 Oximetry 03/14/20 03/14/20 03/14/20 03:00 03:15 03:30 Temperature Pulse Rate 98 H 98 H 100 H Pulse Rate [ From Monitor] Respiratory 15 17 18 Rate Respiratory Rate [Abdomen] Blood Pressure 119/69 129/79 114/75 O2 Sat by Pulse 99 99 97 Oximetry 03/14/20 03/14/20 03/14/20 03:31 03:45 04:00 Temperature 100.6 F H Pulse Rate 101 H 99 H Pulse Rate [ 89 From Monitor] Respiratory 19 18 Rate Respiratory Rate [Abdomen] Blood Pressure 121/79 112/74 O2 Sat by Pulse 98 97 Oximetry 03/14/20 03/14/20 03/14/20 04:15 04:30 04:45 Temperature Pulse Rate 98 H 92 H 96 H Pulse Rate [ From Monitor] Respiratory 16 21 18 Rate Respiratory Rate [Abdomen] Blood Pressure 113/76 120/71 115/79 O2 Sat by Pulse 97 100 100 Oximetry 03/14/20 03/14/20 03/14/20 05:00 05:15 05:30 Temperature Pulse Rate 96 H 95 H 96 H Pulse Rate [ From Monitor] Respiratory 18 16 15 Rate Respiratory Rate [Abdomen] Blood Pressure 121/76 121/75 125/74 O2 Sat by Pulse 100 100 100 Oximetry 03/14/20 03/14/20 03/14/20 05:36 05:45 06:00 Temperature Pulse Rate 96 H 97 H 104 H Pulse Rate [ From Monitor] Respiratory 17 28 H Rate Respiratory Rate [Abdomen] Blood Pressure 125/74 131/87 129/78 O2 Sat by Pulse 100 100 Oximetry 03/14/20 03/14/20 03/14/20 06:15 06:30 06:45 Temperature Pulse Rate 99 H 97 H 92 H Pulse Rate [ From Monitor] Respiratory 18 15 15 Rate Respiratory Rate [Abdomen] Blood Pressure 117/70 129/83 112/71 O2 Sat by Pulse 96 97 96 Oximetry 03/14/20 03/14/20 03/14/20 07:00 07:15 07:30 Temperature Pulse Rate 90 88 90 Pulse Rate [ From Monitor] Respiratory 17 16 15 Rate Respiratory Rate [Abdomen] Blood Pressure 117/67 108/61 103/59 O2 Sat by Pulse 96 98 96 Oximetry 03/14/20 03/14/20 03/14/20 07:45 08:00 08:15 Temperature 97.7 F Pulse Rate 91 H 82 90 Pulse Rate [ 88 From Monitor] Respiratory 16 15 16 Rate Respiratory Rate [Abdomen] Blood Pressure 104/56 108/63 108/57 O2 Sat by Pulse 96 96 96 Oximetry 03/14/20 03/14/20 03/14/20 08:30 08:42 08:45 Temperature Pulse Rate 86 92 H 91 H Pulse Rate [ From Monitor] Respiratory 14 21 22 Rate Respiratory Rate [Abdomen] Blood Pressure 109/63 121/73 121/73 O2 Sat by Pulse 96 94 94 Oximetry 03/14/20 03/14/20 03/14/20 09:00 09:15 09:30 Temperature Pulse Rate 90 95 H 91 H Pulse Rate [ From Monitor] Respiratory 21 22 21 Rate Respiratory Rate [Abdomen] Blood Pressure 113/65 123/81 111/68 O2 Sat by Pulse 94 94 94 Oximetry 03/14/20 03/14/20 03/14/20 09:38 09:45 10:00 Temperature Pulse Rate 94 H 95 H 88 Pulse Rate [ From Monitor] Respiratory 22 22 Rate Respiratory 20 Rate [Abdomen] Blood Pressure 111/68 124/67 112/61 O2 Sat by Pulse 95 95 Oximetry 03/14/20 03/14/20 03/14/20 10:15 10:30 10:45 Temperature Pulse Rate 82 95 H 88 Pulse Rate [ From Monitor] Respiratory 20 22 21 Rate Respiratory Rate [Abdomen] Blood Pressure 99/57 120/74 101/62 O2 Sat by Pulse 97 96 97 Oximetry 03/14/20 03/14/20 03/14/20 11:00 11:15 11:30 Temperature Pulse Rate 90 91 H 89 Pulse Rate [ From Monitor] Respiratory 24 21 21 Rate Respiratory Rate [Abdomen] Blood Pressure 119/70 110/65 106/59 O2 Sat by Pulse 97 97 96 Oximetry 03/14/20 03/14/20 03/14/20 11:45 12:00 12:15 Temperature 97.9 F Pulse Rate 90 94 H 88 Pulse Rate [ 87 From Monitor] Respiratory 20 22 22 Rate Respiratory Rate [Abdomen] Blood Pressure 104/62 108/68 115/65 O2 Sat by Pulse 97 94 95 Oximetry 03/14/20 12:30 Temperature Pulse Rate 87 Pulse Rate [ From Monitor] Respiratory 21 Rate Respiratory Rate [Abdomen] Blood Pressure 110/59 O2 Sat by Pulse 96 Oximetry Constitutional: no acute distress, other (Obese female with mildly increased respiratory effort at rest on MVS, anxious and agitated) Eyes: non-icteric ENT: oropharynx moist, other (ETT 24 cm TY, RIJ HD trialysis catheter) Neck: supple, no lymphadenopathy, no JVD Effort: mildly labored Ascultation: Bilateral: diminished breath sounds (at the bases), wheezes (expiratory), rales, rhonchi Percussion: Bilateral: not dull Cardiovascular: regular rate and rhythm, other (S1,S2) Gastrointestinal: hypoactive bowel sounds, non-tender, other (distended and firm) Integumentary: normal Extremities: no cyanosis, no edema, pink and warm, pulses normal Neurologic: normal mental status, non-focal exam, pupils equal and round, motor strength normal and Psychiatric: anxious CBC and BMP: 03/15/20 04:31 03/15/20 04:31 ABG, PT/INR, D-dimer: ABG ABG pH 7.462 (7.320-7.450) H 03/13/20 14:23 POC ABG pCO2 40.5 mmHg (32.0-48.0) 03/13/20 14:23 ABG pCO2 46.6 mm Hg 03/13/20 04:00 POC ABG pO2 75.1 mmHg (83-108) L 03/13/20 14:23 ABG pO2 83.2 mm Hg (80.0-90.0) 03/13/20 04:00 POC ABG HCO3 28.3 03/13/20 14:23 ABG O2 Saturation 96.8 % (95.0-99.0) 03/13/20 04:00 PT/INR, D-dimer PT 14.1 Sec. (12.2-14.9) 03/11/20 07:31 INR 1.07 (0.87-1.13) 03/11/20 07:31 Abnormal lab findings: Abnormal Labs 02/24/20 02/24/20 02/24/20 02:53 02:53 Unknown WBC 12.7 H Hgb 10.0 L RBC Hct MCV 70 L MCH 22 L RDW 17.9 H Plt Count 458 H Lymph % (Auto) 8.9 L Lymph # 1.1 L [place] % (Auto) [place] # Lymph # (Auto) [place] # (Auto) Seg Neutrophils % 84.2 H Seg Neutrophils # 10.7 H Seg Neuts % (Manual) Lymphocytes % (Manual) Monocytes % (Manual) Nucleated RBC % Seg Neutrophils # Man Lymphocytes # (Manual) Monocytes # (Manual) Eosinophils # (Manual) Basophils # (Manual) ABG pH POC ABG pCO2 POC ABG pO2 ABG pO2 ABG HCO3 ABG O2 Saturation ABG Base Excess ABG Hemoglobin ABG Oxyhemoglobin ABG Sodium ABG Glucose Oxyhemoglobin Sodium Potassium Chloride Carbon Dioxide BUN 27 H Creatinine 1.7 H Glucose 118 H POC Glucose Calcium Phosphorus Magnesium Direct Bilirubin AST Alkaline Phosphatase Albumin Troponin T C-Reactive Protein Szhqb-6-Nevqvvepz PEP Interpretation Triglycerides Lipase 232 H HDL Cholesterol PTH Intact Arterial Blood Glucose Arterial Blood Ionized Calcium Urine WBC (Auto) 11.0 H Urine Creatinine Urine Total Protein ZINA Screen Crossmatch 02/25/20 02/25/20 02/25/20 00:03 03:49 03:49 WBC 29.1 H Hgb 9.4 L RBC Hct 30.2 L MCV 71 L MCH 22 L RDW 18.3 H Plt Count 525 H Lymph % (Auto) 3.4 L Lymph # 1.0 L [place] % (Auto) [place] # 1.0 H Lymph # (Auto) [place] # (Auto) Seg Neutrophils % Seg Neutrophils # 26.4 H Seg Neuts % (Manual) Lymphocytes % (Manual) Monocytes % (Manual) Nucleated RBC % Seg Neutrophils # Man Lymphocytes # (Manual) Monocytes # (Manual) Eosinophils # (Manual) Basophils # (Manual) ABG pH POC ABG pCO2 POC ABG pO2 ABG pO2 ABG HCO3 ABG O2 Saturation ABG Base Excess ABG Hemoglobin ABG Oxyhemoglobin ABG Sodium ABG Glucose Oxyhemoglobin Sodium Potassium Chloride Carbon Dioxide BUN Creatinine Glucose POC Glucose 126 H Calcium Phosphorus Magnesium Direct Bilirubin AST Alkaline Phosphatase Albumin Troponin T C-Reactive Protein Psgim-3-Xxgqpblnz PEP Interpretation Triglycerides Lipase 1486 H HDL Cholesterol PTH Intact Arterial Blood Glucose Arterial Blood Ionized Calcium Urine WBC (Auto) Urine Creatinine Urine Total Protein ZINA Screen Crossmatch 02/25/20 02/25/20 02/25/20 03:49 05:55 22:55 WBC Hgb RBC Hct MCV MCH RDW Plt Count Lymph % (Auto) Lymph # [place] % (Auto) [place] # Lymph # (Auto) [place] # (Auto) Seg Neutrophils % Seg Neutrophils # Seg Neuts % (Manual) Lymphocytes % (Manual) Monocytes % (Manual) Nucleated RBC % Seg Neutrophils # Man Lymphocytes # (Manual) Monocytes # (Manual) Eosinophils # (Manual) Basophils # (Manual) ABG pH POC ABG pCO2 POC ABG pO2 ABG pO2 ABG HCO3 ABG O2 Saturation ABG Base Excess ABG Hemoglobin ABG Oxyhemoglobin ABG Sodium ABG Glucose Oxyhemoglobin Sodium 136 L Potassium Chloride 97.9 L Carbon Dioxide 21 L BUN 39 H Creatinine 3.0 H D Glucose 118 H POC Glucose 124 H Calcium Phosphorus Magnesium Direct Bilirubin AST Alkaline Phosphatase Albumin 3.6 L Troponin T C-Reactive Protein Vwkqj-5-Gclkffoes PEP Interpretation Triglycerides Lipase HDL Cholesterol PTH Intact Arterial Blood Glucose Arterial Blood Ionized Calcium Urine WBC (Auto) Urine Creatinine 161.0 H Urine Total Protein 150 H ZINA Screen Crossmatch 02/26/20 02/26/20 02/26/20 04:39 04:39 04:39 WBC 30.3 H Hgb 9.1 L RBC Hct 29.8 L MCV 71 L MCH 22 L RDW 18.2 H Plt Count 530 H Lymph % (Auto) Lymph # [place] % (Auto) [place] # Lymph # (Auto) [place] # (Auto) Seg Neutrophils % Seg Neutrophils # Seg Neuts % (Manual) Lymphocytes % (Manual) Monocytes % (Manual) Nucleated RBC % Seg Neutrophils # Man Lymphocytes # (Manual) Monocytes # (Manual) Eosinophils # (Manual) Basophils # (Manual) ABG pH POC ABG pCO2 POC ABG pO2 ABG pO2 ABG HCO3 ABG O2 Saturation ABG Base Excess ABG Hemoglobin ABG Oxyhemoglobin ABG Sodium ABG Glucose Oxyhemoglobin Sodium Potassium Chloride Carbon Dioxide 19 L BUN 44 H Creatinine 3.1 H Glucose 106 H POC Glucose Calcium 8.1 L Phosphorus Magnesium Direct Bilirubin AST Alkaline Phosphatase Albumin Troponin T C-Reactive Protein Zsoxb-4-Nfcueqkly PEP Interpretation Triglycerides Lipase 540 H HDL Cholesterol PTH Intact Arterial Blood Glucose Arterial Blood Ionized Calcium Urine WBC (Auto) Urine Creatinine Urine Total Protein ZINA Screen Positive H Crossmatch 02/26/20 02/26/20 02/26/20 04:39 08:15 12:14 WBC Hgb RBC Hct MCV MCH RDW Plt Count Lymph % (Auto) Lymph # [place] % (Auto) [place] # Lymph # (Auto) [place] # (Auto) Seg Neutrophils % Seg Neutrophils # Seg Neuts % (Manual) Lymphocytes % (Manual) Monocytes % (Manual) Nucleated RBC % Seg Neutrophils # Man Lymphocytes # (Manual) Monocytes # (Manual) Eosinophils # (Manual) Basophils # (Manual) ABG pH POC ABG pCO2 POC ABG pO2 ABG pO2 ABG HCO3 ABG O2 Saturation ABG Base Excess ABG Hemoglobin ABG Oxyhemoglobin ABG Sodium ABG Glucose Oxyhemoglobin Sodium Potassium Chloride Carbon Dioxide BUN Creatinine Glucose POC Glucose 112 H Calcium Phosphorus Magnesium Direct Bilirubin AST Alkaline Phosphatase Albumin 2.8 L Troponin T C-Reactive Protein Mtimu-1-Busndukqq 0.7 H PEP Interpretation see below H Triglycerides Lipase HDL Cholesterol PTH Intact 911.3 H Arterial Blood Glucose Arterial Blood Ionized Calcium Urine WBC (Auto) Urine Creatinine Urine Total Protein ZINA Screen Crossmatch 02/27/20 02/27/20 02/27/20 04:18 04:18 04:18 WBC 26.8 H Hgb 7.9 L RBC Hct 26.3 L MCV 70 L MCH 21 L RDW 18.0 H Plt Count 513 H Lymph % (Auto) Lymph # [place] % (Auto) [place] # Lymph # (Auto) [place] # (Auto) Seg Neutrophils % Seg Neutrophils # Seg Neuts % (Manual) Lymphocytes % (Manual) Monocytes % (Manual) Nucleated RBC % Seg Neutrophils # Man Lymphocytes # (Manual) Monocytes # (Manual) Eosinophils # (Manual) Basophils # (Manual) ABG pH POC ABG pCO2 POC ABG pO2 ABG pO2 ABG HCO3 ABG O2 Saturation ABG Base Excess ABG Hemoglobin ABG Oxyhemoglobin ABG Sodium ABG Glucose Oxyhemoglobin Sodium 135 L 135 L Potassium Chloride Carbon Dioxide 15 L 16 L BUN 50 H 51 H Creatinine 3.4 H 3.4 H Glucose POC Glucose Calcium 7.4 L 7.5 L Phosphorus Magnesium Direct Bilirubin AST Alkaline Phosphatase Albumin 3.0 L Troponin T C-Reactive Protein 37.30 H Iyfkp-8-Smepwbhwv PEP Interpretation Triglycerides Lipase 177 H HDL Cholesterol PTH Intact Arterial Blood Glucose Arterial Blood Ionized Calcium Urine WBC (Auto) Urine Creatinine Urine Total Protein ZINA Screen Crossmatch 02/27/20 02/28/20 02/28/20 16:57 05:07 05:07 WBC Hgb RBC Hct MCV MCH RDW Plt Count Lymph % (Auto) Lymph # [place] % (Auto) [place] # Lymph # (Auto) [place] # (Auto) Seg Neutrophils % Seg Neutrophils # Seg Neuts % (Manual) Lymphocytes % (Manual) Monocytes % (Manual) Nucleated RBC % Seg Neutrophils # Man Lymphocytes # (Manual) Monocytes # (Manual) Eosinophils # (Manual) Basophils # (Manual) ABG pH 7.336 L POC ABG pCO2 POC ABG pO2 ABG pO2 57.0 L ABG HCO3 16.4 L ABG O2 Saturation 88.2 L ABG Base Excess -8.4 L ABG Hemoglobin 10.4 L ABG Oxyhemoglobin ABG Sodium ABG Glucose Oxyhemoglobin 85.7 L Sodium Potassium Chloride Carbon Dioxide 14 L BUN 60 H Creatinine 4.2 H Glucose POC Glucose Calcium 8.2 L Phosphorus Magnesium Direct Bilirubin AST Alkaline Phosphatase Albumin Troponin T C-Reactive Protein Yfubb-5-Nybbmlbhy PEP Interpretation Triglycerides Lipase 155 H HDL Cholesterol PTH Intact Arterial Blood Glucose Arterial Blood Ionized Calcium Urine WBC (Auto) Urine Creatinine Urine Total Protein ZINA Screen Crossmatch 02/28/20 02/28/20 02/28/20 05:56 11:05 11:05 WBC Hgb RBC Hct MCV MCH RDW Plt Count Lymph % (Auto) Lymph # [place] % (Auto) [place] # Lymph # (Auto) [place] # (Auto) Seg Neutrophils % Seg Neutrophils # Seg Neuts % (Manual) Lymphocytes % (Manual) Monocytes % (Manual) Nucleated RBC % Seg Neutrophils # Man Lymphocytes # (Manual) Monocytes # (Manual) Eosinophils # (Manual) Basophils # (Manual) ABG pH 7.317 L POC ABG pCO2 POC ABG pO2 76.2 L ABG pO2 ABG HCO3 16.4 L ABG O2 Saturation ABG Base Excess -8.9 L ABG Hemoglobin 6.6 L 7.6 L ABG Oxyhemoglobin ABG Sodium ABG Glucose Oxyhemoglobin 94.6 L Sodium Potassium Chloride Carbon Dioxide BUN Creatinine Glucose POC Glucose 115 H Calcium Phosphorus Magnesium Direct Bilirubin AST Alkaline Phosphatase Albumin Troponin T C-Reactive Protein Dmnvp-3-Qsnblrqbg PEP Interpretation Triglycerides Lipase HDL Cholesterol PTH Intact Arterial Blood Glucose Arterial Blood Ionized Calcium Urine WBC (Auto) Urine Creatinine Urine Total Protein ZINA Screen Crossmatch 02/28/20 02/28/20 02/29/20 17:39 19:39 05:43 WBC Hgb RBC Hct MCV MCH RDW Plt Count Lymph % (Auto) Lymph # [place] % (Auto) [place] # Lymph # (Auto) [place] # (Auto) Seg Neutrophils % Seg Neutrophils # Seg Neuts % (Manual) Lymphocytes % (Manual) Monocytes % (Manual) Nucleated RBC % Seg Neutrophils # Man Lymphocytes # (Manual) Monocytes # (Manual) Eosinophils # (Manual) Basophils # (Manual) ABG pH 7.300 L POC ABG pCO2 POC ABG pO2 ABG pO2 117.5 H ABG HCO3 15.0 L ABG O2 Saturation ABG Base Excess -10.5 L ABG Hemoglobin 6.4 L ABG Oxyhemoglobin ABG Sodium ABG Glucose Oxyhemoglobin Sodium Potassium Chloride Carbon Dioxide BUN Creatinine Glucose POC Glucose 120 H 66 L Calcium Phosphorus Magnesium Direct Bilirubin AST Alkaline Phosphatase Albumin Troponin T C-Reactive Protein Hrezo-8-Rmuauzerq PEP Interpretation Triglycerides Lipase HDL Cholesterol PTH Intact Arterial Blood Glucose Arterial Blood Ionized Calcium Urine WBC (Auto) Urine Creatinine Urine Total Protein ZINA Screen Crossmatch 02/29/20 02/29/20 02/29/20 05:45 12:04 12:31 WBC Hgb RBC Hct MCV MCH RDW Plt Count Lymph % (Auto) Lymph # [place] % (Auto) [place] # Lymph # (Auto) [place] # (Auto) Seg Neutrophils % Seg Neutrophils # Seg Neuts % (Manual) Lymphocytes % (Manual) Monocytes % (Manual) Nucleated RBC % Seg Neutrophils # Man Lymphocytes # (Manual) Monocytes # (Manual) Eosinophils # (Manual) Basophils # (Manual) ABG pH 7.212 L POC ABG pCO2 POC ABG pO2 ABG pO2 ABG HCO3 ABG O2 Saturation ABG Base Excess ABG Hemoglobin 7.4 L ABG Oxyhemoglobin ABG Sodium ABG Glucose Oxyhemoglobin Sodium Potassium Chloride Carbon Dioxide BUN Creatinine Glucose POC Glucose 65 L 64 L Calcium Phosphorus Magnesium Direct Bilirubin AST Alkaline Phosphatase Albumin Troponin T C-Reactive Protein Ogvpo-4-Uzbkodusa PEP Interpretation Triglycerides Lipase HDL Cholesterol PTH Intact Arterial Blood Glucose Arterial Blood Ionized Calcium Urine WBC (Auto) Urine Creatinine Urine Total Protein ZINA Screen Crossmatch 02/29/20 02/29/20 02/29/20 14:22 14:22 18:20 WBC Hgb RBC Hct MCV MCH RDW Plt Count Lymph % (Auto) Lymph # [place] % (Auto) [place] # Lymph # (Auto) [place] # (Auto) Seg Neutrophils % Seg Neutrophils # Seg Neuts % (Manual) Lymphocytes % (Manual) Monocytes % (Manual) Nucleated RBC % Seg Neutrophils # Man Lymphocytes # (Manual) Monocytes # (Manual) Eosinophils # (Manual) Basophils # (Manual) ABG pH POC ABG pCO2 POC ABG pO2 ABG pO2 ABG HCO3 ABG O2 Saturation ABG Base Excess ABG Hemoglobin ABG Oxyhemoglobin ABG Sodium ABG Glucose Oxyhemoglobin Sodium Potassium Chloride Carbon Dioxide 16 L BUN 77 H Creatinine 4.7 H Glucose POC Glucose 66 L Calcium Phosphorus 7.50 H Magnesium 2.60 H Direct Bilirubin AST Alkaline Phosphatase Albumin 2.3 L Troponin T C-Reactive Protein Mihtp-8-Ysquzzxio PEP Interpretation Triglycerides Lipase HDL Cholesterol PTH Intact Arterial Blood Glucose Arterial Blood Ionized Calcium Urine WBC (Auto) Urine Creatinine Urine Total Protein ZINA Screen Crossmatch 02/29/20 03/01/20 03/01/20 18:24 04:05 04:37 WBC Hgb RBC Hct MCV MCH RDW Plt Count Lymph % (Auto) Lymph # [place] % (Auto) [place] # Lymph # (Auto) [place] # (Auto) Seg Neutrophils % Seg Neutrophils # Seg Neuts % (Manual) Lymphocytes % (Manual) Monocytes % (Manual) Nucleated RBC % Seg Neutrophils # Man Lymphocytes # (Manual) Monocytes # (Manual) Eosinophils # (Manual) Basophils # (Manual) ABG pH 7.271 L 7.347 L POC ABG pCO2 POC ABG pO2 ABG pO2 133.5 H ABG HCO3 15.8 L ABG O2 Saturation ABG Base Excess -8.9 L ABG Hemoglobin 7.2 L 7.6 L ABG Oxyhemoglobin 93.4 L ABG Sodium ABG Glucose Oxyhemoglobin Sodium Potassium Chloride 107.6 H Carbon Dioxide 14 L BUN 83 H Creatinine 5.6 H Glucose POC Glucose Calcium Phosphorus 6.10 H Magnesium 2.40 H Direct Bilirubin AST Alkaline Phosphatase Albumin Troponin T C-Reactive Protein Clebr-5-Vrfidvyyi PEP Interpretation Triglycerides Lipase HDL Cholesterol PTH Intact Arterial Blood Glucose Arterial Blood Ionized Calcium Urine WBC (Auto) Urine Creatinine Urine Total Protein ZINA Screen Crossmatch 03/01/20 03/01/20 03/01/20 11:06 16:22 18:12 WBC 30.5 H Hgb 6.2 L RBC 2.92 L Hct 20.8 L MCV 71 L MCH 21 L RDW 18.2 H Plt Count 560 H Lymph % (Auto) Lymph # [place] % (Auto) [place] # Lymph # (Auto) [place] # (Auto) Seg Neutrophils % Seg Neutrophils # Seg Neuts % (Manual) 79.0 H Lymphocytes % (Manual) 3.0 L Monocytes % (Manual) Nucleated RBC % Seg Neutrophils # Man 24.1 H Lymphocytes # (Manual) 0.9 L Monocytes # (Manual) 2.1 H Eosinophils # (Manual) Basophils # (Manual) ABG pH POC ABG pCO2 POC ABG pO2 ABG pO2 ABG HCO3 ABG O2 Saturation ABG Base Excess ABG Hemoglobin ABG Oxyhemoglobin ABG Sodium ABG Glucose Oxyhemoglobin Sodium Potassium 5.3 H D Chloride Carbon Dioxide 11 L BUN 77 H Creatinine 5.0 H Glucose 54 L POC Glucose 121 H Calcium Phosphorus Magnesium Direct Bilirubin AST Alkaline Phosphatase Albumin 3.0 L Troponin T C-Reactive Protein 36.50 H Kfjhp-1-Obhzkndcn PEP Interpretation Triglycerides Lipase HDL Cholesterol PTH Intact Arterial Blood Glucose Arterial Blood Ionized Calcium Urine WBC (Auto) Urine Creatinine Urine Total Protein ZINA Screen Crossmatch 03/01/20 03/01/20 03/01/20 18:30 23:37 Unknown WBC Hgb RBC Hct MCV MCH RDW Plt Count Lymph % (Auto) Lymph # [place] % (Auto) [place] # Lymph # (Auto) [place] # (Auto) Seg Neutrophils % Seg Neutrophils # Seg Neuts % (Manual) Lymphocytes % (Manual) Monocytes % (Manual) Nucleated RBC % Seg Neutrophils # Man Lymphocytes # (Manual) Monocytes # (Manual) Eosinophils # (Manual) Basophils # (Manual) ABG pH POC ABG pCO2 POC ABG pO2 ABG pO2 ABG HCO3 ABG O2 Saturation ABG Base Excess ABG Hemoglobin ABG Oxyhemoglobin ABG Sodium ABG Glucose Oxyhemoglobin Sodium Potassium Chloride Carbon Dioxide BUN Creatinine Glucose POC Glucose 125 H Calcium Phosphorus Magnesium Direct Bilirubin AST Alkaline Phosphatase Albumin Troponin T C-Reactive Protein Xtciy-2-Qlwmzxyhi PEP Interpretation Triglycerides Lipase 297 H HDL Cholesterol PTH Intact Arterial Blood Glucose Arterial Blood Ionized Calcium Urine WBC (Auto) Urine Creatinine Urine Total Protein ZINA Screen Crossmatch See Detail 03/02/20 03/02/20 03/02/20 04:00 05:36 05:36 WBC 26.0 H Hgb 7.8 L RBC 3.26 L Hct 24.2 L MCV 74 L MCH 24 L RDW 21.3 H Plt Count 508 H Lymph % (Auto) Lymph # [place] % (Auto) [place] # Lymph # (Auto) [place] # (Auto) Seg Neutrophils % Seg Neutrophils # Seg Neuts % (Manual) 86.0 H Lymphocytes % (Manual) 4.0 L Monocytes % (Manual) Nucleated RBC % 2.0 H Seg Neutrophils # Man 22.4 H Lymphocytes # (Manual) 1.0 L Monocytes # (Manual) Eosinophils # (Manual) Basophils # (Manual) ABG pH POC ABG pCO2 27.8 L POC ABG pO2 ABG pO2 ABG HCO3 ABG O2 Saturation ABG Base Excess ABG Hemoglobin 8 L ABG Oxyhemoglobin ABG Sodium ABG Glucose Oxyhemoglobin Sodium Potassium Chloride Carbon Dioxide 17 L BUN 85 H Creatinine 5.6 H Glucose 109 H POC Glucose Calcium Phosphorus Magnesium 2.50 H Direct Bilirubin AST Alkaline Phosphatase Albumin 2.3 L Troponin T C-Reactive Protein Pnigo-9-Yvilzuali PEP Interpretation Triglycerides Lipase HDL Cholesterol PTH Intact Arterial Blood Glucose Arterial Blood Ionized Calcium Urine WBC (Auto) Urine Creatinine Urine Total Protein ZINA Screen Crossmatch 03/03/20 03/03/20 03/03/20 04:00 04:36 04:36 WBC Hgb RBC Hct MCV MCH RDW Plt Count Lymph % (Auto) Lymph # [place] % (Auto) [place] # Lymph # (Auto) [place] # (Auto) Seg Neutrophils % Seg Neutrophils # Seg Neuts % (Manual) Lymphocytes % (Manual) Monocytes % (Manual) Nucleated RBC % Seg Neutrophils # Man Lymphocytes # (Manual) Monocytes # (Manual) Eosinophils # (Manual) Basophils # (Manual) ABG pH POC ABG pCO2 31.8 L POC ABG pO2 ABG pO2 ABG HCO3 ABG O2 Saturation ABG Base Excess ABG Hemoglobin 8.6 L ABG Oxyhemoglobin ABG Sodium ABG Glucose Oxyhemoglobin Sodium 147 H Potassium Chloride 108.4 H Carbon Dioxide 16 L BUN 87 H Creatinine 6.2 H Glucose POC Glucose Calcium Phosphorus Magnesium 2.50 H Direct Bilirubin 1.0 H AST Alkaline Phosphatase Albumin 2.4 L Troponin T C-Reactive Protein Tyqme-9-Ltokgsgbu PEP Interpretation Triglycerides Lipase 119 H HDL Cholesterol PTH Intact Arterial Blood Glucose Arterial Blood Ionized Calcium Urine WBC (Auto) Urine Creatinine Urine Total Protein ZINA Screen Crossmatch 03/03/20 03/03/20 03/03/20 04:36 12:48 17:48 WBC 28.0 H Hgb 8.1 L RBC 3.41 L Hct 25.3 L MCV 74 L MCH 24 L RDW 20.8 H Plt Count 557 H Lymph % (Auto) Lymph # [place] % (Auto) [place] # Lymph # (Auto) [place] # (Auto) Seg Neutrophils % Seg Neutrophils # Seg Neuts % (Manual) 82.0 H Lymphocytes % (Manual) 4.0 L Monocytes % (Manual) Nucleated RBC % Seg Neutrophils # Man 23.0 H Lymphocytes # (Manual) 1.1 L Monocytes # (Manual) 2.0 H Eosinophils # (Manual) Basophils # (Manual) ABG pH POC ABG pCO2 POC ABG pO2 ABG pO2 ABG HCO3 ABG O2 Saturation ABG Base Excess ABG Hemoglobin ABG Oxyhemoglobin ABG Sodium ABG Glucose Oxyhemoglobin Sodium Potassium Chloride Carbon Dioxide BUN Creatinine Glucose POC Glucose 131 H 113 H Calcium Phosphorus Magnesium Direct Bilirubin AST Alkaline Phosphatase Albumin Troponin T C-Reactive Protein Cjiou-6-Kvqudvxjg PEP Interpretation Triglycerides Lipase HDL Cholesterol PTH Intact Arterial Blood Glucose Arterial Blood Ionized Calcium Urine WBC (Auto) Urine Creatinine Urine Total Protein ZINA Screen Crossmatch 03/03/20 03/04/20 03/04/20 23:43 03:43 04:05 WBC Hgb RBC Hct MCV MCH RDW Plt Count Lymph % (Auto) Lymph # [place] % (Auto) [place] # Lymph # (Auto) [place] # (Auto) Seg Neutrophils % Seg Neutrophils # Seg Neuts % (Manual) Lymphocytes % (Manual) Monocytes % (Manual) Nucleated RBC % Seg Neutrophils # Man Lymphocytes # (Manual) Monocytes # (Manual) Eosinophils # (Manual) Basophils # (Manual) ABG pH POC ABG pCO2 POC ABG pO2 ABG pO2 57.4 L ABG HCO3 27.2 H ABG O2 Saturation 88.6 L ABG Base Excess ABG Hemoglobin ABG Oxyhemoglobin ABG Sodium ABG Glucose Oxyhemoglobin Sodium Potassium 3.3 L Chloride Carbon Dioxide BUN 65 H Creatinine 5.3 H Glucose 152 H POC Glucose 149 H Calcium Phosphorus Magnesium Direct Bilirubin 0.7 H AST Alkaline Phosphatase Albumin 2.5 L Troponin T C-Reactive Protein Pxnkp-4-Snmrhjqaq PEP Interpretation Triglycerides Lipase HDL Cholesterol PTH Intact Arterial Blood Glucose Arterial Blood Ionized Calcium Urine WBC (Auto) Urine Creatinine Urine Total Protein ZINA Screen Crossmatch 03/04/20 03/04/20 03/04/20 04:05 05:26 12:21 WBC 30.1 H Hgb 8.2 L RBC 3.44 L Hct 25.2 L MCV 73 L MCH 24 L RDW 20.7 H Plt Count 554 H Lymph % (Auto) 3.3 L Lymph # [place] % (Auto) [place] # Lymph # (Auto) 1.0 L [place] # (Auto) 2.0 H Seg Neutrophils % 88.6 H Seg Neutrophils # 26.6 H Seg Neuts % (Manual) Lymphocytes % (Manual) Monocytes % (Manual) Nucleated RBC % Seg Neutrophils # Man Lymphocytes # (Manual) Monocytes # (Manual) Eosinophils # (Manual) Basophils # (Manual) ABG pH POC ABG pCO2 POC ABG pO2 ABG pO2 ABG HCO3 ABG O2 Saturation ABG Base Excess ABG Hemoglobin ABG Oxyhemoglobin ABG Sodium ABG Glucose Oxyhemoglobin Sodium Potassium Chloride Carbon Dioxide BUN Creatinine Glucose POC Glucose 136 H 155 H Calcium Phosphorus Magnesium Direct Bilirubin AST Alkaline Phosphatase Albumin Troponin T C-Reactive Protein Rearh-0-Yriukawey PEP Interpretation Triglycerides Lipase HDL Cholesterol PTH Intact Arterial Blood Glucose Arterial Blood Ionized Calcium Urine WBC (Auto) Urine Creatinine Urine Total Protein ZINA Screen Crossmatch 03/04/20 03/04/20 03/04/20 18:02 19:00 23:24 WBC Hgb RBC Hct MCV MCH RDW Plt Count Lymph % (Auto) Lymph # [place] % (Auto) [place] # Lymph # (Auto) [place] # (Auto) Seg Neutrophils % Seg Neutrophils # Seg Neuts % (Manual) Lymphocytes % (Manual) Monocytes % (Manual) Nucleated RBC % Seg Neutrophils # Man Lymphocytes # (Manual) Monocytes # (Manual) Eosinophils # (Manual) Basophils # (Manual) ABG pH POC ABG pCO2 POC ABG pO2 ABG pO2 ABG HCO3 ABG O2 Saturation ABG Base Excess ABG Hemoglobin ABG Oxyhemoglobin ABG Sodium ABG Glucose Oxyhemoglobin Sodium Potassium Chloride Carbon Dioxide BUN Creatinine Glucose POC Glucose 124 H 115 H Calcium Phosphorus Magnesium Direct Bilirubin AST Alkaline Phosphatase Albumin Troponin T C-Reactive Protein Wsidk-8-Prwquojui PEP Interpretation Triglycerides Lipase 72 H HDL Cholesterol PTH Intact Arterial Blood Glucose Arterial Blood Ionized Calcium Urine WBC (Auto) Urine Creatinine Urine Total Protein ZINA Screen Crossmatch 03/05/20 03/05/20 03/05/20 05:04 05:29 06:00 WBC Hgb RBC Hct MCV MCH RDW Plt Count Lymph % (Auto) Lymph # [place] % (Auto) [place] # Lymph # (Auto) [place] # (Auto) Seg Neutrophils % Seg Neutrophils # Seg Neuts % (Manual) Lymphocytes % (Manual) Monocytes % (Manual) Nucleated RBC % Seg Neutrophils # Man Lymphocytes # (Manual) Monocytes # (Manual) Eosinophils # (Manual) Basophils # (Manual) ABG pH POC ABG pCO2 POC ABG pO2 ABG pO2 62.5 L ABG HCO3 26.4 H ABG O2 Saturation 92.1 L ABG Base Excess ABG Hemoglobin 9.3 L ABG Oxyhemoglobin ABG Sodium ABG Glucose Oxyhemoglobin 89.9 L Sodium Potassium Chloride Carbon Dioxide BUN 54 H Creatinine 5.4 H Glucose 125 H POC Glucose 134 H Calcium Phosphorus Magnesium Direct Bilirubin 0.6 H AST Alkaline Phosphatase 133 H Albumin 2.5 L Troponin T C-Reactive Protein Mdgqx-7-Ifsernrwa PEP Interpretation Triglycerides Lipase HDL Cholesterol PTH Intact Arterial Blood Glucose Arterial Blood Ionized Calcium Urine WBC (Auto) Urine Creatinine Urine Total Protein ZINA Screen Crossmatch 03/05/20 03/05/20 03/05/20 12:18 18:01 21:39 WBC Hgb RBC Hct MCV MCH RDW Plt Count Lymph % (Auto) Lymph # [place] % (Auto) [place] # Lymph # (Auto) [place] # (Auto) Seg Neutrophils % Seg Neutrophils # Seg Neuts % (Manual) Lymphocytes % (Manual) Monocytes % (Manual) Nucleated RBC % Seg Neutrophils # Man Lymphocytes # (Manual) Monocytes # (Manual) Eosinophils # (Manual) Basophils # (Manual) ABG pH POC ABG pCO2 POC ABG pO2 ABG pO2 ABG HCO3 ABG O2 Saturation ABG Base Excess ABG Hemoglobin ABG Oxyhemoglobin ABG Sodium ABG Glucose Oxyhemoglobin Sodium Potassium Chloride Carbon Dioxide BUN Creatinine Glucose POC Glucose 118 H 108 H 123 H Calcium Phosphorus Magnesium Direct Bilirubin AST Alkaline Phosphatase Albumin Troponin T C-Reactive Protein Mglou-5-Kgybpjhta PEP Interpretation Triglycerides Lipase HDL Cholesterol PTH Intact Arterial Blood Glucose Arterial Blood Ionized Calcium Urine WBC (Auto) Urine Creatinine Urine Total Protein ZINA Screen Crossmatch 03/06/20 03/06/20 03/06/20 04:40 04:41 05:44 WBC Hgb RBC Hct MCV MCH RDW Plt Count Lymph % (Auto) Lymph # [place] % (Auto) [place] # Lymph # (Auto) [place] # (Auto) Seg Neutrophils % Seg Neutrophils # Seg Neuts % (Manual) Lymphocytes % (Manual) Monocytes % (Manual) Nucleated RBC % Seg Neutrophils # Man Lymphocytes # (Manual) Monocytes # (Manual) Eosinophils # (Manual) Basophils # (Manual) ABG pH POC ABG pCO2 POC ABG pO2 64.9 L ABG pO2 ABG HCO3 ABG O2 Saturation ABG Base Excess ABG Hemoglobin 9.9 L ABG Oxyhemoglobin 90.5 L ABG Sodium ABG Glucose Oxyhemoglobin Sodium Potassium Chloride 94.7 L Carbon Dioxide BUN 70 H Creatinine 7.1 H Glucose 113 H POC Glucose 134 H Calcium Phosphorus Magnesium Direct Bilirubin AST Alkaline Phosphatase Albumin Troponin T C-Reactive Protein [place]-1-Mdbggtbsh PEP Interpretation Triglycerides Lipase HDL Cholesterol PTH Intact Arterial Blood Glucose Arterial Blood Ionized Calcium Urine WBC (Auto) Urine Creatinine Urine Total Protein ZINA Screen Crossmatch 03/06/20 03/06/20 03/06/20 08:54 11:56 18:19 WBC 31.5 H Hgb 8.7 L RBC Hct 27.8 L MCV 75 L MCH 23 L RDW 21.2 H Plt Count 516 H Lymph % (Auto) Lymph # [place] % (Auto) [place] # Lymph # (Auto) [place] # (Auto) Seg Neutrophils % Seg Neutrophils # Seg Neuts % (Manual) 93.0 H Lymphocytes % (Manual) 2.0 L Monocytes % (Manual) Nucleated RBC % Seg Neutrophils # Man 29.3 H Lymphocytes # (Manual) 0.6 L Monocytes # (Manual) Eosinophils # (Manual) 0.6 H Basophils # (Manual) ABG pH POC ABG pCO2 POC ABG pO2 ABG pO2 ABG HCO3 ABG O2 Saturation ABG Base Excess ABG Hemoglobin ABG Oxyhemoglobin ABG Sodium ABG Glucose Oxyhemoglobin Sodium Potassium Chloride Carbon Dioxide BUN Creatinine Glucose POC Glucose 131 H 117 H Calcium Phosphorus Magnesium Direct Bilirubin AST Alkaline Phosphatase Albumin Troponin T C-Reactive Protein Ujjfv-4-Qrqundrsj PEP Interpretation Triglycerides Lipase HDL Cholesterol PTH Intact Arterial Blood Glucose Arterial Blood Ionized Calcium Urine WBC (Auto) Urine Creatinine Urine Total Protein ZINA Screen Crossmatch 03/07/20 03/07/20 03/07/20 04:42 05:03 05:03 WBC 26.9 H Hgb 8.3 L RBC 3.50 L Hct 26.6 L MCV 76 L MCH 24 L RDW 21.3 H Plt Count 470 H Lymph % (Auto) Lymph # [place] % (Auto) [place] # Lymph # (Auto) [place] # (Auto) Seg Neutrophils % Seg Neutrophils # Seg Neuts % (Manual) 89.0 H Lymphocytes % (Manual) 4.0 L Monocytes % (Manual) Nucleated RBC % Seg Neutrophils # Man 23.9 H Lymphocytes # (Manual) 1.1 L Monocytes # (Manual) Eosinophils # (Manual) Basophils # (Manual) 0.3 H ABG pH POC ABG pCO2 POC ABG pO2 68.3 L ABG pO2 ABG HCO3 ABG O2 Saturation ABG Base Excess ABG Hemoglobin 9.3 L ABG Oxyhemoglobin ABG Sodium ABG Glucose 112 H Oxyhemoglobin Sodium Potassium Chloride 94.8 L Carbon Dioxide BUN 52 H Creatinine 6.3 H Glucose 106 H POC Glucose Calcium Phosphorus Magnesium Direct Bilirubin AST Alkaline Phosphatase 132 H Albumin 2.5 L Troponin T C-Reactive Protein Gidul-5-Ddsmrzltg PEP Interpretation Triglycerides Lipase HDL Cholesterol PTH Intact Arterial Blood Glucose 112 H Arterial Blood Ionized Calcium Urine WBC (Auto) Urine Creatinine Urine Total Protein ZINA Screen Crossmatch 03/07/20 03/07/20 03/07/20 12:08 18:05 23:29 WBC Hgb RBC Hct MCV MCH RDW Plt Count Lymph % (Auto) Lymph # [place] % (Auto) [place] # Lymph # (Auto) [place] # (Auto) Seg Neutrophils % Seg Neutrophils # Seg Neuts % (Manual) Lymphocytes % (Manual) Monocytes % (Manual) Nucleated RBC % Seg Neutrophils # Man Lymphocytes # (Manual) Monocytes # (Manual) Eosinophils # (Manual) Basophils # (Manual) ABG pH POC ABG pCO2 POC ABG pO2 ABG pO2 ABG HCO3 ABG O2 Saturation ABG Base Excess ABG Hemoglobin ABG Oxyhemoglobin ABG Sodium ABG Glucose Oxyhemoglobin Sodium Potassium Chloride Carbon Dioxide BUN Creatinine Glucose POC Glucose 114 H 111 H 118 H Calcium Phosphorus Magnesium Direct Bilirubin AST Alkaline Phosphatase Albumin Troponin T C-Reactive Protein Szcvs-7-Sxipdtryg PEP Interpretation Triglycerides Lipase HDL Cholesterol PTH Intact Arterial Blood Glucose Arterial Blood Ionized Calcium Urine WBC (Auto) Urine Creatinine Urine Total Protein ZINA Screen Crossmatch 03/08/20 03/08/20 03/08/20 04:50 17:45 23:53 WBC Hgb RBC Hct MCV MCH RDW Plt Count Lymph % (Auto) Lymph # [place] % (Auto) [place] # Lymph # (Auto) [place] # (Auto) Seg Neutrophils % Seg Neutrophils # Seg Neuts % (Manual) Lymphocytes % (Manual) Monocytes % (Manual) Nucleated RBC % Seg Neutrophils # Man Lymphocytes # (Manual) Monocytes # (Manual) Eosinophils # (Manual) Basophils # (Manual) ABG pH POC ABG pCO2 POC ABG pO2 ABG pO2 ABG HCO3 ABG O2 Saturation ABG Base Excess ABG Hemoglobin ABG Oxyhemoglobin ABG Sodium ABG Glucose Oxyhemoglobin Sodium Potassium Chloride 95.5 L Carbon Dioxide BUN 52 H Creatinine 6.2 H Glucose 109 H POC Glucose 106 H 106 H Calcium Phosphorus Magnesium Direct Bilirubin AST Alkaline Phosphatase Albumin Troponin T C-Reactive Protein Zrjpo-4-Rcinjjdwh PEP Interpretation Triglycerides Lipase HDL Cholesterol PTH Intact Arterial Blood Glucose Arterial Blood Ionized Calcium Urine WBC (Auto) Urine Creatinine Urine Total Protein ZINA Screen Crossmatch 03/09/20 03/09/20 03/09/20 04:00 07:53 18:22 WBC 21.9 H Hgb 7.5 L RBC 3.27 L Hct 24.3 L MCV 74 L MCH 23 L RDW 20.9 H Plt Count 488 H Lymph % (Auto) Lymph # [place] % (Auto) [place] # Lymph # (Auto) [place] # (Auto) Seg Neutrophils % Seg Neutrophils # Seg Neuts % (Manual) Lymphocytes % (Manual) Monocytes % (Manual) Nucleated RBC % Seg Neutrophils # Man Lymphocytes # (Manual) Monocytes # (Manual) Eosinophils # (Manual) Basophils # (Manual) ABG pH POC ABG pCO2 POC ABG pO2 ABG pO2 ABG HCO3 ABG O2 Saturation ABG Base Excess ABG Hemoglobin ABG Oxyhemoglobin ABG Sodium ABG Glucose Oxyhemoglobin Sodium Potassium Chloride 92.8 L Carbon Dioxide BUN 74 H Creatinine 7.8 H Glucose POC Glucose 114 H Calcium Phosphorus Magnesium Direct Bilirubin AST Alkaline Phosphatase Albumin Troponin T C-Reactive Protein Arldp-1-Rncbzxxyc PEP Interpretation Triglycerides Lipase HDL Cholesterol PTH Intact Arterial Blood Glucose Arterial Blood Ionized Calcium Urine WBC (Auto) Urine Creatinine Urine Total Protein ZINA Screen Crossmatch 03/10/20 03/10/20 03/10/20 04:37 04:37 09:53 WBC 16.0 H Hgb 7.1 L RBC 2.99 L Hct 22.4 L MCV 75 L MCH 24 L RDW 21.5 H Plt Count Lymph % (Auto) 9.2 L Lymph # [place] % (Auto) 9.9 H [place] # Lymph # (Auto) [place] # (Auto) 1.6 H Seg Neutrophils % 79.2 H Seg Neutrophils # 12.6 H Seg Neuts % (Manual) Lymphocytes % (Manual) Monocytes % (Manual) Nucleated RBC % Seg Neutrophils # Man Lymphocytes # (Manual) Monocytes # (Manual) Eosinophils # (Manual) Basophils # (Manual) ABG pH POC ABG pCO2 POC ABG pO2 ABG pO2 ABG HCO3 ABG O2 Saturation ABG Base Excess ABG Hemoglobin 7.7 L ABG Oxyhemoglobin ABG Sodium 134.7 L ABG Glucose 103 H Oxyhemoglobin Sodium Potassium Chloride Carbon Dioxide BUN 45 H Creatinine 5.6 H Glucose 108 H POC Glucose Calcium Phosphorus Magnesium Direct Bilirubin AST Alkaline Phosphatase Albumin Troponin T C-Reactive Protein Xypmc-0-Mdggfivrw PEP Interpretation Triglycerides Lipase HDL Cholesterol PTH Intact Arterial Blood Glucose 103 H Arterial Blood Ionized Calcium Urine WBC (Auto) Urine Creatinine Urine Total Protein ZINA Screen Crossmatch 03/10/20 03/11/20 03/11/20 23:46 02:52 03:25 WBC Hgb RBC Hct MCV MCH RDW Plt Count Lymph % (Auto) Lymph # [place] % (Auto) [place] # Lymph # (Auto) [place] # (Auto) Seg Neutrophils % Seg Neutrophils # Seg Neuts % (Manual) Lymphocytes % (Manual) Monocytes % (Manual) Nucleated RBC % Seg Neutrophils # Man Lymphocytes # (Manual) Monocytes # (Manual) Eosinophils # (Manual) Basophils # (Manual) ABG pH POC ABG pCO2 POC ABG pO2 77.5 L ABG pO2 ABG HCO3 ABG O2 Saturation ABG Base Excess ABG Hemoglobin 8.0 L ABG Oxyhemoglobin ABG Sodium 135.8 L ABG Glucose Oxyhemoglobin Sodium Potassium Chloride Carbon Dioxide BUN Creatinine Glucose POC Glucose 116 H Calcium Phosphorus Magnesium Direct Bilirubin AST Alkaline Phosphatase Albumin Troponin T 0.093 H C-Reactive Protein Ajeow-3-Wmwyauzsn PEP Interpretation Triglycerides Lipase HDL Cholesterol PTH Intact Arterial Blood Glucose Arterial Blood Ionized Calcium Urine WBC (Auto) Urine Creatinine Urine Total Protein ZINA Screen Crossmatch 03/11/20 03/11/20 03/11/20 04:32 04:32 06:16 WBC 22.4 H Hgb 7.8 L RBC 3.32 L Hct 25.0 L MCV 75 L MCH 24 L RDW 21.4 H Plt Count 553 H Lymph % (Auto) Lymph # [place] % (Auto) [place] # Lymph # (Auto) [place] # (Auto) Seg Neutrophils % Seg Neutrophils # Seg Neuts % (Manual) 81.0 H Lymphocytes % (Manual) 8.0 L Monocytes % (Manual) 8.0 H Nucleated RBC % Seg Neutrophils # Man 18.1 H Lymphocytes # (Manual) Monocytes # (Manual) 1.8 H Eosinophils # (Manual) Basophils # (Manual) 0.2 H ABG pH POC ABG pCO2 POC ABG pO2 ABG pO2 ABG HCO3 ABG O2 Saturation ABG Base Excess ABG Hemoglobin ABG Oxyhemoglobin ABG Sodium ABG Glucose Oxyhemoglobin Sodium Potassium Chloride 96.6 L Carbon Dioxide BUN 64 H Creatinine 6.5 H Glucose 101 H POC Glucose 142 H Calcium Phosphorus Magnesium Direct Bilirubin AST 41 H Alkaline Phosphatase Albumin 2.7 L Troponin T C-Reactive Protein Ungui-9-Trmektepc PEP Interpretation Triglycerides Lipase HDL Cholesterol PTH Intact Arterial Blood Glucose Arterial Blood Ionized Calcium Urine WBC (Auto) Urine Creatinine Urine Total Protein ZINA Screen Crossmatch 03/11/20 03/11/20 03/11/20 06:50 07:31 14:31 WBC Hgb 7.7 L RBC Hct 23.7 L MCV MCH RDW Plt Count 553 H Lymph % (Auto) Lymph # [place] % (Auto) [place] # Lymph # (Auto) [place] # (Auto) Seg Neutrophils % Seg Neutrophils # Seg Neuts % (Manual) Lymphocytes % (Manual) Monocytes % (Manual) Nucleated RBC % Seg Neutrophils # Man Lymphocytes # (Manual) Monocytes # (Manual) Eosinophils # (Manual) Basophils # (Manual) ABG pH POC ABG pCO2 POC ABG pO2 ABG pO2 67.8 L ABG HCO3 ABG O2 Saturation ABG Base Excess ABG Hemoglobin ABG Oxyhemoglobin ABG Sodium ABG Glucose Oxyhemoglobin Sodium Potassium Chloride Carbon Dioxide BUN Creatinine Glucose POC Glucose Calcium Phosphorus Magnesium Direct Bilirubin AST Alkaline Phosphatase Albumin Troponin T 0.085 H C-Reactive Protein Lzzjm-3-Bfsxinrfc PEP Interpretation Triglycerides 247 H Lipase HDL Cholesterol 28 L PTH Intact Arterial Blood Glucose Arterial Blood Ionized Calcium Urine WBC (Auto) Urine Creatinine Urine Total Protein ZINA Screen Crossmatch 03/12/20 03/12/20 03/13/20 03:46 17:33 04:00 WBC Hgb 6.6 L RBC Hct 19.5 L* MCV MCH RDW Plt Count 603 H Lymph % (Auto) Lymph # [place] % (Auto) [place] # Lymph # (Auto) [place] # (Auto) Seg Neutrophils % Seg Neutrophils # Seg Neuts % (Manual) Lymphocytes % (Manual) Monocytes % (Manual) Nucleated RBC % Seg Neutrophils # Man Lymphocytes # (Manual) Monocytes # (Manual) Eosinophils # (Manual) Basophils # (Manual) ABG pH POC ABG pCO2 POC ABG pO2 78.3 L ABG pO2 ABG HCO3 ABG O2 Saturation ABG Base Excess ABG Hemoglobin 7.9 L ABG Oxyhemoglobin ABG Sodium 134.8 L ABG Glucose Oxyhemoglobin Sodium Potassium Chloride Carbon Dioxide BUN Creatinine Glucose POC Glucose 107 H Calcium Phosphorus Magnesium Direct Bilirubin AST Alkaline Phosphatase Albumin Troponin T C-Reactive Protein Ncqnl-4-Vxmzugzzm PEP Interpretation Triglycerides Lipase HDL Cholesterol PTH Intact Arterial Blood Glucose Arterial Blood Ionized Calcium Urine WBC (Auto) Urine Creatinine Urine Total Protein ZINA Screen Crossmatch 03/13/20 03/13/20 03/13/20 04:00 08:20 08:45 WBC Hgb 7.0 L RBC Hct 21.8 L MCV MCH RDW Plt Count Lymph % (Auto) Lymph # [place] % (Auto) [place] # Lymph # (Auto) [place] # (Auto) Seg Neutrophils % Seg Neutrophils # Seg Neuts % (Manual) Lymphocytes % (Manual) Monocytes % (Manual) Nucleated RBC % Seg Neutrophils # Man Lymphocytes # (Manual) Monocytes # (Manual) Eosinophils # (Manual) Basophils # (Manual) ABG pH POC ABG pCO2 POC ABG pO2 ABG pO2 ABG HCO3 27.4 H ABG O2 Saturation ABG Base Excess ABG Hemoglobin 8.7 L ABG Oxyhemoglobin ABG Sodium ABG Glucose Oxyhemoglobin 94.6 L Sodium Potassium Chloride Carbon Dioxide BUN Creatinine Glucose POC Glucose Calcium Phosphorus Magnesium Direct Bilirubin AST Alkaline Phosphatase Albumin Troponin T C-Reactive Protein Uuxhl-1-Fjzxwksna PEP Interpretation Triglycerides Lipase HDL Cholesterol PTH Intact Arterial Blood Glucose Arterial Blood Ionized Calcium Urine WBC (Auto) Urine Creatinine Urine Total Protein ZINA Screen Crossmatch See Detail 03/13/20 03/13/20 03/14/20 14:23 15:38 06:15 WBC Hgb RBC Hct MCV MCH RDW Plt Count Lymph % (Auto) Lymph # [place] % (Auto) [place] # Lymph # (Auto) [place] # (Auto) Seg Neutrophils % Seg Neutrophils # Seg Neuts % (Manual) Lymphocytes % (Manual) Monocytes % (Manual) Nucleated RBC % Seg Neutrophils # Man Lymphocytes # (Manual) Monocytes # (Manual) Eosinophils # (Manual) Basophils # (Manual) ABG pH 7.462 H POC ABG pCO2 POC ABG pO2 75.1 L ABG pO2 ABG HCO3 ABG O2 Saturation ABG Base Excess ABG Hemoglobin 8.9 L ABG Oxyhemoglobin ABG Sodium 135.9 L ABG Glucose Oxyhemoglobin Sodium Potassium Chloride 94.2 L 93.1 L Carbon Dioxide BUN 32 H 45 H Creatinine 3.6 H 4.9 H Glucose POC Glucose Calcium Phosphorus Magnesium Direct Bilirubin AST Alkaline Phosphatase Albumin Troponin T C-Reactive Protein Mkqyu-5-Jcqgqfopw PEP Interpretation Triglycerides Lipase HDL Cholesterol PTH Intact Arterial Blood Glucose Arterial Blood Ionized Calcium 4.5 L Urine WBC (Auto) Urine Creatinine Urine Total Protein ZINA Screen Crossmatch 03/14/20 06:15 WBC Hgb 7.8 L RBC Hct 22.4 L MCV MCH RDW Plt Count Lymph % (Auto) Lymph # [place] % (Auto) [place] # Lymph # (Auto) [place] # (Auto) Seg Neutrophils % Seg Neutrophils # Seg Neuts % (Manual) Lymphocytes % (Manual) Monocytes % (Manual) Nucleated RBC % Seg Neutrophils # Man Lymphocytes # (Manual) Monocytes # (Manual) Eosinophils # (Manual) Basophils # (Manual) ABG pH POC ABG pCO2 POC ABG pO2 ABG pO2 ABG HCO3 ABG O2 Saturation ABG Base Excess ABG Hemoglobin ABG Oxyhemoglobin ABG Sodium ABG Glucose Oxyhemoglobin Sodium Potassium Chloride Carbon Dioxide BUN Creatinine Glucose POC Glucose Calcium Phosphorus Magnesium Direct Bilirubin AST Alkaline Phosphatase Albumin Troponin T C-Reactive Protein Vpqcq-8-Gukvjdpvm PEP Interpretation Triglycerides Lipase HDL Cholesterol PTH Intact Arterial Blood Glucose Arterial Blood Ionized Calcium Urine WBC (Auto) Urine Creatinine Urine Total Protein ZINA Screen Crossmatch Allied health notes reviewed: RT
[2020-03-14 14:01] LABS: Basophils # (Auto) 0.1 K/mm3 (0.0-0.1); Basophils % (Auto) 1.1 % (0.0-1.8); Eosinophils # (Auto) 0.6 K/mm3 (0.0-0.4); Eosinophils % (Auto) 4.1 % (0.0-4.3); Hematocrit 23.8 % (30.3-42.9); Hemoglobin 7.7 gm/dl (10.1-14.3); Lymphocytes # (Auto) 2.2 K/mm3 (1.2-5.4); Lymphocytes % (Auto) 16.3 % (13.4-35.0); Mean Corpuscular HGB Conc 33 % (30-34); Mean Corpuscular Volume 76 fl (79-97); Platelet Count 662 K/mm3 (140-440); Red Blood Count 3.13 M/mm3 (3.65-5.03)
[2020-03-14 14:02] LABS: Red Cell Distribution Width 21.6 % (13.2-15.2)
--- NOTE | 2020-03-14 14:44 | Progress Note ---
Assessment and Plan Assessment * Acute kidney injury attributed to prerenal azotemia/ATN related to pancreatitis vs NSAID induced nephropathy vs PPI --Serologies: ANCA, C3, C4 - negative; ZINA positive * Acute hypoxic respiratory failure * Chest pain --Elevated troponin * Metabolic acidosis * Acute severe pancreatitis * Fever * Accelerated hypertension - resolved * Anemia Plan: * Continue MWF schedule for now- UF as tolerated * Monitor SCr trend and UOP for evidence of recovery * Cardiology recommendations reviewed - conservative cardiac management for now * GI recommendations reviewed - may need MRCP in future * Vent management per pulm * Continue antiHTN medications * Abx per ID - currently on Meropenem * Hold ACEi for now * Start Epogen TIW prn * Dose medications for renal function * Avoid potential nephrotoxins Subjective Date of service: 03/14/20 Principal diagnosis: HTNsive urgency; Morbid obesity; Ac. pancreatitis; Abdominal pain Interval history: Chart reviewed - 24h events reviewed. TMax 100.6 Objective - Exam Narrative Exam: Exam deferred - patient being cleaned by nursing staff - Vital Signs Vital signs: Vital Signs - 12hr 03/14/20 03/14/20 03/14/20 02:45 03:00 03:15 Temperature Pulse Rate 98 H 98 H 98 H Pulse Rate [ Anterior Bilateral Throughout] Pulse Rate [ From Monitor] Pulse Rate [ Left Upper Lobe ] Respiratory 18 15 17 Rate Respiratory Rate [Abdomen] Respiratory Rate [Anterior Bilateral Throughout] Respiratory Rate [Left Upper Lobe] Blood Pressure 117/68 119/69 129/79 O2 Sat by Pulse 99 99 99 Oximetry 03/14/20 03/14/20 03/14/20 03:30 03:31 03:45 Temperature 100.6 F H Pulse Rate 100 H 101 H Pulse Rate [ Anterior Bilateral Throughout] Pulse Rate [ From Monitor] Pulse Rate [ Left Upper Lobe ] Respiratory 18 19 Rate Respiratory Rate [Abdomen] Respiratory Rate [Anterior Bilateral Throughout] Respiratory Rate [Left Upper Lobe] Blood Pressure 114/75 121/79 O2 Sat by Pulse 97 98 Oximetry 03/14/20 03/14/20 03/14/20 04:00 04:15 04:30 Temperature Pulse Rate 99 H 98 H 92 H Pulse Rate [ Anterior Bilateral Throughout] Pulse Rate [ 89 From Monitor] Pulse Rate [ Left Upper Lobe ] Respiratory 18 16 21 Rate Respiratory Rate [Abdomen] Respiratory Rate [Anterior Bilateral Throughout] Respiratory Rate [Left Upper Lobe] Blood Pressure 112/74 113/76 120/71 O2 Sat by Pulse 97 97 100 Oximetry 03/14/20 03/14/20 03/14/20 04:45 05:00 05:15 Temperature Pulse Rate 96 H 96 H 95 H Pulse Rate [ Anterior Bilateral Throughout] Pulse Rate [ From Monitor] Pulse Rate [ Left Upper Lobe ] Respiratory 18 18 16 Rate Respiratory Rate [Abdomen] Respiratory Rate [Anterior Bilateral Throughout] Respiratory Rate [Left Upper Lobe] Blood Pressure 115/79 121/76 121/75 O2 Sat by Pulse 100 100 100 Oximetry 03/14/20 03/14/20 03/14/20 05:30 05:36 05:45 Temperature Pulse Rate 96 H 96 H 97 H Pulse Rate [ Anterior Bilateral Throughout] Pulse Rate [ From Monitor] Pulse Rate [ Left Upper Lobe ] Respiratory 15 17 Rate Respiratory Rate [Abdomen] Respiratory Rate [Anterior Bilateral Throughout] Respiratory Rate [Left Upper Lobe] Blood Pressure 125/74 125/74 131/87 O2 Sat by Pulse 100 100 Oximetry 03/14/20 03/14/20 03/14/20 06:00 06:15 06:30 Temperature Pulse Rate 104 H 99 H 97 H Pulse Rate [ Anterior Bilateral Throughout] Pulse Rate [ From Monitor] Pulse Rate [ Left Upper Lobe ] Respiratory 28 H 18 15 Rate Respiratory Rate [Abdomen] Respiratory Rate [Anterior Bilateral Throughout] Respiratory Rate [Left Upper Lobe] Blood Pressure 129/78 117/70 129/83 O2 Sat by Pulse 100 96 97 Oximetry 03/14/20 03/14/20 03/14/20 06:45 07:00 07:15 Temperature Pulse Rate 92 H 90 88 Pulse Rate [ Anterior Bilateral Throughout] Pulse Rate [ From Monitor] Pulse Rate [ Left Upper Lobe ] Respiratory 15 17 16 Rate Respiratory Rate [Abdomen] Respiratory Rate [Anterior Bilateral Throughout] Respiratory Rate [Left Upper Lobe] Blood Pressure 112/71 117/67 108/61 O2 Sat by Pulse 96 96 98 Oximetry 03/14/20 03/14/20 03/14/20 07:30 07:45 08:00 Temperature 99.1 F Pulse Rate 90 91 H 82 Pulse Rate [ 94 H Anterior Bilateral Throughout] Pulse Rate [ 88 From Monitor] Pulse Rate [ 92 H Left Upper Lobe ] Respiratory 15 16 15 Rate Respiratory Rate [Abdomen] Respiratory 20 Rate [Anterior Bilateral Throughout] Respiratory 21 Rate [Left Upper Lobe] Blood Pressure 103/59 104/56 108/63 O2 Sat by Pulse 96 96 96 Oximetry 03/14/20 03/14/20 03/14/20 08:15 08:30 08:42 Temperature Pulse Rate 90 86 92 H Pulse Rate [ Anterior Bilateral Throughout] Pulse Rate [ From Monitor] Pulse Rate [ Left Upper Lobe ] Respiratory 16 14 21 Rate Respiratory Rate [Abdomen] Respiratory Rate [Anterior Bilateral Throughout] Respiratory Rate [Left Upper Lobe] Blood Pressure 108/57 109/63 121/73 O2 Sat by Pulse 96 96 94 Oximetry 03/14/20 03/14/20 03/14/20 08:45 09:00 09:15 Temperature Pulse Rate 91 H 90 95 H Pulse Rate [ Anterior Bilateral Throughout] Pulse Rate [ From Monitor] Pulse Rate [ Left Upper Lobe ] Respiratory 22 21 22 Rate Respiratory Rate [Abdomen] Respiratory Rate [Anterior Bilateral Throughout] Respiratory Rate [Left Upper Lobe] Blood Pressure 121/73 113/65 123/81 O2 Sat by Pulse 94 94 94 Oximetry 03/14/20 03/14/20 03/14/20 09:30 09:38 09:45 Temperature Pulse Rate 91 H 94 H 95 H Pulse Rate [ Anterior Bilateral Throughout] Pulse Rate [ From Monitor] Pulse Rate [ Left Upper Lobe ] Respiratory 21 22 Rate Respiratory Rate [Abdomen] Respiratory Rate [Anterior Bilateral Throughout] Respiratory Rate [Left Upper Lobe] Blood Pressure 111/68 111/68 124/67 O2 Sat by Pulse 94 95 Oximetry 03/14/20 03/14/20 03/14/20 10:00 10:15 10:30 Temperature Pulse Rate 88 82 95 H Pulse Rate [ Anterior Bilateral Throughout] Pulse Rate [ From Monitor] Pulse Rate [ Left Upper Lobe ] Respiratory 22 20 22 Rate Respiratory 20 Rate [Abdomen] Respiratory Rate [Anterior Bilateral Throughout] Respiratory Rate [Left Upper Lobe] Blood Pressure 112/61 99/57 120/74 O2 Sat by Pulse 95 97 96 Oximetry 03/14/20 03/14/20 03/14/20 10:45 11:00 11:15 Temperature Pulse Rate 88 90 91 H Pulse Rate [ Anterior Bilateral Throughout] Pulse Rate [ From Monitor] Pulse Rate [ Left Upper Lobe ] Respiratory 21 24 21 Rate Respiratory Rate [Abdomen] Respiratory Rate [Anterior Bilateral Throughout] Respiratory Rate [Left Upper Lobe] Blood Pressure 101/62 119/70 110/65 O2 Sat by Pulse 97 97 97 Oximetry 03/14/20 03/14/20 03/14/20 11:30 11:45 12:00 Temperature 97.9 F Pulse Rate 89 90 89 Pulse Rate [ Anterior Bilateral Throughout] Pulse Rate [ 87 From Monitor] Pulse Rate [ Left Upper Lobe ] Respiratory 21 20 22 Rate Respiratory Rate [Abdomen] Respiratory Rate [Anterior Bilateral Throughout] Respiratory Rate [Left Upper Lobe] Blood Pressure 106/59 104/62 108/68 O2 Sat by Pulse 96 97 94 Oximetry 03/14/20 03/14/20 03/14/20 12:15 12:30 12:56 Temperature Pulse Rate 88 87 90 Pulse Rate [ Anterior Bilateral Throughout] Pulse Rate [ From Monitor] Pulse Rate [ Left Upper Lobe ] Respiratory 22 21 22 Rate Respiratory Rate [Abdomen] Respiratory Rate [Anterior Bilateral Throughout] Respiratory Rate [Left Upper Lobe] Blood Pressure 115/65 110/59 110/57 O2 Sat by Pulse 95 96 98 Oximetry 03/14/20 03/14/20 13:04 13:39 Temperature Pulse Rate 98 H Pulse Rate [ Anterior Bilateral Throughout] Pulse Rate [ From Monitor] Pulse Rate [ 93 H Left Upper Lobe ] Respiratory Rate Respiratory Rate [Abdomen] Respiratory Rate [Anterior Bilateral Throughout] Respiratory 23 Rate [Left Upper Lobe] Blood Pressure 121/79 O2 Sat by Pulse Oximetry - Lab 03/14/20 Unknown 03/14/20 06:15 Most recent lab results ABG pH 7.462 (7.320-7.450) H 03/13/20 14:23 ABG pCO2 46.6 mm Hg 03/13/20 04:00 ABG pO2 83.2 mm Hg (80.0-90.0) 03/13/20 04:00 ABG HCO3 27.4 mmol/L (20.0-26.0) H 03/13/20 04:00 ABG O2 Saturation 96.8 % (95.0-99.0) 03/13/20 04:00 Calcium 9.3 mg/dL (8.4-10.2) 03/14/20 06:15 Phosphorus 6.10 mg/dL (2.5-4.5) H 03/01/20 04:37 Magnesium 2.00 mg/dL (1.7-2.3) 03/07/20 05:03 Urine Creatinine 161.0 mg/dL (0.1-20.0) H 02/25/20 22:55 Urine Total Protein 150 mg/dL (5-11.8) H 02/25/20 22:55 Medications & Allergies - Medications Allergies/Adverse Reactions: Allergies No Known Allergies Allergy (Unverified 09/05/19 10:15) Home Medications: Home Medications Medication Instructions Recorded Confirmed Last Taken Type Amlodipine Besylate [Norvasc] 10 mg PO DAILY 09/05/19 02/24/20 09/04/19 History Furosemide [Lasix] 20 mg PO QDAY #30 tablet 09/05/19 02/24/20 Unknown Rx Lisinopril [Zestril] 5 mg PO DAILY #30 tablet 09/05/19 02/24/20 Unknown Rx Metoprolol [Lopressor TAB] 25 mg PO BID #60 tablet 09/05/19 02/24/20 Unknown Rx Active Medications: Generic Name Dose Route Start Last Admin Trade Name Freq PRN Reason Stop Dose Admin Acetaminophen 650 mg 02/26/20 16:23 03/14/20 03:23 Tylenol PO 650 mg Q4H PRN Administration Pain, Mild (1-3)/ Temp >100. Albuterol 2.5 mg 02/27/20 17:55 Proventil IH Q4HRT PRN Shortness Of Breath Albuterol/Ipratropium 1 ampul 02/28/20 12:17 03/14/20 13:01 Duoneb *Not For Prn Use* IH 1 ampul Q6HRT INDU Administration Amlodipine Besylate 10 mg 02/28/20 10:00 03/14/20 09:38 Amlodipine PO 10 mg QDAY INDU Administration Lipase/Protease/Amylase 1 each 03/01/20 08:46 Graciela Davis 10,500 Unit FEEDTUBE PRN PRN For Clogged Feeding Tube Aspirin 325 mg 03/11/20 10:00 03/14/20 09:38 Ecotrin PO 325 mg QDAY INDU Administration Dextrose 50 ml 02/29/20 08:00 03/01/20 00:20 D50w (25gm) Syringe IV 10 ml Q30MIN PRN Administration HYPOGLYCEMIA Protocol Epoetin Prosper 10,000 unit 03/12/20 10:00 Procrit IV NIKOLAY PRN hemodialysis Fentanyl 50 mcg 03/11/20 06:01 Sublimaze IV Q10MIN PRN ANALGESIA Glycopyrrolate 2 mg 03/14/20 14:00 Glycopyrrolate PO BID [facility] Heparin Sodium (Porcine) 5,000 unit 03/11/20 14:00 03/14/20 13:39 Heparin SUB-Q 5,000 unit Q8HR INDU Administration Hydralazine HCl 25 mg 03/04/20 14:00 03/14/20 13:39 Apresoline PO 25 mg Q8HR INDU Administration Hydrophilic Ointment 1 applic 03/11/20 06:01 Vaseline Lip Therapy TP Q2HR PRN Dry Lips MEROPENEM/NS 1 GRAM/100 ML 1 gram in 100 mls @ 100 mls/hr 03/03/20 18:00 03/13/20 17:47 Merrem/Ns 1 Gram/100 Ml IV 100 mls/hr QPM INDU Administration Protocol Sodium Chloride 100 mls @ 999 mls/hr 03/08/20 17:05 Nacl 0.9% IV NIKOLAY PRN Hypotension Fentanyl Citrate 2,000 mcg in 100 mls @ 4.55 mls/hr 03/11/20 07:00 03/14/20 03:21 Fentanyl Drip Premix IV 2 mcg/kg/hr TITR INDU 9.1 mls/hr Administration Protocol 1 MCG/KG/HR Labetalol HCl 10 mg 02/28/20 09:00 03/11/20 03:04 Labetalol IV 10 mg Q4H PRN Administration Hypertension Lansoprazole 30 mg 03/06/20 10:00 03/14/20 09:39 Prevacid Solutab FEEDTUBE 30 mg QDAY INDU Administration Lorazepam 1 mg 03/10/20 12:00 03/13/20 18:48 Ativan IV 1 mg Q4H PRN Administration AGITATION Metoprolol Tartrate 25 mg 02/28/20 10:00 03/14/20 09:38 Metoprolol PO 25 mg BID INDU Administration Morphine Sulfate 2 mg 03/11/20 05:13 Morphine IV Q4H PRN Pain, Moderate (4-6) Multi-Ingred Cream/Lotion/Oil/Oint 1 applic 03/11/20 06:01 Artificial Tears Ophth Oint OU Q4HR PRN Dry Eye(s) Nitroglycerin 0.4 mg 03/11/20 05:14 Nitrostat SL .Q5MIN PRN Chest Pain Ondansetron HCl 4 mg 02/24/20 06:45 02/25/20 23:33 Zofran IV 4 mg Q8H PRN Administration Nausea And Vomiting Quetiapine Fumarate 100 mg 03/06/20 10:00 03/14/20 09:44 Seroquel PO 100 mg QAM INDU Administration Quetiapine Fumarate 200 mg 03/06/20 22:00 03/13/20 21:54 Seroquel PO 200 mg QHS INDU Administration Scopolamine 1 each 03/04/20 16:00 03/13/20 09:39 Transderm-Scop TD 1 each Q3D INDU Administration Simple Syrup 15 ml 03/01/20 08:46 Simple Syrup FEEDTUBE PRN PRN Hypoglycemia Simple Syrup 30 ml 03/01/20 08:46 Simple Syrup FEEDTUBE PRN PRN Hypoglycemia Sodium Bicarbonate 325 mg 03/01/20 08:46 Sodium Bicarbonate FEEDTUBE PRN PRN For Clogged Feeding Tube Sodium Chloride 10 ml 02/24/20 10:00 03/14/20 09:45 Sodium Chloride Flush Syringe 10 Ml IV 10 ml BID INDU Administration Sodium Chloride 10 ml 02/24/20 06:45 03/10/20 09:06 Sodium Chloride Flush Syringe 10 Ml IV 10 ml PRN PRN Administration LINE FLUSH Tamsulosin HCl 0.4 mg 03/01/20 17:00 03/14/20 09:44 Flomax PO 0.4 mg QDAY INDU Administration
[2020-03-14] MEDS: GLYCOPYRROLATE 2 MG TAB PO SCH ×2 (14:50→21:57)
[2020-03-14] MEDS: MEROPENEM/NS 1 GRAM/100 ML 1 GRAM/100 ML BAG IV SCH (17:52)
[2020-03-14] MEDS: QUEtiapine 200 MG TAB PO SCH (21:57)
[2020-03-15] MEDS: fentaNYL DRIP Premix 2,000 MCG/100 ML BAG IV SCH (01:44)
[2020-03-15] MEDS: IPRATROPIUM/ALBUTEROL SULFATE 3 ML AMPUL.NEB IH SCH ×4 (02:15→20:14)
[2020-03-15 06:16] LABS: Hematocrit 24.7 % (30.3-42.9); Hemoglobin 8.1 gm/dl (10.1-14.3)
[2020-03-15] MEDS: hydrALAZINE 25 MG TAB PO SCH ×3 (06:16→21:55)
[2020-03-15] MEDS: HEPARIN 5,000 UNIT/1 ML VIAL SUB-Q SCH ×3 (06:16→21:54)
[2020-03-15 06:27] LABS: Calcium 9.8 mg/dL (8.4-10.2)
--- NOTE | 2020-03-15 08:36 | Progress Note ---
Assessment and Plan Assessment and plan: --Ac.hypoxic resp. failure /reintubated [03/11/20] Due to acute hypoxic respiratory failure early this morning continue ventilatory support, pulmonary critical following Wean as tolerated and extubate Patient was intubated initially 02/29/2020, extubated 03/10/2020 Again went into respiratory failure reintubated 03/11/2020 --Severe sepsis secondary to pneumonia and pancreatitis; Worsening bibasilar opacities on chest x-ray leukocytosis, tachycardia, tachypnea, fever, infiltrate on chest x-ray. Continue meropenem, total 14 days follow cultures, ID following. -- Acute severe pancreatitis Initial non-contrasted CT showed no evidence of necrosis or pseudocyst or abscess formation. Repeat CT 03/05 with interval worsening of acute pancreatitis without clear evidence of necrosis with increased jessica-pancreatic fat stranding and disorganized fluid, , GI following --JUANIS/worsening renal function Initiated hemodialysis 03/03/2020. Hemodialysis per schedule nephrology following --Severe metabolic encephalopathy Patient is more alert and awake sometimes agitated and confused -- Hypertensive emergency POA s/p Cardene drip, closely monitor Blood pressures uncontrolled IV labetalol, PRN --Anemia; hemoglobin 6.6 -7.8 No external evidence of bleeding Total 3 units of PRBC transfusion GI following, monitor H&H transfuse additional PRBC as needed --Chest pain/positive troponins;NSTEMI 2 Probably nonspecific , patient has acute kidney injury on dialysis continue current med management, follow serial cardiac enzymes, follow cardiology evaluation and recommendation EF 60-65% on ECHO -- Bilateral pleural effusions. Etiology secondary to above Compressive atelectasis --Alcohol withdrawal . Chronic alcohol use On CIWA protocol --Severe metabolic acidosis; Management per nephrology --Severe protein calorie malnutrition and hypoalbuminemia Nutrition supplements, nutrition consult and supportive care --Medical noncompliance Patient was counseled upon admission. -- DVT prophylaxis Patient placed on subcutaneous heparin. --Obesity; BMI 37.9 patient needs weight reduction when medically stable. -- Full code status Follow GI and pulmonary evaluation and recommendations We will closely monitor the patient and adjust the management as needed Restraints for agitation The high probability of a clinically significant, sudden or life threatening deterioration of the [GI, CVS, renal, respiratory and metabolic] system(s) required my full and direct attention, intervention and personal management. The aggregate critical care time was [32] minutes. This time is in addition to time spent performing reported procedures but includes the following: [x] Data Review and interpretation [x] Patient assessment and monitoring of vital signs [x] Documentation [x] Medication orders and management 03/15; patient is more alert and awake, remains intubated on vent, wean and extubate as tolerated DC planning per case management History Interval history: I have seen and examined the patient at the bedside this morning Patient's chart and medications reviewed Patient remains intubated on ventilatory support, more alert and awake Wants to go home Vital signs noted Hospitalist Physical - Constitutional Vitals: Temp Pulse Resp BP Pulse Ox 98.9 F 84 16 119/77 100 03/15/20 03:35 03/15/20 08:15 03/15/20 08:15 03/15/20 08:15 03/15/20 08:15 General appearance: Present: no acute distress, well-nourished, obese, other (Intubated) - EENT Eyes: Present: PERRL, EOM intact - Neck Neck: Present: supple, normal ROM - Respiratory Respiratory effort: normal Respiratory: bilateral: diminished, rhonchi, negative: rales, wheezing - Cardiovascular Rhythm: regular Heart Sounds: Present: S1 & S2 - Extremities Extremities: no ischemia, No edema - Abdominal General gastrointestinal: soft, non-tender, non-distended, normal bowel sounds - Integumentary Integumentary: Present: clear, warm - Psychiatric Psychiatric: appropriate mood/affect, cooperative - Neurologic Neurologic: moves all extremities HEART Score - HEART Score Troponin: Troponin T 0.085 ng/mL (0.00-0.029) H 03/11/20 14:31 Results - Labs CBC & Chem 7: 03/15/20 04:31 03/15/20 04:31 Labs: Laboratory Last Values WBC 13.7 K/mm3 (4.5-11.0) H 03/14/20 Unknown RBC 3.13 M/mm3 (3.65-5.03) L 03/14/20 Unknown Hgb 8.1 gm/dl (10.1-14.3) L 03/15/20 04:31 Hct 24.7 % (30.3-42.9) L 03/15/20 04:31 MCV 76 fl (79-97) L 03/14/20 Unknown MCH 25 pg (28-32) L 03/14/20 Unknown MCHC 33 % (30-34) 03/14/20 Unknown RDW 21.6 % (13.2-15.2) H 03/14/20 Unknown Plt Count 729 K/mm3 (140-440) H 03/15/20 04:31 Lymph % (Auto) 16.3 % (13.4-35.0) 03/14/[address] [place] % (Auto) 7.0 % (0.0-7.3) 03/14/20 Unknown Eos % (Auto) 4.1 % (0.0-4.3) 03/14/20 Unknown Baso % (Auto) 1.1 % (0.0-1.8) 03/14/20 Unknown Lymph # (Auto) 2.2 K/mm3 (1.2-5.4) 03/14/[address] [place] # (Auto) 1.0 K/mm3 (0.0-0.8) H 03/14/20 Unknown Eos # (Auto) 0.6 K/mm3 (0.0-0.4) H 03/14/20 Unknown Baso # (Auto) 0.1 K/mm3 (0.0-0.1) 03/14/20 Unknown Add Manual Diff Complete 03/11/20 04:32 Total Counted 100 03/11/20 04:32 Seg Neutrophils % 71.5 % (40.0-70.0) H 03/14/20 Unknown Seg Neuts % (Manual) 81.0 % (40.0-70.0) H 03/11/20 04:32 Band Neutrophils % 1.0 % 03/11/20 04:32 Lymphocytes % (Manual) 8.0 % (13.4-35.0) L 03/11/20 04:32 Reactive Lymphs % (Man) 0 % 03/11/20 04:32 Monocytes % (Manual) 8.0 % (0.0-7.3) H 03/11/20 04:32 Eosinophils % (Manual) 1.0 % (0.0-4.3) 03/11/20 04:32 Basophils % (Manual) 1.0 % (0.0-1.8) 03/11/20 04:32 Metamyelocytes % 0 % 03/11/20 04:32 Myelocytes % 0 % 03/11/20 04:32 Promyelocytes % 0 % 03/11/20 04:32 Blast Cells % 0 % 03/11/20 04:32 Nucleated RBC % Not Reportable 03/11/20 04:32 Seg Neutrophils # 9.8 K/mm3 (1.8-7.7) H 03/14/20 Unknown Seg Neutrophils # Man 18.1 K/mm3 (1.8-7.7) H 03/11/20 04:32 Band Neutrophils # 0.2 K/mm3 03/11/20 04:32 Lymphocytes # (Manual) 1.8 K/mm3 (1.2-5.4) 03/11/20 04:32 Abs React Lymphs (Man) 0.0 K/mm3 03/11/20 04:32 Monocytes # (Manual) 1.8 K/mm3 (0.0-0.8) H 03/11/20 04:32 Eosinophils # (Manual) 0.2 K/mm3 (0.0-0.4) 03/11/20 04:32 Basophils # (Manual) 0.2 K/mm3 (0.0-0.1) H 03/11/20 04:32 Metamyelocytes # 0.0 K/mm3 03/11/20 04:32 Myelocytes # 0.0 K/mm3 03/11/20 04:32 Promyelocytes # 0.0 K/mm3 03/11/20 04:32 Blast Cells # 0.0 K/mm3 03/11/20 04:32 WBC Morphology Not Reportable 03/11/20 04:32 Hypersegmented Neuts Not Reportable 03/11/20 04:32 Hyposegmented Neuts Not Reportable 03/11/20 04:32 Hypogranular Neuts Not Reportable 03/11/20 04:32 Smudge Cells Not Reportable 03/11/20 04:32 Toxic Granulation Not Reportable 03/11/20 04:32 Toxic Vacuolation Not Reportable 03/11/20 04:32 Dohle Bodies Not Reportable 03/11/20 04:32 Pelger-Huet Anomaly Not Reportable 03/11/20 04:32 Maia Rods Not Reportable 03/11/20 04:32 Platelet Estimate Consistent w auto 03/11/20 04:32 Clumped Platelets Not Reportable 03/11/20 04:32 Plt Clumps, EDTA Not Reportable 03/11/20 04:32 Large Platelets Not Reportable 03/11/20 04:32 Giant Platelets Not Reportable 03/11/20 04:32 Platelet Satelliting Not Reportable 03/11/20 04:32 Plt Morphology Comment Not Reportable 03/11/20 04:32 RBC Morphology Not Reportable 03/11/20 04:32 Dimorphic RBCs Not Reportable 03/11/20 04:32 Polychromasia Not Reportable 03/11/20 04:32 Hypochromasia 1+ 03/11/20 04:32 Poikilocytosis Not Reportable 03/11/20 04:32 Anisocytosis 1+ 03/11/20 04:32 Microcytosis Not Reportable 03/11/20 04:32 Macrocytosis Not Reportable 03/11/20 04:32 Spherocytes Not Reportable 03/11/20 04:32 Pappenheimer Bodies Not Reportable 03/11/20 04:32 Sickle Cells Not Reportable 03/11/20 04:32 Target Cells Not Reportable 03/11/20 04:32 Tear Drop Cells Rare 03/11/20 04:32 Ovalocytes Few 03/11/20 04:32 Helmet Cells Not Reportable 03/11/20 04:32 [place] Bodies Not Reportable 03/11/20 04:32 [place] Rings Not Reportable 03/11/20 04:32 [place] Cells Not Reportable 03/11/20 04:32 Bite Cells Not Reportable 03/11/20 04:32 Crenated Cell Not Reportable 03/11/20 04:32 Elliptocytes Not Reportable 03/11/20 04:32 Acanthocytes (Spur) Not Reportable 03/11/20 04:32 Rouleaux Not Reportable 03/11/20 04:32 Hemoglobin C Crystals Not Reportable 03/11/20 04:32 Schistocytes Not Reportable 03/11/20 04:32 Malaria parasites Not Reportable 03/11/20 04:32 Edgardo Bodies Not Reportable 03/11/20 04:32 Hem Pathologist Commnt No 03/11/20 04:32 PT 14.1 Sec. (12.2-14.9) 03/11/20 07:31 INR 1.07 (0.87-1.13) 03/11/20 07:31 APTT 32.0 Sec. (24.2-36.6) 03/11/20 07:31 ABG pH 7.462 (7.320-7.450) H 03/13/20 14:23 POC ABG pCO2 40.5 mmHg (32.0-48.0) 03/13/20 14:23 ABG pCO2 46.6 mm Hg 03/13/20 04:00 POC ABG pO2 75.1 mmHg (83-108) L 03/13/20 14:23 ABG pO2 83.2 mm Hg (80.0-90.0) 03/13/20 04:00 POC ABG HCO3 28.3 03/13/20 14: ABG HCO3 27.4 mmol/L (20.0-26.0) H 03/13/20 04:00 ABG O2 Saturation 96.8 % (95.0-99.0) 03/13/20 04:00 ABG O2 Content 11.7 (0.0-44) 03/13/20 04:00 POC ABG Base Excess 4.2 03/13/20 14:23 ABG Base Excess 2.0 mmol/L (-2.0-3.0) 03/13/20 04:00 ABG Hemoglobin 8.9 (12.0-17.5) L 03/13/20 14:23 ABG Oxyhemoglobin 90.5 (94-98) L 03/06/20 04:41 ABG Carboxyhemoglobin 1.8 % (0.0-5.0) 03/13/20 04:00 ABG Methemoglobin 0.5 % (0.0-1.5) 03/13/20 04:00 ABG Sodium 135.9 mmol/L (136.0-145.0) L 03/13/20 14:23 ABG Potassium 3.8 mmol/L (3.40-4.50) 03/13/20 14:23 ABG Chloride 98.0 mmol/L (98-107) 03/13/20 14:23 ABG Glucose 89 mg/dL (65-95) 03/13/20: Oxyhemoglobin 94.6 % (95.0-99.0) L 03/13/20 04:00 Carboxyhemoglobin 1 (0.5-1.5) 03/06/20 04:41 FiO2 30.0 03/13/20 14:23 Sodium 139 mmol/L (137-145) 03/15/20 04:31 Potassium 4.3 mmol/L (3.6-5.0) 03/15/20 04:31 Chloride 95.9 mmol/L (98-107) L 03/15/20 04:31 Carbon Dioxide 26 mmol/L (22-30) 03/15/20 04:31 Anion Gap 21 mmol/L 03/15/20 04:31 BUN 60 mg/dL (7-17) H 03/15/20 04:31 Creatinine 5.6 mg/dL (0.6-1.2) H 03/15/20 04:31 Estimated GFR 10 ml/min 03/15/20 04:31 BUN/Creatinine Ratio 11 % 03/15/20 04:31 Glucose 86 mg/dL (65-100) 03/15/20 04:31 POC Glucose 96 (70-105) 03/15/20 05:49 Lactic Acid 0.90 mmol/L (0.7-2.0) 02/27/20 19:33 Calcium 9.8 mg/dL (8.4-10.2) 03/15/20 04:31 Phosphorus 6.10 mg/dL (2.5-4.5) H 03/01/20 04:37 Magnesium 2.00 mg/dL (1.7-2.3) 03/07/20 05:03 Total Bilirubin 0.30 mg/dL (0.1-1.2) 03/11/20 04:32 Direct Bilirubin 0.6 mg/dL (0-0.2) H 03/05/20 06:00 Indirect Bilirubin 0.3 mg/dL 03/05/20 06:00 AST 41 units/L (5-40) H 03/11/20 04:32 ALT 17 units/L (7-56) 03/11/20 04:32 Alkaline Phosphatase 103 units/L (35-129) 03/11/20 04:32 Troponin T 0.085 ng/mL (0.00-0.029) H 03/11/20 14:31 C-Reactive Protein 36.50 mg/dL (0.00-1.30) H 03/01/20 11:06 Serum Total Protein 6.3 g/dL (6.1-8.1) 02/26/20 04:39 Total Protein 7.8 g/dL (6.3-8.2) 03/11/20 04:32 Albumin 2.7 g/dL (3.9-5) L 03/11/20 04:32 Albumin/Globulin Ratio 0.5 % 03/11/20 04:32 Yezlt-9-Dnnmnjalm 0.7 g/dL (0.2-0.3) H 02/26/20 04:39 Ktdwx-5-Upelwdmtr 0.8 g/dL (0.5-0.9) 02/26/20 04:39 Beta Globulins 0.4 g/dL (0.2-0.5) 02/26/20 04:39 Gamma Globulins 1.2 g/dL (0.8-1.7) 02/26/20 04:39 Abnorm Protein Band 1 see below 02/26/20 04:39 PEP Interpretation see below H 02/26/20 04:39 Triglycerides 247 mg/dL (2-149) H 03/11/20 14:31 Cholesterol 158 mg/dL (50-199) 03/11/20 14:31 LDL Cholesterol Direct 80 mg/dL (50-130) 03/11/20 14:31 HDL Cholesterol 28 mg/dL (40-59) L 03/11/20 14:31 Cholesterol/HDL Ratio 5.64 % 03/11/20 14:31 Lipase 72 units/L (13-60) H 03/04/20 19:00 HCG, Qual Negative (Negative) 02/24/20 02:53 PTH Intact 911.3 pg/mL (15-65) H 02/26/20 08:15 Arterial Blood Glucose 89 mg/dL (65-95) 03/13/20 14:23 Arterial Blood Ionized Calcium 4.5 mg/dL (4.6-5.3) L 03/13/20 14:23 Urine Color Yellow (Yellow) 02/24/20 Unknown Urine Turbidity Clear (Clear) 02/24/20 Unknown Urine pH 6.0 (5.0-7.0) 02/24/20 Unknown Ur Specific Bertrand 1.020 (1.003-1.030) 02/24/20 Unknown Urine Protein >500 mg/dL (Negative) 02/24/20 Unknown Urine Glucose (UA) 50 mg/dL (Negative) 02/24/20 Unknown Urine Ketones Neg mg/dL (Negative) 02/24/20 Unknown Urine Blood Lg (Negative) 02/24/20 Unknown Urine Nitrite Neg (Negative) 02/24/20 Unknown Urine Bilirubin Neg (Negative) 02/24/20 Unknown Urine Urobilinogen < 2.0 mg/dL (<2.0) 02/24/20 Unknown Ur Leukocyte Esterase Neg (Negative) 02/24/20 Unknown Urine WBC (Auto) 11.0 /HPF (0.0-6.0) H 02/24/20 Unknown Urine RBC (Auto) 149.0 /HPF (0.0-6.0) 02/24/20 Unknown U Epithel Cells (Auto) 5.0 /HPF (0-13.0) 02/24/20 Unknown Urine Bacteria (Auto) 1+ /HPF (Negative) 02/24/20 Unknown Urine Mucus Few /HPF 02/24/20 Unknown Urine Creatinine 161.0 mg/dL (0.1-20.0) H 02/25/20 22:55 Protein/Creatinin Ratio 0.93 02/25/20 22:55 Urine Total Protein 150 mg/dL (5-11.8) H 02/25/20 22:55 ZINA Screen Positive (Negative) H 02/26/20 04:39 Proteinase 3 (PR3) Ab <1.0 AI (<1.0) 02/26/20 04:39 Myeloperoxidase Ab <1.0 AI (<1.0) 02/26/20 04:39 Double Strand DNA Ab See scanned result 03/06/20 14:46 Complement C3 153 mg/dL (83-193) 02/26/20 04:39 Complement C4 35 mg/dL (15-57) 02/26/20 04:39 Coronavirus (PCR) Negative (Negative) 03/09/20 09:12 Hepatitis A IgM Ab Non-reactive (NonReactive) 03/03/20 12:34 Hep Bs Antigen Non-reactive (Negative) 03/03/20 12:34 Hep B Core IgM Ab Non-reactive (NonReactive) 03/03/20 12:34 Hepatitis C Antibody Non-reactive (NonReactive) 03/03/20 12:34 Blood Type AB POSITIVE 03/13/20 08:45 Antibody Screen Negative 03/13/20 08:45 Crossmatch See Detail 03/13/20 08:45 - Diagnostic Impressions Diagnostic Impressions: Echocardiogram 02/26/20 09:11 Transthoracic Echocardiogram Indication: Cardiomegaly BP: 149/92 HR: 122 Conclusions *Global left ventricular systolic function is normal. *The estimated ejection fraction is 60-65%. *Moderate to severe concentric left ventricular hypertrophy is observed. *The left atrium is mild to moderately dilated. *The aortic valve leaflets are moderately thickened. *A mean gradient of 22.39 mmHg across the outflow tract is likely not due to but hyperdynamic flow and LVH. *There is trace tricuspid regurgitation. Findings Left Ventricle: The left ventricular chamber size is normal. Moderate to severe concentric left ventricular hypertrophy is observed. Global left ventricular systolic function is normal. The estimated ejection fraction is 60-65%. Left Atrium: The left atrium is mild to moderately dilated. Right Ventricle: The right ventricular cavity size is normal. The right ventricular global systolic function is normal. Right Atrium: The right atrial cavity size is normal. Aortic Valve: The aortic valve leaflets are moderately thickened. There is no evidence of aortic regurgitation. The mean gradient of the aortic valve is 22.39 mmHg. Mitral Valve: The mitral valve leaflets are mildly thickened. There is trace of mitral regurgitation. There is no evidence of mitral stenosis. Tricuspid Valve: There is trace tricuspid regurgitation. No pulmonary hypertension is noted. Pulmonic Valve: There is trace pulmonic regurgitation. Pericardium: There is no pericardial effusion. Aorta: There is no dilatation of the ascending aorta. There is no dilatation of the aortic root. Venous: The inferior vena cava appears normal in size. Measurements Chambers 2D Name Value Normal Range IVSd (2D) 1.8 cm (0.6 - 1.1) LVPWd (2D) 1.74 cm (0.6 - 1.1) LVIDd (2D) 4.57 cm (3.7 - 5.6) LVIDs (2D) 2.73 cm (2 - 3.8) LV FS (2D) 40.27 % - EF Teichholz (2D) 71.04 % - Ao root diameter (2D) 2.79 cm (2 - 3.7) Volumes/Mass Name Value Normal Range LA ESV SP 4CH (A/L) 54.18 ml - LA ESV SP 2CH (A/L) 61.84 ml - LA ESV BP (A/L) 58.1 ml - LA ESV BP (A/L) index 30.74 ml/m2 - LA ESV SP 4CH (MOD) 52.89 ml - LA ESV SP 2CH (MOD) 60.65 ml - LA ESV BP (MOD) 56.77 ml - LA ESV BP (MOD) index 30.04 ml/m2 - LV EDV SP 4CH (MOD) 164.2 ml - LV ESV SP 4CH (MOD) 58.04 ml - EF SP 4CH (MOD) 64.65 % - Diastolic/Systolic Function Name Value Normal Range MV E-wave Vmax 1.38 m/sec - MV deceleration time 92.78 msec - MV A-wave Vmax 1.44 m/sec - MV E:A ratio 0.95 ratio - Aortic Valve Name Value Normal Range AV Vmax 3.08 m/sec - AV VTI 36.74 cm - AV peak gradient 37.98 mmHg - AV mean gradient 22.39 mmHg - LVOT diameter 2.01 cm - LVOT Vmax 2.45 m/sec - LVOT VTI 29.85 cm - LVOT peak gradient 24.04 mmHg - LVOT mean gradient 11.11 mmHg - SV LVOT 94.73 ml - JADA (continuity Vmax) 2.52 cm2 - JADA (continuity VTI) 2.58 cm2 - Ascending Ao 2.64 cm - Mitral Valve Name Value Normal Range MV PHT 37.88 msec - MVA (PHT) 5.81 cm2 - Tricuspid Valve Name Value Normal Range IVC diameter 1.93 cm (1.2 - 2.3) Pulmonic Valve/Qp:Qs Name Value Normal Range PV Vmax 2.83 m/sec - PV VTI 45.88 cm - PV peak gradient 32.06 mmHg - PV mean gradient 16.11 mmHg - DC end-diastolic Vmax 0.81 m/sec - RVOT Vmax 1.82 m/sec - RVOT VTI 25.12 cm - RVOT peak gradient 13.3 mmHg - Franks/IV: Voiding Method Incontinent IV Catheter Type [Right VAS Cath Internal Jugular] IV Catheter Type [Left Upper INT / Saline Lock arm] IV Catheter Type [Right Upper INT / Saline Lock arm] IV Catheter Type [Right INT / Saline Lock Forearm] IV Catheter Type [Right Wrist] Peripheral IV IV Catheter Type [Right Peripheral IV Antecubital] Active Medications - Current Medications Current Medications: Generic Name Dose Route Start Last Admin Trade Name Freq PRN Reason Stop Dose Admin Acetaminophen 650 mg 02/26/20 16:23 03/14/20 22:03 Tylenol PO 650 mg Q4H PRN Administration Pain, Mild (1-3)/ Temp >100. Albuterol 2.5 mg 02/27/20 17:55 Proventil IH Q4HRT PRN Shortness Of Breath Albuterol/Ipratropium 1 ampul 02/28/20 12:17 03/15/20 02:15 Duoneb *Not For Prn Use* IH 1 ampul Q6HRT INDU Administration Amlodipine Besylate 10 mg 02/28/20 10:00 03/14/20 09:38 Amlodipine PO 10 mg QDAY INDU Administration Lipase/Protease/Amylase 1 each 03/01/20 08:46 Pancreaze 10,500 Unit FEEDTUBE PRN PRN For Clogged Feeding Tube Aspirin 325 mg 03/11/20 10:00 03/14/20 09:38 Ecotrin PO 325 mg QDAY INDU Administration Dextrose 50 ml 02/29/20 08:00 03/01/20 00:20 D50w (25gm) Syringe IV 10 ml Q30MIN PRN Administration HYPOGLYCEMIA Protocol Epoetin Prosper 10,000 unit 03/12/20 10:00 Procrit IV NIKOLAY PRN hemodialysis Fentanyl 50 mcg 03/11/20 06:01 Sublimaze IV Q10MIN PRN ANALGESIA Glycopyrrolate 2 mg 03/14/20 14:00 03/14/20 21:57 Glycopyrrolate PO 2 mg BID INDU Administration Heparin Sodium (Porcine) 5,000 unit 03/11/20 14:00 03/15/20 06:16 Heparin SUB-Q 5,000 unit Q8HR INDU Administration Hydralazine HCl 25 mg 03/04/20 14:00 03/15/20 06:16 Apresoline PO 25 mg Q8HR INDU Administration Hydrophilic Ointment 1 applic 03/11/20 06:01 Vaseline Lip Therapy TP Q2HR PRN Dry Lips MEROPENEM/NS 1 GRAM/100 ML 1 gram in 100 mls @ 100 mls/hr 03/03/20 18:00 03/14/20 17:52 Merrem/Ns 1 Gram/100 Ml IV 100 mls/hr QPM INDU Administration Protocol Sodium Chloride 100 mls @ 999 mls/hr 03/08/20 17:05 Nacl 0.9% IV NIKOLAY PRN Hypotension Fentanyl Citrate 2,000 mcg in 100 mls @ 4.55 mls/hr 03/11/20 07:00 03/15/20 01:44 Fentanyl Drip Premix IV 2 mcg/kg/hr TITR INDU 9.1 mls/hr Administration Protocol 1 MCG/KG/HR Labetalol HCl 10 mg 02/28/20 09:00 03/11/20 03:04 Labetalol IV 10 mg Q4H PRN Administration Hypertension Lansoprazole 30 mg 03/06/20 10:00 03/14/20 09:39 Prevacid Solutab FEEDTUBE 30 mg QDAY INDU Administration Lorazepam 1 mg 03/10/20 12:00 03/13/20 18:48 Ativan IV 1 mg Q4H PRN Administration AGITATION Metoprolol Tartrate 25 mg 02/28/20 10:00 03/14/20 21:57 Metoprolol PO 25 mg BID INDU Administration Morphine Sulfate 2 mg 03/11/20 05:13 Morphine IV Q4H PRN Pain, Moderate (4-6) Multi-Ingred Cream/Lotion/Oil/Oint 1 applic 03/11/20 06:01 Artificial Tears Ophth Oint OU Q4HR PRN Dry Eye(s) Nitroglycerin 0.4 mg 03/11/20 05:14 Nitrostat SL .Q5MIN PRN Chest Pain Ondansetron HCl 4 mg 02/24/20 06:45 02/25/20 23:33 Zofran IV 4 mg Q8H PRN Administration Nausea And Vomiting Quetiapine Fumarate 100 mg 03/06/20 10:00 03/14/20 09:44 Seroquel PO 100 mg QAM INDU Administration Quetiapine Fumarate 200 mg 03/06/20 22:00 03/14/20 21:57 Seroquel PO 200 mg QHS INDU Administration Scopolamine 1 each 03/04/20 16:00 03/13/20 09:39 Transderm-Scop TD 1 each Q3D INDU Administration Simple Syrup 15 ml 03/01/20 08:46 Simple Syrup FEEDTUBE PRN PRN Hypoglycemia Simple Syrup 30 ml 03/01/20 08:46 Simple Syrup FEEDTUBE PRN PRN Hypoglycemia Sodium Bicarbonate 325 mg 03/01/20 08:46 Sodium Bicarbonate FEEDTUBE PRN PRN For Clogged Feeding Tube Sodium Chloride 10 ml 02/24/20 10:00 03/14/20 21:58 Sodium Chloride Flush Syringe 10 Ml IV 10 ml BID INDU Administration Sodium Chloride 10 ml 02/24/20 06:45 03/10/20 09:06 Sodium Chloride Flush Syringe 10 Ml IV 10 ml PRN PRN Administration LINE FLUSH Tamsulosin HCl 0.4 mg 03/01/20 17:00 03/14/20 09:44 Flomax PO 0.4 mg QDAY INDU Administration Nutrition/Malnutrition Assess - Dietary Evaluation Nutrition/Malnutrition Findings: Nutrition Notes Start: 02/24/20 13:42 Freq: Status: Active Protocol: Document 03/13/20 11:20 AVINASH (Rec: 03/13/20 11:24 AVINASH [id number]) Co-Sign 03/13/20 11:20 Nutrition Notes Initial or Follow up Reassessment Current Diagnosis Acute Kidney Injury,Sepsis, Hypertension,Respiratory Failure,Hyperlipidemia Other Pertinent Diagnosis Acute pancreatitis, HD Current Diet Nepro 1.8 at 35ml/hr Labs/Tests No recent labs Pertinent Medications Reviewed Height 5 ft 1 in Weight 91 kg [place] Body Weight (kg) 47.72 BMI 37.9 Weight Status Obese Subjective/Other Information F/U for TF restart/tolerance. TF running at goal rate and pt tolerating. Percent of energy/protein needs met: 100%/70% Burn Absent Trauma Absent GI Symptoms None Current % PO Negligible Minimum of two criteria No Fluid Accumulation Moderate to Severe (severe) #2 Nutrition Diagnosis Inadequate oral intake Diagnosis Progress(for reassessment Continues documentation) #1 Nutrition Diagnosis Food and nutrition-related knowledge deficit Diagnosis Progress(for reassessment Continues documentation) Is patient on ventilator? Yes Is Patient Ambulatory and/or Out of Bed No [facility] 1823.604 Kcal/Kg value to use for calculation 16 Approximate Energy Requirements Using 1456 kcal/Kg Calculation Used for Recommendations Kcal/kg Additional Notes Pro: 96g (>2g/kg IBW) Fluid: 1ml/kcal Nutrition Intervention Change Diet Order: Continue TF Nutrition Support: Nepro 1.8 at 35ml/hr Flush 150ml q4h Kcal 1,512 Protein (gm) 68 Fluid (mL) 611 Goal #1 TF tolerance Goal #2 Meet at least 80% of energy and protein needs via TF Anticipated Discharge Needs: Undetermined at this time Follow-Up By: 03/17/20 Additional Comments F/U for TF tolerance
--- NOTE | 2020-03-15 10:03 | XRay Report ---
CHEST 1 VIEW 03/15/2020 8:54 AM INDICATION / CLINICAL INFORMATION: follow up respiratory failure. COMPARISON: 03/14/2020. FINDINGS: SUPPORT DEVICES: Unchanged. HEART / MEDIASTINUM: Stable. LUNGS / PLEURA: No significant pulmonary or pleural abnormality. No pneumothorax. ADDITIONAL FINDINGS: No significant additional findings. IMPRESSION: 1. No significant change. Signer Name: Russ Ríos MD Signed: 03/15/2020 9:59 AM Workstation Name: [id number]
[2020-03-15] MEDS: amLODIPine 10 MG TAB PO SCH (10:52)
[2020-03-15] MEDS: METOPROLOL TARTRATE 25 MG TAB PO SCH ×2 (10:52→21:56)
[2020-03-15] MEDS: TAMSULOSIN 0.4 MG CAP PO SCH (10:52)
[2020-03-15] MEDS: QUEtiapine 100 MG TAB PO SCH (10:52)
[2020-03-15] MEDS: GLYCOPYRROLATE 2 MG TAB PO SCH ×2 (10:53→21:56)
[2020-03-15] MEDS: LANSOPRAZOLE 30 MG SOLUTAB FEEDTUBE SCH (10:53)
[2020-03-15] MEDS: ASPIRIN 325 MG TAB PO SCH (11:29)
--- NOTE | 2020-03-15 12:09 | Progress Note ---
Assessment and Plan Cultures: Urine culture grew 10-100,000 usual xavier. Blood culture 02/26/2020 no growth 02/29/2020 sputum culture: rare usual xavier 03/06/2020 blood culture: no growth 03/07/2020 sputum culture: Ana Luisa 03/11/2020 ET aspirate: no growth thus far Assessment: 39 years old female with history of hypertension, previous kidney stone, hyperlipidemia and obesity admitted on 02/24/2020 due to a week history of severe epigastric abdominal pain radiated to the right flank and back: #Acute sepsis: Likely secondary to severe pancreatitis and related complications. Remains critically ill. #Acute severe pancreatitis: Unclear etiology. Initial non-contrasted CT showed no evidence of necrosis or pseudocyst or abscess formation. Repeat CT 03/05 with interval worsening of acute pancreatitis without clear evidence of necrosis, however was done without IV contrast due to her renal function. Ongoing fevers likely to due severe pancreatitis and ?related complications #Acute renal failure: now requiring dialysis. Nephrology on board. #Acute respiratory hypoxic failure: re-intubated 03/11/2020, back on the vent. #?Alcohol abuse Recommendations: - continue with IV Meropenem, renally dosed, D13 dose today, probably stop at 14 days depending on clinical status - Monitor fever, if more than 100 please obtain blood cultures Dr. Raphael atkinson tomorrow Nallely Ty MD Infectious Diseases [employer] Analy[employer] [facility] M [phone] O [phone] Subjective Date of service: 03/15/20 Principal diagnosis: HTNsive urgency; Morbid obesity; Ac. pancreatitis; Abdo gold pain Interval history: Patient remains intubated, alert, follows commands, isolated 100.1 fever Objective - Exam Narrative Exam: General appearance: Alert no acute distress intubated Eyes: anicteric sclerae, limited HENT: Atraumatic; oropharynx endotracheal tube in place Lungs: Diminished breath sounds bilaterally CV: RRR Abdomen: Soft, distended, nontender Extremities: no edema, no cyanosis Skin: No rash. Psych: Nonagitated Neuro: Alert follows commands - Constitutional Vitals: Vital Signs Temp Pulse Resp BP Pulse Ox 98.7 F 91 H 19 138/97 99 03/15/20 08:00 03/15/20 10:52 03/15/20 10:15 03/15/20 10:52 03/15/20 10:15 Temperature -Last 24 Hours Temperature 98.7 F Temperature 98.9 F Temperature 99 F Temperature 100.1 F Temperature 97.8 F - Labs CBC & Chem 7: 03/15/20 04:31 03/15/20 04:31 Labs: Abnormal lab results 03/14/20 03/15/20 03/15/20 Range/Units Unknown 04:31 04:31 WBC 13.7 H (4.5-11.0) K/mm3 RBC 3.13 L (3.65-5.03) M/mm3 Hgb 7.7 L 8.1 L (10.1-14.3) gm/dl Hct 23.8 L 24.7 L (30.3-42.9) % MCV 76 L (79-97) fl MCH 25 L (28-32) pg RDW 21.6 H (13.2-15.2) % Plt Count 662 H 729 H (140-440) K/mm3 Toombs # (Auto) 1.0 H (0.0-0.8) K/mm3 Eos # (Auto) 0.6 H (0.0-0.4) K/mm3 Seg Neutrophils % 71.5 H (40.0-70.0) % Seg Neutrophils # 9.8 H (1.8-7.7) K/mm3 Chloride 95.9 L (98-107) mmol/L BUN 60 H (7-17) mg/dL Creatinine 5.6 H (0.6-1.2) mg/dL
--- NOTE | 2020-03-15 12:54 | Progress Note ---
Assessment and Plan Acute Hypoxemic Respiratory Failure on MVS Severe Sepsis Acute Toxic-Metabolic Encephalopathy Hypertensive urgency Morbid obesity Acute pancreatitis, abdominal pain Medical non compliance Oropharyngeal Dysphagia VAP bundle addressed Trial SBT on PS 11/08, CXR reviewed- improved pulmaonry infiltrates Obtained Weaning parameters- NIF -25, RSBI 60, Vc 536, Vt 436 and Ve 8.8 Plan to liberate from MVS, with BIPAP support at night Bedsid swallow evaluation Continue all care as documented below - HD/UF for toxin and volume clearance per Renal service, - daily SAT and SBT assessment as tolerated - on minimal vent settings at this time - continue current vent settings - continue to hold fentanyl - accuchecks with glycemic control per SSI (While critically ill target blood glucose of 140-180 mg/dL; avoid hypoglycemia) - sedation for target RASS -1 to -2 - continue to wean supplemental oxygen for target O2 sats > 90% - VAP bundle addressed - continue lung protective strategies - continue bronchodilators with pulmonary hygiene per RT - wean per pulmonary driven protocols otherwise - continue enteral nutritiuon at goal rate as tolerated - complete Meropenem; de-escalate per ID rec's - JUANIS per can operator, DISTRICT ADMINISTRATIVE ASSISTANT - VTE prophylaxis-Heparin - prn Analgesia per CPOT score - avoid nephrotoxins, renally dose all medications - Maintenance of sleep-wake cycle, avoid delirium - Stress ulcer prophylaxis-PPI - mobility protocol, off loading and frequent turning for pressure ulcer prevention - Monitor hemodynamics closely CONDITION: CRITICAL PROGNOSIS: GUARDED CODE STATUS: FULL CODE The high probability of a clinically significant, sudden or life-threatening deterioration of the [respiratory, cardiovascular & GI] system(s) required my full and direct attention, intervention and personal management. The aggregate critical care time was [32] minutes without overlap. Time includes spent on; [x] Data Review and interpretation [x] Patient assessment and monitoring of vital signs [x] Documentation [x] Medication orders and management Subjective Date of service: 03/15/20 Principal diagnosis: HTNsive urgency; Morbid obesity; Ac. pancreatitis; Abdominal pain Interval history: Patient is seen today for: Acute hypoxemic respiratory failure on MVS; Hypertensive urgency; Morbid obesity; Acute pancreatitis; abdominal pain; Medical non compliance; Acute Toxic Metabolic Encephalopathy Seen and examined at bedside; 24hour events reviewed; nursing and respiratory care staff consulted; no adverse overnight events reported to me; resting peacefully in bed; remains on MVS On Klonipin, Fentanyl off on SBT PSV 11/08. Objective Vital Signs - 12hr 03/15/20 03/15/20 03/15/20 01:00 01:15 01:30 Temperature Pulse Rate 91 H 87 93 H Pulse Rate [ Anterior Bilateral Throughout] Pulse Rate [ From Monitor] Pulse Rate [ Left Upper Lobe ] Respiratory 12 15 20 Rate Respiratory Rate [Abdomen] Respiratory Rate [Anterior Bilateral Throughout] Respiratory Rate [Left Upper Lobe] Blood Pressure 129/83 131/80 150/98 O2 Sat by Pulse 100 100 100 Oximetry 03/15/20 03/15/20 03/15/20 01:45 02:00 02:15 Temperature Pulse Rate 106 H 93 H 92 H Pulse Rate [ Anterior Bilateral Throughout] Pulse Rate [ From Monitor] Pulse Rate [ Left Upper Lobe ] Respiratory 26 H 17 15 Rate Respiratory Rate [Abdomen] Respiratory Rate [Anterior Bilateral Throughout] Respiratory Rate [Left Upper Lobe] Blood Pressure 154/82 127/80 127/80 O2 Sat by Pulse 100 100 100 Oximetry 03/15/20 03/15/20 03/15/20 02:16 02:30 02:45 Temperature Pulse Rate 90 88 Pulse Rate [ Anterior Bilateral Throughout] Pulse Rate [ From Monitor] Pulse Rate [ 91 H Left Upper Lobe ] Respiratory 13 16 Rate Respiratory Rate [Abdomen] Respiratory Rate [Anterior Bilateral Throughout] Respiratory 17 Rate [Left Upper Lobe] Blood Pressure 106/71 124/76 O2 Sat by Pulse 98 100 Oximetry 03/15/20 03/15/20 03/15/20 03:00 03:15 03:30 Temperature Pulse Rate 87 85 85 Pulse Rate [ Anterior Bilateral Throughout] Pulse Rate [ From Monitor] Pulse Rate [ Left Upper Lobe ] Respiratory 15 14 15 Rate Respiratory Rate [Abdomen] Respiratory Rate [Anterior Bilateral Throughout] Respiratory Rate [Left Upper Lobe] Blood Pressure 107/72 118/71 114/65 O2 Sat by Pulse 100 100 100 Oximetry 03/15/20 03/15/20 03/15/20 03:35 03:45 03:46 Temperature 98.9 F Pulse Rate 84 84 Pulse Rate [ Anterior Bilateral Throughout] Pulse Rate [ From Monitor] Pulse Rate [ Left Upper Lobe ] Respiratory 14 Rate Respiratory Rate [Abdomen] Respiratory Rate [Anterior Bilateral Throughout] Respiratory Rate [Left Upper Lobe] Blood Pressure 115/72 115/72 O2 Sat by Pulse 100 100 Oximetry 03/15/20 03/15/2020 04:00 04:15 04:31 Temperature Pulse Rate 84 85 88 Pulse Rate [ Anterior Bilateral Throughout] Pulse Rate [ 85 From Monitor] Pulse Rate [ Left Upper Lobe ] Respiratory 16 16 16 Rate Respiratory Rate [Abdomen] Respiratory Rate [Anterior Bilateral Throughout] Respiratory Rate [Left Upper Lobe] Blood Pressure 115/72 118/74 118/74 O2 Sat by Pulse 100 100 100 Oximetry 03/15/20 03/15/20 03/15/20 04:45 05:00 05:15 Temperature Pulse Rate 83 83 79 Pulse Rate [ Anterior Bilateral Throughout] Pulse Rate [ From Monitor] Pulse Rate [ Left Upper Lobe ] Respiratory 16 14 15 Rate Respiratory Rate [Abdomen] Respiratory Rate [Anterior Bilateral Throughout] Respiratory Rate [Left Upper Lobe] Blood Pressure 124/81 132/80 135/83 O2 Sat by Pulse 100 100 100 Oximetry 03/15/20 03/15/20 03/15/20 05:30 05:45 06:00 Temperature Pulse Rate 87 86 84 Pulse Rate [ Anterior Bilateral Throughout] Pulse Rate [ From Monitor] Pulse Rate [ Left Upper Lobe ] Respiratory 17 15 14 Rate Respiratory Rate [Abdomen] Respiratory Rate [Anterior Bilateral Throughout] Respiratory Rate [Left Upper Lobe] Blood Pressure 116/82 121/82 122/81 O2 Sat by Pulse 100 100 100 Oximetry 03/15/20 03/15/20 03/15/20 06:15 06:16 06:30 Temperature Pulse Rate 83 84 85 Pulse Rate [ Anterior Bilateral Throughout] Pulse Rate [ From Monitor] Pulse Rate [ Left Upper Lobe ] Respiratory 16 14 Rate Respiratory Rate [Abdomen] Respiratory Rate [Anterior Bilateral Throughout] Respiratory Rate [Left Upper Lobe] Blood Pressure 128/84 128/84 134/88 O2 Sat by Pulse 100 100 Oximetry 03/15/20 03/15/20 03/15/20 06:45 07:00 07:15 Temperature Pulse Rate 84 84 86 Pulse Rate [ Anterior Bilateral Throughout] Pulse Rate [ From Monitor] Pulse Rate [ Left Upper Lobe ] Respiratory 15 15 17 Rate Respiratory Rate [Abdomen] Respiratory Rate [Anterior Bilateral Throughout] Respiratory Rate [Left Upper Lobe] Blood Pressure 127/83 128/81 146/96 O2 Sat by Pulse 100 100 100 Oximetry 03/15/20 03/15/20 03/15/20 07:30 07:45 08:00 Temperature 98.7 F Pulse Rate 84 85 85 Pulse Rate [ Anterior Bilateral Throughout] Pulse Rate [ 81 From Monitor] Pulse Rate [ Left Upper Lobe ] Respiratory 16 15 16 Rate Respiratory Rate [Abdomen] Respiratory Rate [Anterior Bilateral Throughout] Respiratory Rate [Left Upper Lobe] Blood Pressure 126/82 126/85 129/85 O2 Sat by Pulse 100 100 100 Oximetry 03/15/20 03/15/20 03/15/20 08:15 08:30 08:41 Temperature Pulse Rate 84 87 93 H Pulse Rate [ 94 H Anterior Bilateral Throughout] Pulse Rate [ From Monitor] Pulse Rate [ Left Upper Lobe ] Respiratory 16 16 Rate Respiratory Rate [Abdomen] Respiratory 18 Rate [Anterior Bilateral Throughout] Respiratory Rate [Left Upper Lobe] Blood Pressure 119/77 139/90 135/87 O2 Sat by Pulse 100 100 100 Oximetry 03/15/20 03/15/20 03/15/20 08:45 08:50 09:00 Temperature Pulse Rate 94 H 95 H 96 H Pulse Rate [ Anterior Bilateral Throughout] Pulse Rate [ From Monitor] Pulse Rate [ Left Upper Lobe ] Respiratory 18 22 19 Rate Respiratory Rate [Abdomen] Respiratory Rate [Anterior Bilateral Throughout] Respiratory Rate [Left Upper Lobe] Blood Pressure 135/87 145/97 145/97 O2 Sat by Pulse 100 100 100 Oximetry 03/15/20 03/15/20 03/15/20 09:15 09:30 09:45 Temperature Pulse Rate 97 H 93 H 97 H Pulse Rate [ Anterior Bilateral Throughout] Pulse Rate [ From Monitor] Pulse Rate [ Left Upper Lobe ] Respiratory 20 22 18 Rate Respiratory Rate [Abdomen] Respiratory Rate [Anterior Bilateral Throughout] Respiratory Rate [Left Upper Lobe] Blood Pressure 155/92 139/91 145/91 O2 Sat by Pulse 100 99 98 Oximetry 03/15/20 03/15/20 03/15/20 10:00 10:15 10:30 Temperature Pulse Rate 93 H 91 H 93 H Pulse Rate [ Anterior Bilateral Throughout] Pulse Rate [ From Monitor] Pulse Rate [ Left Upper Lobe ] Respiratory 20 19 17 Rate Respiratory 20 Rate [Abdomen] Respiratory Rate [Anterior Bilateral Throughout] Respiratory Rate [Left Upper Lobe] Blood Pressure 140/94 139/89 149/92 O2 Sat by Pulse 99 99 100 Oximetry 03/15/20 03/15/20 03/15/20 10:45 10:52 11:00 Temperature Pulse Rate 91 H 90 89 Pulse Rate [ Anterior Bilateral Throughout] Pulse Rate [ From Monitor] Pulse Rate [ Left Upper Lobe ] Respiratory 19 18 Rate Respiratory Rate [Abdomen] Respiratory Rate [Anterior Bilateral Throughout] Respiratory Rate [Left Upper Lobe] Blood Pressure 138/87 138/87 140/82 O2 Sat by Pulse 99 99 Oximetry 03/15/20 03/15/20 03/15/20 11:15 11:30 11:45 Temperature Pulse Rate 88 87 86 Pulse Rate [ Anterior Bilateral Throughout] Pulse Rate [ From Monitor] Pulse Rate [ Left Upper Lobe ] Respiratory 20 18 20 Rate Respiratory Rate [Abdomen] Respiratory Rate [Anterior Bilateral Throughout] Respiratory Rate [Left Upper Lobe] Blood Pressure 125/84 137/89 126/82 O2 Sat by Pulse 99 99 99 Oximetry 03/15/20 03/15/20 12:00 12:38 Temperature 98.2 F Pulse Rate 88 89 Pulse Rate [ Anterior Bilateral Throughout] Pulse Rate [ 87 From Monitor] Pulse Rate [ Left Upper Lobe ] Respiratory 19 23 Rate Respiratory Rate [Abdomen] Respiratory Rate [Anterior Bilateral Throughout] Respiratory Rate [Left Upper Lobe] Blood Pressure 138/89 123/86 O2 Sat by Pulse 100 100 Oximetry Constitutional: no acute distress, alert, other (Obese female with mildly increased respiratory effort at rest on MVS,) Eyes: non-icteric ENT: oropharynx moist, other (ETT 24 cm TY, RIJ HD trialysis catheter) Neck: supple, no lymphadenopathy, no JVD Effort: mildly labored Ascultation: Bilateral: diminished breath sounds (at the bases), wheezes (expiratory), rales, rhonchi Percussion: Bilateral: not dull Cardiovascular: regular rate and rhythm, other (S1,S2) Gastrointestinal: hypoactive bowel sounds, non-tender, other (distended and firm) Integumentary: normal Extremities: no cyanosis, no edema, pink and warm, pulses normal Neurologic: normal mental status, non-focal exam, pupils equal and round, CN II- XII normal, motor strength normal and Psychiatric: mood appropriate, affect normal CBC and BMP: 03/16/20 04:52 03/16/20 04:52 ABG, PT/INR, D-dimer: ABG ABG pH 7.462 (7.320-7.450) H 03/13/20 14:23 POC ABG pCO2 40.5 mmHg (32.0-48.0) 03/13/20 14:23 ABG pCO2 46.6 mm Hg 03/13/20 04:00 POC ABG pO2 75.1 mmHg (83-108) L 03/13/20 14:23 ABG pO2 83.2 mm Hg (80.0-90.0) 03/13/20 04:00 POC ABG HCO3 28.3 03/13/20 14:23 ABG O2 Saturation 96.8 % (95.0-99.0) 03/13/20 04:00 PT/INR, D-dimer PT 14.1 Sec. (12.2-14.9) 03/11/20 07:31 INR 1.07 (0.87-1.13) 03/11/20 07:31 Abnormal lab findings: Abnormal Labs 02/24/20 02/24/20 02/24/20 02:53 02:53 Unknown WBC 12.7 H Hgb 10.0 L RBC Hct MCV 70 L MCH 22 L RDW 17.9 H Plt Count 458 H Lymph % (Auto) 8.9 L Lymph # 1.1 L [place] % (Auto) [place] # Lymph # (Auto) [place] # (Auto) Eos # (Auto) Seg Neutrophils % 84.2 H Seg Neutrophils # 10.7 H Seg Neuts % (Manual) Lymphocytes % (Manual) Monocytes % (Manual) Nucleated RBC % Seg Neutrophils # Man Lymphocytes # (Manual) Monocytes # (Manual) Eosinophils # (Manual) Basophils # (Manual) ABG pH POC ABG pCO2 POC ABG pO2 ABG pO2 ABG HCO3 ABG O2 Saturation ABG Base Excess ABG Hemoglobin ABG Oxyhemoglobin ABG Sodium ABG Glucose Oxyhemoglobin Sodium Potassium Chloride Carbon Dioxide BUN 27 H Creatinine 1.7 H Glucose 118 H POC Glucose Calcium Phosphorus Magnesium Direct Bilirubin AST Alkaline Phosphatase Albumin Troponin T C-Reactive Protein Qguoc-0-Fjylpupok PEP Interpretation Triglycerides Lipase 232 H HDL Cholesterol PTH Intact Arterial Blood Glucose Arterial Blood Ionized Calcium Urine WBC (Auto) 11.0 H Urine Creatinine Urine Total Protein ZINA Screen Crossmatch 02/25/20 02/25/20 02/25/20 00:03 03:49 03:49 WBC 29.1 H Hgb 9.4 L RBC Hct 30.2 L MCV 71 L MCH 22 L RDW 18.3 H Plt Count 525 H Lymph % (Auto) 3.4 L Lymph # 1.0 L [place] % (Auto) [place] # 1.0 H Lymph # (Auto) [place] # (Auto) Eos # (Auto) Seg Neutrophils % Seg Neutrophils # 26.4 H Seg Neuts % (Manual) Lymphocytes % (Manual) Monocytes % (Manual) Nucleated RBC % Seg Neutrophils # Man Lymphocytes # (Manual) Monocytes # (Manual) Eosinophils # (Manual) Basophils # (Manual) ABG pH POC ABG pCO2 POC ABG pO2 ABG pO2 ABG HCO3 ABG O2 Saturation ABG Base Excess ABG Hemoglobin ABG Oxyhemoglobin ABG Sodium ABG Glucose Oxyhemoglobin Sodium Potassium Chloride Carbon Dioxide BUN Creatinine Glucose POC Glucose 126 H Calcium Phosphorus Magnesium Direct Bilirubin AST Alkaline Phosphatase Albumin Troponin T C-Reactive Protein Msfja-2-Ywrfwujdy PEP Interpretation Triglycerides Lipase 1486 H HDL Cholesterol PTH Intact Arterial Blood Glucose Arterial Blood Ionized Calcium Urine WBC (Auto) Urine Creatinine Urine Total Protein ZINA Screen Crossmatch 02/25/20 02/25/20 02/25/20 03:49 05:55 22:55 WBC Hgb RBC Hct MCV MCH RDW Plt Count Lymph % (Auto) Lymph # [place] % (Auto) [place] # Lymph # (Auto) [place] # (Auto) Eos # (Auto) Seg Neutrophils % Seg Neutrophils # Seg Neuts % (Manual) Lymphocytes % (Manual) Monocytes % (Manual) Nucleated RBC % Seg Neutrophils # Man Lymphocytes # (Manual) Monocytes # (Manual) Eosinophils # (Manual) Basophils # (Manual) ABG pH POC ABG pCO2 POC ABG pO2 ABG pO2 ABG HCO3 ABG O2 Saturation ABG Base Excess ABG Hemoglobin ABG Oxyhemoglobin ABG Sodium ABG Glucose Oxyhemoglobin Sodium 136 L Potassium Chloride 97.9 L Carbon Dioxide 21 L BUN 39 H Creatinine 3.0 H D Glucose 118 H POC Glucose 124 H Calcium Phosphorus Magnesium Direct Bilirubin AST Alkaline Phosphatase Albumin 3.6 L Troponin T C-Reactive Protein Ryzgy-5-Qfnyjfpae PEP Interpretation Triglycerides Lipase HDL Cholesterol PTH Intact Arterial Blood Glucose Arterial Blood Ionized Calcium Urine WBC (Auto) Urine Creatinine 161.0 H Urine Total Protein 150 H ZINA Screen Crossmatch 02/26/20 02/26/20 02/26/20 04:39 04:39 04:39 WBC 30.3 H Hgb 9.1 L RBC Hct 29.8 L MCV 71 L MCH 22 L RDW 18.2 H Plt Count 530 H Lymph % (Auto) Lymph # [place] % (Auto) [place] # Lymph # (Auto) [place] # (Auto) Eos # (Auto) Seg Neutrophils % Seg Neutrophils # Seg Neuts % (Manual) Lymphocytes % (Manual) Monocytes % (Manual) Nucleated RBC % Seg Neutrophils # Man Lymphocytes # (Manual) Monocytes # (Manual) Eosinophils # (Manual) Basophils # (Manual) ABG pH POC ABG pCO2 POC ABG pO2 ABG pO2 ABG HCO3 ABG O2 Saturation ABG Base Excess ABG Hemoglobin ABG Oxyhemoglobin ABG Sodium ABG Glucose Oxyhemoglobin Sodium Potassium Chloride Carbon Dioxide 19 L BUN 44 H Creatinine 3.1 H Glucose 106 H POC Glucose Calcium 8.1 L Phosphorus Magnesium Direct Bilirubin AST Alkaline Phosphatase Albumin Troponin T C-Reactive Protein Qgior-9-Sxertybhp PEP Interpretation Triglycerides Lipase 540 H HDL Cholesterol PTH Intact Arterial Blood Glucose Arterial Blood Ionized Calcium Urine WBC (Auto) Urine Creatinine Urine Total Protein ZINA Screen Positive H Crossmatch 02/26/20 02/26/20 02/26/20 04:39 08:15 12:14 WBC Hgb RBC Hct MCV MCH RDW Plt Count Lymph % (Auto) Lymph # [place] % (Auto) [place] # Lymph # (Auto) [place] # (Auto) Eos # (Auto) Seg Neutrophils % Seg Neutrophils # Seg Neuts % (Manual) Lymphocytes % (Manual) Monocytes % (Manual) Nucleated RBC % Seg Neutrophils # Man Lymphocytes # (Manual) Monocytes # (Manual) Eosinophils # (Manual) Basophils # (Manual) ABG pH POC ABG pCO2 POC ABG pO2 ABG pO2 ABG HCO3 ABG O2 Saturation ABG Base Excess ABG Hemoglobin ABG Oxyhemoglobin ABG Sodium ABG Glucose Oxyhemoglobin Sodium Potassium Chloride Carbon Dioxide BUN Creatinine Glucose POC Glucose 112 H Calcium Phosphorus Magnesium Direct Bilirubin AST Alkaline Phosphatase Albumin 2.8 L Troponin T C-Reactive Protein Vwiyu-9-Upqzkldgo 0.7 H PEP Interpretation see below H Triglycerides Lipase HDL Cholesterol PTH Intact 911.3 H Arterial Blood Glucose Arterial Blood Ionized Calcium Urine WBC (Auto) Urine Creatinine Urine Total Protein ZINA Screen Crossmatch 02/27/20 02/27/20 02/27/20 04:18 04:18 04:18 WBC 26.8 H Hgb 7.9 L RBC Hct 26.3 L MCV 70 L MCH 21 L RDW 18.0 H Plt Count 513 H Lymph % (Auto) Lymph # [place] % (Auto) [place] # Lymph # (Auto) [place] # (Auto) Eos # (Auto) Seg Neutrophils % Seg Neutrophils # Seg Neuts % (Manual) Lymphocytes % (Manual) Monocytes % (Manual) Nucleated RBC % Seg Neutrophils # Man Lymphocytes # (Manual) Monocytes # (Manual) Eosinophils # (Manual) Basophils # (Manual) ABG pH POC ABG pCO2 POC ABG pO2 ABG pO2 ABG HCO3 ABG O2 Saturation ABG Base Excess ABG Hemoglobin ABG Oxyhemoglobin ABG Sodium ABG Glucose Oxyhemoglobin Sodium 135 L 135 L Potassium Chloride Carbon Dioxide 15 L 16 L BUN 50 H 51 H Creatinine 3.4 H 3.4 H Glucose POC Glucose Calcium 7.4 L 7.5 L Phosphorus Magnesium Direct Bilirubin AST Alkaline Phosphatase Albumin 3.0 L Troponin T C-Reactive Protein 37.30 H Hpbku-0-Shadwvilx PEP Interpretation Triglycerides Lipase 177 H HDL Cholesterol PTH Intact Arterial Blood Glucose Arterial Blood Ionized Calcium Urine WBC (Auto) Urine Creatinine Urine Total Protein ZINA Screen Crossmatch 02/27/20 02/28/20 02/28/20 16:57 05:07 05:07 WBC Hgb RBC Hct MCV MCH RDW Plt Count Lymph % (Auto) Lymph # [place] % (Auto) [place] # Lymph # (Auto) [place] # (Auto) Eos # (Auto) Seg Neutrophils % Seg Neutrophils # Seg Neuts % (Manual) Lymphocytes % (Manual) Monocytes % (Manual) Nucleated RBC % Seg Neutrophils # Man Lymphocytes # (Manual) Monocytes # (Manual) Eosinophils # (Manual) Basophils # (Manual) ABG pH 7.336 L POC ABG pCO2 POC ABG pO2 ABG pO2 57.0 L ABG HCO3 16.4 L ABG O2 Saturation 88.2 L ABG Base Excess -8.4 L ABG Hemoglobin 10.4 L ABG Oxyhemoglobin ABG Sodium ABG Glucose Oxyhemoglobin 85.7 L Sodium Potassium Chloride Carbon Dioxide 14 L BUN 60 H Creatinine 4.2 H Glucose POC Glucose Calcium 8.2 L Phosphorus Magnesium Direct Bilirubin AST Alkaline Phosphatase Albumin Troponin T C-Reactive Protein Boryp-2-Acyqqhhpv PEP Interpretation Triglycerides Lipase 155 H HDL Cholesterol PTH Intact Arterial Blood Glucose Arterial Blood Ionized Calcium Urine WBC (Auto) Urine Creatinine Urine Total Protein ZINA Screen Crossmatch 02/28/20 02/28/20 02/28/20 05:56 11:05 11:05 WBC Hgb RBC Hct MCV MCH RDW Plt Count Lymph % (Auto) Lymph # [place] % (Auto) [place] # Lymph # (Auto) [place] # (Auto) Eos # (Auto) Seg Neutrophils % Seg Neutrophils # Seg Neuts % (Manual) Lymphocytes % (Manual) Monocytes % (Manual) Nucleated RBC % Seg Neutrophils # Man Lymphocytes # (Manual) Monocytes # (Manual) Eosinophils # (Manual) Basophils # (Manual) ABG pH 7.317 L POC ABG pCO2 POC ABG pO2 76.2 L ABG pO2 ABG HCO3 16.4 L ABG O2 Saturation ABG Base Excess -8.9 L ABG Hemoglobin 6.6 L 7.6 L ABG Oxyhemoglobin ABG Sodium ABG Glucose Oxyhemoglobin 94.6 L Sodium Potassium Chloride Carbon Dioxide BUN Creatinine Glucose POC Glucose 115 H Calcium Phosphorus Magnesium Direct Bilirubin AST Alkaline Phosphatase Albumin Troponin T C-Reactive Protein Plwrb-9-Bczxbgpin PEP Interpretation Triglycerides Lipase HDL Cholesterol PTH Intact Arterial Blood Glucose Arterial Blood Ionized Calcium Urine WBC (Auto) Urine Creatinine Urine Total Protein ZINA Screen Crossmatch 02/28/20 02/28/20 02/29/20 17:39 19:39 05:43 WBC Hgb RBC Hct MCV MCH RDW Plt Count Lymph % (Auto) Lymph # [place] % (Auto) [place] # Lymph # (Auto) [place] # (Auto) Eos # (Auto) Seg Neutrophils % Seg Neutrophils # Seg Neuts % (Manual) Lymphocytes % (Manual) Monocytes % (Manual) Nucleated RBC % Seg Neutrophils # Man Lymphocytes # (Manual) Monocytes # (Manual) Eosinophils # (Manual) Basophils # (Manual) ABG pH 7.300 L POC ABG pCO2 POC ABG pO2 ABG pO2 117.5 H ABG HCO3 15.0 L ABG O2 Saturation ABG Base Excess -10.5 L ABG Hemoglobin 6.4 L ABG Oxyhemoglobin ABG Sodium ABG Glucose Oxyhemoglobin Sodium Potassium Chloride Carbon Dioxide BUN Creatinine Glucose POC Glucose 120 H 66 L Calcium Phosphorus Magnesium Direct Bilirubin AST Alkaline Phosphatase Albumin Troponin T C-Reactive Protein Znzdk-1-Rwrbbmtop PEP Interpretation Triglycerides Lipase HDL Cholesterol PTH Intact Arterial Blood Glucose Arterial Blood Ionized Calcium Urine WBC (Auto) Urine Creatinine Urine Total Protein ZINA Screen Crossmatch 02/29/20 02/29/20 02/29/20 05:45 12:04 12:31 WBC Hgb RBC Hct MCV MCH RDW Plt Count Lymph % (Auto) Lymph # [place] % (Auto) [place] # Lymph # (Auto) [place] # (Auto) Eos # (Auto) Seg Neutrophils % Seg Neutrophils # Seg Neuts % (Manual) Lymphocytes % (Manual) Monocytes % (Manual) Nucleated RBC % Seg Neutrophils # Man Lymphocytes # (Manual) Monocytes # (Manual) Eosinophils # (Manual) Basophils # (Manual) ABG pH 7.212 L POC ABG pCO2 POC ABG pO2 ABG pO2 ABG HCO3 ABG O2 Saturation ABG Base Excess ABG Hemoglobin 7.4 L ABG Oxyhemoglobin ABG Sodium ABG Glucose Oxyhemoglobin Sodium Potassium Chloride Carbon Dioxide BUN Creatinine Glucose POC Glucose 65 L 64 L Calcium Phosphorus Magnesium Direct Bilirubin AST Alkaline Phosphatase Albumin Troponin T C-Reactive Protein Ppkkr-5-Hyffmmegx PEP Interpretation Triglycerides Lipase HDL Cholesterol PTH Intact Arterial Blood Glucose Arterial Blood Ionized Calcium Urine WBC (Auto) Urine Creatinine Urine Total Protein ZINA Screen Crossmatch 02/29/20 02/29/20 02/29/20 14:22 14:22 18:20 WBC Hgb RBC Hct MCV MCH RDW Plt Count Lymph % (Auto) Lymph # [place] % (Auto) [place] # Lymph # (Auto) [place] # (Auto) Eos # (Auto) Seg Neutrophils % Seg Neutrophils # Seg Neuts % (Manual) Lymphocytes % (Manual) Monocytes % (Manual) Nucleated RBC % Seg Neutrophils # Man Lymphocytes # (Manual) Monocytes # (Manual) Eosinophils # (Manual) Basophils # (Manual) ABG pH POC ABG pCO2 POC ABG pO2 ABG pO2 ABG HCO3 ABG O2 Saturation ABG Base Excess ABG Hemoglobin ABG Oxyhemoglobin ABG Sodium ABG Glucose Oxyhemoglobin Sodium Potassium Chloride Carbon Dioxide 16 L BUN 77 H Creatinine 4.7 H Glucose POC Glucose 66 L Calcium Phosphorus 7.50 H Magnesium 2.60 H Direct Bilirubin AST Alkaline Phosphatase Albumin 2.3 L Troponin T C-Reactive Protein Kvnmf-8-Vezsqrknj PEP Interpretation Triglycerides Lipase HDL Cholesterol PTH Intact Arterial Blood Glucose Arterial Blood Ionized Calcium Urine WBC (Auto) Urine Creatinine Urine Total Protein ZINA Screen Crossmatch 02/29/20 03/01/20 03/01/20 18:24 04:05 04:37 WBC Hgb RBC Hct MCV MCH RDW Plt Count Lymph % (Auto) Lymph # [place] % (Auto) [place] # Lymph # (Auto) [place] # (Auto) Eos # (Auto) Seg Neutrophils % Seg Neutrophils # Seg Neuts % (Manual) Lymphocytes % (Manual) Monocytes % (Manual) Nucleated RBC % Seg Neutrophils # Man Lymphocytes # (Manual) Monocytes # (Manual) Eosinophils # (Manual) Basophils # (Manual) ABG pH 7.271 L 7.347 L POC ABG pCO2 POC ABG pO2 ABG pO2 133.5 H ABG HCO3 15.8 L ABG O2 Saturation ABG Base Excess -8.9 L ABG Hemoglobin 7.2 L 7.6 L ABG Oxyhemoglobin 93.4 L ABG Sodium ABG Glucose Oxyhemoglobin Sodium Potassium Chloride 107.6 H Carbon Dioxide 14 L BUN 83 H Creatinine 5.6 H Glucose POC Glucose Calcium Phosphorus 6.10 H Magnesium 2.40 H Direct Bilirubin AST Alkaline Phosphatase Albumin Troponin T C-Reactive Protein Smtbj-6-Lyrrxfzun PEP Interpretation Triglycerides Lipase HDL Cholesterol PTH Intact Arterial Blood Glucose Arterial Blood Ionized Calcium Urine WBC (Auto) Urine Creatinine Urine Total Protein ZINA Screen Crossmatch 03/01/20 03/01/20 03/01/20 11:06 16:22 18:12 WBC 30.5 H Hgb 6.2 L RBC 2.92 L Hct 20.8 L MCV 71 L MCH 21 L RDW 18.2 H Plt Count 560 H Lymph % (Auto) Lymph # [place] % (Auto) [place] # Lymph # (Auto) [place] # (Auto) Eos # (Auto) Seg Neutrophils % Seg Neutrophils # Seg Neuts % (Manual) 79.0 H Lymphocytes % (Manual) 3.0 L Monocytes % (Manual) Nucleated RBC % Seg Neutrophils # Man 24.1 H Lymphocytes # (Manual) 0.9 L Monocytes # (Manual) 2.1 H Eosinophils # (Manual) Basophils # (Manual) ABG pH POC ABG pCO2 POC ABG pO2 ABG pO2 ABG HCO3 ABG O2 Saturation ABG Base Excess ABG Hemoglobin ABG Oxyhemoglobin ABG Sodium ABG Glucose Oxyhemoglobin Sodium Potassium 5.3 H D Chloride Carbon Dioxide 11 L BUN 77 H Creatinine 5.0 H Glucose 54 L POC Glucose 121 H Calcium Phosphorus Magnesium Direct Bilirubin AST Alkaline Phosphatase Albumin 3.0 L Troponin T C-Reactive Protein 36.50 H Jixpc-9-Fgswcvrxw PEP Interpretation Triglycerides Lipase HDL Cholesterol PTH Intact Arterial Blood Glucose Arterial Blood Ionized Calcium Urine WBC (Auto) Urine Creatinine Urine Total Protein ZINA Screen Crossmatch 03/01/20 03/01/20 03/01/20 18:30 23:37 Unknown WBC Hgb RBC Hct MCV MCH RDW Plt Count Lymph % (Auto) Lymph # [place] % (Auto) [place] # Lymph # (Auto) [place] # (Auto) Eos # (Auto) Seg Neutrophils % Seg Neutrophils # Seg Neuts % (Manual) Lymphocytes % (Manual) Monocytes % (Manual) Nucleated RBC % Seg Neutrophils # Man Lymphocytes # (Manual) Monocytes # (Manual) Eosinophils # (Manual) Basophils # (Manual) ABG pH POC ABG pCO2 POC ABG pO2 ABG pO2 ABG HCO3 ABG O2 Saturation ABG Base Excess ABG Hemoglobin ABG Oxyhemoglobin ABG Sodium ABG Glucose Oxyhemoglobin Sodium Potassium Chloride Carbon Dioxide BUN Creatinine Glucose POC Glucose 125 H Calcium Phosphorus Magnesium Direct Bilirubin AST Alkaline Phosphatase Albumin Troponin T C-Reactive Protein Nqzal-8-Jyeeumppx PEP Interpretation Triglycerides Lipase 297 H HDL Cholesterol PTH Intact Arterial Blood Glucose Arterial Blood Ionized Calcium Urine WBC (Auto) Urine Creatinine Urine Total Protein ZINA Screen Crossmatch See Detail 03/02/20 03/02/20 03/02/20 04:00 05:36 05:36 WBC 26.0 H Hgb 7.8 L RBC 3.26 L Hct 24.2 L MCV 74 L MCH 24 L RDW 21.3 H Plt Count 508 H Lymph % (Auto) Lymph # [place] % (Auto) [place] # Lymph # (Auto) [place] # (Auto) Eos # (Auto) Seg Neutrophils % Seg Neutrophils # Seg Neuts % (Manual) 86.0 H Lymphocytes % (Manual) 4.0 L Monocytes % (Manual) Nucleated RBC % 2.0 H Seg Neutrophils # Man 22.4 H Lymphocytes # (Manual) 1.0 L Monocytes # (Manual) Eosinophils # (Manual) Basophils # (Manual) ABG pH POC ABG pCO2 27.8 L POC ABG pO2 ABG pO2 ABG HCO3 ABG O2 Saturation ABG Base Excess ABG Hemoglobin 8 L ABG Oxyhemoglobin ABG Sodium ABG Glucose Oxyhemoglobin Sodium Potassium Chloride Carbon Dioxide 17 L BUN 85 H Creatinine 5.6 H Glucose 109 H POC Glucose Calcium Phosphorus Magnesium 2.50 H Direct Bilirubin AST Alkaline Phosphatase Albumin 2.3 L Troponin T C-Reactive Protein Wbrnx-5-Oajkieonr PEP Interpretation Triglycerides Lipase HDL Cholesterol PTH Intact Arterial Blood Glucose Arterial Blood Ionized Calcium Urine WBC (Auto) Urine Creatinine Urine Total Protein ZINA Screen Crossmatch 03/03/20 03/03/20 03/03/20 04:00 04:36 04:36 WBC Hgb RBC Hct MCV MCH RDW Plt Count Lymph % (Auto) Lymph # [place] % (Auto) [place] # Lymph # (Auto) [place] # (Auto) Eos # (Auto) Seg Neutrophils % Seg Neutrophils # Seg Neuts % (Manual) Lymphocytes % (Manual) Monocytes % (Manual) Nucleated RBC % Seg Neutrophils # Man Lymphocytes # (Manual) Monocytes # (Manual) Eosinophils # (Manual) Basophils # (Manual) ABG pH POC ABG pCO2 31.8 L POC ABG pO2 ABG pO2 ABG HCO3 ABG O2 Saturation ABG Base Excess ABG Hemoglobin 8.6 L ABG Oxyhemoglobin ABG Sodium ABG Glucose Oxyhemoglobin Sodium 147 H Potassium Chloride 108.4 H Carbon Dioxide 16 L BUN 87 H Creatinine 6.2 H Glucose POC Glucose Calcium Phosphorus Magnesium 2.50 H Direct Bilirubin 1.0 H AST Alkaline Phosphatase Albumin 2.4 L Troponin T C-Reactive Protein Bgsmi-1-Tznemjxca PEP Interpretation Triglycerides Lipase 119 H HDL Cholesterol PTH Intact Arterial Blood Glucose Arterial Blood Ionized Calcium Urine WBC (Auto) Urine Creatinine Urine Total Protein ZINA Screen Crossmatch 03/03/20 03/03/20 03/03/20 04:36 12:48 17:48 WBC 28.0 H Hgb 8.1 L RBC 3.41 L Hct 25.3 L MCV 74 L MCH 24 L RDW 20.8 H Plt Count 557 H Lymph % (Auto) Lymph # [place] % (Auto) [place] # Lymph # (Auto) [place] # (Auto) Eos # (Auto) Seg Neutrophils % Seg Neutrophils # Seg Neuts % (Manual) 82.0 H Lymphocytes % (Manual) 4.0 L Monocytes % (Manual) Nucleated RBC % Seg Neutrophils # Man 23.0 H Lymphocytes # (Manual) 1.1 L Monocytes # (Manual) 2.0 H Eosinophils # (Manual) Basophils # (Manual) ABG pH POC ABG pCO2 POC ABG pO2 ABG pO2 ABG HCO3 ABG O2 Saturation ABG Base Excess ABG Hemoglobin ABG Oxyhemoglobin ABG Sodium ABG Glucose Oxyhemoglobin Sodium Potassium Chloride Carbon Dioxide BUN Creatinine Glucose POC Glucose 131 H 113 H Calcium Phosphorus Magnesium Direct Bilirubin AST Alkaline Phosphatase Albumin Troponin T C-Reactive Protein Mvqot-0-Eyzpidaic PEP Interpretation Triglycerides Lipase HDL Cholesterol PTH Intact Arterial Blood Glucose Arterial Blood Ionized Calcium Urine WBC (Auto) Urine Creatinine Urine Total Protein ZINA Screen Crossmatch 03/03/20 03/04/20 03/04/20 23:43 03:43 04:05 WBC Hgb RBC Hct MCV MCH RDW Plt Count Lymph % (Auto) Lymph # [place] % (Auto) [place] # Lymph # (Auto) [place] # (Auto) Eos # (Auto) Seg Neutrophils % Seg Neutrophils # Seg Neuts % (Manual) Lymphocytes % (Manual) Monocytes % (Manual) Nucleated RBC % Seg Neutrophils # Man Lymphocytes # (Manual) Monocytes # (Manual) Eosinophils # (Manual) Basophils # (Manual) ABG pH POC ABG pCO2 POC ABG pO2 ABG pO2 57.4 L ABG HCO3 27.2 H ABG O2 Saturation 88.6 L ABG Base Excess ABG Hemoglobin ABG Oxyhemoglobin ABG Sodium ABG Glucose Oxyhemoglobin Sodium Potassium 3.3 L Chloride Carbon Dioxide BUN 65 H Creatinine 5.3 H Glucose 152 H POC Glucose 149 H Calcium Phosphorus Magnesium Direct Bilirubin 0.7 H AST Alkaline Phosphatase Albumin 2.5 L Troponin T C-Reactive Protein Evjix-7-Jpizovoqq PEP Interpretation Triglycerides Lipase HDL Cholesterol PTH Intact Arterial Blood Glucose Arterial Blood Ionized Calcium Urine WBC (Auto) Urine Creatinine Urine Total Protein ZINA Screen Crossmatch 03/04/20 03/04/20 03/04/20 04:05 05:26 12:21 WBC 30.1 H Hgb 8.2 L RBC 3.44 L Hct 25.2 L MCV 73 L MCH 24 L RDW 20.7 H Plt Count 554 H Lymph % (Auto) 3.3 L Lymph # [place] % (Auto) [place] # Lymph # (Auto) 1.0 L [place] # (Auto) 2.0 H Eos # (Auto) Seg Neutrophils % 88.6 H Seg Neutrophils # 26.6 H Seg Neuts % (Manual) Lymphocytes % (Manual) Monocytes % (Manual) Nucleated RBC % Seg Neutrophils # Man Lymphocytes # (Manual) Monocytes # (Manual) Eosinophils # (Manual) Basophils # (Manual) ABG pH POC ABG pCO2 POC ABG pO2 ABG pO2 ABG HCO3 ABG O2 Saturation ABG Base Excess ABG Hemoglobin ABG Oxyhemoglobin ABG Sodium ABG Glucose Oxyhemoglobin Sodium Potassium Chloride Carbon Dioxide BUN Creatinine Glucose POC Glucose 136 H 155 H Calcium Phosphorus Magnesium Direct Bilirubin AST Alkaline Phosphatase Albumin Troponin T C-Reactive Protein Acrwu-8-Iwbbozlsd PEP Interpretation Triglycerides Lipase HDL Cholesterol PTH Intact Arterial Blood Glucose Arterial Blood Ionized Calcium Urine WBC (Auto) Urine Creatinine Urine Total Protein ZINA Screen Crossmatch 03/04/20 03/04/20 03/04/20 18:02 19:00 23:24 WBC Hgb RBC Hct MCV MCH RDW Plt Count Lymph % (Auto) Lymph # [place] % (Auto) [place] # Lymph # (Auto) [place] # (Auto) Eos # (Auto) Seg Neutrophils % Seg Neutrophils # Seg Neuts % (Manual) Lymphocytes % (Manual) Monocytes % (Manual) Nucleated RBC % Seg Neutrophils # Man Lymphocytes # (Manual) Monocytes # (Manual) Eosinophils # (Manual) Basophils # (Manual) ABG pH POC ABG pCO2 POC ABG pO2 ABG pO2 ABG HCO3 ABG O2 Saturation ABG Base Excess ABG Hemoglobin ABG Oxyhemoglobin ABG Sodium ABG Glucose Oxyhemoglobin Sodium Potassium Chloride Carbon Dioxide BUN Creatinine Glucose POC Glucose 124 H 115 H Calcium Phosphorus Magnesium Direct Bilirubin AST Alkaline Phosphatase Albumin Troponin T C-Reactive Protein Bwgcr-4-Svxpoesvi PEP Interpretation Triglycerides Lipase 72 H HDL Cholesterol PTH Intact Arterial Blood Glucose Arterial Blood Ionized Calcium Urine WBC (Auto) Urine Creatinine Urine Total Protein ZINA Screen Crossmatch 03/05/20 03/05/20 03/05/20 05:04 05:29 06:00 WBC Hgb RBC Hct MCV MCH RDW Plt Count Lymph % (Auto) Lymph # [place] % (Auto) [place] # Lymph # (Auto) [place] # (Auto) Eos # (Auto) Seg Neutrophils % Seg Neutrophils # Seg Neuts % (Manual) Lymphocytes % (Manual) Monocytes % (Manual) Nucleated RBC % Seg Neutrophils # Man Lymphocytes # (Manual) Monocytes # (Manual) Eosinophils # (Manual) Basophils # (Manual) ABG pH POC ABG pCO2 POC ABG pO2 ABG pO2 62.5 L ABG HCO3 26.4 H ABG O2 Saturation 92.1 L ABG Base Excess ABG Hemoglobin 9.3 L ABG Oxyhemoglobin ABG Sodium ABG Glucose Oxyhemoglobin 89.9 L Sodium Potassium Chloride Carbon Dioxide BUN 54 H Creatinine 5.4 H Glucose 125 H POC Glucose 134 H Calcium Phosphorus Magnesium Direct Bilirubin 0.6 H AST Alkaline Phosphatase 133 H Albumin 2.5 L Troponin T C-Reactive Protein Mpvry-1-Iltkujmuo PEP Interpretation Triglycerides Lipase HDL Cholesterol PTH Intact Arterial Blood Glucose Arterial Blood Ionized Calcium Urine WBC (Auto) Urine Creatinine Urine Total Protein ZINA Screen Crossmatch 03/05/20 03/05/20 03/05/20 12:18 18:01 21:39 WBC Hgb RBC Hct MCV MCH RDW Plt Count Lymph % (Auto) Lymph # [place] % (Auto) [place] # Lymph # (Auto) [place] # (Auto) Eos # (Auto) Seg Neutrophils % Seg Neutrophils # Seg Neuts % (Manual) Lymphocytes % (Manual) Monocytes % (Manual) Nucleated RBC % Seg Neutrophils # Man Lymphocytes # (Manual) Monocytes # (Manual) Eosinophils # (Manual) Basophils # (Manual) ABG pH POC ABG pCO2 POC ABG pO2 ABG pO2 ABG HCO3 ABG O2 Saturation ABG Base Excess ABG Hemoglobin ABG Oxyhemoglobin ABG Sodium ABG Glucose Oxyhemoglobin Sodium Potassium Chloride Carbon Dioxide BUN Creatinine Glucose POC Glucose 118 H 108 H 123 H Calcium Phosphorus Magnesium Direct Bilirubin AST Alkaline Phosphatase Albumin Troponin T C-Reactive Protein [place]tpak-4-Teacijvxw PEP Interpretation Triglycerides Lipase HDL Cholesterol PTH Intact Arterial Blood Glucose Arterial Blood Ionized Calcium Urine WBC (Auto) Urine Creatinine Urine Total Protein ZINA Screen Crossmatch 03/06/20 03/06/20 03/06/20 04:40 04:41 05:44 WBC Hgb RBC Hct MCV MCH RDW Plt Count Lymph % (Auto) Lymph # [place] % (Auto) [place] # Lymph # (Auto) [place] # (Auto) Eos # (Auto) Seg Neutrophils % Seg Neutrophils # Seg Neuts % (Manual) Lymphocytes % (Manual) Monocytes % (Manual) Nucleated RBC % Seg Neutrophils # Man Lymphocytes # (Manual) Monocytes # (Manual) Eosinophils # (Manual) Basophils # (Manual) ABG pH POC ABG pCO2 POC ABG pO2 64.9 L ABG pO2 ABG HCO3 ABG O2 Saturation ABG Base Excess ABG Hemoglobin 9.9 L ABG Oxyhemoglobin 90.5 L ABG Sodium ABG Glucose Oxyhemoglobin Sodium Potassium Chloride 94.7 L Carbon Dioxide BUN 70 H Creatinine 7.1 H Glucose 113 H POC Glucose 134 H Calcium Phosphorus Magnesium Direct Bilirubin AST Alkaline Phosphatase Albumin Troponin T C-Reactive Protein Vuihd-9-Dnfkhgbrj PEP Interpretation Triglycerides Lipase HDL Cholesterol PTH Intact Arterial Blood Glucose Arterial Blood Ionized Calcium Urine WBC (Auto) Urine Creatinine Urine Total Protein ZINA Screen Crossmatch 03/06/20 03/06/20 03/06/20 08:54 11:56 18:19 WBC 31.5 H Hgb 8.7 L RBC Hct 27.8 L MCV 75 L MCH 23 L RDW 21.2 H Plt Count 516 H Lymph % (Auto) Lymph # [place] % (Auto) [place] # Lymph # (Auto) [place] # (Auto) Eos # (Auto) Seg Neutrophils % Seg Neutrophils # Seg Neuts % (Manual) 93.0 H Lymphocytes % (Manual) 2.0 L Monocytes % (Manual) Nucleated RBC % Seg Neutrophils # Man 29.3 H Lymphocytes # (Manual) 0.6 L Monocytes # (Manual) Eosinophils # (Manual) 0.6 H Basophils # (Manual) ABG pH POC ABG pCO2 POC ABG pO2 ABG pO2 ABG HCO3 ABG O2 Saturation ABG Base Excess ABG Hemoglobin ABG Oxyhemoglobin ABG Sodium ABG Glucose Oxyhemoglobin Sodium Potassium Chloride Carbon Dioxide BUN Creatinine Glucose POC Glucose 131 H 117 H Calcium Phosphorus Magnesium Direct Bilirubin AST Alkaline Phosphatase Albumin Troponin T C-Reactive Protein Njrul-0-Qxonforpv PEP Interpretation Triglycerides Lipase HDL Cholesterol PTH Intact Arterial Blood Glucose Arterial Blood Ionized Calcium Urine WBC (Auto) Urine Creatinine Urine Total Protein ZINA Screen Crossmatch 03/07/20 03/07/20 03/07/20 04:42 05:03 05:03 WBC 26.9 H Hgb 8.3 L RBC 3.50 L Hct 26.6 L MCV 76 L MCH 24 L RDW 21.3 H Plt Count 470 H Lymph % (Auto) Lymph # [place] % (Auto) [place] # Lymph # (Auto) [place] # (Auto) Eos # (Auto) Seg Neutrophils % Seg Neutrophils # Seg Neuts % (Manual) 89.0 H Lymphocytes % (Manual) 4.0 L Monocytes % (Manual) Nucleated RBC % Seg Neutrophils # Man 23.9 H Lymphocytes # (Manual) 1.1 L Monocytes # (Manual) Eosinophils # (Manual) Basophils # (Manual) 0.3 H ABG pH POC ABG pCO2 POC ABG pO2 68.3 L ABG pO2 ABG HCO3 ABG O2 Saturation ABG Base Excess ABG Hemoglobin 9.3 L ABG Oxyhemoglobin ABG Sodium ABG Glucose 112 H Oxyhemoglobin Sodium Potassium Chloride 94.8 L Carbon Dioxide BUN 52 H Creatinine 6.3 H Glucose 106 H POC Glucose Calcium Phosphorus Magnesium Direct Bilirubin AST Alkaline Phosphatase 132 H Albumin 2.5 L Troponin T C-Reactive Protein Dxfaj-2-Mbbkjsvlx PEP Interpretation Triglycerides Lipase HDL Cholesterol PTH Intact Arterial Blood Glucose 112 H Arterial Blood Ionized Calcium Urine WBC (Auto) Urine Creatinine Urine Total Protein ZINA Screen Crossmatch 03/07/20 03/07/20 03/07/20 12:08 18:05 23:29 WBC Hgb RBC Hct MCV MCH RDW Plt Count Lymph % (Auto) Lymph # [place] % (Auto) [place] # Lymph # (Auto) [place] # (Auto) Eos # (Auto) Seg Neutrophils % Seg Neutrophils # Seg Neuts % (Manual) Lymphocytes % (Manual) Monocytes % (Manual) Nucleated RBC % Seg Neutrophils # Man Lymphocytes # (Manual) Monocytes # (Manual) Eosinophils # (Manual) Basophils # (Manual) ABG pH POC ABG pCO2 POC ABG pO2 ABG pO2 ABG HCO3 ABG O2 Saturation ABG Base Excess ABG Hemoglobin ABG Oxyhemoglobin ABG Sodium ABG Glucose Oxyhemoglobin Sodium Potassium Chloride Carbon Dioxide BUN Creatinine Glucose POC Glucose 114 H 111 H 118 H Calcium Phosphorus Magnesium Direct Bilirubin AST Alkaline Phosphatase Albumin Troponin T C-Reactive Protein Lsxfw-1-Sfhqobecx PEP Interpretation Triglycerides Lipase HDL Cholesterol PTH Intact Arterial Blood Glucose Arterial Blood Ionized Calcium Urine WBC (Auto) Urine Creatinine Urine Total Protein ZINA Screen Crossmatch 03/08/20 03/08/20 03/08/20 04:50 17:45 23:53 WBC Hgb RBC Hct MCV MCH RDW Plt Count Lymph % (Auto) Lymph # [place] % (Auto) [place] # Lymph # (Auto) [place] # (Auto) Eos # (Auto) Seg Neutrophils % Seg Neutrophils # Seg Neuts % (Manual) Lymphocytes % (Manual) Monocytes % (Manual) Nucleated RBC % Seg Neutrophils # Man Lymphocytes # (Manual) Monocytes # (Manual) Eosinophils # (Manual) Basophils # (Manual) ABG pH POC ABG pCO2 POC ABG pO2 ABG pO2 ABG HCO3 ABG O2 Saturation ABG Base Excess ABG Hemoglobin ABG Oxyhemoglobin ABG Sodium ABG Glucose Oxyhemoglobin Sodium Potassium Chloride 95.5 L Carbon Dioxide BUN 52 H Creatinine 6.2 H Glucose 109 H POC Glucose 106 H 106 H Calcium Phosphorus Magnesium Direct Bilirubin AST Alkaline Phosphatase Albumin Troponin T C-Reactive Protein Tuojm-5-Stzbwjwtc PEP Interpretation Triglycerides Lipase HDL Cholesterol PTH Intact Arterial Blood Glucose Arterial Blood Ionized Calcium Urine WBC (Auto) Urine Creatinine Urine Total Protein ZINA Screen Crossmatch 03/09/20 03/09/20 03/09/20 04:00 07:53 18:22 WBC 21.9 H Hgb 7.5 L RBC 3.27 L Hct 24.3 L MCV 74 L MCH 23 L RDW 20.9 H Plt Count 488 H Lymph % (Auto) Lymph # [place] % (Auto) [place] # Lymph # (Auto) [place] # (Auto) Eos # (Auto) Seg Neutrophils % Seg Neutrophils # Seg Neuts % (Manual) Lymphocytes % (Manual) Monocytes % (Manual) Nucleated RBC % Seg Neutrophils # Man Lymphocytes # (Manual) Monocytes # (Manual) Eosinophils # (Manual) Basophils # (Manual) ABG pH POC ABG pCO2 POC ABG pO2 ABG pO2 ABG HCO3 ABG O2 Saturation ABG Base Excess ABG Hemoglobin ABG Oxyhemoglobin ABG Sodium ABG Glucose Oxyhemoglobin Sodium Potassium Chloride 92.8 L Carbon Dioxide BUN 74 H Creatinine 7.8 H Glucose POC Glucose 114 H Calcium Phosphorus Magnesium Direct Bilirubin AST Alkaline Phosphatase Albumin Troponin T C-Reactive Protein Vmmni-2-Euvyujykw PEP Interpretation Triglycerides Lipase HDL Cholesterol PTH Intact Arterial Blood Glucose Arterial Blood Ionized Calcium Urine WBC (Auto) Urine Creatinine Urine Total Protein ZINA Screen Crossmatch 03/10/20 03/10/20 03/10/20 04:37 04:37 09:53 WBC 16.0 H Hgb 7.1 L RBC 2.99 L Hct 22.4 L MCV 75 L MCH 24 L RDW 21.5 H Plt Count Lymph % (Auto) 9.2 L Lymph # [place] % (Auto) 9.9 H [place] # Lymph # (Auto) [place] # (Auto) 1.6 H Eos # (Auto) Seg Neutrophils % 79.2 H Seg Neutrophils # 12.6 H Seg Neuts % (Manual) Lymphocytes % (Manual) Monocytes % (Manual) Nucleated RBC % Seg Neutrophils # Man Lymphocytes # (Manual) Monocytes # (Manual) Eosinophils # (Manual) Basophils # (Manual) ABG pH POC ABG pCO2 POC ABG pO2 ABG pO2 ABG HCO3 ABG O2 Saturation ABG Base Excess ABG Hemoglobin 7.7 L ABG Oxyhemoglobin ABG Sodium 134.7 L ABG Glucose 103 H Oxyhemoglobin Sodium Potassium Chloride Carbon Dioxide BUN 45 H Creatinine 5.6 H Glucose 108 H POC Glucose Calcium Phosphorus Magnesium Direct Bilirubin AST Alkaline Phosphatase Albumin Troponin T C-Reactive Protein Wugrn-8-Mywvrbbjr PEP Interpretation Triglycerides Lipase HDL Cholesterol PTH Intact Arterial Blood Glucose 103 H Arterial Blood Ionized Calcium Urine WBC (Auto) Urine Creatinine Urine Total Protein ZINA Screen Crossmatch 03/10/20 03/11/20 03/11/20 23:46 02:52 03:25 WBC Hgb RBC Hct MCV MCH RDW Plt Count Lymph % (Auto) Lymph # [place] % (Auto) [place] # Lymph # (Auto) [place] # (Auto) Eos # (Auto) Seg Neutrophils % Seg Neutrophils # Seg Neuts % (Manual) Lymphocytes % (Manual) Monocytes % (Manual) Nucleated RBC % Seg Neutrophils # Man Lymphocytes # (Manual) Monocytes # (Manual) Eosinophils # (Manual) Basophils # (Manual) ABG pH POC ABG pCO2 POC ABG pO2 77.5 L ABG pO2 ABG HCO3 ABG O2 Saturation ABG Base Excess ABG Hemoglobin 8.0 L ABG Oxyhemoglobin ABG Sodium 135.8 L ABG Glucose Oxyhemoglobin Sodium Potassium Chloride Carbon Dioxide BUN Creatinine Glucose POC Glucose 116 H Calcium Phosphorus Magnesium Direct Bilirubin AST Alkaline Phosphatase Albumin Troponin T 0.093 H C-Reactive Protein Sogap-2-Eskltgsmf PEP Interpretation Triglycerides Lipase HDL Cholesterol PTH Intact Arterial Blood Glucose Arterial Blood Ionized Calcium Urine WBC (Auto) Urine Creatinine Urine Total Protein ZINA Screen Crossmatch 03/11/20 03/11/20 03/11/20 04:32 04:32 06:16 WBC 22.4 H Hgb 7.8 L RBC 3.32 L Hct 25.0 L MCV 75 L MCH 24 L RDW 21.4 H Plt Count 553 H Lymph % (Auto) Lymph # [place] % (Auto) [place] # Lymph # (Auto) [place] # (Auto) Eos # (Auto) Seg Neutrophils % Seg Neutrophils # Seg Neuts % (Manual) 81.0 H Lymphocytes % (Manual) 8.0 L Monocytes % (Manual) 8.0 H Nucleated RBC % Seg Neutrophils # Man 18.1 H Lymphocytes # (Manual) Monocytes # (Manual) 1.8 H Eosinophils # (Manual) Basophils # (Manual) 0.2 H ABG pH POC ABG pCO2 POC ABG pO2 ABG pO2 ABG HCO3 ABG O2 Saturation ABG Base Excess ABG Hemoglobin ABG Oxyhemoglobin ABG Sodium ABG Glucose Oxyhemoglobin Sodium Potassium Chloride 96.6 L Carbon Dioxide BUN 64 H Creatinine 6.5 H Glucose 101 H POC Glucose 142 H Calcium Phosphorus Magnesium Direct Bilirubin AST 41 H Alkaline Phosphatase Albumin 2.7 L Troponin T C-Reactive Protein Cdtiq-7-Kjdprslyy PEP Interpretation Triglycerides Lipase HDL Cholesterol PTH Intact Arterial Blood Glucose Arterial Blood Ionized Calcium Urine WBC (Auto) Urine Creatinine Urine Total Protein ZINA Screen Crossmatch 03/11/20 03/11/20 03/11/20 06:50 07:31 14:31 WBC Hgb 7.7 L RBC Hct 23.7 L MCV MCH RDW Plt Count 553 H Lymph % (Auto) Lymph # [place] % (Auto) [place] # Lymph # (Auto) [place] # (Auto) Eos # (Auto) Seg Neutrophils % Seg Neutrophils # Seg Neuts % (Manual) Lymphocytes % (Manual) Monocytes % (Manual) Nucleated RBC % Seg Neutrophils # Man Lymphocytes # (Manual) Monocytes # (Manual) Eosinophils # (Manual) Basophils # (Manual) ABG pH POC ABG pCO2 POC ABG pO2 ABG pO2 67.8 L ABG HCO3 ABG O2 Saturation ABG Base Excess ABG Hemoglobin ABG Oxyhemoglobin ABG Sodium ABG Glucose Oxyhemoglobin Sodium Potassium Chloride Carbon Dioxide BUN Creatinine Glucose POC Glucose Calcium Phosphorus Magnesium Direct Bilirubin AST Alkaline Phosphatase Albumin Troponin T 0.085 H C-Reactive Protein Ghgki-1-Gfynowjjo PEP Interpretation Triglycerides 247 H Lipase HDL Cholesterol 28 L PTH Intact Arterial Blood Glucose Arterial Blood Ionized Calcium Urine WBC (Auto) Urine Creatinine Urine Total Protein ZINA Screen Crossmatch 03/12/20 03/12/20 03/13/20 03:46 17:33 04:00 WBC Hgb 6.6 L RBC Hct 19.5 L* MCV MCH RDW Plt Count 603 H Lymph % (Auto) Lymph # [place] % (Auto) [place] # Lymph # (Auto) [place] # (Auto) Eos # (Auto) Seg Neutrophils % Seg Neutrophils # Seg Neuts % (Manual) Lymphocytes % (Manual) Monocytes % (Manual) Nucleated RBC % Seg Neutrophils # Man Lymphocytes # (Manual) Monocytes # (Manual) Eosinophils # (Manual) Basophils # (Manual) ABG pH POC ABG pCO2 POC ABG pO2 78.3 L ABG pO2 ABG HCO3 ABG O2 Saturation ABG Base Excess ABG Hemoglobin 7.9 L ABG Oxyhemoglobin ABG Sodium 134.8 L ABG Glucose Oxyhemoglobin Sodium Potassium Chloride Carbon Dioxide BUN Creatinine Glucose POC Glucose 107 H Calcium Phosphorus Magnesium Direct Bilirubin AST Alkaline Phosphatase Albumin Troponin T C-Reactive Protein Bxtlc-0-Kvkfferuy PEP Interpretation Triglycerides Lipase HDL Cholesterol PTH Intact Arterial Blood Glucose Arterial Blood Ionized Calcium Urine WBC (Auto) Urine Creatinine Urine Total Protein ZINA Screen Crossmatch 03/13/20 03/13/20 03/13/20 04:00 08:20 08:45 WBC Hgb 7.0 L RBC Hct 21.8 L MCV MCH RDW Plt Count Lymph % (Auto) Lymph # [place] % (Auto) [place] # Lymph # (Auto) [place] # (Auto) Eos # (Auto) Seg Neutrophils % Seg Neutrophils # Seg Neuts % (Manual) Lymphocytes % (Manual) Monocytes % (Manual) Nucleated RBC % Seg Neutrophils # Man Lymphocytes # (Manual) Monocytes # (Manual) Eosinophils # (Manual) Basophils # (Manual) ABG pH POC ABG pCO2 POC ABG pO2 ABG pO2 ABG HCO3 27.4 H ABG O2 Saturation ABG Base Excess ABG Hemoglobin 8.7 L ABG Oxyhemoglobin ABG Sodium ABG Glucose Oxyhemoglobin 94.6 L Sodium Potassium Chloride Carbon Dioxide BUN Creatinine Glucose POC Glucose Calcium Phosphorus Magnesium Direct Bilirubin AST Alkaline Phosphatase Albumin Troponin T C-Reactive Protein Bttfd-6-Oinefcstl PEP Interpretation Triglycerides Lipase HDL Cholesterol PTH Intact Arterial Blood Glucose Arterial Blood Ionized Calcium Urine WBC (Auto) Urine Creatinine Urine Total Protein ZINA Screen Crossmatch See Detail 03/13/20 03/13/20 03/14/20 14:23 15:38 06:15 WBC Hgb RBC Hct MCV MCH RDW Plt Count Lymph % (Auto) Lymph # [place] % (Auto) [place] # Lymph # (Auto) [place] # (Auto) Eos # (Auto) Seg Neutrophils % Seg Neutrophils # Seg Neuts % (Manual) Lymphocytes % (Manual) Monocytes % (Manual) Nucleated RBC % Seg Neutrophils # Man Lymphocytes # (Manual) Monocytes # (Manual) Eosinophils # (Manual) Basophils # (Manual) ABG pH 7.462 H POC ABG pCO2 POC ABG pO2 75.1 L ABG pO2 ABG HCO3 ABG O2 Saturation ABG Base Excess ABG Hemoglobin 8.9 L ABG Oxyhemoglobin ABG Sodium 135.9 L ABG Glucose Oxyhemoglobin Sodium Potassium Chloride 94.2 L 93.1 L Carbon Dioxide BUN 32 H 45 H Creatinine 3.6 H 4.9 H Glucose POC Glucose Calcium Phosphorus Magnesium Direct Bilirubin AST Alkaline Phosphatase Albumin Troponin T C-Reactive Protein Dngpc-0-Ehsjntieb PEP Interpretation Triglycerides Lipase HDL Cholesterol PTH Intact Arterial Blood Glucose Arterial Blood Ionized Calcium 4.5 L Urine WBC (Auto) Urine Creatinine Urine Total Protein ZINA Screen Crossmatch 03/14/20 03/14/20 03/15/20 06:15 Unknown 04:31 WBC 13.7 H Hgb 7.8 L 7.7 L 8.1 L RBC 3.13 L Hct 22.4 L 23.8 L 24.7 L MCV 76 L MCH 25 L RDW 21.6 H Plt Count 662 H 729 H Lymph % (Auto) Lymph # [place] % (Auto) [place] # Lymph # (Auto) [place] # (Auto) 1.0 H Eos # (Auto) 0.6 H Seg Neutrophils % 71.5 H Seg Neutrophils # 9.8 H Seg Neuts % (Manual) Lymphocytes % (Manual) Monocytes % (Manual) Nucleated RBC % Seg Neutrophils # Man Lymphocytes # (Manual) Monocytes # (Manual) Eosinophils # (Manual) Basophils # (Manual) ABG pH POC ABG pCO2 POC ABG pO2 ABG pO2 ABG HCO3 ABG O2 Saturation ABG Base Excess ABG Hemoglobin ABG Oxyhemoglobin ABG Sodium ABG Glucose Oxyhemoglobin Sodium Potassium Chloride Carbon Dioxide BUN Creatinine Glucose POC Glucose Calcium Phosphorus Magnesium Direct Bilirubin AST Alkaline Phosphatase Albumin Troponin T C-Reactive Protein [id number] PEP Interpretation Triglycerides Lipase HDL Cholesterol PTH Intact Arterial Blood Glucose Arterial Blood Ionized Calcium Urine WBC (Auto) Urine Creatinine Urine Total Protein ZINA Screen Crossmatch 03/15/20 04:31 WBC Hgb RBC Hct MCV MCH RDW Plt Count Lymph % (Auto) Lymph # [place] % (Auto) [place] # Lymph # (Auto) [place] # (Auto) Eos # (Auto) Seg Neutrophils % Seg Neutrophils # Seg Neuts % (Manual) Lymphocytes % (Manual) Monocytes % (Manual) Nucleated RBC % Seg Neutrophils # Man Lymphocytes # (Manual) Monocytes # (Manual) Eosinophils # (Manual) Basophils # (Manual) ABG pH POC ABG pCO2 POC ABG pO2 ABG pO2 ABG HCO3 ABG O2 Saturation ABG Base Excess ABG Hemoglobin ABG Oxyhemoglobin ABG Sodium ABG Glucose Oxyhemoglobin Sodium Potassium Chloride 95.9 L Carbon Dioxide BUN 60 H Creatinine 5.6 H Glucose POC Glucose Calcium Phosphorus Magnesium Direct Bilirubin AST Alkaline Phosphatase Albumin Troponin T C-Reactive Protein [id number] PEP Interpretation Triglycerides Lipase HDL Cholesterol PTH Intact Arterial Blood Glucose Arterial Blood Ionized Calcium Urine WBC (Auto) Urine Creatinine Urine Total Protein ZINA Screen Crossmatch Chest x-ray: image reviewed Allied health notes reviewed: RT
[2020-03-15 13:54] LABS: ABG Base Excess 3.9 mmol/L (-2.0-3.0); ABG HCO3 28.9 mmol/L (20.0-26.0); ABG Methemoglobin 0.5 % (0.0-1.5); ABG Oxygen Saturation 97.1 % (95.0-99.0); ABG PCO2 45.5 mm Hg; ABG PH 7.42 pH Units (7.350-7.450); ABG PO2 85.8 mm Hg (80.0-90.0)
--- NOTE | 2020-03-15 17:27 | Event Note ---
Date: 03/15/20 Patient is extubated, passed the bedside swallow eval Start with liquids and Jell-O advance to mechanical soft diet as tolerated
[2020-03-15] MEDS: MEROPENEM/NS 1 GRAM/100 ML 1 GRAM/100 ML BAG IV SCH (18:09)
--- NOTE | 2020-03-15 18:58 | Progress Note ---
Assessment and Plan Assessment * Acute kidney injury attributed to prerenal azotemia/ATN related to pancreatitis vs NSAID induced nephropathy vs PPI --Serologies: ANCA, C3, C4 - negative; ZINA positive * Acute hypoxic respiratory failure * Chest pain --Elevated troponin * Metabolic acidosis * Acute severe pancreatitis * Fever * Accelerated hypertension - resolved * Anemia Plan: * HD tomorrow. Continue MWF schedule for now- UF as tolerated * Monitor SCr trend and UOP for evidence of recovery - Uncertain re: renal prognosis. Patient reports 9 year hx of hypertension, untreated at times. She reports that she was not under the consistent care of a healthcare provider. * Cardiology recommendations reviewed - conservative cardiac management for now * GI recommendations reviewed - may need MRCP in future * Continue antiHTN medications * Abx per ID - currently on Meropenem * Hold ACEi for now * Epogen TIW prn * Dose medications for renal function * Avoid potential nephrotoxins Subjective Date of service: 03/15/20 Principal diagnosis: HTNsive urgency; Morbid obesity; Ac. pancreatitis; Abdominal pain Interval history: No acute events. Patient has been extubated. She denies SOB. Objective - Vital Signs Vital signs: Vital Signs - 12hr 03/15/20 03/15/20 03/15/20 07:00 07:15 07:30 Temperature Pulse Rate 84 86 84 Pulse Rate [ Anterior Bilateral Throughout] Pulse Rate [ From Monitor] Respiratory 15 17 16 Rate Respiratory Rate [Abdomen] Respiratory Rate [Anterior Bilateral Throughout] Blood Pressure 128/81 146/96 126/82 O2 Sat by Pulse 100 100 100 Oximetry 03/15/20 03/15/20 03/15/20 07:45 08:00 08:15 Temperature 98.7 F Pulse Rate 85 85 84 Pulse Rate [ Anterior Bilateral Throughout] Pulse Rate [ 81 From Monitor] Respiratory 15 16 16 Rate Respiratory Rate [Abdomen] Respiratory Rate [Anterior Bilateral Throughout] Blood Pressure 126/85 129/85 119/77 O2 Sat by Pulse 100 100 100 Oximetry 03/15/20 03/15/20 03/15/20 08:30 08:41 08:45 Temperature Pulse Rate 87 93 H 94 H Pulse Rate [ 94 H Anterior Bilateral Throughout] Pulse Rate [ From Monitor] Respiratory 16 18 Rate Respiratory Rate [Abdomen] Respiratory 18 Rate [Anterior Bilateral Throughout] Blood Pressure 139/90 135/87 135/87 O2 Sat by Pulse 100 100 100 Oximetry 03/15/20 03/15/20 03/15/20 08:50 09:00 09:15 Temperature Pulse Rate 95 H 96 H 97 H Pulse Rate [ Anterior Bilateral Throughout] Pulse Rate [ From Monitor] Respiratory 22 19 20 Rate Respiratory Rate [Abdomen] Respiratory Rate [Anterior Bilateral Throughout] Blood Pressure 145/97 145/97 155/92 O2 Sat by Pulse 100 100 100 Oximetry 03/15/20 03/15/20 03/15/20 09:30 09:45 10:00 Temperature Pulse Rate 93 H 97 H 93 H Pulse Rate [ Anterior Bilateral Throughout] Pulse Rate [ From Monitor] Respiratory 22 18 20 Rate Respiratory 20 Rate [Abdomen] Respiratory Rate [Anterior Bilateral Throughout] Blood Pressure 139/91 145/91 140/94 O2 Sat by Pulse 99 98 99 Oximetry 03/15/20 03/15/20 03/15/20 10:15 10:30 10:45 Temperature Pulse Rate 91 H 93 H 91 H Pulse Rate [ Anterior Bilateral Throughout] Pulse Rate [ From Monitor] Respiratory 19 17 19 Rate Respiratory Rate [Abdomen] Respiratory Rate [Anterior Bilateral Throughout] Blood Pressure 139/89 149/92 138/87 O2 Sat by Pulse 99 100 99 Oximetry 03/15/20 03/15/20 03/15/20 10:52 11:00 11:15 Temperature Pulse Rate 90 89 88 Pulse Rate [ Anterior Bilateral Throughout] Pulse Rate [ From Monitor] Respiratory 18 20 Rate Respiratory Rate [Abdomen] Respiratory Rate [Anterior Bilateral Throughout] Blood Pressure 138/87 140/82 125/84 O2 Sat by Pulse 99 99 Oximetry 03/15/20 03/15/20 03/15/20 11:30 11:45 12:00 Temperature 98.2 F Pulse Rate 87 86 88 Pulse Rate [ Anterior Bilateral Throughout] Pulse Rate [ 87 From Monitor] Respiratory 18 20 19 Rate Respiratory Rate [Abdomen] Respiratory Rate [Anterior Bilateral Throughout] Blood Pressure 137/89 126/82 138/89 O2 Sat by Pulse 99 99 100 Oximetry 03/15/20 03/15/20 03/15/20 12:15 12:30 12:38 Temperature Pulse Rate 86 87 89 Pulse Rate [ Anterior Bilateral Throughout] Pulse Rate [ From Monitor] Respiratory 21 21 23 Rate Respiratory Rate [Abdomen] Respiratory Rate [Anterior Bilateral Throughout] Blood Pressure 133/87 123/86 123/86 O2 Sat by Pulse 99 100 100 Oximetry 03/15/20 03/15/20 03/15/20 12:45 13:00 13:07 Temperature Pulse Rate 93 H 93 H Pulse Rate [ 98 H Anterior Bilateral Throughout] Pulse Rate [ From Monitor] Respiratory 24 23 Rate Respiratory Rate [Abdomen] Respiratory 22 Rate [Anterior Bilateral Throughout] Blood Pressure 146/96 146/96 O2 Sat by Pulse 100 100 Oximetry 03/15/20 03/15/20 03/15/20 13:15 13:30 13:45 Temperature Pulse Rate 94 H 98 H 96 H Pulse Rate [ Anterior Bilateral Throughout] Pulse Rate [ From Monitor] Respiratory 21 23 26 H Rate Respiratory Rate [Abdomen] Respiratory Rate [Anterior Bilateral Throughout] Blood Pressure 138/93 138/96 136/84 O2 Sat by Pulse 100 100 100 Oximetry 03/15/20 03/15/20 03/15/20 14:00 14:15 14:20 Temperature Pulse Rate 96 H 99 H 99 H Pulse Rate [ Anterior Bilateral Throughout] Pulse Rate [ From Monitor] Respiratory 16 20 Rate Respiratory Rate [Abdomen] Respiratory Rate [Anterior Bilateral Throughout] Blood Pressure 133/98 126/93 126/93 O2 Sat by Pulse 100 100 Oximetry 03/15/20 03/15/20 03/15/20 14:30 14:45 15:00 Temperature Pulse Rate 104 H 101 H 96 H Pulse Rate [ Anterior Bilateral Throughout] Pulse Rate [ From Monitor] Respiratory 21 17 15 Rate Respiratory Rate [Abdomen] Respiratory Rate [Anterior Bilateral Throughout] Blood Pressure 126/93 147/85 119/75 O2 Sat by Pulse 98 98 100 Oximetry 03/15/20 03/15/20 03/15/20 15:15 15:30 15:45 Temperature Pulse Rate 96 H 99 H 99 H Pulse Rate [ Anterior Bilateral Throughout] Pulse Rate [ From Monitor] Respiratory 20 18 20 Rate Respiratory Rate [Abdomen] Respiratory Rate [Anterior Bilateral Throughout] Blood Pressure 129/78 140/91 138/81 O2 Sat by Pulse 100 100 100 Oximetry 03/15/20 03/15/20 03/15/20 16:00 16:01 16:15 Temperature 98.8 F Pulse Rate 98 H 101 H 101 H Pulse Rate [ Anterior Bilateral Throughout] Pulse Rate [ 100 H From Monitor] Respiratory 16 18 28 H Rate Respiratory Rate [Abdomen] Respiratory Rate [Anterior Bilateral Throughout] Blood Pressure 127/65 162/112 O2 Sat by Pulse 100 100 99 Oximetry 03/15/20 03/15/20 03/15/20 16:30 16:45 17:00 Temperature Pulse Rate 103 H 102 H 101 H Pulse Rate [ Anterior Bilateral Throughout] Pulse Rate [ From Monitor] Respiratory 21 19 22 Rate Respiratory Rate [Abdomen] Respiratory Rate [Anterior Bilateral Throughout] Blood Pressure 166/110 135/89 144/87 O2 Sat by Pulse 99 99 95 Oximetry 03/15/20 03/15/20 03/15/20 17:15 17:30 17:45 Temperature Pulse Rate 101 H 101 H 100 H Pulse Rate [ Anterior Bilateral Throughout] Pulse Rate [ From Monitor] Respiratory 29 H 26 H 20 Rate Respiratory Rate [Abdomen] Respiratory Rate [Anterior Bilateral Throughout] Blood Pressure 145/84 124/88 133/87 O2 Sat by Pulse 95 96 95 Oximetry 03/15/20 18:00 Temperature Pulse Rate 98 H Pulse Rate [ Anterior Bilateral Throughout] Pulse Rate [ From Monitor] Respiratory 20 Rate Respiratory Rate [Abdomen] Respiratory Rate [Anterior Bilateral Throughout] Blood Pressure 134/92 O2 Sat by Pulse 100 Oximetry - General Appearance General appearance: well-developed, well-nourished EENT: ATNC Respiratory: Present: Clear to Ascultation Cardiology: regular, S1S2 Gastrointestinal: normal, no tenderness, distended Integumentary: no rash, warm and dry Musculoskeletal: other (no edema) Psychiatric: cooperative - Lab 03/15/20 04:31 03/15/20 04:31 Most recent lab results ABG pH 7.420 pH Units (7.350-7.450) 03/15/20 13:20 ABG pCO2 45.5 mm Hg 03/15/20 13:20 ABG pO2 85.8 mm Hg (80.0-90.0) 03/15/20 13:20 ABG HCO3 28.9 mmol/L (20.0-26.0) H 03/15/20 13:20 ABG O2 Saturation 97.1 % (95.0-99.0) 03/15/20 13:20 Calcium 9.8 mg/dL (8.4-10.2) 03/15/20 04:31 Phosphorus 6.10 mg/dL (2.5-4.5) H 03/01/20 04:37 Magnesium 2.00 mg/dL (1.7-2.3) 03/07/20 05:03 Urine Creatinine 161.0 mg/dL (0.1-20.0) H 02/25/20 22:55 Urine Total Protein 150 mg/dL (5-11.8) H 02/25/20 22:55 Medications & Allergies - Medications Allergies/Adverse Reactions: Allergies No Known Allergies Allergy (Unverified 09/05/19 10:15) Home Medications: Home Medications Medication Instructions Recorded Confirmed Last Taken Type Amlodipine Besylate [Norvasc] 10 mg PO DAILY 09/05/19 02/24/20 09/04/19 History Furosemide [Lasix] 20 mg PO QDAY #30 tablet 09/05/19 02/24/20 Unknown Rx Lisinopril [Zestril] 5 mg PO DAILY #30 tablet 09/05/19 02/24/20 Unknown Rx Metoprolol [Lopressor TAB] 25 mg PO BID #60 tablet 09/05/19 02/24/20 Unknown Rx Active Medications: Generic Name Dose Route Start Last Admin Trade Name Freq PRN Reason Stop Dose Admin Acetaminophen 650 mg 02/26/20 16:23 03/14/20 22:03 Tylenol PO 650 mg Q4H PRN Administration Pain, Mild (1-3)/ Temp >100. Albuterol 2.5 mg 02/27/20 17:55 Proventil IH Q4HRT PRN Shortness Of Breath Albuterol/Ipratropium 1 ampul 02/28/20 12:17 03/15/20 13:07 Duoneb *Not For Prn Use* IH 1 ampul Q6HRT INDU Administration Amlodipine Besylate 10 mg 02/28/20 10:00 03/15/20 10:52 Amlodipine PO 10 mg QDAY INDU Administration Lipase/Protease/Amylase 1 each 03/01/20 08:46 Pancrealivia Davis 10,500 Unit FEEDTUBE PRN PRN For Clogged Feeding Tube Aspirin 325 mg 03/15/20 11:00 03/15/20 11:29 Aspirin PO 325 mg QDAY INDU Administration Dextrose 50 ml 02/29/20 08:00 03/01/20 00:20 D50w (25gm) Syringe IV 10 ml Q30MIN PRN Administration HYPOGLYCEMIA Protocol Epoetin Prosper 10,000 unit 03/12/20 10:00 Procrit IV NIKOLAY PRN hemodialysis Fentanyl 50 mcg 03/11/20 06:01 Sublimaze IV Q10MIN PRN ANALGESIA Glycopyrrolate 2 mg 03/14/20 14:00 03/15/20 10:53 Glycopyrrolate PO 2 mg BID INDU Administration Heparin Sodium (Porcine) 5,000 unit 03/11/20 14:00 03/15/20 14:20 Heparin SUB-Q 5,000 unit Q8HR INDU Administration Hydralazine HCl 25 mg 03/04/20 14:00 03/15/20 14:20 Apresoline PO 25 mg Q8HR INDU Administration Hydrophilic Ointment 1 applic 03/11/20 06:01 Vaseline Lip Therapy TP Q2HR PRN Dry Lips MEROPENEM/NS 1 GRAM/100 ML 1 gram in 100 mls @ 100 mls/hr 03/03/20 18:00 03/15/20 18:09 Merrem/Ns 1 Gram/100 Ml IV 100 mls/hr QPM INDU Administration Protocol Sodium Chloride 100 mls @ 999 mls/hr 03/08/20 17:05 Nacl 0.9% IV NIKOLAY PRN Hypotension Fentanyl Citrate 2,000 mcg in 100 mls @ 4.55 mls/hr 03/11/20 07:00 03/15/20 01:44 Fentanyl Drip Premix IV 2 mcg/kg/hr TITR INDU 9.1 mls/hr Administration Protocol 1 MCG/KG/HR Labetalol HCl 10 mg 02/28/20 09:00 03/11/20 03:04 Labetalol IV 10 mg Q4H PRN Administration Hypertension Lansoprazole 30 mg 03/06/20 10:00 03/15/20 10:53 Prevacid Solutab FEEDTUBE 30 mg QDAY INDU Administration Lorazepam 1 mg 03/10/20 12:00 03/13/20 18:48 Ativan IV 1 mg Q4H PRN Administration AGITATION Metoprolol Tartrate 25 mg 02/28/20 10:00 03/15/20 10:52 Metoprolol PO 25 mg BID [facility] Administration Morphine Sulfate 2 mg 03/11/20 05:13 Morphine IV Q4H PRN Pain, Moderate (4-6) Multi-Ingred Cream/Lotion/Oil/Oint 1 applic 03/11/20 06:01 Artificial Tears Ophth Oint OU Q4HR PRN Dry Eye(s) Nitroglycerin 0.4 mg 03/11/20 05:14 Nitrostat SL .Q5MIN PRN Chest Pain Ondansetron HCl 4 mg 02/24/20 06:45 02/25/20 23:33 Zofran IV 4 mg Q8H PRN Administration Nausea And Vomiting Quetiapine Fumarate 100 mg 03/06/20 10:00 03/15/20 10:52 Seroquel PO 100 mg QAM INDU Administration Quetiapine Fumarate 200 mg 03/06/20 22:00 03/14/20 21:57 Seroquel PO 200 mg QHS INDU Administration Scopolamine 1 each 03/04/20 16:00 03/13/20 09:39 Transderm-Scop TD 1 each Q3D INDU Administration Simple Syrup 15 ml 03/01/20 08:46 Simple Syrup FEEDTUBE PRN PRN Hypoglycemia Simple Syrup 30 ml 03/01/20 08:46 Simple Syrup FEEDTUBE PRN PRN Hypoglycemia Sodium Bicarbonate 325 mg 03/01/20 08:46 Sodium Bicarbonate FEEDTUBE PRN PRN For Clogged Feeding Tube Sodium Chloride 10 ml 02/24/20 10:00 03/15/20 10:53 Sodium Chloride Flush Syringe 10 Ml IV 10 ml BID INDU Administration Sodium Chloride 10 ml 02/24/20 06:45 03/10/20 09:06 Sodium Chloride Flush Syringe 10 Ml IV 10 ml PRN PRN Administration LINE FLUSH Tamsulosin HCl 0.4 mg 03/01/20 17:00 03/15/20 10:52 Flomax PO 0.4 mg QDAY INDU Administration
[2020-03-15] MEDS: QUEtiapine 200 MG TAB PO SCH (21:55)
[2020-03-16] MEDS: MORPHINE 2 MG/1 ML INJ IV PRN (01:46)
[2020-03-16] MEDS: IPRATROPIUM/ALBUTEROL SULFATE 3 ML AMPUL.NEB IH SCH ×2 (02:00→08:18)
[2020-03-16] MEDS: HEPARIN 5,000 UNIT/1 ML VIAL SUB-Q SCH ×3 (05:32→21:44)
[2020-03-16] MEDS: hydrALAZINE 25 MG TAB PO SCH ×3 (05:33→21:44)
[2020-03-16 06:09] LABS: Basophils # (Auto) 0.1 K/mm3 (0.0-0.1); Basophils % (Auto) 0.8 % (0.0-1.8); Eosinophils # (Auto) 0.6 K/mm3 (0.0-0.4); Eosinophils % (Auto) 4.4 % (0.0-4.3); Hematocrit 25.8 % (30.3-42.9); Hemoglobin 8.3 gm/dl (10.1-14.3); Lymphocytes # (Auto) 1.5 K/mm3 (1.2-5.4); Lymphocytes % (Auto) 11.1 % (13.4-35.0); Mean Corpuscular HGB Conc 32 % (30-34); Mean Corpuscular Volume 77 fl (79-97); Monocytes # (Auto) 0.9 K/mm3 (0.0-0.8); Monocytes % (Auto) 6.3 % (0.0-7.3); Platelet Count 799 K/mm3 (140-440); Red Blood Count 3.35 M/mm3 (3.65-5.03)
[2020-03-16 06:10] LABS: Red Cell Distribution Width 22.1 % (13.2-15.2)
[2020-03-16 06:36] LABS: Albumin 2.7 g/dL (3.9-5); Calcium 9.8 mg/dL (8.4-10.2)
--- NOTE | 2020-03-16 09:57 | Gastroenterology Progress Note ---
Assessment and Plan severe acute pancreatitis - has had prolonged hospitalization due to multi-organ failure following admission for acute pancreatitis. gi symptoms are mostly resolved at this point. tolerating liquids, okay to advance as diet as tolerated. no further inpt recommendations from gi at this time. repeat CT scan in 4-6 weeks or sooner if clinically indicated. will sign off, please call as needed Subjective Date of service: 03/16/20 Principal diagnosis: HTNsive urgency; Morbid obesity; Ac. pancreatitis; Abdominal pain Interval history: pt receiving HD at bedside; extubated, tolerating liquids. denies abd pain Objective - Constitutional Vitals: Temp Pulse Resp BP Pulse Ox 98.4 F 99 H 17 155/73 100 03/16/20 09:00 03/16/20 09:30 03/16/20 09:00 03/16/20 09:30 03/16/20 09:00 General appearance: no acute distress - Respiratory Respiratory effort: normal Respiratory: bilateral: CTA - Cardiovascular Rhythm: regular Heart Sounds: Present: S1 & S2 - Gastrointestinal General gastrointestinal: Present: soft, non-tender, non-distended - Neurologic Neurological: alert and oriented x3 - Labs CBC & Chem 7: 03/16/20 04:52 03/16/20 04:52 Labs: Laboratory Results - last 24 hr 03/15/20 03/15/20 03/15/20 12:16 13:20 17:46 WBC RBC Hgb Hct MCV MCH MCHC RDW Plt Count Lymph % (Auto) [place] % (Auto) Eos % (Auto) Baso % (Auto) Lymph # (Auto) [place] # (Auto) Eos # (Auto) Baso # (Auto) Seg Neutrophils % Seg Neutrophils # ABG pH 7.420 ABG pCO2 45.5 ABG pO2 85.8 ABG HCO3 28.9 H ABG O2 Saturation 97.1 ABG O2 Content 11.6 ABG Base Excess 3.9 H ABG Hemoglobin 8.6 L ABG Carboxyhemoglobin 1.7 ABG Methemoglobin 0.5 Oxyhemoglobin 94.9 L FiO2 30 Sodium Potassium Chloride Carbon Dioxide Anion Gap BUN Creatinine Estimated GFR BUN/Creatinine Ratio Glucose POC Glucose 74 100 Calcium Total Bilirubin AST ALT Alkaline Phosphatase Total Protein Albumin Albumin/Globulin Ratio 03/16/20 03/16/20 03/16/20 00:17 04:52 04:52 WBC 13.9 H RBC 3.35 L Hgb 8.3 L Hct 25.8 L MCV 77 L MCH 25 L MCHC 32 RDW 22.1 H Plt Count 799 H Lymph % (Auto) 11.1 L [place] % (Auto) 6.3 Eos % (Auto) 4.4 H Baso % (Auto) 0.8 Lymph # (Auto) 1.5 [place] # (Auto) 0.9 H Eos # (Auto) 0.6 H Baso # (Auto) 0.1 Seg Neutrophils % 77.4 H Seg Neutrophils # 10.8 H ABG pH ABG pCO2 ABG pO2 ABG HCO3 ABG O2 Saturation ABG O2 Content ABG Base Excess ABG Hemoglobin ABG Carboxyhemoglobin ABG Methemoglobin Oxyhemoglobin FiO2 Sodium 137 Potassium 4.2 Chloride 93.8 L Carbon Dioxide 23 Anion Gap 24 BUN 72 H Creatinine 5.8 H Estimated GFR 10 BUN/Creatinine Ratio 12 Glucose 79 POC Glucose 111 H Calcium 9.8 Total Bilirubin 0.30 AST 30 ALT 14 Alkaline Phosphatase 75 Total Protein 7.6 Albumin 2.7 L Albumin/Globulin Ratio 0.6 03/16/20 05:14 WBC RBC Hgb Hct MCV MCH MCHC RDW Plt Count Lymph % (Auto) [place] % (Auto) Eos % (Auto) Baso % (Auto) Lymph # (Auto) [place] # (Auto) Eos # (Auto) Baso # (Auto) Seg Neutrophils % Seg Neutrophils # ABG pH ABG pCO2 ABG pO2 ABG HCO3 ABG O2 Saturation ABG O2 Content ABG Base Excess ABG Hemoglobin ABG Carboxyhemoglobin ABG Methemoglobin Oxyhemoglobin FiO2 Sodium Potassium Chloride Carbon Dioxide Anion Gap BUN Creatinine Estimated GFR BUN/Creatinine Ratio Glucose POC Glucose 94 Calcium Total Bilirubin AST ALT Alkaline Phosphatase Total Protein Albumin Albumin/Globulin Ratio
--- NOTE | 2020-03-16 10:21 | Progress Note ---
Assessment and Plan Assessment * Acute kidney injury attributed to prerenal azotemia/ATN related to pancreatitis vs NSAID induced nephropathy vs PPI --Serologies: ANCA, C3, C4 - negative; ZINA positive * Acute hypoxic respiratory failure * Chest pain --Elevated troponin * Metabolic acidosis * Acute severe pancreatitis * Fever * Accelerated hypertension - resolved * Anemia Plan: * Continue HD MWF schedule for now- UF as tolerated * Monitor SCr trend and UOP for evidence of recovery - Uncertain re: renal prognosis. Patient reports 9 year hx of hypertension, untreated at times. She reports that she was not under the consistent care of a healthcare provider. * Cardiology recommendations reviewed - conservative cardiac management for now * GI recommendations reviewed * Continue antiHTN medications * Abx per ID * Hold ACEi for now * Epogen TIW prn * Dose medications for renal function * Avoid potential nephrotoxins Subjective Date of service: 03/16/20 Principal diagnosis: HTNsive urgency; Morbid obesity; Ac. pancreatitis; Abdominal pain Interval history: resting in bed today Objective - Exam Narrative Exam: General appearance: well-developed, well-nourished EENT: ATNC Respiratory: Present: Clear to Ascultation Cardiology: regular, S1S2 Gastrointestinal: normal, no tenderness, distended Integumentary: no rash, warm and dry Musculoskeletal: other (no edema) Psychiatric: cooperative - Vital Signs Vital signs: Vital Signs - 12hr 03/15/20 03/15/20 03/15/20 22:30 22:45 23:00 Temperature Pulse Rate 98 H 100 H 99 H Pulse Rate [ From Monitor] Pulse Rate [ Left Upper Lobe ] Respiratory 25 H 18 18 Rate Respiratory Rate [Left Upper Lobe] Blood Pressure 136/92 146/88 136/91 O2 Sat by Pulse 98 100 98 Oximetry O2 Sat by Pulse Oximetry [Left Upper Lobe] 03/15/20 03/15/20 03/15/20 23:15 23:30 23:45 Temperature Pulse Rate 96 H 93 H 92 H Pulse Rate [ From Monitor] Pulse Rate [ Left Upper Lobe ] Respiratory 25 H 25 H 24 Rate Respiratory Rate [Left Upper Lobe] Blood Pressure 126/81 128/78 133/80 O2 Sat by Pulse 100 100 98 Oximetry O2 Sat by Pulse Oximetry [Left Upper Lobe] 03/15/20 03/16/20 03/16/20 23:46 00:00 00:15 Temperature 98.4 F Pulse Rate 99 H 92 H 91 H Pulse Rate [ 98 H From Monitor] Pulse Rate [ Left Upper Lobe ] Respiratory 27 H 22 23 Rate Respiratory Rate [Left Upper Lobe] Blood Pressure 128/78 142/87 144/88 O2 Sat by Pulse 100 100 99 Oximetry O2 Sat by Pulse Oximetry [Left Upper Lobe] 03/16/20 03/16/20 03/16/20 00:30 00:45 01:00 Temperature Pulse Rate 90 96 H 89 Pulse Rate [ From Monitor] Pulse Rate [ Left Upper Lobe ] Respiratory 25 H 18 20 Rate Respiratory Rate [Left Upper Lobe] Blood Pressure 126/82 148/109 136/84 O2 Sat by Pulse 99 100 98 Oximetry O2 Sat by Pulse Oximetry [Left Upper Lobe] 03/16/20 03/16/20 03/16/20 01:15 01:30 01:45 Temperature Pulse Rate 96 H 93 H 94 H Pulse Rate [ From Monitor] Pulse Rate [ Left Upper Lobe ] Respiratory 15 26 H 16 Rate Respiratory Rate [Left Upper Lobe] Blood Pressure 167/112 134/80 148/96 O2 Sat by Pulse 95 89 94 Oximetry O2 Sat by Pulse Oximetry [Left Upper Lobe] 03/16/20 03/16/20 03/16/20 02:00 02:15 02:30 Temperature Pulse Rate 92 H 90 92 H Pulse Rate [ From Monitor] Pulse Rate [ 101 H Left Upper Lobe ] Respiratory 24 18 23 Rate Respiratory 20 Rate [Left Upper Lobe] Blood Pressure 142/89 133/80 123/81 O2 Sat by Pulse 99 99 99 Oximetry O2 Sat by Pulse Oximetry [Left Upper Lobe] 03/16/20 03/16/20 03/16/20 02:45 03:00 03:15 Temperature Pulse Rate 94 H 93 H 97 H Pulse Rate [ From Monitor] Pulse Rate [ Left Upper Lobe ] Respiratory 21 23 22 Rate Respiratory Rate [Left Upper Lobe] Blood Pressure 147/102 153/97 153/97 O2 Sat by Pulse 100 97 Oximetry O2 Sat by Pulse Oximetry [Left Upper Lobe] 03/16/20 03/16/20 03/16/20 03:22 03:30 03:45 Temperature 98.4 F Pulse Rate 89 93 H Pulse Rate [ From Monitor] Pulse Rate [ Left Upper Lobe ] Respiratory 25 H 25 H Rate Respiratory Rate [Left Upper Lobe] Blood Pressure 152/97 155/93 O2 Sat by Pulse 98 100 Oximetry O2 Sat by Pulse Oximetry [Left Upper Lobe] 03/16/20 03/16/20 03/16/20 04:00 04:15 04:30 Temperature Pulse Rate 91 H 92 H 93 H Pulse Rate [ 91 H From Monitor] Pulse Rate [ Left Upper Lobe ] Respiratory 24 22 24 Rate Respiratory Rate [Left Upper Lobe] Blood Pressure 128/82 141/80 141/82 O2 Sat by Pulse 99 99 96 Oximetry O2 Sat by Pulse Oximetry [Left Upper Lobe] 03/16/20 03/16/20 03/16/20 04:45 05:00 05:15 Temperature Pulse Rate 99 H 97 H 99 H Pulse Rate [ From Monitor] Pulse Rate [ Left Upper Lobe ] Respiratory 28 H 20 32 H Rate Respiratory Rate [Left Upper Lobe] Blood Pressure 158/104 152/99 153/93 O2 Sat by Pulse 94 93 98 Oximetry O2 Sat by Pulse Oximetry [Left Upper Lobe] 03/16/20 03/16/20 03/16/20 05:30 05:33 05:45 Temperature Pulse Rate 97 H 101 H 98 H Pulse Rate [ From Monitor] Pulse Rate [ Left Upper Lobe ] Respiratory 25 H 29 H Rate Respiratory Rate [Left Upper Lobe] Blood Pressure 138/77 138/77 143/78 O2 Sat by Pulse 94 97 Oximetry O2 Sat by Pulse Oximetry [Left Upper Lobe] 03/16/20 03/16/20 03/16/20 06:00 06:15 06:31 Temperature Pulse Rate 99 H 111 H 100 H Pulse Rate [ From Monitor] Pulse Rate [ Left Upper Lobe ] Respiratory 29 H 19 20 Rate Respiratory Rate [Left Upper Lobe] Blood Pressure 181/107 181/107 159/82 O2 Sat by Pulse 96 96 Oximetry O2 Sat by Pulse Oximetry [Left Upper Lobe] 03/16/20 03/16/20 03/16/20 06:45 07:00 07:15 Temperature Pulse Rate 103 H 101 H 101 H Pulse Rate [ From Monitor] Pulse Rate [ Left Upper Lobe ] Respiratory 20 23 24 Rate Respiratory Rate [Left Upper Lobe] Blood Pressure 186/104 166/81 148/85 O2 Sat by Pulse 94 93 95 Oximetry O2 Sat by Pulse Oximetry [Left Upper Lobe] 03/16/20 03/16/20 03/16/20 07:31 07:45 08:18 Temperature Pulse Rate 104 H 101 H Pulse Rate [ From Monitor] Pulse Rate [ 107 H Left Upper Lobe ] Respiratory 32 H 29 H Rate Respiratory 16 Rate [Left Upper Lobe] Blood Pressure 148/85 148/85 O2 Sat by Pulse 95 97 Oximetry O2 Sat by Pulse Oximetry [Left Upper Lobe] 03/16/20 03/16/20 03/16/20 09:00 09:13 09:15 Temperature 98.4 F Pulse Rate 101 H 98 H 98 H Pulse Rate [ From Monitor] Pulse Rate [ Left Upper Lobe ] Respiratory 17 Rate Respiratory Rate [Left Upper Lobe] Blood Pressure 140/67 148/77 149/80 O2 Sat by Pulse Oximetry O2 Sat by Pulse 100 Oximetry [Left Upper Lobe] 03/16/20 09:30 Temperature Pulse Rate 99 H Pulse Rate [ From Monitor] Pulse Rate [ Left Upper Lobe ] Respiratory Rate Respiratory Rate [Left Upper Lobe] Blood Pressure 155/73 O2 Sat by Pulse Oximetry O2 Sat by Pulse Oximetry [Left Upper Lobe] - Lab 03/16/20 04:52 03/16/20 04:52 Most recent lab results ABG pH 7.420 pH Units (7.350-7.450) 03/15/20 13:20 ABG pCO2 45.5 mm Hg 03/15/20 13:20 ABG pO2 85.8 mm Hg (80.0-90.0) 03/15/20 13:20 ABG HCO3 28.9 mmol/L (20.0-26.0) H 03/15/20 13:20 ABG O2 Saturation 97.1 % (95.0-99.0) 03/15/20 13:20 Calcium 9.8 mg/dL (8.4-10.2) 03/16/20 04:52 Phosphorus 6.10 mg/dL (2.5-4.5) H 03/01/20 04:37 Magnesium 2.00 mg/dL (1.7-2.3) 03/07/20 05:03 Urine Creatinine 161.0 mg/dL (0.1-20.0) H 02/25/20 22:55 Urine Total Protein 150 mg/dL (5-11.8) H 02/25/20 22:55 Medications & Allergies - Medications Allergies/Adverse Reactions: Allergies No Known Allergies Allergy (Unverified 09/05/19 10:15) Home Medications: Home Medications Medication Instructions Recorded Confirmed Last Taken Type Amlodipine Besylate [Norvasc] 10 mg PO DAILY 09/05/19 02/24/20 09/04/19 History Furosemide [Lasix] 20 mg PO QDAY #30 tablet 09/05/19 02/24/20 Unknown Rx Lisinopril [Zestril] 5 mg PO DAILY #30 tablet 09/05/19 02/24/20 Unknown Rx Metoprolol [Lopressor TAB] 25 mg PO BID #60 tablet 09/05/19 02/24/20 Unknown Rx Active Medications: Generic Name Dose Route Start Last Admin Trade Name Freq PRN Reason Stop Dose Admin Acetaminophen 650 mg 02/26/20 16:23 03/14/20 22:03 Tylenol PO 650 mg Q4H PRN Administration Pain, Mild (1-3)/ Temp >100. Albuterol 2.5 mg 02/27/20 17:55 Proventil IH Q4HRT PRN Shortness Of Breath Albuterol/Ipratropium 1 ampul 02/28/20 12:17 03/16/20 08:18 Duoneb *Not For Prn Use* IH 1 ampul Q6HRT INDU Administration Amlodipine Besylate 10 mg 02/28/20 10:00 03/15/20 10:52 Amlodipine PO 10 mg QDAY INDU Administration Lipase/Protease/Amylase 1 each 03/01/20 08:46 Pancrealivia Davis 10,500 Unit FEEDTUBE PRN PRN For Clogged Feeding Tube Aspirin 325 mg 03/15/20 11:00 03/15/20 11:29 Aspirin PO 325 mg QDAY INDU Administration Dextrose 50 ml 02/29/20 08:00 03/01/20 00:20 D50w (25gm) Syringe IV 10 ml Q30MIN PRN Administration HYPOGLYCEMIA Protocol Epoetin Prosper 10,000 unit 03/12/20 10:00 Procrit IV NIKOLAY PRN hemodialysis Glycopyrrolate 2 mg 03/14/20 14:00 03/15/20 21:56 Glycopyrrolate PO 2 mg BID INDU Administration Heparin Sodium (Porcine) 5,000 unit 03/11/20 14:00 03/16/20 05:32 Heparin SUB-Q 5,000 unit Q8HR INDU Administration Hydralazine HCl 25 mg 03/04/20 14:00 03/16/20 05:33 Apresoline PO 25 mg Q8HR INDU Administration Hydrophilic Ointment 1 applic 03/11/20 06:01 Vaseline Lip Therapy TP Q2HR PRN Dry Lips MEROPENEM/NS 1 GRAM/100 ML 1 gram in 100 mls @ 100 mls/hr 03/03/20 18:00 03/15/20 19:10 Merrem/Ns 1 Gram/100 Ml IV 03/16/20 18:59 Infused QPM INDU Infusion Protocol Sodium Chloride 100 mls @ 999 mls/hr 03/08/20 17:05 Nacl 0.9% IV NIKOLAY PRN Hypotension Labetalol HCl 10 mg 02/28/20 09:00 03/11/20 03:04 Labetalol IV 10 mg Q4H PRN Administration Hypertension Lansoprazole 30 mg 03/06/20 10:00 03/15/20 10:53 Prevacid Solutab FEEDTUBE 30 mg QDAY INDU Administration Lorazepam 1 mg 03/10/20 12:00 03/13/20 18:48 Ativan IV 1 mg Q4H PRN Administration AGITATION Metoprolol Tartrate 25 mg 02/28/20 10:00 03/15/20 21:56 Metoprolol PO 25 mg BID INDU Administration Morphine Sulfate 2 mg 03/11/20 05:13 03/16/20 01:46 Morphine IV 2 mg Q4H PRN Administration Pain, Moderate (4-6) Multi-Ingred Cream/Lotion/Oil/Oint 1 applic 03/11/20 06:01 Artificial Tears Ophth Oint OU Q4HR PRN Dry Eye(s) Nitroglycerin 0.4 mg 03/11/20 05:14 Nitrostat SL .Q5MIN PRN Chest Pain Ondansetron HCl 4 mg 02/24/20 06:45 02/25/20 23:33 Zofran IV 4 mg Q8H PRN Administration Nausea And Vomiting Quetiapine Fumarate 100 mg 03/06/20 10:00 03/15/20 10:52 Seroquel PO 100 mg QAM INDU Administration Quetiapine Fumarate 200 mg 03/06/20 22:00 03/15/20 21:55 Seroquel PO 200 mg QHS INDU Administration Scopolamine 1 each 03/04/20 16:00 03/13/20 09:39 Transderm-Scop TD 1 each Q3D INDU Administration Simple Syrup 15 ml 03/01/20 08:46 Simple Syrup FEEDTUBE PRN PRN Hypoglycemia Simple Syrup 30 ml 03/01/20 08:46 Simple Syrup FEEDTUBE PRN PRN Hypoglycemia Sodium Bicarbonate 325 mg 03/01/20 08:46 Sodium Bicarbonate FEEDTUBE PRN PRN For Clogged Feeding Tube Sodium Chloride 10 ml 02/24/20 10:00 03/15/20 21:57 Sodium Chloride Flush Syringe 10 Ml IV 10 ml BID INDU Administration Sodium Chloride 10 ml 02/24/20 06:45 03/10/20 09:06 Sodium Chloride Flush Syringe 10 Ml IV 10 ml PRN PRN Administration LINE FLUSH Tamsulosin HCl 0.4 mg 03/01/20 17:00 03/15/20 10:52 Flomax PO 0.4 mg QDAY INDU Administration
--- NOTE | 2020-03-16 10:37 | Progress Note ---
Assessment and Plan Assessment and plan: --Ac.hypoxic resp. failure /s/p extubated Extubated 03/15/2020, on BiPAP and Ventimask Patient is refusing BiPAP. On nasal cannula oxygen Patient was intubated initially 02/29/2020, extubated 03/10/2020 Again went into respiratory failure reintubated 03/11/2020, extubated 03/15/2020 --Severe sepsis secondary to pneumonia and pancreatitis; on meropenem, total 14 days per ID ,follow cultures leukocytosis, tachycardia, tachypnea, fever, infiltrate on chest x-ray. Symptoms significantly improved -- Acute severe pancreatitis Initial non-contrasted CT showed no evidence of necrosis or pseudocyst or abscess formation. Repeat CT 03/05 with interval worsening of acute pancreatitis without clear evidence of necrosis with increased jessica-pancreatic fat stranding and disorganized fluid, Symptoms resolved --JUANIS/worsening renal function/on HD Initiated hemodialysis 03/03/2020. Hemodialysis per schedule, nephrology following May need outpatient HD scheduling per case management --Severe metabolic encephalopathy/POA Patient is more alert and awake no agitation aggression -- Hypertensive emergency POA s/p Cardene drip, closely monitor Blood pressures well controlled IV labetalol, PRN --Anemia; hemoglobin 6.6 -7.8 No external evidence of bleeding Total 3 units of PRBC transfusion GI following, monitor H&H transfuse additional PRBC as needed --Chest pain/positive troponins;NSTEMI 2 Probably nonspecific , patient has acute kidney injury on dialysis continue current med management, follow serial cardiac enzymes, follow cardiology evaluation and recommendation EF 60-65% on ECHO -- Bilateral pleural effusions. Etiology secondary to above Compressive atelectasis --Alcohol withdrawal . Chronic alcohol use On CIWA protocol --Severe metabolic acidosis; Management per nephrology --Severe protein calorie malnutrition and hypoalbuminemia Nutrition supplements, nutrition consult and supportive care --Medical noncompliance Patient was counseled upon admission. -- DVT prophylaxis Patient placed on subcutaneous heparin. --Obesity; BMI 37.9 patient needs weight reduction when medically stable. -- Full code status Follow GI and pulmonary evaluation and recommendations We will closely monitor the patient and adjust the management as needed Patient is stable to be transferred out of ICU to telemetry DC planning per case management Possible discharge in 1 to 2 days if stable The high probability of a clinically significant, sudden or life threatening deterioration of the [GI, CVS, renal, respiratory and metabolic] system(s) required my full and direct attention, intervention and personal management. The aggregate critical care time was [32] minutes. This time is in addition to time spent performing reported procedures but includes the following: [x] Data Review and interpretation [x] Patient assessment and monitoring of vital signs [x] Documentation [x] Medication orders and management 03/15; patient is more alert and awake, remains intubated on vent, wean and e xtubate as tolerated DC planning per case management 03/16; patient received hemodialysis today stable to be transferred out of ICU to telemetry, DC planning per case management History Interval history: I have seen and examined the patient at the bedside in ICU this morning Patient's chart, medications, tests reports, consultants recommendations reviewe d Patient refused BiPAP, on nasal cannula oxygen Receiving hemodialysis No new complaints Vital signs noted Hospitalist Physical - Constitutional Vitals: Temp Pulse Resp BP Pulse Ox 98.4 F 92 H 27 H 145/83 100 03/16/20 09:00 03/16/20 10:15 03/16/20 10:15 03/16/20 10:15 03/16/20 10:15 General appearance: Present: no acute distress, well-nourished, obese, other (Intubated) - EENT Eyes: Present: PERRL, EOM intact - Neck Neck: Present: supple, normal ROM - Respiratory Respiratory effort: normal Respiratory: bilateral: diminished, negative: rales, rhonchi, wheezing - Cardiovascular Rhythm: regular Heart Sounds: Present: S1 & S2 - Extremities Extremities: no ischemia Extremity abnormal: edema - Abdominal General gastrointestinal: soft, non-tender, non-distended, normal bowel sounds - Integumentary Integumentary: Present: clear, warm - Psychiatric Psychiatric: appropriate mood/affect, cooperative - Neurologic Neurologic: CNII-XII intact, moves all extremities HEART Score - HEART Score Troponin: Troponin T 0.085 ng/mL (0.00-0.029) H 03/11/20 14:31 Results - Labs CBC & Chem 7: 03/16/20 04:52 03/16/20 04:52 Labs: Laboratory Last Values WBC 13.9 K/mm3 (4.5-11.0) H 03/16/20 04:52 RBC 3.35 M/mm3 (3.65-5.03) L 03/16/20 04:52 Hgb 8.3 gm/dl (10.1-14.3) L 03/16/20 04:52 Hct 25.8 % (30.3-42.9) L 03/16/20 04:52 MCV 77 fl (79-97) L 03/16/20 04:52 MCH 25 pg (28-32) L 03/16/20 04:52 MCHC 32 % (30-34) 03/16/20 04:52 RDW 22.1 % (13.2-15.2) H 03/16/20 04:52 Plt Count 799 K/mm3 (140-440) H 03/16/20 04:52 Lymph % (Auto) 11.1 % (13.4-35.0) L 03/16/20 04:52 [place] % (Auto) 6.3 % (0.0-7.3) 03/16/20 04:52 Eos % (Auto) 4.4 % (0.0-4.3) H 03/16/20 04:52 Baso % (Auto) 0.8 % (0.0-1.8) 03/16/20 04:52 Lymph # (Auto) 1.5 K/mm3 (1.2-5.4) 03/16/20 04:52 [place] # (Auto) 0.9 K/mm3 (0.0-0.8) H 03/16/20 04:52 Eos # (Auto) 0.6 K/mm3 (0.0-0.4) H 03/16/20 04:52 Baso # (Auto) 0.1 K/mm3 (0.0-0.1) 03/16/20 04:52 Add Manual Diff Complete 03/11/20 04:32 Total Counted 100 03/11/20 04:32 Seg Neutrophils % 77.4 % (40.0-70.0) H 03/16/20 04:52 Seg Neuts % (Manual) 81.0 % (40.0-70.0) H 03/11/20 04:32 Band Neutrophils % 1.0 % 03/11/20 04:32 Lymphocytes % (Manual) 8.0 % (13.4-35.0) L 03/11/20 04:32 Reactive Lymphs % (Man) 0 % 03/11/20 04:32 Monocytes % (Manual) 8.0 % (0.0-7.3) H 03/11/20 04:32 Eosinophils % (Manual) 1.0 % (0.0-4.3) 03/11/20 04:32 Basophils % (Manual) 1.0 % (0.0-1.8) 03/11/20 04:32 Metamyelocytes % 0 % 03/11/20 04:32 Myelocytes % 0 % 03/11/20 04:32 Promyelocytes % 0 % 03/11/20 04:32 Blast Cells % 0 % 03/11/20 04:32 Nucleated RBC % Not Reportable 03/11/20 04:32 Seg Neutrophils # 10.8 K/mm3 (1.8-7.7) H 03/16/20 04:52 Seg Neutrophils # Man 18.1 K/mm3 (1.8-7.7) H 03/11/20 04:32 Band Neutrophils # 0.2 K/mm3 03/11/20 04:32 Lymphocytes # (Manual) 1.8 K/mm3 (1.2-5.4) 03/11/20 04:32 Abs React Lymphs (Man) 0.0 K/mm3 03/11/20 04:32 Monocytes # (Manual) 1.8 K/mm3 (0.0-0.8) H 03/11/20 04:32 Eosinophils # (Manual) 0.2 K/mm3 (0.0-0.4) 03/11/20 04:32 Basophils # (Manual) 0.2 K/mm3 (0.0-0.1) H 03/11/20 04:32 Metamyelocytes # 0.0 K/mm3 03/11/20 04:32 Myelocytes # 0.0 K/mm3 03/11/20 04:32 Promyelocytes # 0.0 K/mm3 03/11/20 04:32 Blast Cells # 0.0 K/mm3 03/11/20 04:32 WBC Morphology Not Reportable 03/11/20 04:32 Hypersegmented Neuts Not Reportable 03/11/20 04:32 Hyposegmented Neuts Not Reportable 03/11/20 04:32 Hypogranular Neuts Not Reportable 03/11/20 04:32 Smudge Cells Not Reportable 03/11/20 04:32 Toxic Granulation Not Reportable 03/11/20 04:32 Toxic Vacuolation Not Reportable 03/11/20 04:32 Dohle Bodies Not Reportable 03/11/20 04:32 Pelger-Huet Anomaly Not Reportable 03/11/20 04:32 Maia Rods Not Reportable 03/11/20 04:32 Platelet Estimate Consistent w auto 03/11/20 04:32 Clumped Platelets Not Reportable 03/11/20 04:32 Plt Clumps, EDTA Not Reportable 03/11/20 04:32 Large Platelets Not Reportable 03/11/20 04:32 Giant Platelets Not Reportable 03/11/20 04:32 Platelet Satelliting Not Reportable 03/11/20 04:32 Plt Morphology Comment Not Reportable 03/11/20 04:32 RBC Morphology Not Reportable 03/11/20 04:32 Dimorphic RBCs Not Reportable 03/11/20 04:32 Polychromasia Not Reportable 03/11/20 04:32 Hypochromasia 1+ 03/11/20 04:32 Poikilocytosis Not Reportable 03/11/20 04:32 Anisocytosis 1+ 03/11/20 04:32 Microcytosis Not Reportable 03/11/20 04:32 Macrocytosis Not Reportable 03/11/20 04:32 Spherocytes Not Reportable 03/11/20 04:32 Pappenheimer Bodies Not Reportable 03/11/20 04:32 Sickle Cells Not Reportable 03/11/20 04:32 Target Cells Not Reportable 03/11/20 04:32 Tear Drop Cells Rare 03/11/20 04:32 Ovalocytes Few 03/11/20 04:32 Helmet Cells Not Reportable 03/11/20 04:32 Jackson-Sugden Bodies Not Reportable 03/11/20 04:32 [place] Rings Not Reportable 03/11/20 04:32 Mirna Cells Not Reportable 03/11/20 04:32 Bite Cells Not Reportable 03/11/20 04:32 Crenated Cell Not Reportable 03/11/20 04:32 Elliptocytes Not Reportable 03/11/20 04:32 Acanthocytes (Spur) Not Reportable 03/11/20 04:32 Rouleaux Not Reportable 03/11/20 04:32 Hemoglobin C Crystals Not Reportable 03/11/20 04:32 Schistocytes Not Reportable 03/11/20 04:32 Malaria parasites Not Reportable 03/11/20 04:32 Edgardo Bodies Not Reportable 03/11/20 04:32 Hem Pathologist Commnt No 03/11/20 04:32 PT 14.1 Sec. (12.2-14.9) 03/11/20 07:31 INR 1.07 (0.87-1.13) 03/11/20 07:31 APTT 32.0 Sec. (24.2-36.6) 03/11/20 07:31 ABG pH 7.420 pH Units (7.350-7.450) 03/15/20 13:20 POC ABG pCO2 40.5 mmHg (32.0-48.0) 03/13/20 14:23 ABG pCO2 45.5 mm Hg 03/15/20 13:20 POC ABG pO2 75.1 mmHg (83-108) L 03/13/20 14:23 ABG pO2 85.8 mm Hg (80.0-90.0) 03/15/20 13:20 POC ABG HCO3 28.3 03/13/20 14:23 ABG HCO3 28.9 mmol/L (20.0-26.0) H 03/15/20 13:20 ABG O2 Saturation 97.1 % (95.0-99.0) 03/15/20 13:20 ABG O2 Content 11.6 (0.0-44) 03/15/20 13:20 POC ABG Base Excess 4.2 03/13/20 14:23 ABG Base Excess 3.9 mmol/L (-2.0-3.0) H 03/15/20 13:20 ABG Hemoglobin 8.6 gm/dl (12.0-16.0) L 03/15/20 13:20 ABG Oxyhemoglobin 90.5 (94-98) L 03/06/20 04:41 ABG Carboxyhemoglobin 1.7 % (0.0-5.0) 03/15/20 13:20 ABG Methemoglobin 0.5 % (0.0-1.5) 03/15/20 13:20 ABG Sodium 135.9 mmol/L (136.0-145.0) L 03/13/20 14:23 ABG Potassium 3.8 mmol/L (3.40-4.50) 03/13/20 14:23 ABG Chloride 98.0 mmol/L (98-107) 03/13/20 14:23 ABG Glucose 89 mg/dL (65-95) 03/13/20 14:23 Oxyhemoglobin 94.9 % (95.0-99.0) L 03/15/20 13:20 Carboxyhemoglobin 1 (0.5-1.5) 03/06/20 04:41 FiO2 30 % 03/15/20 13:20 Sodium 137 mmol/L (137-145) 03/16/20 04:52 Potassium 4.2 mmol/L (3.6-5.0) 03/16/20 04:52 Chloride 93.8 mmol/L (98-107) L 03/16/20 04:52 Carbon Dioxide 23 mmol/L (22-30) 03/16/20 04:52 Anion Gap 24 mmol/L 03/16/20 04:52 BUN 72 mg/dL (7-17) H 03/16/20 04:52 Creatinine 5.8 mg/dL (0.6-1.2) H 03/16/20 04:52 Estimated GFR 10 ml/min 03/16/20 04:52 BUN/Creatinine Ratio 12 % 03/16/20 04:52 Glucose 79 mg/dL (65-100) 03/16/20 04:52 POC Glucose 94 (70-105) 03/16/20 05:14 Lactic Acid 0.90 mmol/L (0.7-2.0) 02/27/20 19:33 Calcium 9.8 mg/dL (8.4-10.2) 03/16/20 04:52 Phosphorus 6.10 mg/dL (2.5-4.5) H 03/01/20 04:37 Magnesium 2.00 mg/dL (1.7-2.3) 03/07/20 05:03 Total Bilirubin 0.30 mg/dL (0.1-1.2) 03/16/20 04:52 Direct Bilirubin 0.6 mg/dL (0-0.2) H 03/05/20 06:00 Indirect Bilirubin 0.3 mg/dL 03/05/20 06:00 AST 30 units/L (5-40) 03/16/20 04:52 ALT 14 units/L (7-56) 03/16/20 04:52 Alkaline Phosphatase 75 units/L (35-129) 03/16/20 04:52 Troponin T 0.085 ng/mL (0.00-0.029) H 03/11/20 14:31 C-Reactive Protein 36.50 mg/dL (0.00-1.30) H 03/01/20 11:06 Serum Total Protein 6.3 g/dL (6.1-8.1) 02/26/20 04:39 Total Protein 7.6 g/dL (6.3-8.2) 03/16/20 04:52 Albumin 2.7 g/dL (3.9-5) L 03/16/20 04:52 Albumin/Globulin Ratio 0.6 % 03/16/20 04:52 Dects-6-Tmyibzuru 0.7 g/dL (0.2-0.3) H 02/26/20 04:39 Kyccm-3-Vaavnqbhb 0.8 g/dL (0.5-0.9) 02/26/20 04:39 Beta Globulins 0.4 g/dL (0.2-0.5) 02/26/20 04:39 Gamma Globulins 1.2 g/dL (0.8-1.7) 02/26/20 04:39 Abnorm Protein Band 1 see below 02/26/20 04:39 PEP Interpretation see below H 02/26/20 04:39 Triglycerides 247 mg/dL (2-149) H 03/11/20 14:31 Cholesterol 158 mg/dL (50-199) 03/11/20 14:31 LDL Cholesterol Direct 80 mg/dL (50-130) 03/11/20 14:31 HDL Cholesterol 28 mg/dL (40-59) L 03/11/20 14:31 Cholesterol/HDL Ratio 5.64 % 03/11/20 14:31 Lipase 72 units/L (13-60) H 03/04/20 19:00 HCG, Qual Negative (Negative) 02/24/20 02:53 PTH Intact 911.3 pg/mL (15-65) H 02/26/20 08:15 Arterial Blood Glucose 89 mg/dL (65-95) 03/13/20 14:23 Arterial Blood Ionized Calcium 4.5 mg/dL (4.6-5.3) L 03/13/20 14:23 Urine Color Yellow (Yellow) 02/24/20 Unknown Urine Turbidity Clear (Clear) 02/24/20 Unknown Urine pH 6.0 (5.0-7.0) 02/24/20 Unknown Ur Specific [place] 1.020 (1.003-1.030) 02/24/20 Unknown Urine Protein >500 mg/dL (Negative) 02/24/20 Unknown Urine Glucose (UA) 50 mg/dL (Negative) 02/24/20 Unknown Urine Ketones Neg mg/dL (Negative) 02/24/20 Unknown Urine Blood Lg (Negative) 02/24/20 Unknown Urine Nitrite Neg (Negative) 02/24/20 Unknown Urine Bilirubin Neg (Negative) 02/24/20 Unknown Urine Urobilinogen < 2.0 mg/dL (<2.0) 02/24/20 Unknown Ur Leukocyte Esterase Neg (Negative) 02/24/20 Unknown Urine WBC (Auto) 11.0 /HPF (0.0-6.0) H 02/24/20 Unknown Urine RBC (Auto) 149.0 /HPF (0.0-6.0) 02/24/20 Unknown U Epithel Cells (Auto) 5.0 /HPF (0-13.0) 02/24/20 Unknown Urine Bacteria (Auto) 1+ /HPF (Negative) 02/24/20 Unknown Urine Mucus Few /HPF 02/24/20 Unknown Urine Creatinine 161.0 mg/dL (0.1-20.0) H 02/25/20 22:55 Protein/Creatinin Ratio 0.93 02/25/20 22:55 Urine Total Protein 150 mg/dL (5-11.8) H 02/25/20 22:55 ZINA Screen Positive (Negative) H 02/26/20 04:39 Proteinase 3 (PR3) Ab <1.0 AI (<1.0) 02/26/20 04:39 Myeloperoxidase Ab <1.0 AI (<1.0) 02/26/20 04:39 Double Strand DNA Ab See scanned result 03/06/20 14:46 Complement C3 153 mg/dL (83-193) 02/26/20 04:39 Complement C4 35 mg/dL (15-57) 02/26/20 04:39 Coronavirus (PCR) Negative (Negative) 03/09/20 09:12 Hepatitis A IgM Ab Non-reactive (NonReactive) 03/03/20 12:34 Hep Bs Antigen Non-reactive (Negative) 03/03/20 12:34 Hep B Core IgM Ab Non-reactive (NonReactive) 03/03/20 12:34 Hepatitis C Antibody Non-reactive (NonReactive) 03/03/20 12:34 Blood Type AB POSITIVE 03/13/20 08:45 Antibody Screen Negative 03/13/20 08:45 Crossmatch See Detail 03/13/20 08:45 - Diagnostic Impressions Diagnostic Impressions: Echocardiogram 02/26/20 09:11 Transthoracic Echocardiogram Indication: Cardiomegaly BP: 149/92 HR: 122 Conclusions *Global left ventricular systolic function is normal. *The estimated ejection fraction is 60-65%. *Moderate to severe concentric left ventricular hypertrophy is observed. *The left atrium is mild to moderately dilated. *The aortic valve leaflets are moderately thickened. *A mean gradient of 22.39 mmHg across the outflow tract is likely not due to but hyperdynamic flow and LVH. *There is trace tricuspid regurgitation. Findings Left Ventricle: The left ventricular chamber size is normal. Moderate to severe concentric left ventricular hypertrophy is observed. Global left ventricular systolic function is normal. The estimated ejection fraction is 60-65%. Left Atrium: The left atrium is mild to moderately dilated. Right Ventricle: The right ventricular cavity size is normal. The right ventricular global systolic function is normal. Right Atrium: The right atrial cavity size is normal. Aortic Valve: The aortic valve leaflets are moderately thickened. There is no evidence of aortic regurgitation. The mean gradient of the aortic valve is 22.39 mmHg. Mitral Valve: The mitral valve leaflets are mildly thickened. There is trace of mitral regurgitation. There is no evidence of mitral stenosis. Tricuspid Valve: There is trace tricuspid regurgitation. No pulmonary hypertension is noted. Pulmonic Valve: There is trace pulmonic regurgitation. Pericardium: There is no pericardial effusion. Aorta: There is no dilatation of the ascending aorta. There is no dilatation of the aortic root. Venous: The inferior vena cava appears normal in size. Measurements Chambers 2D Name Value Normal Range IVSd (2D) 1.8 cm (0.6 - 1.1) LVPWd (2D) 1.74 cm (0.6 - 1.1) LVIDd (2D) 4.57 cm (3.7 - 5.6) LVIDs (2D) 2.73 cm (2 - 3.8) LV FS (2D) 40.27 % - EF Teichholz (2D) 71.04 % - Ao root diameter (2D) 2.79 cm (2 - 3.7) Volumes/Mass Name Value Normal Range LA ESV SP 4CH (A/L) 54.18 ml - LA ESV SP 2CH (A/L) 61.84 ml - LA ESV BP (A/L) 58.1 ml - LA ESV BP (A/L) index 30.74 ml/m2 - LA ESV SP 4CH (MOD) 52.89 ml - LA ESV SP 2CH (MOD) 60.65 ml - LA ESV BP (MOD) 56.77 ml - LA ESV BP (MOD) index 30.04 ml/m2 - LV EDV SP 4CH (MOD) 164.2 ml - LV ESV SP 4CH (MOD) 58.04 ml - EF SP 4CH (MOD) 64.65 % - Diastolic/Systolic Function Name Value Normal Range MV E-wave Vmax 1.38 m/sec - MV deceleration time 92.78 msec - MV A-wave Vmax 1.44 m/sec - MV E:A ratio 0.95 ratio - Aortic Valve Name Value Normal Range AV Vmax 3.08 m/sec - AV VTI 36.74 cm - AV peak gradient 37.98 mmHg - AV mean gradient 22.39 mmHg - LVOT diameter 2.01 cm - LVOT Vmax 2.45 m/sec - LVOT VTI 29.85 cm - LVOT peak gradient 24.04 mmHg - LVOT mean gradient 11.11 mmHg - SV LVOT 94.73 ml - JADA (continuity Vmax) 2.52 cm2 - JADA (continuity VTI) 2.58 cm2 - Ascending Ao 2.64 cm - Mitral Valve Name Value Normal Range MV PHT 37.88 msec - MVA (PHT) 5.81 cm2 - Tricuspid Valve Name Value Normal Range IVC diameter 1.93 cm (1.2 - 2.3) Pulmonic Valve/Qp:Qs Name Value Normal Range PV Vmax 2.83 m/sec - PV VTI 45.88 cm - PV peak gradient 32.06 mmHg - PV mean gradient 16.11 mmHg - NV end-diastolic Vmax 0.81 m/sec - RVOT Vmax 1.82 m/sec - RVOT VTI 25.12 cm - RVOT peak gradient 13.3 mmHg - Franks/IV: Voiding Method Incontinent IV Catheter Type [Right VAS Cath Internal Jugular] IV Catheter Type [Left Upper INT / Saline Lock arm] IV Catheter Type [Right Upper INT / Saline Lock arm] IV Catheter Type [Right INT / Saline Lock Forearm] IV Catheter Type [Right Wrist] Peripheral IV IV Catheter Type [Right Peripheral IV Antecubital] Active Medications - Current Medications Current Medications: Generic Name Dose Route Start Last Admin Trade Name Freq PRN Reason Stop Dose Admin Acetaminophen 650 mg 02/26/20 16:23 03/14/20 22:03 Tylenol PO 650 mg Q4H PRN Administration Pain, Mild (1-3)/ Temp >100. Albuterol 2.5 mg 02/27/20 17:55 Proventil IH Q4HRT PRN Shortness Of Breath Albuterol/Ipratropium 1 ampul 02/28/20 12:17 03/16/20 08:18 Duoneb *Not For Prn Use* IH 1 ampul Q6HRT INDU Administration Amlodipine Besylate 10 mg 02/28/20 10:00 03/15/20 10:52 Amlodipine PO 10 mg QDAY INDU Administration Aspirin 325 mg 03/15/20 11:00 03/15/20 11:29 Aspirin PO 325 mg QDAY INDU Administration Dextrose 50 ml 02/29/20 08:00 03/01/20 00:20 D50w (25gm) Syringe IV 10 ml Q30MIN PRN Administration HYPOGLYCEMIA Protocol Epoetin Prosper 10,000 unit 03/12/20 10:00 Procrit IV NIKOLAY PRN hemodialysis Heparin Sodium (Porcine) 5,000 unit 03/11/20 14:00 03/16/20 05:32 Heparin SUB-Q 5,000 unit Q8HR INDU Administration Hydralazine HCl 25 mg 03/04/20 14:00 03/16/20 05:33 Apresoline PO 25 mg Q8HR INDU Administration Hydrophilic Ointment 1 applic 03/11/20 06:01 Vaseline Lip Therapy TP Q2HR PRN Dry Lips MEROPENEM/NS 1 GRAM/100 ML 1 gram in 100 mls @ 100 mls/hr 03/03/20 18:00 03/15/20 19:10 Merrem/Ns 1 Gram/100 Ml IV 03/16/20 18:59 Infused QPM INDU Infusion Protocol Sodium Chloride 100 mls @ 999 mls/hr 03/08/20 17:05 Nacl 0.9% IV NIKOLAY PRN Hypotension Labetalol HCl 10 mg 02/28/20 09:00 03/11/20 03:04 Labetalol IV 10 mg Q4H PRN Administration Hypertension Lorazepam 1 mg 03/10/20 12:00 03/13/20 18:48 Ativan IV 1 mg Q4H PRN Administration AGITATION Metoprolol Tartrate 25 mg 02/28/20 10:00 03/15/20 21:56 Metoprolol PO 25 mg BID INDU Administration Morphine Sulfate 2 mg 03/11/20 05:13 03/16/20 01:46 Morphine IV 2 mg Q4H PRN Administration Pain, Moderate (4-6) Multi-Ingred Cream/Lotion/Oil/Oint 1 applic 03/11/20 06:01 Artificial Tears Ophth Oint OU Q4HR PRN Dry Eye(s) Nitroglycerin 0.4 mg 03/11/20 05:14 Nitrostat SL .Q5MIN PRN Chest Pain Ondansetron HCl 4 mg 02/24/20 06:45 02/25/20 23:33 Zofran IV 4 mg Q8H PRN Administration Nausea And Vomiting Pantoprazole Sodium 40 mg 03/16/20 11:00 Protonix PO QDAC INDU Quetiapine Fumarate 100 mg 03/16/20 22:00 Seroquel PO QHS INDU Sodium Chloride 10 ml 02/24/20 10:00 03/15/20 21:57 Sodium Chloride Flush Syringe 10 Ml IV 10 ml BID INDU Administration Sodium Chloride 10 ml 02/24/20 06:45 03/10/20 09:06 Sodium Chloride Flush Syringe 10 Ml IV 10 ml PRN PRN Administration LINE FLUSH Nutrition/Malnutrition Assess - Dietary Evaluation Nutrition/Malnutrition Findings: Nutrition Notes Start: 02/24/20 13:42 Freq: Status: Active Protocol: Document 03/13/20 11:20 AVINASH (Rec: 03/13/20 11:24 BK [id number]) Co-Sign 03/13/20 11:20 MK Nutrition Notes Initial or Follow up Reassessment Current Diagnosis Acute Kidney Injury,Sepsis, Hypertension,Respiratory Failure,Hyperlipidemia Other Pertinent Diagnosis Acute pancreatitis, HD Current Diet Nepro 1.8 at 35ml/hr Labs/Tests No recent labs Pertinent Medications Reviewed Height 5 ft 1 in Weight 91 kg [place] Body Weight (kg) 47.72 BMI 37.9 Weight Status Obese Subjective/Other Information F/U for TF restart/tolerance. TF running at goal rate and pt tolerating. Percent of energy/protein needs met: 100%/70% Burn Absent Trauma Absent GI Symptoms None Current % PO Negligible Minimum of two criteria No Fluid Accumulation Moderate to Severe (severe) #2 Nutrition Diagnosis Inadequate oral intake Diagnosis Progress(for reassessment Continues documentation) #1 Nutrition Diagnosis Food and nutrition-related knowledge deficit Diagnosis Progress(for reassessment Continues documentation) Is patient on ventilator? Yes Is Patient Ambulatory and/or Out of Bed No REE-([place]-confined to bed) 1823.604 Kcal/Kg value to use for calculation 16 Approximate Energy Requirements Using 1456 kcal/Kg Calculation Used for Recommendations Kcal/kg Additional Notes Pro: 96g (>2g/kg IBW) Fluid: 1ml/kcal Nutrition Intervention Change Diet Order: Continue TF Nutrition Support: Nepro 1.8 at 35ml/hr Flush 150ml q4h Kcal 1,512 Protein (gm) 68 Fluid (mL) 611 Goal #1 TF tolerance Goal #2 Meet at least 80% of energy and protein needs via TF Anticipated Discharge Needs: Undetermined at this time Follow-Up By: 03/17/20 Additional Comments F/U for TF tolerance
[2020-03-16] MEDS: EPOETIN ALFA 10,000 UNIT/1 ML INJ IV PRN (11:58)
[2020-03-16] MEDS: TAMSULOSIN 0.4 MG CAP PO SCH (12:36)
[2020-03-16] MEDS: LANSOPRAZOLE 30 MG SOLUTAB FEEDTUBE SCH (12:37)
[2020-03-16] MEDS: SCOPOLAMINE TRANSDERMAL PATCH 72 HR TD SCH (12:37)
[2020-03-16] MEDS: GLYCOPYRROLATE 2 MG TAB PO SCH (12:37)
[2020-03-16] MEDS: QUEtiapine 100 MG TAB PO SCH ×2 (12:37→21:44)
--- NOTE | 2020-03-16 12:51 | Progress Note ---
Assessment and Plan Acute Hypoxemic Respiratory Failure s/p MVS, extubated 03/15/2020 Severe Sepsis Acute Toxic-Metabolic Encephalopathy Hypertensive urgency Morbid obesity Acute pancreatitis, abdominal pain Medical non compliance Oropharyngeal Dysphagia -Wean supplemental oxygen for O2 sats>90% -Modified diet with aspiration precautions - HD/UF for toxin and volume clearance per Renal service, - accuchecks with glycemic control per SSI (While critically ill target blood glucose of 140-180 mg/dL; avoid hypoglycemia) - continue prn bronchodilators with pulmonary hygiene per RT -Stop am Seroquel, decrease qhs Seroquel by half the current dose - complete Meropenem; de-escalate per ID rec's - JUANIS per rail engineer, GENERAL OPHTHALMOLOGIST - VTE prophylaxis-Heparin - avoid nephrotoxins, renally dose all medications - Maintenance of sleep-wake cycle, avoid delirium - Stress ulcer prophylaxis-PPI - mobility protocol, - Monitor hemodynamics closely Stable from pulmonary and critical care standpoint to transfer out of the ICU PT/OT to evaluate and treat CONDITION: FAIR PROGNOSIS: FAIR CODE STATUS: FULL CODE Subjective Date of service: 03/16/20 Principal diagnosis: HTNsive urgency; Morbid obesity; Ac. pancreatitis; Abdominal pain Interval history: Patient is seen today for: Acute hypoxemic respiratory failure s/p MVS; Hypertensive urgency; Morbid obesity; Acute pancreatitis; abdominal pain; Medical non compliance; Acute Toxic Metabolic Encephalopathy Seen and examined at bedside; 24hour events reviewed; nursing and respiratory care staff consulted; no adverse overnight events reported to me; resting peacefully in bed, on HD, supplemental oxygen at 3L. Extubated yesterday. Rolly rated BIPAP for 4 hours last night. Objective Vital Signs - 12hr 03/16/20 03/16/20 03/16/20 01:00 01:15 01:30 Temperature Pulse Rate 89 96 H 93 H Pulse Rate [ From Monitor] Pulse Rate [ Left Upper Lobe ] Respiratory 20 15 26 H Rate Respiratory Rate [Left Upper Lobe] Blood Pressure 136/84 167/112 134/80 O2 Sat by Pulse 98 95 89 Oximetry O2 Sat by Pulse Oximetry [Left Upper Lobe] 03/16/20 03/16/20 03/16/20 01:45 02:00 02:15 Temperature Pulse Rate 94 H 92 H 90 Pulse Rate [ From Monitor] Pulse Rate [ 101 H Left Upper Lobe ] Respiratory 16 24 18 Rate Respiratory 20 Rate [Left Upper Lobe] Blood Pressure 148/96 142/89 133/80 O2 Sat by Pulse 94 99 99 Oximetry O2 Sat by Pulse Oximetry [Left Upper Lobe] 03/16/20 03/16/20 03/16/20 02:30 02:45 03:00 Temperature Pulse Rate 92 H 94 H 93 H Pulse Rate [ From Monitor] Pulse Rate [ Left Upper Lobe ] Respiratory 23 21 23 Rate Respiratory Rate [Left Upper Lobe] Blood Pressure 123/81 147/102 153/97 O2 Sat by Pulse 99 100 97 Oximetry O2 Sat by Pulse Oximetry [Left Upper Lobe] 03/16/20 03/16/20 03/16/20 03:15 03:22 03:30 Temperature 98.4 F Pulse Rate 97 H 89 Pulse Rate [ From Monitor] Pulse Rate [ Left Upper Lobe ] Respiratory 22 25 H Rate Respiratory Rate [Left Upper Lobe] Blood Pressure 153/97 152/97 O2 Sat by Pulse 98 Oximetry O2 Sat by Pulse Oximetry [Left Upper Lobe] 03/16/20 03/16/20 03/16/20 03:45 04:00 04:15 Temperature Pulse Rate 93 H 91 H 92 H Pulse Rate [ 91 H From Monitor] Pulse Rate [ Left Upper Lobe ] Respiratory 25 H 24 22 Rate Respiratory Rate [Left Upper Lobe] Blood Pressure 155/93 128/82 141/80 O2 Sat by Pulse 100 99 99 Oximetry O2 Sat by Pulse Oximetry [Left Upper Lobe] 03/16/20 03/16/20 03/16/20 04:30 04:45 05:00 Temperature Pulse Rate 93 H 99 H 97 H Pulse Rate [ From Monitor] Pulse Rate [ Left Upper Lobe ] Respiratory 24 28 H 20 Rate Respiratory Rate [Left Upper Lobe] Blood Pressure 141/82 158/104 152/99 O2 Sat by Pulse 96 94 93 Oximetry O2 Sat by Pulse Oximetry [Left Upper Lobe] 03/16/20 03/16/20 03/16/20 05:15 05:30 05:33 Temperature Pulse Rate 99 H 97 H 101 H Pulse Rate [ From Monitor] Pulse Rate [ Left Upper Lobe ] Respiratory 32 H 25 H Rate Respiratory Rate [Left Upper Lobe] Blood Pressure 153/93 138/77 138/77 O2 Sat by Pulse 98 94 Oximetry O2 Sat by Pulse Oximetry [Left Upper Lobe] 03/16/20 03/16/20 03/16/20 05:45 06:00 06:15 Temperature Pulse Rate 98 H 99 H 111 H Pulse Rate [ From Monitor] Pulse Rate [ Left Upper Lobe ] Respiratory 29 H 29 H 19 Rate Respiratory Rate [Left Upper Lobe] Blood Pressure 143/78 181/107 181/107 O2 Sat by Pulse 97 96 Oximetry O2 Sat by Pulse Oximetry [Left Upper Lobe] 03/16/20 03/16/20 03/16/20 06:31 06:45 07:00 Temperature Pulse Rate 100 H 103 H 101 H Pulse Rate [ From Monitor] Pulse Rate [ Left Upper Lobe ] Respiratory 20 20 23 Rate Respiratory Rate [Left Upper Lobe] Blood Pressure 159/82 186/104 166/81 O2 Sat by Pulse 96 94 93 Oximetry O2 Sat by Pulse Oximetry [Left Upper Lobe] 03/16/20 03/16/20 03/16/20 07:15 07:31 07:45 Temperature Pulse Rate 101 H 104 H 101 H Pulse Rate [ From Monitor] Pulse Rate [ Left Upper Lobe ] Respiratory 24 32 H 29 H Rate Respiratory Rate [Left Upper Lobe] Blood Pressure 148/85 148/85 148/85 O2 Sat by Pulse 95 95 97 Oximetry O2 Sat by Pulse Oximetry [Left Upper Lobe] 03/16/20 03/16/20 03/16/20 08:00 08:01 08:15 Temperature 98.5 F Pulse Rate 101 H 102 H 104 H Pulse Rate [ From Monitor] Pulse Rate [ Left Upper Lobe ] Respiratory 30 H 14 Rate Respiratory Rate [Left Upper Lobe] Blood Pressure 148/85 148/85 O2 Sat by Pulse 97 94 97 Oximetry O2 Sat by Pulse Oximetry [Left Upper Lobe] 03/16/20 03/16/20 03/16/20 08:18 08:31 08:45 Temperature Pulse Rate 114 H Pulse Rate [ From Monitor] Pulse Rate [ 107 H Left Upper Lobe ] Respiratory 24 25 H Rate Respiratory 16 Rate [Left Upper Lobe] Blood Pressure 148/85 148/85 O2 Sat by Pulse 97 94 Oximetry O2 Sat by Pulse Oximetry [Left Upper Lobe] 03/16/20 03/16/20 03/16/20 09:00 09:13 09:15 Temperature 98.4 F Pulse Rate 101 H 98 H 98 H Pulse Rate [ From Monitor] Pulse Rate [ Left Upper Lobe ] Respiratory 34 H 21 Rate Respiratory Rate [Left Upper Lobe] Blood Pressure 140/67 148/77 149/80 O2 Sat by Pulse 99 100 Oximetry O2 Sat by Pulse 100 Oximetry [Left Upper Lobe] 03/16/20 03/16/20 03/16/20 09:30 09:45 10:00 Temperature Pulse Rate 97 H 97 H 97 H Pulse Rate [ From Monitor] Pulse Rate [ Left Upper Lobe ] Respiratory 11 L 31 H 23 Rate Respiratory Rate [Left Upper Lobe] Blood Pressure 155/73 163/87 158/97 O2 Sat by Pulse 100 99 100 Oximetry O2 Sat by Pulse Oximetry [Left Upper Lobe] 03/16/20 03/16/20 03/16/20 10:15 10:30 10:45 Temperature Pulse Rate 91 H 93 H 92 H Pulse Rate [ From Monitor] Pulse Rate [ Left Upper Lobe ] Respiratory 27 H 25 H 17 Rate Respiratory Rate [Left Upper Lobe] Blood Pressure 145/83 152/83 146/85 O2 Sat by Pulse 100 100 100 Oximetry O2 Sat by Pulse Oximetry [Left Upper Lobe] 03/16/20 03/16/20 03/16/20 11:00 11:15 11:30 Temperature Pulse Rate 93 H 91 H 90 Pulse Rate [ From Monitor] Pulse Rate [ Left Upper Lobe ] Respiratory 27 H 24 16 Rate Respiratory Rate [Left Upper Lobe] Blood Pressure 136/84 145/80 142/86 O2 Sat by Pulse 100 100 100 Oximetry O2 Sat by Pulse Oximetry [Left Upper Lobe] 03/16/20 03/16/20 03/16/20 11:45 12:00 12:01 Temperature 98.5 F Pulse Rate 91 H 91 H 91 H Pulse Rate [ From Monitor] Pulse Rate [ Left Upper Lobe ] Respiratory 30 H 30 H Rate Respiratory Rate [Left Upper Lobe] Blood Pressure 152/86 167/102 167/102 O2 Sat by Pulse 100 99 Oximetry O2 Sat by Pulse Oximetry [Left Upper Lobe] 03/16/20 03/16/20 12:15 12:30 Temperature Pulse Rate 91 H 92 H Pulse Rate [ From Monitor] Pulse Rate [ Left Upper Lobe ] Respiratory 23 Rate Respiratory Rate [Left Upper Lobe] Blood Pressure 155/103 149/102 O2 Sat by Pulse 100 Oximetry O2 Sat by Pulse Oximetry [Left Upper Lobe] Constitutional: no acute distress, alert Eyes: non-icteric ENT: oropharynx moist Neck: supple, no lymphadenopathy, no JVD, other (RIJ HD catheter) Effort: mildly labored Ascultation: Bilateral: diminished breath sounds (at the bases), rhonchi Percussion: Bilateral: not dull Cardiovascular: regular rate and rhythm, other (S1,S2) Gastrointestinal: normoactive bowel sounds, hypoactive bowel sounds, soft, non- tender, non-distended Integumentary: normal Extremities: no cyanosis, no edema, pink and warm, pulses normal Neurologic: normal mental status, non-focal exam, pupils equal and round, CN II- XII normal, motor strength normal and Psychiatric: mood appropriate, affect normal CBC and BMP: 03/16/20 04:52 03/16/20 04:52 ABG, PT/INR, D-dimer: ABG ABG pH 7.420 pH Units (7.350-7.450) 03/15/20 13:20 POC ABG pCO2 40.5 mmHg (32.0-48.0) 03/13/20 14:23 ABG pCO2 45.5 mm Hg 03/15/20 13:20 POC ABG pO2 75.1 mmHg (83-108) L 03/13/20 14:23 ABG pO2 85.8 mm Hg (80.0-90.0) 03/15/20 13:20 POC ABG HCO3 28.3 03/13/20 14:23 ABG O2 Saturation 97.1 % (95.0-99.0) 03/15/20 13:20 PT/INR, D-dimer PT 14.1 Sec. (12.2-14.9) 03/11/20 07:31 INR 1.07 (0.87-1.13) 03/11/20 07:31 Abnormal lab findings: Abnormal Labs 02/24/20 02/24/20 02/24/20 02:53 02:53 Unknown WBC 12.7 H Hgb 10.0 L RBC Hct MCV 70 L MCH 22 L RDW 17.9 H Plt Count 458 H Lymph % (Auto) 8.9 L Lymph # 1.1 L [place] % (Auto) [place] # Eos % (Auto) Lymph # (Auto) [place] # (Auto) Eos # (Auto) Seg Neutrophils % 84.2 H Seg Neutrophils # 10.7 H Seg Neuts % (Manual) Lymphocytes % (Manual) Monocytes % (Manual) Nucleated RBC % Seg Neutrophils # Man Lymphocytes # (Manual) Monocytes # (Manual) Eosinophils # (Manual) Basophils # (Manual) ABG pH POC ABG pCO2 POC ABG pO2 ABG pO2 ABG HCO3 ABG O2 Saturation ABG Base Excess ABG Hemoglobin ABG Oxyhemoglobin ABG Sodium ABG Glucose Oxyhemoglobin Sodium Potassium Chloride Carbon Dioxide BUN 27 H Creatinine 1.7 H Glucose 118 H POC Glucose Calcium Phosphorus Magnesium Direct Bilirubin AST Alkaline Phosphatase Albumin Troponin T C-Reactive Protein Sdfzi-2-Zfizhcuee PEP Interpretation Triglycerides Lipase 232 H HDL Cholesterol PTH Intact Arterial Blood Glucose Arterial Blood Ionized Calcium Urine WBC (Auto) 11.0 H Urine Creatinine Urine Total Protein ZINA Screen Crossmatch 02/25/20 02/25/20 02/25/20 00:03 03:49 03:49 WBC 29.1 H Hgb 9.4 L RBC Hct 30.2 L MCV 71 L MCH 22 L RDW 18.3 H Plt Count 525 H Lymph % (Auto) 3.4 L Lymph # 1.0 L [place] % (Auto) [place] # 1.0 H Eos % (Auto) Lymph # (Auto) [place] # (Auto) Eos # (Auto) Seg Neutrophils % Seg Neutrophils # 26.4 H Seg Neuts % (Manual) Lymphocytes % (Manual) Monocytes % (Manual) Nucleated RBC % Seg Neutrophils # Man Lymphocytes # (Manual) Monocytes # (Manual) Eosinophils # (Manual) Basophils # (Manual) ABG pH POC ABG pCO2 POC ABG pO2 ABG pO2 ABG HCO3 ABG O2 Saturation ABG Base Excess ABG Hemoglobin ABG Oxyhemoglobin ABG Sodium ABG Glucose Oxyhemoglobin Sodium Potassium Chloride Carbon Dioxide BUN Creatinine Glucose POC Glucose 126 H Calcium Phosphorus Magnesium Direct Bilirubin AST Alkaline Phosphatase Albumin Troponin T C-Reactive Protein Ghbot-3-Tiizkecnm PEP Interpretation Triglycerides Lipase 1486 H HDL Cholesterol PTH Intact Arterial Blood Glucose Arterial Blood Ionized Calcium Urine WBC (Auto) Urine Creatinine Urine Total Protein ZINA Screen Crossmatch 02/25/20 02/25/20 02/25/20 03:49 05:55 22:55 WBC Hgb RBC Hct MCV MCH RDW Plt Count Lymph % (Auto) Lymph # [place] % (Auto) [place] # Eos % (Auto) Lymph # (Auto) [place] # (Auto) Eos # (Auto) Seg Neutrophils % Seg Neutrophils # Seg Neuts % (Manual) Lymphocytes % (Manual) Monocytes % (Manual) Nucleated RBC % Seg Neutrophils # Man Lymphocytes # (Manual) Monocytes # (Manual) Eosinophils # (Manual) Basophils # (Manual) ABG pH POC ABG pCO2 POC ABG pO2 ABG pO2 ABG HCO3 ABG O2 Saturation ABG Base Excess ABG Hemoglobin ABG Oxyhemoglobin ABG Sodium ABG Glucose Oxyhemoglobin Sodium 136 L Potassium Chloride 97.9 L Carbon Dioxide 21 L BUN 39 H Creatinine 3.0 H D Glucose 118 H POC Glucose 124 H Calcium Phosphorus Magnesium Direct Bilirubin AST Alkaline Phosphatase Albumin 3.6 L Troponin T C-Reactive Protein Qpsos-2-Gkvwcgwhc PEP Interpretation Triglycerides Lipase HDL Cholesterol PTH Intact Arterial Blood Glucose Arterial Blood Ionized Calcium Urine WBC (Auto) Urine Creatinine 161.0 H Urine Total Protein 150 H ZINA Screen Crossmatch 02/26/20 02/26/20 02/26/20 04:39 04:39 04:39 WBC 30.3 H Hgb 9.1 L RBC Hct 29.8 L MCV 71 L MCH 22 L RDW 18.2 H Plt Count 530 H Lymph % (Auto) Lymph # [place] % (Auto) [place] # Eos % (Auto) Lymph # (Auto) [place] # (Auto) Eos # (Auto) Seg Neutrophils % Seg Neutrophils # Seg Neuts % (Manual) Lymphocytes % (Manual) Monocytes % (Manual) Nucleated RBC % Seg Neutrophils # Man Lymphocytes # (Manual) Monocytes # (Manual) Eosinophils # (Manual) Basophils # (Manual) ABG pH POC ABG pCO2 POC ABG pO2 ABG pO2 ABG HCO3 ABG O2 Saturation ABG Base Excess ABG Hemoglobin ABG Oxyhemoglobin ABG Sodium ABG Glucose Oxyhemoglobin Sodium Potassium Chloride Carbon Dioxide 19 L BUN 44 H Creatinine 3.1 H Glucose 106 H POC Glucose Calcium 8.1 L Phosphorus Magnesium Direct Bilirubin AST Alkaline Phosphatase Albumin Troponin T C-Reactive Protein Kzdly-0-Lugffwcmc PEP Interpretation Triglycerides Lipase 540 H HDL Cholesterol PTH Intact Arterial Blood Glucose Arterial Blood Ionized Calcium Urine WBC (Auto) Urine Creatinine Urine Total Protein ZINA Screen Positive H Crossmatch 02/26/20 02/26/20 02/26/20 04:39 08:15 12:14 WBC Hgb RBC Hct MCV MCH RDW Plt Count Lymph % (Auto) Lymph # [place] % (Auto) [place] # Eos % (Auto) Lymph # (Auto) [place] # (Auto) Eos # (Auto) Seg Neutrophils % Seg Neutrophils # Seg Neuts % (Manual) Lymphocytes % (Manual) Monocytes % (Manual) Nucleated RBC % Seg Neutrophils # Man Lymphocytes # (Manual) Monocytes # (Manual) Eosinophils # (Manual) Basophils # (Manual) ABG pH POC ABG pCO2 POC ABG pO2 ABG pO2 ABG HCO3 ABG O2 Saturation ABG Base Excess ABG Hemoglobin ABG Oxyhemoglobin ABG Sodium ABG Glucose Oxyhemoglobin Sodium Potassium Chloride Carbon Dioxide BUN Creatinine Glucose POC Glucose 112 H Calcium Phosphorus Magnesium Direct Bilirubin AST Alkaline Phosphatase Albumin 2.8 L Troponin T C-Reactive Protein Cdzph-7-Kxsthekso 0.7 H PEP Interpretation see below H Triglycerides Lipase HDL Cholesterol PTH Intact 911.3 H Arterial Blood Glucose Arterial Blood Ionized Calcium Urine WBC (Auto) Urine Creatinine Urine Total Protein ZINA Screen Crossmatch 02/27/20 02/27/20 02/27/20 04:18 04:18 04:18 WBC 26.8 H Hgb 7.9 L RBC Hct 26.3 L MCV 70 L MCH 21 L RDW 18.0 H Plt Count 513 H Lymph % (Auto) Lymph # [place] % (Auto) [place] # Eos % (Auto) Lymph # (Auto) [place] # (Auto) Eos # (Auto) Seg Neutrophils % Seg Neutrophils # Seg Neuts % (Manual) Lymphocytes % (Manual) Monocytes % (Manual) Nucleated RBC % Seg Neutrophils # Man Lymphocytes # (Manual) Monocytes # (Manual) Eosinophils # (Manual) Basophils # (Manual) ABG pH POC ABG pCO2 POC ABG pO2 ABG pO2 ABG HCO3 ABG O2 Saturation ABG Base Excess ABG Hemoglobin ABG Oxyhemoglobin ABG Sodium ABG Glucose Oxyhemoglobin Sodium 135 L 135 L Potassium Chloride Carbon Dioxide 15 L 16 L BUN 50 H 51 H Creatinine 3.4 H 3.4 H Glucose POC Glucose Calcium 7.4 L 7.5 L Phosphorus Magnesium Direct Bilirubin AST Alkaline Phosphatase Albumin 3.0 L Troponin T C-Reactive Protein 37.30 H Ccofx-6-Sgwpomszx PEP Interpretation Triglycerides Lipase 177 H HDL Cholesterol PTH Intact Arterial Blood Glucose Arterial Blood Ionized Calcium Urine WBC (Auto) Urine Creatinine Urine Total Protein ZINA Screen Crossmatch 02/27/20 02/28/20 02/28/20 16:57 05:07 05:07 WBC Hgb RBC Hct MCV MCH RDW Plt Count Lymph % (Auto) Lymph # [place] % (Auto) [place] # Eos % (Auto) Lymph # (Auto) [place] # (Auto) Eos # (Auto) Seg Neutrophils % Seg Neutrophils # Seg Neuts % (Manual) Lymphocytes % (Manual) Monocytes % (Manual) Nucleated RBC % Seg Neutrophils # Man Lymphocytes # (Manual) Monocytes # (Manual) Eosinophils # (Manual) Basophils # (Manual) ABG pH 7.336 L POC ABG pCO2 POC ABG pO2 ABG pO2 57.0 L ABG HCO3 16.4 L ABG O2 Saturation 88.2 L ABG Base Excess -8.4 L ABG Hemoglobin 10.4 L ABG Oxyhemoglobin ABG Sodium ABG Glucose Oxyhemoglobin 85.7 L Sodium Potassium Chloride Carbon Dioxide 14 L BUN 60 H Creatinine 4.2 H Glucose POC Glucose Calcium 8.2 L Phosphorus Magnesium Direct Bilirubin AST Alkaline Phosphatase Albumin Troponin T C-Reactive Protein Jsxnm-3-Anqmvhmrn PEP Interpretation Triglycerides Lipase 155 H HDL Cholesterol PTH Intact Arterial Blood Glucose Arterial Blood Ionized Calcium Urine WBC (Auto) Urine Creatinine Urine Total Protein ZINA Screen Crossmatch 02/28/20 02/28/20 02/28/20 05:56 11:05 11:05 WBC Hgb RBC Hct MCV MCH RDW Plt Count Lymph % (Auto) Lymph # [place] % (Auto) [place] # Eos % (Auto) Lymph # (Auto) [place] # (Auto) Eos # (Auto) Seg Neutrophils % Seg Neutrophils # Seg Neuts % (Manual) Lymphocytes % (Manual) Monocytes % (Manual) Nucleated RBC % Seg Neutrophils # Man Lymphocytes # (Manual) Monocytes # (Manual) Eosinophils # (Manual) Basophils # (Manual) ABG pH 7.317 L POC ABG pCO2 POC ABG pO2 76.2 L ABG pO2 ABG HCO3 16.4 L ABG O2 Saturation ABG Base Excess -8.9 L ABG Hemoglobin 6.6 L 7.6 L ABG Oxyhemoglobin ABG Sodium ABG Glucose Oxyhemoglobin 94.6 L Sodium Potassium Chloride Carbon Dioxide BUN Creatinine Glucose POC Glucose 115 H Calcium Phosphorus Magnesium Direct Bilirubin AST Alkaline Phosphatase Albumin Troponin T C-Reactive Protein Gqbnx-3-Klyubklbk PEP Interpretation Triglycerides Lipase HDL Cholesterol PTH Intact Arterial Blood Glucose Arterial Blood Ionized Calcium Urine WBC (Auto) Urine Creatinine Urine Total Protein ZINA Screen Crossmatch 02/28/20 02/28/20 02/29/20 17:39 19:39 05:43 WBC Hgb RBC Hct MCV MCH RDW Plt Count Lymph % (Auto) Lymph # [place] % (Auto) [place] # Eos % (Auto) Lymph # (Auto) [place] # (Auto) Eos # (Auto) Seg Neutrophils % Seg Neutrophils # Seg Neuts % (Manual) Lymphocytes % (Manual) Monocytes % (Manual) Nucleated RBC % Seg Neutrophils # Man Lymphocytes # (Manual) Monocytes # (Manual) Eosinophils # (Manual) Basophils # (Manual) ABG pH 7.300 L POC ABG pCO2 POC ABG pO2 ABG pO2 117.5 H ABG HCO3 15.0 L ABG O2 Saturation ABG Base Excess -10.5 L ABG Hemoglobin 6.4 L ABG Oxyhemoglobin ABG Sodium ABG Glucose Oxyhemoglobin Sodium Potassium Chloride Carbon Dioxide BUN Creatinine Glucose POC Glucose 120 H 66 L Calcium Phosphorus Magnesium Direct Bilirubin AST Alkaline Phosphatase Albumin Troponin T C-Reactive Protein Odptm-7-Nlqmltkje PEP Interpretation Triglycerides Lipase HDL Cholesterol PTH Intact Arterial Blood Glucose Arterial Blood Ionized Calcium Urine WBC (Auto) Urine Creatinine Urine Total Protein ZINA Screen Crossmatch 02/29/20 02/29/20 02/29/20 05:45 12:04 12:31 WBC Hgb RBC Hct MCV MCH RDW Plt Count Lymph % (Auto) Lymph # [place] % (Auto) [place] # Eos % (Auto) Lymph # (Auto) [place] # (Auto) Eos # (Auto) Seg Neutrophils % Seg Neutrophils # Seg Neuts % (Manual) Lymphocytes % (Manual) Monocytes % (Manual) Nucleated RBC % Seg Neutrophils # Man Lymphocytes # (Manual) Monocytes # (Manual) Eosinophils # (Manual) Basophils # (Manual) ABG pH 7.212 L POC ABG pCO2 POC ABG pO2 ABG pO2 ABG HCO3 ABG O2 Saturation ABG Base Excess ABG Hemoglobin 7.4 L ABG Oxyhemoglobin ABG Sodium ABG Glucose Oxyhemoglobin Sodium Potassium Chloride Carbon Dioxide BUN Creatinine Glucose POC Glucose 65 L 64 L Calcium Phosphorus Magnesium Direct Bilirubin AST Alkaline Phosphatase Albumin Troponin T C-Reactive Protein Dbrdd-6-Rrdiwxral PEP Interpretation Triglycerides Lipase HDL Cholesterol PTH Intact Arterial Blood Glucose Arterial Blood Ionized Calcium Urine WBC (Auto) Urine Creatinine Urine Total Protein ZINA Screen Crossmatch 02/29/20 02/29/20 02/29/20 14:22 14:22 18:20 WBC Hgb RBC Hct MCV MCH RDW Plt Count Lymph % (Auto) Lymph # [place] % (Auto) [place] # Eos % (Auto) Lymph # (Auto) [place] # (Auto) Eos # (Auto) Seg Neutrophils % Seg Neutrophils # Seg Neuts % (Manual) Lymphocytes % (Manual) Monocytes % (Manual) Nucleated RBC % Seg Neutrophils # Man Lymphocytes # (Manual) Monocytes # (Manual) Eosinophils # (Manual) Basophils # (Manual) ABG pH POC ABG pCO2 POC ABG pO2 ABG pO2 ABG HCO3 ABG O2 Saturation ABG Base Excess ABG Hemoglobin ABG Oxyhemoglobin ABG Sodium ABG Glucose Oxyhemoglobin Sodium Potassium Chloride Carbon Dioxide 16 L BUN 77 H Creatinine 4.7 H Glucose POC Glucose 66 L Calcium Phosphorus 7.50 H Magnesium 2.60 H Direct Bilirubin AST Alkaline Phosphatase Albumin 2.3 L Troponin T C-Reactive Protein Vhhfm-3-Fzweaaocu PEP Interpretation Triglycerides Lipase HDL Cholesterol PTH Intact Arterial Blood Glucose Arterial Blood Ionized Calcium Urine WBC (Auto) Urine Creatinine Urine Total Protein ZINA Screen Crossmatch 02/29/20 03/01/20 03/01/20 18:24 04:05 04:37 WBC Hgb RBC Hct MCV MCH RDW Plt Count Lymph % (Auto) Lymph # [place] % (Auto) [place] # Eos % (Auto) Lymph # (Auto) [place] # (Auto) Eos # (Auto) Seg Neutrophils % Seg Neutrophils # Seg Neuts % (Manual) Lymphocytes % (Manual) Monocytes % (Manual) Nucleated RBC % Seg Neutrophils # Man Lymphocytes # (Manual) Monocytes # (Manual) Eosinophils # (Manual) Basophils # (Manual) ABG pH 7.271 L 7.347 L POC ABG pCO2 POC ABG pO2 ABG pO2 133.5 H ABG HCO3 15.8 L ABG O2 Saturation ABG Base Excess -8.9 L ABG Hemoglobin 7.2 L 7.6 L ABG Oxyhemoglobin 93.4 L ABG Sodium ABG Glucose Oxyhemoglobin Sodium Potassium Chloride 107.6 H Carbon Dioxide 14 L BUN 83 H Creatinine 5.6 H Glucose POC Glucose Calcium Phosphorus 6.10 H Magnesium 2.40 H Direct Bilirubin AST Alkaline Phosphatase Albumin Troponin T C-Reactive Protein Ecfsi-9-Bnyybsgnb PEP Interpretation Triglycerides Lipase HDL Cholesterol PTH Intact Arterial Blood Glucose Arterial Blood Ionized Calcium Urine WBC (Auto) Urine Creatinine Urine Total Protein ZINA Screen Crossmatch 03/01/20 03/01/20 03/01/20 11:06 16:22 18:12 WBC 30.5 H Hgb 6.2 L RBC 2.92 L Hct 20.8 L MCV 71 L MCH 21 L RDW 18.2 H Plt Count 560 H Lymph % (Auto) Lymph # [place] % (Auto) [place] # Eos % (Auto) Lymph # (Auto) [place] # (Auto) Eos # (Auto) Seg Neutrophils % Seg Neutrophils # Seg Neuts % (Manual) 79.0 H Lymphocytes % (Manual) 3.0 L Monocytes % (Manual) Nucleated RBC % Seg Neutrophils # Man 24.1 H Lymphocytes # (Manual) 0.9 L Monocytes # (Manual) 2.1 H Eosinophils # (Manual) Basophils # (Manual) ABG pH POC ABG pCO2 POC ABG pO2 ABG pO2 ABG HCO3 ABG O2 Saturation ABG Base Excess ABG Hemoglobin ABG Oxyhemoglobin ABG Sodium ABG Glucose Oxyhemoglobin Sodium Potassium 5.3 H D Chloride Carbon Dioxide 11 L BUN 77 H Creatinine 5.0 H Glucose 54 L POC Glucose 121 H Calcium Phosphorus Magnesium Direct Bilirubin AST Alkaline Phosphatase Albumin 3.0 L Troponin T C-Reactive Protein 36.50 H Wyarz-2-Nsbgccnay PEP Interpretation Triglycerides Lipase HDL Cholesterol PTH Intact Arterial Blood Glucose Arterial Blood Ionized Calcium Urine WBC (Auto) Urine Creatinine Urine Total Protein ZINA Screen Crossmatch 03/01/20 03/01/20 03/01/20 18:30 23:37 Unknown WBC Hgb RBC Hct MCV MCH RDW Plt Count Lymph % (Auto) Lymph # [place] % (Auto) [place] # Eos % (Auto) Lymph # (Auto) [place] # (Auto) Eos # (Auto) Seg Neutrophils % Seg Neutrophils # Seg Neuts % (Manual) Lymphocytes % (Manual) Monocytes % (Manual) Nucleated RBC % Seg Neutrophils # Man Lymphocytes # (Manual) Monocytes # (Manual) Eosinophils # (Manual) Basophils # (Manual) ABG pH POC ABG pCO2 POC ABG pO2 ABG pO2 ABG HCO3 ABG O2 Saturation ABG Base Excess ABG Hemoglobin ABG Oxyhemoglobin ABG Sodium ABG Glucose Oxyhemoglobin Sodium Potassium Chloride Carbon Dioxide BUN Creatinine Glucose POC Glucose 125 H Calcium Phosphorus Magnesium Direct Bilirubin AST Alkaline Phosphatase Albumin Troponin T C-Reactive Protein Psgld-8-Lvxeqojmf PEP Interpretation Triglycerides Lipase 297 H HDL Cholesterol PTH Intact Arterial Blood Glucose Arterial Blood Ionized Calcium Urine WBC (Auto) Urine Creatinine Urine Total Protein ZINA Screen Crossmatch See Detail 03/02/20 03/02/20 03/02/20 04:00 05:36 05:36 WBC 26.0 H Hgb 7.8 L RBC 3.26 L Hct 24.2 L MCV 74 L MCH 24 L RDW 21.3 H Plt Count 508 H Lymph % (Auto) Lymph # [place] % (Auto) [place] # Eos % (Auto) Lymph # (Auto) [place] # (Auto) Eos # (Auto) Seg Neutrophils % Seg Neutrophils # Seg Neuts % (Manual) 86.0 H Lymphocytes % (Manual) 4.0 L Monocytes % (Manual) Nucleated RBC % 2.0 H Seg Neutrophils # Man 22.4 H Lymphocytes # (Manual) 1.0 L Monocytes # (Manual) Eosinophils # (Manual) Basophils # (Manual) ABG pH POC ABG pCO2 27.8 L POC ABG pO2 ABG pO2 ABG HCO3 ABG O2 Saturation ABG Base Excess ABG Hemoglobin 8 L ABG Oxyhemoglobin ABG Sodium ABG Glucose Oxyhemoglobin Sodium Potassium Chloride Carbon Dioxide 17 L BUN 85 H Creatinine 5.6 H Glucose 109 H POC Glucose Calcium Phosphorus Magnesium 2.50 H Direct Bilirubin AST Alkaline Phosphatase Albumin 2.3 L Troponin T C-Reactive Protein Uicwj-5-Fiobinlmg PEP Interpretation Triglycerides Lipase HDL Cholesterol PTH Intact Arterial Blood Glucose Arterial Blood Ionized Calcium Urine WBC (Auto) Urine Creatinine Urine Total Protein ZINA Screen Crossmatch 03/03/20 03/03/20 03/03/20 04:00 04:36 04:36 WBC Hgb RBC Hct MCV MCH RDW Plt Count Lymph % (Auto) Lymph # [place] % (Auto) [place] # Eos % (Auto) Lymph # (Auto) [place] # (Auto) Eos # (Auto) Seg Neutrophils % Seg Neutrophils # Seg Neuts % (Manual) Lymphocytes % (Manual) Monocytes % (Manual) Nucleated RBC % Seg Neutrophils # Man Lymphocytes # (Manual) Monocytes # (Manual) Eosinophils # (Manual) Basophils # (Manual) ABG pH POC ABG pCO2 31.8 L POC ABG pO2 ABG pO2 ABG HCO3 ABG O2 Saturation ABG Base Excess ABG Hemoglobin 8.6 L ABG Oxyhemoglobin ABG Sodium ABG Glucose Oxyhemoglobin Sodium 147 H Potassium Chloride 108.4 H Carbon Dioxide 16 L BUN 87 H Creatinine 6.2 H Glucose POC Glucose Calcium Phosphorus Magnesium 2.50 H Direct Bilirubin 1.0 H AST Alkaline Phosphatase Albumin 2.4 L Troponin T C-Reactive Protein Nfdig-3-Pwcvduees PEP Interpretation Triglycerides Lipase 119 H HDL Cholesterol PTH Intact Arterial Blood Glucose Arterial Blood Ionized Calcium Urine WBC (Auto) Urine Creatinine Urine Total Protein ZINA Screen Crossmatch 03/03/20 03/03/20 03/03/20 04:36 12:48 17:48 WBC 28.0 H Hgb 8.1 L RBC 3.41 L Hct 25.3 L MCV 74 L MCH 24 L RDW 20.8 H Plt Count 557 H Lymph % (Auto) Lymph # [place] % (Auto) [place] # Eos % (Auto) Lymph # (Auto) [place] # (Auto) Eos # (Auto) Seg Neutrophils % Seg Neutrophils # Seg Neuts % (Manual) 82.0 H Lymphocytes % (Manual) 4.0 L Monocytes % (Manual) Nucleated RBC % Seg Neutrophils # Man 23.0 H Lymphocytes # (Manual) 1.1 L Monocytes # (Manual) 2.0 H Eosinophils # (Manual) Basophils # (Manual) ABG pH POC ABG pCO2 POC ABG pO2 ABG pO2 ABG HCO3 ABG O2 Saturation ABG Base Excess ABG Hemoglobin ABG Oxyhemoglobin ABG Sodium ABG Glucose Oxyhemoglobin Sodium Potassium Chloride Carbon Dioxide BUN Creatinine Glucose POC Glucose 131 H 113 H Calcium Phosphorus Magnesium Direct Bilirubin AST Alkaline Phosphatase Albumin Troponin T C-Reactive Protein Xjglf-5-Xufoakkye PEP Interpretation Triglycerides Lipase HDL Cholesterol PTH Intact Arterial Blood Glucose Arterial Blood Ionized Calcium Urine WBC (Auto) Urine Creatinine Urine Total Protein ZINA Screen Crossmatch 03/03/20 03/04/20 03/04/20 23:43 03:43 04:05 WBC Hgb RBC Hct MCV MCH RDW Plt Count Lymph % (Auto) Lymph # [place] % (Auto) [place] # Eos % (Auto) Lymph # (Auto) [place] # (Auto) Eos # (Auto) Seg Neutrophils % Seg Neutrophils # Seg Neuts % (Manual) Lymphocytes % (Manual) Monocytes % (Manual) Nucleated RBC % Seg Neutrophils # Man Lymphocytes # (Manual) Monocytes # (Manual) Eosinophils # (Manual) Basophils # (Manual) ABG pH POC ABG pCO2 POC ABG pO2 ABG pO2 57.4 L ABG HCO3 27.2 H ABG O2 Saturation 88.6 L ABG Base Excess ABG Hemoglobin ABG Oxyhemoglobin ABG Sodium ABG Glucose Oxyhemoglobin Sodium Potassium 3.3 L Chloride Carbon Dioxide BUN 65 H Creatinine 5.3 H Glucose 152 H POC Glucose 149 H Calcium Phosphorus Magnesium Direct Bilirubin 0.7 H AST Alkaline Phosphatase Albumin 2.5 L Troponin T C-Reactive Protein Bemje-5-Xxbfquwoe PEP Interpretation Triglycerides Lipase HDL Cholesterol PTH Intact Arterial Blood Glucose Arterial Blood Ionized Calcium Urine WBC (Auto) Urine Creatinine Urine Total Protein ZINA Screen Crossmatch 03/04/20 03/04/20 03/04/20 04:05 05:26 12:21 WBC 30.1 H Hgb 8.2 L RBC 3.44 L Hct 25.2 L MCV 73 L MCH 24 L RDW 20.7 H Plt Count 554 H Lymph % (Auto) 3.3 L Lymph # [place] % (Auto) [place] # Eos % (Auto) Lymph # (Auto) 1.0 L [place] # (Auto) 2.0 H Eos # (Auto) Seg Neutrophils % 88.6 H Seg Neutrophils # 26.6 H Seg Neuts % (Manual) Lymphocytes % (Manual) Monocytes % (Manual) Nucleated RBC % Seg Neutrophils # Man Lymphocytes # (Manual) Monocytes # (Manual) Eosinophils # (Manual) Basophils # (Manual) ABG pH POC ABG pCO2 POC ABG pO2 ABG pO2 ABG HCO3 ABG O2 Saturation ABG Base Excess ABG Hemoglobin ABG Oxyhemoglobin ABG Sodium ABG Glucose Oxyhemoglobin Sodium Potassium Chloride Carbon Dioxide BUN Creatinine Glucose POC Glucose 136 H 155 H Calcium Phosphorus Magnesium Direct Bilirubin AST Alkaline Phosphatase Albumin Troponin T C-Reactive Protein Loobc-3-Lelxlqrwu PEP Interpretation Triglycerides Lipase HDL Cholesterol PTH Intact Arterial Blood Glucose Arterial Blood Ionized Calcium Urine WBC (Auto) Urine Creatinine Urine Total Protein ZINA Screen Crossmatch 03/04/20 03/04/20 03/04/20 18:02 19:00 23:24 WBC Hgb RBC Hct MCV MCH RDW Plt Count Lymph % (Auto) Lymph # [place] % (Auto) [place] # Eos % (Auto) Lymph # (Auto) [place] # (Auto) Eos # (Auto) Seg Neutrophils % Seg Neutrophils # Seg Neuts % (Manual) Lymphocytes % (Manual) Monocytes % (Manual) Nucleated RBC % Seg Neutrophils # Man Lymphocytes # (Manual) Monocytes # (Manual) Eosinophils # (Manual) Basophils # (Manual) ABG pH POC ABG pCO2 POC ABG pO2 ABG pO2 ABG HCO3 ABG O2 Saturation ABG Base Excess ABG Hemoglobin ABG Oxyhemoglobin ABG Sodium ABG Glucose Oxyhemoglobin Sodium Potassium Chloride Carbon Dioxide BUN Creatinine Glucose POC Glucose 124 H 115 H Calcium Phosphorus Magnesium Direct Bilirubin AST Alkaline Phosphatase Albumin Troponin T C-Reactive Protein Crznc-3-Yhogpcpmy PEP Interpretation Triglycerides Lipase 72 H HDL Cholesterol PTH Intact Arterial Blood Glucose Arterial Blood Ionized Calcium Urine WBC (Auto) Urine Creatinine Urine Total Protein ZINA Screen Crossmatch 03/05/20 03/05/20 03/05/20 05:04 05:29 06:00 WBC Hgb RBC Hct MCV MCH RDW Plt Count Lymph % (Auto) Lymph # [place] % (Auto) [place] # Eos % (Auto) Lymph # (Auto) [place] # (Auto) Eos # (Auto) Seg Neutrophils % Seg Neutrophils # Seg Neuts % (Manual) Lymphocytes % (Manual) Monocytes % (Manual) Nucleated RBC % Seg Neutrophils # Man Lymphocytes # (Manual) Monocytes # (Manual) Eosinophils # (Manual) Basophils # (Manual) ABG pH POC ABG pCO2 POC ABG pO2 ABG pO2 62.5 L ABG HCO3 26.4 H ABG O2 Saturation 92.1 L ABG Base Excess ABG Hemoglobin 9.3 L ABG Oxyhemoglobin ABG Sodium ABG Glucose Oxyhemoglobin 89.9 L Sodium Potassium Chloride Carbon Dioxide BUN 54 H Creatinine 5.4 H Glucose 125 H POC Glucose 134 H Calcium Phosphorus Magnesium Direct Bilirubin 0.6 H AST Alkaline Phosphatase 133 H Albumin 2.5 L Troponin T C-Reactive Protein Nkkrb-7-Zcizbukjg PEP Interpretation Triglycerides Lipase HDL Cholesterol PTH Intact Arterial Blood Glucose Arterial Blood Ionized Calcium Urine WBC (Auto) Urine Creatinine Urine Total Protein ZINA Screen Crossmatch 03/05/20 03/05/20 03/05/20 12:18 18:01 21:39 WBC Hgb RBC Hct MCV MCH RDW Plt Count Lymph % (Auto) Lymph # [place] % (Auto) [place] # Eos % (Auto) Lymph # (Auto) [place] # (Auto) Eos # (Auto) Seg Neutrophils % Seg Neutrophils # Seg Neuts % (Manual) Lymphocytes % (Manual) Monocytes % (Manual) Nucleated RBC % Seg Neutrophils # Man Lymphocytes # (Manual) Monocytes # (Manual) Eosinophils # (Manual) Basophils # (Manual) ABG pH POC ABG pCO2 POC ABG pO2 ABG pO2 ABG HCO3 ABG O2 Saturation ABG Base Excess ABG Hemoglobin ABG Oxyhemoglobin ABG Sodium ABG Glucose Oxyhemoglobin Sodium Potassium Chloride Carbon Dioxide BUN Creatinine Glucose POC Glucose 118 H 108 H 123 H Calcium Phosphorus Magnesium Direct Bilirubin AST Alkaline Phosphatase Albumin Troponin T C-Reactive Protein Prehk-2-Oujrrjgje PEP Interpretation Triglycerides Lipase HDL Cholesterol PTH Intact Arterial Blood Glucose Arterial Blood Ionized Calcium Urine WBC (Auto) Urine Creatinine Urine Total Protein ZINA Screen Crossmatch 03/06/20 03/06/20 03/06/20 04:40 04:41 05:44 WBC Hgb RBC Hct MCV MCH RDW Plt Count Lymph % (Auto) Lymph # [place] % (Auto) [place] # Eos % (Auto) Lymph # (Auto) [place] # (Auto) Eos # (Auto) Seg Neutrophils % Seg Neutrophils # Seg Neuts % (Manual) Lymphocytes % (Manual) Monocytes % (Manual) Nucleated RBC % Seg Neutrophils # Man Lymphocytes # (Manual) Monocytes # (Manual) Eosinophils # (Manual) Basophils # (Manual) ABG pH POC ABG pCO2 POC ABG pO2 64.9 L ABG pO2 ABG HCO3 ABG O2 Saturation ABG Base Excess ABG Hemoglobin 9.9 L ABG Oxyhemoglobin 90.5 L ABG Sodium ABG Glucose Oxyhemoglobin Sodium Potassium Chloride 94.7 L Carbon Dioxide BUN 70 H Creatinine 7.1 H Glucose 113 H POC Glucose 134 H Calcium Phosphorus Magnesium Direct Bilirubin AST Alkaline Phosphatase Albumin Troponin T C-Reactive Protein Yaokj-6-Svzppcewm PEP Interpretation Triglycerides Lipase HDL Cholesterol PTH Intact Arterial Blood Glucose Arterial Blood Ionized Calcium Urine WBC (Auto) Urine Creatinine Urine Total Protein ZINA Screen Crossmatch 03/06/20 03/06/20 03/06/20 08:54 11:56 18:19 WBC 31.5 H Hgb 8.7 L RBC Hct 27.8 L MCV 75 L MCH 23 L RDW 21.2 H Plt Count 516 H Lymph % (Auto) Lymph # [place] % (Auto) [place] # Eos % (Auto) Lymph # (Auto) [place] # (Auto) Eos # (Auto) Seg Neutrophils % Seg Neutrophils # Seg Neuts % (Manual) 93.0 H Lymphocytes % (Manual) 2.0 L Monocytes % (Manual) Nucleated RBC % Seg Neutrophils # Man 29.3 H Lymphocytes # (Manual) 0.6 L Monocytes # (Manual) Eosinophils # (Manual) 0.6 H Basophils # (Manual) ABG pH POC ABG pCO2 POC ABG pO2 ABG pO2 ABG HCO3 ABG O2 Saturation ABG Base Excess ABG Hemoglobin ABG Oxyhemoglobin ABG Sodium ABG Glucose Oxyhemoglobin Sodium Potassium Chloride Carbon Dioxide BUN Creatinine Glucose POC Glucose 131 H 117 H Calcium Phosphorus Magnesium Direct Bilirubin AST Alkaline Phosphatase Albumin Troponin T C-Reactive Protein Sdncn-8-Nraiwqfay PEP Interpretation Triglycerides Lipase HDL Cholesterol PTH Intact Arterial Blood Glucose Arterial Blood Ionized Calcium Urine WBC (Auto) Urine Creatinine Urine Total Protein ZINA Screen Crossmatch 03/07/20 03/07/20 03/07/20 04:42 05:03 05:03 WBC 26.9 H Hgb 8.3 L RBC 3.50 L Hct 26.6 L MCV 76 L MCH 24 L RDW 21.3 H Plt Count 470 H Lymph % (Auto) Lymph # [place] % (Auto) [place] # Eos % (Auto) Lymph # (Auto) [place] # (Auto) Eos # (Auto) Seg Neutrophils % Seg Neutrophils # Seg Neuts % (Manual) 89.0 H Lymphocytes % (Manual) 4.0 L Monocytes % (Manual) Nucleated RBC % Seg Neutrophils # Man 23.9 H Lymphocytes # (Manual) 1.1 L Monocytes # (Manual) Eosinophils # (Manual) Basophils # (Manual) 0.3 H ABG pH POC ABG pCO2 POC ABG pO2 68.3 L ABG pO2 ABG HCO3 ABG O2 Saturation ABG Base Excess ABG Hemoglobin 9.3 L ABG Oxyhemoglobin ABG Sodium ABG Glucose 112 H Oxyhemoglobin Sodium Potassium Chloride 94.8 L Carbon Dioxide BUN 52 H Creatinine 6.3 H Glucose 106 H POC Glucose Calcium Phosphorus Magnesium Direct Bilirubin AST Alkaline Phosphatase 132 H Albumin 2.5 L Troponin T C-Reactive Protein Tnyix-4-Bvjtiktnr PEP Interpretation Triglycerides Lipase HDL Cholesterol PTH Intact Arterial Blood Glucose 112 H Arterial Blood Ionized Calcium Urine WBC (Auto) Urine Creatinine Urine Total Protein ZINA Screen Crossmatch 03/07/20 03/07/20 03/07/20 12:08 18:05 23:29 WBC Hgb RBC Hct MCV MCH RDW Plt Count Lymph % (Auto) Lymph # [place] % (Auto) [place] # Eos % (Auto) Lymph # (Auto) [place] # (Auto) Eos # (Auto) Seg Neutrophils % Seg Neutrophils # Seg Neuts % (Manual) Lymphocytes % (Manual) Monocytes % (Manual) Nucleated RBC % Seg Neutrophils # Man Lymphocytes # (Manual) Monocytes # (Manual) Eosinophils # (Manual) Basophils # (Manual) ABG pH POC ABG pCO2 POC ABG pO2 ABG pO2 ABG HCO3 ABG O2 Saturation ABG Base Excess ABG Hemoglobin ABG Oxyhemoglobin ABG Sodium ABG Glucose Oxyhemoglobin Sodium Potassium Chloride Carbon Dioxide BUN Creatinine Glucose POC Glucose 114 H 111 H 118 H Calcium Phosphorus Magnesium Direct Bilirubin AST Alkaline Phosphatase Albumin Troponin T C-Reactive Protein Aqurt-3-Zngxstgin PEP Interpretation Triglycerides Lipase HDL Cholesterol PTH Intact Arterial Blood Glucose Arterial Blood Ionized Calcium Urine WBC (Auto) Urine Creatinine Urine Total Protein ZINA Screen Crossmatch 03/08/20 03/08/20 03/08/20 04:50 17:45 23:53 WBC Hgb RBC Hct MCV MCH RDW Plt Count Lymph % (Auto) Lymph # [place] % (Auto) [place] # Eos % (Auto) Lymph # (Auto) [place] # (Auto) Eos # (Auto) Seg Neutrophils % Seg Neutrophils # Seg Neuts % (Manual) Lymphocytes % (Manual) Monocytes % (Manual) Nucleated RBC % Seg Neutrophils # Man Lymphocytes # (Manual) Monocytes # (Manual) Eosinophils # (Manual) Basophils # (Manual) ABG pH POC ABG pCO2 POC ABG pO2 ABG pO2 ABG HCO3 ABG O2 Saturation ABG Base Excess ABG Hemoglobin ABG Oxyhemoglobin ABG Sodium ABG Glucose Oxyhemoglobin Sodium Potassium Chloride 95.5 L Carbon Dioxide BUN 52 H Creatinine 6.2 H Glucose 109 H POC Glucose 106 H 106 H Calcium Phosphorus Magnesium Direct Bilirubin AST Alkaline Phosphatase Albumin Troponin T C-Reactive Protein Dqxpv-1-Sjttskteu PEP Interpretation Triglycerides Lipase HDL Cholesterol PTH Intact Arterial Blood Glucose Arterial Blood Ionized Calcium Urine WBC (Auto) Urine Creatinine Urine Total Protein ZINA Screen Crossmatch 03/09/20 03/09/20 03/09/20 04:00 07:53 18:22 WBC 21.9 H Hgb 7.5 L RBC 3.27 L Hct 24.3 L MCV 74 L MCH 23 L RDW 20.9 H Plt Count 488 H Lymph % (Auto) Lymph # [place] % (Auto) [place] # Eos % (Auto) Lymph # (Auto) [place] # (Auto) Eos # (Auto) Seg Neutrophils % Seg Neutrophils # Seg Neuts % (Manual) Lymphocytes % (Manual) Monocytes % (Manual) Nucleated RBC % Seg Neutrophils # Man Lymphocytes # (Manual) Monocytes # (Manual) Eosinophils # (Manual) Basophils # (Manual) ABG pH POC ABG pCO2 POC ABG pO2 ABG pO2 ABG HCO3 ABG O2 Saturation ABG Base Excess ABG Hemoglobin ABG Oxyhemoglobin ABG Sodium ABG Glucose Oxyhemoglobin Sodium Potassium Chloride 92.8 L Carbon Dioxide BUN 74 H Creatinine 7.8 H Glucose POC Glucose 114 H Calcium Phosphorus Magnesium Direct Bilirubin AST Alkaline Phosphatase Albumin Troponin T C-Reactive Protein Cfxzn-7-Ycnwtfiny PEP Interpretation Triglycerides Lipase HDL Cholesterol PTH Intact Arterial Blood Glucose Arterial Blood Ionized Calcium Urine WBC (Auto) Urine Creatinine Urine Total Protein ZINA Screen Crossmatch 03/10/20 03/10/20 03/10/20 04:37 04:37 09:53 WBC 16.0 H Hgb 7.1 L RBC 2.99 L Hct 22.4 L MCV 75 L MCH 24 L RDW 21.5 H Plt Count Lymph % (Auto) 9.2 L Lymph # [place] % (Auto) 9.9 H [place] # Eos % (Auto) Lymph # (Auto) [place] # (Auto) 1.6 H Eos # (Auto) Seg Neutrophils % 79.2 H Seg Neutrophils # 12.6 H Seg Neuts % (Manual) Lymphocytes % (Manual) Monocytes % (Manual) Nucleated RBC % Seg Neutrophils # Man Lymphocytes # (Manual) Monocytes # (Manual) Eosinophils # (Manual) Basophils # (Manual) ABG pH POC ABG pCO2 POC ABG pO2 ABG pO2 ABG HCO3 ABG O2 Saturation ABG Base Excess ABG Hemoglobin 7.7 L ABG Oxyhemoglobin ABG Sodium 134.7 L ABG Glucose 103 H Oxyhemoglobin Sodium Potassium Chloride Carbon Dioxide BUN 45 H Creatinine 5.6 H Glucose 108 H POC Glucose Calcium Phosphorus Magnesium Direct Bilirubin AST Alkaline Phosphatase Albumin Troponin T C-Reactive Protein Wfkyw-7-Rptgviedf PEP Interpretation Triglycerides Lipase HDL Cholesterol PTH Intact Arterial Blood Glucose 103 H Arterial Blood Ionized Calcium Urine WBC (Auto) Urine Creatinine Urine Total Protein ZINA Screen Crossmatch 03/10/20 03/11/20 03/11/20 23:46 02:52 03:25 WBC Hgb RBC Hct MCV MCH RDW Plt Count Lymph % (Auto) Lymph # [place] % (Auto) [place] # Eos % (Auto) Lymph # (Auto) [place] # (Auto) Eos # (Auto) Seg Neutrophils % Seg Neutrophils # Seg Neuts % (Manual) Lymphocytes % (Manual) Monocytes % (Manual) Nucleated RBC % Seg Neutrophils # Man Lymphocytes # (Manual) Monocytes # (Manual) Eosinophils # (Manual) Basophils # (Manual) ABG pH POC ABG pCO2 POC ABG pO2 77.5 L ABG pO2 ABG HCO3 ABG O2 Saturation ABG Base Excess ABG Hemoglobin 8.0 L ABG Oxyhemoglobin ABG Sodium 135.8 L ABG Glucose Oxyhemoglobin Sodium Potassium Chloride Carbon Dioxide BUN Creatinine Glucose POC Glucose 116 H Calcium Phosphorus Magnesium Direct Bilirubin AST Alkaline Phosphatase Albumin Troponin T 0.093 H C-Reactive Protein Dkntt-2-Lampmmpzr PEP Interpretation Triglycerides Lipase HDL Cholesterol PTH Intact Arterial Blood Glucose Arterial Blood Ionized Calcium Urine WBC (Auto) Urine Creatinine Urine Total Protein ZINA Screen Crossmatch 03/11/20 03/11/20 03/11/20 04:32 04:32 06:16 WBC 22.4 H Hgb 7.8 L RBC 3.32 L Hct 25.0 L MCV 75 L MCH 24 L RDW 21.4 H Plt Count 553 H Lymph % (Auto) Lymph # [place] % (Auto) [place] # Eos % (Auto) Lymph # (Auto) [place] # (Auto) Eos # (Auto) Seg Neutrophils % Seg Neutrophils # Seg Neuts % (Manual) 81.0 H Lymphocytes % (Manual) 8.0 L Monocytes % (Manual) 8.0 H Nucleated RBC % Seg Neutrophils # Man 18.1 H Lymphocytes # (Manual) Monocytes # (Manual) 1.8 H Eosinophils # (Manual) Basophils # (Manual) 0.2 H ABG pH POC ABG pCO2 POC ABG pO2 ABG pO2 ABG HCO3 ABG O2 Saturation ABG Base Excess ABG Hemoglobin ABG Oxyhemoglobin ABG Sodium ABG Glucose Oxyhemoglobin Sodium Potassium Chloride 96.6 L Carbon Dioxide BUN 64 H Creatinine 6.5 H Glucose 101 H POC Glucose 142 H Calcium Phosphorus Magnesium Direct Bilirubin AST 41 H Alkaline Phosphatase Albumin 2.7 L Troponin T C-Reactive Protein Qgkuv-2-Aavukwawk PEP Interpretation Triglycerides Lipase HDL Cholesterol PTH Intact Arterial Blood Glucose Arterial Blood Ionized Calcium Urine WBC (Auto) Urine Creatinine Urine Total Protein ZINA Screen Crossmatch 03/11/20 03/11/20 03/11/20 06:50 07:31 14:31 WBC Hgb 7.7 L RBC Hct 23.7 L MCV MCH RDW Plt Count 553 H Lymph % (Auto) Lymph # [place] % (Auto) [place] # Eos % (Auto) Lymph # (Auto) [place] # (Auto) Eos # (Auto) Seg Neutrophils % Seg Neutrophils # Seg Neuts % (Manual) Lymphocytes % (Manual) Monocytes % (Manual) Nucleated RBC % Seg Neutrophils # Man Lymphocytes # (Manual) Monocytes # (Manual) Eosinophils # (Manual) Basophils # (Manual) ABG pH POC ABG pCO2 POC ABG pO2 ABG pO2 67.8 L ABG HCO3 ABG O2 Saturation ABG Base Excess ABG Hemoglobin ABG Oxyhemoglobin ABG Sodium ABG Glucose Oxyhemoglobin Sodium Potassium Chloride Carbon Dioxide BUN Creatinine Glucose POC Glucose Calcium Phosphorus Magnesium Direct Bilirubin AST Alkaline Phosphatase Albumin Troponin T 0.085 H C-Reactive Protein Tdupo-0-Hbjzjgtik PEP Interpretation Triglycerides 247 H Lipase HDL Cholesterol 28 L PTH Intact Arterial Blood Glucose Arterial Blood Ionized Calcium Urine WBC (Auto) Urine Creatinine Urine Total Protein ZINA Screen Crossmatch 03/12/20 03/12/20 03/13/20 03:46 17:33 04:00 WBC Hgb 6.6 L RBC Hct 19.5 L* MCV MCH RDW Plt Count 603 H Lymph % (Auto) Lymph # [place] % (Auto) [place] # Eos % (Auto) Lymph # (Auto) [place] # (Auto) Eos # (Auto) Seg Neutrophils % Seg Neutrophils # Seg Neuts % (Manual) Lymphocytes % (Manual) Monocytes % (Manual) Nucleated RBC % Seg Neutrophils # Man Lymphocytes # (Manual) Monocytes # (Manual) Eosinophils # (Manual) Basophils # (Manual) ABG pH POC ABG pCO2 POC ABG pO2 78.3 L ABG pO2 ABG HCO3 ABG O2 Saturation ABG Base Excess ABG Hemoglobin 7.9 L ABG Oxyhemoglobin ABG Sodium 134.8 L ABG Glucose Oxyhemoglobin Sodium Potassium Chloride Carbon Dioxide BUN Creatinine Glucose POC Glucose 107 H Calcium Phosphorus Magnesium Direct Bilirubin AST Alkaline Phosphatase Albumin Troponin T C-Reactive Protein Pgybi-5-Gxsjdbbzu PEP Interpretation Triglycerides Lipase HDL Cholesterol PTH Intact Arterial Blood Glucose Arterial Blood Ionized Calcium Urine WBC (Auto) Urine Creatinine Urine Total Protein ZINA Screen Crossmatch 03/13/20 03/13/20 03/13/20 04:00 08:20 08:45 WBC Hgb 7.0 L RBC Hct 21.8 L MCV MCH RDW Plt Count Lymph % (Auto) Lymph # [place] % (Auto) [place] # Eos % (Auto) Lymph # (Auto) [place] # (Auto) Eos # (Auto) Seg Neutrophils % Seg Neutrophils # Seg Neuts % (Manual) Lymphocytes % (Manual) Monocytes % (Manual) Nucleated RBC % Seg Neutrophils # Man Lymphocytes # (Manual) Monocytes # (Manual) Eosinophils # (Manual) Basophils # (Manual) ABG pH POC ABG pCO2 POC ABG pO2 ABG pO2 ABG HCO3 27.4 H ABG O2 Saturation ABG Base Excess ABG Hemoglobin 8.7 L ABG Oxyhemoglobin ABG Sodium ABG Glucose Oxyhemoglobin 94.6 L Sodium Potassium Chloride Carbon Dioxide BUN Creatinine Glucose POC Glucose Calcium Phosphorus Magnesium Direct Bilirubin AST Alkaline Phosphatase Albumin Troponin T C-Reactive Protein Sdgaf-9-Ectcapstm PEP Interpretation Triglycerides Lipase HDL Cholesterol PTH Intact Arterial Blood Glucose Arterial Blood Ionized Calcium Urine WBC (Auto) Urine Creatinine Urine Total Protein ZINA Screen Crossmatch See Detail 03/13/20 03/13/20 03/14/20 14:23 15:38 06:15 WBC Hgb RBC Hct MCV MCH RDW Plt Count Lymph % (Auto) Lymph # [place] % (Auto) [place] # Eos % (Auto) Lymph # (Auto) [place] # (Auto) Eos # (Auto) Seg Neutrophils % Seg Neutrophils # Seg Neuts % (Manual) Lymphocytes % (Manual) Monocytes % (Manual) Nucleated RBC % Seg Neutrophils # Man Lymphocytes # (Manual) Monocytes # (Manual) Eosinophils # (Manual) Basophils # (Manual) ABG pH 7.462 H POC ABG pCO2 POC ABG pO2 75.1 L ABG pO2 ABG HCO3 ABG O2 Saturation ABG Base Excess ABG Hemoglobin 8.9 L ABG Oxyhemoglobin ABG Sodium 135.9 L ABG Glucose Oxyhemoglobin Sodium Potassium Chloride 94.2 L 93.1 L Carbon Dioxide BUN 32 H 45 H Creatinine 3.6 H 4.9 H Glucose POC Glucose Calcium Phosphorus Magnesium Direct Bilirubin AST Alkaline Phosphatase Albumin Troponin T C-Reactive Protein Tzvad-3-Miwhlamct PEP Interpretation Triglycerides Lipase HDL Cholesterol PTH Intact Arterial Blood Glucose Arterial Blood Ionized Calcium 4.5 L Urine WBC (Auto) Urine Creatinine Urine Total Protein ZINA Screen Crossmatch 03/14/20 03/14/20 03/15/20 06:15 Unknown 04:31 WBC 13.7 H Hgb 7.8 L 7.7 L 8.1 L RBC 3.13 L Hct 22.4 L 23.8 L 24.7 L MCV 76 L MCH 25 L RDW 21.6 H Plt Count 662 H 729 H Lymph % (Auto) Lymph # [place] % (Auto) [place] # Eos % (Auto) Lymph # (Auto) [place] # (Auto) 1.0 H Eos # (Auto) 0.6 H Seg Neutrophils % 71.5 H Seg Neutrophils # 9.8 H Seg Neuts % (Manual) Lymphocytes % (Manual) Monocytes % (Manual) Nucleated RBC % Seg Neutrophils # Man Lymphocytes # (Manual) Monocytes # (Manual) Eosinophils # (Manual) Basophils # (Manual) ABG pH POC ABG pCO2 POC ABG pO2 ABG pO2 ABG HCO3 ABG O2 Saturation ABG Base Excess ABG Hemoglobin ABG Oxyhemoglobin ABG Sodium ABG Glucose Oxyhemoglobin Sodium Potassium Chloride Carbon Dioxide BUN Creatinine Glucose POC Glucose Calcium Phosphorus Magnesium Direct Bilirubin AST Alkaline Phosphatase Albumin Troponin T C-Reactive Protein Rbocm-4-Yvdzuqrhs PEP Interpretation Triglycerides Lipase HDL Cholesterol PTH Intact Arterial Blood Glucose Arterial Blood Ionized Calcium Urine WBC (Auto) Urine Creatinine Urine Total Protein ZINA Screen Crossmatch 03/15/20 03/15/20 03/16/20 04:31 13:20 00:17 WBC Hgb RBC Hct MCV MCH RDW Plt Count Lymph % (Auto) Lymph # [place] % (Auto) [place] # Eos % (Auto) Lymph # (Auto) [place] # (Auto) Eos # (Auto) Seg Neutrophils % Seg Neutrophils # Seg Neuts % (Manual) Lymphocytes % (Manual) Monocytes % (Manual) Nucleated RBC % Seg Neutrophils # Man Lymphocytes # (Manual) Monocytes # (Manual) Eosinophils # (Manual) Basophils # (Manual) ABG pH POC ABG pCO2 POC ABG pO2 ABG pO2 ABG HCO3 28.9 H ABG O2 Saturation ABG Base Excess 3.9 H ABG Hemoglobin 8.6 L ABG Oxyhemoglobin ABG Sodium ABG Glucose Oxyhemoglobin 94.9 L Sodium Potassium Chloride 95.9 L Carbon Dioxide BUN 60 H Creatinine 5.6 H Glucose POC Glucose 111 H Calcium Phosphorus Magnesium Direct Bilirubin AST Alkaline Phosphatase Albumin Troponin T C-Reactive Protein Ojwuy-2-Pwbgfmynw PEP Interpretation Triglycerides Lipase HDL Cholesterol PTH Intact Arterial Blood Glucose Arterial Blood Ionized Calcium Urine WBC (Auto) Urine Creatinine Urine Total Protein ZINA Screen Crossmatch 03/16/20 03/16/20 04:52 04:52 WBC 13.9 H Hgb 8.3 L RBC 3.35 L Hct 25.8 L MCV 77 L MCH 25 L RDW 22.1 H Plt Count 799 H Lymph % (Auto) 11.1 L Lymph # [place] % (Auto) [place] # Eos % (Auto) 4.4 H Lymph # (Auto) [place] # (Auto) 0.9 H Eos # (Auto) 0.6 H Seg Neutrophils % 77.4 H Seg Neutrophils # 10.8 H Seg Neuts % (Manual) Lymphocytes % (Manual) Monocytes % (Manual) Nucleated RBC % Seg Neutrophils # Man Lymphocytes # (Manual) Monocytes # (Manual) Eosinophils # (Manual) Basophils # (Manual) ABG pH POC ABG pCO2 POC ABG pO2 ABG pO2 ABG HCO3 ABG O2 Saturation ABG Base Excess ABG Hemoglobin ABG Oxyhemoglobin ABG Sodium ABG Glucose Oxyhemoglobin Sodium Potassium Chloride 93.8 L Carbon Dioxide BUN 72 H Creatinine 5.8 H Glucose POC Glucose Calcium Phosphorus Magnesium Direct Bilirubin AST Alkaline Phosphatase Albumin 2.7 L Troponin T C-Reactive Protein [id number] PEP Interpretation Triglycerides Lipase HDL Cholesterol PTH Intact Arterial Blood Glucose Arterial Blood Ionized Calcium Urine WBC (Auto) Urine Creatinine Urine Total Protein ZINA Screen Crossmatch Allied health notes reviewed: RT
[2020-03-16] MEDS: ASPIRIN 325 MG TAB PO SCH (13:24)
[2020-03-16] MEDS: amLODIPine 10 MG TAB PO SCH (13:25)
[2020-03-16] MEDS: METOPROLOL TARTRATE 25 MG TAB PO SCH ×2 (13:25→21:44)
[2020-03-16] MEDS: PANTOPRAZOLE 40 MG TAB PO SCH (13:25)
[2020-03-16] MEDS: ASPIRIN EC 325 MG TAB PO SCH (14:35)
--- NOTE | 2020-03-16 15:03 | Progress Note ---
Assessment and Plan Cultures: Urine culture grew 10-100,000 usual xavier. Blood culture 02/26/2020 no growth 02/29/2020 sputum culture: rare usual xavier 03/06/2020 blood culture: no growth 03/07/2020 sputum culture: Ana Luisa 03/11/2020 ET aspirate: no growth thus far Assessment: 39 years old female with history of hypertension, previous kidney stone, hyperlipidemia and obesity admitted on 02/24/2020 due to a week history of severe epigastric abdominal pain radiated to the right flank and back: #Acute sepsis: Likely secondary to severe pancreatitis and related complications. Remains critically ill. #Acute severe pancreatitis: Unclear etiology. Initial non-contrasted CT showed no evidence of necrosis or pseudocyst or abscess formation. Repeat CT 03/05 with interval worsening of acute pancreatitis without clear evidence of necrosis, however was done without IV contrast due to her renal function. Ongoing fevers likely to due severe pancreatitis and ?related complications #Acute renal failure: now requiring dialysis. Nephrology on board. #Acute respiratory hypoxic failure: re-intubated 03/11/2020, back on the vent. #?Alcohol abuse Recommendations: - Complete meropenem today, would monitor off antibiotics after they stop. - Monitor fever, if more than 100 please obtain blood cultures We will follow Alan Lim MD [facility] ([facility] M: [phone] O: [phone] F: [phone] Subjective Date of service: 03/16/20 Principal diagnosis: HTNsive urgency; Morbid obesity; Ac. pancreatitis; Abdominal pain Interval history: Afebrile, white count 14 which is improved. Patient refusing BiPAP Objective - Exam Narrative Exam: General appearance: Alert no acute distress intubated Eyes: anicteric sclerae, limited HENT: Atraumatic; oropharynx endotracheal tube in place Lungs: Diminished breath sounds bilaterally CV: RRR Abdomen: Soft, distended, nontender Extremities: no edema, no cyanosis Skin: No rash. Psych: Nonagitated Neuro: Alert follows commands - Constitutional Vitals: Vital Signs Temp Pulse Resp BP Pulse Ox 97.9 F 93 H 17 169/104 100 03/16/20 13:00 03/16/20 14:45 03/16/20 14:45 03/16/20 14:45 03/16/20 14:45 Temperature -Last 24 Hours Temperature 97.9 F Temperature 98.5 F Temperature 98.4 F Temperature 98.5 F Temperature 98.4 F Temperature 98.4 F Temperature 99 F Temperature 98.8 F - Labs CBC & Chem 7: 03/16/20 04:52 03/16/20 04:52 Labs: Abnormal lab results 03/16/20 03/16/20 03/16/20 Range/Units 00:17 04:52 04:52 WBC 13.9 H (4.5-11.0) K/mm3 RBC 3.35 L (3.65-5.03) M/mm3 Hgb 8.3 L (10.1-14.3) gm/dl Hct 25.8 L (30.3-42.9) % MCV 77 L (79-97) fl MCH 25 L (28-32) pg RDW 22.1 H (13.2-15.2) % Plt Count 799 H (140-440) K/mm3 Lymph % (Auto) 11.1 L (13.4-35.0) % Eos % (Auto) 4.4 H (0.0-4.3) % [place] # (Auto) 0.9 H (0.0-0.8) K/mm3 Eos # (Auto) 0.6 H (0.0-0.4) K/mm3 Seg Neutrophils % 77.4 H (40.0-70.0) % Seg Neutrophils # 10.8 H (1.8-7.7) K/mm3 Chloride 93.8 L (98-107) mmol/L BUN 72 H (7-17) mg/dL Creatinine 5.8 H (0.6-1.2) mg/dL POC Glucose 111 H (70-105) Albumin 2.7 L (3.9-5) g/dL
[2020-03-17 05:11] LABS: Hematocrit 28.2 % (30.3-42.9); Hemoglobin 9.1 gm/dl (10.1-14.3)
[2020-03-17 05:33] LABS: Calcium 9.6 mg/dL (8.4-10.2)
[2020-03-17] MEDS: HEPARIN 5,000 UNIT/1 ML VIAL SUB-Q SCH ×3 (06:02→23:27)
[2020-03-17] MEDS: hydrALAZINE 25 MG TAB PO SCH ×3 (06:02→23:27)
--- NOTE | 2020-03-17 09:46 | Progress Note ---
Assessment and Plan Assessment * Acute kidney injury attributed to prerenal azotemia/ATN related to pancreatitis vs NSAID induced nephropathy vs PPI --Serologies: ANCA, C3, C4 - negative; ZINA positive * Acute hypoxic respiratory failure * Chest pain --Elevated troponin * Metabolic acidosis * Acute severe pancreatitis * Fever * Accelerated hypertension - resolved * Anemia Plan: * Continue HD MWF schedule for now- UF as tolerated * Monitor SCr trend and UOP for evidence of recovery - Uncertain re: renal prognosis. Patient reports 9 year hx of hypertension, untreated at times. She reports that she was not under the consistent care of a healthcare provider. * Cardiology recommendations reviewed - conservative cardiac management for now * GI recommendations reviewed * Continue antiHTN medications * Abx per ID * Hold ACEi for now * Epogen TIW prn * Dose medications for renal function * Avoid potential nephrotoxins Subjective Date of service: 03/17/20 Principal diagnosis: HTNsive urgency; Morbid obesity; Ac. pancreatitis; Abdominal pain Interval history: resting in bed today Objective - Exam Narrative Exam: General appearance: well-developed, well-nourished EENT: ATNC Respiratory: Present: Clear to Ascultation Cardiology: regular, S1S2 Gastrointestinal: normal, no tenderness, distended Integumentary: no rash, warm and dry Musculoskeletal: other (no edema) Psychiatric: cooperative - Vital Signs Vital signs: Vital Signs - 12hr 03/16/20 03/16/20 03/17/20 22:41 22:51 00:00 Temperature 98.4 F Pulse Rate 92 H 92 H Respiratory 16 Rate Blood Pressure 142/78 O2 Sat by Pulse 98 94 Oximetry 03/17/20 03/17/20 03/17/20 03:46 06:02 08:15 Temperature 98.7 F Pulse Rate 92 H 92 H Respiratory 16 Rate Blood Pressure 150/84 150/84 O2 Sat by Pulse Oximetry 03/17/20 09:03 Temperature 98.6 F Pulse Rate 98 H Respiratory 18 Rate Blood Pressure 176/87 O2 Sat by Pulse 94 Oximetry - Lab 03/17/20 04:55 03/17/20 04:55 Most recent lab results WBC 13.9 K/mm3 (4.5-11.0) H 03/16/20 04:52 RBC 3.35 M/mm3 (3.65-5.03) L 03/16/20 04:52 Hgb 9.1 gm/dl (10.1-14.3) L 03/17/20 04:55 Hct 28.2 % (30.3-42.9) L 03/17/20 04:55 MCV 77 fl (79-97) L 03/16/20 04:52 MCH 25 pg (28-32) L 03/16/20 04:52 MCHC 32 % (30-34) 03/16/20 04:52 RDW 22.1 % (13.2-15.2) H 03/16/20 04:52 Plt Count 818 K/mm3 (140-440) H 03/17/20 04:55 Lymph % (Auto) 11.1 % (13.4-35.0) L 03/16/20 04:52 [place] % (Auto) 6.3 % (0.0-7.3) 03/16/20 04:52 Eos % (Auto) 4.4 % (0.0-4.3) H 03/16/20 04:52 Baso % (Auto) 0.8 % (0.0-1.8) 03/16/20 04:52 Lymph # (Auto) 1.5 K/mm3 (1.2-5.4) 03/16/20 04:52 [place] # (Auto) 0.9 K/mm3 (0.0-0.8) H 03/16/20 04:52 Eos # (Auto) 0.6 K/mm3 (0.0-0.4) H 03/16/20 04:52 Baso # (Auto) 0.1 K/mm3 (0.0-0.1) 03/16/20 04:52 Seg Neutrophils % 77.4 % (40.0-70.0) H 03/16/20 04:52 Seg Neutrophils # 10.8 K/mm3 (1.8-7.7) H 03/16/20 04:52 ABG pH 7.420 pH Units (7.350-7.450) 03/15/20 13:20 POC ABG pCO2 40.5 mmHg (32.0-48.0) 03/13/20 14:23 ABG pCO2 45.5 mm Hg 03/15/20 13:20 POC ABG pO2 75.1 mmHg (83-108) L 03/13/20 14:23 ABG pO2 85.8 mm Hg (80.0-90.0) 03/15/20 13:20 POC ABG HCO3 28.3 03/13/20 14:23 ABG HCO3 28.9 mmol/L (20.0-26.0) H 03/15/20 13:20 ABG O2 Saturation 97.1 % (95.0-99.0) 03/15/20 13:20 ABG O2 Content 11.6 (0.0-44) 03/15/20 13:20 POC ABG Base Excess 4.2 03/13/20 14:23 ABG Base Excess 3.9 mmol/L (-2.0-3.0) H 03/15/20 13:20 ABG Hemoglobin 8.6 gm/dl (12.0-16.0) L 03/15/20 13:20 ABG Carboxyhemoglobin 1.7 % (0.0-5.0) 03/15/20 13:20 ABG Methemoglobin 0.5 % (0.0-1.5) 03/15/20 13:20 ABG Sodium 135.9 mmol/L (136.0-145.0) L 03/13/20 14:23 ABG Potassium 3.8 mmol/L (3.40-4.50) 03/13/20 14:23 ABG Chloride 98.0 mmol/L (98-107) 03/13/20 14:23 ABG Glucose 89 mg/dL (65-95) 03/13/20 14:23 Oxyhemoglobin 94.9 % (95.0-99.0) L 03/15/20 13:20 FiO2 30 % 03/15/20 13:20 Sodium 137 mmol/L (137-145) 03/17/20 04:55 Potassium 4.4 mmol/L (3.6-5.0) 03/17/20 04:55 Chloride 93.5 mmol/L (98-107) L 03/17/20 04:55 Carbon Dioxide 27 mmol/L (22-30) 03/17/20 04:55 Anion Gap 21 mmol/L 03/17/20 04:55 BUN 40 mg/dL (7-17) H 03/17/20 04:55 Creatinine 3.8 mg/dL (0.6-1.2) H 03/17/20 04:55 Estimated GFR 16 ml/min 03/17/20 04:55 BUN/Creatinine Ratio 11 % 03/17/20 04:55 Glucose 91 mg/dL (65-100) 03/17/20 04:55 POC Glucose 92 (70-105) 03/16/20 12:31 Calcium 9.6 mg/dL (8.4-10.2) 03/17/20 04:55 Phosphorus 6.10 mg/dL (2.5-4.5) H 03/01/20 04:37 Magnesium 2.00 mg/dL (1.7-2.3) 03/07/20 05:03 Total Bilirubin 0.30 mg/dL (0.1-1.2) 03/16/20 04:52 AST 30 units/L (5-40) 03/16/20 04:52 ALT 14 units/L (7-56) 03/16/20 04:52 Alkaline Phosphatase 75 units/L (35-129) 03/16/20 04:52 Total Protein 7.6 g/dL (6.3-8.2) 03/16/20 04:52 Albumin 2.7 g/dL (3.9-5) L 03/16/20 04:52 Albumin/Globulin Ratio 0.6 % 03/16/20 04:52 Arterial Blood Glucose 89 mg/dL (65-95) 03/13/20 14:23 Arterial Blood Ionized Calcium 4.5 mg/dL (4.6-5.3) L 03/13/20 14:23 Urine Creatinine 161.0 mg/dL (0.1-20.0) H 02/25/20 22:55 Urine Total Protein 150 mg/dL (5-11.8) H 02/25/20 22:55 Double Strand DNA Ab See scanned result 03/06/20 14:46 Medications & Allergies - Medications Allergies/Adverse Reactions: Allergies No Known Allergies Allergy (Unverified 09/05/19 10:15) Home Medications: Home Medications Medication Instructions Recorded Confirmed Last Taken Type Amlodipine Besylate [Norvasc] 10 mg PO DAILY 09/05/19 02/24/20 09/04/19 History Furosemide [Lasix] 20 mg PO QDAY #30 tablet 09/05/19 02/24/20 Unknown Rx Lisinopril [Zestril] 5 mg PO DAILY #30 tablet 09/05/19 02/24/20 Unknown Rx Metoprolol [Lopressor TAB] 25 mg PO BID #60 tablet 09/05/19 02/24/20 Unknown Rx Active Medications: Generic Name Dose Route Start Last Admin Trade Name Freq PRN Reason Stop Dose Admin Acetaminophen 650 mg 02/26/20 16:23 03/14/20 22:03 Tylenol PO 650 mg Q4H PRN Administration Pain, Mild (1-3)/ Temp >100. Albuterol 2.5 mg 02/27/20 17:55 Proventil IH Q4HRT PRN Shortness Of Breath Amlodipine Besylate 10 mg 02/28/20 10:00 03/16/20 13:25 Amlodipine PO 10 mg QDAY INDU Administration Aspirin 325 mg 03/15/20 11:00 03/16/20 13:24 Aspirin PO 325 mg QDAY INDU Administration Dextrose 50 ml 02/29/20 08:00 03/01/20 00:20 D50w (25gm) Syringe IV 10 ml Q30MIN PRN Administration HYPOGLYCEMIA Protocol Epoetin Prosper 10,000 unit 03/12/20 10:00 03/16/20 11:58 Procrit IV 10,000 unit NIKOLAY PRN Administration hemodialysis Heparin Sodium (Porcine) 5,000 unit 03/11/20 14:00 03/17/20 06:02 Heparin SUB-Q 5,000 unit Q8HR INDU Administration Hydralazine HCl 25 mg 03/04/20 14:00 03/17/20 06:02 Apresoline PO 25 mg Q8HR INDU Administration Hydrophilic Ointment 1 applic 03/11/20 06:01 Vaseline Lip Therapy TP Q2HR PRN Dry Lips Sodium Chloride 100 mls @ 999 mls/hr 03/08/20 17:05 Nacl 0.9% IV NIKOLAY PRN Hypotension Labetalol HCl 10 mg 02/28/20 09:00 03/11/20 03:04 Labetalol IV 10 mg Q4H PRN Administration Hypertension Metoprolol Tartrate 25 mg 02/28/20 10:00 03/16/20 21:44 Metoprolol PO 25 mg BID INDU Administration Morphine Sulfate 2 mg 03/11/20 05:13 03/16/20 01:46 Morphine IV 2 mg Q4H PRN Administration Pain, Moderate (4-6) Multi-Ingred Cream/Lotion/Oil/Oint 1 applic 03/11/20 06:01 Artificial Tears Ophth Oint OU Q4HR PRN Dry Eye(s) Nitroglycerin 0.4 mg 03/11/20 05:14 Nitrostat SL .Q5MIN PRN Chest Pain Ondansetron HCl 4 mg 02/24/20 06:45 02/25/20 23:33 Zofran IV 4 mg Q8H PRN Administration Nausea And Vomiting Pantoprazole Sodium 40 mg 03/16/20 11:00 03/16/20 13:25 Protonix PO 40 mg QDAC INDU Administration Quetiapine Fumarate 100 mg 03/16/20 22:00 03/16/20 21:44 Seroquel PO 100 mg QHS INDU Administration Sodium Chloride 10 ml 02/24/20 10:00 03/16/20 21:45 Sodium Chloride Flush Syringe 10 Ml IV 10 ml BID INDU Administration Sodium Chloride 10 ml 02/24/20 06:45 03/10/20 09:06 Sodium Chloride Flush Syringe 10 Ml IV 10 ml PRN PRN Administration LINE FLUSH
[2020-03-17] MEDS: ASPIRIN 325 MG TAB PO SCH (10:45)
[2020-03-17] MEDS: PANTOPRAZOLE 40 MG TAB PO SCH (10:45)
[2020-03-17] MEDS: METOPROLOL TARTRATE 25 MG TAB PO SCH ×2 (10:45→23:28)
[2020-03-17] MEDS: amLODIPine 10 MG TAB PO SCH (10:45)
--- NOTE | 2020-03-17 10:47 | Progress Note ---
Assessment and Plan Patient awake. Resting on room air. O2 saturation 94%. No complaint of chest pain, shortness of breath or cough. Patient admitted for pancreatitis. Patient initially complained dyspnea. No dyspnea now. Patient afebrile. Has leukocytosis. - Patient Problems (1) Dyspnea Current Visit: Yes Status: Acute Plan to address problem: Improved. No complaint of dyspnea to day. O2 saturation 94% on room air. (2) Acute pancreatitis Current Visit: Yes Status: Acute Plan to address problem: Management as per primary care. (3) Hypertensive urgency Current Visit: Yes Status: Acute Plan to address problem: Management as per primary care. Subjective Date of service: 03/17/20 Principal diagnosis: HTNsive urgency; Morbid obesity; Ac. pancreatitis; Abdominal pain Interval history: Patient awake. Resting on room air. O2 saturation 94%. No complaint of chest pain, shortness of breath or cough. Patient admitted for pancreatitis. Patient initially complained dyspnea. No dyspnea now. Patient afebrile. Has leukocytosis. Objective Vital Signs - 12hr 03/16/20 03/17/20 03/17/20 22:51 00:00 03:46 Temperature 98.4 F 98.7 F Pulse Rate 92 H 92 H Respiratory 16 16 Rate Blood Pressure 142/78 150/84 O2 Sat by Pulse 94 Oximetry 03/17/20 03/17/20 03/17/20 06:02 08:15 09:03 Temperature 98.6 F Pulse Rate 92 H 92 H 98 H Respiratory 18 Rate Blood Pressure 150/84 176/87 O2 Sat by Pulse 94 Oximetry Constitutional: no acute distress, alert Eyes: non-icteric ENT: oropharynx moist Neck: supple, no lymphadenopathy, no JVD, other (RIJ HD catheter) Effort: mildly labored Ascultation: Bilateral: diminished breath sounds (at the bases) Percussion: Bilateral: not dull Cardiovascular: regular rate and rhythm, other (S1,S2) Gastrointestinal: normoactive bowel sounds, hypoactive bowel sounds, soft, non- tender, non-distended Integumentary: normal Extremities: no cyanosis, no edema, pink and warm, pulses normal Neurologic: normal mental status, non-focal exam, pupils equal and round, CN II- XII normal, motor strength normal and Psychiatric: mood appropriate, affect normal CBC and BMP: 03/17/20 04:55 03/17/20 04:55 ABG, PT/INR, D-dimer: ABG ABG pH 7.420 pH Units (7.350-7.450) 03/15/20 13:20 POC ABG pCO2 40.5 mmHg (32.0-48.0) 03/13/20 14:23 ABG pCO2 45.5 mm Hg 03/15/20 13:20 POC ABG pO2 75.1 mmHg (83-108) L 03/13/20 14:23 ABG pO2 85.8 mm Hg (80.0-90.0) 03/15/20 13:20 POC ABG HCO3 28.3 03/13/20 14:23 ABG O2 Saturation 97.1 % (95.0-99.0) 03/15/20 13:20 PT/INR, D-dimer PT 14.1 Sec. (12.2-14.9) 03/11/20 07:31 INR 1.07 (0.87-1.13) 03/11/20 07:31 Abnormal lab findings: Abnormal Labs 02/24/20 02/24/20 02/24/20 02:53 02:53 Unknown WBC 12.7 H Hgb 10.0 L RBC Hct MCV 70 L MCH 22 L RDW 17.9 H Plt Count 458 H Lymph % (Auto) 8.9 L Lymph # 1.1 L Petroleum % (Auto) Petroleum # Eos % (Auto) Lymph # (Auto) Petroleum # (Auto) Eos # (Auto) Seg Neutrophils % 84.2 H Seg Neutrophils # 10.7 H Seg Neuts % (Manual) Lymphocytes % (Manual) Monocytes % (Manual) Nucleated RBC % Seg Neutrophils # Man Lymphocytes # (Manual) Monocytes # (Manual) Eosinophils # (Manual) Basophils # (Manual) ABG pH POC ABG pCO2 POC ABG pO2 ABG pO2 ABG HCO3 ABG O2 Saturation ABG Base Excess ABG Hemoglobin ABG Oxyhemoglobin ABG Sodium ABG Glucose Oxyhemoglobin Sodium Potassium Chloride Carbon Dioxide BUN 27 H Creatinine 1.7 H Glucose 118 H POC Glucose Calcium Phosphorus Magnesium Direct Bilirubin AST Alkaline Phosphatase Albumin Troponin T C-Reactive Protein Kdnrp-9-Yisrsvsat PEP Interpretation Triglycerides Lipase 232 H HDL Cholesterol PTH Intact Arterial Blood Glucose Arterial Blood Ionized Calcium Urine WBC (Auto) 11.0 H Urine Creatinine Urine Total Protein ZINA Screen Crossmatch 02/25/20 02/25/20 02/25/20 00:03 03:49 03:49 WBC 29.1 H Hgb 9.4 L RBC Hct 30.2 L MCV 71 L MCH 22 L RDW 18.3 H Plt Count 525 H Lymph % (Auto) 3.4 L Lymph # 1.0 L Petroleum % (Auto) Petroleum # 1.0 H Eos % (Auto) Lymph # (Auto) Petroleum # (Auto) Eos # (Auto) Seg Neutrophils % Seg Neutrophils # 26.4 H Seg Neuts % (Manual) Lymphocytes % (Manual) Monocytes % (Manual) Nucleated RBC % Seg Neutrophils # Man Lymphocytes # (Manual) Monocytes # (Manual) Eosinophils # (Manual) Basophils # (Manual) ABG pH POC ABG pCO2 POC ABG pO2 ABG pO2 ABG HCO3 ABG O2 Saturation ABG Base Excess ABG Hemoglobin ABG Oxyhemoglobin ABG Sodium ABG Glucose Oxyhemoglobin Sodium Potassium Chloride Carbon Dioxide BUN Creatinine Glucose POC Glucose 126 H Calcium Phosphorus Magnesium Direct Bilirubin AST Alkaline Phosphatase Albumin Troponin T C-Reactive Protein Zqgqm-9-Bxjycjhhc PEP Interpretation Triglycerides Lipase 1486 H HDL Cholesterol PTH Intact Arterial Blood Glucose Arterial Blood Ionized Calcium Urine WBC (Auto) Urine Creatinine Urine Total Protein ZINA Screen Crossmatch 02/25/20 02/25/20 02/25/20 03:49 05:55 22:55 WBC Hgb RBC Hct MCV MCH RDW Plt Count Lymph % (Auto) Lymph # Petroleum % (Auto) Petroleum # Eos % (Auto) Lymph # (Auto) Petroleum # (Auto) Eos # (Auto) Seg Neutrophils % Seg Neutrophils # Seg Neuts % (Manual) Lymphocytes % (Manual) Monocytes % (Manual) Nucleated RBC % Seg Neutrophils # Man Lymphocytes # (Manual) Monocytes # (Manual) Eosinophils # (Manual) Basophils # (Manual) ABG pH POC ABG pCO2 POC ABG pO2 ABG pO2 ABG HCO3 ABG O2 Saturation ABG Base Excess ABG Hemoglobin ABG Oxyhemoglobin ABG Sodium ABG Glucose Oxyhemoglobin Sodium 136 L Potassium Chloride 97.9 L Carbon Dioxide 21 L BUN 39 H Creatinine 3.0 H D Glucose 118 H POC Glucose 124 H Calcium Phosphorus Magnesium Direct Bilirubin AST Alkaline Phosphatase Albumin 3.6 L Troponin T C-Reactive Protein Twkms-5-Oqlglmeyb PEP Interpretation Triglycerides Lipase HDL Cholesterol PTH Intact Arterial Blood Glucose Arterial Blood Ionized Calcium Urine WBC (Auto) Urine Creatinine 161.0 H Urine Total Protein 150 H ZINA Screen Crossmatch 02/26/20 02/26/20 02/26/20 04:39 04:39 04:39 WBC 30.3 H Hgb 9.1 L RBC Hct 29.8 L MCV 71 L MCH 22 L RDW 18.2 H Plt Count 530 H Lymph % (Auto) Lymph # Petroleum % (Auto) Petroleum # Eos % (Auto) Lymph # (Auto) Petroleum # (Auto) Eos # (Auto) Seg Neutrophils % Seg Neutrophils # Seg Neuts % (Manual) Lymphocytes % (Manual) Monocytes % (Manual) Nucleated RBC % Seg Neutrophils # Man Lymphocytes # (Manual) Monocytes # (Manual) Eosinophils # (Manual) Basophils # (Manual) ABG pH POC ABG pCO2 POC ABG pO2 ABG pO2 ABG HCO3 ABG O2 Saturation ABG Base Excess ABG Hemoglobin ABG Oxyhemoglobin ABG Sodium ABG Glucose Oxyhemoglobin Sodium Potassium Chloride Carbon Dioxide 19 L BUN 44 H Creatinine 3.1 H Glucose 106 H POC Glucose Calcium 8.1 L Phosphorus Magnesium Direct Bilirubin AST Alkaline Phosphatase Albumin Troponin T C-Reactive Protein Yhnyg-9-Rdskzqwxq PEP Interpretation Triglycerides Lipase 540 H HDL Cholesterol PTH Intact Arterial Blood Glucose Arterial Blood Ionized Calcium Urine WBC (Auto) Urine Creatinine Urine Total Protein ZINA Screen Positive H Crossmatch 02/26/20 02/26/20 02/26/20 04:39 08:15 12:14 WBC Hgb RBC Hct MCV MCH RDW Plt Count Lymph % (Auto) Lymph # Petroleum % (Auto) Petroleum # Eos % (Auto) Lymph # (Auto) Petroleum # (Auto) Eos # (Auto) Seg Neutrophils % Seg Neutrophils # Seg Neuts % (Manual) Lymphocytes % (Manual) Monocytes % (Manual) Nucleated RBC % Seg Neutrophils # Man Lymphocytes # (Manual) Monocytes # (Manual) Eosinophils # (Manual) Basophils # (Manual) ABG pH POC ABG pCO2 POC ABG pO2 ABG pO2 ABG HCO3 ABG O2 Saturation ABG Base Excess ABG Hemoglobin ABG Oxyhemoglobin ABG Sodium ABG Glucose Oxyhemoglobin Sodium Potassium Chloride Carbon Dioxide BUN Creatinine Glucose POC Glucose 112 H Calcium Phosphorus Magnesium Direct Bilirubin AST Alkaline Phosphatase Albumin 2.8 L Troponin T C-Reactive Protein Pusmq-3-Eunzfplra 0.7 H PEP Interpretation see below H Triglycerides Lipase HDL Cholesterol PTH Intact 911.3 H Arterial Blood Glucose Arterial Blood Ionized Calcium Urine WBC (Auto) Urine Creatinine Urine Total Protein ZINA Screen Crossmatch 02/27/20 02/27/20 02/27/20 04:18 04:18 04:18 WBC 26.8 H Hgb 7.9 L RBC Hct 26.3 L MCV 70 L MCH 21 L RDW 18.0 H Plt Count 513 H Lymph % (Auto) Lymph # Petroleum % (Auto) Petroleum # Eos % (Auto) Lymph # (Auto) Petroleum # (Auto) Eos # (Auto) Seg Neutrophils % Seg Neutrophils # Seg Neuts % (Manual) Lymphocytes % (Manual) Monocytes % (Manual) Nucleated RBC % Seg Neutrophils # Man Lymphocytes # (Manual) Monocytes # (Manual) Eosinophils # (Manual) Basophils # (Manual) ABG pH POC ABG pCO2 POC ABG pO2 ABG pO2 ABG HCO3 ABG O2 Saturation ABG Base Excess ABG Hemoglobin ABG Oxyhemoglobin ABG Sodium ABG Glucose Oxyhemoglobin Sodium 135 L 135 L Potassium Chloride Carbon Dioxide 15 L 16 L BUN 50 H 51 H Creatinine 3.4 H 3.4 H Glucose POC Glucose Calcium 7.4 L 7.5 L Phosphorus Magnesium Direct Bilirubin AST Alkaline Phosphatase Albumin 3.0 L Troponin T C-Reactive Protein 37.30 H Fwkvg-5-Kkftnsirt PEP Interpretation Triglycerides Lipase 177 H HDL Cholesterol PTH Intact Arterial Blood Glucose Arterial Blood Ionized Calcium Urine WBC (Auto) Urine Creatinine Urine Total Protein ZINA Screen Crossmatch 02/27/20 02/28/20 02/28/20 16:57 05:07 05:07 WBC Hgb RBC Hct MCV MCH RDW Plt Count Lymph % (Auto) Lymph # Petroleum % (Auto) Petroleum # Eos % (Auto) Lymph # (Auto) Petroleum # (Auto) Eos # (Auto) Seg Neutrophils % Seg Neutrophils # Seg Neuts % (Manual) Lymphocytes % (Manual) Monocytes % (Manual) Nucleated RBC % Seg Neutrophils # Man Lymphocytes # (Manual) Monocytes # (Manual) Eosinophils # (Manual) Basophils # (Manual) ABG pH 7.336 L POC ABG pCO2 POC ABG pO2 ABG pO2 57.0 L ABG HCO3 16.4 L ABG O2 Saturation 88.2 L ABG Base Excess -8.4 L ABG Hemoglobin 10.4 L ABG Oxyhemoglobin ABG Sodium ABG Glucose Oxyhemoglobin 85.7 L Sodium Potassium Chloride Carbon Dioxide 14 L BUN 60 H Creatinine 4.2 H Glucose POC Glucose Calcium 8.2 L Phosphorus Magnesium Direct Bilirubin AST Alkaline Phosphatase Albumin Troponin T C-Reactive Protein Fwwbb-8-Jkbsblgtp PEP Interpretation Triglycerides Lipase 155 H HDL Cholesterol PTH Intact Arterial Blood Glucose Arterial Blood Ionized Calcium Urine WBC (Auto) Urine Creatinine Urine Total Protein ZINA Screen Crossmatch 02/28/20 02/28/20 02/28/20 05:56 11:05 11:05 WBC Hgb RBC Hct MCV MCH RDW Plt Count Lymph % (Auto) Lymph # Petroleum % (Auto) Petroleum # Eos % (Auto) Lymph # (Auto) Petroleum # (Auto) Eos # (Auto) Seg Neutrophils % Seg Neutrophils # Seg Neuts % (Manual) Lymphocytes % (Manual) Monocytes % (Manual) Nucleated RBC % Seg Neutrophils # Man Lymphocytes # (Manual) Monocytes # (Manual) Eosinophils # (Manual) Basophils # (Manual) ABG pH 7.317 L POC ABG pCO2 POC ABG pO2 76.2 L ABG pO2 ABG HCO3 16.4 L ABG O2 Saturation ABG Base Excess -8.9 L ABG Hemoglobin 6.6 L 7.6 L ABG Oxyhemoglobin ABG Sodium ABG Glucose Oxyhemoglobin 94.6 L Sodium Potassium Chloride Carbon Dioxide BUN Creatinine Glucose POC Glucose 115 H Calcium Phosphorus Magnesium Direct Bilirubin AST Alkaline Phosphatase Albumin Troponin T C-Reactive Protein Cipim-8-Oxthcmndw PEP Interpretation Triglycerides Lipase HDL Cholesterol PTH Intact Arterial Blood Glucose Arterial Blood Ionized Calcium Urine WBC (Auto) Urine Creatinine Urine Total Protein ZINA Screen Crossmatch 02/28/20 02/28/20 02/29/20 17:39 19:39 05:43 WBC Hgb RBC Hct MCV MCH RDW Plt Count Lymph % (Auto) Lymph # Petroleum % (Auto) Petroleum # Eos % (Auto) Lymph # (Auto) Petroleum # (Auto) Eos # (Auto) Seg Neutrophils % Seg Neutrophils # Seg Neuts % (Manual) Lymphocytes % (Manual) Monocytes % (Manual) Nucleated RBC % Seg Neutrophils # Man Lymphocytes # (Manual) Monocytes # (Manual) Eosinophils # (Manual) Basophils # (Manual) ABG pH 7.300 L POC ABG pCO2 POC ABG pO2 ABG pO2 117.5 H ABG HCO3 15.0 L ABG O2 Saturation ABG Base Excess -10.5 L ABG Hemoglobin 6.4 L ABG Oxyhemoglobin ABG Sodium ABG Glucose Oxyhemoglobin Sodium Potassium Chloride Carbon Dioxide BUN Creatinine Glucose POC Glucose 120 H 66 L Calcium Phosphorus Magnesium Direct Bilirubin AST Alkaline Phosphatase Albumin Troponin T C-Reactive Protein Jtkkt-3-Puywckgym PEP Interpretation Triglycerides Lipase HDL Cholesterol PTH Intact Arterial Blood Glucose Arterial Blood Ionized Calcium Urine WBC (Auto) Urine Creatinine Urine Total Protein ZINA Screen Crossmatch 02/29/20 02/29/20 02/29/20 05:45 12:04 12:31 WBC Hgb RBC Hct MCV MCH RDW Plt Count Lymph % (Auto) Lymph # Petroleum % (Auto) Petroleum # Eos % (Auto) Lymph # (Auto) Petroleum # (Auto) Eos # (Auto) Seg Neutrophils % Seg Neutrophils # Seg Neuts % (Manual) Lymphocytes % (Manual) Monocytes % (Manual) Nucleated RBC % Seg Neutrophils # Man Lymphocytes # (Manual) Monocytes # (Manual) Eosinophils # (Manual) Basophils # (Manual) ABG pH 7.212 L POC ABG pCO2 POC ABG pO2 ABG pO2 ABG HCO3 ABG O2 Saturation ABG Base Excess ABG Hemoglobin 7.4 L ABG Oxyhemoglobin ABG Sodium ABG Glucose Oxyhemoglobin Sodium Potassium Chloride Carbon Dioxide BUN Creatinine Glucose POC Glucose 65 L 64 L Calcium Phosphorus Magnesium Direct Bilirubin AST Alkaline Phosphatase Albumin Troponin T C-Reactive Protein Sekds-0-Luvgvmkwk PEP Interpretation Triglycerides Lipase HDL Cholesterol PTH Intact Arterial Blood Glucose Arterial Blood Ionized Calcium Urine WBC (Auto) Urine Creatinine Urine Total Protein ZINA Screen Crossmatch 02/29/20 02/29/20 02/29/20 14:22 14:22 18:20 WBC Hgb RBC Hct MCV MCH RDW Plt Count Lymph % (Auto) Lymph # Petroleum % (Auto) Petroleum # Eos % (Auto) Lymph # (Auto) Petroleum # (Auto) Eos # (Auto) Seg Neutrophils % Seg Neutrophils # Seg Neuts % (Manual) Lymphocytes % (Manual) Monocytes % (Manual) Nucleated RBC % Seg Neutrophils # Man Lymphocytes # (Manual) Monocytes # (Manual) Eosinophils # (Manual) Basophils # (Manual) ABG pH POC ABG pCO2 POC ABG pO2 ABG pO2 ABG HCO3 ABG O2 Saturation ABG Base Excess ABG Hemoglobin ABG Oxyhemoglobin ABG Sodium ABG Glucose Oxyhemoglobin Sodium Potassium Chloride Carbon Dioxide 16 L BUN 77 H Creatinine 4.7 H Glucose POC Glucose 66 L Calcium Phosphorus 7.50 H Magnesium 2.60 H Direct Bilirubin AST Alkaline Phosphatase Albumin 2.3 L Troponin T C-Reactive Protein Ybfqy-0-Sslozrupp PEP Interpretation Triglycerides Lipase HDL Cholesterol PTH Intact Arterial Blood Glucose Arterial Blood Ionized Calcium Urine WBC (Auto) Urine Creatinine Urine Total Protein ZINA Screen Crossmatch 02/29/20 03/01/20 03/01/20 18:24 04:05 04:37 WBC Hgb RBC Hct MCV MCH RDW Plt Count Lymph % (Auto) Lymph # Petroleum % (Auto) Petroleum # Eos % (Auto) Lymph # (Auto) Petroleum # (Auto) Eos # (Auto) Seg Neutrophils % Seg Neutrophils # Seg Neuts % (Manual) Lymphocytes % (Manual) Monocytes % (Manual) Nucleated RBC % Seg Neutrophils # Man Lymphocytes # (Manual) Monocytes # (Manual) Eosinophils # (Manual) Basophils # (Manual) ABG pH 7.271 L 7.347 L POC ABG pCO2 POC ABG pO2 ABG pO2 133.5 H ABG HCO3 15.8 L ABG O2 Saturation ABG Base Excess -8.9 L ABG Hemoglobin 7.2 L 7.6 L ABG Oxyhemoglobin 93.4 L ABG Sodium ABG Glucose Oxyhemoglobin Sodium Potassium Chloride 107.6 H Carbon Dioxide 14 L BUN 83 H Creatinine 5.6 H Glucose POC Glucose Calcium Phosphorus 6.10 H Magnesium 2.40 H Direct Bilirubin AST Alkaline Phosphatase Albumin Troponin T C-Reactive Protein Srhhg-0-Nidsfujgz PEP Interpretation Triglycerides Lipase HDL Cholesterol PTH Intact Arterial Blood Glucose Arterial Blood Ionized Calcium Urine WBC (Auto) Urine Creatinine Urine Total Protein ZINA Screen Crossmatch 03/01/20 03/01/20 03/01/20 11:06 16:22 18:12 WBC 30.5 H Hgb 6.2 L RBC 2.92 L Hct 20.8 L MCV 71 L MCH 21 L RDW 18.2 H Plt Count 560 H Lymph % (Auto) Lymph # Petroleum % (Auto) Petroleum # Eos % (Auto) Lymph # (Auto) Petroleum # (Auto) Eos # (Auto) Seg Neutrophils % Seg Neutrophils # Seg Neuts % (Manual) 79.0 H Lymphocytes % (Manual) 3.0 L Monocytes % (Manual) Nucleated RBC % Seg Neutrophils # Man 24.1 H Lymphocytes # (Manual) 0.9 L Monocytes # (Manual) 2.1 H Eosinophils # (Manual) Basophils # (Manual) ABG pH POC ABG pCO2 POC ABG pO2 ABG pO2 ABG HCO3 ABG O2 Saturation ABG Base Excess ABG Hemoglobin ABG Oxyhemoglobin ABG Sodium ABG Glucose Oxyhemoglobin Sodium Potassium 5.3 H D Chloride Carbon Dioxide 11 L BUN 77 H Creatinine 5.0 H Glucose 54 L POC Glucose 121 H Calcium Phosphorus Magnesium Direct Bilirubin AST Alkaline Phosphatase Albumin 3.0 L Troponin T C-Reactive Protein 36.50 H Ukanm-7-Hhnmkzdfd PEP Interpretation Triglycerides Lipase HDL Cholesterol PTH Intact Arterial Blood Glucose Arterial Blood Ionized Calcium Urine WBC (Auto) Urine Creatinine Urine Total Protein ZINA Screen Crossmatch 03/01/20 03/01/20 03/01/20 18:30 23:37 Unknown WBC Hgb RBC Hct MCV MCH RDW Plt Count Lymph % (Auto) Lymph # Petroleum % (Auto) Petroleum # Eos % (Auto) Lymph # (Auto) Petroleum # (Auto) Eos # (Auto) Seg Neutrophils % Seg Neutrophils # Seg Neuts % (Manual) Lymphocytes % (Manual) Monocytes % (Manual) Nucleated RBC % Seg Neutrophils # Man Lymphocytes # (Manual) Monocytes # (Manual) Eosinophils # (Manual) Basophils # (Manual) ABG pH POC ABG pCO2 POC ABG pO2 ABG pO2 ABG HCO3 ABG O2 Saturation ABG Base Excess ABG Hemoglobin ABG Oxyhemoglobin ABG Sodium ABG Glucose Oxyhemoglobin Sodium Potassium Chloride Carbon Dioxide BUN Creatinine Glucose POC Glucose 125 H Calcium Phosphorus Magnesium Direct Bilirubin AST Alkaline Phosphatase Albumin Troponin T C-Reactive Protein Jdfzo-2-Zxghbosrl PEP Interpretation Triglycerides Lipase 297 H HDL Cholesterol PTH Intact Arterial Blood Glucose Arterial Blood Ionized Calcium Urine WBC (Auto) Urine Creatinine Urine Total Protein ZINA Screen Crossmatch See Detail 03/02/20 03/02/20 03/02/20 04:00 05:36 05:36 WBC 26.0 H Hgb 7.8 L RBC 3.26 L Hct 24.2 L MCV 74 L MCH 24 L RDW 21.3 H Plt Count 508 H Lymph % (Auto) Lymph # Petroleum % (Auto) Petroleum # Eos % (Auto) Lymph # (Auto) Petroleum # (Auto) Eos # (Auto) Seg Neutrophils % Seg Neutrophils # Seg Neuts % (Manual) 86.0 H Lymphocytes % (Manual) 4.0 L Monocytes % (Manual) Nucleated RBC % 2.0 H Seg Neutrophils # Man 22.4 H Lymphocytes # (Manual) 1.0 L Monocytes # (Manual) Eosinophils # (Manual) Basophils # (Manual) ABG pH POC ABG pCO2 27.8 L POC ABG pO2 ABG pO2 ABG HCO3 ABG O2 Saturation ABG Base Excess ABG Hemoglobin 8 L ABG Oxyhemoglobin ABG Sodium ABG Glucose Oxyhemoglobin Sodium Potassium Chloride Carbon Dioxide 17 L BUN 85 H Creatinine 5.6 H Glucose 109 H POC Glucose Calcium Phosphorus Magnesium 2.50 H Direct Bilirubin AST Alkaline Phosphatase Albumin 2.3 L Troponin T C-Reactive Protein Flcuu-4-Jaczpxtwd PEP Interpretation Triglycerides Lipase HDL Cholesterol PTH Intact Arterial Blood Glucose Arterial Blood Ionized Calcium Urine WBC (Auto) Urine Creatinine Urine Total Protein ZINA Screen Crossmatch 03/03/20 03/03/20 03/03/20 04:00 04:36 04:36 WBC Hgb RBC Hct MCV MCH RDW Plt Count Lymph % (Auto) Lymph # Petroleum % (Auto) Petroleum # Eos % (Auto) Lymph # (Auto) Petroleum # (Auto) Eos # (Auto) Seg Neutrophils % Seg Neutrophils # Seg Neuts % (Manual) Lymphocytes % (Manual) Monocytes % (Manual) Nucleated RBC % Seg Neutrophils # Man Lymphocytes # (Manual) Monocytes # (Manual) Eosinophils # (Manual) Basophils # (Manual) ABG pH POC ABG pCO2 31.8 L POC ABG pO2 ABG pO2 ABG HCO3 ABG O2 Saturation ABG Base Excess ABG Hemoglobin 8.6 L ABG Oxyhemoglobin ABG Sodium ABG Glucose Oxyhemoglobin Sodium 147 H Potassium Chloride 108.4 H Carbon Dioxide 16 L BUN 87 H Creatinine 6.2 H Glucose POC Glucose Calcium Phosphorus Magnesium 2.50 H Direct Bilirubin 1.0 H AST Alkaline Phosphatase Albumin 2.4 L Troponin T C-Reactive Protein Nhepk-7-Bhgbnykfi PEP Interpretation Triglycerides Lipase 119 H HDL Cholesterol PTH Intact Arterial Blood Glucose Arterial Blood Ionized Calcium Urine WBC (Auto) Urine Creatinine Urine Total Protein ZINA Screen Crossmatch 03/03/20 03/03/20 03/03/20 04:36 12:48 17:48 WBC 28.0 H Hgb 8.1 L RBC 3.41 L Hct 25.3 L MCV 74 L MCH 24 L RDW 20.8 H Plt Count 557 H Lymph % (Auto) Lymph # Petroleum % (Auto) Petroleum # Eos % (Auto) Lymph # (Auto) Petroleum # (Auto) Eos # (Auto) Seg Neutrophils % Seg Neutrophils # Seg Neuts % (Manual) 82.0 H Lymphocytes % (Manual) 4.0 L Monocytes % (Manual) Nucleated RBC % Seg Neutrophils # Man 23.0 H Lymphocytes # (Manual) 1.1 L Monocytes # (Manual) 2.0 H Eosinophils # (Manual) Basophils # (Manual) ABG pH POC ABG pCO2 POC ABG pO2 ABG pO2 ABG HCO3 ABG O2 Saturation ABG Base Excess ABG Hemoglobin ABG Oxyhemoglobin ABG Sodium ABG Glucose Oxyhemoglobin Sodium Potassium Chloride Carbon Dioxide BUN Creatinine Glucose POC Glucose 131 H 113 H Calcium Phosphorus Magnesium Direct Bilirubin AST Alkaline Phosphatase Albumin Troponin T C-Reactive Protein Nadyk-1-Qrlmneabr PEP Interpretation Triglycerides Lipase HDL Cholesterol PTH Intact Arterial Blood Glucose Arterial Blood Ionized Calcium Urine WBC (Auto) Urine Creatinine Urine Total Protein ZINA Screen Crossmatch 03/03/20 03/04/20 03/04/20 23:43 03:43 04:05 WBC Hgb RBC Hct MCV MCH RDW Plt Count Lymph % (Auto) Lymph # Petroleum % (Auto) Petroleum # Eos % (Auto) Lymph # (Auto) Petroleum # (Auto) Eos # (Auto) Seg Neutrophils % Seg Neutrophils # Seg Neuts % (Manual) Lymphocytes % (Manual) Monocytes % (Manual) Nucleated RBC % Seg Neutrophils # Man Lymphocytes # (Manual) Monocytes # (Manual) Eosinophils # (Manual) Basophils # (Manual) ABG pH POC ABG pCO2 POC ABG pO2 ABG pO2 57.4 L ABG HCO3 27.2 H ABG O2 Saturation 88.6 L ABG Base Excess ABG Hemoglobin ABG Oxyhemoglobin ABG Sodium ABG Glucose Oxyhemoglobin Sodium Potassium 3.3 L Chloride Carbon Dioxide BUN 65 H Creatinine 5.3 H Glucose 152 H POC Glucose 149 H Calcium Phosphorus Magnesium Direct Bilirubin 0.7 H AST Alkaline Phosphatase Albumin 2.5 L Troponin T C-Reactive Protein Jdcdz-8-Lgrfgvzbo PEP Interpretation Triglycerides Lipase HDL Cholesterol PTH Intact Arterial Blood Glucose Arterial Blood Ionized Calcium Urine WBC (Auto) Urine Creatinine Urine Total Protein ZINA Screen Crossmatch 03/04/20 03/04/20 03/04/20 04:05 05:26 12:21 WBC 30.1 H Hgb 8.2 L RBC 3.44 L Hct 25.2 L MCV 73 L MCH 24 L RDW 20.7 H Plt Count 554 H Lymph % (Auto) 3.3 L Lymph # Petroleum % (Auto) Petroleum # Eos % (Auto) Lymph # (Auto) 1.0 L Petroleum # (Auto) 2.0 H Eos # (Auto) Seg Neutrophils % 88.6 H Seg Neutrophils # 26.6 H Seg Neuts % (Manual) Lymphocytes % (Manual) Monocytes % (Manual) Nucleated RBC % Seg Neutrophils # Man Lymphocytes # (Manual) Monocytes # (Manual) Eosinophils # (Manual) Basophils # (Manual) ABG pH POC ABG pCO2 POC ABG pO2 ABG pO2 ABG HCO3 ABG O2 Saturation ABG Base Excess ABG Hemoglobin ABG Oxyhemoglobin ABG Sodium ABG Glucose Oxyhemoglobin Sodium Potassium Chloride Carbon Dioxide BUN Creatinine Glucose POC Glucose 136 H 155 H Calcium Phosphorus Magnesium Direct Bilirubin AST Alkaline Phosphatase Albumin Troponin T C-Reactive Protein Syyoy-3-Gjiessrlg PEP Interpretation Triglycerides Lipase HDL Cholesterol PTH Intact Arterial Blood Glucose Arterial Blood Ionized Calcium Urine WBC (Auto) Urine Creatinine Urine Total Protein ZINA Screen Crossmatch 03/04/20 03/04/20 03/04/20 18:02 19:00 23:24 WBC Hgb RBC Hct MCV MCH RDW Plt Count Lymph % (Auto) Lymph # Petroleum % (Auto) Petroleum # Eos % (Auto) Lymph # (Auto) Petroleum # (Auto) Eos # (Auto) Seg Neutrophils % Seg Neutrophils # Seg Neuts % (Manual) Lymphocytes % (Manual) Monocytes % (Manual) Nucleated RBC % Seg Neutrophils # Man Lymphocytes # (Manual) Monocytes # (Manual) Eosinophils # (Manual) Basophils # (Manual) ABG pH POC ABG pCO2 POC ABG pO2 ABG pO2 ABG HCO3 ABG O2 Saturation ABG Base Excess ABG Hemoglobin ABG Oxyhemoglobin ABG Sodium ABG Glucose Oxyhemoglobin Sodium Potassium Chloride Carbon Dioxide BUN Creatinine Glucose POC Glucose 124 H 115 H Calcium Phosphorus Magnesium Direct Bilirubin AST Alkaline Phosphatase Albumin Troponin T C-Reactive Protein Xjhtc-0-Bqgbmdrek PEP Interpretation Triglycerides Lipase 72 H HDL Cholesterol PTH Intact Arterial Blood Glucose Arterial Blood Ionized Calcium Urine WBC (Auto) Urine Creatinine Urine Total Protein ZINA Screen Crossmatch 03/05/20 03/05/20 03/05/20 05:04 05:29 06:00 WBC Hgb RBC Hct MCV MCH RDW Plt Count Lymph % (Auto) Lymph # Petroleum % (Auto) Petroleum # Eos % (Auto) Lymph # (Auto) Petroleum # (Auto) Eos # (Auto) Seg Neutrophils % Seg Neutrophils # Seg Neuts % (Manual) Lymphocytes % (Manual) Monocytes % (Manual) Nucleated RBC % Seg Neutrophils # Man Lymphocytes # (Manual) Monocytes # (Manual) Eosinophils # (Manual) Basophils # (Manual) ABG pH POC ABG pCO2 POC ABG pO2 ABG pO2 62.5 L ABG HCO3 26.4 H ABG O2 Saturation 92.1 L ABG Base Excess ABG Hemoglobin 9.3 L ABG Oxyhemoglobin ABG Sodium ABG Glucose Oxyhemoglobin 89.9 L Sodium Potassium Chloride Carbon Dioxide BUN 54 H Creatinine 5.4 H Glucose 125 H POC Glucose 134 H Calcium Phosphorus Magnesium Direct Bilirubin 0.6 H AST Alkaline Phosphatase 133 H Albumin 2.5 L Troponin T C-Reactive Protein Ppigv-6-Gglvuecuw PEP Interpretation Triglycerides Lipase HDL Cholesterol PTH Intact Arterial Blood Glucose Arterial Blood Ionized Calcium Urine WBC (Auto) Urine Creatinine Urine Total Protein ZINA Screen Crossmatch 03/05/20 03/05/20 03/05/20 12:18 18:01 21:39 WBC Hgb RBC Hct MCV MCH RDW Plt Count Lymph % (Auto) Lymph # Petroleum % (Auto) Petroleum # Eos % (Auto) Lymph # (Auto) Petroleum # (Auto) Eos # (Auto) Seg Neutrophils % Seg Neutrophils # Seg Neuts % (Manual) Lymphocytes % (Manual) Monocytes % (Manual) Nucleated RBC % Seg Neutrophils # Man Lymphocytes # (Manual) Monocytes # (Manual) Eosinophils # (Manual) Basophils # (Manual) ABG pH POC ABG pCO2 POC ABG pO2 ABG pO2 ABG HCO3 ABG O2 Saturation ABG Base Excess ABG Hemoglobin ABG Oxyhemoglobin ABG Sodium ABG Glucose Oxyhemoglobin Sodium Potassium Chloride Carbon Dioxide BUN Creatinine Glucose POC Glucose 118 H 108 H 123 H Calcium Phosphorus Magnesium Direct Bilirubin AST Alkaline Phosphatase Albumin Troponin T C-Reactive Protein Ompcc-6-Iakcettqh PEP Interpretation Triglycerides Lipase HDL Cholesterol PTH Intact Arterial Blood Glucose Arterial Blood Ionized Calcium Urine WBC (Auto) Urine Creatinine Urine Total Protein ZINA Screen Crossmatch 03/06/20 03/06/20 03/06/20 04:40 04:41 05:44 WBC Hgb RBC Hct MCV MCH RDW Plt Count Lymph % (Auto) Lymph # Petroleum % (Auto) Petroleum # Eos % (Auto) Lymph # (Auto) Petroleum # (Auto) Eos # (Auto) Seg Neutrophils % Seg Neutrophils # Seg Neuts % (Manual) Lymphocytes % (Manual) Monocytes % (Manual) Nucleated RBC % Seg Neutrophils # Man Lymphocytes # (Manual) Monocytes # (Manual) Eosinophils # (Manual) Basophils # (Manual) ABG pH POC ABG pCO2 POC ABG pO2 64.9 L ABG pO2 ABG HCO3 ABG O2 Saturation ABG Base Excess ABG Hemoglobin 9.9 L ABG Oxyhemoglobin 90.5 L ABG Sodium ABG Glucose Oxyhemoglobin Sodium Potassium Chloride 94.7 L Carbon Dioxide BUN 70 H Creatinine 7.1 H Glucose 113 H POC Glucose 134 H Calcium Phosphorus Magnesium Direct Bilirubin AST Alkaline Phosphatase Albumin Troponin T C-Reactive Protein Ybpem-5-Qdrkbdbwi PEP Interpretation Triglycerides Lipase HDL Cholesterol PTH Intact Arterial Blood Glucose Arterial Blood Ionized Calcium Urine WBC (Auto) Urine Creatinine Urine Total Protein ZINA Screen Crossmatch 03/06/20 03/06/20 03/06/20 08:54 11:56 18:19 WBC 31.5 H Hgb 8.7 L RBC Hct 27.8 L MCV 75 L MCH 23 L RDW 21.2 H Plt Count 516 H Lymph % (Auto) Lymph # Petroleum % (Auto) Petroleum # Eos % (Auto) Lymph # (Auto) Petroleum # (Auto) Eos # (Auto) Seg Neutrophils % Seg Neutrophils # Seg Neuts % (Manual) 93.0 H Lymphocytes % (Manual) 2.0 L Monocytes % (Manual) Nucleated RBC % Seg Neutrophils # Man 29.3 H Lymphocytes # (Manual) 0.6 L Monocytes # (Manual) Eosinophils # (Manual) 0.6 H Basophils # (Manual) ABG pH POC ABG pCO2 POC ABG pO2 ABG pO2 ABG HCO3 ABG O2 Saturation ABG Base Excess ABG Hemoglobin ABG Oxyhemoglobin ABG Sodium ABG Glucose Oxyhemoglobin Sodium Potassium Chloride Carbon Dioxide BUN Creatinine Glucose POC Glucose 131 H 117 H Calcium Phosphorus Magnesium Direct Bilirubin AST Alkaline Phosphatase Albumin Troponin T C-Reactive Protein Nikoh-4-Bljnkerww PEP Interpretation Triglycerides Lipase HDL Cholesterol PTH Intact Arterial Blood Glucose Arterial Blood Ionized Calcium Urine WBC (Auto) Urine Creatinine Urine Total Protein ZINA Screen Crossmatch 03/07/20 03/07/20 03/07/20 04:42 05:03 05:03 WBC 26.9 H Hgb 8.3 L RBC 3.50 L Hct 26.6 L MCV 76 L MCH 24 L RDW 21.3 H Plt Count 470 H Lymph % (Auto) Lymph # Petroleum % (Auto) Petroleum # Eos % (Auto) Lymph # (Auto) Petroleum # (Auto) Eos # (Auto) Seg Neutrophils % Seg Neutrophils # Seg Neuts % (Manual) 89.0 H Lymphocytes % (Manual) 4.0 L Monocytes % (Manual) Nucleated RBC % Seg Neutrophils # Man 23.9 H Lymphocytes # (Manual) 1.1 L Monocytes # (Manual) Eosinophils # (Manual) Basophils # (Manual) 0.3 H ABG pH POC ABG pCO2 POC ABG pO2 68.3 L ABG pO2 ABG HCO3 ABG O2 Saturation ABG Base Excess ABG Hemoglobin 9.3 L ABG Oxyhemoglobin ABG Sodium ABG Glucose 112 H Oxyhemoglobin Sodium Potassium Chloride 94.8 L Carbon Dioxide BUN 52 H Creatinine 6.3 H Glucose 106 H POC Glucose Calcium Phosphorus Magnesium Direct Bilirubin AST Alkaline Phosphatase 132 H Albumin 2.5 L Troponin T C-Reactive Protein Pbiiy-9-Zopmdwnet PEP Interpretation Triglycerides Lipase HDL Cholesterol PTH Intact Arterial Blood Glucose 112 H Arterial Blood Ionized Calcium Urine WBC (Auto) Urine Creatinine Urine Total Protein ZINA Screen Crossmatch 03/07/20 03/07/20 03/07/20 12:08 18:05 23:29 WBC Hgb RBC Hct MCV MCH RDW Plt Count Lymph % (Auto) Lymph # Petroleum % (Auto) Petroleum # Eos % (Auto) Lymph # (Auto) Petroleum # (Auto) Eos # (Auto) Seg Neutrophils % Seg Neutrophils # Seg Neuts % (Manual) Lymphocytes % (Manual) Monocytes % (Manual) Nucleated RBC % Seg Neutrophils # Man Lymphocytes # (Manual) Monocytes # (Manual) Eosinophils # (Manual) Basophils # (Manual) ABG pH POC ABG pCO2 POC ABG pO2 ABG pO2 ABG HCO3 ABG O2 Saturation ABG Base Excess ABG Hemoglobin ABG Oxyhemoglobin ABG Sodium ABG Glucose Oxyhemoglobin Sodium Potassium Chloride Carbon Dioxide BUN Creatinine Glucose POC Glucose 114 H 111 H 118 H Calcium Phosphorus Magnesium Direct Bilirubin AST Alkaline Phosphatase Albumin Troponin T C-Reactive Protein Hfgtg-8-Rrssdlxju PEP Interpretation Triglycerides Lipase HDL Cholesterol PTH Intact Arterial Blood Glucose Arterial Blood Ionized Calcium Urine WBC (Auto) Urine Creatinine Urine Total Protein ZINA Screen Crossmatch 03/08/20 03/08/20 03/08/20 04:50 17:45 23:53 WBC Hgb RBC Hct MCV MCH RDW Plt Count Lymph % (Auto) Lymph # Petroleum % (Auto) Petroleum # Eos % (Auto) Lymph # (Auto) Petroleum # (Auto) Eos # (Auto) Seg Neutrophils % Seg Neutrophils # Seg Neuts % (Manual) Lymphocytes % (Manual) Monocytes % (Manual) Nucleated RBC % Seg Neutrophils # Man Lymphocytes # (Manual) Monocytes # (Manual) Eosinophils # (Manual) Basophils # (Manual) ABG pH POC ABG pCO2 POC ABG pO2 ABG pO2 ABG HCO3 ABG O2 Saturation ABG Base Excess ABG Hemoglobin ABG Oxyhemoglobin ABG Sodium ABG Glucose Oxyhemoglobin Sodium Potassium Chloride 95.5 L Carbon Dioxide BUN 52 H Creatinine 6.2 H Glucose 109 H POC Glucose 106 H 106 H Calcium Phosphorus Magnesium Direct Bilirubin AST Alkaline Phosphatase Albumin Troponin T C-Reactive Protein Ljncw-8-Cbyfgdjvt PEP Interpretation Triglycerides Lipase HDL Cholesterol PTH Intact Arterial Blood Glucose Arterial Blood Ionized Calcium Urine WBC (Auto) Urine Creatinine Urine Total Protein ZINA Screen Crossmatch 03/09/20 03/09/20 03/09/20 04:00 07:53 18:22 WBC 21.9 H Hgb 7.5 L RBC 3.27 L Hct 24.3 L MCV 74 L MCH 23 L RDW 20.9 H Plt Count 488 H Lymph % (Auto) Lymph # Petroleum % (Auto) Petroleum # Eos % (Auto) Lymph # (Auto) Petroleum # (Auto) Eos # (Auto) Seg Neutrophils % Seg Neutrophils # Seg Neuts % (Manual) Lymphocytes % (Manual) Monocytes % (Manual) Nucleated RBC % Seg Neutrophils # Man Lymphocytes # (Manual) Monocytes # (Manual) Eosinophils # (Manual) Basophils # (Manual) ABG pH POC ABG pCO2 POC ABG pO2 ABG pO2 ABG HCO3 ABG O2 Saturation ABG Base Excess ABG Hemoglobin ABG Oxyhemoglobin ABG Sodium ABG Glucose Oxyhemoglobin Sodium Potassium Chloride 92.8 L Carbon Dioxide BUN 74 H Creatinine 7.8 H Glucose POC Glucose 114 H Calcium Phosphorus Magnesium Direct Bilirubin AST Alkaline Phosphatase Albumin Troponin T C-Reactive Protein Qcbuj-1-Mkzyejawd PEP Interpretation Triglycerides Lipase HDL Cholesterol PTH Intact Arterial Blood Glucose Arterial Blood Ionized Calcium Urine WBC (Auto) Urine Creatinine Urine Total Protein ZINA Screen Crossmatch 03/10/20 03/10/20 03/10/20 04:37 04:37 09:53 WBC 16.0 H Hgb 7.1 L RBC 2.99 L Hct 22.4 L MCV 75 L MCH 24 L RDW 21.5 H Plt Count Lymph % (Auto) 9.2 L Lymph # Petroleum % (Auto) 9.9 H Petroleum # Eos % (Auto) Lymph # (Auto) Petroleum # (Auto) 1.6 H Eos # (Auto) Seg Neutrophils % 79.2 H Seg Neutrophils # 12.6 H Seg Neuts % (Manual) Lymphocytes % (Manual) Monocytes % (Manual) Nucleated RBC % Seg Neutrophils # Man Lymphocytes # (Manual) Monocytes # (Manual) Eosinophils # (Manual) Basophils # (Manual) ABG pH POC ABG pCO2 POC ABG pO2 ABG pO2 ABG HCO3 ABG O2 Saturation ABG Base Excess ABG Hemoglobin 7.7 L ABG Oxyhemoglobin ABG Sodium 134.7 L ABG Glucose 103 H Oxyhemoglobin Sodium Potassium Chloride Carbon Dioxide BUN 45 H Creatinine 5.6 H Glucose 108 H POC Glucose Calcium Phosphorus Magnesium Direct Bilirubin AST Alkaline Phosphatase Albumin Troponin T C-Reactive Protein Wcohf-3-Kptpfazbi PEP Interpretation Triglycerides Lipase HDL Cholesterol PTH Intact Arterial Blood Glucose 103 H Arterial Blood Ionized Calcium Urine WBC (Auto) Urine Creatinine Urine Total Protein ZINA Screen Crossmatch 03/10/20 03/11/20 03/11/20 23:46 02:52 03:25 WBC Hgb RBC Hct MCV MCH RDW Plt Count Lymph % (Auto) Lymph # Petroleum % (Auto) Petroleum # Eos % (Auto) Lymph # (Auto) Petroleum # (Auto) Eos # (Auto) Seg Neutrophils % Seg Neutrophils # Seg Neuts % (Manual) Lymphocytes % (Manual) Monocytes % (Manual) Nucleated RBC % Seg Neutrophils # Man Lymphocytes # (Manual) Monocytes # (Manual) Eosinophils # (Manual) Basophils # (Manual) ABG pH POC ABG pCO2 POC ABG pO2 77.5 L ABG pO2 ABG HCO3 ABG O2 Saturation ABG Base Excess ABG Hemoglobin 8.0 L ABG Oxyhemoglobin ABG Sodium 135.8 L ABG Glucose Oxyhemoglobin Sodium Potassium Chloride Carbon Dioxide BUN Creatinine Glucose POC Glucose 116 H Calcium Phosphorus Magnesium Direct Bilirubin AST Alkaline Phosphatase Albumin Troponin T 0.093 H C-Reactive Protein Vawna-9-Ywcnsguex PEP Interpretation Triglycerides Lipase HDL Cholesterol PTH Intact Arterial Blood Glucose Arterial Blood Ionized Calcium Urine WBC (Auto) Urine Creatinine Urine Total Protein ZINA Screen Crossmatch 03/11/20 03/11/20 03/11/20 04:32 04:32 06:16 WBC 22.4 H Hgb 7.8 L RBC 3.32 L Hct 25.0 L MCV 75 L MCH 24 L RDW 21.4 H Plt Count 553 H Lymph % (Auto) Lymph # Petroleum % (Auto) Petroleum # Eos % (Auto) Lymph # (Auto) Petroleum # (Auto) Eos # (Auto) Seg Neutrophils % Seg Neutrophils # Seg Neuts % (Manual) 81.0 H Lymphocytes % (Manual) 8.0 L Monocytes % (Manual) 8.0 H Nucleated RBC % Seg Neutrophils # Man 18.1 H Lymphocytes # (Manual) Monocytes # (Manual) 1.8 H Eosinophils # (Manual) Basophils # (Manual) 0.2 H ABG pH POC ABG pCO2 POC ABG pO2 ABG pO2 ABG HCO3 ABG O2 Saturation ABG Base Excess ABG Hemoglobin ABG Oxyhemoglobin ABG Sodium ABG Glucose Oxyhemoglobin Sodium Potassium Chloride 96.6 L Carbon Dioxide BUN 64 H Creatinine 6.5 H Glucose 101 H POC Glucose 142 H Calcium Phosphorus Magnesium Direct Bilirubin AST 41 H Alkaline Phosphatase Albumin 2.7 L Troponin T C-Reactive Protein Qsvlo-2-Vbmytdzrc PEP Interpretation Triglycerides Lipase HDL Cholesterol PTH Intact Arterial Blood Glucose Arterial Blood Ionized Calcium Urine WBC (Auto) Urine Creatinine Urine Total Protein ZINA Screen Crossmatch 03/11/20 03/11/20 03/11/20 06:50 07:31 14:31 WBC Hgb 7.7 L RBC Hct 23.7 L MCV MCH RDW Plt Count 553 H Lymph % (Auto) Lymph # Petroleum % (Auto) Petroleum # Eos % (Auto) Lymph # (Auto) Petroleum # (Auto) Eos # (Auto) Seg Neutrophils % Seg Neutrophils # Seg Neuts % (Manual) Lymphocytes % (Manual) Monocytes % (Manual) Nucleated RBC % Seg Neutrophils # Man Lymphocytes # (Manual) Monocytes # (Manual) Eosinophils # (Manual) Basophils # (Manual) ABG pH POC ABG pCO2 POC ABG pO2 ABG pO2 67.8 L ABG HCO3 ABG O2 Saturation ABG Base Excess ABG Hemoglobin ABG Oxyhemoglobin ABG Sodium ABG Glucose Oxyhemoglobin Sodium Potassium Chloride Carbon Dioxide BUN Creatinine Glucose POC Glucose Calcium Phosphorus Magnesium Direct Bilirubin AST Alkaline Phosphatase Albumin Troponin T 0.085 H C-Reactive Protein Fkqmq-4-Kqpvcxvdw PEP Interpretation Triglycerides 247 H Lipase HDL Cholesterol 28 L PTH Intact Arterial Blood Glucose Arterial Blood Ionized Calcium Urine WBC (Auto) Urine Creatinine Urine Total Protein ZINA Screen Crossmatch 03/12/20 03/12/20 03/13/20 03:46 17:33 04:00 WBC Hgb 6.6 L RBC Hct 19.5 L* MCV MCH RDW Plt Count 603 H Lymph % (Auto) Lymph # Petroleum % (Auto) Petroleum # Eos % (Auto) Lymph # (Auto) Petroleum # (Auto) Eos # (Auto) Seg Neutrophils % Seg Neutrophils # Seg Neuts % (Manual) Lymphocytes % (Manual) Monocytes % (Manual) Nucleated RBC % Seg Neutrophils # Man Lymphocytes # (Manual) Monocytes # (Manual) Eosinophils # (Manual) Basophils # (Manual) ABG pH POC ABG pCO2 POC ABG pO2 78.3 L ABG pO2 ABG HCO3 ABG O2 Saturation ABG Base Excess ABG Hemoglobin 7.9 L ABG Oxyhemoglobin ABG Sodium 134.8 L ABG Glucose Oxyhemoglobin Sodium Potassium Chloride Carbon Dioxide BUN Creatinine Glucose POC Glucose 107 H Calcium Phosphorus Magnesium Direct Bilirubin AST Alkaline Phosphatase Albumin Troponin T C-Reactive Protein Ealrc-1-Velhjgypo PEP Interpretation Triglycerides Lipase HDL Cholesterol PTH Intact Arterial Blood Glucose Arterial Blood Ionized Calcium Urine WBC (Auto) Urine Creatinine Urine Total Protein ZINA Screen Crossmatch 03/13/20 03/13/20 03/13/20 04:00 08:20 08:45 WBC Hgb 7.0 L RBC Hct 21.8 L MCV MCH RDW Plt Count Lymph % (Auto) Lymph # Petroleum % (Auto) Petroleum # Eos % (Auto) Lymph # (Auto) Petroleum # (Auto) Eos # (Auto) Seg Neutrophils % Seg Neutrophils # Seg Neuts % (Manual) Lymphocytes % (Manual) Monocytes % (Manual) Nucleated RBC % Seg Neutrophils # Man Lymphocytes # (Manual) Monocytes # (Manual) Eosinophils # (Manual) Basophils # (Manual) ABG pH POC ABG pCO2 POC ABG pO2 ABG pO2 ABG HCO3 27.4 H ABG O2 Saturation ABG Base Excess ABG Hemoglobin 8.7 L ABG Oxyhemoglobin ABG Sodium ABG Glucose Oxyhemoglobin 94.6 L Sodium Potassium Chloride Carbon Dioxide BUN Creatinine Glucose POC Glucose Calcium Phosphorus Magnesium Direct Bilirubin AST Alkaline Phosphatase Albumin Troponin T C-Reactive Protein Hgxkk-8-Tqiuzgoju PEP Interpretation Triglycerides Lipase HDL Cholesterol PTH Intact Arterial Blood Glucose Arterial Blood Ionized Calcium Urine WBC (Auto) Urine Creatinine Urine Total Protein ZINA Screen Crossmatch See Detail 03/13/20 03/13/20 03/14/20 14:23 15:38 06:15 WBC Hgb RBC Hct MCV MCH RDW Plt Count Lymph % (Auto) Lymph # Petroleum % (Auto) Petroleum # Eos % (Auto) Lymph # (Auto) Petroleum # (Auto) Eos # (Auto) Seg Neutrophils % Seg Neutrophils # Seg Neuts % (Manual) Lymphocytes % (Manual) Monocytes % (Manual) Nucleated RBC % Seg Neutrophils # Man Lymphocytes # (Manual) Monocytes # (Manual) Eosinophils # (Manual) Basophils # (Manual) ABG pH 7.462 H POC ABG pCO2 POC ABG pO2 75.1 L ABG pO2 ABG HCO3 ABG O2 Saturation ABG Base Excess ABG Hemoglobin 8.9 L ABG Oxyhemoglobin ABG Sodium 135.9 L ABG Glucose Oxyhemoglobin Sodium Potassium Chloride 94.2 L 93.1 L Carbon Dioxide BUN 32 H 45 H Creatinine 3.6 H 4.9 H Glucose POC Glucose Calcium Phosphorus Magnesium Direct Bilirubin AST Alkaline Phosphatase Albumin Troponin T C-Reactive Protein Wnhed-4-Dvibirrpz PEP Interpretation Triglycerides Lipase HDL Cholesterol PTH Intact Arterial Blood Glucose Arterial Blood Ionized Calcium 4.5 L Urine WBC (Auto) Urine Creatinine Urine Total Protein ZINA Screen Crossmatch 03/14/20 03/14/20 03/15/20 06:15 Unknown 04:31 WBC 13.7 H Hgb 7.8 L 7.7 L 8.1 L RBC 3.13 L Hct 22.4 L 23.8 L 24.7 L MCV 76 L MCH 25 L RDW 21.6 H Plt Count 662 H 729 H Lymph % (Auto) Lymph # Petroleum % (Auto) Petroleum # Eos % (Auto) Lymph # (Auto) Petroleum # (Auto) 1.0 H Eos # (Auto) 0.6 H Seg Neutrophils % 71.5 H Seg Neutrophils # 9.8 H Seg Neuts % (Manual) Lymphocytes % (Manual) Monocytes % (Manual) Nucleated RBC % Seg Neutrophils # Man Lymphocytes # (Manual) Monocytes # (Manual) Eosinophils # (Manual) Basophils # (Manual) ABG pH POC ABG pCO2 POC ABG pO2 ABG pO2 ABG HCO3 ABG O2 Saturation ABG Base Excess ABG Hemoglobin ABG Oxyhemoglobin ABG Sodium ABG Glucose Oxyhemoglobin Sodium Potassium Chloride Carbon Dioxide BUN Creatinine Glucose POC Glucose Calcium Phosphorus Magnesium Direct Bilirubin AST Alkaline Phosphatase Albumin Troponin T C-Reactive Protein Uksjv-0-Xebklvhmr PEP Interpretation Triglycerides Lipase HDL Cholesterol PTH Intact Arterial Blood Glucose Arterial Blood Ionized Calcium Urine WBC (Auto) Urine Creatinine Urine Total Protein ZINA Screen Crossmatch 03/15/20 03/15/20 03/16/20 04:31 13:20 00:17 WBC Hgb RBC Hct MCV MCH RDW Plt Count Lymph % (Auto) Lymph # Petroleum % (Auto) Petroleum # Eos % (Auto) Lymph # (Auto) Petroleum # (Auto) Eos # (Auto) Seg Neutrophils % Seg Neutrophils # Seg Neuts % (Manual) Lymphocytes % (Manual) Monocytes % (Manual) Nucleated RBC % Seg Neutrophils # Man Lymphocytes # (Manual) Monocytes # (Manual) Eosinophils # (Manual) Basophils # (Manual) ABG pH POC ABG pCO2 POC ABG pO2 ABG pO2 ABG HCO3 28.9 H ABG O2 Saturation ABG Base Excess 3.9 H ABG Hemoglobin 8.6 L ABG Oxyhemoglobin ABG Sodium ABG Glucose Oxyhemoglobin 94.9 L Sodium Potassium Chloride 95.9 L Carbon Dioxide BUN 60 H Creatinine 5.6 H Glucose POC Glucose 111 H Calcium Phosphorus Magnesium Direct Bilirubin AST Alkaline Phosphatase Albumin Troponin T C-Reactive Protein Xppgc-3-Fijlrtrda PEP Interpretation Triglycerides Lipase HDL Cholesterol PTH Intact Arterial Blood Glucose Arterial Blood Ionized Calcium Urine WBC (Auto) Urine Creatinine Urine Total Protein ZINA Screen Crossmatch 03/16/20 03/16/20 03/17/20 04:52 04:52 04:55 WBC 13.9 H Hgb 8.3 L 9.1 L RBC 3.35 L Hct 25.8 L 28.2 L MCV 77 L MCH 25 L RDW 22.1 H Plt Count 799 H 818 H Lymph % (Auto) 11.1 L Lymph # Petroleum % (Auto) Petroleum # Eos % (Auto) 4.4 H Lymph # (Auto) Petroleum # (Auto) 0.9 H Eos # (Auto) 0.6 H Seg Neutrophils % 77.4 H Seg Neutrophils # 10.8 H Seg Neuts % (Manual) Lymphocytes % (Manual) Monocytes % (Manual) Nucleated RBC % Seg Neutrophils # Man Lymphocytes # (Manual) Monocytes # (Manual) Eosinophils # (Manual) Basophils # (Manual) ABG pH POC ABG pCO2 POC ABG pO2 ABG pO2 ABG HCO3 ABG O2 Saturation ABG Base Excess ABG Hemoglobin ABG Oxyhemoglobin ABG Sodium ABG Glucose Oxyhemoglobin Sodium Potassium Chloride 93.8 L Carbon Dioxide BUN 72 H Creatinine 5.8 H Glucose POC Glucose Calcium Phosphorus Magnesium Direct Bilirubin AST Alkaline Phosphatase Albumin 2.7 L Troponin T C-Reactive Protein Lpwwc-6-Uqvzewycd PEP Interpretation Triglycerides Lipase HDL Cholesterol PTH Intact Arterial Blood Glucose Arterial Blood Ionized Calcium Urine WBC (Auto) Urine Creatinine Urine Total Protein ZINA Screen Crossmatch 03/17/20 04:55 WBC Hgb RBC Hct MCV MCH RDW Plt Count Lymph % (Auto) Lymph # Petroleum % (Auto) Petroleum # Eos % (Auto) Lymph # (Auto) Petroleum # (Auto) Eos # (Auto) Seg Neutrophils % Seg Neutrophils # Seg Neuts % (Manual) Lymphocytes % (Manual) Monocytes % (Manual) Nucleated RBC % Seg Neutrophils # Man Lymphocytes # (Manual) Monocytes # (Manual) Eosinophils # (Manual) Basophils # (Manual) ABG pH POC ABG pCO2 POC ABG pO2 ABG pO2 ABG HCO3 ABG O2 Saturation ABG Base Excess ABG Hemoglobin ABG Oxyhemoglobin ABG Sodium ABG Glucose Oxyhemoglobin Sodium Potassium Chloride 93.5 L Carbon Dioxide BUN 40 H Creatinine 3.8 H Glucose POC Glucose Calcium Phosphorus Magnesium Direct Bilirubin AST Alkaline Phosphatase Albumin Troponin T C-Reactive Protein Nezwv-3-Gnyfghxfy PEP Interpretation Triglycerides Lipase HDL Cholesterol PTH Intact Arterial Blood Glucose Arterial Blood Ionized Calcium Urine WBC (Auto) Urine Creatinine Urine Total Protein ZINA Screen Crossmatch Chest x-ray: report reviewed, image reviewed Additional Studies: CHEST 1 VIEW 03/15/2020 8:54 AM INDICATION / CLINICAL INFORMATION: follow up respiratory failure. COMPARISON: 03/14/2020. FINDINGS: SUPPORT DEVICES: Unchanged. HEART / MEDIASTINUM: Stable. LUNGS / PLEURA: No significant pulmonary or pleural abnormality. No pneumothorax. ADDITIONAL FINDINGS: No significant additional findings. IMPRESSION: 1. No significant change. Allied health notes reviewed: RT
--- NOTE | 2020-03-17 11:39 | Progress Note ---
Assessment and Plan Cultures: Urine culture grew 10-100,000 usual xavier. Blood culture 02/26/2020 no growth 02/29/2020 sputum culture: rare usual xavier 03/06/2020 blood culture: no growth 03/07/2020 sputum culture: Ana Luisa 03/11/2020 ET aspirate: no growth thus far Assessment: 39 years old female with history of hypertension, previous kidney stone, hyperlipidemia and obesity admitted on 02/24/2020 due to a week history of severe epigastric abdominal pain radiated to the right flank and back: #Acute sepsis: Likely secondary to severe pancreatitis and related complications. Remains critically ill. #Acute severe pancreatitis: Unclear etiology. Initial non-contrasted CT showed no evidence of necrosis or pseudocyst or abscess formation. Repeat CT 03/05 with interval worsening of acute pancreatitis without clear evidence of necrosis, however was done without IV contrast due to her renal function. Ongoing fevers likely to due severe pancreatitis and ?related complications #Acute renal failure: now requiring dialysis. Nephrology on board. #Acute respiratory hypoxic failure: re-intubated 03/11/2020, back on the vent. #?Alcohol abuse Recommendations: -Now off meropenem., Continue to monitor - Monitor fever, if more than 100 please obtain blood cultures We will follow Alan Lim MD [facility] ([facility] M: [phone] O: [phone] F: [phone] Subjective Date of service: 03/17/20 Principal diagnosis: HTNsive urgency; Morbid obesity; Ac. pancreatitis; Abdominal pain Interval history: Afebrile, no other acute change today. Objective - Exam Narrative Exam: General appearance: Alert no acute distress intubated Eyes: anicteric sclerae, limited HENT: Atraumatic; oropharynx endotracheal tube in place Lungs: Diminished breath sounds bilaterally CV: RRR Abdomen: Soft, distended, nontender Extremities: no edema, no cyanosis Skin: No rash. Psych: Nonagitated Neuro: Alert follows commands - Constitutional Vitals: Vital Signs Temp Pulse Resp BP Pulse Ox 98.6 F 98 H 18 176/87 94 03/17/20 09:03 03/17/20 09:03 03/17/20 09:03 03/17/20 09:03 03/17/20 09:03 Temperature -Last 24 Hours Temperature 98.6 F Temperature 98.7 F Temperature 98.4 F Temperature 98.6 F Temperature 97.9 F Temperature 98.5 F - Labs CBC & Chem 7: 03/17/20 04:55 03/17/20 04:55 Labs: Abnormal lab results 03/17/20 03/17/20 Range/Units 04:55 04:55 Hgb 9.1 L (10.1-14.3) gm/dl Hct 28.2 L (30.3-42.9) % Plt Count 818 H (140-440) K/mm3 Chloride 93.5 L (98-107) mmol/L BUN 40 H (7-17) mg/dL Creatinine 3.8 H (0.6-1.2) mg/dL
--- NOTE | 2020-03-17 18:04 | Progress Note ---
Assessment and Plan Assessment and plan: --Ac.hypoxic resp. failure /s/p extubated 03/15/2020 Extubated 03/15/2020, on BiPAP and Ventimask Patient is refusing BiPAP. On nasal cannula oxygen Patient was intubated initially 02/29/2020, extubated 03/10/2020 Again went into respiratory failure reintubated 03/11/2020, extubated 03/15/2020 On nasal cannula oxygen, titrate O2 sats to more than 90% --Severe sepsis secondary to pneumonia and pancreatitis; s/p meropenem, completed total 14 days per ID ,follow cultures leukocytosis, tachycardia, tachypnea, fever, infiltrate on chest x-ray. Symptoms significantly improved -- Acute severe pancreatitis Initial non-contrasted CT showed no evidence of necrosis or pseudocyst or abscess formation. Repeat CT 03/05 with interval worsening of acute pancreatitis without clear evidence of necrosis with increased jessica-pancreatic fat stranding and disorganized fluid, Symptoms resolved --JUANIS/worsening renal function/on HD Initiated hemodialysis 03/03/2020. Hemodialysis per schedule, MWF If nephro recommend long-term HD Case management to set up outpatient HD --Severe metabolic encephalopathy/POA/resolved Patient is more alert and awake oriented x3 Back to her baseline -- Hypertensive emergency POA s/p Cardene drip, closely monitor Blood pressures moderate control Continue multiple antihypertensives PRN labetalol --Anemia; hemoglobin 9.1 today No external evidence of bleeding Total 3 units of PRBC transfusion GI evaluated , patient is stable now --Chest pain/positive troponins;NSTEMI 2 Probably nonspecific , patient has acute kidney injury on dialysis continue current med management, follow serial cardiac enzymes, EF 60-65% on ECHO, cardiology evaluated and signed off conservative management -- Bilateral pleural effusions. Compressive atelectasis. Incentive spirometry --Alcohol withdrawal . Chronic alcohol use No new alcohol withdrawal symptoms Patient counseled and advised to quit alcohol intake Patient verbalized understanding --Severe metabolic acidosis; resolved On HD per nephrology --Severe protein calorie malnutrition and hypoalbuminemia Nutrition supplements, nutrition consult and supportive care --Medical noncompliance counseled the importance of adhering to the treatment plan Verbalized understanding -- DVT prophylaxis Patient placed on subcutaneous heparin. --Obesity; BMI 37.9 patient needs weight reduction when medically stable. -- Full code status Follow GI and pulmonary evaluation and recommendations We will closely monitor the patient and adjust the management as needed Patient is stable to be transferred out of ICU to telemetry DC planning per case management Possible discharge in 1 to 2 days if stable 03/15; patient is more alert and awake, remains intubated on vent, wean and extubate as tolerated DC planning per case management 03/16; patient received hemodialysis today stable to be transferred out of ICU to telemetry, DC planning per case management 03/17; DC planning per case management, outpatient HD placement if nephrology recommend long-term hemodialysis Possible discharge in 1 to 2 days if stable History Interval history: I have seen and examined the patient in her room this afternoon Patient's chart and medications reviewed Patient's feeling better, anxious to go home Patient is on hemodialysis per schedule Denies any chest pain or shortness of breath Saturating well on room air Vital signs noted Hospitalist Physical - Constitutional Vitals: Temp Pulse Resp BP Pulse Ox 98.1 F 94 H 18 181/103 96 03/17/20 16:14 03/17/20 16:23 03/17/20 16:14 03/17/20 16:14 03/17/20 16:14 General appearance: Present: no acute distress, well-nourished, obese, other (Intubated) - EENT Eyes: Present: PERRL, EOM intact - Neck Neck: Present: supple, normal ROM - Respiratory Respiratory effort: normal Respiratory: bilateral: diminished, negative: rales, rhonchi, wheezing - Cardiovascular Rhythm: regular Heart Sounds: Present: S1 & S2 - Extremities Extremities: no ischemia, No edema - Abdominal General gastrointestinal: soft, non-tender, non-distended, normal bowel sounds - Integumentary Integumentary: Present: clear, warm - Psychiatric Psychiatric: appropriate mood/affect, cooperative - Neurologic Neurologic: CNII-XII intact, moves all extremities HEART Score - HEART Score Troponin: Troponin T 0.085 ng/mL (0.00-0.029) H 03/11/20 14:31 Results - Labs CBC & Chem 7: 03/17/20 04:55 03/17/20 04:55 Labs: Laboratory Last Values WBC 13.9 K/mm3 (4.5-11.0) H 03/16/20 04:52 RBC 3.35 M/mm3 (3.65-5.03) L 03/16/20 04:52 Hgb 9.1 gm/dl (10.1-14.3) L 03/17/20 04:55 Hct 28.2 % (30.3-42.9) L 03/17/20 04:55 MCV 77 fl (79-97) L 03/16/20 04:52 MCH 25 pg (28-32) L 03/16/20 04:52 MCHC 32 % (30-34) 03/16/20 04:52 RDW 22.1 % (13.2-15.2) H 03/16/20 04:52 Plt Count 818 K/mm3 (140-440) H 03/17/20 04:55 Lymph % (Auto) 11.1 % (13.4-35.0) L 03/16/20 04:52 [place] % (Auto) 6.3 % (0.0-7.3) 03/16/20 04:52 Eos % (Auto) 4.4 % (0.0-4.3) H 03/16/20 04:52 Baso % (Auto) 0.8 % (0.0-1.8) 03/16/20 04:52 Lymph # (Auto) 1.5 K/mm3 (1.2-5.4) 03/16/20 04:52 Marion # (Auto) 0.9 K/mm3 (0.0-0.8) H 03/16/20 04:52 Eos # (Auto) 0.6 K/mm3 (0.0-0.4) H 03/16/20 04:52 Baso # (Auto) 0.1 K/mm3 (0.0-0.1) 03/16/20 04:52 Add Manual Diff Complete 03/11/20 04:32 Total Counted 100 03/11/20 04:32 Seg Neutrophils % 77.4 % (40.0-70.0) H 03/16/20 04:52 Seg Neuts % (Manual) 81.0 % (40.0-70.0) H 03/11/20 04:32 Band Neutrophils % 1.0 % 03/11/20 04:32 Lymphocytes % (Manual) 8.0 % (13.4-35.0) L 03/11/20 04:32 Reactive Lymphs % (Man) 0 % 03/11/20 04:32 Monocytes % (Manual) 8.0 % (0.0-7.3) H 03/11/20 04:32 Eosinophils % (Manual) 1.0 % (0.0-4.3) 03/11/20 04:32 Basophils % (Manual) 1.0 % (0.0-1.8) 03/11/20 04:32 Metamyelocytes % 0 % 03/11/20 04:32 Myelocytes % 0 % 03/11/20 04:32 Promyelocytes % 0 % 03/11/20 04:32 Blast Cells % 0 % 03/11/20 04:32 Nucleated RBC % Not Reportable 03/11/20 04:32 Seg Neutrophils # 10.8 K/mm3 (1.8-7.7) H 03/16/20 04:52 Seg Neutrophils # Man 18.1 K/mm3 (1.8-7.7) H 03/11/20 04:32 Band Neutrophils # 0.2 K/mm3 03/11/20 04:32 Lymphocytes # (Manual) 1.8 K/mm3 (1.2-5.4) 03/11/20 04:32 Abs React Lymphs (Man) 0.0 K/mm3 03/11/20 04:32 Monocytes # (Manual) 1.8 K/mm3 (0.0-0.8) H 03/11/20 04:32 Eosinophils # (Manual) 0.2 K/mm3 (0.0-0.4) 03/11/20 04:32 Basophils # (Manual) 0.2 K/mm3 (0.0-0.1) H 03/11/20 04:32 Metamyelocytes # 0.0 K/mm3 03/11/20 04:32 Myelocytes # 0.0 K/mm3 03/11/20 04:32 Promyelocytes # 0.0 K/mm3 03/11/20 04:32 Blast Cells # 0.0 K/mm3 03/11/20 04:32 WBC Morphology Not Reportable 03/11/20 04:32 Hypersegmented Neuts Not Reportable 03/11/20 04:32 Hyposegmented Neuts Not Reportable 03/11/20 04:32 Hypogranular Neuts Not Reportable 03/11/20 04:32 Smudge Cells Not Reportable 03/11/20 04:32 Toxic Granulation Not Reportable 03/11/20 04:32 Toxic Vacuolation Not Reportable 03/11/20 04:32 Dohle Bodies Not Reportable 03/11/20 04:32 Pelger-Huet Anomaly Not Reportable 03/11/20 04:32 Maia Rods Not Reportable 03/11/20 04:32 Platelet Estimate Consistent w auto 03/11/20 04:32 Clumped Platelets Not Reportable 03/11/20 04:32 Plt Clumps, EDTA Not Reportable 03/11/20 04:32 Large Platelets Not Reportable 03/11/20 04:32 Giant Platelets Not Reportable 03/11/20 04:32 Platelet Satelliting Not Reportable 03/11/20 04:32 Plt Morphology Comment Not Reportable 03/11/20 04:32 RBC Morphology Not Reportable 03/11/20 04:32 Dimorphic RBCs Not Reportable 03/11/20 04:32 Polychromasia Not Reportable 03/11/20 04:32 Hypochromasia 1+ 03/11/20 04:32 Poikilocytosis Not Reportable 03/11/20 04:32 Anisocytosis 1+ 03/11/20 04:32 Microcytosis Not Reportable 03/11/20 04:32 Macrocytosis Not Reportable 03/11/20 04:32 Spherocytes Not Reportable 03/11/20 04:32 Pappenheimer Bodies Not Reportable 03/11/20 04:32 Sickle Cells Not Reportable 03/11/20 04:32 Target Cells Not Reportable 03/11/20 04:32 Tear Drop Cells Rare 03/11/20 04:32 Ovalocytes Few 03/11/20 04:32 Helmet Cells Not Reportable 03/11/20 04:32 [place] Bodies Not Reportable 03/11/20 04:32 [place] Rings Not Reportable 03/11/20 04:32 [place] Cells Not Reportable 03/11/20 04:32 Bite Cells Not Reportable 03/11/20 04:32 Crenated Cell Not Reportable 03/11/20 04:32 Elliptocytes Not Reportable 03/11/20 04:32 Acanthocytes (Spur) Not Reportable 03/11/20 04:32 Rouleaux Not Reportable 03/11/20 04:32 Hemoglobin C Crystals Not Reportable 03/11/20 04:32 Schistocytes Not Reportable 03/11/20 04:32 Malaria parasites Not Reportable 03/11/20 04:32 Edgardo Bodies Not Reportable 03/11/20 04:32 Hem Pathologist Commnt No 03/11/20 04:32 PT 14.1 Sec. (12.2-14.9) 03/11/20 07:31 INR 1.07 (0.87-1.13) 03/11/20 07:31 APTT 32.0 Sec. (24.2-36.6) 03/11/20 07:31 ABG pH 7.420 pH Units (7.350-7.450) 03/15/20 13:20 POC ABG pCO2 40.5 mmHg (32.0-48.0) 03/13/20 14:23 ABG pCO2 45.5 mm Hg 03/15/20 13:20 POC ABG pO2 75.1 mmHg (83-108) L 03/13/20 14:23 ABG pO2 85.8 mm Hg (80.0-90.0) 03/15/20 13:20 POC ABG HCO3 28.3 03/13/20 14:23 ABG HCO3 28.9 mmol/L (20.0-26.0) H 03/15/20 13:20 ABG O2 Saturation 97.1 % (95.0-99.0) 03/15/20 13:20 ABG O2 Content 11.6 (0.0-44) 03/15/20 13:20 POC ABG Base Excess 4.2 03/13/20 14:23 ABG Base Excess 3.9 mmol/L (-2.0-3.0) H 03/15/20 13:20 ABG Hemoglobin 8.6 gm/dl (12.0-16.0) L 03/15/20 13:20 ABG Oxyhemoglobin 90.5 (94-98) L 03/06/20 04:41 ABG Carboxyhemoglobin 1.7 % (0.0-5.0) 03/15/20 13:20 ABG Methemoglobin 0.5 % (0.0-1.5) 03/15/20 13:20 ABG Sodium 135.9 mmol/L (136.0-145.0) L 03/13/20 14:23 ABG Potassium 3.8 mmol/L (3.40-4.50) 03/13/20 14:23 ABG Chloride 98.0 mmol/L (98-107) 03/13/20 14:23 ABG Glucose 89 mg/dL (65-95) 03/13/20 14:23 Oxyhemoglobin 94.9 % (95.0-99.0) L 03/15/20 13:20 Carboxyhemoglobin 1 (0.5-1.5) 03/06/20 04:41 FiO2 30 % 03/15/20 13:20 Sodium 137 mmol/L (137-145) 03/17/20 04:55 Potassium 4.4 mmol/L (3.6-5.0) 03/17/20 04:55 Chloride 93.5 mmol/L (98-107) L 03/17/20 04:55 Carbon Dioxide 27 mmol/L (22-30) 03/17/20 04:55 Anion Gap 21 mmol/L 03/17/20 04:55 BUN 40 mg/dL (7-17) H 03/17/20 04:55 Creatinine 3.8 mg/dL (0.6-1.2) H 03/17/20 04:55 Estimated GFR 16 ml/min 03/17/20 04:55 BUN/Creatinine Ratio 11 % 03/17/20 04:55 Glucose 91 mg/dL (65-100) 03/17/20 04:55 POC Glucose 92 (70-105) 03/16/20 12:31 Lactic Acid 0.90 mmol/L (0.7-2.0) 02/27/20 19:33 Calcium 9.6 mg/dL (8.4-10.2) 03/17/20 04:55 Phosphorus 6.10 mg/dL (2.5-4.5) H 03/01/20 04:37 Magnesium 2.00 mg/dL (1.7-2.3) 03/07/20 05:03 Total Bilirubin 0.30 mg/dL (0.1-1.2) 03/16/20 04:52 Direct Bilirubin 0.6 mg/dL (0-0.2) H 03/05/20 06:00 Indirect Bilirubin 0.3 mg/dL 03/05/20 06:00 AST 30 units/L (5-40) 03/16/20 04:52 ALT 14 units/L (7-56) 03/16/20 04:52 Alkaline Phosphatase 75 units/L (35-129) 03/16/20 04:52 Troponin T 0.085 ng/mL (0.00-0.029) H 03/11/20 14:31 C-Reactive Protein 36.50 mg/dL (0.00-1.30) H 03/01/20 11:06 Serum Total Protein 6.3 g/dL (6.1-8.1) 02/26/20 04:39 Total Protein 7.6 g/dL (6.3-8.2) 03/16/20 04:52 Albumin 2.7 g/dL (3.9-5) L 03/16/20 04:52 Albumin/Globulin Ratio 0.6 % 03/16/20 04:52 Rxzye-5-Rlscntadg 0.7 g/dL (0.2-0.3) H 02/26/20 04:39 Uipap-6-Mwfegyxak 0.8 g/dL (0.5-0.9) 02/26/20 04:39 Beta Globulins 0.4 g/dL (0.2-0.5) 02/26/20 04:39 Gamma Globulins 1.2 g/dL (0.8-1.7) 02/26/20 04:39 Abnorm Protein Band 1 see below 02/26/20 04:39 PEP Interpretation see below H 02/26/20 04:39 Triglycerides 247 mg/dL (2-149) H 03/11/20 14:31 Cholesterol 158 mg/dL (50-199) 03/11/20 14:31 LDL Cholesterol Direct 80 mg/dL (50-130) 03/11/20 14:31 HDL Cholesterol 28 mg/dL (40-59) L 03/11/20 14:31 Cholesterol/HDL Ratio 5.64 % 03/11/20 14:31 Lipase 72 units/L (13-60) H 03/04/20 19:00 HCG, Qual Negative (Negative) 02/24/20 02:53 PTH Intact 911.3 pg/mL (15-65) H 02/26/20 08:15 Arterial Blood Glucose 89 mg/dL (65-95) 03/13/20 14:23 Arterial Blood Ionized Calcium 4.5 mg/dL (4.6-5.3) L 03/13/20 14:23 Urine Color Yellow (Yellow) 02/24/20 Unknown Urine Turbidity Clear (Clear) 02/24/20 Unknown Urine pH 6.0 (5.0-7.0) 02/24/20 Unknown Ur Specific [place] 1.020 (1.003-1.030) 02/24/20 Unknown Urine Protein >500 mg/dL (Negative) 02/24/20 Unknown Urine Glucose (UA) 50 mg/dL (Negative) 02/24/20 Unknown Urine Ketones Neg mg/dL (Negative) 02/24/20 Unknown Urine Blood Lg (Negative) 02/24/20 Unknown Urine Nitrite Neg (Negative) 02/24/20 Unknown Urine Bilirubin Neg (Negative) 02/24/20 Unknown Urine Urobilinogen < 2.0 mg/dL (<2.0) 02/24/20 Unknown Ur Leukocyte Esterase Neg (Negative) 02/24/20 Unknown Urine WBC (Auto) 11.0 /HPF (0.0-6.0) H 02/24/20 Unknown Urine RBC (Auto) 149.0 /HPF (0.0-6.0) 02/24/20 Unknown U Epithel Cells (Auto) 5.0 /HPF (0-13.0) 02/24/20 Unknown Urine Bacteria (Auto) 1+ /HPF (Negative) 02/24/20 Unknown Urine Mucus Few /HPF 02/24/20 Unknown Urine Creatinine 161.0 mg/dL (0.1-20.0) H 02/25/20 22:55 Protein/Creatinin Ratio 0.93 02/25/20 22:55 Urine Total Protein 150 mg/dL (5-11.8) H 02/25/20 22:55 ZINA Screen Positive (Negative) H 02/26/20 04:39 Proteinase 3 (PR3) Ab <1.0 AI (<1.0) 02/26/20 04:39 Myeloperoxidase Ab <1.0 AI (<1.0) 02/26/20 04:39 Double Strand DNA Ab See scanned result 03/06/20 14:46 Complement C3 153 mg/dL (83-193) 02/26/20 04:39 Complement C4 35 mg/dL (15-57) 02/26/20 04:39 Coronavirus (PCR) Negative (Negative) 03/09/20 09:12 Hepatitis A IgM Ab Non-reactive (NonReactive) 03/03/20 12:34 Hep Bs Antigen Non-reactive (Negative) 03/03/20 12:34 Hep B Core IgM Ab Non-reactive (NonReactive) 03/03/20 12:34 Hepatitis C Antibody Non-reactive (NonReactive) 03/03/20 12:34 Blood Type AB POSITIVE 03/13/20 08:45 Antibody Screen Negative 03/13/20 08:45 Crossmatch See Detail 03/13/20 08:45 - Diagnostic Impressions Diagnostic Impressions: Echocardiogram 02/26/20 09:11 Transthoracic Echocardiogram Indication: Cardiomegaly BP: 149/92 HR: 122 Conclusions *Global left ventricular systolic function is normal. *The estimated ejection fraction is 60-65%. *Moderate to severe concentric left ventricular hypertrophy is observed. *The left atrium is mild to moderately dilated. *The aortic valve leaflets are moderately thickened. *A mean gradient of 22.39 mmHg across the outflow tract is likely not due to but hyperdynamic flow and LVH. *There is trace tricuspid regurgitation. Findings Left Ventricle: The left ventricular chamber size is normal. Moderate to severe concentric left ventricular hypertrophy is observed. Global left ventricular systolic function is normal. The estimated ejection fraction is 60-65%. Left Atrium: The left atrium is mild to moderately dilated. Right Ventricle: The right ventricular cavity size is normal. The right ventricular global systolic function is normal. Right Atrium: The right atrial cavity size is normal. Aortic Valve: The aortic valve leaflets are moderately thickened. There is no evidence of aortic regurgitation. The mean gradient of the aortic valve is 22.39 mmHg. Mitral Valve: The mitral valve leaflets are mildly thickened. There is trace of mitral regurgitation. There is no evidence of mitral stenosis. Tricuspid Valve: There is trace tricuspid regurgitation. No pulmonary hypertension is noted. Pulmonic Valve: There is trace pulmonic regurgitation. Pericardium: There is no pericardial effusion. Aorta: There is no dilatation of the ascending aorta. There is no dilatation of the aortic root. Venous: The inferior vena cava appears normal in size. Measurements Chambers 2D Name Value Normal Range IVSd (2D) 1.8 cm (0.6 - 1.1) LVPWd (2D) 1.74 cm (0.6 - 1.1) LVIDd (2D) 4.57 cm (3.7 - 5.6) LVIDs (2D) 2.73 cm (2 - 3.8) LV FS (2D) 40.27 % - EF Teichholz (2D) 71.04 % - Ao root diameter (2D) 2.79 cm (2 - 3.7) Volumes/Mass Name Value Normal Range LA ESV SP 4CH (A/L) 54.18 ml - LA ESV SP 2CH (A/L) 61.84 ml - LA ESV BP (A/L) 58.1 ml - LA ESV BP (A/L) index 30.74 ml/m2 - LA ESV SP 4CH (MOD) 52.89 ml - LA ESV SP 2CH (MOD) 60.65 ml - LA ESV BP (MOD) 56.77 ml - LA ESV BP (MOD) index 30.04 ml/m2 - LV EDV SP 4CH (MOD) 164.2 ml - LV ESV SP 4CH (MOD) 58.04 ml - EF SP 4CH (MOD) 64.65 % - Diastolic/Systolic Function Name Value Normal Range MV E-wave Vmax 1.38 m/sec - MV deceleration time 92.78 msec - MV A-wave Vmax 1.44 m/sec - MV E:A ratio 0.95 ratio - Aortic Valve Name Value Normal Range AV Vmax 3.08 m/sec - AV VTI 36.74 cm - AV peak gradient 37.98 mmHg - AV mean gradient 22.39 mmHg - LVOT diameter 2.01 cm - LVOT Vmax 2.45 m/sec - LVOT VTI 29.85 cm - LVOT peak gradient 24.04 mmHg - LVOT mean gradient 11.11 mmHg - SV LVOT 94.73 ml - JADA (continuity Vmax) 2.52 cm2 - JADA (continuity VTI) 2.58 cm2 - Ascending Ao 2.64 cm - Mitral Valve Name Value Normal Range MV PHT 37.88 msec - MVA (PHT) 5.81 cm2 - Tricuspid Valve Name Value Normal Range IVC diameter 1.93 cm (1.2 - 2.3) Pulmonic Valve/Qp:Qs Name Value Normal Range PV Vmax 2.83 m/sec - PV VTI 45.88 cm - PV peak gradient 32.06 mmHg - PV mean gradient 16.11 mmHg - CO end-diastolic Vmax 0.81 m/sec - RVOT Vmax 1.82 m/sec - RVOT VTI 25.12 cm - RVOT peak gradient 13.3 mmHg - Franks/IV: Voiding Method Incontinent IV Catheter Type [Right VAS Cath Internal Jugular] IV Catheter Type [Left Upper INT / Saline Lock arm] IV Catheter Type [Right Upper INT / Saline Lock arm] IV Catheter Type [Right INT / Saline Lock Forearm] IV Catheter Type [Right Wrist] Peripheral IV IV Catheter Type [Right Peripheral IV Antecubital] Active Medications - Current Medications Current Medications: Generic Name Dose Route Start Last Admin Trade Name Freq PRN Reason Stop Dose Admin Acetaminophen 650 mg 02/26/20 16:23 03/14/20 22:03 Tylenol PO 650 mg Q4H PRN Administration Pain, Mild (1-3)/ Temp >100. Albuterol 2.5 mg 02/27/20 17:55 Proventil IH Q4HRT PRN Shortness Of Breath Amlodipine Besylate 10 mg 02/28/20 10:00 03/17/20 10:45 Amlodipine PO 10 mg QDAY INDU Administration Aspirin 325 mg 03/15/20 11:00 03/17/20 10:45 Aspirin PO 325 mg QDAY INDU Administration Dextrose 50 ml 02/29/20 08:00 03/01/20 00:20 D50w (25gm) Syringe IV 10 ml Q30MIN PRN Administration HYPOGLYCEMIA Protocol Epoetin Prosper 10,000 unit 03/12/20 10:00 03/16/20 11:58 Procrit IV 10,000 unit NIKOLAY PRN Administration hemodialysis Heparin Sodium (Porcine) 5,000 unit 03/11/20 14:00 03/17/20 14:50 Heparin SUB-Q 5,000 unit Q8HR INDU Administration Hydralazine HCl 25 mg 03/04/20 14:00 03/17/20 14:50 Apresoline PO 25 mg Q8HR INDU Administration Hydrophilic Ointment 1 applic 03/11/20 06:01 Vaseline Lip Therapy TP Q2HR PRN Dry Lips Sodium Chloride 100 mls @ 999 mls/hr 03/08/20 17:05 Nacl 0.9% IV NIKOLAY PRN Hypotension Labetalol HCl 10 mg 02/28/20 09:00 03/11/20 03:04 Labetalol IV 10 mg Q4H PRN Administration Hypertension Metoprolol Tartrate 25 mg 02/28/20 10:00 03/17/20 10:45 Metoprolol PO 25 mg BID INDU Administration Morphine Sulfate 2 mg 03/11/20 05:13 03/16/20 01:46 Morphine IV 2 mg Q4H PRN Administration Pain, Moderate (4-6) Multi-Ingred Cream/Lotion/Oil/Oint 1 applic 03/11/20 06:01 Artificial Tears Ophth Oint OU Q4HR PRN Dry Eye(s) Nitroglycerin 0.4 mg 03/11/20 05:14 Nitrostat SL .Q5MIN PRN Chest Pain Ondansetron HCl 4 mg 02/24/20 06:45 02/25/20 23:33 Zofran IV 4 mg Q8H PRN Administration Nausea And Vomiting Pantoprazole Sodium 40 mg 03/16/20 11:00 03/17/20 10:45 Protonix PO 40 mg QDAC INDU Administration Quetiapine Fumarate 100 mg 03/16/20 22:00 03/16/20 21:44 Seroquel PO 100 mg QHS INDU Administration Sodium Chloride 10 ml 02/24/20 10:00 03/17/20 10:45 Sodium Chloride Flush Syringe 10 Ml IV 10 ml BID INDU Administration Sodium Chloride 10 ml 02/24/20 06:45 03/10/20 09:06 Sodium Chloride Flush Syringe 10 Ml IV 10 ml PRN PRN Administration LINE FLUSH Nutrition/Malnutrition Assess - Dietary Evaluation Nutrition/Malnutrition Findings: Nutrition Notes Start: 02/24/20 13:42 Freq: Status: Active Protocol: Document 03/17/20 14:30 BRANDI (Rec: 03/17/20 14:35 BRANDI [id number]) Co-Sign 03/17/20 14:30 LM Nutrition Notes Initial or Follow up Reassessment Current Diagnosis Acute Kidney Injury,Sepsis, Hypertension,Respiratory Failure,Hyperlipidemia Other Pertinent Diagnosis Acute pancreatitis, HD Current Diet Mechanical Soft Labs/Tests Reviewed Pertinent Medications Reviewed Height 5 ft 1 in Weight 91 kg Floris Body Weight (kg) 47.72 BMI 37.9 Weight Status Obese Subjective/Other Information Diet advancement yesterday. Pt only ate a few bites of breakfast. Pt agreed to Ensure Enlive Vanilla BID. Pt had no nutrition questions. Percent of energy/protein needs met: 0%/0% Burn Absent Trauma Absent GI Symptoms None Current % PO Negligible Minimum of two criteria No Fluid Accumulation Moderate to Severe (severe) #2 Nutrition Diagnosis Inadequate oral intake As Evidenced by Signs and Symptoms pt took a few bites of meal this AM. Diagnosis Progress(for reassessment Continues documentation) #1 Nutrition Diagnosis Food and nutrition-related knowledge deficit As Evidenced by Signs and Symptoms Pt had no nutritional concerns . Diagnosis Progress(for reassessment Resolved documentation) Is patient on ventilator? Yes Is Patient Ambulatory and/or Out of Bed No REE-([facility]-confined to bed) 1823.604 Kcal/Kg value to use for calculation 16 Approximate Energy Requirements Using 1456 kcal/Kg Calculation Used for Recommendations Kcal/kg Additional Notes Pro: 83-104g (1.2-1.5g/kg AdBW 69kg) Fluid: 1ml/kcal Nutrition Intervention Change Diet Order: Diet advancement as able, once able, recommend Cardiac diet. Add Supplement/Snack (indicate name/kcal Ensure Enlive Vanilla BID /protein ) Provides kCal: 700 Provides Protein (gm) 40 Goal #1 Meet at least 75% of energy and protein needs Anticipated Discharge Needs: Recommend heart-heathly diet Follow-Up By: 03/19/20 Additional Comments F/u intakes
[2020-03-17] MEDS: QUEtiapine 100 MG TAB PO SCH (23:28)
[2020-03-17] MEDS: MEROPENEM/NS 1 GRAM/100 ML 1 GRAM/100 ML BAG IV SCH (23:32)
[2020-03-18] MEDS: hydrALAZINE 25 MG TAB PO SCH ×3 (06:37→21:50)
[2020-03-18] MEDS: HEPARIN 5,000 UNIT/1 ML VIAL SUB-Q SCH ×3 (06:37→21:50)
--- NOTE | 2020-03-18 10:02 | Progress Note ---
Assessment and Plan Assessment * Acute kidney injury attributed to prerenal azotemia/ATN related to pancreatitis vs NSAID induced nephropathy vs PPI --Serologies: ANCA, C3, C4 - negative; ZINA positive * Acute hypoxic respiratory failure * Chest pain --Elevated troponin * Metabolic acidosis * Acute severe pancreatitis * Fever * Accelerated hypertension - resolved * Anemia Plan: * Continue HD MWF schedule for now- UF as tolerated * Monitor SCr trend and UOP for evidence of recovery - Uncertain re: renal prognosis. Patient reports 9 year hx of hypertension, untreated at times. She reports that she was not under the consistent care of a healthcare provider. * Cardiology recommendations reviewed - conservative cardiac management for now * GI recommendations reviewed * Continue antiHTN medications * Abx per ID * Hold ACEi for now * Epogen TIW prn * Dose medications for renal function * Avoid potential nephrotoxins Subjective Date of service: 03/18/20 Principal diagnosis: HTNsive urgency; Morbid obesity; Ac. pancreatitis; Abdominal pain Interval history: resting in bed today Objective - Exam Narrative Exam: General appearance: well-developed, well-nourished EENT: ATNC Respiratory: Present: Clear to Ascultation Cardiology: regular, S1S2 Gastrointestinal: normal, no tenderness, distended Integumentary: no rash, warm and dry Musculoskeletal: other (no edema) Psychiatric: cooperative - Vital Signs Vital signs: Vital Signs - 12hr 03/17/20 03/17/20 03/17/20 23:00 23:27 23:28 Temperature 98.8 F Pulse Rate 104 H 102 H 102 H Pulse Rate [ Left Dorsalis Pedis] Pulse Rate [ Right Dorsalis Pedis] Pulse Rate [ Right Radial] Respiratory 16 Rate Blood Pressure 198/106 168/87 168/87 Blood Pressure [Left] O2 Sat by Pulse 96 Oximetry 03/17/20 03/18/20 03/18/20 23:45 00:00 04:00 Temperature 98.5 F Pulse Rate 104 H 96 H 101 H Pulse Rate [ Left Dorsalis Pedis] Pulse Rate [ Right Dorsalis Pedis] Pulse Rate [ Right Radial] Respiratory 14 18 Rate Blood Pressure Blood Pressure 187/98 [Left] O2 Sat by Pulse 94 91 Oximetry 03/18/20 03/18/20 03/18/20 04:16 06:37 08:00 Temperature 98.5 F Pulse Rate 101 H 101 H Pulse Rate [ 101 H Left Dorsalis Pedis] Pulse Rate [ 101 H Right Dorsalis Pedis] Pulse Rate [ 101 H Right Radial] Respiratory 18 19 Rate Blood Pressure 187/98 187/98 Blood Pressure [Left] O2 Sat by Pulse 91 98 Oximetry 03/18/20 03/18/20 08:10 08:24 Temperature 98.0 F Pulse Rate 100 H 101 H Pulse Rate [ Left Dorsalis Pedis] Pulse Rate [ Right Dorsalis Pedis] Pulse Rate [ Right Radial] Respiratory 18 Rate Blood Pressure 174/88 Blood Pressure [Left] O2 Sat by Pulse 95 Oximetry - Lab 03/17/20 04:55 03/17/20 04:55 Most recent lab results ABG pH 7.420 pH Units (7.350-7.450) 03/15/20 13:20 ABG pCO2 45.5 mm Hg 03/15/20 13:20 ABG pO2 85.8 mm Hg (80.0-90.0) 03/15/20 13:20 ABG HCO3 28.9 mmol/L (20.0-26.0) H 03/15/20 13:20 ABG O2 Saturation 97.1 % (95.0-99.0) 03/15/20 13:20 Calcium 9.6 mg/dL (8.4-10.2) 03/17/20 04:55 Phosphorus 6.10 mg/dL (2.5-4.5) H 03/01/20 04:37 Magnesium 2.00 mg/dL (1.7-2.3) 03/07/20 05:03 Urine Creatinine 161.0 mg/dL (0.1-20.0) H 02/25/20 22:55 Urine Total Protein 150 mg/dL (5-11.8) H 02/25/20 22:55 Medications & Allergies - Medications Allergies/Adverse Reactions: Allergies No Known Allergies Allergy (Unverified 09/05/19 10:15) Home Medications: Home Medications Medication Instructions Recorded Confirmed Last Taken Type Amlodipine Besylate [Norvasc] 10 mg PO DAILY 09/05/19 02/24/20 09/04/19 History Furosemide [Lasix] 20 mg PO QDAY #30 tablet 09/05/19 02/24/20 Unknown Rx Lisinopril [Zestril] 5 mg PO DAILY #30 tablet 09/05/19 02/24/20 Unknown Rx Metoprolol [Lopressor TAB] 25 mg PO BID #60 tablet 09/05/19 02/24/20 Unknown Rx Active Medications: Generic Name Dose Route Start Last Admin Trade Name Freq PRN Reason Stop Dose Admin Acetaminophen 650 mg 02/26/20 16:23 03/14/20 22:03 Tylenol PO 650 mg Q4H PRN Administration Pain, Mild (1-3)/ Temp >100. Albuterol 2.5 mg 02/27/20 17:55 Proventil IH Q4HRT PRN Shortness Of Breath Amlodipine Besylate 10 mg 02/28/20 10:00 03/17/20 10:45 Amlodipine PO 10 mg QDAY INDU Administration Aspirin 325 mg 03/15/20 11:00 03/17/20 10:45 Aspirin PO 325 mg QDAY INDU Administration Dextrose 50 ml 02/29/20 08:00 03/01/20 00:20 D50w (25gm) Syringe IV 10 ml Q30MIN PRN Administration HYPOGLYCEMIA Protocol Epoetin Prosper 10,000 unit 03/12/20 10:00 03/16/20 11:58 Procrit IV 10,000 unit NIKOLAY PRN Administration hemodialysis Heparin Sodium (Porcine) 5,000 unit 03/11/20 14:00 03/18/20 06:37 Heparin SUB-Q 5,000 unit Q8HR INDU Administration Hydralazine HCl 25 mg 03/04/20 14:00 03/18/20 06:37 Apresoline PO 25 mg Q8HR INDU Administration Hydrophilic Ointment 1 applic 03/11/20 06:01 Vaseline Lip Therapy TP Q2HR PRN Dry Lips Sodium Chloride 100 mls @ 999 mls/hr 03/08/20 17:05 Nacl 0.9% IV NIKOLAY PRN Hypotension Labetalol HCl 10 mg 02/28/20 09:00 03/11/20 03:04 Labetalol IV 10 mg Q4H PRN Administration Hypertension Metoprolol Tartrate 25 mg 02/28/20 10:00 03/17/20 23:28 Metoprolol PO 25 mg BID INDU Administration Morphine Sulfate 2 mg 03/11/20 05:13 03/16/20 01:46 Morphine IV 2 mg Q4H PRN Administration Pain, Moderate (4-6) Multi-Ingred Cream/Lotion/Oil/Oint 1 applic 03/11/20 06:01 Artificial Tears Ophth Oint OU Q4HR PRN Dry Eye(s) Nitroglycerin 0.4 mg 03/11/20 05:14 Nitrostat SL .Q5MIN PRN Chest Pain Ondansetron HCl 4 mg 02/24/20 06:45 02/25/20 23:33 Zofran IV 4 mg Q8H PRN Administration Nausea And Vomiting Pantoprazole Sodium 40 mg 03/16/20 11:00 03/17/20 10:45 Protonix PO 40 mg QDAC INDU Administration Quetiapine Fumarate 100 mg 03/16/20 22:00 03/17/20 23:28 Seroquel PO 100 mg QHS INDU Administration Sodium Chloride 10 ml 02/24/20 10:00 03/17/20 23:29 Sodium Chloride Flush Syringe 10 Ml IV 10 ml BID INDU Administration Sodium Chloride 10 ml 02/24/20 06:45 03/10/20 09:06 Sodium Chloride Flush Syringe 10 Ml IV 10 ml PRN PRN Administration LINE FLUSH
[2020-03-18 11:05] LABS: Calcium 9.8 mg/dL (8.4-10.2)
--- NOTE | 2020-03-18 11:32 | Progress Note ---
Assessment and Plan Assessment and plan: --Ac.hypoxic resp. failure /s/p extubated 03/15/2020 Extubated 03/15/2020, on BiPAP and Ventimask Patient is refusing BiPAP. On nasal cannula oxygen Patient was intubated initially 02/29/2020, extubated 03/10/2020 Again went into respiratory failure reintubated 03/11/2020, extubated 03/15/2020 On nasal cannula oxygen, titrate O2 sats to more than 90% --Severe sepsis secondary to pneumonia and pancreatitis; s/p meropenem, completed total 14 days per ID ,follow cultures leukocytosis, tachycardia, tachypnea, fever, infiltrate on chest x-ray. Symptoms significantly improved -- Acute severe pancreatitis Initial non-contrasted CT showed no evidence of necrosis or pseudocyst or abscess formation. Repeat CT 03/05 with interval worsening of acute pancreatitis without clear evidence of necrosis with increased jessica-pancreatic fat stranding and disorganized fluid, Symptoms resolved --JUANIS/worsening renal function/on HD Initiated hemodialysis 03/03/2020. Hemodialysis per schedule, MWF If nephro recommend long-term HD Case management to set up outpatient HD --Severe metabolic encephalopathy/POA/resolved Patient is more alert and awake oriented x3 Back to her baseline -- Hypertensive emergency POA s/p Cardene drip, closely monitor Blood pressures moderate control Continue multiple antihypertensives PRN labetalol --Anemia; hemoglobin 9.1 today No external evidence of bleeding Total 3 units of PRBC transfusion GI evaluated , patient is stable now --Chest pain/positive troponins;NSTEMI 2 Probably nonspecific , patient has acute kidney injury on dialysis continue current med management, follow serial cardiac enzymes, EF 60-65% on ECHO, cardiology evaluated and signed off conservative management -- Bilateral pleural effusions. Compressive atelectasis. Incentive spirometry --Alcohol withdrawal . Chronic alcohol use No new alcohol withdrawal symptoms Patient counseled and advised to quit alcohol intake Patient verbalized understanding --Severe metabolic acidosis; resolved On HD per nephrology --Severe protein calorie malnutrition and hypoalbuminemia Nutrition supplements, nutrition consult and supportive care --Medical noncompliance counseled the importance of adhering to the treatment plan Verbalized understanding -- DVT prophylaxis Patient placed on subcutaneous heparin. --Obesity; BMI 37.9 patient needs weight reduction when medically stable. -- Full code status Follow GI and pulmonary evaluation and recommendations We will closely monitor the patient and adjust the management as needed Patient is stable to be transferred out of ICU to telemetry DC planning per case management Possible discharge in 1 to 2 days if stable 03/15; patient is more alert and awake, remains intubated on vent, wean and extubate as tolerated DC planning per case management 03/16; patient received hemodialysis today stable to be transferred out of ICU to telemetry, DC planning per case management 03/17; DC planning per case management, outpatient HD placement if nephrology recommend long-term hemodialysis ; disposition per nephrology , pending decision for long-term h emodialysis .possible discharge in 1 to 2 days if stable History Interval history: No new complaints Hemodialysis scheduled for today Vital signs noted Hospitalist Physical - Constitutional Vitals: Temp Pulse Resp BP Pulse Ox 98.0 F 101 H 18 174/88 95 03/18/20 08:10 03/18/20 08:24 03/18/20 08:10 03/18/20 08:10 03/18/20 08:10 General appearance: Present: no acute distress, well-nourished, obese, other (Intubated) - EENT Eyes: Present: PERRL, EOM intact - Neck Neck: Present: supple, normal ROM - Respiratory Respiratory effort: normal Respiratory: bilateral: diminished, negative: rales, rhonchi, wheezing - Cardiovascular Rhythm: regular Heart Sounds: Present: S1 & S2 - Extremities Extremities: no ischemia, No edema - Abdominal General gastrointestinal: soft, non-tender, non-distended, normal bowel sounds - Integumentary Integumentary: Present: clear, warm - Psychiatric Psychiatric: appropriate mood/affect, cooperative - Neurologic Neurologic: CNII-XII intact, moves all extremities HEART Score - HEART Score Troponin: Troponin T 0.085 ng/mL (0.00-0.029) H 03/11/20 14:31 Results - Labs CBC & Chem 7: 03/17/20 04:55 03/18/20 10:28 Labs: Laboratory Last Values WBC 13.9 K/mm3 (4.5-11.0) H 03/16/20 04:52 RBC 3.35 M/mm3 (3.65-5.03) L 03/16/20 04:52 Hgb 9.1 gm/dl (10.1-14.3) L 03/17/20 04:55 Hct 28.2 % (30.3-42.9) L 03/17/20 04:55 MCV 77 fl (79-97) L 03/16/20 04:52 MCH 25 pg (28-32) L 03/16/20 04:52 MCHC 32 % (30-34) 03/16/20 04:52 RDW 22.1 % (13.2-15.2) H 03/16/20 04:52 Plt Count 818 K/mm3 (140-440) H 03/17/20 04:55 Lymph % (Auto) 11.1 % (13.4-35.0) L 03/16/20 04:52 [place] % (Auto) 6.3 % (0.0-7.3) 03/16/20 04:52 Eos % (Auto) 4.4 % (0.0-4.3) H 03/16/20 04:52 Baso % (Auto) 0.8 % (0.0-1.8) 03/16/20 04:52 Lymph # (Auto) 1.5 K/mm3 (1.2-5.4) 03/16/20 04:52 [place] # (Auto) 0.9 K/mm3 (0.0-0.8) H 03/16/20 04:52 Eos # (Auto) 0.6 K/mm3 (0.0-0.4) H 03/16/20 04:52 Baso # (Auto) 0.1 K/mm3 (0.0-0.1) 03/16/20 04:52 Add Manual Diff Complete 03/11/20 04:32 Total Counted 100 03/11/20 04:32 Seg Neutrophils % 77.4 % (40.0-70.0) H 03/16/20 04:52 Seg Neuts % (Manual) 81.0 % (40.0-70.0) H 03/11/20 04:32 Band Neutrophils % 1.0 % 03/11/20 04:32 Lymphocytes % (Manual) 8.0 % (13.4-35.0) L 03/11/20 04:32 Reactive Lymphs % (Man) 0 % 03/11/20 04:32 Monocytes % (Manual) 8.0 % (0.0-7.3) H 03/11/20 04:32 Eosinophils % (Manual) 1.0 % (0.0-4.3) 03/11/20 04:32 Basophils % (Manual) 1.0 % (0.0-1.8) 03/11/20 04:32 Metamyelocytes % 0 % 03/11/20 04:32 Myelocytes % 0 % 03/11/20 04:32 Promyelocytes % 0 % 03/11/20 04:32 Blast Cells % 0 % 03/11/20 04:32 Nucleated RBC % Not Reportable 03/11/20 04:32 Seg Neutrophils # 10.8 K/mm3 (1.8-7.7) H 03/16/20 04:52 Seg Neutrophils # Man 18.1 K/mm3 (1.8-7.7) H 03/11/20 04:32 Band Neutrophils # 0.2 K/mm3 03/11/20 04:32 Lymphocytes # (Manual) 1.8 K/mm3 (1.2-5.4) 03/11/20 04:32 Abs React Lymphs (Man) 0.0 K/mm3 03/11/20 04:32 Monocytes # (Manual) 1.8 K/mm3 (0.0-0.8) H 03/11/20 04:32 Eosinophils # (Manual) 0.2 K/mm3 (0.0-0.4) 03/11/20 04:32 Basophils # (Manual) 0.2 K/mm3 (0.0-0.1) H 03/11/20 04:32 Metamyelocytes # 0.0 K/mm3 03/11/20 04:32 Myelocytes # 0.0 K/mm3 03/11/20 04:32 Promyelocytes # 0.0 K/mm3 03/11/20 04:32 Blast Cells # 0.0 K/mm3 03/11/20 04:32 WBC Morphology Not Reportable 03/11/20 04:32 Hypersegmented Neuts Not Reportable 03/11/20 04:32 Hyposegmented Neuts Not Reportable 03/11/20 04:32 Hypogranular Neuts Not Reportable 03/11/20 04:32 Smudge Cells Not Reportable 03/11/20 04:32 Toxic Granulation Not Reportable 03/11/20 04:32 Toxic Vacuolation Not Reportable 03/11/20 04:32 Dohle Bodies Not Reportable 03/11/20 04:32 Pelger-Huet Anomaly Not Reportable 03/11/20 04:32 Maia Rods Not Reportable 03/11/20 04:32 Platelet Estimate Consistent w auto 03/11/20 04:32 Clumped Platelets Not Reportable 03/11/20 04:32 Plt Clumps, EDTA Not Reportable 03/11/20 04:32 Large Platelets Not Reportable 03/11/20 04:32 Giant Platelets Not Reportable 03/11/20 04:32 Platelet Satelliting Not Reportable 03/11/20 04:32 Plt Morphology Comment Not Reportable 03/11/20 04:32 RBC Morphology Not Reportable 03/11/20 04:32 Dimorphic RBCs Not Reportable 03/11/20 04:32 Polychromasia Not Reportable 03/11/20 04:32 Hypochromasia 1+ 03/11/20 04:32 Poikilocytosis Not Reportable 03/11/20 04:32 Anisocytosis 1+ 03/11/20 04:32 Microcytosis Not Reportable 03/11/20 04:32 Macrocytosis Not Reportable 03/11/20 04:32 Spherocytes Not Reportable 03/11/20 04:32 Pappenheimer Bodies Not Reportable 03/11/20 04:32 Sickle Cells Not Reportable 03/11/20 04:32 Target Cells Not Reportable 03/11/20 04:32 Tear Drop Cells Rare 03/11/20 04:32 Ovalocytes Few 03/11/20 04:32 Helmet Cells Not Reportable 03/11/20 04:32 [place] Bodies Not Reportable 03/11/20 04:32 Jewett Rings Not Reportable 03/11/20 04:32 Brod[place] Cells Not Reportable 03/11/20 04:32 Bite Cells Not Reportable 03/11/20 04:32 Crenated Cell Not Reportable 03/11/20 04:32 Elliptocytes Not Reportable 03/11/20 04:32 Acanthocytes (Spur) Not Reportable 03/11/20 04:32 Rouleaux Not Reportable 03/11/20 04:32 Hemoglobin C Crystals Not Reportable 03/11/20 04:32 Schistocytes Not Reportable 03/11/20 04:32 Malaria parasites Not Reportable 03/11/20 04:32 Edgardo Bodies Not Reportable 03/11/20 04:32 Hem Pathologist Commnt No 03/11/20 04:32 PT 14.1 Sec. (12.2-14.9) 03/11/20 07:31 INR 1.07 (0.87-1.13) 03/11/20 07:31 APTT 32.0 Sec. (24.2-36.6) 03/11/20 07:31 ABG pH 7.420 pH Units (7.350-7.450) 03/15/20 13:20 POC ABG pCO2 40.5 mmHg (32.0-48.0) 03/13/20 14:23 ABG pCO2 45.5 mm Hg 03/15/20 13:20 POC ABG pO2 75.1 mmHg (83-108) L 03/13/20 14:23 ABG pO2 85.8 mm Hg (80.0-90.0) 03/15/20 13:20 POC ABG HCO3 28.3 03/13/20 14:23 ABG HCO3 28.9 mmol/L (20.0-26.0) H 03/15/20 13:20 ABG O2 Saturation 97.1 % (95.0-99.0) 03/15/20 13:20 ABG O2 Content 11.6 (0.0-44) 03/15/20 13:20 POC ABG Base Excess 4.2 03/13/20 14:23 ABG Base Excess 3.9 mmol/L (-2.0-3.0) H 03/15/20 13:20 ABG Hemoglobin 8.6 gm/dl (12.0-16.0) L 03/15/20 13:20 ABG Oxyhemoglobin 90.5 (94-98) L 03/06/20 04:41 ABG Carboxyhemoglobin 1.7 % (0.0-5.0) 03/15/20 13:20 ABG Methemoglobin 0.5 % (0.0-1.5) 03/15/20 13:20 ABG Sodium 135.9 mmol/L (136.0-145.0) L 03/13/20 14:23 ABG Potassium 3.8 mmol/L (3.40-4.50) 03/13/20 14:23 ABG Chloride 98.0 mmol/L (98-107) 03/13/20 14:23 ABG Glucose 89 mg/dL (65-95) 03/13/20 14:23 Oxyhemoglobin 94.9 % (95.0-99.0) L 03/15/20 13:20 Carboxyhemoglobin 1 (0.5-1.5) 03/06/20 04:41 FiO2 30 % 03/15/20 13:20 Sodium 137 mmol/L (137-145) 03/18/20 10:28 Potassium 3.9 mmol/L (3.6-5.0) 03/18/20 10:28 Chloride 94.4 mmol/L (98-107) L 03/18/20 10:28 Carbon Dioxide 27 mmol/L (22-30) 03/17/20 04:55 Anion Gap 21 mmol/L 03/17/20 04:55 BUN 37 mg/dL (7-17) H 03/18/20 10:28 Creatinine 3.0 mg/dL (0.6-1.2) H 03/18/20 10:28 Estimated GFR 21 ml/min 03/18/20 10:28 BUN/Creatinine Ratio 12 % 03/18/20 10:28 Glucose 112 mg/dL (65-100) H 03/18/20 10:28 POC Glucose 82 (70-105) 03/18/20 06:39 Lactic Acid 0.90 mmol/L (0.7-2.0) 02/27/20 19:33 Calcium 9.8 mg/dL (8.4-10.2) 03/18/20 10:28 Phosphorus 6.10 mg/dL (2.5-4.5) H 03/01/20 04:37 Magnesium 2.00 mg/dL (1.7-2.3) 03/07/20 05:03 Total Bilirubin 0.30 mg/dL (0.1-1.2) 03/16/20 04:52 Direct Bilirubin 0.6 mg/dL (0-0.2) H 03/05/20 06:00 Indirect Bilirubin 0.3 mg/dL 03/05/20 06:00 AST 30 units/L (5-40) 03/16/20 04:52 ALT 14 units/L (7-56) 03/16/20 04:52 Alkaline Phosphatase 75 units/L (35-129) 03/16/20 04:52 Troponin T 0.085 ng/mL (0.00-0.029) H 03/11/20 14:31 C-Reactive Protein 36.50 mg/dL (0.00-1.30) H 03/01/20 11:06 Serum Total Protein 6.3 g/dL (6.1-8.1) 02/26/20 04:39 Total Protein 7.6 g/dL (6.3-8.2) 03/16/20 04:52 Albumin 2.7 g/dL (3.9-5) L 03/16/20 04:52 Albumin/Globulin Ratio 0.6 % 03/16/20 04:52 Xlbkh-4-Iwiaoafak 0.7 g/dL (0.2-0.3) H 02/26/20 04:39 Jtayl-0-Zmafrzhwa 0.8 g/dL (0.5-0.9) 02/26/20 04:39 Beta Globulins 0.4 g/dL (0.2-0.5) 02/26/20 04:39 Gamma Globulins 1.2 g/dL (0.8-1.7) 02/26/20 04:39 Abnorm Protein Band 1 see below 02/26/20 04:39 PEP Interpretation see below H 02/26/20 04:39 Triglycerides 247 mg/dL (2-149) H 03/11/20 14:31 Cholesterol 158 mg/dL (50-199) 03/11/20 14:31 LDL Cholesterol Direct 80 mg/dL (50-130) 03/11/20 14:31 HDL Cholesterol 28 mg/dL (40-59) L 03/11/20 14:31 Cholesterol/HDL Ratio 5.64 % 03/11/20 14:31 Lipase 72 units/L (13-60) H 03/04/20 19:00 HCG, Qual Negative (Negative) 02/24/20 02:53 PTH Intact 911.3 pg/mL (15-65) H 02/26/20 08:15 Arterial Blood Glucose 89 mg/dL (65-95) 03/13/20 14:23 Arterial Blood Ionized Calcium 4.5 mg/dL (4.6-5.3) L 03/13/20 14:23 Urine Color Yellow (Yellow) 02/24/20 Unknown Urine Turbidity Clear (Clear) 02/24/20 Unknown Urine pH 6.0 (5.0-7.0) 02/24/20 Unknown Ur Specific [place] 1.020 (1.003-1.030) 02/24/20 Unknown Urine Protein >500 mg/dL (Negative) 02/24/20 Unknown Urine Glucose (UA) 50 mg/dL (Negative) 02/24/20 Unknown Urine Ketones Neg mg/dL (Negative) 02/24/20 Unknown Urine Blood Lg (Negative) 02/24/20 Unknown Urine Nitrite Neg (Negative) 02/24/20 Unknown Urine Bilirubin Neg (Negative) 02/24/20 Unknown Urine Urobilinogen < 2.0 mg/dL (<2.0) 02/24/20 Unknown Ur Leukocyte Esterase Neg (Negative) 02/24/20 Unknown Urine WBC (Auto) 11.0 /HPF (0.0-6.0) H 02/24/20 Unknown Urine RBC (Auto) 149.0 /HPF (0.0-6.0) 02/24/20 Unknown U Epithel Cells (Auto) 5.0 /HPF (0-13.0) 02/24/20 Unknown Urine Bacteria (Auto) 1+ /HPF (Negative) 02/24/20 Unknown Urine Mucus Few /HPF 02/24/20 Unknown Urine Creatinine 161.0 mg/dL (0.1-20.0) H 02/25/20 22:55 Protein/Creatinin Ratio 0.93 02/25/20 22:55 Urine Total Protein 150 mg/dL (5-11.8) H 02/25/20 22:55 ZINA Screen Positive (Negative) H 02/26/20 04:39 Proteinase 3 (PR3) Ab <1.0 AI (<1.0) 02/26/20 04:39 Myeloperoxidase Ab <1.0 AI (<1.0) 02/26/20 04:39 Double Strand DNA Ab See scanned result 03/06/20 14:46 Complement C3 153 mg/dL (83-193) 02/26/20 04:39 Complement C4 35 mg/dL (15-57) 02/26/20 04:39 Coronavirus (PCR) Negative (Negative) 03/09/20 09:12 Hepatitis A IgM Ab Non-reactive (NonReactive) 03/03/20 12:34 Hep Bs Antigen Non-reactive (Negative) 03/03/20 12:34 Hep B Core IgM Ab Non-reactive (NonReactive) 03/03/20 12:34 Hepatitis C Antibody Non-reactive (NonReactive) 03/03/20 12:34 Blood Type AB POSITIVE 03/13/20 08:45 Antibody Screen Negative 03/13/20 08:45 Crossmatch See Detail 03/13/20 08:45 - Diagnostic Impressions Diagnostic Impressions: Echocardiogram 02/26/20 09:11 Transthoracic Echocardiogram Indication: Cardiomegaly BP: 149/92 HR: 122 Conclusions *Global left ventricular systolic function is normal. *The estimated ejection fraction is 60-65%. *Moderate to severe concentric left ventricular hypertrophy is observed. *The left atrium is mild to moderately dilated. *The aortic valve leaflets are moderately thickened. *A mean gradient of 22.39 mmHg across the outflow tract is likely not due to but hyperdynamic flow and LVH. *There is trace tricuspid regurgitation. Findings Left Ventricle: The left ventricular chamber size is normal. Moderate to severe concentric left ventricular hypertrophy is observed. Global left ventricular systolic function is normal. The estimated ejection fraction is 60-65%. Left Atrium: The left atrium is mild to moderately dilated. Right Ventricle: The right ventricular cavity size is normal. The right ventricular global systolic function is normal. Right Atrium: The right atrial cavity size is normal. Aortic Valve: The aortic valve leaflets are moderately thickened. There is no evidence of aortic regurgitation. The mean gradient of the aortic valve is 22.39 mmHg. Mitral Valve: The mitral valve leaflets are mildly thickened. There is trace of mitral regurgitation. There is no evidence of mitral stenosis. Tricuspid Valve: There is trace tricuspid regurgitation. No pulmonary hypertension is noted. Pulmonic Valve: There is trace pulmonic regurgitation. Pericardium: There is no pericardial effusion. Aorta: There is no dilatation of the ascending aorta. There is no dilatation of the aortic root. Venous: The inferior vena cava appears normal in size. Measurements Chambers 2D Name Value Normal Range IVSd (2D) 1.8 cm (0.6 - 1.1) LVPWd (2D) 1.74 cm (0.6 - 1.1) LVIDd (2D) 4.57 cm (3.7 - 5.6) LVIDs (2D) 2.73 cm (2 - 3.8) LV FS (2D) 40.27 % - EF Teichholz (2D) 71.04 % - Ao root diameter (2D) 2.79 cm (2 - 3.7) Volumes/Mass Name Value Normal Range LA ESV SP 4CH (A/L) 54.18 ml - LA ESV SP 2CH (A/L) 61.84 ml - LA ESV BP (A/L) 58.1 ml - LA ESV BP (A/L) index 30.74 ml/m2 - LA ESV SP 4CH (MOD) 52.89 ml - LA ESV SP 2CH (MOD) 60.65 ml - LA ESV BP (MOD) 56.77 ml - LA ESV BP (MOD) index 30.04 ml/m2 - LV EDV SP 4CH (MOD) 164.2 ml - LV ESV SP 4CH (MOD) 58.04 ml - EF SP 4CH (MOD) 64.65 % - Diastolic/Systolic Function Name Value Normal Range MV E-wave Vmax 1.38 m/sec - MV deceleration time 92.78 msec - MV A-wave Vmax 1.44 m/sec - MV E:A ratio 0.95 ratio - Aortic Valve Name Value Normal Range AV Vmax 3.08 m/sec - AV VTI 36.74 cm - AV peak gradient 37.98 mmHg - AV mean gradient 22.39 mmHg - LVOT diameter 2.01 cm - LVOT Vmax 2.45 m/sec - LVOT VTI 29.85 cm - LVOT peak gradient 24.04 mmHg - LVOT mean gradient 11.11 mmHg - SV LVOT 94.73 ml - JADA (continuity Vmax) 2.52 cm2 - JADA (continuity VTI) 2.58 cm2 - Ascending Ao 2.64 cm - Mitral Valve Name Value Normal Range MV PHT 37.88 msec - MVA (PHT) 5.81 cm2 - Tricuspid Valve Name Value Normal Range IVC diameter 1.93 cm (1.2 - 2.3) Pulmonic Valve/Qp:Qs Name Value Normal Range PV Vmax 2.83 m/sec - PV VTI 45.88 cm - PV peak gradient 32.06 mmHg - PV mean gradient 16.11 mmHg - NJ end-diastolic Vmax 0.81 m/sec - RVOT Vmax 1.82 m/sec - RVOT VTI 25.12 cm - RVOT peak gradient 13.3 mmHg - Franks/IV: Voiding Method Toilet IV Catheter Type [Right VAS Cath Internal Jugular] IV Catheter Type [Left Upper INT / Saline Lock arm] IV Catheter Type [Right Upper INT / Saline Lock arm] IV Catheter Type [Right INT / Saline Lock Forearm] IV Catheter Type [Right Wrist] Peripheral IV IV Catheter Type [Right Peripheral IV Antecubital] Active Medications - Current Medications Current Medications: Generic Name Dose Route Start Last Admin Trade Name Freq PRN Reason Stop Dose Admin Acetaminophen 650 mg 02/26/20 16:23 03/14/20 22:03 Tylenol PO 650 mg Q4H PRN Administration Pain, Mild (1-3)/ Temp >100. Albuterol 2.5 mg 02/27/20 17:55 Proventil IH Q4HRT PRN Shortness Of Breath Amlodipine Besylate 10 mg 02/28/20 10:00 03/17/20 10:45 Amlodipine PO 10 mg QDAY INDU Administration Aspirin 325 mg 03/15/20 11:00 03/17/20 10:45 Aspirin PO 325 mg QDAY INDU Administration Dextrose 50 ml 02/29/20 08:00 03/01/20 00:20 D50w (25gm) Syringe IV 10 ml Q30MIN PRN Administration HYPOGLYCEMIA Protocol Epoetin Prosper 10,000 unit 03/12/20 10:00 03/16/20 11:58 Procrit IV 10,000 unit NIKOLAY PRN Administration hemodialysis Heparin Sodium (Porcine) 5,000 unit 03/11/20 14:00 03/18/20 06:37 Heparin SUB-Q 5,000 unit Q8HR INDU Administration Hydralazine HCl 25 mg 03/04/20 14:00 03/18/20 06:37 Apresoline PO 25 mg Q8HR INDU Administration Hydrophilic Ointment 1 applic 03/11/20 06:01 Vaseline Lip Therapy TP Q2HR PRN Dry Lips Sodium Chloride 100 mls @ 999 mls/hr 03/08/20 17:05 Nacl 0.9% IV NIKOLAY PRN Hypotension Labetalol HCl 10 mg 02/28/20 09:00 03/11/20 03:04 Labetalol IV 10 mg Q4H PRN Administration Hypertension Metoprolol Tartrate 25 mg 02/28/20 10:00 03/17/20 23:28 Metoprolol PO 25 mg BID INDU Administration Morphine Sulfate 2 mg 03/11/20 05:13 03/16/20 01:46 Morphine IV 2 mg Q4H PRN Administration Pain, Moderate (4-6) Multi-Ingred Cream/Lotion/Oil/Oint 1 applic 03/11/20 06:01 Artificial Tears Ophth Oint OU Q4HR PRN Dry Eye(s) Nitroglycerin 0.4 mg 03/11/20 05:14 Nitrostat SL .Q5MIN PRN Chest Pain Ondansetron HCl 4 mg 02/24/20 06:45 02/25/20 23:33 Zofran IV 4 mg Q8H PRN Administration Nausea And Vomiting Pantoprazole Sodium 40 mg 03/16/20 11:00 03/17/20 10:45 Protonix PO 40 mg QDAC INDU Administration Quetiapine Fumarate 100 mg 03/16/20 22:00 03/17/20 23:28 Seroquel PO 100 mg QHS INDU Administration Sodium Chloride 10 ml 02/24/20 10:00 03/17/20 23:29 Sodium Chloride Flush Syringe 10 Ml IV 10 ml BID INDU Administration Sodium Chloride 10 ml 02/24/20 06:45 03/10/20 09:06 Sodium Chloride Flush Syringe 10 Ml IV 10 ml PRN PRN Administration LINE FLUSH Nutrition/Malnutrition Assess - Dietary Evaluation Nutrition/Malnutrition Findings: Nutrition Notes Start: 02/24/20 13:42 Freq: Status: Active Protocol: Document 03/17/20 14:30 BRANDI (Rec: 03/17/20 14:35 BRANDI [id number]) Co-Sign 03/17/20 14:30 LM Nutrition Notes Initial or Follow up Reassessment Current Diagnosis Acute Kidney Injury,Sepsis, Hypertension,Respiratory Failure,Hyperlipidemia Other Pertinent Diagnosis Acute pancreatitis, HD Current Diet Mechanical Soft Labs/Tests Reviewed Pertinent Medications Reviewed Height 5 ft 1 in Weight 91 kg [place] Body Weight (kg) 47.72 BMI 37.9 Weight Status Obese Subjective/Other Information Diet advancement yesterday. Pt only ate a few bites of breakfast. Pt agreed to Ensure Enlive Vanilla BID. Pt had no nutrition questions. Percent of energy/protein needs met: 0%/0% Burn Absent Trauma Absent GI Symptoms None Current % PO Negligible Minimum of two criteria No Fluid Accumulation Moderate to Severe (severe) #2 Nutrition Diagnosis Inadequate oral intake As Evidenced by Signs and Symptoms pt took a few bites of meal this AM. Diagnosis Progress(for reassessment Continues documentation) #1 Nutrition Diagnosis Food and nutrition-related knowledge deficit As Evidenced by Signs and Symptoms Pt had no nutritional concerns . Diagnosis Progress(for reassessment Resolved documentation) Is patient on ventilator? Yes Is Patient Ambulatory and/or Out of Bed No REE-([place]-. [facility]-confined to bed) 1823.604 Kcal/Kg value to use for calculation 16 Approximate Energy Requirements Using 1456 kcal/Kg Calculation Used for Recommendations Kcal/kg Additional Notes Pro: 83-104g (1.2-1.5g/kg AdBW 69kg) Fluid: 1ml/kcal Nutrition Intervention Change Diet Order: Diet advancement as able, once able, recommend Cardiac diet. Add Supplement/Snack (indicate name/kcal Ensure Enlive Vanilla BID /protein ) Provides kCal: 700 Provides Protein (gm) 40 Goal #1 Meet at least 75% of energy and protein needs Anticipated Discharge Needs: Recommend heart-heathly diet Follow-Up By: 03/19/20 Additional Comments F/u intakes
[2020-03-18] MEDS: ASPIRIN 325 MG TAB PO SCH (14:22)
[2020-03-18] MEDS: METOPROLOL TARTRATE 25 MG TAB PO SCH ×2 (14:22→21:50)
[2020-03-18] MEDS: PANTOPRAZOLE 40 MG TAB PO SCH (14:22)
[2020-03-18] MEDS: amLODIPine 10 MG TAB PO SCH (14:55)
--- NOTE | 2020-03-18 15:32 | Progress Note ---
Assessment and Plan Cultures: Urine culture grew 10-100,000 usual xavier. Blood culture 02/26/2020 no growth 02/29/2020 sputum culture: rare usual xavier 03/06/2020 blood culture: no growth 03/07/2020 sputum culture: Ana Luisa 03/11/2020 ET aspirate: no growth thus far Assessment: 39 years old female with history of hypertension, previous kidney stone, hyperlipidemia and obesity admitted on 02/24/2020 due to a week history of severe epigastric abdominal pain radiated to the right flank and back: #Acute sepsis: Likely secondary to severe pancreatitis and related complications. Remains critically ill. #Acute severe pancreatitis: Unclear etiology. Initial non-contrasted CT showed no evidence of necrosis or pseudocyst or abscess formation. Repeat CT 03/05 with interval worsening of acute pancreatitis without clear evidence of necrosis, however was done without IV contrast due to her renal function. Ongoing fevers likely to due severe pancreatitis and ?related complications #Acute renal failure: now requiring dialysis. Nephrology on board. #Acute respiratory hypoxic failure: re-intubated 03/11/2020, back on the vent. #?Alcohol abuse Recommendations: -Monitor off antibiotics -Monitor fever, if more than 100 please obtain blood cultures -Repeat CBC in morning We will follow Alan Lim MD [facility] ([facility] M: [phone] O: [phone] F: [phone] Subjective Date of service: 03/18/20 Principal diagnosis: HTNsive urgency; Morbid obesity; Ac. pancreatitis; Abdomin al pain Interval history: Afebrile, no acute change. White count remains persistently mildly elevated. Objective - Exam Narrative Exam: General appearance: Alert no acute distress intubated Eyes: anicteric sclerae, limited HENT: Atraumatic; oropharynx endotracheal tube in place Lungs: Diminished breath sounds bilaterally CV: RRR Abdomen: Soft, distended, nontender Extremities: no edema, no cyanosis Skin: No rash. Psych: Nonagitated Neuro: Alert follows commands - Constitutional Vitals: Vital Signs Temp Pulse Resp BP Pulse Ox 98.0 F 101 H 18 174/88 95 03/18/20 08:10 03/18/20 08:24 03/18/20 08:10 03/18/20 08:10 03/18/20 08:10 Temperature -Last 24 Hours Temperature 98.0 F Temperature 98.5 F Temperature 98.5 F Temperature 98.8 F Temperature 98.1 F Temperature 98.1 F - Labs CBC & Chem 7: 03/17/20 04:55 03/18/20 10:28 Labs: Abnormal lab results 03/18/20 Range/Units 10:28 Chloride 94.4 L (98-107) mmol/L BUN 37 H (7-17) mg/dL Creatinine 3.0 H (0.6-1.2) mg/dL Glucose 112 H (65-100) mg/dL
--- NOTE | 2020-03-18 17:15 | Progress Note ---
Assessment and Plan Patient awake. Resting on room air. O2 saturation 96%. No complaint of chest pain, shortness of breath or cough. Patient admitted for pancreatitis. Patient initially complained dyspnea. No dyspnea now. Patient afebrile. Has leukocytosis. - Patient Problems (1) Dyspnea Current Visit: Yes Status: Acute Plan to address problem: Improved. No complaint of dyspnea to day. O2 saturation 96% on room air. (2) Acute pancreatitis Current Visit: Yes Status: Acute Plan to address problem: Management as per primary care. (3) Hypertensive urgency Current Visit: Yes Status: Acute Plan to address problem: Management as per primary care. Subjective Date of service: 03/18/20 Principal diagnosis: HTNsive urgency; Morbid obesity; Ac. pancreatitis; Abdominal pain Interval history: Patient awake. Resting on room air. O2 saturation 96%. No complaint of chest pain, shortness of breath or cough. Patient admitted for pancreatitis. Patient initially complained dyspnea. No dyspnea now. Patient afebrile. Has leukocytosis. Objective Vital Signs - 12hr 03/18/20 03/18/20 03/18/20 06:37 08:00 08:10 Temperature 98.0 F Pulse Rate 101 H 100 H Pulse Rate [ 101 H Left Dorsalis Pedis] Pulse Rate [ 101 H Right Dorsalis Pedis] Pulse Rate [ 101 H Right Radial] Respiratory 19 18 Rate Blood Pressure 187/98 174/88 O2 Sat by Pulse 98 95 Oximetry O2 Sat by Pulse Oximetry [Left Upper Lobe] 03/18/20 03/18/20 03/18/20 08:24 09:55 10:00 Temperature 98.2 F Pulse Rate 101 H 95 H 93 H Pulse Rate [ Left Dorsalis Pedis] Pulse Rate [ Right Dorsalis Pedis] Pulse Rate [ Right Radial] Respiratory 22 Rate Blood Pressure 193/111 205/115 O2 Sat by Pulse Oximetry O2 Sat by Pulse 100 Oximetry [Left Upper Lobe] 03/18/20 03/18/20 03/18/20 10:15 10:30 10:45 Temperature Pulse Rate 96 H 94 H 90 Pulse Rate [ Left Dorsalis Pedis] Pulse Rate [ Right Dorsalis Pedis] Pulse Rate [ Right Radial] Respiratory Rate Blood Pressure 186/112 202/116 177/108 O2 Sat by Pulse Oximetry O2 Sat by Pulse Oximetry [Left Upper Lobe] 03/18/20 03/18/20 03/18/20 11:00 11:15 11:30 Temperature Pulse Rate 90 90 88 Pulse Rate [ Left Dorsalis Pedis] Pulse Rate [ Right Dorsalis Pedis] Pulse Rate [ Right Radial] Respiratory Rate Blood Pressure 207/118 178/112 186/111 O2 Sat by Pulse Oximetry O2 Sat by Pulse Oximetry [Left Upper Lobe] 03/18/20 03/18/20 03/18/20 11:45 12:00 12:15 Temperature Pulse Rate 90 90 91 H Pulse Rate [ Left Dorsalis Pedis] Pulse Rate [ Right Dorsalis Pedis] Pulse Rate [ Right Radial] Respiratory Rate Blood Pressure 177/108 178/107 183/110 O2 Sat by Pulse Oximetry O2 Sat by Pulse Oximetry [Left Upper Lobe] 03/18/20 03/18/20 03/18/20 12:30 12:45 13:00 Temperature 98.2 F Pulse Rate 89 90 90 Pulse Rate [ Left Dorsalis Pedis] Pulse Rate [ Right Dorsalis Pedis] Pulse Rate [ Right Radial] Respiratory 20 Rate Blood Pressure 185/113 188/116 175/108 O2 Sat by Pulse Oximetry O2 Sat by Pulse 100 Oximetry [Left Upper Lobe] 03/18/20 03/18/20 03/18/20 13:15 13:30 16:09 Temperature Pulse Rate 81 90 86 Pulse Rate [ Left Dorsalis Pedis] Pulse Rate [ Right Dorsalis Pedis] Pulse Rate [ Right Radial] Respiratory Rate Blood Pressure 178/87 179/99 O2 Sat by Pulse Oximetry O2 Sat by Pulse Oximetry [Left Upper Lobe] Constitutional: no acute distress, alert Eyes: non-icteric ENT: oropharynx moist Neck: supple, no lymphadenopathy, no JVD, other (RIJ HD catheter) Effort: mildly labored Ascultation: Bilateral: diminished breath sounds (at the bases), wheezes (expiratory), rales, rhonchi Percussion: Bilateral: not dull Cardiovascular: regular rate and rhythm, other (S1,S2) Gastrointestinal: normoactive bowel sounds, hypoactive bowel sounds, soft, non- tender, non-distended Integumentary: normal Extremities: no cyanosis, no edema, pink and warm, pulses normal Neurologic: normal mental status, non-focal exam, pupils equal and round, CN II- XII normal, motor strength normal and Psychiatric: mood appropriate, affect normal CBC and BMP: 03/19/20 05:55 03/19/20 05:55 ABG, PT/INR, D-dimer: ABG ABG pH 7.420 pH Units (7.350-7.450) 03/15/20 13:20 POC ABG pCO2 40.5 mmHg (32.0-48.0) 03/13/20 14:23 ABG pCO2 45.5 mm Hg 03/15/20 13:20 POC ABG pO2 75.1 mmHg (83-108) L 03/13/20 14:23 ABG pO2 85.8 mm Hg (80.0-90.0) 03/15/20 13:20 POC ABG HCO3 28.3 03/13/20 14:23 ABG O2 Saturation 97.1 % (95.0-99.0) 03/15/20 13:20 PT/INR, D-dimer PT 14.1 Sec. (12.2-14.9) 03/11/20 07:31 INR 1.07 (0.87-1.13) 03/11/20 07:31 Abnormal lab findings: Abnormal Labs 02/24/20 02/24/20 02/24/20 02:53 02:53 Unknown WBC 12.7 H Hgb 10.0 L RBC Hct MCV 70 L MCH 22 L RDW 17.9 H Plt Count 458 H Lymph % (Auto) 8.9 L Lymph # 1.1 L [place] % (Auto) [place] # Eos % (Auto) Lymph # (Auto) [place] # (Auto) Eos # (Auto) Seg Neutrophils % 84.2 H Seg Neutrophils # 10.7 H Seg Neuts % (Manual) Lymphocytes % (Manual) Monocytes % (Manual) Nucleated RBC % Seg Neutrophils # Man Lymphocytes # (Manual) Monocytes # (Manual) Eosinophils # (Manual) Basophils # (Manual) ABG pH POC ABG pCO2 POC ABG pO2 ABG pO2 ABG HCO3 ABG O2 Saturation ABG Base Excess ABG Hemoglobin ABG Oxyhemoglobin ABG Sodium ABG Glucose Oxyhemoglobin Sodium Potassium Chloride Carbon Dioxide BUN 27 H Creatinine 1.7 H Glucose 118 H POC Glucose Calcium Phosphorus Magnesium Direct Bilirubin AST Alkaline Phosphatase Albumin Troponin T C-Reactive Protein Sehbn-2-Lbfxpfxje PEP Interpretation Triglycerides Lipase 232 H HDL Cholesterol PTH Intact Arterial Blood Glucose Arterial Blood Ionized Calcium Urine WBC (Auto) 11.0 H Urine Creatinine Urine Total Protein ZINA Screen Crossmatch 02/25/20 02/25/20 02/25/20 00:03 03:49 03:49 WBC 29.1 H Hgb 9.4 L RBC Hct 30.2 L MCV 71 L MCH 22 L RDW 18.3 H Plt Count 525 H Lymph % (Auto) 3.4 L Lymph # 1.0 L [place] % (Auto) [place] # 1.0 H Eos % (Auto) Lymph # (Auto) [place] # (Auto) Eos # (Auto) Seg Neutrophils % Seg Neutrophils # 26.4 H Seg Neuts % (Manual) Lymphocytes % (Manual) Monocytes % (Manual) Nucleated RBC % Seg Neutrophils # Man Lymphocytes # (Manual) Monocytes # (Manual) Eosinophils # (Manual) Basophils # (Manual) ABG pH POC ABG pCO2 POC ABG pO2 ABG pO2 ABG HCO3 ABG O2 Saturation ABG Base Excess ABG Hemoglobin ABG Oxyhemoglobin ABG Sodium ABG Glucose Oxyhemoglobin Sodium Potassium Chloride Carbon Dioxide BUN Creatinine Glucose POC Glucose 126 H Calcium Phosphorus Magnesium Direct Bilirubin AST Alkaline Phosphatase Albumin Troponin T C-Reactive Protein Nretu-4-Jdugixtdn PEP Interpretation Triglycerides Lipase 1486 H HDL Cholesterol PTH Intact Arterial Blood Glucose Arterial Blood Ionized Calcium Urine WBC (Auto) Urine Creatinine Urine Total Protein ZINA Screen Crossmatch 02/25/20 02/25/20 02/25/20 03:49 05:55 22:55 WBC Hgb RBC Hct MCV MCH RDW Plt Count Lymph % (Auto) Lymph # [place] % (Auto) [place] # Eos % (Auto) Lymph # (Auto) [place] # (Auto) Eos # (Auto) Seg Neutrophils % Seg Neutrophils # Seg Neuts % (Manual) Lymphocytes % (Manual) Monocytes % (Manual) Nucleated RBC % Seg Neutrophils # Man Lymphocytes # (Manual) Monocytes # (Manual) Eosinophils # (Manual) Basophils # (Manual) ABG pH POC ABG pCO2 POC ABG pO2 ABG pO2 ABG HCO3 ABG O2 Saturation ABG Base Excess ABG Hemoglobin ABG Oxyhemoglobin ABG Sodium ABG Glucose Oxyhemoglobin Sodium 136 L Potassium Chloride 97.9 L Carbon Dioxide 21 L BUN 39 H Creatinine 3.0 H D Glucose 118 H POC Glucose 124 H Calcium Phosphorus Magnesium Direct Bilirubin AST Alkaline Phosphatase Albumin 3.6 L Troponin T C-Reactive Protein Ggwml-9-Trsxfpxxi PEP Interpretation Triglycerides Lipase HDL Cholesterol PTH Intact Arterial Blood Glucose Arterial Blood Ionized Calcium Urine WBC (Auto) Urine Creatinine 161.0 H Urine Total Protein 150 H ZINA Screen Crossmatch 02/26/20 02/26/20 02/26/20 04:39 04:39 04:39 WBC 30.3 H Hgb 9.1 L RBC Hct 29.8 L MCV 71 L MCH 22 L RDW 18.2 H Plt Count 530 H Lymph % (Auto) Lymph # [place] % (Auto) [place] # Eos % (Auto) Lymph # (Auto) [place] # (Auto) Eos # (Auto) Seg Neutrophils % Seg Neutrophils # Seg Neuts % (Manual) Lymphocytes % (Manual) Monocytes % (Manual) Nucleated RBC % Seg Neutrophils # Man Lymphocytes # (Manual) Monocytes # (Manual) Eosinophils # (Manual) Basophils # (Manual) ABG pH POC ABG pCO2 POC ABG pO2 ABG pO2 ABG HCO3 ABG O2 Saturation ABG Base Excess ABG Hemoglobin ABG Oxyhemoglobin ABG Sodium ABG Glucose Oxyhemoglobin Sodium Potassium Chloride Carbon Dioxide 19 L BUN 44 H Creatinine 3.1 H Glucose 106 H POC Glucose Calcium 8.1 L Phosphorus Magnesium Direct Bilirubin AST Alkaline Phosphatase Albumin Troponin T C-Reactive Protein Xlxew-7-Vojzdrsvc PEP Interpretation Triglycerides Lipase 540 H HDL Cholesterol PTH Intact Arterial Blood Glucose Arterial Blood Ionized Calcium Urine WBC (Auto) Urine Creatinine Urine Total Protein ZINA Screen Positive H Crossmatch 02/26/20 02/26/20 02/26/20 04:39 08:15 12:14 WBC Hgb RBC Hct MCV MCH RDW Plt Count Lymph % (Auto) Lymph # [place] % (Auto) [place] # Eos % (Auto) Lymph # (Auto) [place] # (Auto) Eos # (Auto) Seg Neutrophils % Seg Neutrophils # Seg Neuts % (Manual) Lymphocytes % (Manual) Monocytes % (Manual) Nucleated RBC % Seg Neutrophils # Man Lymphocytes # (Manual) Monocytes # (Manual) Eosinophils # (Manual) Basophils # (Manual) ABG pH POC ABG pCO2 POC ABG pO2 ABG pO2 ABG HCO3 ABG O2 Saturation ABG Base Excess ABG Hemoglobin ABG Oxyhemoglobin ABG Sodium ABG Glucose Oxyhemoglobin Sodium Potassium Chloride Carbon Dioxide BUN Creatinine Glucose POC Glucose 112 H Calcium Phosphorus Magnesium Direct Bilirubin AST Alkaline Phosphatase Albumin 2.8 L Troponin T C-Reactive Protein Qbwue-3-Uzulvsnue 0.7 H PEP Interpretation see below H Triglycerides Lipase HDL Cholesterol PTH Intact 911.3 H Arterial Blood Glucose Arterial Blood Ionized Calcium Urine WBC (Auto) Urine Creatinine Urine Total Protein ZINA Screen Crossmatch 02/27/20 02/27/20 02/27/20 04:18 04:18 04:18 WBC 26.8 H Hgb 7.9 L RBC Hct 26.3 L MCV 70 L MCH 21 L RDW 18.0 H Plt Count 513 H Lymph % (Auto) Lymph # [place] % (Auto) [place] # Eos % (Auto) Lymph # (Auto) [place] # (Auto) Eos # (Auto) Seg Neutrophils % Seg Neutrophils # Seg Neuts % (Manual) Lymphocytes % (Manual) Monocytes % (Manual) Nucleated RBC % Seg Neutrophils # Man Lymphocytes # (Manual) Monocytes # (Manual) Eosinophils # (Manual) Basophils # (Manual) ABG pH POC ABG pCO2 POC ABG pO2 ABG pO2 ABG HCO3 ABG O2 Saturation ABG Base Excess ABG Hemoglobin ABG Oxyhemoglobin ABG Sodium ABG Glucose Oxyhemoglobin Sodium 135 L 135 L Potassium Chloride Carbon Dioxide 15 L 16 L BUN 50 H 51 H Creatinine 3.4 H 3.4 H Glucose POC Glucose Calcium 7.4 L 7.5 L Phosphorus Magnesium Direct Bilirubin AST Alkaline Phosphatase Albumin 3.0 L Troponin T C-Reactive Protein 37.30 H Eymea-4-Haepbqchs PEP Interpretation Triglycerides Lipase 177 H HDL Cholesterol PTH Intact Arterial Blood Glucose Arterial Blood Ionized Calcium Urine WBC (Auto) Urine Creatinine Urine Total Protein ZINA Screen Crossmatch 02/27/20 02/28/20 02/28/20 16:57 05:07 05:07 WBC Hgb RBC Hct MCV MCH RDW Plt Count Lymph % (Auto) Lymph # [place] % (Auto) [place] # Eos % (Auto) Lymph # (Auto) [place] # (Auto) Eos # (Auto) Seg Neutrophils % Seg Neutrophils # Seg Neuts % (Manual) Lymphocytes % (Manual) Monocytes % (Manual) Nucleated RBC % Seg Neutrophils # Man Lymphocytes # (Manual) Monocytes # (Manual) Eosinophils # (Manual) Basophils # (Manual) ABG pH 7.336 L POC ABG pCO2 POC ABG pO2 ABG pO2 57.0 L ABG HCO3 16.4 L ABG O2 Saturation 88.2 L ABG Base Excess -8.4 L ABG Hemoglobin 10.4 L ABG Oxyhemoglobin ABG Sodium ABG Glucose Oxyhemoglobin 85.7 L Sodium Potassium Chloride Carbon Dioxide 14 L BUN 60 H Creatinine 4.2 H Glucose POC Glucose Calcium 8.2 L Phosphorus Magnesium Direct Bilirubin AST Alkaline Phosphatase Albumin Troponin T C-Reactive Protein Mpggi-9-Uncazpkdy PEP Interpretation Triglycerides Lipase 155 H HDL Cholesterol PTH Intact Arterial Blood Glucose Arterial Blood Ionized Calcium Urine WBC (Auto) Urine Creatinine Urine Total Protein ZINA Screen Crossmatch 02/28/20 02/28/20 02/28/20 05:56 11:05 11:05 WBC Hgb RBC Hct MCV MCH RDW Plt Count Lymph % (Auto) Lymph # [place] % (Auto) [place] # Eos % (Auto) Lymph # (Auto) [place] # (Auto) Eos # (Auto) Seg Neutrophils % Seg Neutrophils # Seg Neuts % (Manual) Lymphocytes % (Manual) Monocytes % (Manual) Nucleated RBC % Seg Neutrophils # Man Lymphocytes # (Manual) Monocytes # (Manual) Eosinophils # (Manual) Basophils # (Manual) ABG pH 7.317 L POC ABG pCO2 POC ABG pO2 76.2 L ABG pO2 ABG HCO3 16.4 L ABG O2 Saturation ABG Base Excess -8.9 L ABG Hemoglobin 6.6 L 7.6 L ABG Oxyhemoglobin ABG Sodium ABG Glucose Oxyhemoglobin 94.6 L Sodium Potassium Chloride Carbon Dioxide BUN Creatinine Glucose POC Glucose 115 H Calcium Phosphorus Magnesium Direct Bilirubin AST Alkaline Phosphatase Albumin Troponin T C-Reactive Protein Yzkop-9-Buqexnbyl PEP Interpretation Triglycerides Lipase HDL Cholesterol PTH Intact Arterial Blood Glucose Arterial Blood Ionized Calcium Urine WBC (Auto) Urine Creatinine Urine Total Protein ZINA Screen Crossmatch 02/28/20 02/28/20 02/29/20 17:39 19:39 05:43 WBC Hgb RBC Hct MCV MCH RDW Plt Count Lymph % (Auto) Lymph # [place] % (Auto) [place] # Eos % (Auto) Lymph # (Auto) [place] # (Auto) Eos # (Auto) Seg Neutrophils % Seg Neutrophils # Seg Neuts % (Manual) Lymphocytes % (Manual) Monocytes % (Manual) Nucleated RBC % Seg Neutrophils # Man Lymphocytes # (Manual) Monocytes # (Manual) Eosinophils # (Manual) Basophils # (Manual) ABG pH 7.300 L POC ABG pCO2 POC ABG pO2 ABG pO2 117.5 H ABG HCO3 15.0 L ABG O2 Saturation ABG Base Excess -10.5 L ABG Hemoglobin 6.4 L ABG Oxyhemoglobin ABG Sodium ABG Glucose Oxyhemoglobin Sodium Potassium Chloride Carbon Dioxide BUN Creatinine Glucose POC Glucose 120 H 66 L Calcium Phosphorus Magnesium Direct Bilirubin AST Alkaline Phosphatase Albumin Troponin T C-Reactive Protein Imqjz-5-Vnizznubm PEP Interpretation Triglycerides Lipase HDL Cholesterol PTH Intact Arterial Blood Glucose Arterial Blood Ionized Calcium Urine WBC (Auto) Urine Creatinine Urine Total Protein ZINA Screen Crossmatch 02/29/20 02/29/20 02/29/20 05:45 12:04 12:31 WBC Hgb RBC Hct MCV MCH RDW Plt Count Lymph % (Auto) Lymph # [place] % (Auto) [place] # Eos % (Auto) Lymph # (Auto) [place] # (Auto) Eos # (Auto) Seg Neutrophils % Seg Neutrophils # Seg Neuts % (Manual) Lymphocytes % (Manual) Monocytes % (Manual) Nucleated RBC % Seg Neutrophils # Man Lymphocytes # (Manual) Monocytes # (Manual) Eosinophils # (Manual) Basophils # (Manual) ABG pH 7.212 L POC ABG pCO2 POC ABG pO2 ABG pO2 ABG HCO3 ABG O2 Saturation ABG Base Excess ABG Hemoglobin 7.4 L ABG Oxyhemoglobin ABG Sodium ABG Glucose Oxyhemoglobin Sodium Potassium Chloride Carbon Dioxide BUN Creatinine Glucose POC Glucose 65 L 64 L Calcium Phosphorus Magnesium Direct Bilirubin AST Alkaline Phosphatase Albumin Troponin T C-Reactive Protein Xvpps-6-Ghqzbcjpd PEP Interpretation Triglycerides Lipase HDL Cholesterol PTH Intact Arterial Blood Glucose Arterial Blood Ionized Calcium Urine WBC (Auto) Urine Creatinine Urine Total Protein ZINA Screen Crossmatch 02/29/20 02/29/20 02/29/20 14:22 14:22 18:20 WBC Hgb RBC Hct MCV MCH RDW Plt Count Lymph % (Auto) Lymph # [place] % (Auto) [place] # Eos % (Auto) Lymph # (Auto) [place] # (Auto) Eos # (Auto) Seg Neutrophils % Seg Neutrophils # Seg Neuts % (Manual) Lymphocytes % (Manual) Monocytes % (Manual) Nucleated RBC % Seg Neutrophils # Man Lymphocytes # (Manual) Monocytes # (Manual) Eosinophils # (Manual) Basophils # (Manual) ABG pH POC ABG pCO2 POC ABG pO2 ABG pO2 ABG HCO3 ABG O2 Saturation ABG Base Excess ABG Hemoglobin ABG Oxyhemoglobin ABG Sodium ABG Glucose Oxyhemoglobin Sodium Potassium Chloride Carbon Dioxide 16 L BUN 77 H Creatinine 4.7 H Glucose POC Glucose 66 L Calcium Phosphorus 7.50 H Magnesium 2.60 H Direct Bilirubin AST Alkaline Phosphatase Albumin 2.3 L Troponin T C-Reactive Protein Hpyzt-2-Lcwhigojt PEP Interpretation Triglycerides Lipase HDL Cholesterol PTH Intact Arterial Blood Glucose Arterial Blood Ionized Calcium Urine WBC (Auto) Urine Creatinine Urine Total Protein ZINA Screen Crossmatch 02/29/20 03/01/20 03/01/20 18:24 04:05 04:37 WBC Hgb RBC Hct MCV MCH RDW Plt Count Lymph % (Auto) Lymph # [place] % (Auto) [place] # Eos % (Auto) Lymph # (Auto) [place] # (Auto) Eos # (Auto) Seg Neutrophils % Seg Neutrophils # Seg Neuts % (Manual) Lymphocytes % (Manual) Monocytes % (Manual) Nucleated RBC % Seg Neutrophils # Man Lymphocytes # (Manual) Monocytes # (Manual) Eosinophils # (Manual) Basophils # (Manual) ABG pH 7.271 L 7.347 L POC ABG pCO2 POC ABG pO2 ABG pO2 133.5 H ABG HCO3 15.8 L ABG O2 Saturation ABG Base Excess -8.9 L ABG Hemoglobin 7.2 L 7.6 L ABG Oxyhemoglobin 93.4 L ABG Sodium ABG Glucose Oxyhemoglobin Sodium Potassium Chloride 107.6 H Carbon Dioxide 14 L BUN 83 H Creatinine 5.6 H Glucose POC Glucose Calcium Phosphorus 6.10 H Magnesium 2.40 H Direct Bilirubin AST Alkaline Phosphatase Albumin Troponin T C-Reactive Protein Aksvk-2-Nkvelqouo PEP Interpretation Triglycerides Lipase HDL Cholesterol PTH Intact Arterial Blood Glucose Arterial Blood Ionized Calcium Urine WBC (Auto) Urine Creatinine Urine Total Protein ZINA Screen Crossmatch 03/01/20 03/01/20 03/01/20 11:06 16:22 18:12 WBC 30.5 H Hgb 6.2 L RBC 2.92 L Hct 20.8 L MCV 71 L MCH 21 L RDW 18.2 H Plt Count 560 H Lymph % (Auto) Lymph # [place] % (Auto) [place] # Eos % (Auto) Lymph # (Auto) [place] # (Auto) Eos # (Auto) Seg Neutrophils % Seg Neutrophils # Seg Neuts % (Manual) 79.0 H Lymphocytes % (Manual) 3.0 L Monocytes % (Manual) Nucleated RBC % Seg Neutrophils # Man 24.1 H Lymphocytes # (Manual) 0.9 L Monocytes # (Manual) 2.1 H Eosinophils # (Manual) Basophils # (Manual) ABG pH POC ABG pCO2 POC ABG pO2 ABG pO2 ABG HCO3 ABG O2 Saturation ABG Base Excess ABG Hemoglobin ABG Oxyhemoglobin ABG Sodium ABG Glucose Oxyhemoglobin Sodium Potassium 5.3 H D Chloride Carbon Dioxide 11 L BUN 77 H Creatinine 5.0 H Glucose 54 L POC Glucose 121 H Calcium Phosphorus Magnesium Direct Bilirubin AST Alkaline Phosphatase Albumin 3.0 L Troponin T C-Reactive Protein 36.50 H Lhqlg-8-Ebxrzlryw PEP Interpretation Triglycerides Lipase HDL Cholesterol PTH Intact Arterial Blood Glucose Arterial Blood Ionized Calcium Urine WBC (Auto) Urine Creatinine Urine Total Protein ZINA Screen Crossmatch 03/01/20 03/01/20 03/01/20 18:30 23:37 Unknown WBC Hgb RBC Hct MCV MCH RDW Plt Count Lymph % (Auto) Lymph # [place] % (Auto) [place] # Eos % (Auto) Lymph # (Auto) [place] # (Auto) Eos # (Auto) Seg Neutrophils % Seg Neutrophils # Seg Neuts % (Manual) Lymphocytes % (Manual) Monocytes % (Manual) Nucleated RBC % Seg Neutrophils # Man Lymphocytes # (Manual) Monocytes # (Manual) Eosinophils # (Manual) Basophils # (Manual) ABG pH POC ABG pCO2 POC ABG pO2 ABG pO2 ABG HCO3 ABG O2 Saturation ABG Base Excess ABG Hemoglobin ABG Oxyhemoglobin ABG Sodium ABG Glucose Oxyhemoglobin Sodium Potassium Chloride Carbon Dioxide BUN Creatinine Glucose POC Glucose 125 H Calcium Phosphorus Magnesium Direct Bilirubin AST Alkaline Phosphatase Albumin Troponin T C-Reactive Protein Xmmlp-7-Ifhgpsuks PEP Interpretation Triglycerides Lipase 297 H HDL Cholesterol PTH Intact Arterial Blood Glucose Arterial Blood Ionized Calcium Urine WBC (Auto) Urine Creatinine Urine Total Protein ZINA Screen Crossmatch See Detail 03/02/20 03/02/20 03/02/20 04:00 05:36 05:36 WBC 26.0 H Hgb 7.8 L RBC 3.26 L Hct 24.2 L MCV 74 L MCH 24 L RDW 21.3 H Plt Count 508 H Lymph % (Auto) Lymph # [place] % (Auto) [place] # Eos % (Auto) Lymph # (Auto) [place] # (Auto) Eos # (Auto) Seg Neutrophils % Seg Neutrophils # Seg Neuts % (Manual) 86.0 H Lymphocytes % (Manual) 4.0 L Monocytes % (Manual) Nucleated RBC % 2.0 H Seg Neutrophils # Man 22.4 H Lymphocytes # (Manual) 1.0 L Monocytes # (Manual) Eosinophils # (Manual) Basophils # (Manual) ABG pH POC ABG pCO2 27.8 L POC ABG pO2 ABG pO2 ABG HCO3 ABG O2 Saturation ABG Base Excess ABG Hemoglobin 8 L ABG Oxyhemoglobin ABG Sodium ABG Glucose Oxyhemoglobin Sodium Potassium Chloride Carbon Dioxide 17 L BUN 85 H Creatinine 5.6 H Glucose 109 H POC Glucose Calcium Phosphorus Magnesium 2.50 H Direct Bilirubin AST Alkaline Phosphatase Albumin 2.3 L Troponin T C-Reactive Protein Lmllz-4-Kpflykpta PEP Interpretation Triglycerides Lipase HDL Cholesterol PTH Intact Arterial Blood Glucose Arterial Blood Ionized Calcium Urine WBC (Auto) Urine Creatinine Urine Total Protein ZIAN Screen Crossmatch 03/03/20 03/03/20 03/03/20 04:00 04:36 04:36 WBC Hgb RBC Hct MCV MCH RDW Plt Count Lymph % (Auto) Lymph # [place] % (Auto) [place] # Eos % (Auto) Lymph # (Auto) [place] # (Auto) Eos # (Auto) Seg Neutrophils % Seg Neutrophils # Seg Neuts % (Manual) Lymphocytes % (Manual) Monocytes % (Manual) Nucleated RBC % Seg Neutrophils # Man Lymphocytes # (Manual) Monocytes # (Manual) Eosinophils # (Manual) Basophils # (Manual) ABG pH POC ABG pCO2 31.8 L POC ABG pO2 ABG pO2 ABG HCO3 ABG O2 Saturation ABG Base Excess ABG Hemoglobin 8.6 L ABG Oxyhemoglobin ABG Sodium ABG Glucose Oxyhemoglobin Sodium 147 H Potassium Chloride 108.4 H Carbon Dioxide 16 L BUN 87 H Creatinine 6.2 H Glucose POC Glucose Calcium Phosphorus Magnesium 2.50 H Direct Bilirubin 1.0 H AST Alkaline Phosphatase Albumin 2.4 L Troponin T C-Reactive Protein Cmywc-2-Hxdnymxpv PEP Interpretation Triglycerides Lipase 119 H HDL Cholesterol PTH Intact Arterial Blood Glucose Arterial Blood Ionized Calcium Urine WBC (Auto) Urine Creatinine Urine Total Protein ZINA Screen Crossmatch 03/03/20 03/03/20 03/03/20 04:36 12:48 17:48 WBC 28.0 H Hgb 8.1 L RBC 3.41 L Hct 25.3 L MCV 74 L MCH 24 L RDW 20.8 H Plt Count 557 H Lymph % (Auto) Lymph # [place] % (Auto) [place] # Eos % (Auto) Lymph # (Auto) [place] # (Auto) Eos # (Auto) Seg Neutrophils % Seg Neutrophils # Seg Neuts % (Manual) 82.0 H Lymphocytes % (Manual) 4.0 L Monocytes % (Manual) Nucleated RBC % Seg Neutrophils # Man 23.0 H Lymphocytes # (Manual) 1.1 L Monocytes # (Manual) 2.0 H Eosinophils # (Manual) Basophils # (Manual) ABG pH POC ABG pCO2 POC ABG pO2 ABG pO2 ABG HCO3 ABG O2 Saturation ABG Base Excess ABG Hemoglobin ABG Oxyhemoglobin ABG Sodium ABG Glucose Oxyhemoglobin Sodium Potassium Chloride Carbon Dioxide BUN Creatinine Glucose POC Glucose 131 H 113 H Calcium Phosphorus Magnesium Direct Bilirubin AST Alkaline Phosphatase Albumin Troponin T C-Reactive Protein Phskn-1-Pdskxaadf PEP Interpretation Triglycerides Lipase HDL Cholesterol PTH Intact Arterial Blood Glucose Arterial Blood Ionized Calcium Urine WBC (Auto) Urine Creatinine Urine Total Protein ZINA Screen Crossmatch 03/03/20 03/04/20 03/04/20 23:43 03:43 04:05 WBC Hgb RBC Hct MCV MCH RDW Plt Count Lymph % (Auto) Lymph # [place] % (Auto) [place] # Eos % (Auto) Lymph # (Auto) [place] # (Auto) Eos # (Auto) Seg Neutrophils % Seg Neutrophils # Seg Neuts % (Manual) Lymphocytes % (Manual) Monocytes % (Manual) Nucleated RBC % Seg Neutrophils # Man Lymphocytes # (Manual) Monocytes # (Manual) Eosinophils # (Manual) Basophils # (Manual) ABG pH POC ABG pCO2 POC ABG pO2 ABG pO2 57.4 L ABG HCO3 27.2 H ABG O2 Saturation 88.6 L ABG Base Excess ABG Hemoglobin ABG Oxyhemoglobin ABG Sodium ABG Glucose Oxyhemoglobin Sodium Potassium 3.3 L Chloride Carbon Dioxide BUN 65 H Creatinine 5.3 H Glucose 152 H POC Glucose 149 H Calcium Phosphorus Magnesium Direct Bilirubin 0.7 H AST Alkaline Phosphatase Albumin 2.5 L Troponin T C-Reactive Protein Vdijw-0-Qqpzvahle PEP Interpretation Triglycerides Lipase HDL Cholesterol PTH Intact Arterial Blood Glucose Arterial Blood Ionized Calcium Urine WBC (Auto) Urine Creatinine Urine Total Protein ZINA Screen Crossmatch 03/04/20 03/04/20 03/04/20 04:05 05:26 12:21 WBC 30.1 H Hgb 8.2 L RBC 3.44 L Hct 25.2 L MCV 73 L MCH 24 L RDW 20.7 H Plt Count 554 H Lymph % (Auto) 3.3 L Lymph # [place] % (Auto) [place] # Eos % (Auto) Lymph # (Auto) 1.0 L [place] # (Auto) 2.0 H Eos # (Auto) Seg Neutrophils % 88.6 H Seg Neutrophils # 26.6 H Seg Neuts % (Manual) Lymphocytes % (Manual) Monocytes % (Manual) Nucleated RBC % Seg Neutrophils # Man Lymphocytes # (Manual) Monocytes # (Manual) Eosinophils # (Manual) Basophils # (Manual) ABG pH POC ABG pCO2 POC ABG pO2 ABG pO2 ABG HCO3 ABG O2 Saturation ABG Base Excess ABG Hemoglobin ABG Oxyhemoglobin ABG Sodium ABG Glucose Oxyhemoglobin Sodium Potassium Chloride Carbon Dioxide BUN Creatinine Glucose POC Glucose 136 H 155 H Calcium Phosphorus Magnesium Direct Bilirubin AST Alkaline Phosphatase Albumin Troponin T C-Reactive Protein Woodk-5-Fdhgdapcu PEP Interpretation Triglycerides Lipase HDL Cholesterol PTH Intact Arterial Blood Glucose Arterial Blood Ionized Calcium Urine WBC (Auto) Urine Creatinine Urine Total Protein ZINA Screen Crossmatch 03/04/20 03/04/20 03/04/20 18:02 19:00 23:24 WBC Hgb RBC Hct MCV MCH RDW Plt Count Lymph % (Auto) Lymph # [place] % (Auto) [place] # Eos % (Auto) Lymph # (Auto) [place] # (Auto) Eos # (Auto) Seg Neutrophils % Seg Neutrophils # Seg Neuts % (Manual) Lymphocytes % (Manual) Monocytes % (Manual) Nucleated RBC % Seg Neutrophils # Man Lymphocytes # (Manual) Monocytes # (Manual) Eosinophils # (Manual) Basophils # (Manual) ABG pH POC ABG pCO2 POC ABG pO2 ABG pO2 ABG HCO3 ABG O2 Saturation ABG Base Excess ABG Hemoglobin ABG Oxyhemoglobin ABG Sodium ABG Glucose Oxyhemoglobin Sodium Potassium Chloride Carbon Dioxide BUN Creatinine Glucose POC Glucose 124 H 115 H Calcium Phosphorus Magnesium Direct Bilirubin AST Alkaline Phosphatase Albumin Troponin T C-Reactive Protein Kjxqo-9-Vsobygaem PEP Interpretation Triglycerides Lipase 72 H HDL Cholesterol PTH Intact Arterial Blood Glucose Arterial Blood Ionized Calcium Urine WBC (Auto) Urine Creatinine Urine Total Protein ZINA Screen Crossmatch 03/05/20 03/05/20 03/05/20 05:04 05:29 06:00 WBC Hgb RBC Hct MCV MCH RDW Plt Count Lymph % (Auto) Lymph # [place] % (Auto) [place] # Eos % (Auto) Lymph # (Auto) [place] # (Auto) Eos # (Auto) Seg Neutrophils % Seg Neutrophils # Seg Neuts % (Manual) Lymphocytes % (Manual) Monocytes % (Manual) Nucleated RBC % Seg Neutrophils # Man Lymphocytes # (Manual) Monocytes # (Manual) Eosinophils # (Manual) Basophils # (Manual) ABG pH POC ABG pCO2 POC ABG pO2 ABG pO2 62.5 L ABG HCO3 26.4 H ABG O2 Saturation 92.1 L ABG Base Excess ABG Hemoglobin 9.3 L ABG Oxyhemoglobin ABG Sodium ABG Glucose Oxyhemoglobin 89.9 L Sodium Potassium Chloride Carbon Dioxide BUN 54 H Creatinine 5.4 H Glucose 125 H POC Glucose 134 H Calcium Phosphorus Magnesium Direct Bilirubin 0.6 H AST Alkaline Phosphatase 133 H Albumin 2.5 L Troponin T C-Reactive Protein Armde-5-Jbfdhwdeh PEP Interpretation Triglycerides Lipase HDL Cholesterol PTH Intact Arterial Blood Glucose Arterial Blood Ionized Calcium Urine WBC (Auto) Urine Creatinine Urine Total Protein ZINA Screen Crossmatch 03/05/20 03/05/20 03/05/20 12:18 18:01 21:39 WBC Hgb RBC Hct MCV MCH RDW Plt Count Lymph % (Auto) Lymph # [place] % (Auto) [place] # Eos % (Auto) Lymph # (Auto) [place] # (Auto) Eos # (Auto) Seg Neutrophils % Seg Neutrophils # Seg Neuts % (Manual) Lymphocytes % (Manual) Monocytes % (Manual) Nucleated RBC % Seg Neutrophils # Man Lymphocytes # (Manual) Monocytes # (Manual) Eosinophils # (Manual) Basophils # (Manual) ABG pH POC ABG pCO2 POC ABG pO2 ABG pO2 ABG HCO3 ABG O2 Saturation ABG Base Excess ABG Hemoglobin ABG Oxyhemoglobin ABG Sodium ABG Glucose Oxyhemoglobin Sodium Potassium Chloride Carbon Dioxide BUN Creatinine Glucose POC Glucose 118 H 108 H 123 H Calcium Phosphorus Magnesium Direct Bilirubin AST Alkaline Phosphatase Albumin Troponin T C-Reactive Protein Grfvr-0-Glcnmqoqx PEP Interpretation Triglycerides Lipase HDL Cholesterol PTH Intact Arterial Blood Glucose Arterial Blood Ionized Calcium Urine WBC (Auto) Urine Creatinine Urine Total Protein ZINA Screen Crossmatch 03/06/20 03/06/20 03/06/20 04:40 04:41 05:44 WBC Hgb RBC Hct MCV MCH RDW Plt Count Lymph % (Auto) Lymph # [place] % (Auto) [place] # Eos % (Auto) Lymph # (Auto) [place] # (Auto) Eos # (Auto) Seg Neutrophils % Seg Neutrophils # Seg Neuts % (Manual) Lymphocytes % (Manual) Monocytes % (Manual) Nucleated RBC % Seg Neutrophils # Man Lymphocytes # (Manual) Monocytes # (Manual) Eosinophils # (Manual) Basophils # (Manual) ABG pH POC ABG pCO2 POC ABG pO2 64.9 L ABG pO2 ABG HCO3 ABG O2 Saturation ABG Base Excess ABG Hemoglobin 9.9 L ABG Oxyhemoglobin 90.5 L ABG Sodium ABG Glucose Oxyhemoglobin Sodium Potassium Chloride 94.7 L Carbon Dioxide BUN 70 H Creatinine 7.1 H Glucose 113 H POC Glucose 134 H Calcium Phosphorus Magnesium Direct Bilirubin AST Alkaline Phosphatase Albumin Troponin T C-Reactive Protein Sczaz-3-Yzanrrhgs PEP Interpretation Triglycerides Lipase HDL Cholesterol PTH Intact Arterial Blood Glucose Arterial Blood Ionized Calcium Urine WBC (Auto) Urine Creatinine Urine Total Protein ZINA Screen Crossmatch 03/06/20 03/06/20 03/06/20 08:54 11:56 18:19 WBC 31.5 H Hgb 8.7 L RBC Hct 27.8 L MCV 75 L MCH 23 L RDW 21.2 H Plt Count 516 H Lymph % (Auto) Lymph # [place] % (Auto) [place] # Eos % (Auto) Lymph # (Auto) [place] # (Auto) Eos # (Auto) Seg Neutrophils % Seg Neutrophils # Seg Neuts % (Manual) 93.0 H Lymphocytes % (Manual) 2.0 L Monocytes % (Manual) Nucleated RBC % Seg Neutrophils # Man 29.3 H Lymphocytes # (Manual) 0.6 L Monocytes # (Manual) Eosinophils # (Manual) 0.6 H Basophils # (Manual) ABG pH POC ABG pCO2 POC ABG pO2 ABG pO2 ABG HCO3 ABG O2 Saturation ABG Base Excess ABG Hemoglobin ABG Oxyhemoglobin ABG Sodium ABG Glucose Oxyhemoglobin Sodium Potassium Chloride Carbon Dioxide BUN Creatinine Glucose POC Glucose 131 H 117 H Calcium Phosphorus Magnesium Direct Bilirubin AST Alkaline Phosphatase Albumin Troponin T C-Reactive Protein Eevpp-8-Rgjudnpka PEP Interpretation Triglycerides Lipase HDL Cholesterol PTH Intact Arterial Blood Glucose Arterial Blood Ionized Calcium Urine WBC (Auto) Urine Creatinine Urine Total Protein ZINA Screen Crossmatch 03/07/20 03/07/20 03/07/20 04:42 05:03 05:03 WBC 26.9 H Hgb 8.3 L RBC 3.50 L Hct 26.6 L MCV 76 L MCH 24 L RDW 21.3 H Plt Count 470 H Lymph % (Auto) Lymph # [place] % (Auto) [place] # Eos % (Auto) Lymph # (Auto) [place] # (Auto) Eos # (Auto) Seg Neutrophils % Seg Neutrophils # Seg Neuts % (Manual) 89.0 H Lymphocytes % (Manual) 4.0 L Monocytes % (Manual) Nucleated RBC % Seg Neutrophils # Man 23.9 H Lymphocytes # (Manual) 1.1 L Monocytes # (Manual) Eosinophils # (Manual) Basophils # (Manual) 0.3 H ABG pH POC ABG pCO2 POC ABG pO2 68.3 L ABG pO2 ABG HCO3 ABG O2 Saturation ABG Base Excess ABG Hemoglobin 9.3 L ABG Oxyhemoglobin ABG Sodium ABG Glucose 112 H Oxyhemoglobin Sodium Potassium Chloride 94.8 L Carbon Dioxide BUN 52 H Creatinine 6.3 H Glucose 106 H POC Glucose Calcium Phosphorus Magnesium Direct Bilirubin AST Alkaline Phosphatase 132 H Albumin 2.5 L Troponin T C-Reactive Protein Wlzyq-4-Cgmmdzjyu PEP Interpretation Triglycerides Lipase HDL Cholesterol PTH Intact Arterial Blood Glucose 112 H Arterial Blood Ionized Calcium Urine WBC (Auto) Urine Creatinine Urine Total Protein ZINA Screen Crossmatch 03/07/20 03/07/20 03/07/20 12:08 18:05 23:29 WBC Hgb RBC Hct MCV MCH RDW Plt Count Lymph % (Auto) Lymph # [place] % (Auto) [place] # Eos % (Auto) Lymph # (Auto) [place] # (Auto) Eos # (Auto) Seg Neutrophils % Seg Neutrophils # Seg Neuts % (Manual) Lymphocytes % (Manual) Monocytes % (Manual) Nucleated RBC % Seg Neutrophils # Man Lymphocytes # (Manual) Monocytes # (Manual) Eosinophils # (Manual) Basophils # (Manual) ABG pH POC ABG pCO2 POC ABG pO2 ABG pO2 ABG HCO3 ABG O2 Saturation ABG Base Excess ABG Hemoglobin ABG Oxyhemoglobin ABG Sodium ABG Glucose Oxyhemoglobin Sodium Potassium Chloride Carbon Dioxide BUN Creatinine Glucose POC Glucose 114 H 111 H 118 H Calcium Phosphorus Magnesium Direct Bilirubin AST Alkaline Phosphatase Albumin Troponin T C-Reactive Protein Iwfrr-2-Fuuomueyf PEP Interpretation Triglycerides Lipase HDL Cholesterol PTH Intact Arterial Blood Glucose Arterial Blood Ionized Calcium Urine WBC (Auto) Urine Creatinine Urine Total Protein ZINA Screen Crossmatch 03/08/20 03/08/20 03/08/20 04:50 17:45 23:53 WBC Hgb RBC Hct MCV MCH RDW Plt Count Lymph % (Auto) Lymph # [place] % (Auto) [place] # Eos % (Auto) Lymph # (Auto) [place] # (Auto) Eos # (Auto) Seg Neutrophils % Seg Neutrophils # Seg Neuts % (Manual) Lymphocytes % (Manual) Monocytes % (Manual) Nucleated RBC % Seg Neutrophils # Man Lymphocytes # (Manual) Monocytes # (Manual) Eosinophils # (Manual) Basophils # (Manual) ABG pH POC ABG pCO2 POC ABG pO2 ABG pO2 ABG HCO3 ABG O2 Saturation ABG Base Excess ABG Hemoglobin ABG Oxyhemoglobin ABG Sodium ABG Glucose Oxyhemoglobin Sodium Potassium Chloride 95.5 L Carbon Dioxide BUN 52 H Creatinine 6.2 H Glucose 109 H POC Glucose 106 H 106 H Calcium Phosphorus Magnesium Direct Bilirubin AST Alkaline Phosphatase Albumin Troponin T C-Reactive Protein Rstaa-1-Mpgoggsof PEP Interpretation Triglycerides Lipase HDL Cholesterol PTH Intact Arterial Blood Glucose Arterial Blood Ionized Calcium Urine WBC (Auto) Urine Creatinine Urine Total Protein ZINA Screen Crossmatch 03/09/20 03/09/20 03/09/20 04:00 07:53 18:22 WBC 21.9 H Hgb 7.5 L RBC 3.27 L Hct 24.3 L MCV 74 L MCH 23 L RDW 20.9 H Plt Count 488 H Lymph % (Auto) Lymph # [place] % (Auto) [place] # Eos % (Auto) Lymph # (Auto) [place] # (Auto) Eos # (Auto) Seg Neutrophils % Seg Neutrophils # Seg Neuts % (Manual) Lymphocytes % (Manual) Monocytes % (Manual) Nucleated RBC % Seg Neutrophils # Man Lymphocytes # (Manual) Monocytes # (Manual) Eosinophils # (Manual) Basophils # (Manual) ABG pH POC ABG pCO2 POC ABG pO2 ABG pO2 ABG HCO3 ABG O2 Saturation ABG Base Excess ABG Hemoglobin ABG Oxyhemoglobin ABG Sodium ABG Glucose Oxyhemoglobin Sodium Potassium Chloride 92.8 L Carbon Dioxide BUN 74 H Creatinine 7.8 H Glucose POC Glucose 114 H Calcium Phosphorus Magnesium Direct Bilirubin AST Alkaline Phosphatase Albumin Troponin T C-Reactive Protein Hqvjd-0-Npaxywqmx PEP Interpretation Triglycerides Lipase HDL Cholesterol PTH Intact Arterial Blood Glucose Arterial Blood Ionized Calcium Urine WBC (Auto) Urine Creatinine Urine Total Protein ZINA Screen Crossmatch 03/10/20 03/10/20 03/10/20 04:37 04:37 09:53 WBC 16.0 H Hgb 7.1 L RBC 2.99 L Hct 22.4 L MCV 75 L MCH 24 L RDW 21.5 H Plt Count Lymph % (Auto) 9.2 L Lymph # [place] % (Auto) 9.9 H [place] # Eos % (Auto) Lymph # (Auto) [place] # (Auto) 1.6 H Eos # (Auto) Seg Neutrophils % 79.2 H Seg Neutrophils # 12.6 H Seg Neuts % (Manual) Lymphocytes % (Manual) Monocytes % (Manual) Nucleated RBC % Seg Neutrophils # Man Lymphocytes # (Manual) Monocytes # (Manual) Eosinophils # (Manual) Basophils # (Manual) ABG pH POC ABG pCO2 POC ABG pO2 ABG pO2 ABG HCO3 ABG O2 Saturation ABG Base Excess ABG Hemoglobin 7.7 L ABG Oxyhemoglobin ABG Sodium 134.7 L ABG Glucose 103 H Oxyhemoglobin Sodium Potassium Chloride Carbon Dioxide BUN 45 H Creatinine 5.6 H Glucose 108 H POC Glucose Calcium Phosphorus Magnesium Direct Bilirubin AST Alkaline Phosphatase Albumin Troponin T C-Reactive Protein Hbnwl-7-Zxaqxwejl PEP Interpretation Triglycerides Lipase HDL Cholesterol PTH Intact Arterial Blood Glucose 103 H Arterial Blood Ionized Calcium Urine WBC (Auto) Urine Creatinine Urine Total Protein ZINA Screen Crossmatch 03/10/20 03/11/20 03/11/20 23:46 02:52 03:25 WBC Hgb RBC Hct MCV MCH RDW Plt Count Lymph % (Auto) Lymph # [place] % (Auto) [place] # Eos % (Auto) Lymph # (Auto) [place] # (Auto) Eos # (Auto) Seg Neutrophils % Seg Neutrophils # Seg Neuts % (Manual) Lymphocytes % (Manual) Monocytes % (Manual) Nucleated RBC % Seg Neutrophils # Man Lymphocytes # (Manual) Monocytes # (Manual) Eosinophils # (Manual) Basophils # (Manual) ABG pH POC ABG pCO2 POC ABG pO2 77.5 L ABG pO2 ABG HCO3 ABG O2 Saturation ABG Base Excess ABG Hemoglobin 8.0 L ABG Oxyhemoglobin ABG Sodium 135.8 L ABG Glucose Oxyhemoglobin Sodium Potassium Chloride Carbon Dioxide BUN Creatinine Glucose POC Glucose 116 H Calcium Phosphorus Magnesium Direct Bilirubin AST Alkaline Phosphatase Albumin Troponin T 0.093 H C-Reactive Protein Tmzlc-6-Jbddczioy PEP Interpretation Triglycerides Lipase HDL Cholesterol PTH Intact Arterial Blood Glucose Arterial Blood Ionized Calcium Urine WBC (Auto) Urine Creatinine Urine Total Protein ZINA Screen Crossmatch 03/11/20 03/11/20 03/11/20 04:32 04:32 06:16 WBC 22.4 H Hgb 7.8 L RBC 3.32 L Hct 25.0 L MCV 75 L MCH 24 L RDW 21.4 H Plt Count 553 H Lymph % (Auto) Lymph # [place] % (Auto) [place] # Eos % (Auto) Lymph # (Auto) [place] # (Auto) Eos # (Auto) Seg Neutrophils % Seg Neutrophils # Seg Neuts % (Manual) 81.0 H Lymphocytes % (Manual) 8.0 L Monocytes % (Manual) 8.0 H Nucleated RBC % Seg Neutrophils # Man 18.1 H Lymphocytes # (Manual) Monocytes # (Manual) 1.8 H Eosinophils # (Manual) Basophils # (Manual) 0.2 H ABG pH POC ABG pCO2 POC ABG pO2 ABG pO2 ABG HCO3 ABG O2 Saturation ABG Base Excess ABG Hemoglobin ABG Oxyhemoglobin ABG Sodium ABG Glucose Oxyhemoglobin Sodium Potassium Chloride 96.6 L Carbon Dioxide BUN 64 H Creatinine 6.5 H Glucose 101 H POC Glucose 142 H Calcium Phosphorus Magnesium Direct Bilirubin AST 41 H Alkaline Phosphatase Albumin 2.7 L Troponin T C-Reactive Protein Ltfby-6-Pgjoxyomv PEP Interpretation Triglycerides Lipase HDL Cholesterol PTH Intact Arterial Blood Glucose Arterial Blood Ionized Calcium Urine WBC (Auto) Urine Creatinine Urine Total Protein ZINA Screen Crossmatch 03/11/20 03/11/20 03/11/20 06:50 07:31 14:31 WBC Hgb 7.7 L RBC Hct 23.7 L MCV MCH RDW Plt Count 553 H Lymph % (Auto) Lymph # [place] % (Auto) [place] # Eos % (Auto) Lymph # (Auto) [place] # (Auto) Eos # (Auto) Seg Neutrophils % Seg Neutrophils # Seg Neuts % (Manual) Lymphocytes % (Manual) Monocytes % (Manual) Nucleated RBC % Seg Neutrophils # Man Lymphocytes # (Manual) Monocytes # (Manual) Eosinophils # (Manual) Basophils # (Manual) ABG pH POC ABG pCO2 POC ABG pO2 ABG pO2 67.8 L ABG HCO3 ABG O2 Saturation ABG Base Excess ABG Hemoglobin ABG Oxyhemoglobin ABG Sodium ABG Glucose Oxyhemoglobin Sodium Potassium Chloride Carbon Dioxide BUN Creatinine Glucose POC Glucose Calcium Phosphorus Magnesium Direct Bilirubin AST Alkaline Phosphatase Albumin Troponin T 0.085 H C-Reactive Protein Qtpwo-7-Rcvotqzoy PEP Interpretation Triglycerides 247 H Lipase HDL Cholesterol 28 L PTH Intact Arterial Blood Glucose Arterial Blood Ionized Calcium Urine WBC (Auto) Urine Creatinine Urine Total Protein ZINA Screen Crossmatch 03/12/20 03/12/20 03/13/20 03:46 17:33 04:00 WBC Hgb 6.6 L RBC Hct 19.5 L* MCV MCH RDW Plt Count 603 H Lymph % (Auto) Lymph # [place] % (Auto) [place] # Eos % (Auto) Lymph # (Auto) [place] # (Auto) Eos # (Auto) Seg Neutrophils % Seg Neutrophils # Seg Neuts % (Manual) Lymphocytes % (Manual) Monocytes % (Manual) Nucleated RBC % Seg Neutrophils # Man Lymphocytes # (Manual) Monocytes # (Manual) Eosinophils # (Manual) Basophils # (Manual) ABG pH POC ABG pCO2 POC ABG pO2 78.3 L ABG pO2 ABG HCO3 ABG O2 Saturation ABG Base Excess ABG Hemoglobin 7.9 L ABG Oxyhemoglobin ABG Sodium 134.8 L ABG Glucose Oxyhemoglobin Sodium Potassium Chloride Carbon Dioxide BUN Creatinine Glucose POC Glucose 107 H Calcium Phosphorus Magnesium Direct Bilirubin AST Alkaline Phosphatase Albumin Troponin T C-Reactive Protein Malsk-0-Ydqyaygsj PEP Interpretation Triglycerides Lipase HDL Cholesterol PTH Intact Arterial Blood Glucose Arterial Blood Ionized Calcium Urine WBC (Auto) Urine Creatinine Urine Total Protein ZINA Screen Crossmatch 03/13/20 03/13/20 03/13/20 04:00 08:20 08:45 WBC Hgb 7.0 L RBC Hct 21.8 L MCV MCH RDW Plt Count Lymph % (Auto) Lymph # [place] % (Auto) [place] # Eos % (Auto) Lymph # (Auto) [place] # (Auto) Eos # (Auto) Seg Neutrophils % Seg Neutrophils # Seg Neuts % (Manual) Lymphocytes % (Manual) Monocytes % (Manual) Nucleated RBC % Seg Neutrophils # Man Lymphocytes # (Manual) Monocytes # (Manual) Eosinophils # (Manual) Basophils # (Manual) ABG pH POC ABG pCO2 POC ABG pO2 ABG pO2 ABG HCO3 27.4 H ABG O2 Saturation ABG Base Excess ABG Hemoglobin 8.7 L ABG Oxyhemoglobin ABG Sodium ABG Glucose Oxyhemoglobin 94.6 L Sodium Potassium Chloride Carbon Dioxide BUN Creatinine Glucose POC Glucose Calcium Phosphorus Magnesium Direct Bilirubin AST Alkaline Phosphatase Albumin Troponin T C-Reactive Protein Twrrt-3-Jqnnkjqvx PEP Interpretation Triglycerides Lipase HDL Cholesterol PTH Intact Arterial Blood Glucose Arterial Blood Ionized Calcium Urine WBC (Auto) Urine Creatinine Urine Total Protein ZINA Screen Crossmatch See Detail 03/13/20 03/13/20 03/14/20 14:23 15:38 06:15 WBC Hgb RBC Hct MCV MCH RDW Plt Count Lymph % (Auto) Lymph # [place] % (Auto) [place] # Eos % (Auto) Lymph # (Auto) [place] # (Auto) Eos # (Auto) Seg Neutrophils % Seg Neutrophils # Seg Neuts % (Manual) Lymphocytes % (Manual) Monocytes % (Manual) Nucleated RBC % Seg Neutrophils # Man Lymphocytes # (Manual) Monocytes # (Manual) Eosinophils # (Manual) Basophils # (Manual) ABG pH 7.462 H POC ABG pCO2 POC ABG pO2 75.1 L ABG pO2 ABG HCO3 ABG O2 Saturation ABG Base Excess ABG Hemoglobin 8.9 L ABG Oxyhemoglobin ABG Sodium 135.9 L ABG Glucose Oxyhemoglobin Sodium Potassium Chloride 94.2 L 93.1 L Carbon Dioxide BUN 32 H 45 H Creatinine 3.6 H 4.9 H Glucose POC Glucose Calcium Phosphorus Magnesium Direct Bilirubin AST Alkaline Phosphatase Albumin Troponin T C-Reactive Protein Tkxja-8-Ouvopxtgc PEP Interpretation Triglycerides Lipase HDL Cholesterol PTH Intact Arterial Blood Glucose Arterial Blood Ionized Calcium 4.5 L Urine WBC (Auto) Urine Creatinine Urine Total Protein ZINA Screen Crossmatch 03/14/20 03/14/20 03/15/20 06:15 Unknown 04:31 WBC 13.7 H Hgb 7.8 L 7.7 L 8.1 L RBC 3.13 L Hct 22.4 L 23.8 L 24.7 L MCV 76 L MCH 25 L RDW 21.6 H Plt Count 662 H 729 H Lymph % (Auto) Lymph # [place] % (Auto) [place] # Eos % (Auto) Lymph # (Auto) [place] # (Auto) 1.0 H Eos # (Auto) 0.6 H Seg Neutrophils % 71.5 H Seg Neutrophils # 9.8 H Seg Neuts % (Manual) Lymphocytes % (Manual) Monocytes % (Manual) Nucleated RBC % Seg Neutrophils # Man Lymphocytes # (Manual) Monocytes # (Manual) Eosinophils # (Manual) Basophils # (Manual) ABG pH POC ABG pCO2 POC ABG pO2 ABG pO2 ABG HCO3 ABG O2 Saturation ABG Base Excess ABG Hemoglobin ABG Oxyhemoglobin ABG Sodium ABG Glucose Oxyhemoglobin Sodium Potassium Chloride Carbon Dioxide BUN Creatinine Glucose POC Glucose Calcium Phosphorus Magnesium Direct Bilirubin AST Alkaline Phosphatase Albumin Troponin T C-Reactive Protein Tdhcy-8-Tsuhwrgaq PEP Interpretation Triglycerides Lipase HDL Cholesterol PTH Intact Arterial Blood Glucose Arterial Blood Ionized Calcium Urine WBC (Auto) Urine Creatinine Urine Total Protein ZINA Screen Crossmatch 03/15/20 03/15/20 03/16/20 04:31 13:20 00:17 WBC Hgb RBC Hct MCV MCH RDW Plt Count Lymph % (Auto) Lymph # [place] % (Auto) [place] # Eos % (Auto) Lymph # (Auto) [place] # (Auto) Eos # (Auto) Seg Neutrophils % Seg Neutrophils # Seg Neuts % (Manual) Lymphocytes % (Manual) Monocytes % (Manual) Nucleated RBC % Seg Neutrophils # Man Lymphocytes # (Manual) Monocytes # (Manual) Eosinophils # (Manual) Basophils # (Manual) ABG pH POC ABG pCO2 POC ABG pO2 ABG pO2 ABG HCO3 28.9 H ABG O2 Saturation ABG Base Excess 3.9 H ABG Hemoglobin 8.6 L ABG Oxyhemoglobin ABG Sodium ABG Glucose Oxyhemoglobin 94.9 L Sodium Potassium Chloride 95.9 L Carbon Dioxide BUN 60 H Creatinine 5.6 H Glucose POC Glucose 111 H Calcium Phosphorus Magnesium Direct Bilirubin AST Alkaline Phosphatase Albumin Troponin T C-Reactive Protein Lrsix-9-Fgmyxddaz PEP Interpretation Triglycerides Lipase HDL Cholesterol PTH Intact Arterial Blood Glucose Arterial Blood Ionized Calcium Urine WBC (Auto) Urine Creatinine Urine Total Protein ZINA Screen Crossmatch 03/16/20 03/16/20 03/17/20 04:52 04:52 04:55 WBC 13.9 H Hgb 8.3 L 9.1 L RBC 3.35 L Hct 25.8 L 28.2 L MCV 77 L MCH 25 L RDW 22.1 H Plt Count 799 H 818 H Lymph % (Auto) 11.1 L Lymph # [place] % (Auto) [place] # Eos % (Auto) 4.4 H Lymph # (Auto) [place] # (Auto) 0.9 H Eos # (Auto) 0.6 H Seg Neutrophils % 77.4 H Seg Neutrophils # 10.8 H Seg Neuts % (Manual) Lymphocytes % (Manual) Monocytes % (Manual) Nucleated RBC % Seg Neutrophils # Man Lymphocytes # (Manual) Monocytes # (Manual) Eosinophils # (Manual) Basophils # (Manual) ABG pH POC ABG pCO2 POC ABG pO2 ABG pO2 ABG HCO3 ABG O2 Saturation ABG Base Excess ABG Hemoglobin ABG Oxyhemoglobin ABG Sodium ABG Glucose Oxyhemoglobin Sodium Potassium Chloride 93.8 L Carbon Dioxide BUN 72 H Creatinine 5.8 H Glucose POC Glucose Calcium Phosphorus Magnesium Direct Bilirubin AST Alkaline Phosphatase Albumin 2.7 L Troponin T C-Reactive Protein Wrucr-8-Scuuhghzv PEP Interpretation Triglycerides Lipase HDL Cholesterol PTH Intact Arterial Blood Glucose Arterial Blood Ionized Calcium Urine WBC (Auto) Urine Creatinine Urine Total Protein ZINA Screen Crossmatch 03/17/20 03/18/20 04:55 10:28 WBC Hgb RBC Hct MCV MCH RDW Plt Count Lymph % (Auto) Lymph # [place] % (Auto) [place] # Eos % (Auto) Lymph # (Auto) [place] # (Auto) Eos # (Auto) Seg Neutrophils % Seg Neutrophils # Seg Neuts % (Manual) Lymphocytes % (Manual) Monocytes % (Manual) Nucleated RBC % Seg Neutrophils # Man Lymphocytes # (Manual) Monocytes # (Manual) Eosinophils # (Manual) Basophils # (Manual) ABG pH POC ABG pCO2 POC ABG pO2 ABG pO2 ABG HCO3 ABG O2 Saturation ABG Base Excess ABG Hemoglobin ABG Oxyhemoglobin ABG Sodium ABG Glucose Oxyhemoglobin Sodium Potassium Chloride 93.5 L 94.4 L Carbon Dioxide BUN 40 H 37 H Creatinine 3.8 H 3.0 H Glucose 112 H POC Glucose Calcium Phosphorus Magnesium Direct Bilirubin AST Alkaline Phosphatase Albumin Troponin T C-Reactive Protein Bcfdt-1-Papoacozh PEP Interpretation Triglycerides Lipase HDL Cholesterol PTH Intact Arterial Blood Glucose Arterial Blood Ionized Calcium Urine WBC (Auto) Urine Creatinine Urine Total Protein ZINA Screen Crossmatch Allied health notes reviewed: RT
[2020-03-18] MEDS: QUEtiapine 100 MG TAB PO SCH (21:50)
[2020-03-19] MEDS: HEPARIN 5,000 UNIT/1 ML VIAL SUB-Q SCH ×3 (05:07→21:09)
[2020-03-19] MEDS: hydrALAZINE 25 MG TAB PO SCH ×3 (05:07→21:08)
[2020-03-19 06:45] LABS: Basophils # (Auto) 0.2 K/mm3 (0.0-0.1); Basophils % (Auto) 1.1 % (0.0-1.8); Eosinophils # (Auto) 0.8 K/mm3 (0.0-0.4); Eosinophils % (Auto) 5.4 % (0.0-4.3); Hematocrit 29.3 % (30.3-42.9); Hemoglobin 9.4 gm/dl (10.1-14.3); Lymphocytes # (Auto) 2.1 K/mm3 (1.2-5.4); Lymphocytes % (Auto) 14.1 % (13.4-35.0); Mean Corpuscular HGB Conc 32 % (30-34); Mean Corpuscular Volume 78 fl (79-97); Monocytes # (Auto) 0.9 K/mm3 (0.0-0.8); Monocytes % (Auto) 5.7 % (0.0-7.3); Platelet Count 775 K/mm3 (140-440); Red Blood Count 3.75 M/mm3 (3.65-5.03); Red Cell Distribution Width 21.9 % (13.2-15.2)
[2020-03-19 06:55] LABS: Calcium 9.8 mg/dL (8.4-10.2)
[2020-03-19] MEDS: amLODIPine 10 MG TAB PO SCH (09:15)
[2020-03-19] MEDS: METOPROLOL TARTRATE 25 MG TAB PO SCH ×2 (09:15→21:08)
[2020-03-19] MEDS: ASPIRIN 325 MG TAB PO SCH (09:15)
[2020-03-19] MEDS: PANTOPRAZOLE 40 MG TAB PO SCH (09:15)
--- NOTE | 2020-03-19 09:48 | Progress Note ---
Assessment and Plan Assessment * Acute kidney injury attributed to prerenal azotemia/ATN related to pancreatitis vs NSAID induced nephropathy vs PPI --Serologies: ANCA, C3, C4 - negative; ZINA positive * Acute hypoxic respiratory failure * Chest pain --Elevated troponin * Metabolic acidosis * Acute severe pancreatitis * Fever * Accelerated hypertension - resolved * Anemia Plan: * Continue HD MWF schedule for now- UF as tolerated * Monitor SCr trend and UOP for evidence of recovery - Uncertain re: renal prognosis. Patient reports 9 year hx of hypertension, untreated at times. She reports that she was not under the consistent care of a healthcare provider. * Cardiology recommendations reviewed - conservative cardiac management for now * GI recommendations reviewed * Continue antiHTN medications * Abx per ID * Hold ACEi for now * Epogen TIW prn * Dose medications for renal function * Avoid potential nephrotoxins * follow up 24hr crcl, will need perm cath and HD unit if crcl indicates adv ckd Subjective Date of service: 03/19/20 Principal diagnosis: HTNsive urgency; Morbid obesity; Ac. pancreatitis; Abdominal pain Interval history: resting in bed today Objective - Exam Narrative Exam: General appearance: well-developed, well-nourished EENT: ATNC Respiratory: Present: Clear to Ascultation Cardiology: regular, S1S2 Gastrointestinal: normal, no tenderness, distended Integumentary: no rash, warm and dry Musculoskeletal: other (no edema) Psychiatric: cooperative - Vital Signs Vital signs: Vital Signs - 12hr 03/18/20 03/19/20 03/19/20 23:59 04:31 07:43 Temperature 98.0 F 98 F Pulse Rate 88 68 82 Respiratory 18 18 Rate Blood Pressure 150/92 Blood Pressure 151/68 [Left] O2 Sat by Pulse 95 Oximetry 03/19/20 03/19/20 07:44 08:26 Temperature 98.6 F Pulse Rate 98 H Respiratory 18 Rate Blood Pressure 161/89 Blood Pressure [Left] O2 Sat by Pulse 95 95 Oximetry - Lab 03/19/20 05:55 03/19/20 05:55 Most recent lab results ABG pH 7.420 pH Units (7.350-7.450) 03/15/20 13:20 ABG pCO2 45.5 mm Hg 03/15/20 13:20 ABG pO2 85.8 mm Hg (80.0-90.0) 03/15/20 13:20 ABG HCO3 28.9 mmol/L (20.0-26.0) H 03/15/20 13:20 ABG O2 Saturation 97.1 % (95.0-99.0) 03/15/20 13:20 Calcium 9.8 mg/dL (8.4-10.2) 03/19/20 05:55 Phosphorus 6.10 mg/dL (2.5-4.5) H 03/01/20 04:37 Magnesium 2.00 mg/dL (1.7-2.3) 03/07/20 05:03 Urine Creatinine 161.0 mg/dL (0.1-20.0) H 02/25/20 22:55 Urine Total Protein 150 mg/dL (5-11.8) H 02/25/20 22:55 Medications & Allergies - Medications Allergies/Adverse Reactions: Allergies No Known Allergies Allergy (Unverified 09/05/19 10:15) Home Medications: Home Medications Medication Instructions Recorded Confirmed Last Taken Type Amlodipine Besylate [Norvasc] 10 mg PO DAILY 09/05/19 02/24/20 09/04/19 History Furosemide [Lasix] 20 mg PO QDAY #30 tablet 09/05/19 02/24/20 Unknown Rx Lisinopril [Zestril] 5 mg PO DAILY #30 tablet 09/05/19 02/24/20 Unknown Rx Metoprolol [Lopressor TAB] 25 mg PO BID #60 tablet 09/05/19 02/24/20 Unknown Rx Active Medications: Generic Name Dose Route Start Last Admin Trade Name Freq PRN Reason Stop Dose Admin Acetaminophen 650 mg 02/26/20 16:23 03/14/20 22:03 Tylenol PO 650 mg Q4H PRN Administration Pain, Mild (1-3)/ Temp >100. Albuterol 2.5 mg 02/27/20 17:55 Proventil IH Q4HRT PRN Shortness Of Breath Amlodipine Besylate 10 mg 02/28/20 10:00 03/19/20 09:15 Amlodipine PO 10 mg QDAY INDU Administration Aspirin 325 mg 03/15/20 11:00 03/19/20 09:15 Aspirin PO 325 mg QDAY INDU Administration Dextrose 50 ml 02/29/20 08:00 03/01/20 00:20 D50w (25gm) Syringe IV 10 ml Q30MIN PRN Administration HYPOGLYCEMIA Protocol Epoetin Prosper 10,000 unit 03/12/20 10:00 03/16/20 11:58 Procrit IV 10,000 unit NIKOLAY PRN Administration hemodialysis Heparin Sodium (Porcine) 5,000 unit 03/11/20 14:00 03/19/20 05:07 Heparin SUB-Q 5,000 unit Q8HR INDU Administration Hydralazine HCl 25 mg 03/04/20 14:00 03/19/20 05:07 Apresoline PO 25 mg Q8HR INDU Administration Hydrophilic Ointment 1 applic 03/11/20 06:01 Vaseline Lip Therapy TP Q2HR PRN Dry Lips Sodium Chloride 100 mls @ 999 mls/hr 03/08/20 17:05 Nacl 0.9% IV NIKOLAY PRN Hypotension Labetalol HCl 10 mg 02/28/20 09:00 03/11/20 03:04 Labetalol IV 10 mg Q4H PRN Administration Hypertension Metoprolol Tartrate 25 mg 02/28/20 10:00 03/19/20 09:15 Metoprolol PO 25 mg BID INDU Administration Morphine Sulfate 2 mg 03/11/20 05:13 03/16/20 01:46 Morphine IV 2 mg Q4H PRN Administration Pain, Moderate (4-6) Multi-Ingred Cream/Lotion/Oil/Oint 1 applic 03/11/20 06:01 Artificial Tears Ophth Oint OU Q4HR PRN Dry Eye(s) Nitroglycerin 0.4 mg 03/11/20 05:14 Nitrostat SL .Q5MIN PRN Chest Pain Ondansetron HCl 4 mg 02/24/20 06:45 02/25/20 23:33 Zofran IV 4 mg Q8H PRN Administration Nausea And Vomiting Pantoprazole Sodium 40 mg 03/16/20 11:00 03/19/20 09:15 Protonix PO 40 mg QDAC INDU Administration Quetiapine Fumarate 100 mg 03/16/20 22:00 03/18/20 21:50 Seroquel PO 100 mg QHS INDU Administration Sodium Chloride 10 ml 02/24/20 10:00 03/19/20 09:17 Sodium Chloride Flush Syringe 10 Ml IV 10 ml BID INDU Administration Sodium Chloride 10 ml 02/24/20 06:45 03/10/20 09:06 Sodium Chloride Flush Syringe 10 Ml IV 10 ml PRN PRN Administration LINE FLUSH
--- NOTE | 2020-03-19 09:58 | Progress Note ---
Assessment and Plan Acute Hypoxemic Respiratory Failure s/p MVS, extubated 03/15/2020 Severe Sepsis Acute Toxic-Metabolic Encephalopathy Hypertensive urgency Morbid obesity Acute pancreatitis, abdominal pain Medical non compliance Oropharyngeal Dysphagia -Wean supplemental oxygen for O2 sats>90% - HD/UF for toxin and volume clearance per Renal service, - accuchecks with glycemic control per SSI (While critically ill target blood glucose of 140-180 mg/dL; avoid hypoglycemia) - continue prn bronchodilators with pulmonary hygiene per RT -Stop am Seroquel, decrease qhs Seroquel by half the current dose - complete Meropenem; de-escalate per ID rec's - JUANIS per homicide squad sergeant, DISCHARGE RN - VTE prophylaxis-Heparin - avoid nephrotoxins, renally dose all medications - Maintenance of sleep-wake cycle, avoid delirium - Stress ulcer prophylaxis-PPI - mobility protocol, - Monitor hemodynamics closely CONDITION: FAIR PROGNOSIS: FAIR CODE STATUS: FULL CODE Subjective Date of service: 03/19/20 Principal diagnosis: HTNsive urgency; Morbid obesity; Ac. pancreatitis; Abdominal pain Interval history: Patient is seen today for: Acute hypoxemic respiratory failure s/p MVS; Hypertensive urgency; Morbid obesity; Acute pancreatitis; abdominal pain; Medical non compliance; Acute Toxic Metabolic Encephalopathy Seen and examined at bedside; 24hour events reviewed; nursing and respiratory care staff consulted; no adverse overnight events reported to me; resting peacefully in bed, on room air, crying and wanting to go home. Denies any chest pain, no shortness of breath, no fevers or chills. No diarrhea or vomiting Objective Vital Signs - 12hr 03/18/20 03/19/20 03/19/20 23:59 04:31 07:43 Temperature 98.0 F 98 F Pulse Rate 88 68 82 Respiratory 18 18 Rate Blood Pressure 150/92 Blood Pressure 151/68 [Left] O2 Sat by Pulse 95 Oximetry 03/19/20 03/19/20 07:44 08:26 Temperature 98.6 F Pulse Rate 98 H Respiratory 18 Rate Blood Pressure 161/89 Blood Pressure [Left] O2 Sat by Pulse 95 95 Oximetry Constitutional: no acute distress, alert Eyes: non-icteric ENT: oropharynx moist, other (Right IJ trialysis catheter) Neck: supple, no lymphadenopathy, no JVD, other (RIJ HD catheter) Effort: normal Ascultation: Bilateral: diminished breath sounds (at the bases), rhonchi Percussion: Bilateral: not dull Cardiovascular: regular rate and rhythm, other (S1,S2) Gastrointestinal: normoactive bowel sounds, hypoactive bowel sounds, soft, non- tender, non-distended Integumentary: normal Extremities: no cyanosis, no edema, pink and warm, pulses normal Neurologic: normal mental status, non-focal exam, pupils equal and round, CN II- XII normal, motor strength normal and Psychiatric: tearful CBC and BMP: 03/19/20 05:55 03/20/20 04:31 ABG, PT/INR, D-dimer: ABG ABG pH 7.420 pH Units (7.350-7.450) 03/15/20 13:20 POC ABG pCO2 40.5 mmHg (32.0-48.0) 03/13/20 14:23 ABG pCO2 45.5 mm Hg 03/15/20 13:20 POC ABG pO2 75.1 mmHg (83-108) L 03/13/20 14:23 ABG pO2 85.8 mm Hg (80.0-90.0) 03/15/20 13:20 POC ABG HCO3 28.3 03/13/20 14:23 ABG O2 Saturation 97.1 % (95.0-99.0) 03/15/20 13:20 PT/INR, D-dimer PT 14.1 Sec. (12.2-14.9) 03/11/20 07:31 INR 1.07 (0.87-1.13) 03/11/20 07:31 Abnormal lab findings: Abnormal Labs 02/24/20 02/24/20 02/24/20 02:53 02:53 Unknown WBC 12.7 H Hgb 10.0 L RBC Hct MCV 70 L MCH 22 L RDW 17.9 H Plt Count 458 H Lymph % (Auto) 8.9 L Lymph # 1.1 L [place] % (Auto) [place] # Eos % (Auto) Lymph # (Auto) [place] # (Auto) Eos # (Auto) Seg Neutrophils % 84.2 H Baso # (Auto) Seg Neutrophils # 10.7 H Seg Neuts % (Manual) Lymphocytes % (Manual) Monocytes % (Manual) Nucleated RBC % Seg Neutrophils # Man Lymphocytes # (Manual) Monocytes # (Manual) Eosinophils # (Manual) Basophils # (Manual) ABG pH POC ABG pCO2 POC ABG pO2 ABG pO2 ABG HCO3 ABG O2 Saturation ABG Base Excess ABG Hemoglobin ABG Oxyhemoglobin ABG Sodium ABG Glucose Oxyhemoglobin Sodium Potassium Chloride Carbon Dioxide BUN 27 H Creatinine 1.7 H Glucose 118 H POC Glucose Calcium Phosphorus Magnesium Direct Bilirubin AST Alkaline Phosphatase Albumin Troponin T C-Reactive Protein Jipyg-4-Vmrhetvea PEP Interpretation Triglycerides Lipase 232 H HDL Cholesterol PTH Intact Arterial Blood Glucose Arterial Blood Ionized Calcium Urine WBC (Auto) 11.0 H Urine Creatinine Urine Total Protein ZINA Screen Crossmatch 02/25/20 02/25/20 02/25/20 00:03 03:49 03:49 WBC 29.1 H Hgb 9.4 L RBC Hct 30.2 L MCV 71 L MCH 22 L RDW 18.3 H Plt Count 525 H Lymph % (Auto) 3.4 L Lymph # 1.0 L [place] % (Auto) [place] # 1.0 H Eos % (Auto) Lymph # (Auto) [place] # (Auto) Eos # (Auto) Seg Neutrophils % Baso # (Auto) Seg Neutrophils # 26.4 H Seg Neuts % (Manual) Lymphocytes % (Manual) Monocytes % (Manual) Nucleated RBC % Seg Neutrophils # Man Lymphocytes # (Manual) Monocytes # (Manual) Eosinophils # (Manual) Basophils # (Manual) ABG pH POC ABG pCO2 POC ABG pO2 ABG pO2 ABG HCO3 ABG O2 Saturation ABG Base Excess ABG Hemoglobin ABG Oxyhemoglobin ABG Sodium ABG Glucose Oxyhemoglobin Sodium Potassium Chloride Carbon Dioxide BUN Creatinine Glucose POC Glucose 126 H Calcium Phosphorus Magnesium Direct Bilirubin AST Alkaline Phosphatase Albumin Troponin T C-Reactive Protein Kpelj-0-Qshhvslxu PEP Interpretation Triglycerides Lipase 1486 H HDL Cholesterol PTH Intact Arterial Blood Glucose Arterial Blood Ionized Calcium Urine WBC (Auto) Urine Creatinine Urine Total Protein ZINA Screen Crossmatch 02/25/20 02/25/20 02/25/20 03:49 05:55 22:55 WBC Hgb RBC Hct MCV MCH RDW Plt Count Lymph % (Auto) Lymph # [place] % (Auto) [place] # Eos % (Auto) Lymph # (Auto) [place] # (Auto) Eos # (Auto) Seg Neutrophils % Baso # (Auto) Seg Neutrophils # Seg Neuts % (Manual) Lymphocytes % (Manual) Monocytes % (Manual) Nucleated RBC % Seg Neutrophils # Man Lymphocytes # (Manual) Monocytes # (Manual) Eosinophils # (Manual) Basophils # (Manual) ABG pH POC ABG pCO2 POC ABG pO2 ABG pO2 ABG HCO3 ABG O2 Saturation ABG Base Excess ABG Hemoglobin ABG Oxyhemoglobin ABG Sodium ABG Glucose Oxyhemoglobin Sodium 136 L Potassium Chloride 97.9 L Carbon Dioxide 21 L BUN 39 H Creatinine 3.0 H D Glucose 118 H POC Glucose 124 H Calcium Phosphorus Magnesium Direct Bilirubin AST Alkaline Phosphatase Albumin 3.6 L Troponin T C-Reactive Protein Nwwjh-5-Hgiirpspq PEP Interpretation Triglycerides Lipase HDL Cholesterol PTH Intact Arterial Blood Glucose Arterial Blood Ionized Calcium Urine WBC (Auto) Urine Creatinine 161.0 H Urine Total Protein 150 H ZINA Screen Crossmatch 02/26/20 02/26/20 02/26/20 04:39 04:39 04:39 WBC 30.3 H Hgb 9.1 L RBC Hct 29.8 L MCV 71 L MCH 22 L RDW 18.2 H Plt Count 530 H Lymph % (Auto) Lymph # [place] % (Auto) [place] # Eos % (Auto) Lymph # (Auto) [place] # (Auto) Eos # (Auto) Seg Neutrophils % Baso # (Auto) Seg Neutrophils # Seg Neuts % (Manual) Lymphocytes % (Manual) Monocytes % (Manual) Nucleated RBC % Seg Neutrophils # Man Lymphocytes # (Manual) Monocytes # (Manual) Eosinophils # (Manual) Basophils # (Manual) ABG pH POC ABG pCO2 POC ABG pO2 ABG pO2 ABG HCO3 ABG O2 Saturation ABG Base Excess ABG Hemoglobin ABG Oxyhemoglobin ABG Sodium ABG Glucose Oxyhemoglobin Sodium Potassium Chloride Carbon Dioxide 19 L BUN 44 H Creatinine 3.1 H Glucose 106 H POC Glucose Calcium 8.1 L Phosphorus Magnesium Direct Bilirubin AST Alkaline Phosphatase Albumin Troponin T C-Reactive Protein Rclan-1-Mevmgzfds PEP Interpretation Triglycerides Lipase 540 H HDL Cholesterol PTH Intact Arterial Blood Glucose Arterial Blood Ionized Calcium Urine WBC (Auto) Urine Creatinine Urine Total Protein ZINA Screen Positive H Crossmatch 02/26/20 02/26/20 02/26/20 04:39 08:15 12:14 WBC Hgb RBC Hct MCV MCH RDW Plt Count Lymph % (Auto) Lymph # [place] % (Auto) [place] # Eos % (Auto) Lymph # (Auto) [place] # (Auto) Eos # (Auto) Seg Neutrophils % Baso # (Auto) Seg Neutrophils # Seg Neuts % (Manual) Lymphocytes % (Manual) Monocytes % (Manual) Nucleated RBC % Seg Neutrophils # Man Lymphocytes # (Manual) Monocytes # (Manual) Eosinophils # (Manual) Basophils # (Manual) ABG pH POC ABG pCO2 POC ABG pO2 ABG pO2 ABG HCO3 ABG O2 Saturation ABG Base Excess ABG Hemoglobin ABG Oxyhemoglobin ABG Sodium ABG Glucose Oxyhemoglobin Sodium Potassium Chloride Carbon Dioxide BUN Creatinine Glucose POC Glucose 112 H Calcium Phosphorus Magnesium Direct Bilirubin AST Alkaline Phosphatase Albumin 2.8 L Troponin T C-Reactive Protein Juwcz-3-Zpysyuaid 0.7 H PEP Interpretation see below H Triglycerides Lipase HDL Cholesterol PTH Intact 911.3 H Arterial Blood Glucose Arterial Blood Ionized Calcium Urine WBC (Auto) Urine Creatinine Urine Total Protein ZINA Screen Crossmatch 02/27/20 02/27/20 02/27/20 04:18 04:18 04:18 WBC 26.8 H Hgb 7.9 L RBC Hct 26.3 L MCV 70 L MCH 21 L RDW 18.0 H Plt Count 513 H Lymph % (Auto) Lymph # [place] % (Auto) [place] # Eos % (Auto) Lymph # (Auto) [place] # (Auto) Eos # (Auto) Seg Neutrophils % Baso # (Auto) Seg Neutrophils # Seg Neuts % (Manual) Lymphocytes % (Manual) Monocytes % (Manual) Nucleated RBC % Seg Neutrophils # Man Lymphocytes # (Manual) Monocytes # (Manual) Eosinophils # (Manual) Basophils # (Manual) ABG pH POC ABG pCO2 POC ABG pO2 ABG pO2 ABG HCO3 ABG O2 Saturation ABG Base Excess ABG Hemoglobin ABG Oxyhemoglobin ABG Sodium ABG Glucose Oxyhemoglobin Sodium 135 L 135 L Potassium Chloride Carbon Dioxide 15 L 16 L BUN 50 H 51 H Creatinine 3.4 H 3.4 H Glucose POC Glucose Calcium 7.4 L 7.5 L Phosphorus Magnesium Direct Bilirubin AST Alkaline Phosphatase Albumin 3.0 L Troponin T C-Reactive Protein 37.30 H Vrnga-2-Uyzgqftgu PEP Interpretation Triglycerides Lipase 177 H HDL Cholesterol PTH Intact Arterial Blood Glucose Arterial Blood Ionized Calcium Urine WBC (Auto) Urine Creatinine Urine Total Protein ZINA Screen Crossmatch 02/27/20 02/28/20 02/28/20 16:57 05:07 05:07 WBC Hgb RBC Hct MCV MCH RDW Plt Count Lymph % (Auto) Lymph # [place] % (Auto) [place] # Eos % (Auto) Lymph # (Auto) [place] # (Auto) Eos # (Auto) Seg Neutrophils % Baso # (Auto) Seg Neutrophils # Seg Neuts % (Manual) Lymphocytes % (Manual) Monocytes % (Manual) Nucleated RBC % Seg Neutrophils # Man Lymphocytes # (Manual) Monocytes # (Manual) Eosinophils # (Manual) Basophils # (Manual) ABG pH 7.336 L POC ABG pCO2 POC ABG pO2 ABG pO2 57.0 L ABG HCO3 16.4 L ABG O2 Saturation 88.2 L ABG Base Excess -8.4 L ABG Hemoglobin 10.4 L ABG Oxyhemoglobin ABG Sodium ABG Glucose Oxyhemoglobin 85.7 L Sodium Potassium Chloride Carbon Dioxide 14 L BUN 60 H Creatinine 4.2 H Glucose POC Glucose Calcium 8.2 L Phosphorus Magnesium Direct Bilirubin AST Alkaline Phosphatase Albumin Troponin T C-Reactive Protein Bivmn-2-Vlaptnzbk PEP Interpretation Triglycerides Lipase 155 H HDL Cholesterol PTH Intact Arterial Blood Glucose Arterial Blood Ionized Calcium Urine WBC (Auto) Urine Creatinine Urine Total Protein ZINA Screen Crossmatch 02/28/20 02/28/20 02/28/20 05:56 11:05 11:05 WBC Hgb RBC Hct MCV MCH RDW Plt Count Lymph % (Auto) Lymph # [place] % (Auto) [place] # Eos % (Auto) Lymph # (Auto) [place] # (Auto) Eos # (Auto) Seg Neutrophils % Baso # (Auto) Seg Neutrophils # Seg Neuts % (Manual) Lymphocytes % (Manual) Monocytes % (Manual) Nucleated RBC % Seg Neutrophils # Man Lymphocytes # (Manual) Monocytes # (Manual) Eosinophils # (Manual) Basophils # (Manual) ABG pH 7.317 L POC ABG pCO2 POC ABG pO2 76.2 L ABG pO2 ABG HCO3 16.4 L ABG O2 Saturation ABG Base Excess -8.9 L ABG Hemoglobin 6.6 L 7.6 L ABG Oxyhemoglobin ABG Sodium ABG Glucose Oxyhemoglobin 94.6 L Sodium Potassium Chloride Carbon Dioxide BUN Creatinine Glucose POC Glucose 115 H Calcium Phosphorus Magnesium Direct Bilirubin AST Alkaline Phosphatase Albumin Troponin T C-Reactive Protein Jlqsy-1-Exxhqpunn PEP Interpretation Triglycerides Lipase HDL Cholesterol PTH Intact Arterial Blood Glucose Arterial Blood Ionized Calcium Urine WBC (Auto) Urine Creatinine Urine Total Protein ZINA Screen Crossmatch 02/28/20 02/28/20 02/29/20 17:39 19:39 05:43 WBC Hgb RBC Hct MCV MCH RDW Plt Count Lymph % (Auto) Lymph # [place] % (Auto) [place] # Eos % (Auto) Lymph # (Auto) [place] # (Auto) Eos # (Auto) Seg Neutrophils % Baso # (Auto) Seg Neutrophils # Seg Neuts % (Manual) Lymphocytes % (Manual) Monocytes % (Manual) Nucleated RBC % Seg Neutrophils # Man Lymphocytes # (Manual) Monocytes # (Manual) Eosinophils # (Manual) Basophils # (Manual) ABG pH 7.300 L POC ABG pCO2 POC ABG pO2 ABG pO2 117.5 H ABG HCO3 15.0 L ABG O2 Saturation ABG Base Excess -10.5 L ABG Hemoglobin 6.4 L ABG Oxyhemoglobin ABG Sodium ABG Glucose Oxyhemoglobin Sodium Potassium Chloride Carbon Dioxide BUN Creatinine Glucose POC Glucose 120 H 66 L Calcium Phosphorus Magnesium Direct Bilirubin AST Alkaline Phosphatase Albumin Troponin T C-Reactive Protein Ssyky-6-Hbfrrubzg PEP Interpretation Triglycerides Lipase HDL Cholesterol PTH Intact Arterial Blood Glucose Arterial Blood Ionized Calcium Urine WBC (Auto) Urine Creatinine Urine Total Protein ZINA Screen Crossmatch 02/29/20 02/29/20 02/29/20 05:45 12:04 12:31 WBC Hgb RBC Hct MCV MCH RDW Plt Count Lymph % (Auto) Lymph # [place] % (Auto) [place] # Eos % (Auto) Lymph # (Auto) [place] # (Auto) Eos # (Auto) Seg Neutrophils % Baso # (Auto) Seg Neutrophils # Seg Neuts % (Manual) Lymphocytes % (Manual) Monocytes % (Manual) Nucleated RBC % Seg Neutrophils # Man Lymphocytes # (Manual) Monocytes # (Manual) Eosinophils # (Manual) Basophils # (Manual) ABG pH 7.212 L POC ABG pCO2 POC ABG pO2 ABG pO2 ABG HCO3 ABG O2 Saturation ABG Base Excess ABG Hemoglobin 7.4 L ABG Oxyhemoglobin ABG Sodium ABG Glucose Oxyhemoglobin Sodium Potassium Chloride Carbon Dioxide BUN Creatinine Glucose POC Glucose 65 L 64 L Calcium Phosphorus Magnesium Direct Bilirubin AST Alkaline Phosphatase Albumin Troponin T C-Reactive Protein Prksu-7-Mfjohxrtm PEP Interpretation Triglycerides Lipase HDL Cholesterol PTH Intact Arterial Blood Glucose Arterial Blood Ionized Calcium Urine WBC (Auto) Urine Creatinine Urine Total Protein ZINA Screen Crossmatch 02/29/20 02/29/20 02/29/20 14:22 14:22 18:20 WBC Hgb RBC Hct MCV MCH RDW Plt Count Lymph % (Auto) Lymph # [place] % (Auto) [place] # Eos % (Auto) Lymph # (Auto) [place] # (Auto) Eos # (Auto) Seg Neutrophils % Baso # (Auto) Seg Neutrophils # Seg Neuts % (Manual) Lymphocytes % (Manual) Monocytes % (Manual) Nucleated RBC % Seg Neutrophils # Man Lymphocytes # (Manual) Monocytes # (Manual) Eosinophils # (Manual) Basophils # (Manual) ABG pH POC ABG pCO2 POC ABG pO2 ABG pO2 ABG HCO3 ABG O2 Saturation ABG Base Excess ABG Hemoglobin ABG Oxyhemoglobin ABG Sodium ABG Glucose Oxyhemoglobin Sodium Potassium Chloride Carbon Dioxide 16 L BUN 77 H Creatinine 4.7 H Glucose POC Glucose 66 L Calcium Phosphorus 7.50 H Magnesium 2.60 H Direct Bilirubin AST Alkaline Phosphatase Albumin 2.3 L Troponin T C-Reactive Protein Ucoho-9-Zgytijcss PEP Interpretation Triglycerides Lipase HDL Cholesterol PTH Intact Arterial Blood Glucose Arterial Blood Ionized Calcium Urine WBC (Auto) Urine Creatinine Urine Total Protein ZINA Screen Crossmatch 02/29/20 03/01/20 03/01/20 18:24 04:05 04:37 WBC Hgb RBC Hct MCV MCH RDW Plt Count Lymph % (Auto) Lymph # [place] % (Auto) [place] # Eos % (Auto) Lymph # (Auto) [place] # (Auto) Eos # (Auto) Seg Neutrophils % Baso # (Auto) Seg Neutrophils # Seg Neuts % (Manual) Lymphocytes % (Manual) Monocytes % (Manual) Nucleated RBC % Seg Neutrophils # Man Lymphocytes # (Manual) Monocytes # (Manual) Eosinophils # (Manual) Basophils # (Manual) ABG pH 7.271 L 7.347 L POC ABG pCO2 POC ABG pO2 ABG pO2 133.5 H ABG HCO3 15.8 L ABG O2 Saturation ABG Base Excess -8.9 L ABG Hemoglobin 7.2 L 7.6 L ABG Oxyhemoglobin 93.4 L ABG Sodium ABG Glucose Oxyhemoglobin Sodium Potassium Chloride 107.6 H Carbon Dioxide 14 L BUN 83 H Creatinine 5.6 H Glucose POC Glucose Calcium Phosphorus 6.10 H Magnesium 2.40 H Direct Bilirubin AST Alkaline Phosphatase Albumin Troponin T C-Reactive Protein Hqmph-3-Dheibgrfl PEP Interpretation Triglycerides Lipase HDL Cholesterol PTH Intact Arterial Blood Glucose Arterial Blood Ionized Calcium Urine WBC (Auto) Urine Creatinine Urine Total Protein ZINA Screen Crossmatch 03/01/20 03/01/20 03/01/20 11:06 16:22 18:12 WBC 30.5 H Hgb 6.2 L RBC 2.92 L Hct 20.8 L MCV 71 L MCH 21 L RDW 18.2 H Plt Count 560 H Lymph % (Auto) Lymph # [place] % (Auto) [place] # Eos % (Auto) Lymph # (Auto) [place] # (Auto) Eos # (Auto) Seg Neutrophils % Baso # (Auto) Seg Neutrophils # Seg Neuts % (Manual) 79.0 H Lymphocytes % (Manual) 3.0 L Monocytes % (Manual) Nucleated RBC % Seg Neutrophils # Man 24.1 H Lymphocytes # (Manual) 0.9 L Monocytes # (Manual) 2.1 H Eosinophils # (Manual) Basophils # (Manual) ABG pH POC ABG pCO2 POC ABG pO2 ABG pO2 ABG HCO3 ABG O2 Saturation ABG Base Excess ABG Hemoglobin ABG Oxyhemoglobin ABG Sodium ABG Glucose Oxyhemoglobin Sodium Potassium 5.3 H D Chloride Carbon Dioxide 11 L BUN 77 H Creatinine 5.0 H Glucose 54 L POC Glucose 121 H Calcium Phosphorus Magnesium Direct Bilirubin AST Alkaline Phosphatase Albumin 3.0 L Troponin T C-Reactive Protein 36.50 H Ypsgf-6-Ztzdoxorw PEP Interpretation Triglycerides Lipase HDL Cholesterol PTH Intact Arterial Blood Glucose Arterial Blood Ionized Calcium Urine WBC (Auto) Urine Creatinine Urine Total Protein ZINA Screen Crossmatch 03/01/20 03/01/20 03/01/20 18:30 23:37 Unknown WBC Hgb RBC Hct MCV MCH RDW Plt Count Lymph % (Auto) Lymph # [place] % (Auto) [place] # Eos % (Auto) Lymph # (Auto) [place] # (Auto) Eos # (Auto) Seg Neutrophils % Baso # (Auto) Seg Neutrophils # Seg Neuts % (Manual) Lymphocytes % (Manual) Monocytes % (Manual) Nucleated RBC % Seg Neutrophils # Man Lymphocytes # (Manual) Monocytes # (Manual) Eosinophils # (Manual) Basophils # (Manual) ABG pH POC ABG pCO2 POC ABG pO2 ABG pO2 ABG HCO3 ABG O2 Saturation ABG Base Excess ABG Hemoglobin ABG Oxyhemoglobin ABG Sodium ABG Glucose Oxyhemoglobin Sodium Potassium Chloride Carbon Dioxide BUN Creatinine Glucose POC Glucose 125 H Calcium Phosphorus Magnesium Direct Bilirubin AST Alkaline Phosphatase Albumin Troponin T C-Reactive Protein Vtkox-0-Skhkhbbbi PEP Interpretation Triglycerides Lipase 297 H HDL Cholesterol PTH Intact Arterial Blood Glucose Arterial Blood Ionized Calcium Urine WBC (Auto) Urine Creatinine Urine Total Protein ZINA Screen Crossmatch See Detail 03/02/20 03/02/20 03/02/20 04:00 05:36 05:36 WBC 26.0 H Hgb 7.8 L RBC 3.26 L Hct 24.2 L MCV 74 L MCH 24 L RDW 21.3 H Plt Count 508 H Lymph % (Auto) Lymph # [place] % (Auto) [place] # Eos % (Auto) Lymph # (Auto) [place] # (Auto) Eos # (Auto) Seg Neutrophils % Baso # (Auto) Seg Neutrophils # Seg Neuts % (Manual) 86.0 H Lymphocytes % (Manual) 4.0 L Monocytes % (Manual) Nucleated RBC % 2.0 H Seg Neutrophils # Man 22.4 H Lymphocytes # (Manual) 1.0 L Monocytes # (Manual) Eosinophils # (Manual) Basophils # (Manual) ABG pH POC ABG pCO2 27.8 L POC ABG pO2 ABG pO2 ABG HCO3 ABG O2 Saturation ABG Base Excess ABG Hemoglobin 8 L ABG Oxyhemoglobin ABG Sodium ABG Glucose Oxyhemoglobin Sodium Potassium Chloride Carbon Dioxide 17 L BUN 85 H Creatinine 5.6 H Glucose 109 H POC Glucose Calcium Phosphorus Magnesium 2.50 H Direct Bilirubin AST Alkaline Phosphatase Albumin 2.3 L Troponin T C-Reactive Protein Xugyo-8-Pqzmafreo PEP Interpretation Triglycerides Lipase HDL Cholesterol PTH Intact Arterial Blood Glucose Arterial Blood Ionized Calcium Urine WBC (Auto) Urine Creatinine Urine Total Protein ZINA Screen Crossmatch 03/03/20 03/03/20 03/03/20 04:00 04:36 04:36 WBC Hgb RBC Hct MCV MCH RDW Plt Count Lymph % (Auto) Lymph # [place] % (Auto) [place] # Eos % (Auto) Lymph # (Auto) [place] # (Auto) Eos # (Auto) Seg Neutrophils % Baso # (Auto) Seg Neutrophils # Seg Neuts % (Manual) Lymphocytes % (Manual) Monocytes % (Manual) Nucleated RBC % Seg Neutrophils # Man Lymphocytes # (Manual) Monocytes # (Manual) Eosinophils # (Manual) Basophils # (Manual) ABG pH POC ABG pCO2 31.8 L POC ABG pO2 ABG pO2 ABG HCO3 ABG O2 Saturation ABG Base Excess ABG Hemoglobin 8.6 L ABG Oxyhemoglobin ABG Sodium ABG Glucose Oxyhemoglobin Sodium 147 H Potassium Chloride 108.4 H Carbon Dioxide 16 L BUN 87 H Creatinine 6.2 H Glucose POC Glucose Calcium Phosphorus Magnesium 2.50 H Direct Bilirubin 1.0 H AST Alkaline Phosphatase Albumin 2.4 L Troponin T C-Reactive Protein Crfoz-7-Hymaqnzlh PEP Interpretation Triglycerides Lipase 119 H HDL Cholesterol PTH Intact Arterial Blood Glucose Arterial Blood Ionized Calcium Urine WBC (Auto) Urine Creatinine Urine Total Protein ZINA Screen Crossmatch 03/03/20 03/03/20 03/03/20 04:36 12:48 17:48 WBC 28.0 H Hgb 8.1 L RBC 3.41 L Hct 25.3 L MCV 74 L MCH 24 L RDW 20.8 H Plt Count 557 H Lymph % (Auto) Lymph # [place] % (Auto) [place] # Eos % (Auto) Lymph # (Auto) [place] # (Auto) Eos # (Auto) Seg Neutrophils % Baso # (Auto) Seg Neutrophils # Seg Neuts % (Manual) 82.0 H Lymphocytes % (Manual) 4.0 L Monocytes % (Manual) Nucleated RBC % Seg Neutrophils # Man 23.0 H Lymphocytes # (Manual) 1.1 L Monocytes # (Manual) 2.0 H Eosinophils # (Manual) Basophils # (Manual) ABG pH POC ABG pCO2 POC ABG pO2 ABG pO2 ABG HCO3 ABG O2 Saturation ABG Base Excess ABG Hemoglobin ABG Oxyhemoglobin ABG Sodium ABG Glucose Oxyhemoglobin Sodium Potassium Chloride Carbon Dioxide BUN Creatinine Glucose POC Glucose 131 H 113 H Calcium Phosphorus Magnesium Direct Bilirubin AST Alkaline Phosphatase Albumin Troponin T C-Reactive Protein Tnvnr-6-Tdqqsgtqh PEP Interpretation Triglycerides Lipase HDL Cholesterol PTH Intact Arterial Blood Glucose Arterial Blood Ionized Calcium Urine WBC (Auto) Urine Creatinine Urine Total Protein ZINA Screen Crossmatch 03/03/20 03/04/20 03/04/20 23:43 03:43 04:05 WBC Hgb RBC Hct MCV MCH RDW Plt Count Lymph % (Auto) Lymph # [place] % (Auto) [place] # Eos % (Auto) Lymph # (Auto) [place] # (Auto) Eos # (Auto) Seg Neutrophils % Baso # (Auto) Seg Neutrophils # Seg Neuts % (Manual) Lymphocytes % (Manual) Monocytes % (Manual) Nucleated RBC % Seg Neutrophils # Man Lymphocytes # (Manual) Monocytes # (Manual) Eosinophils # (Manual) Basophils # (Manual) ABG pH POC ABG pCO2 POC ABG pO2 ABG pO2 57.4 L ABG HCO3 27.2 H ABG O2 Saturation 88.6 L ABG Base Excess ABG Hemoglobin ABG Oxyhemoglobin ABG Sodium ABG Glucose Oxyhemoglobin Sodium Potassium 3.3 L Chloride Carbon Dioxide BUN 65 H Creatinine 5.3 H Glucose 152 H POC Glucose 149 H Calcium Phosphorus Magnesium Direct Bilirubin 0.7 H AST Alkaline Phosphatase Albumin 2.5 L Troponin T C-Reactive Protein Uecpg-7-Otkdcjnre PEP Interpretation Triglycerides Lipase HDL Cholesterol PTH Intact Arterial Blood Glucose Arterial Blood Ionized Calcium Urine WBC (Auto) Urine Creatinine Urine Total Protein ZINA Screen Crossmatch 03/04/20 03/04/20 03/04/20 04:05 05:26 12:21 WBC 30.1 H Hgb 8.2 L RBC 3.44 L Hct 25.2 L MCV 73 L MCH 24 L RDW 20.7 H Plt Count 554 H Lymph % (Auto) 3.3 L Lymph # [place] % (Auto) [place] # Eos % (Auto) Lymph # (Auto) 1.0 L [place] # (Auto) 2.0 H Eos # (Auto) Seg Neutrophils % 88.6 H Baso # (Auto) Seg Neutrophils # 26.6 H Seg Neuts % (Manual) Lymphocytes % (Manual) Monocytes % (Manual) Nucleated RBC % Seg Neutrophils # Man Lymphocytes # (Manual) Monocytes # (Manual) Eosinophils # (Manual) Basophils # (Manual) ABG pH POC ABG pCO2 POC ABG pO2 ABG pO2 ABG HCO3 ABG O2 Saturation ABG Base Excess ABG Hemoglobin ABG Oxyhemoglobin ABG Sodium ABG Glucose Oxyhemoglobin Sodium Potassium Chloride Carbon Dioxide BUN Creatinine Glucose POC Glucose 136 H 155 H Calcium Phosphorus Magnesium Direct Bilirubin AST Alkaline Phosphatase Albumin Troponin T C-Reactive Protein Rujsg-6-Obtckmsip PEP Interpretation Triglycerides Lipase HDL Cholesterol PTH Intact Arterial Blood Glucose Arterial Blood Ionized Calcium Urine WBC (Auto) Urine Creatinine Urine Total Protein ZINA Screen Crossmatch 03/04/20 03/04/20 03/04/20 18:02 19:00 23:24 WBC Hgb RBC Hct MCV MCH RDW Plt Count Lymph % (Auto) Lymph # [place] % (Auto) [place] # Eos % (Auto) Lymph # (Auto) [place] # (Auto) Eos # (Auto) Seg Neutrophils % Baso # (Auto) Seg Neutrophils # Seg Neuts % (Manual) Lymphocytes % (Manual) Monocytes % (Manual) Nucleated RBC % Seg Neutrophils # Man Lymphocytes # (Manual) Monocytes # (Manual) Eosinophils # (Manual) Basophils # (Manual) ABG pH POC ABG pCO2 POC ABG pO2 ABG pO2 ABG HCO3 ABG O2 Saturation ABG Base Excess ABG Hemoglobin ABG Oxyhemoglobin ABG Sodium ABG Glucose Oxyhemoglobin Sodium Potassium Chloride Carbon Dioxide BUN Creatinine Glucose POC Glucose 124 H 115 H Calcium Phosphorus Magnesium Direct Bilirubin AST Alkaline Phosphatase Albumin Troponin T C-Reactive Protein Oqrbo-5-Nztpkfize PEP Interpretation Triglycerides Lipase 72 H HDL Cholesterol PTH Intact Arterial Blood Glucose Arterial Blood Ionized Calcium Urine WBC (Auto) Urine Creatinine Urine Total Protein ZINA Screen Crossmatch 03/05/20 03/05/20 03/05/20 05:04 05:29 06:00 WBC Hgb RBC Hct MCV MCH RDW Plt Count Lymph % (Auto) Lymph # [place] % (Auto) [place] # Eos % (Auto) Lymph # (Auto) [place] # (Auto) Eos # (Auto) Seg Neutrophils % Baso # (Auto) Seg Neutrophils # Seg Neuts % (Manual) Lymphocytes % (Manual) Monocytes % (Manual) Nucleated RBC % Seg Neutrophils # Man Lymphocytes # (Manual) Monocytes # (Manual) Eosinophils # (Manual) Basophils # (Manual) ABG pH POC ABG pCO2 POC ABG pO2 ABG pO2 62.5 L ABG HCO3 26.4 H ABG O2 Saturation 92.1 L ABG Base Excess ABG Hemoglobin 9.3 L ABG Oxyhemoglobin ABG Sodium ABG Glucose Oxyhemoglobin 89.9 L Sodium Potassium Chloride Carbon Dioxide BUN 54 H Creatinine 5.4 H Glucose 125 H POC Glucose 134 H Calcium Phosphorus Magnesium Direct Bilirubin 0.6 H AST Alkaline Phosphatase 133 H Albumin 2.5 L Troponin T C-Reactive Protein Slkfu-4-Hpehfiqfb PEP Interpretation Triglycerides Lipase HDL Cholesterol PTH Intact Arterial Blood Glucose Arterial Blood Ionized Calcium Urine WBC (Auto) Urine Creatinine Urine Total Protein ZINA Screen Crossmatch 03/05/20 03/05/20 03/05/20 12:18 18:01 21:39 WBC Hgb RBC Hct MCV MCH RDW Plt Count Lymph % (Auto) Lymph # [place] % (Auto) [place] # Eos % (Auto) Lymph # (Auto) [place] # (Auto) Eos # (Auto) Seg Neutrophils % Baso # (Auto) Seg Neutrophils # Seg Neuts % (Manual) Lymphocytes % (Manual) Monocytes % (Manual) Nucleated RBC % Seg Neutrophils # Man Lymphocytes # (Manual) Monocytes # (Manual) Eosinophils # (Manual) Basophils # (Manual) ABG pH POC ABG pCO2 POC ABG pO2 ABG pO2 ABG HCO3 ABG O2 Saturation ABG Base Excess ABG Hemoglobin ABG Oxyhemoglobin ABG Sodium ABG Glucose Oxyhemoglobin Sodium Potassium Chloride Carbon Dioxide BUN Creatinine Glucose POC Glucose 118 H 108 H 123 H Calcium Phosphorus Magnesium Direct Bilirubin AST Alkaline Phosphatase Albumin Troponin T C-Reactive Protein Mknhn-4-Amxfercrl PEP Interpretation Triglycerides Lipase HDL Cholesterol PTH Intact Arterial Blood Glucose Arterial Blood Ionized Calcium Urine WBC (Auto) Urine Creatinine Urine Total Protein ZINA Screen Crossmatch 03/06/20 03/06/20 03/06/20 04:40 04:41 05:44 WBC Hgb RBC Hct MCV MCH RDW Plt Count Lymph % (Auto) Lymph # [place] % (Auto) [place] # Eos % (Auto) Lymph # (Auto) [place] # (Auto) Eos # (Auto) Seg Neutrophils % Baso # (Auto) Seg Neutrophils # Seg Neuts % (Manual) Lymphocytes % (Manual) Monocytes % (Manual) Nucleated RBC % Seg Neutrophils # Man Lymphocytes # (Manual) Monocytes # (Manual) Eosinophils # (Manual) Basophils # (Manual) ABG pH POC ABG pCO2 POC ABG pO2 64.9 L ABG pO2 ABG HCO3 ABG O2 Saturation ABG Base Excess ABG Hemoglobin 9.9 L ABG Oxyhemoglobin 90.5 L ABG Sodium ABG Glucose Oxyhemoglobin Sodium Potassium Chloride 94.7 L Carbon Dioxide BUN 70 H Creatinine 7.1 H Glucose 113 H POC Glucose 134 H Calcium Phosphorus Magnesium Direct Bilirubin AST Alkaline Phosphatase Albumin Troponin T C-Reactive Protein Viwfh-5-Iaqdzqmlc PEP Interpretation Triglycerides Lipase HDL Cholesterol PTH Intact Arterial Blood Glucose Arterial Blood Ionized Calcium Urine WBC (Auto) Urine Creatinine Urine Total Protein ZINA Screen Crossmatch 03/06/20 03/06/20 03/06/20 08:54 11:56 18:19 WBC 31.5 H Hgb 8.7 L RBC Hct 27.8 L MCV 75 L MCH 23 L RDW 21.2 H Plt Count 516 H Lymph % (Auto) Lymph # [place] % (Auto) [place] # Eos % (Auto) Lymph # (Auto) [place] # (Auto) Eos # (Auto) Seg Neutrophils % Baso # (Auto) Seg Neutrophils # Seg Neuts % (Manual) 93.0 H Lymphocytes % (Manual) 2.0 L Monocytes % (Manual) Nucleated RBC % Seg Neutrophils # Man 29.3 H Lymphocytes # (Manual) 0.6 L Monocytes # (Manual) Eosinophils # (Manual) 0.6 H Basophils # (Manual) ABG pH POC ABG pCO2 POC ABG pO2 ABG pO2 ABG HCO3 ABG O2 Saturation ABG Base Excess ABG Hemoglobin ABG Oxyhemoglobin ABG Sodium ABG Glucose Oxyhemoglobin Sodium Potassium Chloride Carbon Dioxide BUN Creatinine Glucose POC Glucose 131 H 117 H Calcium Phosphorus Magnesium Direct Bilirubin AST Alkaline Phosphatase Albumin Troponin T C-Reactive Protein Ssqwy-1-Czqbfqmiz PEP Interpretation Triglycerides Lipase HDL Cholesterol PTH Intact Arterial Blood Glucose Arterial Blood Ionized Calcium Urine WBC (Auto) Urine Creatinine Urine Total Protein ZINA Screen Crossmatch 03/07/20 03/07/20 03/07/20 04:42 05:03 05:03 WBC 26.9 H Hgb 8.3 L RBC 3.50 L Hct 26.6 L MCV 76 L MCH 24 L RDW 21.3 H Plt Count 470 H Lymph % (Auto) Lymph # [place] % (Auto) [place] # Eos % (Auto) Lymph # (Auto) [place] # (Auto) Eos # (Auto) Seg Neutrophils % Baso # (Auto) Seg Neutrophils # Seg Neuts % (Manual) 89.0 H Lymphocytes % (Manual) 4.0 L Monocytes % (Manual) Nucleated RBC % Seg Neutrophils # Man 23.9 H Lymphocytes # (Manual) 1.1 L Monocytes # (Manual) Eosinophils # (Manual) Basophils # (Manual) 0.3 H ABG pH POC ABG pCO2 POC ABG pO2 68.3 L ABG pO2 ABG HCO3 ABG O2 Saturation ABG Base Excess ABG Hemoglobin 9.3 L ABG Oxyhemoglobin ABG Sodium ABG Glucose 112 H Oxyhemoglobin Sodium Potassium Chloride 94.8 L Carbon Dioxide BUN 52 H Creatinine 6.3 H Glucose 106 H POC Glucose Calcium Phosphorus Magnesium Direct Bilirubin AST Alkaline Phosphatase 132 H Albumin 2.5 L Troponin T C-Reactive Protein Faoii-6-Ddqvcnaap PEP Interpretation Triglycerides Lipase HDL Cholesterol PTH Intact Arterial Blood Glucose 112 H Arterial Blood Ionized Calcium Urine WBC (Auto) Urine Creatinine Urine Total Protein ZINA Screen Crossmatch 03/07/20 03/07/20 03/07/20 12:08 18:05 23:29 WBC Hgb RBC Hct MCV MCH RDW Plt Count Lymph % (Auto) Lymph # [place] % (Auto) [place] # Eos % (Auto) Lymph # (Auto) [place] # (Auto) Eos # (Auto) Seg Neutrophils % Baso # (Auto) Seg Neutrophils # Seg Neuts % (Manual) Lymphocytes % (Manual) Monocytes % (Manual) Nucleated RBC % Seg Neutrophils # Man Lymphocytes # (Manual) Monocytes # (Manual) Eosinophils # (Manual) Basophils # (Manual) ABG pH POC ABG pCO2 POC ABG pO2 ABG pO2 ABG HCO3 ABG O2 Saturation ABG Base Excess ABG Hemoglobin ABG Oxyhemoglobin ABG Sodium ABG Glucose Oxyhemoglobin Sodium Potassium Chloride Carbon Dioxide BUN Creatinine Glucose POC Glucose 114 H 111 H 118 H Calcium Phosphorus Magnesium Direct Bilirubin AST Alkaline Phosphatase Albumin Troponin T C-Reactive Protein Qpmxd-1-Yibbdkyln PEP Interpretation Triglycerides Lipase HDL Cholesterol PTH Intact Arterial Blood Glucose Arterial Blood Ionized Calcium Urine WBC (Auto) Urine Creatinine Urine Total Protein ZINA Screen Crossmatch 03/08/20 03/08/20 03/08/20 04:50 17:45 23:53 WBC Hgb RBC Hct MCV MCH RDW Plt Count Lymph % (Auto) Lymph # [place] % (Auto) [place] # Eos % (Auto) Lymph # (Auto) [place] # (Auto) Eos # (Auto) Seg Neutrophils % Baso # (Auto) Seg Neutrophils # Seg Neuts % (Manual) Lymphocytes % (Manual) Monocytes % (Manual) Nucleated RBC % Seg Neutrophils # Man Lymphocytes # (Manual) Monocytes # (Manual) Eosinophils # (Manual) Basophils # (Manual) ABG pH POC ABG pCO2 POC ABG pO2 ABG pO2 ABG HCO3 ABG O2 Saturation ABG Base Excess ABG Hemoglobin ABG Oxyhemoglobin ABG Sodium ABG Glucose Oxyhemoglobin Sodium Potassium Chloride 95.5 L Carbon Dioxide BUN 52 H Creatinine 6.2 H Glucose 109 H POC Glucose 106 H 106 H Calcium Phosphorus Magnesium Direct Bilirubin AST Alkaline Phosphatase Albumin Troponin T C-Reactive Protein Odckj-0-Duhqipfwm PEP Interpretation Triglycerides Lipase HDL Cholesterol PTH Intact Arterial Blood Glucose Arterial Blood Ionized Calcium Urine WBC (Auto) Urine Creatinine Urine Total Protein ZINA Screen Crossmatch 03/09/20 03/09/20 03/09/20 04:00 07:53 18:22 WBC 21.9 H Hgb 7.5 L RBC 3.27 L Hct 24.3 L MCV 74 L MCH 23 L RDW 20.9 H Plt Count 488 H Lymph % (Auto) Lymph # [place] % (Auto) [place] # Eos % (Auto) Lymph # (Auto) [place] # (Auto) Eos # (Auto) Seg Neutrophils % Baso # (Auto) Seg Neutrophils # Seg Neuts % (Manual) Lymphocytes % (Manual) Monocytes % (Manual) Nucleated RBC % Seg Neutrophils # Man Lymphocytes # (Manual) Monocytes # (Manual) Eosinophils # (Manual) Basophils # (Manual) ABG pH POC ABG pCO2 POC ABG pO2 ABG pO2 ABG HCO3 ABG O2 Saturation ABG Base Excess ABG Hemoglobin ABG Oxyhemoglobin ABG Sodium ABG Glucose Oxyhemoglobin Sodium Potassium Chloride 92.8 L Carbon Dioxide BUN 74 H Creatinine 7.8 H Glucose POC Glucose 114 H Calcium Phosphorus Magnesium Direct Bilirubin AST Alkaline Phosphatase Albumin Troponin T C-Reactive Protein Hhjhj-9-Wuhwoahjn PEP Interpretation Triglycerides Lipase HDL Cholesterol PTH Intact Arterial Blood Glucose Arterial Blood Ionized Calcium Urine WBC (Auto) Urine Creatinine Urine Total Protein ZINA Screen Crossmatch 03/10/20 03/10/20 03/10/20 04:37 04:37 09:53 WBC 16.0 H Hgb 7.1 L RBC 2.99 L Hct 22.4 L MCV 75 L MCH 24 L RDW 21.5 H Plt Count Lymph % (Auto) 9.2 L Lymph # [place] % (Auto) 9.9 H [place] # Eos % (Auto) Lymph # (Auto) [place] # (Auto) 1.6 H Eos # (Auto) Seg Neutrophils % 79.2 H Baso # (Auto) Seg Neutrophils # 12.6 H Seg Neuts % (Manual) Lymphocytes % (Manual) Monocytes % (Manual) Nucleated RBC % Seg Neutrophils # Man Lymphocytes # (Manual) Monocytes # (Manual) Eosinophils # (Manual) Basophils # (Manual) ABG pH POC ABG pCO2 POC ABG pO2 ABG pO2 ABG HCO3 ABG O2 Saturation ABG Base Excess ABG Hemoglobin 7.7 L ABG Oxyhemoglobin ABG Sodium 134.7 L ABG Glucose 103 H Oxyhemoglobin Sodium Potassium Chloride Carbon Dioxide BUN 45 H Creatinine 5.6 H Glucose 108 H POC Glucose Calcium Phosphorus Magnesium Direct Bilirubin AST Alkaline Phosphatase Albumin Troponin T C-Reactive Protein Nzpte-7-Icglawvfq PEP Interpretation Triglycerides Lipase HDL Cholesterol PTH Intact Arterial Blood Glucose 103 H Arterial Blood Ionized Calcium Urine WBC (Auto) Urine Creatinine Urine Total Protein ZINA Screen Crossmatch 03/10/20 03/11/20 03/11/20 23:46 02:52 03:25 WBC Hgb RBC Hct MCV MCH RDW Plt Count Lymph % (Auto) Lymph # [place] % (Auto) [place] # Eos % (Auto) Lymph # (Auto) [place] # (Auto) Eos # (Auto) Seg Neutrophils % Baso # (Auto) Seg Neutrophils # Seg Neuts % (Manual) Lymphocytes % (Manual) Monocytes % (Manual) Nucleated RBC % Seg Neutrophils # Man Lymphocytes # (Manual) Monocytes # (Manual) Eosinophils # (Manual) Basophils # (Manual) ABG pH POC ABG pCO2 POC ABG pO2 77.5 L ABG pO2 ABG HCO3 ABG O2 Saturation ABG Base Excess ABG Hemoglobin 8.0 L ABG Oxyhemoglobin ABG Sodium 135.8 L ABG Glucose Oxyhemoglobin Sodium Potassium Chloride Carbon Dioxide BUN Creatinine Glucose POC Glucose 116 H Calcium Phosphorus Magnesium Direct Bilirubin AST Alkaline Phosphatase Albumin Troponin T 0.093 H C-Reactive Protein Selpc-6-Igyrmabfv PEP Interpretation Triglycerides Lipase HDL Cholesterol PTH Intact Arterial Blood Glucose Arterial Blood Ionized Calcium Urine WBC (Auto) Urine Creatinine Urine Total Protein ZINA Screen Crossmatch 03/11/20 03/11/20 03/11/20 04:32 04:32 06:16 WBC 22.4 H Hgb 7.8 L RBC 3.32 L Hct 25.0 L MCV 75 L MCH 24 L RDW 21.4 H Plt Count 553 H Lymph % (Auto) Lymph # [place] % (Auto) [place] # Eos % (Auto) Lymph # (Auto) [place] # (Auto) Eos # (Auto) Seg Neutrophils % Baso # (Auto) Seg Neutrophils # Seg Neuts % (Manual) 81.0 H Lymphocytes % (Manual) 8.0 L Monocytes % (Manual) 8.0 H Nucleated RBC % Seg Neutrophils # Man 18.1 H Lymphocytes # (Manual) Monocytes # (Manual) 1.8 H Eosinophils # (Manual) Basophils # (Manual) 0.2 H ABG pH POC ABG pCO2 POC ABG pO2 ABG pO2 ABG HCO3 ABG O2 Saturation ABG Base Excess ABG Hemoglobin ABG Oxyhemoglobin ABG Sodium ABG Glucose Oxyhemoglobin Sodium Potassium Chloride 96.6 L Carbon Dioxide BUN 64 H Creatinine 6.5 H Glucose 101 H POC Glucose 142 H Calcium Phosphorus Magnesium Direct Bilirubin AST 41 H Alkaline Phosphatase Albumin 2.7 L Troponin T C-Reactive Protein Iseck-1-Gkcufuewo PEP Interpretation Triglycerides Lipase HDL Cholesterol PTH Intact Arterial Blood Glucose Arterial Blood Ionized Calcium Urine WBC (Auto) Urine Creatinine Urine Total Protein ZINA Screen Crossmatch 03/11/20 03/11/20 03/11/20 06:50 07:31 14:31 WBC Hgb 7.7 L RBC Hct 23.7 L MCV MCH RDW Plt Count 553 H Lymph % (Auto) Lymph # [place] % (Auto) [place] # Eos % (Auto) Lymph # (Auto) [place] # (Auto) Eos # (Auto) Seg Neutrophils % Baso # (Auto) Seg Neutrophils # Seg Neuts % (Manual) Lymphocytes % (Manual) Monocytes % (Manual) Nucleated RBC % Seg Neutrophils # Man Lymphocytes # (Manual) Monocytes # (Manual) Eosinophils # (Manual) Basophils # (Manual) ABG pH POC ABG pCO2 POC ABG pO2 ABG pO2 67.8 L ABG HCO3 ABG O2 Saturation ABG Base Excess ABG Hemoglobin ABG Oxyhemoglobin ABG Sodium ABG Glucose Oxyhemoglobin Sodium Potassium Chloride Carbon Dioxide BUN Creatinine Glucose POC Glucose Calcium Phosphorus Magnesium Direct Bilirubin AST Alkaline Phosphatase Albumin Troponin T 0.085 H C-Reactive Protein Nupfr-7-Rzmxrmbzi PEP Interpretation Triglycerides 247 H Lipase HDL Cholesterol 28 L PTH Intact Arterial Blood Glucose Arterial Blood Ionized Calcium Urine WBC (Auto) Urine Creatinine Urine Total Protein ZINA Screen Crossmatch 03/12/20 03/12/20 03/13/20 03:46 17:33 04:00 WBC Hgb 6.6 L RBC Hct 19.5 L* MCV MCH RDW Plt Count 603 H Lymph % (Auto) Lymph # [place] % (Auto) [place] # Eos % (Auto) Lymph # (Auto) [place] # (Auto) Eos # (Auto) Seg Neutrophils % Baso # (Auto) Seg Neutrophils # Seg Neuts % (Manual) Lymphocytes % (Manual) Monocytes % (Manual) Nucleated RBC % Seg Neutrophils # Man Lymphocytes # (Manual) Monocytes # (Manual) Eosinophils # (Manual) Basophils # (Manual) ABG pH POC ABG pCO2 POC ABG pO2 78.3 L ABG pO2 ABG HCO3 ABG O2 Saturation ABG Base Excess ABG Hemoglobin 7.9 L ABG Oxyhemoglobin ABG Sodium 134.8 L ABG Glucose Oxyhemoglobin Sodium Potassium Chloride Carbon Dioxide BUN Creatinine Glucose POC Glucose 107 H Calcium Phosphorus Magnesium Direct Bilirubin AST Alkaline Phosphatase Albumin Troponin T C-Reactive Protein Xtjkv-7-Hxizcofrn PEP Interpretation Triglycerides Lipase HDL Cholesterol PTH Intact Arterial Blood Glucose Arterial Blood Ionized Calcium Urine WBC (Auto) Urine Creatinine Urine Total Protein ZINA Screen Crossmatch 03/13/20 03/13/20 03/13/20 04:00 08:20 08:45 WBC Hgb 7.0 L RBC Hct 21.8 L MCV MCH RDW Plt Count Lymph % (Auto) Lymph # [place] % (Auto) [place] # Eos % (Auto) Lymph # (Auto) [place] # (Auto) Eos # (Auto) Seg Neutrophils % Baso # (Auto) Seg Neutrophils # Seg Neuts % (Manual) Lymphocytes % (Manual) Monocytes % (Manual) Nucleated RBC % Seg Neutrophils # Man Lymphocytes # (Manual) Monocytes # (Manual) Eosinophils # (Manual) Basophils # (Manual) ABG pH POC ABG pCO2 POC ABG pO2 ABG pO2 ABG HCO3 27.4 H ABG O2 Saturation ABG Base Excess ABG Hemoglobin 8.7 L ABG Oxyhemoglobin ABG Sodium ABG Glucose Oxyhemoglobin 94.6 L Sodium Potassium Chloride Carbon Dioxide BUN Creatinine Glucose POC Glucose Calcium Phosphorus Magnesium Direct Bilirubin AST Alkaline Phosphatase Albumin Troponin T C-Reactive Protein Oiaob-2-Zytbonkxs PEP Interpretation Triglycerides Lipase HDL Cholesterol PTH Intact Arterial Blood Glucose Arterial Blood Ionized Calcium Urine WBC (Auto) Urine Creatinine Urine Total Protein ZINA Screen Crossmatch See Detail 03/13/20 03/13/20 03/14/20 14:23 15:38 06:15 WBC Hgb RBC Hct MCV MCH RDW Plt Count Lymph % (Auto) Lymph # [place] % (Auto) [place] # Eos % (Auto) Lymph # (Auto) [place] # (Auto) Eos # (Auto) Seg Neutrophils % Baso # (Auto) Seg Neutrophils # Seg Neuts % (Manual) Lymphocytes % (Manual) Monocytes % (Manual) Nucleated RBC % Seg Neutrophils # Man Lymphocytes # (Manual) Monocytes # (Manual) Eosinophils # (Manual) Basophils # (Manual) ABG pH 7.462 H POC ABG pCO2 POC ABG pO2 75.1 L ABG pO2 ABG HCO3 ABG O2 Saturation ABG Base Excess ABG Hemoglobin 8.9 L ABG Oxyhemoglobin ABG Sodium 135.9 L ABG Glucose Oxyhemoglobin Sodium Potassium Chloride 94.2 L 93.1 L Carbon Dioxide BUN 32 H 45 H Creatinine 3.6 H 4.9 H Glucose POC Glucose Calcium Phosphorus Magnesium Direct Bilirubin AST Alkaline Phosphatase Albumin Troponin T C-Reactive Protein Uwwrk-4-Uydvatnhp PEP Interpretation Triglycerides Lipase HDL Cholesterol PTH Intact Arterial Blood Glucose Arterial Blood Ionized Calcium 4.5 L Urine WBC (Auto) Urine Creatinine Urine Total Protein ZINA Screen Crossmatch 03/14/20 03/14/20 03/15/20 06:15 Unknown 04:31 WBC 13.7 H Hgb 7.8 L 7.7 L 8.1 L RBC 3.13 L Hct 22.4 L 23.8 L 24.7 L MCV 76 L MCH 25 L RDW 21.6 H Plt Count 662 H 729 H Lymph % (Auto) Lymph # [place] % (Auto) [place] # Eos % (Auto) Lymph # (Auto) [place] # (Auto) 1.0 H Eos # (Auto) 0.6 H Seg Neutrophils % 71.5 H Baso # (Auto) Seg Neutrophils # 9.8 H Seg Neuts % (Manual) Lymphocytes % (Manual) Monocytes % (Manual) Nucleated RBC % Seg Neutrophils # Man Lymphocytes # (Manual) Monocytes # (Manual) Eosinophils # (Manual) Basophils # (Manual) ABG pH POC ABG pCO2 POC ABG pO2 ABG pO2 ABG HCO3 ABG O2 Saturation ABG Base Excess ABG Hemoglobin ABG Oxyhemoglobin ABG Sodium ABG Glucose Oxyhemoglobin Sodium Potassium Chloride Carbon Dioxide BUN Creatinine Glucose POC Glucose Calcium Phosphorus Magnesium Direct Bilirubin AST Alkaline Phosphatase Albumin Troponin T C-Reactive Protein Eozkn-2-Qxjfquwuy PEP Interpretation Triglycerides Lipase HDL Cholesterol PTH Intact Arterial Blood Glucose Arterial Blood Ionized Calcium Urine WBC (Auto) Urine Creatinine Urine Total Protein ZINA Screen Crossmatch 03/15/20 03/15/20 03/16/20 04:31 13:20 00:17 WBC Hgb RBC Hct MCV MCH RDW Plt Count Lymph % (Auto) Lymph # [place] % (Auto) [place] # Eos % (Auto) Lymph # (Auto) [place] # (Auto) Eos # (Auto) Seg Neutrophils % Baso # (Auto) Seg Neutrophils # Seg Neuts % (Manual) Lymphocytes % (Manual) Monocytes % (Manual) Nucleated RBC % Seg Neutrophils # Man Lymphocytes # (Manual) Monocytes # (Manual) Eosinophils # (Manual) Basophils # (Manual) ABG pH POC ABG pCO2 POC ABG pO2 ABG pO2 ABG HCO3 28.9 H ABG O2 Saturation ABG Base Excess 3.9 H ABG Hemoglobin 8.6 L ABG Oxyhemoglobin ABG Sodium ABG Glucose Oxyhemoglobin 94.9 L Sodium Potassium Chloride 95.9 L Carbon Dioxide BUN 60 H Creatinine 5.6 H Glucose POC Glucose 111 H Calcium Phosphorus Magnesium Direct Bilirubin AST Alkaline Phosphatase Albumin Troponin T C-Reactive Protein Lqmts-7-Jfytlqoaa PEP Interpretation Triglycerides Lipase HDL Cholesterol PTH Intact Arterial Blood Glucose Arterial Blood Ionized Calcium Urine WBC (Auto) Urine Creatinine Urine Total Protein ZINA Screen Crossmatch 03/16/20 03/16/20 03/17/20 04:52 04:52 04:55 WBC 13.9 H Hgb 8.3 L 9.1 L RBC 3.35 L Hct 25.8 L 28.2 L MCV 77 L MCH 25 L RDW 22.1 H Plt Count 799 H 818 H Lymph % (Auto) 11.1 L Lymph # [place] % (Auto) [place] # Eos % (Auto) 4.4 H Lymph # (Auto) [place] # (Auto) 0.9 H Eos # (Auto) 0.6 H Seg Neutrophils % 77.4 H Baso # (Auto) Seg Neutrophils # 10.8 H Seg Neuts % (Manual) Lymphocytes % (Manual) Monocytes % (Manual) Nucleated RBC % Seg Neutrophils # Man Lymphocytes # (Manual) Monocytes # (Manual) Eosinophils # (Manual) Basophils # (Manual) ABG pH POC ABG pCO2 POC ABG pO2 ABG pO2 ABG HCO3 ABG O2 Saturation ABG Base Excess ABG Hemoglobin ABG Oxyhemoglobin ABG Sodium ABG Glucose Oxyhemoglobin Sodium Potassium Chloride 93.8 L Carbon Dioxide BUN 72 H Creatinine 5.8 H Glucose POC Glucose Calcium Phosphorus Magnesium Direct Bilirubin AST Alkaline Phosphatase Albumin 2.7 L Troponin T C-Reactive Protein Hjwjx-8-Isenzgfyg PEP Interpretation Triglycerides Lipase HDL Cholesterol PTH Intact Arterial Blood Glucose Arterial Blood Ionized Calcium Urine WBC (Auto) Urine Creatinine Urine Total Protein ZINA Screen Crossmatch 03/17/20 03/18/20 03/19/20 04:55 10:28 05:55 WBC 15.1 H Hgb 9.4 L RBC Hct 29.3 L MCV 78 L MCH 25 L RDW 21.9 H Plt Count 775 H Lymph % (Auto) Lymph # [place] % (Auto) [place] # Eos % (Auto) 5.4 H Lymph # (Auto) [place] # (Auto) 0.9 H Eos # (Auto) 0.8 H Seg Neutrophils % 73.7 H Baso # (Auto) 0.2 H Seg Neutrophils # 11.1 H Seg Neuts % (Manual) Lymphocytes % (Manual) Monocytes % (Manual) Nucleated RBC % Seg Neutrophils # Man Lymphocytes # (Manual) Monocytes # (Manual) Eosinophils # (Manual) Basophils # (Manual) ABG pH POC ABG pCO2 POC ABG pO2 ABG pO2 ABG HCO3 ABG O2 Saturation ABG Base Excess ABG Hemoglobin ABG Oxyhemoglobin ABG Sodium ABG Glucose Oxyhemoglobin Sodium Potassium Chloride 93.5 L 94.4 L Carbon Dioxide BUN 40 H 37 H Creatinine 3.8 H 3.0 H Glucose 112 H POC Glucose Calcium Phosphorus Magnesium Direct Bilirubin AST Alkaline Phosphatase Albumin Troponin T C-Reactive Protein Zgoki-3-Spcqamybo PEP Interpretation Triglycerides Lipase HDL Cholesterol PTH Intact Arterial Blood Glucose Arterial Blood Ionized Calcium Urine WBC (Auto) Urine Creatinine Urine Total Protein ZINA Screen Crossmatch 03/19/20 05:55 WBC Hgb RBC Hct MCV MCH RDW Plt Count Lymph % (Auto) Lymph # [place] % (Auto) [place] # Eos % (Auto) Lymph # (Auto) [place] # (Auto) Eos # (Auto) Seg Neutrophils % Baso # (Auto) Seg Neutrophils # Seg Neuts % (Manual) Lymphocytes % (Manual) Monocytes % (Manual) Nucleated RBC % Seg Neutrophils # Man Lymphocytes # (Manual) Monocytes # (Manual) Eosinophils # (Manual) Basophils # (Manual) ABG pH POC ABG pCO2 POC ABG pO2 ABG pO2 ABG HCO3 ABG O2 Saturation ABG Base Excess ABG Hemoglobin ABG Oxyhemoglobin ABG Sodium ABG Glucose Oxyhemoglobin Sodium 136 L Potassium Chloride 92.0 L Carbon Dioxide BUN 28 H Creatinine 3.5 H Glucose POC Glucose Calcium Phosphorus Magnesium Direct Bilirubin AST Alkaline Phosphatase Albumin Troponin T C-Reactive Protein Qybql-9-Yzlutqzky PEP Interpretation Triglycerides Lipase HDL Cholesterol PTH Intact Arterial Blood Glucose Arterial Blood Ionized Calcium Urine WBC (Auto) Urine Creatinine Urine Total Protein ZINA Screen Crossmatch Allied health notes reviewed: nursing
[2020-03-19 14:43] LABS: Creatinine 24 Hour,Urine 0.3 (0.8-2.8); Creatinine,Urine 278.4 mg/dL (0.1-20.0)
--- NOTE | 2020-03-19 15:25 | Progress Note ---
Assessment and Plan Cultures: Urine culture grew 10-100,000 usual xavier. Blood culture 02/26/2020 no growth 02/29/2020 sputum culture: rare usual xvaier 03/06/2020 blood culture: no growth 03/07/2020 sputum culture: Ana Luisa 03/11/2020 ET aspirate: no growth thus far Assessment: 39 years old female with history of hypertension, previous kidney stone, hyperlipidemia and obesity admitted on 02/24/2020 due to a week history of severe epigastric abdominal pain radiated to the right flank and back: #Acute sepsis: Likely secondary to severe pancreatitis and related complications. Remains critically ill. #Acute severe pancreatitis: Unclear etiology. Initial non-contrasted CT showed no evidence of necrosis or pseudocyst or abscess formation. Repeat CT 03/05 with interval worsening of acute pancreatitis without clear evidence of necrosis, however was done without IV contrast due to her renal function. Ongoing fevers likely to due severe pancreatitis and ?related complications #Acute renal failure: now requiring dialysis. Nephrology on board. #Acute respiratory hypoxic failure: re-intubated 03/11/2020, back on the vent. #?Alcohol abuse Recommendations: -Monitor off antibiotics -Monitor fever, if more than 100 please obtain blood cultures We will follow Alan Lim MD [facility] ([facility] M: [phone] O: [phone] F: [phone] Subjective Date of service: 03/19/20 Principal diagnosis: HTNsive urgency; Morbid obesity; Ac. pancreatitis; Abdominal pain Interval history: Afebrile, white count remains elevated at 15. No other acute changes. Remains on room air. Objective - Exam Narrative Exam: General appearance: Alert no acute distress intubated Eyes: anicteric sclerae, limited HENT: Atraumatic; oropharynx endotracheal tube in place Lungs: Diminished breath sounds bilaterally CV: RRR Abdomen: Soft, distended, nontender Extremities: no edema, no cyanosis Skin: No rash. Psych: Nonagitated Neuro: Alert follows commands - Constitutional Vitals: Vital Signs Temp Pulse Resp BP Pulse Ox 98.6 F 98 H 18 161/89 95 03/19/20 07:44 03/19/20 07:44 03/19/20 07:44 03/19/20 07:44 03/19/20 08:26 Temperature -Last 24 Hours Temperature 98.6 F Temperature 98 F Temperature 98.0 F Temperature 98.0 F - Labs CBC & Chem 7: 03/19/20 05:55 03/19/20 05:55 Labs: Abnormal lab results 03/18/20 03/19/20 03/19/20 Range/Units 14:00 05:55 05:55 WBC 15.1 H (4.5-11.0) K/mm3 Hgb 9.4 L (10.1-14.3) gm/dl Hct 29.3 L (30.3-42.9) % MCV 78 L (79-97) fl MCH 25 L (28-32) pg RDW 21.9 H (13.2-15.2) % Plt Count 775 H (140-440) K/mm3 Eos % (Auto) 5.4 H (0.0-4.3) % Baxter # (Auto) 0.9 H (0.0-0.8) K/mm3 Eos # (Auto) 0.8 H (0.0-0.4) K/mm3 Baso # (Auto) 0.2 H (0.0-0.1) K/mm3 Seg Neutrophils % 73.7 H (40.0-70.0) % Seg Neutrophils # 11.1 H (1.8-7.7) K/mm3 Sodium 136 L (137-145) mmol/L Chloride 92.0 L (98-107) mmol/L BUN 28 H (7-17) mg/dL Creatinine 3.5 H (0.6-1.2) mg/dL Urine Creatinine 278.4 H (0.1-20.0) mg/dL Ur Creatinine 24 Hour 0.3 L (0.8-2.8)
--- NOTE | 2020-03-19 18:12 | Progress Note ---
Assessment and Plan Assessment and plan: --Ac.hypoxic resp. failure /s/p extubated 03/15/2020 Extubated 03/15/2020, on BiPAP and Ventimask Patient is refusing BiPAP. On nasal cannula oxygen Patient was intubated initially 02/29/2020, extubated 03/10/2020 Again went into respiratory failure reintubated 03/11/2020, extubated 03/15/2020 On nasal cannula oxygen, titrate O2 sats to more than 90% --Severe sepsis secondary to pneumonia and pancreatitis; s/p meropenem, completed total 14 days per ID ,follow cultures leukocytosis, tachycardia, tachypnea, fever, infiltrate on chest x-ray. Symptoms significantly improved -- Acute severe pancreatitis Initial non-contrasted CT showed no evidence of necrosis or pseudocyst or abscess formation. Repeat CT 03/05 with interval worsening of acute pancreatitis without clear evidence of necrosis with increased jessica-pancreatic fat stranding and disorganized fluid, Symptoms resolved --JUANIS/worsening renal function/on HD Initiated hemodialysis 03/03/2020. Hemodialysis per schedule, MWF If nephro recommend long-term HD Case management to set up outpatient HD --Severe metabolic encephalopathy/POA/resolved Patient is more alert and awake oriented x3 Back to her baseline -- Hypertensive emergency POA s/p Cardene drip, closely monitor Blood pressures moderate control Continue multiple antihypertensives PRN labetalol --Anemia; hemoglobin 9.1 today No external evidence of bleeding Total 3 units of PRBC transfusion GI evaluated , patient is stable now --Chest pain/positive troponins;NSTEMI 2 Probably nonspecific , patient has acute kidney injury on dialysis continue current med management, follow serial cardiac enzymes, EF 60-65% on ECHO, cardiology evaluated and signed off conservative management -- Bilateral pleural effusions. Compressive atelectasis. Incentive spirometry --Alcohol withdrawal . Chronic alcohol use No new alcohol withdrawal symptoms Patient counseled and advised to quit alcohol intake Patient verbalized understanding --Severe metabolic acidosis; resolved On HD per nephrology --Severe protein calorie malnutrition and hypoalbuminemia Nutrition supplements, nutrition consult and supportive care --Medical noncompliance counseled the importance of adhering to the treatment plan Verbalized understanding -- DVT prophylaxis Patient placed on subcutaneous heparin. --Obesity; BMI 37.9 patient needs weight reduction when medically stable. -- Full code status Follow GI and pulmonary evaluation and recommendations We will closely monitor the patient and adjust the management as needed Patient is stable to be transferred out of ICU to telemetry DC planning per case management Possible discharge in 1 to 2 days if stable 03/15; patient is more alert and awake, remains intubated on vent, wean and extubate as tolerated DC planning per case management 03/16; patient received hemodialysis today stable to be transferred out of ICU to telemetry, DC planning per case management 03/17; DC planning per case management, outpatient HD placement if nephrology recommend long-term hemodialysis ; disposition per nephrology , pending decision for long-term h emodialysis .possible discharge in 1 to 2 days if stable 03/19; outpatient HD scheduling per case management Brief history; 39-year-old -[place] female with known history of hypertension, history of kidney stones, hyperlipidemia and obesity presenting to the emergency room today complaining of abdominal pain radiating towards right flank and back. Pain is said to be 10/10 in severity. No known relieving or exacerbating factor. She has known history of kidney stones in the past. She has had some nausea but no vomiting and no diarrhea. She denies any hematuria or dysuria, she denies any fever or chills. Patient states she is currently on her menses. Upon arrival in the emergency room patient had elevated blood pressure with systolic in the 200s and diastolic in the 120s. She has had multiple rounds of IV labetalol withoutany significant improvement. Patient admits that she has been out of her medication for a couple of weeks. work-up in the emergency room reveals elevated lipase and CT of the abdomen and pelvis reveals acute pancreatitis. Patient also had hypertensive emergency on Cardene drip admitted to ICU, complicated by acute renal failure, acute respiratory failure requiring intubation, alcohol withdrawal on CIWA protocol, patient's renal function worsened requiring hemodialysis. Patient was ultimately weaned and extubated, evaluated by pulmonary critical GI surgery, nephrology and ID, Stabilized extubated transfer to medical floor,, discharge planning per case management, setting up outpatient HD placement. History Interval history: I have seen and examined the patient at the bedside Patient's chart and medications reviewed Patient feels better no new complaints Vital signs noted Patient wants to go home Receiving hemodialysis per schedule Need outpatient HD chair allotment per case management Hospitalist Physical - Constitutional Vitals: Temp Pulse Resp BP Pulse Ox 98.6 F 98 H 18 161/89 95 03/19/20 07:44 03/19/20 07:44 03/19/20 07:44 03/19/20 07:44 03/19/20 08:26 General appearance: Present: no acute distress, well-nourished, obese, other (Intubated) - EENT Eyes: Present: PERRL, EOM intact - Neck Neck: Present: supple, normal ROM - Respiratory Respiratory: bilateral: diminished, negative: rales, rhonchi, wheezing - Cardiovascular Rhythm: regular Heart Sounds: Present: S1 & S2 - Extremities Extremities: no ischemia, No edema - Abdominal General gastrointestinal: soft, non-tender, non-distended, normal bowel sounds - Integumentary Integumentary: Present: clear, warm - Psychiatric Psychiatric: appropriate mood/affect, cooperative - Neurologic Neurologic: CNII-XII intact, moves all extremities HEART Score - HEART Score Troponin: Troponin T 0.085 ng/mL (0.00-0.029) H 03/11/20 14:31 Results - Labs CBC & Chem 7: 03/19/20 05:55 03/19/20 05:55 Labs: Laboratory Last Values WBC 15.1 K/mm3 (4.5-11.0) H 03/19/20 05:55 RBC 3.75 M/mm3 (3.65-5.03) 03/19/20 05:55 Hgb 9.4 gm/dl (10.1-14.3) L 03/19/20 05:55 Hct 29.3 % (30.3-42.9) L 03/19/20 05:55 MCV 78 fl (79-97) L 03/19/20 05:55 MCH 25 pg (28-32) L 03/19/20 05:55 MCHC 32 % (30-34) 03/19/20 05:55 RDW 21.9 % (13.2-15.2) H 03/19/20 05:55 Plt Count 775 K/mm3 (140-440) H 03/19/20 05:55 Lymph % (Auto) 14.1 % (13.4-35.0) 03/19/20 05:55 Catron % (Auto) 5.7 % (0.0-7.3) 03/19/20 05:55 Eos % (Auto) 5.4 % (0.0-4.3) H 03/19/20 05:55 Baso % (Auto) 1.1 % (0.0-1.8) 03/19/20 05:55 Lymph # (Auto) 2.1 K/mm3 (1.2-5.4) 03/19/20 05:55 Catron # (Auto) 0.9 K/mm3 (0.0-0.8) H 03/19/20 05:55 Eos # (Auto) 0.8 K/mm3 (0.0-0.4) H 03/19/20 05:55 Baso # (Auto) 0.2 K/mm3 (0.0-0.1) H 03/19/20 05:55 Add Manual Diff Complete 03/11/20 04:32 Total Counted 100 03/11/20 04:32 Seg Neutrophils % 73.7 % (40.0-70.0) H 03/19/20 05:55 Seg Neuts % (Manual) 81.0 % (40.0-70.0) H 03/11/20 04:32 Band Neutrophils % 1.0 % 03/11/20 04:32 Lymphocytes % (Manual) 8.0 % (13.4-35.0) L 03/11/20 04:32 Reactive Lymphs % (Man) 0 % 03/11/20 04:32 Monocytes % (Manual) 8.0 % (0.0-7.3) H 03/11/20 04:32 Eosinophils % (Manual) 1.0 % (0.0-4.3) 03/11/20 04:32 Basophils % (Manual) 1.0 % (0.0-1.8) 03/11/20 04:32 Metamyelocytes % 0 % 03/11/20 04:32 Myelocytes % 0 % 03/11/20 04:32 Promyelocytes % 0 % 03/11/20 04:32 Blast Cells % 0 % 03/11/20 04:32 Nucleated RBC % Not Reportable 03/11/20 04:32 Seg Neutrophils # 11.1 K/mm3 (1.8-7.7) H 03/19/20 05:55 Seg Neutrophils # Man 18.1 K/mm3 (1.8-7.7) H 03/11/20 04:32 Band Neutrophils # 0.2 K/mm3 03/11/20 04:32 Lymphocytes # (Manual) 1.8 K/mm3 (1.2-5.4) 03/11/20 04:32 Abs React Lymphs (Man) 0.0 K/mm3 03/11/20 04:32 Monocytes # (Manual) 1.8 K/mm3 (0.0-0.8) H 03/11/20 04:32 Eosinophils # (Manual) 0.2 K/mm3 (0.0-0.4) 03/11/20 04:32 Basophils # (Manual) 0.2 K/mm3 (0.0-0.1) H 03/11/20 04:32 Metamyelocytes # 0.0 K/mm3 03/11/20 04:32 Myelocytes # 0.0 K/mm3 03/11/20 04:32 Promyelocytes # 0.0 K/mm3 03/11/20 04:32 Blast Cells # 0.0 K/mm3 03/11/20 04:32 WBC Morphology Not Reportable 03/11/20 04:32 Hypersegmented Neuts Not Reportable 03/11/20 04:32 Hyposegmented Neuts Not Reportable 03/11/20 04:32 Hypogranular Neuts Not Reportable 03/11/20 04:32 Smudge Cells Not Reportable 03/11/20 04:32 Toxic Granulation Not Reportable 03/11/20 04:32 Toxic Vacuolation Not Reportable 03/11/20 04:32 Dohle Bodies Not Reportable 03/11/20 04:32 Pelger-Huet Anomaly Not Reportable 03/11/20 04:32 Maia Rods Not Reportable 03/11/20 04:32 Platelet Estimate Consistent w auto 03/11/20 04:32 Clumped Platelets Not Reportable 03/11/20 04:32 Plt Clumps, EDTA Not Reportable 03/11/20 04:32 Large Platelets Not Reportable 03/11/20 04:32 Giant Platelets Not Reportable 03/11/20 04:32 Platelet Satelliting Not Reportable 03/11/20 04:32 Plt Morphology Comment Not Reportable 03/11/20 04:32 RBC Morphology Not Reportable 03/11/20 04:32 Dimorphic RBCs Not Reportable 03/11/20 04:32 Polychromasia Not Reportable 03/11/20 04:32 Hypochromasia 1+ 03/11/20 04:32 Poikilocytosis Not Reportable 03/11/20 04:32 Anisocytosis 1+ 03/11/20 04:32 Microcytosis Not Reportable 03/11/20 04:32 Macrocytosis Not Reportable 03/11/20 04:32 Spherocytes Not Reportable 03/11/20 04:32 Pappenheimer Bodies Not Reportable 03/11/20 04:32 Sickle Cells Not Reportable 03/11/20 04:32 Target Cells Not Reportable 03/11/20 04:32 Tear Drop Cells Rare 03/11/20 04:32 Ovalocytes Few 03/11/20 04:32 Helmet Cells Not Reportable 03/11/20 04:32 Jackson-Keller Bodies Not Reportable 03/11/20 04:32 [place] Rings Not Reportable 03/11/20 04:32 Mirna Cells Not Reportable 03/11/20 04:32 Bite Cells Not Reportable 03/11/20 04:32 Crenated Cell Not Reportable 03/11/20 04:32 Elliptocytes Not Reportable 03/11/20 04:32 Acanthocytes (Spur) Not Reportable 03/11/20 04:32 Rouleaux Not Reportable 03/11/20 04:32 Hemoglobin C Crystals Not Reportable 03/11/20 04:32 Schistocytes Not Reportable 03/11/20 04:32 Malaria parasites Not Reportable 03/11/20 04:32 Edgardo Bodies Not Reportable 03/11/20 04:32 Hem Pathologist Commnt No 03/11/20 04:32 PT 14.1 Sec. (12.2-14.9) 03/11/20 07:31 INR 1.07 (0.87-1.13) 03/11/20 07:31 APTT 32.0 Sec. (24.2-36.6) 03/11/20 07:31 ABG pH 7.420 pH Units (7.350-7.450) 03/15/20 13:20 POC ABG pCO2 40.5 mmHg (32.0-48.0) 03/13/20 14:23 ABG pCO2 45.5 mm Hg 03/15/20 13:20 POC ABG pO2 75.1 mmHg (83-108) L 03/13/20 14:23 ABG pO2 85.8 mm Hg (80.0-90.0) 03/15/20 13:20 POC ABG HCO3 28.3 03/13/20 14:23 ABG HCO3 28.9 mmol/L (20.0-26.0) H 03/15/20 13:20 ABG O2 Saturation 97.1 % (95.0-99.0) 03/15/20 13:20 ABG O2 Content 11.6 (0.0-44) 03/15/20 13:20 POC ABG Base Excess 4.2 03/13/20 14:23 ABG Base Excess 3.9 mmol/L (-2.0-3.0) H 03/15/20 13:20 ABG Hemoglobin 8.6 gm/dl (12.0-16.0) L 03/15/20 13:20 ABG Oxyhemoglobin 90.5 (94-98) L 03/06/20 04:41 ABG Carboxyhemoglobin 1.7 % (0.0-5.0) 03/15/20 13:20 ABG Methemoglobin 0.5 % (0.0-1.5) 03/15/20 13:20 ABG Sodium 135.9 mmol/L (136.0-145.0) L 03/13/20 14:23 ABG Potassium 3.8 mmol/L (3.40-4.50) 03/13/20 14:23 ABG Chloride 98.0 mmol/L (98-107) 03/13/20 14:23 ABG Glucose 89 mg/dL (65-95) 03/13/20 14:23 Oxyhemoglobin 94.9 % (95.0-99.0) L 03/15/20 13:20 Carboxyhemoglobin 1 (0.5-1.5) 03/06/20 04:41 FiO2 30 % 03/15/20 13:20 Sodium 136 mmol/L (137-145) L 03/19/20 05:55 Potassium 3.8 mmol/L (3.6-5.0) 03/19/20 05:55 Chloride 92.0 mmol/L (98-107) L 03/19/20 05:55 Carbon Dioxide 25 mmol/L (22-30) 03/19/20 05:55 Anion Gap 23 mmol/L 03/19/20 05:55 BUN 28 mg/dL (7-17) H 03/19/20 05:55 Creatinine 3.5 mg/dL (0.6-1.2) H 03/19/20 05:55 Estimated GFR 18 ml/min 03/19/20 05:55 BUN/Creatinine Ratio 8 % 03/19/20 05:55 Glucose 80 mg/dL (65-100) 03/19/20 05:55 POC Glucose 81 (70-105) 03/19/20 17:11 Lactic Acid 0.90 mmol/L (0.7-2.0) 02/27/20 19:33 Calcium 9.8 mg/dL (8.4-10.2) 03/19/20 05:55 Phosphorus 6.10 mg/dL (2.5-4.5) H 03/01/20 04:37 Magnesium 2.00 mg/dL (1.7-2.3) 03/07/20 05:03 Total Bilirubin 0.30 mg/dL (0.1-1.2) 03/16/20 04:52 Direct Bilirubin 0.6 mg/dL (0-0.2) H 03/05/20 06:00 Indirect Bilirubin 0.3 mg/dL 03/05/20 06:00 AST 30 units/L (5-40) 03/16/20 04:52 ALT 14 units/L (7-56) 03/16/20 04:52 Alkaline Phosphatase 75 units/L (35-129) 03/16/20 04:52 Troponin T 0.085 ng/mL (0.00-0.029) H 03/11/20 14:31 C-Reactive Protein 36.50 mg/dL (0.00-1.30) H 03/01/20 11:06 Serum Total Protein 6.3 g/dL (6.1-8.1) 02/26/20 04:39 Total Protein 7.6 g/dL (6.3-8.2) 03/16/20 04:52 Albumin 2.7 g/dL (3.9-5) L 03/16/20 04:52 Albumin/Globulin Ratio 0.6 % 03/16/20 04:52 Wysbp-0-Amcwcpaip 0.7 g/dL (0.2-0.3) H 02/26/20 04:39 Klkch-4-Mzjtvdceu 0.8 g/dL (0.5-0.9) 02/26/20 04:39 Beta Globulins 0.4 g/dL (0.2-0.5) 02/26/20 04:39 Gamma Globulins 1.2 g/dL (0.8-1.7) 02/26/20 04:39 Abnorm Protein Band 1 see below 02/26/20 04:39 PEP Interpretation see below H 02/26/20 04:39 Triglycerides 247 mg/dL (2-149) H 03/11/20 14:31 Cholesterol 158 mg/dL (50-199) 03/11/20 14:31 LDL Cholesterol Direct 80 mg/dL (50-130) 03/11/20 14:31 HDL Cholesterol 28 mg/dL (40-59) L 03/11/20 14:31 Cholesterol/HDL Ratio 5.64 % 03/11/20 14:31 Lipase 72 units/L (13-60) H 03/04/20 19:00 HCG, Qual Negative (Negative) 02/24/20 02:53 PTH Intact 911.3 pg/mL (15-65) H 02/26/20 08:15 Arterial Blood Glucose 89 mg/dL (65-95) 03/13/20 14:23 Arterial Blood Ionized Calcium 4.5 mg/dL (4.6-5.3) L 03/13/20 14:23 Urine Color Yellow (Yellow) 02/24/20 Unknown Urine Turbidity Clear (Clear) 02/24/20 Unknown Urine pH 6.0 (5.0-7.0) 02/24/20 Unknown Ur Specific [place] 1.020 (1.003-1.030) 02/24/20 Unknown Urine Protein >500 mg/dL (Negative) 02/24/20 Unknown Urine Glucose (UA) 50 mg/dL (Negative) 02/24/20 Unknown Urine Ketones Neg mg/dL (Negative) 02/24/20 Unknown Urine Blood Lg (Negative) 02/24/20 Unknown Urine Nitrite Neg (Negative) 02/24/20 Unknown Urine Bilirubin Neg (Negative) 02/24/20 Unknown Urine Urobilinogen < 2.0 mg/dL (<2.0) 02/24/20 Unknown Ur Leukocyte Esterase Neg (Negative) 02/24/20 Unknown Urine WBC (Auto) 11.0 /HPF (0.0-6.0) H 02/24/20 Unknown Urine RBC (Auto) 149.0 /HPF (0.0-6.0) 02/24/20 Unknown U Epithel Cells (Auto) 5.0 /HPF (0-13.0) 02/24/20 Unknown Urine Bacteria (Auto) 1+ /HPF (Negative) 02/24/20 Unknown Urine Mucus Few /HPF 02/24/20 Unknown Urine Total Volume 115 ml 03/18/20 14:00 Urine Creatinine 278.4 mg/dL (0.1-20.0) H 03/18/20 14:00 Ur Creatinine 24 Hour 0.3 (0.8-2.8) L 03/18/20 14:00 Protein/Creatinin Ratio 0.93 02/25/20 22:55 Urine Total Protein 150 mg/dL (5-11.8) H 02/25/20 22:55 ZINA Screen Positive (Negative) H 02/26/20 04:39 Proteinase 3 (PR3) Ab <1.0 AI (<1.0) 02/26/20 04:39 Myeloperoxidase Ab <1.0 AI (<1.0) 02/26/20 04:39 Double Strand DNA Ab See scanned result 03/06/20 14:46 Complement C3 153 mg/dL (83-193) 02/26/20 04:39 Complement C4 35 mg/dL (15-57) 02/26/20 04:39 Coronavirus (PCR) Negative (Negative) 03/09/20 09:12 Hepatitis A IgM Ab Non-reactive (NonReactive) 03/03/20 12:34 Hep Bs Antigen Non-reactive (Negative) 03/03/20 12:34 Hep B Core IgM Ab Non-reactive (NonReactive) 03/03/20 12:34 Hepatitis C Antibody Non-reactive (NonReactive) 03/03/20 12:34 Blood Type AB POSITIVE 03/13/20 08:45 Antibody Screen Negative 03/13/20 08:45 Crossmatch See Detail 03/13/20 08:45 - Diagnostic Impressions Diagnostic Impressions: Echocardiogram 02/26/20 09:11 Transthoracic Echocardiogram Indication: Cardiomegaly BP: 149/92 HR: 122 Conclusions *Global left ventricular systolic function is normal. *The estimated ejection fraction is 60-65%. *Moderate to severe concentric left ventricular hypertrophy is observed. *The left atrium is mild to moderately dilated. *The aortic valve leaflets are moderately thickened. *A mean gradient of 22.39 mmHg across the outflow tract is likely not due to but hyperdynamic flow and LVH. *There is trace tricuspid regurgitation. Findings Left Ventricle: The left ventricular chamber size is normal. Moderate to severe concentric left ventricular hypertrophy is observed. Global left ventricular systolic function is normal. The estimated ejection fraction is 60-65%. Left Atrium: The left atrium is mild to moderately dilated. Right Ventricle: The right ventricular cavity size is normal. The right ventricular global systolic function is normal. Right Atrium: The right atrial cavity size is normal. Aortic Valve: The aortic valve leaflets are moderately thickened. There is no evidence of aortic regurgitation. The mean gradient of the aortic valve is 22.39 mmHg. Mitral Valve: The mitral valve leaflets are mildly thickened. There is trace of mitral regurgitation. There is no evidence of mitral stenosis. Tricuspid Valve: There is trace tricuspid regurgitation. No pulmonary hypertension is noted. Pulmonic Valve: There is trace pulmonic regurgitation. Pericardium: There is no pericardial effusion. Aorta: There is no dilatation of the ascending aorta. There is no dilatation of the aortic root. Venous: The inferior vena cava appears normal in size. Measurements Chambers 2D Name Value Normal Range IVSd (2D) 1.8 cm (0.6 - 1.1) LVPWd (2D) 1.74 cm (0.6 - 1.1) LVIDd (2D) 4.57 cm (3.7 - 5.6) LVIDs (2D) 2.73 cm (2 - 3.8) LV FS (2D) 40.27 % - EF Teichholz (2D) 71.04 % - Ao root diameter (2D) 2.79 cm (2 - 3.7) Volumes/Mass Name Value Normal Range LA ESV SP 4CH (A/L) 54.18 ml - LA ESV SP 2CH (A/L) 61.84 ml - LA ESV BP (A/L) 58.1 ml - LA ESV BP (A/L) index 30.74 ml/m2 - LA ESV SP 4CH (MOD) 52.89 ml - LA ESV SP 2CH (MOD) 60.65 ml - LA ESV BP (MOD) 56.77 ml - LA ESV BP (MOD) index 30.04 ml/m2 - LV EDV SP 4CH (MOD) 164.2 ml - LV ESV SP 4CH (MOD) 58.04 ml - EF SP 4CH (MOD) 64.65 % - Diastolic/Systolic Function Name Value Normal Range MV E-wave Vmax 1.38 m/sec - MV deceleration time 92.78 msec - MV A-wave Vmax 1.44 m/sec - MV E:A ratio 0.95 ratio - Aortic Valve Name Value Normal Range AV Vmax 3.08 m/sec - AV VTI 36.74 cm - AV peak gradient 37.98 mmHg - AV mean gradient 22.39 mmHg - LVOT diameter 2.01 cm - LVOT Vmax 2.45 m/sec - LVOT VTI 29.85 cm - LVOT peak gradient 24.04 mmHg - LVOT mean gradient 11.11 mmHg - SV LVOT 94.73 ml - JADA (continuity Vmax) 2.52 cm2 - JADA (continuity VTI) 2.58 cm2 - Ascending Ao 2.64 cm - Mitral Valve Name Value Normal Range MV PHT 37.88 msec - MVA (PHT) 5.81 cm2 - Tricuspid Valve Name Value Normal Range IVC diameter 1.93 cm (1.2 - 2.3) Pulmonic Valve/Qp:Qs Name Value Normal Range PV Vmax 2.83 m/sec - PV VTI 45.88 cm - PV peak gradient 32.06 mmHg - PV mean gradient 16.11 mmHg - UT end-diastolic Vmax 0.81 m/sec - RVOT Vmax 1.82 m/sec - RVOT VTI 25.12 cm - RVOT peak gradient 13.3 mmHg - Franks/IV: Voiding Method Toilet IV Catheter Type [Right VAS Cath Internal Jugular] IV Catheter Type [Left Upper INT / Saline Lock arm] IV Catheter Type [Right Upper INT / Saline Lock arm] IV Catheter Type [Right INT / Saline Lock Forearm] IV Catheter Type [Right Wrist] Peripheral IV IV Catheter Type [Right Peripheral IV Antecubital] Active Medications - Current Medications Current Medications: Generic Name Dose Route Start Last Admin Trade Name Freq PRN Reason Stop Dose Admin Acetaminophen 650 mg 02/26/20 16:23 03/14/20 22:03 Tylenol PO 650 mg Q4H PRN Administration Pain, Mild (1-3)/ Temp >100. Albuterol 2.5 mg 02/27/20 17:55 Proventil IH Q4HRT PRN Shortness Of Breath Amlodipine Besylate 10 mg 02/28/20 10:00 03/19/20 09:15 Amlodipine PO 10 mg QDAY INDU Administration Aspirin 325 mg 03/15/20 11:00 03/19/20 09:15 Aspirin PO 325 mg QDAY INDU Administration Dextrose 50 ml 02/29/20 08:00 03/01/20 00:20 D50w (25gm) Syringe IV 10 ml Q30MIN PRN Administration HYPOGLYCEMIA Protocol Epoetin Prosper 10,000 unit 03/12/20 10:00 03/16/20 11:58 Procrit IV 10,000 unit NIKOLAY PRN Administration hemodialysis Heparin Sodium (Porcine) 5,000 unit 03/11/20 14:00 03/19/20 14:01 Heparin SUB-Q 5,000 unit Q8HR INDU Administration Hydralazine HCl 25 mg 03/04/20 14:00 03/19/20 14:00 Apresoline PO 25 mg Q8HR INDU Administration Hydrophilic Ointment 1 applic 03/11/20 06:01 Vaseline Lip Therapy TP Q2HR PRN Dry Lips Sodium Chloride 100 mls @ 999 mls/hr 03/08/20 17:05 Nacl 0.9% IV NIKOLAY PRN Hypotension Labetalol HCl 10 mg 02/28/20 09:00 03/11/20 03:04 Labetalol IV 10 mg Q4H PRN Administration Hypertension Metoprolol Tartrate 25 mg 02/28/20 10:00 03/19/20 09:15 Metoprolol PO 25 mg BID INDU Administration Morphine Sulfate 2 mg 03/11/20 05:13 03/16/20 01:46 Morphine IV 2 mg Q4H PRN Administration Pain, Moderate (4-6) Multi-Ingred Cream/Lotion/Oil/Oint 1 applic 03/11/20 06:01 Artificial Tears Ophth Oint OU Q4HR PRN Dry Eye(s) Nitroglycerin 0.4 mg 03/11/20 05:14 Nitrostat SL .Q5MIN PRN Chest Pain Ondansetron HCl 4 mg 02/24/20 06:45 02/25/20 23:33 Zofran IV 4 mg Q8H PRN Administration Nausea And Vomiting Pantoprazole Sodium 40 mg 03/16/20 11:00 03/19/20 09:15 Protonix PO 40 mg QDAC INDU Administration Quetiapine Fumarate 100 mg 03/16/20 22:00 03/18/20 21:50 Seroquel PO 100 mg QHS INDU Administration Sodium Chloride 10 ml 02/24/20 10:00 03/19/20 09:17 Sodium Chloride Flush Syringe 10 Ml IV 10 ml BID INDU Administration Sodium Chloride 10 ml 02/24/20 06:45 03/10/20 09:06 Sodium Chloride Flush Syringe 10 Ml IV 10 ml PRN PRN Administration LINE FLUSH Nutrition/Malnutrition Assess - Dietary Evaluation Nutrition/Malnutrition Findings: Nutrition Notes Start: 02/24/20 13:42 Freq: Status: Active Protocol: Document 03/19/20 11:48 BRANDI (Rec: 03/19/20 12:04 BRANDI [id number]) Co-Sign 03/19/20 11:48 MK Nutrition Notes Need for Assessment generated from: Education Initial or Follow up Reassessment Current Diagnosis Acute Kidney Injury,CKD (stage V CKD),Sepsis,Hypertension, Respiratory Failure, Hyperlipidemia Other Pertinent Diagnosis HD, acute pancreatitis Current Diet Renal Labs/Tests BUN 28 Cr 3.5 BG 80 Pertinent Medications Reviewed Height 5 ft 1 in Weight 91 kg [place] Body Weight (kg) 47.72 BMI 37.9 Weight Status Obese Subjective/Other Information F/u intakes. Pt reported eating mostly fruit from tray and drinking juices. Wants sandwiches. Not receiving ONS. Discussed the importance of protein with HD, a healthy renal diet, and encouraged her to f/u with out-patient HD RD . Noted MD signed off on pancreatitis. Percent of energy/protein needs met: 25%/0% Burn Absent Trauma Absent GI Symptoms None Current % PO Negligible Minimum of two criteria No Fluid Accumulation Moderate to Severe (severe) #2 Nutrition Diagnosis Inadequate oral intake As Evidenced by Signs and Symptoms pt mostly drinking fluids and eating fruit. Diagnosis Progress(for reassessment Continues documentation) #1 Nutrition Diagnosis Food and nutrition-related knowledge deficit As Evidenced by Signs and Symptoms Pt had questions about the HD diet. Diagnosis Progress(for reassessment Resolved documentation) Is patient on ventilator? Yes Is Patient Ambulatory and/or Out of Bed No REE-([facility]-confined to bed) [phone] Calculation Used for Recommendations [facility] Additional Notes Pro: 83-104g (1.2-1.5g/kg AdBW 69kg) Fluid: 1ml/kcal Nutrition Intervention Change Diet Order: Continue renal diet d/c mechanical soft Add Supplement/Snack (indicate name/kcal Nepro daily /protein ) Provides kCal: 425 Provides Protein (gm) 19 Teaching Recipient Patient Learning Readiness Good Teaching Methods Discussion,Handout Response to Teaching Verbalize understanding Education Handouts Provided Renal MyPlate Barriers to Learning No Barriers RD phone number provided Yes Patient aware of follow up options Yes Goal #1 Meet at least 75% of energy and protein needs. Anticipated Discharge Needs: Renal diet Follow-Up By: 03/24/20 Additional Comments F/u intakes, ONS acceptance, and dry wt
[2020-03-19] MEDS: QUEtiapine 100 MG TAB PO SCH (21:09)
[2020-03-20] MEDS: hydrALAZINE 25 MG TAB PO SCH ×4 (05:29→21:23)
[2020-03-20] MEDS: HEPARIN 5,000 UNIT/1 ML VIAL SUB-Q SCH ×3 (05:30→21:24)
[2020-03-20 06:35] LABS: Calcium 10.2 mg/dL (8.4-10.2)
[2020-03-20] MEDS: ASPIRIN 325 MG TAB PO SCH (09:15)
[2020-03-20] MEDS: amLODIPine 10 MG TAB PO SCH (09:15)
[2020-03-20] MEDS: METOPROLOL TARTRATE 25 MG TAB PO SCH ×2 (09:15→21:21)
[2020-03-20] MEDS: PANTOPRAZOLE 40 MG TAB PO SCH (09:16)
--- NOTE | 2020-03-20 10:10 | Progress Note ---
Assessment and Plan Assessment and plan: 39-year-old -[place] female with known history of hypertension, history of kidney stones, hyperlipidemia and obesity presenting to the emergency room today complaining of abdominal pain radiating towards right flank and back. Pain is said to be 10/10 in severity. No known relieving or exacerbating factor. She has known history of kidney stones in the past. She has had some nausea but no vomiting and no diarrhea. She denies any hematuria or dysuria, she denies any fever or chills. Patient states she is currently on her menses. Upon arrival in the emergency room patient had elevated blood pressure with systolic in the 200s and diastolic in the 120s. She has had multiple rounds of IV labetalol withoutany significant improvement. Patient admits that she has been out of her medication for a couple of weeks. work-up in the emergency room reveals elevated lipase and CT of the abdomen and pelvis reveals acute pancreatitis. Patient also had hypertensive emergency on Cardene drip admitted to ICU, complicated by acute renal failure, acute respiratory failure requiring intubation, alcohol withdrawal on CIWA protocol, patient's renal function worsened requiring hemodialysis. Patient was ultimately weaned and extubated, evaluated by pulmonary critical GI surgery, nephrology and ID, Stabilized extubated transfer to medical floor,, discharge planning per case management, setting up outpatient HD placement. --Ac.hypoxic resp. failure /s/p extubated 03/15/2020 Extubated 03/15/2020, on BiPAP and Ventimask Patient is refusing BiPAP. On nasal cannula oxygen Patient was intubated initially 02/29/2020, extubated 03/10/2020 Again went into respiratory failure reintubated 03/11/2020, extubated 03/15/2020 On nasal cannula oxygen, titrate O2 sats to more than 90% --Severe sepsis secondary to pneumonia and pancreatitis; s/p meropenem, completed total 14 days per ID ,follow cultures leukocytosis, tachycardia, tachypnea, fever, infiltrate on chest x-ray. Symptoms significantly improved -- Acute severe pancreatitis Initial non-contrasted CT showed no evidence of necrosis or pseudocyst or abscess formation. Repeat CT 03/05 with interval worsening of acute pancreatitis without clear evidence of necrosis with increased jessica-pancreatic fat stranding and disorganized fluid, Symptoms resolved --JUANIS/worsening renal function/on HD Initiated hemodialysis 03/03/2020. Hemodialysis per schedule, MWF If nephro recommend long-term HD Case management to set up outpatient HD --Severe metabolic encephalopathy/POA/resolved Patient is more alert and awake oriented x3 Back to her baseline -- Hypertensive emergency POA s/p Cardene drip, closely monitor Blood pressures moderate control Continue multiple antihypertensives PRN labetalol --Anemia; hemoglobin 9.1 today No external evidence of bleeding Total 3 units of PRBC transfusion GI evaluated , patient is stable now --Chest pain/positive troponins;NSTEMI 2 Probably nonspecific , patient has acute kidney injury on dialysis continue current med management, follow serial cardiac enzymes, EF 60-65% on ECHO, cardiology evaluated and signed off conservative management -- Bilateral pleural effusions. Compressive atelectasis. Incentive spirometry --Alcohol withdrawal . Chronic alcohol use No new alcohol withdrawal symptoms Patient counseled and advised to quit alcohol intake Patient verbalized understanding --Severe metabolic acidosis; resolved On HD per nephrology --Severe protein calorie malnutrition and hypoalbuminemia Nutrition supplements, nutrition consult and supportive care --Medical noncompliance counseled the importance of adhering to the treatment plan Verbalized understanding -- DVT prophylaxis Patient placed on subcutaneous heparin. --Obesity; BMI 37.9 patient needs weight reduction when medically stable. -- Full code status Follow GI and pulmonary evaluation and recommendations We will closely monitor the patient and adjust the management as needed Patient is stable to be transferred out of ICU to telemetry DC planning per case management Possible discharge in 1 to 2 days if stable 03/15; patient is more alert and awake, remains intubated on vent, wean and extubate as tolerated DC planning per case management 03/16; patient received hemodialysis today stable to be transferred out of ICU to telemetry, DC planning per case management 03/17; DC planning per case management, outpatient HD placement if nephrology recommend long-term hemodialysis ; disposition per nephrology , pending decision for long-term hemodialysis .possible discharge in 1 to 2 days if stable 03/19; outpatient HD scheduling per case management 03/20: Stable, awaiting HD. BP still elevated will adjust BP meds INCREASING Hydralazine to 50mg TID History Interval history: Patient seen and examined, sitting up with no new complaints at this time. Hospitalist Physical - Physical exam Narrative exam: VITAL SIGNS: Reviewed. GENERAL: The patient appears normally developed, Vital signs as documented. HEAD: No signs of head trauma. EYES: Pupils are equal. Extraocular motions intact. EARS: Hearing grossly intact. MOUTH: Oropharynx is normal. NECK: No adenopathy, no JVD. CHEST: Chest with clear breath sounds bilaterally. No wheezes, rales, or rhonchi. CARDIAC: Regular rate and rhythm. S1 and S2, without murmurs, gallops, or rubs. VASCULAR: No Edema. Peripheral pulses normal and equal in all extremities. ABDOMEN: Soft, non tender and non distended. No rebound or guarding, and no masses palpated. Bowel Sounds normal. MUSCULOSKELETAL: Good range of motion of all major joints. Extremities without clubbing, cyanosis or edema. NEUROLOGIC EXAM: Alert and oriented x 3 No focal sensory or strength deficits. Speech normal. Follows commands. PSYCHIATRIC: Mood normal. SKIN: detail exam as documented in skin assessment - Constitutional Vitals: Temp Pulse Resp BP Pulse Ox 98.5 F 101 H 18 151/96 99 03/20/20 07:17 03/20/20 07:17 03/20/20 07:17 03/20/20 07:17 03/20/20 07:17 General appearance: Present: no acute distress, well-nourished, obese, other (Intubated) HEART Score - HEART Score Troponin: Troponin T 0.085 ng/mL (0.00-0.029) H 03/11/20 14:31 Results - Labs CBC & Chem 7: 03/19/20 05:55 03/20/20 04:31 Labs: Laboratory Last Values WBC 15.1 K/mm3 (4.5-11.0) H 03/19/20 05:55 RBC 3.75 M/mm3 (3.65-5.03) 03/19/20 05:55 Hgb 9.4 gm/dl (10.1-14.3) L 03/19/20 05:55 Hct 29.3 % (30.3-42.9) L 03/19/20 05:55 MCV 78 fl (79-97) L 03/19/20 05:55 MCH 25 pg (28-32) L 03/19/20 05:55 MCHC 32 % (30-34) 03/19/20 05:55 RDW 21.9 % (13.2-15.2) H 03/19/20 05:55 Plt Count 775 K/mm3 (140-440) H 03/19/20 05:55 Lymph % (Auto) 14.1 % (13.4-35.0) 03/19/20 05:55 Colbert % (Auto) 5.7 % (0.0-7.3) 03/19/20 05:55 Eos % (Auto) 5.4 % (0.0-4.3) H 03/19/20 05:55 Baso % (Auto) 1.1 % (0.0-1.8) 03/19/20 05:55 Lymph # (Auto) 2.1 K/mm3 (1.2-5.4) 03/19/20 05:55 Colbert # (Auto) 0.9 K/mm3 (0.0-0.8) H 03/19/20 05:55 Eos # (Auto) 0.8 K/mm3 (0.0-0.4) H 03/19/20 05:55 Baso # (Auto) 0.2 K/mm3 (0.0-0.1) H 03/19/20 05:55 Add Manual Diff Complete 03/11/20 04:32 Total Counted 100 03/11/20 04:32 Seg Neutrophils % 73.7 % (40.0-70.0) H 03/19/20 05:55 Seg Neuts % (Manual) 81.0 % (40.0-70.0) H 03/11/20 04:32 Band Neutrophils % 1.0 % 03/11/20 04:32 Lymphocytes % (Manual) 8.0 % (13.4-35.0) L 03/11/20 04:32 Reactive Lymphs % (Man) 0 % 03/11/20 04:32 Monocytes % (Manual) 8.0 % (0.0-7.3) H 03/11/20 04:32 Eosinophils % (Manual) 1.0 % (0.0-4.3) 03/11/20 04:32 Basophils % (Manual) 1.0 % (0.0-1.8) 03/11/20 04:32 Metamyelocytes % 0 % 03/11/20 04:32 Myelocytes % 0 % 03/11/20 04:32 Promyelocytes % 0 % 03/11/20 04:32 Blast Cells % 0 % 03/11/20 04:32 Nucleated RBC % Not Reportable 03/11/20 04:32 Seg Neutrophils # 11.1 K/mm3 (1.8-7.7) H 03/19/20 05:55 Seg Neutrophils # Man 18.1 K/mm3 (1.8-7.7) H 03/11/20 04:32 Band Neutrophils # 0.2 K/mm3 03/11/20 04:32 Lymphocytes # (Manual) 1.8 K/mm3 (1.2-5.4) 03/11/20 04:32 Abs React Lymphs (Man) 0.0 K/mm3 03/11/20 04:32 Monocytes # (Manual) 1.8 K/mm3 (0.0-0.8) H 03/11/20 04:32 Eosinophils # (Manual) 0.2 K/mm3 (0.0-0.4) 03/11/20 04:32 Basophils # (Manual) 0.2 K/mm3 (0.0-0.1) H 03/11/20 04:32 Metamyelocytes # 0.0 K/mm3 03/11/20 04:32 Myelocytes # 0.0 K/mm3 03/11/20 04:32 Promyelocytes # 0.0 K/mm3 03/11/20 04:32 Blast Cells # 0.0 K/mm3 03/11/20 04:32 WBC Morphology Not Reportable 03/11/20 04:32 Hypersegmented Neuts Not Reportable 03/11/20 04:32 Hyposegmented Neuts Not Reportable 03/11/20 04:32 Hypogranular Neuts Not Reportable 03/11/20 04:32 Smudge Cells Not Reportable 03/11/20 04:32 Toxic Granulation Not Reportable 03/11/20 04:32 Toxic Vacuolation Not Reportable 03/11/20 04:32 Dohle Bodies Not Reportable 03/11/20 04:32 Pelger-Huet Anomaly Not Reportable 03/11/20 04:32 Maia Rods Not Reportable 03/11/20 04:32 Platelet Estimate Consistent w auto 03/11/20 04:32 Clumped Platelets Not Reportable 03/11/20 04:32 Plt Clumps, EDTA Not Reportable 03/11/20 04:32 Large Platelets Not Reportable 03/11/20 04:32 Giant Platelets Not Reportable 03/11/20 04:32 Platelet Satelliting Not Reportable 03/11/20 04:32 Plt Morphology Comment Not Reportable 03/11/20 04:32 RBC Morphology Not Reportable 03/11/20 04:32 Dimorphic RBCs Not Reportable 03/11/20 04:32 Polychromasia Not Reportable 03/11/20 04:32 Hypochromasia 1+ 03/11/20 04:32 Poikilocytosis Not Reportable 03/11/20 04:32 Anisocytosis 1+ 03/11/20 04:32 Microcytosis Not Reportable 03/11/20 04:32 Macrocytosis Not Reportable 03/11/20 04:32 Spherocytes Not Reportable 03/11/20 04:32 Pappenheimer Bodies Not Reportable 03/11/20 04:32 Sickle Cells Not Reportable 03/11/20 04:32 Target Cells Not Reportable 03/11/20 04:32 Tear Drop Cells Rare 03/11/20 04:32 Ovalocytes Few 03/11/20 04:32 Helmet Cells Not Reportable 03/11/20 04:32 [place] Bodies Not Reportable 03/11/20 04:32 [place] Rings Not Reportable 03/11/20 04:32 Mirna Cells Not Reportable 03/11/20 04:32 Bite Cells Not Reportable 03/11/20 04:32 Crenated Cell Not Reportable 03/11/20 04:32 Elliptocytes Not Reportable 03/11/20 04:32 Acanthocytes (Spur) Not Reportable 03/11/20 04:32 Rouleaux Not Reportable 03/11/20 04:32 Hemoglobin C Crystals Not Reportable 03/11/20 04:32 Schistocytes Not Reportable 03/11/20 04:32 Malaria parasites Not Reportable 03/11/20 04:32 Edgardo Bodies Not Reportable 03/11/20 04:32 Hem Pathologist Commnt No 03/11/20 04:32 PT 14.1 Sec. (12.2-14.9) 03/11/20 07:31 INR 1.07 (0.87-1.13) 03/11/20 07:31 APTT 32.0 Sec. (24.2-36.6) 03/11/20 07:31 ABG pH 7.420 pH Units (7.350-7.450) 03/15/20 13:20 POC ABG pCO2 40.5 mmHg (32.0-48.0) 03/13/20 14:23 ABG pCO2 45.5 mm Hg 03/15/20 13:20 POC ABG pO2 75.1 mmHg (83-108) L 03/13/20 14:23 ABG pO2 85.8 mm Hg (80.0-90.0) 03/15/20 13:20 POC ABG HCO3 28.3 03/13/20 14:23 ABG HCO3 28.9 mmol/L (20.0-26.0) H 03/15/20 13:20 ABG O2 Saturation 97.1 % (95.0-99.0) 03/15/20 13:20 ABG O2 Content 11.6 (0.0-44) 03/15/20 13:20 POC ABG Base Excess 4.2 03/13/20 14:23 ABG Base Excess 3.9 mmol/L (-2.0-3.0) H 03/15/20 13:20 ABG Hemoglobin 8.6 gm/dl (12.0-16.0) L 03/15/20 13:20 ABG Oxyhemoglobin 90.5 (94-98) L 03/06/20 04:41 ABG Carboxyhemoglobin 1.7 % (0.0-5.0) 03/15/20 13:20 ABG Methemoglobin 0.5 % (0.0-1.5) 03/15/20 13:20 ABG Sodium 135.9 mmol/L (136.0-145.0) L 03/13/20 14:23 ABG Potassium 3.8 mmol/L (3.40-4.50) 03/13/20 14:23 ABG Chloride 98.0 mmol/L (98-107) 03/13/20 14:23 ABG Glucose 89 mg/dL (65-95) 03/13/20 14:23 Oxyhemoglobin 94.9 % (95.0-99.0) L 03/15/20 13:20 Carboxyhemoglobin 1 (0.5-1.5) 03/06/20 04:41 FiO2 30 % 03/15/20 13:20 Sodium 137 mmol/L (137-145) 03/20/20 04:31 Potassium 4.1 mmol/L (3.6-5.0) 03/20/20 04:31 Chloride 94.8 mmol/L (98-107) L 03/20/20 04:31 Carbon Dioxide 29 mmol/L (22-30) 03/20/20 04:31 Anion Gap 17 mmol/L 03/20/20 04:31 BUN 40 mg/dL (7-17) H 03/20/20 04:31 Creatinine 4.3 mg/dL (0.6-1.2) H 03/20/20 04:31 Estimated GFR 14 ml/min 03/20/20 04:31 BUN/Creatinine Ratio 9 % 03/20/20 04:31 Glucose 87 mg/dL (65-100) 03/20/20 04:31 POC Glucose 80 (70-105) 03/20/20 07:30 Lactic Acid 0.90 mmol/L (0.7-2.0) 02/27/20 19:33 Calcium 10.2 mg/dL (8.4-10.2) 03/20/20 04:31 Phosphorus 6.10 mg/dL (2.5-4.5) H 03/01/20 04:37 Magnesium 2.00 mg/dL (1.7-2.3) 03/07/20 05:03 Total Bilirubin 0.30 mg/dL (0.1-1.2) 03/16/20 04:52 Direct Bilirubin 0.6 mg/dL (0-0.2) H 03/05/20 06:00 Indirect Bilirubin 0.3 mg/dL 03/05/20 06:00 AST 30 units/L (5-40) 03/16/20 04:52 ALT 14 units/L (7-56) 03/16/20 04:52 Alkaline Phosphatase 75 units/L (35-129) 03/16/20 04:52 Troponin T 0.085 ng/mL (0.00-0.029) H 03/11/20 14:31 C-Reactive Protein 36.50 mg/dL (0.00-1.30) H 03/01/20 11:06 Serum Total Protein 6.3 g/dL (6.1-8.1) 02/26/20 04:39 Total Protein 7.6 g/dL (6.3-8.2) 03/16/20 04:52 Albumin 2.7 g/dL (3.9-5) L 03/16/20 04:52 Albumin/Globulin Ratio 0.6 % 03/16/20 04:52 Dycdo-7-Fhdisxyxk 0.7 g/dL (0.2-0.3) H 02/26/20 04:39 Kspuk-1-Dkpxigbhe 0.8 g/dL (0.5-0.9) 02/26/20 04:39 Beta Globulins 0.4 g/dL (0.2-0.5) 02/26/20 04:39 Gamma Globulins 1.2 g/dL (0.8-1.7) 02/26/20 04:39 Abnorm Protein Band 1 see below 02/26/20 04:39 PEP Interpretation see below H 02/26/20 04:39 Triglycerides 247 mg/dL (2-149) H 03/11/20 14:31 Cholesterol 158 mg/dL (50-199) 03/11/20 14:31 LDL Cholesterol Direct 80 mg/dL (50-130) 03/11/20 14:31 HDL Cholesterol 28 mg/dL (40-59) L 03/11/20 14:31 Cholesterol/HDL Ratio 5.64 % 03/11/20 14:31 Lipase 72 units/L (13-60) H 03/04/20 19:00 HCG, Qual Negative (Negative) 02/24/20 02:53 PTH Intact 911.3 pg/mL (15-65) H 02/26/20 08:15 Arterial Blood Glucose 89 mg/dL (65-95) 03/13/20 14:23 Arterial Blood Ionized Calcium 4.5 mg/dL (4.6-5.3) L 03/13/20 14:23 Urine Color Yellow (Yellow) 02/24/20 Unknown Urine Turbidity Clear (Clear) 02/24/20 Unknown Urine pH 6.0 (5.0-7.0) 02/24/20 Unknown Ur Specific [place] 1.020 (1.003-1.030) 02/24/20 Unknown Urine Protein >500 mg/dL (Negative) 02/24/20 Unknown Urine Glucose (UA) 50 mg/dL (Negative) 02/24/20 Unknown Urine Ketones Neg mg/dL (Negative) 02/24/20 Unknown Urine Blood Lg (Negative) 02/24/20 Unknown Urine Nitrite Neg (Negative) 02/24/20 Unknown Urine Bilirubin Neg (Negative) 02/24/20 Unknown Urine Urobilinogen < 2.0 mg/dL (<2.0) 02/24/20 Unknown Ur Leukocyte Esterase Neg (Negative) 02/24/20 Unknown Urine WBC (Auto) 11.0 /HPF (0.0-6.0) H 02/24/20 Unknown Urine RBC (Auto) 149.0 /HPF (0.0-6.0) 02/24/20 Unknown U Epithel Cells (Auto) 5.0 /HPF (0-13.0) 02/24/20 Unknown Urine Bacteria (Auto) 1+ /HPF (Negative) 02/24/20 Unknown Urine Mucus Few /HPF 02/24/20 Unknown Urine Total Volume 115 ml 03/18/20 14:00 Urine Creatinine 278.4 mg/dL (0.1-20.0) H 03/18/20 14:00 Ur Creatinine 24 Hour 0.3 (0.8-2.8) L 03/18/20 14:00 Protein/Creatinin Ratio 0.93 02/25/20 22:55 Urine Total Protein 150 mg/dL (5-11.8) H 02/25/20 22:55 ZINA Screen Positive (Negative) H 02/26/20 04:39 Proteinase 3 (PR3) Ab <1.0 AI (<1.0) 02/26/20 04:39 Myeloperoxidase Ab <1.0 AI (<1.0) 02/26/20 04:39 Double Strand DNA Ab See scanned result 03/06/20 14:46 Complement C3 153 mg/dL (83-193) 02/26/20 04:39 Complement C4 35 mg/dL (15-57) 02/26/20 04:39 Coronavirus (PCR) Negative (Negative) 03/09/20 09:12 Hepatitis A IgM Ab Non-reactive (NonReactive) 03/03/20 12:34 Hep Bs Antigen Non-reactive (Negative) 03/03/20 12:34 Hep B Core IgM Ab Non-reactive (NonReactive) 03/03/20 12:34 Hepatitis C Antibody Non-reactive (NonReactive) 03/03/20 12:34 Blood Type AB POSITIVE 03/13/20 08:45 Antibody Screen Negative 03/13/20 08:45 Crossmatch See Detail 03/13/20 08:45 - Diagnostic Impressions Diagnostic Impressions: Echocardiogram 02/26/20 09:11 Transthoracic Echocardiogram Indication: Cardiomegaly BP: 149/92 HR: 122 Conclusions *Global left ventricular systolic function is normal. *The estimated ejection fraction is 60-65%. *Moderate to severe concentric left ventricular hypertrophy is observed. *The left atrium is mild to moderately dilated. *The aortic valve leaflets are moderately thickened. *A mean gradient of 22.39 mmHg across the outflow tract is likely not due to but hyperdynamic flow and LVH. *There is trace tricuspid regurgitation. Findings Left Ventricle: The left ventricular chamber size is normal. Moderate to severe concentric left ventricular hypertrophy is observed. Global left ventricular systolic function is normal. The estimated ejection fraction is 60-65%. Left Atrium: The left atrium is mild to moderately dilated. Right Ventricle: The right ventricular cavity size is normal. The right ventricular global systolic function is normal. Right Atrium: The right atrial cavity size is normal. Aortic Valve: The aortic valve leaflets are moderately thickened. There is no evidence of aortic regurgitation. The mean gradient of the aortic valve is 22.39 mmHg. Mitral Valve: The mitral valve leaflets are mildly thickened. There is trace of mitral regurgitation. There is no evidence of mitral stenosis. Tricuspid Valve: There is trace tricuspid regurgitation. No pulmonary hypertension is noted. Pulmonic Valve: There is trace pulmonic regurgitation. Pericardium: There is no pericardial effusion. Aorta: There is no dilatation of the ascending aorta. There is no dilatation of the aortic root. Venous: The inferior vena cava appears normal in size. Measurements Chambers 2D Name Value Normal Range IVSd (2D) 1.8 cm (0.6 - 1.1) LVPWd (2D) 1.74 cm (0.6 - 1.1) LVIDd (2D) 4.57 cm (3.7 - 5.6) LVIDs (2D) 2.73 cm (2 - 3.8) LV FS (2D) 40.27 % - EF Teichholz (2D) 71.04 % - Ao root diameter (2D) 2.79 cm (2 - 3.7) Volumes/Mass Name Value Normal Range LA ESV SP 4CH (A/L) 54.18 ml - LA ESV SP 2CH (A/L) 61.84 ml - LA ESV BP (A/L) 58.1 ml - LA ESV BP (A/L) index 30.74 ml/m2 - LA ESV SP 4CH (MOD) 52.89 ml - LA ESV SP 2CH (MOD) 60.65 ml - LA ESV BP (MOD) 56.77 ml - LA ESV BP (MOD) index 30.04 ml/m2 - LV EDV SP 4CH (MOD) 164.2 ml - LV ESV SP 4CH (MOD) 58.04 ml - EF SP 4CH (MOD) 64.65 % - Diastolic/Systolic Function Name Value Normal Range MV E-wave Vmax 1.38 m/sec - MV deceleration time 92.78 msec - MV A-wave Vmax 1.44 m/sec - MV E:A ratio 0.95 ratio - Aortic Valve Name Value Normal Range AV Vmax 3.08 m/sec - AV VTI 36.74 cm - AV peak gradient 37.98 mmHg - AV mean gradient 22.39 mmHg - LVOT diameter 2.01 cm - LVOT Vmax 2.45 m/sec - LVOT VTI 29.85 cm - LVOT peak gradient 24.04 mmHg - LVOT mean gradient 11.11 mmHg - SV LVOT 94.73 ml - JADA (continuity Vmax) 2.52 cm2 - JADA (continuity VTI) 2.58 cm2 - Ascending Ao 2.64 cm - Mitral Valve Name Value Normal Range MV PHT 37.88 msec - MVA (PHT) 5.81 cm2 - Tricuspid Valve Name Value Normal Range IVC diameter 1.93 cm (1.2 - 2.3) Pulmonic Valve/Qp:Qs Name Value Normal Range PV Vmax 2.83 m/sec - PV VTI 45.88 cm - PV peak gradient 32.06 mmHg - PV mean gradient 16.11 mmHg - [place] end-diastolic Vmax 0.81 m/sec - RVOT Vmax 1.82 m/sec - RVOT VTI 25.12 cm - RVOT peak gradient 13.3 mmHg - Franks/IV: Voiding Method Toilet IV Catheter Type [Right VAS Cath Internal Jugular] IV Catheter Type [Left Upper INT / Saline Lock arm] IV Catheter Type [Right Upper INT / Saline Lock arm] IV Catheter Type [Right INT / Saline Lock Forearm] IV Catheter Type [Right Wrist] Peripheral IV IV Catheter Type [Right Peripheral IV Antecubital] Active Medications - Current Medications Current Medications: Generic Name Dose Route Start Last Admin Trade Name Freq PRN Reason Stop Dose Admin Acetaminophen 650 mg 02/26/20 16:23 03/14/20 22:03 Tylenol PO 650 mg Q4H PRN Administration Pain, Mild (1-3)/ Temp >100. Albuterol 2.5 mg 02/27/20 17:55 Proventil IH Q4HRT PRN Shortness Of Breath Amlodipine Besylate 10 mg 02/28/20 10:00 03/20/20 09:15 Amlodipine PO 10 mg QDAY INDU Administration Aspirin 325 mg 03/15/20 11:00 03/20/20 09:15 Aspirin PO 325 mg QDAY INDU Administration Dextrose 50 ml 02/29/20 08:00 03/01/20 00:20 D50w (25gm) Syringe IV 10 ml Q30MIN PRN Administration HYPOGLYCEMIA Protocol Epoetin Prosper 10,000 unit 03/12/20 10:00 03/16/20 11:58 Procrit IV 10,000 unit NIKOLAY PRN Administration hemodialysis Heparin Sodium (Porcine) 5,000 unit 03/11/20 14:00 03/20/20 05:30 Heparin SUB-Q 5,000 unit Q8HR INDU Administration Hydralazine HCl 25 mg 03/04/20 14:00 03/20/20 05:29 Apresoline PO 25 mg Q8HR INDU Administration Hydrophilic Ointment 1 applic 03/11/20 06:01 Vaseline Lip Therapy TP Q2HR PRN Dry Lips Sodium Chloride 100 mls @ 999 mls/hr 03/08/20 17:05 Nacl 0.9% IV NIKOLAY PRN Hypotension Labetalol HCl 10 mg 02/28/20 09:00 03/11/20 03:04 Labetalol IV 10 mg Q4H PRN Administration Hypertension Metoprolol Tartrate 25 mg 02/28/20 10:00 03/20/20 09:15 Metoprolol PO 25 mg BID INDU Administration Morphine Sulfate 2 mg 03/11/20 05:13 03/16/20 01:46 Morphine IV 2 mg Q4H PRN Administration Pain, Moderate (4-6) Multi-Ingred Cream/Lotion/Oil/Oint 1 applic 03/11/20 06:01 Artificial Tears Ophth Oint OU Q4HR PRN Dry Eye(s) Nitroglycerin 0.4 mg 03/11/20 05:14 Nitrostat SL .Q5MIN PRN Chest Pain Ondansetron HCl 4 mg 02/24/20 06:45 02/25/20 23:33 Zofran IV 4 mg Q8H PRN Administration Nausea And Vomiting Pantoprazole Sodium 40 mg 03/16/20 11:00 03/20/20 09:16 Protonix PO 40 mg QDAC INDU Administration Quetiapine Fumarate 100 mg 03/16/20 22:00 03/19/20 21:09 Seroquel PO 100 mg QHS INDU Administration Sodium Chloride 10 ml 02/24/20 10:00 03/20/20 09:16 Sodium Chloride Flush Syringe 10 Ml IV 10 ml BID INUD Administration Sodium Chloride 10 ml 02/24/20 06:45 03/10/20 09:06 Sodium Chloride Flush Syringe 10 Ml IV 10 ml PRN PRN Administration LINE FLUSH Nutrition/Malnutrition Assess - Dietary Evaluation Nutrition/Malnutrition Findings: Nutrition Notes Start: 02/24/20 13:42 Freq: Status: Active Protocol: Document 03/19/20 11:48 BRANDI (Rec: 03/19/20 12:04 BRANDI [id number]) Co-Sign 03/19/20 11:48 MK Nutrition Notes Need for Assessment generated from: Education Initial or Follow up Reassessment Current Diagnosis Acute Kidney Injury,CKD (stage V CKD),Sepsis,Hypertension, Respiratory Failure, Hyperlipidemia Other Pertinent Diagnosis HD, acute pancreatitis Current Diet Renal Labs/Tests BUN 28 Cr 3.5 BG 80 Pertinent Medications Reviewed Height 5 ft 1 in Weight 91 kg [place] Body Weight (kg) 47.72 BMI 37.9 Weight Status Obese Subjective/Other Information F/u intakes. Pt reported eating mostly fruit from tray and drinking juices. Wants sandwiches. Not receiving ONS. Discussed the importance of protein with HD, a healthy renal diet, and encouraged her to f/u with out-patient HD RD . Noted MD signed off on pancreatitis. Percent of energy/protein needs met: 25%/0% Burn Absent Trauma Absent GI Symptoms None Current % PO Negligible Minimum of two criteria No Fluid Accumulation Moderate to Severe (severe) #2 Nutrition Diagnosis Inadequate oral intake As Evidenced by Signs and Symptoms pt mostly drinking fluids and eating fruit. Diagnosis Progress(for reassessment Continues documentation) #1 Nutrition Diagnosis Food and nutrition-related knowledge deficit As Evidenced by Signs and Symptoms Pt had questions about the HD diet. Diagnosis Progress(for reassessment Resolved documentation) Is patient on ventilator? Yes Is Patient Ambulatory and/or Out of Bed No REE-([facility] Jeor-confined to bed) [phone] Calculation [facility] Additional Notes Pro: 83-104g (1.2-1.5g/kg AdBW 69kg) Fluid: 1ml/kcal Nutrition Intervention Change Diet Order: Continue renal diet d/c mechanical soft Add Supplement/Snack (indicate name/kcal Nepro daily /protein ) Provides kCal: 425 Provides Protein (gm) 19 Teaching Recipient Patient Learning Readiness Good Teaching Methods Discussion,Handout Response to Teaching Verbalize understanding Education Handouts Provided Renal MyPlate Barriers to Learning No Barriers RD phone number provided Yes Patient aware of follow up options Yes Goal #1 Meet at least 75% of energy and protein needs. Anticipated Discharge Needs: Renal diet Follow-Up By: 03/24/20 Additional Comments F/u intakes, ONS acceptance, and dry wt
[2020-03-20] MEDS: MORPHINE 2 MG/1 ML INJ IV PRN ×2 (11:49→21:22)
--- NOTE | 2020-03-20 14:07 | Progress Note ---
Assessment and Plan Patient awake. Patient receiving hemo dialysis.on room air. O2 saturation 97%. No complaint of chest pain, shortness of breath or cough. Patient admitted for pancreatitis. Patient initially complained dyspnea. No dyspnea now. Patient afebrile. Has leukocytosis. - Patient Problems (1) Dyspnea Current Visit: Yes Status: Acute Plan to address problem: Improved. No complaint of dyspnea to day. O2 saturation 97% on room air. (2) Acute pancreatitis Current Visit: Yes Status: Acute Plan to address problem: Management as per primary care. (3) Hypertensive urgency Current Visit: Yes Status: Acute Plan to address problem: Management as per primary care. Subjective Date of service: 03/20/20 Principal diagnosis: HTNsive urgency; Morbid obesity; Ac. pancreatitis; Abdominal pain Interval history: Patient awake. Patient receiving hemo dialysis.on room air. O2 saturation 97%. No complaint of chest pain, shortness of breath or cough. Patient admitted for pancreatitis. Patient initially complained dyspnea. No dyspnea now. Patient afebrile. Has leukocytosis. Objective Vital Signs - 12hr 03/20/20 03/20/20 03/20/20 05:13 05:29 07:11 Temperature 99.3 F Pulse Rate 96 H 96 H Pulse Rate [ 98 H Left Dorsalis Pedis] Pulse Rate [ 98 H Right Dorsalis Pedis] Pulse Rate [ 98 H Right Radial] Respiratory 18 19 Rate Blood Pressure 173/104 173/103 O2 Sat by Pulse 98 97 Oximetry 03/20/20 03/20/20 07:17 11:44 Temperature 98.5 F 99.4 F Pulse Rate 101 H 88 Pulse Rate [ Left Dorsalis Pedis] Pulse Rate [ Right Dorsalis Pedis] Pulse Rate [ Right Radial] Respiratory 18 18 Rate Blood Pressure 151/96 153/100 O2 Sat by Pulse 99 97 Oximetry Constitutional: no acute distress, alert Eyes: non-icteric ENT: oropharynx moist, other (Right IJ trialysis catheter) Neck: supple, no lymphadenopathy, no JVD, other (RIJ HD catheter) Effort: normal Ascultation: Bilateral: diminished breath sounds (at the bases), wheezes (expiratory), rales, rhonchi Percussion: Bilateral: not dull Cardiovascular: regular rate and rhythm, other (S1,S2) Gastrointestinal: normoactive bowel sounds, hypoactive bowel sounds, soft, non- tender, non-distended Integumentary: normal Extremities: no cyanosis, no edema, pink and warm, pulses normal Neurologic: normal mental status, non-focal exam, pupils equal and round, CN II- XII normal, motor strength normal and Psychiatric: tearful CBC and BMP: 03/19/20 05:55 03/20/20 04:31 ABG, PT/INR, D-dimer: ABG ABG pH 7.420 pH Units (7.350-7.450) 03/15/20 13:20 POC ABG pCO2 40.5 mmHg (32.0-48.0) 03/13/20 14:23 ABG pCO2 45.5 mm Hg 03/15/20 13:20 POC ABG pO2 75.1 mmHg (83-108) L 03/13/20 14:23 ABG pO2 85.8 mm Hg (80.0-90.0) 03/15/20 13:20 POC ABG HCO3 28.3 03/13/20 14:23 ABG O2 Saturation 97.1 % (95.0-99.0) 03/15/20 13:20 PT/INR, D-dimer PT 14.1 Sec. (12.2-14.9) 03/11/20 07:31 INR 1.07 (0.87-1.13) 03/11/20 07:31 Abnormal lab findings: Abnormal Labs 02/24/20 02/24/20 02/24/20 02:53 02:53 Unknown WBC 12.7 H Hgb 10.0 L RBC Hct MCV 70 L MCH 22 L RDW 17.9 H Plt Count 458 H Lymph % (Auto) 8.9 L Lymph # 1.1 L [place] % (Auto) [place] # Eos % (Auto) Lymph # (Auto) [place] # (Auto) Eos # (Auto) Seg Neutrophils % 84.2 H Baso # (Auto) Seg Neutrophils # 10.7 H Seg Neuts % (Manual) Lymphocytes % (Manual) Monocytes % (Manual) Nucleated RBC % Seg Neutrophils # Man Lymphocytes # (Manual) Monocytes # (Manual) Eosinophils # (Manual) Basophils # (Manual) ABG pH POC ABG pCO2 POC ABG pO2 ABG pO2 ABG HCO3 ABG O2 Saturation ABG Base Excess ABG Hemoglobin ABG Oxyhemoglobin ABG Sodium ABG Glucose Oxyhemoglobin Sodium Potassium Chloride Carbon Dioxide BUN 27 H Creatinine 1.7 H Glucose 118 H POC Glucose Calcium Phosphorus Magnesium Direct Bilirubin AST Alkaline Phosphatase Albumin Troponin T C-Reactive Protein Wxtgt-0-Wjrvcmhpz PEP Interpretation Triglycerides Lipase 232 H HDL Cholesterol PTH Intact Arterial Blood Glucose Arterial Blood Ionized Calcium Urine WBC (Auto) 11.0 H Urine Creatinine Ur Creatinine 24 Hour Urine Total Protein ZINA Screen Crossmatch 02/25/20 02/25/20 02/25/20 00:03 03:49 03:49 WBC 29.1 H Hgb 9.4 L RBC Hct 30.2 L MCV 71 L MCH 22 L RDW 18.3 H Plt Count 525 H Lymph % (Auto) 3.4 L Lymph # 1.0 L [place] % (Auto) [place] # 1.0 H Eos % (Auto) Lymph # (Auto) [place] # (Auto) Eos # (Auto) Seg Neutrophils % Baso # (Auto) Seg Neutrophils # 26.4 H Seg Neuts % (Manual) Lymphocytes % (Manual) Monocytes % (Manual) Nucleated RBC % Seg Neutrophils # Man Lymphocytes # (Manual) Monocytes # (Manual) Eosinophils # (Manual) Basophils # (Manual) ABG pH POC ABG pCO2 POC ABG pO2 ABG pO2 ABG HCO3 ABG O2 Saturation ABG Base Excess ABG Hemoglobin ABG Oxyhemoglobin ABG Sodium ABG Glucose Oxyhemoglobin Sodium Potassium Chloride Carbon Dioxide BUN Creatinine Glucose POC Glucose 126 H Calcium Phosphorus Magnesium Direct Bilirubin AST Alkaline Phosphatase Albumin Troponin T C-Reactive Protein Isqtc-4-Klwelzohp PEP Interpretation Triglycerides Lipase 1486 H HDL Cholesterol PTH Intact Arterial Blood Glucose Arterial Blood Ionized Calcium Urine WBC (Auto) Urine Creatinine Ur Creatinine 24 Hour Urine Total Protein ZINA Screen Crossmatch 02/25/20 02/25/20 02/25/20 03:49 05:55 22:55 WBC Hgb RBC Hct MCV MCH RDW Plt Count Lymph % (Auto) Lymph # [place] % (Auto) [place] # Eos % (Auto) Lymph # (Auto) [place] # (Auto) Eos # (Auto) Seg Neutrophils % Baso # (Auto) Seg Neutrophils # Seg Neuts % (Manual) Lymphocytes % (Manual) Monocytes % (Manual) Nucleated RBC % Seg Neutrophils # Man Lymphocytes # (Manual) Monocytes # (Manual) Eosinophils # (Manual) Basophils # (Manual) ABG pH POC ABG pCO2 POC ABG pO2 ABG pO2 ABG HCO3 ABG O2 Saturation ABG Base Excess ABG Hemoglobin ABG Oxyhemoglobin ABG Sodium ABG Glucose Oxyhemoglobin Sodium 136 L Potassium Chloride 97.9 L Carbon Dioxide 21 L BUN 39 H Creatinine 3.0 H D Glucose 118 H POC Glucose 124 H Calcium Phosphorus Magnesium Direct Bilirubin AST Alkaline Phosphatase Albumin 3.6 L Troponin T C-Reactive Protein Hapqr-2-Horosbqhb PEP Interpretation Triglycerides Lipase HDL Cholesterol PTH Intact Arterial Blood Glucose Arterial Blood Ionized Calcium Urine WBC (Auto) Urine Creatinine 161.0 H Ur Creatinine 24 Hour Urine Total Protein 150 H ZINA Screen Crossmatch 02/26/20 02/26/20 02/26/20 04:39 04:39 04:39 WBC 30.3 H Hgb 9.1 L RBC Hct 29.8 L MCV 71 L MCH 22 L RDW 18.2 H Plt Count 530 H Lymph % (Auto) Lymph # [place] % (Auto) [place] # Eos % (Auto) Lymph # (Auto) [place] # (Auto) Eos # (Auto) Seg Neutrophils % Baso # (Auto) Seg Neutrophils # Seg Neuts % (Manual) Lymphocytes % (Manual) Monocytes % (Manual) Nucleated RBC % Seg Neutrophils # Man Lymphocytes # (Manual) Monocytes # (Manual) Eosinophils # (Manual) Basophils # (Manual) ABG pH POC ABG pCO2 POC ABG pO2 ABG pO2 ABG HCO3 ABG O2 Saturation ABG Base Excess ABG Hemoglobin ABG Oxyhemoglobin ABG Sodium ABG Glucose Oxyhemoglobin Sodium Potassium Chloride Carbon Dioxide 19 L BUN 44 H Creatinine 3.1 H Glucose 106 H POC Glucose Calcium 8.1 L Phosphorus Magnesium Direct Bilirubin AST Alkaline Phosphatase Albumin Troponin T C-Reactive Protein Alukw-8-Uqbnkodms PEP Interpretation Triglycerides Lipase 540 H HDL Cholesterol PTH Intact Arterial Blood Glucose Arterial Blood Ionized Calcium Urine WBC (Auto) Urine Creatinine Ur Creatinine 24 Hour Urine Total Protein ZINA Screen Positive H Crossmatch 02/26/20 02/26/20 02/26/20 04:39 08:15 12:14 WBC Hgb RBC Hct MCV MCH RDW Plt Count Lymph % (Auto) Lymph # [place] % (Auto) [place] # Eos % (Auto) Lymph # (Auto) [place] # (Auto) Eos # (Auto) Seg Neutrophils % Baso # (Auto) Seg Neutrophils # Seg Neuts % (Manual) Lymphocytes % (Manual) Monocytes % (Manual) Nucleated RBC % Seg Neutrophils # Man Lymphocytes # (Manual) Monocytes # (Manual) Eosinophils # (Manual) Basophils # (Manual) ABG pH POC ABG pCO2 POC ABG pO2 ABG pO2 ABG HCO3 ABG O2 Saturation ABG Base Excess ABG Hemoglobin ABG Oxyhemoglobin ABG Sodium ABG Glucose Oxyhemoglobin Sodium Potassium Chloride Carbon Dioxide BUN Creatinine Glucose POC Glucose 112 H Calcium Phosphorus Magnesium Direct Bilirubin AST Alkaline Phosphatase Albumin 2.8 L Troponin T C-Reactive Protein Ysqbc-6-Lwzbnfsem 0.7 H PEP Interpretation see below H Triglycerides Lipase HDL Cholesterol PTH Intact 911.3 H Arterial Blood Glucose Arterial Blood Ionized Calcium Urine WBC (Auto) Urine Creatinine Ur Creatinine 24 Hour Urine Total Protein ZINA Screen Crossmatch 02/27/20 02/27/20 02/27/20 04:18 04:18 04:18 WBC 26.8 H Hgb 7.9 L RBC Hct 26.3 L MCV 70 L MCH 21 L RDW 18.0 H Plt Count 513 H Lymph % (Auto) Lymph # [place] % (Auto) [place] # Eos % (Auto) Lymph # (Auto) [place] # (Auto) Eos # (Auto) Seg Neutrophils % Baso # (Auto) Seg Neutrophils # Seg Neuts % (Manual) Lymphocytes % (Manual) Monocytes % (Manual) Nucleated RBC % Seg Neutrophils # Man Lymphocytes # (Manual) Monocytes # (Manual) Eosinophils # (Manual) Basophils # (Manual) ABG pH POC ABG pCO2 POC ABG pO2 ABG pO2 ABG HCO3 ABG O2 Saturation ABG Base Excess ABG Hemoglobin ABG Oxyhemoglobin ABG Sodium ABG Glucose Oxyhemoglobin Sodium 135 L 135 L Potassium Chloride Carbon Dioxide 15 L 16 L BUN 50 H 51 H Creatinine 3.4 H 3.4 H Glucose POC Glucose Calcium 7.4 L 7.5 L Phosphorus Magnesium Direct Bilirubin AST Alkaline Phosphatase Albumin 3.0 L Troponin T C-Reactive Protein 37.30 H Elman-0-Wdtljmmyi PEP Interpretation Triglycerides Lipase 177 H HDL Cholesterol PTH Intact Arterial Blood Glucose Arterial Blood Ionized Calcium Urine WBC (Auto) Urine Creatinine Ur Creatinine 24 Hour Urine Total Protein ZINA Screen Crossmatch 02/27/20 02/28/20 02/28/20 16:57 05:07 05:07 WBC Hgb RBC Hct MCV MCH RDW Plt Count Lymph % (Auto) Lymph # [place] % (Auto) [place] # Eos % (Auto) Lymph # (Auto) [place] # (Auto) Eos # (Auto) Seg Neutrophils % Baso # (Auto) Seg Neutrophils # Seg Neuts % (Manual) Lymphocytes % (Manual) Monocytes % (Manual) Nucleated RBC % Seg Neutrophils # Man Lymphocytes # (Manual) Monocytes # (Manual) Eosinophils # (Manual) Basophils # (Manual) ABG pH 7.336 L POC ABG pCO2 POC ABG pO2 ABG pO2 57.0 L ABG HCO3 16.4 L ABG O2 Saturation 88.2 L ABG Base Excess -8.4 L ABG Hemoglobin 10.4 L ABG Oxyhemoglobin ABG Sodium ABG Glucose Oxyhemoglobin 85.7 L Sodium Potassium Chloride Carbon Dioxide 14 L BUN 60 H Creatinine 4.2 H Glucose POC Glucose Calcium 8.2 L Phosphorus Magnesium Direct Bilirubin AST Alkaline Phosphatase Albumin Troponin T C-Reactive Protein Zhzxb-7-Bsysiusia PEP Interpretation Triglycerides Lipase 155 H HDL Cholesterol PTH Intact Arterial Blood Glucose Arterial Blood Ionized Calcium Urine WBC (Auto) Urine Creatinine Ur Creatinine 24 Hour Urine Total Protein ZINA Screen Crossmatch 02/28/20 02/28/20 02/28/20 05:56 11:05 11:05 WBC Hgb RBC Hct MCV MCH RDW Plt Count Lymph % (Auto) Lymph # [place] % (Auto) [place] # Eos % (Auto) Lymph # (Auto) [place] # (Auto) Eos # (Auto) Seg Neutrophils % Baso # (Auto) Seg Neutrophils # Seg Neuts % (Manual) Lymphocytes % (Manual) Monocytes % (Manual) Nucleated RBC % Seg Neutrophils # Man Lymphocytes # (Manual) Monocytes # (Manual) Eosinophils # (Manual) Basophils # (Manual) ABG pH 7.317 L POC ABG pCO2 POC ABG pO2 76.2 L ABG pO2 ABG HCO3 16.4 L ABG O2 Saturation ABG Base Excess -8.9 L ABG Hemoglobin 6.6 L 7.6 L ABG Oxyhemoglobin ABG Sodium ABG Glucose Oxyhemoglobin 94.6 L Sodium Potassium Chloride Carbon Dioxide BUN Creatinine Glucose POC Glucose 115 H Calcium Phosphorus Magnesium Direct Bilirubin AST Alkaline Phosphatase Albumin Troponin T C-Reactive Protein Efjnt-5-Auvppecux PEP Interpretation Triglycerides Lipase HDL Cholesterol PTH Intact Arterial Blood Glucose Arterial Blood Ionized Calcium Urine WBC (Auto) Urine Creatinine Ur Creatinine 24 Hour Urine Total Protein ZINA Screen Crossmatch 02/28/20 02/28/20 02/29/20 17:39 19:39 05:43 WBC Hgb RBC Hct MCV MCH RDW Plt Count Lymph % (Auto) Lymph # [place] % (Auto) [place] # Eos % (Auto) Lymph # (Auto) [place] # (Auto) Eos # (Auto) Seg Neutrophils % Baso # (Auto) Seg Neutrophils # Seg Neuts % (Manual) Lymphocytes % (Manual) Monocytes % (Manual) Nucleated RBC % Seg Neutrophils # Man Lymphocytes # (Manual) Monocytes # (Manual) Eosinophils # (Manual) Basophils # (Manual) ABG pH 7.300 L POC ABG pCO2 POC ABG pO2 ABG pO2 117.5 H ABG HCO3 15.0 L ABG O2 Saturation ABG Base Excess -10.5 L ABG Hemoglobin 6.4 L ABG Oxyhemoglobin ABG Sodium ABG Glucose Oxyhemoglobin Sodium Potassium Chloride Carbon Dioxide BUN Creatinine Glucose POC Glucose 120 H 66 L Calcium Phosphorus Magnesium Direct Bilirubin AST Alkaline Phosphatase Albumin Troponin T C-Reactive Protein Fstsy-2-Rlcaynzly PEP Interpretation Triglycerides Lipase HDL Cholesterol PTH Intact Arterial Blood Glucose Arterial Blood Ionized Calcium Urine WBC (Auto) Urine Creatinine Ur Creatinine 24 Hour Urine Total Protein ZINA Screen Crossmatch 02/29/20 02/29/20 02/29/20 05:45 12:04 12:31 WBC Hgb RBC Hct MCV MCH RDW Plt Count Lymph % (Auto) Lymph # [place] % (Auto) [place] # Eos % (Auto) Lymph # (Auto) [place] # (Auto) Eos # (Auto) Seg Neutrophils % Baso # (Auto) Seg Neutrophils # Seg Neuts % (Manual) Lymphocytes % (Manual) Monocytes % (Manual) Nucleated RBC % Seg Neutrophils # Man Lymphocytes # (Manual) Monocytes # (Manual) Eosinophils # (Manual) Basophils # (Manual) ABG pH 7.212 L POC ABG pCO2 POC ABG pO2 ABG pO2 ABG HCO3 ABG O2 Saturation ABG Base Excess ABG Hemoglobin 7.4 L ABG Oxyhemoglobin ABG Sodium ABG Glucose Oxyhemoglobin Sodium Potassium Chloride Carbon Dioxide BUN Creatinine Glucose POC Glucose 65 L 64 L Calcium Phosphorus Magnesium Direct Bilirubin AST Alkaline Phosphatase Albumin Troponin T C-Reactive Protein Extny-6-Jdxrqxnbs PEP Interpretation Triglycerides Lipase HDL Cholesterol PTH Intact Arterial Blood Glucose Arterial Blood Ionized Calcium Urine WBC (Auto) Urine Creatinine Ur Creatinine 24 Hour Urine Total Protein ZINA Screen Crossmatch 02/29/20 02/29/20 02/29/20 14:22 14:22 18:20 WBC Hgb RBC Hct MCV MCH RDW Plt Count Lymph % (Auto) Lymph # [place] % (Auto) [place] # Eos % (Auto) Lymph # (Auto) [place] # (Auto) Eos # (Auto) Seg Neutrophils % Baso # (Auto) Seg Neutrophils # Seg Neuts % (Manual) Lymphocytes % (Manual) Monocytes % (Manual) Nucleated RBC % Seg Neutrophils # Man Lymphocytes # (Manual) Monocytes # (Manual) Eosinophils # (Manual) Basophils # (Manual) ABG pH POC ABG pCO2 POC ABG pO2 ABG pO2 ABG HCO3 ABG O2 Saturation ABG Base Excess ABG Hemoglobin ABG Oxyhemoglobin ABG Sodium ABG Glucose Oxyhemoglobin Sodium Potassium Chloride Carbon Dioxide 16 L BUN 77 H Creatinine 4.7 H Glucose POC Glucose 66 L Calcium Phosphorus 7.50 H Magnesium 2.60 H Direct Bilirubin AST Alkaline Phosphatase Albumin 2.3 L Troponin T C-Reactive Protein Zfnvg-5-Mrdkugrst PEP Interpretation Triglycerides Lipase HDL Cholesterol PTH Intact Arterial Blood Glucose Arterial Blood Ionized Calcium Urine WBC (Auto) Urine Creatinine Ur Creatinine 24 Hour Urine Total Protein ZINA Screen Crossmatch 02/29/20 03/01/20 03/01/20 18:24 04:05 04:37 WBC Hgb RBC Hct MCV MCH RDW Plt Count Lymph % (Auto) Lymph # [place] % (Auto) [place] # Eos % (Auto) Lymph # (Auto) [place] # (Auto) Eos # (Auto) Seg Neutrophils % Baso # (Auto) Seg Neutrophils # Seg Neuts % (Manual) Lymphocytes % (Manual) Monocytes % (Manual) Nucleated RBC % Seg Neutrophils # Man Lymphocytes # (Manual) Monocytes # (Manual) Eosinophils # (Manual) Basophils # (Manual) ABG pH 7.271 L 7.347 L POC ABG pCO2 POC ABG pO2 ABG pO2 133.5 H ABG HCO3 15.8 L ABG O2 Saturation ABG Base Excess -8.9 L ABG Hemoglobin 7.2 L 7.6 L ABG Oxyhemoglobin 93.4 L ABG Sodium ABG Glucose Oxyhemoglobin Sodium Potassium Chloride 107.6 H Carbon Dioxide 14 L BUN 83 H Creatinine 5.6 H Glucose POC Glucose Calcium Phosphorus 6.10 H Magnesium 2.40 H Direct Bilirubin AST Alkaline Phosphatase Albumin Troponin T C-Reactive Protein Elbst-4-Acsxmvhgi PEP Interpretation Triglycerides Lipase HDL Cholesterol PTH Intact Arterial Blood Glucose Arterial Blood Ionized Calcium Urine WBC (Auto) Urine Creatinine Ur Creatinine 24 Hour Urine Total Protein ZINA Screen Crossmatch 03/01/20 03/01/20 03/01/20 11:06 16:22 18:12 WBC 30.5 H Hgb 6.2 L RBC 2.92 L Hct 20.8 L MCV 71 L MCH 21 L RDW 18.2 H Plt Count 560 H Lymph % (Auto) Lymph # [place] % (Auto) [place] # Eos % (Auto) Lymph # (Auto) [place] # (Auto) Eos # (Auto) Seg Neutrophils % Baso # (Auto) Seg Neutrophils # Seg Neuts % (Manual) 79.0 H Lymphocytes % (Manual) 3.0 L Monocytes % (Manual) Nucleated RBC % Seg Neutrophils # Man 24.1 H Lymphocytes # (Manual) 0.9 L Monocytes # (Manual) 2.1 H Eosinophils # (Manual) Basophils # (Manual) ABG pH POC ABG pCO2 POC ABG pO2 ABG pO2 ABG HCO3 ABG O2 Saturation ABG Base Excess ABG Hemoglobin ABG Oxyhemoglobin ABG Sodium ABG Glucose Oxyhemoglobin Sodium Potassium 5.3 H D Chloride Carbon Dioxide 11 L BUN 77 H Creatinine 5.0 H Glucose 54 L POC Glucose 121 H Calcium Phosphorus Magnesium Direct Bilirubin AST Alkaline Phosphatase Albumin 3.0 L Troponin T C-Reactive Protein 36.50 H Rhdfd-2-Pqgagnzyu PEP Interpretation Triglycerides Lipase HDL Cholesterol PTH Intact Arterial Blood Glucose Arterial Blood Ionized Calcium Urine WBC (Auto) Urine Creatinine Ur Creatinine 24 Hour Urine Total Protein ZINA Screen Crossmatch 03/01/20 03/01/20 03/01/20 18:30 23:37 Unknown WBC Hgb RBC Hct MCV MCH RDW Plt Count Lymph % (Auto) Lymph # [place] % (Auto) [place] # Eos % (Auto) Lymph # (Auto) [place] # (Auto) Eos # (Auto) Seg Neutrophils % Baso # (Auto) Seg Neutrophils # Seg Neuts % (Manual) Lymphocytes % (Manual) Monocytes % (Manual) Nucleated RBC % Seg Neutrophils # Man Lymphocytes # (Manual) Monocytes # (Manual) Eosinophils # (Manual) Basophils # (Manual) ABG pH POC ABG pCO2 POC ABG pO2 ABG pO2 ABG HCO3 ABG O2 Saturation ABG Base Excess ABG Hemoglobin ABG Oxyhemoglobin ABG Sodium ABG Glucose Oxyhemoglobin Sodium Potassium Chloride Carbon Dioxide BUN Creatinine Glucose POC Glucose 125 H Calcium Phosphorus Magnesium Direct Bilirubin AST Alkaline Phosphatase Albumin Troponin T C-Reactive Protein Yvjqg-7-Hqoxmufpo PEP Interpretation Triglycerides Lipase 297 H HDL Cholesterol PTH Intact Arterial Blood Glucose Arterial Blood Ionized Calcium Urine WBC (Auto) Urine Creatinine Ur Creatinine 24 Hour Urine Total Protein ZINA Screen Crossmatch See Detail 03/02/20 03/02/20 03/02/20 04:00 05:36 05:36 WBC 26.0 H Hgb 7.8 L RBC 3.26 L Hct 24.2 L MCV 74 L MCH 24 L RDW 21.3 H Plt Count 508 H Lymph % (Auto) Lymph # [place] % (Auto) [place] # Eos % (Auto) Lymph # (Auto) [place] # (Auto) Eos # (Auto) Seg Neutrophils % Baso # (Auto) Seg Neutrophils # Seg Neuts % (Manual) 86.0 H Lymphocytes % (Manual) 4.0 L Monocytes % (Manual) Nucleated RBC % 2.0 H Seg Neutrophils # Man 22.4 H Lymphocytes # (Manual) 1.0 L Monocytes # (Manual) Eosinophils # (Manual) Basophils # (Manual) ABG pH POC ABG pCO2 27.8 L POC ABG pO2 ABG pO2 ABG HCO3 ABG O2 Saturation ABG Base Excess ABG Hemoglobin 8 L ABG Oxyhemoglobin ABG Sodium ABG Glucose Oxyhemoglobin Sodium Potassium Chloride Carbon Dioxide 17 L BUN 85 H Creatinine 5.6 H Glucose 109 H POC Glucose Calcium Phosphorus Magnesium 2.50 H Direct Bilirubin AST Alkaline Phosphatase Albumin 2.3 L Troponin T C-Reactive Protein Kysdy-0-Phmovkbym PEP Interpretation Triglycerides Lipase HDL Cholesterol PTH Intact Arterial Blood Glucose Arterial Blood Ionized Calcium Urine WBC (Auto) Urine Creatinine Ur Creatinine 24 Hour Urine Total Protein ZINA Screen Crossmatch 03/03/20 03/03/20 03/03/20 04:00 04:36 04:36 WBC Hgb RBC Hct MCV MCH RDW Plt Count Lymph % (Auto) Lymph # [place] % (Auto) [place] # Eos % (Auto) Lymph # (Auto) [place] # (Auto) Eos # (Auto) Seg Neutrophils % Baso # (Auto) Seg Neutrophils # Seg Neuts % (Manual) Lymphocytes % (Manual) Monocytes % (Manual) Nucleated RBC % Seg Neutrophils # Man Lymphocytes # (Manual) Monocytes # (Manual) Eosinophils # (Manual) Basophils # (Manual) ABG pH POC ABG pCO2 31.8 L POC ABG pO2 ABG pO2 ABG HCO3 ABG O2 Saturation ABG Base Excess ABG Hemoglobin 8.6 L ABG Oxyhemoglobin ABG Sodium ABG Glucose Oxyhemoglobin Sodium 147 H Potassium Chloride 108.4 H Carbon Dioxide 16 L BUN 87 H Creatinine 6.2 H Glucose POC Glucose Calcium Phosphorus Magnesium 2.50 H Direct Bilirubin 1.0 H AST Alkaline Phosphatase Albumin 2.4 L Troponin T C-Reactive Protein Pjfna-4-Goxozlqnz PEP Interpretation Triglycerides Lipase 119 H HDL Cholesterol PTH Intact Arterial Blood Glucose Arterial Blood Ionized Calcium Urine WBC (Auto) Urine Creatinine Ur Creatinine 24 Hour Urine Total Protein ZINA Screen Crossmatch 03/03/20 03/03/20 03/03/20 04:36 12:48 17:48 WBC 28.0 H Hgb 8.1 L RBC 3.41 L Hct 25.3 L MCV 74 L MCH 24 L RDW 20.8 H Plt Count 557 H Lymph % (Auto) Lymph # [place] % (Auto) [place] # Eos % (Auto) Lymph # (Auto) [place] # (Auto) Eos # (Auto) Seg Neutrophils % Baso # (Auto) Seg Neutrophils # Seg Neuts % (Manual) 82.0 H Lymphocytes % (Manual) 4.0 L Monocytes % (Manual) Nucleated RBC % Seg Neutrophils # Man 23.0 H Lymphocytes # (Manual) 1.1 L Monocytes # (Manual) 2.0 H Eosinophils # (Manual) Basophils # (Manual) ABG pH POC ABG pCO2 POC ABG pO2 ABG pO2 ABG HCO3 ABG O2 Saturation ABG Base Excess ABG Hemoglobin ABG Oxyhemoglobin ABG Sodium ABG Glucose Oxyhemoglobin Sodium Potassium Chloride Carbon Dioxide BUN Creatinine Glucose POC Glucose 131 H 113 H Calcium Phosphorus Magnesium Direct Bilirubin AST Alkaline Phosphatase Albumin Troponin T C-Reactive Protein Nrvnq-9-Qspdeyzmt PEP Interpretation Triglycerides Lipase HDL Cholesterol PTH Intact Arterial Blood Glucose Arterial Blood Ionized Calcium Urine WBC (Auto) Urine Creatinine Ur Creatinine 24 Hour Urine Total Protein ZINA Screen Crossmatch 03/03/20 03/04/20 03/04/20 23:43 03:43 04:05 WBC Hgb RBC Hct MCV MCH RDW Plt Count Lymph % (Auto) Lymph # [place] % (Auto) [place] # Eos % (Auto) Lymph # (Auto) [place] # (Auto) Eos # (Auto) Seg Neutrophils % Baso # (Auto) Seg Neutrophils # Seg Neuts % (Manual) Lymphocytes % (Manual) Monocytes % (Manual) Nucleated RBC % Seg Neutrophils # Man Lymphocytes # (Manual) Monocytes # (Manual) Eosinophils # (Manual) Basophils # (Manual) ABG pH POC ABG pCO2 POC ABG pO2 ABG pO2 57.4 L ABG HCO3 27.2 H ABG O2 Saturation 88.6 L ABG Base Excess ABG Hemoglobin ABG Oxyhemoglobin ABG Sodium ABG Glucose Oxyhemoglobin Sodium Potassium 3.3 L Chloride Carbon Dioxide BUN 65 H Creatinine 5.3 H Glucose 152 H POC Glucose 149 H Calcium Phosphorus Magnesium Direct Bilirubin 0.7 H AST Alkaline Phosphatase Albumin 2.5 L Troponin T C-Reactive Protein Xuijq-5-Hoeqegeri PEP Interpretation Triglycerides Lipase HDL Cholesterol PTH Intact Arterial Blood Glucose Arterial Blood Ionized Calcium Urine WBC (Auto) Urine Creatinine Ur Creatinine 24 Hour Urine Total Protein ZINA Screen Crossmatch 03/04/20 03/04/20 03/04/20 04:05 05:26 12:21 WBC 30.1 H Hgb 8.2 L RBC 3.44 L Hct 25.2 L MCV 73 L MCH 24 L RDW 20.7 H Plt Count 554 H Lymph % (Auto) 3.3 L Lymph # [place] % (Auto) [place] # Eos % (Auto) Lymph # (Auto) 1.0 L [place] # (Auto) 2.0 H Eos # (Auto) Seg Neutrophils % 88.6 H Baso # (Auto) Seg Neutrophils # 26.6 H Seg Neuts % (Manual) Lymphocytes % (Manual) Monocytes % (Manual) Nucleated RBC % Seg Neutrophils # Man Lymphocytes # (Manual) Monocytes # (Manual) Eosinophils # (Manual) Basophils # (Manual) ABG pH POC ABG pCO2 POC ABG pO2 ABG pO2 ABG HCO3 ABG O2 Saturation ABG Base Excess ABG Hemoglobin ABG Oxyhemoglobin ABG Sodium ABG Glucose Oxyhemoglobin Sodium Potassium Chloride Carbon Dioxide BUN Creatinine Glucose POC Glucose 136 H 155 H Calcium Phosphorus Magnesium Direct Bilirubin AST Alkaline Phosphatase Albumin Troponin T C-Reactive Protein Tjzep-3-Ykiitpmcs PEP Interpretation Triglycerides Lipase HDL Cholesterol PTH Intact Arterial Blood Glucose Arterial Blood Ionized Calcium Urine WBC (Auto) Urine Creatinine Ur Creatinine 24 Hour Urine Total Protein ZINA Screen Crossmatch 03/04/20 03/04/20 03/04/20 18:02 19:00 23:24 WBC Hgb RBC Hct MCV MCH RDW Plt Count Lymph % (Auto) Lymph # [place] % (Auto) [place] # Eos % (Auto) Lymph # (Auto) [place] # (Auto) Eos # (Auto) Seg Neutrophils % Baso # (Auto) Seg Neutrophils # Seg Neuts % (Manual) Lymphocytes % (Manual) Monocytes % (Manual) Nucleated RBC % Seg Neutrophils # Man Lymphocytes # (Manual) Monocytes # (Manual) Eosinophils # (Manual) Basophils # (Manual) ABG pH POC ABG pCO2 POC ABG pO2 ABG pO2 ABG HCO3 ABG O2 Saturation ABG Base Excess ABG Hemoglobin ABG Oxyhemoglobin ABG Sodium ABG Glucose Oxyhemoglobin Sodium Potassium Chloride Carbon Dioxide BUN Creatinine Glucose POC Glucose 124 H 115 H Calcium Phosphorus Magnesium Direct Bilirubin AST Alkaline Phosphatase Albumin Troponin T C-Reactive Protein Dlkyy-7-Mhcxoylsh PEP Interpretation Triglycerides Lipase 72 H HDL Cholesterol PTH Intact Arterial Blood Glucose Arterial Blood Ionized Calcium Urine WBC (Auto) Urine Creatinine Ur Creatinine 24 Hour Urine Total Protein ZINA Screen Crossmatch 03/05/20 03/05/20 03/05/20 05:04 05:29 06:00 WBC Hgb RBC Hct MCV MCH RDW Plt Count Lymph % (Auto) Lymph # [place] % (Auto) [place] # Eos % (Auto) Lymph # (Auto) [place] # (Auto) Eos # (Auto) Seg Neutrophils % Baso # (Auto) Seg Neutrophils # Seg Neuts % (Manual) Lymphocytes % (Manual) Monocytes % (Manual) Nucleated RBC % Seg Neutrophils # Man Lymphocytes # (Manual) Monocytes # (Manual) Eosinophils # (Manual) Basophils # (Manual) ABG pH POC ABG pCO2 POC ABG pO2 ABG pO2 62.5 L ABG HCO3 26.4 H ABG O2 Saturation 92.1 L ABG Base Excess ABG Hemoglobin 9.3 L ABG Oxyhemoglobin ABG Sodium ABG Glucose Oxyhemoglobin 89.9 L Sodium Potassium Chloride Carbon Dioxide BUN 54 H Creatinine 5.4 H Glucose 125 H POC Glucose 134 H Calcium Phosphorus Magnesium Direct Bilirubin 0.6 H AST Alkaline Phosphatase 133 H Albumin 2.5 L Troponin T C-Reactive Protein Ijxjo-7-Kthhujjcw PEP Interpretation Triglycerides Lipase HDL Cholesterol PTH Intact Arterial Blood Glucose Arterial Blood Ionized Calcium Urine WBC (Auto) Urine Creatinine Ur Creatinine 24 Hour Urine Total Protein ZINA Screen Crossmatch 03/05/20 03/05/20 03/05/20 12:18 18:01 21:39 WBC Hgb RBC Hct MCV MCH RDW Plt Count Lymph % (Auto) Lymph # [place] % (Auto) [place] # Eos % (Auto) Lymph # (Auto) [place] # (Auto) Eos # (Auto) Seg Neutrophils % Baso # (Auto) Seg Neutrophils # Seg Neuts % (Manual) Lymphocytes % (Manual) Monocytes % (Manual) Nucleated RBC % Seg Neutrophils # Man Lymphocytes # (Manual) Monocytes # (Manual) Eosinophils # (Manual) Basophils # (Manual) ABG pH POC ABG pCO2 POC ABG pO2 ABG pO2 ABG HCO3 ABG O2 Saturation ABG Base Excess ABG Hemoglobin ABG Oxyhemoglobin ABG Sodium ABG Glucose Oxyhemoglobin Sodium Potassium Chloride Carbon Dioxide BUN Creatinine Glucose POC Glucose 118 H 108 H 123 H Calcium Phosphorus Magnesium Direct Bilirubin AST Alkaline Phosphatase Albumin Troponin T C-Reactive Protein Cxwpf-4-Lxelxechw PEP Interpretation Triglycerides Lipase HDL Cholesterol PTH Intact Arterial Blood Glucose Arterial Blood Ionized Calcium Urine WBC (Auto) Urine Creatinine Ur Creatinine 24 Hour Urine Total Protein ZINA Screen Crossmatch 03/06/20 03/06/20 03/06/20 04:40 04:41 05:44 WBC Hgb RBC Hct MCV MCH RDW Plt Count Lymph % (Auto) Lymph # [place] % (Auto) [place] # Eos % (Auto) Lymph # (Auto) [place] # (Auto) Eos # (Auto) Seg Neutrophils % Baso # (Auto) Seg Neutrophils # Seg Neuts % (Manual) Lymphocytes % (Manual) Monocytes % (Manual) Nucleated RBC % Seg Neutrophils # Man Lymphocytes # (Manual) Monocytes # (Manual) Eosinophils # (Manual) Basophils # (Manual) ABG pH POC ABG pCO2 POC ABG pO2 64.9 L ABG pO2 ABG HCO3 ABG O2 Saturation ABG Base Excess ABG Hemoglobin 9.9 L ABG Oxyhemoglobin 90.5 L ABG Sodium ABG Glucose Oxyhemoglobin Sodium Potassium Chloride 94.7 L Carbon Dioxide BUN 70 H Creatinine 7.1 H Glucose 113 H POC Glucose 134 H Calcium Phosphorus Magnesium Direct Bilirubin AST Alkaline Phosphatase Albumin Troponin T C-Reactive Protein Qhomr-8-Sgprcjtju PEP Interpretation Triglycerides Lipase HDL Cholesterol PTH Intact Arterial Blood Glucose Arterial Blood Ionized Calcium Urine WBC (Auto) Urine Creatinine Ur Creatinine 24 Hour Urine Total Protein ZINA Screen Crossmatch 03/06/20 03/06/20 03/06/20 08:54 11:56 18:19 WBC 31.5 H Hgb 8.7 L RBC Hct 27.8 L MCV 75 L MCH 23 L RDW 21.2 H Plt Count 516 H Lymph % (Auto) Lymph # [place] % (Auto) [place] # Eos % (Auto) Lymph # (Auto) [place] # (Auto) Eos # (Auto) Seg Neutrophils % Baso # (Auto) Seg Neutrophils # Seg Neuts % (Manual) 93.0 H Lymphocytes % (Manual) 2.0 L Monocytes % (Manual) Nucleated RBC % Seg Neutrophils # Man 29.3 H Lymphocytes # (Manual) 0.6 L Monocytes # (Manual) Eosinophils # (Manual) 0.6 H Basophils # (Manual) ABG pH POC ABG pCO2 POC ABG pO2 ABG pO2 ABG HCO3 ABG O2 Saturation ABG Base Excess ABG Hemoglobin ABG Oxyhemoglobin ABG Sodium ABG Glucose Oxyhemoglobin Sodium Potassium Chloride Carbon Dioxide BUN Creatinine Glucose POC Glucose 131 H 117 H Calcium Phosphorus Magnesium Direct Bilirubin AST Alkaline Phosphatase Albumin Troponin T C-Reactive Protein Nbnba-6-Euvheumyz PEP Interpretation Triglycerides Lipase HDL Cholesterol PTH Intact Arterial Blood Glucose Arterial Blood Ionized Calcium Urine WBC (Auto) Urine Creatinine Ur Creatinine 24 Hour Urine Total Protein ZINA Screen Crossmatch 03/07/20 03/07/20 03/07/20 04:42 05:03 05:03 WBC 26.9 H Hgb 8.3 L RBC 3.50 L Hct 26.6 L MCV 76 L MCH 24 L RDW 21.3 H Plt Count 470 H Lymph % (Auto) Lymph # [place] % (Auto) [place] # Eos % (Auto) Lymph # (Auto) [place] # (Auto) Eos # (Auto) Seg Neutrophils % Baso # (Auto) Seg Neutrophils # Seg Neuts % (Manual) 89.0 H Lymphocytes % (Manual) 4.0 L Monocytes % (Manual) Nucleated RBC % Seg Neutrophils # Man 23.9 H Lymphocytes # (Manual) 1.1 L Monocytes # (Manual) Eosinophils # (Manual) Basophils # (Manual) 0.3 H ABG pH POC ABG pCO2 POC ABG pO2 68.3 L ABG pO2 ABG HCO3 ABG O2 Saturation ABG Base Excess ABG Hemoglobin 9.3 L ABG Oxyhemoglobin ABG Sodium ABG Glucose 112 H Oxyhemoglobin Sodium Potassium Chloride 94.8 L Carbon Dioxide BUN 52 H Creatinine 6.3 H Glucose 106 H POC Glucose Calcium Phosphorus Magnesium Direct Bilirubin AST Alkaline Phosphatase 132 H Albumin 2.5 L Troponin T C-Reactive Protein Lzuac-1-Fipaadjov PEP Interpretation Triglycerides Lipase HDL Cholesterol PTH Intact Arterial Blood Glucose 112 H Arterial Blood Ionized Calcium Urine WBC (Auto) Urine Creatinine Ur Creatinine 24 Hour Urine Total Protein ZINA Screen Crossmatch 03/07/20 03/07/20 03/07/20 12:08 18:05 23:29 WBC Hgb RBC Hct MCV MCH RDW Plt Count Lymph % (Auto) Lymph # [place] % (Auto) [place] # Eos % (Auto) Lymph # (Auto) [place] # (Auto) Eos # (Auto) Seg Neutrophils % Baso # (Auto) Seg Neutrophils # Seg Neuts % (Manual) Lymphocytes % (Manual) Monocytes % (Manual) Nucleated RBC % Seg Neutrophils # Man Lymphocytes # (Manual) Monocytes # (Manual) Eosinophils # (Manual) Basophils # (Manual) ABG pH POC ABG pCO2 POC ABG pO2 ABG pO2 ABG HCO3 ABG O2 Saturation ABG Base Excess ABG Hemoglobin ABG Oxyhemoglobin ABG Sodium ABG Glucose Oxyhemoglobin Sodium Potassium Chloride Carbon Dioxide BUN Creatinine Glucose POC Glucose 114 H 111 H 118 H Calcium Phosphorus Magnesium Direct Bilirubin AST Alkaline Phosphatase Albumin Troponin T C-Reactive Protein Jsbeu-3-Aqwwhlmly PEP Interpretation Triglycerides Lipase HDL Cholesterol PTH Intact Arterial Blood Glucose Arterial Blood Ionized Calcium Urine WBC (Auto) Urine Creatinine Ur Creatinine 24 Hour Urine Total Protein ZINA Screen Crossmatch 03/08/20 03/08/20 03/08/20 04:50 17:45 23:53 WBC Hgb RBC Hct MCV MCH RDW Plt Count Lymph % (Auto) Lymph # [place] % (Auto) [place] # Eos % (Auto) Lymph # (Auto) [place] # (Auto) Eos # (Auto) Seg Neutrophils % Baso # (Auto) Seg Neutrophils # Seg Neuts % (Manual) Lymphocytes % (Manual) Monocytes % (Manual) Nucleated RBC % Seg Neutrophils # Man Lymphocytes # (Manual) Monocytes # (Manual) Eosinophils # (Manual) Basophils # (Manual) ABG pH POC ABG pCO2 POC ABG pO2 ABG pO2 ABG HCO3 ABG O2 Saturation ABG Base Excess ABG Hemoglobin ABG Oxyhemoglobin ABG Sodium ABG Glucose Oxyhemoglobin Sodium Potassium Chloride 95.5 L Carbon Dioxide BUN 52 H Creatinine 6.2 H Glucose 109 H POC Glucose 106 H 106 H Calcium Phosphorus Magnesium Direct Bilirubin AST Alkaline Phosphatase Albumin Troponin T C-Reactive Protein Cfpdw-3-Lbceyxmzh PEP Interpretation Triglycerides Lipase HDL Cholesterol PTH Intact Arterial Blood Glucose Arterial Blood Ionized Calcium Urine WBC (Auto) Urine Creatinine Ur Creatinine 24 Hour Urine Total Protein ZINA Screen Crossmatch 03/09/20 03/09/20 03/09/20 04:00 07:53 18:22 WBC 21.9 H Hgb 7.5 L RBC 3.27 L Hct 24.3 L MCV 74 L MCH 23 L RDW 20.9 H Plt Count 488 H Lymph % (Auto) Lymph # [place] % (Auto) [place] # Eos % (Auto) Lymph # (Auto) [place] # (Auto) Eos # (Auto) Seg Neutrophils % Baso # (Auto) Seg Neutrophils # Seg Neuts % (Manual) Lymphocytes % (Manual) Monocytes % (Manual) Nucleated RBC % Seg Neutrophils # Man Lymphocytes # (Manual) Monocytes # (Manual) Eosinophils # (Manual) Basophils # (Manual) ABG pH POC ABG pCO2 POC ABG pO2 ABG pO2 ABG HCO3 ABG O2 Saturation ABG Base Excess ABG Hemoglobin ABG Oxyhemoglobin ABG Sodium ABG Glucose Oxyhemoglobin Sodium Potassium Chloride 92.8 L Carbon Dioxide BUN 74 H Creatinine 7.8 H Glucose POC Glucose 114 H Calcium Phosphorus Magnesium Direct Bilirubin AST Alkaline Phosphatase Albumin Troponin T C-Reactive Protein Bzkcg-6-Rimewlchh PEP Interpretation Triglycerides Lipase HDL Cholesterol PTH Intact Arterial Blood Glucose Arterial Blood Ionized Calcium Urine WBC (Auto) Urine Creatinine Ur Creatinine 24 Hour Urine Total Protein ZINA Screen Crossmatch 03/10/20 03/10/20 03/10/20 04:37 04:37 09:53 WBC 16.0 H Hgb 7.1 L RBC 2.99 L Hct 22.4 L MCV 75 L MCH 24 L RDW 21.5 H Plt Count Lymph % (Auto) 9.2 L Lymph # [place] % (Auto) 9.9 H [place] # Eos % (Auto) Lymph # (Auto) [place] # (Auto) 1.6 H Eos # (Auto) Seg Neutrophils % 79.2 H Baso # (Auto) Seg Neutrophils # 12.6 H Seg Neuts % (Manual) Lymphocytes % (Manual) Monocytes % (Manual) Nucleated RBC % Seg Neutrophils # Man Lymphocytes # (Manual) Monocytes # (Manual) Eosinophils # (Manual) Basophils # (Manual) ABG pH POC ABG pCO2 POC ABG pO2 ABG pO2 ABG HCO3 ABG O2 Saturation ABG Base Excess ABG Hemoglobin 7.7 L ABG Oxyhemoglobin ABG Sodium 134.7 L ABG Glucose 103 H Oxyhemoglobin Sodium Potassium Chloride Carbon Dioxide BUN 45 H Creatinine 5.6 H Glucose 108 H POC Glucose Calcium Phosphorus Magnesium Direct Bilirubin AST Alkaline Phosphatase Albumin Troponin T C-Reactive Protein Uxuii-3-Reiqsrazy PEP Interpretation Triglycerides Lipase HDL Cholesterol PTH Intact Arterial Blood Glucose 103 H Arterial Blood Ionized Calcium Urine WBC (Auto) Urine Creatinine Ur Creatinine 24 Hour Urine Total Protein ZINA Screen Crossmatch 03/10/20 03/11/20 03/11/20 23:46 02:52 03:25 WBC Hgb RBC Hct MCV MCH RDW Plt Count Lymph % (Auto) Lymph # [place] % (Auto) [place] # Eos % (Auto) Lymph # (Auto) [place] # (Auto) Eos # (Auto) Seg Neutrophils % Baso # (Auto) Seg Neutrophils # Seg Neuts % (Manual) Lymphocytes % (Manual) Monocytes % (Manual) Nucleated RBC % Seg Neutrophils # Man Lymphocytes # (Manual) Monocytes # (Manual) Eosinophils # (Manual) Basophils # (Manual) ABG pH POC ABG pCO2 POC ABG pO2 77.5 L ABG pO2 ABG HCO3 ABG O2 Saturation ABG Base Excess ABG Hemoglobin 8.0 L ABG Oxyhemoglobin ABG Sodium 135.8 L ABG Glucose Oxyhemoglobin Sodium Potassium Chloride Carbon Dioxide BUN Creatinine Glucose POC Glucose 116 H Calcium Phosphorus Magnesium Direct Bilirubin AST Alkaline Phosphatase Albumin Troponin T 0.093 H C-Reactive Protein Eqhas-1-Upqmsycte PEP Interpretation Triglycerides Lipase HDL Cholesterol PTH Intact Arterial Blood Glucose Arterial Blood Ionized Calcium Urine WBC (Auto) Urine Creatinine Ur Creatinine 24 Hour Urine Total Protein ZINA Screen Crossmatch 03/11/20 03/11/20 03/11/20 04:32 04:32 06:16 WBC 22.4 H Hgb 7.8 L RBC 3.32 L Hct 25.0 L MCV 75 L MCH 24 L RDW 21.4 H Plt Count 553 H Lymph % (Auto) Lymph # [place] % (Auto) [place] # Eos % (Auto) Lymph # (Auto) [place] # (Auto) Eos # (Auto) Seg Neutrophils % Baso # (Auto) Seg Neutrophils # Seg Neuts % (Manual) 81.0 H Lymphocytes % (Manual) 8.0 L Monocytes % (Manual) 8.0 H Nucleated RBC % Seg Neutrophils # Man 18.1 H Lymphocytes # (Manual) Monocytes # (Manual) 1.8 H Eosinophils # (Manual) Basophils # (Manual) 0.2 H ABG pH POC ABG pCO2 POC ABG pO2 ABG pO2 ABG HCO3 ABG O2 Saturation ABG Base Excess ABG Hemoglobin ABG Oxyhemoglobin ABG Sodium ABG Glucose Oxyhemoglobin Sodium Potassium Chloride 96.6 L Carbon Dioxide BUN 64 H Creatinine 6.5 H Glucose 101 H POC Glucose 142 H Calcium Phosphorus Magnesium Direct Bilirubin AST 41 H Alkaline Phosphatase Albumin 2.7 L Troponin T C-Reactive Protein Csrwe-9-Rwfdpjrnc PEP Interpretation Triglycerides Lipase HDL Cholesterol PTH Intact Arterial Blood Glucose Arterial Blood Ionized Calcium Urine WBC (Auto) Urine Creatinine Ur Creatinine 24 Hour Urine Total Protein ZINA Screen Crossmatch 03/11/20 03/11/20 03/11/20 06:50 07:31 14:31 WBC Hgb 7.7 L RBC Hct 23.7 L MCV MCH RDW Plt Count 553 H Lymph % (Auto) Lymph # [place] % (Auto) [place] # Eos % (Auto) Lymph # (Auto) [place] # (Auto) Eos # (Auto) Seg Neutrophils % Baso # (Auto) Seg Neutrophils # Seg Neuts % (Manual) Lymphocytes % (Manual) Monocytes % (Manual) Nucleated RBC % Seg Neutrophils # Man Lymphocytes # (Manual) Monocytes # (Manual) Eosinophils # (Manual) Basophils # (Manual) ABG pH POC ABG pCO2 POC ABG pO2 ABG pO2 67.8 L ABG HCO3 ABG O2 Saturation ABG Base Excess ABG Hemoglobin ABG Oxyhemoglobin ABG Sodium ABG Glucose Oxyhemoglobin Sodium Potassium Chloride Carbon Dioxide BUN Creatinine Glucose POC Glucose Calcium Phosphorus Magnesium Direct Bilirubin AST Alkaline Phosphatase Albumin Troponin T 0.085 H C-Reactive Protein Cenbf-4-Mnsexgimx PEP Interpretation Triglycerides 247 H Lipase HDL Cholesterol 28 L PTH Intact Arterial Blood Glucose Arterial Blood Ionized Calcium Urine WBC (Auto) Urine Creatinine Ur Creatinine 24 Hour Urine Total Protein ZINA Screen Crossmatch 03/12/20 03/12/20 03/13/20 03:46 17:33 04:00 WBC Hgb 6.6 L RBC Hct 19.5 L* MCV MCH RDW Plt Count 603 H Lymph % (Auto) Lymph # [place] % (Auto) [place] # Eos % (Auto) Lymph # (Auto) [place] # (Auto) Eos # (Auto) Seg Neutrophils % Baso # (Auto) Seg Neutrophils # Seg Neuts % (Manual) Lymphocytes % (Manual) Monocytes % (Manual) Nucleated RBC % Seg Neutrophils # Man Lymphocytes # (Manual) Monocytes # (Manual) Eosinophils # (Manual) Basophils # (Manual) ABG pH POC ABG pCO2 POC ABG pO2 78.3 L ABG pO2 ABG HCO3 ABG O2 Saturation ABG Base Excess ABG Hemoglobin 7.9 L ABG Oxyhemoglobin ABG Sodium 134.8 L ABG Glucose Oxyhemoglobin Sodium Potassium Chloride Carbon Dioxide BUN Creatinine Glucose POC Glucose 107 H Calcium Phosphorus Magnesium Direct Bilirubin AST Alkaline Phosphatase Albumin Troponin T C-Reactive Protein Lzoes-8-Pygdvzzoj PEP Interpretation Triglycerides Lipase HDL Cholesterol PTH Intact Arterial Blood Glucose Arterial Blood Ionized Calcium Urine WBC (Auto) Urine Creatinine Ur Creatinine 24 Hour Urine Total Protein ZINA Screen Crossmatch 03/13/20 03/13/20 03/13/20 04:00 08:20 08:45 WBC Hgb 7.0 L RBC Hct 21.8 L MCV MCH RDW Plt Count Lymph % (Auto) Lymph # [place] % (Auto) [place] # Eos % (Auto) Lymph # (Auto) [place] # (Auto) Eos # (Auto) Seg Neutrophils % Baso # (Auto) Seg Neutrophils # Seg Neuts % (Manual) Lymphocytes % (Manual) Monocytes % (Manual) Nucleated RBC % Seg Neutrophils # Man Lymphocytes # (Manual) Monocytes # (Manual) Eosinophils # (Manual) Basophils # (Manual) ABG pH POC ABG pCO2 POC ABG pO2 ABG pO2 ABG HCO3 27.4 H ABG O2 Saturation ABG Base Excess ABG Hemoglobin 8.7 L ABG Oxyhemoglobin ABG Sodium ABG Glucose Oxyhemoglobin 94.6 L Sodium Potassium Chloride Carbon Dioxide BUN Creatinine Glucose POC Glucose Calcium Phosphorus Magnesium Direct Bilirubin AST Alkaline Phosphatase Albumin Troponin T C-Reactive Protein Ezokn-8-Hxplcakef PEP Interpretation Triglycerides Lipase HDL Cholesterol PTH Intact Arterial Blood Glucose Arterial Blood Ionized Calcium Urine WBC (Auto) Urine Creatinine Ur Creatinine 24 Hour Urine Total Protein ZINA Screen Crossmatch See Detail 03/13/20 03/13/20 03/14/20 14:23 15:38 06:15 WBC Hgb RBC Hct MCV MCH RDW Plt Count Lymph % (Auto) Lymph # [place] % (Auto) [place] # Eos % (Auto) Lymph # (Auto) [place] # (Auto) Eos # (Auto) Seg Neutrophils % Baso # (Auto) Seg Neutrophils # Seg Neuts % (Manual) Lymphocytes % (Manual) Monocytes % (Manual) Nucleated RBC % Seg Neutrophils # Man Lymphocytes # (Manual) Monocytes # (Manual) Eosinophils # (Manual) Basophils # (Manual) ABG pH 7.462 H POC ABG pCO2 POC ABG pO2 75.1 L ABG pO2 ABG HCO3 ABG O2 Saturation ABG Base Excess ABG Hemoglobin 8.9 L ABG Oxyhemoglobin ABG Sodium 135.9 L ABG Glucose Oxyhemoglobin Sodium Potassium Chloride 94.2 L 93.1 L Carbon Dioxide BUN 32 H 45 H Creatinine 3.6 H 4.9 H Glucose POC Glucose Calcium Phosphorus Magnesium Direct Bilirubin AST Alkaline Phosphatase Albumin Troponin T C-Reactive Protein Oailo-8-Wxwlwggdi PEP Interpretation Triglycerides Lipase HDL Cholesterol PTH Intact Arterial Blood Glucose Arterial Blood Ionized Calcium 4.5 L Urine WBC (Auto) Urine Creatinine Ur Creatinine 24 Hour Urine Total Protein ZINA Screen Crossmatch 03/14/20 03/14/20 03/15/20 06:15 Unknown 04:31 WBC 13.7 H Hgb 7.8 L 7.7 L 8.1 L RBC 3.13 L Hct 22.4 L 23.8 L 24.7 L MCV 76 L MCH 25 L RDW 21.6 H Plt Count 662 H 729 H Lymph % (Auto) Lymph # [place] % (Auto) [place] # Eos % (Auto) Lymph # (Auto) [place] # (Auto) 1.0 H Eos # (Auto) 0.6 H Seg Neutrophils % 71.5 H Baso # (Auto) Seg Neutrophils # 9.8 H Seg Neuts % (Manual) Lymphocytes % (Manual) Monocytes % (Manual) Nucleated RBC % Seg Neutrophils # Man Lymphocytes # (Manual) Monocytes # (Manual) Eosinophils # (Manual) Basophils # (Manual) ABG pH POC ABG pCO2 POC ABG pO2 ABG pO2 ABG HCO3 ABG O2 Saturation ABG Base Excess ABG Hemoglobin ABG Oxyhemoglobin ABG Sodium ABG Glucose Oxyhemoglobin Sodium Potassium Chloride Carbon Dioxide BUN Creatinine Glucose POC Glucose Calcium Phosphorus Magnesium Direct Bilirubin AST Alkaline Phosphatase Albumin Troponin T C-Reactive Protein Gqgqb-6-Pmeitittk PEP Interpretation Triglycerides Lipase HDL Cholesterol PTH Intact Arterial Blood Glucose Arterial Blood Ionized Calcium Urine WBC (Auto) Urine Creatinine Ur Creatinine 24 Hour Urine Total Protein ZINA Screen Crossmatch 03/15/20 03/15/20 03/16/20 04:31 13:20 00:17 WBC Hgb RBC Hct MCV MCH RDW Plt Count Lymph % (Auto) Lymph # [place] % (Auto) [place] # Eos % (Auto) Lymph # (Auto) [place] # (Auto) Eos # (Auto) Seg Neutrophils % Baso # (Auto) Seg Neutrophils # Seg Neuts % (Manual) Lymphocytes % (Manual) Monocytes % (Manual) Nucleated RBC % Seg Neutrophils # Man Lymphocytes # (Manual) Monocytes # (Manual) Eosinophils # (Manual) Basophils # (Manual) ABG pH POC ABG pCO2 POC ABG pO2 ABG pO2 ABG HCO3 28.9 H ABG O2 Saturation ABG Base Excess 3.9 H ABG Hemoglobin 8.6 L ABG Oxyhemoglobin ABG Sodium ABG Glucose Oxyhemoglobin 94.9 L Sodium Potassium Chloride 95.9 L Carbon Dioxide BUN 60 H Creatinine 5.6 H Glucose POC Glucose 111 H Calcium Phosphorus Magnesium Direct Bilirubin AST Alkaline Phosphatase Albumin Troponin T C-Reactive Protein Yblpj-2-Dpglrvvix PEP Interpretation Triglycerides Lipase HDL Cholesterol PTH Intact Arterial Blood Glucose Arterial Blood Ionized Calcium Urine WBC (Auto) Urine Creatinine Ur Creatinine 24 Hour Urine Total Protein ZINA Screen Crossmatch 03/16/20 03/16/20 03/17/20 04:52 04:52 04:55 WBC 13.9 H Hgb 8.3 L 9.1 L RBC 3.35 L Hct 25.8 L 28.2 L MCV 77 L MCH 25 L RDW 22.1 H Plt Count 799 H 818 H Lymph % (Auto) 11.1 L Lymph # [place] % (Auto) [place] # Eos % (Auto) 4.4 H Lymph # (Auto) [place] # (Auto) 0.9 H Eos # (Auto) 0.6 H Seg Neutrophils % 77.4 H Baso # (Auto) Seg Neutrophils # 10.8 H Seg Neuts % (Manual) Lymphocytes % (Manual) Monocytes % (Manual) Nucleated RBC % Seg Neutrophils # Man Lymphocytes # (Manual) Monocytes # (Manual) Eosinophils # (Manual) Basophils # (Manual) ABG pH POC ABG pCO2 POC ABG pO2 ABG pO2 ABG HCO3 ABG O2 Saturation ABG Base Excess ABG Hemoglobin ABG Oxyhemoglobin ABG Sodium ABG Glucose Oxyhemoglobin Sodium Potassium Chloride 93.8 L Carbon Dioxide BUN 72 H Creatinine 5.8 H Glucose POC Glucose Calcium Phosphorus Magnesium Direct Bilirubin AST Alkaline Phosphatase Albumin 2.7 L Troponin T C-Reactive Protein Enbqr-8-Jdzywlqxt PEP Interpretation Triglycerides Lipase HDL Cholesterol PTH Intact Arterial Blood Glucose Arterial Blood Ionized Calcium Urine WBC (Auto) Urine Creatinine Ur Creatinine 24 Hour Urine Total Protein ZINA Screen Crossmatch 03/17/20 03/18/20 03/18/20 04:55 10:28 14:00 WBC Hgb RBC Hct MCV MCH RDW Plt Count Lymph % (Auto) Lymph # [place] % (Auto) [place] # Eos % (Auto) Lymph # (Auto) [place] # (Auto) Eos # (Auto) Seg Neutrophils % Baso # (Auto) Seg Neutrophils # Seg Neuts % (Manual) Lymphocytes % (Manual) Monocytes % (Manual) Nucleated RBC % Seg Neutrophils # Man Lymphocytes # (Manual) Monocytes # (Manual) Eosinophils # (Manual) Basophils # (Manual) ABG pH POC ABG pCO2 POC ABG pO2 ABG pO2 ABG HCO3 ABG O2 Saturation ABG Base Excess ABG Hemoglobin ABG Oxyhemoglobin ABG Sodium ABG Glucose Oxyhemoglobin Sodium Potassium Chloride 93.5 L 94.4 L Carbon Dioxide BUN 40 H 37 H Creatinine 3.8 H 3.0 H Glucose 112 H POC Glucose Calcium Phosphorus Magnesium Direct Bilirubin AST Alkaline Phosphatase Albumin Troponin T C-Reactive Protein Tttzn-3-Jhigqepma PEP Interpretation Triglycerides Lipase HDL Cholesterol PTH Intact Arterial Blood Glucose Arterial Blood Ionized Calcium Urine WBC (Auto) Urine Creatinine 278.4 H Ur Creatinine 24 Hour 0.3 L Urine Total Protein ZINA Screen Crossmatch 03/19/20 03/19/20 03/20/20 05:55 05:55 04:31 WBC 15.1 H Hgb 9.4 L RBC Hct 29.3 L MCV 78 L MCH 25 L RDW 21.9 H Plt Count 775 H Lymph % (Auto) Lymph # [place] % (Auto) [place] # Eos % (Auto) 5.4 H Lymph # (Auto) [place] # (Auto) 0.9 H Eos # (Auto) 0.8 H Seg Neutrophils % 73.7 H Baso # (Auto) 0.2 H Seg Neutrophils # 11.1 H Seg Neuts % (Manual) Lymphocytes % (Manual) Monocytes % (Manual) Nucleated RBC % Seg Neutrophils # Man Lymphocytes # (Manual) Monocytes # (Manual) Eosinophils # (Manual) Basophils # (Manual) ABG pH POC ABG pCO2 POC ABG pO2 ABG pO2 ABG HCO3 ABG O2 Saturation ABG Base Excess ABG Hemoglobin ABG Oxyhemoglobin ABG Sodium ABG Glucose Oxyhemoglobin Sodium 136 L Potassium Chloride 92.0 L 94.8 L Carbon Dioxide BUN 28 H 40 H Creatinine 3.5 H 4.3 H Glucose POC Glucose Calcium Phosphorus Magnesium Direct Bilirubin AST Alkaline Phosphatase Albumin Troponin T C-Reactive Protein Sornh-0-Ftwlsgdje PEP Interpretation Triglycerides Lipase HDL Cholesterol PTH Intact Arterial Blood Glucose Arterial Blood Ionized Calcium Urine WBC (Auto) Urine Creatinine Ur Creatinine 24 Hour Urine Total Protein ZINA Screen Crossmatch Allied health notes reviewed: nursing
--- NOTE | 2020-03-20 15:18 | Progress Note ---
Assessment and Plan Cultures: Urine culture grew 10-100,000 usual xavier. Blood culture 02/26/2020 no growth 02/29/2020 sputum culture: rare usual xavier 03/06/2020 blood culture: no growth 03/07/2020 sputum culture: Ana Luisa 03/11/2020 ET aspirate: no growth thus far Assessment: 39 years old female with history of hypertension, previous kidney stone, hyperlipidemia and obesity admitted on 02/24/2020 due to a week history of severe epigastric abdominal pain radiated to the right flank and back: #Acute sepsis: Likely secondary to severe pancreatitis and related complications. Remains critically ill. #Acute severe pancreatitis: Unclear etiology. Initial non-contrasted CT showed no evidence of necrosis or pseudocyst or abscess formation. Repeat CT 03/05 with interval worsening of acute pancreatitis without clear evidence of necrosis, however was done without IV contrast due to her renal function. Ongoing fevers likely to due severe pancreatitis and ?related complications #Acute renal failure: now requiring dialysis. Nephrology on board. #Acute respiratory hypoxic failure: re-intubated 03/11/2020, back on the vent. #?Alcohol abuse Recommendations: -Monitor off antibiotics -Monitor fever, if more than 100 please obtain blood cultures We will follow Alan Lim MD [facility] ([facility] M: [phone] O: [phone] F: [phone] Subjective Date of service: 03/20/20 Principal diagnosis: HTNsive urgency; Morbid obesity; Ac. pancreatitis; Abdominal pain Interval history: Afebrile, no other acute changes. Objective - Exam Narrative Exam: General appearance: Alert no acute distress intubated Eyes: anicteric sclerae, limited HENT: Atraumatic; oropharynx endotracheal tube in place Lungs: Diminished breath sounds bilaterally CV: RRR Abdomen: Soft, distended, nontender Extremities: no edema, no cyanosis Skin: No rash. Psych: Nonagitated Neuro: Alert follows commands - Constitutional Vitals: Vital Signs Temp Pulse Resp BP Pulse Ox 99.4 F 88 18 153/100 97 03/20/20 11:44 03/20/20 11:44 03/20/20 11:44 03/20/20 11:44 03/20/20 11:44 Temperature -Last 24 Hours Temperature 99.4 F Temperature 98.5 F Temperature 99.3 F Temperature 99.0 F Temperature 99.2 F Temperature 98.7 F - Labs CBC & Chem 7: 03/19/20 05:55 03/20/20 04:31 Labs: Abnormal lab results 03/20/20 Range/Units 04:31 Chloride 94.8 L (98-107) mmol/L BUN 40 H (7-17) mg/dL Creatinine 4.3 H (0.6-1.2) mg/dL
[2020-03-20] MEDS: EPOETIN ALFA 10,000 UNIT/1 ML INJ IV PRN (16:00)
--- NOTE | 2020-03-20 19:02 | Progress Note ---
Assessment and Plan Assessment * ESRD --Serologies: ANCA, C3, C4 - negative; ZINA positive * Acute hypoxic respiratory failure * Chest pain --Elevated troponin * Metabolic acidosis * Acute severe pancreatitis * Fever * Accelerated hypertension - resolved * Anemia Plan: * Continue HD MWF schedule for now- UF as tolerated * Monitor SCr trend and UOP for evidence of recovery - Uncertain re: renal prognosis. Patient reports 9 year hx of hypertension, untreated at times. She reports that she was not under the consistent care of a healthcare provider. * Cardiology recommendations reviewed - conservative cardiac management for now * GI recommendations reviewed * Continue antiHTN medications * Abx per ID * Hold ACEi for now * Epogen TIW prn * Dose medications for renal function * Avoid potential nephrotoxins * follow up 24hr crcl noted, will need perm cath and HD unit placement Subjective Date of service: 03/20/20 Principal diagnosis: HTNsive urgency; Morbid obesity; Ac. pancreatitis; Abdominal pain Interval history: resting in bed today Objective - Exam Narrative Exam: General appearance: well-developed, well-nourished EENT: ATNC Respiratory: Present: Clear to Ascultation Cardiology: regular, S1S2 Gastrointestinal: normal, no tenderness, distended Integumentary: no rash, warm and dry Musculoskeletal: other (no edema) Psychiatric: cooperative - Vital Signs Vital signs: Vital Signs - 12hr 03/20/20 03/20/20 03/20/20 07:11 07:17 11:44 Temperature 98.5 F 99.4 F Pulse Rate 101 H 88 Pulse Rate [ 98 H Left Dorsalis Pedis] Pulse Rate [ 98 H Right Dorsalis Pedis] Pulse Rate [ 98 H Right Radial] Respiratory 19 18 18 Rate Blood Pressure 151/96 153/100 O2 Sat by Pulse 97 99 97 Oximetry 03/20/20 16:10 Temperature 98.0 F Pulse Rate 82 Pulse Rate [ Left Dorsalis Pedis] Pulse Rate [ Right Dorsalis Pedis] Pulse Rate [ Right Radial] Respiratory 18 Rate Blood Pressure 163/107 O2 Sat by Pulse Oximetry - Lab 03/19/20 05:55 03/20/20 04:31 Most recent lab results ABG pH 7.420 pH Units (7.350-7.450) 03/15/20 13:20 ABG pCO2 45.5 mm Hg 03/15/20 13:20 ABG pO2 85.8 mm Hg (80.0-90.0) 03/15/20 13:20 ABG HCO3 28.9 mmol/L (20.0-26.0) H 03/15/20 13:20 ABG O2 Saturation 97.1 % (95.0-99.0) 03/15/20 13:20 Calcium 10.2 mg/dL (8.4-10.2) 03/20/20 04:31 Phosphorus 6.10 mg/dL (2.5-4.5) H 03/01/20 04:37 Magnesium 2.00 mg/dL (1.7-2.3) 03/07/20 05:03 Urine Creatinine 278.4 mg/dL (0.1-20.0) H 03/18/20 14:00 Urine Total Protein 150 mg/dL (5-11.8) H 02/25/20 22:55 Medications & Allergies - Medications Allergies/Adverse Reactions: Allergies No Known Allergies Allergy (Unverified 09/05/19 10:15) Home Medications: Home Medications Medication Instructions Recorded Confirmed Last Taken Type Amlodipine Besylate [Norvasc] 10 mg PO DAILY 09/05/19 02/24/20 09/04/19 History Furosemide [Lasix] 20 mg PO QDAY #30 tablet 09/05/19 02/24/20 Unknown Rx Lisinopril [Zestril] 5 mg PO DAILY #30 tablet 09/05/19 02/24/20 Unknown Rx Metoprolol [Lopressor TAB] 25 mg PO BID #60 tablet 09/05/19 02/24/20 Unknown Rx Active Medications: Generic Name Dose Route Start Last Admin Trade Name Terryq PRN Reason Stop Dose Admin Acetaminophen 650 mg 02/26/20 16:23 03/14/20 22:03 Tylenol PO 650 mg Q4H PRN Administration Pain, Mild (1-3)/ Temp >100. Albuterol 2.5 mg 02/27/20 17:55 Proventil IH Q4HRT PRN Shortness Of Breath Amlodipine Besylate 10 mg 02/28/20 10:00 03/20/20 09:15 Amlodipine PO 10 mg QDAY INDU Administration Aspirin 325 mg 03/15/20 11:00 03/20/20 09:15 Aspirin PO 325 mg QDAY INDU Administration Dextrose 50 ml 02/29/20 08:00 03/01/20 00:20 D50w (25gm) Syringe IV 10 ml Q30MIN PRN Administration HYPOGLYCEMIA Protocol Epoetin Prosper 10,000 unit 03/12/20 10:00 03/20/20 16:00 Procrit IV 10,000 unit NIKOLAY PRN Administration hemodialysis Heparin Sodium (Porcine) 5,000 unit 03/11/20 14:00 03/20/20 16:49 Heparin SUB-Q Not Given Q8HR INDU Hydralazine HCl 50 mg 03/20/20 16:00 03/20/20 17:02 Apresoline PO 50 mg Q8HR INDU Administration Hydrophilic Ointment 1 applic 03/11/20 06:01 Vaseline Lip Therapy TP Q2HR PRN Dry Lips Sodium Chloride 100 mls @ 999 mls/hr 03/08/20 17:05 Nacl 0.9% IV NIKOLAY PRN Hypotension Labetalol HCl 10 mg 02/28/20 09:00 03/11/20 03:04 Labetalol IV 10 mg Q4H PRN Administration Hypertension Metoprolol Tartrate 25 mg 02/28/20 10:00 03/20/20 09:15 Metoprolol PO 25 mg BID INDU Administration Morphine Sulfate 2 mg 03/11/20 05:13 03/20/20 11:49 Morphine IV 2 mg Q4H PRN Administration Pain, Moderate (4-6) Multi-Ingred Cream/Lotion/Oil/Oint 1 applic 03/11/20 06:01 Artificial Tears Ophth Oint OU Q4HR PRN Dry Eye(s) Nitroglycerin 0.4 mg 03/11/20 05:14 Nitrostat SL .Q5MIN PRN Chest Pain Ondansetron HCl 4 mg 02/24/20 06:45 02/25/20 23:33 Zofran IV 4 mg Q8H PRN Administration Nausea And Vomiting Pantoprazole Sodium 40 mg 03/16/20 11:00 03/20/20 09:16 Protonix PO 40 mg QDAC INDU Administration Quetiapine Fumarate 100 mg 03/16/20 22:00 03/19/20 21:09 Seroquel PO 100 mg QHS INDU Administration Sodium Chloride 10 ml 02/24/20 10:00 03/20/20 09:16 Sodium Chloride Flush Syringe 10 Ml IV 10 ml BID INDU Administration Sodium Chloride 10 ml 02/24/20 06:45 03/10/20 09:06 Sodium Chloride Flush Syringe 10 Ml IV 10 ml PRN PRN Administration LINE FLUSH
[2020-03-20] MEDS: QUEtiapine 100 MG TAB PO SCH (21:21)
[2020-03-21 06:17] LABS: Calcium 9.6 mg/dL (8.4-10.2)
[2020-03-21] MEDS: hydrALAZINE 25 MG TAB PO SCH ×3 (06:47→21:21)
[2020-03-21] MEDS: HEPARIN 5,000 UNIT/1 ML VIAL SUB-Q SCH ×3 (06:49→21:22)
--- NOTE | 2020-03-21 07:32 | Progress Note ---
Assessment and Plan Assessment and plan: 39-year-old -[place] female with known history of hypertension, history of kidney stones, hyperlipidemia and obesity presenting to the emergency room today complaining of abdominal pain radiating towards right flank and back. Pain is said to be 10/10 in severity. No known relieving or exacerbating factor. She has known history of kidney stones in the past. She has had some nausea but no vomiting and no diarrhea. She denies any hematuria or dysuria, she denies any fever or chills. Patient states she is currently on her menses. Upon arrival in the emergency room patient had elevated blood pressure with systolic in the 200s and diastolic in the 120s. She has had multiple rounds of IV labetalol withoutany significant improvement. Patient admits that she has been out of her medication for a couple of weeks. work-up in the emergency room reveals elevated lipase and CT of the abdomen and pelvis reveals acute pancreatitis. Patient also had hypertensive emergency on Cardene drip admitted to ICU, complicated by acute renal failure, acute respiratory failure requiring intubation, alcohol withdrawal on CIWA protocol, patient's renal function worsened requiring hemodialysis. Patient was ultimately weaned and extubated, evaluated by pulmonary critical GI surgery, nephrology and ID, Stabilized extubated transfer to medical floor,, discharge planning per case management, setting up outpatient HD placement. --Ac.hypoxic resp. failure /s/p extubated 03/15/2020 Extubated 03/15/2020, on BiPAP and Ventimask Patient is refusing BiPAP. On nasal cannula oxygen Patient was intubated initially 02/29/2020, extubated 03/10/2020 Again went into respiratory failure reintubated 03/11/2020, extubated 03/15/2020 On nasal cannula oxygen, titrate O2 sats to more than 90% --Severe sepsis secondary to pneumonia and pancreatitis; s/p meropenem, completed total 14 days per ID ,follow cultures leukocytosis, tachycardia, tachypnea, fever, infiltrate on chest x-ray. Symptoms significantly improved -- Acute severe pancreatitis Initial non-contrasted CT showed no evidence of necrosis or pseudocyst or abscess formation. Repeat CT 03/05 with interval worsening of acute pancreatitis without clear evidence of necrosis with increased jessica-pancreatic fat stranding and disorganized fluid, Symptoms resolved --JUANIS/worsening renal function/on HD Initiated hemodialysis 03/03/2020. Hemodialysis per schedule, MWF If nephro recommend long-term HD Case management to set up outpatient HD --Severe metabolic encephalopathy/POA/resolved Patient is more alert and awake oriented x3 Back to her baseline -- Hypertensive emergency POA s/p Cardene drip, closely monitor Blood pressures moderate control Continue multiple antihypertensives PRN labetalol --Anemia; hemoglobin 9.1 today No external evidence of bleeding Total 3 units of PRBC transfusion GI evaluated , patient is stable now --Chest pain/positive troponins;NSTEMI 2 Probably nonspecific , patient has acute kidney injury on dialysis continue current med management, follow serial cardiac enzymes, EF 60-65% on ECHO, cardiology evaluated and signed off conservative management -- Bilateral pleural effusions. Compressive atelectasis. Incentive spirometry --Alcohol withdrawal . Chronic alcohol use No new alcohol withdrawal symptoms Patient counseled and advised to quit alcohol intake Patient verbalized understanding --Severe metabolic acidosis; resolved On HD per nephrology --Severe protein calorie malnutrition and hypoalbuminemia Nutrition supplements, nutrition consult and supportive care --Medical noncompliance counseled the importance of adhering to the treatment plan Verbalized understanding -- DVT prophylaxis Patient placed on subcutaneous heparin. --Obesity; BMI 37.9 patient needs weight reduction when medically stable. -- Full code status Follow GI and pulmonary evaluation and recommendations We will closely monitor the patient and adjust the management as needed Patient is stable to be transferred out of ICU to telemetry DC planning per case management Possible discharge in 1 to 2 days if stable 03/15; patient is more alert and awake, remains intubated on vent, wean and extubate as tolerated DC planning per case management 03/16; patient received hemodialysis today stable to be transferred out of ICU to telemetry, DC planning per case management 03/17; DC planning per case management, outpatient HD placement if nephrology recommend long-term hemodialysis ; disposition per nephrology , pending decision for long-term hemodialysis .possible discharge in 1 to 2 days if stable 03/19; outpatient HD scheduling per case management 03/20: Stable, awaiting HD. BP still elevated will adjust BP meds INCREASING Hydralazine to 50mg TID 03/21; patient stable awaiting outpatient hemodialysis arrangement. BP is fairly controlled. History Interval history: Patient was seen and evaluated this morning Patient is complaining of pain from her left shoulder, she wants her diclofenac gel to be restarted. Hospitalist Physical - Physical exam Narrative exam: Not in cardiopulmonary distress. The patient appeared well nourished and normally developed. Vital signs as documented. Head exam is unremarkable. No scleral icterus . Neck is without jugular venous distension, thyromegaly, or carotid bruits. Lungs are clear to auscultation. Cardiac exam reveals regular rate and Rhythm. Abdominal exam reveals normal bowel sounds, nontender, no organomegaly. Extremities are nonedematous and both femoral and pedal pulses are normal. [employer]: Alert and oriented 3. No focal weakness. - Constitutional Vitals: Temp Pulse Resp BP Pulse Ox 99.8 F H 96 H 18 148/92 96 03/21/20 04:45 03/21/20 06:47 03/21/20 04:45 03/21/20 06:47 03/21/20 04:45 General appearance: Present: no acute distress, well-nourished, obese, other (Intubated) HEART Score - HEART Score Troponin: Troponin T 0.085 ng/mL (0.00-0.029) H 03/11/20 14:31 Results - Labs CBC & Chem 7: 03/19/20 05:55 03/21/20 05:00 Labs: Laboratory Last Values WBC 15.1 K/mm3 (4.5-11.0) H 03/19/20 05:55 RBC 3.75 M/mm3 (3.65-5.03) 03/19/20 05:55 Hgb 9.4 gm/dl (10.1-14.3) L 03/19/20 05:55 Hct 29.3 % (30.3-42.9) L 03/19/20 05:55 MCV 78 fl (79-97) L 03/19/20 05:55 MCH 25 pg (28-32) L 03/19/20 05:55 MCHC 32 % (30-34) 03/19/20 05:55 RDW 21.9 % (13.2-15.2) H 03/19/20 05:55 Plt Count 775 K/mm3 (140-440) H 03/19/20 05:55 Lymph % (Auto) 14.1 % (13.4-35.0) 03/19/20 05:55 Camp % (Auto) 5.7 % (0.0-7.3) 03/19/20 05:55 Eos % (Auto) 5.4 % (0.0-4.3) H 03/19/20 05:55 Baso % (Auto) 1.1 % (0.0-1.8) 03/19/20 05:55 Lymph # (Auto) 2.1 K/mm3 (1.2-5.4) 03/19/20 05:55 Camp # (Auto) 0.9 K/mm3 (0.0-0.8) H 03/19/20 05:55 Eos # (Auto) 0.8 K/mm3 (0.0-0.4) H 03/19/20 05:55 Baso # (Auto) 0.2 K/mm3 (0.0-0.1) H 03/19/20 05:55 Add Manual Diff Complete 03/11/20 04:32 Total Counted 100 03/11/20 04:32 Seg Neutrophils % 73.7 % (40.0-70.0) H 03/19/20 05:55 Seg Neuts % (Manual) 81.0 % (40.0-70.0) H 03/11/20 04:32 Band Neutrophils % 1.0 % 03/11/20 04:32 Lymphocytes % (Manual) 8.0 % (13.4-35.0) L 03/11/20 04:32 Reactive Lymphs % (Man) 0 % 03/11/20 04:32 Monocytes % (Manual) 8.0 % (0.0-7.3) H 03/11/20 04:32 Eosinophils % (Manual) 1.0 % (0.0-4.3) 03/11/20 04:32 Basophils % (Manual) 1.0 % (0.0-1.8) 03/11/20 04:32 Metamyelocytes % 0 % 03/11/20 04:32 Myelocytes % 0 % 03/11/20 04:32 Promyelocytes % 0 % 03/11/20 04:32 Blast Cells % 0 % 03/11/20 04:32 Nucleated RBC % Not Reportable 03/11/20 04:32 Seg Neutrophils # 11.1 K/mm3 (1.8-7.7) H 03/19/20 05:55 Seg Neutrophils # Man 18.1 K/mm3 (1.8-7.7) H 03/11/20 04:32 Band Neutrophils # 0.2 K/mm3 03/11/20 04:32 Lymphocytes # (Manual) 1.8 K/mm3 (1.2-5.4) 03/11/20 04:32 Abs React Lymphs (Man) 0.0 K/mm3 03/11/20 04:32 Monocytes # (Manual) 1.8 K/mm3 (0.0-0.8) H 03/11/20 04:32 Eosinophils # (Manual) 0.2 K/mm3 (0.0-0.4) 03/11/20 04:32 Basophils # (Manual) 0.2 K/mm3 (0.0-0.1) H 03/11/20 04:32 Metamyelocytes # 0.0 K/mm3 03/11/20 04:32 Myelocytes # 0.0 K/mm3 03/11/20 04:32 Promyelocytes # 0.0 K/mm3 03/11/20 04:32 Blast Cells # 0.0 K/mm3 03/11/20 04:32 WBC Morphology Not Reportable 03/11/20 04:32 Hypersegmented Neuts Not Reportable 03/11/20 04:32 Hyposegmented Neuts Not Reportable 03/11/20 04:32 Hypogranular Neuts Not Reportable 03/11/20 04:32 Smudge Cells Not Reportable 03/11/20 04:32 Toxic Granulation Not Reportable 03/11/20 04:32 Toxic Vacuolation Not Reportable 03/11/20 04:32 Dohle Bodies Not Reportable 03/11/20 04:32 Pelger-Huet Anomaly Not Reportable 03/11/20 04:32 Maai Rods Not Reportable 03/11/20 04:32 Platelet Estimate Consistent w auto 03/11/20 04:32 Clumped Platelets Not Reportable 03/11/20 04:32 Plt Clumps, EDTA Not Reportable 03/11/20 04:32 Large Platelets Not Reportable 03/11/20 04:32 Giant Platelets Not Reportable 03/11/20 04:32 Platelet Satelliting Not Reportable 03/11/20 04:32 Plt Morphology Comment Not Reportable 03/11/20 04:32 RBC Morphology Not Reportable 03/11/20 04:32 Dimorphic RBCs Not Reportable 03/11/20 04:32 Polychromasia Not Reportable 03/11/20 04:32 Hypochromasia 1+ 03/11/20 04:32 Poikilocytosis Not Reportable 03/11/20 04:32 Anisocytosis 1+ 03/11/20 04:32 Microcytosis Not Reportable 03/11/20 04:32 Macrocytosis Not Reportable 03/11/20 04:32 Spherocytes Not Reportable 03/11/20 04:32 Pappenheimer Bodies Not Reportable 03/11/20 04:32 Sickle Cells Not Reportable 03/11/20 04:32 Target Cells Not Reportable 03/11/20 04:32 Tear Drop Cells Rare 03/11/20 04:32 Ovalocytes Few 03/11/20 04:32 Helmet Cells Not Reportable 03/11/20 04:32 Jackson-Moneta Bodies Not Reportable 03/11/20 04:32 [place] Rings Not Reportable 03/11/20 04:32 Mirna Cells Not Reportable 03/11/20 04:32 Bite Cells Not Reportable 03/11/20 04:32 Crenated Cell Not Reportable 03/11/20 04:32 Elliptocytes Not Reportable 03/11/20 04:32 Acanthocytes (Spur) Not Reportable 03/11/20 04:32 Rouleaux Not Reportable 03/11/20 04:32 Hemoglobin C Crystals Not Reportable 03/11/20 04:32 Schistocytes Not Reportable 03/11/20 04:32 Malaria parasites Not Reportable 03/11/20 04:32 Edgardo Bodies Not Reportable 03/11/20 04:32 Hem Pathologist Commnt No 03/11/20 04:32 PT 14.1 Sec. (12.2-14.9) 03/11/20 07:31 INR 1.07 (0.87-1.13) 03/11/20 07:31 APTT 32.0 Sec. (24.2-36.6) 03/11/20 07:31 ABG pH 7.420 pH Units (7.350-7.450) 03/15/20 13:20 POC ABG pCO2 40.5 mmHg (32.0-48.0) 03/13/20 14:23 ABG pCO2 45.5 mm Hg 03/15/20 13:20 POC ABG pO2 75.1 mmHg (83-108) L 03/13/20 14:23 ABG pO2 85.8 mm Hg (80.0-90.0) 03/15/20 13:20 POC ABG HCO3 28.3 03/13/20 14:23 ABG HCO3 28.9 mmol/L (20.0-26.0) H 03/15/20 13:20 ABG O2 Saturation 97.1 % (95.0-99.0) 03/15/20 13:20 ABG O2 Content 11.6 (0.0-44) 03/15/20 13:20 POC ABG Base Excess 4.2 03/13/20 14:23 ABG Base Excess 3.9 mmol/L (-2.0-3.0) H 03/15/20 13:20 ABG Hemoglobin 8.6 gm/dl (12.0-16.0) L 03/15/20 13:20 ABG Oxyhemoglobin 90.5 (94-98) L 03/06/20 04:41 ABG Carboxyhemoglobin 1.7 % (0.0-5.0) 03/15/20 13:20 ABG Methemoglobin 0.5 % (0.0-1.5) 03/15/20 13:20 ABG Sodium 135.9 mmol/L (136.0-145.0) L 03/13/20 14:23 ABG Potassium 3.8 mmol/L (3.40-4.50) 03/13/20 14:23 ABG Chloride 98.0 mmol/L (98-107) 03/13/20 14:23 ABG Glucose 89 mg/dL (65-95) 03/13/20 14:23 Oxyhemoglobin 94.9 % (95.0-99.0) L 03/15/20 13:20 Carboxyhemoglobin 1 (0.5-1.5) 03/06/20 04:41 FiO2 30 % 03/15/20 13:20 Sodium 137 mmol/L (137-145) 03/21/20 05:00 Potassium 4.0 mmol/L (3.6-5.0) 03/21/20 05:00 Chloride 94.2 mmol/L (98-107) L 03/21/20 05:00 Carbon Dioxide 27 mmol/L (22-30) 03/21/20 05:00 Anion Gap 20 mmol/L 03/21/20 05:00 BUN 23 mg/dL (7-17) H 03/21/20 05:00 Creatinine 3.6 mg/dL (0.6-1.2) H 03/21/20 05:00 Estimated GFR 17 ml/min 03/21/20 05:00 BUN/Creatinine Ratio 6 % 03/21/20 05:00 Glucose 86 mg/dL (65-100) 03/21/20 05:00 POC Glucose 81 (70-105) 03/20/20 11:58 Lactic Acid 0.90 mmol/L (0.7-2.0) 02/27/20 19:33 Calcium 9.6 mg/dL (8.4-10.2) 03/21/20 05:00 Phosphorus 6.10 mg/dL (2.5-4.5) H 03/01/20 04:37 Magnesium 2.00 mg/dL (1.7-2.3) 03/07/20 05:03 Total Bilirubin 0.30 mg/dL (0.1-1.2) 03/16/20 04:52 Direct Bilirubin 0.6 mg/dL (0-0.2) H 03/05/20 06:00 Indirect Bilirubin 0.3 mg/dL 03/05/20 06:00 AST 30 units/L (5-40) 03/16/20 04:52 ALT 14 units/L (7-56) 03/16/20 04:52 Alkaline Phosphatase 75 units/L (35-129) 03/16/20 04:52 Troponin T 0.085 ng/mL (0.00-0.029) H 03/11/20 14:31 C-Reactive Protein 36.50 mg/dL (0.00-1.30) H 03/01/20 11:06 Serum Total Protein 6.3 g/dL (6.1-8.1) 02/26/20 04:39 Total Protein 7.6 g/dL (6.3-8.2) 03/16/20 04:52 Albumin 2.7 g/dL (3.9-5) L 03/16/20 04:52 Albumin/Globulin Ratio 0.6 % 03/16/20 04:52 Krwep-4-Ukjuqmnsp 0.7 g/dL (0.2-0.3) H 02/26/20 04:39 Cseav-6-Jorlngdfr 0.8 g/dL (0.5-0.9) 02/26/20 04:39 Beta Globulins 0.4 g/dL (0.2-0.5) 02/26/20 04:39 Gamma Globulins 1.2 g/dL (0.8-1.7) 02/26/20 04:39 Abnorm Protein Band 1 see below 02/26/20 04:39 PEP Interpretation see below H 02/26/20 04:39 Triglycerides 247 mg/dL (2-149) H 03/11/20 14:31 Cholesterol 158 mg/dL (50-199) 03/11/20 14:31 LDL Cholesterol Direct 80 mg/dL (50-130) 03/11/20 14:31 HDL Cholesterol 28 mg/dL (40-59) L 03/11/20 14:31 Cholesterol/HDL Ratio 5.64 % 03/11/20 14:31 Lipase 72 units/L (13-60) H 03/04/20 19:00 HCG, Qual Negative (Negative) 02/24/20 02:53 PTH Intact 911.3 pg/mL (15-65) H 02/26/20 08:15 Arterial Blood Glucose 89 mg/dL (65-95) 03/13/20 14:23 Arterial Blood Ionized Calcium 4.5 mg/dL (4.6-5.3) L 03/13/20 14:23 Urine Color Yellow (Yellow) 02/24/20 Unknown Urine Turbidity Clear (Clear) 02/24/20 Unknown Urine pH 6.0 (5.0-7.0) 02/24/20 Unknown Ur Specific [place] 1.020 (1.003-1.030) 02/24/20 Unknown Urine Protein >500 mg/dL (Negative) 02/24/20 Unknown Urine Glucose (UA) 50 mg/dL (Negative) 02/24/20 Unknown Urine Ketones Neg mg/dL (Negative) 02/24/20 Unknown Urine Blood Lg (Negative) 02/24/20 Unknown Urine Nitrite Neg (Negative) 02/24/20 Unknown Urine Bilirubin Neg (Negative) 02/24/20 Unknown Urine Urobilinogen < 2.0 mg/dL (<2.0) 02/24/20 Unknown Ur Leukocyte Esterase Neg (Negative) 02/24/20 Unknown Urine WBC (Auto) 11.0 /HPF (0.0-6.0) H 02/24/20 Unknown Urine RBC (Auto) 149.0 /HPF (0.0-6.0) 02/24/20 Unknown U Epithel Cells (Auto) 5.0 /HPF (0-13.0) 02/24/20 Unknown Urine Bacteria (Auto) 1+ /HPF (Negative) 02/24/20 Unknown Urine Mucus Few /HPF 02/24/20 Unknown Urine Total Volume 115 ml 03/18/20 14:00 Urine Creatinine 278.4 mg/dL (0.1-20.0) H 03/18/20 14:00 Ur Creatinine 24 Hour 0.3 (0.8-2.8) L 03/18/20 14:00 Protein/Creatinin Ratio 0.93 02/25/20 22:55 Urine Total Protein 150 mg/dL (5-11.8) H 02/25/20 22:55 ZINA Screen Positive (Negative) H 02/26/20 04:39 Proteinase 3 (PR3) Ab <1.0 AI (<1.0) 02/26/20 04:39 Myeloperoxidase Ab <1.0 AI (<1.0) 02/26/20 04:39 Double Strand DNA Ab See scanned result 03/06/20 14:46 Complement C3 153 mg/dL (83-193) 02/26/20 04:39 Complement C4 35 mg/dL (15-57) 02/26/20 04:39 Coronavirus (PCR) Negative (Negative) 03/09/20 09:12 Hepatitis A IgM Ab Non-reactive (NonReactive) 03/03/20 12:34 Hep Bs Antigen Non-reactive (Negative) 03/03/20 12:34 Hep B Core IgM Ab Non-reactive (NonReactive) 03/03/20 12:34 Hepatitis C Antibody Non-reactive (NonReactive) 03/03/20 12:34 Blood Type AB POSITIVE 03/13/20 08:45 Antibody Screen Negative 03/13/20 08:45 Crossmatch See Detail 03/13/20 08:45 - Diagnostic Impressions Diagnostic Impressions: Echocardiogram 02/26/20 09:11 Transthoracic Echocardiogram Indication: Cardiomegaly BP: 149/92 HR: 122 Conclusions *Global left ventricular systolic function is normal. *The estimated ejection fraction is 60-65%. *Moderate to severe concentric left ventricular hypertrophy is observed. *The left atrium is mild to moderately dilated. *The aortic valve leaflets are moderately thickened. *A mean gradient of 22.39 mmHg across the outflow tract is likely not due to but hyperdynamic flow and LVH. *There is trace tricuspid regurgitation. Findings Left Ventricle: The left ventricular chamber size is normal. Moderate to severe concentric left ventricular hypertrophy is observed. Global left ventricular systolic function is normal. The estimated ejection fraction is 60-65%. Left Atrium: The left atrium is mild to moderately dilated. Right Ventricle: The right ventricular cavity size is normal. The right ventricular global systolic function is normal. Right Atrium: The right atrial cavity size is normal. Aortic Valve: The aortic valve leaflets are moderately thickened. There is no evidence of aortic regurgitation. The mean gradient of the aortic valve is 22.39 mmHg. Mitral Valve: The mitral valve leaflets are mildly thickened. There is trace of mitral regurgitation. There is no evidence of mitral stenosis. Tricuspid Valve: There is trace tricuspid regurgitation. No pulmonary hypertension is noted. Pulmonic Valve: There is trace pulmonic regurgitation. Pericardium: There is no pericardial effusion. Aorta: There is no dilatation of the ascending aorta. There is no dilatation of the aortic root. Venous: The inferior vena cava appears normal in size. Measurements Chambers 2D Name Value Normal Range IVSd (2D) 1.8 cm (0.6 - 1.1) LVPWd (2D) 1.74 cm (0.6 - 1.1) LVIDd (2D) 4.57 cm (3.7 - 5.6) LVIDs (2D) 2.73 cm (2 - 3.8) LV FS (2D) 40.27 % - EF Teichholz (2D) 71.04 % - Ao root diameter (2D) 2.79 cm (2 - 3.7) Volumes/Mass Name Value Normal Range LA ESV SP 4CH (A/L) 54.18 ml - LA ESV SP 2CH (A/L) 61.84 ml - LA ESV BP (A/L) 58.1 ml - LA ESV BP (A/L) index 30.74 ml/m2 - LA ESV SP 4CH (MOD) 52.89 ml - LA ESV SP 2CH (MOD) 60.65 ml - LA ESV BP (MOD) 56.77 ml - LA ESV BP (MOD) index 30.04 ml/m2 - LV EDV SP 4CH (MOD) 164.2 ml - LV ESV SP 4CH (MOD) 58.04 ml - EF SP 4CH (MOD) 64.65 % - Diastolic/Systolic Function Name Value Normal Range MV E-wave Vmax 1.38 m/sec - MV deceleration time 92.78 msec - MV A-wave Vmax 1.44 m/sec - MV E:A ratio 0.95 ratio - Aortic Valve Name Value Normal Range AV Vmax 3.08 m/sec - AV VTI 36.74 cm - AV peak gradient 37.98 mmHg - AV mean gradient 22.39 mmHg - LVOT diameter 2.01 cm - LVOT Vmax 2.45 m/sec - LVOT VTI 29.85 cm - LVOT peak gradient 24.04 mmHg - LVOT mean gradient 11.11 mmHg - SV LVOT 94.73 ml - JADA (continuity Vmax) 2.52 cm2 - JADA (continuity VTI) 2.58 cm2 - Ascending Ao 2.64 cm - Mitral Valve Name Value Normal Range MV PHT 37.88 msec - MVA (PHT) 5.81 cm2 - Tricuspid Valve Name Value Normal Range IVC diameter 1.93 cm (1.2 - 2.3) Pulmonic Valve/Qp:Qs Name Value Normal Range PV Vmax 2.83 m/sec - PV VTI 45.88 cm - PV peak gradient 32.06 mmHg - PV mean gradient 16.11 mmHg - CA end-diastolic Vmax 0.81 m/sec - RVOT Vmax 1.82 m/sec - RVOT VTI 25.12 cm - RVOT peak gradient 13.3 mmHg - Franks/IV: Voiding Method Toilet IV Catheter Type [Right VAS Cath Internal Jugular] IV Catheter Type [Left Upper INT / Saline Lock arm] IV Catheter Type [Right Upper INT / Saline Lock arm] IV Catheter Type [Right INT / Saline Lock Forearm] IV Catheter Type [Right Wrist] Peripheral IV IV Catheter Type [Right Peripheral IV Antecubital] Active Medications - Current Medications Current Medications: Generic Name Dose Route Start Last Admin Trade Name Freq PRN Reason Stop Dose Admin Acetaminophen 650 mg 02/26/20 16:23 03/14/20 22:03 Tylenol PO 650 mg Q4H PRN Administration Pain, Mild (1-3)/ Temp >100. Albuterol 2.5 mg 02/27/20 17:55 Proventil IH Q4HRT PRN Shortness Of Breath Amlodipine Besylate 10 mg 02/28/20 10:00 03/20/20 09:15 Amlodipine PO 10 mg QDAY INDU Administration Aspirin 325 mg 03/15/20 11:00 03/20/20 09:15 Aspirin PO 325 mg QDAY INDU Administration Dextrose 50 ml 02/29/20 08:00 03/01/20 00:20 D50w (25gm) Syringe IV 10 ml Q30MIN PRN Administration HYPOGLYCEMIA Protocol Epoetin Prosper 10,000 unit 03/12/20 10:00 03/20/20 16:00 Procrit IV 10,000 unit NIKOLAY PRN Administration hemodialysis Heparin Sodium (Porcine) 5,000 unit 03/11/20 14:00 03/21/20 06:49 Heparin SUB-Q 5,000 unit Q8HR INDU Administration Hydralazine HCl 50 mg 03/20/20 16:00 03/21/20 06:47 Apresoline PO 50 mg Q8HR INDU Administration Hydrophilic Ointment 1 applic 03/11/20 06:01 Vaseline Lip Therapy TP Q2HR PRN Dry Lips Sodium Chloride 100 mls @ 999 mls/hr 03/08/20 17:05 Nacl 0.9% IV NIKOLAY PRN Hypotension Labetalol HCl 10 mg 02/28/20 09:00 03/11/20 03:04 Labetalol IV 10 mg Q4H PRN Administration Hypertension Metoprolol Tartrate 25 mg 02/28/20 10:00 03/20/20 21:21 Metoprolol PO 25 mg BID INDU Administration Morphine Sulfate 2 mg 03/11/20 05:13 03/20/20 21:22 Morphine IV 2 mg Q4H PRN Administration Pain, Moderate (4-6) Multi-Ingred Cream/Lotion/Oil/Oint 1 applic 03/11/20 06:01 Artificial Tears Ophth Oint OU Q4HR PRN Dry Eye(s) Nitroglycerin 0.4 mg 03/11/20 05:14 Nitrostat SL .Q5MIN PRN Chest Pain Ondansetron HCl 4 mg 02/24/20 06:45 02/25/20 23:33 Zofran IV 4 mg Q8H PRN Administration Nausea And Vomiting Pantoprazole Sodium 40 mg 03/16/20 11:00 03/20/20 09:16 Protonix PO 40 mg QDAC INDU Administration Quetiapine Fumarate 100 mg 03/16/20 22:00 03/20/20 21:21 Seroquel PO 100 mg QHS INDU Administration Sodium Chloride 10 ml 02/24/20 10:00 03/20/20 21:22 Sodium Chloride Flush Syringe 10 Ml IV 10 ml BID INDU Administration Sodium Chloride 10 ml 02/24/20 06:45 03/10/20 09:06 Sodium Chloride Flush Syringe 10 Ml IV 10 ml PRN PRN Administration LINE FLUSH Nutrition/Malnutrition Assess - Dietary Evaluation Nutrition/Malnutrition Findings: Nutrition Notes Start: 02/24/20 13:42 Freq: Status: Active Protocol: Document 03/19/20 11:48 BRANDI (Rec: 03/19/20 12:04 BRANDI [id number]) Co-Sign 03/19/20 11:48 MK Nutrition Notes Need for Assessment generated from: Education Initial or Follow up Reassessment Current Diagnosis Acute Kidney Injury,CKD (stage V CKD),Sepsis,Hypertension, Respiratory Failure, Hyperlipidemia Other Pertinent Diagnosis HD, acute pancreatitis Current Diet Renal Labs/Tests BUN 28 Cr 3.5 BG 80 Pertinent Medications Reviewed Height 5 ft 1 in Weight 91 kg [place] Body Weight (kg) 47.72 BMI 37.9 Weight Status Obese Subjective/Other Information F/u intakes. Pt reported eating mostly fruit from tray and drinking juices. Wants sandwiches. Not receiving ONS. Discussed the importance of protein with HD, a healthy renal diet, and encouraged her to f/u with out-patient HD RD . Noted MD signed off on pancreatitis. Percent of energy/protein needs met: 25%/0% Burn Absent Trauma Absent GI Symptoms None Current % PO Negligible Minimum of two criteria No Fluid Accumulation Moderate to Severe (severe) #2 Nutrition Diagnosis Inadequate oral intake As Evidenced by Signs and Symptoms pt mostly drinking fluids and eating fruit. Diagnosis Progress(for reassessment Continues documentation) #1 Nutrition Diagnosis Food and nutrition-related knowledge deficit As Evidenced by Signs and Symptoms Pt had questions about the HD diet. Diagnosis Progress(for reassessment Resolved documentation) Is patient on ventilator? Yes Is Patient Ambulatory and/or Out of Bed No REE-([facility]eks-confined to bed) [phone] Calculation Used for Recommendations [facility] Additional Notes Pro: 83-104g (1.2-1.5g/kg AdBW 69kg) Fluid: 1ml/kcal Nutrition Intervention Change Diet Order: Continue renal diet d/c mechanical soft Add Supplement/Snack (indicate name/kcal Nepro daily /protein ) Provides kCal: 425 Provides Protein (gm) 19 Teaching Recipient Patient Learning Readiness Good Teaching Methods Discussion,Handout Response to Teaching Verbalize understanding Education Handouts Provided Renal MyPlate Barriers to Learning No Barriers RD phone number provided Yes Patient aware of follow up options Yes Goal #1 Meet at least 75% of energy and protein needs. Anticipated Discharge Needs: Renal diet Follow-Up By: 03/24/20 Additional Comments F/u intakes, ONS acceptance, and dry wt
[2020-03-21] MEDS: ASPIRIN 325 MG TAB PO SCH (10:53)
[2020-03-21] MEDS: METOPROLOL TARTRATE 25 MG TAB PO SCH ×2 (10:53→21:21)
[2020-03-21] MEDS: amLODIPine 10 MG TAB PO SCH (10:53)
[2020-03-21] MEDS: PANTOPRAZOLE 40 MG TAB PO SCH (10:53)
--- NOTE | 2020-03-21 12:00 | Progress Note ---
Assessment and Plan Assessment * ESRD --Serologies: ANCA, C3, C4 - negative; ZINA positive * Acute hypoxic respiratory failure * Chest pain --Elevated troponin * Metabolic acidosis * Acute severe pancreatitis * Fever * Accelerated hypertension - resolved * Anemia Plan: * Continue HD MWF schedule for now- UF as tolerated * Monitor SCr trend and UOP for evidence of recovery - Uncertain re: renal prognosis. Patient reports 9 year hx of hypertension, untreated at times. She reports that she was not under the consistent care of a healthcare provider. * Cardiology recommendations reviewed - conservative cardiac management for now * GI recommendations reviewed * Continue antiHTN medications * Abx per ID * Hold ACEi for now * Epogen TIW prn * Dose medications for renal function * Avoid potential nephrotoxins * follow up 24hr crcl noted, will need perm cath and HD unit placement Subjective Date of service: 03/21/20 Principal diagnosis: HTNsive urgency; Morbid obesity; Ac. pancreatitis; Abdominal pain Interval history: resting in bed today Objective - Exam Narrative Exam: General appearance: well-developed, well-nourished EENT: ATNC Respiratory: Present: Clear to Ascultation Cardiology: regular, S1S2 Gastrointestinal: normal, no tenderness, distended Integumentary: no rash, warm and dry Musculoskeletal: other (no edema) Psychiatric: cooperative - Vital Signs Vital signs: Vital Signs - 12hr 03/21/20 03/21/20 03/21/20 00:10 02:24 04:45 Temperature 99.8 F H 99.8 F H Pulse Rate 93 H 89 96 H Respiratory 18 18 Rate Blood Pressure 141/83 148/92 O2 Sat by Pulse 93 96 Oximetry 03/21/20 03/21/20 06:47 07:36 Temperature 99.5 F Pulse Rate 96 H 97 H Respiratory 18 Rate Blood Pressure 148/92 153/89 O2 Sat by Pulse 97 Oximetry - Lab 03/19/20 05:55 03/21/20 05:00 Most recent lab results ABG pH 7.420 pH Units (7.350-7.450) 03/15/20 13:20 ABG pCO2 45.5 mm Hg 03/15/20 13:20 ABG pO2 85.8 mm Hg (80.0-90.0) 03/15/20 13:20 ABG HCO3 28.9 mmol/L (20.0-26.0) H 03/15/20 13:20 ABG O2 Saturation 97.1 % (95.0-99.0) 03/15/20 13:20 Calcium 9.6 mg/dL (8.4-10.2) 03/21/20 05:00 Phosphorus 6.10 mg/dL (2.5-4.5) H 03/01/20 04:37 Magnesium 2.00 mg/dL (1.7-2.3) 03/07/20 05:03 Urine Creatinine 278.4 mg/dL (0.1-20.0) H 03/18/20 14:00 Urine Total Protein 150 mg/dL (5-11.8) H 02/25/20 22:55 Medications & Allergies - Medications Allergies/Adverse Reactions: Allergies No Known Allergies Allergy (Unverified 09/05/19 10:15) Home Medications: Home Medications Medication Instructions Recorded Confirmed Last Taken Type Amlodipine Besylate [Norvasc] 10 mg PO DAILY 09/05/19 02/24/20 09/04/19 History Furosemide [Lasix] 20 mg PO QDAY #30 tablet 09/05/19 02/24/20 Unknown Rx Lisinopril [Zestril] 5 mg PO DAILY #30 tablet 09/05/19 02/24/20 Unknown Rx Metoprolol [Lopressor TAB] 25 mg PO BID #60 tablet 09/05/19 02/24/20 Unknown Rx Active Medications: Generic Name Dose Route Start Last Admin Trade Name Freq PRN Reason Stop Dose Admin Acetaminophen 650 mg 02/26/20 16:23 03/14/20 22:03 Tylenol PO 650 mg Q4H PRN Administration Pain, Mild (1-3)/ Temp >100. Albuterol 2.5 mg 02/27/20 17:55 Proventil IH Q4HRT PRN Shortness Of Breath Amlodipine Besylate 10 mg 02/28/20 10:00 03/21/20 10:53 Amlodipine PO 10 mg QDAY INDU Administration Aspirin 325 mg 03/15/20 11:00 03/21/20 10:53 Aspirin PO 325 mg QDAY INDU Administration Dextrose 50 ml 02/29/20 08:00 03/01/20 00:20 D50w (25gm) Syringe IV 10 ml Q30MIN PRN Administration HYPOGLYCEMIA Protocol Epoetin Prosper 10,000 unit 03/12/20 10:00 03/20/20 16:00 Procrit IV 10,000 unit NIKOLAY PRN Administration hemodialysis Heparin Sodium (Porcine) 5,000 unit 03/11/20 14:00 03/21/20 06:49 Heparin SUB-Q 5,000 unit Q8HR INDU Administration Hydralazine HCl 50 mg 03/20/20 16:00 03/21/20 06:47 Apresoline PO 50 mg Q8HR INDU Administration Hydrophilic Ointment 1 applic 03/11/20 06:01 Vaseline Lip Therapy TP Q2HR PRN Dry Lips Sodium Chloride 100 mls @ 999 mls/hr 03/08/20 17:05 Nacl 0.9% IV NIKOLAY PRN Hypotension Labetalol HCl 10 mg 02/28/20 09:00 03/11/20 03:04 Labetalol IV 10 mg Q4H PRN Administration Hypertension Metoprolol Tartrate 25 mg 02/28/20 10:00 03/21/20 10:53 Metoprolol PO 25 mg BID INDU Administration Morphine Sulfate 2 mg 03/11/20 05:13 03/20/20 21:22 Morphine IV 2 mg Q4H PRN Administration Pain, Moderate (4-6) Multi-Ingred Cream/Lotion/Oil/Oint 1 applic 03/11/20 06:01 Artificial Tears Ophth Oint OU Q4HR PRN Dry Eye(s) Nitroglycerin 0.4 mg 03/11/20 05:14 Nitrostat SL .Q5MIN PRN Chest Pain Ondansetron HCl 4 mg 02/24/20 06:45 02/25/20 23:33 Zofran IV 4 mg Q8H PRN Administration Nausea And Vomiting Pantoprazole Sodium 40 mg 03/16/20 11:00 03/21/20 10:53 Protonix PO 40 mg QDAC INDU Administration Quetiapine Fumarate 100 mg 03/16/20 22:00 03/20/20 21:21 Seroquel PO 100 mg QHS INDU Administration Sodium Chloride 10 ml 02/24/20 10:00 03/21/20 10:53 Sodium Chloride Flush Syringe 10 Ml IV 10 ml BID INDU Administration Sodium Chloride 10 ml 02/24/20 06:45 03/10/20 09:06 Sodium Chloride Flush Syringe 10 Ml IV 10 ml PRN PRN Administration LINE FLUSH
--- NOTE | 2020-03-21 12:59 | Event Note ---
Date: 03/21/20 Noted request for PermCath. Tentatively made patient n.p.o. after midnight on Monday for PermCath placement. If this is not possible due to time constraints in the [facility], will need to place PermCath on Monday.
[2020-03-21] MEDS: QUEtiapine 100 MG TAB PO SCH (21:21)
--- NOTE | 2020-03-21 21:24 | Progress Note ---
Assessment and Plan Patient awake. On room air. O2 saturation 99%. No complaint of chest pain, shortness of breath or cough. Patient admitted for pancreatitis. Patient initially complained dyspnea. No dyspnea now. Patient afebrile. Has leukocytosis. - Patient Problems (1) Dyspnea Current Visit: Yes Status: Acute Plan to address problem: Improved. No complaint of dyspnea to day. O2 saturation 99% on room air. (2) Acute pancreatitis Current Visit: Yes Status: Acute Plan to address problem: Management as per primary care. (3) Hypertensive urgency Current Visit: Yes Status: Acute Plan to address problem: Management as per primary care. Subjective Date of service: 03/21/20 Principal diagnosis: HTNsive urgency; Morbid obesity; Ac. pancreatitis; Abdominal pain Interval history: Patient awake. On room air. O2 saturation 99%. No complaint of chest pain, shortness of breath or cough. Patient admitted for pancreatitis. Patient initially complained dyspnea. No dyspnea now. Patient afebrile. Has leukocytosis. Objective Vital Signs - 12hr 03/21/20 03/21/20 03/21/20 10:00 11:12 15:31 Temperature 99.4 F 98.7 F Pulse Rate 97 H 97 H 90 Respiratory 18 18 Rate Blood Pressure 150/96 153/85 O2 Sat by Pulse 98 95 Oximetry 03/21/20 19:39 Temperature 99.5 F Pulse Rate 96 H Respiratory 18 Rate Blood Pressure 151/101 O2 Sat by Pulse 99 Oximetry Constitutional: no acute distress, alert Eyes: non-icteric ENT: oropharynx moist, other (Right IJ trialysis catheter) Neck: supple, no lymphadenopathy, no JVD, other (RIJ HD catheter) Effort: normal Ascultation: Bilateral: diminished breath sounds (at the bases) Percussion: Bilateral: not dull Cardiovascular: regular rate and rhythm, other (S1,S2) Gastrointestinal: normoactive bowel sounds, hypoactive bowel sounds, soft, non- tender, non-distended Integumentary: normal Extremities: no cyanosis, no edema, pink and warm, pulses normal Neurologic: normal mental status, non-focal exam, pupils equal and round, CN II- XII normal, motor strength normal and Psychiatric: tearful CBC and BMP: 03/19/20 05:55 03/21/20 05:00 ABG, PT/INR, D-dimer: ABG ABG pH 7.420 pH Units (7.350-7.450) 03/15/20 13:20 POC ABG pCO2 40.5 mmHg (32.0-48.0) 03/13/20 14:23 ABG pCO2 45.5 mm Hg 03/15/20 13:20 POC ABG pO2 75.1 mmHg (83-108) L 03/13/20 14:23 ABG pO2 85.8 mm Hg (80.0-90.0) 03/15/20 13:20 POC ABG HCO3 28.3 03/13/20 14:23 ABG O2 Saturation 97.1 % (95.0-99.0) 03/15/20 13:20 PT/INR, D-dimer PT 14.1 Sec. (12.2-14.9) 03/11/20 07:31 INR 1.07 (0.87-1.13) 03/11/20 07:31 Abnormal lab findings: Abnormal Labs 02/24/20 02/24/20 02/24/20 02:53 02:53 Unknown WBC 12.7 H Hgb 10.0 L RBC Hct MCV 70 L MCH 22 L RDW 17.9 H Plt Count 458 H Lymph % (Auto) 8.9 L Lymph # 1.1 L [place] % (Auto) [place] # Eos % (Auto) Lymph # (Auto) [place] # (Auto) Eos # (Auto) Seg Neutrophils % 84.2 H Baso # (Auto) Seg Neutrophils # 10.7 H Seg Neuts % (Manual) Lymphocytes % (Manual) Monocytes % (Manual) Nucleated RBC % Seg Neutrophils # Man Lymphocytes # (Manual) Monocytes # (Manual) Eosinophils # (Manual) Basophils # (Manual) ABG pH POC ABG pCO2 POC ABG pO2 ABG pO2 ABG HCO3 ABG O2 Saturation ABG Base Excess ABG Hemoglobin ABG Oxyhemoglobin ABG Sodium ABG Glucose Oxyhemoglobin Sodium Potassium Chloride Carbon Dioxide BUN 27 H Creatinine 1.7 H Glucose 118 H POC Glucose Calcium Phosphorus Magnesium Direct Bilirubin AST Alkaline Phosphatase Albumin Troponin T C-Reactive Protein Sfssi-5-Iiqfimduy PEP Interpretation Triglycerides Lipase 232 H HDL Cholesterol PTH Intact Arterial Blood Glucose Arterial Blood Ionized Calcium Urine WBC (Auto) 11.0 H Urine Creatinine Ur Creatinine 24 Hour Urine Total Protein ZINA Screen Crossmatch 02/25/20 02/25/20 02/25/20 00:03 03:49 03:49 WBC 29.1 H Hgb 9.4 L RBC Hct 30.2 L MCV 71 L MCH 22 L RDW 18.3 H Plt Count 525 H Lymph % (Auto) 3.4 L Lymph # 1.0 L [place] % (Auto) [place] # 1.0 H Eos % (Auto) Lymph # (Auto) [place] # (Auto) Eos # (Auto) Seg Neutrophils % Baso # (Auto) Seg Neutrophils # 26.4 H Seg Neuts % (Manual) Lymphocytes % (Manual) Monocytes % (Manual) Nucleated RBC % Seg Neutrophils # Man Lymphocytes # (Manual) Monocytes # (Manual) Eosinophils # (Manual) Basophils # (Manual) ABG pH POC ABG pCO2 POC ABG pO2 ABG pO2 ABG HCO3 ABG O2 Saturation ABG Base Excess ABG Hemoglobin ABG Oxyhemoglobin ABG Sodium ABG Glucose Oxyhemoglobin Sodium Potassium Chloride Carbon Dioxide BUN Creatinine Glucose POC Glucose 126 H Calcium Phosphorus Magnesium Direct Bilirubin AST Alkaline Phosphatase Albumin Troponin T C-Reactive Protein Quwqe-0-Mwfulunzj PEP Interpretation Triglycerides Lipase 1486 H HDL Cholesterol PTH Intact Arterial Blood Glucose Arterial Blood Ionized Calcium Urine WBC (Auto) Urine Creatinine Ur Creatinine 24 Hour Urine Total Protein ZINA Screen Crossmatch 02/25/20 02/25/20 02/25/20 03:49 05:55 22:55 WBC Hgb RBC Hct MCV MCH RDW Plt Count Lymph % (Auto) Lymph # [place] % (Auto) [place] # Eos % (Auto) Lymph # (Auto) [place] # (Auto) Eos # (Auto) Seg Neutrophils % Baso # (Auto) Seg Neutrophils # Seg Neuts % (Manual) Lymphocytes % (Manual) Monocytes % (Manual) Nucleated RBC % Seg Neutrophils # Man Lymphocytes # (Manual) Monocytes # (Manual) Eosinophils # (Manual) Basophils # (Manual) ABG pH POC ABG pCO2 POC ABG pO2 ABG pO2 ABG HCO3 ABG O2 Saturation ABG Base Excess ABG Hemoglobin ABG Oxyhemoglobin ABG Sodium ABG Glucose Oxyhemoglobin Sodium 136 L Potassium Chloride 97.9 L Carbon Dioxide 21 L BUN 39 H Creatinine 3.0 H D Glucose 118 H POC Glucose 124 H Calcium Phosphorus Magnesium Direct Bilirubin AST Alkaline Phosphatase Albumin 3.6 L Troponin T C-Reactive Protein Alfcl-6-Loswbgemv PEP Interpretation Triglycerides Lipase HDL Cholesterol PTH Intact Arterial Blood Glucose Arterial Blood Ionized Calcium Urine WBC (Auto) Urine Creatinine 161.0 H Ur Creatinine 24 Hour Urine Total Protein 150 H ZINA Screen Crossmatch 02/26/20 02/26/20 02/26/20 04:39 04:39 04:39 WBC 30.3 H Hgb 9.1 L RBC Hct 29.8 L MCV 71 L MCH 22 L RDW 18.2 H Plt Count 530 H Lymph % (Auto) Lymph # [place] % (Auto) [place] # Eos % (Auto) Lymph # (Auto) [place] # (Auto) Eos # (Auto) Seg Neutrophils % Baso # (Auto) Seg Neutrophils # Seg Neuts % (Manual) Lymphocytes % (Manual) Monocytes % (Manual) Nucleated RBC % Seg Neutrophils # Man Lymphocytes # (Manual) Monocytes # (Manual) Eosinophils # (Manual) Basophils # (Manual) ABG pH POC ABG pCO2 POC ABG pO2 ABG pO2 ABG HCO3 ABG O2 Saturation ABG Base Excess ABG Hemoglobin ABG Oxyhemoglobin ABG Sodium ABG Glucose Oxyhemoglobin Sodium Potassium Chloride Carbon Dioxide 19 L BUN 44 H Creatinine 3.1 H Glucose 106 H POC Glucose Calcium 8.1 L Phosphorus Magnesium Direct Bilirubin AST Alkaline Phosphatase Albumin Troponin T C-Reactive Protein Wtlca-3-Utmvvhhab PEP Interpretation Triglycerides Lipase 540 H HDL Cholesterol PTH Intact Arterial Blood Glucose Arterial Blood Ionized Calcium Urine WBC (Auto) Urine Creatinine Ur Creatinine 24 Hour Urine Total Protein ZINA Screen Positive H Crossmatch 02/26/20 02/26/20 02/26/20 04:39 08:15 12:14 WBC Hgb RBC Hct MCV MCH RDW Plt Count Lymph % (Auto) Lymph # [place] % (Auto) [place] # Eos % (Auto) Lymph # (Auto) [place] # (Auto) Eos # (Auto) Seg Neutrophils % Baso # (Auto) Seg Neutrophils # Seg Neuts % (Manual) Lymphocytes % (Manual) Monocytes % (Manual) Nucleated RBC % Seg Neutrophils # Man Lymphocytes # (Manual) Monocytes # (Manual) Eosinophils # (Manual) Basophils # (Manual) ABG pH POC ABG pCO2 POC ABG pO2 ABG pO2 ABG HCO3 ABG O2 Saturation ABG Base Excess ABG Hemoglobin ABG Oxyhemoglobin ABG Sodium ABG Glucose Oxyhemoglobin Sodium Potassium Chloride Carbon Dioxide BUN Creatinine Glucose POC Glucose 112 H Calcium Phosphorus Magnesium Direct Bilirubin AST Alkaline Phosphatase Albumin 2.8 L Troponin T C-Reactive Protein Jodlb-0-Ilxanifyr 0.7 H PEP Interpretation see below H Triglycerides Lipase HDL Cholesterol PTH Intact 911.3 H Arterial Blood Glucose Arterial Blood Ionized Calcium Urine WBC (Auto) Urine Creatinine Ur Creatinine 24 Hour Urine Total Protein ZINA Screen Crossmatch 02/27/20 02/27/20 02/27/20 04:18 04:18 04:18 WBC 26.8 H Hgb 7.9 L RBC Hct 26.3 L MCV 70 L MCH 21 L RDW 18.0 H Plt Count 513 H Lymph % (Auto) Lymph # [place] % (Auto) [place] # Eos % (Auto) Lymph # (Auto) [place] # (Auto) Eos # (Auto) Seg Neutrophils % Baso # (Auto) Seg Neutrophils # Seg Neuts % (Manual) Lymphocytes % (Manual) Monocytes % (Manual) Nucleated RBC % Seg Neutrophils # Man Lymphocytes # (Manual) Monocytes # (Manual) Eosinophils # (Manual) Basophils # (Manual) ABG pH POC ABG pCO2 POC ABG pO2 ABG pO2 ABG HCO3 ABG O2 Saturation ABG Base Excess ABG Hemoglobin ABG Oxyhemoglobin ABG Sodium ABG Glucose Oxyhemoglobin Sodium 135 L 135 L Potassium Chloride Carbon Dioxide 15 L 16 L BUN 50 H 51 H Creatinine 3.4 H 3.4 H Glucose POC Glucose Calcium 7.4 L 7.5 L Phosphorus Magnesium Direct Bilirubin AST Alkaline Phosphatase Albumin 3.0 L Troponin T C-Reactive Protein 37.30 H Ivsnh-4-Wukdbqxii PEP Interpretation Triglycerides Lipase 177 H HDL Cholesterol PTH Intact Arterial Blood Glucose Arterial Blood Ionized Calcium Urine WBC (Auto) Urine Creatinine Ur Creatinine 24 Hour Urine Total Protein ZINA Screen Crossmatch 02/27/20 02/28/20 02/28/20 16:57 05:07 05:07 WBC Hgb RBC Hct MCV MCH RDW Plt Count Lymph % (Auto) Lymph # [place] % (Auto) [place] # Eos % (Auto) Lymph # (Auto) [place] # (Auto) Eos # (Auto) Seg Neutrophils % Baso # (Auto) Seg Neutrophils # Seg Neuts % (Manual) Lymphocytes % (Manual) Monocytes % (Manual) Nucleated RBC % Seg Neutrophils # Man Lymphocytes # (Manual) Monocytes # (Manual) Eosinophils # (Manual) Basophils # (Manual) ABG pH 7.336 L POC ABG pCO2 POC ABG pO2 ABG pO2 57.0 L ABG HCO3 16.4 L ABG O2 Saturation 88.2 L ABG Base Excess -8.4 L ABG Hemoglobin 10.4 L ABG Oxyhemoglobin ABG Sodium ABG Glucose Oxyhemoglobin 85.7 L Sodium Potassium Chloride Carbon Dioxide 14 L BUN 60 H Creatinine 4.2 H Glucose POC Glucose Calcium 8.2 L Phosphorus Magnesium Direct Bilirubin AST Alkaline Phosphatase Albumin Troponin T C-Reactive Protein Ytnay-4-Rvwgbtxhr PEP Interpretation Triglycerides Lipase 155 H HDL Cholesterol PTH Intact Arterial Blood Glucose Arterial Blood Ionized Calcium Urine WBC (Auto) Urine Creatinine Ur Creatinine 24 Hour Urine Total Protein ZINA Screen Crossmatch 02/28/20 02/28/20 02/28/20 05:56 11:05 11:05 WBC Hgb RBC Hct MCV MCH RDW Plt Count Lymph % (Auto) Lymph # [place] % (Auto) [place] # Eos % (Auto) Lymph # (Auto) [place] # (Auto) Eos # (Auto) Seg Neutrophils % Baso # (Auto) Seg Neutrophils # Seg Neuts % (Manual) Lymphocytes % (Manual) Monocytes % (Manual) Nucleated RBC % Seg Neutrophils # Man Lymphocytes # (Manual) Monocytes # (Manual) Eosinophils # (Manual) Basophils # (Manual) ABG pH 7.317 L POC ABG pCO2 POC ABG pO2 76.2 L ABG pO2 ABG HCO3 16.4 L ABG O2 Saturation ABG Base Excess -8.9 L ABG Hemoglobin 6.6 L 7.6 L ABG Oxyhemoglobin ABG Sodium ABG Glucose Oxyhemoglobin 94.6 L Sodium Potassium Chloride Carbon Dioxide BUN Creatinine Glucose POC Glucose 115 H Calcium Phosphorus Magnesium Direct Bilirubin AST Alkaline Phosphatase Albumin Troponin T C-Reactive Protein Ekjuv-8-Fcjpamxfm PEP Interpretation Triglycerides Lipase HDL Cholesterol PTH Intact Arterial Blood Glucose Arterial Blood Ionized Calcium Urine WBC (Auto) Urine Creatinine Ur Creatinine 24 Hour Urine Total Protein ZINA Screen Crossmatch 02/28/20 02/28/20 02/29/20 17:39 19:39 05:43 WBC Hgb RBC Hct MCV MCH RDW Plt Count Lymph % (Auto) Lymph # [place] % (Auto) [place] # Eos % (Auto) Lymph # (Auto) [place] # (Auto) Eos # (Auto) Seg Neutrophils % Baso # (Auto) Seg Neutrophils # Seg Neuts % (Manual) Lymphocytes % (Manual) Monocytes % (Manual) Nucleated RBC % Seg Neutrophils # Man Lymphocytes # (Manual) Monocytes # (Manual) Eosinophils # (Manual) Basophils # (Manual) ABG pH 7.300 L POC ABG pCO2 POC ABG pO2 ABG pO2 117.5 H ABG HCO3 15.0 L ABG O2 Saturation ABG Base Excess -10.5 L ABG Hemoglobin 6.4 L ABG Oxyhemoglobin ABG Sodium ABG Glucose Oxyhemoglobin Sodium Potassium Chloride Carbon Dioxide BUN Creatinine Glucose POC Glucose 120 H 66 L Calcium Phosphorus Magnesium Direct Bilirubin AST Alkaline Phosphatase Albumin Troponin T C-Reactive Protein Hbjgs-6-Ifrltqeso PEP Interpretation Triglycerides Lipase HDL Cholesterol PTH Intact Arterial Blood Glucose Arterial Blood Ionized Calcium Urine WBC (Auto) Urine Creatinine Ur Creatinine 24 Hour Urine Total Protein ZINA Screen Crossmatch 02/29/20 02/29/20 02/29/20 05:45 12:04 12:31 WBC Hgb RBC Hct MCV MCH RDW Plt Count Lymph % (Auto) Lymph # [place] % (Auto) [place] # Eos % (Auto) Lymph # (Auto) [place] # (Auto) Eos # (Auto) Seg Neutrophils % Baso # (Auto) Seg Neutrophils # Seg Neuts % (Manual) Lymphocytes % (Manual) Monocytes % (Manual) Nucleated RBC % Seg Neutrophils # Man Lymphocytes # (Manual) Monocytes # (Manual) Eosinophils # (Manual) Basophils # (Manual) ABG pH 7.212 L POC ABG pCO2 POC ABG pO2 ABG pO2 ABG HCO3 ABG O2 Saturation ABG Base Excess ABG Hemoglobin 7.4 L ABG Oxyhemoglobin ABG Sodium ABG Glucose Oxyhemoglobin Sodium Potassium Chloride Carbon Dioxide BUN Creatinine Glucose POC Glucose 65 L 64 L Calcium Phosphorus Magnesium Direct Bilirubin AST Alkaline Phosphatase Albumin Troponin T C-Reactive Protein Dggvc-3-Wlgblavgv PEP Interpretation Triglycerides Lipase HDL Cholesterol PTH Intact Arterial Blood Glucose Arterial Blood Ionized Calcium Urine WBC (Auto) Urine Creatinine Ur Creatinine 24 Hour Urine Total Protein ZINA Screen Crossmatch 02/29/20 02/29/20 02/29/20 14:22 14:22 18:20 WBC Hgb RBC Hct MCV MCH RDW Plt Count Lymph % (Auto) Lymph # [place] % (Auto) [place] # Eos % (Auto) Lymph # (Auto) [place] # (Auto) Eos # (Auto) Seg Neutrophils % Baso # (Auto) Seg Neutrophils # Seg Neuts % (Manual) Lymphocytes % (Manual) Monocytes % (Manual) Nucleated RBC % Seg Neutrophils # Man Lymphocytes # (Manual) Monocytes # (Manual) Eosinophils # (Manual) Basophils # (Manual) ABG pH POC ABG pCO2 POC ABG pO2 ABG pO2 ABG HCO3 ABG O2 Saturation ABG Base Excess ABG Hemoglobin ABG Oxyhemoglobin ABG Sodium ABG Glucose Oxyhemoglobin Sodium Potassium Chloride Carbon Dioxide 16 L BUN 77 H Creatinine 4.7 H Glucose POC Glucose 66 L Calcium Phosphorus 7.50 H Magnesium 2.60 H Direct Bilirubin AST Alkaline Phosphatase Albumin 2.3 L Troponin T C-Reactive Protein Tmhat-8-Kigtwuufv PEP Interpretation Triglycerides Lipase HDL Cholesterol PTH Intact Arterial Blood Glucose Arterial Blood Ionized Calcium Urine WBC (Auto) Urine Creatinine Ur Creatinine 24 Hour Urine Total Protein ZINA Screen Crossmatch 02/29/20 03/01/20 03/01/20 18:24 04:05 04:37 WBC Hgb RBC Hct MCV MCH RDW Plt Count Lymph % (Auto) Lymph # [place] % (Auto) [place] # Eos % (Auto) Lymph # (Auto) [place] # (Auto) Eos # (Auto) Seg Neutrophils % Baso # (Auto) Seg Neutrophils # Seg Neuts % (Manual) Lymphocytes % (Manual) Monocytes % (Manual) Nucleated RBC % Seg Neutrophils # Man Lymphocytes # (Manual) Monocytes # (Manual) Eosinophils # (Manual) Basophils # (Manual) ABG pH 7.271 L 7.347 L POC ABG pCO2 POC ABG pO2 ABG pO2 133.5 H ABG HCO3 15.8 L ABG O2 Saturation ABG Base Excess -8.9 L ABG Hemoglobin 7.2 L 7.6 L ABG Oxyhemoglobin 93.4 L ABG Sodium ABG Glucose Oxyhemoglobin Sodium Potassium Chloride 107.6 H Carbon Dioxide 14 L BUN 83 H Creatinine 5.6 H Glucose POC Glucose Calcium Phosphorus 6.10 H Magnesium 2.40 H Direct Bilirubin AST Alkaline Phosphatase Albumin Troponin T C-Reactive Protein Pkhdq-4-Uqzkzdkam PEP Interpretation Triglycerides Lipase HDL Cholesterol PTH Intact Arterial Blood Glucose Arterial Blood Ionized Calcium Urine WBC (Auto) Urine Creatinine Ur Creatinine 24 Hour Urine Total Protein ZINA Screen Crossmatch 03/01/20 03/01/20 03/01/20 11:06 16:22 18:12 WBC 30.5 H Hgb 6.2 L RBC 2.92 L Hct 20.8 L MCV 71 L MCH 21 L RDW 18.2 H Plt Count 560 H Lymph % (Auto) Lymph # [place] % (Auto) [place] # Eos % (Auto) Lymph # (Auto) [place] # (Auto) Eos # (Auto) Seg Neutrophils % Baso # (Auto) Seg Neutrophils # Seg Neuts % (Manual) 79.0 H Lymphocytes % (Manual) 3.0 L Monocytes % (Manual) Nucleated RBC % Seg Neutrophils # Man 24.1 H Lymphocytes # (Manual) 0.9 L Monocytes # (Manual) 2.1 H Eosinophils # (Manual) Basophils # (Manual) ABG pH POC ABG pCO2 POC ABG pO2 ABG pO2 ABG HCO3 ABG O2 Saturation ABG Base Excess ABG Hemoglobin ABG Oxyhemoglobin ABG Sodium ABG Glucose Oxyhemoglobin Sodium Potassium 5.3 H D Chloride Carbon Dioxide 11 L BUN 77 H Creatinine 5.0 H Glucose 54 L POC Glucose 121 H Calcium Phosphorus Magnesium Direct Bilirubin AST Alkaline Phosphatase Albumin 3.0 L Troponin T C-Reactive Protein 36.50 H Kpysc-7-Pbxpamavp PEP Interpretation Triglycerides Lipase HDL Cholesterol PTH Intact Arterial Blood Glucose Arterial Blood Ionized Calcium Urine WBC (Auto) Urine Creatinine Ur Creatinine 24 Hour Urine Total Protein ZINA Screen Crossmatch 03/01/20 03/01/20 03/01/20 18:30 23:37 Unknown WBC Hgb RBC Hct MCV MCH RDW Plt Count Lymph % (Auto) Lymph # [place] % (Auto) [place] # Eos % (Auto) Lymph # (Auto) [place] # (Auto) Eos # (Auto) Seg Neutrophils % Baso # (Auto) Seg Neutrophils # Seg Neuts % (Manual) Lymphocytes % (Manual) Monocytes % (Manual) Nucleated RBC % Seg Neutrophils # Man Lymphocytes # (Manual) Monocytes # (Manual) Eosinophils # (Manual) Basophils # (Manual) ABG pH POC ABG pCO2 POC ABG pO2 ABG pO2 ABG HCO3 ABG O2 Saturation ABG Base Excess ABG Hemoglobin ABG Oxyhemoglobin ABG Sodium ABG Glucose Oxyhemoglobin Sodium Potassium Chloride Carbon Dioxide BUN Creatinine Glucose POC Glucose 125 H Calcium Phosphorus Magnesium Direct Bilirubin AST Alkaline Phosphatase Albumin Troponin T C-Reactive Protein Dfmdk-7-Amchvxgtm PEP Interpretation Triglycerides Lipase 297 H HDL Cholesterol PTH Intact Arterial Blood Glucose Arterial Blood Ionized Calcium Urine WBC (Auto) Urine Creatinine Ur Creatinine 24 Hour Urine Total Protein ZINA Screen Crossmatch See Detail 03/02/20 03/02/20 03/02/20 04:00 05:36 05:36 WBC 26.0 H Hgb 7.8 L RBC 3.26 L Hct 24.2 L MCV 74 L MCH 24 L RDW 21.3 H Plt Count 508 H Lymph % (Auto) Lymph # [place] % (Auto) [place] # Eos % (Auto) Lymph # (Auto) [place] # (Auto) Eos # (Auto) Seg Neutrophils % Baso # (Auto) Seg Neutrophils # Seg Neuts % (Manual) 86.0 H Lymphocytes % (Manual) 4.0 L Monocytes % (Manual) Nucleated RBC % 2.0 H Seg Neutrophils # Man 22.4 H Lymphocytes # (Manual) 1.0 L Monocytes # (Manual) Eosinophils # (Manual) Basophils # (Manual) ABG pH POC ABG pCO2 27.8 L POC ABG pO2 ABG pO2 ABG HCO3 ABG O2 Saturation ABG Base Excess ABG Hemoglobin 8 L ABG Oxyhemoglobin ABG Sodium ABG Glucose Oxyhemoglobin Sodium Potassium Chloride Carbon Dioxide 17 L BUN 85 H Creatinine 5.6 H Glucose 109 H POC Glucose Calcium Phosphorus Magnesium 2.50 H Direct Bilirubin AST Alkaline Phosphatase Albumin 2.3 L Troponin T C-Reactive Protein Tkrfb-6-Dqflivjyd PEP Interpretation Triglycerides Lipase HDL Cholesterol PTH Intact Arterial Blood Glucose Arterial Blood Ionized Calcium Urine WBC (Auto) Urine Creatinine Ur Creatinine 24 Hour Urine Total Protein ZINA Screen Crossmatch 03/03/20 03/03/20 03/03/20 04:00 04:36 04:36 WBC Hgb RBC Hct MCV MCH RDW Plt Count Lymph % (Auto) Lymph # [place] % (Auto) [place] # Eos % (Auto) Lymph # (Auto) [place] # (Auto) Eos # (Auto) Seg Neutrophils % Baso # (Auto) Seg Neutrophils # Seg Neuts % (Manual) Lymphocytes % (Manual) Monocytes % (Manual) Nucleated RBC % Seg Neutrophils # Man Lymphocytes # (Manual) Monocytes # (Manual) Eosinophils # (Manual) Basophils # (Manual) ABG pH POC ABG pCO2 31.8 L POC ABG pO2 ABG pO2 ABG HCO3 ABG O2 Saturation ABG Base Excess ABG Hemoglobin 8.6 L ABG Oxyhemoglobin ABG Sodium ABG Glucose Oxyhemoglobin Sodium 147 H Potassium Chloride 108.4 H Carbon Dioxide 16 L BUN 87 H Creatinine 6.2 H Glucose POC Glucose Calcium Phosphorus Magnesium 2.50 H Direct Bilirubin 1.0 H AST Alkaline Phosphatase Albumin 2.4 L Troponin T C-Reactive Protein Tqkzp-1-Etovaygmu PEP Interpretation Triglycerides Lipase 119 H HDL Cholesterol PTH Intact Arterial Blood Glucose Arterial Blood Ionized Calcium Urine WBC (Auto) Urine Creatinine Ur Creatinine 24 Hour Urine Total Protein ZINA Screen Crossmatch 03/03/20 03/03/20 03/03/20 04:36 12:48 17:48 WBC 28.0 H Hgb 8.1 L RBC 3.41 L Hct 25.3 L MCV 74 L MCH 24 L RDW 20.8 H Plt Count 557 H Lymph % (Auto) Lymph # [place] % (Auto) [place] # Eos % (Auto) Lymph # (Auto) [place] # (Auto) Eos # (Auto) Seg Neutrophils % Baso # (Auto) Seg Neutrophils # Seg Neuts % (Manual) 82.0 H Lymphocytes % (Manual) 4.0 L Monocytes % (Manual) Nucleated RBC % Seg Neutrophils # Man 23.0 H Lymphocytes # (Manual) 1.1 L Monocytes # (Manual) 2.0 H Eosinophils # (Manual) Basophils # (Manual) ABG pH POC ABG pCO2 POC ABG pO2 ABG pO2 ABG HCO3 ABG O2 Saturation ABG Base Excess ABG Hemoglobin ABG Oxyhemoglobin ABG Sodium ABG Glucose Oxyhemoglobin Sodium Potassium Chloride Carbon Dioxide BUN Creatinine Glucose POC Glucose 131 H 113 H Calcium Phosphorus Magnesium Direct Bilirubin AST Alkaline Phosphatase Albumin Troponin T C-Reactive Protein Joixw-0-Ggicojnkp PEP Interpretation Triglycerides Lipase HDL Cholesterol PTH Intact Arterial Blood Glucose Arterial Blood Ionized Calcium Urine WBC (Auto) Urine Creatinine Ur Creatinine 24 Hour Urine Total Protein ZINA Screen Crossmatch 03/03/20 03/04/20 03/04/20 23:43 03:43 04:05 WBC Hgb RBC Hct MCV MCH RDW Plt Count Lymph % (Auto) Lymph # [place] % (Auto) [place] # Eos % (Auto) Lymph # (Auto) [place] # (Auto) Eos # (Auto) Seg Neutrophils % Baso # (Auto) Seg Neutrophils # Seg Neuts % (Manual) Lymphocytes % (Manual) Monocytes % (Manual) Nucleated RBC % Seg Neutrophils # Man Lymphocytes # (Manual) Monocytes # (Manual) Eosinophils # (Manual) Basophils # (Manual) ABG pH POC ABG pCO2 POC ABG pO2 ABG pO2 57.4 L ABG HCO3 27.2 H ABG O2 Saturation 88.6 L ABG Base Excess ABG Hemoglobin ABG Oxyhemoglobin ABG Sodium ABG Glucose Oxyhemoglobin Sodium Potassium 3.3 L Chloride Carbon Dioxide BUN 65 H Creatinine 5.3 H Glucose 152 H POC Glucose 149 H Calcium Phosphorus Magnesium Direct Bilirubin 0.7 H AST Alkaline Phosphatase Albumin 2.5 L Troponin T C-Reactive Protein Eefzu-9-Xpdrnqiyr PEP Interpretation Triglycerides Lipase HDL Cholesterol PTH Intact Arterial Blood Glucose Arterial Blood Ionized Calcium Urine WBC (Auto) Urine Creatinine Ur Creatinine 24 Hour Urine Total Protein ZINA Screen Crossmatch 03/04/20 03/04/20 03/04/20 04:05 05:26 12:21 WBC 30.1 H Hgb 8.2 L RBC 3.44 L Hct 25.2 L MCV 73 L MCH 24 L RDW 20.7 H Plt Count 554 H Lymph % (Auto) 3.3 L Lymph # [place] % (Auto) [place] # Eos % (Auto) Lymph # (Auto) 1.0 L [place] # (Auto) 2.0 H Eos # (Auto) Seg Neutrophils % 88.6 H Baso # (Auto) Seg Neutrophils # 26.6 H Seg Neuts % (Manual) Lymphocytes % (Manual) Monocytes % (Manual) Nucleated RBC % Seg Neutrophils # Man Lymphocytes # (Manual) Monocytes # (Manual) Eosinophils # (Manual) Basophils # (Manual) ABG pH POC ABG pCO2 POC ABG pO2 ABG pO2 ABG HCO3 ABG O2 Saturation ABG Base Excess ABG Hemoglobin ABG Oxyhemoglobin ABG Sodium ABG Glucose Oxyhemoglobin Sodium Potassium Chloride Carbon Dioxide BUN Creatinine Glucose POC Glucose 136 H 155 H Calcium Phosphorus Magnesium Direct Bilirubin AST Alkaline Phosphatase Albumin Troponin T C-Reactive Protein Aqucj-3-Cvhwdbzgx PEP Interpretation Triglycerides Lipase HDL Cholesterol PTH Intact Arterial Blood Glucose Arterial Blood Ionized Calcium Urine WBC (Auto) Urine Creatinine Ur Creatinine 24 Hour Urine Total Protein ZINA Screen Crossmatch 03/04/20 03/04/20 03/04/20 18:02 19:00 23:24 WBC Hgb RBC Hct MCV MCH RDW Plt Count Lymph % (Auto) Lymph # [place] % (Auto) [place] # Eos % (Auto) Lymph # (Auto) [place] # (Auto) Eos # (Auto) Seg Neutrophils % Baso # (Auto) Seg Neutrophils # Seg Neuts % (Manual) Lymphocytes % (Manual) Monocytes % (Manual) Nucleated RBC % Seg Neutrophils # Man Lymphocytes # (Manual) Monocytes # (Manual) Eosinophils # (Manual) Basophils # (Manual) ABG pH POC ABG pCO2 POC ABG pO2 ABG pO2 ABG HCO3 ABG O2 Saturation ABG Base Excess ABG Hemoglobin ABG Oxyhemoglobin ABG Sodium ABG Glucose Oxyhemoglobin Sodium Potassium Chloride Carbon Dioxide BUN Creatinine Glucose POC Glucose 124 H 115 H Calcium Phosphorus Magnesium Direct Bilirubin AST Alkaline Phosphatase Albumin Troponin T C-Reactive Protein [id number] PEP Interpretation Triglycerides Lipase 72 H HDL Cholesterol PTH Intact Arterial Blood Glucose Arterial Blood Ionized Calcium Urine WBC (Auto) Urine Creatinine Ur Creatinine 24 Hour Urine Total Protein ZINA Screen Crossmatch 03/05/20 03/05/20 03/05/20 05:04 05:29 06:00 WBC Hgb RBC Hct MCV MCH RDW Plt Count Lymph % (Auto) Lymph # [place] % (Auto) [place] # Eos % (Auto) Lymph # (Auto) [place] # (Auto) Eos # (Auto) Seg Neutrophils % Baso # (Auto) Seg Neutrophils # Seg Neuts % (Manual) Lymphocytes % (Manual) Monocytes % (Manual) Nucleated RBC % Seg Neutrophils # Man Lymphocytes # (Manual) Monocytes # (Manual) Eosinophils # (Manual) Basophils # (Manual) ABG pH POC ABG pCO2 POC ABG pO2 ABG pO2 62.5 L ABG HCO3 26.4 H ABG O2 Saturation 92.1 L ABG Base Excess ABG Hemoglobin 9.3 L ABG Oxyhemoglobin ABG Sodium ABG Glucose Oxyhemoglobin 89.9 L Sodium Potassium Chloride Carbon Dioxide BUN 54 H Creatinine 5.4 H Glucose 125 H POC Glucose 134 H Calcium Phosphorus Magnesium Direct Bilirubin 0.6 H AST Alkaline Phosphatase 133 H Albumin 2.5 L Troponin T C-Reactive Protein Xxtdu-7-Pqiklgqrz PEP Interpretation Triglycerides Lipase HDL Cholesterol PTH Intact Arterial Blood Glucose Arterial Blood Ionized Calcium Urine WBC (Auto) Urine Creatinine Ur Creatinine 24 Hour Urine Total Protein ZINA Screen Crossmatch 03/05/20 03/05/20 03/05/20 12:18 18:01 21:39 WBC Hgb RBC Hct MCV MCH RDW Plt Count Lymph % (Auto) Lymph # [place] % (Auto) [place] # Eos % (Auto) Lymph # (Auto) [place] # (Auto) Eos # (Auto) Seg Neutrophils % Baso # (Auto) Seg Neutrophils # Seg Neuts % (Manual) Lymphocytes % (Manual) Monocytes % (Manual) Nucleated RBC % Seg Neutrophils # Man Lymphocytes # (Manual) Monocytes # (Manual) Eosinophils # (Manual) Basophils # (Manual) ABG pH POC ABG pCO2 POC ABG pO2 ABG pO2 ABG HCO3 ABG O2 Saturation ABG Base Excess ABG Hemoglobin ABG Oxyhemoglobin ABG Sodium ABG Glucose Oxyhemoglobin Sodium Potassium Chloride Carbon Dioxide BUN Creatinine Glucose POC Glucose 118 H 108 H 123 H Calcium Phosphorus Magnesium Direct Bilirubin AST Alkaline Phosphatase Albumin Troponin T C-Reactive Protein Ehvpq-2-Sncmyjjmo PEP Interpretation Triglycerides Lipase HDL Cholesterol PTH Intact Arterial Blood Glucose Arterial Blood Ionized Calcium Urine WBC (Auto) Urine Creatinine Ur Creatinine 24 Hour Urine Total Protein ZINA Screen Crossmatch 03/06/20 03/06/20 03/06/20 04:40 04:41 05:44 WBC Hgb RBC Hct MCV MCH RDW Plt Count Lymph % (Auto) Lymph # [place] % (Auto) [place] # Eos % (Auto) Lymph # (Auto) [place] # (Auto) Eos # (Auto) Seg Neutrophils % Baso # (Auto) Seg Neutrophils # Seg Neuts % (Manual) Lymphocytes % (Manual) Monocytes % (Manual) Nucleated RBC % Seg Neutrophils # Man Lymphocytes # (Manual) Monocytes # (Manual) Eosinophils # (Manual) Basophils # (Manual) ABG pH POC ABG pCO2 POC ABG pO2 64.9 L ABG pO2 ABG HCO3 ABG O2 Saturation ABG Base Excess ABG Hemoglobin 9.9 L ABG Oxyhemoglobin 90.5 L ABG Sodium ABG Glucose Oxyhemoglobin Sodium Potassium Chloride 94.7 L Carbon Dioxide BUN 70 H Creatinine 7.1 H Glucose 113 H POC Glucose 134 H Calcium Phosphorus Magnesium Direct Bilirubin AST Alkaline Phosphatase Albumin Troponin T C-Reactive Protein Qlqha-0-Lhhtbfyeu PEP Interpretation Triglycerides Lipase HDL Cholesterol PTH Intact Arterial Blood Glucose Arterial Blood Ionized Calcium Urine WBC (Auto) Urine Creatinine Ur Creatinine 24 Hour Urine Total Protein ZINA Screen Crossmatch 03/06/20 03/06/20 03/06/20 08:54 11:56 18:19 WBC 31.5 H Hgb 8.7 L RBC Hct 27.8 L MCV 75 L MCH 23 L RDW 21.2 H Plt Count 516 H Lymph % (Auto) Lymph # [place] % (Auto) [place] # Eos % (Auto) Lymph # (Auto) [place] # (Auto) Eos # (Auto) Seg Neutrophils % Baso # (Auto) Seg Neutrophils # Seg Neuts % (Manual) 93.0 H Lymphocytes % (Manual) 2.0 L Monocytes % (Manual) Nucleated RBC % Seg Neutrophils # Man 29.3 H Lymphocytes # (Manual) 0.6 L Monocytes # (Manual) Eosinophils # (Manual) 0.6 H Basophils # (Manual) ABG pH POC ABG pCO2 POC ABG pO2 ABG pO2 ABG HCO3 ABG O2 Saturation ABG Base Excess ABG Hemoglobin ABG Oxyhemoglobin ABG Sodium ABG Glucose Oxyhemoglobin Sodium Potassium Chloride Carbon Dioxide BUN Creatinine Glucose POC Glucose 131 H 117 H Calcium Phosphorus Magnesium Direct Bilirubin AST Alkaline Phosphatase Albumin Troponin T C-Reactive Protein Uyomm-9-Ubiuftkug PEP Interpretation Triglycerides Lipase HDL Cholesterol PTH Intact Arterial Blood Glucose Arterial Blood Ionized Calcium Urine WBC (Auto) Urine Creatinine Ur Creatinine 24 Hour Urine Total Protein ZINA Screen Crossmatch 03/07/20 03/07/20 03/07/20 04:42 05:03 05:03 WBC 26.9 H Hgb 8.3 L RBC 3.50 L Hct 26.6 L MCV 76 L MCH 24 L RDW 21.3 H Plt Count 470 H Lymph % (Auto) Lymph # [place] % (Auto) [place] # Eos % (Auto) Lymph # (Auto) [place] # (Auto) Eos # (Auto) Seg Neutrophils % Baso # (Auto) Seg Neutrophils # Seg Neuts % (Manual) 89.0 H Lymphocytes % (Manual) 4.0 L Monocytes % (Manual) Nucleated RBC % Seg Neutrophils # Man 23.9 H Lymphocytes # (Manual) 1.1 L Monocytes # (Manual) Eosinophils # (Manual) Basophils # (Manual) 0.3 H ABG pH POC ABG pCO2 POC ABG pO2 68.3 L ABG pO2 ABG HCO3 ABG O2 Saturation ABG Base Excess ABG Hemoglobin 9.3 L ABG Oxyhemoglobin ABG Sodium ABG Glucose 112 H Oxyhemoglobin Sodium Potassium Chloride 94.8 L Carbon Dioxide BUN 52 H Creatinine 6.3 H Glucose 106 H POC Glucose Calcium Phosphorus Magnesium Direct Bilirubin AST Alkaline Phosphatase 132 H Albumin 2.5 L Troponin T C-Reactive Protein Jngdq-3-Naytmzbwi PEP Interpretation Triglycerides Lipase HDL Cholesterol PTH Intact Arterial Blood Glucose 112 H Arterial Blood Ionized Calcium Urine WBC (Auto) Urine Creatinine Ur Creatinine 24 Hour Urine Total Protein ZINA Screen Crossmatch 03/07/20 03/07/20 03/07/20 12:08 18:05 23:29 WBC Hgb RBC Hct MCV MCH RDW Plt Count Lymph % (Auto) Lymph # [place] % (Auto) [place] # Eos % (Auto) Lymph # (Auto) [place] # (Auto) Eos # (Auto) Seg Neutrophils % Baso # (Auto) Seg Neutrophils # Seg Neuts % (Manual) Lymphocytes % (Manual) Monocytes % (Manual) Nucleated RBC % Seg Neutrophils # Man Lymphocytes # (Manual) Monocytes # (Manual) Eosinophils # (Manual) Basophils # (Manual) ABG pH POC ABG pCO2 POC ABG pO2 ABG pO2 ABG HCO3 ABG O2 Saturation ABG Base Excess ABG Hemoglobin ABG Oxyhemoglobin ABG Sodium ABG Glucose Oxyhemoglobin Sodium Potassium Chloride Carbon Dioxide BUN Creatinine Glucose POC Glucose 114 H 111 H 118 H Calcium Phosphorus Magnesium Direct Bilirubin AST Alkaline Phosphatase Albumin Troponin T C-Reactive Protein Cyumt-9-Ihqthlmzi PEP Interpretation Triglycerides Lipase HDL Cholesterol PTH Intact Arterial Blood Glucose Arterial Blood Ionized Calcium Urine WBC (Auto) Urine Creatinine Ur Creatinine 24 Hour Urine Total Protein ZINA Screen Crossmatch 03/08/20 03/08/20 03/08/20 04:50 17:45 23:53 WBC Hgb RBC Hct MCV MCH RDW Plt Count Lymph % (Auto) Lymph # [place] % (Auto) [place] # Eos % (Auto) Lymph # (Auto) [place] # (Auto) Eos # (Auto) Seg Neutrophils % Baso # (Auto) Seg Neutrophils # Seg Neuts % (Manual) Lymphocytes % (Manual) Monocytes % (Manual) Nucleated RBC % Seg Neutrophils # Man Lymphocytes # (Manual) Monocytes # (Manual) Eosinophils # (Manual) Basophils # (Manual) ABG pH POC ABG pCO2 POC ABG pO2 ABG pO2 ABG HCO3 ABG O2 Saturation ABG Base Excess ABG Hemoglobin ABG Oxyhemoglobin ABG Sodium ABG Glucose Oxyhemoglobin Sodium Potassium Chloride 95.5 L Carbon Dioxide BUN 52 H Creatinine 6.2 H Glucose 109 H POC Glucose 106 H 106 H Calcium Phosphorus Magnesium Direct Bilirubin AST Alkaline Phosphatase Albumin Troponin T C-Reactive Protein Uakbj-0-Khciyujgv PEP Interpretation Triglycerides Lipase HDL Cholesterol PTH Intact Arterial Blood Glucose Arterial Blood Ionized Calcium Urine WBC (Auto) Urine Creatinine Ur Creatinine 24 Hour Urine Total Protein ZINA Screen Crossmatch 03/09/20 03/09/20 03/09/20 04:00 07:53 18:22 WBC 21.9 H Hgb 7.5 L RBC 3.27 L Hct 24.3 L MCV 74 L MCH 23 L RDW 20.9 H Plt Count 488 H Lymph % (Auto) Lymph # [place] % (Auto) [place] # Eos % (Auto) Lymph # (Auto) [place] # (Auto) Eos # (Auto) Seg Neutrophils % Baso # (Auto) Seg Neutrophils # Seg Neuts % (Manual) Lymphocytes % (Manual) Monocytes % (Manual) Nucleated RBC % Seg Neutrophils # Man Lymphocytes # (Manual) Monocytes # (Manual) Eosinophils # (Manual) Basophils # (Manual) ABG pH POC ABG pCO2 POC ABG pO2 ABG pO2 ABG HCO3 ABG O2 Saturation ABG Base Excess ABG Hemoglobin ABG Oxyhemoglobin ABG Sodium ABG Glucose Oxyhemoglobin Sodium Potassium Chloride 92.8 L Carbon Dioxide BUN 74 H Creatinine 7.8 H Glucose POC Glucose 114 H Calcium Phosphorus Magnesium Direct Bilirubin AST Alkaline Phosphatase Albumin Troponin T C-Reactive Protein Hvgun-1-Dkxilspfz PEP Interpretation Triglycerides Lipase HDL Cholesterol PTH Intact Arterial Blood Glucose Arterial Blood Ionized Calcium Urine WBC (Auto) Urine Creatinine Ur Creatinine 24 Hour Urine Total Protein ZINA Screen Crossmatch 03/10/20 03/10/20 03/10/20 04:37 04:37 09:53 WBC 16.0 H Hgb 7.1 L RBC 2.99 L Hct 22.4 L MCV 75 L MCH 24 L RDW 21.5 H Plt Count Lymph % (Auto) 9.2 L Lymph # [place] % (Auto) 9.9 H [place] # Eos % (Auto) Lymph # (Auto) [place] # (Auto) 1.6 H Eos # (Auto) Seg Neutrophils % 79.2 H Baso # (Auto) Seg Neutrophils # 12.6 H Seg Neuts % (Manual) Lymphocytes % (Manual) Monocytes % (Manual) Nucleated RBC % Seg Neutrophils # Man Lymphocytes # (Manual) Monocytes # (Manual) Eosinophils # (Manual) Basophils # (Manual) ABG pH POC ABG pCO2 POC ABG pO2 ABG pO2 ABG HCO3 ABG O2 Saturation ABG Base Excess ABG Hemoglobin 7.7 L ABG Oxyhemoglobin ABG Sodium 134.7 L ABG Glucose 103 H Oxyhemoglobin Sodium Potassium Chloride Carbon Dioxide BUN 45 H Creatinine 5.6 H Glucose 108 H POC Glucose Calcium Phosphorus Magnesium Direct Bilirubin AST Alkaline Phosphatase Albumin Troponin T C-Reactive Protein Xthck-3-Mmprsmxwj PEP Interpretation Triglycerides Lipase HDL Cholesterol PTH Intact Arterial Blood Glucose 103 H Arterial Blood Ionized Calcium Urine WBC (Auto) Urine Creatinine Ur Creatinine 24 Hour Urine Total Protein ZINA Screen Crossmatch 03/10/20 03/11/20 03/11/20 23:46 02:52 03:25 WBC Hgb RBC Hct MCV MCH RDW Plt Count Lymph % (Auto) Lymph # [place] % (Auto) [place] # Eos % (Auto) Lymph # (Auto) [place] # (Auto) Eos # (Auto) Seg Neutrophils % Baso # (Auto) Seg Neutrophils # Seg Neuts % (Manual) Lymphocytes % (Manual) Monocytes % (Manual) Nucleated RBC % Seg Neutrophils # Man Lymphocytes # (Manual) Monocytes # (Manual) Eosinophils # (Manual) Basophils # (Manual) ABG pH POC ABG pCO2 POC ABG pO2 77.5 L ABG pO2 ABG HCO3 ABG O2 Saturation ABG Base Excess ABG Hemoglobin 8.0 L ABG Oxyhemoglobin ABG Sodium 135.8 L ABG Glucose Oxyhemoglobin Sodium Potassium Chloride Carbon Dioxide BUN Creatinine Glucose POC Glucose 116 H Calcium Phosphorus Magnesium Direct Bilirubin AST Alkaline Phosphatase Albumin Troponin T 0.093 H C-Reactive Protein Otrhr-9-Ftbcyvxfb PEP Interpretation Triglycerides Lipase HDL Cholesterol PTH Intact Arterial Blood Glucose Arterial Blood Ionized Calcium Urine WBC (Auto) Urine Creatinine Ur Creatinine 24 Hour Urine Total Protein ZINA Screen Crossmatch 03/11/20 03/11/20 03/11/20 04:32 04:32 06:16 WBC 22.4 H Hgb 7.8 L RBC 3.32 L Hct 25.0 L MCV 75 L MCH 24 L RDW 21.4 H Plt Count 553 H Lymph % (Auto) Lymph # [place] % (Auto) [place] # Eos % (Auto) Lymph # (Auto) [place] # (Auto) Eos # (Auto) Seg Neutrophils % Baso # (Auto) Seg Neutrophils # Seg Neuts % (Manual) 81.0 H Lymphocytes % (Manual) 8.0 L Monocytes % (Manual) 8.0 H Nucleated RBC % Seg Neutrophils # Man 18.1 H Lymphocytes # (Manual) Monocytes # (Manual) 1.8 H Eosinophils # (Manual) Basophils # (Manual) 0.2 H ABG pH POC ABG pCO2 POC ABG pO2 ABG pO2 ABG HCO3 ABG O2 Saturation ABG Base Excess ABG Hemoglobin ABG Oxyhemoglobin ABG Sodium ABG Glucose Oxyhemoglobin Sodium Potassium Chloride 96.6 L Carbon Dioxide BUN 64 H Creatinine 6.5 H Glucose 101 H POC Glucose 142 H Calcium Phosphorus Magnesium Direct Bilirubin AST 41 H Alkaline Phosphatase Albumin 2.7 L Troponin T C-Reactive Protein Vmxvl-9-Lddmrypjv PEP Interpretation Triglycerides Lipase HDL Cholesterol PTH Intact Arterial Blood Glucose Arterial Blood Ionized Calcium Urine WBC (Auto) Urine Creatinine Ur Creatinine 24 Hour Urine Total Protein ZINA Screen Crossmatch 03/11/20 03/11/20 03/11/20 06:50 07:31 14:31 WBC Hgb 7.7 L RBC Hct 23.7 L MCV MCH RDW Plt Count 553 H Lymph % (Auto) Lymph # [place] % (Auto) [place] # Eos % (Auto) Lymph # (Auto) [place] # (Auto) Eos # (Auto) Seg Neutrophils % Baso # (Auto) Seg Neutrophils # Seg Neuts % (Manual) Lymphocytes % (Manual) Monocytes % (Manual) Nucleated RBC % Seg Neutrophils # Man Lymphocytes # (Manual) Monocytes # (Manual) Eosinophils # (Manual) Basophils # (Manual) ABG pH POC ABG pCO2 POC ABG pO2 ABG pO2 67.8 L ABG HCO3 ABG O2 Saturation ABG Base Excess ABG Hemoglobin ABG Oxyhemoglobin ABG Sodium ABG Glucose Oxyhemoglobin Sodium Potassium Chloride Carbon Dioxide BUN Creatinine Glucose POC Glucose Calcium Phosphorus Magnesium Direct Bilirubin AST Alkaline Phosphatase Albumin Troponin T 0.085 H C-Reactive Protein Aslwh-6-Pnhvupyom PEP Interpretation Triglycerides 247 H Lipase HDL Cholesterol 28 L PTH Intact Arterial Blood Glucose Arterial Blood Ionized Calcium Urine WBC (Auto) Urine Creatinine Ur Creatinine 24 Hour Urine Total Protein ZINA Screen Crossmatch 03/12/20 03/12/20 03/13/20 03:46 17:33 04:00 WBC Hgb 6.6 L RBC Hct 19.5 L* MCV MCH RDW Plt Count 603 H Lymph % (Auto) Lymph # [place] % (Auto) [place] # Eos % (Auto) Lymph # (Auto) [place] # (Auto) Eos # (Auto) Seg Neutrophils % Baso # (Auto) Seg Neutrophils # Seg Neuts % (Manual) Lymphocytes % (Manual) Monocytes % (Manual) Nucleated RBC % Seg Neutrophils # Man Lymphocytes # (Manual) Monocytes # (Manual) Eosinophils # (Manual) Basophils # (Manual) ABG pH POC ABG pCO2 POC ABG pO2 78.3 L ABG pO2 ABG HCO3 ABG O2 Saturation ABG Base Excess ABG Hemoglobin 7.9 L ABG Oxyhemoglobin ABG Sodium 134.8 L ABG Glucose Oxyhemoglobin Sodium Potassium Chloride Carbon Dioxide BUN Creatinine Glucose POC Glucose 107 H Calcium Phosphorus Magnesium Direct Bilirubin AST Alkaline Phosphatase Albumin Troponin T C-Reactive Protein Xkfcv-9-Kogakhczf PEP Interpretation Triglycerides Lipase HDL Cholesterol PTH Intact Arterial Blood Glucose Arterial Blood Ionized Calcium Urine WBC (Auto) Urine Creatinine Ur Creatinine 24 Hour Urine Total Protein ZINA Screen Crossmatch 03/13/20 03/13/20 03/13/20 04:00 08:20 08:45 WBC Hgb 7.0 L RBC Hct 21.8 L MCV MCH RDW Plt Count Lymph % (Auto) Lymph # [place] % (Auto) [place] # Eos % (Auto) Lymph # (Auto) [place] # (Auto) Eos # (Auto) Seg Neutrophils % Baso # (Auto) Seg Neutrophils # Seg Neuts % (Manual) Lymphocytes % (Manual) Monocytes % (Manual) Nucleated RBC % Seg Neutrophils # Man Lymphocytes # (Manual) Monocytes # (Manual) Eosinophils # (Manual) Basophils # (Manual) ABG pH POC ABG pCO2 POC ABG pO2 ABG pO2 ABG HCO3 27.4 H ABG O2 Saturation ABG Base Excess ABG Hemoglobin 8.7 L ABG Oxyhemoglobin ABG Sodium ABG Glucose Oxyhemoglobin 94.6 L Sodium Potassium Chloride Carbon Dioxide BUN Creatinine Glucose POC Glucose Calcium Phosphorus Magnesium Direct Bilirubin AST Alkaline Phosphatase Albumin Troponin T C-Reactive Protein Jpxsu-7-Qxmmxnxti PEP Interpretation Triglycerides Lipase HDL Cholesterol PTH Intact Arterial Blood Glucose Arterial Blood Ionized Calcium Urine WBC (Auto) Urine Creatinine Ur Creatinine 24 Hour Urine Total Protein ZINA Screen Crossmatch See Detail 03/13/20 03/13/20 03/14/20 14:23 15:38 06:15 WBC Hgb RBC Hct MCV MCH RDW Plt Count Lymph % (Auto) Lymph # [place] % (Auto) [place] # Eos % (Auto) Lymph # (Auto) [place] # (Auto) Eos # (Auto) Seg Neutrophils % Baso # (Auto) Seg Neutrophils # Seg Neuts % (Manual) Lymphocytes % (Manual) Monocytes % (Manual) Nucleated RBC % Seg Neutrophils # Man Lymphocytes # (Manual) Monocytes # (Manual) Eosinophils # (Manual) Basophils # (Manual) ABG pH 7.462 H POC ABG pCO2 POC ABG pO2 75.1 L ABG pO2 ABG HCO3 ABG O2 Saturation ABG Base Excess ABG Hemoglobin 8.9 L ABG Oxyhemoglobin ABG Sodium 135.9 L ABG Glucose Oxyhemoglobin Sodium Potassium Chloride 94.2 L 93.1 L Carbon Dioxide BUN 32 H 45 H Creatinine 3.6 H 4.9 H Glucose POC Glucose Calcium Phosphorus Magnesium Direct Bilirubin AST Alkaline Phosphatase Albumin Troponin T C-Reactive Protein Lrscn-8-Yatiamrkk PEP Interpretation Triglycerides Lipase HDL Cholesterol PTH Intact Arterial Blood Glucose Arterial Blood Ionized Calcium 4.5 L Urine WBC (Auto) Urine Creatinine Ur Creatinine 24 Hour Urine Total Protein ZINA Screen Crossmatch 03/14/20 03/14/20 03/15/20 06:15 Unknown 04:31 WBC 13.7 H Hgb 7.8 L 7.7 L 8.1 L RBC 3.13 L Hct 22.4 L 23.8 L 24.7 L MCV 76 L MCH 25 L RDW 21.6 H Plt Count 662 H 729 H Lymph % (Auto) Lymph # [place] % (Auto) [place] # Eos % (Auto) Lymph # (Auto) [place] # (Auto) 1.0 H Eos # (Auto) 0.6 H Seg Neutrophils % 71.5 H Baso # (Auto) Seg Neutrophils # 9.8 H Seg Neuts % (Manual) Lymphocytes % (Manual) Monocytes % (Manual) Nucleated RBC % Seg Neutrophils # Man Lymphocytes # (Manual) Monocytes # (Manual) Eosinophils # (Manual) Basophils # (Manual) ABG pH POC ABG pCO2 POC ABG pO2 ABG pO2 ABG HCO3 ABG O2 Saturation ABG Base Excess ABG Hemoglobin ABG Oxyhemoglobin ABG Sodium ABG Glucose Oxyhemoglobin Sodium Potassium Chloride Carbon Dioxide BUN Creatinine Glucose POC Glucose Calcium Phosphorus Magnesium Direct Bilirubin AST Alkaline Phosphatase Albumin Troponin T C-Reactive Protein Wkscc-3-Tncdvougl PEP Interpretation Triglycerides Lipase HDL Cholesterol PTH Intact Arterial Blood Glucose Arterial Blood Ionized Calcium Urine WBC (Auto) Urine Creatinine Ur Creatinine 24 Hour Urine Total Protein ZINA Screen Crossmatch 03/15/20 03/15/20 03/16/20 04:31 13:20 00:17 WBC Hgb RBC Hct MCV MCH RDW Plt Count Lymph % (Auto) Lymph # [place] % (Auto) [place] # Eos % (Auto) Lymph # (Auto) [place] # (Auto) Eos # (Auto) Seg Neutrophils % Baso # (Auto) Seg Neutrophils # Seg Neuts % (Manual) Lymphocytes % (Manual) Monocytes % (Manual) Nucleated RBC % Seg Neutrophils # Man Lymphocytes # (Manual) Monocytes # (Manual) Eosinophils # (Manual) Basophils # (Manual) ABG pH POC ABG pCO2 POC ABG pO2 ABG pO2 ABG HCO3 28.9 H ABG O2 Saturation ABG Base Excess 3.9 H ABG Hemoglobin 8.6 L ABG Oxyhemoglobin ABG Sodium ABG Glucose Oxyhemoglobin 94.9 L Sodium Potassium Chloride 95.9 L Carbon Dioxide BUN 60 H Creatinine 5.6 H Glucose POC Glucose 111 H Calcium Phosphorus Magnesium Direct Bilirubin AST Alkaline Phosphatase Albumin Troponin T C-Reactive Protein Lxdpz-3-Uzufheepm PEP Interpretation Triglycerides Lipase HDL Cholesterol PTH Intact Arterial Blood Glucose Arterial Blood Ionized Calcium Urine WBC (Auto) Urine Creatinine Ur Creatinine 24 Hour Urine Total Protein ZINA Screen Crossmatch 03/16/20 03/16/20 03/17/20 04:52 04:52 04:55 WBC 13.9 H Hgb 8.3 L 9.1 L RBC 3.35 L Hct 25.8 L 28.2 L MCV 77 L MCH 25 L RDW 22.1 H Plt Count 799 H 818 H Lymph % (Auto) 11.1 L Lymph # [place] % (Auto) [place] # Eos % (Auto) 4.4 H Lymph # (Auto) [place] # (Auto) 0.9 H Eos # (Auto) 0.6 H Seg Neutrophils % 77.4 H Baso # (Auto) Seg Neutrophils # 10.8 H Seg Neuts % (Manual) Lymphocytes % (Manual) Monocytes % (Manual) Nucleated RBC % Seg Neutrophils # Man Lymphocytes # (Manual) Monocytes # (Manual) Eosinophils # (Manual) Basophils # (Manual) ABG pH POC ABG pCO2 POC ABG pO2 ABG pO2 ABG HCO3 ABG O2 Saturation ABG Base Excess ABG Hemoglobin ABG Oxyhemoglobin ABG Sodium ABG Glucose Oxyhemoglobin Sodium Potassium Chloride 93.8 L Carbon Dioxide BUN 72 H Creatinine 5.8 H Glucose POC Glucose Calcium Phosphorus Magnesium Direct Bilirubin AST Alkaline Phosphatase Albumin 2.7 L Troponin T C-Reactive Protein Mfefv-3-Ittcoiztx PEP Interpretation Triglycerides Lipase HDL Cholesterol PTH Intact Arterial Blood Glucose Arterial Blood Ionized Calcium Urine WBC (Auto) Urine Creatinine Ur Creatinine 24 Hour Urine Total Protein ZINA Screen Crossmatch 03/17/20 03/18/20 03/18/20 04:55 10:28 14:00 WBC Hgb RBC Hct MCV MCH RDW Plt Count Lymph % (Auto) Lymph # [place] % (Auto) [place] # Eos % (Auto) Lymph # (Auto) [place] # (Auto) Eos # (Auto) Seg Neutrophils % Baso # (Auto) Seg Neutrophils # Seg Neuts % (Manual) Lymphocytes % (Manual) Monocytes % (Manual) Nucleated RBC % Seg Neutrophils # Man Lymphocytes # (Manual) Monocytes # (Manual) Eosinophils # (Manual) Basophils # (Manual) ABG pH POC ABG pCO2 POC ABG pO2 ABG pO2 ABG HCO3 ABG O2 Saturation ABG Base Excess ABG Hemoglobin ABG Oxyhemoglobin ABG Sodium ABG Glucose Oxyhemoglobin Sodium Potassium Chloride 93.5 L 94.4 L Carbon Dioxide BUN 40 H 37 H Creatinine 3.8 H 3.0 H Glucose 112 H POC Glucose Calcium Phosphorus Magnesium Direct Bilirubin AST Alkaline Phosphatase Albumin Troponin T C-Reactive Protein Nzjox-0-Etuuytxvt PEP Interpretation Triglycerides Lipase HDL Cholesterol PTH Intact Arterial Blood Glucose Arterial Blood Ionized Calcium Urine WBC (Auto) Urine Creatinine 278.4 H Ur Creatinine 24 Hour 0.3 L Urine Total Protein ZINA Screen Crossmatch 03/19/20 03/19/20 03/20/20 05:55 05:55 04:31 WBC 15.1 H Hgb 9.4 L RBC Hct 29.3 L MCV 78 L MCH 25 L RDW 21.9 H Plt Count 775 H Lymph % (Auto) Lymph # [place] % (Auto) [place] # Eos % (Auto) 5.4 H Lymph # (Auto) [place] # (Auto) 0.9 H Eos # (Auto) 0.8 H Seg Neutrophils % 73.7 H Baso # (Auto) 0.2 H Seg Neutrophils # 11.1 H Seg Neuts % (Manual) Lymphocytes % (Manual) Monocytes % (Manual) Nucleated RBC % Seg Neutrophils # Man Lymphocytes # (Manual) Monocytes # (Manual) Eosinophils # (Manual) Basophils # (Manual) ABG pH POC ABG pCO2 POC ABG pO2 ABG pO2 ABG HCO3 ABG O2 Saturation ABG Base Excess ABG Hemoglobin ABG Oxyhemoglobin ABG Sodium ABG Glucose Oxyhemoglobin Sodium 136 L Potassium Chloride 92.0 L 94.8 L Carbon Dioxide BUN 28 H 40 H Creatinine 3.5 H 4.3 H Glucose POC Glucose Calcium Phosphorus Magnesium Direct Bilirubin AST Alkaline Phosphatase Albumin Troponin T C-Reactive Protein Ayolb-4-Knztrjlod PEP Interpretation Triglycerides Lipase HDL Cholesterol PTH Intact Arterial Blood Glucose Arterial Blood Ionized Calcium Urine WBC (Auto) Urine Creatinine Ur Creatinine 24 Hour Urine Total Protein ZINA Screen Crossmatch 03/21/20 05:00 WBC Hgb RBC Hct MCV MCH RDW Plt Count Lymph % (Auto) Lymph # [place] % (Auto) [place] # Eos % (Auto) Lymph # (Auto) [place] # (Auto) Eos # (Auto) Seg Neutrophils % Baso # (Auto) Seg Neutrophils # Seg Neuts % (Manual) Lymphocytes % (Manual) Monocytes % (Manual) Nucleated RBC % Seg Neutrophils # Man Lymphocytes # (Manual) Monocytes # (Manual) Eosinophils # (Manual) Basophils # (Manual) ABG pH POC ABG pCO2 POC ABG pO2 ABG pO2 ABG HCO3 ABG O2 Saturation ABG Base Excess ABG Hemoglobin ABG Oxyhemoglobin ABG Sodium ABG Glucose Oxyhemoglobin Sodium Potassium Chloride 94.2 L Carbon Dioxide BUN 23 H Creatinine 3.6 H Glucose POC Glucose Calcium Phosphorus Magnesium Direct Bilirubin AST Alkaline Phosphatase Albumin Troponin T C-Reactive Protein Ngsfd-4-Ijazozoei PEP Interpretation Triglycerides Lipase HDL Cholesterol PTH Intact Arterial Blood Glucose Arterial Blood Ionized Calcium Urine WBC (Auto) Urine Creatinine Ur Creatinine 24 Hour Urine Total Protein ZINA Screen Crossmatch Allied health notes reviewed: nursing
[2020-03-22] MEDS: hydrALAZINE 25 MG TAB PO SCH ×2 (04:28→05:11)
[2020-03-22] MEDS: HEPARIN 5,000 UNIT/1 ML VIAL SUB-Q SCH ×4 (04:28→21:57)
[2020-03-22 05:54] LABS: Calcium 10.1 mg/dL (8.4-10.2)
[2020-03-22] MEDS ORDERED: hydrALAZINE 25 MG TAB PO SCH (08:02)
--- NOTE | 2020-03-22 08:03 | Progress Note ---
Assessment and Plan Assessment and plan: 39-year-old -[place] female with known history of hypertension, history of kidney stones, hyperlipidemia and obesity presenting to the emergency room today complaining of abdominal pain radiating towards right flank and back. Pain is said to be 10/10 in severity. No known relieving or exacerbating factor. She has known history of kidney stones in the past. She has had some nausea but no vomiting and no diarrhea. She denies any hematuria or dysuria, she denies any fever or chills. Patient states she is currently on her menses. Upon arrival in the emergency room patient had elevated blood pressure with systolic in the 200s and diastolic in the 120s. She has had multiple rounds of IV labetalol withoutany significant improvement. Patient admits that she has been out of her medication for a couple of weeks. work-up in the emergency room reveals elevated lipase and CT of the abdomen and pelvis reveals acute pancreatitis. Patient also had hypertensive emergency on Cardene drip admitted to ICU, complicated by acute renal failure, acute respiratory failure requiring intubation, alcohol withdrawal on CIWA protocol, patient's renal function worsened requiring hemodialysis. Patient was ultimately weaned and extubated, evaluated by pulmonary critical GI surgery, nephrology and ID, Stabilized extubated transfer to medical floor,, discharge planning per case management, setting up outpatient HD placement. --Ac.hypoxic resp. failure /s/p extubated 03/15/2020 Extubated 03/15/2020, on BiPAP and Ventimask Patient is refusing BiPAP. On nasal cannula oxygen Patient was intubated initially 02/29/2020, extubated 03/10/2020 Again went into respiratory failure reintubated 03/11/2020, extubated 03/15/2020 Patient was off oxygen by the time I evaluated her and was breathing comfortably --Severe sepsis secondary to pneumonia and pancreatitis; s/p meropenem, completed total 14 days per ID ,follow cultures leukocytosis, tachycardia, tachypnea, fever, infiltrate on chest x-ray. Symptoms significantly improved -- Acute severe pancreatitis Initial non-contrasted CT showed no evidence of necrosis or pseudocyst or abscess formation. Repeat CT 03/05 with interval worsening of acute pancreatitis without clear evidence of necrosis with increased jessica-pancreatic fat stranding and disorganized fluid, Symptoms resolved --JUANIS/worsening renal function/on HD Initiated hemodialysis 03/03/2020. Hemodialysis per schedule, MWF If nephro recommend long-term HD Case management to set up outpatient HD --Severe metabolic encephalopathy/POA/resolved Patient is more alert and awake oriented x3 Back to her baseline -- Hypertensive emergency POA s/p Cardene drip, closely monitor Blood pressures is uncontrolled and changed amlodipine to Procardia, and increase the dose of hydralazine from 50-100 We will monitor and adjust as needed --Anemia; hemoglobin 9.4 No external evidence of bleeding Total 3 units of PRBC transfusion GI evaluated , patient is stable now --Chest pain/positive troponins;NSTEMI 2 Probably nonspecific , patient has acute kidney injury on dialysis continue current med management, follow serial cardiac enzymes, EF 60-65% on ECHO, cardiology evaluated and signed off conservative management -- Bilateral pleural effusions. Compressive atelectasis. Incentive spirometry --Alcohol withdrawal . Chronic alcohol use No new alcohol withdrawal symptoms Patient counseled and advised to quit alcohol intake Patient verbalized understanding --Severe metabolic acidosis; resolved On HD per nephrology --Severe protein calorie malnutrition and hypoalbuminemia Nutrition supplements, nutrition consult and supportive care --Medical noncompliance counseled the importance of adhering to the treatment plan Verbalized understanding -- DVT prophylaxis Patient placed on subcutaneous heparin. --Obesity; BMI 37.9 patient needs weight reduction when medically stable. -- Full code status Follow GI and pulmonary evaluation and recommendations We will closely monitor the patient and adjust the management as needed Patient is stable to be transferred out of ICU to telemetry DC planning per case management Possible discharge in 1 to 2 days if stable 03/15; patient is more alert and awake, remains intubated on vent, wean and extubate as tolerated DC planning per case management 03/16; patient received hemodialysis today stable to be transferred out of ICU to telemetry, DC planning per case management 03/17; DC planning per case management, outpatient HD placement if nephrology recommend long-term hemodialysis ; disposition per nephrology , pending decision for long-term hemodialysis .possible discharge in 1 to 2 days if stable 03/19; outpatient HD scheduling per case management 03/20: Stable, awaiting HD. BP still elevated will adjust BP meds INCREASING Hydralazine to 50mg TID 03/21; patient stable awaiting outpatient hemodialysis arrangement. BP is fairly controlled. 03/22/2020; patient will need outpatient hemodialysis arrangement. Patient will have PermCath tomorrow. BP is uncontrolled and blood pressures medications are adjusted. And will continue to monitor. History Interval history: Patient was seen and evaluated this morning Patient did not have any complaints Hospitalist Physical - Physical exam Narrative exam: Not in cardiopulmonary distress. The patient is obese. Vital signs as documented. Head exam is unremarkable. No scleral icterus . Neck is without jugular venous distension, thyromegaly, or carotid bruits. Lungs are clear to auscultation. Cardiac exam reveals regular rate and Rhythm. Abdominal exam reveals normal bowel sounds, nontender, no organomegaly. Extremities are nonedematous and both femoral and pedal pulses are normal. [employer]: Alert and oriented 3. No focal weakness. - Constitutional Vitals: Temp Pulse Resp BP Pulse Ox 98.9 F 97 H 18 175/103 97 03/22/20 03:47 03/22/20 03:47 03/22/20 03:47 03/22/20 03:47 03/22/20 03:47 General appearance: Present: no acute distress, well-nourished, obese, other (Intubated) HEART Score - HEART Score Troponin: Troponin T 0.085 ng/mL (0.00-0.029) H 03/11/20 14:31 Results - Labs CBC & Chem 7: 03/19/20 05:55 03/22/20 04:21 Labs: Laboratory Last Values WBC 15.1 K/mm3 (4.5-11.0) H 03/19/20 05:55 RBC 3.75 M/mm3 (3.65-5.03) 03/19/20 05:55 Hgb 9.4 gm/dl (10.1-14.3) L 03/19/20 05:55 Hct 29.3 % (30.3-42.9) L 03/19/20 05:55 MCV 78 fl (79-97) L 03/19/20 05:55 MCH 25 pg (28-32) L 03/19/20 05:55 MCHC 32 % (30-34) 03/19/20 05:55 RDW 21.9 % (13.2-15.2) H 03/19/20 05:55 Plt Count 775 K/mm3 (140-440) H 03/19/20 05:55 Lymph % (Auto) 14.1 % (13.4-35.0) 03/19/20 05:55 [place] % (Auto) 5.7 % (0.0-7.3) 03/19/20 05:55 Eos % (Auto) 5.4 % (0.0-4.3) H 03/19/20 05:55 Baso % (Auto) 1.1 % (0.0-1.8) 03/19/20 05:55 Lymph # (Auto) 2.1 K/mm3 (1.2-5.4) 03/19/20 05:55 [place] # (Auto) 0.9 K/mm3 (0.0-0.8) H 03/19/20 05:55 Eos # (Auto) 0.8 K/mm3 (0.0-0.4) H 03/19/20 05:55 Baso # (Auto) 0.2 K/mm3 (0.0-0.1) H 03/19/20 05:55 Add Manual Diff Complete 03/11/20 04:32 Total Counted 100 03/11/20 04:32 Seg Neutrophils % 73.7 % (40.0-70.0) H 03/19/20 05:55 Seg Neuts % (Manual) 81.0 % (40.0-70.0) H 03/11/20 04:32 Band Neutrophils % 1.0 % 03/11/20 04:32 Lymphocytes % (Manual) 8.0 % (13.4-35.0) L 03/11/20 04:32 Reactive Lymphs % (Man) 0 % 03/11/20 04:32 Monocytes % (Manual) 8.0 % (0.0-7.3) H 03/11/20 04:32 Eosinophils % (Manual) 1.0 % (0.0-4.3) 03/11/20 04:32 Basophils % (Manual) 1.0 % (0.0-1.8) 03/11/20 04:32 Metamyelocytes % 0 % 03/11/20 04:32 Myelocytes % 0 % 03/11/20 04:32 Promyelocytes % 0 % 03/11/20 04:32 Blast Cells % 0 % 03/11/20 04:32 Nucleated RBC % Not Reportable 03/11/20 04:32 Seg Neutrophils # 11.1 K/mm3 (1.8-7.7) H 03/19/20 05:55 Seg Neutrophils # Man 18.1 K/mm3 (1.8-7.7) H 03/11/20 04:32 Band Neutrophils # 0.2 K/mm3 03/11/20 04:32 Lymphocytes # (Manual) 1.8 K/mm3 (1.2-5.4) 03/11/20 04:32 Abs React Lymphs (Man) 0.0 K/mm3 03/11/20 04:32 Monocytes # (Manual) 1.8 K/mm3 (0.0-0.8) H 03/11/20 04:32 Eosinophils # (Manual) 0.2 K/mm3 (0.0-0.4) 03/11/20 04:32 Basophils # (Manual) 0.2 K/mm3 (0.0-0.1) H 03/11/20 04:32 Metamyelocytes # 0.0 K/mm3 03/11/20 04:32 Myelocytes # 0.0 K/mm3 03/11/20 04:32 Promyelocytes # 0.0 K/mm3 03/11/20 04:32 Blast Cells # 0.0 K/mm3 03/11/20 04:32 WBC Morphology Not Reportable 03/11/20 04:32 Hypersegmented Neuts Not Reportable 03/11/20 04:32 Hyposegmented Neuts Not Reportable 03/11/20 04:32 Hypogranular Neuts Not Reportable 03/11/20 04:32 Smudge Cells Not Reportable 03/11/20 04:32 Toxic Granulation Not Reportable 03/11/20 04:32 Toxic Vacuolation Not Reportable 03/11/20 04:32 Dohle Bodies Not Reportable 03/11/20 04:32 Pelger-Huet Anomaly Not Reportable 03/11/20 04:32 Maia Rods Not Reportable 03/11/20 04:32 Platelet Estimate Consistent w auto 03/11/20 04:32 Clumped Platelets Not Reportable 03/11/20 04:32 Plt Clumps, EDTA Not Reportable 03/11/20 04:32 Large Platelets Not Reportable 03/11/20 04:32 Giant Platelets Not Reportable 03/11/20 04:32 Platelet Satelliting Not Reportable 03/11/20 04:32 Plt Morphology Comment Not Reportable 03/11/20 04:32 RBC Morphology Not Reportable 03/11/20 04:32 Dimorphic RBCs Not Reportable 03/11/20 04:32 Polychromasia Not Reportable 03/11/20 04:32 Hypochromasia 1+ 03/11/20 04:32 Poikilocytosis Not Reportable 03/11/20 04:32 Anisocytosis 1+ 03/11/20 04:32 Microcytosis Not Reportable 03/11/20 04:32 Macrocytosis Not Reportable 03/11/20 04:32 Spherocytes Not Reportable 03/11/20 04:32 Pappenheimer Bodies Not Reportable 03/11/20 04:32 Sickle Cells Not Reportable 03/11/20 04:32 Target Cells Not Reportable 03/11/20 04:32 Tear Drop Cells Rare 03/11/20 04:32 Ovalocytes Few 03/11/20 04:32 Helmet Cells Not Reportable 03/11/20 04:[address] [place] Bodies Not Reportable 03/11/20 04:32 [place] Rings Not Reportable 03/11/20 04:32 Mirna Cells Not Reportable 03/11/20 04:32 Bite Cells Not Reportable 03/11/20 04:32 Crenated Cell Not Reportable 03/11/20 04:32 Elliptocytes Not Reportable 03/11/20 04:32 Acanthocytes (Spur) Not Reportable 03/11/20 04:32 Rouleaux Not Reportable 03/11/20 04:32 Hemoglobin C Crystals Not Reportable 03/11/20 04:32 Schistocytes Not Reportable 03/11/20 04:32 Malaria parasites Not Reportable 03/11/20 04:32 Edgardo Bodies Not Reportable 03/11/20 04:32 Hem Pathologist Commnt No 03/11/20 04:32 PT 14.1 Sec. (12.2-14.9) 03/11/20 07:31 INR 1.07 (0.87-1.13) 03/11/20 07:31 APTT 32.0 Sec. (24.2-36.6) 03/11/20 07:31 ABG pH 7.420 pH Units (7.350-7.450) 03/15/20 13:20 POC ABG pCO2 40.5 mmHg (32.0-48.0) 03/13/20 14:23 ABG pCO2 45.5 mm Hg 03/15/20 13:20 POC ABG pO2 75.1 mmHg (83-108) L 03/13/20 14:23 ABG pO2 85.8 mm Hg (80.0-90.0) 03/15/20 13:20 POC ABG HCO3 28.3 03/13/20 14:23 ABG HCO3 28.9 mmol/L (20.0-26.0) H 03/15/20 13:20 ABG O2 Saturation 97.1 % (95.0-99.0) 03/15/20 13:20 ABG O2 Content 11.6 (0.0-44) 03/15/20 13:20 POC ABG Base Excess 4.2 03/13/20 14:23 ABG Base Excess 3.9 mmol/L (-2.0-3.0) H 03/15/20 13:20 ABG Hemoglobin 8.6 gm/dl (12.0-16.0) L 03/15/20 13:20 ABG Oxyhemoglobin 90.5 (94-98) L 03/06/20 04:41 ABG Carboxyhemoglobin 1.7 % (0.0-5.0) 03/15/20 13:20 ABG Methemoglobin 0.5 % (0.0-1.5) 03/15/20 13:20 ABG Sodium 135.9 mmol/L (136.0-145.0) L 03/13/20 14:23 ABG Potassium 3.8 mmol/L (3.40-4.50) 03/13/20 14:23 ABG Chloride 98.0 mmol/L (98-107) 03/13/20 14:23 ABG Glucose 89 mg/dL (65-95) 03/13/20 14:23 Oxyhemoglobin 94.9 % (95.0-99.0) L 03/15/20 13:20 Carboxyhemoglobin 1 (0.5-1.5) 03/06/20 04:41 FiO2 30 % 03/15/20 13:20 Sodium 137 mmol/L (137-145) 03/22/20 04:21 Potassium 4.3 mmol/L (3.6-5.0) 03/22/20 04:21 Chloride 94.7 mmol/L (98-107) L 03/22/20 04:21 Carbon Dioxide 24 mmol/L (22-30) 03/22/20 04:21 Anion Gap 23 mmol/L 03/22/20 04:21 BUN 33 mg/dL (7-17) H 03/22/20 04:21 Creatinine 4.3 mg/dL (0.6-1.2) H 03/22/20 04:21 Estimated GFR 14 ml/min 03/22/20 04:21 BUN/Creatinine Ratio 8 % 03/22/20 04:21 Glucose 80 mg/dL (65-100) 03/22/20 04:21 POC Glucose 81 (70-105) 03/20/20 11:58 Lactic Acid 0.90 mmol/L (0.7-2.0) 02/27/20 19:33 Calcium 10.1 mg/dL (8.4-10.2) 03/22/20 04:21 Phosphorus 6.10 mg/dL (2.5-4.5) H 03/01/20 04:37 Magnesium 2.00 mg/dL (1.7-2.3) 03/07/20 05:03 Total Bilirubin 0.30 mg/dL (0.1-1.2) 03/16/20 04:52 Direct Bilirubin 0.6 mg/dL (0-0.2) H 03/05/20 06:00 Indirect Bilirubin 0.3 mg/dL 03/05/20 06:00 AST 30 units/L (5-40) 03/16/20 04:52 ALT 14 units/L (7-56) 03/16/20 04:52 Alkaline Phosphatase 75 units/L (35-129) 03/16/20 04:52 Troponin T 0.085 ng/mL (0.00-0.029) H 03/11/20 14:31 C-Reactive Protein 36.50 mg/dL (0.00-1.30) H 03/01/20 11:06 Serum Total Protein 6.3 g/dL (6.1-8.1) 02/26/20 04:39 Total Protein 7.6 g/dL (6.3-8.2) 03/16/20 04:52 Albumin 2.7 g/dL (3.9-5) L 03/16/20 04:52 Albumin/Globulin Ratio 0.6 % 03/16/20 04:52 Pwfab-8-Nibcuvhwq 0.7 g/dL (0.2-0.3) H 02/26/20 04:39 Gaait-0-Dhpvhsqya 0.8 g/dL (0.5-0.9) 02/26/20 04:39 Beta Globulins 0.4 g/dL (0.2-0.5) 02/26/20 04:39 Gamma Globulins 1.2 g/dL (0.8-1.7) 02/26/20 04:39 Abnorm Protein Band 1 see below 02/26/20 04:39 PEP Interpretation see below H 02/26/20 04:39 Triglycerides 247 mg/dL (2-149) H 03/11/20 14:31 Cholesterol 158 mg/dL (50-199) 03/11/20 14:31 LDL Cholesterol Direct 80 mg/dL (50-130) 03/11/20 14:31 HDL Cholesterol 28 mg/dL (40-59) L 03/11/20 14:31 Cholesterol/HDL Ratio 5.64 % 03/11/20 14:31 Lipase 72 units/L (13-60) H 03/04/20 19:00 HCG, Qual Negative (Negative) 02/24/20 02:53 PTH Intact 911.3 pg/mL (15-65) H 02/26/20 08:15 Arterial Blood Glucose 89 mg/dL (65-95) 03/13/20 14:23 Arterial Blood Ionized Calcium 4.5 mg/dL (4.6-5.3) L 03/13/20 14:23 Urine Color Yellow (Yellow) 02/24/20 Unknown Urine Turbidity Clear (Clear) 02/24/20 Unknown Urine pH 6.0 (5.0-7.0) 02/24/20 Unknown Ur Specific [place] 1.020 (1.003-1.030) 02/24/20 Unknown Urine Protein >500 mg/dL (Negative) 02/24/20 Unknown Urine Glucose (UA) 50 mg/dL (Negative) 02/24/20 Unknown Urine Ketones Neg mg/dL (Negative) 02/24/20 Unknown Urine Blood Lg (Negative) 02/24/20 Unknown Urine Nitrite Neg (Negative) 02/24/20 Unknown Urine Bilirubin Neg (Negative) 02/24/20 Unknown Urine Urobilinogen < 2.0 mg/dL (<2.0) 02/24/20 Unknown Ur Leukocyte Esterase Neg (Negative) 02/24/20 Unknown Urine WBC (Auto) 11.0 /HPF (0.0-6.0) H 02/24/20 Unknown Urine RBC (Auto) 149.0 /HPF (0.0-6.0) 02/24/20 Unknown U Epithel Cells (Auto) 5.0 /HPF (0-13.0) 02/24/20 Unknown Urine Bacteria (Auto) 1+ /HPF (Negative) 02/24/20 Unknown Urine Mucus Few /HPF 02/24/20 Unknown Urine Total Volume 115 ml 03/18/20 14:00 Urine Creatinine 278.4 mg/dL (0.1-20.0) H 03/18/20 14:00 Ur Creatinine 24 Hour 0.3 (0.8-2.8) L 03/18/20 14:00 Protein/Creatinin Ratio 0.93 02/25/20 22:55 Urine Total Protein 150 mg/dL (5-11.8) H 02/25/20 22:55 ZINA Screen Positive (Negative) H 02/26/20 04:39 Proteinase 3 (PR3) Ab <1.0 AI (<1.0) 02/26/20 04:39 Myeloperoxidase Ab <1.0 AI (<1.0) 02/26/20 04:39 Double Strand DNA Ab See scanned result 03/06/20 14:46 Complement C3 153 mg/dL (83-193) 02/26/20 04:39 Complement C4 35 mg/dL (15-57) 02/26/20 04:39 Coronavirus (PCR) Negative (Negative) 03/09/20 09:12 Hepatitis A IgM Ab Non-reactive (NonReactive) 03/03/20 12:34 Hep Bs Antigen Non-reactive (Negative) 03/03/20 12:34 Hep B Core IgM Ab Non-reactive (NonReactive) 03/03/20 12:34 Hepatitis C Antibody Non-reactive (NonReactive) 03/03/20 12:34 Blood Type AB POSITIVE 03/13/20 08:45 Antibody Screen Negative 03/13/20 08:45 Crossmatch See Detail 03/13/20 08:45 - Diagnostic Impressions Diagnostic Impressions: Echocardiogram 02/26/20 09:11 Transthoracic Echocardiogram Indication: Cardiomegaly BP: 149/92 HR: 122 Conclusions *Global left ventricular systolic function is normal. *The estimated ejection fraction is 60-65%. *Moderate to severe concentric left ventricular hypertrophy is observed. *The left atrium is mild to moderately dilated. *The aortic valve leaflets are moderately thickened. *A mean gradient of 22.39 mmHg across the outflow tract is likely not due to but hyperdynamic flow and LVH. *There is trace tricuspid regurgitation. Findings Left Ventricle: The left ventricular chamber size is normal. Moderate to severe concentric left ventricular hypertrophy is observed. Global left ventricular systolic function is normal. The estimated ejection fraction is 60-65%. Left Atrium: The left atrium is mild to moderately dilated. Right Ventricle: The right ventricular cavity size is normal. The right ventricular global systolic function is normal. Right Atrium: The right atrial cavity size is normal. Aortic Valve: The aortic valve leaflets are moderately thickened. There is no evidence of aortic regurgitation. The mean gradient of the aortic valve is 22.39 mmHg. Mitral Valve: The mitral valve leaflets are mildly thickened. There is trace of mitral regurgitation. There is no evidence of mitral stenosis. Tricuspid Valve: There is trace tricuspid regurgitation. No pulmonary hypertension is noted. Pulmonic Valve: There is trace pulmonic regurgitation. Pericardium: There is no pericardial effusion. Aorta: There is no dilatation of the ascending aorta. There is no dilatation of the aortic root. Venous: The inferior vena cava appears normal in size. Measurements Chambers 2D Name Value Normal Range IVSd (2D) 1.8 cm (0.6 - 1.1) LVPWd (2D) 1.74 cm (0.6 - 1.1) LVIDd (2D) 4.57 cm (3.7 - 5.6) LVIDs (2D) 2.73 cm (2 - 3.8) LV FS (2D) 40.27 % - EF Teichholz (2D) 71.04 % - Ao root diameter (2D) 2.79 cm (2 - 3.7) Volumes/Mass Name Value Normal Range LA ESV SP 4CH (A/L) 54.18 ml - LA ESV SP 2CH (A/L) 61.84 ml - LA ESV BP (A/L) 58.1 ml - LA ESV BP (A/L) index 30.74 ml/m2 - LA ESV SP 4CH (MOD) 52.89 ml - LA ESV SP 2CH (MOD) 60.65 ml - LA ESV BP (MOD) 56.77 ml - LA ESV BP (MOD) index 30.04 ml/m2 - LV EDV SP 4CH (MOD) 164.2 ml - LV ESV SP 4CH (MOD) 58.04 ml - EF SP 4CH (MOD) 64.65 % - Diastolic/Systolic Function Name Value Normal Range MV E-wave Vmax 1.38 m/sec - MV deceleration time 92.78 msec - MV A-wave Vmax 1.44 m/sec - MV E:A ratio 0.95 ratio - Aortic Valve Name Value Normal Range AV Vmax 3.08 m/sec - AV VTI 36.74 cm - AV peak gradient 37.98 mmHg - AV mean gradient 22.39 mmHg - LVOT diameter 2.01 cm - LVOT Vmax 2.45 m/sec - LVOT VTI 29.85 cm - LVOT peak gradient 24.04 mmHg - LVOT mean gradient 11.11 mmHg - SV LVOT 94.73 ml - JADA (continuity Vmax) 2.52 cm2 - JADA (continuity VTI) 2.58 cm2 - Ascending Ao 2.64 cm - Mitral Valve Name Value Normal Range MV PHT 37.88 msec - MVA (PHT) 5.81 cm2 - Tricuspid Valve Name Value Normal Range IVC diameter 1.93 cm (1.2 - 2.3) Pulmonic Valve/Qp:Qs Name Value Normal Range PV Vmax 2.83 m/sec - PV VTI 45.88 cm - PV peak gradient 32.06 mmHg - PV mean gradient 16.11 mmHg - ME end-diastolic Vmax 0.81 m/sec - RVOT Vmax 1.82 m/sec - RVOT VTI 25.12 cm - RVOT peak gradient 13.3 mmHg - Franks/IV: Voiding Method Condom Catheter IV Catheter Type [Right VAS Cath Internal Jugular] IV Catheter Type [Left Upper INT / Saline Lock arm] IV Catheter Type [Right Upper INT / Saline Lock arm] IV Catheter Type [Right INT / Saline Lock Forearm] IV Catheter Type [Right Wrist] Peripheral IV IV Catheter Type [Right Peripheral IV Antecubital] Active Medications - Current Medications Current Medications: Generic Name Dose Route Start Last Admin Trade Name Freq PRN Reason Stop Dose Admin Acetaminophen 650 mg 02/26/20 16:23 03/14/20 22:03 Tylenol PO 650 mg Q4H PRN Administration Pain, Mild (1-3)/ Temp >100. Albuterol 2.5 mg 02/27/20 17:55 Proventil IH Q4HRT PRN Shortness Of Breath Amlodipine Besylate 10 mg 02/28/20 10:00 03/21/20 10:53 Amlodipine PO 10 mg QDAY INDU Administration Aspirin 325 mg 03/15/20 11:00 03/21/20 10:53 Aspirin PO 325 mg QDAY INDU Administration Dextrose 50 ml 02/29/20 08:00 03/01/20 00:20 D50w (25gm) Syringe IV 10 ml Q30MIN PRN Administration HYPOGLYCEMIA Protocol Epoetin Prosper 10,000 unit 03/12/20 10:00 03/20/20 16:00 Procrit IV 10,000 unit NIKOLAY PRN Administration hemodialysis Heparin Sodium (Porcine) 5,000 unit 03/11/20 14:00 03/22/20 05:11 Heparin SUB-Q Not Given Q8HR [facility] Hydralazine HCl 50 mg 03/20/20 16:00 03/22/20 05:11 Apresoline PO Not Given Q8HR INDU Hydrophilic Ointment 1 applic 03/11/20 06:01 Vaseline Lip Therapy TP Q2HR PRN Dry Lips Sodium Chloride 100 mls @ 999 mls/hr 03/08/20 17:05 Nacl 0.9% IV NIKOLAY PRN Hypotension Labetalol HCl 10 mg 02/28/20 09:00 03/11/20 03:04 Labetalol IV 10 mg Q4H PRN Administration Hypertension Metoprolol Tartrate 25 mg 02/28/20 10:00 03/21/20 21:21 Metoprolol PO 25 mg BID INDU Administration Morphine Sulfate 2 mg 03/11/20 05:13 03/20/20 21:22 Morphine IV 2 mg Q4H PRN Administration Pain, Moderate (4-6) Multi-Ingred Cream/Lotion/Oil/Oint 1 applic 10/07/20 06:01 Artificial Tears Ophth Oint OU Q4HR PRN Dry Eye(s) Nitroglycerin 0.4 mg 03/11/20 05:14 Nitrostat SL .Q5MIN PRN Chest Pain Ondansetron HCl 4 mg 02/24/20 06:45 02/25/20 23:33 Zofran IV 4 mg Q8H PRN Administration Nausea And Vomiting Pantoprazole Sodium 40 mg 03/16/20 11:00 03/21/20 10:53 Protonix PO 40 mg QDAC INDU Administration Quetiapine Fumarate 100 mg 03/16/20 22:00 03/21/20 21:21 Seroquel PO 100 mg QHS INDU Administration Sodium Chloride 10 ml 02/24/20 10:00 03/21/20 21:25 Sodium Chloride Flush Syringe 10 Ml IV 10 ml BID INDU Administration Sodium Chloride 10 ml 02/24/20 06:45 03/10/20 09:06 Sodium Chloride Flush Syringe 10 Ml IV 10 ml PRN PRN Administration LINE FLUSH Nutrition/Malnutrition Assess - Dietary Evaluation Nutrition/Malnutrition Findings: Nutrition Notes Start: 02/24/20 13:42 Freq: Status: Active Protocol: Document 03/19/20 11:48 BRANDI (Rec: 03/19/20 12:04 BRANDI [id number]) Co-Sign 03/19/20 11:48 MK Nutrition Notes Need for Assessment generated from: Education Initial or Follow up Reassessment Current Diagnosis Acute Kidney Injury,CKD (stage V CKD),Sepsis,Hypertension, Respiratory Failure, Hyperlipidemia Other Pertinent Diagnosis HD, acute pancreatitis Current Diet Renal Labs/Tests BUN 28 Cr 3.5 BG 80 Pertinent Medications Reviewed Height 5 ft 1 in Weight 91 kg Munith Body Weight (kg) 47.72 BMI 37.9 Weight Status Obese Subjective/Other Information F/u intakes. Pt reported eating mostly fruit from tray and drinking juices. Wants sandwiches. Not receiving ONS. Discussed the importance of protein with HD, a healthy renal diet, and encouraged her to f/u with out-patient HD RD . Noted MD signed off on pancreatitis. Percent of energy/protein needs met: 25%/0% Burn Absent Trauma Absent GI Symptoms None Current % PO Negligible Minimum of two criteria No Fluid Accumulation Moderate to Severe (severe) #2 Nutrition Diagnosis Inadequate oral intake As Evidenced by Signs and Symptoms pt mostly drinking fluids and eating fruit. Diagnosis Progress(for reassessment Continues documentation) #1 Nutrition Diagnosis Food and nutrition-related knowledge deficit As Evidenced by Signs and Symptoms Pt had questions about the HD diet. Diagnosis Progress(for reassessment Resolved documentation) Is patient on ventilator? Yes Is Patient Ambulatory and/or Out of Bed No REE-([place]-St. Jeor-confined to bed) [phone] Calculation Used for Recommendations [place] Jeor Additional Notes Pro: 83-104g (1.2-1.5g/kg AdBW 69kg) Fluid: 1ml/kcal Nutrition Intervention Change Diet Order: Continue renal diet d/c mechanical soft Add Supplement/Snack (indicate name/kcal Nepro daily /protein ) Provides kCal: 425 Provides Protein (gm) 19 Teaching Recipient Patient Learning Readiness Good Teaching Methods Discussion,Handout Response to Teaching Verbalize understanding Education Handouts Provided Renal MyPlate Barriers to Learning No Barriers RD phone number provided Yes Patient aware of follow up options Yes Goal #1 Meet at least 75% of energy and protein needs. Anticipated Discharge Needs: Renal diet Follow-Up By: 03/24/20 Additional Comments F/u intakes, ONS acceptance, and dry wt
[2020-03-22] MEDS: ASPIRIN 325 MG TAB PO SCH (10:56)
[2020-03-22] MEDS: NIFEdipine XL 60 MG TAB PO SCH ×2 (10:56→21:56)
[2020-03-22] MEDS: hydrALAZINE 100 MG TAB PO SCH ×3 (10:56→21:57)
[2020-03-22] MEDS: PANTOPRAZOLE 40 MG TAB PO SCH (10:56)
[2020-03-22] MEDS: METOPROLOL TARTRATE 25 MG TAB PO SCH ×2 (10:56→21:56)
--- NOTE | 2020-03-22 12:49 | Progress Note ---
Assessment and Plan Assessment * ESRD --Serologies: ANCA, C3, C4 - negative; ZINA positive * Acute hypoxic respiratory failure * Chest pain --Elevated troponin * Metabolic acidosis * Acute severe pancreatitis * Fever * Accelerated hypertension - resolved * Anemia Plan: * Continue HD MWF schedule for now- UF as tolerated * Monitor SCr trend and UOP for evidence of recovery - Uncertain re: renal prognosis. Patient reports 9 year hx of hypertension, untreated at times. She reports that she was not under the consistent care of a healthcare provider. * Cardiology recommendations reviewed - conservative cardiac management for now * GI recommendations reviewed * Continue antiHTN medications * Abx per ID * Hold ACEi for now * Epogen TIW prn * Dose medications for renal function * Avoid potential nephrotoxins * follow up 24hr crcl noted, 115ml of UPO, will need perm cath placment and HD unit placement Subjective Date of service: 03/22/20 Principal diagnosis: HTNsive urgency; Morbid obesity; Ac. pancreatitis; Abdominal pain Interval history: resting in bed today Objective - Exam Narrative Exam: General appearance: well-developed, well-nourished EENT: ATNC Respiratory: Present: Clear to Ascultation Cardiology: regular, S1S2 Gastrointestinal: normal, no tenderness, distended Integumentary: no rash, warm and dry Musculoskeletal: other (no edema) Psychiatric: cooperative - Vital Signs Vital signs: Vital Signs - 12hr 03/22/20 03/22/20 03:47 10:00 Temperature 98.9 F Pulse Rate 97 H 93 H Respiratory 18 Rate Blood Pressure 175/103 O2 Sat by Pulse 97 Oximetry - Lab 03/19/20 05:55 03/22/20 04:21 Most recent lab results ABG pH 7.420 pH Units (7.350-7.450) 03/15/20 13:20 ABG pCO2 45.5 mm Hg 03/15/20 13:20 ABG pO2 85.8 mm Hg (80.0-90.0) 03/15/20 13:20 ABG HCO3 28.9 mmol/L (20.0-26.0) H 03/15/20 13:20 ABG O2 Saturation 97.1 % (95.0-99.0) 03/15/20 13:20 Calcium 10.1 mg/dL (8.4-10.2) 03/22/20 04:21 Phosphorus 6.10 mg/dL (2.5-4.5) H 03/01/20 04:37 Magnesium 2.00 mg/dL (1.7-2.3) 03/07/20 05:03 Urine Creatinine 278.4 mg/dL (0.1-20.0) H 03/18/20 14:00 Urine Total Protein 150 mg/dL (5-11.8) H 02/25/20 22:55 Medications & Allergies - Medications Allergies/Adverse Reactions: Allergies No Known Allergies Allergy (Unverified 09/05/19 10:15) Home Medications: Home Medications Medication Instructions Recorded Confirmed Last Taken Type Amlodipine Besylate [Norvasc] 10 mg PO DAILY 09/05/19 02/24/20 09/04/19 History Furosemide [Lasix] 20 mg PO QDAY #30 tablet 09/05/19 02/24/20 Unknown Rx Lisinopril [Zestril] 5 mg PO DAILY #30 tablet 09/05/19 02/24/20 Unknown Rx Metoprolol [Lopressor TAB] 25 mg PO BID #60 tablet 09/05/19 02/24/20 Unknown Rx Active Medications: Generic Name Dose Route Start Last Admin Trade Name Freq PRN Reason Stop Dose Admin Acetaminophen 650 mg 02/26/20 16:23 03/14/20 22:03 Tylenol PO 650 mg Q4H PRN Administration Pain, Mild (1-3)/ Temp >100. Albuterol 2.5 mg 02/27/20 17:55 Proventil IH Q4HRT PRN Shortness Of Breath Aspirin 325 mg 03/15/20 11:00 03/22/20 10:56 Aspirin PO 325 mg QDAY INDU Administration Dextrose 50 ml 02/29/20 08:00 03/01/20 00:20 D50w (25gm) Syringe IV 10 ml Q30MIN PRN Administration HYPOGLYCEMIA Protocol Epoetin Prosper 10,000 unit 03/12/20 10:00 03/20/20 16:00 Procrit IV 10,000 unit NIKOLAY PRN Administration hemodialysis Heparin Sodium (Porcine) 5,000 unit 03/11/20 14:00 03/22/20 05:11 Heparin SUB-Q Not Given Q8HR [facility] Hydralazine HCl 100 mg 03/22/20 08:30 03/22/20 10:56 Apresoline PO 100 mg Q8HR INDU Administration Hydrophilic Ointment 1 applic 03/11/20 06:01 Vaseline Lip Therapy TP Q2HR PRN Dry Lips Sodium Chloride 100 mls @ 999 mls/hr 03/08/20 17:05 Nacl 0.9% IV NIKOLAY PRN Hypotension Labetalol HCl 10 mg 02/28/20 09:00 03/11/20 03:04 Labetalol IV 10 mg Q4H PRN Administration Hypertension Metoprolol Tartrate 25 mg 02/28/20 10:00 03/22/20 10:56 Metoprolol PO 25 mg BID INDU Administration Morphine Sulfate 2 mg 03/11/20 05:13 03/20/20 21:22 Morphine IV 2 mg Q4H PRN Administration Pain, Moderate (4-6) Multi-Ingred Cream/Lotion/Oil/Oint 1 applic 03/11/20 06:01 Artificial Tears Ophth Oint OU Q4HR PRN Dry Eye(s) Nifedipine 60 mg 03/22/20 10:00 03/22/20 10:56 Procardia Xl PO 60 mg Q12HR INDU Administration Nitroglycerin 0.4 mg 03/11/20 05:14 Nitrostat SL .Q5MIN PRN Chest Pain Ondansetron HCl 4 mg 02/24/20 06:45 02/25/20 23:33 Zofran IV 4 mg Q8H PRN Administration Nausea And Vomiting Pantoprazole Sodium 40 mg 03/16/20 11:00 03/22/20 10:56 Protonix PO 40 mg QDAC INDU Administration Quetiapine Fumarate 100 mg 03/16/20 22:00 03/21/20 21:21 Seroquel PO 100 mg QHS INDU Administration Sodium Chloride 10 ml 02/24/20 10:00 03/22/20 11:00 Sodium Chloride Flush Syringe 10 Ml IV 10 ml BID INDU Administration Sodium Chloride 10 ml 02/24/20 06:45 03/10/20 09:06 Sodium Chloride Flush Syringe 10 Ml IV 10 ml PRN PRN Administration LINE FLUSH
--- NOTE | 2020-03-22 20:45 | Progress Note ---
Assessment and Plan Patient awake. On room air. O2 saturation 96%. No complaint of chest pain, shortness of breath or cough. Patient admitted for pancreatitis. Patient initially complained dyspnea. No dyspnea now. Patient afebrile. Has leukocytosis. Patient scheduled for AV graft for dialysis tomorrow. - Patient Problems (1) Dyspnea Current Visit: Yes Status: Acute Plan to address problem: Improved. No complaint of dyspnea to day. O2 saturation 97% on room air. (2) Acute pancreatitis Current Visit: Yes Status: Acute Plan to address problem: Management as per primary care. (3) Hypertensive urgency Current Visit: Yes Status: Acute Plan to address problem: Management as per primary care. (4) Renal failure Current Visit: Yes Status: Acute Plan to address problem: Patient receiving dialysis. Management as per nephrology. Subjective Date of service: 03/22/20 Principal diagnosis: HTNsive urgency; Morbid obesity; Ac. pancreatitis; Abdominal pain Interval history: Patient awake. On room air. O2 saturation 96%. No complaint of chest pain, shortness of breath or cough. Patient admitted for pancreatitis. Patient initially complained dyspnea. No dyspnea now. Patient afebrile. Has leukocytosis. Patient scheduled for AV graft for dialysis tomorrow. Objective Vital Signs - 12hr 03/22/20 03/22/20 03/22/20 10:00 11:03 15:47 Temperature 97.9 F 97.9 F Pulse Rate 93 H 99 H 94 H Respiratory 18 18 Rate Blood Pressure 149/95 139/89 O2 Sat by Pulse 95 97 Oximetry 03/22/20 03/22/20 19:37 20:12 Temperature 99.3 F Pulse Rate 106 H 94 H Respiratory 20 Rate Blood Pressure 166/103 O2 Sat by Pulse 96 Oximetry Constitutional: no acute distress, alert Eyes: non-icteric ENT: oropharynx moist, other (Right IJ trialysis catheter) Neck: supple, no lymphadenopathy, no JVD, other (RIJ HD catheter) Effort: normal Ascultation: Bilateral: diminished breath sounds (at the bases) Percussion: Bilateral: not dull Cardiovascular: regular rate and rhythm, other (S1,S2) Gastrointestinal: normoactive bowel sounds, hypoactive bowel sounds, soft, non-tender, non-distended Integumentary: normal Extremities: no cyanosis, no edema, pink and warm, pulses normal Neurologic: normal mental status, non-focal exam, pupils equal and round, CN II- XII normal, motor strength normal and Psychiatric: tearful CBC and BMP: 03/19/20 05:55 03/22/20 04:21 ABG, PT/INR, D-dimer: ABG ABG pH 7.420 pH Units (7.350-7.450) 03/15/20 13:20 POC ABG pCO2 40.5 mmHg (32.0-48.0) 03/13/20 14:23 ABG pCO2 45.5 mm Hg 03/15/20 13:20 POC ABG pO2 75.1 mmHg (83-108) L 03/13/20 14:23 ABG pO2 85.8 mm Hg (80.0-90.0) 03/15/20 13:20 POC ABG HCO3 28.3 03/13/20 14:23 ABG O2 Saturation 97.1 % (95.0-99.0) 03/15/20 13:20 PT/INR, D-dimer PT 14.1 Sec. (12.2-14.9) 03/11/20 07:31 INR 1.07 (0.87-1.13) 03/11/20 07:31 Abnormal lab findings: Abnormal Labs 02/24/20 02/24/20 02/24/20 02:53 02:53 Unknown WBC 12.7 H Hgb 10.0 L RBC Hct MCV 70 L MCH 22 L RDW 17.9 H Plt Count 458 H Lymph % (Auto) 8.9 L Lymph # 1.1 L [place] % (Auto) [place] # Eos % (Auto) Lymph # (Auto) [place] # (Auto) Eos # (Auto) Seg Neutrophils % 84.2 H Baso # (Auto) Seg Neutrophils # 10.7 H Seg Neuts % (Manual) Lymphocytes % (Manual) Monocytes % (Manual) Nucleated RBC % Seg Neutrophils # Man Lymphocytes # (Manual) Monocytes # (Manual) Eosinophils # (Manual) Basophils # (Manual) ABG pH POC ABG pCO2 POC ABG pO2 ABG pO2 ABG HCO3 ABG O2 Saturation ABG Base Excess ABG Hemoglobin ABG Oxyhemoglobin ABG Sodium ABG Glucose Oxyhemoglobin Sodium Potassium Chloride Carbon Dioxide BUN 27 H Creatinine 1.7 H Glucose 118 H POC Glucose Calcium Phosphorus Magnesium Direct Bilirubin AST Alkaline Phosphatase Albumin Troponin T C-Reactive Protein Wysex-2-Clsfvigks PEP Interpretation Triglycerides Lipase 232 H HDL Cholesterol PTH Intact Arterial Blood Glucose Arterial Blood Ionized Calcium Urine WBC (Auto) 11.0 H Urine Creatinine Ur Creatinine 24 Hour Urine Total Protein ZINA Screen Crossmatch 02/25/20 02/25/20 02/25/20 00:03 03:49 03:49 WBC 29.1 H Hgb 9.4 L RBC Hct 30.2 L MCV 71 L MCH 22 L RDW 18.3 H Plt Count 525 H Lymph % (Auto) 3.4 L Lymph # 1.0 L [place] % (Auto) [place] # 1.0 H Eos % (Auto) Lymph # (Auto) [place] # (Auto) Eos # (Auto) Seg Neutrophils % Baso # (Auto) Seg Neutrophils # 26.4 H Seg Neuts % (Manual) Lymphocytes % (Manual) Monocytes % (Manual) Nucleated RBC % Seg Neutrophils # Man Lymphocytes # (Manual) Monocytes # (Manual) Eosinophils # (Manual) Basophils # (Manual) ABG pH POC ABG pCO2 POC ABG pO2 ABG pO2 ABG HCO3 ABG O2 Saturation ABG Base Excess ABG Hemoglobin ABG Oxyhemoglobin ABG Sodium ABG Glucose Oxyhemoglobin Sodium Potassium Chloride Carbon Dioxide BUN Creatinine Glucose POC Glucose 126 H Calcium Phosphorus Magnesium Direct Bilirubin AST Alkaline Phosphatase Albumin Troponin T C-Reactive Protein Fyfua-8-Cdiridwqx PEP Interpretation Triglycerides Lipase 1486 H HDL Cholesterol PTH Intact Arterial Blood Glucose Arterial Blood Ionized Calcium Urine WBC (Auto) Urine Creatinine Ur Creatinine 24 Hour Urine Total Protein ZINA Screen Crossmatch 02/25/20 02/25/20 02/25/20 03:49 05:55 22:55 WBC Hgb RBC Hct MCV MCH RDW Plt Count Lymph % (Auto) Lymph # [place] % (Auto) [place] # Eos % (Auto) Lymph # (Auto) [place] # (Auto) Eos # (Auto) Seg Neutrophils % Baso # (Auto) Seg Neutrophils # Seg Neuts % (Manual) Lymphocytes % (Manual) Monocytes % (Manual) Nucleated RBC % Seg Neutrophils # Man Lymphocytes # (Manual) Monocytes # (Manual) Eosinophils # (Manual) Basophils # (Manual) ABG pH POC ABG pCO2 POC ABG pO2 ABG pO2 ABG HCO3 ABG O2 Saturation ABG Base Excess ABG Hemoglobin ABG Oxyhemoglobin ABG Sodium ABG Glucose Oxyhemoglobin Sodium 136 L Potassium Chloride 97.9 L Carbon Dioxide 21 L BUN 39 H Creatinine 3.0 H D Glucose 118 H POC Glucose 124 H Calcium Phosphorus Magnesium Direct Bilirubin AST Alkaline Phosphatase Albumin 3.6 L Troponin T C-Reactive Protein Isats-8-Cyoqjcpkq PEP Interpretation Triglycerides Lipase HDL Cholesterol PTH Intact Arterial Blood Glucose Arterial Blood Ionized Calcium Urine WBC (Auto) Urine Creatinine 161.0 H Ur Creatinine 24 Hour Urine Total Protein 150 H ZINA Screen Crossmatch 02/26/20 02/26/20 02/26/20 04:39 04:39 04:39 WBC 30.3 H Hgb 9.1 L RBC Hct 29.8 L MCV 71 L MCH 22 L RDW 18.2 H Plt Count 530 H Lymph % (Auto) Lymph # [place] % (Auto) [place] # Eos % (Auto) Lymph # (Auto) [place] # (Auto) Eos # (Auto) Seg Neutrophils % Baso # (Auto) Seg Neutrophils # Seg Neuts % (Manual) Lymphocytes % (Manual) Monocytes % (Manual) Nucleated RBC % Seg Neutrophils # Man Lymphocytes # (Manual) Monocytes # (Manual) Eosinophils # (Manual) Basophils # (Manual) ABG pH POC ABG pCO2 POC ABG pO2 ABG pO2 ABG HCO3 ABG O2 Saturation ABG Base Excess ABG Hemoglobin ABG Oxyhemoglobin ABG Sodium ABG Glucose Oxyhemoglobin Sodium Potassium Chloride Carbon Dioxide 19 L BUN 44 H Creatinine 3.1 H Glucose 106 H POC Glucose Calcium 8.1 L Phosphorus Magnesium Direct Bilirubin AST Alkaline Phosphatase Albumin Troponin T C-Reactive Protein Mtiyw-0-Ykaororli PEP Interpretation Triglycerides Lipase 540 H HDL Cholesterol PTH Intact Arterial Blood Glucose Arterial Blood Ionized Calcium Urine WBC (Auto) Urine Creatinine Ur Creatinine 24 Hour Urine Total Protein ZINA Screen Positive H Crossmatch 02/26/20 02/26/20 02/26/20 04:39 08:15 12:14 WBC Hgb RBC Hct MCV MCH RDW Plt Count Lymph % (Auto) Lymph # [place] % (Auto) [place] # Eos % (Auto) Lymph # (Auto) [place] # (Auto) Eos # (Auto) Seg Neutrophils % Baso # (Auto) Seg Neutrophils # Seg Neuts % (Manual) Lymphocytes % (Manual) Monocytes % (Manual) Nucleated RBC % Seg Neutrophils # Man Lymphocytes # (Manual) Monocytes # (Manual) Eosinophils # (Manual) Basophils # (Manual) ABG pH POC ABG pCO2 POC ABG pO2 ABG pO2 ABG HCO3 ABG O2 Saturation ABG Base Excess ABG Hemoglobin ABG Oxyhemoglobin ABG Sodium ABG Glucose Oxyhemoglobin Sodium Potassium Chloride Carbon Dioxide BUN Creatinine Glucose POC Glucose 112 H Calcium Phosphorus Magnesium Direct Bilirubin AST Alkaline Phosphatase Albumin 2.8 L Troponin T C-Reactive Protein Chunc-7-Egfjpioai 0.7 H PEP Interpretation see below H Triglycerides Lipase HDL Cholesterol PTH Intact 911.3 H Arterial Blood Glucose Arterial Blood Ionized Calcium Urine WBC (Auto) Urine Creatinine Ur Creatinine 24 Hour Urine Total Protein ZINA Screen Crossmatch 02/27/20 02/27/20 02/27/20 04:18 04:18 04:18 WBC 26.8 H Hgb 7.9 L RBC Hct 26.3 L MCV 70 L MCH 21 L RDW 18.0 H Plt Count 513 H Lymph % (Auto) Lymph # [place] % (Auto) [place] # Eos % (Auto) Lymph # (Auto) [place] # (Auto) Eos # (Auto) Seg Neutrophils % Baso # (Auto) Seg Neutrophils # Seg Neuts % (Manual) Lymphocytes % (Manual) Monocytes % (Manual) Nucleated RBC % Seg Neutrophils # Man Lymphocytes # (Manual) Monocytes # (Manual) Eosinophils # (Manual) Basophils # (Manual) ABG pH POC ABG pCO2 POC ABG pO2 ABG pO2 ABG HCO3 ABG O2 Saturation ABG Base Excess ABG Hemoglobin ABG Oxyhemoglobin ABG Sodium ABG Glucose Oxyhemoglobin Sodium 135 L 135 L Potassium Chloride Carbon Dioxide 15 L 16 L BUN 50 H 51 H Creatinine 3.4 H 3.4 H Glucose POC Glucose Calcium 7.4 L 7.5 L Phosphorus Magnesium Direct Bilirubin AST Alkaline Phosphatase Albumin 3.0 L Troponin T C-Reactive Protein 37.30 H Nflgg-1-Gqhjksomv PEP Interpretation Triglycerides Lipase 177 H HDL Cholesterol PTH Intact Arterial Blood Glucose Arterial Blood Ionized Calcium Urine WBC (Auto) Urine Creatinine Ur Creatinine 24 Hour Urine Total Protein ZINA Screen Crossmatch 02/27/20 02/28/20 02/28/20 16:57 05:07 05:07 WBC Hgb RBC Hct MCV MCH RDW Plt Count Lymph % (Auto) Lymph # [place] % (Auto) [place] # Eos % (Auto) Lymph # (Auto) [place] # (Auto) Eos # (Auto) Seg Neutrophils % Baso # (Auto) Seg Neutrophils # Seg Neuts % (Manual) Lymphocytes % (Manual) Monocytes % (Manual) Nucleated RBC % Seg Neutrophils # Man Lymphocytes # (Manual) Monocytes # (Manual) Eosinophils # (Manual) Basophils # (Manual) ABG pH 7.336 L POC ABG pCO2 POC ABG pO2 ABG pO2 57.0 L ABG HCO3 16.4 L ABG O2 Saturation 88.2 L ABG Base Excess -8.4 L ABG Hemoglobin 10.4 L ABG Oxyhemoglobin ABG Sodium ABG Glucose Oxyhemoglobin 85.7 L Sodium Potassium Chloride Carbon Dioxide 14 L BUN 60 H Creatinine 4.2 H Glucose POC Glucose Calcium 8.2 L Phosphorus Magnesium Direct Bilirubin AST Alkaline Phosphatase Albumin Troponin T C-Reactive Protein Alqaw-3-Jghdujbzu PEP Interpretation Triglycerides Lipase 155 H HDL Cholesterol PTH Intact Arterial Blood Glucose Arterial Blood Ionized Calcium Urine WBC (Auto) Urine Creatinine Ur Creatinine 24 Hour Urine Total Protein ZINA Screen Crossmatch 02/28/20 02/28/20 02/28/20 05:56 11:05 11:05 WBC Hgb RBC Hct MCV MCH RDW Plt Count Lymph % (Auto) Lymph # [place] % (Auto) [place] # Eos % (Auto) Lymph # (Auto) [place] # (Auto) Eos # (Auto) Seg Neutrophils % Baso # (Auto) Seg Neutrophils # Seg Neuts % (Manual) Lymphocytes % (Manual) Monocytes % (Manual) Nucleated RBC % Seg Neutrophils # Man Lymphocytes # (Manual) Monocytes # (Manual) Eosinophils # (Manual) Basophils # (Manual) ABG pH 7.317 L POC ABG pCO2 POC ABG pO2 76.2 L ABG pO2 ABG HCO3 16.4 L ABG O2 Saturation ABG Base Excess -8.9 L ABG Hemoglobin 6.6 L 7.6 L ABG Oxyhemoglobin ABG Sodium ABG Glucose Oxyhemoglobin 94.6 L Sodium Potassium Chloride Carbon Dioxide BUN Creatinine Glucose POC Glucose 115 H Calcium Phosphorus Magnesium Direct Bilirubin AST Alkaline Phosphatase Albumin Troponin T C-Reactive Protein Jedlv-0-Mkjhvsups PEP Interpretation Triglycerides Lipase HDL Cholesterol PTH Intact Arterial Blood Glucose Arterial Blood Ionized Calcium Urine WBC (Auto) Urine Creatinine Ur Creatinine 24 Hour Urine Total Protein ZINA Screen Crossmatch 02/28/20 02/28/20 02/29/20 17:39 19:39 05:43 WBC Hgb RBC Hct MCV MCH RDW Plt Count Lymph % (Auto) Lymph # [place] % (Auto) [place] # Eos % (Auto) Lymph # (Auto) [place] # (Auto) Eos # (Auto) Seg Neutrophils % Baso # (Auto) Seg Neutrophils # Seg Neuts % (Manual) Lymphocytes % (Manual) Monocytes % (Manual) Nucleated RBC % Seg Neutrophils # Man Lymphocytes # (Manual) Monocytes # (Manual) Eosinophils # (Manual) Basophils # (Manual) ABG pH 7.300 L POC ABG pCO2 POC ABG pO2 ABG pO2 117.5 H ABG HCO3 15.0 L ABG O2 Saturation ABG Base Excess -10.5 L ABG Hemoglobin 6.4 L ABG Oxyhemoglobin ABG Sodium ABG Glucose Oxyhemoglobin Sodium Potassium Chloride Carbon Dioxide BUN Creatinine Glucose POC Glucose 120 H 66 L Calcium Phosphorus Magnesium Direct Bilirubin AST Alkaline Phosphatase Albumin Troponin T C-Reactive Protein Ttuxo-2-Pcqyasbxs PEP Interpretation Triglycerides Lipase HDL Cholesterol PTH Intact Arterial Blood Glucose Arterial Blood Ionized Calcium Urine WBC (Auto) Urine Creatinine Ur Creatinine 24 Hour Urine Total Protein ZINA Screen Crossmatch 02/29/20 02/29/20 02/29/20 05:45 12:04 12:31 WBC Hgb RBC Hct MCV MCH RDW Plt Count Lymph % (Auto) Lymph # [place] % (Auto) [place] # Eos % (Auto) Lymph # (Auto) [place] # (Auto) Eos # (Auto) Seg Neutrophils % Baso # (Auto) Seg Neutrophils # Seg Neuts % (Manual) Lymphocytes % (Manual) Monocytes % (Manual) Nucleated RBC % Seg Neutrophils # Man Lymphocytes # (Manual) Monocytes # (Manual) Eosinophils # (Manual) Basophils # (Manual) ABG pH 7.212 L POC ABG pCO2 POC ABG pO2 ABG pO2 ABG HCO3 ABG O2 Saturation ABG Base Excess ABG Hemoglobin 7.4 L ABG Oxyhemoglobin ABG Sodium ABG Glucose Oxyhemoglobin Sodium Potassium Chloride Carbon Dioxide BUN Creatinine Glucose POC Glucose 65 L 64 L Calcium Phosphorus Magnesium Direct Bilirubin AST Alkaline Phosphatase Albumin Troponin T C-Reactive Protein Fwwpz-3-Wjnqecobi PEP Interpretation Triglycerides Lipase HDL Cholesterol PTH Intact Arterial Blood Glucose Arterial Blood Ionized Calcium Urine WBC (Auto) Urine Creatinine Ur Creatinine 24 Hour Urine Total Protein ZINA Screen Crossmatch 02/29/20 02/29/20 02/29/20 14:22 14:22 18:20 WBC Hgb RBC Hct MCV MCH RDW Plt Count Lymph % (Auto) Lymph # [place] % (Auto) [place] # Eos % (Auto) Lymph # (Auto) [place] # (Auto) Eos # (Auto) Seg Neutrophils % Baso # (Auto) Seg Neutrophils # Seg Neuts % (Manual) Lymphocytes % (Manual) Monocytes % (Manual) Nucleated RBC % Seg Neutrophils # Man Lymphocytes # (Manual) Monocytes # (Manual) Eosinophils # (Manual) Basophils # (Manual) ABG pH POC ABG pCO2 POC ABG pO2 ABG pO2 ABG HCO3 ABG O2 Saturation ABG Base Excess ABG Hemoglobin ABG Oxyhemoglobin ABG Sodium ABG Glucose Oxyhemoglobin Sodium Potassium Chloride Carbon Dioxide 16 L BUN 77 H Creatinine 4.7 H Glucose POC Glucose 66 L Calcium Phosphorus 7.50 H Magnesium 2.60 H Direct Bilirubin AST Alkaline Phosphatase Albumin 2.3 L Troponin T C-Reactive Protein Nutku-1-Girldgxar PEP Interpretation Triglycerides Lipase HDL Cholesterol PTH Intact Arterial Blood Glucose Arterial Blood Ionized Calcium Urine WBC (Auto) Urine Creatinine Ur Creatinine 24 Hour Urine Total Protein ZINA Screen Crossmatch 02/29/20 03/01/20 03/01/20 18:24 04:05 04:37 WBC Hgb RBC Hct MCV MCH RDW Plt Count Lymph % (Auto) Lymph # [place] % (Auto) [place] # Eos % (Auto) Lymph # (Auto) [place] # (Auto) Eos # (Auto) Seg Neutrophils % Baso # (Auto) Seg Neutrophils # Seg Neuts % (Manual) Lymphocytes % (Manual) Monocytes % (Manual) Nucleated RBC % Seg Neutrophils # Man Lymphocytes # (Manual) Monocytes # (Manual) Eosinophils # (Manual) Basophils # (Manual) ABG pH 7.271 L 7.347 L POC ABG pCO2 POC ABG pO2 ABG pO2 133.5 H ABG HCO3 15.8 L ABG O2 Saturation ABG Base Excess -8.9 L ABG Hemoglobin 7.2 L 7.6 L ABG Oxyhemoglobin 93.4 L ABG Sodium ABG Glucose Oxyhemoglobin Sodium Potassium Chloride 107.6 H Carbon Dioxide 14 L BUN 83 H Creatinine 5.6 H Glucose POC Glucose Calcium Phosphorus 6.10 H Magnesium 2.40 H Direct Bilirubin AST Alkaline Phosphatase Albumin Troponin T C-Reactive Protein Pbidg-1-Ritmtvpjk PEP Interpretation Triglycerides Lipase HDL Cholesterol PTH Intact Arterial Blood Glucose Arterial Blood Ionized Calcium Urine WBC (Auto) Urine Creatinine Ur Creatinine 24 Hour Urine Total Protein ZINA Screen Crossmatch 03/01/20 03/01/20 03/01/20 11:06 16:22 18:12 WBC 30.5 H Hgb 6.2 L RBC 2.92 L Hct 20.8 L MCV 71 L MCH 21 L RDW 18.2 H Plt Count 560 H Lymph % (Auto) Lymph # [place] % (Auto) [place] # Eos % (Auto) Lymph # (Auto) [place] # (Auto) Eos # (Auto) Seg Neutrophils % Baso # (Auto) Seg Neutrophils # Seg Neuts % (Manual) 79.0 H Lymphocytes % (Manual) 3.0 L Monocytes % (Manual) Nucleated RBC % Seg Neutrophils # Man 24.1 H Lymphocytes # (Manual) 0.9 L Monocytes # (Manual) 2.1 H Eosinophils # (Manual) Basophils # (Manual) ABG pH POC ABG pCO2 POC ABG pO2 ABG pO2 ABG HCO3 ABG O2 Saturation ABG Base Excess ABG Hemoglobin ABG Oxyhemoglobin ABG Sodium ABG Glucose Oxyhemoglobin Sodium Potassium 5.3 H D Chloride Carbon Dioxide 11 L BUN 77 H Creatinine 5.0 H Glucose 54 L POC Glucose 121 H Calcium Phosphorus Magnesium Direct Bilirubin AST Alkaline Phosphatase Albumin 3.0 L Troponin T C-Reactive Protein 36.50 H Gfnhc-6-Gopixywwi PEP Interpretation Triglycerides Lipase HDL Cholesterol PTH Intact Arterial Blood Glucose Arterial Blood Ionized Calcium Urine WBC (Auto) Urine Creatinine Ur Creatinine 24 Hour Urine Total Protein ZINA Screen Crossmatch 03/01/20 03/01/20 03/01/20 18:30 23:37 Unknown WBC Hgb RBC Hct MCV MCH RDW Plt Count Lymph % (Auto) Lymph # [place] % (Auto) [place] # Eos % (Auto) Lymph # (Auto) [place] # (Auto) Eos # (Auto) Seg Neutrophils % Baso # (Auto) Seg Neutrophils # Seg Neuts % (Manual) Lymphocytes % (Manual) Monocytes % (Manual) Nucleated RBC % Seg Neutrophils # Man Lymphocytes # (Manual) Monocytes # (Manual) Eosinophils # (Manual) Basophils # (Manual) ABG pH POC ABG pCO2 POC ABG pO2 ABG pO2 ABG HCO3 ABG O2 Saturation ABG Base Excess ABG Hemoglobin ABG Oxyhemoglobin ABG Sodium ABG Glucose Oxyhemoglobin Sodium Potassium Chloride Carbon Dioxide BUN Creatinine Glucose POC Glucose 125 H Calcium Phosphorus Magnesium Direct Bilirubin AST Alkaline Phosphatase Albumin Troponin T C-Reactive Protein Ujniv-0-Dbhyjrrfx PEP Interpretation Triglycerides Lipase 297 H HDL Cholesterol PTH Intact Arterial Blood Glucose Arterial Blood Ionized Calcium Urine WBC (Auto) Urine Creatinine Ur Creatinine 24 Hour Urine Total Protein ZINA Screen Crossmatch See Detail 03/02/20 03/02/20 03/02/20 04:00 05:36 05:36 WBC 26.0 H Hgb 7.8 L RBC 3.26 L Hct 24.2 L MCV 74 L MCH 24 L RDW 21.3 H Plt Count 508 H Lymph % (Auto) Lymph # [place] % (Auto) [place] # Eos % (Auto) Lymph # (Auto) [place] # (Auto) Eos # (Auto) Seg Neutrophils % Baso # (Auto) Seg Neutrophils # Seg Neuts % (Manual) 86.0 H Lymphocytes % (Manual) 4.0 L Monocytes % (Manual) Nucleated RBC % 2.0 H Seg Neutrophils # Man 22.4 H Lymphocytes # (Manual) 1.0 L Monocytes # (Manual) Eosinophils # (Manual) Basophils # (Manual) ABG pH POC ABG pCO2 27.8 L POC ABG pO2 ABG pO2 ABG HCO3 ABG O2 Saturation ABG Base Excess ABG Hemoglobin 8 L ABG Oxyhemoglobin ABG Sodium ABG Glucose Oxyhemoglobin Sodium Potassium Chloride Carbon Dioxide 17 L BUN 85 H Creatinine 5.6 H Glucose 109 H POC Glucose Calcium Phosphorus Magnesium 2.50 H Direct Bilirubin AST Alkaline Phosphatase Albumin 2.3 L Troponin T C-Reactive Protein Uzcoj-8-Ysrwtmzsx PEP Interpretation Triglycerides Lipase HDL Cholesterol PTH Intact Arterial Blood Glucose Arterial Blood Ionized Calcium Urine WBC (Auto) Urine Creatinine Ur Creatinine 24 Hour Urine Total Protein ZINA Screen Crossmatch 03/03/20 03/03/20 03/03/20 04:00 04:36 04:36 WBC Hgb RBC Hct MCV MCH RDW Plt Count Lymph % (Auto) Lymph # [place] % (Auto) [place] # Eos % (Auto) Lymph # (Auto) [place] # (Auto) Eos # (Auto) Seg Neutrophils % Baso # (Auto) Seg Neutrophils # Seg Neuts % (Manual) Lymphocytes % (Manual) Monocytes % (Manual) Nucleated RBC % Seg Neutrophils # Man Lymphocytes # (Manual) Monocytes # (Manual) Eosinophils # (Manual) Basophils # (Manual) ABG pH POC ABG pCO2 31.8 L POC ABG pO2 ABG pO2 ABG HCO3 ABG O2 Saturation ABG Base Excess ABG Hemoglobin 8.6 L ABG Oxyhemoglobin ABG Sodium ABG Glucose Oxyhemoglobin Sodium 147 H Potassium Chloride 108.4 H Carbon Dioxide 16 L BUN 87 H Creatinine 6.2 H Glucose POC Glucose Calcium Phosphorus Magnesium 2.50 H Direct Bilirubin 1.0 H AST Alkaline Phosphatase Albumin 2.4 L Troponin T C-Reactive Protein Medtk-5-Rfogwueki PEP Interpretation Triglycerides Lipase 119 H HDL Cholesterol PTH Intact Arterial Blood Glucose Arterial Blood Ionized Calcium Urine WBC (Auto) Urine Creatinine Ur Creatinine 24 Hour Urine Total Protein ZINA Screen Crossmatch 03/03/20 03/03/20 03/03/20 04:36 12:48 17:48 WBC 28.0 H Hgb 8.1 L RBC 3.41 L Hct 25.3 L MCV 74 L MCH 24 L RDW 20.8 H Plt Count 557 H Lymph % (Auto) Lymph # [place] % (Auto) [place] # Eos % (Auto) Lymph # (Auto) [place] # (Auto) Eos # (Auto) Seg Neutrophils % Baso # (Auto) Seg Neutrophils # Seg Neuts % (Manual) 82.0 H Lymphocytes % (Manual) 4.0 L Monocytes % (Manual) Nucleated RBC % Seg Neutrophils # Man 23.0 H Lymphocytes # (Manual) 1.1 L Monocytes # (Manual) 2.0 H Eosinophils # (Manual) Basophils # (Manual) ABG pH POC ABG pCO2 POC ABG pO2 ABG pO2 ABG HCO3 ABG O2 Saturation ABG Base Excess ABG Hemoglobin ABG Oxyhemoglobin ABG Sodium ABG Glucose Oxyhemoglobin Sodium Potassium Chloride Carbon Dioxide BUN Creatinine Glucose POC Glucose 131 H 113 H Calcium Phosphorus Magnesium Direct Bilirubin AST Alkaline Phosphatase Albumin Troponin T C-Reactive Protein Pcctp-8-Hafhmxdlz PEP Interpretation Triglycerides Lipase HDL Cholesterol PTH Intact Arterial Blood Glucose Arterial Blood Ionized Calcium Urine WBC (Auto) Urine Creatinine Ur Creatinine 24 Hour Urine Total Protein ZINA Screen Crossmatch 03/03/20 03/04/20 03/04/20 23:43 03:43 04:05 WBC Hgb RBC Hct MCV MCH RDW Plt Count Lymph % (Auto) Lymph # [place] % (Auto) [place] # Eos % (Auto) Lymph # (Auto) [place] # (Auto) Eos # (Auto) Seg Neutrophils % Baso # (Auto) Seg Neutrophils # Seg Neuts % (Manual) Lymphocytes % (Manual) Monocytes % (Manual) Nucleated RBC % Seg Neutrophils # Man Lymphocytes # (Manual) Monocytes # (Manual) Eosinophils # (Manual) Basophils # (Manual) ABG pH POC ABG pCO2 POC ABG pO2 ABG pO2 57.4 L ABG HCO3 27.2 H ABG O2 Saturation 88.6 L ABG Base Excess ABG Hemoglobin ABG Oxyhemoglobin ABG Sodium ABG Glucose Oxyhemoglobin Sodium Potassium 3.3 L Chloride Carbon Dioxide BUN 65 H Creatinine 5.3 H Glucose 152 H POC Glucose 149 H Calcium Phosphorus Magnesium Direct Bilirubin 0.7 H AST Alkaline Phosphatase Albumin 2.5 L Troponin T C-Reactive Protein Mbtrv-7-Nnwfknnlj PEP Interpretation Triglycerides Lipase HDL Cholesterol PTH Intact Arterial Blood Glucose Arterial Blood Ionized Calcium Urine WBC (Auto) Urine Creatinine Ur Creatinine 24 Hour Urine Total Protein ZINA Screen Crossmatch 03/04/20 03/04/20 03/04/20 04:05 05:26 12:21 WBC 30.1 H Hgb 8.2 L RBC 3.44 L Hct 25.2 L MCV 73 L MCH 24 L RDW 20.7 H Plt Count 554 H Lymph % (Auto) 3.3 L Lymph # [place] % (Auto) [place] # Eos % (Auto) Lymph # (Auto) 1.0 L [place] # (Auto) 2.0 H Eos # (Auto) Seg Neutrophils % 88.6 H Baso # (Auto) Seg Neutrophils # 26.6 H Seg Neuts % (Manual) Lymphocytes % (Manual) Monocytes % (Manual) Nucleated RBC % Seg Neutrophils # Man Lymphocytes # (Manual) Monocytes # (Manual) Eosinophils # (Manual) Basophils # (Manual) ABG pH POC ABG pCO2 POC ABG pO2 ABG pO2 ABG HCO3 ABG O2 Saturation ABG Base Excess ABG Hemoglobin ABG Oxyhemoglobin ABG Sodium ABG Glucose Oxyhemoglobin Sodium Potassium Chloride Carbon Dioxide BUN Creatinine Glucose POC Glucose 136 H 155 H Calcium Phosphorus Magnesium Direct Bilirubin AST Alkaline Phosphatase Albumin Troponin T C-Reactive Protein Xxqbh-7-Sbckagifx PEP Interpretation Triglycerides Lipase HDL Cholesterol PTH Intact Arterial Blood Glucose Arterial Blood Ionized Calcium Urine WBC (Auto) Urine Creatinine Ur Creatinine 24 Hour Urine Total Protein ZINA Screen Crossmatch 03/04/20 03/04/20 03/04/20 18:02 19:00 23:24 WBC Hgb RBC Hct MCV MCH RDW Plt Count Lymph % (Auto) Lymph # [place] % (Auto) [place] # Eos % (Auto) Lymph # (Auto) [place] # (Auto) Eos # (Auto) Seg Neutrophils % Baso # (Auto) Seg Neutrophils # Seg Neuts % (Manual) Lymphocytes % (Manual) Monocytes % (Manual) Nucleated RBC % Seg Neutrophils # Man Lymphocytes # (Manual) Monocytes # (Manual) Eosinophils # (Manual) Basophils # (Manual) ABG pH POC ABG pCO2 POC ABG pO2 ABG pO2 ABG HCO3 ABG O2 Saturation ABG Base Excess ABG Hemoglobin ABG Oxyhemoglobin ABG Sodium ABG Glucose Oxyhemoglobin Sodium Potassium Chloride Carbon Dioxide BUN Creatinine Glucose POC Glucose 124 H 115 H Calcium Phosphorus Magnesium Direct Bilirubin AST Alkaline Phosphatase Albumin Troponin T C-Reactive Protein Ugbsa-0-Yffcocuga PEP Interpretation Triglycerides Lipase 72 H HDL Cholesterol PTH Intact Arterial Blood Glucose Arterial Blood Ionized Calcium Urine WBC (Auto) Urine Creatinine Ur Creatinine 24 Hour Urine Total Protein ZINA Screen Crossmatch 03/05/20 03/05/20 03/05/20 05:04 05:29 06:00 WBC Hgb RBC Hct MCV MCH RDW Plt Count Lymph % (Auto) Lymph # [place] % (Auto) [place] # Eos % (Auto) Lymph # (Auto) [place] # (Auto) Eos # (Auto) Seg Neutrophils % Baso # (Auto) Seg Neutrophils # Seg Neuts % (Manual) Lymphocytes % (Manual) Monocytes % (Manual) Nucleated RBC % Seg Neutrophils # Man Lymphocytes # (Manual) Monocytes # (Manual) Eosinophils # (Manual) Basophils # (Manual) ABG pH POC ABG pCO2 POC ABG pO2 ABG pO2 62.5 L ABG HCO3 26.4 H ABG O2 Saturation 92.1 L ABG Base Excess ABG Hemoglobin 9.3 L ABG Oxyhemoglobin ABG Sodium ABG Glucose Oxyhemoglobin 89.9 L Sodium Potassium Chloride Carbon Dioxide BUN 54 H Creatinine 5.4 H Glucose 125 H POC Glucose 134 H Calcium Phosphorus Magnesium Direct Bilirubin 0.6 H AST Alkaline Phosphatase 133 H Albumin 2.5 L Troponin T C-Reactive Protein Joyyb-5-Uwkkhqtdh PEP Interpretation Triglycerides Lipase HDL Cholesterol PTH Intact Arterial Blood Glucose Arterial Blood Ionized Calcium Urine WBC (Auto) Urine Creatinine Ur Creatinine 24 Hour Urine Total Protein ZINA Screen Crossmatch 03/05/20 03/05/20 03/05/20 12:18 18:01 21:39 WBC Hgb RBC Hct MCV MCH RDW Plt Count Lymph % (Auto) Lymph # [place] % (Auto) [place] # Eos % (Auto) Lymph # (Auto) [place] # (Auto) Eos # (Auto) Seg Neutrophils % Baso # (Auto) Seg Neutrophils # Seg Neuts % (Manual) Lymphocytes % (Manual) Monocytes % (Manual) Nucleated RBC % Seg Neutrophils # Man Lymphocytes # (Manual) Monocytes # (Manual) Eosinophils # (Manual) Basophils # (Manual) ABG pH POC ABG pCO2 POC ABG pO2 ABG pO2 ABG HCO3 ABG O2 Saturation ABG Base Excess ABG Hemoglobin ABG Oxyhemoglobin ABG Sodium ABG Glucose Oxyhemoglobin Sodium Potassium Chloride Carbon Dioxide BUN Creatinine Glucose POC Glucose 118 H 108 H 123 H Calcium Phosphorus Magnesium Direct Bilirubin AST Alkaline Phosphatase Albumin Troponin T C-Reactive Protein Lhzsj-8-Gurrwvsbd PEP Interpretation Triglycerides Lipase HDL Cholesterol PTH Intact Arterial Blood Glucose Arterial Blood Ionized Calcium Urine WBC (Auto) Urine Creatinine Ur Creatinine 24 Hour Urine Total Protein ZINA Screen Crossmatch 03/06/20 03/06/20 03/06/20 04:40 04:41 05:44 WBC Hgb RBC Hct MCV MCH RDW Plt Count Lymph % (Auto) Lymph # [place] % (Auto) [place] # Eos % (Auto) Lymph # (Auto) [place] # (Auto) Eos # (Auto) Seg Neutrophils % Baso # (Auto) Seg Neutrophils # Seg Neuts % (Manual) Lymphocytes % (Manual) Monocytes % (Manual) Nucleated RBC % Seg Neutrophils # Man Lymphocytes # (Manual) Monocytes # (Manual) Eosinophils # (Manual) Basophils # (Manual) ABG pH POC ABG pCO2 POC ABG pO2 64.9 L ABG pO2 ABG HCO3 ABG O2 Saturation ABG Base Excess ABG Hemoglobin 9.9 L ABG Oxyhemoglobin 90.5 L ABG Sodium ABG Glucose Oxyhemoglobin Sodium Potassium Chloride 94.7 L Carbon Dioxide BUN 70 H Creatinine 7.1 H Glucose 113 H POC Glucose 134 H Calcium Phosphorus Magnesium Direct Bilirubin AST Alkaline Phosphatase Albumin Troponin T C-Reactive Protein Fuqlj-9-Jawpgdilz PEP Interpretation Triglycerides Lipase HDL Cholesterol PTH Intact Arterial Blood Glucose Arterial Blood Ionized Calcium Urine WBC (Auto) Urine Creatinine Ur Creatinine 24 Hour Urine Total Protein ZINA Screen Crossmatch 03/06/20 03/06/20 03/06/20 08:54 11:56 18:19 WBC 31.5 H Hgb 8.7 L RBC Hct 27.8 L MCV 75 L MCH 23 L RDW 21.2 H Plt Count 516 H Lymph % (Auto) Lymph # [place] % (Auto) [place] # Eos % (Auto) Lymph # (Auto) [place] # (Auto) Eos # (Auto) Seg Neutrophils % Baso # (Auto) Seg Neutrophils # Seg Neuts % (Manual) 93.0 H Lymphocytes % (Manual) 2.0 L Monocytes % (Manual) Nucleated RBC % Seg Neutrophils # Man 29.3 H Lymphocytes # (Manual) 0.6 L Monocytes # (Manual) Eosinophils # (Manual) 0.6 H Basophils # (Manual) ABG pH POC ABG pCO2 POC ABG pO2 ABG pO2 ABG HCO3 ABG O2 Saturation ABG Base Excess ABG Hemoglobin ABG Oxyhemoglobin ABG Sodium ABG Glucose Oxyhemoglobin Sodium Potassium Chloride Carbon Dioxide BUN Creatinine Glucose POC Glucose 131 H 117 H Calcium Phosphorus Magnesium Direct Bilirubin AST Alkaline Phosphatase Albumin Troponin T C-Reactive Protein Bbucp-5-Qkgunhitt PEP Interpretation Triglycerides Lipase HDL Cholesterol PTH Intact Arterial Blood Glucose Arterial Blood Ionized Calcium Urine WBC (Auto) Urine Creatinine Ur Creatinine 24 Hour Urine Total Protein ZINA Screen Crossmatch 03/07/20 03/07/20 03/07/20 04:42 05:03 05:03 WBC 26.9 H Hgb 8.3 L RBC 3.50 L Hct 26.6 L MCV 76 L MCH 24 L RDW 21.3 H Plt Count 470 H Lymph % (Auto) Lymph # [place] % (Auto) [place] # Eos % (Auto) Lymph # (Auto) [place] # (Auto) Eos # (Auto) Seg Neutrophils % Baso # (Auto) Seg Neutrophils # Seg Neuts % (Manual) 89.0 H Lymphocytes % (Manual) 4.0 L Monocytes % (Manual) Nucleated RBC % Seg Neutrophils # Man 23.9 H Lymphocytes # (Manual) 1.1 L Monocytes # (Manual) Eosinophils # (Manual) Basophils # (Manual) 0.3 H ABG pH POC ABG pCO2 POC ABG pO2 68.3 L ABG pO2 ABG HCO3 ABG O2 Saturation ABG Base Excess ABG Hemoglobin 9.3 L ABG Oxyhemoglobin ABG Sodium ABG Glucose 112 H Oxyhemoglobin Sodium Potassium Chloride 94.8 L Carbon Dioxide BUN 52 H Creatinine 6.3 H Glucose 106 H POC Glucose Calcium Phosphorus Magnesium Direct Bilirubin AST Alkaline Phosphatase 132 H Albumin 2.5 L Troponin T C-Reactive Protein Kwtpl-5-Kghkyacej PEP Interpretation Triglycerides Lipase HDL Cholesterol PTH Intact Arterial Blood Glucose 112 H Arterial Blood Ionized Calcium Urine WBC (Auto) Urine Creatinine Ur Creatinine 24 Hour Urine Total Protein ZINA Screen Crossmatch 03/07/20 03/07/20 03/07/20 12:08 18:05 23:29 WBC Hgb RBC Hct MCV MCH RDW Plt Count Lymph % (Auto) Lymph # [place] % (Auto) [place] # Eos % (Auto) Lymph # (Auto) [place] # (Auto) Eos # (Auto) Seg Neutrophils % Baso # (Auto) Seg Neutrophils # Seg Neuts % (Manual) Lymphocytes % (Manual) Monocytes % (Manual) Nucleated RBC % Seg Neutrophils # Man Lymphocytes # (Manual) Monocytes # (Manual) Eosinophils # (Manual) Basophils # (Manual) ABG pH POC ABG pCO2 POC ABG pO2 ABG pO2 ABG HCO3 ABG O2 Saturation ABG Base Excess ABG Hemoglobin ABG Oxyhemoglobin ABG Sodium ABG Glucose Oxyhemoglobin Sodium Potassium Chloride Carbon Dioxide BUN Creatinine Glucose POC Glucose 114 H 111 H 118 H Calcium Phosphorus Magnesium Direct Bilirubin AST Alkaline Phosphatase Albumin Troponin T C-Reactive Protein Qgefj-5-Oejrlvkmj PEP Interpretation Triglycerides Lipase HDL Cholesterol PTH Intact Arterial Blood Glucose Arterial Blood Ionized Calcium Urine WBC (Auto) Urine Creatinine Ur Creatinine 24 Hour Urine Total Protein ZINA Screen Crossmatch 03/08/20 03/08/20 03/08/20 04:50 17:45 23:53 WBC Hgb RBC Hct MCV MCH RDW Plt Count Lymph % (Auto) Lymph # [place] % (Auto) [place] # Eos % (Auto) Lymph # (Auto) [place] # (Auto) Eos # (Auto) Seg Neutrophils % Baso # (Auto) Seg Neutrophils # Seg Neuts % (Manual) Lymphocytes % (Manual) Monocytes % (Manual) Nucleated RBC % Seg Neutrophils # Man Lymphocytes # (Manual) Monocytes # (Manual) Eosinophils # (Manual) Basophils # (Manual) ABG pH POC ABG pCO2 POC ABG pO2 ABG pO2 ABG HCO3 ABG O2 Saturation ABG Base Excess ABG Hemoglobin ABG Oxyhemoglobin ABG Sodium ABG Glucose Oxyhemoglobin Sodium Potassium Chloride 95.5 L Carbon Dioxide BUN 52 H Creatinine 6.2 H Glucose 109 H POC Glucose 106 H 106 H Calcium Phosphorus Magnesium Direct Bilirubin AST Alkaline Phosphatase Albumin Troponin T C-Reactive Protein Symto-5-Guidyzykz PEP Interpretation Triglycerides Lipase HDL Cholesterol PTH Intact Arterial Blood Glucose Arterial Blood Ionized Calcium Urine WBC (Auto) Urine Creatinine Ur Creatinine 24 Hour Urine Total Protein ZINA Screen Crossmatch 03/09/20 03/09/20 03/09/20 04:00 07:53 18:22 WBC 21.9 H Hgb 7.5 L RBC 3.27 L Hct 24.3 L MCV 74 L MCH 23 L RDW 20.9 H Plt Count 488 H Lymph % (Auto) Lymph # [place] % (Auto) [place] # Eos % (Auto) Lymph # (Auto) [place] # (Auto) Eos # (Auto) Seg Neutrophils % Baso # (Auto) Seg Neutrophils # Seg Neuts % (Manual) Lymphocytes % (Manual) Monocytes % (Manual) Nucleated RBC % Seg Neutrophils # Man Lymphocytes # (Manual) Monocytes # (Manual) Eosinophils # (Manual) Basophils # (Manual) ABG pH POC ABG pCO2 POC ABG pO2 ABG pO2 ABG HCO3 ABG O2 Saturation ABG Base Excess ABG Hemoglobin ABG Oxyhemoglobin ABG Sodium ABG Glucose Oxyhemoglobin Sodium Potassium Chloride 92.8 L Carbon Dioxide BUN 74 H Creatinine 7.8 H Glucose POC Glucose 114 H Calcium Phosphorus Magnesium Direct Bilirubin AST Alkaline Phosphatase Albumin Troponin T C-Reactive Protein [place]-5-Yuawhmgis PEP Interpretation Triglycerides Lipase HDL Cholesterol PTH Intact Arterial Blood Glucose Arterial Blood Ionized Calcium Urine WBC (Auto) Urine Creatinine Ur Creatinine 24 Hour Urine Total Protein ZINA Screen Crossmatch 03/10/20 03/10/20 03/10/20 04:37 04:37 09:53 WBC 16.0 H Hgb 7.1 L RBC 2.99 L Hct 22.4 L MCV 75 L MCH 24 L RDW 21.5 H Plt Count Lymph % (Auto) 9.2 L Lymph # [place] % (Auto) 9.9 H [place] # Eos % (Auto) Lymph # (Auto) [place] # (Auto) 1.6 H Eos # (Auto) Seg Neutrophils % 79.2 H Baso # (Auto) Seg Neutrophils # 12.6 H Seg Neuts % (Manual) Lymphocytes % (Manual) Monocytes % (Manual) Nucleated RBC % Seg Neutrophils # Man Lymphocytes # (Manual) Monocytes # (Manual) Eosinophils # (Manual) Basophils # (Manual) ABG pH POC ABG pCO2 POC ABG pO2 ABG pO2 ABG HCO3 ABG O2 Saturation ABG Base Excess ABG Hemoglobin 7.7 L ABG Oxyhemoglobin ABG Sodium 134.7 L ABG Glucose 103 H Oxyhemoglobin Sodium Potassium Chloride Carbon Dioxide BUN 45 H Creatinine 5.6 H Glucose 108 H POC Glucose Calcium Phosphorus Magnesium Direct Bilirubin AST Alkaline Phosphatase Albumin Troponin T C-Reactive Protein Bwvmz-7-Hmzmvxata PEP Interpretation Triglycerides Lipase HDL Cholesterol PTH Intact Arterial Blood Glucose 103 H Arterial Blood Ionized Calcium Urine WBC (Auto) Urine Creatinine Ur Creatinine 24 Hour Urine Total Protein ZINA Screen Crossmatch 03/10/20 03/11/20 03/11/20 23:46 02:52 03:25 WBC Hgb RBC Hct MCV MCH RDW Plt Count Lymph % (Auto) Lymph # [place] % (Auto) [place] # Eos % (Auto) Lymph # (Auto) [place] # (Auto) Eos # (Auto) Seg Neutrophils % Baso # (Auto) Seg Neutrophils # Seg Neuts % (Manual) Lymphocytes % (Manual) Monocytes % (Manual) Nucleated RBC % Seg Neutrophils # Man Lymphocytes # (Manual) Monocytes # (Manual) Eosinophils # (Manual) Basophils # (Manual) ABG pH POC ABG pCO2 POC ABG pO2 77.5 L ABG pO2 ABG HCO3 ABG O2 Saturation ABG Base Excess ABG Hemoglobin 8.0 L ABG Oxyhemoglobin ABG Sodium 135.8 L ABG Glucose Oxyhemoglobin Sodium Potassium Chloride Carbon Dioxide BUN Creatinine Glucose POC Glucose 116 H Calcium Phosphorus Magnesium Direct Bilirubin AST Alkaline Phosphatase Albumin Troponin T 0.093 H C-Reactive Protein Mtbfs-0-Cjtxzcamk PEP Interpretation Triglycerides Lipase HDL Cholesterol PTH Intact Arterial Blood Glucose Arterial Blood Ionized Calcium Urine WBC (Auto) Urine Creatinine Ur Creatinine 24 Hour Urine Total Protein ZINA Screen Crossmatch 03/11/20 03/11/20 03/11/20 04:32 04:32 06:16 WBC 22.4 H Hgb 7.8 L RBC 3.32 L Hct 25.0 L MCV 75 L MCH 24 L RDW 21.4 H Plt Count 553 H Lymph % (Auto) Lymph # [place] % (Auto) [place] # Eos % (Auto) Lymph # (Auto) [place] # (Auto) Eos # (Auto) Seg Neutrophils % Baso # (Auto) Seg Neutrophils # Seg Neuts % (Manual) 81.0 H Lymphocytes % (Manual) 8.0 L Monocytes % (Manual) 8.0 H Nucleated RBC % Seg Neutrophils # Man 18.1 H Lymphocytes # (Manual) Monocytes # (Manual) 1.8 H Eosinophils # (Manual) Basophils # (Manual) 0.2 H ABG pH POC ABG pCO2 POC ABG pO2 ABG pO2 ABG HCO3 ABG O2 Saturation ABG Base Excess ABG Hemoglobin ABG Oxyhemoglobin ABG Sodium ABG Glucose Oxyhemoglobin Sodium Potassium Chloride 96.6 L Carbon Dioxide BUN 64 H Creatinine 6.5 H Glucose 101 H POC Glucose 142 H Calcium Phosphorus Magnesium Direct Bilirubin AST 41 H Alkaline Phosphatase Albumin 2.7 L Troponin T C-Reactive Protein Uarhu-4-Ggbplrcvq PEP Interpretation Triglycerides Lipase HDL Cholesterol PTH Intact Arterial Blood Glucose Arterial Blood Ionized Calcium Urine WBC (Auto) Urine Creatinine Ur Creatinine 24 Hour Urine Total Protein ZINA Screen Crossmatch 03/11/20 03/11/20 03/11/20 06:50 07:31 14:31 WBC Hgb 7.7 L RBC Hct 23.7 L MCV MCH RDW Plt Count 553 H Lymph % (Auto) Lymph # [place] % (Auto) [place] # Eos % (Auto) Lymph # (Auto) [place] # (Auto) Eos # (Auto) Seg Neutrophils % Baso # (Auto) Seg Neutrophils # Seg Neuts % (Manual) Lymphocytes % (Manual) Monocytes % (Manual) Nucleated RBC % Seg Neutrophils # Man Lymphocytes # (Manual) Monocytes # (Manual) Eosinophils # (Manual) Basophils # (Manual) ABG pH POC ABG pCO2 POC ABG pO2 ABG pO2 67.8 L ABG HCO3 ABG O2 Saturation ABG Base Excess ABG Hemoglobin ABG Oxyhemoglobin ABG Sodium ABG Glucose Oxyhemoglobin Sodium Potassium Chloride Carbon Dioxide BUN Creatinine Glucose POC Glucose Calcium Phosphorus Magnesium Direct Bilirubin AST Alkaline Phosphatase Albumin Troponin T 0.085 H C-Reactive Protein Eibbm-9-Txdrtjmgq PEP Interpretation Triglycerides 247 H Lipase HDL Cholesterol 28 L PTH Intact Arterial Blood Glucose Arterial Blood Ionized Calcium Urine WBC (Auto) Urine Creatinine Ur Creatinine 24 Hour Urine Total Protein ZINA Screen Crossmatch 03/12/20 03/12/20 03/13/20 03:46 17:33 04:00 WBC Hgb 6.6 L RBC Hct 19.5 L* MCV MCH RDW Plt Count 603 H Lymph % (Auto) Lymph # [place] % (Auto) [place] # Eos % (Auto) Lymph # (Auto) [place] # (Auto) Eos # (Auto) Seg Neutrophils % Baso # (Auto) Seg Neutrophils # Seg Neuts % (Manual) Lymphocytes % (Manual) Monocytes % (Manual) Nucleated RBC % Seg Neutrophils # Man Lymphocytes # (Manual) Monocytes # (Manual) Eosinophils # (Manual) Basophils # (Manual) ABG pH POC ABG pCO2 POC ABG pO2 78.3 L ABG pO2 ABG HCO3 ABG O2 Saturation ABG Base Excess ABG Hemoglobin 7.9 L ABG Oxyhemoglobin ABG Sodium 134.8 L ABG Glucose Oxyhemoglobin Sodium Potassium Chloride Carbon Dioxide BUN Creatinine Glucose POC Glucose 107 H Calcium Phosphorus Magnesium Direct Bilirubin AST Alkaline Phosphatase Albumin Troponin T C-Reactive Protein Rszct-0-Weckjvyhv PEP Interpretation Triglycerides Lipase HDL Cholesterol PTH Intact Arterial Blood Glucose Arterial Blood Ionized Calcium Urine WBC (Auto) Urine Creatinine Ur Creatinine 24 Hour Urine Total Protein ZINA Screen Crossmatch 03/13/20 03/13/20 03/13/20 04:00 08:20 08:45 WBC Hgb 7.0 L RBC Hct 21.8 L MCV MCH RDW Plt Count Lymph % (Auto) Lymph # [place] % (Auto) [place] # Eos % (Auto) Lymph # (Auto) [place] # (Auto) Eos # (Auto) Seg Neutrophils % Baso # (Auto) Seg Neutrophils # Seg Neuts % (Manual) Lymphocytes % (Manual) Monocytes % (Manual) Nucleated RBC % Seg Neutrophils # Man Lymphocytes # (Manual) Monocytes # (Manual) Eosinophils # (Manual) Basophils # (Manual) ABG pH POC ABG pCO2 POC ABG pO2 ABG pO2 ABG HCO3 27.4 H ABG O2 Saturation ABG Base Excess ABG Hemoglobin 8.7 L ABG Oxyhemoglobin ABG Sodium ABG Glucose Oxyhemoglobin 94.6 L Sodium Potassium Chloride Carbon Dioxide BUN Creatinine Glucose POC Glucose Calcium Phosphorus Magnesium Direct Bilirubin AST Alkaline Phosphatase Albumin Troponin T C-Reactive Protein Jspsk-5-Utyrktlhq PEP Interpretation Triglycerides Lipase HDL Cholesterol PTH Intact Arterial Blood Glucose Arterial Blood Ionized Calcium Urine WBC (Auto) Urine Creatinine Ur Creatinine 24 Hour Urine Total Protein ZINA Screen Crossmatch See Detail 03/13/20 03/13/20 03/14/20 14:23 15:38 06:15 WBC Hgb RBC Hct MCV MCH RDW Plt Count Lymph % (Auto) Lymph # [place] % (Auto) [place] # Eos % (Auto) Lymph # (Auto) [place] # (Auto) Eos # (Auto) Seg Neutrophils % Baso # (Auto) Seg Neutrophils # Seg Neuts % (Manual) Lymphocytes % (Manual) Monocytes % (Manual) Nucleated RBC % Seg Neutrophils # Man Lymphocytes # (Manual) Monocytes # (Manual) Eosinophils # (Manual) Basophils # (Manual) ABG pH 7.462 H POC ABG pCO2 POC ABG pO2 75.1 L ABG pO2 ABG HCO3 ABG O2 Saturation ABG Base Excess ABG Hemoglobin 8.9 L ABG Oxyhemoglobin ABG Sodium 135.9 L ABG Glucose Oxyhemoglobin Sodium Potassium Chloride 94.2 L 93.1 L Carbon Dioxide BUN 32 H 45 H Creatinine 3.6 H 4.9 H Glucose POC Glucose Calcium Phosphorus Magnesium Direct Bilirubin AST Alkaline Phosphatase Albumin Troponin T C-Reactive Protein Vbzoj-3-Wirxcwarz PEP Interpretation Triglycerides Lipase HDL Cholesterol PTH Intact Arterial Blood Glucose Arterial Blood Ionized Calcium 4.5 L Urine WBC (Auto) Urine Creatinine Ur Creatinine 24 Hour Urine Total Protein ZINA Screen Crossmatch 03/14/20 03/14/20 03/15/20 06:15 Unknown 04:31 WBC 13.7 H Hgb 7.8 L 7.7 L 8.1 L RBC 3.13 L Hct 22.4 L 23.8 L 24.7 L MCV 76 L MCH 25 L RDW 21.6 H Plt Count 662 H 729 H Lymph % (Auto) Lymph # [place] % (Auto) [place] # Eos % (Auto) Lymph # (Auto) [place] # (Auto) 1.0 H Eos # (Auto) 0.6 H Seg Neutrophils % 71.5 H Baso # (Auto) Seg Neutrophils # 9.8 H Seg Neuts % (Manual) Lymphocytes % (Manual) Monocytes % (Manual) Nucleated RBC % Seg Neutrophils # Man Lymphocytes # (Manual) Monocytes # (Manual) Eosinophils # (Manual) Basophils # (Manual) ABG pH POC ABG pCO2 POC ABG pO2 ABG pO2 ABG HCO3 ABG O2 Saturation ABG Base Excess ABG Hemoglobin ABG Oxyhemoglobin ABG Sodium ABG Glucose Oxyhemoglobin Sodium Potassium Chloride Carbon Dioxide BUN Creatinine Glucose POC Glucose Calcium Phosphorus Magnesium Direct Bilirubin AST Alkaline Phosphatase Albumin Troponin T C-Reactive Protein Xnujw-5-Ggyjxbfak PEP Interpretation Triglycerides Lipase HDL Cholesterol PTH Intact Arterial Blood Glucose Arterial Blood Ionized Calcium Urine WBC (Auto) Urine Creatinine Ur Creatinine 24 Hour Urine Total Protein ZINA Screen Crossmatch 03/15/20 03/15/20 03/16/20 04:31 13:20 00:17 WBC Hgb RBC Hct MCV MCH RDW Plt Count Lymph % (Auto) Lymph # [place] % (Auto) [place] # Eos % (Auto) Lymph # (Auto) [place] # (Auto) Eos # (Auto) Seg Neutrophils % Baso # (Auto) Seg Neutrophils # Seg Neuts % (Manual) Lymphocytes % (Manual) Monocytes % (Manual) Nucleated RBC % Seg Neutrophils # Man Lymphocytes # (Manual) Monocytes # (Manual) Eosinophils # (Manual) Basophils # (Manual) ABG pH POC ABG pCO2 POC ABG pO2 ABG pO2 ABG HCO3 28.9 H ABG O2 Saturation ABG Base Excess 3.9 H ABG Hemoglobin 8.6 L ABG Oxyhemoglobin ABG Sodium ABG Glucose Oxyhemoglobin 94.9 L Sodium Potassium Chloride 95.9 L Carbon Dioxide BUN 60 H Creatinine 5.6 H Glucose POC Glucose 111 H Calcium Phosphorus Magnesium Direct Bilirubin AST Alkaline Phosphatase Albumin Troponin T C-Reactive Protein Imfwe-6-Khpujsmoe PEP Interpretation Triglycerides Lipase HDL Cholesterol PTH Intact Arterial Blood Glucose Arterial Blood Ionized Calcium Urine WBC (Auto) Urine Creatinine Ur Creatinine 24 Hour Urine Total Protein ZINA Screen Crossmatch 03/16/20 03/16/20 03/17/20 04:52 04:52 04:55 WBC 13.9 H Hgb 8.3 L 9.1 L RBC 3.35 L Hct 25.8 L 28.2 L MCV 77 L MCH 25 L RDW 22.1 H Plt Count 799 H 818 H Lymph % (Auto) 11.1 L Lymph # [place] % (Auto) [place] # Eos % (Auto) 4.4 H Lymph # (Auto) [place] # (Auto) 0.9 H Eos # (Auto) 0.6 H Seg Neutrophils % 77.4 H Baso # (Auto) Seg Neutrophils # 10.8 H Seg Neuts % (Manual) Lymphocytes % (Manual) Monocytes % (Manual) Nucleated RBC % Seg Neutrophils # Man Lymphocytes # (Manual) Monocytes # (Manual) Eosinophils # (Manual) Basophils # (Manual) ABG pH POC ABG pCO2 POC ABG pO2 ABG pO2 ABG HCO3 ABG O2 Saturation ABG Base Excess ABG Hemoglobin ABG Oxyhemoglobin ABG Sodium ABG Glucose Oxyhemoglobin Sodium Potassium Chloride 93.8 L Carbon Dioxide BUN 72 H Creatinine 5.8 H Glucose POC Glucose Calcium Phosphorus Magnesium Direct Bilirubin AST Alkaline Phosphatase Albumin 2.7 L Troponin T C-Reactive Protein Svpxv-3-Uyjjeustr PEP Interpretation Triglycerides Lipase HDL Cholesterol PTH Intact Arterial Blood Glucose Arterial Blood Ionized Calcium Urine WBC (Auto) Urine Creatinine Ur Creatinine 24 Hour Urine Total Protein ZINA Screen Crossmatch 03/17/20 03/18/20 03/18/20 04:55 10:28 14:00 WBC Hgb RBC Hct MCV MCH RDW Plt Count Lymph % (Auto) Lymph # [place] % (Auto) [place] # Eos % (Auto) Lymph # (Auto) [place] # (Auto) Eos # (Auto) Seg Neutrophils % Baso # (Auto) Seg Neutrophils # Seg Neuts % (Manual) Lymphocytes % (Manual) Monocytes % (Manual) Nucleated RBC % Seg Neutrophils # Man Lymphocytes # (Manual) Monocytes # (Manual) Eosinophils # (Manual) Basophils # (Manual) ABG pH POC ABG pCO2 POC ABG pO2 ABG pO2 ABG HCO3 ABG O2 Saturation ABG Base Excess ABG Hemoglobin ABG Oxyhemoglobin ABG Sodium ABG Glucose Oxyhemoglobin Sodium Potassium Chloride 93.5 L 94.4 L Carbon Dioxide BUN 40 H 37 H Creatinine 3.8 H 3.0 H Glucose 112 H POC Glucose Calcium Phosphorus Magnesium Direct Bilirubin AST Alkaline Phosphatase Albumin Troponin T C-Reactive Protein Jhlnx-0-Ghayuuoyn PEP Interpretation Triglycerides Lipase HDL Cholesterol PTH Intact Arterial Blood Glucose Arterial Blood Ionized Calcium Urine WBC (Auto) Urine Creatinine 278.4 H Ur Creatinine 24 Hour 0.3 L Urine Total Protein ZINA Screen Crossmatch 03/19/20 03/19/20 03/20/20 05:55 05:55 04:31 WBC 15.1 H Hgb 9.4 L RBC Hct 29.3 L MCV 78 L MCH 25 L RDW 21.9 H Plt Count 775 H Lymph % (Auto) Lymph # [place] % (Auto) [place] # Eos % (Auto) 5.4 H Lymph # (Auto) [place] # (Auto) 0.9 H Eos # (Auto) 0.8 H Seg Neutrophils % 73.7 H Baso # (Auto) 0.2 H Seg Neutrophils # 11.1 H Seg Neuts % (Manual) Lymphocytes % (Manual) Monocytes % (Manual) Nucleated RBC % Seg Neutrophils # Man Lymphocytes # (Manual) Monocytes # (Manual) Eosinophils # (Manual) Basophils # (Manual) ABG pH POC ABG pCO2 POC ABG pO2 ABG pO2 ABG HCO3 ABG O2 Saturation ABG Base Excess ABG Hemoglobin ABG Oxyhemoglobin ABG Sodium ABG Glucose Oxyhemoglobin Sodium 136 L Potassium Chloride 92.0 L 94.8 L Carbon Dioxide BUN 28 H 40 H Creatinine 3.5 H 4.3 H Glucose POC Glucose Calcium Phosphorus Magnesium Direct Bilirubin AST Alkaline Phosphatase Albumin Troponin T C-Reactive Protein Vbepb-7-Ltdvpvako PEP Interpretation Triglycerides Lipase HDL Cholesterol PTH Intact Arterial Blood Glucose Arterial Blood Ionized Calcium Urine WBC (Auto) Urine Creatinine Ur Creatinine 24 Hour Urine Total Protein ZINA Screen Crossmatch 03/21/20 03/22/20 05:00 04:21 WBC Hgb RBC Hct MCV MCH RDW Plt Count Lymph % (Auto) Lymph # [place] % (Auto) [place] # Eos % (Auto) Lymph # (Auto) [place] # (Auto) Eos # (Auto) Seg Neutrophils % Baso # (Auto) Seg Neutrophils # Seg Neuts % (Manual) Lymphocytes % (Manual) Monocytes % (Manual) Nucleated RBC % Seg Neutrophils # Man Lymphocytes # (Manual) Monocytes # (Manual) Eosinophils # (Manual) Basophils # (Manual) ABG pH POC ABG pCO2 POC ABG pO2 ABG pO2 ABG HCO3 ABG O2 Saturation ABG Base Excess ABG Hemoglobin ABG Oxyhemoglobin ABG Sodium ABG Glucose Oxyhemoglobin Sodium Potassium Chloride 94.2 L 94.7 L Carbon Dioxide BUN 23 H 33 H Creatinine 3.6 H 4.3 H Glucose POC Glucose Calcium Phosphorus Magnesium Direct Bilirubin AST Alkaline Phosphatase Albumin Troponin T C-Reactive Protein Jztuz-9-Tnescwqzb PEP Interpretation Triglycerides Lipase HDL Cholesterol PTH Intact Arterial Blood Glucose Arterial Blood Ionized Calcium Urine WBC (Auto) Urine Creatinine Ur Creatinine 24 Hour Urine Total Protein ZINA Screen Crossmatch Allied health notes reviewed: nursing
[2020-03-22] MEDS: QUEtiapine 100 MG TAB PO SCH (21:56)
[2020-03-22] MEDS: MORPHINE 2 MG/1 ML INJ IV PRN (22:10)
[2020-03-23] MEDS: hydrALAZINE 100 MG TAB PO SCH ×3 (05:05→21:13)
[2020-03-23] MEDS: HEPARIN 5,000 UNIT/1 ML VIAL SUB-Q SCH ×3 (05:05→21:09)
[2020-03-23 05:47] LABS: Calcium 9.9 mg/dL (8.4-10.2)
--- NOTE | 2020-03-23 07:59 | Progress Note ---
Assessment and Plan Assessment and plan: 39-year-old -[place] female with known history of hypertension, history of kidney stones, hyperlipidemia and obesity presenting to the emergency room today complaining of abdominal pain radiating towards right flank and back. Pain is said to be 10/10 in severity. No known relieving or exacerbating factor. She has known history of kidney stones in the past. She has had some nausea but no vomiting and no diarrhea. She denies any hematuria or dysuria, she denies any fever or chills. Patient states she is currently on her menses. Upon arrival in the emergency room patient had elevated blood pressure with systolic in the 200s and diastolic in the 120s. She has had multiple rounds of IV labetalol withoutany significant improvement. Patient admits that she has been out of her medication for a couple of weeks. work-up in the emergency room reveals elevated lipase and CT of the abdomen and pelvis reveals acute pancreatitis. Patient also had hypertensive emergency on Cardene drip admitted to ICU, complicated by acute renal failure, acute respiratory failure requiring intubation, alcohol withdrawal on CIWA protocol, patient's renal function worsened requiring hemodialysis. Patient was ultimately weaned and extubated, evaluated by pulmonary critical GI surgery, nephrology and ID, Stabilized extubated transfer to medical floor,, discharge planning per case management, setting up outpatient HD placement. --Ac.hypoxic resp. failure /s/p extubated 03/15/2020 Extubated 03/15/2020, on BiPAP and Ventimask Patient is refusing BiPAP. On nasal cannula oxygen Patient was intubated initially 02/29/2020, extubated 03/10/2020 Again went into respiratory failure reintubated 03/11/2020, extubated 03/15/2020 Patient was off oxygen by the time I evaluated her and was breathing comfortably --Severe sepsis secondary to pneumonia and pancreatitis; s/p meropenem, completed total 14 days per ID ,follow cultures leukocytosis, tachycardia, tachypnea, fever, infiltrate on chest x-ray. Symptoms significantly improved -- Acute severe pancreatitis Initial non-contrasted CT showed no evidence of necrosis or pseudocyst or abscess formation. Repeat CT 03/05 with interval worsening of acute pancreatitis without clear evidence of necrosis with increased jessica-pancreatic fat stranding and disorganized fluid, Symptoms resolved --JUANIS/worsening renal function/on HD Initiated hemodialysis 03/03/2020. Hemodialysis per schedule, MWF If nephro recommend long-term HD Case management to set up outpatient HD --Severe metabolic encephalopathy/POA/resolved Patient is more alert and awake oriented x3 Back to her baseline -- Hypertensive emergency POA s/p Cardene drip, closely monitor Blood pressures is uncontrolled and changed amlodipine to Procardia, and increase the dose of hydralazine from 50-100 We will monitor and adjust as needed --Anemia; hemoglobin 9.4 No external evidence of bleeding Total 3 units of PRBC transfusion GI evaluated , patient is stable now --Chest pain/positive troponins;NSTEMI 2 Probably nonspecific , patient has acute kidney injury on dialysis continue current med management, follow serial cardiac enzymes, EF 60-65% on ECHO, cardiology evaluated and signed off conservative management -- Bilateral pleural effusions. Compressive atelectasis. Incentive spirometry --Alcohol withdrawal . Chronic alcohol use No new alcohol withdrawal symptoms Patient counseled and advised to quit alcohol intake Patient verbalized understanding --Severe metabolic acidosis; resolved On HD per nephrology --Severe protein calorie malnutrition and hypoalbuminemia Nutrition supplements, nutrition consult and supportive care --Medical noncompliance counseled the importance of adhering to the treatment plan Verbalized understanding -- DVT prophylaxis Patient placed on subcutaneous heparin. --Obesity; BMI 37.9 patient needs weight reduction when medically stable. -- Full code status Follow GI and pulmonary evaluation and recommendations We will closely monitor the patient and adjust the management as needed Patient is stable to be transferred out of ICU to telemetry DC planning per case management Possible discharge in 1 to 2 days if stable 03/15; patient is more alert and awake, remains intubated on vent, wean and extubate as tolerated DC planning per case management 03/16; patient received hemodialysis today stable to be transferred out of ICU to telemetry, DC planning per case management 03/17; DC planning per case management, outpatient HD placement if nephrology recommend long-term hemodialysis ; disposition per nephrology , pending decision for long-term hemodialysis .possible discharge in 1 to 2 days if stable 03/19; outpatient HD scheduling per case management 03/20: Stable, awaiting HD. BP still elevated will adjust BP meds INCREASING Hydralazine to 50mg TID 03/21; patient stable awaiting outpatient hemodialysis arrangement. BP is fairly controlled. 03/22/2020; patient will need outpatient hemodialysis arrangement. Patient will have PermCath tomorrow. BP is uncontrolled and blood pressures medications are adjusted. And will continue to monitor. 03/23/2020; Patient will have permacath today. BP is well controlled after blood pressure medications were adjusted yesterday. Discussed with case management and patient is uninsured. Patient will be discharged once she has PermCath placed and will follow in the emergency department for her dialysis needs. History Interval history: Patient was seen and evaluated this morning Patient did not have any complaints Hospitalist Physical - Physical exam Narrative exam: Not in cardiopulmonary distress. The patient is obese. Vital signs as documented. Head exam is unremarkable. No scleral icterus . Neck is without jugular venous distension, thyromegaly, or carotid bruits. Lungs are clear to auscultation. Cardiac exam reveals regular rate and Rhythm. Abdominal exam reveals normal bowel sounds, nontender, no organomegaly. Extremities are nonedematous and both femoral and pedal pulses are normal. 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 No focal weakness. - Constitutional Vitals: Temp Pulse Resp BP Pulse Ox 99.0 F 90 18 136/74 96 03/23/20 03:46 03/23/20 03:46 03/23/20 03:46 03/23/20 03:46 03/23/20 03:46 General appearance: Present: no acute distress, well-nourished, obese, other (Intubated) HEART Score - HEART Score Troponin: Troponin T 0.085 ng/mL (0.00-0.029) H 03/11/20 14:31 Results - Labs CBC & Chem 7: 03/19/20 05:55 03/23/20 04:23 Labs: Laboratory Last Values WBC 15.1 K/mm3 (4.5-11.0) H 03/19/20 05:55 RBC 3.75 M/mm3 (3.65-5.03) 03/19/20 05:55 Hgb 9.4 gm/dl (10.1-14.3) L 03/19/20 05:55 Hct 29.3 % (30.3-42.9) L 03/19/20 05:55 MCV 78 fl (79-97) L 03/19/20 05:55 MCH 25 pg (28-32) L 03/19/20 05:55 MCHC 32 % (30-34) 03/19/20 05:55 RDW 21.9 % (13.2-15.2) H 03/19/20 05:55 Plt Count 775 K/mm3 (140-440) H 03/19/20 05:55 Lymph % (Auto) 14.1 % (13.4-35.0) 03/19/20 05:55 [place] % (Auto) 5.7 % (0.0-7.3) 03/19/20 05:55 Eos % (Auto) 5.4 % (0.0-4.3) H 03/19/20 05:55 Baso % (Auto) 1.1 % (0.0-1.8) 03/19/20 05:55 Lymph # (Auto) 2.1 K/mm3 (1.2-5.4) 03/19/20 05:55 [place] # (Auto) 0.9 K/mm3 (0.0-0.8) H 03/19/20 05:55 Eos # (Auto) 0.8 K/mm3 (0.0-0.4) H 03/19/20 05:55 Baso # (Auto) 0.2 K/mm3 (0.0-0.1) H 03/19/20 05:55 Add Manual Diff Complete 03/11/20 04:32 Total Counted 100 03/11/20 04:32 Seg Neutrophils % 73.7 % (40.0-70.0) H 03/19/20 05:55 Seg Neuts % (Manual) 81.0 % (40.0-70.0) H 03/11/20 04:32 Band Neutrophils % 1.0 % 03/11/20 04:32 Lymphocytes % (Manual) 8.0 % (13.4-35.0) L 03/11/20 04:32 Reactive Lymphs % (Man) 0 % 03/11/20 04:32 Monocytes % (Manual) 8.0 % (0.0-7.3) H 03/11/20 04:32 Eosinophils % (Manual) 1.0 % (0.0-4.3) 03/11/20 04:32 Basophils % (Manual) 1.0 % (0.0-1.8) 03/11/20 04:32 Metamyelocytes % 0 % 03/11/20 04:32 Myelocytes % 0 % 03/11/20 04:32 Promyelocytes % 0 % 03/11/20 04:32 Blast Cells % 0 % 03/11/20 04:32 Nucleated RBC % Not Reportable 03/11/20 04:32 Seg Neutrophils # 11.1 K/mm3 (1.8-7.7) H 03/19/20 05:55 Seg Neutrophils # Man 18.1 K/mm3 (1.8-7.7) H 03/11/20 04:32 Band Neutrophils # 0.2 K/mm3 03/11/20 04:32 Lymphocytes # (Manual) 1.8 K/mm3 (1.2-5.4) 03/11/20 04:32 Abs React Lymphs (Man) 0.0 K/mm3 03/11/20 04:32 Monocytes # (Manual) 1.8 K/mm3 (0.0-0.8) H 03/11/20 04:32 Eosinophils # (Manual) 0.2 K/mm3 (0.0-0.4) 03/11/20 04:32 Basophils # (Manual) 0.2 K/mm3 (0.0-0.1) H 03/11/20 04:32 Metamyelocytes # 0.0 K/mm3 03/11/20 04:32 Myelocytes # 0.0 K/mm3 03/11/20 04:32 Promyelocytes # 0.0 K/mm3 03/11/20 04:32 Blast Cells # 0.0 K/mm3 03/11/20 04:32 WBC Morphology Not Reportable 03/11/20 04:32 Hypersegmented Neuts Not Reportable 03/11/20 04:32 Hyposegmented Neuts Not Reportable 03/11/20 04:32 Hypogranular Neuts Not Reportable 03/11/20 04:32 Smudge Cells Not Reportable 03/11/20 04:32 Toxic Granulation Not Reportable 03/11/20 04:32 Toxic Vacuolation Not Reportable 03/11/20 04:32 Dohle Bodies Not Reportable 03/11/20 04:32 Pelger-Huet Anomaly Not Reportable 03/11/20 04:32 Maia Rods Not Reportable 03/11/20 04:32 Platelet Estimate Consistent w auto 03/11/20 04:32 Clumped Platelets Not Reportable 03/11/20 04:32 Plt Clumps, EDTA Not Reportable 03/11/20 04:32 Large Platelets Not Reportable 03/11/20 04:32 Giant Platelets Not Reportable 03/11/20 04:32 Platelet Satelliting Not Reportable 03/11/20 04:32 Plt Morphology Comment Not Reportable 03/11/20 04:32 RBC Morphology Not Reportable 03/11/20 04:32 Dimorphic RBCs Not Reportable 03/11/20 04:32 Polychromasia Not Reportable 03/11/20 04:32 Hypochromasia 1+ 03/11/20 04:32 Poikilocytosis Not Reportable 03/11/20 04:32 Anisocytosis 1+ 03/11/20 04:32 Microcytosis Not Reportable 03/11/20 04:32 Macrocytosis Not Reportable 03/11/20 04:32 Spherocytes Not Reportable 03/11/20 04:32 Pappenheimer Bodies Not Reportable 03/11/20 04:32 Sickle Cells Not Reportable 03/11/20 04:32 Target Cells Not Reportable 03/11/20 04:32 Tear Drop Cells Rare 03/11/20 04:32 Ovalocytes Few 03/11/20 04:32 Helmet Cells Not Reportable 03/11/20 04:32 [place] Bodies Not Reportable 03/11/20 04:32 [place] Rings Not Reportable 03/11/20 04:32 [place] Cells Not Reportable 03/11/20 04:32 Bite Cells Not Reportable 03/11/20 04:32 Crenated Cell Not Reportable 03/11/20 04:32 Elliptocytes Not Reportable 03/11/20 04:32 Acanthocytes (Spur) Not Reportable 03/11/20 04:32 Rouleaux Not Reportable 03/11/20 04:32 Hemoglobin C Crystals Not Reportable 03/11/20 04:32 Schistocytes Not Reportable 03/11/20 04:32 Malaria parasites Not Reportable 03/11/20 04:32 Edgardo Bodies Not Reportable 03/11/20 04:32 Hem Pathologist Commnt No 03/11/20 04:32 PT 14.1 Sec. (12.2-14.9) 03/11/20 07:31 INR 1.07 (0.87-1.13) 03/11/20 07:31 APTT 32.0 Sec. (24.2-36.6) 03/11/20 07:31 ABG pH 7.420 pH Units (7.350-7.450) 03/15/20 13:20 POC ABG pCO2 40.5 mmHg (32.0-48.0) 03/13/20 14:23 ABG pCO2 45.5 mm Hg 03/15/20 13:20 POC ABG pO2 75.1 mmHg (83-108) L 03/13/20 14:23 ABG pO2 85.8 mm Hg (80.0-90.0) 03/15/20 13:20 POC ABG HCO3 28.3 03/13/20 14:23 ABG HCO3 28.9 mmol/L (20.0-26.0) H 03/15/20 13:20 ABG O2 Saturation 97.1 % (95.0-99.0) 03/15/20 13:20 ABG O2 Content 11.6 (0.0-44) 03/15/20 13:20 POC ABG Base Excess 4.2 03/13/20 14:23 ABG Base Excess 3.9 mmol/L (-2.0-3.0) H 03/15/20 13:20 ABG Hemoglobin 8.6 gm/dl (12.0-16.0) L 03/15/20 13:20 ABG Oxyhemoglobin 90.5 (94-98) L 03/06/20 04:41 ABG Carboxyhemoglobin 1.7 % (0.0-5.0) 03/15/20 13:20 ABG Methemoglobin 0.5 % (0.0-1.5) 03/15/20 13:20 ABG Sodium 135.9 mmol/L (136.0-145.0) L 03/13/20 14:23 ABG Potassium 3.8 mmol/L (3.40-4.50) 03/13/20 14:23 ABG Chloride 98.0 mmol/L (98-107) 03/13/20 14:23 ABG Glucose 89 mg/dL (65-95) 03/13/20 14:23 Oxyhemoglobin 94.9 % (95.0-99.0) L 03/15/20 13:20 Carboxyhemoglobin 1 (0.5-1.5) 03/06/20 04:41 FiO2 30 % 03/15/20 13:20 Sodium 139 mmol/L (137-145) 03/23/20 04:23 Potassium 4.0 mmol/L (3.6-5.0) 03/23/20 04:23 Chloride 97.9 mmol/L (98-107) L 03/23/20 04:23 Carbon Dioxide 23 mmol/L (22-30) 03/23/20 04:23 Anion Gap 22 mmol/L 03/23/20 04:23 BUN 39 mg/dL (7-17) H 03/23/20 04:23 Creatinine 4.3 mg/dL (0.6-1.2) H 03/23/20 04:23 Estimated GFR 14 ml/min 03/23/20 04:23 BUN/Creatinine Ratio 9 % 03/23/20 04:23 Glucose 83 mg/dL (65-100) 03/23/20 04:23 POC Glucose 81 (70-105) 03/20/20 11:58 Lactic Acid 0.90 mmol/L (0.7-2.0) 02/27/20 19:33 Calcium 9.9 mg/dL (8.4-10.2) 03/23/20 04:23 Phosphorus 6.10 mg/dL (2.5-4.5) H 03/01/20 04:37 Magnesium 2.00 mg/dL (1.7-2.3) 03/07/20 05:03 Total Bilirubin 0.30 mg/dL (0.1-1.2) 03/16/20 04:52 Direct Bilirubin 0.6 mg/dL (0-0.2) H 03/05/20 06:00 Indirect Bilirubin 0.3 mg/dL 03/05/20 06:00 AST 30 units/L (5-40) 03/16/20 04:52 ALT 14 units/L (7-56) 03/16/20 04:52 Alkaline Phosphatase 75 units/L (35-129) 03/16/20 04:52 Troponin T 0.085 ng/mL (0.00-0.029) H 03/11/20 14:31 C-Reactive Protein 36.50 mg/dL (0.00-1.30) H 03/01/20 11:06 Serum Total Protein 6.3 g/dL (6.1-8.1) 02/26/20 04:39 Total Protein 7.6 g/dL (6.3-8.2) 03/16/20 04:52 Albumin 2.7 g/dL (3.9-5) L 03/16/20 04:52 Albumin/Globulin Ratio 0.6 % 03/16/20 04:52 Fdedf-2-Dnetumwnh 0.7 g/dL (0.2-0.3) H 02/26/20 04:39 Pfcgt-9-Pkikcxapn 0.8 g/dL (0.5-0.9) 02/26/20 04:39 Beta Globulins 0.4 g/dL (0.2-0.5) 02/26/20 04:39 Gamma Globulins 1.2 g/dL (0.8-1.7) 02/26/20 04:39 Abnorm Protein Band 1 see below 02/26/20 04:39 PEP Interpretation see below H 02/26/20 04:39 Triglycerides 247 mg/dL (2-149) H 03/11/20 14:31 Cholesterol 158 mg/dL (50-199) 03/11/20 14:31 LDL Cholesterol Direct 80 mg/dL (50-130) 03/11/20 14:31 HDL Cholesterol 28 mg/dL (40-59) L 03/11/20 14:31 Cholesterol/HDL Ratio 5.64 % 03/11/20 14:31 Lipase 72 units/L (13-60) H 03/04/20 19:00 HCG, Qual Negative (Negative) 02/24/20 02:53 PTH Intact 911.3 pg/mL (15-65) H 02/26/20 08:15 Arterial Blood Glucose 89 mg/dL (65-95) 03/13/20 14:23 Arterial Blood Ionized Calcium 4.5 mg/dL (4.6-5.3) L 03/13/20 14:23 Urine Color Yellow (Yellow) 02/24/20 Unknown Urine Turbidity Clear (Clear) 02/24/20 Unknown Urine pH 6.0 (5.0-7.0) 02/24/20 Unknown Ur Specific [place] 1.020 (1.003-1.030) 02/24/20 Unknown Urine Protein >500 mg/dL (Negative) 02/24/20 Unknown Urine Glucose (UA) 50 mg/dL (Negative) 02/24/20 Unknown Urine Ketones Neg mg/dL (Negative) 02/24/20 Unknown Urine Blood Lg (Negative) 02/24/20 Unknown Urine Nitrite Neg (Negative) 02/24/20 Unknown Urine Bilirubin Neg (Negative) 02/24/20 Unknown Urine Urobilinogen < 2.0 mg/dL (<2.0) 02/24/20 Unknown Ur Leukocyte Esterase Neg (Negative) 02/24/20 Unknown Urine WBC (Auto) 11.0 /HPF (0.0-6.0) H 02/24/20 Unknown Urine RBC (Auto) 149.0 /HPF (0.0-6.0) 02/24/20 Unknown U Epithel Cells (Auto) 5.0 /HPF (0-13.0) 02/24/20 Unknown Urine Bacteria (Auto) 1+ /HPF (Negative) 02/24/20 Unknown Urine Mucus Few /HPF 02/24/20 Unknown Urine Total Volume 115 ml 03/18/20 14:00 Urine Creatinine 278.4 mg/dL (0.1-20.0) H 03/18/20 14:00 Ur Creatinine 24 Hour 0.3 (0.8-2.8) L 03/18/20 14:00 Protein/Creatinin Ratio 0.93 02/25/20 22:55 Urine Total Protein 150 mg/dL (5-11.8) H 02/25/20 22:55 ZINA Screen Positive (Negative) H 02/26/20 04:39 Proteinase 3 (PR3) Ab <1.0 AI (<1.0) 02/26/20 04:39 Myeloperoxidase Ab <1.0 AI (<1.0) 02/26/20 04:39 Double Strand DNA Ab See scanned result 03/06/20 14:46 Complement C3 153 mg/dL (83-193) 02/26/20 04:39 Complement C4 35 mg/dL (15-57) 02/26/20 04:39 Coronavirus (PCR) Negative (Negative) 03/09/20 09:12 Hepatitis A IgM Ab Non-reactive (NonReactive) 03/03/20 12:34 Hep Bs Antigen Non-reactive (Negative) 03/03/20 12:34 Hep B Core IgM Ab Non-reactive (NonReactive) 03/03/20 12:34 Hepatitis C Antibody Non-reactive (NonReactive) 03/03/20 12:34 Blood Type AB POSITIVE 03/13/20 08:45 Antibody Screen Negative 03/13/20 08:45 Crossmatch See Detail 03/13/20 08:45 - Diagnostic Impressions Diagnostic Impressions: Echocardiogram 02/26/20 09:11 Transthoracic Echocardiogram Indication: Cardiomegaly BP: 149/92 HR: 122 Conclusions *Global left ventricular systolic function is normal. *The estimated ejection fraction is 60-65%. *Moderate to severe concentric left ventricular hypertrophy is observed. *The left atrium is mild to moderately dilated. *The aortic valve leaflets are moderately thickened. *A mean gradient of 22.39 mmHg across the outflow tract is likely not due to but hyperdynamic flow and LVH. *There is trace tricuspid regurgitation. Findings Left Ventricle: The left ventricular chamber size is normal. Moderate to severe concentric left ventricular hypertrophy is observed. Global left ventricular systolic function is normal. The estimated ejection fraction is 60-65%. Left Atrium: The left atrium is mild to moderately dilated. Right Ventricle: The right ventricular cavity size is normal. The right ventricular global systolic function is normal. Right Atrium: The right atrial cavity size is normal. Aortic Valve: The aortic valve leaflets are moderately thickened. There is no evidence of aortic regurgitation. The mean gradient of the aortic valve is 22.39 mmHg. Mitral Valve: The mitral valve leaflets are mildly thickened. There is trace of mitral regurgitation. There is no evidence of mitral stenosis. Tricuspid Valve: There is trace tricuspid regurgitation. No pulmonary hypertension is noted. Pulmonic Valve: There is trace pulmonic regurgitation. Pericardium: There is no pericardial effusion. Aorta: There is no dilatation of the ascending aorta. There is no dilatation of the aortic root. Venous: The inferior vena cava appears normal in size. Measurements Chambers 2D Name Value Normal Range IVSd (2D) 1.8 cm (0.6 - 1.1) LVPWd (2D) 1.74 cm (0.6 - 1.1) LVIDd (2D) 4.57 cm (3.7 - 5.6) LVIDs (2D) 2.73 cm (2 - 3.8) LV FS (2D) 40.27 % - EF Teichholz (2D) 71.04 % - Ao root diameter (2D) 2.79 cm (2 - 3.7) Volumes/Mass Name Value Normal Range LA ESV SP 4CH (A/L) 54.18 ml - LA ESV SP 2CH (A/L) 61.84 ml - LA ESV BP (A/L) 58.1 ml - LA ESV BP (A/L) index 30.74 ml/m2 - LA ESV SP 4CH (MOD) 52.89 ml - LA ESV SP 2CH (MOD) 60.65 ml - LA ESV BP (MOD) 56.77 ml - LA ESV BP (MOD) index 30.04 ml/m2 - LV EDV SP 4CH (MOD) 164.2 ml - LV ESV SP 4CH (MOD) 58.04 ml - EF SP 4CH (MOD) 64.65 % - Diastolic/Systolic Function Name Value Normal Range MV E-wave Vmax 1.38 m/sec - MV deceleration time 92.78 msec - MV A-wave Vmax 1.44 m/sec - MV E:A ratio 0.95 ratio - Aortic Valve Name Value Normal Range AV Vmax 3.08 m/sec - AV VTI 36.74 cm - AV peak gradient 37.98 mmHg - AV mean gradient 22.39 mmHg - LVOT diameter 2.01 cm - LVOT Vmax 2.45 m/sec - LVOT VTI 29.85 cm - LVOT peak gradient 24.04 mmHg - LVOT mean gradient 11.11 mmHg - SV LVOT 94.73 ml - JADA (continuity Vmax) 2.52 cm2 - JADA (continuity VTI) 2.58 cm2 - Ascending Ao 2.64 cm - Mitral Valve Name Value Normal Range MV PHT 37.88 msec - MVA (PHT) 5.81 cm2 - Tricuspid Valve Name Value Normal Range IVC diameter 1.93 cm (1.2 - 2.3) Pulmonic Valve/Qp:Qs Name Value Normal Range PV Vmax 2.83 m/sec - PV VTI 45.88 cm - PV peak gradient 32.06 mmHg - PV mean gradient 16.11 mmHg - [place] end-diastolic Vmax 0.81 m/sec - RVOT Vmax 1.82 m/sec - RVOT VTI 25.12 cm - RVOT peak gradient 13.3 mmHg - Franks/IV: Voiding Method Toilet IV Catheter Type [Right VAS Cath Internal Jugular] IV Catheter Type [Left Upper INT / Saline Lock arm] IV Catheter Type [Right Upper INT / Saline Lock arm] IV Catheter Type [Right INT / Saline Lock Forearm] IV Catheter Type [Right Wrist] Peripheral IV IV Catheter Type [Right Peripheral IV Antecubital] Active Medications - Current Medications Current Medications: Generic Name Dose Route Start Last Admin Trade Name Freq PRN Reason Stop Dose Admin Acetaminophen 650 mg 02/26/20 16:23 03/14/20 22:03 Tylenol PO 650 mg Q4H PRN Administration Pain, Mild (1-3)/ Temp >100. Albuterol 2.5 mg 02/27/20 17:55 Proventil IH Q4HRT PRN Shortness Of Breath Aspirin 325 mg 03/15/20 11:00 03/22/20 10:56 Aspirin PO 325 mg QDAY INDU Administration Dextrose 50 ml 02/29/20 08:00 03/01/20 00:20 D50w (25gm) Syringe IV 10 ml Q30MIN PRN Administration HYPOGLYCEMIA Protocol Epoetin Prosper 10,000 unit 03/12/20 10:00 03/20/20 16:00 Procrit IV 10,000 unit NIKOLAY PRN Administration hemodialysis Heparin Sodium (Porcine) 5,000 unit 03/11/20 14:00 03/23/20 05:05 Heparin SUB-Q 5,000 unit Q8HR INDU Administration Hydralazine HCl 100 mg 03/22/20 08:30 03/23/20 05:05 Apresoline PO 100 mg Q8HR INDU Administration Hydrophilic Ointment 1 applic 03/11/20 06:01 Vaseline Lip Therapy TP Q2HR PRN Dry Lips Sodium Chloride 100 mls @ 999 mls/hr 03/08/20 17:05 Nacl 0.9% IV NIKOLAY PRN Hypotension Labetalol HCl 10 mg 02/28/20 09:00 03/11/20 03:04 Labetalol IV 10 mg Q4H PRN Administration Hypertension Metoprolol Tartrate 25 mg 02/28/20 10:00 03/22/20 21:56 Metoprolol PO 25 mg BID INDU Administration Morphine Sulfate 2 mg 03/11/20 05:13 03/22/20 22:10 Morphine IV 2 mg Q4H PRN Administration Pain, Moderate (4-6) Multi-Ingred Cream/Lotion/Oil/Oint 1 applic 03/11/20 06:01 Artificial Tears Ophth Oint OU Q4HR PRN Dry Eye(s) Nifedipine 60 mg 03/22/20 10:00 03/22/20 21:56 Procardia Xl PO 60 mg Q12HR INDU Administration Nitroglycerin 0.4 mg 03/11/20 05:14 Nitrostat SL .Q5MIN PRN Chest Pain Ondansetron HCl 4 mg 02/24/20 06:45 02/25/20 23:33 Zofran IV 4 mg Q8H PRN Administration Nausea And Vomiting Pantoprazole Sodium 40 mg 03/16/20 11:00 03/22/20 10:56 Protonix PO 40 mg QDAC INDU Administration Quetiapine Fumarate 100 mg 03/16/20 22:00 03/22/20 21:56 Seroquel PO 100 mg QHS INDU Administration Sodium Chloride 10 ml 02/24/20 10:00 03/22/20 21:57 Sodium Chloride Flush Syringe 10 Ml IV 10 ml BID INDU Administration Sodium Chloride 10 ml 02/24/20 06:45 03/10/20 09:06 Sodium Chloride Flush Syringe 10 Ml IV 10 ml PRN PRN Administration LINE FLUSH Nutrition/Malnutrition Assess - Dietary Evaluation Nutrition/Malnutrition Findings: Nutrition Notes Start: 02/24/20 13:4 2 Freq: Status: Active Protocol: Document 03/19/20 11:48 BRANDI (Rec: 03/19/20 12:04 BRANDI [id number]) Co-Sign 03/19/20 11:48 Nutrition Notes Need for Assessment generated from: Education Initial or Follow up Reassessment Current Diagnosis Acute Kidney Injury,CKD (stage V CKD),Sepsis,Hypertension, Respiratory Failure, Hyperlipidemia Other Pertinent Diagnosis HD, acute pancreatitis Current Diet Renal Labs/Tests BUN 28 Cr 3.5 BG 80 Pertinent Medications Reviewed Height 5 ft 1 in Weight 91 kg [place] Body Weight (kg) 47.72 BMI 37.9 Weight Status Obese Subjective/Other Information F/u intakes. Pt reported eating mostly fruit from tray and drinking juices. Wants sandwiches. Not receiving ONS. Discussed the importance of protein with HD, a healthy renal diet, and encouraged her to f/u with out-patient HD RD . Noted MD signed off on pancreatitis. Percent of energy/protein needs met: 25%/0% Burn Absent Trauma Absent GI Symptoms None Current % PO Negligible Minimum of two criteria No Fluid Accumulation Moderate to Severe (severe) #2 Nutrition Diagnosis Inadequate oral intake As Evidenced by Signs and Symptoms pt mostly drinking fluids and eating fruit. Diagnosis Progress(for reassessment Continues documentation) #1 Nutrition Diagnosis Food and nutrition-related knowledge deficit As Evidenced by Signs and Symptoms Pt had questions about the HD diet. Diagnosis Progress(for reassessment Resolved documentation) Is patient on ventilator? Yes Is Patient Ambulatory and/or Out of Bed No REE-([place]-. [place]-confined to bed) 9768.840 Calculation [facility]ations [facility] Additional Notes Pro: 83-104g (1.2-1.5g/kg AdBW 69kg) Fluid: 1ml/kcal Nutrition Intervention Change Diet Order: Continue renal diet d/c mechanical soft Add Supplement/Snack (indicate name/kcal Nepro daily /protein ) Provides kCal: 425 Provides Protein (gm) 19 Teaching Recipient Patient Learning Readiness Good Teaching Methods Discussion,Handout Response to Teaching Verbalize understanding Education Handouts Provided Renal MyPlate Barriers to Learning No Barriers RD phone number provided Yes Patient aware of follow up options Yes Goal #1 Meet at least 75% of energy and protein needs. Anticipated Discharge Needs: Renal diet Follow-Up By: 03/24/20 Additional Comments F/u intakes, ONS acceptance, and dry wt
--- NOTE | 2020-03-23 10:05 | Progress Note ---
Assessment and Plan Assessment * JUANIS on HD since 03/03 --On admission, cr 1.7. Serologies: ANCA, C3, C4 - negative; ZINA positive, UA with hematuria and proteinuria. Follow up 24hr crcl noted, 115ml of UPO, will need perm cath placment and HD unit placement * Acute hypoxic respiratory failure, status post extubation, now on room air * Chest pain --Elevated troponin * Metabolic acidosis, controlled with dialysis * Acute severe pancreatitis * Fever * Accelerated hypertension - resolved * Anemia Plan: * Continue HD MWF schedule for now- UF as tolerated * Consulted IR for renal biopsy now that she is more clinically stable * Monitor SCr trend and UOP for evidence of recovery - Uncertain re: renal prognosis. Patient reports 9 year hx of hypertension, untreated at times. She reports that she was not under the consistent care of a healthcare provider. * Cardiology recommendations reviewed - conservative cardiac management for now * GI recommendations reviewed * Continue anti-hypertensive medications * Abx per ID * Hold ACEi for now * Hold epogen for now given acute illness * Dose medications for renal function * Outpatient hemodialysis placement Subjective Date of service: 03/23/20 Principal diagnosis: HTNsive urgency; Morbid obesity; Ac. pancreatitis; Abdominal pain Interval history: Patient was seen for her renal issues Nursing, interdisciplinary and consult notes were reviewed Vitals, input and output, medications and labs were reviewed Imaging was reviewed Notes some urine output Tolerating dialysis Objective - Exam Narrative Exam: Vitals: Reviewed General: No acute distress HEENT: Oral mucosa moist, no pharyngeal erythema, no evidence of epistaxis Neck: Supple, no evidence of any JVD, trachea midline, no thyromegaly Chest: Clear to auscultation, no crackles, rales or wheezes Heart: Regular rhythm, tachycardic, S1-S2 heard, no S3-S4, no pericardial rub Abdomen: Soft, nontender, no renal bruit, no suprapubic masses no CVA tenderness Extremity: No peripheral cyanosis, edema and dry skin Neurological: Alert, awake, no asterixis Dermatology; no skin rashes Back: Nontender thoracolumbar spine, no CVA tenderness Psych: No agitation and aggression Musculoskeletal: No joint effusion noted - Vital Signs Vital signs: Vital Signs - 12hr 03/22/20 03/22/20 03/23/20 22:10 23:21 03:46 Temperature 99.1 F 99.0 F Pulse Rate 94 H 90 Respiratory 18 20 18 Rate Blood Pressure 120/79 136/74 O2 Sat by Pulse 94 96 Oximetry 03/23/20 07:54 Temperature 98.9 F Pulse Rate 107 H Respiratory 20 Rate Blood Pressure 150/82 O2 Sat by Pulse 96 Oximetry - Lab 03/19/20 05:55 03/23/20 04:23 Most recent lab results ABG pH 7.420 pH Units (7.350-7.450) 03/15/20 13:20 ABG pCO2 45.5 mm Hg 03/15/20 13:20 ABG pO2 85.8 mm Hg (80.0-90.0) 03/15/20 13:20 ABG HCO3 28.9 mmol/L (20.0-26.0) H 03/15/20 13:20 ABG O2 Saturation 97.1 % (95.0-99.0) 03/15/20 13:20 Calcium 9.9 mg/dL (8.4-10.2) 03/23/20 04:23 Phosphorus 6.10 mg/dL (2.5-4.5) H 03/01/20 04:37 Magnesium 2.00 mg/dL (1.7-2.3) 03/07/20 05:03 Urine Creatinine 278.4 mg/dL (0.1-20.0) H 03/18/20 14:00 Urine Total Protein 150 mg/dL (5-11.8) H 02/25/20 22:55 Medications & Allergies - Medications Allergies/Adverse Reactions: Allergies No Known Allergies Allergy (Unverified 09/05/19 10:15) Home Medications: Home Medications Medication Instructions Recorded Confirmed Last Taken Type Amlodipine Besylate [Norvasc] 10 mg PO DAILY 09/05/19 02/24/20 09/04/19 History Furosemide [Lasix] 20 mg PO QDAY #30 tablet 09/05/19 02/24/20 Unknown Rx Lisinopril [Zestril] 5 mg PO DAILY #30 tablet 09/05/19 02/24/20 Unknown Rx Metoprolol [Lopressor TAB] 25 mg PO BID #60 tablet 09/05/19 02/24/20 Unknown Rx Active Medications: Generic Name Dose Route Start Last Admin Trade Name Freq PRN Reason Stop Dose Admin Acetaminophen 650 mg 02/26/20 16:23 03/14/20 22:03 Tylenol PO 650 mg Q4H PRN Administration Pain, Mild (1-3)/ Temp >100. Albuterol 2.5 mg 02/27/20 17:55 Proventil IH Q4HRT PRN Shortness Of Breath Aspirin 325 mg 03/15/20 11:00 03/22/20 10:56 Aspirin PO 325 mg QDAY INDU Administration Dextrose 50 ml 02/29/20 08:00 03/01/20 00:20 D50w (25gm) Syringe IV 10 ml Q30MIN PRN Administration HYPOGLYCEMIA Protocol Epoetin Prosper 10,000 unit 03/12/20 10:00 03/20/20 16:00 Procrit IV 10,000 unit NIKOLAY PRN Administration hemodialysis Famotidine 20 mg 03/23/20 10:00 Pepcid PO QDAY INDU Heparin Sodium (Porcine) 5,000 unit 03/11/20 14:00 03/23/20 05:05 Heparin SUB-Q 5,000 unit Q8HR INDU Administration Hydralazine HCl 100 mg 03/22/20 08:30 03/23/20 05:05 Apresoline PO 100 mg Q8HR INDU Administration Hydrophilic Ointment 1 applic 03/11/20 06:01 Vaseline Lip Therapy TP Q2HR PRN Dry Lips Sodium Chloride 100 mls @ 999 mls/hr 03/08/20 17:05 Nacl 0.9% IV NIKOLAY PRN Hypotension Labetalol HCl 10 mg 02/28/20 09:00 03/11/20 03:04 Labetalol IV 10 mg Q4H PRN Administration Hypertension Metoprolol Tartrate 25 mg 02/28/20 10:00 03/22/20 21:56 Metoprolol PO 25 mg BID INDU Administration Morphine Sulfate 2 mg 03/11/20 05:13 03/22/20 22:10 Morphine IV 2 mg Q4H PRN Administration Pain, Moderate (4-6) Multi-Ingred Cream/Lotion/Oil/Oint 1 applic 03/11/20 06:01 Artificial Tears Ophth Oint OU Q4HR PRN Dry Eye(s) Nifedipine 60 mg 03/22/20 10:00 03/22/20 21:56 Procardia Xl PO 60 mg Q12HR INDU Administration Nitroglycerin 0.4 mg 03/11/20 05:14 Nitrostat SL .Q5MIN PRN Chest Pain Ondansetron HCl 4 mg 02/24/20 06:45 02/25/20 23:33 Zofran IV 4 mg Q8H PRN Administration Nausea And Vomiting Quetiapine Fumarate 100 mg 03/16/20 22:00 03/22/20 21:56 Seroquel PO 100 mg QHS INDU Administration Sodium Chloride 10 ml 02/24/20 10:00 03/22/20 21:57 Sodium Chloride Flush Syringe 10 Ml IV 10 ml BID INDU Administration Sodium Chloride 10 ml 02/24/20 06:45 03/10/20 09:06 Sodium Chloride Flush Syringe 10 Ml IV 10 ml PRN PRN Administration LINE FLUSH
[2020-03-23] MEDS: METOPROLOL TARTRATE 25 MG TAB PO SCH ×2 (14:12→21:08)
[2020-03-23] MEDS: ASPIRIN 325 MG TAB PO SCH (14:12)
[2020-03-23] MEDS: NIFEdipine XL 60 MG TAB PO SCH ×2 (14:12→21:08)
[2020-03-23] MEDS: FAMOTIDINE 20 MG TAB PO SCH (14:12)
--- NOTE | 2020-03-23 15:49 | Progress Note ---
Assessment and Plan Cultures: Urine culture grew 10-100,000 usual xavier. Blood culture 02/26/2020 no growth 02/29/2020 sputum culture: rare usual xavier 03/06/2020 blood culture: no growth 03/07/2020 sputum culture: Ana Luisa 03/11/2020 ET aspirate: no growth thus far Assessment: 39 years old female with history of hypertension, previous kidney stone, hyperlipidemia and obesity admitted on 02/24/2020 due to a week history of severe epigastric abdominal pain radiated to the right flank and back: #Acute sepsis: Likely secondary to severe pancreatitis and related complications. Remains critically ill. #Acute severe pancreatitis: Unclear etiology. Initial non-contrasted CT showed no evidence of necrosis or pseudocyst or abscess formation. Repeat CT 03/05 with interval worsening of acute pancreatitis without clear evidence of necrosis, however was done without IV contrast due to her renal function. Ongoing fevers likely to due severe pancreatitis and ?related complications #Acute renal failure: now requiring dialysis. Nephrology on board. #Acute respiratory hypoxic failure: re-intubated 03/11/2020, back on the vent. #?Alcohol abuse Recommendations: -Monitor off antibiotics -Monitor fever, if more than 100 please obtain blood cultures We will sign off. Please call for questions Alan Lim MD [facility] M: [phone] O: [phone] F: [phone] Subjective Date of service: 03/23/20 Principal diagnosis: HTNsive urgency; Morbid obesity; Ac. pancreatitis; Abdominal pain Interval history: Afebrile, no acute changes at present. Permacath placement today. Objective - Exam Narrative Exam: General appearance: Alert no acute distress intubated Eyes: anicteric sclerae, limited HENT: Atraumatic; oropharynx endotracheal tube in place Lungs: Diminished breath sounds bilaterally CV: RRR Abdomen: Soft, distended, nontender Extremities: no edema, no cyanosis Skin: No rash. Psych: Nonagitated Neuro: Alert follows commands - Constitutional Vitals: Vital Signs Temp Pulse Resp BP Pulse Ox 98.0 F 115 H 18 157/118 100 03/23/20 13:30 03/23/20 14:12 03/23/20 13:30 03/23/20 14:12 03/23/20 13:30 Temperature -Last 24 Hours Temperature 98.0 F Temperature 98.0 F Temperature 98.9 F Temperature 99.0 F Temperature 99.1 F Temperature 99.3 F - Labs CBC & Chem 7: 03/19/20 05:55 03/23/20 04:23 Labs: Abnormal lab results 03/23/20 Range/Units 04:23 Chloride 97.9 L (98-107) mmol/L BUN 39 H (7-17) mg/dL Creatinine 4.3 H (0.6-1.2) mg/dL
--- NOTE | 2020-03-23 17:29 | Progress Note ---
Assessment and Plan Patient awake. On room air. O2 saturation 94%. No complaint of chest pain, shortness of breath or cough. Patient admitted for pancreatitis. Patient initially complained dyspnea. No dyspnea now. Patient afebrile. Has leukocytosis. Patient scheduled for Permama cath placement for dialysis tomorrow. - Patient Problems (1) Dyspnea Current Visit: Yes Status: Acute Plan to address problem: Improved. No complaint of dyspnea to day. O2 saturation 94% on room air. (2) Acute pancreatitis Current Visit: Yes Status: Acute Plan to address problem: Management as per primary care. (3) Hypertensive urgency Current Visit: Yes Status: Acute Plan to address problem: Management as per primary care. (4) Renal failure Current Visit: Yes Status: Acute Plan to address problem: Management as per nephrology. Patient is on dialysis. Patient scheduled for Perma cath placement tomorrow. Subjective Date of service: 03/23/20 Principal diagnosis: HTNsive urgency; Morbid obesity; Ac. pancreatitis; Abdominal pain Interval history: Patient awake. On room air. O2 saturation 94%. No complaint of chest pain, shortness of breath or cough. Patient admitted for pancreatitis. Patient initially complained dyspnea. No dyspnea now. Patient afebrile. Has leukocytosis. Patient scheduled for Perma cath placement for dialysis tomorrow. Objective Vital Signs - 12hr 03/23/20 03/23/20 03/23/20 07:54 08:00 09:45 Temperature 98.9 F 98.0 F Pulse Rate 107 H 96 H Pulse Rate [ 93 H From Monitor] Respiratory 20 20 18 Rate Blood Pressure 150/82 165/90 O2 Sat by Pulse 96 96 Oximetry O2 Sat by Pulse Oximetry [Left Upper Lobe] 03/23/20 03/23/20 03/23/20 10:00 10:15 10:30 Temperature Pulse Rate 96 H 96 H 96 H Pulse Rate [ From Monitor] Respiratory Rate Blood Pressure 154/114 160/98 160/90 O2 Sat by Pulse Oximetry O2 Sat by Pulse Oximetry [Left Upper Lobe] 03/23/20 03/23/20 03/23/20 10:45 11:00 11:15 Temperature Pulse Rate 98 H 106 H 100 H Pulse Rate [ From Monitor] Respiratory Rate Blood Pressure 152/100 178/110 158/106 O2 Sat by Pulse Oximetry O2 Sat by Pulse Oximetry [Left Upper Lobe] 03/23/20 03/23/20 03/23/20 11:30 11:45 12:00 Temperature Pulse Rate 105 H 101 H 101 H Pulse Rate [ From Monitor] Respiratory Rate Blood Pressure 172/78 181/111 163/112 O2 Sat by Pulse Oximetry O2 Sat by Pulse Oximetry [Left Upper Lobe] 03/23/20 03/23/20 03/23/20 12:15 12:30 12:45 Temperature Pulse Rate 104 H 102 H 102 H Pulse Rate [ From Monitor] Respiratory Rate Blood Pressure 166/114 167/99 152/103 O2 Sat by Pulse Oximetry O2 Sat by Pulse Oximetry [Left Upper Lobe] 03/23/20 03/23/20 03/23/20 13:00 13:15 13:30 Temperature 98.0 F Pulse Rate 100 H 98 H 90 Pulse Rate [ From Monitor] Respiratory 18 Rate Blood Pressure 185/115 170/100 174/90 O2 Sat by Pulse Oximetry O2 Sat by Pulse 100 Oximetry [Left Upper Lobe] 03/23/20 03/23/20 03/23/20 14:10 14:12 16:06 Temperature 98.8 F 97.9 F Pulse Rate 113 H 115 H 95 H Pulse Rate [ From Monitor] Respiratory 20 20 Rate Blood Pressure 157/118 157/118 136/83 O2 Sat by Pulse 98 94 Oximetry O2 Sat by Pulse Oximetry [Left Upper Lobe] Constitutional: no acute distress, alert Eyes: non-icteric ENT: oropharynx moist, other (Right IJ trialysis catheter) Neck: supple, no lymphadenopathy, no JVD, other (RIJ HD catheter) Effort: normal Ascultation: Bilateral: diminished breath sounds (at the bases) Percussion: Bilateral: not dull Cardiovascular: regular rate and rhythm, other (S1,S2) Gastrointestinal: normoactive bowel sounds, hypoactive bowel sounds, soft, non- tender, non-distended Integumentary: normal Extremities: no cyanosis, no edema, pink and warm, pulses normal Neurologic: normal mental status, non-focal exam, pupils equal and round, CN II- XII normal, motor strength normal and Psychiatric: tearful CBC and BMP: 03/19/20 05:55 03/23/20 04:23 ABG, PT/INR, D-dimer: ABG ABG pH 7.420 pH Units (7.350-7.450) 03/15/20 13:20 POC ABG pCO2 40.5 mmHg (32.0-48.0) 03/13/20 14:23 ABG pCO2 45.5 mm Hg 03/15/20 13:20 POC ABG pO2 75.1 mmHg (83-108) L 03/13/20 14:23 ABG pO2 85.8 mm Hg (80.0-90.0) 03/15/20 13:20 POC ABG HCO3 28.3 03/13/20 14:23 ABG O2 Saturation 97.1 % (95.0-99.0) 03/15/20 13:20 PT/INR, D-dimer PT 14.1 Sec. (12.2-14.9) 03/11/20 07:31 INR 1.07 (0.87-1.13) 03/11/20 07:31 Abnormal lab findings: Abnormal Labs 02/24/20 02/24/20 02/24/20 02:53 02:53 Unknown WBC 12.7 H Hgb 10.0 L RBC Hct MCV 70 L MCH 22 L RDW 17.9 H Plt Count 458 H Lymph % (Auto) 8.9 L Lymph # 1.1 L [place] % (Auto) [place] # Eos % (Auto) Lymph # (Auto) [place] # (Auto) Eos # (Auto) Seg Neutrophils % 84.2 H Baso # (Auto) Seg Neutrophils # 10.7 H Seg Neuts % (Manual) Lymphocytes % (Manual) Monocytes % (Manual) Nucleated RBC % Seg Neutrophils # Man Lymphocytes # (Manual) Monocytes # (Manual) Eosinophils # (Manual) Basophils # (Manual) ABG pH POC ABG pCO2 POC ABG pO2 ABG pO2 ABG HCO3 ABG O2 Saturation ABG Base Excess ABG Hemoglobin ABG Oxyhemoglobin ABG Sodium ABG Glucose Oxyhemoglobin Sodium Potassium Chloride Carbon Dioxide BUN 27 H Creatinine 1.7 H Glucose 118 H POC Glucose Calcium Phosphorus Magnesium Direct Bilirubin AST Alkaline Phosphatase Albumin Troponin T C-Reactive Protein Aenny-7-Fesqztjye PEP Interpretation Triglycerides Lipase 232 H HDL Cholesterol PTH Intact Arterial Blood Glucose Arterial Blood Ionized Calcium Urine WBC (Auto) 11.0 H Urine Creatinine Ur Creatinine 24 Hour Urine Total Protein ZINA Screen Crossmatch 02/25/20 02/25/20 02/25/20 00:03 03:49 03:49 WBC 29.1 H Hgb 9.4 L RBC Hct 30.2 L MCV 71 L MCH 22 L RDW 18.3 H Plt Count 525 H Lymph % (Auto) 3.4 L Lymph # 1.0 L [place] % (Auto) [place] # 1.0 H Eos % (Auto) Lymph # (Auto) [place] # (Auto) Eos # (Auto) Seg Neutrophils % Baso # (Auto) Seg Neutrophils # 26.4 H Seg Neuts % (Manual) Lymphocytes % (Manual) Monocytes % (Manual) Nucleated RBC % Seg Neutrophils # Man Lymphocytes # (Manual) Monocytes # (Manual) Eosinophils # (Manual) Basophils # (Manual) ABG pH POC ABG pCO2 POC ABG pO2 ABG pO2 ABG HCO3 ABG O2 Saturation ABG Base Excess ABG Hemoglobin ABG Oxyhemoglobin ABG Sodium ABG Glucose Oxyhemoglobin Sodium Potassium Chloride Carbon Dioxide BUN Creatinine Glucose POC Glucose 126 H Calcium Phosphorus Magnesium Direct Bilirubin AST Alkaline Phosphatase Albumin Troponin T C-Reactive Protein Nheql-7-Bqtgpelfg PEP Interpretation Triglycerides Lipase 1486 H HDL Cholesterol PTH Intact Arterial Blood Glucose Arterial Blood Ionized Calcium Urine WBC (Auto) Urine Creatinine Ur Creatinine 24 Hour Urine Total Protein ZINA Screen Crossmatch 02/25/20 02/25/20 02/25/20 03:49 05:55 22:55 WBC Hgb RBC Hct MCV MCH RDW Plt Count Lymph % (Auto) Lymph # [place] % (Auto) [place] # Eos % (Auto) Lymph # (Auto) [place] # (Auto) Eos # (Auto) Seg Neutrophils % Baso # (Auto) Seg Neutrophils # Seg Neuts % (Manual) Lymphocytes % (Manual) Monocytes % (Manual) Nucleated RBC % Seg Neutrophils # Man Lymphocytes # (Manual) Monocytes # (Manual) Eosinophils # (Manual) Basophils # (Manual) ABG pH POC ABG pCO2 POC ABG pO2 ABG pO2 ABG HCO3 ABG O2 Saturation ABG Base Excess ABG Hemoglobin ABG Oxyhemoglobin ABG Sodium ABG Glucose Oxyhemoglobin Sodium 136 L Potassium Chloride 97.9 L Carbon Dioxide 21 L BUN 39 H Creatinine 3.0 H D Glucose 118 H POC Glucose 124 H Calcium Phosphorus Magnesium Direct Bilirubin AST Alkaline Phosphatase Albumin 3.6 L Troponin T C-Reactive Protein Pwmba-5-Nnzfkwjip PEP Interpretation Triglycerides Lipase HDL Cholesterol PTH Intact Arterial Blood Glucose Arterial Blood Ionized Calcium Urine WBC (Auto) Urine Creatinine 161.0 H Ur Creatinine 24 Hour Urine Total Protein 150 H ZINA Screen Crossmatch 02/26/20 02/26/20 02/26/20 04:39 04:39 04:39 WBC 30.3 H Hgb 9.1 L RBC Hct 29.8 L MCV 71 L MCH 22 L RDW 18.2 H Plt Count 530 H Lymph % (Auto) Lymph # [place] % (Auto) [place] # Eos % (Auto) Lymph # (Auto) [place] # (Auto) Eos # (Auto) Seg Neutrophils % Baso # (Auto) Seg Neutrophils # Seg Neuts % (Manual) Lymphocytes % (Manual) Monocytes % (Manual) Nucleated RBC % Seg Neutrophils # Man Lymphocytes # (Manual) Monocytes # (Manual) Eosinophils # (Manual) Basophils # (Manual) ABG pH POC ABG pCO2 POC ABG pO2 ABG pO2 ABG HCO3 ABG O2 Saturation ABG Base Excess ABG Hemoglobin ABG Oxyhemoglobin ABG Sodium ABG Glucose Oxyhemoglobin Sodium Potassium Chloride Carbon Dioxide 19 L BUN 44 H Creatinine 3.1 H Glucose 106 H POC Glucose Calcium 8.1 L Phosphorus Magnesium Direct Bilirubin AST Alkaline Phosphatase Albumin Troponin T C-Reactive Protein Ycmzj-1-Mdgnrgvpa PEP Interpretation Triglycerides Lipase 540 H HDL Cholesterol PTH Intact Arterial Blood Glucose Arterial Blood Ionized Calcium Urine WBC (Auto) Urine Creatinine Ur Creatinine 24 Hour Urine Total Protein ZINA Screen Positive H Crossmatch 02/26/20 02/26/20 02/26/20 04:39 08:15 12:14 WBC Hgb RBC Hct MCV MCH RDW Plt Count Lymph % (Auto) Lymph # [place] % (Auto) [place] # Eos % (Auto) Lymph # (Auto) [place] # (Auto) Eos # (Auto) Seg Neutrophils % Baso # (Auto) Seg Neutrophils # Seg Neuts % (Manual) Lymphocytes % (Manual) Monocytes % (Manual) Nucleated RBC % Seg Neutrophils # Man Lymphocytes # (Manual) Monocytes # (Manual) Eosinophils # (Manual) Basophils # (Manual) ABG pH POC ABG pCO2 POC ABG pO2 ABG pO2 ABG HCO3 ABG O2 Saturation ABG Base Excess ABG Hemoglobin ABG Oxyhemoglobin ABG Sodium ABG Glucose Oxyhemoglobin Sodium Potassium Chloride Carbon Dioxide BUN Creatinine Glucose POC Glucose 112 H Calcium Phosphorus Magnesium Direct Bilirubin AST Alkaline Phosphatase Albumin 2.8 L Troponin T C-Reactive Protein Tqaba-9-Muvkgqiyt 0.7 H PEP Interpretation see below H Triglycerides Lipase HDL Cholesterol PTH Intact 911.3 H Arterial Blood Glucose Arterial Blood Ionized Calcium Urine WBC (Auto) Urine Creatinine Ur Creatinine 24 Hour Urine Total Protein ZINA Screen Crossmatch 02/27/20 02/27/20 02/27/20 04:18 04:18 04:18 WBC 26.8 H Hgb 7.9 L RBC Hct 26.3 L MCV 70 L MCH 21 L RDW 18.0 H Plt Count 513 H Lymph % (Auto) Lymph # [place] % (Auto) [place] # Eos % (Auto) Lymph # (Auto) [place] # (Auto) Eos # (Auto) Seg Neutrophils % Baso # (Auto) Seg Neutrophils # Seg Neuts % (Manual) Lymphocytes % (Manual) Monocytes % (Manual) Nucleated RBC % Seg Neutrophils # Man Lymphocytes # (Manual) Monocytes # (Manual) Eosinophils # (Manual) Basophils # (Manual) ABG pH POC ABG pCO2 POC ABG pO2 ABG pO2 ABG HCO3 ABG O2 Saturation ABG Base Excess ABG Hemoglobin ABG Oxyhemoglobin ABG Sodium ABG Glucose Oxyhemoglobin Sodium 135 L 135 L Potassium Chloride Carbon Dioxide 15 L 16 L BUN 50 H 51 H Creatinine 3.4 H 3.4 H Glucose POC Glucose Calcium 7.4 L 7.5 L Phosphorus Magnesium Direct Bilirubin AST Alkaline Phosphatase Albumin 3.0 L Troponin T C-Reactive Protein 37.30 H Pxajj-2-Unqvcilwr PEP Interpretation Triglycerides Lipase 177 H HDL Cholesterol PTH Intact Arterial Blood Glucose Arterial Blood Ionized Calcium Urine WBC (Auto) Urine Creatinine Ur Creatinine 24 Hour Urine Total Protein ZINA Screen Crossmatch 02/27/20 02/28/20 02/28/20 16:57 05:07 05:07 WBC Hgb RBC Hct MCV MCH RDW Plt Count Lymph % (Auto) Lymph # [place] % (Auto) [place] # Eos % (Auto) Lymph # (Auto) [place] # (Auto) Eos # (Auto) Seg Neutrophils % Baso # (Auto) Seg Neutrophils # Seg Neuts % (Manual) Lymphocytes % (Manual) Monocytes % (Manual) Nucleated RBC % Seg Neutrophils # Man Lymphocytes # (Manual) Monocytes # (Manual) Eosinophils # (Manual) Basophils # (Manual) ABG pH 7.336 L POC ABG pCO2 POC ABG pO2 ABG pO2 57.0 L ABG HCO3 16.4 L ABG O2 Saturation 88.2 L ABG Base Excess -8.4 L ABG Hemoglobin 10.4 L ABG Oxyhemoglobin ABG Sodium ABG Glucose Oxyhemoglobin 85.7 L Sodium Potassium Chloride Carbon Dioxide 14 L BUN 60 H Creatinine 4.2 H Glucose POC Glucose Calcium 8.2 L Phosphorus Magnesium Direct Bilirubin AST Alkaline Phosphatase Albumin Troponin T C-Reactive Protein Rnvur-3-Immwncals PEP Interpretation Triglycerides Lipase 155 H HDL Cholesterol PTH Intact Arterial Blood Glucose Arterial Blood Ionized Calcium Urine WBC (Auto) Urine Creatinine Ur Creatinine 24 Hour Urine Total Protein ZINA Screen Crossmatch 02/28/20 02/28/20 02/28/20 05:56 11:05 11:05 WBC Hgb RBC Hct MCV MCH RDW Plt Count Lymph % (Auto) Lymph # [place] % (Auto) [place] # Eos % (Auto) Lymph # (Auto) [place] # (Auto) Eos # (Auto) Seg Neutrophils % Baso # (Auto) Seg Neutrophils # Seg Neuts % (Manual) Lymphocytes % (Manual) Monocytes % (Manual) Nucleated RBC % Seg Neutrophils # Man Lymphocytes # (Manual) Monocytes # (Manual) Eosinophils # (Manual) Basophils # (Manual) ABG pH 7.317 L POC ABG pCO2 POC ABG pO2 76.2 L ABG pO2 ABG HCO3 16.4 L ABG O2 Saturation ABG Base Excess -8.9 L ABG Hemoglobin 6.6 L 7.6 L ABG Oxyhemoglobin ABG Sodium ABG Glucose Oxyhemoglobin 94.6 L Sodium Potassium Chloride Carbon Dioxide BUN Creatinine Glucose POC Glucose 115 H Calcium Phosphorus Magnesium Direct Bilirubin AST Alkaline Phosphatase Albumin Troponin T C-Reactive Protein Eqvwn-0-Bsooaezat PEP Interpretation Triglycerides Lipase HDL Cholesterol PTH Intact Arterial Blood Glucose Arterial Blood Ionized Calcium Urine WBC (Auto) Urine Creatinine Ur Creatinine 24 Hour Urine Total Protein ZINA Screen Crossmatch 02/28/20 02/28/20 02/29/20 17:39 19:39 05:43 WBC Hgb RBC Hct MCV MCH RDW Plt Count Lymph % (Auto) Lymph # [place] % (Auto) [place] # Eos % (Auto) Lymph # (Auto) [place] # (Auto) Eos # (Auto) Seg Neutrophils % Baso # (Auto) Seg Neutrophils # Seg Neuts % (Manual) Lymphocytes % (Manual) Monocytes % (Manual) Nucleated RBC % Seg Neutrophils # Man Lymphocytes # (Manual) Monocytes # (Manual) Eosinophils # (Manual) Basophils # (Manual) ABG pH 7.300 L POC ABG pCO2 POC ABG pO2 ABG pO2 117.5 H ABG HCO3 15.0 L ABG O2 Saturation ABG Base Excess -10.5 L ABG Hemoglobin 6.4 L ABG Oxyhemoglobin ABG Sodium ABG Glucose Oxyhemoglobin Sodium Potassium Chloride Carbon Dioxide BUN Creatinine Glucose POC Glucose 120 H 66 L Calcium Phosphorus Magnesium Direct Bilirubin AST Alkaline Phosphatase Albumin Troponin T C-Reactive Protein Lkuqd-9-Otnenszrx PEP Interpretation Triglycerides Lipase HDL Cholesterol PTH Intact Arterial Blood Glucose Arterial Blood Ionized Calcium Urine WBC (Auto) Urine Creatinine Ur Creatinine 24 Hour Urine Total Protein ZINA Screen Crossmatch 02/29/20 02/29/20 02/29/20 05:45 12:04 12:31 WBC Hgb RBC Hct MCV MCH RDW Plt Count Lymph % (Auto) Lymph # [place] % (Auto) [place] # Eos % (Auto) Lymph # (Auto) [place] # (Auto) Eos # (Auto) Seg Neutrophils % Baso # (Auto) Seg Neutrophils # Seg Neuts % (Manual) Lymphocytes % (Manual) Monocytes % (Manual) Nucleated RBC % Seg Neutrophils # Man Lymphocytes # (Manual) Monocytes # (Manual) Eosinophils # (Manual) Basophils # (Manual) ABG pH 7.212 L POC ABG pCO2 POC ABG pO2 ABG pO2 ABG HCO3 ABG O2 Saturation ABG Base Excess ABG Hemoglobin 7.4 L ABG Oxyhemoglobin ABG Sodium ABG Glucose Oxyhemoglobin Sodium Potassium Chloride Carbon Dioxide BUN Creatinine Glucose POC Glucose 65 L 64 L Calcium Phosphorus Magnesium Direct Bilirubin AST Alkaline Phosphatase Albumin Troponin T C-Reactive Protein Hteeo-8-Eyqbppzql PEP Interpretation Triglycerides Lipase HDL Cholesterol PTH Intact Arterial Blood Glucose Arterial Blood Ionized Calcium Urine WBC (Auto) Urine Creatinine Ur Creatinine 24 Hour Urine Total Protein ZINA Screen Crossmatch 02/29/20 02/29/20 02/29/20 14:22 14:22 18:20 WBC Hgb RBC Hct MCV MCH RDW Plt Count Lymph % (Auto) Lymph # [place] % (Auto) [place] # Eos % (Auto) Lymph # (Auto) [place] # (Auto) Eos # (Auto) Seg Neutrophils % Baso # (Auto) Seg Neutrophils # Seg Neuts % (Manual) Lymphocytes % (Manual) Monocytes % (Manual) Nucleated RBC % Seg Neutrophils # Man Lymphocytes # (Manual) Monocytes # (Manual) Eosinophils # (Manual) Basophils # (Manual) ABG pH POC ABG pCO2 POC ABG pO2 ABG pO2 ABG HCO3 ABG O2 Saturation ABG Base Excess ABG Hemoglobin ABG Oxyhemoglobin ABG Sodium ABG Glucose Oxyhemoglobin Sodium Potassium Chloride Carbon Dioxide 16 L BUN 77 H Creatinine 4.7 H Glucose POC Glucose 66 L Calcium Phosphorus 7.50 H Magnesium 2.60 H Direct Bilirubin AST Alkaline Phosphatase Albumin 2.3 L Troponin T C-Reactive Protein Qjzmt-5-Peshynquy PEP Interpretation Triglycerides Lipase HDL Cholesterol PTH Intact Arterial Blood Glucose Arterial Blood Ionized Calcium Urine WBC (Auto) Urine Creatinine Ur Creatinine 24 Hour Urine Total Protein ZINA Screen Crossmatch 02/29/20 03/01/20 03/01/20 18:24 04:05 04:37 WBC Hgb RBC Hct MCV MCH RDW Plt Count Lymph % (Auto) Lymph # [place] % (Auto) [place] # Eos % (Auto) Lymph # (Auto) [place] # (Auto) Eos # (Auto) Seg Neutrophils % Baso # (Auto) Seg Neutrophils # Seg Neuts % (Manual) Lymphocytes % (Manual) Monocytes % (Manual) Nucleated RBC % Seg Neutrophils # Man Lymphocytes # (Manual) Monocytes # (Manual) Eosinophils # (Manual) Basophils # (Manual) ABG pH 7.271 L 7.347 L POC ABG pCO2 POC ABG pO2 ABG pO2 133.5 H ABG HCO3 15.8 L ABG O2 Saturation ABG Base Excess -8.9 L ABG Hemoglobin 7.2 L 7.6 L ABG Oxyhemoglobin 93.4 L ABG Sodium ABG Glucose Oxyhemoglobin Sodium Potassium Chloride 107.6 H Carbon Dioxide 14 L BUN 83 H Creatinine 5.6 H Glucose POC Glucose Calcium Phosphorus 6.10 H Magnesium 2.40 H Direct Bilirubin AST Alkaline Phosphatase Albumin Troponin T C-Reactive Protein Pwade-0-Cbaactfwk PEP Interpretation Triglycerides Lipase HDL Cholesterol PTH Intact Arterial Blood Glucose Arterial Blood Ionized Calcium Urine WBC (Auto) Urine Creatinine Ur Creatinine 24 Hour Urine Total Protein ZINA Screen Crossmatch 03/01/20 03/01/20 03/01/20 11:06 16:22 18:12 WBC 30.5 H Hgb 6.2 L RBC 2.92 L Hct 20.8 L MCV 71 L MCH 21 L RDW 18.2 H Plt Count 560 H Lymph % (Auto) Lymph # [place] % (Auto) [place] # Eos % (Auto) Lymph # (Auto) [place] # (Auto) Eos # (Auto) Seg Neutrophils % Baso # (Auto) Seg Neutrophils # Seg Neuts % (Manual) 79.0 H Lymphocytes % (Manual) 3.0 L Monocytes % (Manual) Nucleated RBC % Seg Neutrophils # Man 24.1 H Lymphocytes # (Manual) 0.9 L Monocytes # (Manual) 2.1 H Eosinophils # (Manual) Basophils # (Manual) ABG pH POC ABG pCO2 POC ABG pO2 ABG pO2 ABG HCO3 ABG O2 Saturation ABG Base Excess ABG Hemoglobin ABG Oxyhemoglobin ABG Sodium ABG Glucose Oxyhemoglobin Sodium Potassium 5.3 H D Chloride Carbon Dioxide 11 L BUN 77 H Creatinine 5.0 H Glucose 54 L POC Glucose 121 H Calcium Phosphorus Magnesium Direct Bilirubin AST Alkaline Phosphatase Albumin 3.0 L Troponin T C-Reactive Protein 36.50 H Ztorj-9-Kzztlzqwb PEP Interpretation Triglycerides Lipase HDL Cholesterol PTH Intact Arterial Blood Glucose Arterial Blood Ionized Calcium Urine WBC (Auto) Urine Creatinine Ur Creatinine 24 Hour Urine Total Protein ZINA Screen Crossmatch 03/01/20 03/01/20 03/01/20 18:30 23:37 Unknown WBC Hgb RBC Hct MCV MCH RDW Plt Count Lymph % (Auto) Lymph # [place] % (Auto) [place] # Eos % (Auto) Lymph # (Auto) [place] # (Auto) Eos # (Auto) Seg Neutrophils % Baso # (Auto) Seg Neutrophils # Seg Neuts % (Manual) Lymphocytes % (Manual) Monocytes % (Manual) Nucleated RBC % Seg Neutrophils # Man Lymphocytes # (Manual) Monocytes # (Manual) Eosinophils # (Manual) Basophils # (Manual) ABG pH POC ABG pCO2 POC ABG pO2 ABG pO2 ABG HCO3 ABG O2 Saturation ABG Base Excess ABG Hemoglobin ABG Oxyhemoglobin ABG Sodium ABG Glucose Oxyhemoglobin Sodium Potassium Chloride Carbon Dioxide BUN Creatinine Glucose POC Glucose 125 H Calcium Phosphorus Magnesium Direct Bilirubin AST Alkaline Phosphatase Albumin Troponin T C-Reactive Protein Ymysn-7-Nqsnydepf PEP Interpretation Triglycerides Lipase 297 H HDL Cholesterol PTH Intact Arterial Blood Glucose Arterial Blood Ionized Calcium Urine WBC (Auto) Urine Creatinine Ur Creatinine 24 Hour Urine Total Protein ZINA Screen Crossmatch See Detail 03/02/20 03/02/20 03/02/20 04:00 05:36 05:36 WBC 26.0 H Hgb 7.8 L RBC 3.26 L Hct 24.2 L MCV 74 L MCH 24 L RDW 21.3 H Plt Count 508 H Lymph % (Auto) Lymph # [place] % (Auto) [place] # Eos % (Auto) Lymph # (Auto) [place] # (Auto) Eos # (Auto) Seg Neutrophils % Baso # (Auto) Seg Neutrophils # Seg Neuts % (Manual) 86.0 H Lymphocytes % (Manual) 4.0 L Monocytes % (Manual) Nucleated RBC % 2.0 H Seg Neutrophils # Man 22.4 H Lymphocytes # (Manual) 1.0 L Monocytes # (Manual) Eosinophils # (Manual) Basophils # (Manual) ABG pH POC ABG pCO2 27.8 L POC ABG pO2 ABG pO2 ABG HCO3 ABG O2 Saturation ABG Base Excess ABG Hemoglobin 8 L ABG Oxyhemoglobin ABG Sodium ABG Glucose Oxyhemoglobin Sodium Potassium Chloride Carbon Dioxide 17 L BUN 85 H Creatinine 5.6 H Glucose 109 H POC Glucose Calcium Phosphorus Magnesium 2.50 H Direct Bilirubin AST Alkaline Phosphatase Albumin 2.3 L Troponin T C-Reactive Protein Uryak-9-Ahkodhgah PEP Interpretation Triglycerides Lipase HDL Cholesterol PTH Intact Arterial Blood Glucose Arterial Blood Ionized Calcium Urine WBC (Auto) Urine Creatinine Ur Creatinine 24 Hour Urine Total Protein ZINA Screen Crossmatch 03/03/20 03/03/20 03/03/20 04:00 04:36 04:36 WBC Hgb RBC Hct MCV MCH RDW Plt Count Lymph % (Auto) Lymph # [place] % (Auto) [place] # Eos % (Auto) Lymph # (Auto) [place] # (Auto) Eos # (Auto) Seg Neutrophils % Baso # (Auto) Seg Neutrophils # Seg Neuts % (Manual) Lymphocytes % (Manual) Monocytes % (Manual) Nucleated RBC % Seg Neutrophils # Man Lymphocytes # (Manual) Monocytes # (Manual) Eosinophils # (Manual) Basophils # (Manual) ABG pH POC ABG pCO2 31.8 L POC ABG pO2 ABG pO2 ABG HCO3 ABG O2 Saturation ABG Base Excess ABG Hemoglobin 8.6 L ABG Oxyhemoglobin ABG Sodium ABG Glucose Oxyhemoglobin Sodium 147 H Potassium Chloride 108.4 H Carbon Dioxide 16 L BUN 87 H Creatinine 6.2 H Glucose POC Glucose Calcium Phosphorus Magnesium 2.50 H Direct Bilirubin 1.0 H AST Alkaline Phosphatase Albumin 2.4 L Troponin T C-Reactive Protein Wifpe-4-Frqebptlh PEP Interpretation Triglycerides Lipase 119 H HDL Cholesterol PTH Intact Arterial Blood Glucose Arterial Blood Ionized Calcium Urine WBC (Auto) Urine Creatinine Ur Creatinine 24 Hour Urine Total Protein ZINA Screen Crossmatch 03/03/20 03/03/20 03/03/20 04:36 12:48 17:48 WBC 28.0 H Hgb 8.1 L RBC 3.41 L Hct 25.3 L MCV 74 L MCH 24 L RDW 20.8 H Plt Count 557 H Lymph % (Auto) Lymph # [place] % (Auto) [place] # Eos % (Auto) Lymph # (Auto) [place] # (Auto) Eos # (Auto) Seg Neutrophils % Baso # (Auto) Seg Neutrophils # Seg Neuts % (Manual) 82.0 H Lymphocytes % (Manual) 4.0 L Monocytes % (Manual) Nucleated RBC % Seg Neutrophils # Man 23.0 H Lymphocytes # (Manual) 1.1 L Monocytes # (Manual) 2.0 H Eosinophils # (Manual) Basophils # (Manual) ABG pH POC ABG pCO2 POC ABG pO2 ABG pO2 ABG HCO3 ABG O2 Saturation ABG Base Excess ABG Hemoglobin ABG Oxyhemoglobin ABG Sodium ABG Glucose Oxyhemoglobin Sodium Potassium Chloride Carbon Dioxide BUN Creatinine Glucose POC Glucose 131 H 113 H Calcium Phosphorus Magnesium Direct Bilirubin AST Alkaline Phosphatase Albumin Troponin T C-Reactive Protein Alsct-3-Eivwpwjpz PEP Interpretation Triglycerides Lipase HDL Cholesterol PTH Intact Arterial Blood Glucose Arterial Blood Ionized Calcium Urine WBC (Auto) Urine Creatinine Ur Creatinine 24 Hour Urine Total Protein ZINA Screen Crossmatch 03/03/20 03/04/20 03/04/20 23:43 03:43 04:05 WBC Hgb RBC Hct MCV MCH RDW Plt Count Lymph % (Auto) Lymph # [place] % (Auto) [place] # Eos % (Auto) Lymph # (Auto) [place] # (Auto) Eos # (Auto) Seg Neutrophils % Baso # (Auto) Seg Neutrophils # Seg Neuts % (Manual) Lymphocytes % (Manual) Monocytes % (Manual) Nucleated RBC % Seg Neutrophils # Man Lymphocytes # (Manual) Monocytes # (Manual) Eosinophils # (Manual) Basophils # (Manual) ABG pH POC ABG pCO2 POC ABG pO2 ABG pO2 57.4 L ABG HCO3 27.2 H ABG O2 Saturation 88.6 L ABG Base Excess ABG Hemoglobin ABG Oxyhemoglobin ABG Sodium ABG Glucose Oxyhemoglobin Sodium Potassium 3.3 L Chloride Carbon Dioxide BUN 65 H Creatinine 5.3 H Glucose 152 H POC Glucose 149 H Calcium Phosphorus Magnesium Direct Bilirubin 0.7 H AST Alkaline Phosphatase Albumin 2.5 L Troponin T C-Reactive Protein Ovokn-1-Phejucyjb PEP Interpretation Triglycerides Lipase HDL Cholesterol PTH Intact Arterial Blood Glucose Arterial Blood Ionized Calcium Urine WBC (Auto) Urine Creatinine Ur Creatinine 24 Hour Urine Total Protein ZINA Screen Crossmatch 03/04/20 03/04/20 03/04/20 04:05 05:26 12:21 WBC 30.1 H Hgb 8.2 L RBC 3.44 L Hct 25.2 L MCV 73 L MCH 24 L RDW 20.7 H Plt Count 554 H Lymph % (Auto) 3.3 L Lymph # [place] % (Auto) [place] # Eos % (Auto) Lymph # (Auto) 1.0 L [place] # (Auto) 2.0 H Eos # (Auto) Seg Neutrophils % 88.6 H Baso # (Auto) Seg Neutrophils # 26.6 H Seg Neuts % (Manual) Lymphocytes % (Manual) Monocytes % (Manual) Nucleated RBC % Seg Neutrophils # Man Lymphocytes # (Manual) Monocytes # (Manual) Eosinophils # (Manual) Basophils # (Manual) ABG pH POC ABG pCO2 POC ABG pO2 ABG pO2 ABG HCO3 ABG O2 Saturation ABG Base Excess ABG Hemoglobin ABG Oxyhemoglobin ABG Sodium ABG Glucose Oxyhemoglobin Sodium Potassium Chloride Carbon Dioxide BUN Creatinine Glucose POC Glucose 136 H 155 H Calcium Phosphorus Magnesium Direct Bilirubin AST Alkaline Phosphatase Albumin Troponin T C-Reactive Protein Lrpfu-0-Ninwaqdli PEP Interpretation Triglycerides Lipase HDL Cholesterol PTH Intact Arterial Blood Glucose Arterial Blood Ionized Calcium Urine WBC (Auto) Urine Creatinine Ur Creatinine 24 Hour Urine Total Protein ZINA Screen Crossmatch 03/04/20 03/04/20 03/04/20 18:02 19:00 23:24 WBC Hgb RBC Hct MCV MCH RDW Plt Count Lymph % (Auto) Lymph # [place] % (Auto) [place] # Eos % (Auto) Lymph # (Auto) [place] # (Auto) Eos # (Auto) Seg Neutrophils % Baso # (Auto) Seg Neutrophils # Seg Neuts % (Manual) Lymphocytes % (Manual) Monocytes % (Manual) Nucleated RBC % Seg Neutrophils # Man Lymphocytes # (Manual) Monocytes # (Manual) Eosinophils # (Manual) Basophils # (Manual) ABG pH POC ABG pCO2 POC ABG pO2 ABG pO2 ABG HCO3 ABG O2 Saturation ABG Base Excess ABG Hemoglobin ABG Oxyhemoglobin ABG Sodium ABG Glucose Oxyhemoglobin Sodium Potassium Chloride Carbon Dioxide BUN Creatinine Glucose POC Glucose 124 H 115 H Calcium Phosphorus Magnesium Direct Bilirubin AST Alkaline Phosphatase Albumin Troponin T C-Reactive Protein Xbjbm-4-Iuzikdmms PEP Interpretation Triglycerides Lipase 72 H HDL Cholesterol PTH Intact Arterial Blood Glucose Arterial Blood Ionized Calcium Urine WBC (Auto) Urine Creatinine Ur Creatinine 24 Hour Urine Total Protein ZINA Screen Crossmatch 03/05/20 03/05/20 03/05/20 05:04 05:29 06:00 WBC Hgb RBC Hct MCV MCH RDW Plt Count Lymph % (Auto) Lymph # [place] % (Auto) [place] # Eos % (Auto) Lymph # (Auto) [place] # (Auto) Eos # (Auto) Seg Neutrophils % Baso # (Auto) Seg Neutrophils # Seg Neuts % (Manual) Lymphocytes % (Manual) Monocytes % (Manual) Nucleated RBC % Seg Neutrophils # Man Lymphocytes # (Manual) Monocytes # (Manual) Eosinophils # (Manual) Basophils # (Manual) ABG pH POC ABG pCO2 POC ABG pO2 ABG pO2 62.5 L ABG HCO3 26.4 H ABG O2 Saturation 92.1 L ABG Base Excess ABG Hemoglobin 9.3 L ABG Oxyhemoglobin ABG Sodium ABG Glucose Oxyhemoglobin 89.9 L Sodium Potassium Chloride Carbon Dioxide BUN 54 H Creatinine 5.4 H Glucose 125 H POC Glucose 134 H Calcium Phosphorus Magnesium Direct Bilirubin 0.6 H AST Alkaline Phosphatase 133 H Albumin 2.5 L Troponin T C-Reactive Protein Jwget-2-Iuabbdygb PEP Interpretation Triglycerides Lipase HDL Cholesterol PTH Intact Arterial Blood Glucose Arterial Blood Ionized Calcium Urine WBC (Auto) Urine Creatinine Ur Creatinine 24 Hour Urine Total Protein ZINA Screen Crossmatch 03/05/20 03/05/20 03/05/20 12:18 18:01 21:39 WBC Hgb RBC Hct MCV MCH RDW Plt Count Lymph % (Auto) Lymph # [place] % (Auto) [place] # Eos % (Auto) Lymph # (Auto) [place] # (Auto) Eos # (Auto) Seg Neutrophils % Baso # (Auto) Seg Neutrophils # Seg Neuts % (Manual) Lymphocytes % (Manual) Monocytes % (Manual) Nucleated RBC % Seg Neutrophils # Man Lymphocytes # (Manual) Monocytes # (Manual) Eosinophils # (Manual) Basophils # (Manual) ABG pH POC ABG pCO2 POC ABG pO2 ABG pO2 ABG HCO3 ABG O2 Saturation ABG Base Excess ABG Hemoglobin ABG Oxyhemoglobin ABG Sodium ABG Glucose Oxyhemoglobin Sodium Potassium Chloride Carbon Dioxide BUN Creatinine Glucose POC Glucose 118 H 108 H 123 H Calcium Phosphorus Magnesium Direct Bilirubin AST Alkaline Phosphatase Albumin Troponin T C-Reactive Protein Gqkrp-5-Ugozuugnz PEP Interpretation Triglycerides Lipase HDL Cholesterol PTH Intact Arterial Blood Glucose Arterial Blood Ionized Calcium Urine WBC (Auto) Urine Creatinine Ur Creatinine 24 Hour Urine Total Protein ZINA Screen Crossmatch 03/06/20 03/06/20 03/06/20 04:40 04:41 05:44 WBC Hgb RBC Hct MCV MCH RDW Plt Count Lymph % (Auto) Lymph # [place] % (Auto) [place] # Eos % (Auto) Lymph # (Auto) [place] # (Auto) Eos # (Auto) Seg Neutrophils % Baso # (Auto) Seg Neutrophils # Seg Neuts % (Manual) Lymphocytes % (Manual) Monocytes % (Manual) Nucleated RBC % Seg Neutrophils # Man Lymphocytes # (Manual) Monocytes # (Manual) Eosinophils # (Manual) Basophils # (Manual) ABG pH POC ABG pCO2 POC ABG pO2 64.9 L ABG pO2 ABG HCO3 ABG O2 Saturation ABG Base Excess ABG Hemoglobin 9.9 L ABG Oxyhemoglobin 90.5 L ABG Sodium ABG Glucose Oxyhemoglobin Sodium Potassium Chloride 94.7 L Carbon Dioxide BUN 70 H Creatinine 7.1 H Glucose 113 H POC Glucose 134 H Calcium Phosphorus Magnesium Direct Bilirubin AST Alkaline Phosphatase Albumin Troponin T C-Reactive Protein Vfjgn-2-Fnleifhhe PEP Interpretation Triglycerides Lipase HDL Cholesterol PTH Intact Arterial Blood Glucose Arterial Blood Ionized Calcium Urine WBC (Auto) Urine Creatinine Ur Creatinine 24 Hour Urine Total Protein ZINA Screen Crossmatch 03/06/20 03/06/20 03/06/20 08:54 11:56 18:19 WBC 31.5 H Hgb 8.7 L RBC Hct 27.8 L MCV 75 L MCH 23 L RDW 21.2 H Plt Count 516 H Lymph % (Auto) Lymph # [place] % (Auto) [place] # Eos % (Auto) Lymph # (Auto) [place] # (Auto) Eos # (Auto) Seg Neutrophils % Baso # (Auto) Seg Neutrophils # Seg Neuts % (Manual) 93.0 H Lymphocytes % (Manual) 2.0 L Monocytes % (Manual) Nucleated RBC % Seg Neutrophils # Man 29.3 H Lymphocytes # (Manual) 0.6 L Monocytes # (Manual) Eosinophils # (Manual) 0.6 H Basophils # (Manual) ABG pH POC ABG pCO2 POC ABG pO2 ABG pO2 ABG HCO3 ABG O2 Saturation ABG Base Excess ABG Hemoglobin ABG Oxyhemoglobin ABG Sodium ABG Glucose Oxyhemoglobin Sodium Potassium Chloride Carbon Dioxide BUN Creatinine Glucose POC Glucose 131 H 117 H Calcium Phosphorus Magnesium Direct Bilirubin AST Alkaline Phosphatase Albumin Troponin T C-Reactive Protein Fdbuj-0-Kngimufpx PEP Interpretation Triglycerides Lipase HDL Cholesterol PTH Intact Arterial Blood Glucose Arterial Blood Ionized Calcium Urine WBC (Auto) Urine Creatinine Ur Creatinine 24 Hour Urine Total Protein ZINA Screen Crossmatch 03/07/20 03/07/20 03/07/20 04:42 05:03 05:03 WBC 26.9 H Hgb 8.3 L RBC 3.50 L Hct 26.6 L MCV 76 L MCH 24 L RDW 21.3 H Plt Count 470 H Lymph % (Auto) Lymph # [place] % (Auto) [place] # Eos % (Auto) Lymph # (Auto) [place] # (Auto) Eos # (Auto) Seg Neutrophils % Baso # (Auto) Seg Neutrophils # Seg Neuts % (Manual) 89.0 H Lymphocytes % (Manual) 4.0 L Monocytes % (Manual) Nucleated RBC % Seg Neutrophils # Man 23.9 H Lymphocytes # (Manual) 1.1 L Monocytes # (Manual) Eosinophils # (Manual) Basophils # (Manual) 0.3 H ABG pH POC ABG pCO2 POC ABG pO2 68.3 L ABG pO2 ABG HCO3 ABG O2 Saturation ABG Base Excess ABG Hemoglobin 9.3 L ABG Oxyhemoglobin ABG Sodium ABG Glucose 112 H Oxyhemoglobin Sodium Potassium Chloride 94.8 L Carbon Dioxide BUN 52 H Creatinine 6.3 H Glucose 106 H POC Glucose Calcium Phosphorus Magnesium Direct Bilirubin AST Alkaline Phosphatase 132 H Albumin 2.5 L Troponin T C-Reactive Protein Lufpz-6-Bxykengzp PEP Interpretation Triglycerides Lipase HDL Cholesterol PTH Intact Arterial Blood Glucose 112 H Arterial Blood Ionized Calcium Urine WBC (Auto) Urine Creatinine Ur Creatinine 24 Hour Urine Total Protein ZINA Screen Crossmatch 03/07/20 03/07/20 03/07/20 12:08 18:05 23:29 WBC Hgb RBC Hct MCV MCH RDW Plt Count Lymph % (Auto) Lymph # [place] % (Auto) [place] # Eos % (Auto) Lymph # (Auto) [place] # (Auto) Eos # (Auto) Seg Neutrophils % Baso # (Auto) Seg Neutrophils # Seg Neuts % (Manual) Lymphocytes % (Manual) Monocytes % (Manual) Nucleated RBC % Seg Neutrophils # Man Lymphocytes # (Manual) Monocytes # (Manual) Eosinophils # (Manual) Basophils # (Manual) ABG pH POC ABG pCO2 POC ABG pO2 ABG pO2 ABG HCO3 ABG O2 Saturation ABG Base Excess ABG Hemoglobin ABG Oxyhemoglobin ABG Sodium ABG Glucose Oxyhemoglobin Sodium Potassium Chloride Carbon Dioxide BUN Creatinine Glucose POC Glucose 114 H 111 H 118 H Calcium Phosphorus Magnesium Direct Bilirubin AST Alkaline Phosphatase Albumin Troponin T C-Reactive Protein Nzuqa-7-Wzqdttuoi PEP Interpretation Triglycerides Lipase HDL Cholesterol PTH Intact Arterial Blood Glucose Arterial Blood Ionized Calcium Urine WBC (Auto) Urine Creatinine Ur Creatinine 24 Hour Urine Total Protein ZINA Screen Crossmatch 03/08/20 03/08/20 03/08/20 04:50 17:45 23:53 WBC Hgb RBC Hct MCV MCH RDW Plt Count Lymph % (Auto) Lymph # [place] % (Auto) [place] # Eos % (Auto) Lymph # (Auto) [place] # (Auto) Eos # (Auto) Seg Neutrophils % Baso # (Auto) Seg Neutrophils # Seg Neuts % (Manual) Lymphocytes % (Manual) Monocytes % (Manual) Nucleated RBC % Seg Neutrophils # Man Lymphocytes # (Manual) Monocytes # (Manual) Eosinophils # (Manual) Basophils # (Manual) ABG pH POC ABG pCO2 POC ABG pO2 ABG pO2 ABG HCO3 ABG O2 Saturation ABG Base Excess ABG Hemoglobin ABG Oxyhemoglobin ABG Sodium ABG Glucose Oxyhemoglobin Sodium Potassium Chloride 95.5 L Carbon Dioxide BUN 52 H Creatinine 6.2 H Glucose 109 H POC Glucose 106 H 106 H Calcium Phosphorus Magnesium Direct Bilirubin AST Alkaline Phosphatase Albumin Troponin T C-Reactive Protein Bpugq-7-Bhdmbcuot PEP Interpretation Triglycerides Lipase HDL Cholesterol PTH Intact Arterial Blood Glucose Arterial Blood Ionized Calcium Urine WBC (Auto) Urine Creatinine Ur Creatinine 24 Hour Urine Total Protein ZINA Screen Crossmatch 03/09/20 03/09/20 03/09/20 04:00 07:53 18:22 WBC 21.9 H Hgb 7.5 L RBC 3.27 L Hct 24.3 L MCV 74 L MCH 23 L RDW 20.9 H Plt Count 488 H Lymph % (Auto) Lymph # [place] % (Auto) [place] # Eos % (Auto) Lymph # (Auto) [place] # (Auto) Eos # (Auto) Seg Neutrophils % Baso # (Auto) Seg Neutrophils # Seg Neuts % (Manual) Lymphocytes % (Manual) Monocytes % (Manual) Nucleated RBC % Seg Neutrophils # Man Lymphocytes # (Manual) Monocytes # (Manual) Eosinophils # (Manual) Basophils # (Manual) ABG pH POC ABG pCO2 POC ABG pO2 ABG pO2 ABG HCO3 ABG O2 Saturation ABG Base Excess ABG Hemoglobin ABG Oxyhemoglobin ABG Sodium ABG Glucose Oxyhemoglobin Sodium Potassium Chloride 92.8 L Carbon Dioxide BUN 74 H Creatinine 7.8 H Glucose POC Glucose 114 H Calcium Phosphorus Magnesium Direct Bilirubin AST Alkaline Phosphatase Albumin Troponin T C-Reactive Protein Yzqig-8-Hhrxcdejg PEP Interpretation Triglycerides Lipase HDL Cholesterol PTH Intact Arterial Blood Glucose Arterial Blood Ionized Calcium Urine WBC (Auto) Urine Creatinine Ur Creatinine 24 Hour Urine Total Protein ZINA Screen Crossmatch 03/10/20 03/10/20 03/10/20 04:37 04:37 09:53 WBC 16.0 H Hgb 7.1 L RBC 2.99 L Hct 22.4 L MCV 75 L MCH 24 L RDW 21.5 H Plt Count Lymph % (Auto) 9.2 L Lymph # [place] % (Auto) 9.9 H [place] # Eos % (Auto) Lymph # (Auto) [place] # (Auto) 1.6 H Eos # (Auto) Seg Neutrophils % 79.2 H Baso # (Auto) Seg Neutrophils # 12.6 H Seg Neuts % (Manual) Lymphocytes % (Manual) Monocytes % (Manual) Nucleated RBC % Seg Neutrophils # Man Lymphocytes # (Manual) Monocytes # (Manual) Eosinophils # (Manual) Basophils # (Manual) ABG pH POC ABG pCO2 POC ABG pO2 ABG pO2 ABG HCO3 ABG O2 Saturation ABG Base Excess ABG Hemoglobin 7.7 L ABG Oxyhemoglobin ABG Sodium 134.7 L ABG Glucose 103 H Oxyhemoglobin Sodium Potassium Chloride Carbon Dioxide BUN 45 H Creatinine 5.6 H Glucose 108 H POC Glucose Calcium Phosphorus Magnesium Direct Bilirubin AST Alkaline Phosphatase Albumin Troponin T C-Reactive Protein Qsaps-5-Ffksrztmv PEP Interpretation Triglycerides Lipase HDL Cholesterol PTH Intact Arterial Blood Glucose 103 H Arterial Blood Ionized Calcium Urine WBC (Auto) Urine Creatinine Ur Creatinine 24 Hour Urine Total Protein ZINA Screen Crossmatch 03/10/20 03/11/20 03/11/20 23:46 02:52 03:25 WBC Hgb RBC Hct MCV MCH RDW Plt Count Lymph % (Auto) Lymph # [place] % (Auto) [place] # Eos % (Auto) Lymph # (Auto) [place] # (Auto) Eos # (Auto) Seg Neutrophils % Baso # (Auto) Seg Neutrophils # Seg Neuts % (Manual) Lymphocytes % (Manual) Monocytes % (Manual) Nucleated RBC % Seg Neutrophils # Man Lymphocytes # (Manual) Monocytes # (Manual) Eosinophils # (Manual) Basophils # (Manual) ABG pH POC ABG pCO2 POC ABG pO2 77.5 L ABG pO2 ABG HCO3 ABG O2 Saturation ABG Base Excess ABG Hemoglobin 8.0 L ABG Oxyhemoglobin ABG Sodium 135.8 L ABG Glucose Oxyhemoglobin Sodium Potassium Chloride Carbon Dioxide BUN Creatinine Glucose POC Glucose 116 H Calcium Phosphorus Magnesium Direct Bilirubin AST Alkaline Phosphatase Albumin Troponin T 0.093 H C-Reactive Protein Zvgzr-4-Nkboexget PEP Interpretation Triglycerides Lipase HDL Cholesterol PTH Intact Arterial Blood Glucose Arterial Blood Ionized Calcium Urine WBC (Auto) Urine Creatinine Ur Creatinine 24 Hour Urine Total Protein ZINA Screen Crossmatch 03/11/20 03/11/20 03/11/20 04:32 04:32 06:16 WBC 22.4 H Hgb 7.8 L RBC 3.32 L Hct 25.0 L MCV 75 L MCH 24 L RDW 21.4 H Plt Count 553 H Lymph % (Auto) Lymph # [place] % (Auto) [place] # Eos % (Auto) Lymph # (Auto) [place] # (Auto) Eos # (Auto) Seg Neutrophils % Baso # (Auto) Seg Neutrophils # Seg Neuts % (Manual) 81.0 H Lymphocytes % (Manual) 8.0 L Monocytes % (Manual) 8.0 H Nucleated RBC % Seg Neutrophils # Man 18.1 H Lymphocytes # (Manual) Monocytes # (Manual) 1.8 H Eosinophils # (Manual) Basophils # (Manual) 0.2 H ABG pH POC ABG pCO2 POC ABG pO2 ABG pO2 ABG HCO3 ABG O2 Saturation ABG Base Excess ABG Hemoglobin ABG Oxyhemoglobin ABG Sodium ABG Glucose Oxyhemoglobin Sodium Potassium Chloride 96.6 L Carbon Dioxide BUN 64 H Creatinine 6.5 H Glucose 101 H POC Glucose 142 H Calcium Phosphorus Magnesium Direct Bilirubin AST 41 H Alkaline Phosphatase Albumin 2.7 L Troponin T C-Reactive Protein Zgeic-4-Qrtjwkjyj PEP Interpretation Triglycerides Lipase HDL Cholesterol PTH Intact Arterial Blood Glucose Arterial Blood Ionized Calcium Urine WBC (Auto) Urine Creatinine Ur Creatinine 24 Hour Urine Total Protein ZINA Screen Crossmatch 03/11/20 03/11/20 03/11/20 06:50 07:31 14:31 WBC Hgb 7.7 L RBC Hct 23.7 L MCV MCH RDW Plt Count 553 H Lymph % (Auto) Lymph # [place] % (Auto) [place] # Eos % (Auto) Lymph # (Auto) [place] # (Auto) Eos # (Auto) Seg Neutrophils % Baso # (Auto) Seg Neutrophils # Seg Neuts % (Manual) Lymphocytes % (Manual) Monocytes % (Manual) Nucleated RBC % Seg Neutrophils # Man Lymphocytes # (Manual) Monocytes # (Manual) Eosinophils # (Manual) Basophils # (Manual) ABG pH POC ABG pCO2 POC ABG pO2 ABG pO2 67.8 L ABG HCO3 ABG O2 Saturation ABG Base Excess ABG Hemoglobin ABG Oxyhemoglobin ABG Sodium ABG Glucose Oxyhemoglobin Sodium Potassium Chloride Carbon Dioxide BUN Creatinine Glucose POC Glucose Calcium Phosphorus Magnesium Direct Bilirubin AST Alkaline Phosphatase Albumin Troponin T 0.085 H C-Reactive Protein Nvzbt-6-Osfyitltd PEP Interpretation Triglycerides 247 H Lipase HDL Cholesterol 28 L PTH Intact Arterial Blood Glucose Arterial Blood Ionized Calcium Urine WBC (Auto) Urine Creatinine Ur Creatinine 24 Hour Urine Total Protein ZINA Screen Crossmatch 03/12/20 03/12/20 03/13/20 03:46 17:33 04:00 WBC Hgb 6.6 L RBC Hct 19.5 L* MCV MCH RDW Plt Count 603 H Lymph % (Auto) Lymph # [place] % (Auto) [place] # Eos % (Auto) Lymph # (Auto) [place] # (Auto) Eos # (Auto) Seg Neutrophils % Baso # (Auto) Seg Neutrophils # Seg Neuts % (Manual) Lymphocytes % (Manual) Monocytes % (Manual) Nucleated RBC % Seg Neutrophils # Man Lymphocytes # (Manual) Monocytes # (Manual) Eosinophils # (Manual) Basophils # (Manual) ABG pH POC ABG pCO2 POC ABG pO2 78.3 L ABG pO2 ABG HCO3 ABG O2 Saturation ABG Base Excess ABG Hemoglobin 7.9 L ABG Oxyhemoglobin ABG Sodium 134.8 L ABG Glucose Oxyhemoglobin Sodium Potassium Chloride Carbon Dioxide BUN Creatinine Glucose POC Glucose 107 H Calcium Phosphorus Magnesium Direct Bilirubin AST Alkaline Phosphatase Albumin Troponin T C-Reactive Protein Ynpkg-6-Fvwqwkryh PEP Interpretation Triglycerides Lipase HDL Cholesterol PTH Intact Arterial Blood Glucose Arterial Blood Ionized Calcium Urine WBC (Auto) Urine Creatinine Ur Creatinine 24 Hour Urine Total Protein ZINA Screen Crossmatch 03/13/20 03/13/20 03/13/20 04:00 08:20 08:45 WBC Hgb 7.0 L RBC Hct 21.8 L MCV MCH RDW Plt Count Lymph % (Auto) Lymph # [place] % (Auto) [place] # Eos % (Auto) Lymph # (Auto) [place] # (Auto) Eos # (Auto) Seg Neutrophils % Baso # (Auto) Seg Neutrophils # Seg Neuts % (Manual) Lymphocytes % (Manual) Monocytes % (Manual) Nucleated RBC % Seg Neutrophils # Man Lymphocytes # (Manual) Monocytes # (Manual) Eosinophils # (Manual) Basophils # (Manual) ABG pH POC ABG pCO2 POC ABG pO2 ABG pO2 ABG HCO3 27.4 H ABG O2 Saturation ABG Base Excess ABG Hemoglobin 8.7 L ABG Oxyhemoglobin ABG Sodium ABG Glucose Oxyhemoglobin 94.6 L Sodium Potassium Chloride Carbon Dioxide BUN Creatinine Glucose POC Glucose Calcium Phosphorus Magnesium Direct Bilirubin AST Alkaline Phosphatase Albumin Troponin T C-Reactive Protein Vuvfx-3-Rneycdnnc PEP Interpretation Triglycerides Lipase HDL Cholesterol PTH Intact Arterial Blood Glucose Arterial Blood Ionized Calcium Urine WBC (Auto) Urine Creatinine Ur Creatinine 24 Hour Urine Total Protein ZINA Screen Crossmatch See Detail 03/13/20 03/13/20 03/14/20 14:23 15:38 06:15 WBC Hgb RBC Hct MCV MCH RDW Plt Count Lymph % (Auto) Lymph # [place] % (Auto) [place] # Eos % (Auto) Lymph # (Auto) [place] # (Auto) Eos # (Auto) Seg Neutrophils % Baso # (Auto) Seg Neutrophils # Seg Neuts % (Manual) Lymphocytes % (Manual) Monocytes % (Manual) Nucleated RBC % Seg Neutrophils # Man Lymphocytes # (Manual) Monocytes # (Manual) Eosinophils # (Manual) Basophils # (Manual) ABG pH 7.462 H POC ABG pCO2 POC ABG pO2 75.1 L ABG pO2 ABG HCO3 ABG O2 Saturation ABG Base Excess ABG Hemoglobin 8.9 L ABG Oxyhemoglobin ABG Sodium 135.9 L ABG Glucose Oxyhemoglobin Sodium Potassium Chloride 94.2 L 93.1 L Carbon Dioxide BUN 32 H 45 H Creatinine 3.6 H 4.9 H Glucose POC Glucose Calcium Phosphorus Magnesium Direct Bilirubin AST Alkaline Phosphatase Albumin Troponin T C-Reactive Protein Hjklw-3-Bptqjvvhp PEP Interpretation Triglycerides Lipase HDL Cholesterol PTH Intact Arterial Blood Glucose Arterial Blood Ionized Calcium 4.5 L Urine WBC (Auto) Urine Creatinine Ur Creatinine 24 Hour Urine Total Protein ZINA Screen Crossmatch 03/14/20 03/14/20 03/15/20 06:15 Unknown 04:31 WBC 13.7 H Hgb 7.8 L 7.7 L 8.1 L RBC 3.13 L Hct 22.4 L 23.8 L 24.7 L MCV 76 L MCH 25 L RDW 21.6 H Plt Count 662 H 729 H Lymph % (Auto) Lymph # [place] % (Auto) [place] # Eos % (Auto) Lymph # (Auto) [place] # (Auto) 1.0 H Eos # (Auto) 0.6 H Seg Neutrophils % 71.5 H Baso # (Auto) Seg Neutrophils # 9.8 H Seg Neuts % (Manual) Lymphocytes % (Manual) Monocytes % (Manual) Nucleated RBC % Seg Neutrophils # Man Lymphocytes # (Manual) Monocytes # (Manual) Eosinophils # (Manual) Basophils # (Manual) ABG pH POC ABG pCO2 POC ABG pO2 ABG pO2 ABG HCO3 ABG O2 Saturation ABG Base Excess ABG Hemoglobin ABG Oxyhemoglobin ABG Sodium ABG Glucose Oxyhemoglobin Sodium Potassium Chloride Carbon Dioxide BUN Creatinine Glucose POC Glucose Calcium Phosphorus Magnesium Direct Bilirubin AST Alkaline Phosphatase Albumin Troponin T C-Reactive Protein Prtid-0-Ytchjlzeq PEP Interpretation Triglycerides Lipase HDL Cholesterol PTH Intact Arterial Blood Glucose Arterial Blood Ionized Calcium Urine WBC (Auto) Urine Creatinine Ur Creatinine 24 Hour Urine Total Protein ZINA Screen Crossmatch 03/15/20 03/15/20 03/16/20 04:31 13:20 00:17 WBC Hgb RBC Hct MCV MCH RDW Plt Count Lymph % (Auto) Lymph # [place] % (Auto) [place] # Eos % (Auto) Lymph # (Auto) [place] # (Auto) Eos # (Auto) Seg Neutrophils % Baso # (Auto) Seg Neutrophils # Seg Neuts % (Manual) Lymphocytes % (Manual) Monocytes % (Manual) Nucleated RBC % Seg Neutrophils # Man Lymphocytes # (Manual) Monocytes # (Manual) Eosinophils # (Manual) Basophils # (Manual) ABG pH POC ABG pCO2 POC ABG pO2 ABG pO2 ABG HCO3 28.9 H ABG O2 Saturation ABG Base Excess 3.9 H ABG Hemoglobin 8.6 L ABG Oxyhemoglobin ABG Sodium ABG Glucose Oxyhemoglobin 94.9 L Sodium Potassium Chloride 95.9 L Carbon Dioxide BUN 60 H Creatinine 5.6 H Glucose POC Glucose 111 H Calcium Phosphorus Magnesium Direct Bilirubin AST Alkaline Phosphatase Albumin Troponin T C-Reactive Protein Pqlul-4-Doicntqrt PEP Interpretation Triglycerides Lipase HDL Cholesterol PTH Intact Arterial Blood Glucose Arterial Blood Ionized Calcium Urine WBC (Auto) Urine Creatinine Ur Creatinine 24 Hour Urine Total Protein ZINA Screen Crossmatch 03/16/20 03/16/20 03/17/20 04:52 04:52 04:55 WBC 13.9 H Hgb 8.3 L 9.1 L RBC 3.35 L Hct 25.8 L 28.2 L MCV 77 L MCH 25 L RDW 22.1 H Plt Count 799 H 818 H Lymph % (Auto) 11.1 L Lymph # [place] % (Auto) [place] # Eos % (Auto) 4.4 H Lymph # (Auto) [place] # (Auto) 0.9 H Eos # (Auto) 0.6 H Seg Neutrophils % 77.4 H Baso # (Auto) Seg Neutrophils # 10.8 H Seg Neuts % (Manual) Lymphocytes % (Manual) Monocytes % (Manual) Nucleated RBC % Seg Neutrophils # Man Lymphocytes # (Manual) Monocytes # (Manual) Eosinophils # (Manual) Basophils # (Manual) ABG pH POC ABG pCO2 POC ABG pO2 ABG pO2 ABG HCO3 ABG O2 Saturation ABG Base Excess ABG Hemoglobin ABG Oxyhemoglobin ABG Sodium ABG Glucose Oxyhemoglobin Sodium Potassium Chloride 93.8 L Carbon Dioxide BUN 72 H Creatinine 5.8 H Glucose POC Glucose Calcium Phosphorus Magnesium Direct Bilirubin AST Alkaline Phosphatase Albumin 2.7 L Troponin T C-Reactive Protein Ocmos-3-Dohucjctn PEP Interpretation Triglycerides Lipase HDL Cholesterol PTH Intact Arterial Blood Glucose Arterial Blood Ionized Calcium Urine WBC (Auto) Urine Creatinine Ur Creatinine 24 Hour Urine Total Protein ZINA Screen Crossmatch 03/17/20 03/18/20 03/18/20 04:55 10:28 14:00 WBC Hgb RBC Hct MCV MCH RDW Plt Count Lymph % (Auto) Lymph # [place] % (Auto) [place] # Eos % (Auto) Lymph # (Auto) [place] # (Auto) Eos # (Auto) Seg Neutrophils % Baso # (Auto) Seg Neutrophils # Seg Neuts % (Manual) Lymphocytes % (Manual) Monocytes % (Manual) Nucleated RBC % Seg Neutrophils # Man Lymphocytes # (Manual) Monocytes # (Manual) Eosinophils # (Manual) Basophils # (Manual) ABG pH POC ABG pCO2 POC ABG pO2 ABG pO2 ABG HCO3 ABG O2 Saturation ABG Base Excess ABG Hemoglobin ABG Oxyhemoglobin ABG Sodium ABG Glucose Oxyhemoglobin Sodium Potassium Chloride 93.5 L 94.4 L Carbon Dioxide BUN 40 H 37 H Creatinine 3.8 H 3.0 H Glucose 112 H POC Glucose Calcium Phosphorus Magnesium Direct Bilirubin AST Alkaline Phosphatase Albumin Troponin T C-Reactive Protein Vuvin-6-Mduscgliq PEP Interpretation Triglycerides Lipase HDL Cholesterol PTH Intact Arterial Blood Glucose Arterial Blood Ionized Calcium Urine WBC (Auto) Urine Creatinine 278.4 H Ur Creatinine 24 Hour 0.3 L Urine Total Protein ZINA Screen Crossmatch 03/19/20 03/19/20 03/20/20 05:55 05:55 04:31 WBC 15.1 H Hgb 9.4 L RBC Hct 29.3 L MCV 78 L MCH 25 L RDW 21.9 H Plt Count 775 H Lymph % (Auto) Lymph # [place] % (Auto) [place] # Eos % (Auto) 5.4 H Lymph # (Auto) [place] # (Auto) 0.9 H Eos # (Auto) 0.8 H Seg Neutrophils % 73.7 H Baso # (Auto) 0.2 H Seg Neutrophils # 11.1 H Seg Neuts % (Manual) Lymphocytes % (Manual) Monocytes % (Manual) Nucleated RBC % Seg Neutrophils # Man Lymphocytes # (Manual) Monocytes # (Manual) Eosinophils # (Manual) Basophils # (Manual) ABG pH POC ABG pCO2 POC ABG pO2 ABG pO2 ABG HCO3 ABG O2 Saturation ABG Base Excess ABG Hemoglobin ABG Oxyhemoglobin ABG Sodium ABG Glucose Oxyhemoglobin Sodium 136 L Potassium Chloride 92.0 L 94.8 L Carbon Dioxide BUN 28 H 40 H Creatinine 3.5 H 4.3 H Glucose POC Glucose Calcium Phosphorus Magnesium Direct Bilirubin AST Alkaline Phosphatase Albumin Troponin T C-Reactive Protein [id number] PEP Interpretation Triglycerides Lipase HDL Cholesterol PTH Intact Arterial Blood Glucose Arterial Blood Ionized Calcium Urine WBC (Auto) Urine Creatinine Ur Creatinine 24 Hour Urine Total Protein ZINA Screen Crossmatch 03/21/20 03/22/20 03/23/20 05:00 04:21 04:23 WBC Hgb RBC Hct MCV MCH RDW Plt Count Lymph % (Auto) Lymph # [place] % (Auto) [place] # Eos % (Auto) Lymph # (Auto) [place] # (Auto) Eos # (Auto) Seg Neutrophils % Baso # (Auto) Seg Neutrophils # Seg Neuts % (Manual) Lymphocytes % (Manual) Monocytes % (Manual) Nucleated RBC % Seg Neutrophils # Man Lymphocytes # (Manual) Monocytes # (Manual) Eosinophils # (Manual) Basophils # (Manual) ABG pH POC ABG pCO2 POC ABG pO2 ABG pO2 ABG HCO3 ABG O2 Saturation ABG Base Excess ABG Hemoglobin ABG Oxyhemoglobin ABG Sodium ABG Glucose Oxyhemoglobin Sodium Potassium Chloride 94.2 L 94.7 L 97.9 L Carbon Dioxide BUN 23 H 33 H 39 H Creatinine 3.6 H 4.3 H 4.3 H Glucose POC Glucose Calcium Phosphorus Magnesium Direct Bilirubin AST Alkaline Phosphatase Albumin Troponin T C-Reactive Protein Sdurt-[id number] PEP Interpretation Triglycerides Lipase HDL Cholesterol PTH Intact Arterial Blood Glucose Arterial Blood Ionized Calcium Urine WBC (Auto) Urine Creatinine Ur Creatinine 24 Hour Urine Total Protein ZNIA Screen Crossmatch Allied health notes reviewed: nursing
--- NOTE | 2020-03-23 17:40 | Event Note ---
Date: 03/23/20 Patient was taken to hemodialysis earlier today and due to Silk Spreader case volume, patient will be made n.p.o. after midnight with plan for PermCath placement tomorrow.
[2020-03-23] MEDS: QUEtiapine 100 MG TAB PO SCH (21:08)
[2020-03-24 05:33] LABS: Calcium 9.9 mg/dL (8.4-10.2)
[2020-03-24] MEDS: HEPARIN 5,000 UNIT/1 ML VIAL SUB-Q SCH ×2 (06:10→17:02)
[2020-03-24] MEDS: hydrALAZINE 100 MG TAB PO SCH ×2 (06:10→16:53)
[2020-03-24] MEDS ORDERED: HEPARIN/NS 5000 UNIT/500ML 500 ML IR ONE (07:57)
[2020-03-24] MEDS ORDERED: ceFAZolin/Water 2 GM/20 ML 2 GM/20 ML SYRINGE IV ONE (08:11)
[2020-03-24] MEDS ORDERED: SODIUM CHLORIDE 0.9% 250ML 250 ML ONE (08:11)
[2020-03-24] MEDS: MIDAZOLAM 2 MG/2 ML INJ ONE ×2 (09:22→09:26)
[2020-03-24] MEDS: fentaNYL 100 MCG/2 ML INJ ONE ×2 (09:23→09:26)
[2020-03-24] MEDS: LIDOCAINE 1%/EPINEPHRINE 1:100,000 VIAL (20 ML) INFILTRATI ONE ×3 (09:23→09:34)
[2020-03-24] MEDS: HEPARIN 10,000 UNITS/10 ML VIAL ONE ×4 (09:36→09:41)
--- NOTE | 2020-03-24 10:11 | Operative Report ---
Operative Report Operative Report: EXAM: 1. Ultrasound-guided puncture of the right internal jugular vein 2. Fluoroscopic-guided placement of a right internal jugular tunneled cuffed hemodialysis catheter. 3. Fluoroscopic guided removal of a right internal jugular nontunneled noncuffed hemodialysis catheter DATE: 03/24/2020 INDICATION: End-stage renal disease requiring hemodialysis access. MEDICATIONS: Please see nursing report for full details. DEVICES: 23 cm tip to cuff 15 Fr dual lumen hemodialysis catheter WASHER ENGINEER HELPER: LIEN CABALLERO MD CONTRAST: None PROCEDURE: The risks, benefits, and alternatives were discussed and informed consent was obtained. The patient was transported to the angiography suite in satisfactory/ stable condition and was transported onto the angiography table. The patient's right internal jugular vein was assessed with ultrasound and determined to be patent prior to procedure. The previous right Vas-Cath was taped off and the dressing was removed and it was removed as much as possible from the sterile field. The patient was prepped and draped in a sterile fashion. The puncture site was anesthetized. Under sonographic guidance, the right internal jugular vein was punctured with a 21-gauge micropuncture needle and a 0.018 inch wire was advanced into the inferior vena cava. The micropuncture needle was exchanged for a transitional dilator and the wire was retracted into the right atrium to amilcar intravascular distance. The wire and inner dilator were removed. 0.035 inch wire was advanced through the transitional dilator into the inferior vena cava. A suitable exit site was identified on the patient's chest inferior and lateral to the venotomy. The site was anesthetized with local anesthetic and the track was anesthetized. Dermatotomy was made. The PermCath was attached to the tunneling device and tunneled between the dermatotomy to the venotomy. Over the 0.035 inch wire, serial dilatation was performed with ultimate placement of a peel-away sheath. The catheter was advanced through the peel- away sheath after the wire was removed and positioned centrally under fluoroscopic guidance. The peel-away sheath was removed. 4-0 Vicryl suture was used to close the venotomy and Dermabond was then applied. 2-0 Ethilon suture was used to secure the catheter at the dermatotomy. The catheter was charged with heparin 1000 units/mL of space. Sterile dressing and Biopatch applied. At this time, the old Vas-Cath sutures were cut and the catheter was removed under fluoroscopic guidance. Pressure was held until hemostasis was achieved. Pressure dressing applied. The patient was transferred from the angiography suite back to the floor in stable condition. FINDINGS: 1. Excellent flow was obtained through the dialysis catheter with 20 mL syringes. 2. The catheter tip is in the right atrium. IMPRESSION: 1. Successful ultrasound and fluoroscopically guided placement of a right internal jugular tunneled cuffed hemodialysis catheter.
--- NOTE | 2020-03-24 10:27 | Progress Note ---
Assessment and Plan Patient awake. On room air. O2 saturation 98%. No complaint of chest pain, shortness of breath or cough. Patient admitted for pancreatitis. Patient initially complained dyspnea. No dyspnea now. Patient afebrile. Has leukocytosis. Patient has perma cath placement to day. - Patient Problems (1) Dyspnea Current Visit: Yes Status: Acute Plan to address problem: Improved. No complaint of dyspnea to day. O2 saturation 98% on room air. (2) Acute pancreatitis Current Visit: Yes Status: Acute Plan to address problem: Management as per primary care. (3) Hypertensive urgency Current Visit: Yes Status: Acute Plan to address problem: Management as per primary care. (4) Renal failure Current Visit: Yes Status: Acute Plan to address problem: Management as per nephrology. Patient is on dialysis. Patient has Perma cath placement today. Subjective Date of service: 03/24/20 Principal diagnosis: HTNsive urgency; Morbid obesity; Ac. pancreatitis; Abdominal pain Interval history: Patient awake. On room air. O2 saturation 98%. No complaint of chest pain, shortness of breath or cough. Patient admitted for pancreatitis. Patient initially complained dyspnea. No dyspnea now. Patient afebrile. Has leukocytosis. Patient has perma cath placement to day. Objective Vital Signs - 12hr 03/23/20 03/23/20 03/24/20 22:51 23:00 04:31 Temperature 97.9 F 98.6 F Pulse Rate 90 98 H 102 H Respiratory 20 20 20 Rate Blood Pressure 114/70 141/86 113/73 O2 Sat by Pulse 96 96 96 Oximetry Constitutional: no acute distress, alert Eyes: non-icteric ENT: oropharynx moist, other (Right IJ trialysis catheter) Neck: supple, no lymphadenopathy, no JVD, other (RIJ HD catheter) Effort: normal Ascultation: Bilateral: diminished breath sounds Percussion: Bilateral: not dull Cardiovascular: regular rate and rhythm, other (S1,S2) Gastrointestinal: normoactive bowel sounds, hypoactive bowel sounds, soft, non- tender, non-distended Integumentary: normal Extremities: no cyanosis, no edema, pink and warm, pulses normal Neurologic: normal mental status, non-focal exam, pupils equal and round, CN II- XII normal, motor strength normal and Psychiatric: tearful CBC and BMP: 03/19/20 05:55 03/24/20 04:18 ABG, PT/INR, D-dimer: ABG ABG pH 7.420 pH Units (7.350-7.450) 03/15/20 13:20 POC ABG pCO2 40.5 mmHg (32.0-48.0) 03/13/20 14:23 ABG pCO2 45.5 mm Hg 03/15/20 13:20 POC ABG pO2 75.1 mmHg (83-108) L 03/13/20 14:23 ABG pO2 85.8 mm Hg (80.0-90.0) 03/15/20 13:20 POC ABG HCO3 28.3 03/13/20 14:23 ABG O2 Saturation 97.1 % (95.0-99.0) 03/15/20 13:20 PT/INR, D-dimer PT 14.1 Sec. (12.2-14.9) 03/11/20 07:31 INR 1.07 (0.87-1.13) 03/11/20 07:31 Abnormal lab findings: Abnormal Labs 02/24/20 02/24/20 02/24/20 02:53 02:53 Unknown WBC 12.7 H Hgb 10.0 L RBC Hct MCV 70 L MCH 22 L RDW 17.9 H Plt Count 458 H Lymph % (Auto) 8.9 L Lymph # 1.1 L [place] % (Auto) [place] # Eos % (Auto) Lymph # (Auto) [place] # (Auto) Eos # (Auto) Seg Neutrophils % 84.2 H Baso # (Auto) Seg Neutrophils # 10.7 H Seg Neuts % (Manual) Lymphocytes % (Manual) Monocytes % (Manual) Nucleated RBC % Seg Neutrophils # Man Lymphocytes # (Manual) Monocytes # (Manual) Eosinophils # (Manual) Basophils # (Manual) ABG pH POC ABG pCO2 POC ABG pO2 ABG pO2 ABG HCO3 ABG O2 Saturation ABG Base Excess ABG Hemoglobin ABG Oxyhemoglobin ABG Sodium ABG Glucose Oxyhemoglobin Sodium Potassium Chloride Carbon Dioxide BUN 27 H Creatinine 1.7 H Glucose 118 H POC Glucose Calcium Phosphorus Magnesium Direct Bilirubin AST Alkaline Phosphatase Albumin Troponin T C-Reactive Protein Yucli-4-Givxhrcgd PEP Interpretation Triglycerides Lipase 232 H HDL Cholesterol PTH Intact Arterial Blood Glucose Arterial Blood Ionized Calcium Urine WBC (Auto) 11.0 H Urine Creatinine Ur Creatinine 24 Hour Urine Total Protein ZINA Screen Crossmatch 02/25/20 02/25/20 02/25/20 00:03 03:49 03:49 WBC 29.1 H Hgb 9.4 L RBC Hct 30.2 L MCV 71 L MCH 22 L RDW 18.3 H Plt Count 525 H Lymph % (Auto) 3.4 L Lymph # 1.0 L [place] % (Auto) [place] # 1.0 H Eos % (Auto) Lymph # (Auto) [place] # (Auto) Eos # (Auto) Seg Neutrophils % Baso # (Auto) Seg Neutrophils # 26.4 H Seg Neuts % (Manual) Lymphocytes % (Manual) Monocytes % (Manual) Nucleated RBC % Seg Neutrophils # Man Lymphocytes # (Manual) Monocytes # (Manual) Eosinophils # (Manual) Basophils # (Manual) ABG pH POC ABG pCO2 POC ABG pO2 ABG pO2 ABG HCO3 ABG O2 Saturation ABG Base Excess ABG Hemoglobin ABG Oxyhemoglobin ABG Sodium ABG Glucose Oxyhemoglobin Sodium Potassium Chloride Carbon Dioxide BUN Creatinine Glucose POC Glucose 126 H Calcium Phosphorus Magnesium Direct Bilirubin AST Alkaline Phosphatase Albumin Troponin T C-Reactive Protein Nuwfg-7-Qohkfabsb PEP Interpretation Triglycerides Lipase 1486 H HDL Cholesterol PTH Intact Arterial Blood Glucose Arterial Blood Ionized Calcium Urine WBC (Auto) Urine Creatinine Ur Creatinine 24 Hour Urine Total Protein ZINA Screen Crossmatch 02/25/20 02/25/20 02/25/20 03:49 05:55 22:55 WBC Hgb RBC Hct MCV MCH RDW Plt Count Lymph % (Auto) Lymph # [place] % (Auto) [place] # Eos % (Auto) Lymph # (Auto) [place] # (Auto) Eos # (Auto) Seg Neutrophils % Baso # (Auto) Seg Neutrophils # Seg Neuts % (Manual) Lymphocytes % (Manual) Monocytes % (Manual) Nucleated RBC % Seg Neutrophils # Man Lymphocytes # (Manual) Monocytes # (Manual) Eosinophils # (Manual) Basophils # (Manual) ABG pH POC ABG pCO2 POC ABG pO2 ABG pO2 ABG HCO3 ABG O2 Saturation ABG Base Excess ABG Hemoglobin ABG Oxyhemoglobin ABG Sodium ABG Glucose Oxyhemoglobin Sodium 136 L Potassium Chloride 97.9 L Carbon Dioxide 21 L BUN 39 H Creatinine 3.0 H D Glucose 118 H POC Glucose 124 H Calcium Phosphorus Magnesium Direct Bilirubin AST Alkaline Phosphatase Albumin 3.6 L Troponin T C-Reactive Protein Vsgpe-0-Rxpiphmpo PEP Interpretation Triglycerides Lipase HDL Cholesterol PTH Intact Arterial Blood Glucose Arterial Blood Ionized Calcium Urine WBC (Auto) Urine Creatinine 161.0 H Ur Creatinine 24 Hour Urine Total Protein 150 H ZINA Screen Crossmatch 02/26/20 02/26/20 02/26/20 04:39 04:39 04:39 WBC 30.3 H Hgb 9.1 L RBC Hct 29.8 L MCV 71 L MCH 22 L RDW 18.2 H Plt Count 530 H Lymph % (Auto) Lymph # [place] % (Auto) [place] # Eos % (Auto) Lymph # (Auto) [place] # (Auto) Eos # (Auto) Seg Neutrophils % Baso # (Auto) Seg Neutrophils # Seg Neuts % (Manual) Lymphocytes % (Manual) Monocytes % (Manual) Nucleated RBC % Seg Neutrophils # Man Lymphocytes # (Manual) Monocytes # (Manual) Eosinophils # (Manual) Basophils # (Manual) ABG pH POC ABG pCO2 POC ABG pO2 ABG pO2 ABG HCO3 ABG O2 Saturation ABG Base Excess ABG Hemoglobin ABG Oxyhemoglobin ABG Sodium ABG Glucose Oxyhemoglobin Sodium Potassium Chloride Carbon Dioxide 19 L BUN 44 H Creatinine 3.1 H Glucose 106 H POC Glucose Calcium 8.1 L Phosphorus Magnesium Direct Bilirubin AST Alkaline Phosphatase Albumin Troponin T C-Reactive Protein Gkuee-8-Lsieeicsh PEP Interpretation Triglycerides Lipase 540 H HDL Cholesterol PTH Intact Arterial Blood Glucose Arterial Blood Ionized Calcium Urine WBC (Auto) Urine Creatinine Ur Creatinine 24 Hour Urine Total Protein ZINA Screen Positive H Crossmatch 02/26/20 02/26/20 02/26/20 04:39 08:15 12:14 WBC Hgb RBC Hct MCV MCH RDW Plt Count Lymph % (Auto) Lymph # [place] % (Auto) [place] # Eos % (Auto) Lymph # (Auto) [place] # (Auto) Eos # (Auto) Seg Neutrophils % Baso # (Auto) Seg Neutrophils # Seg Neuts % (Manual) Lymphocytes % (Manual) Monocytes % (Manual) Nucleated RBC % Seg Neutrophils # Man Lymphocytes # (Manual) Monocytes # (Manual) Eosinophils # (Manual) Basophils # (Manual) ABG pH POC ABG pCO2 POC ABG pO2 ABG pO2 ABG HCO3 ABG O2 Saturation ABG Base Excess ABG Hemoglobin ABG Oxyhemoglobin ABG Sodium ABG Glucose Oxyhemoglobin Sodium Potassium Chloride Carbon Dioxide BUN Creatinine Glucose POC Glucose 112 H Calcium Phosphorus Magnesium Direct Bilirubin AST Alkaline Phosphatase Albumin 2.8 L Troponin T C-Reactive Protein Vugza-7-Stwbsymsk 0.7 H PEP Interpretation see below H Triglycerides Lipase HDL Cholesterol PTH Intact 911.3 H Arterial Blood Glucose Arterial Blood Ionized Calcium Urine WBC (Auto) Urine Creatinine Ur Creatinine 24 Hour Urine Total Protein ZINA Screen Crossmatch 02/27/20 02/27/20 02/27/20 04:18 04:18 04:18 WBC 26.8 H Hgb 7.9 L RBC Hct 26.3 L MCV 70 L MCH 21 L RDW 18.0 H Plt Count 513 H Lymph % (Auto) Lymph # [place] % (Auto) [place] # Eos % (Auto) Lymph # (Auto) [place] # (Auto) Eos # (Auto) Seg Neutrophils % Baso # (Auto) Seg Neutrophils # Seg Neuts % (Manual) Lymphocytes % (Manual) Monocytes % (Manual) Nucleated RBC % Seg Neutrophils # Man Lymphocytes # (Manual) Monocytes # (Manual) Eosinophils # (Manual) Basophils # (Manual) ABG pH POC ABG pCO2 POC ABG pO2 ABG pO2 ABG HCO3 ABG O2 Saturation ABG Base Excess ABG Hemoglobin ABG Oxyhemoglobin ABG Sodium ABG Glucose Oxyhemoglobin Sodium 135 L 135 L Potassium Chloride Carbon Dioxide 15 L 16 L BUN 50 H 51 H Creatinine 3.4 H 3.4 H Glucose POC Glucose Calcium 7.4 L 7.5 L Phosphorus Magnesium Direct Bilirubin AST Alkaline Phosphatase Albumin 3.0 L Troponin T C-Reactive Protein 37.30 H Thrgg-9-Rfkdlxofl PEP Interpretation Triglycerides Lipase 177 H HDL Cholesterol PTH Intact Arterial Blood Glucose Arterial Blood Ionized Calcium Urine WBC (Auto) Urine Creatinine Ur Creatinine 24 Hour Urine Total Protein ZINA Screen Crossmatch 02/27/20 02/28/20 02/28/20 16:57 05:07 05:07 WBC Hgb RBC Hct MCV MCH RDW Plt Count Lymph % (Auto) Lymph # [place] % (Auto) [place] # Eos % (Auto) Lymph # (Auto) [place] # (Auto) Eos # (Auto) Seg Neutrophils % Baso # (Auto) Seg Neutrophils # Seg Neuts % (Manual) Lymphocytes % (Manual) Monocytes % (Manual) Nucleated RBC % Seg Neutrophils # Man Lymphocytes # (Manual) Monocytes # (Manual) Eosinophils # (Manual) Basophils # (Manual) ABG pH 7.336 L POC ABG pCO2 POC ABG pO2 ABG pO2 57.0 L ABG HCO3 16.4 L ABG O2 Saturation 88.2 L ABG Base Excess -8.4 L ABG Hemoglobin 10.4 L ABG Oxyhemoglobin ABG Sodium ABG Glucose Oxyhemoglobin 85.7 L Sodium Potassium Chloride Carbon Dioxide 14 L BUN 60 H Creatinine 4.2 H Glucose POC Glucose Calcium 8.2 L Phosphorus Magnesium Direct Bilirubin AST Alkaline Phosphatase Albumin Troponin T C-Reactive Protein Ctosb-7-Qkmokvfdk PEP Interpretation Triglycerides Lipase 155 H HDL Cholesterol PTH Intact Arterial Blood Glucose Arterial Blood Ionized Calcium Urine WBC (Auto) Urine Creatinine Ur Creatinine 24 Hour Urine Total Protein ZINA Screen Crossmatch 02/28/20 02/28/20 02/28/20 05:56 11:05 11:05 WBC Hgb RBC Hct MCV MCH RDW Plt Count Lymph % (Auto) Lymph # [place] % (Auto) [place] # Eos % (Auto) Lymph # (Auto) [place] # (Auto) Eos # (Auto) Seg Neutrophils % Baso # (Auto) Seg Neutrophils # Seg Neuts % (Manual) Lymphocytes % (Manual) Monocytes % (Manual) Nucleated RBC % Seg Neutrophils # Man Lymphocytes # (Manual) Monocytes # (Manual) Eosinophils # (Manual) Basophils # (Manual) ABG pH 7.317 L POC ABG pCO2 POC ABG pO2 76.2 L ABG pO2 ABG HCO3 16.4 L ABG O2 Saturation ABG Base Excess -8.9 L ABG Hemoglobin 6.6 L 7.6 L ABG Oxyhemoglobin ABG Sodium ABG Glucose Oxyhemoglobin 94.6 L Sodium Potassium Chloride Carbon Dioxide BUN Creatinine Glucose POC Glucose 115 H Calcium Phosphorus Magnesium Direct Bilirubin AST Alkaline Phosphatase Albumin Troponin T C-Reactive Protein Ljeyx-1-Bbqygadqo PEP Interpretation Triglycerides Lipase HDL Cholesterol PTH Intact Arterial Blood Glucose Arterial Blood Ionized Calcium Urine WBC (Auto) Urine Creatinine Ur Creatinine 24 Hour Urine Total Protein ZINA Screen Crossmatch 02/28/20 02/28/20 02/29/20 17:39 19:39 05:43 WBC Hgb RBC Hct MCV MCH RDW Plt Count Lymph % (Auto) Lymph # [place] % (Auto) [place] # Eos % (Auto) Lymph # (Auto) [place] # (Auto) Eos # (Auto) Seg Neutrophils % Baso # (Auto) Seg Neutrophils # Seg Neuts % (Manual) Lymphocytes % (Manual) Monocytes % (Manual) Nucleated RBC % Seg Neutrophils # Man Lymphocytes # (Manual) Monocytes # (Manual) Eosinophils # (Manual) Basophils # (Manual) ABG pH 7.300 L POC ABG pCO2 POC ABG pO2 ABG pO2 117.5 H ABG HCO3 15.0 L ABG O2 Saturation ABG Base Excess -10.5 L ABG Hemoglobin 6.4 L ABG Oxyhemoglobin ABG Sodium ABG Glucose Oxyhemoglobin Sodium Potassium Chloride Carbon Dioxide BUN Creatinine Glucose POC Glucose 120 H 66 L Calcium Phosphorus Magnesium Direct Bilirubin AST Alkaline Phosphatase Albumin Troponin T C-Reactive Protein Kcelo-1-Cjbrqyhue PEP Interpretation Triglycerides Lipase HDL Cholesterol PTH Intact Arterial Blood Glucose Arterial Blood Ionized Calcium Urine WBC (Auto) Urine Creatinine Ur Creatinine 24 Hour Urine Total Protein ZINA Screen Crossmatch 02/29/20 02/29/20 02/29/20 05:45 12:04 12:31 WBC Hgb RBC Hct MCV MCH RDW Plt Count Lymph % (Auto) Lymph # [place] % (Auto) [place] # Eos % (Auto) Lymph # (Auto) [place] # (Auto) Eos # (Auto) Seg Neutrophils % Baso # (Auto) Seg Neutrophils # Seg Neuts % (Manual) Lymphocytes % (Manual) Monocytes % (Manual) Nucleated RBC % Seg Neutrophils # Man Lymphocytes # (Manual) Monocytes # (Manual) Eosinophils # (Manual) Basophils # (Manual) ABG pH 7.212 L POC ABG pCO2 POC ABG pO2 ABG pO2 ABG HCO3 ABG O2 Saturation ABG Base Excess ABG Hemoglobin 7.4 L ABG Oxyhemoglobin ABG Sodium ABG Glucose Oxyhemoglobin Sodium Potassium Chloride Carbon Dioxide BUN Creatinine Glucose POC Glucose 65 L 64 L Calcium Phosphorus Magnesium Direct Bilirubin AST Alkaline Phosphatase Albumin Troponin T C-Reactive Protein Punrn-6-Bswfdayhc PEP Interpretation Triglycerides Lipase HDL Cholesterol PTH Intact Arterial Blood Glucose Arterial Blood Ionized Calcium Urine WBC (Auto) Urine Creatinine Ur Creatinine 24 Hour Urine Total Protein ZINA Screen Crossmatch 02/29/20 02/29/20 02/29/20 14:22 14:22 18:20 WBC Hgb RBC Hct MCV MCH RDW Plt Count Lymph % (Auto) Lymph # [place] % (Auto) [place] # Eos % (Auto) Lymph # (Auto) [place] # (Auto) Eos # (Auto) Seg Neutrophils % Baso # (Auto) Seg Neutrophils # Seg Neuts % (Manual) Lymphocytes % (Manual) Monocytes % (Manual) Nucleated RBC % Seg Neutrophils # Man Lymphocytes # (Manual) Monocytes # (Manual) Eosinophils # (Manual) Basophils # (Manual) ABG pH POC ABG pCO2 POC ABG pO2 ABG pO2 ABG HCO3 ABG O2 Saturation ABG Base Excess ABG Hemoglobin ABG Oxyhemoglobin ABG Sodium ABG Glucose Oxyhemoglobin Sodium Potassium Chloride Carbon Dioxide 16 L BUN 77 H Creatinine 4.7 H Glucose POC Glucose 66 L Calcium Phosphorus 7.50 H Magnesium 2.60 H Direct Bilirubin AST Alkaline Phosphatase Albumin 2.3 L Troponin T C-Reactive Protein Shrqp-1-Wxppfleyy PEP Interpretation Triglycerides Lipase HDL Cholesterol PTH Intact Arterial Blood Glucose Arterial Blood Ionized Calcium Urine WBC (Auto) Urine Creatinine Ur Creatinine 24 Hour Urine Total Protein ZINA Screen Crossmatch 02/29/20 03/01/20 03/01/20 18:24 04:05 04:37 WBC Hgb RBC Hct MCV MCH RDW Plt Count Lymph % (Auto) Lymph # [place] % (Auto) [place] # Eos % (Auto) Lymph # (Auto) [place] # (Auto) Eos # (Auto) Seg Neutrophils % Baso # (Auto) Seg Neutrophils # Seg Neuts % (Manual) Lymphocytes % (Manual) Monocytes % (Manual) Nucleated RBC % Seg Neutrophils # Man Lymphocytes # (Manual) Monocytes # (Manual) Eosinophils # (Manual) Basophils # (Manual) ABG pH 7.271 L 7.347 L POC ABG pCO2 POC ABG pO2 ABG pO2 133.5 H ABG HCO3 15.8 L ABG O2 Saturation ABG Base Excess -8.9 L ABG Hemoglobin 7.2 L 7.6 L ABG Oxyhemoglobin 93.4 L ABG Sodium ABG Glucose Oxyhemoglobin Sodium Potassium Chloride 107.6 H Carbon Dioxide 14 L BUN 83 H Creatinine 5.6 H Glucose POC Glucose Calcium Phosphorus 6.10 H Magnesium 2.40 H Direct Bilirubin AST Alkaline Phosphatase Albumin Troponin T C-Reactive Protein Toucy-4-Zbcbnfmoz PEP Interpretation Triglycerides Lipase HDL Cholesterol PTH Intact Arterial Blood Glucose Arterial Blood Ionized Calcium Urine WBC (Auto) Urine Creatinine Ur Creatinine 24 Hour Urine Total Protein ZINA Screen Crossmatch 03/01/20 03/01/20 03/01/20 11:06 16:22 18:12 WBC 30.5 H Hgb 6.2 L RBC 2.92 L Hct 20.8 L MCV 71 L MCH 21 L RDW 18.2 H Plt Count 560 H Lymph % (Auto) Lymph # [place] % (Auto) [place] # Eos % (Auto) Lymph # (Auto) [place] # (Auto) Eos # (Auto) Seg Neutrophils % Baso # (Auto) Seg Neutrophils # Seg Neuts % (Manual) 79.0 H Lymphocytes % (Manual) 3.0 L Monocytes % (Manual) Nucleated RBC % Seg Neutrophils # Man 24.1 H Lymphocytes # (Manual) 0.9 L Monocytes # (Manual) 2.1 H Eosinophils # (Manual) Basophils # (Manual) ABG pH POC ABG pCO2 POC ABG pO2 ABG pO2 ABG HCO3 ABG O2 Saturation ABG Base Excess ABG Hemoglobin ABG Oxyhemoglobin ABG Sodium ABG Glucose Oxyhemoglobin Sodium Potassium 5.3 H D Chloride Carbon Dioxide 11 L BUN 77 H Creatinine 5.0 H Glucose 54 L POC Glucose 121 H Calcium Phosphorus Magnesium Direct Bilirubin AST Alkaline Phosphatase Albumin 3.0 L Troponin T C-Reactive Protein 36.50 H Jzcol-0-Zqhcsqvyo PEP Interpretation Triglycerides Lipase HDL Cholesterol PTH Intact Arterial Blood Glucose Arterial Blood Ionized Calcium Urine WBC (Auto) Urine Creatinine Ur Creatinine 24 Hour Urine Total Protein ZINA Screen Crossmatch 03/01/20 03/01/20 03/01/20 18:30 23:37 Unknown WBC Hgb RBC Hct MCV MCH RDW Plt Count Lymph % (Auto) Lymph # [place] % (Auto) [place] # Eos % (Auto) Lymph # (Auto) [place] # (Auto) Eos # (Auto) Seg Neutrophils % Baso # (Auto) Seg Neutrophils # Seg Neuts % (Manual) Lymphocytes % (Manual) Monocytes % (Manual) Nucleated RBC % Seg Neutrophils # Man Lymphocytes # (Manual) Monocytes # (Manual) Eosinophils # (Manual) Basophils # (Manual) ABG pH POC ABG pCO2 POC ABG pO2 ABG pO2 ABG HCO3 ABG O2 Saturation ABG Base Excess ABG Hemoglobin ABG Oxyhemoglobin ABG Sodium ABG Glucose Oxyhemoglobin Sodium Potassium Chloride Carbon Dioxide BUN Creatinine Glucose POC Glucose 125 H Calcium Phosphorus Magnesium Direct Bilirubin AST Alkaline Phosphatase Albumin Troponin T C-Reactive Protein Piitp-5-Yicdvhxjb PEP Interpretation Triglycerides Lipase 297 H HDL Cholesterol PTH Intact Arterial Blood Glucose Arterial Blood Ionized Calcium Urine WBC (Auto) Urine Creatinine Ur Creatinine 24 Hour Urine Total Protein ZINA Screen Crossmatch See Detail 03/02/20 03/02/20 03/02/20 04:00 05:36 05:36 WBC 26.0 H Hgb 7.8 L RBC 3.26 L Hct 24.2 L MCV 74 L MCH 24 L RDW 21.3 H Plt Count 508 H Lymph % (Auto) Lymph # [place] % (Auto) [place] # Eos % (Auto) Lymph # (Auto) [place] # (Auto) Eos # (Auto) Seg Neutrophils % Baso # (Auto) Seg Neutrophils # Seg Neuts % (Manual) 86.0 H Lymphocytes % (Manual) 4.0 L Monocytes % (Manual) Nucleated RBC % 2.0 H Seg Neutrophils # Man 22.4 H Lymphocytes # (Manual) 1.0 L Monocytes # (Manual) Eosinophils # (Manual) Basophils # (Manual) ABG pH POC ABG pCO2 27.8 L POC ABG pO2 ABG pO2 ABG HCO3 ABG O2 Saturation ABG Base Excess ABG Hemoglobin 8 L ABG Oxyhemoglobin ABG Sodium ABG Glucose Oxyhemoglobin Sodium Potassium Chloride Carbon Dioxide 17 L BUN 85 H Creatinine 5.6 H Glucose 109 H POC Glucose Calcium Phosphorus Magnesium 2.50 H Direct Bilirubin AST Alkaline Phosphatase Albumin 2.3 L Troponin T C-Reactive Protein Wawba-0-Wsufmohox PEP Interpretation Triglycerides Lipase HDL Cholesterol PTH Intact Arterial Blood Glucose Arterial Blood Ionized Calcium Urine WBC (Auto) Urine Creatinine Ur Creatinine 24 Hour Urine Total Protein ZINA Screen Crossmatch 03/03/20 03/03/20 03/03/20 04:00 04:36 04:36 WBC Hgb RBC Hct MCV MCH RDW Plt Count Lymph % (Auto) Lymph # [place] % (Auto) [place] # Eos % (Auto) Lymph # (Auto) [place] # (Auto) Eos # (Auto) Seg Neutrophils % Baso # (Auto) Seg Neutrophils # Seg Neuts % (Manual) Lymphocytes % (Manual) Monocytes % (Manual) Nucleated RBC % Seg Neutrophils # Man Lymphocytes # (Manual) Monocytes # (Manual) Eosinophils # (Manual) Basophils # (Manual) ABG pH POC ABG pCO2 31.8 L POC ABG pO2 ABG pO2 ABG HCO3 ABG O2 Saturation ABG Base Excess ABG Hemoglobin 8.6 L ABG Oxyhemoglobin ABG Sodium ABG Glucose Oxyhemoglobin Sodium 147 H Potassium Chloride 108.4 H Carbon Dioxide 16 L BUN 87 H Creatinine 6.2 H Glucose POC Glucose Calcium Phosphorus Magnesium 2.50 H Direct Bilirubin 1.0 H AST Alkaline Phosphatase Albumin 2.4 L Troponin T C-Reactive Protein Gjzmy-2-Csdrjwpaj PEP Interpretation Triglycerides Lipase 119 H HDL Cholesterol PTH Intact Arterial Blood Glucose Arterial Blood Ionized Calcium Urine WBC (Auto) Urine Creatinine Ur Creatinine 24 Hour Urine Total Protein ZINA Screen Crossmatch 03/03/20 03/03/20 03/03/20 04:36 12:48 17:48 WBC 28.0 H Hgb 8.1 L RBC 3.41 L Hct 25.3 L MCV 74 L MCH 24 L RDW 20.8 H Plt Count 557 H Lymph % (Auto) Lymph # [place] % (Auto) [place] # Eos % (Auto) Lymph # (Auto) [place] # (Auto) Eos # (Auto) Seg Neutrophils % Baso # (Auto) Seg Neutrophils # Seg Neuts % (Manual) 82.0 H Lymphocytes % (Manual) 4.0 L Monocytes % (Manual) Nucleated RBC % Seg Neutrophils # Man 23.0 H Lymphocytes # (Manual) 1.1 L Monocytes # (Manual) 2.0 H Eosinophils # (Manual) Basophils # (Manual) ABG pH POC ABG pCO2 POC ABG pO2 ABG pO2 ABG HCO3 ABG O2 Saturation ABG Base Excess ABG Hemoglobin ABG Oxyhemoglobin ABG Sodium ABG Glucose Oxyhemoglobin Sodium Potassium Chloride Carbon Dioxide BUN Creatinine Glucose POC Glucose 131 H 113 H Calcium Phosphorus Magnesium Direct Bilirubin AST Alkaline Phosphatase Albumin Troponin T C-Reactive Protein Bpmic-9-Dlzosnajm PEP Interpretation Triglycerides Lipase HDL Cholesterol PTH Intact Arterial Blood Glucose Arterial Blood Ionized Calcium Urine WBC (Auto) Urine Creatinine Ur Creatinine 24 Hour Urine Total Protein ZINA Screen Crossmatch 03/03/20 03/04/20 03/04/20 23:43 03:43 04:05 WBC Hgb RBC Hct MCV MCH RDW Plt Count Lymph % (Auto) Lymph # [place] % (Auto) [place] # Eos % (Auto) Lymph # (Auto) [place] # (Auto) Eos # (Auto) Seg Neutrophils % Baso # (Auto) Seg Neutrophils # Seg Neuts % (Manual) Lymphocytes % (Manual) Monocytes % (Manual) Nucleated RBC % Seg Neutrophils # Man Lymphocytes # (Manual) Monocytes # (Manual) Eosinophils # (Manual) Basophils # (Manual) ABG pH POC ABG pCO2 POC ABG pO2 ABG pO2 57.4 L ABG HCO3 27.2 H ABG O2 Saturation 88.6 L ABG Base Excess ABG Hemoglobin ABG Oxyhemoglobin ABG Sodium ABG Glucose Oxyhemoglobin Sodium Potassium 3.3 L Chloride Carbon Dioxide BUN 65 H Creatinine 5.3 H Glucose 152 H POC Glucose 149 H Calcium Phosphorus Magnesium Direct Bilirubin 0.7 H AST Alkaline Phosphatase Albumin 2.5 L Troponin T C-Reactive Protein Tlcpb-2-Vhsioppjr PEP Interpretation Triglycerides Lipase HDL Cholesterol PTH Intact Arterial Blood Glucose Arterial Blood Ionized Calcium Urine WBC (Auto) Urine Creatinine Ur Creatinine 24 Hour Urine Total Protein ZINA Screen Crossmatch 03/04/20 03/04/20 03/04/20 04:05 05:26 12:21 WBC 30.1 H Hgb 8.2 L RBC 3.44 L Hct 25.2 L MCV 73 L MCH 24 L RDW 20.7 H Plt Count 554 H Lymph % (Auto) 3.3 L Lymph # [place] % (Auto) [place] # Eos % (Auto) Lymph # (Auto) 1.0 L [place] # (Auto) 2.0 H Eos # (Auto) Seg Neutrophils % 88.6 H Baso # (Auto) Seg Neutrophils # 26.6 H Seg Neuts % (Manual) Lymphocytes % (Manual) Monocytes % (Manual) Nucleated RBC % Seg Neutrophils # Man Lymphocytes # (Manual) Monocytes # (Manual) Eosinophils # (Manual) Basophils # (Manual) ABG pH POC ABG pCO2 POC ABG pO2 ABG pO2 ABG HCO3 ABG O2 Saturation ABG Base Excess ABG Hemoglobin ABG Oxyhemoglobin ABG Sodium ABG Glucose Oxyhemoglobin Sodium Potassium Chloride Carbon Dioxide BUN Creatinine Glucose POC Glucose 136 H 155 H Calcium Phosphorus Magnesium Direct Bilirubin AST Alkaline Phosphatase Albumin Troponin T C-Reactive Protein Secsm-3-Otiugcpmo PEP Interpretation Triglycerides Lipase HDL Cholesterol PTH Intact Arterial Blood Glucose Arterial Blood Ionized Calcium Urine WBC (Auto) Urine Creatinine Ur Creatinine 24 Hour Urine Total Protein ZINA Screen Crossmatch 03/04/20 03/04/20 03/04/20 18:02 19:00 23:24 WBC Hgb RBC Hct MCV MCH RDW Plt Count Lymph % (Auto) Lymph # [place] % (Auto) [place] # Eos % (Auto) Lymph # (Auto) [place] # (Auto) Eos # (Auto) Seg Neutrophils % Baso # (Auto) Seg Neutrophils # Seg Neuts % (Manual) Lymphocytes % (Manual) Monocytes % (Manual) Nucleated RBC % Seg Neutrophils # Man Lymphocytes # (Manual) Monocytes # (Manual) Eosinophils # (Manual) Basophils # (Manual) ABG pH POC ABG pCO2 POC ABG pO2 ABG pO2 ABG HCO3 ABG O2 Saturation ABG Base Excess ABG Hemoglobin ABG Oxyhemoglobin ABG Sodium ABG Glucose Oxyhemoglobin Sodium Potassium Chloride Carbon Dioxide BUN Creatinine Glucose POC Glucose 124 H 115 H Calcium Phosphorus Magnesium Direct Bilirubin AST Alkaline Phosphatase Albumin Troponin T C-Reactive Protein Ypuhh-3-Rwxfvzgzz PEP Interpretation Triglycerides Lipase 72 H HDL Cholesterol PTH Intact Arterial Blood Glucose Arterial Blood Ionized Calcium Urine WBC (Auto) Urine Creatinine Ur Creatinine 24 Hour Urine Total Protein ZINA Screen Crossmatch 03/05/20 03/05/20 03/05/20 05:04 05:29 06:00 WBC Hgb RBC Hct MCV MCH RDW Plt Count Lymph % (Auto) Lymph # [place] % (Auto) [place] # Eos % (Auto) Lymph # (Auto) [place] # (Auto) Eos # (Auto) Seg Neutrophils % Baso # (Auto) Seg Neutrophils # Seg Neuts % (Manual) Lymphocytes % (Manual) Monocytes % (Manual) Nucleated RBC % Seg Neutrophils # Man Lymphocytes # (Manual) Monocytes # (Manual) Eosinophils # (Manual) Basophils # (Manual) ABG pH POC ABG pCO2 POC ABG pO2 ABG pO2 62.5 L ABG HCO3 26.4 H ABG O2 Saturation 92.1 L ABG Base Excess ABG Hemoglobin 9.3 L ABG Oxyhemoglobin ABG Sodium ABG Glucose Oxyhemoglobin 89.9 L Sodium Potassium Chloride Carbon Dioxide BUN 54 H Creatinine 5.4 H Glucose 125 H POC Glucose 134 H Calcium Phosphorus Magnesium Direct Bilirubin 0.6 H AST Alkaline Phosphatase 133 H Albumin 2.5 L Troponin T C-Reactive Protein Qpubf-5-Jwfdtygxh PEP Interpretation Triglycerides Lipase HDL Cholesterol PTH Intact Arterial Blood Glucose Arterial Blood Ionized Calcium Urine WBC (Auto) Urine Creatinine Ur Creatinine 24 Hour Urine Total Protein ZINA Screen Crossmatch 03/05/20 03/05/20 03/05/20 12:18 18:01 21:39 WBC Hgb RBC Hct MCV MCH RDW Plt Count Lymph % (Auto) Lymph # [place] % (Auto) [place] # Eos % (Auto) Lymph # (Auto) [place] # (Auto) Eos # (Auto) Seg Neutrophils % Baso # (Auto) Seg Neutrophils # Seg Neuts % (Manual) Lymphocytes % (Manual) Monocytes % (Manual) Nucleated RBC % Seg Neutrophils # Man Lymphocytes # (Manual) Monocytes # (Manual) Eosinophils # (Manual) Basophils # (Manual) ABG pH POC ABG pCO2 POC ABG pO2 ABG pO2 ABG HCO3 ABG O2 Saturation ABG Base Excess ABG Hemoglobin ABG Oxyhemoglobin ABG Sodium ABG Glucose Oxyhemoglobin Sodium Potassium Chloride Carbon Dioxide BUN Creatinine Glucose POC Glucose 118 H 108 H 123 H Calcium Phosphorus Magnesium Direct Bilirubin AST Alkaline Phosphatase Albumin Troponin T C-Reactive Protein Zqmhz-9-Kzbmsytwh PEP Interpretation Triglycerides Lipase HDL Cholesterol PTH Intact Arterial Blood Glucose Arterial Blood Ionized Calcium Urine WBC (Auto) Urine Creatinine Ur Creatinine 24 Hour Urine Total Protein ZINA Screen Crossmatch 03/06/20 03/06/20 03/06/20 04:40 04:41 05:44 WBC Hgb RBC Hct MCV MCH RDW Plt Count Lymph % (Auto) Lymph # [place] % (Auto) [place] # Eos % (Auto) Lymph # (Auto) [place] # (Auto) Eos # (Auto) Seg Neutrophils % Baso # (Auto) Seg Neutrophils # Seg Neuts % (Manual) Lymphocytes % (Manual) Monocytes % (Manual) Nucleated RBC % Seg Neutrophils # Man Lymphocytes # (Manual) Monocytes # (Manual) Eosinophils # (Manual) Basophils # (Manual) ABG pH POC ABG pCO2 POC ABG pO2 64.9 L ABG pO2 ABG HCO3 ABG O2 Saturation ABG Base Excess ABG Hemoglobin 9.9 L ABG Oxyhemoglobin 90.5 L ABG Sodium ABG Glucose Oxyhemoglobin Sodium Potassium Chloride 94.7 L Carbon Dioxide BUN 70 H Creatinine 7.1 H Glucose 113 H POC Glucose 134 H Calcium Phosphorus Magnesium Direct Bilirubin AST Alkaline Phosphatase Albumin Troponin T C-Reactive Protein Vpwwj-9-Gyudhqvov PEP Interpretation Triglycerides Lipase HDL Cholesterol PTH Intact Arterial Blood Glucose Arterial Blood Ionized Calcium Urine WBC (Auto) Urine Creatinine Ur Creatinine 24 Hour Urine Total Protein ZINA Screen Crossmatch 03/06/20 03/06/20 03/06/20 08:54 11:56 18:19 WBC 31.5 H Hgb 8.7 L RBC Hct 27.8 L MCV 75 L MCH 23 L RDW 21.2 H Plt Count 516 H Lymph % (Auto) Lymph # [place] % (Auto) [place] # Eos % (Auto) Lymph # (Auto) [place] # (Auto) Eos # (Auto) Seg Neutrophils % Baso # (Auto) Seg Neutrophils # Seg Neuts % (Manual) 93.0 H Lymphocytes % (Manual) 2.0 L Monocytes % (Manual) Nucleated RBC % Seg Neutrophils # Man 29.3 H Lymphocytes # (Manual) 0.6 L Monocytes # (Manual) Eosinophils # (Manual) 0.6 H Basophils # (Manual) ABG pH POC ABG pCO2 POC ABG pO2 ABG pO2 ABG HCO3 ABG O2 Saturation ABG Base Excess ABG Hemoglobin ABG Oxyhemoglobin ABG Sodium ABG Glucose Oxyhemoglobin Sodium Potassium Chloride Carbon Dioxide BUN Creatinine Glucose POC Glucose 131 H 117 H Calcium Phosphorus Magnesium Direct Bilirubin AST Alkaline Phosphatase Albumin Troponin T C-Reactive Protein Tihod-5-Lftnxqluf PEP Interpretation Triglycerides Lipase HDL Cholesterol PTH Intact Arterial Blood Glucose Arterial Blood Ionized Calcium Urine WBC (Auto) Urine Creatinine Ur Creatinine 24 Hour Urine Total Protein ZINA Screen Crossmatch 03/07/20 03/07/20 03/07/20 04:42 05:03 05:03 WBC 26.9 H Hgb 8.3 L RBC 3.50 L Hct 26.6 L MCV 76 L MCH 24 L RDW 21.3 H Plt Count 470 H Lymph % (Auto) Lymph # [place] % (Auto) [place] # Eos % (Auto) Lymph # (Auto) [place] # (Auto) Eos # (Auto) Seg Neutrophils % Baso # (Auto) Seg Neutrophils # Seg Neuts % (Manual) 89.0 H Lymphocytes % (Manual) 4.0 L Monocytes % (Manual) Nucleated RBC % Seg Neutrophils # Man 23.9 H Lymphocytes # (Manual) 1.1 L Monocytes # (Manual) Eosinophils # (Manual) Basophils # (Manual) 0.3 H ABG pH POC ABG pCO2 POC ABG pO2 68.3 L ABG pO2 ABG HCO3 ABG O2 Saturation ABG Base Excess ABG Hemoglobin 9.3 L ABG Oxyhemoglobin ABG Sodium ABG Glucose 112 H Oxyhemoglobin Sodium Potassium Chloride 94.8 L Carbon Dioxide BUN 52 H Creatinine 6.3 H Glucose 106 H POC Glucose Calcium Phosphorus Magnesium Direct Bilirubin AST Alkaline Phosphatase 132 H Albumin 2.5 L Troponin T C-Reactive Protein Oydxa-0-Qijlsmkop PEP Interpretation Triglycerides Lipase HDL Cholesterol PTH Intact Arterial Blood Glucose 112 H Arterial Blood Ionized Calcium Urine WBC (Auto) Urine Creatinine Ur Creatinine 24 Hour Urine Total Protein ZINA Screen Crossmatch 03/07/20 03/07/20 03/07/20 12:08 18:05 23:29 WBC Hgb RBC Hct MCV MCH RDW Plt Count Lymph % (Auto) Lymph # [place] % (Auto) [place] # Eos % (Auto) Lymph # (Auto) [place] # (Auto) Eos # (Auto) Seg Neutrophils % Baso # (Auto) Seg Neutrophils # Seg Neuts % (Manual) Lymphocytes % (Manual) Monocytes % (Manual) Nucleated RBC % Seg Neutrophils # Man Lymphocytes # (Manual) Monocytes # (Manual) Eosinophils # (Manual) Basophils # (Manual) ABG pH POC ABG pCO2 POC ABG pO2 ABG pO2 ABG HCO3 ABG O2 Saturation ABG Base Excess ABG Hemoglobin ABG Oxyhemoglobin ABG Sodium ABG Glucose Oxyhemoglobin Sodium Potassium Chloride Carbon Dioxide BUN Creatinine Glucose POC Glucose 114 H 111 H 118 H Calcium Phosphorus Magnesium Direct Bilirubin AST Alkaline Phosphatase Albumin Troponin T C-Reactive Protein Wmjfu-5-Pshfcbejj PEP Interpretation Triglycerides Lipase HDL Cholesterol PTH Intact Arterial Blood Glucose Arterial Blood Ionized Calcium Urine WBC (Auto) Urine Creatinine Ur Creatinine 24 Hour Urine Total Protein ZINA Screen Crossmatch 03/08/20 03/08/20 03/08/20 04:50 17:45 23:53 WBC Hgb RBC Hct MCV MCH RDW Plt Count Lymph % (Auto) Lymph # [place] % (Auto) [place] # Eos % (Auto) Lymph # (Auto) [place] # (Auto) Eos # (Auto) Seg Neutrophils % Baso # (Auto) Seg Neutrophils # Seg Neuts % (Manual) Lymphocytes % (Manual) Monocytes % (Manual) Nucleated RBC % Seg Neutrophils # Man Lymphocytes # (Manual) Monocytes # (Manual) Eosinophils # (Manual) Basophils # (Manual) ABG pH POC ABG pCO2 POC ABG pO2 ABG pO2 ABG HCO3 ABG O2 Saturation ABG Base Excess ABG Hemoglobin ABG Oxyhemoglobin ABG Sodium ABG Glucose Oxyhemoglobin Sodium Potassium Chloride 95.5 L Carbon Dioxide BUN 52 H Creatinine 6.2 H Glucose 109 H POC Glucose 106 H 106 H Calcium Phosphorus Magnesium Direct Bilirubin AST Alkaline Phosphatase Albumin Troponin T C-Reactive Protein Gisyo-5-Hlcyotdee PEP Interpretation Triglycerides Lipase HDL Cholesterol PTH Intact Arterial Blood Glucose Arterial Blood Ionized Calcium Urine WBC (Auto) Urine Creatinine Ur Creatinine 24 Hour Urine Total Protein ZINA Screen Crossmatch 03/09/20 03/09/20 03/09/20 04:00 07:53 18:22 WBC 21.9 H Hgb 7.5 L RBC 3.27 L Hct 24.3 L MCV 74 L MCH 23 L RDW 20.9 H Plt Count 488 H Lymph % (Auto) Lymph # [place] % (Auto) [place] # Eos % (Auto) Lymph # (Auto) [place] # (Auto) Eos # (Auto) Seg Neutrophils % Baso # (Auto) Seg Neutrophils # Seg Neuts % (Manual) Lymphocytes % (Manual) Monocytes % (Manual) Nucleated RBC % Seg Neutrophils # Man Lymphocytes # (Manual) Monocytes # (Manual) Eosinophils # (Manual) Basophils # (Manual) ABG pH POC ABG pCO2 POC ABG pO2 ABG pO2 ABG HCO3 ABG O2 Saturation ABG Base Excess ABG Hemoglobin ABG Oxyhemoglobin ABG Sodium ABG Glucose Oxyhemoglobin Sodium Potassium Chloride 92.8 L Carbon Dioxide BUN 74 H Creatinine 7.8 H Glucose POC Glucose 114 H Calcium Phosphorus Magnesium Direct Bilirubin AST Alkaline Phosphatase Albumin Troponin T C-Reactive Protein Hohjv-0-Aagxuihny PEP Interpretation Triglycerides Lipase HDL Cholesterol PTH Intact Arterial Blood Glucose Arterial Blood Ionized Calcium Urine WBC (Auto) Urine Creatinine Ur Creatinine 24 Hour Urine Total Protein ZINA Screen Crossmatch 03/10/20 03/10/20 03/10/20 04:37 04:37 09:53 WBC 16.0 H Hgb 7.1 L RBC 2.99 L Hct 22.4 L MCV 75 L MCH 24 L RDW 21.5 H Plt Count Lymph % (Auto) 9.2 L Lymph # [place] % (Auto) 9.9 H [place] # Eos % (Auto) Lymph # (Auto) [place] # (Auto) 1.6 H Eos # (Auto) Seg Neutrophils % 79.2 H Baso # (Auto) Seg Neutrophils # 12.6 H Seg Neuts % (Manual) Lymphocytes % (Manual) Monocytes % (Manual) Nucleated RBC % Seg Neutrophils # Man Lymphocytes # (Manual) Monocytes # (Manual) Eosinophils # (Manual) Basophils # (Manual) ABG pH POC ABG pCO2 POC ABG pO2 ABG pO2 ABG HCO3 ABG O2 Saturation ABG Base Excess ABG Hemoglobin 7.7 L ABG Oxyhemoglobin ABG Sodium 134.7 L ABG Glucose 103 H Oxyhemoglobin Sodium Potassium Chloride Carbon Dioxide BUN 45 H Creatinine 5.6 H Glucose 108 H POC Glucose Calcium Phosphorus Magnesium Direct Bilirubin AST Alkaline Phosphatase Albumin Troponin T C-Reactive Protein Sgqvn-2-Tuvvokqdb PEP Interpretation Triglycerides Lipase HDL Cholesterol PTH Intact Arterial Blood Glucose 103 H Arterial Blood Ionized Calcium Urine WBC (Auto) Urine Creatinine Ur Creatinine 24 Hour Urine Total Protein ZINA Screen Crossmatch 03/10/20 03/11/20 03/11/20 23:46 02:52 03:25 WBC Hgb RBC Hct MCV MCH RDW Plt Count Lymph % (Auto) Lymph # [place] % (Auto) [place] # Eos % (Auto) Lymph # (Auto) [place] # (Auto) Eos # (Auto) Seg Neutrophils % Baso # (Auto) Seg Neutrophils # Seg Neuts % (Manual) Lymphocytes % (Manual) Monocytes % (Manual) Nucleated RBC % Seg Neutrophils # Man Lymphocytes # (Manual) Monocytes # (Manual) Eosinophils # (Manual) Basophils # (Manual) ABG pH POC ABG pCO2 POC ABG pO2 77.5 L ABG pO2 ABG HCO3 ABG O2 Saturation ABG Base Excess ABG Hemoglobin 8.0 L ABG Oxyhemoglobin ABG Sodium 135.8 L ABG Glucose Oxyhemoglobin Sodium Potassium Chloride Carbon Dioxide BUN Creatinine Glucose POC Glucose 116 H Calcium Phosphorus Magnesium Direct Bilirubin AST Alkaline Phosphatase Albumin Troponin T 0.093 H C-Reactive Protein Fgxfn-3-Mlveyhvxb PEP Interpretation Triglycerides Lipase HDL Cholesterol PTH Intact Arterial Blood Glucose Arterial Blood Ionized Calcium Urine WBC (Auto) Urine Creatinine Ur Creatinine 24 Hour Urine Total Protein ZINA Screen Crossmatch 03/11/20 03/11/20 03/11/20 04:32 04:32 06:16 WBC 22.4 H Hgb 7.8 L RBC 3.32 L Hct 25.0 L MCV 75 L MCH 24 L RDW 21.4 H Plt Count 553 H Lymph % (Auto) Lymph # [place] % (Auto) [place] # Eos % (Auto) Lymph # (Auto) [place] # (Auto) Eos # (Auto) Seg Neutrophils % Baso # (Auto) Seg Neutrophils # Seg Neuts % (Manual) 81.0 H Lymphocytes % (Manual) 8.0 L Monocytes % (Manual) 8.0 H Nucleated RBC % Seg Neutrophils # Man 18.1 H Lymphocytes # (Manual) Monocytes # (Manual) 1.8 H Eosinophils # (Manual) Basophils # (Manual) 0.2 H ABG pH POC ABG pCO2 POC ABG pO2 ABG pO2 ABG HCO3 ABG O2 Saturation ABG Base Excess ABG Hemoglobin ABG Oxyhemoglobin ABG Sodium ABG Glucose Oxyhemoglobin Sodium Potassium Chloride 96.6 L Carbon Dioxide BUN 64 H Creatinine 6.5 H Glucose 101 H POC Glucose 142 H Calcium Phosphorus Magnesium Direct Bilirubin AST 41 H Alkaline Phosphatase Albumin 2.7 L Troponin T C-Reactive Protein Eiwdv-5-Qqdrzhnso PEP Interpretation Triglycerides Lipase HDL Cholesterol PTH Intact Arterial Blood Glucose Arterial Blood Ionized Calcium Urine WBC (Auto) Urine Creatinine Ur Creatinine 24 Hour Urine Total Protein ZINA Screen Crossmatch 03/11/20 03/11/20 03/11/20 06:50 07:31 14:31 WBC Hgb 7.7 L RBC Hct 23.7 L MCV MCH RDW Plt Count 553 H Lymph % (Auto) Lymph # [place] % (Auto) [place] # Eos % (Auto) Lymph # (Auto) [place] # (Auto) Eos # (Auto) Seg Neutrophils % Baso # (Auto) Seg Neutrophils # Seg Neuts % (Manual) Lymphocytes % (Manual) Monocytes % (Manual) Nucleated RBC % Seg Neutrophils # Man Lymphocytes # (Manual) Monocytes # (Manual) Eosinophils # (Manual) Basophils # (Manual) ABG pH POC ABG pCO2 POC ABG pO2 ABG pO2 67.8 L ABG HCO3 ABG O2 Saturation ABG Base Excess ABG Hemoglobin ABG Oxyhemoglobin ABG Sodium ABG Glucose Oxyhemoglobin Sodium Potassium Chloride Carbon Dioxide BUN Creatinine Glucose POC Glucose Calcium Phosphorus Magnesium Direct Bilirubin AST Alkaline Phosphatase Albumin Troponin T 0.085 H C-Reactive Protein Yewns-5-Dlsvrupkt PEP Interpretation Triglycerides 247 H Lipase HDL Cholesterol 28 L PTH Intact Arterial Blood Glucose Arterial Blood Ionized Calcium Urine WBC (Auto) Urine Creatinine Ur Creatinine 24 Hour Urine Total Protein ZINA Screen Crossmatch 03/12/20 03/12/20 03/13/20 03:46 17:33 04:00 WBC Hgb 6.6 L RBC Hct 19.5 L* MCV MCH RDW Plt Count 603 H Lymph % (Auto) Lymph # [place] % (Auto) [place] # Eos % (Auto) Lymph # (Auto) [place] # (Auto) Eos # (Auto) Seg Neutrophils % Baso # (Auto) Seg Neutrophils # Seg Neuts % (Manual) Lymphocytes % (Manual) Monocytes % (Manual) Nucleated RBC % Seg Neutrophils # Man Lymphocytes # (Manual) Monocytes # (Manual) Eosinophils # (Manual) Basophils # (Manual) ABG pH POC ABG pCO2 POC ABG pO2 78.3 L ABG pO2 ABG HCO3 ABG O2 Saturation ABG Base Excess ABG Hemoglobin 7.9 L ABG Oxyhemoglobin ABG Sodium 134.8 L ABG Glucose Oxyhemoglobin Sodium Potassium Chloride Carbon Dioxide BUN Creatinine Glucose POC Glucose 107 H Calcium Phosphorus Magnesium Direct Bilirubin AST Alkaline Phosphatase Albumin Troponin T C-Reactive Protein Xayxy-3-Wkzzenvgr PEP Interpretation Triglycerides Lipase HDL Cholesterol PTH Intact Arterial Blood Glucose Arterial Blood Ionized Calcium Urine WBC (Auto) Urine Creatinine Ur Creatinine 24 Hour Urine Total Protein ZINA Screen Crossmatch 03/13/20 03/13/20 03/13/20 04:00 08:20 08:45 WBC Hgb 7.0 L RBC Hct 21.8 L MCV MCH RDW Plt Count Lymph % (Auto) Lymph # [place] % (Auto) [place] # Eos % (Auto) Lymph # (Auto) [place] # (Auto) Eos # (Auto) Seg Neutrophils % Baso # (Auto) Seg Neutrophils # Seg Neuts % (Manual) Lymphocytes % (Manual) Monocytes % (Manual) Nucleated RBC % Seg Neutrophils # Man Lymphocytes # (Manual) Monocytes # (Manual) Eosinophils # (Manual) Basophils # (Manual) ABG pH POC ABG pCO2 POC ABG pO2 ABG pO2 ABG HCO3 27.4 H ABG O2 Saturation ABG Base Excess ABG Hemoglobin 8.7 L ABG Oxyhemoglobin ABG Sodium ABG Glucose Oxyhemoglobin 94.6 L Sodium Potassium Chloride Carbon Dioxide BUN Creatinine Glucose POC Glucose Calcium Phosphorus Magnesium Direct Bilirubin AST Alkaline Phosphatase Albumin Troponin T C-Reactive Protein Zspns-3-Yulodjtnp PEP Interpretation Triglycerides Lipase HDL Cholesterol PTH Intact Arterial Blood Glucose Arterial Blood Ionized Calcium Urine WBC (Auto) Urine Creatinine Ur Creatinine 24 Hour Urine Total Protein ZINA Screen Crossmatch See Detail 03/13/20 03/13/20 03/14/20 14:23 15:38 06:15 WBC Hgb RBC Hct MCV MCH RDW Plt Count Lymph % (Auto) Lymph # [place] % (Auto) [place] # Eos % (Auto) Lymph # (Auto) [place] # (Auto) Eos # (Auto) Seg Neutrophils % Baso # (Auto) Seg Neutrophils # Seg Neuts % (Manual) Lymphocytes % (Manual) Monocytes % (Manual) Nucleated RBC % Seg Neutrophils # Man Lymphocytes # (Manual) Monocytes # (Manual) Eosinophils # (Manual) Basophils # (Manual) ABG pH 7.462 H POC ABG pCO2 POC ABG pO2 75.1 L ABG pO2 ABG HCO3 ABG O2 Saturation ABG Base Excess ABG Hemoglobin 8.9 L ABG Oxyhemoglobin ABG Sodium 135.9 L ABG Glucose Oxyhemoglobin Sodium Potassium Chloride 94.2 L 93.1 L Carbon Dioxide BUN 32 H 45 H Creatinine 3.6 H 4.9 H Glucose POC Glucose Calcium Phosphorus Magnesium Direct Bilirubin AST Alkaline Phosphatase Albumin Troponin T C-Reactive Protein Bdkga-2-Xborysaoq PEP Interpretation Triglycerides Lipase HDL Cholesterol PTH Intact Arterial Blood Glucose Arterial Blood Ionized Calcium 4.5 L Urine WBC (Auto) Urine Creatinine Ur Creatinine 24 Hour Urine Total Protein ZINA Screen Crossmatch 03/14/20 03/14/20 03/15/20 06:15 Unknown 04:31 WBC 13.7 H Hgb 7.8 L 7.7 L 8.1 L RBC 3.13 L Hct 22.4 L 23.8 L 24.7 L MCV 76 L MCH 25 L RDW 21.6 H Plt Count 662 H 729 H Lymph % (Auto) Lymph # [place] % (Auto) [place] # Eos % (Auto) Lymph # (Auto) [place] # (Auto) 1.0 H Eos # (Auto) 0.6 H Seg Neutrophils % 71.5 H Baso # (Auto) Seg Neutrophils # 9.8 H Seg Neuts % (Manual) Lymphocytes % (Manual) Monocytes % (Manual) Nucleated RBC % Seg Neutrophils # Man Lymphocytes # (Manual) Monocytes # (Manual) Eosinophils # (Manual) Basophils # (Manual) ABG pH POC ABG pCO2 POC ABG pO2 ABG pO2 ABG HCO3 ABG O2 Saturation ABG Base Excess ABG Hemoglobin ABG Oxyhemoglobin ABG Sodium ABG Glucose Oxyhemoglobin Sodium Potassium Chloride Carbon Dioxide BUN Creatinine Glucose POC Glucose Calcium Phosphorus Magnesium Direct Bilirubin AST Alkaline Phosphatase Albumin Troponin T C-Reactive Protein Nhlgw-7-Muubtnyhy PEP Interpretation Triglycerides Lipase HDL Cholesterol PTH Intact Arterial Blood Glucose Arterial Blood Ionized Calcium Urine WBC (Auto) Urine Creatinine Ur Creatinine 24 Hour Urine Total Protein ZINA Screen Crossmatch 03/15/20 03/15/20 03/16/20 04:31 13:20 00:17 WBC Hgb RBC Hct MCV MCH RDW Plt Count Lymph % (Auto) Lymph # [place] % (Auto) [place] # Eos % (Auto) Lymph # (Auto) [place] # (Auto) Eos # (Auto) Seg Neutrophils % Baso # (Auto) Seg Neutrophils # Seg Neuts % (Manual) Lymphocytes % (Manual) Monocytes % (Manual) Nucleated RBC % Seg Neutrophils # Man Lymphocytes # (Manual) Monocytes # (Manual) Eosinophils # (Manual) Basophils # (Manual) ABG pH POC ABG pCO2 POC ABG pO2 ABG pO2 ABG HCO3 28.9 H ABG O2 Saturation ABG Base Excess 3.9 H ABG Hemoglobin 8.6 L ABG Oxyhemoglobin ABG Sodium ABG Glucose Oxyhemoglobin 94.9 L Sodium Potassium Chloride 95.9 L Carbon Dioxide BUN 60 H Creatinine 5.6 H Glucose POC Glucose 111 H Calcium Phosphorus Magnesium Direct Bilirubin AST Alkaline Phosphatase Albumin Troponin T C-Reactive Protein Rrxti-5-Kctsooyrm PEP Interpretation Triglycerides Lipase HDL Cholesterol PTH Intact Arterial Blood Glucose Arterial Blood Ionized Calcium Urine WBC (Auto) Urine Creatinine Ur Creatinine 24 Hour Urine Total Protein ZINA Screen Crossmatch 03/16/20 03/16/20 03/17/20 04:52 04:52 04:55 WBC 13.9 H Hgb 8.3 L 9.1 L RBC 3.35 L Hct 25.8 L 28.2 L MCV 77 L MCH 25 L RDW 22.1 H Plt Count 799 H 818 H Lymph % (Auto) 11.1 L Lymph # [place] % (Auto) [place] # Eos % (Auto) 4.4 H Lymph # (Auto) [place] # (Auto) 0.9 H Eos # (Auto) 0.6 H Seg Neutrophils % 77.4 H Baso # (Auto) Seg Neutrophils # 10.8 H Seg Neuts % (Manual) Lymphocytes % (Manual) Monocytes % (Manual) Nucleated RBC % Seg Neutrophils # Man Lymphocytes # (Manual) Monocytes # (Manual) Eosinophils # (Manual) Basophils # (Manual) ABG pH POC ABG pCO2 POC ABG pO2 ABG pO2 ABG HCO3 ABG O2 Saturation ABG Base Excess ABG Hemoglobin ABG Oxyhemoglobin ABG Sodium ABG Glucose Oxyhemoglobin Sodium Potassium Chloride 93.8 L Carbon Dioxide BUN 72 H Creatinine 5.8 H Glucose POC Glucose Calcium Phosphorus Magnesium Direct Bilirubin AST Alkaline Phosphatase Albumin 2.7 L Troponin T C-Reactive Protein Mrgbk-3-Ujjwucvcg PEP Interpretation Triglycerides Lipase HDL Cholesterol PTH Intact Arterial Blood Glucose Arterial Blood Ionized Calcium Urine WBC (Auto) Urine Creatinine Ur Creatinine 24 Hour Urine Total Protein ZINA Screen Crossmatch 03/17/20 03/18/20 03/18/20 04:55 10:28 14:00 WBC Hgb RBC Hct MCV MCH RDW Plt Count Lymph % (Auto) Lymph # [place] % (Auto) [place] # Eos % (Auto) Lymph # (Auto) [place] # (Auto) Eos # (Auto) Seg Neutrophils % Baso # (Auto) Seg Neutrophils # Seg Neuts % (Manual) Lymphocytes % (Manual) Monocytes % (Manual) Nucleated RBC % Seg Neutrophils # Man Lymphocytes # (Manual) Monocytes # (Manual) Eosinophils # (Manual) Basophils # (Manual) ABG pH POC ABG pCO2 POC ABG pO2 ABG pO2 ABG HCO3 ABG O2 Saturation ABG Base Excess ABG Hemoglobin ABG Oxyhemoglobin ABG Sodium ABG Glucose Oxyhemoglobin Sodium Potassium Chloride 93.5 L 94.4 L Carbon Dioxide BUN 40 H 37 H Creatinine 3.8 H 3.0 H Glucose 112 H POC Glucose Calcium Phosphorus Magnesium Direct Bilirubin AST Alkaline Phosphatase Albumin Troponin T C-Reactive Protein Pcgce-9-Dyailszhl PEP Interpretation Triglycerides Lipase HDL Cholesterol PTH Intact Arterial Blood Glucose Arterial Blood Ionized Calcium Urine WBC (Auto) Urine Creatinine 278.4 H Ur Creatinine 24 Hour 0.3 L Urine Total Protein ZINA Screen Crossmatch 03/19/20 03/19/20 03/20/20 05:55 05:55 04:31 WBC 15.1 H Hgb 9.4 L RBC Hct 29.3 L MCV 78 L MCH 25 L RDW 21.9 H Plt Count 775 H Lymph % (Auto) Lymph # [place] % (Auto) [place] # Eos % (Auto) 5.4 H Lymph # (Auto) [place] # (Auto) 0.9 H Eos # (Auto) 0.8 H Seg Neutrophils % 73.7 H Baso # (Auto) 0.2 H Seg Neutrophils # 11.1 H Seg Neuts % (Manual) Lymphocytes % (Manual) Monocytes % (Manual) Nucleated RBC % Seg Neutrophils # Man Lymphocytes # (Manual) Monocytes # (Manual) Eosinophils # (Manual) Basophils # (Manual) ABG pH POC ABG pCO2 POC ABG pO2 ABG pO2 ABG HCO3 ABG O2 Saturation ABG Base Excess ABG Hemoglobin ABG Oxyhemoglobin ABG Sodium ABG Glucose Oxyhemoglobin Sodium 136 L Potassium Chloride 92.0 L 94.8 L Carbon Dioxide BUN 28 H 40 H Creatinine 3.5 H 4.3 H Glucose POC Glucose Calcium Phosphorus Magnesium Direct Bilirubin AST Alkaline Phosphatase Albumin Troponin T C-Reactive Protein Xyght-6-Sntcmvzuu PEP Interpretation Triglycerides Lipase HDL Cholesterol PTH Intact Arterial Blood Glucose Arterial Blood Ionized Calcium Urine WBC (Auto) Urine Creatinine Ur Creatinine 24 Hour Urine Total Protein ZINA Screen Crossmatch 03/21/20 03/22/20 03/23/20 05:00 04:21 04:23 WBC Hgb RBC Hct MCV MCH RDW Plt Count Lymph % (Auto) Lymph # [place] % (Auto) [place] # Eos % (Auto) Lymph # (Auto) [place] # (Auto) Eos # (Auto) Seg Neutrophils % Baso # (Auto) Seg Neutrophils # Seg Neuts % (Manual) Lymphocytes % (Manual) Monocytes % (Manual) Nucleated RBC % Seg Neutrophils # Man Lymphocytes # (Manual) Monocytes # (Manual) Eosinophils # (Manual) Basophils # (Manual) ABG pH POC ABG pCO2 POC ABG pO2 ABG pO2 ABG HCO3 ABG O2 Saturation ABG Base Excess ABG Hemoglobin ABG Oxyhemoglobin ABG Sodium ABG Glucose Oxyhemoglobin Sodium Potassium Chloride 94.2 L 94.7 L 97.9 L Carbon Dioxide BUN 23 H 33 H 39 H Creatinine 3.6 H 4.3 H 4.3 H Glucose POC Glucose Calcium Phosphorus Magnesium Direct Bilirubin AST Alkaline Phosphatase Albumin Troponin T C-Reactive Protein Cwmni-3-Dqoneambk PEP Interpretation Triglycerides Lipase HDL Cholesterol PTH Intact Arterial Blood Glucose Arterial Blood Ionized Calcium Urine WBC (Auto) Urine Creatinine Ur Creatinine 24 Hour Urine Total Protein ZINA Screen Crossmatch 03/24/20 04:18 WBC Hgb RBC Hct MCV MCH RDW Plt Count Lymph % (Auto) Lymph # [place] % (Auto) [place] # Eos % (Auto) Lymph # (Auto) [place] # (Auto) Eos # (Auto) Seg Neutrophils % Baso # (Auto) Seg Neutrophils # Seg Neuts % (Manual) Lymphocytes % (Manual) Monocytes % (Manual) Nucleated RBC % Seg Neutrophils # Man Lymphocytes # (Manual) Monocytes # (Manual) Eosinophils # (Manual) Basophils # (Manual) ABG pH POC ABG pCO2 POC ABG pO2 ABG pO2 ABG HCO3 ABG O2 Saturation ABG Base Excess ABG Hemoglobin ABG Oxyhemoglobin ABG Sodium ABG Glucose Oxyhemoglobin Sodium 136 L Potassium Chloride 94.4 L Carbon Dioxide BUN 21 H Creatinine 3.6 H Glucose POC Glucose Calcium Phosphorus Magnesium Direct Bilirubin AST Alkaline Phosphatase Albumin Troponin T C-Reactive Protein Hkdyc-8-Fvxjrsruc PEP Interpretation Triglycerides Lipase HDL Cholesterol PTH Intact Arterial Blood Glucose Arterial Blood Ionized Calcium Urine WBC (Auto) Urine Creatinine Ur Creatinine 24 Hour Urine Total Protein ZINA Screen Crossmatch Allied health notes reviewed: nursing
[2020-03-24] MEDS: FAMOTIDINE 20 MG TAB PO SCH (11:17)
[2020-03-24] MEDS: NIFEdipine XL 60 MG TAB PO SCH (11:17)
[2020-03-24] MEDS: METOPROLOL TARTRATE 25 MG TAB PO SCH (11:17)
[2020-03-24] MEDS: ASPIRIN 325 MG TAB PO SCH (11:17)
--- NOTE | 2020-03-24 11:44 | Discharge Summary ---
Providers - Providers Date of Admission: 02/24/20 11:38 Date of discharge: 03/24/20 Attending physician: LUCIO JUSTICE MD 02/24/20 06:45 Consult to Dietitian/Nutrition [CONS] Routine Physician Instructions: Reason For Exam: Reason for Consult: Diet education Consult to Physician [CONS] Routine Comment: spoke to dr. dominguez/ don Consulting Provider: BERNABE DOMINGUEZ Physician Instructions: Reason For Exam: HYPERTENSIVE URGENCY 02/24/20 08:01 Consult to Physician [CONS] Routine Comment: called office/don Consulting Provider: KATE IRVIN Physician Instructions: Reason For Exam: Acute pancreatitis 02/25/20 09:27 Consult to Physician [CONS] Routine Comment: Consulting Provider: OSVALDO DRAKE Physician Instructions: Reason For Exam: JUANIS/Hypertensive emergency 02/25/20 10:28 Consult to Physician [CONS] Routine Comment: Consulting Provider: WARD DÍAZ Physician Instructions: Reason For Exam: Ac. Pancreatitis 02/26/20 09:40 PICC Line Insertion [Consult to PICC Line RN] [CONS] Routine Reason For Exam: Initiate TPN Type Line:: PICC 02/26/20 09:41 Consult to Dietitian/Nutrition [CONS] Routine Physician Instructions: Reason For Exam: Reason for Consult: Write/Manage TPN/PPN 02/29/20 15:35 Consult to Dietitian/Nutrition [CONS] Routine Physician Instructions: Reason For Exam: Reason for Consult: Evaluate nutritional intake 02/29/20 17:04 Consult to Dietitian/Nutrition [CONS] Routine Physician Instructions: Reason For Exam: Reason for Consult: Write/Manage Tube Feeding 03/02/20 14:45 Consult to Dietitian/Nutrition [CONS] Routine Physician Instructions: Reason For Exam: Reason for Consult: Write/Manage Tube Feeding Consult to Dietitian/Nutrition [CONS] Routine Physician Instructions: Assess nutrtn needs, initiate, modify, manage TF Reason For Exam: Reason for Consult: Write/Manage Tube Feeding Reason for Consult: Write/Manage Tube Feeding 03/03/20 08:49 Consult to Physician [CONS] Urgent Comment: Consulting Provider: FAUSTINA HYDE Physician Instructions: Reason For Exam: vascath placement 03/10/20 12:23 Speech Therapy Evaluation and Treat [CONS] Routine Reason For Exam: s/p extubation 03/10/20 14:25 Physical Therapy Evaluation and Treat [CONS] Routine Comment: Reason For Exam: s/p extubation 03/10/20 15:36 Occupational Therapy Evaluate and Treat [CONS] Routine Comment: Reason For Exam: Debility 03/23/20 07:00 Consult to Physician [CONS] Urgent Comment: Consulting Provider: FAUSTINA HYDE Physician Instructions: Reason For Exam: perm cath placment 03/23/20 10:41 Consult to Physician [CONS] Routine Comment: Consulting Provider: LIEN CABALLERO Physician Instructions: Reason For Exam: renal biopsy.JUANIS/HD.Hematuria/proteinuria [facility] Reason for admission: Acute renal failure, acute hypoxic respiratory failure, anemia, hypertensio Condition: Stable Procedures: PermCath placement Hospital course: 39-year-old -[place]aur[place] female with known history of hypertension, history of kidney stones, hyperlipidemia and obesity presenting to the emergency room today complaining of abdominal pain radiating towards right flank and back. Pain is said to be 10/10 in severity. No known relieving or exacerbating factor. She has known history of kidney stones in the past. She has had some nausea but no vomiting and no diarrhea. She denies any hematuria or dysuria, she denies any fever or chills. Patient states she is currently on her menses. Upon arrival in the emergency room patient had elevated blood pressure with systolic in the 200s and diastolic in the 120s. She has had multiple rounds of IV labetalol withoutany significant improvement. Patient admits that she has been out of her medication for a couple of weeks. work-up in the emergency room reveals elevated lipase and CT of the abdomen and pelvis reveals acute pancreatitis. Patient also had hypertensive emergency on Cardene drip admitted to ICU, complicated by acute renal failure, acute respiratory failure requiring intubation, alcohol withdrawal on CIWA protocol, patient's renal function worsened requiring hemodialysis. Patient was ultimately weaned and extubated, evaluated by pulmonary critical GI surgery, nephrology and ID, Stabilized extubated transfer to medical floor,, discharge planning per case management, setting up outpatient HD placement. --Ac.hypoxic resp. failure /s/p extubated 03/15/2020 Extubated 03/15/2020, on BiPAP and Ventimask Patient is refusing BiPAP. On nasal cannula oxygen Patient was intubated initially 02/29/2020, extubated 03/10/2020 Again went into respiratory failure reintubated 03/11/2020, extubated 03/15/2020 Patient was off oxygen by the time I evaluated her and was breathing comfortably --Severe sepsis secondary to pneumonia and pancreatitis; s/p meropenem, completed total 14 days per ID ,follow cultures leukocytosis, tachycardia, tachypnea, fever, infiltrate on chest x-ray. Symptoms significantly improved -- Acute severe pancreatitis Initial non-contrasted CT showed no evidence of necrosis or pseudocyst or abscess formation. Repeat CT 03/05 with interval worsening of acute pancreatitis without clear evidence of necrosis with increased jessica-pancreatic fat stranding and disorganized fluid, Symptoms resolved --JUANIS/worsening renal function/on HD Initiated hemodialysis 03/03/2020. Hemodialysis per schedule, MWF If nephro recommend long-term HD Case management to set up outpatient HD --Severe metabolic encephalopathy/POA/resolved Patient is more alert and awake oriented x3 Back to her baseline -- Hypertensive emergency POA s/p Cardene drip, closely monitor Blood pressures is uncontrolled and changed amlodipine to Procardia, and increase the dose of hydralazine from 50-100 We will monitor and adjust as needed --Anemia; hemoglobin 9.4 No external evidence of bleeding Total 3 units of PRBC transfusion GI evaluated , patient is stable now --Chest pain/positive troponins;NSTEMI 2 Probably nonspecific , patient has acute kidney injury on dialysis continue current med management, follow serial cardiac enzymes, EF 60-65% on ECHO, cardiology evaluated and signed off conservative management -- Bilateral pleural effusions. Compressive atelectasis. Incentive spirometry --Alcohol withdrawal . Chronic alcohol use No new alcohol withdrawal symptoms Patient counseled and advised to quit alcohol intake Patient verbalized understanding --Severe metabolic acidosis; resolved On HD per nephrology --Severe protein calorie malnutrition and hypoalbuminemia Nutrition supplements, nutrition consult and supportive care --Medical noncompliance counseled the importance of adhering to the treatment plan Verbalized understanding -- DVT prophylaxis Patient placed on subcutaneous heparin. --Obesity; BMI 37.9 patient needs weight reduction when medically stable. -- Full code status Follow GI and pulmonary evaluation and recommendations We will closely monitor the patient and adjust the management as needed Patient is stable to be transferred out of ICU to telemetry ID planning per case management Possible discharge in 1 to 2 days if stable 03/15; patient is more alert and awake, remains intubated on vent, wean and extubate as tolerated DC planning per case management 03/16; patient received hemodialysis today stable to be transferred out of ICU to telemetry, DC planning per case management 03/17; DC planning per case management, outpatient HD placement if nephrology recommend long-term hemodialysis ; disposition per nephrology , pending decision for long-term hemodialysis .possible discharge in 1 to 2 days if stable 03/19; outpatient HD scheduling per case management 03/20: Stable, awaiting HD. BP still elevated will adjust BP meds INCREASING Hydralazine to 50mg TID 03/21; patient stable awaiting outpatient hemodialysis arrangement. BP is fairly controlled. 03/22/2020; patient will need outpatient hemodialysis arrangement. Patient will have PermCath tomorrow. BP is uncontrolled and blood pressures medications are adjusted. And will continue to monitor. 03/23/2020; Patient will have permacath today. BP is well controlled after blood pressure medications were adjusted yesterday. Discussed with case management and patient is uninsured. Patient will be discharged once she has PermCath placed and will follow in the emergency department for her dialysis needs. 03/24/2020; patient had PermCath earlier this morning. Blood pressure is well controlled. Patient does not have insurance and discussed with case management and recommended patient need to come to emergency department for her dialysis needs. Discussed with director of curriculum and director of curriculum said patient can come to the emergency department whenever she has symptoms for dialysis until outpatient dialysis is arranged. Patient was hemodynamically stable. Her medications are sent electronically to her pharmacy. Patient's questions and concerns were addressed at the bedside. Disposition: DC-01 TO HOME OR SELFCARE Time spent for discharge: 35 minutes - Discharge Diagnoses (1) Acute pancreatitis Status: Acute (2) Hypertensive urgency Status: Acute (3) Noncompliance with diet and medication regimen Status: Acute (4) Renal failure Status: Acute Core Measure Documentation - Palliative Care Palliative Care/ Comfort Measures: Not Applicable - Core Measures Any of the following diagnoses?: none Exam - Physical Exam Narrative exam: Not in cardiopulmonary distress. The patient is obese. Vital signs as documented. Head exam is unremarkable. No scleral icterus . Neck is without jugular venous distension, thyromegaly, or carotid bruits. Lungs are clear to auscultation. Cardiac exam reveals regular rate and Rhythm. Abdominal exam reveals normal bowel sounds, nontender, no organomegaly. Extremities are nonedematous and both femoral and pedal pulses are normal. PODIATRIC ASSISTANT: Alert and oriented 3. No focal weakness. - Constitutional Vitals: Temp Pulse Resp BP Pulse Ox 98.6 F 110 H 20 151/94 98 03/24/20 04:31 03/24/20 11:17 03/24/20 04:31 03/24/20 11:17 03/24/20 11:23 Plan Activity: no restrictions Diet: low salt, renal Additional Instructions: Patient need to come to the emergency department for dialysis. Patient does not have insurance and outpatient dialysis could not be arranged at this time. Plan of Treatment: Patient advised to visit nearest emergency department for dialysis needs. No [facility] HD chair available. Follow up with: MIKAL NICHOLSDULAC MD EBONY [Primary Care Provider] - 3-5 Days GUSTAVO FRANKS MD [Staff Physician] - 14 Days Prescriptions: QUEtiapine [SEROquel] 100 mg PO QHS #15 tablet hydrALAZINE [Apresoline TAB] 100 mg PO Q8HR #90 tab Aspirin 325 mg PO QDAY #30 tablet Metoprolol [Lopressor TAB] 25 mg PO BID #60 tablet NIFEdipine XL [Procardia Xl] 60 mg PO Q12HR #60 tablet
--- NOTE | 2020-03-24 16:11 | Vascular Lab Report ---
DOPPLER ULTRASOUND UPPER EXTREMITY VENOUS MAPPING, BILATERAL INDICATION / CLINICAL INFORMATION: esrd vein mapping TECHNIQUE: Grayscale, color and spectral Doppler imaging of the venous system of the right and left upper extrem ities was performed. COMPARISON: None available. FINDINGS: RIGHT UPPER EXTREMITY: Brachial Artery (Diameter, in cm): Not measured Radial Artery (Diameter, in cm): 0.3 Basilic Vein (Diameter, in cm): - Upper Arm: 0.5 - Mid Arm: 0.5 - Lower Arm: 0.4 - Antecubital: 0.4 - Upper Forearm: 0.5 - Mid Forearm: 0.4 - Distal Forearm: 0.3 Cephalic Vein (Diameter, in cm): - Upper Arm: 0.3 - Mid Arm: 0.3 - Lower Arm: 0.4 - Antecubital: 0.5 - Upper Forearm: 0.3 - Mid Forearm: 0.3 - Distal Forearm: 0.3 LEFT UPPER EXTREMITY: Brachial Artery (Diameter, in cm): Not measured. Radial Artery (Diameter, in cm): 0.3 Basilic Vein (Diameter, in cm): - Upper Arm: 0.4 - Mid Arm: 0.4 - Lower Arm: 0.4 - Antecubital: 0.3 - Upper Forearm: 0.2 - Mid Forearm: 0.3 - Distal Forearm: 0.1 Cephalic Vein (Diameter, in cm): - Upper Arm: 0.5 - Mid Arm: 0.5 - Lower Arm: 0.3 - Antecubital: 0.5 - Upper Forearm: 0.3 - Mid Forearm: 0.2 - Distal Forearm: 0.2 Additional Findings: None. IMPRESSION: 1. Upper extremity venous mapping as above. Signer Name: Nic Olvera MD Signed: 03/24/2020 4:06 PM Workstation Name: [id number]
[2020-03-24 16:48] VITALS: BP 160/102
[2020-03-24] MEDS: MORPHINE 2 MG/1 ML INJ IV PRN (16:53)
--- NOTE | 2020-03-24 19:06 | Progress Note ---
Assessment and Plan Assessment * JUANIS on HD since 03/03 --On admission, cr 1.7. Serologies: ANCA, C3, C4 - negative; ZINA positive, UA with hematuria and proteinuria. Follow up 24hr crcl noted, 115ml of UPO, will need perm cath placment and HD unit placement * Acute hypoxic respiratory failure, status post extubation, now on room air * Chest pain --Elevated troponin * Metabolic acidosis, controlled with dialysis * Acute severe pancreatitis * Fever * Accelerated hypertension - resolved * Anemia Plan: * Continue HD MWF schedule for now- UF as tolerated * Consulted IR for renal biopsy now that she is more clinically stable * Monitor SCr trend and UOP for evidence of recovery - Uncertain re: renal prognosis. Patient reports 9 year hx of hypertension, untreated at times. She reports that she was not under the consistent care of a healthcare provider. * Cardiology recommendations reviewed - conservative cardiac management for now * GI recommendations reviewed * Continue anti-hypertensive medications * Hold ACEi for now * Hold epogen for now given acute illness * Dose medications for renal function * Outpatient hemodialysis placement Subjective Date of service: 03/24/20 Principal diagnosis: HTNsive urgency; Morbid obesity; Ac. pancreatitis; Abdominal pain Interval history: Patient was seen for her renal issues Nursing, interdisciplinary and consult notes were reviewed Vitals, input and output, medications and labs were reviewed Imaging was reviewed Notes low urine output permacath placed without any complications Objective - Exam Narrative Exam: Vitals: Reviewed General: No acute distress HEENT: Oral mucosa moist, no pharyngeal erythema, no evidence of epistaxis Neck: Supple, no evidence of any JVD, trachea midline, no thyromegaly Chest: Clear to auscultation, no crackles, rales or wheezes Heart: Regular rhythm, tachycardic, S1-S2 heard, no S3-S4, no pericardial rub Abdomen: Soft, nontender, no renal bruit, no suprapubic masses no CVA tenderness Extremity: No peripheral cyanosis, edema and dry skin Neurological: Alert, awake, no asterixis Dermatology; no skin rashes Back: Nontender thoracolumbar spine, no CVA tenderness Psych: No agitation and aggression Musculoskeletal: No joint effusion noted - Vital Signs Vital signs: Vital Signs - 12hr 03/24/20 03/24/20 03/24/20 11:17 11:23 15:59 Temperature 98.2 F Pulse Rate 110 H 96 H Respiratory 20 Rate Blood Pressure 151/94 160/102 O2 Sat by Pulse 98 98 Oximetry - Lab 03/19/20 05:55 03/24/20 04:18 Most recent lab results ABG pH 7.420 pH Units (7.350-7.450) 03/15/20 13:20 ABG pCO2 45.5 mm Hg 03/15/20 13:20 ABG pO2 85.8 mm Hg (80.0-90.0) 03/15/20 13:20 ABG HCO3 28.9 mmol/L (20.0-26.0) H 03/15/20 13:20 ABG O2 Saturation 97.1 % (95.0-99.0) 03/15/20 13:20 Calcium 9.9 mg/dL (8.4-10.2) 03/24/20 04:18 Phosphorus 6.10 mg/dL (2.5-4.5) H 03/01/20 04:37 Magnesium 2.00 mg/dL (1.7-2.3) 03/07/20 05:03 Urine Creatinine 278.4 mg/dL (0.1-20.0) H 03/18/20 14:00 Urine Total Protein 150 mg/dL (5-11.8) H 02/25/20 22:55 Medications & Allergies - Medications Allergies/Adverse Reactions: Allergies No Known Allergies Allergy (Unverified 09/05/19 10:15) Home Medications: Home Medications Medication Instructions Recorded Confirmed Last Taken Type Aspirin 325 mg PO QDAY #30 tablet 03/24/20 Unknown Rx Metoprolol [Lopressor TAB] 25 mg PO BID #60 tablet 03/24/20 Unknown Rx NIFEdipine XL [Procardia Xl] 60 mg PO Q12HR #60 tablet 03/24/20 Unknown Rx QUEtiapine [SEROquel] 100 mg PO QHS #15 tablet 03/24/20 Unknown Rx hydrALAZINE [Apresoline TAB] 100 mg PO Q8HR #90 tab 03/24/20 Unknown Rx Active Medications: Generic Name Dose Route Start Last Admin Trade Name Freq PRN Reason Stop Dose Admin Acetaminophen 650 mg 02/26/20 16:23 03/14/20 22:03 Tylenol PO 650 mg Q4H PRN Administration Pain, Mild (1-3)/ Temp >100. Albuterol 2.5 mg 02/27/20 17:55 Proventil IH Q4HRT PRN Shortness Of Breath Aspirin 325 mg 03/15/20 11:00 03/24/20 11:17 Aspirin PO 325 mg QDAY INDU Administration Dextrose 50 ml 02/29/20 08:00 03/01/20 00:20 D50w (25gm) Syringe IV 10 ml Q30MIN PRN Administration HYPOGLYCEMIA Protocol Famotidine 20 mg 03/23/20 10:00 03/24/20 11:17 Pepcid PO 20 mg QDAY INDU Administration Heparin Sodium (Porcine) 5,000 unit 03/11/20 14:00 03/24/20 17:02 Heparin SUB-Q Not Given Q8HR INDU Hydralazine HCl 100 mg 03/22/20 08:30 03/24/20 16:53 Apresoline PO 100 mg Q8HR INDU Administration Hydrophilic Ointment 1 applic 03/11/20 06:01 Vaseline Lip Therapy TP Q2HR PRN Dry Lips Sodium Chloride 100 mls @ 999 mls/hr 03/08/20 17:05 Nacl 0.9% IV NIKOLAY PRN Hypotension Labetalol HCl 10 mg 02/28/20 09:00 03/11/20 03:04 Labetalol IV 10 mg Q4H PRN Administration Hypertension Metoprolol Tartrate 25 mg 02/28/20 10:00 03/24/20 11:17 Metoprolol PO 25 mg BID INDU Administration Morphine Sulfate 2 mg 03/11/20 05:13 03/24/20 16:53 Morphine IV 2 mg Q4H PRN Administration Pain, Moderate (4-6) Multi-Ingred Cream/Lotion/Oil/Oint 1 applic 03/11/20 06:01 Artificial Tears Ophth Oint OU Q4HR PRN Dry Eye(s) Nifedipine 60 mg 03/22/20 10:00 03/24/20 11:17 Procardia Xl PO 60 mg Q12HR INDU Administration Nitroglycerin 0.4 mg 03/11/20 05:14 Nitrostat SL .Q5MIN PRN Chest Pain Ondansetron HCl 4 mg 02/24/20 06:45 02/25/20 23:33 Zofran IV 4 mg Q8H PRN Administration Nausea And Vomiting Quetiapine Fumarate 100 mg 03/16/20 22:00 03/23/20 21:08 Seroquel PO 100 mg QHS INDU Administration Sodium Chloride 10 ml 02/24/20 10:00 03/23/20 21:14 Sodium Chloride Flush Syringe 10 Ml IV 10 ml BID INDU Administration Sodium Chloride 10 ml 02/24/20 06:45 03/10/20 09:06 Sodium Chloride Flush Syringe 10 Ml IV 10 ml PRN PRN Administration LINE FLUSH
== END 2020-03-24 17:10 | disposition home or self-care (01) | DRG 870 ==
LOC: SUATTDRO 02:04 → ED 02:04 → 3A 05:56 → CC1 07:06 → OBSVTOIN 11:38 → 4A 03-16 16:44
PROVIDERS: ADMIT Internal Medicine Geriatric Medicine; ATTEND Internal Medicine
PROC: 4A033R1 Measurement of Arterial Saturation, Peripheral, Percutaneous Approach (ICD-10-PCS; 2020-02-28)
PROC: 5A1955Z Respiratory Ventilation, Greater than 96 Consecutive Hours (ICD-10-PCS; principal; 2020-02-29)
PROC: 0BH17EZ Insertion of Endotracheal Airway into Trachea, Via Natural or Artificial Opening (ICD-10-PCS; 2020-02-29)
PROC: 30233N1 Transfusion of Nonautologous Red Blood Cells into Peripheral Vein, Percutaneous Approach (ICD-10-PCS; 2020-03-01)
PROC: 02HV33Z Insertion of Infusion Device into Superior Vena Cava, Percutaneous Approach (ICD-10-PCS; 2020-03-03)
PROC: B548ZZA Ultrasonography of Superior Vena Cava, Guidance (ICD-10-PCS; 2020-03-03)
PROC: B5181ZA Fluoroscopy of Superior Vena Cava using Low Osmolar Contrast, Guidance (ICD-10-PCS; 2020-03-03)
PROC: 5A1D70Z Performance of Urinary Filtration, Intermittent, Less than 6 Hours Per Day (ICD-10-PCS; 2020-03-18)
PROC: 5A1D70Z Performance of Urinary Filtration, Intermittent, Less than 6 Hours Per Day (ICD-10-PCS; 2020-03-20)
PROC: 0JH63XZ Insertion of Tunneled Vascular Access Device into Chest Subcutaneous Tissue and Fascia, Percutaneous Approach (ICD-10-PCS; 2020-03-24)
PROC: 02HV33Z Insertion of Infusion Device into Superior Vena Cava, Percutaneous Approach (ICD-10-PCS; 2020-03-24)
PROC: B5181ZA Fluoroscopy of Superior Vena Cava using Low Osmolar Contrast, Guidance (ICD-10-PCS; 2020-03-24)
DX: A41.9 Sepsis, unspecified organism (principal); K85.90 Acute pancreatitis without necrosis or infection, unspecified; N17.0 Acute kidney failure with tubular necrosis; G93.41 Metabolic encephalopathy; J96.01 Acute respiratory failure with hypoxia; G92 Toxic encephalopathy; J18.9 Pneumonia, unspecified organism; I21.A1 Myocardial infarction type 2; N18.6 End stage renal disease; E43 Unspecified severe protein-calorie malnutrition; E87.2 Acidosis; F10.239 Alcohol dependence with withdrawal, unspecified; I12.0 Hypertensive chronic kidney disease with stage 5 chronic kidney disease or end stage renal disease; I16.1 Hypertensive emergency; Z20.828 Contact with and (suspected) exposure to other viral communicable diseases; E78.5 Hyperlipidemia, unspecified; I25.10 Atherosclerotic heart disease of native coronary artery without angina pectoris; E66.01 Morbid (severe) obesity due to excess calories; Z68.38 Body mass index [BMI] 38.0-38.9, adult; D47.3 Essential (hemorrhagic) thrombocythemia; G47.30 Sleep apnea, unspecified; D64.9 Anemia, unspecified; Y90.9 Presence of alcohol in blood, level not specified; E87.5 Hyperkalemia; Z99.2 Dependence on renal dialysis; Z87.891 Personal history of nicotine dependence; Z91.11 Patient's noncompliance with dietary regimen; Z91.14 Patient's other noncompliance with medication regimen; Z79.899 Other long term (current) drug therapy
CPT/HCPCS: 31500; 36415; 36430; 36558; 36600; 71045; 74018; 74176; 76700; 76937; 77001; 80048; 80053; 80061; 80074; 80076; 81001; 82140; 82570; 82803; 82805; 82962; 83690; 83735; 83970; 84100; 84156; 84165; 84478; 84484; 84703; 85007; 85014; 85018; 85025; 85027; 85049; 85610; 85730; 86021; 86038; 86140; 86160; 86225; 86850; 86900; 86901; 86920; 87040; 87070; 87086; 87205; 93005; 93306; 93970; 94002; 94003; 94640; 94644; 94660; 94760; 96374; 96375; G0378; C1750; C9113; J0330; J0690; J0885; J1170; J1630; J1644; J1885; J1940; J2060; J2185; J2250; J2270; J2405; J2543; J2704; J3010; J3486; J3490; J7030; J7040; J7050; J7070; P9016; U0003-CS

== ENCOUNTER 2020-03-27 08:01 | Emergency (ER) | payer MEDICAID, SELFPAY ==
[2020-03-27 09:16] LABS: Hematocrit 30.1 % (30.3-42.9); Hemoglobin 10.4 gm/dl (10.1-14.3); Mean Corpuscular HGB Conc 35 % (30-34); Mean Corpuscular Volume 80 fl (79-97); Platelet Count 376 K/mm3 (140-440); Red Blood Count 3.78 M/mm3 (3.65-5.03); Red Cell Distribution Width 25.1 % (13.2-15.2)
[2020-03-27 09:33] LABS: Calcium 10.3 mg/dL (8.4-10.2)
--- NOTE | 2020-03-27 09:40 | Emergency Department Report ---
ED General Adult HPI - General Chief complaint: Medical Clearance Stated complaint: NEEDS DIALYSIS Time Seen by Provider: 03/27/20 08:31 Source: patient Mode of arrival: Ambulatory Limitations: No Limitations - History of Present Illness Initial comments: Patient is a 39-year-old F [place] female who was just released from the hospital approximately 4 days ago after prolonged hospital stay who is here for dialysis. Patient does not have a dialysis center set up as of yet. Patient has a history of hypertension and was admitted to the hospital with severe pancreatitis. Patient was also septic with pneumonia and went into acute renal failure. Patient was started on dialysis. Patient also at one point was on a Cardene drip for hypertensive emergency. Patient was intubated twice during the stay. Patient states she has seizures been released from the hospital her abdominal pain is improved and she is no longer having any respiratory distress. Patient states she was told to come to the emergency department to get dialysis. Patient is denying any abdominal pain chest pain or shortness of breath fevers chills cough cold or congestion at this time. Severity scale (0 -10): 0 - Related Data Previous Rx's Medication Instructions Recorded Last Taken Type Aspirin 325 mg PO QDAY #30 tablet 03/24/20 03/27/20 Rx Metoprolol [Lopressor TAB] 25 mg PO BID #60 tablet 03/24/20 03/27/20 Rx NIFEdipine XL [Procardia Xl] 60 mg PO Q12HR #60 tablet 03/24/20 03/27/20 Rx QUEtiapine [SEROquel] 100 mg PO QHS #15 tablet 03/24/20 03/27/20 Rx hydrALAZINE [Apresoline TAB] 100 mg PO Q8HR #90 tab 03/24/20 03/27/20 Rx Furosemide [Lasix TAB] 40 mg PO QDAY #30 tablet 03/27/20 Unknown Rx Allergies Allergy/AdvReac Type Severity Reaction Status Date / Time No Known Allergies Allergy Unverified 09/05/19 10:15 ED Review of Systems ROS: Stated complaint: NEEDS DIALYSIS Other details as noted in HPI Comment: All other systems reviewed and negative ED Past Medical Hx - Past Medical History Previous Medical History?: Yes Hx Hypertension: Yes Hx Heart Attack/AMI: Yes Additional medical history: Chronic renal insufficiency - Surgical History Past Surgical History?: Yes Additional Surgical History: c section - Social History Smoking Status: Never Smoker Substance Use Type: None - Medications Home Medications: Home Medications Medication Instructions Recorded Confirmed Last Taken Type Aspirin 325 mg PO QDAY #30 tablet 03/24/20 03/27/20 03/27/20 Rx Metoprolol [Lopressor TAB] 25 mg PO BID #60 tablet 03/24/20 03/27/20 03/27/20 Rx NIFEdipine XL [Procardia Xl] 60 mg PO Q12HR #60 tablet 03/24/20 03/27/20 03/27/20 Rx QUEtiapine [SEROquel] 100 mg PO QHS #15 tablet 03/24/20 03/27/20 03/27/20 Rx hydrALAZINE [Apresoline TAB] 100 mg PO Q8HR #90 tab 03/24/20 03/27/20 03/27/20 Rx Furosemide [Lasix TAB] 40 mg PO QDAY #30 tablet 03/27/20 Unknown Rx ED Physical Exam - General Limitations: No Limitations General appearance: alert, in no apparent distress - Head Head exam: Present: atraumatic, normocephalic - Eye Eye exam: Present: normal appearance - ENT ENT exam: Present: mucous membranes moist - Neck Neck exam: Present: normal inspection - Respiratory Respiratory exam: Present: normal lung sounds bilaterally. Absent: respiratory distress, wheezes, rales, rhonchi - Cardiovascular Cardiovascular Exam: Present: regular rate, normal rhythm, normal heart sounds. Absent: systolic murmur, diastolic murmur, rubs, gallop - GI/Abdominal GI/Abdominal exam: Present: soft, normal bowel sounds. Absent: distended, tenderness, guarding, rebound - Extremities Exam Extremities exam: Present: normal inspection - Back Exam Back exam: Present: normal inspection - Neurological Exam Neurological exam: Present: alert, oriented X3 - Psychiatric Psychiatric exam: Present: normal affect, normal mood - Skin Skin exam: Present: warm, dry, intact, normal color. Absent: rash ED Course Vital Signs 03/27/20 08:39 Pulse Rate 98 H Respiratory 18 Rate Blood Pressure 150/98 [Left] O2 Sat by Pulse 98 Oximetry - Reevaluation(s) Reevaluation #1: 03/27/20 09:40 Patient with a normal potassium. Patient will have nephrology consulted at this time. Reevaluation #2: 03/27/20 10:[address] Veliz with our nephrology team and she stated that since the patie nt does not have insurance and is new to dialysis a outpatient dialysis center was unable to be set up. Unfortunately the patient would have to wait for symptoms to be emergently dialyzed from the emergency department. Likely the patient is feeling well and is not fluid overloaded potassium is within normal limits. Patient appears stable for discharge. Dr. Faria stated that we can place the patient on Lasix to keep her from being fluid overloaded since she does still make urine. Patient has been instructed to return if she has significant swelling nausea vomiting shortness of breath or extreme fatigue. Patient is stable for discharge. ED Medical Decision Making - Lab Data Result diagrams: 03/27/20 08:50 03/27/20 08:50 Lab Results 03/27/20 03/27/20 Range/Units 08:50 08:50 WBC 14.5 H (4.5-11.0) K/mm3 RBC 3.78 (3.65-5.03) M/mm3 Hgb 10.4 (10.1-14.3) gm/dl Hct 30.1 L (30.3-42.9) % MCV 80 (79-97) fl MCH 28 (28-32) pg MCHC 35 H (30-34) % RDW 25.1 H (13.2-15.2) % Plt Count 376 (140-440) K/mm3 Sodium 136 L (137-145) mmol/L Potassium 4.1 (3.6-5.0) mmol/L Chloride 96.6 L (98-107) mmol/L Carbon Dioxide 23 (22-30) mmol/L Anion Gap 21 mmol/L BUN 38 H (7-17) mg/dL Creatinine 3.6 H (0.6-1.2) mg/dL Estimated GFR 17 ml/min BUN/Creatinine Ratio 11 % Glucose 112 H (65-100) mg/dL Calcium 10.3 H (8.4-10.2) mg/dL Critical care attestation.: If time is entered above; I have spent that time in minutes in the direct care of this critically ill patient, excluding procedure time. ED Disposition Clinical Impression: ESRD (end stage renal disease) Disposition: - TO HOME OR SELFCARE Is pt being admited?: No Does the pt Need Aspirin: No Condition: Stable Prescriptions: Furosemide [Lasix TAB] 40 mg PO QDAY #30 tablet Referrals: PRIMARY CARE, [Primary Care Provider] - 3-5 Days GUSTAVO FRANKS MD [Staff Physician] - 3-5 Days SIMPSON SIMONETRUTH OR CONSEQUENCES MD EBONY [Referring] - 3-5 Days Time of Disposition: 10:08
[2020-03-27 10:21] VITALS: BP 133/90
[2020-03-27 11:02] LABS: Anisocytosis 2+; Band Neutrophils # (Manual) 0.1 K/mm3; Total Cells Counted 100
[2020-03-27 11:03] LABS: Platelet Estimate Consistent w Auto
== END 2020-03-27 10:19 | disposition home or self-care (01) ==
LOC: ED 08:01
DX: I12.0 Hypertensive chronic kidney disease with stage 5 chronic kidney disease or end stage renal disease (principal); N18.6 End stage renal disease; Z99.2 Dependence on renal dialysis; I25.2 Old myocardial infarction; N18.9 Chronic kidney disease, unspecified; Z98.890 Other specified postprocedural states
CPT/HCPCS: 36415; 80048; 85007; 85025; 99283

== ENCOUNTER 2020-03-30 09:21 | Observation (INO) | payer SELFPAY ==
[2020-03-30 10:07] LABS: Calcium 10.7 mg/dL (8.4-10.2); Hematocrit 32.8 % (30.3-42.9); Hemoglobin 10.5 gm/dl (10.1-14.3); Mean Corpuscular HGB Conc 32 % (30-34); Mean Corpuscular Volume 81 fl (79-97); Platelet Count 395 K/mm3 (140-440); Red Blood Count 4.07 M/mm3 (3.65-5.03)
[2020-03-30 10:08] LABS: Red Cell Distribution Width 25.2 % (13.2-15.2)
--- NOTE | 2020-03-30 10:52 | Emergency Department Report ---
HPI - General Chief Complaint: Medical Clearance Time Seen by Provider: 03/30/20 10:43 - HPI HPI: Room 4 The patient is a 39-year-old female present with a chief complaint of chronic kidney disease. The patient states she is waiting for her Medicaid to "cleared up" to establish regular hemodialysis. Patient states in the meantime she comes in emergency department to see if she needs dialysis. Patient was last dialyzed 7 days ago. Patient states she came to this emergency department 3 days ago was assessed and told to follow-up today to have her labs redrawn. Patient denies complaints stating she feels okay. 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) Additional medical history: Chronic renal insufficiency - Surgical History Past Surgical History?: Yes Additional Surgical History: c section, right chest permacath - Family History Family history: no significant - Social History Smoking Status: Never Smoker Substance Use Type: None (Denies illicit drug use) - Medications Home Medications: Home Medications Medication Instructions Recorded Confirmed Last Taken Type Aspirin 325 mg PO QDAY #30 tablet 03/24/20 03/27/20 03/27/20 Rx Metoprolol [Lopressor TAB] 25 mg PO BID #60 tablet 03/24/20 03/27/20 03/27/20 Rx NIFEdipine XL [Procardia Xl] 60 mg PO Q12HR #60 tablet 03/24/20 03/27/20 03/27/20 Rx QUEtiapine [SEROquel] 100 mg PO QHS #15 tablet 03/24/20 03/27/20 03/27/20 Rx hydrALAZINE [Apresoline TAB] 100 mg PO Q8HR #90 tab 03/24/20 03/27/20 03/27/20 Rx Furosemide [Lasix TAB] 40 mg PO QDAY #30 tablet 03/27/20 Unknown Rx ED Review of Systems ROS: Stated complaint: NEED DIALYSIS Other details as noted in HPI Constitutional: no symptoms reported Respiratory: no symptoms reported Endocrine: no symptoms reported Physical Exam - Physical Exam Vital Signs: Vital Signs 03/30/20 09:26 Temperature 98.4 F Pulse Rate 117 H Respiratory 20 Rate Blood Pressure 210/135 O2 Sat by Pulse 98 Oximetry Physical Exam: GENERAL: The patient is well-developed well-nourished female lying on stretcher not appearing to be in acute distress. [] HEENT: Normocephalic. Atraumatic. Extraocular motions are intact. Patient has moist mucous membranes. NECK: Supple. Trachea midline CHEST/LUNGS: Clear to auscultation. There is no respiratory distress noted. HEART/CARDIOVASCULAR: Regular. There is tachycardia. There is no gallop rub or murmur. ABDOMEN: Abdomen is soft, nontender. Patient has normal bowel sounds. There is no abdominal distention. SKIN: There is no rash. There is no edema. There is no diaphoresis. NEURO: The patient is awake, alert, and oriented. The patient is cooperative. The patient has normal speech MUSCULOSKELETAL:There is no evidence of acute injury. ED Course Vital Signs 03/30/20 09:26 Temperature 98.4 F Pulse Rate 117 H Respiratory 20 Rate Blood Pressure 210/135 O2 Sat by Pulse 98 Oximetry - Consultations Consultation #1: 03/30/20 11:30 Nephrology paged 03/30/20 11:45 Case discussed with Brea- will discuss with Dr. Moore and call back 03/30/20 12:[address] Moore like the patient admitted to the hospital for accelerated hypertension and 24-hour urine collection to reevaluate need for hemodialysis ED Medical Decision Making - Lab Data Result diagrams: 03/30/20 09:28 03/30/20 09:28 Laboratory Tests 03/30/20 03/30/20 09:28 09:28 WBC 11.6 H RBC 4.07 Hgb 10.5 Hct 32.8 MCV 81 MCH 26 L MCHC 32 RDW 25.2 H Plt Count 395 Sodium 137 Potassium 3.9 Chloride 99.6 Carbon Dioxide 24 Anion Gap 17 BUN 42 H Creatinine 2.8 H Estimated GFR 23 BUN/Creatinine Ratio 15 Glucose 150 H Calcium 10.7 H - Differential Diagnosis ESRD, hyperkalemia Critical care attestation.: If time is entered above; I have spent that time in minutes in the direct care of this critically ill patient, excluding procedure time. ED Disposition Clinical Impression: ESRD (end stage renal disease), Uncontrolled hypertension Disposition: OP ADMIT IP TO THIS HOSP Is pt being admited?: Yes Does the pt Need Aspirin: No Condition: Fair Instructions: Hypertension (ED) Time of Disposition: 12:19 (Hospitalist paged)
[2020-03-30] MEDS ORDERED: cloNIDine 0.2 MG TAB PO ONE (11:44)
[2020-03-30 12:20] VITALS: BP 221/129
[2020-03-30] MEDS ORDERED: ACETAMINOPHEN 325 MG TAB PO PRN (13:37)
[2020-03-30] MEDS ORDERED: ONDANSETRON 4 MG/2 ML INJ IV PRN (13:37)
--- NOTE | 2020-03-30 13:45 | History and Physical Report ---
History of Present Illness Date of examination: 03/30/20 Chief complaint: Hypertensive emergency History of present illness: Bettina Mclean is a 39-year-old female with history of hypertension, chronic kidney disease recently started on hemodialysis and history of [place], presents to the ED with complaints of need for hemodialysis. She apparently comes to ED for hemodialysis as her Medicaid is pending and she does not have outpatient arrangement for hemodialysis at this time. However she was noted to have severely elevated blood pressure of 221/129 and she is being admitted for further management of her hypertensive emergency. Patient otherwise offers no specific complaints. She denies any headache, dizziness, chest pain or shortness of breath. She also states that she has been compliant with medications for her hypertension Past History Past Medical History: heart failure, hypertension, renal failure Past Surgical History: Social history: no significant social history Family history: no significant family history Medications and Allergies Allergies Allergy/AdvReac Type Severity Reaction Status Date / Time No Known Allergies Allergy Unverified 09/05/19 10:15 Home Medications Medication Instructions Recorded Confirmed Last Taken Type Aspirin 325 mg PO QDAY #30 tablet 03/24/20 03/27/20 03/27/20 Rx Metoprolol [Lopressor TAB] 25 mg PO BID #60 tablet 03/24/20 03/27/20 03/27/20 Rx NIFEdipine XL [Procardia Xl] 60 mg PO Q12HR #60 tablet 03/24/20 03/27/2003/06 Rx QUEtiapine [SEROquel] 100 mg PO QHS #15 tablet 03/24/20 03/27/20 03/27/20 Rx hydrALAZINE [Apresoline TAB] 100 mg PO Q8HR #90 tab 03/24/20 03/27/20 03/27/20 Rx Furosemide [Lasix TAB] 40 mg PO QDAY #30 tablet 03/27/20 Unknown Rx Review of Systems Constitutional: no weight loss, no fever, no chills, no fatigue, no weakness Ears, nose, mouth and throat: no sore throat, no headache, no vertigo Cardiovascular: no chest pain, no palpitations, no syncope Gastrointestinal: no abdominal pain, no nausea, no vomiting, no melena Rectal: no pain Musculoskeletal: no neck pain, no low back pain Integumentary: no rash Neurological: no weakness, no parathesias, no seizures, no syncope Psychiatric: no anxiety Exam - Constitutional Vitals: Temp Pulse Resp BP Pulse Ox 98.4 F 93 H 20 221/129 96 03/30/20 09:26 03/30/20 12:13 03/30/20 09:26 03/30/20 12:13 03/30/20 12:01 General appearance: Present: no acute distress, well-nourished - EENT Eyes: Present: PERRL, EOM intact ENT: hearing intact, clear oral mucosa - Neck Neck: Present: supple, normal ROM. Absent: masses or JVD - Respiratory Respiratory effort: normal Respiratory: bilateral: CTA - Cardiovascular Rhythm: regular Heart Sounds: Present: S1 & S2 - Extremities Extremities: No edema - Abdominal General gastrointestinal: Present: soft, non-tender - Rectal Rectal Exam: deferred - Integumentary Integumentary: Present: clear - Musculoskeletal Musculoskeletal: strength equal bilaterally - Psychiatric Psychiatric: appropriate mood/affect - Neurologic Neurologic: moves all extremities Results - Labs CBC & Chem 7: 03/30/20 09:28 03/30/20 09:28 Labs: Abnormal lab results 03/30/20 03/30/20 Range/Units 09:28 09:28 WBC 11.6 H (4.5-11.0) K/mm3 MCH 26 L (28-32) pg RDW 25.2 H (13.2-15.2) % BUN 42 H (7-17) mg/dL Creatinine 2.8 H (0.6-1.2) mg/dL Glucose 150 H (65-100) mg/dL Calcium 10.7 H (8.4-10.2) mg/dL Assessment and Plan - Patient Problems (1) Hypertensive emergency Current Visit: Yes Status: Acute Plan to address problem: Blood pressure initially was 221/129 This is slightly improved to 189/119 at the time of my evaluation Will admit on observation status We will continue home medications However patient is saying that she will sign out AGAINST MEDICAL ADVICE States she is just waiting for her to have hemodialysis and then she will go because she has her kids at the daycare and no one can pick them up She states that she is compliant with her medications (2) ESRD (end stage renal disease) Current Visit: Yes Status: Chronic Plan to address problem: Nephrology consulted Patient will undergo hemodialysis
[2020-03-30] MEDS ORDERED: hydrALAZINE 100 MG TAB PO SCH (14:00)
[2020-03-30] MEDS ORDERED: METOPROLOL TARTRATE 25 MG TAB PO SCH (22:00)
[2020-03-30] MEDS ORDERED: NIFEdipine XL 60 MG TAB PO SCH (22:00)
[2020-03-30] MEDS ORDERED: QUEtiapine 25 MG TAB PO SCH (22:00)
[2020-03-30] MEDS ORDERED: HEPARIN 5,000 UNIT/1 ML VIAL SUB-Q SCH (22:00)
[2020-03-31] MEDS ORDERED: ASPIRIN 325 MG TAB PO SCH (10:00)
[2020-03-31] MEDS ORDERED: FUROSEMIDE 40 MG TAB PO SCH (10:00)
--- NOTE | 2020-03-31 21:11 | Event Note ---
my nurse practitioner discussed with emergency room physician yesterday around 11:47 AM and advised that patient should be admitted for evaluation and management we will see her for follow-up there is no emergent indication for renal replacement therapy, her electrolytes are normal, BUN/creatinine not severely elevated Recommendations can be made after the patient was evaluated
== END 2020-03-30 13:55 | disposition left against medical advice (07) ==
LOC: ED 09:21 → 4A 13:37
PROVIDERS: ADMIT Internal Medicine; ATTEND Internal Medicine
DX: I16.0 Hypertensive urgency (principal); I13.2 Hypertensive heart and chronic kidney disease with heart failure and with stage 5 chronic kidney disease, or end stage renal disease; I50.9 Heart failure, unspecified; N18.6 End stage renal disease; Z98.891 History of uterine scar from previous surgery; Z79.82 Long term (current) use of aspirin
CPT/HCPCS: 36415; 80048; 85027; 99284; G0378

== ENCOUNTER 2020-04-03 09:14 | Emergency (ER) | payer SELFPAY ==
[2020-04-03] MEDS ORDERED: hydrALAZINE 20 MG/1 ML INJ IV ONE ×2 (09:45→14:55)
--- NOTE | 2020-04-03 09:48 | Emergency Department Report ---
HPI - General Chief Complaint: High BP Time Seen by Provider: 04/03/20 09:40 - HPI HPI: This is a 39-year-old female presents to the emergency department for evaluation of dialysis. Patient says that she is getting her insurance in place and does not have any assigned dialysis center yet. She says that the last time she had dialysis was about 2 weeks ago, which is about the same time that the patient started getting dialyzed. She has a right-sided chest wall permacath in place. She follows with Dr. Asencio for nephrology. The patient presents with extremely elevated blood pressure despite alleged compliance with her medications that include metoprolol, nifedipine, hydralazine and Lasix. She denies any chest pain, shortness of breath, edema, nausea, vomiting or diaphoresis. Patient has been here recently for similar issues/complaints but she had some normal labs and it was decided that she did not need emergent dialysis at that time. ED Past Medical Hx - Past Medical History Previous Medical History?: Yes Hx Hypertension: Yes Hx Heart Attack/AMI: No Hx Congestive Heart Failure: Yes Hx Renal Disease: Yes (ESRD. 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) Additional medical history: Chronic renal insufficiency - Surgical History Past Surgical History?: Yes Additional Surgical History: c section, right chest permacath - Social History Smoking Status: Never Smoker Substance Use Type: None - Medications Home Medications: Home Medications Medication Instructions Recorded Confirmed Last Taken Type Aspirin 325 mg PO QDAY #30 tablet 03/24/20 03/27/20 03/27/20 Rx Metoprolol [Lopressor TAB] 25 mg PO BID #60 tablet 03/24/20 03/27/20 03/27/20 Rx NIFEdipine XL [Procardia Xl] 60 mg PO Q12HR #60 tablet 03/24/20 03/27/20 03/27/20 Rx QUEtiapine [SEROquel] 100 mg PO QHS #15 tablet 03/24/20 03/27/20 03/27/20 Rx hydrALAZINE [Apresoline TAB] 100 mg PO Q8HR #90 tab 03/24/20 03/27/20 03/27/20 Rx Furosemide [Lasix TAB] 40 mg PO QDAY #30 tablet 03/27/20 Unknown Rx ED Review of Systems ROS: Stated complaint: DIALYSIS TREATMENT Other details as noted in HPI Comment: All other systems reviewed and negative Constitutional: denies: chills, fever Eyes: denies: eye pain, vision change ENT: denies: ear pain, throat pain Respiratory: denies: cough, shortness of breath Cardiovascular: denies: chest pain, palpitations Gastrointestinal: denies: abdominal pain, vomiting Genitourinary: denies: dysuria, discharge Musculoskeletal: denies: back pain, arthralgia Skin: denies: rash, lesions Neurological: denies: headache, weakness Physical Exam - Physical Exam Vital Signs: Vital Signs 04/03/20 09:23 Temperature 98.7 F Pulse Rate 104 H Respiratory 18 Rate Blood Pressure 213/133 O2 Sat by Pulse 98 Oximetry Physical Exam: GENERAL: The patient is well-developed well-nourished. HENT: Normocephalic. Atraumatic. Patient has moist mucous membranes. EYES: Extraocular motions are intact. NECK: Supple. Trachea is midline. CHEST/LUNGS: Clear to auscultation. There is no respiratory distress noted. Right-sided chest permacath. HEART/CARDIOVASCULAR: Regular. There is no tachycardia. ABDOMEN: Abdomen is soft, nontender. Patient has normal bowel sounds. SKIN: Skin is warm and dry. No appreciable edema. NEURO: The patient is awake, alert, and oriented. The patient is cooperative. Normal speech. MUSCULOSKELETAL: There is no tenderness or deformity. There is no limitation range of motion. ED Course Vital Signs 04/03/20 09:23 Temperature 98.7 F Pulse Rate 104 H Respiratory 18 Rate Blood Pressure 213/133 O2 Sat by Pulse 98 Oximetry - Reevaluation(s) Reevaluation #1: 04/03/20 12:21 Lab Results 04/03/20 04/03/20 Range/Units 09:28 09:28 WBC 12.1 H (4.5-11.0) K/mm3 RBC 4.00 (3.65-5.03) M/mm3 Hgb 10.5 (10.1-14.3) gm/dl Hct 32.8 (30.3-42.9) % MCV 82 (79-97) fl MCH 26 L (28-32) pg MCHC 32 (30-34) % RDW 24.7 H (13.2-15.2) % Plt Count 325 (140-440) K/mm3 Sodium 136 L (137-145) mmol/L Potassium 3.3 L (3.6-5.0) mmol/L Chloride 98.7 (98-107) mmol/L Carbon Dioxide 20 L (22-30) mmol/L Anion Gap 21 mmol/L BUN 41 H (7-17) mg/dL Creatinine 2.8 H (0.6-1.2) mg/dL Estimated GFR 23 ml/min BUN/Creatinine Ratio 15 % Glucose 110 H (65-100) mg/dL Calcium 10.5 H (8.4-10.2) mg/dL - Consultations Consultation #1: 04/03/20 11:45 I spoke with the finisher [employer] on-call, Dr. Moore. Dr. Moore would like the patient admitted to the hospital for blood pressure control and further evaluation. Dr. Moore mentioned possibly starting the patient on Aldactone and some 24-hour collection of labs. He will consult on this patient. ED Medical Decision Making - Lab Data Result diagrams: 04/03/20 09:28 04/03/20 09:28 - Medical Decision Making This patient presents to the emergency department for evaluation of the need for dialysis and for blood pressure control. Patient's labs are consistent with her chronic kidney disease or end-stage renal disease but there is no hyperkalemia. Patient was given a dose of IV hydralazine for her very elevated blood pressure with some improvement. I spoke with Dr. Moore, one of the nephrologists for [facility], who is familiar with this patient and wants the patient admitted to the hospital for blood pressure control and further evaluation. It is my intention for this patient to be admitted to the hospital for her nephrology consult, blood pressure control, and further evaluation, and the patient was presented to the admitting hospitalist, Dr. Caballero. Critical Care Time: No Critical care attestation.: If time is entered above; I have spent that time in minutes in the direct care of this critically ill patient, excluding procedure time. ED Disposition Clinical Impression: Hypertensive urgency, ESRD (end stage renal disease) Disposition: OP ADMIT IP TO THIS HOSP Is pt being admited?: Yes Condition: Fair Time of Disposition: 12:25
[2020-04-03 10:33] LABS: Hematocrit 32.8 % (30.3-42.9); Hemoglobin 10.5 gm/dl (10.1-14.3); Mean Corpuscular HGB Conc 32 % (30-34); Mean Corpuscular Volume 82 fl (79-97); Platelet Count 325 K/mm3 (140-440); Red Cell Distribution Width 24.7 % (13.2-15.2)
[2020-04-03 10:42] LABS: Calcium 10.5 mg/dL (8.4-10.2)
[2020-04-03] MEDS ORDERED: amLODIPine 10 MG TAB PO ONE (13:00)
[2020-04-03] MEDS ORDERED: METOPROLOL TARTRATE 25 MG TAB PO ONE (13:00)
[2020-04-03] MEDS ORDERED: hydrALAZINE 20 MG/1 ML INJ ONE (14:51)
[2020-04-03] MEDS ORDERED: cloNIDine 0.2 MG TAB PO ONE (16:19)
[2020-04-03] MEDS ORDERED: cloNIDine 0.2 MG TAB ONE (16:20)
[2020-04-03 18:11] VITALS: BP 148/100
--- NOTE | 2020-04-03 18:24 | Consultation ---
History of Present Illness - History of Present Illness Thank you for the consultation Patient was evaluated today My assessment and plan are as follows Renal failure: Chronic there is no acute emergent indication of renal placement therapy patient does not appear to have any evidence of hyperkalemia or acidosis volume overload, She will need to be admitted for 24 hour urine collection to make sure she does not need any further dialysis at that point her dialysis catheter can be removed Accelerated hypertension with hypokalemia highly suspicious for secondary form of hypertension such as syndromes of aldosterone excess Will check for aldosterone as well as plasma renin level patient does not appear to have any clinical history suggestive of pheochromocytoma I have adequately counseled and educated her regarding all her old issues including dietary changes lifestyle changes chronic kidney disease likely she appears to be in stage IV of chronic kidney disease If discharged tomorrow patient will need to make a follow-up appointment in our office in approximately 1 week I have told her about the treatment plan, need to do a follow-up, also need to do the labs in a timely manner We will order additional labs as required We will continue to follow and make recommendation from renal standpoint Author: Marco Moore M.D. [facility], [address] [place] [address] Tel; [phone] Source of information: From patient as well as current chart, patient has not received dialysis for several days History of present illness patient is a pleasant 39-year-old -Finnish female who has been admitted here for evaluation of renal failure, patient has not been dialyzed for the last several days and was recently advised to be admitted but left AMA, she has no complains of any chest pain or pressure or shortness of breath, or current dialysis access is a central venous catheter she does have a history of long- standing uncontrolled hypertension and often times has been told to have low potassium she has no history suggestive of any nausea or vomiting metallic taste in her mouth Events of this admissions were noted Past medical history: hypertension Renal failure Hypokalemia Current allergies: Reviewed from the current chart Social history: Reviewed from the current chart Family history: Reviewed from the current chart Review of system: Positive for uncontrolled hypertension All other review of systems negative Physical examination Vitals: Reviewed General: No acute distress HEENT: Oral mucosa moist no pallor or icterus Neck: Supple without any JVD thyromegaly or nodular mass Chest: Clear to auscultation Heart: Regular rate and rhythm S1-S2 heard no S3-S4 Abdomen: Soft nontender, bowel sounds present no renal bruit no suprapubic masses no CVA tenderness noted Extremity: Minimal edema dry skin no peripheral cyanosis Endocrine: Thyroid not enlarged Psychiatric: No agitation and aggression noted Musculoskeletal: No joint effusion noted Labs and x-rays: Reviewed from this admission Medications and Allergies Allergies Allergy/AdvReac Type Severity Reaction Status Date / Time No Known Allergies Allergy Unverified 09/05/19 10:15 Home Medications Medication Instructions Recorded Confirmed Last Taken Type Aspirin 325 mg PO QDAY #30 tablet 03/24/20 03/27/20 03/27/20 Rx Metoprolol [Lopressor TAB] 25 mg PO BID #60 tablet 03/24/20 03/27/20 03/27/20 Rx NIFEdipine XL [Procardia Xl] 60 mg PO Q12HR #60 tablet 03/24/20 03/27/20 03/27/20 Rx QUEtiapine [SEROquel] 100 mg PO QHS #15 tablet 03/24/20 03/27/20 03/27/20 Rx hydrALAZINE [Apresoline TAB] 100 mg PO Q8HR #90 tab 03/24/20 03/27/20 03/27/20 Rx Furosemide [Lasix TAB] 40 mg PO QDAY #30 tablet 03/27/20 Unknown Rx cloNIDine [Catapres] 0.2 mg PO BID #60 tablet 04/03/20 Unknown Rx Exam - Vital Signs Vital signs: Vital Signs Temp Pulse Resp BP Pulse Ox 98.7 F 104 H 18 213/133 98 04/03/20 09:23 04/03/20 09:23 04/03/20 09:23 04/03/20 09:23 04/03/20 09:23 Results - Lab Results 04/03/20 09:28 04/03/20 18:42 Most recent lab results Calcium 10.5 mg/dL (8.4-10.2) H 04/03/20 09:28
[2020-04-03] MEDS ORDERED: SPIRONOLACTONE 25 MG TAB PO ONE (18:26)
--- NOTE | 2020-04-04 08:26 | Progress Note ---
Objective - Lab 04/03/20 09:28 04/03/20 18:42 Most recent lab results Calcium 10.5 mg/dL (8.4-10.2) H 04/03/20 09:28 Medications & Allergies - Medications Allergies/Adverse Reactions: Allergies No Known Allergies Allergy (Unverified 09/05/19 10:15) Home Medications: Home Medications Medication Instructions Recorded Confirmed Last Taken Type Aspirin 325 mg PO QDAY #30 tablet 03/24/20 03/27/20 03/27/20 Rx Metoprolol [Lopressor TAB] 25 mg PO BID #60 tablet 03/24/20 03/27/20 03/27/20 Rx NIFEdipine XL [Procardia Xl] 60 mg PO Q12HR #60 tablet 03/24/20 03/27/20 03/27/20 Rx QUEtiapine [SEROquel] 100 mg PO QHS #15 tablet 03/24/20 03/27/20 03/27/20 Rx hydrALAZINE [Apresoline TAB] 100 mg PO Q8HR #90 tab 03/24/20 03/27/20 03/27/20 Rx Furosemide [Lasix TAB] 40 mg PO QDAY #30 tablet 03/27/20 Unknown Rx cloNIDine [Catapres] 0.2 mg PO BID #60 tablet 04/03/20 Unknown Rx
[2020-04-04] MEDS ORDERED: METOPROLOL TARTRATE 50 MG TAB PO ONE (08:27)
--- NOTE | 2020-04-05 21:34 | Event Note ---
came to see the patient in the ER around 11:45 in the morning today Found out the patient has already been discharged by the physician I was not informed about the patient discharge, when I had seen her on the day of evaluation I had given her my contact information should which she entered and the phone and I did tell her that she needs to make an appointment in our office next week after the discharge patient had agreed to do so
== END 2020-04-03 18:43 | disposition admitted as inpatient to this hospital (09) ==
LOC: ED 09:14
DX: I16.0 Hypertensive urgency (principal); I12.0 Hypertensive chronic kidney disease with stage 5 chronic kidney disease or end stage renal disease; N18.6 End stage renal disease; Z79.899 Other long term (current) drug therapy; Z79.82 Long term (current) use of aspirin
CPT/HCPCS: 36415; 80048; 82565; 85027; 96374; 96376; 99283; J0360; 96375

== ENCOUNTER 2020-04-15 08:24 | Emergency (ER) | payer SELFPAY ==
[2020-04-15 08:42] VITALS: BP 175/105
[2020-04-15 09:17] LABS: Hematocrit 32.1 % (30.3-42.9); Hemoglobin 10.4 gm/dl (10.1-14.3); Mean Corpuscular HGB Conc 32 % (30-34); Mean Corpuscular Volume 83 fl (79-97); Platelet Count 398 K/mm3 (140-440); Red Blood Count 3.87 M/mm3 (3.65-5.03)
[2020-04-15 09:21] LABS: Red Cell Distribution Width 22.2 % (13.2-15.2)
[2020-04-15 09:36] LABS: Albumin 3.8 g/dL (3.9-5); Calcium 10.5 mg/dL (8.4-10.2)
== END 2020-04-15 13:36 | disposition left against medical advice (07) ==
LOC: ED 08:24
DX: Z99.2 Dependence on renal dialysis (principal); Z53.21 Procedure and treatment not carried out due to patient leaving prior to being seen by health care provider
CPT/HCPCS: 36415; 80053; 85027

== ENCOUNTER 2020-04-20 09:23 | Emergency (ER) | payer SELFPAY ==
[2020-04-20 11:12] LABS: Albumin 3.8 g/dL (3.9-5); Calcium 10.6 mg/dL (8.4-10.2)
[2020-04-20 12:06] VITALS: BP 192/101
--- NOTE | 2020-04-20 12:33 | Emergency Department Report ---
ED General Adult HPI - General Chief complaint: Medical Clearance Stated complaint: NEED BLOOD WORK Time Seen by Provider: 04/20/20 11:23 Source: patient Mode of arrival: Ambulatory Limitations: No Limitations - History of Present Illness Initial comments: This is a pleasant 39-year-old female who presents the emergency department with a chief complaint of "I need to have labs checked to see if I need dialysis." Patient has been admitted 2 weeks ago for acute renal failure and was on dialysis in the hospital. She has a catheter in the right side of her chest for access. She has an appointment with manufacturing quality manager Dr. Asencio on the of this month but was told by his office to come into the ER to get labs drawn prior to that appointment. She denies any symptoms. She denies any shortness of breath, leg swelling, and reports she feels normal. She has been compliant with her medications that she was discharged with. - Related Data Previous Rx's Medication Instructions Recorded Last Taken Type Aspirin 325 mg PO QDAY #30 tablet 03/24/20 03/27/20 Rx Furosemide [Lasix TAB] 40 mg PO QDAY #30 tablet 04/20/20 Unknown Rx Metoprolol [Lopressor TAB] 25 mg PO BID #60 tablet 04/20/20 Unknown Rx NIFEdipine XL [Procardia Xl] 60 mg PO Q12HR #60 tablet 04/20/20 Unknown Rx QUEtiapine [SEROquel] 100 mg PO QHS #15 tablet 04/20/20 Unknown Rx cloNIDine [Catapres] 0.2 mg PO BID #60 tablet 04/20/20 Unknown Rx hydrALAZINE [Apresoline TAB] 100 mg PO Q8HR #90 tab 04/20/20 Unknown Rx Allergies Allergy/AdvReac Type Severity Reaction Status Date / Time No Known Allergies Allergy Unverified 09/05/19 10:15 ED Review of Systems ROS: Stated complaint: NEED BLOOD WORK Other details as noted in HPI Comment: All other systems reviewed and negative Constitutional: denies: chills, fever Eyes: denies: eye pain, eye discharge, vision change ENT: denies: ear pain, throat pain Respiratory: denies: cough, shortness of breath, wheezing Cardiovascular: denies: chest pain, palpitations Endocrine: no symptoms reported Gastrointestinal: denies: abdominal pain, nausea, diarrhea Genitourinary: denies: urgency, dysuria, discharge Musculoskeletal: denies: back pain, joint swelling, arthralgia Skin: denies: rash, lesions Neurological: denies: headache, weakness, paresthesias Psychiatric: denies: anxiety, depression Hematological/Lymphatic: denies: easy bleeding, easy bruising ED Past Medical Hx - Past Medical History Previous Medical History?: Yes Hx Hypertension: Yes Hx Heart Attack/AMI: No Hx Congestive Heart Failure: Yes Hx Renal Disease: Yes (ESRD. 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) Additional medical history: Chronic renal insufficiency - Surgical History Past Surgical History?: Yes Additional Surgical History: c section, right chest permacath - Social History Smoking Status: Never Smoker Substance Use Type: None - Medications Home Medications: Home Medications Medication Instructions Recorded Confirmed Last Taken Type Aspirin 325 mg PO QDAY #30 tablet 03/24/20 03/27/20 03/27/20 Rx Furosemide [Lasix TAB] 40 mg PO QDAY #30 tablet 04/20/20 Unknown Rx Metoprolol [Lopressor TAB] 25 mg PO BID #60 tablet 04/20/20 Unknown Rx NIFEdipine XL [Procardia Xl] 60 mg PO Q12HR #60 tablet 04/20/20 Unknown Rx QUEtiapine [SEROquel] 100 mg PO QHS #15 tablet 04/20/20 Unknown Rx cloNIDine [Catapres] 0.2 mg PO BID #60 tablet 04/20/20 Unknown Rx hydrALAZINE [Apresoline TAB] 100 mg PO Q8HR #90 tab 04/20/20 Unknown Rx ED Physical Exam - General Limitations: No Limitations General appearance: alert, in no apparent distress - Head Head exam: Present: atraumatic, normocephalic - Eye Eye exam: Present: normal appearance, PERRL, EOMI Pupils: Present: normal accommodation - ENT ENT exam: Present: normal exam, normal orophraynx, mucous membranes moist - Neck Neck exam: Present: normal inspection, full ROM. Absent: tenderness, meningismus - Respiratory Respiratory exam: Present: normal lung sounds bilaterally, other (There is a catheter in the right upper chest wall with no erythema. Biopatch and Tegaderm intact). Absent: respiratory distress, wheezes, rales, rhonchi, stridor - Cardiovascular Cardiovascular Exam: Present: regular rate, normal rhythm, normal heart sounds. Absent: systolic murmur, diastolic murmur, rubs, gallop - GI/Abdominal GI/Abdominal exam: Present: soft, normal bowel sounds. Absent: distended, tenderness, guarding, rebound, rigid - Extremities Exam Extremities exam: Present: normal inspection, full ROM, normal capillary refill. Absent: tenderness - Back Exam Back exam: Present: normal inspection, full ROM. Absent: tenderness, CVA tenderness (R), CVA tenderness (L) - Neurological Exam Neurological exam: Present: alert, oriented X3, CN II-XII intact, normal gait - Psychiatric Psychiatric exam: Present: normal affect, normal mood - Skin Skin exam: Present: warm, dry, intact, normal color. Absent: rash ED Course Vital Signs 04/20/20 04/20/20 09:56 11:34 Temperature 97.9 F Pulse Rate 76 Respiratory 20 18 Rate Blood Pressure 192/101 O2 Sat by Pulse 98 99 Oximetry - Consultations Consultation #1: 04/20/20 12:32 spoke to nurse practitioner Brea who works with Dr. coleman (nephrology). We reviewed presentation, vitals and labs and she will call back after speaking to Dr. Coleman Consultation #2: 04/20/20 12:46 I spoke with nurse practitioner Brea who spoke with Dr. Asencio and reviewed the case and Dr. Asencio recommended we discharged the patient from the emergency department and he will follow up with her on 04/27 as planned. She agreed with refilling medication. Patient did not require emergent dialysis. 04/20/20 12:47 ED Medical Decision Making - Lab Data Result diagrams: 04/20/20 10:09 Lab Results 04/20/20 Range/Units 10:09 Sodium 136 L (137-145) mmol/L Potassium 3.5 L (3.6-5.0) mmol/L Chloride 96.2 L (98-107) mmol/L Carbon Dioxide 27 (22-30) mmol/L Anion Gap 16 mmol/L BUN 35 H (7-17) mg/dL Creatinine 2.7 H (0.6-1.2) mg/dL Estimated GFR 24 ml/min BUN/Creatinine Ratio 13 % Glucose 106 H (65-100) mg/dL Calcium 10.6 H (8.4-10.2) mg/dL Total Bilirubin 0.30 (0.1-1.2) mg/dL AST 12 (5-40) units/L ALT 11 (7-56) units/L Alkaline Phosphatase 84 (35-129) units/L Total Protein 7.4 (6.3-8.2) g/dL Albumin 3.8 L (3.9-5) g/dL Albumin/Globulin Ratio 1.1 % - Medical Decision Making Patient is nontoxic in no acute distress. She is hypertensive but after further questioning she has been rationing her blood pressure medication. Will refill her medication and recommend she follow-up with her manufacturing quality manager Dr. Asencio which she has an appointment in 7 days. She was given return precautions for any shortness of breath, weakness or any pain in the chest or palpitations. She will be given blood pressure refills and discharged in stable condition. I did discuss with attending physician who agreed with this plan. - Differential Diagnosis CKD, hypertensive urgency, ESRD Critical care attestation.: If time is entered above; I have spent that time in minutes in the direct care of this critically ill patient, excluding procedure time. ED Disposition Clinical Impression: Uncontrolled hypertension, Renal insufficiency Disposition: TO HOME OR SELFCARE Is pt being admited?: No Condition: Stable Instructions: Hypertension (ED), Food Basics for Chronic Kidney Disease Prescriptions: QUEtiapine [SEROquel] 100 mg PO QHS #15 tablet hydrALAZINE [Apresoline TAB] 100 mg PO Q8HR #90 tab cloNIDine [Catapres] 0.2 mg PO BID #60 tablet Furosemide [Lasix TAB] 40 mg PO QDAY #30 tablet Metoprolol [Lopressor TAB] 25 mg PO BID #60 tablet NIFEdipine XL [Procardia Xl] 60 mg PO Q12HR #60 tablet Referrals: GUSTAVO COLEMAN MD [Staff Physician] - 3-5 Days Time of Disposition: 12:48
== END 2020-04-20 13:23 | disposition home or self-care (01) ==
LOC: ED 09:23
DX: I10 Essential (primary) hypertension (principal); N28.9 Disorder of kidney and ureter, unspecified; I13.2 Hypertensive heart and chronic kidney disease with heart failure and with stage 5 chronic kidney disease, or end stage renal disease; N18.6 End stage renal disease; I50.9 Heart failure, unspecified
CPT/HCPCS: 36415; 80053; 99283

== ENCOUNTER 2020-05-06 08:57 | Emergency (ER) | payer SELFPAY ==
[2020-05-06 09:09] VITALS: BP 149/85
[2020-05-06 10:07] LABS: Hematocrit 35.2 % (30.3-42.9); Hemoglobin 11.7 gm/dl (10.1-14.3); Mean Corpuscular HGB Conc 33 % (30-34); Mean Corpuscular Volume 85 fl (79-97); Platelet Count 406 K/mm3 (140-440); Red Blood Count 4.13 M/mm3 (3.65-5.03); Red Cell Distribution Width 18.1 % (13.2-15.2)
[2020-05-06 10:30] LABS: Albumin 4.2 g/dL (3.9-5); Calcium 11.3 mg/dL (8.4-10.2)
[2020-05-06 10:46] LABS: Total Cells Counted 100
[2020-05-06 10:48] LABS: Platelet Estimate Consistent w Auto
--- NOTE | 2020-05-06 11:09 | Emergency Department Report ---
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 Patient has no other complaints. Patient is a dialysis patient Monday and Fridays followed by [facility] - Exam Vital Signs: Vital Signs 05/06/20 09:05 Temperature 98.6 F Pulse Rate 95 H Respiratory 18 Rate Blood Pressure 149/85 O2 Sat by Pulse 98 Oximetry Physical Exam: Alert and oriented x3 no acute distress nontoxic in appearance Nonlabored breathing Ambulatory without difficulties MSE screening note: Focused history and physical exam performed. 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 Patient has no other complaints. Patient is a dialysis patient Monday and Fridays followed by [facility] Patient came to the ER accidentally thinking that she can have her outpatient labs done here. I took the time to call [facility] and they stated that she needed to go to outpatient lab and need to have several other labs that were needed except a CBC and a CMP that was performed here in the ER. Patient is aware that she has a virtual appointment on May 11, 2020. Spoke to hope that [facility] she is faxing in the request for other labs. Patient is going to to have labs done today patient has no other complaints she will be discharged in a stable condition. ED Disposition for MSE Condition: Stable
== END 2020-05-06 11:08 | disposition home or self-care (01) ==
LOC: ED 08:57
DX: I10 Essential (primary) hypertension (principal)
CPT/HCPCS: 36415; 80053; 85007; 85025; 99283

== ENCOUNTER 2020-06-03 11:20 | Outpatient (CLI) | payer MEDICAID ==
[2020-06-03 12:26] LABS: Bilirubin,Urine NEG (Negative); Blood,Urine NEG (Negative); Color,Urine Yellow (Yellow); Protein,Urine >500 mg/dL (Negative); Urobilinogen,Urine < 2.0 mg/dL (<2.0)
[2020-06-03 12:27] LABS: Albumin 4.4 g/dL (3.9-5); Calcium 10.9 mg/dL (8.4-10.2)
[2020-06-03 13:12] LABS: Creatinine,Urine 135.3 mg/dL (0.1-20.0)
[2020-06-03 13:25] LABS: Protein/Creatinine Ratio,Urine 1.57
[2020-06-07 06:26] LABS: Albumin 4.5 g/dL (3.8-4.8); Gamma Globulin 1.6 g/dL (0.8-1.7)
[2020-06-07 12:46] LABS: Vitamin D, 25-OH, D2 <4 ng/mL
== END 2020-06-03 11:21 | disposition home or self-care (01) ==
LOC: LAB 11:20
PROVIDERS: ATTEND Student in an Organized Health Care Education/Training Program
DX: R31.9 Hematuria, unspecified (principal); I10 Essential (primary) hypertension; R94.4 Abnormal results of kidney function studies; E66.9 Obesity, unspecified; R80.9 Proteinuria, unspecified; E83.52 Hypercalcemia
CPT/HCPCS: 36415; 80048; 81001; 82040; 82306; 82570; 84100; 84156; 84165; 86038

== ENCOUNTER 2020-07-16 10:24 | Outpatient (CLI) | payer MEDICAID ==
[2020-07-16 11:08] LABS: Albumin 4.1 g/dL (3.9-5); Calcium 9.8 mg/dL (8.4-10.2)
== END 2020-07-16 10:25 | disposition home or self-care (01) ==
LOC: LAB 10:24
PROVIDERS: ATTEND Student in an Organized Health Care Education/Training Program
DX: I12.9 Hypertensive chronic kidney disease with stage 1 through stage 4 chronic kidney disease, or unspecified chronic kidney disease (principal); R94.4 Abnormal results of kidney function studies; E66.9 Obesity, unspecified; R31.9 Hematuria, unspecified; R80.9 Proteinuria, unspecified; E83.52 Hypercalcemia; N18.30 Chronic kidney disease, stage 3 unspecified
CPT/HCPCS: 36415; 80048; 82040; 82306; 83970; 84100

== ENCOUNTER 2020-11-06 09:24 | Outpatient (CLI) | payer MEDICAID ==
[2020-11-06 09:57] LABS: Bilirubin,Urine NEG (Negative); Blood,Urine NEG (Negative); Color,Urine Yellow (Yellow); Mucus,Urine FEW /HPF; Urobilinogen,Urine < 2.0 mg/dL (<2.0)
[2020-11-06 10:13] LABS: Protein,Urine >500 mg/dL (Negative)
[2020-11-06 10:17] LABS: Albumin 4.6 g/dL (3.9-5)
[2020-11-06 11:25] LABS: Protein/Creatinine Ratio,Urine 2.49
[2020-11-11 12:21] LABS: ANA Screen, IFA Positive (Negative)
== END 2020-11-06 09:25 | disposition home or self-care (01) ==
LOC: LAB 09:24
PROVIDERS: ATTEND Student in an Organized Health Care Education/Training Program
DX: I12.9 Hypertensive chronic kidney disease with stage 1 through stage 4 chronic kidney disease, or unspecified chronic kidney disease (principal); N18.30 Chronic kidney disease, stage 3 unspecified; R94.4 Abnormal results of kidney function studies; E66.9 Obesity, unspecified; R31.9 Hematuria, unspecified; R80.9 Proteinuria, unspecified; E83.52 Hypercalcemia
CPT/HCPCS: 36415; 80048; 81001; 82040; 82570; 84100; 84156; 86038

== ENCOUNTER 2021-02-23 15:27 | Emergency (ER) | payer MEDICAID ==
--- NOTE | 2021-02-23 16:44 | Emergency Department Report ---
ED General Adult HPI - General Stated complaint: BACK PAIN Time Seen by Provider: 02/23/21 16:43 - History of Present Illness Initial comments: Patient presented with bilateral flank pain and abdominal pain. She has had this for the last couple of days. Last time this happened, she had renal failure. She came in for evaluation because she was concerned for possible renal failure. She was not on dialysis. She is never had dialysis. She has not been taking lots of NSAIDs lately. She has had no hematemesis or coffee- ground emesis. There is no melanotic stool. She has had no dysuria or frequency. There is no fever. Pain in the back and abdomen is described as aching and cramping. - Related Data Previous Rx's Medication Instructions Recorded Last Taken Type Aspirin 325 mg PO QDAY #30 tablet 03/24/20 03/27/20 Rx Furosemide [Lasix TAB] 40 mg PO QDAY #30 tablet 04/20/20 Unknown Rx Metoprolol [Lopressor TAB] 25 mg PO BID #60 tablet 04/20/20 Unknown Rx NIFEdipine XL [Procardia Xl] 60 mg PO Q12HR #60 tablet 04/20/20 Unknown Rx QUEtiapine [SEROquel] 100 mg PO QHS #15 tablet 04/20/20 Unknown Rx cloNIDine [Catapres] 0.2 mg PO BID #60 tablet 04/20/20 Unknown Rx hydrALAZINE [Apresoline TAB] 100 mg PO Q8HR #90 tab 04/20/20 Unknown Rx Dicyclomine [Bentyl] 20 mg PO QID PRN #20 tablet 02/23/21 Unknown Rx Ondansetron [Zofran Odt] 4 mg PO Q8HR PRN #20 tab.rapdis 02/23/21 Unknown Rx Allergies Allergy/AdvReac Type Severity Reaction Status Date / Time No Known Allergies Allergy Unverified 09/05/19 10:15 ED Review of Systems ROS: Stated complaint: BACK PAIN Other details as noted in HPI Comment: All other systems reviewed and negative Eyes: denies: eye pain ENT: denies: throat pain Respiratory: denies: cough Cardiovascular: denies: chest pain Endocrine: denies: unexplained weight loss Gastrointestinal: as per HPI Genitourinary: denies: dysuria Musculoskeletal: as per HPI Skin: denies: rash Neurological: denies: headache Hematological/Lymphatic: denies: easy bruising ED Past Medical Hx - Past Medical History Hx Hypertension: Yes Hx Heart Attack/AMI: No Hx Congestive Heart Failure: Yes Hx Renal Disease: Yes (ESRD. 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) Additional medical history: Chronic renal insufficiency - Surgical History Additional Surgical History: c section, right chest permacath - Family History Family history: hypertension - Social History Smoking Status: Never Smoker - Medications Home Medications: Home Medications Medication Instructions Recorded Confirmed Last Taken Type Aspirin 325 mg PO QDAY #30 tablet 03/24/20 03/27/20 03/27/20 Rx Furosemide [Lasix TAB] 40 mg PO QDAY #30 tablet 04/20/20 Unknown Rx Metoprolol [Lopressor TAB] 25 mg PO BID #60 tablet 04/20/20 Unknown Rx NIFEdipine XL [Procardia Xl] 60 mg PO Q12HR #60 tablet 04/20/20 Unknown Rx QUEtiapine [SEROquel] 100 mg PO QHS #15 tablet 04/20/20 Unknown Rx cloNIDine [Catapres] 0.2 mg PO BID #60 tablet 04/20/20 Unknown Rx hydrALAZINE [Apresoline TAB] 100 mg PO Q8HR #90 tab 04/20/20 Unknown Rx Dicyclomine [Bentyl] 20 mg PO QID PRN #20 tablet 02/23/21 Unknown Rx Ondansetron [Zofran Odt] 4 mg PO Q8HR PRN #20 tab.rapdis 02/23/21 Unknown Rx ED Physical Exam - General Limitations: No Limitations, Other ( Pulse ox is noted to normal. She is not hypoxic.) General appearance: alert, in no apparent distress - Head Head exam: Present: atraumatic, normocephalic, normal inspection - Eye Eye exam: Present: normal appearance, EOMI. Absent: scleral icterus - ENT ENT exam: Present: normal exam, normal orophraynx, mucous membranes moist - Neck Neck exam: Present: normal inspection. Absent: meningismus - Respiratory Respiratory exam: Present: normal lung sounds bilaterally. Absent: respiratory distress - Cardiovascular Cardiovascular Exam: Present: regular rate, normal rhythm - GI/Abdominal GI/Abdominal exam: Present: soft. Absent: distended, tenderness, pulsatile mass - Extremities Exam Extremities exam: Present: normal capillary refill. Absent: pedal edema - Back Exam Back exam: Absent: CVA tenderness (R), CVA tenderness (L) - Neurological Exam Neurological exam: Present: alert, oriented X3, normal gait. Absent: motor sensory deficit - Psychiatric Psychiatric exam: Present: normal affect, normal mood - Skin Skin exam: Present: warm, dry ED Course Vital Signs 02/23/21 02/23/21 16:41 18:24 Temperature 99 F Pulse Rate 103 H 92 H Respiratory 18 Rate Blood Pressure 265/176 265/154 O2 Sat by Pulse 98 Oximetry - Reevaluation(s) Reevaluation #1: 02/23/21 16:44 labs were ordered. Reevaluation #2: 02/23/21 17:03 Blood pressure was noted. Labetalol was ordered. Reevaluation #3: 02/23/21 19:46 Patient was feeling better. Blood pressure improved. Labs are noted. Patient can be discharged safely. There is no evidence of hypertensive emergency or endorgan damage based on blood pressure alone. ED Medical Decision Making - Lab Data Result diagrams: 02/23/21 17:01 02/23/21 17:01 - Medical Decision Making Patient presents with flank pain and abdominal pain. She had concern for renal failure. She does have evidence of an acute kidney injury but does not have evidence of overt renal failure. She does not have any metabolic derangement or electrolyte derangement. She does not require admission. She does not require dialysis. We discussed ongoing management. She has been hydrated here. She can follow-up with repeat laboratory evaluation. She does not appear to be septic or toxic. She has no infectious symptoms. There is no peritoneal findings on exam. Critical Care Time: No Critical care attestation.: If time is entered above; I have spent that time in minutes in the direct care of this critically ill patient, excluding procedure time. ED Disposition Clinical Impression: JUANIS (acute kidney injury), Bilateral flank pain, Generalized abdominal pain Disposition: HOME / SELF CARE / HOMELESS Is pt being admited?: No Does the pt Need Aspirin: No Condition: Stable Instructions: Abdominal Pain, Adult, [id number], Flank Pain, Adult, [id number], Acute Kidney Injury, Adult Additional Instructions: Drink plenty water. Avoid nonsteroidals like ibuprofen. Follow-up with your regular doctor for recheck. Do not eat salt. Prescriptions: Dicyclomine [Bentyl] 20 mg PO QID PRN #20 tablet PRN Reason: pain Ondansetron [Zofran Odt] 4 mg PO Q8HR PRN #20 tab.rapdis PRN Reason: Nausea Referrals: PRIMARY CAREMD [Referring] - 3-5 Days HORACIO SILVER MD [Staff Physician] - 3-5 Days
[2021-02-23 17:24] LABS: Hematocrit 31.3 % (30.3-42.9); Hemoglobin 9.7 gm/dl (10.1-14.3); Mean Corpuscular HGB Conc 31 % (30-34); Mean Corpuscular Volume 74 fl (79-97); Platelet Count 516 K/mm3 (140-440); Red Blood Count 4.25 M/mm3 (3.65-5.03); Red Cell Distribution Width 16.3 % (13.2-15.2)
[2021-02-23 17:36] LABS: Calcium 10.5 mg/dL (8.4-10.2)
[2021-02-23] MEDS ORDERED: SODIUM CHLORIDE 0.9% 1000 ML 1,000 ML IV ONE (18:16)
[2021-02-23 18:29] VITALS: BP 265/154
--- NOTE | 2021-02-24 10:05 | Electrocardiograph Report ---
[facility] Test Date: 2021-02-23 Test Time: 16:57:36 Pat Name: LEO WELLS Department: Room: Gender: F Equine Dentist: LATANYA : 1980 Requested By: STEPHANIE MORRISON Order Number: [id number] Reading MD: Emeka Palma Measurements Intervals [place] Rate: 86 P: 25 PA: 169 QRS: 3 QRSD: 115 T: 139 QT: 427 QTc: 510 Interpretive Statements Sinus rhythm Probable left atrial enlargement LVH with IVCD and secondary repol abnrm Anterior ST elevation, probably due to LVH No previous ECG available for comparison Electronically Signed On 02-24-2021 10:05:03 EDT by Emeka Palma
== END 2021-02-23 21:28 | disposition home or self-care (01) ==
LOC: ED 15:27
DX: R10.84 Generalized abdominal pain (principal); I13.2 Hypertensive heart and chronic kidney disease with heart failure and with stage 5 chronic kidney disease, or end stage renal disease; N18.6 End stage renal disease; N17.9 Acute kidney failure, unspecified; Z98.890 Other specified postprocedural states
CPT/HCPCS: 36415; 80048; 85027; 93005; 96361; 96374; 99284; J7030